=== PATIENT | male | born 1985 | race Hispanic/Latino ===

== ENCOUNTER 2020-02-18 13:26 | Inpatient (IN) | payer SELFPAY, OTHER ==
[~2020-02-18] VITALS: Ht 180.3 cm; Wt 105.4 kg
[2020-02-18] MEDS ORDERED: SODIUM CHLORIDE 0.9% 1000ML 1,000 ML IV STA ×2 (13:32→16:57)
[2020-02-18] MEDS ORDERED: CEFTRIAXONE SOD 1 GM/NS 50 ML 50 ML IV STA (13:37)
--- NOTE | 2020-02-18 13:49 | NUR ---
Pt placed on NRB mask, O2 sat up to 97%.
[2020-02-18] MEDS ORDERED: ACETAMINOPHEN 325 MG TAB PO ONE (14:00)
--- NOTE | 2020-02-18 14:00 | NUR ---
Pt taken to rm 3, 100% NRB applied, sats increased to 100% from 61% RA. 12 lead ekg performed, RT at bedside performed ABG. Temp orally 101.1. CM applied. PIV inserted, blood specimens obtained, blood cultures x 2 and respiratory testing and covid 19. Pt in no acute distress, appears flushed.
[2020-02-18 14:24] LABS: BASOPHILS % 0.3 % (0.0-1.0); HEMATOCRIT 44.6 % (38.2-49.6); LYMPHOCYTES # (AUTO) 0.4 (1.0-3.2); LYMPHOCYTES % 11.1 % (18.0-39.1); MEAN CORPUSCULAR HGB CONC 33.6 g/dL (31-35); MEAN CORPUSCULAR VOLUME 77.3 fL (81-99); MONOCYTES # (AUTO) 0.3 (0.2-0.8); MONOCYTES % 7.5 % (4.4-11.3); NEUTROPHILS # (AUTO) 3.2 (2.1-6.9); NEUTROPHILS % 79.8 % (38.7-80.0); PLATELET COUNT 241 x10e3/uL (140-360); RED BLOOD COUNT 5.77 x10e6/uL (4.3-5.7); RED CELL DISTRIBUTION WIDTH 13.9 % (11.7-14.4)
[2020-02-18 15:30] LABS: ABG HCO3 23 mmol/L (23-28); ABG PCO2 34 mmHg (41-51); ABG PH 7.44 (7.31-7.41)
[2020-02-18 15:34] LABS: CLARITY,URINE CLEAR (CLEAR); COLOR,URINE YELLOW (YELLOW); LEUKOCYTE ESTERASE ,URINE NEGATIVE (NEGATIVE); NITRITE,URINE NEGATIVE (NEGATIVE); PROTEIN,URINE DIPSTICK 1+ (NEGATIVE)
[2020-02-18 15:35] LABS: BILIRUBIN,URINE NEGATIVE (NEGATIVE); KETONES,URINE NEGATIVE (NEGATIVE); URINE UROBILINOGEN 0.2 mg/dL (0.2 - 1)
[2020-02-18 15:48] LABS: INFLUENZAE A&B ANTIGEN (RAPID) NEGATIVE (NEGATIVE)
[2020-02-18 15:49] LABS: STREPTOCOCCUS GRP A ANTIGEN NEGATIVE (NEGATIVE)
[2020-02-18 15:52] LABS: BACTERIA,URINE RARE /HPF; EPITHELIAL CELLS,URINE FEW /LPF
[2020-02-18 16:38] LABS: ALANINE AMINOTRANSFERASE 49 IU/L (0-55); ALBUMIN 3.2 g/dL (3.5-5.0); ALBUMIN/GLOBULIN RATIO 0.7 (0.8-2.0); ALKALINE PHOSPHATASE 68 IU/L (40-150); ANION GAP 18.3 mmol/L (8-16); BLOOD UREA NITROGEN 19 mg/dL (7-26); BUN/CREATININE RATIO 12 (6-25); CALCIUM 8.6 mg/dL (8.4-10.2); CARBON DIOXIDE 24 mmol/L (22-29); CHLORIDE 94 mmol/L (98-107); CREATINE KINASE 162 IU/L (30-200); CREATININE, SERUM 1.55 mg/dL (0.72-1.25); EST GLOMERULAR FILTRATION RATE 51 ML/MIN (60-); GLUCOSE 393 mg/dL (74-118); POTASSIUM 4.3 mmol/L (3.5-5.1); SODIUM 132 mmol/L (136-145)
[2020-02-18] MEDS ORDERED: SODIUM CHLORIDE 0.9% 1000ML 1,000 ML IV SCH (18:36)
--- NOTE | 2020-02-18 18:40 | Diagnostic Imaging Report ---
EXAMINATION: CT scan of the chest with contrast. TECHNIQUE: Helical CT images of the chest were performed from the lung apices to the level of the adrenal glands after the intravenous administration of 100 cc of Isovue 300. Coronal and sagittal reformatted images were obtained. Dose modulation, iterative reconstruction, and/or weight based adjustment of the mA/kV was utilized to reduce the radiation dose to as low as reasonably achievable. COMPARISON: None. CLINICAL HISTORY:Chest pain shortness breath DISCUSSION: LINES/TUBES: None. LUNGS AND AIRWAYS: Multifocal groundglass opacities throughout the lungs extending to the periphery with some areas of central sparing. PLEURA: No pneumothorax or pleural effusions. HEART AND MEDIASTINUM: The thyroid gland is normal. The heart and pericardium are within normal limits. LYMPH NODES: There is no mediastinal, hilar or axillary lymphadenopathy. ABDOMEN: Hepatic steatosis. BONES AND SOFT TISSUES: No acute bony abnormalities. IMPRESSION: Multifocal groundglass opacities throughout the lungs reflective of multifocal pneumonia. Pattern reported in viral pneumonitis. Isolation recommended. No pulmonary embolism. Signed by: Dr. Kingston Sargent M.D. on 02/18/2020 6:37 PM
[2020-02-18] MEDS ORDERED: INSULIN REGULAR, HUMAN 100 UNIT/1 ML 3ML VIAL IV ONE (18:45)
[2020-02-18] MEDS ORDERED: DEXTROSE 50% SYRINGE 50 ML IV PRN ×2 (18:45→19:30)
--- OUTSIDE RECORDS SUMMARY | 2020-02-18 18:52 | XMS REPORT ---
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 Allergies, Adverse Reactions, Alerts This patient has no known allergies or adverse reactions. Medications This patient has no known medications. Results Test Description Test Time Test Comments Text Results Atomic Results Result Comments CT CHEST W 2020-02-18 18:30:00 [place] [address] Patient Name: SUKHDEEP TINOCO MR #: [id number] : 1985 Age/Sex: 35/M Req #: [id number] Adm Physician: Ordered by: ERICH GREGG BRICKLAYER HELPER Report #: [id number] Location: ER Room/Bed: Procedure: [id number] CT/CT CHEST W Exam Date: 02/18/20 Exam Time: 1800 REPORT STATUS: Signed EXAMINATION: CT scan of the chest with contrast. TECHNIQUE: Helical CT images of the chest were performed from the lung apices to the level of the adrenal glands after the intravenous administration of 100 cc of Isovue 300. Coronal and sagittal reformatted images were obtained. Dose modulation, iterative reconstruction, and/or weight based adjustment of the mA/kV was utilized to reduce the radiation dose to as low as reasonably achievable. COMPARISON: None. CLINICAL HISTORY:Chest pain shortness breath DISCUSSION: LINES/TUBES: None. LUNGS AND AIRWAYS: Multifocal groundglass opacities throughout the lungs extending to the periphery with some areas of central sparing. PLEURA: No pneumothorax or pleural effusions. HEART AND MEDIASTINUM: The thyroid gland is normal. The heart and pericardium are within normal limits. LYMPH NODES: There is no mediastinal, hilar or axillary lymphadenopathy. ABDOMEN: Hepatic steatosis. BONES AND SOFT TISSUES: No acute bony abnormalities. IMPRES JAIRO: Multifocal groundglass opacities throughout the lungs reflective of multifocal pneumonia. Pattern reported in viral pneumonitis. Isolation recommended. No pulmonary embolism. Signed by: Dr. Edelmira Orellana M.D. on 02/18/2020 6:37 PM Dictated By: EDELMIRA ORELLANA MD 36 Transcribed By: JOANN on 02/18/201836 COPY TO: ERICH GREGG NP
--- NOTE | 2020-02-18 19:39 | NUR ---
Nursing report given to Mckenzie ROB in ICU.
--- NOTE | 2020-02-18 20:09 | Consultation ---
DATE OF CONSULTATION: Pulmonary Critical Care Consultation HISTORY OF PRESENT ILLNESS: The patient is a 35-year-old man. He has a history of diabetes, but has not been taking his medications recently. Six days ago, he developed headache. He subsequently developed some malaise and fatigue over the past several days. He had mild cough. He denies any fever at home. He went to Dr. Ferguson's office because of dizziness. He was noted to have a low saturation on his pulse oximeter as well as a fever and was sent to the emergency department. After arriving in the emergency department, he received supplemental oxygen along with IV fluids. He also received CT scan, which showed scattered infiltrates, suspicious for COVID-19. PAST SURGICAL HISTORY: History of hand surgery in 2017. PAST MEDICAL HISTORY: 1. Diabetes. 2. No prior history of asthma or other respiratory problems. SOCIAL HISTORY: The patient is not a smoker. He was an occasional drinker, but has not had anything to drink in the last month. 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 He lives with his brother. He has no recent travel. ALLERGIES: THERE ARE NO KNOWN DRUG ALLERGIES. REVIEW OF SYSTEMS: The patient denies fever at home, but he is afebrile here in the emergency department. He did have a headache. He notes dizziness. He does not complain of neck pain or swollen glands. He denies shortness of breath, but did have a mild cough. He has no chest pain. He denies nausea or vomiting. He is not having any abdominal pain. He has no leg edema or swelling. PHYSICAL EXAMINATION: VITAL SIGNS: T-max is 101.1. The pulse is 98 and the blood pressure is 105/65. Respiratory rate is 24 and saturation is 97% on 5 L. HEENT: Shows no facial swelling or erythema. LYMPHATIC: Shows no submandibular, cervical, or supraclavicular adenopathy. CARDIAC: Reveals regular rate and rhythm with normal S1 and S2. LUNGS: Auscultation of lungs reveals clear breath sounds with a few crackles at the bases. ABDOMEN: Soft and nontender. There is no rebound or guarding. EXTREMITIES: Shows no leg edema or calf tenderness. There is no cyanosis or clubbing. SKIN: Shows no rashes. NEUROLOGICAL: Shows no focal abnormalities. LABORATORY DATA: White blood cell count is 3.98 and the hemoglobin is 15. The MCV is 77 and the platelet count is 241. The BUN to creatinine ratio is 19 to 1.55 and the blood sugar is 308. He has a carbon dioxide of 24 and a slightly increased anion gap of 16. Total bilirubin is 1.3 and the AST is 58. PH on the blood gas is 7.44 and the CO2 is 34. The carbon dioxide is 23. Urinalysis shows no ketones, but the urine specific gravity of 1.030 and the white blood cell count is 10 to 20. Flu swab is negative. RADIOGRAPHIC DATA: CT scan shows multifocal ground-glass opacities to the lungs, suggestive of multifocal pneumonia. IMPRESSION: 1. Pneumonia with sepsis, present on admission. 2. Diabetes out of control. 3. Possible viral syndrome 4. Acute kidney injury. PLAN: 1. The patient will receive IV antibiotics for community-acquired pneumonia. 2. The patient will receive viral serology testing including COVID-19. 3. Lactic acid and IV fluids. 4. Monitor and control blood sugars. 5. Give oxygen as needed. Severiano Crow MD [facility] /[id number] MTDD
[2020-02-18] MEDS ORDERED: IOPAMIDOL 370 MG/ML 200 ML INFUS..BTL INJ ONE (20:21)
[2020-02-18] MEDS ORDERED: SODIUM CHLORIDE 0.9% 50ML 50 ML ONE (20:21)
[2020-02-18] MEDS: AZITHROMYCIN 500MG/NS 250 ML 250 ML IV SCH (20:25)
[2020-02-18] MEDS: INSULIN REGULAR, HUMAN 100 UNIT/1 ML 3ML VIAL SQ SCH (20:28)
[2020-02-18 20:30] VITALS: BP 120/85
[2020-02-18 20:43] LABS: LYMPHOCYTES % (MANUAL) 9 % (19-48); MONOCYTES % (MANUAL) 5 % (3.4-9.0); NEUTROPHILS % (MANUAL) 86 % (40-74)
[2020-02-18] MEDS ORDERED: ZOLPIDEM TARTRATE 5 MG TAB PO PRN (21:00)
[2020-02-18] MEDS ORDERED: INSULIN LISPRO 100 UNIT/1 ML 3ML VIAL SQ SCH (21:00)
[2020-02-18 21:30] VITALS: BP 120/85
[2020-02-18 22:00] VITALS: BP 122/82
[2020-02-18 23:00] VITALS: BP 105/76
[2020-02-19] VITALS (20 sets, daily range): BP systolic 71–163; BP diastolic 43–99
[2020-02-19 01:16] LABS: CREATINE KINASE 107 IU/L (30-200)
[2020-02-19 05:30] LABS: BASOPHILS % 0.3 % (0.0-1.0); HEMATOCRIT 37.3 % (38.2-49.6); HEMOGLOBIN 12.5 g/dL (14.0-18.0); LYMPHOCYTES # (AUTO) 0.5 (1.0-3.2); LYMPHOCYTES % 14.6 % (18.0-39.1); MEAN CORPUSCULAR HGB CONC 33.5 g/dL (31-35); MEAN CORPUSCULAR VOLUME 77.5 fL (81-99); MONOCYTES # (AUTO) 0.2 (0.2-0.8); MONOCYTES % 6.1 % (4.4-11.3); NEUTROPHILS # (AUTO) 2.6 (2.1-6.9); NEUTROPHILS % 78.4 % (38.7-80.0); PLATELET COUNT 204 x10e3/uL (140-360); RED BLOOD COUNT 4.81 x10e6/uL (4.3-5.7); RED CELL DISTRIBUTION WIDTH 14.2 % (11.7-14.4)
[2020-02-19 05:58] LABS: ALANINE AMINOTRANSFERASE 36 IU/L (0-55); ALBUMIN 2.4 g/dL (3.5-5.0); ALBUMIN/GLOBULIN RATIO 0.7 (0.8-2.0); ALKALINE PHOSPHATASE 49 IU/L (40-150); ANION GAP 11.4 mmol/L (8-16); BLOOD UREA NITROGEN 15 mg/dL (7-26); BUN/CREATININE RATIO 18 (6-25); CALCIUM 7.7 mg/dL (8.4-10.2); CARBON DIOXIDE 24 mmol/L (22-29); CHLORIDE 107 mmol/L (98-107); CREATININE, SERUM 0.84 mg/dL (0.72-1.25); EST GLOMERULAR FILTRATION RATE > 60 ML/MIN (60-); GLUCOSE 184 mg/dL (74-118); POTASSIUM 4.4 mmol/L (3.5-5.1); SODIUM 138 mmol/L (136-145)
[2020-02-19] MEDS: ACETAMINOPHEN 325 MG TAB PO PRN ×4 (06:14→19:44)
[2020-02-19 06:29] LABS: CREATINE KINASE 100 IU/L (30-200)
[2020-02-19] MEDS: INSULIN REGULAR, HUMAN 100 UNIT/1 ML 3ML VIAL SQ SCH ×4 (08:32→22:13)
--- NOTE | 2020-02-19 08:49 | Diagnostic Imaging Report ---
EXAMINATION: CHEST SINGLE (PORTABLE) INDICATION: ^bilateral multifocal pneumonia ^[id number] ^0815 ^Y COMPARISON: CT chest 02/18/2020 FINDINGS: AP view TUBES and LINES: None. LUNGS: Lungs are well inflated. Persistent bilateral, right greater than left, alveolar opacities. PLEURA: No pleural effusion or pneumothorax. HEART AND MEDIASTINUM: The cardiomediastinal silhouette is unremarkable.. BONES AND SOFT TISSUES: Chronic posttraumatic deformity of the right clavicle. Soft tissues are unremarkable. UPPER ABDOMEN: No free air under the diaphragm. IMPRESSION: Persistent multifocal alveolar opacities with a CT pattern highly suggestive of viral pneumonia. Signed by: Dr. Alexandria Monique M.D. on 02/19/2020 8:46 AM
[2020-02-19] MEDS ORDERED: HYDROXYCHLOROQUINE SULFATE 200 MG TAB PO SCH (09:00)
[2020-02-19] MEDS ORDERED: HYDROXYCHLOROQUINE SULFATE 200 MG TAB PO ONE ×4 (09:30→21:00)
[2020-02-19 09:45] LABS: ABG PCO2 31 mmHg (41-51); ABG PH 7.47 (7.31-7.41)
[2020-02-19 09:46] LABS: ABG HCO3 22 mmol/L (23-28)
--- NOTE | 2020-02-19 10:31 | History and Physical ---
CHIEF COMPLAINT: "I have a headache and I am dizzy." HISTORY OF PRESENT ILLNESS: This is a 35-year-old man, who presents to [facility] with a 6-day history of headaches. The patient states that 2 days prior to admission, he began experiencing dizziness with the headaches. The patient was referred from his primary care physician's office, namely Dr. Chopra to [facility] Emergency Room for further evaluation and treatment. On arrival in the emergency room, the patient was found to be febrile as well as hypoxic. The patient states that shortness of breath, cough, and fever started here when he was in the emergency room at [facility]. On admission, the patient was found to have white blood cell count of 3900 with 79% segmented neutrophils. On admission, the patient's BUN and creatinine were 19 and 1.55 respectively. The patient is a diabetic, but states he has been off his insulin for at least a year and a half. His hemoglobin A1c was 10.7%. The patient's oxygen saturation on admission was 74% on room air. His maximum temperature over the last 24 hours was 101.7. The patient had a chest CT in the emergency room that revealed findings consistent with multifocal ground-glass opacities throughout the lungs, reflective of multifocal pneumonia. The radiologist felt that the this lung pattern could also be seen with viral pneumonitis. The patient is admitted to the intensive care unit under strict isolation protocol. REVIEW OF SYSTEMS: GENERAL: The patient states he has lost 10 to 15 pounds over the last year unintentionally. Fever and chills began yesterday on admission. The patient states that dizziness for at least a week. HEENT: The patient states he had frontal headache since February 12, 2020. Denies any visual changes. CARDIOVASCULAR/RESPIRATORY: The shortness of breath and cough began yesterday on admission on February 18, 2020. GI: No nausea, vomiting, or constipation. : Denies any UTI symptoms, but he states he does urinate frequently. NEUROMUSCULAR: No limb weakness or numbness, but once again he states he has had dizziness for almost a week. PAST MEDICAL HISTORY: Uncontrolled type 2 diabetes mellitus. PAST SURGICAL HISTORY: Left hand surgery. FAMILY HISTORY: Multiple family members with diabetes mellitus. SOCIAL HISTORY: The patient states he works at a local [employer] ref[employer]. Denies any tobacco use, but states he drinks alcohol socially. The patient is single. He lives with his brother. The patient denies any recent travel. ALLERGIES: NO KNOWN DRUG ALLERGIES. HOME MEDICATIONS: None. PHYSICAL EXAMINATION: GENERAL: He is awake and alert. He is fully oriented. Does not appear to be in any obvious respiratory distress. VITAL SIGNS: Height 5 feet 11 inches, weight 210 pounds, BMI 29. Blood pressure at this time is 130/88, pulse is 96, respiratory rate is 24, and oxygen saturation 98% on a non-rebreather mask, FiO2 100%. INTEGUMENT: Skin is warm and dry. No pallor, jaundice, or diaphoresis. HEENT: Anicteric sclerae. Moist mucous membranes. NECK: Supple. No evidence of jugular venous distention. CARDIOVASCULAR: Distant heart sounds. Tachycardic rate. Regular rhythm. LUNGS: The patient has coarse breath sounds bilaterally. ABDOMEN: Benign. EXTREMITIES: No edema or deformity. NEURO: Intact. DIAGNOSES: 1. Sepsis secondary to bilateral pneumonia. 2. Leukopenia secondary to sepsis. 3. Type 2 diabetes mellitus (uncontrolled). 4. Acute renal insufficiency, likely secondary to acute tubular necrosis. 5. Viral syndrome, likely. a. We will order COVID-[address] testing[address] the patient in a negative pressure room with strict isolation protocol. c. Start intravenous fluids to correct the patient's acute renal insufficiency. d. Blood glucose control. e. Start intravenous antibiotics. f. Consult Infectious Disease specialist. g. Consult a loan documentation specialist. h. We will order antipyretics for the patient's fever. Spent 75 minutes in the care of this intensive care unit patient. MD OLVIN Blackburn/FREDY /[id number] MTDJj
[2020-02-19] MEDS ORDERED: BENZOCAINE/TETRACAINE/BUTAMBEN AERO SPRAY 56 GM CAN TOP ONE (10:45)
[2020-02-19] MEDS ORDERED: PROPOFOL IV EMULSION 10MG/ML 100 ML ONE ×2 (10:46→12:50)
--- NOTE | 2020-02-19 11:00 | NUR ---
Spoke with patient regarding the need to intubate per Dr Terra Crow; he states that he is agreeable if it is indicated and that his brother, Thomas, is the next of kin that will be making medical decisions if he is unable.
[2020-02-19] MEDS ORDERED: SODIUM CHLORIDE 0.9% 1000ML 1,000 ML ONE (11:22)
[2020-02-19] MEDS ORDERED: MIDAZOLAM HCL 2 MG/2 ML VIAL ONE ×3 (11:35→14:54)
--- NOTE | 2020-02-19 11:36 | Operative Report ---
DATE OF PROCEDURE: SURGEON: Severiano Crow MD PROCEDURE: Endotracheal intubation. PREOPERATIVE DIAGNOSES: Viral pneumonia and respiratory failure. POSTOPERATIVE DIAGNOSES: Viral pneumonia and respiratory failure. CONSENT: Consent was obtained from the patient and the brother. MEDICATIONS: Versed 3 mg, Cetacaine spray, etomidate 20 mg, and succinylcholine 100 mg. DESCRIPTION OF PROCEDURE: The patient was placed in a supine position. He was preoxygenated with an Ambu bag. His O2 saturation was increased to 98%. He received Versed followed by etomidate and succinylcholine. A GlideScope was used to visualize the glottis. An 8.0 endotracheal tube was passed through the glottis on the first attempt. The stylet was removed. There was good CO2 return. There were equal breath sounds bilaterally. The patient's saturation remained above 90% throughout the procedure and the patient remained hemodynamically stable. COMPLICATIONS: None. ESTIMATED BLOOD LOSS: None. Severiano Crow MD [facility] /[id number]
[2020-02-19] MEDS ORDERED: NOREPINEPHRINE 8 MG/D5W 250 ML 250 ML ONE (11:59)
--- NOTE | 2020-02-19 12:21 | Diagnostic Imaging Report ---
EXAMINATION: CHEST SINGLE (PORTABLE) INDICATION: ^intubation ^[id number] ^1130 COMPARISON: Chest radiograph 02/19/[address] chest 02/18/2020 FINDINGS: AP view TUBES and LINES: Interval intubation with endotracheal tip overlying the mid trachea, 4.5 cm above the latasha. Interval placement of NG/OG tube with tip overlying the distal gastric body. LUNGS: Lungs are well inflated. Persistent severe right greater than left groundglass consolidations. PLEURA: No pleural effusion or pneumothorax. HEART AND MEDIASTINUM: The cardiomediastinal silhouette is unremarkable.. BONES AND SOFT TISSUES: No acute osseous lesion. Soft tissues are unremarkable. UPPER ABDOMEN: No free air under the diaphragm. IMPRESSION: Interval placement of NG/O NG tube and endotracheal tube which appear in adequate position. Persistent bilateral, right greater than left, consolidations highly concerning for viral pneumonia. Correlate with viral panel results. Signed by: Dr. Alexandria Monique M.D. on 02/19/2020 12:17 PM
[2020-02-19] MEDS ORDERED: MIDAZOLAM HCL 2 MG/2 ML VIAL IV STA ×2 (12:22)
--- NOTE | 2020-02-19 12:26 | Diagnostic Imaging Report ---
EXAM: Abdomen 1 Views INDICATION: ^Gastric tube placement ^[id number] ^1130 COMPARISON: Chest radiograph 02/19/2020 FINDINGS: Lines/tubes: Interval placement of NG/OG tube with tip overlying the distal gastric body. Mild amount of stool in the colon. No dilated loops of small bowel. No renal calculi. No abnormal soft tissue masses. Mild degenerative changes in the lumbar spine and pelvis. IMPRESSION: Interval placement of NG/OG tube with tip overlying the distal gastric body. Signed by: Dr. Alexandria Monique M.D. on 02/19/2020 12:23 PM
--- NOTE | 2020-02-19 13:42 | NUR ---
Patient's brother, Thomas, updated on condition. Physician at the bedside attempting Arterial line. Patient is 100% O2 sats on Mechanical ventilator, sedated.
[2020-02-19] MEDS ORDERED: ETOMIDATE 2 MG/ML 10 ML INJ IV ONE (14:54)
[2020-02-19] MEDS ORDERED: VECURONIUM BROMIDE FOR INJ 20 MG VIAL ONE (14:54)
[2020-02-19] MEDS ORDERED: SUCCINYLCHOLINE CHLORIDE 20 MG/ML 10ML VIAL ONE (14:54)
--- NOTE | 2020-02-19 17:43 | Consultation ---
DATE OF CONSULTATION: 02/19/2020 REASON FOR ADMISSION: Sepsis, pneumonia, rule out COVID-19. HISTORY OF PRESENT ILLNESS: This patient is a 35-year-old male with history of diabetes mellitus, on insulin. He has not filled his medication for more than 1 year, comes in with fever, chills, malaise, and not feeling well. He was hypoxemic at his doctor office. He was seen in the emergency room. In the emergency room, he received oxygen, IV fluids, IV antibiotic. A CT of the chest showed scattered infiltrates. There was concern about COVID-19 since we are in the middle of outbreak, so the patient has been admitted. He was admitted to the intensive care unit. Unfortunately within 2 hours, he had to be intubated. He is currently on a vent. PAST SURGICAL HISTORY: He had hand surgery in 2017. PAST MEDICAL HISTORY: Diabetes mellitus. ALLERGIES: NKA. SOCIAL HISTORY: There is no smoking, drug abuse, or alcohol abuse. FAMILY HISTORY: Otherwise noncontributory. REVIEW OF SYSTEMS: Could not be obtained. LABORATORY DATA: All reviewed. Blood cultures and urine cultures are still pending. When he first came, his white count was 3.98, hemoglobin 15, hematocrit 44, his platelet count of 41. His sodium 138, potassium 4.4, creatinine 0.84, AST of 39. His respiratory viral panel is pending. Influenza A is negative. Strep A is negative. COVID-19 is pending. MEDICATION LIST: He is currently on azithromycin and Rocephin. PHYSICAL EXAMINATION: GENERAL: He is intubated currently. VITAL SIGNS: T-max of 101.7. HEENT: Not icteric. NECK: Supple. CHEST: Few crackles. HEART: S1, S2. No murmurs. ABDOMEN: Soft. IMPRESSION: Sepsis on admission, pneumonia present on admission, respiratory failure, diabetes mellitus. Agree with IV fluid. Agree with supportive care. Agree with Rocephin and azithromycin since probably dealing with a community-acquired pneumonia. Agree with supportive care. We will follow up clinically. MD HARVEY Alexis/FREDY /[id number]
[2020-02-19] MEDS: CEFTRIAXONE SOD 1 GM/NS 50 ML 50 ML IV SCH (18:26)
[2020-02-19] MEDS: AZITHROMYCIN 500MG/NS 250 ML 250 ML IV SCH (18:27)
[2020-02-19] MEDS ORDERED: SODIUM CHLORIDE 0.45% 1,000 ML IV SCH (19:15)
[2020-02-19] MEDS ORDERED: SODIUM CHLORIDE 0.9% 500ML 500 ML ONE ×2 (19:40→20:58)
[2020-02-19] MEDS: FENTANYL CITRATE INJ 2,000 MCG in SODIUM CHLORIDE 0.9% 250ML 210 ML IV PRN (21:11)
[2020-02-19] MEDS: MIDAZOLAM HCL 25 MG in SODIUM CHLORIDE 0.9% 50ML 45 ML IV PRN (21:11)
[2020-02-19] MEDS ORDERED: NOREPINEPHRINE 8 MG/D5W 250 ML 250 ML IV PRN (21:30)
--- NOTE | 2020-02-19 21:44 | NUR ---
art line to L arm, spoke with MD Crow regarding placing PICC same side, MD Crow okay with PICC placed on same extremity
[2020-02-19 22:43] LABS: ABG HCO3 23 mmol/L (23-28); ABG PCO2 37 mmHg (41-51)
[2020-02-19 22:44] LABS: ABG BASE EXCESS -1.6 mmol/L (-2 - 3)
[2020-02-20] VITALS (25 sets, daily range): BP systolic 85–130; BP diastolic 55–95
--- NOTE | 2020-02-20 00:07 | Diagnostic Imaging Report ---
EXAMINATION: CHEST SINGLE (PORTABLE) INDICATION: PICC line placement, verify position COMPARISON: Chest CT 02/18/2020 FINDINGS: TUBES and LINES: New left IJ CVC, tip in the right superior cavoatrial junction. ET tube tip terminates 4.8 cm above latasha. Enteric tube courses into abdomen, tip out of field of view. LUNGS: Normal lung volumes. Persistent right lung and left mid/lower lung haziness. PLEURA: No pleural effusion or pneumothorax. HEART AND MEDIASTINUM: The cardiomediastinal silhouette is unremarkable. BONES AND SOFT TISSUES: No acute osseous lesion. Soft tissues are unremarkable. UPPER ABDOMEN: No free air under the diaphragm. IMPRESSION: New left IJ CVC, tip in the right superior cavoatrial junction. Persistent findings of multifocal pneumonia concerning for viral pneumonia. Findings were discussed with ICU nurse at 11:40 PM on 02/20/[address] Romo via telephone. Signed by: Joseph Romo DO on 02/20/2020 12:04 AM
[2020-02-20] MEDS: MIDAZOLAM HCL 25 MG in SODIUM CHLORIDE 0.9% 50ML 45 ML IV PRN ×3 (01:00→23:30)
[2020-02-20] MEDS: ACETAMINOPHEN 325 MG TAB PO PRN ×2 (04:34→20:31)
[2020-02-20 05:07] LABS: HEMATOCRIT 36.2 % (38.2-49.6); HEMOGLOBIN 11.7 g/dL (14.0-18.0); LYMPHOCYTES # (AUTO) 0.6 (1.0-3.2); LYMPHOCYTES % 15.5 % (18.0-39.1); MEAN CORPUSCULAR HEMOGLOBIN 25.8 pg (28-32); MEAN CORPUSCULAR HGB CONC 32.3 g/dL (31-35); MEAN CORPUSCULAR VOLUME 79.9 fL (81-99); MONOCYTES # (AUTO) 0.2 (0.2-0.8); MONOCYTES % 5.1 % (4.4-11.3); NEUTROPHILS # (AUTO) 3.1 (2.1-6.9); NEUTROPHILS % 78.9 % (38.7-80.0); PLATELET COUNT 218 x10e3/uL (140-360); RED BLOOD COUNT 4.53 x10e6/uL (4.3-5.7); RED CELL DISTRIBUTION WIDTH 14.6 % (11.7-14.4)
[2020-02-20 05:36] LABS: ALANINE AMINOTRANSFERASE 30 IU/L (0-55); ALBUMIN 2.1 g/dL (3.5-5.0); ALBUMIN/GLOBULIN RATIO 0.6 (0.8-2.0); ALKALINE PHOSPHATASE 50 IU/L (40-150); ANION GAP 10.4 mmol/L (8-16); BLOOD UREA NITROGEN 17 mg/dL (7-26); BUN/CREATININE RATIO 18 (6-25); CALCIUM 7.8 mg/dL (8.4-10.2); CARBON DIOXIDE 23 mmol/L (22-29); CHLORIDE 112 mmol/L (98-107); CREATININE, SERUM 0.92 mg/dL (0.72-1.25); EST GLOMERULAR FILTRATION RATE > 60 ML/MIN (60-); GLUCOSE 129 mg/dL (74-118); POTASSIUM 4.4 mmol/L (3.5-5.1); SODIUM 141 mmol/L (136-145)
[2020-02-20] MEDS: INSULIN REGULAR, HUMAN 100 UNIT/1 ML 3ML VIAL SQ SCH ×4 (07:30→21:00)
[2020-02-20] MEDS ORDERED: MIDAZOLAM HCL 2 MG/2 ML VIAL ONE (08:22)
[2020-02-20] MEDS ORDERED: VECURONIUM BROMIDE FOR INJ 20 MG VIAL ONE (08:30)
[2020-02-20] MEDS ORDERED: VECURONIUM BROMIDE FOR INJ 20 MG VIAL IV ONE (09:00)
[2020-02-20] MEDS: ENOXAPARIN SOD INJ 40 MG/0.4 ML SYR SC SCH (09:01)
[2020-02-20] MEDS: HYDROXYCHLOROQUINE SULFATE 200 MG TAB PO SCH ×2 (09:01→17:35)
--- NOTE | 2020-02-20 10:14 | Progress Note ---
DATE: 02/20/2020 CHIEF COMPLAINT/HISTORY OF PRESENT ILLNESS: This is a 35-year-old man, whose primary treating diagnosis is acute respiratory failure secondary to bilateral pneumonia. He was intubated yesterday, placed on a ventilator because of acute respiratory failure secondary to profound hypoxia. Chest x-ray performed yesterday on February 19, 2020, revealed persistent findings of multifocal pneumonia concerning for viral pneumonia. Today, the patient was found to have white blood cell count of 3900 with 78% segmented neutrophils and 50% lymphocytes. The patient's COVID-19 test by PCR is still pending. Today's blood chemistries were unremarkable. The patient's BUN and creatinine are 17 and 0.92 respectively. REVIEW OF SYSTEMS: As per HPI. PHYSICAL EXAMINATION: GENERAL: He is sedated on a ventilator. VITAL SIGNS: Blood pressure is 106/66, pulse is 102, and respiratory rate is 26. He is on a ventilator AC mode. Tidal volume is 400 mL. FiO2 is 75%. His oxygen saturation is 100%. Temperature is 101.7. INTEGUMENT: Skin is warm and dry. No pallor, jaundice, or diaphoresis. HEENT: Anicteric sclerae. Moist mucous membranes. He has an endotracheal tube and orogastric tube in place. NECK: Supple. CARDIOVASCULAR: Tachycardic rate. LUNGS: The patient has coarse breath sounds bilaterally. ABDOMEN: Benign. EXTREMITIES: No edema or deformity. NEUROLOGIC: Intact. DIAGNOSES: 1. Sepsis secondary to bilateral pneumonia. 2. Leukopenia secondary to sepsis. 3. Type 2 diabetes mellitus (uncontrolled). 4. Acute renal insufficiency, resolved. 5. Viral syndrome, likely. PLAN: 1. Follow COVID-19 testing. 2. Respiratory care. 3. Continue to oxygenate aggressively with ventilator. 4. Continue intravenous antibiotics. 5. Appreciate Infectious Disease input. 6. Appreciate client services specialist input. 7. Continue antipyretics for the patient's fever. 8. We will continue hydroxychloroquine 200 mg twice a day in conjunction with intravenous azithromycin for the patient's likely COVID-19 infection. I spent 35 minutes in the care of this intensive care unit patient. MD OLVIN Blackburn/FREDY /[id number] SHERIF
[2020-02-20] MEDS ORDERED: ACETAMINOPHEN 1000 MG/100 ML IV ONE (12:00)
[2020-02-20 12:02] LABS: ABG PCO2 37 mmHg (41-51); ABG PH 7.37 (7.31-7.41)
[2020-02-20 12:03] LABS: ABG BASE EXCESS -3.7 mmol/L (-2 - 3); ABG HCO3 114 mmol/L (23-28)
--- NOTE | 2020-02-20 13:20 | Progress Note ---
DATE: SUBJECTIVE: The patient remains on assist-control mode of ventilation. He did require some Levophed last night to maintain an adequate blood pressure. He is urinating. He continues to have some fevers. PHYSICAL EXAMINATION: VITAL SIGNS: The blood pressure is 101.2 and the pulse is 96. The blood pressure is 95/60, and saturation is 93%. He is on PRVC mode of ventilation, rate of 22 with a tidal volume of 400 and 12 of PEEP. His FiO2 is set at 65%. HEENT: He has no facial swelling or erythema. CARDIAC: Reveals a regular rate and rhythm with normal S1, S2. There are crackles at the bases. There is a line in place. There is a PICC line in place. ABDOMEN: Soft, nontender. There is no rebound or guarding. EXTREMITIES: Show no leg edema or calf tenderness. LABORATORY DATA: White blood cell count is 3.9 and hemoglobin is 11.7, and the platelet count is 218. BUN and creatinine ratio is normal. The other electrolytes are within normal limits. IMPRESSION: 1. Acute respiratory failure. 2. Acute respiratory distress syndrome. 3. Bilateral pneumonia. 4. Diabetes, out of control. PLAN: 1. Continue current antimicrobial regimen. 2. Decrease FiO2 as tolerated. 3. Continue Versed and fentanyl for sedation. 4. Enteral feedings. 5. DVT prophylaxis. 6. Continue to monitor and control blood sugars. 7. Case discussed with Dr. Chau, nursing, Respiratory, and Dr. Hillman of Infectious Disease. Greater than 35 minutes in direct critical care time. Severiano Crow MD [facility] /[id number]
[2020-02-20] MEDS: CEFTRIAXONE SOD 1 GM/NS 50 ML 50 ML IV SCH (16:00)
[2020-02-20] MEDS ORDERED: VANCOMYCIN 1GM/NS 250 ML 250 ML IV SCH ×2 (18:00→21:00)
[2020-02-20] MEDS: AZITHROMYCIN 500MG/NS 250 ML 250 ML IV SCH (18:13)
[2020-02-20] MEDS: CEFEPIME 1GM/NS 0.9% 50 ML 50 ML IV SCH (22:41)
[2020-02-20] MEDS: FENTANYL CITRATE INJ 2,000 MCG in SODIUM CHLORIDE 0.9% 250ML 210 ML IV PRN (23:30)
[2020-02-21] VITALS (27 sets, daily range): BP systolic 86–151; BP diastolic 53–78
--- NOTE | 2020-02-21 00:20 | NUR ---
ATTEMPTED TO NOTIFY DR. Terra CABRAL OF COVID TEST RESULTS. NO ANSWER. WILL TRY AGAIN IN AM. PT STABLE AT THIS TIME. ORDER FOR VENT CHANGES WAS PREVIOUSLY PLACED, VENT CHANGES MADE AND PT TOLERATING WELL. WILL CONTINUE TO MONITORY.
[2020-02-21 01:02] LABS: ABG BASE EXCESS -5.8 mmol/L (-2 - 3); ABG HCO3 20 mmol/L (23-28); ABG PCO2 38 mmHg (41-51); ABG PH 7.33 (7.31-7.41)
[2020-02-21] MEDS: MIDAZOLAM HCL 25 MG in SODIUM CHLORIDE 0.9% 50ML 45 ML IV PRN ×4 (04:45→10:00)
[2020-02-21 05:09] LABS: BASOPHILS % 0.2 % (0.0-1.0); EOSINOPHILS % 0.2 % (0.0-6.0); HEMATOCRIT 34.6 % (38.2-49.6); HEMOGLOBIN 10.8 g/dL (14.0-18.0); LYMPHOCYTES # (AUTO) 0.5 (1.0-3.2); LYMPHOCYTES % 11.6 % (18.0-39.1); MEAN CORPUSCULAR HEMOGLOBIN 25.4 pg (28-32); MEAN CORPUSCULAR HGB CONC 31.2 g/dL (31-35); MEAN CORPUSCULAR VOLUME 81.4 fL (81-99); MONOCYTES # (AUTO) 0.3 (0.2-0.8); NEUTROPHILS # (AUTO) 3.6 (2.1-6.9); NEUTROPHILS % 81.3 % (38.7-80.0); PLATELET COUNT 218 x10e3/uL (140-360); RED BLOOD COUNT 4.25 x10e6/uL (4.3-5.7)
[2020-02-21 05:28] LABS: INR 1.12; PROTHROMBIN TIME 15.1 seconds (11.9-14.5)
[2020-02-21 05:29] LABS: PARTIAL THROMBOPLASTIN TIME 39.4 seconds (23.8-35.5)
[2020-02-21 05:58] LABS: ALANINE AMINOTRANSFERASE 23 IU/L (0-55); ALBUMIN 1.9 g/dL (3.5-5.0); ALBUMIN/GLOBULIN RATIO 0.5 (0.8-2.0); ALKALINE PHOSPHATASE 44 IU/L (40-150); ANION GAP 12.6 mmol/L (8-16); BUN/CREATININE RATIO 21 (6-25); CARBON DIOXIDE 21 mmol/L (22-29); CHLORIDE 114 mmol/L (98-107); CREATININE, SERUM 1.34 mg/dL (0.72-1.25); EST GLOMERULAR FILTRATION RATE > 60 ML/MIN (60-); GLUCOSE 138 mg/dL (74-118); POTASSIUM 4.6 mmol/L (3.5-5.1); SODIUM 143 mmol/L (136-145)
[2020-02-21 06:03] LABS: BLOOD UREA NITROGEN 28 mg/dL (7-26)
[2020-02-21] MEDS: CEFEPIME 1GM/NS 0.9% 50 ML 50 ML IV SCH ×3 (06:07→22:50)
--- NOTE | 2020-02-21 06:26 | NUR ---
NOTIFIED DR. Terra CABRAL @0600 OF COVID TEST RESULTS & CHANGE IN RENAL LABS FROM PREVIOUS LAB RESULTS. NEW ORDERS RECEIVED TO DECREASE FI02 TO 50, ADMINISTER 1L SODIUM CHLORIDE 0.45% @ 100 CC/HR. START TUBE FEEDINGS: GLUCERNA @ 20CC/HR WITH FREE WATER FLUSHES 100CC/Q4. ORDERS PLACED AND IMPLEMENTED. NOTIFIED DR. MENDEZ @ 0610 OF COVID TEST RESULTS. NO NEW ORDERS RECEIVED. NOTIFIED DR. KUMAR @ 0615 OF COVID TEST RESULTS. NO NEW ORDERS RECEIVED.
[2020-02-21] MEDS ORDERED: PROPOFOL IV EMULSION 10MG/ML 100 ML IV SCH (07:00)
[2020-02-21] MEDS: INSULIN REGULAR, HUMAN 100 UNIT/1 ML 3ML VIAL SQ SCH ×3 (07:30→18:24)
[2020-02-21] MEDS: SODIUM CHLORIDE 0.45% 1,000 ML IV ONE ×2 (07:42→07:56)
[2020-02-21] MEDS ORDERED: VECURONIUM BROMIDE FOR INJ 20 MG VIAL IV STA (08:00)
[2020-02-21] MEDS ORDERED: PROPOFOL IV EMULSION 10MG/ML 100 ML ONE (08:13)
[2020-02-21] MEDS ORDERED: VECURONIUM BROMIDE FOR INJ 20 MG VIAL ONE (08:14)
--- NOTE | 2020-02-21 08:58 | NUR ---
0745, sedation gtt increased as patient desating. administered once vec for paralytic. pt sats improved after vent changes and vec ivp administered. in room interventions ordered as above.
[2020-02-21] MEDS: HYDROXYCHLOROQUINE SULFATE 200 MG TAB PO SCH ×2 (09:34→21:45)
[2020-02-21] MEDS: ENOXAPARIN SOD INJ 40 MG/0.4 ML SYR SC SCH (09:34)
[2020-02-21] MEDS: FENTANYL CITRATE INJ 2,000 MCG in SODIUM CHLORIDE 0.9% 250ML 210 ML IV PRN ×3 (10:00→22:50)
--- NOTE | 2020-02-21 10:09 | Progress Note ---
DATE: 02/21/2020 CHIEF COMPLAINT/HISTORY OF PRESENT ILLNESS: This is a 35-year-old man, whose primary treating diagnosis is acute COVID-19, viral pneumonia. He is currently on a ventilator because of acute hypoxic respiratory failure. Blood work today reveals a white blood cell count of 4400 with 81% segmenters. Hemoglobin is 10.8 g/dL. The patient's BUN and creatinine today are 28 and 1.34. Albumin is 1.9. This morning, the patient was found to be novel coronavirus positive by PCR.. REVIEW OF SYSTEMS: As per HPI. PHYSICAL EXAMINATION: GENERAL: He is sedated and paralyzed. VITAL SIGNS: He is currently on ventilator AC mode. Oxygen saturation is 97% on FiO2 of 50%, heart rate is 110, respiratory rate 26, blood pressure is 130/78, and temperature is 100.2. INTEGUMENT: Skin is warm and dry. No pallor, jaundice, or diaphoresis. No wound breakdown or ulcerations appreciated. HEENT: Anterior sclerae. The patient has an endotracheal tube and orogastric tube in place. NECK: Supple. CARDIOVASCULAR: Tachycardic rate. LUNGS: Coarse breath sounds and crackles at the bases. ABDOMEN: Benign. EXTREMITIES: No edema or deformity. NEUROLOGIC: He is currently sedated and paralyzed. DIAGNOSES: 1. Sepsis, secondary to acute COVID-19 viral infection. 2. Acute COVID-19 bilateral pneumonia. 3. Leukopenia, secondary to COVID-19 infection. 4. Type 2 diabetes. 5. Acute renal insufficiency, likely secondary to acute tubular necrosis. PLAN: 1. Continue respiratory care as per geothermal powerplant mechanic helper orders. 2. Continued oxygen aggressively with ventilator. 3. Continue intravenous antibiotics. 4. Appreciate Infectious Disease input. 5. Appreciate wound care specialist input. 6. Continue antipyretics for the patient's fever. 7. Agree Glucerna tube feeding to help optimize the patient's nutritional status. 8. Continue hydroxychloroquine 200 mg twice a day in conjunction with intravenous azithromycin to treat the patient's acute COVID-19 infection. I spent 30 minutes in the care of this intensive care unit patient. MD OLVIN Blackburn/MODL /[id number] SHERIF
--- NOTE | 2020-02-21 11:45 | NUR ---
late entery 02/19 [id number]
--- NOTE | 2020-02-21 11:48 | NUR ---
Nutrition Intervention Note RD Recommendation(s) for Physician: -TF recommendation via NGT: Trickle feeds Vital HP at 20 ml/hr advance as tolerated and when medically feasible to goal rate of 70 ml/hr (1680 kcal, 147 gram protein) -Propofol rate is unknown, recommend trickle feeds of 10-20 ml/hr of TF until medically feasible to raise rate. -IVF management and flushes per MD. -ADAT to 1800 calorie carb controlled diet per MD when extubated and medically feasible. Plan of Care: RD following, monitoring for tolerance and adequacy. TF recs. Nutrition reason for involvement: (Diet-TF) RD Assessment 02/20: 35 YOM admitted for hypoxemia, hyperglycemia with PMH listed below. Physical visit was deferred d/t hospitals infection disease policy. Pt is intubated on fentanyl and propofol. Pt is not on pressors as of now. The nurse reported the pt was ordered pressors over the weekend but has not needed it today. Nurse reported possible ARDS, they have not had to place the pt in the prone position yet. Pt was ordered Glucerna 1.2 at 20 ml/hr advance to goal rate of 60 ml/hr with 100 ml of water every 4 hours (1728 kcal, 86gram protein) . RD recommendations provided above and given to nurse. Unaware of propofol rate d/t not being able to enter the room and nurse not knowing at current time. Nurse reported the pt is currently on 20 ml/hr of Glucerna 1.2. Will continue to monitor. Principal Problems/Diagnoses: hypoxemia, hyperglycemia PMH: Uncontrolled type 2 diabetes mellitus. GI: LBM: 02/19 Skin: no wound assessment recorded Labs: 02/20: Cl 114, CO2 21, Creat 1.34, Gluc 138, Ca 8 Meds: fentanyl, abx, propofol, insulin levo pr IVF: NS at 100 ml/hr Ht:71 in Wt:213 lb BMI:29.7kg/m^2 IBW:172 lbs Malnutrition Evaluation (02/20) -unable to perform nutrition assessment Nutrition Prescription (Diet Order):Glucerna 1.2 at 20 ml/hr, goal 60 ml/hr Estimated Nutritional Needs: Calories: 1560-1950kcal/day (20- 25 kcal/kg/day) Weight used : IBW (78 kg) Protein : 117-156protein/day (1.5-2 gram/kg/day ) Weight used: IBW Diet Adequacy: Not meeting calorie needs, Not meeting protein needs Diet Education Needs Assessment: Diet education not indicated, patient on temporary/transition diet. Nutrition Care Level: mod Nutrition Diagnosis: Inadequate energy intake related to medical condition as evidenced by the pt needing mechanical ventilation and need for TF to meet energy and protein needs. Goal: Patient will meet 75-100% of estimated needs by follow up Progress: (N/A) Interventions: -(carb-modified diet, Composition, Rate, Route, IVF, Prescription, Collaboration with other providers Monitoring/Evaluation: -Total energy intake, Total protein intake, Formula/Solution, IVF, Prescription medication, Modified diet Signed: Scarlet Briceno RD, LD
--- NOTE | 2020-02-21 11:53 | Diagnostic Imaging Report ---
EXAMINATION: CHEST SINGLE (PORTABLE) INDICATION: Respiratory failure, pneumonia COMPARISON: Chest radiograph 02/19/2020 FINDINGS: LINES/TUBES:Endotracheal tube terminates 5.9 cm above the latasha. Left PICC line terminates near the superior cavoatrial junction. Enteric tube terminates in the distal stomach. LUNGS:The lungs are moderately inflated. Unchanged bilateral right greater than left airspace opacities. PLEURA:No pleural effusion or pneumothorax. MEDIASTINUM:The cardiomediastinal silhouette appears unchanged in size and shape. BONES/SOFT TISSUES:No acute osseous injury. ABDOMEN:No free air under the diaphragm. IMPRESSION: Lines and tubes as above. Unchanged bilateral right greater than left airspace opacities consistent with pneumonia. Signed by: Humberto Lopez MD on 02/21/2020 11:50 AM
[2020-02-21] MEDS ORDERED: [UNRECOGNIZED DRUG - OTHER] IV SCH (12:15)
--- NOTE | 2020-02-21 12:44 | Progress Note ---
DATE: 02/21/2020 SUBJECTIVE: The patient currently remains on a ventilator. His COVID-19 came back positive. Discussed with the medical team at length. Discussed with other consultants. REVIEW OF SYSTEMS: He is currently intubated. He is on FiO2 of 60%, PEEP of 12. The patient was sedated, paralyzed. OBJECTIVE: HEENT: Normocephalic. NECK: Could not be assessed. CHEST: Few rhonchi bilateral. COR: S1 and S2. ABDOMEN: Soft. LABORATORY DATA: Blood cultures are negative. His white count is 4.48, hemoglobin of 10, and hematocrit 34. Sodium 133, potassium 4.6, and creatinine 1.34. MEDICATION LIST: He is on: 1. Fentanyl. 2. Lovenox. 3. Plaquenil. 4. Cefepime. 5. Azithromycin. IMPRESSION: 1. Acute COVID-19. 2. Acute respiratory distress syndrome. 3. Concerned about superimposed infection bacterial pneumonia. 4. Diabetes mellitus with neuropathy. 5. Acute kidney injury on chronic kidney disease. 6. Respiratory failure to finish 5 days of Plaquenil. We do not have studies, but we feel it is the last hope. Continue IV antibiotic as ordered. Continue supportive care. We will follow with you. MD HARVEY Alexis/MARSHALL /[id number]
--- NOTE | 2020-02-21 12:49 | Progress Note ---
DATE: 02/20/2020 Late entry. SUBJECTIVE: The patient was seen and evaluated. The patient remains in intensive care unit. His test was still pending, but he is highly suspect for COVID-19 since we were in the mid of an outbreak pandemic. The patient remains in intensive care unit, intubated. His vitals stable. Vent setting seems to be stable. OBJECTIVE: VITAL SIGNS: Intubated. Vital stable, afebrile. HEENT: Not icteric. NECK: Supple. CHEST: Few crackles. COR: S1 and S2. ABDOMEN: Soft. Bowel sounds present. EXTREMITIES: No edema. IMPRESSION: 1. Acute respiratory failure. 2. Viral infection versus COVID-19. 3. Acute respiratory distress syndrome. 4. Diabetes mellitus. 5. Acute kidney injury on chronic kidney disease, probably continue with the current choice of antibiotic and continue with supportive care. We will follow. MD HARVEY Alexis/MODTerra /[id number]
[2020-02-21] MEDS ORDERED: ROCURONIUM BROMIDE IV SCH (13:00)
[2020-02-21] MEDS ORDERED: SODIUM CHLORIDE 0.9% IV SCH (13:00)
[2020-02-21] MEDS ORDERED: ROCURONIUM BROMIDE 250 MG in SODIUM CHLORIDE 0.9% 250ML 225 ML IV SCH (13:00)
[2020-02-21 13:37] LABS: ABG OXYGEN SATURATION 97.5 % (95-98); ABG PO2 98 mmHg (80-105)
[2020-02-21 13:39] LABS: ABG OXYGEN SATURATION 98.5 % (95-98); ABG PO2 134 mmHg (80-105)
--- NOTE | 2020-02-21 14:15 | Progress Note ---
DATE: Pulmonary Critical Care Progress Note The patient started having more difficulty with oxygenation this morning. He had to be increased back to 70%. He started bucking the ventilator and required increased sedation. His Versed was increased to 10. He subsequently required paralytics in order to synchronize with the vent. PHYSICAL EXAMINATION: VITAL SIGNS: The blood pressure is 109/56 and saturation is 98%. He is on a PRVC at a rate of 24 with tidal volumes of 400 and a PEEP of 12. His FiO2 is at 70%. HEENT: Shows no facial swelling or erythema. There is a nasogastric tube in place. He has a PICC line in place. He has an A-line in place. CARDIAC: Reveals a regular rate and rhythm with normal S1, S2. LUNGS: Auscultation of lungs reveals rhonchorous breath sounds bilaterally. There is no wheezing. ABDOMEN: Soft, nontender. There is no rebound or guarding. EXTREMITIES: Show no leg edema or calf tenderness. There is no cyanosis or clubbing. SKIN: Shows no rashes. NEUROLOGICAL: Shows no focal abnormalities. The patient is now sedated and paralyzed. LABORATORY DATA: BUN to creatinine ratio is 28 to 1.34 and chloride is 114, carbon dioxide is 21. Sodium is 143. Albumin is 1.9. White blood cell count is 4.4 and hemoglobin is 10.8. The platelet count is 218. Last blood gas is 7.33, 38, 134, and 20. RADIOGRAPHIC DATA: Chest x-ray shows bilateral right greater than left airspace opacities. IMPRESSION: 1. Viral pneumonia secondary to COVID-19. 2. Acute respiratory failure. 3. Acute respiratory distress syndrome. 4. Diabetes, out of control. PLAN: 1. Continue Versed and fentanyl for sedation along with paralytics. 2. Continue lung protective strategy with low tidal volumes and increased PEEP. 3. Enteral feedings. 4. DVT prophylaxis. 5. Begin placing patient in prone position. 6. Case discussed with brother, father, nighttime nursing staff, daytime nursing staff, Respiratory, Dr. Hillman of Infectious Disease, Dr. Chau of Internal Medicine and administration. Greater than 35 minutes in direct critical care time. MD MUNA Ramos/FREDY /[id number]
[2020-02-21] MEDS: MIDAZOLAM HCL 50 MG in SODIUM CHLORIDE 0.9% 90 ML IV PRN ×2 (16:00→22:50)
[2020-02-21] MEDS ORDERED: SODIUM CHLORIDE 0.9% 250ML 250 ML ONE (17:05)
[2020-02-21 18:08] LABS: ALANINE AMINOTRANSFERASE 20 IU/L (0-55); ALBUMIN 1.7 g/dL (3.5-5.0); ALBUMIN/GLOBULIN RATIO 0.4 (0.8-2.0); ALKALINE PHOSPHATASE 42 IU/L (40-150); ANION GAP 9.4 mmol/L (8-16); BLOOD UREA NITROGEN 23 mg/dL (7-26); BUN/CREATININE RATIO 21 (6-25); CALCIUM 7.9 mg/dL (8.4-10.2); CARBON DIOXIDE 22 mmol/L (22-29); CHLORIDE 116 mmol/L (98-107); CREATININE, SERUM 1.08 mg/dL (0.72-1.25); EST GLOMERULAR FILTRATION RATE > 60 ML/MIN (60-); GLUCOSE 166 mg/dL (74-118); POTASSIUM 4.4 mmol/L (3.5-5.1); SODIUM 143 mmol/L (136-145)
[2020-02-21] MEDS: AZITHROMYCIN 500MG/NS 250 ML 250 ML IV SCH (18:21)
--- NOTE | 2020-02-21 18:30 | NUR ---
rocuronium started earlier today at .01mcg/kg/min=57ml/hr tof=2/4 at setting of 6. patient prone at [address] arias.
[2020-02-22] VITALS (26 sets, daily range): BP systolic 96–144; BP diastolic 53–93
[2020-02-22] MEDS ORDERED: ROCURONIUM BROMIDE 250 MG in SODIUM CHLORIDE 0.9% 250ML 225 ML IV PRN ×2
[2020-02-22] MEDS: INSULIN REGULAR, HUMAN 100 UNIT/1 ML 3ML VIAL SQ SCH ×4 (06:00→18:12)
[2020-02-22 06:03] LABS: EOSINOPHILS # (AUTO) 0.1 (0.0-0.4); EOSINOPHILS % 1.6 % (0.0-6.0); HEMATOCRIT 34.4 % (38.2-49.6); HEMOGLOBIN 10.7 g/dL (14.0-18.0); LYMPHOCYTES # (AUTO) 0.4 (1.0-3.2); LYMPHOCYTES % 10.1 % (18.0-39.1); MEAN CORPUSCULAR HEMOGLOBIN 25.3 pg (28-32); MEAN CORPUSCULAR HGB CONC 31.1 g/dL (31-35); MEAN CORPUSCULAR VOLUME 81.3 fL (81-99); MONOCYTES # (AUTO) 0.4 (0.2-0.8); MONOCYTES % 9.4 % (4.4-11.3); NEUTROPHILS # (AUTO) 3.4 (2.1-6.9); NEUTROPHILS % 78.4 % (38.7-80.0); PLATELET COUNT 258 x10e3/uL (140-360); RED BLOOD COUNT 4.23 x10e6/uL (4.3-5.7); RED CELL DISTRIBUTION WIDTH 14.9 % (11.7-14.4)
[2020-02-22 06:20] LABS: ALANINE AMINOTRANSFERASE 21 IU/L (0-55); ALBUMIN 1.5 g/dL (3.5-5.0); ALBUMIN/GLOBULIN RATIO 0.4 (0.8-2.0); ALKALINE PHOSPHATASE 41 IU/L (40-150); ANION GAP 8.3 mmol/L (8-16); BLOOD UREA NITROGEN 19 mg/dL (7-26); BUN/CREATININE RATIO 23 (6-25); CARBON DIOXIDE 23 mmol/L (22-29); CHLORIDE 119 mmol/L (98-107); CREATININE, SERUM 0.83 mg/dL (0.72-1.25); EST GLOMERULAR FILTRATION RATE > 60 ML/MIN (60-); GLUCOSE 119 mg/dL (74-118); POTASSIUM 4.3 mmol/L (3.5-5.1); SODIUM 146 mmol/L (136-145)
[2020-02-22] MEDS: CEFEPIME 1GM/NS 0.9% 50 ML 50 ML IV SCH ×3 (06:35→21:45)
[2020-02-22] MEDS: MIDAZOLAM HCL 50 MG in SODIUM CHLORIDE 0.9% 90 ML IV PRN ×3 (06:37→18:00)
--- NOTE | 2020-02-22 06:46 | NUR ---
PT IN PRONE POSITION. PER DR. CABRAL, AFTER 12 HRS, TURN PT BACK TO SUPINE POSITION. AT 0430, THIS RN, 3 ADDITIONAL RN'S, AND RT AT BEDSIDE TO TURN PATIENT. PT TOLERATED WELL, NO DISTRESS NOTED, VS HR: 83, 02 97%, BP 99/61, RATE 26. ALLEVYN APPLIED TO SUSPECTED DVT ON SACRAL AREA. TUBE FEEDINGS RESTARTED @ 20CC/HR WITH 100CC FLUSHES Q4. CHG BATH DONE. REDNESS NOTED TO PENILE AREA. AREA CLEANSED AND NOTIFIED DAY RN TO COMMUNICATE TO WOUND CARE. DR. CABRAL CALLED AND NOTIFIED OF PATIENT BACK IN SUPINE POSITION. ORDER TO STOP THE ROCURONIUM. NOTIFIED DAY RN. Addendum: 02/22/20 at 0701 by Ann Marie Gabriel RN SUSPECTED DEEP TISSUE INJURY
[2020-02-22] MEDS: HYDROXYCHLOROQUINE SULFATE 200 MG TAB PO SCH ×2 (08:15→21:45)
[2020-02-22] MEDS: ENOXAPARIN SOD INJ 40 MG/0.4 ML SYR SC SCH (08:15)
--- NOTE | 2020-02-22 08:25 | NUR ---
DPA COMPLETED VIA CHART RECORDS DUE TO ISOLATION
--- NOTE | 2020-02-22 08:31 | NUR ---
GAVE PACKET OF INFORMATION WITH COMMUNITY RESOURCES FOR ASSISTANCE WITH LOW TO NO INCOME TO PATIENT. RESOURCES THAT PATIENT MAY BE ABLE TO FOLLOW UP UPON DISCHARGE. PT EDUCATED ON EACH RESOURCE AND UNDERSTANDING HOW TO FOLLOW UP TO SEE IF QUALIFIED FOR EACH RESOURCE.
--- NOTE | 2020-02-22 10:08 | Progress Note ---
DATE: 02/22/2020 CHIEF COMPLAINT/HISTORY OF PRESENT ILLNESS: This is a 35-year-old man, whose primary treating diagnosis is acute COVID-19 viral pneumonia. The patient is currently on a ventilator because of acute hypoxic respiratory failure. Today, the patient was found to have white blood cell count of 4300 with 78% segmented neutrophils. The patient's BUN and creatinine today is 19 and 0.83 respectively. The patient's glucose levels are well controlled with sliding scale insulin. The patient underwent a chest x-ray yesterday on February 21, 2020, which revealed bilateral airspace opacities, right greater than left, consistent with pneumonia. Clinically, the patient seems to be improving. REVIEW OF SYSTEMS: As per HPI. PHYSICAL EXAMINATION: GENERAL: He is sedated and paralyzed. He is a sedated on a ventilator, AC mode. VITAL SIGNS: The patient's oxygen saturation is 99% with a FiO2 of 55% and PEEP of 12. The patient's blood pressure is 118/80, heart rate is 96, respiratory rate is 24, and temperature is 97.1. HEENT: The patient has endotracheal tube and orogastric tube in place. INTEGUMENT: Skin is warm and dry. No pallor, jaundice, or diaphoresis. No skin ulcerations appreciated but the patient has a deep tissue injury in the sacral area. NECK: Supple. CARDIOVASCULAR: Tachycardic rate and rhythm. LUNGS: The patient has diminished breath sounds at the bases with faint rhonchi. ABDOMEN: Benign. EXTREMITIES: No edema or deformity. NEUROLOGIC: Intact except he is sedated and paralyzed as previously stated. DIAGNOSES: 1. Sepsis secondary to acute COVID-19 viral infection. 2. Acute COVID-19 bilateral pneumonia. 3. Leukopenia secondary to COVID-19 infection. 4. Type 2 diabetes. 5. Acute renal insufficiency secondary to acute tubular necrosis, resolving. PLAN: 1. Continue respiratory care as per director medical economics orders. 2. Continue oxygenation via ventilator. 3. Continue intravenous antibiotics. 4. Continue intravenous azithromycin and oral hydroxychloroquine for the patient's acute COVID-19 infection. 5. Continue tube feeds for nutritional optimization. 6. We will follow the patient's sacral deep tendon injury wound. I spent 30 minutes in the care of this intensive care unit patient. MD OLVIN Blackburn/FREDY /[id number]
[2020-02-22] MEDS: FENTANYL CITRATE INJ 2,000 MCG in SODIUM CHLORIDE 0.9% 250ML 210 ML IV PRN ×2 (10:30→18:00)
--- NOTE | 2020-02-22 12:42 | NUR ---
WOUND CARE CONSULT FOR 35 YO MALE HX OF VIRAL PNEU ,SEPSIS,HYPERGLYCEMIA ,HYPOXEMIA CARMEN 11 ON STRICT PUP STATUS AND INTERVENTIONS AND ALTERNATING PRESSURE MATTRESS LABS: WBC-4.35 HGB_4.23 GLUCOSE-119 SKIN ASSESSMENT COMPLETE PATIENT PRESENTS WITH MID SACRAL ULCERATION DARK BLUISH WITH BLISTER MEASURES 7CM X 9CM PATIENT LOW PERFUSION INCREASES SKIN FRAGILE STATE NURSING AWARE STRICT PRECAUTIONS AND FREQUENT ASSESSMENT MAINTAINED RECOMMENDATIONS: NURSING TO CONTINUE TO MAINTAIN STRICT PUP STATUS AND INTERVENTIONS AND ALTERNATING PRESSURE MATTRESS NURSING TO CONTINUE TO TURN PATIENT IN BED AT LEAST EVERY 2HRS AND MUCH TOLERATED NURSING TO CONTINUE TO ASSIST PATIENT NEEDED WITH MEALS AND NUTRITIONAL SUPPLEMENTS AND SUPPORT TO ENSURE PROPER REQUIREMENTS FOR HEALING NURSING TO CONTINUE TO OFFLOAD FEET AND HEELS NEEDED WITH PILLOW SUSPENSION WHEN IN BED NURSING TO CLEAN SACRAL DTI WITH NORMAL SALINE DAILY AND APPLY VENELEX OINTMENT AND ALLEVYN FOAM DRESSING Addendum: 02/22/20 at 1245 by Dedrick Chan RN Amended: Links added.
--- NOTE | 2020-02-22 14:30 | Diagnostic Imaging Report ---
EXAMINATION: CHEST SINGLE (PORTABLE) INDICATION: Pneumonia COMPARISON: Chest are graft 02/21/2020 FINDINGS: LINES/TUBES:Endotracheal tube terminates 8.4 cm above the latasha. Left PICC line unchanged. Enteric tube projects below the diaphragm with side port in the stomach and tip not visualized. LUNGS:Lung volumes are low. Continued worsening of bilateral right greater than left airspace opacities. PLEURA:No pleural effusion or pneumothorax. MEDIASTINUM:The cardiomediastinal silhouette appears unchanged in size and shape. BONES/SOFT TISSUES:No acute osseous injury. ABDOMEN:No free air under the diaphragm. IMPRESSION: Endotracheal tube terminates 8.4 cm above the latasha. Recommend advancement by approximately 4 cm. Continued worsening of bilateral right greater than left airspace opacities. Signed by: Humberto Lopez MD on 02/22/2020 2:27 PM
--- NOTE | 2020-02-22 15:25 | Progress Note ---
DATE: Pulmonary Critical Care Progress Note SUBJECTIVE: The patient is now supine. He is on 50% oxygen with 10 PEEP and is saturating about 95%. His pancuronium has been stopped, but he remains on Versed at 7 mg an hour as well as fentanyl at 250 mg an hour. PHYSICAL EXAMINATION: VITAL SIGNS: The patient is afebrile. The vital signs are stable. HEENT: Shows no facial swelling or erythema. There is an oral endotracheal tube in place. CARDIAC: Reveals a regular rate and rhythm with normal S1, S2. LUNGS: Auscultation of lungs reveals rhonchorous breath sounds bilaterally. There is no wheezing. ABDOMEN: Soft, nontender. There is no rebound or guarding. EXTREMITIES: Show no leg edema or calf tenderness. There is no cyanosis or clubbing. SKIN: Shows no rashes. NEUROLOGICAL: Shows no focal abnormalities. RADIOGRAPHIC DATA: Endotracheal tube is so far cephalad and requires advancement. There are bilateral pulmonary infiltrates. IMPRESSION: 1. Acute respiratory distress syndrome. 2. Viral pneumonia secondary to COVID-19. 3. Diabetes. PLAN: 1. Stop paralytics and continue sedation. 2. Repeat ABG and wean ventilator as tolerated. 3. Continue lung protective strategy with low tidal volumes and increase PE. 4. Enteral feedings. 5. Continue current antimicrobial regimen. Severiano Crow MD [facility]/MODL /[id number]
--- NOTE | 2020-02-22 15:36 | NUR ---
dr. arias at bedside today. plan of care per MD to attempt to wean vent. decrease versed gtt as tolerated. do not need to prone at this time. ett advanced 2-3cm a. f/u with cxr and abg. RT aware of plan of care.
--- NOTE | 2020-02-22 18:48 | Diagnostic Imaging Report ---
EXAMINATION: CHEST SINGLE (PORTABLE) INDICATION: Pneumonia COMPARISON: Chest x-ray performed earlier same day. FINDINGS: LINES/TUBES:Endotracheal tube terminates 8.4 cm above the latasha, unchanged. Left PICC line unchanged. Enteric tube projects below the diaphragm with side port in the stomach and tip not visualized. LUNGS:Lung volumes are low. Unchanged bilateral right greater than left airspace opacities. PLEURA:No pleural effusion or pneumothorax. MEDIASTINUM:The cardiomediastinal silhouette appears unchanged in size and shape. BONES/SOFT TISSUES:No acute osseous injury. ABDOMEN:No free air under the diaphragm. IMPRESSION: Endotracheal tube not significantly changed. Recommend 4 cm advancement.. Signed by: Sotero Limon MD on 02/22/2020 6:45 PM
[2020-02-22] MEDS: AZITHROMYCIN 500MG/NS 250 ML 250 ML IV SCH (18:56)
--- NOTE | 2020-02-22 19:51 | Consultation ---
DATE OF CONSULTATION: HISTORY OF PRESENT ILLNESS: Mr. Love remains in intensive care unit, remains on the ventilator. He is on PEEP of 10, O2 50, saturation about 95%, remains on versed. Discussed with the medical team. PHYSICAL EXAMINATION: GENERAL: Unchanged. HEENT: Normocephalic. CHEST: Few rhonchi at the bases. COR: S1 and S2. ABDOMEN: Soft. No fever today. The last fever was on February 20. LABORATORY DATA: Blood cultures remain negative. QT be monitored daily. The patient seemed to be stable. White count is 4.35 and hemoglobin 10. Sodium 146 and creatinine 0.83. IMPRESSION: Respiratory failure due to COVID-19 acute respiratory distress syndrome. Acute probably on chronic kidney disease, diabetes mellitus. To finish 5 days of hydroxychloroquine and azithromycin. This was discussed almost every day with physicians. Reviewed literature since we do not have your recommendations where the amidst of this epidemic. We will keep following the patient daily, to finish 5 days of antibiotic. MD HARVEY Alexis/MODL /[id number]
--- NOTE | 2020-02-22 22:10 | NUR ---
At shift change, ABG results & chest Xray results called to Dr. Terra Crow with day RN and RT present. Order to change ventilator Tidal Volume to 420. RT made adjustment to ventilator, pt tolerating well. Will continue to monitor.
[2020-02-23] VITALS (17 sets, daily range): BP systolic 96–155; BP diastolic 53–86
[2020-02-23] MEDS: INSULIN REGULAR, HUMAN 100 UNIT/1 ML 3ML VIAL SQ SCH ×4 (00:35→18:45)
[2020-02-23 05:16] LABS: EOSINOPHILS # (AUTO) 0.1 (0.0-0.4); EOSINOPHILS % 1.6 % (0.0-6.0); HEMATOCRIT 32.8 % (38.2-49.6); HEMOGLOBIN 10.3 g/dL (14.0-18.0); LYMPHOCYTES # (AUTO) 0.5 (1.0-3.2); LYMPHOCYTES % 11.6 % (18.0-39.1); MEAN CORPUSCULAR HEMOGLOBIN 25.7 pg (28-32); MEAN CORPUSCULAR HGB CONC 31.4 g/dL (31-35); MEAN CORPUSCULAR VOLUME 81.8 fL (81-99); MONOCYTES # (AUTO) 0.4 (0.2-0.8); MONOCYTES % 10.3 % (4.4-11.3); NEUTROPHILS # (AUTO) 2.9 (2.1-6.9); NEUTROPHILS % 75.7 % (38.7-80.0); PLATELET COUNT 329 x10e3/uL (140-360); RED BLOOD COUNT 4.01 x10e6/uL (4.3-5.7); RED CELL DISTRIBUTION WIDTH 15.2 % (11.7-14.4)
[2020-02-23 05:47] LABS: ALANINE AMINOTRANSFERASE 26 IU/L (0-55); ALBUMIN 1.5 g/dL (3.5-5.0); ALBUMIN/GLOBULIN RATIO 0.4 (0.8-2.0); ALKALINE PHOSPHATASE 47 IU/L (40-150); ANION GAP 9.7 mmol/L (8-16); BLOOD UREA NITROGEN 23 mg/dL (7-26); BUN/CREATININE RATIO 20 (6-25); CALCIUM 8.3 mg/dL (8.4-10.2); CARBON DIOXIDE 23 mmol/L (22-29); CHLORIDE 118 mmol/L (98-107); CREATININE, SERUM 1.14 mg/dL (0.72-1.25); EST GLOMERULAR FILTRATION RATE > 60 ML/MIN (60-); GLUCOSE 169 mg/dL (74-118); POTASSIUM 4.7 mmol/L (3.5-5.1); SODIUM 146 mmol/L (136-145)
[2020-02-23] MEDS: CEFEPIME 1GM/NS 0.9% 50 ML 50 ML IV SCH ×3 (06:10→21:39)
[2020-02-23] MEDS: MIDAZOLAM HCL 50 MG in SODIUM CHLORIDE 0.9% 90 ML IV PRN (06:11)
[2020-02-23] MEDS: FENTANYL CITRATE INJ 2,000 MCG in SODIUM CHLORIDE 0.9% 250ML 210 ML IV PRN (06:11)
--- NOTE | 2020-02-23 07:00 | NUR ---
Notified Dr. Terra Crow of vent changes and AM renal labs. New order for x1L 1/2 NS @ 100 cc/hr. Increase peep to 12 and RT to get plateau pressure & static compliance. Day RN notified. RT notified. ABG to be drawn a few hours after vent change. Addendum: 02/23/20 at 0704 by Ann Marie Gabriel RN Versed max of 5mg. Wean vent as tolerated.
[2020-02-23] MEDS ORDERED: SODIUM CHLORIDE 0.45% 1,000 ML IV ONE (07:15)
[2020-02-23 07:35] LABS: ANISOCYTOSIS SLIGHT; LYMPHOCYTES % (MANUAL) 12 % (19-48); MONOCYTES % (MANUAL) 7 % (3.4-9.0); NEUTROPHILS % (MANUAL) 75 % (40-74); NUCLEATED RED BLOOD CELLS 1; PLATELET ESTIMATE ADEQUATE; PLATELET MORPHOLOGY COMMENT NORMAL; RBC MORPHOLOGY COMMENT NORMAL
[2020-02-23] MEDS: HYDROXYCHLOROQUINE SULFATE 200 MG TAB PO SCH ×2 (08:05→21:38)
[2020-02-23] MEDS: ENOXAPARIN SOD INJ 40 MG/0.4 ML SYR SC SCH (08:05)
[2020-02-23] MEDS: BALSAM PERU/CASTOR OIL 60 GM OINT...G. TP SCH (08:05)
[2020-02-23] MEDS: ACYCLOVIR 200 MG CAP PO SCH ×3 (10:08→21:38)
[2020-02-23] MEDS: FLUCONAZOLE 100 MG TAB PO SCH (10:08)
--- NOTE | 2020-02-23 10:09 | Diagnostic Imaging Report ---
EXAM: CHEST SINGLE (PORTABLE) DATE: 02/23/2020 7:42 AM INDICATION: Endotracheal tube advancement COMPARISON: 02/22/2020 IMPRESSION: Endotracheal tube tip terminates approximately 5.3 cm above the latasha. PICC line identified in stable position. Enteric tube noted coursing below the diaphragm and terminating within the left upper quadrant in the expected region of the stomach. Again identified are bilateral airspace opacities greater on the right. There is no evidence for pneumothorax or significant effusion. The cardiomediastinal silhouette is stable in appearance. No acute osseous abnormality is identified. Signed by: Dr. Colton Sandra MD on 02/23/2020 10:06 AM
--- NOTE | 2020-02-23 11:07 | Progress Note ---
DATE: 02/23/2020 CHIEF COMPLAINT/HISTORY OF PRESENT ILLNESS: This is a 35-year-old man whose primary treating diagnosis is acute hypoxic respiratory failure secondary to bilateral pneumonia secondary to acute COVID-19 infection. The patient is currently on a ventilator. The patient did well overnight. White blood cell count today is 3800 with 75% segmented neutrophils. Hemoglobin is 10.3 g/dL. The patient's BUN and creatinine are 23 and 1.14 respectively. Potassium is 4.7. The patient underwent a chest x-ray yesterday on February 22, 2020, which revealed unchanged bilateral greater than right left airspace opacities. REVIEW OF SYSTEMS: As per HPI. PHYSICAL EXAMINATION: VITAL SIGNS: The patient is currently on a ventilator and is on AC mode. FiO2 is 70% with an oxygen saturation of 92%. Heart rate 100, blood pressure is 124/80, temperature is 98.8. His highest temperature in the last 24 hours was 99.0 at 5 o'clock this morning. He is currently sedated and paralyzed. INTEGUMENT: Skin is warm and dry. He does have a deep tissue injury to the sacral area. HEENT: Anicteric sclerae. The patient has an endotracheal tube and orogastric tube in place. NECK: Supple. CARDIOVASCULAR: Tachycardic rate, regular rhythm. LUNGS: Bibasilar diminished breath sounds and rhonchi. ABDOMEN: Soft, he is receiving tube feeds in the form of Glucerna, which he is tolerating. EXTREMITIES: No edema or deformity. NEUROLOGIC: Once again, he is sedated and paralyzed and currently on a ventilator. DIAGNOSES: 1. Acute hypoxic respiratory failure secondary to COVID-19. 2. Bilateral pneumonia. 3. Type 2 diabetes mellitus. 4. Acute leukopenia secondary to COVID-19 infection. 5. Acute renal insufficiency secondary to acute tubular necrosis, resolving. PLAN: 1. Continue respiratory care as per roundhouse worker's orders. 2. Continue oxygenation via ventilator. 3. Continue intravenous antibiotics. 4. Continue intravenous azithromycin, oral hydroxychloroquine for patient's acute COVID-19 infection. 5. Continue tube feeds for nutritional optimization. 6. We will continue topical ointments/emollients for patient's sacral deep tissue injury wound. I spent 25 minutes in the care of this intensive care unit patient. Gino MD OLVIN Tong/FREDY /[id number]
[2020-02-23] MEDS: ROCURONIUM BROMIDE 250 MG in SODIUM CHLORIDE 0.9% 250ML 225 ML IV SCH ×2 (12:00→22:52)
--- NOTE | 2020-02-23 13:43 | Progress Note ---
DATE: SUBJECTIVE: The patient had some worsening oxygen saturations this morning and had to be re-paralyzed. His FiO2 is now back to 55% with 12 of PEEP. He is receiving enteral feedings and DVT prophylaxis. He is off pressors. PHYSICAL EXAMINATION: VITAL SIGNS: The blood pressure is 131/86, saturation is 93% and the pulse is 102. He is on a respirator at a rate of 22 with tidal volumes of 420 and FiO2 of 55%. His PEEP is set at 12. He has oral endotracheal tube in place. CARDIAC: Reveals a regular rate and rhythm with normal S1 and S2. LUNGS: Auscultation of lungs reveals rhonchorous breath sounds bilaterally. There is no wheezing. ABDOMEN: Soft and nontender. There is no rebound or guarding. EXTREMITIES: Shows no leg edema or calf tenderness. LABORATORY DATA: The white blood cell count is 3.8 and the hemoglobin is 10.3. The platelet count is 329. The sodium is 146 and the BUN to creatinine ratio is 23 to 1.14. The blood sugar is 185. The total bilirubin is 1.5 and albumin is 1.5. Urinalysis shows 10 to 20 white blood cells. RADIOGRAPHIC DATA: Chest x-ray shows bilateral infiltrates, greater on the right. The endotracheal tube is 5 cm above the latasha. The PICC line is in good position. IMPRESSION: 1. Acute respiratory failure. 2. Respiratory distress syndrome. 3. COVID-19 and viral syndrome. 4. Acute kidney injury. PLAN: 1. Continue current antibiotics. 2. Continue low tidal volume and high PEEP ventilation. 3. Continue paralytics for now and wean oxygen as tolerated. 4. Continue enteral feedings. 5. Continue DVT prophylaxis. Severiano Crow MD [facility] /[id number]
[2020-02-23 14:43] LABS: ABG HCO3 22 mmol/L (23-28); ABG PCO2 44 mmHg (41-51); ABG PH 7.32 (7.31-7.41)
[2020-02-23] MEDS: AZITHROMYCIN 500MG/NS 250 ML 250 ML IV SCH (18:46)
[2020-02-24] VITALS (26 sets, daily range): BP systolic 114–157; BP diastolic 60–93
[2020-02-24] MEDS: INSULIN REGULAR, HUMAN 100 UNIT/1 ML 3ML VIAL SQ SCH ×4 (00:40→17:03)
[2020-02-24] MEDS: MIDAZOLAM HCL 50 MG in SODIUM CHLORIDE 0.9% 90 ML IV PRN (04:18)
[2020-02-24 05:03] LABS: BASOPHILS % 0.3 % (0.0-1.0); EOSINOPHILS # (AUTO) 0.1 (0.0-0.4); EOSINOPHILS % 1.7 % (0.0-6.0); HEMATOCRIT 32.2 % (38.2-49.6); LYMPHOCYTES # (AUTO) 0.4 (1.0-3.2); LYMPHOCYTES % 12.1 % (18.0-39.1); MEAN CORPUSCULAR HEMOGLOBIN 25.8 pg (28-32); MEAN CORPUSCULAR HGB CONC 31.1 g/dL (31-35); MONOCYTES # (AUTO) 0.4 (0.2-0.8); MONOCYTES % 11.3 % (4.4-11.3); NEUTROPHILS # (AUTO) 2.6 (2.1-6.9); NEUTROPHILS % 73.5 % (38.7-80.0); PLATELET COUNT 317 x10e3/uL (140-360); RED BLOOD COUNT 3.88 x10e6/uL (4.3-5.7); RED CELL DISTRIBUTION WIDTH 15.1 % (11.7-14.4)
[2020-02-24 05:17] LABS: ALANINE AMINOTRANSFERASE 33 IU/L (0-55); ALBUMIN 1.5 g/dL (3.5-5.0); ALBUMIN/GLOBULIN RATIO 0.4 (0.8-2.0); ALKALINE PHOSPHATASE 85 IU/L (40-150); ANION GAP 9.7 mmol/L (8-16); BLOOD UREA NITROGEN 18 mg/dL (7-26); BUN/CREATININE RATIO 20 (6-25); CALCIUM 8.4 mg/dL (8.4-10.2); CARBON DIOXIDE 24 mmol/L (22-29); CHLORIDE 116 mmol/L (98-107); EST GLOMERULAR FILTRATION RATE > 60 ML/MIN (60-); GLUCOSE 202 mg/dL (74-118); POTASSIUM 4.7 mmol/L (3.5-5.1); SODIUM 145 mmol/L (136-145)
[2020-02-24] MEDS: ACYCLOVIR 200 MG CAP PO SCH ×3 (05:59→22:25)
[2020-02-24] MEDS: CEFEPIME 1GM/NS 0.9% 50 ML 50 ML IV SCH ×3 (05:59→22:25)
[2020-02-24] MEDS: ENOXAPARIN SOD INJ 40 MG/0.4 ML SYR SC SCH (08:00)
[2020-02-24] MEDS: BALSAM PERU/CASTOR OIL 60 GM OINT...G. TP SCH (08:00)
[2020-02-24] MEDS: HYDROXYCHLOROQUINE SULFATE 200 MG TAB PO SCH ×2 (08:00→21:03)
[2020-02-24] MEDS: FLUCONAZOLE 100 MG TAB PO SCH (08:00)
--- NOTE | 2020-02-24 11:27 | Diagnostic Imaging Report ---
EXAM: CHEST SINGLE (PORTABLE) DATE: 02/24/2020 6:30 AM INDICATION: Respiratory failure COMPARISON: 02/23/2020 IMPRESSION: Endotracheal tube identified in stable position. Enteric tube noted coursing below the diaphragm and terminating within the left upper quadrant. Left-sided PICC line identified in stable position. There are increased airspace opacities, more prominent within the right lung. Findings are unchanged from the prior examination. There is no evidence for pneumothorax or significant pleural effusion. The cardiomediastinal silhouette is stable in appearance. There is a chronic deformity of the right clavicle. No acute osseous abnormality identified. Signed by: Dr. Colton Sandra MD on 02/24/2020 11:24 AM
[2020-02-24] MEDS: ROCURONIUM BROMIDE 250 MG in SODIUM CHLORIDE 0.9% 250ML 225 ML IV SCH ×2 (13:11→19:00)
[2020-02-24] MEDS ORDERED: FUROSEMIDE INJ 10 MG/ML 4 ML VIAL IV SCH (13:15)
--- NOTE | 2020-02-24 14:07 | Progress Note ---
DATE: SUBJECTIVE: The patient remains on PEEP of 10 with a FiO2 of 55%. He is saturating 93%. He is receiving enteral feedings. He has low-grade temperatures. PHYSICAL EXAMINATION: VITAL SIGNS: The blood pressure is 144/72, saturation is 94%. The ventilator is set at tidal volume of 420 with a respiratory rate of 22 and 55% FiO2. The PEEP is set at 10. HEENT: Shows no facial swelling or erythema. There is an endotracheal tube in place. LYMPHATIC: Shows no submandibular, cervical, or supraclavicular adenopathy. CARDIAC: Reveals regular rate and rhythm with normal S1 and S2. LUNGS: Auscultation of lungs reveals rhonchorous breath sounds bilaterally. There is no wheezing. ABDOMEN: Soft and nontender. There is no rebound or guarding. EXTREMITIES: Shows 2+ leg edema. Edema is worse on the right leg than the left. LABORATORY DATA: White blood cell count is 3.55 and hemoglobin is 10. The platelet count is 217. The BUN to creatinine ratio is 18 to 0.9 and the blood sugar is 222. Albumin is 1.9. IMPRESSION: 1. Acute respiratory failure. 2. Acute respiratory distress syndrome. 3. Viral syndrome and COVID-19. 4. Leg edema. PLAN: 1. Continue current lung protective ventilation. 2. Continue paralytics and sedation. 3. Venous duplex studies. 4. Enteral feedings. 5. DVT prophylaxis. 6. Case discussed with lieutenant shift supervisor nursing, day shift nursing, Respiratory, and Infectious Disease. Severiano Crow MD [facility]/[place] /[id number]
[2020-02-24] MEDS: ENOXAPARIN INJ 80 MG/0.8 ML SYR SC SCH ×2 (14:46→21:03)
[2020-02-24 15:14] LABS: ABG HCO3 25 mmol/L (23-28); ABG PCO2 48 mmHg (35-45); ABG PH 7.33 (7.31-7.41)
[2020-02-24] MEDS: AZITHROMYCIN 500MG/NS 250 ML 250 ML IV SCH (17:36)
[2020-02-24] MEDS ORDERED: ALBUMIN 25% 25GM 100ML 0.25 GM/ML BTL IV ONE (20:00)
[2020-02-24] MEDS ORDERED: ACETAZOLAMIDE SODIUM 500 MG/VIAL IV ONE (20:00)
[2020-02-24] MEDS ORDERED: ALBUMIN 25% 25GM 100ML 200 ML IV ONE (20:30)
[2020-02-25] VITALS (27 sets, daily range): BP systolic 106–171; BP diastolic 55–80
[2020-02-25] MEDS: INSULIN REGULAR, HUMAN 100 UNIT/1 ML 3ML VIAL SQ SCH ×4 (00:27→18:00)
[2020-02-25] MEDS: FENTANYL CITRATE INJ 2,000 MCG in SODIUM CHLORIDE 0.9% 250ML 210 ML IV PRN (03:20)
[2020-02-25] MEDS: MIDAZOLAM HCL 50 MG in SODIUM CHLORIDE 0.9% 90 ML IV PRN ×2 (03:25→21:16)
[2020-02-25 05:16] LABS: BASOPHILS % 0.2 % (0.0-1.0); HEMATOCRIT 31.9 % (38.2-49.6); HEMOGLOBIN 9.5 g/dL (14.0-18.0); LYMPHOCYTES # (AUTO) 0.5 (1.0-3.2); LYMPHOCYTES % 11.5 % (18.0-39.1); MEAN CORPUSCULAR HEMOGLOBIN 25.3 pg (28-32); MEAN CORPUSCULAR HGB CONC 29.8 g/dL (31-35); MEAN CORPUSCULAR VOLUME 85.1 fL (81-99); MONOCYTES # (AUTO) 0.5 (0.2-0.8); MONOCYTES % 11.9 % (4.4-11.3); NEUTROPHILS # (AUTO) 3.1 (2.1-6.9); NEUTROPHILS % 74.2 % (38.7-80.0); PLATELET COUNT 318 x10e3/uL (140-360); RED BLOOD COUNT 3.75 x10e6/uL (4.3-5.7); RED CELL DISTRIBUTION WIDTH 15.2 % (11.7-14.4)
[2020-02-25 05:40] LABS: ALANINE AMINOTRANSFERASE 36 IU/L (0-55); ALBUMIN 2.3 g/dL (3.5-5.0); ALBUMIN/GLOBULIN RATIO 0.6 (0.8-2.0); ALKALINE PHOSPHATASE 125 IU/L (40-150); ANION GAP 9.1 mmol/L (8-16); BLOOD UREA NITROGEN 21 mg/dL (7-26); BUN/CREATININE RATIO 21 (6-25); CALCIUM 8.7 mg/dL (8.4-10.2); CARBON DIOXIDE 28 mmol/L (22-29); CHLORIDE 113 mmol/L (98-107); CREATININE, SERUM 0.98 mg/dL (0.72-1.25); EST GLOMERULAR FILTRATION RATE > 60 ML/MIN (60-); GLUCOSE 269 mg/dL (74-118); POTASSIUM 5.1 mmol/L (3.5-5.1); SODIUM 145 mmol/L (136-145)
[2020-02-25] MEDS: ACYCLOVIR 200 MG CAP PO SCH ×3 (06:22→21:16)
[2020-02-25] MEDS: CEFEPIME 1GM/NS 0.9% 50 ML 50 ML IV SCH ×3 (06:22→21:16)
--- NOTE | 2020-02-25 08:01 | Progress Note ---
DATE: 02/25/2020 CHIEF COMPLAINT/HISTORY OF PRESENT ILLNESS: This is a 35-year-old man, whose primary treating diagnosis is acute respiratory distress syndrome secondary to bilateral COVID-19 viral pneumonia. He is currently on a ventilator. His oxygen saturation is 96%, and FiO2 of 55%. Yesterday, he underwent a venous Doppler ultrasound and was found to have a deep venous thrombosis in the right lower extremity. The patient was started on enoxaparin 80 mg subcutaneous twice a day, which he tolerated quite well. The patient had a chest x-ray yesterday, February 24, 2020, which revealed bilateral airspace opacities worse in the right. The radiologist felt that these opacities were actually increased compared to previous chest x-rays. Today, the patient's white blood cell count was 4100 with 74% segmented neutrophils. Hemoglobin 9.5 g/dL. Also today, the patient's BUN and creatinine are 21 and 0.98 respectively. Potassium is 5.1. REVIEW OF SYSTEMS: As per HPI. PHYSICAL EXAMINATION: VITAL SIGNS: He is sedated and paralyzed and currently on a ventilator as previously stated. He is on AC mode, FiO2 55%, ox saturation 96%. PEEP is 10, respiratory rate 22, blood pressure 130/70, heart rate 104. Temperature, the patient has not had fever in over 24 hours. At 7:30 yesterday February 24, 2020, temperature was 100.3, but since then he has been afebrile. INTEGUMENT: Skin is warm dry. No pallor, jaundice, or diaphoresis. He does have a deep tissue injury to the sacral area. HEENT: Anicteric sclerae. He has an endotracheal and orogastric tube in place. NECK: Supple. No evidence of jugular venous distention. CARDIOVASCULAR: Tachycardic rate, regular rhythm. LUNGS: The patient has bilateral crackles. Respiratory therapy states that the suction secretions are thick in tanning color. ABDOMEN: Soft, not distended. EXTREMITIES: He has edema in the lower legs, worse in the right. NEUROLOGIC: Once again, he is sedated and paralyzed and on a ventilator. DIAGNOSES: 1. Sepsis secondary to bilateral COVID-19 viral pneumonia. 2. Acute respiratory distress syndrome. 3. Bilateral COVID-19 viral pneumonia. 4. Leukopenia secondary to sepsis. 5. Type 2 diabetes mellitus. 6. Acute right leg deep venous thrombosis. PLAN: 1. We will continue enoxaparin 80 mg subcutaneous twice a day for the patient's acute right lower extremity deep venous thrombosis. 2. Continue hydroxychloroquine via orogastric tube and intravenous azithromycin for the patient's COVID-19 viral pneumonia. 3. Continue aggressive respiratory care. 4. Continue aggressive oxygenation via ventilator. 5. We will optimize the patient's nutritional status with tube feeds. I spent 35 minutes in the care of this intensive care unit patient. MD OLVIN Blackburn/FREDY /[id number]
[2020-02-25] MEDS ORDERED: ALBUMIN 25% 25GM 100ML 0.25 GM/ML BTL IV ONE (08:30)
--- NOTE | 2020-02-25 08:41 | Progress Note ---
DATE: SUBJECTIVE: The patient was started on high-dose Lovenox yesterday for the DVT on the right side. His FiO2 is decreased to 50% and he remains on 10 of PEEP. His plateau pressure is 24 and static compliance is 20. PHYSICAL EXAMINATION: VITAL SIGNS: The patient is afebrile. The blood pressure is 164/78, saturation is 96%. He is breathing at a rate of 22 with a tidal volume of 420 and PEEP of 10. His FiO2 is set at 50%. HEENT: Shows no facial swelling or erythema. CARDIAC: Reveals a regular rate and rhythm with normal S1, S2. LUNGS: Auscultation of lungs reveals crackles at the bases. There is no wheezing. ABDOMEN: Soft, nontender. There is no rebound or guarding. EXTREMITIES: Shows no tenderness. There is marked swelling of the right lower extremity more than left. LABORATORY DATA: BUN to creatinine ratio is 21 to 0.98 and the potassium is 5.1. The other electrolytes are within normal limits. Glucose is 269. Albumin is 2.3. Hemoglobin is 9.5 and the white blood cell count is 4.2. The platelet count is 318. PT is 15.1. IMPRESSION: 1. Acute respiratory failure. 2. Acute respiratory distress syndrome. 3. Viral pneumonia secondary to COVID-19. 4. Deep vein thrombosis in the right femoral vein. PLAN: 1. Stop paralytics and continue Versed and fentanyl. 2. Additional diuretics to make sure the patient is negative. 3. Continue enteral feedings. 4. Continue Lovenox at 1 mg/kg twice daily. 5. Wean ventilator depending on the patient's response. 6. Greater than 35 minutes in direct critical care time. 7. Case discussed with respiratory police shift commander nursing, day shift nursing, father, Internal Medicine, and administration. MD MUNA Ramos/[facility] /[id number]
[2020-02-25] MEDS ORDERED: FUROSEMIDE INJ 10 MG/ML 4 ML VIAL IV ONE (09:00)
[2020-02-25] MEDS ORDERED: ALBUMIN 25% 25GM 100ML 200 ML IV ONE (09:00)
[2020-02-25] MEDS: BALSAM PERU/CASTOR OIL 60 GM OINT...G. TP SCH (09:11)
[2020-02-25] MEDS: FLUCONAZOLE 100 MG TAB PO SCH (09:11)
[2020-02-25] MEDS: ENOXAPARIN INJ 80 MG/0.8 ML SYR SC SCH ×2 (09:11→21:15)
[2020-02-25] MEDS: HYDROXYCHLOROQUINE SULFATE 200 MG TAB PO SCH ×2 (09:11→21:15)
--- NOTE | 2020-02-25 10:07 | Diagnostic Imaging Report ---
EXAMINATION: CHEST SINGLE (PORTABLE) INDICATION: Respiratory failure COMPARISON: Multiple prior chest radiograph, most recently 02/24/2020 FINDINGS: LINES/TUBES:Endotracheal tube terminates 5 cm above the latasha. Enteric tube courses below the diaphragm and is postpyloric in position. Left PICC line terminates in the superior vena cava. EKG leads overlie the chest. LUNGS:Unchanged bilateral right greater than left airspace opacities. PLEURA:No pleural effusion or pneumothorax. MEDIASTINUM:The cardiomediastinal silhouette appears unchanged in size and shape. BONES/SOFT TISSUES:No acute osseous injury. Unchanged old healed right clavicular fracture. ABDOMEN:No free air under the diaphragm. IMPRESSION: Unchanged bilateral right greater than left airspace opacities consistent with known atypical pneumonia. Signed by: Humberto Lopez MD on 02/25/2020 10:04 AM
--- NOTE | 2020-02-25 10:10 | NUR ---
rocuronium off at 0800per dr. arias. tof is 0/4
[2020-02-25] MEDS ORDERED: SODIUM CHLORIDE 0.9% 250ML 250 ML ONE (11:09)
--- NOTE | 2020-02-25 12:31 | NUR ---
abg results given to . order to increase t volume and fio2. respiratory therapist notified and vent changes made.
--- NOTE | 2020-02-25 15:22 | Progress Note ---
DATE: SUBJECTIVE: Mr. Love remains on the ventilator. His PEEP in pressure and his FiO2 seems to be slowly better. There are no new complaints. REVIEW OF SYSTEMS: Could not be obtained. PHYSICAL EXAMINATION: GENERAL: Intubated and sedated. HEENT: Normocephalic. CHEST: Few crackles. HEART: S1 and S2. No S3, S4, or murmur. ABDOMEN: Soft. IMPRESSION: 1. COVID-19 viral pneumonia. 2. Acute respiratory failure. 3. Adult respiratory distress syndrome. 4. Genital herpes. 5. Deep venous thrombosis of the right femoral vein. PLAN: To finish 5 days of chloroquine in addition to Rocephin and azithromycin and continue with ventilator support. He is currently on anticoagulation. He is also on oral acyclovir. Discussed with the medical team at length. MD HARVEY Alexis/[facility] /[id number]
--- NOTE | 2020-02-25 16:21 | NUR ---
Nutrition Intervention Note RD Recommendation(s) for Physician: -Recommend modifying formula to Vital High Protein and when medically feasible to goal rate of 70 ml/hr (1680 kcal, 147 gram protein) - Water flushes per MD. Plan of Care: RD following, monitoring for tolerance and adequacy. TF recs. Nutrition reason for involvement: follow up RD Assessment 02/24: Follow up. Pt remains mechanically ventilated. Per RN, pt is tolerating tube feeding of Glucerna 1.2 @ 40 mL/hr. Recommend modifying formula to Vital High Protein. RD recommendation provided to nurse. Will continue to monitor. 02/20: 35 YOM admitted for hypoxemia, hyperglycemia with PMH listed below. Physical visit was deferred d/t hospitals infection disease policy. Pt is intubated on fentanyl and propofol. Pt is not on pressors as of now. The nurse reported the pt was ordered pressors over the weekend but has not needed it today. Nurse reported possible ARDS, they have not had to place the pt in the prone position yet. Pt was ordered Glucerna 1.2 at 20 ml/hr advance to goal rate of 60 ml/hr with 100 ml of water every 4 hours (1728 kcal, 86gram protein) . RD recommendations provided above and given to nurse. Unaware of propofol rate d/t not being able to enter the room and nurse not knowing at current time. Nurse reported the pt is currently on 20 ml/hr of Glucerna 1.2. Will continue to monitor. Principal Problems/Diagnoses: hypoxemia, hyperglycemia PMH: Uncontrolled type 2 diabetes mellitus. GI: flat, soft, nontender abdomen Skin: mid sacral ulceration with blister per wound care note Labs: 02/24: Cl 113, Glu 269 02/20: Cl 114, CO2 21, Creat 1.34, Gluc 138, Ca 8 Meds: insulin, lasix, lovenox, fentanyl, antibiotic, Ht: 71 in Wt: 215 lbs (02/23) 213 lb (02/20) BMI: 30.0 kg/m^2 IBW: 172 lbs Malnutrition Evaluation (02/20) -unable to perform nutrition assessment Nutrition Prescription (Diet Order):Glucerna 1.2 at 20 ml/hr, goal 60 ml/hr Estimated Nutritional Needs: Calories: 8066-7257 kcal/day (20- 25 kcal/kg/day) Weight used : IBW (78 kg) Protein : 117-156 protein/day (1.5-2 gram/kg/day ) Weight used: IBW Diet Adequacy: Not meeting calorie needs, Not meeting protein needs Diet Education Needs Assessment: Diet education not indicated, patient on temporary/transition diet. Nutrition Care Level: moderate Nutrition Diagnosis: Inadequate energy intake related to medical condition as evidenced by the pt needing mechanical ventilation and need for TF to meet energy and protein needs. Goal: Patient will meet 75-100% of estimated needs by follow up Progress: progressing Interventions: -TF (Composition, Rate, Route),Recommended Modifications, Collaboration with other providers Monitoring/Evaluation: -Total energy intake, Total protein intake, Formula/Solution Signed: Hazel Alonzo RD, LD
[2020-02-25] MEDS: AZITHROMYCIN 500MG/NS 250 ML 250 ML IV SCH (18:23)
--- NOTE | 2020-02-25 18:35 | NUR ---
patient bathed, linens changed. pt starting to respond to stimuli. desating. with current vent setting. using 100%fio2 boost with sats to 92%. rt notified. dr. arias notified. new orders obtained.
[2020-02-25] MEDS: ACETAMINOPHEN 325 MG TAB PO PRN ×2 (21:16→21:56)
[2020-02-26] VITALS (26 sets, daily range): BP systolic 118–176; BP diastolic 60–88
[2020-02-26] MEDS: INSULIN REGULAR, HUMAN 100 UNIT/1 ML 3ML VIAL SQ SCH ×4 (00:35→19:00)
[2020-02-26 05:05] LABS: BASOPHILS % 0.2 % (0.0-1.0); EOSINOPHILS % 0.2 % (0.0-6.0); HEMATOCRIT 29.7 % (38.2-49.6); HEMOGLOBIN 9.1 g/dL (14.0-18.0); LYMPHOCYTES # (AUTO) 0.5 (1.0-3.2); LYMPHOCYTES % 9.1 % (18.0-39.1); MEAN CORPUSCULAR HEMOGLOBIN 25.6 pg (28-32); MEAN CORPUSCULAR HGB CONC 30.6 g/dL (31-35); MEAN CORPUSCULAR VOLUME 83.4 fL (81-99); MONOCYTES # (AUTO) 0.6 (0.2-0.8); MONOCYTES % 10.4 % (4.4-11.3); NEUTROPHILS # (AUTO) 4.2 (2.1-6.9); PLATELET COUNT 373 x10e3/uL (140-360); RED BLOOD COUNT 3.56 x10e6/uL (4.3-5.7); RED CELL DISTRIBUTION WIDTH 15.2 % (11.7-14.4)
[2020-02-26 05:50] LABS: ALANINE AMINOTRANSFERASE 30 IU/L (0-55); ALBUMIN 2.6 g/dL (3.5-5.0); ALBUMIN/GLOBULIN RATIO 0.7 (0.8-2.0); ALKALINE PHOSPHATASE 115 IU/L (40-150); ANION GAP 11.9 mmol/L (8-16); BLOOD UREA NITROGEN 22 mg/dL (7-26); BUN/CREATININE RATIO 19 (6-25); CARBON DIOXIDE 28 mmol/L (22-29); CHLORIDE 113 mmol/L (98-107); CREATININE, SERUM 1.14 mg/dL (0.72-1.25); EST GLOMERULAR FILTRATION RATE > 60 ML/MIN (60-); GLUCOSE 180 mg/dL (74-118); POTASSIUM 4.9 mmol/L (3.5-5.1); SODIUM 148 mmol/L (136-145)
[2020-02-26] MEDS: ACYCLOVIR 200 MG CAP PO SCH ×3 (05:54→22:15)
[2020-02-26] MEDS: CEFEPIME 1GM/NS 0.9% 50 ML 50 ML IV SCH ×2 (05:54→14:45)
[2020-02-26] MEDS: ROCURONIUM BROMIDE 250 MG in SODIUM CHLORIDE 0.9% 250ML 225 ML IV SCH ×2 (06:22→17:00)
[2020-02-26] MEDS ORDERED: ALBUMIN 25% 25GM 100ML 0.25 GM/ML BTL IV ONE ×2 (07:15→07:25)
[2020-02-26] MEDS: FENTANYL CITRATE INJ 2,000 MCG in SODIUM CHLORIDE 0.9% 250ML 210 ML IV PRN ×2 (07:30→17:00)
[2020-02-26] MEDS: BALSAM PERU/CASTOR OIL 60 GM OINT...G. TP SCH (08:24)
[2020-02-26] MEDS: HYDROXYCHLOROQUINE SULFATE 200 MG TAB PO SCH (08:24)
[2020-02-26] MEDS: ENOXAPARIN INJ 80 MG/0.8 ML SYR SC SCH (08:24)
--- NOTE | 2020-02-26 11:07 | Diagnostic Imaging Report ---
EXAMINATION: CHEST SINGLE (PORTABLE) INDICATION: Respiratory failure COMPARISON: Multiple prior chest radiograph, most recently 02/25/2020. CT chest dated 02/18/2020. FINDINGS: LINES/TUBES:Endotracheal tube terminates above the sternum. Enteric tube courses below the diaphragm and is postpyloric in position. Left PICC line terminates in the superior vena cava. EKG leads overlie the chest. LUNGS:Unchanged bilateral right greater than left airspace opacities. PLEURA:No pleural effusion or pneumothorax. MEDIASTINUM:The cardiomediastinal silhouette appears unchanged in size and shape. BONES/SOFT TISSUES:No acute osseous injury. Unchanged old healed right clavicular fracture. ABDOMEN:No free air under the diaphragm. IMPRESSION: Unchanged bilateral right greater than left airspace opacities consistent with known atypical pneumonia. High position of the endotracheal tube and recommend advancement. Signed by: Sotero Limon MD on 02/26/2020 11:04 AM
--- NOTE | 2020-02-26 13:21 | Progress Note ---
DATE: SUBJECTIVE: The patient is now paralysed again. He is on pressure regulated volume control with a PEEP of 14 and FiO2 of 75%. He is receiving full-dose Lovenox for his deep vein thrombosis. PHYSICAL EXAMINATION: VITAL SIGNS: The patient is afebrile, blood pressure is 151/78, saturation is 94%, and pulse is 97. HEENT: Shows no facial swelling or erythema. CARDIAC: Reveals regular rate and rhythm with normal S1 and S2. LUNGS: Auscultation of lungs reveals rhonchorous breath sounds bilaterally. There is no wheezing. ABDOMEN: Soft, nontender. There is no rebound or guarding. EXTREMITIES: Examination of the extremities shows thrombosis and swelling in the right lower extremity. LABORATORY DATA: White blood cell count is 5.3, hemoglobin is 9.1, and platelet count is 373. BUN to creatinine ratio is normal. Blood sugar is 133. RADIOGRAPHIC DATA: The patient has bilateral infiltrates. The ET tube is too high. IMPRESSION: 1. Acute respiratory failure. 2. Acute respiratory distress syndrome. 3. Viral pneumonia secondary to COVID-19. 4. Deep vein thrombosis in the right femoral vein. PLAN: 1. Advance ET tube 3-4 cm. 2. Continue paralytics along with Versed and fentanyl. 3. Continue enteral feedings. 4. Continue mechanical ventilation with FiO2 of 75%, PEEP of 14. 5. The patient will be placed in the prone position later today or early this evening. Case discussed with Respiratory, shift foreman nursing, dayshift nursing, and Infectious Disease. Severiano Crow MD [facility]/[place] /[id number]
--- NOTE | 2020-02-26 14:26 | Progress Note ---
DATE: Internal Medicine Progress Note SUBJECTIVE: The patient is on the ventilator right now. PHYSICAL EXAMINATION: HEART: Show regular rhythm. Normal S1, S2 sounds. LUNGS: Show rhonchorous breath bilaterally. No wheezing. ABDOMEN: Soft, nontender. No rebound, no guarding. EXTREMITIES: Show edema on the right lower extremity. VITAL SIGNS: Temperature 98.7, heart rate 97 per minute, respiratory rate 22 per minute, blood pressure 151/78, and oxygen saturation 94%. LABORATORY STUDIES: CBC, white blood count 5.29, hemoglobin 9.1, hematocrit 29.7, and platelet count 333,000, lymphocytes are low at 9.1, neutrophils 79.0, monocyte 10.4, eosinophils 0.2, basophils 0.2. MICROBIOLOGY: Blood cultures are negative. Urine culture show mixed milli contamination, nothing else. FINAL IMPRESSION: 1. Acute respiratory failure secondary to adult respiratory distress syndrome. 2. Viral pneumonia secondary to COVID-19. 3. DVT of the femoral vein. PLAN OF TREATMENT: We are going to continue with Zithromax 500 g IV daily, cefepime 1 g IV q.8 hours, Versed drip for sedation, Tylenol 650 mg q.6 hours as needed for pain, Zovirax 800 mg q.8 hours, MiraLAX one application daily, Lovenox 80 mg twice a day for DVT, Diflucan 200 mg daily, furosemide 40 mg IV one time, hydroxychloroquine 200 mg twice a day. Continue to monitor blood sugar q.6 hours. Ambien 5 mg as needed for insomnia. Labs have been reviewed. Consult on report have been reviewed. Discussed with the nurse at the bedside. Time spent around 45 minutes. MD PB Julian/FREDY /[id number]
[2020-02-26] MEDS ORDERED: SODIUM CHLORIDE 0.9% 250ML 250 ML ONE (16:59)
[2020-02-26] MEDS: MIDAZOLAM HCL 50 MG in SODIUM CHLORIDE 0.9% 100 ML 90 ML IV PRN ×2 (17:00→23:15)
[2020-02-26] MEDS: AZITHROMYCIN 500MG/NS 250 ML 250 ML IV SCH (17:45)
[2020-02-26] MEDS ORDERED: HEPARIN SOD (PORCINE) 5,000 UNIT/ML VIAL IV NR (18:30)
[2020-02-26] MEDS ORDERED: HEPARIN 25,000 UNIT 1,500 UNIT in DEXTROSE 5% 250ML 250 ML IV SCH (18:30)
[2020-02-27] VITALS (26 sets, daily range): BP systolic 114–162; BP diastolic 62–83
[2020-02-27 00:35] LABS: INR 1.14; PROTHROMBIN TIME 15.3 seconds (11.9-14.5)
[2020-02-27] MEDS: INSULIN REGULAR, HUMAN 100 UNIT/1 ML 3ML VIAL SQ SCH ×4 (00:42→17:41)
[2020-02-27 00:46] LABS: PARTIAL THROMBOPLASTIN TIME 128.4 seconds (23.8-35.5)
[2020-02-27] MEDS: MIDAZOLAM HCL 50 MG in SODIUM CHLORIDE 0.9% 100 ML 90 ML IV PRN ×2 (05:58→21:56)
[2020-02-27] MEDS: ACYCLOVIR 200 MG CAP PO SCH (05:58)
[2020-02-27 06:08] LABS: ANION GAP 9.6 mmol/L (8-16); BLOOD UREA NITROGEN 20 mg/dL (7-26); BUN/CREATININE RATIO 24 (6-25); CALCIUM 9.1 mg/dL (8.4-10.2); CARBON DIOXIDE 30 mmol/L (22-29); CHLORIDE 113 mmol/L (98-107); CREATININE, SERUM 0.83 mg/dL (0.72-1.25); EST GLOMERULAR FILTRATION RATE > 60 ML/MIN (60-); GLUCOSE 140 mg/dL (74-118); POTASSIUM 4.6 mmol/L (3.5-5.1); SODIUM 148 mmol/L (136-145)
[2020-02-27 06:46] LABS: FERRITIN 723.05 ng/mL (21.81-274.66)
[2020-02-27 07:13] LABS: BASOPHILS % 0.2 % (0.0-1.0); EOSINOPHILS % 0.7 % (0.0-6.0); HEMATOCRIT 30.4 % (38.2-49.6); HEMOGLOBIN 9.3 g/dL (14.0-18.0); LYMPHOCYTES # (AUTO) 0.5 (1.0-3.2); LYMPHOCYTES % 8.5 % (18.0-39.1); MEAN CORPUSCULAR HEMOGLOBIN 25.4 pg (28-32); MEAN CORPUSCULAR HGB CONC 30.6 g/dL (31-35); MEAN CORPUSCULAR VOLUME 83.1 fL (81-99); MONOCYTES # (AUTO) 0.6 (0.2-0.8); MONOCYTES % 11.8 % (4.4-11.3); NEUTROPHILS # (AUTO) 4.2 (2.1-6.9); NEUTROPHILS % 78.1 % (38.7-80.0); PLATELET COUNT 405 x10e3/uL (140-360); RED BLOOD COUNT 3.66 x10e6/uL (4.3-5.7); RED CELL DISTRIBUTION WIDTH 14.9 % (11.7-14.4)
[2020-02-27] MEDS ORDERED: IRON SUCROSE 100 MG in SODIUM CHLORIDE 0.9% 100 ML 100 ML IV SCH (07:15)
[2020-02-27 07:33] LABS: ALANINE AMINOTRANSFERASE 25 IU/L (0-55); ALBUMIN 2.5 g/dL (3.5-5.0); ALBUMIN/GLOBULIN RATIO 0.7 (0.8-2.0); ALKALINE PHOSPHATASE 89 IU/L (40-150); ANION GAP 9.7 mmol/L (8-16); BLOOD UREA NITROGEN 20 mg/dL (7-26); BUN/CREATININE RATIO 25 (6-25); CALCIUM 8.4 mg/dL (8.4-10.2); CARBON DIOXIDE 29 mmol/L (22-29); CHLORIDE 113 mmol/L (98-107); EST GLOMERULAR FILTRATION RATE > 60 ML/MIN (60-); GLUCOSE 147 mg/dL (74-118); POTASSIUM 4.7 mmol/L (3.5-5.1); SODIUM 147 mmol/L (136-145)
[2020-02-27] MEDS: BALSAM PERU/CASTOR OIL 60 GM OINT...G. TP SCH (09:26)
[2020-02-27] MEDS ORDERED: MIDAZOLAM HCL 25 MG in SODIUM CHLORIDE 0.9% 50ML 45 ML IV PRN (09:45)
--- NOTE | 2020-02-27 10:42 | Diagnostic Imaging Report ---
EXAMINATION: CHEST SINGLE (PORTABLE) INDICATION: ^ett ^[id number] ^[id number] COMPARISON: 02/26/2020 FINDINGS: AP view TUBES and LINES: Endotracheal tube is stable with tip just above the level of the clavicles, approximately 5.8 cm above latasha. Again seen subdiaphragmatic enteric tube with tip extending outside of the left knee. LUNGS: Lungs are well inflated. Bilateral airspace opacities, right greater than left. PLEURA: No significant pleural effusion or pneumothorax. HEART AND MEDIASTINUM: The cardiomediastinal silhouette is unremarkable. BONES AND SOFT TISSUES: No acute osseous lesion. Soft tissues are unremarkable. UPPER ABDOMEN: No free air under the diaphragm. IMPRESSION: Unchanged high position of endotracheal tube. Redemonstration of bilateral airspace opacities, right greater than left, not significantly changed from prior exam. Signed by: Dr. Chalo Davis MD on 02/27/2020 10:38 AM
[2020-02-27] MEDS ORDERED: METHYLPREDNISOLONE SOD SUCC 40 MG/ML VIAL 1ML IV NR ×2 (11:30→17:45)
--- NOTE | 2020-02-27 12:49 | Progress Note ---
DATE: SUBJECTIVE: The patient was in the prone position last night and is now back in the supine position. He remains on PRVC with a PEEP of 14 and FiO2 of 85%. His tidal volume is set at 410 and his respiratory rate is set at 22. He was seen by hematology yesterday and was started on IV heparin in place of Lovenox. PHYSICAL EXAMINATION: VITAL SIGNS: The patient is afebrile. He is currently on a PRVC mode of ventilation. His PEEP is set at 14, his FiO2 is set at 85%. His blood pressure is 141/68. His saturation is 95%. HEENT: Shows no facial swelling or erythema. There is no oral endotracheal tube in place. CARDIAC: Reveals regular rate and rhythm with normal S1, S2. LUNGS: Auscultation of lungs reveals rhonchorous breath sounds bilaterally. There is no wheezing. ABDOMEN: Soft, nontender. There is no rebound or guarding. EXTREMITIES: Show no leg edema or calf tenderness. There is no cyanosis or clubbing. SKIN: Shows no rashes. NEUROLOGICAL: Shows no focal abnormalities. LABORATORY DATA: The BUN to creatinine ratio is 20 to 0.8. The sodium is 147. White blood cell count is 5.1, hemoglobin is 9.3. The platelet count is 405. RADIOGRAPHIC DATA: Chest x-ray shows high position in the endotracheal tube. There are bilateral airspace opacities. IMPRESSION: 1. Acute respiratory failure. 2. COVID-19 and viral pneumonia. 3. Deep vein thrombosis. 4. Diabetes. PLAN: 1. Advance ET tube 3 to 4 cm. 2. Wean FiO2 as tolerated. 3. Continue to maintain low tidal volumes and high PEEP with a plateau pressure less than 30. Continue to prone the patient as needed. 4. Case discussed with Respiratory, shift engineer nursing, dayshift nursing, administration, and Internal Medicine. Greater than 35 minutes in direct critical care time. MD MUNA Ramos/FREDY /[id number]
--- NOTE | 2020-02-27 13:19 | Progress Note ---
DATE: Internal Medicine Progress Note SUBJECTIVE: The patient is on the ventilator. PHYSICAL EXAMINATION: HEART: Regular rhythm. Normal S1, S2 sound. LUNGS: Clear bilaterally. LABORATORY STUDIES: CBC; white blood count 5.3, hemoglobin 9.1, and platelet count 373,000. Chest x-ray showed bilateral infiltrates. Last CBC white blood count 5.41, hemoglobin 9.3, hematocrit 30.4, platelet count 405,000. BMP; sodium 147, potassium 4.7, chloride 113, carbon dioxide 29, BUN 20, creatinine 0.80, and glucose 147. Iron 15, TIBC 172, iron saturation 9, transferrin 123, and ferritin 723. AST 25, ALT 25, and vitamin B12 of 644. FINAL IMPRESSION: 1. Acute respiratory failure. 2. Adult respiratory distress syndrome. 3. Viral pneumonia secondary to COVID-19. 4. Deep venous thrombosis on the right femoral vein. PLAN OF TREATMENT: Continue ventilator support. Continue with heparin drip because of DVT. Venofer 100 mg IV once a day, Versed to titrate for sedation, to titrate for sedation. We are going to continue the Tylenol 650 mg q.6 hours as needed for mild pain, Zovirax 600 mg q.8 hours, Balsam Dion/castor oil 60 g daily topically, and monitor blood sugar q.6 hours. Bridge Painter's report has been reviewed. Discussed with the nurse at bedside. Labs have been reviewed. X-ray has been reviewed. TIME SPENT: Around 35 minutes. MD PB Julian/FREDY /[id number]
[2020-02-27] MEDS: ROCURONIUM BROMIDE 250 MG in SODIUM CHLORIDE 0.9% 250ML 225 ML IV SCH ×2 (14:23→21:56)
[2020-02-27] MEDS ORDERED: ALTEPLASE RECOMBINANT 2 MG/2 ML VIAL IV NR (15:00)
--- NOTE | 2020-02-27 17:10 | Progress Note ---
DATE: SUBJECTIVE: Mr. Love remains in the intensive care unit. The patient is seen and examined. Chart reviewed. Discussed with Dr. Severiano Crow. The patient overnight was in prone position, back on supine position. His PEEP is 14, FiO2 85%, tidal volume is 410, respiratory rate is about 22. He was started on IV heparin for his DVT yesterday by Hematology/Oncology. REVIEW OF SYSTEMS: Could not be obtained. PHYSICAL EXAMINATION: GENERAL: He is about the same. VITAL SIGNS: He is about the same. Temperature 98.4, heart rate of 93, respirations 24, blood pressure 144/70. HEENT: Normocephalic. CHEST: A few crackles. COR: S1 and S2 with no murmur. ABDOMEN: Soft. IMPRESSION: 1. The patient was seen and examined today. Chest x-ray reviewed. There was concern that he has more infiltrate on his right side, which could reflect aspiration pneumonia. But we just stopped his antibiotic yesterday, so I am going to observe him really closely now and see what happens. Should he spike fever or his ventilator setting deteriorate, may have to restart antibiotic for healthcare-associated pneumonia. 2. COVID-19, due to RDS, the plan is to recheck his COVID-19 on Friday from bronchial aspirate. In case, we have to do a trach or other procedure on him to clear him. 3. Deep venous thrombosis, on heparin. 4. We will follow up. MD HARVEY Alexis/FREDY /[id number]
--- NOTE | 2020-02-27 17:15 | Diagnostic Imaging Report ---
EXAMINATION: CHEST SINGLE (PORTABLE) INDICATION: ^ETT ADVANCED. NEED RECHECK POSITION ETT ^[id number] ^1600 COMPARISON: Same day at 9:54 AM FINDINGS: AP view TUBES and LINES: Again seen endotracheal tube with tip approximately 4.5 cm above latasha. Stable left PICC and nasogastric tube. LUNGS: Lungs are well inflated. Again seen diffuse bilateral airspace opacities, slightly improved on the right side PLEURA: No significant pleural effusion or pneumothorax. HEART AND MEDIASTINUM: The cardiomediastinal silhouette is unremarkable. BONES AND SOFT TISSUES: No acute osseous lesion. Soft tissues are unremarkable. UPPER ABDOMEN: No free air under the diaphragm. IMPRESSION: Endotracheal tube with tip approximately 4.5 cm above latasha. Redemonstration of right greater than left bilateral airspace opacities which is slightly improved on the right side when compared to prior exam. Signed by: Dr. Chalo Davis MD on 02/27/2020 5:12 PM
--- NOTE | 2020-02-27 19:36 | Operative Report ---
DATE OF PROCEDURE: SURGEON: Severiano Crow MD PROCEDURE: Direct laryngoscopy and bronchoscopy. PREOPERATIVE DIAGNOSES: Respiratory failure and COVID-19. POSTOPERATIVE DIAGNOSES: Respiratory failure and COVID-19. ANESTHESIA: The patient was on Versed, fentanyl, and rocuronium at the time of the procedure. CONSENT: Consent was deemed emergent based on the jeopardy to his airway. PROCEDURE IN DETAIL: The patient was sitting upright at 45-degree angle. A laryngoscope was used to visualize the endotracheal tube. There was some mucus in the endotracheal tube. The tube terminated in the proximal trachea. The tracheal mucosa was normal. The latasha appeared normal. The right tracheobronchial tree appeared normal. There was a normal right upper lobe orifice, right middle lobe orifice, and right lower lobe orifice. The laryngoscope was then repositioned into the left tracheobronchial tree. The orifice to the left upper lobe and lingula was normal. The orifice to the left lower lobe was normal. There were no endobronchial lesions. The scope was then placed through the mouth. The base of the tongue appeared normal. The endotracheal tube was in the glottis. There was also an orogastric tube extending into the esophagus. COMPLICATIONS: None. ESTIMATED BLOOD LOSS: None. Severiano Crow MD [facility]/[place] /[id number]
--- NOTE | 2020-02-27 19:39 | Diagnostic Imaging Report ---
EXAMINATION: CHEST SINGLE (PORTABLE) COMPARISON: Chest x-ray 1609 hours INDICATION: Endotracheal tube advancement ^[id number] ^1750 DISCUSSION: Frontal view of the chest obtained at 1804 hours. HEART AND MEDIASTINUM: The cardiomediastinal silhouette is unremarkable. LINES: Endotracheal tube terminates 5 to 6 cm above the latasha. Left PICC line terminates in the SVC without pneumothorax. Enteric tube extends past the diaphragm LUNGS/PLEURA: Multifocal infiltrates are redemonstrated, right lung more severe than the left. Stable small bilateral pleural effusions. No pneumothorax. BONES AND SOFT TISSUES: Stable. IMPRESSION: Support devices as described above. No change in multifocal infiltrates and pleural effusions. Signed by: Dr. Khadar Barrett MD on 02/27/2020 7:34 PM
--- NOTE | 2020-02-27 19:44 | Diagnostic Imaging Report ---
EXAMINATION: CHEST SINGLE (PORTABLE) COMPARISON: Chest x-ray 1804 hours INDICATION: Status post bedside bronchoscopy ^[id number] ^1830 DISCUSSION: Frontal view of the chest obtained at 1842 hours. HEART AND MEDIASTINUM: The cardiomediastinal silhouette is unremarkable. LINES: Endotracheal tube is low-lying but poorly visualized due to underpenetration of the image. Enteric tube extends past the diaphragm. Left PICC line terminates in the SVC. LUNGS/PLEURA: Multifocal infiltrates are redemonstrated, right lung more severe than the left. Stable small bilateral pleural effusions. No pneumothorax. BONES AND SOFT TISSUES: Stable. IMPRESSION: 1. Low lying endotracheal tube. Recommend retraction by approximately 2 cm. 2. Stable pleural effusions. No pneumothorax. 3. No change in multifocal pulmonary infiltrates. Signed by: Dr. Khadar Barrett MD on 02/27/2020 7:41 PM
[2020-02-27] MEDS: ENOXAPARIN INJ 80 MG/0.8 ML SYR SC SCH (21:00)
[2020-02-28] VITALS (28 sets, daily range): BP systolic 99–195; BP diastolic 57–96
[2020-02-28] MEDS: INSULIN REGULAR, HUMAN 100 UNIT/1 ML 3ML VIAL SQ SCH ×4 (00:42→17:54)
[2020-02-28] MEDS: FENTANYL CITRATE INJ 2,000 MCG in SODIUM CHLORIDE 0.9% 250ML 210 ML IV PRN ×3 (02:53→17:55)
[2020-02-28] MEDS: MIDAZOLAM HCL 50 MG in SODIUM CHLORIDE 0.9% 100 ML 90 ML IV PRN ×4 (04:00→21:15)
[2020-02-28] MEDS: ROCURONIUM BROMIDE 250 MG in SODIUM CHLORIDE 0.9% 250ML 225 ML IV SCH ×4 (04:00→21:58)
[2020-02-28 05:15] LABS: BASOPHILS % 0.2 % (0.0-1.0); HEMATOCRIT 30.5 % (38.2-49.6); HEMOGLOBIN 9.2 g/dL (14.0-18.0); LYMPHOCYTES # (AUTO) 0.3 (1.0-3.2); LYMPHOCYTES % 6.1 % (18.0-39.1); MEAN CORPUSCULAR HEMOGLOBIN 25.1 pg (28-32); MEAN CORPUSCULAR HGB CONC 30.2 g/dL (31-35); MEAN CORPUSCULAR VOLUME 83.1 fL (81-99); MONOCYTES # (AUTO) 0.2 (0.2-0.8); MONOCYTES % 3.3 % (4.4-11.3); NEUTROPHILS # (AUTO) 4.9 (2.1-6.9); NEUTROPHILS % 89.7 % (38.7-80.0); PLATELET COUNT 371 x10e3/uL (140-360); RED BLOOD COUNT 3.67 x10e6/uL (4.3-5.7); RED CELL DISTRIBUTION WIDTH 14.6 % (11.7-14.4)
[2020-02-28 05:39] LABS: ALANINE AMINOTRANSFERASE 24 IU/L (0-55); ALBUMIN 2.2 g/dL (3.5-5.0); ALBUMIN/GLOBULIN RATIO 0.5 (0.8-2.0); ALKALINE PHOSPHATASE 81 IU/L (40-150); ANION GAP 13.2 mmol/L (8-16); BLOOD UREA NITROGEN 26 mg/dL (7-26); BUN/CREATININE RATIO 30 (6-25); CALCIUM 8.9 mg/dL (8.4-10.2); CARBON DIOXIDE 29 mmol/L (22-29); CHLORIDE 111 mmol/L (98-107); CREATININE, SERUM 0.87 mg/dL (0.72-1.25); EST GLOMERULAR FILTRATION RATE > 60 ML/MIN (60-); GLUCOSE 233 mg/dL (74-118); POTASSIUM 5.2 mmol/L (3.5-5.1); SODIUM 148 mmol/L (136-145)
[2020-02-28 07:15] LABS: EOSINOPHILS % (MANUAL) 1 % (0-7); LYMPHOCYTES % (MANUAL) 6 % (19-48); MONOCYTES % (MANUAL) 2 % (3.4-9.0); NEUTROPHILS % (MANUAL) 91 % (40-74)
[2020-02-28 07:17] LABS: STOMATOCYTES SLIGHT
[2020-02-28 07:18] LABS: PLATELET ESTIMATE ADEQUATE; PLATELET MORPHOLOGY COMMENT NORMAL; RBC MORPHOLOGY COMMENT NORMAL
[2020-02-28] MEDS: BALSAM PERU/CASTOR OIL 60 GM OINT...G. TP SCH (08:31)
[2020-02-28] MEDS: ENOXAPARIN INJ 80 MG/0.8 ML SYR SC SCH ×2 (08:31→20:54)
--- NOTE | 2020-02-28 08:55 | Progress Note ---
DATE: 02/28/2020 CHIEF COMPLAINT/HISTORY OF PRESENT ILLNESS: This 35-year-old man, whose primary treating diagnosis is acute respiratory failure from acute respiratory distress syndrome secondary to bilateral COVID-19 pneumonia. The patient is currently on a ventilator AC mode with FiO2 of 90%. His oxygen saturation is 96%. Blood work today revealed white blood cell count of 5400 with 91% segmented neutrophils. Hemoglobin 9.2 g/dL. Today's potassium is 5.2. BUN and creatinine are 26 and 0.87 respectively. Chest film performed yesterday, February 27, 2020, revealed stable pleural effusions as well as multifocal infiltrates bilaterally, more pronounced on the right. REVIEW OF SYSTEMS: As per HPI. PHYSICAL EXAMINATION: GENERAL: He is intubated, sedated, and paralyzed. VITAL SIGNS: He is on AC mode, FiO2 of 90%, oxygen saturation 96%. The patient has been afebrile in the last 48 hours. Temperature currently 96.4, blood pressure is 138/90, pulse is 100, respiratory rate 26. INTEGUMENT: Skin is warm and dry. No pallor, jaundice, or diaphoresis. The patient apparently has a deep tissue injury in the sacral area. HEENT: Anicteric sclerae. He has endotracheal and orogastric tube in place. NECK: Supple. CARDIOVASCULAR: Tachycardic rate, regular rhythm. LUNGS: The patient has diminished breath sounds at the bases with bibasilar crackles. ABDOMEN: Soft. Normal bowel sounds. EXTREMITIES: The patient has edema in the bilateral lower extremities, more pronounced on the right. NEUROLOGIC: He is currently sedated and paralyzed and on a ventilator as previous stated. DIAGNOSES: 1. Sepsis secondary to bilateral COVID-19 viral pneumonia. 2. Acute respiratory distress syndrome. 3. Bilateral COVID-19 viral pneumonia. 4. Type 2 diabetes mellitus. 5. Hyperkalemia. 6. Acute right leg deep venous thrombosis. PLAN: 1. We will repeat COVID-19 serology testing. 2. If the repeat COVID-19 test is negative, we will likely proceed with tracheostomy tube placement as recommended by the medicaid billing specialist. 3. Continue enoxaparin 80 mg subcutaneous twice a day for the patient's deep venous thrombosis. 4. Continue aggressive respiratory care. 5. Continue aggressive oxygenation via ventilator. 6. Optimize the patient's nutritional status with tube feeds. 7. Blood glucose control. 8. Insulin therapy should help lower the patient's potassium level. I spent 30 minutes in the care of this intensive care unit patient. MD OLVIN Blackburn/FREDY /[id number] SHERIF
--- NOTE | 2020-02-28 10:47 | NUR ---
dr. nichole consult called this morning. dr. nichole aware
--- NOTE | 2020-02-28 12:06 | Diagnostic Imaging Report ---
EXAMINATION: CHEST SINGLE (PORTABLE) INDICATION: Pneumonia COMPARISON: Multiple prior chest radiograph most recently of 02/27/2020 FINDINGS: LINES/TUBES:Endotracheal tube terminates 4.5 cm above the latasha. Left PICC line terminates in the superior vena cava. Enteric tube projects below the diaphragm with tip not visualized. EKG leads overlie the chest. LUNGS:Unchanged bilateral right greater than left patchy airspace opacities. PLEURA:No pleural effusion or pneumothorax. MEDIASTINUM:The cardiomediastinal silhouette appears unchanged in size and shape. BONES/SOFT TISSUES:No acute osseous injury. Old right clavicular fracture. ABDOMEN:No free air under the diaphragm. IMPRESSION: No significant interval change. Signed by: Humberto Lopez MD on 02/28/2020 12:03 PM
--- NOTE | 2020-02-28 12:31 | Progress Note ---
DATE: SUBJECTIVE: Mr. Love remains in the intensive care unit. He is intubated, still on PEEP and O2 of 75. Fever resolved today has been in the hospital since February 18. His cultures are all negative. REVIEW OF SYSTEMS: Could not be obtained. LABORATORY DATA: Reviewed. White count 5.29, hemoglobin of 9. Sodium 148. PHYSICAL EXAMINATION: GENERAL: The patient is sedated, intubated. CHEST: Few crackles bilateral. COR: S1 and S2. No S3, S4, or murmur. ABDOMEN: Soft. IMPRESSION: COVID-19 pneumonia with acute respiratory distress syndrome with respiratory failure present on admission. Clinically remains very ill. His acute respiratory distress syndrome is the same at present time. At day 14, I am going to check COVID PCR again from pulmonary secretions, anticipating he may need a trach. I am also going to stop his antibiotic at the present time. Herpetic lesion on the penis seems to be getting better. To finish seven days of acyclovir. ARDS, respiratory failure. Continue with the same. We will follow. MD HARVEY Alexis/[facility]L /[id number]
[2020-02-28] MEDS: PROPOFOL IV EMULSION 10MG/ML 100 ML IV SCH ×2 (13:45→19:45)
[2020-02-28] MEDS ORDERED: PROPOFOL IV EMULSION 10MG/ML 100 ML ONE (13:46)
--- NOTE | 2020-02-28 13:52 | Progress Note ---
DATE: SUBJECTIVE: The patient remains on mechanical ventilation with the PRVC set at 24, tidal volume of 350. The PEEP is set at 16 and FiO2 is set at 90%. The patient continues on Lovenox for deep vein thrombosis. PHYSICAL EXAMINATION: VITAL SIGNS: The patient is afebrile, blood pressure is 156/76, respiratory rate is 26, and saturation is 97%. HEENT: Shows no facial swelling or erythema. CARDIAC: Reveals regular rate and rhythm with normal S1, S2. LUNGS: Auscultation of lungs reveals rhonchorous breath sounds bilaterally. There is no wheezing. ABDOMEN: Soft, nontender. There is no rebound or guarding. EXTREMITIES: Show continued edema in the right leg. There is some skin breakdown. LABORATORY DATA: Sodium is 148 and the BUN to creatinine ratio is 26 to 0.87. The glucose is 233. Albumin is 2.2. White blood cell count is 5.4, the hemoglobin is 9.2, and the platelet count is 371. RADIOGRAPHIC DATA: Chest x-ray shows continued bilateral infiltrates. IMPRESSION: 1. Acute respiratory failure. 2. Acute respiratory distress syndrome. 3. Mild pneumonia secondary to COVID-19. 4. Type 2 diabetes. 5. Deep vein thrombosis. PLAN: 1. Continue the lung protective strategy with low tidal volumes and high PEEP. 2. Wean oxygen as tolerated. 3. Continue to place the patient in the prone position at night. 4. Continue Lovenox for deep vein thrombosis. 5. Continue enteral feedings with attention to blood sugars. 6. Complete therapy with hydroxychloroquine. 7. Case discussed with nightshift nursing, dayshift nursing, Respiratory, Internal Medicine, and the administration. Greater than 35 minutes in direct critical care time. Severiano Crow MD [facility] /[id number]
--- NOTE | 2020-02-28 15:41 | Progress Note ---
DATE: SUBJECTIVE: Mr. Love remains on the vent, remains on high setting. The plan for him he may need to be trached. The patient basically unchanged. His PEEP 16, FiO2 90%. The patient with respiratory failure. PHYSICAL EXAMINATION: VITAL SIGNS: Afebrile. Blood pressure is stable. HEENT: He is not icteric. CHEST: Few crackles. IMPRESSION: 1. Acute respiratory failure, acute respiratory distress syndrome, pneumonia secondary to COVID-19. 2. Diabetes mellitus. 3. Neuropathy. 4. Deep venous thrombosis. PLAN: To recheck PCR from the tracheal suction at day #15 to proceed with tracheostomy if that is negative. Continue supportive care. The patient is at risk for aspiration pneumonia, healthcare associated pneumonia, etc. Daily monitoring. Currently, the patient is off antibiotic. MD HARVEY Alexis/MOD[facility] /[id number]
[2020-02-29] VITALS (23 sets, daily range): BP systolic 113–166; BP diastolic 66–89
[2020-02-29] MEDS: INSULIN REGULAR, HUMAN 100 UNIT/1 ML 3ML VIAL SQ SCH ×5 (00:45→23:38)
[2020-02-29] MEDS: FENTANYL CITRATE INJ 2,000 MCG in SODIUM CHLORIDE 0.9% 250ML 210 ML IV PRN ×3 (00:46→23:45)
[2020-02-29] MEDS: ROCURONIUM BROMIDE 250 MG in SODIUM CHLORIDE 0.9% 250ML 225 ML IV SCH ×2 (03:49→22:46)
[2020-02-29 04:59] LABS: BASOPHILS % 0.2 % (0.0-1.0); EOSINOPHILS % 0.2 % (0.0-6.0); HEMATOCRIT 29.2 % (38.2-49.6); HEMOGLOBIN 8.8 g/dL (14.0-18.0); LYMPHOCYTES # (AUTO) 0.6 (1.0-3.2); LYMPHOCYTES % 10.7 % (18.0-39.1); MEAN CORPUSCULAR HEMOGLOBIN 25.1 pg (28-32); MEAN CORPUSCULAR HGB CONC 30.1 g/dL (31-35); MEAN CORPUSCULAR VOLUME 83.4 fL (81-99); MONOCYTES # (AUTO) 0.6 (0.2-0.8); MONOCYTES % 11.2 % (4.4-11.3); NEUTROPHILS % 77.1 % (38.7-80.0); PLATELET COUNT 404 x10e3/uL (140-360); RED CELL DISTRIBUTION WIDTH 14.6 % (11.7-14.4)
[2020-02-29] MEDS: MIDAZOLAM HCL 50 MG in SODIUM CHLORIDE 0.9% 100 ML 90 ML IV PRN (05:07)
[2020-02-29 05:18] LABS: ALANINE AMINOTRANSFERASE 23 IU/L (0-55); ALBUMIN 2.1 g/dL (3.5-5.0); ALBUMIN/GLOBULIN RATIO 0.5 (0.8-2.0); ALKALINE PHOSPHATASE 82 IU/L (40-150); ANION GAP 10.7 mmol/L (8-16); BLOOD UREA NITROGEN 31 mg/dL (7-26); BUN/CREATININE RATIO 36 (6-25); CARBON DIOXIDE 30 mmol/L (22-29); CHLORIDE 115 mmol/L (98-107); CREATININE, SERUM 0.87 mg/dL (0.72-1.25); EST GLOMERULAR FILTRATION RATE > 60 ML/MIN (60-); GLUCOSE 169 mg/dL (74-118); POTASSIUM 4.7 mmol/L (3.5-5.1); SODIUM 151 mmol/L (136-145)
--- NOTE | 2020-02-29 09:05 | Progress Note ---
DATE: 02/29/2020 CHIEF COMPLAINT/HISTORY OF PRESENT ILLNESS: This is a 35-year-old man, whose primary treatment diagnosis is acute respiratory failure secondary to acute respiratory distress syndrome from COVID-19 pneumonia. The patient is currently on a ventilator, AC mode with oxygen saturation 97% on FiO2 of 80%. Today's sodium was elevated with a value of 151. BUN and creatinine are 31 and 0.87 respectively. The patient's white blood cell count is 5100 with 77% segmented neutrophils. Hemoglobin is 8.8 g/dL. The patient is on high-dose enoxaparin twice a day because he has an acute right lower leg deep venous thrombosis. The patient underwent chest x-ray yesterday on 02/28/2020, which revealed unchanged bilateral right greater than left patchy airspace opacities. REVIEW OF SYSTEMS: As per HPI. PHYSICAL EXAMINATION: GENERAL: He is sedated and paralyzed and currently on a ventilator as previous stated. VITAL SIGNS: Blood pressure is 126/72, pulse 90, oxygen saturation 97% on FiO2 of 80%, temperature 98.4, respiratory rate is 24. BMI is 29. INTEGUMENT: Skin is warm and dry. No pallor, jaundice, or diaphoresis. The patient continues to have a deep tissue injury in the sacral area. HEENT: Anicteric sclerae. Moist mucous membranes. The patient has orogastric and endotracheal tube in place. NECK: Supple. CARDIOVASCULAR: Tachycardic rate and regular rhythm. LUNGS: The patient has bibasilar crackles and diminished breath sounds. ABDOMEN: Soft. Normal bowel sounds. EXTREMITIES: Edema in the bilateral lower extremities, more so on the right. NEUROLOGIC: He is sedated and paralyzed as previously stated. DIAGNOSES: 1. Acute respiratory failure secondary to acute respiratory distress syndrome. 2. Acute respiratory distress syndrome secondary to COVID-19 viral pneumonia. 3. Bilateral COVID-19 viral pneumonia. 4. Type 2 diabetes mellitus. 5. Hypernatremia secondary to free water deficit. 6. Acute right leg deep venous thrombosis. PLAN: 1. We will likely repeat COVID-19 serology testing. 2. Once the repeat COVID-19 is negative, will likely proceed with tracheostomy tube placement. 3. Continue high-dose enoxaparin twice a day for the patient's acute right lower leg deep venous thrombosis. 4. We will order free water through the orogastric tube every 6 hours to help correct the patient's free water deficit. 5. Continue aggressive respiratory care. 6. Continue aggressive oxygenation via ventilator. 7. Optimize the patient's nutritional status with tube feeds. 8. Blood glucose control. I spent 25 minutes in the care of this intensive care unit patient. MD OLVIN Blackburn/FREDY /[id number] MTDD
--- NOTE | 2020-02-29 12:12 | NUR ---
Nutrition Intervention Note RD Recommendation(s) for Physician: -Recommend modifying formula to Vital High Protein and when medically feasible to goal rate of 70 ml/hr (1680 kcal, 147 gram protein). - Water flushes per MD. - Consider TPN if unable to advance TF soon. - Consider initiation of bowel regimen, no documented BM x 9 days. Plan of Care: RD following, monitoring for tolerance and adequacy. TF recs. Nutrition reason for involvement: follow up RD Assessment 02/28: Follow up. Pt remains intubated, sedated with Propofol and fentanyl drip. Pt not currently on pressors. TF currently off per am documentation, previously infusing at 20 ml/hr on 02/27 and 02/26- not meeting needs. Pt with increased water flushes per MD 2/ hypernatremia. Chart reviewed. TF rec's relayed to RN. Will continue to monitor. 02/24: Follow up. Pt remains mechanically ventilated. Per RN, pt is tolerating tube feeding of Glucerna 1.2 @ 40 mL/hr. Recommend modifying formula to Vital High Protein. RD recommendation provided to nurse. Will continue to monitor. 02/20: 35 YOM admitted for hypoxemia, hyperglycemia with PMH listed below. Physical visit was deferred d/t hospitals infection disease policy. Pt is intubated on fentanyl and propofol. Pt is not on pressors as of now. The nurse reported the pt was ordered pressors over the weekend but has not needed it today. Nurse reported possible ARDS, they have not had to place the pt in the prone position yet. Pt was ordered Glucerna 1.2 at 20 ml/hr advance to goal rate of 60 ml/hr with 100 ml of water every 4 hours (1728 kcal, 86gram protein) . RD recommendations provided above and given to nurse. Unaware of propofol rate d/t not being able to enter the room and nurse not knowing at current time. Nurse reported the pt is currently on 20 ml/hr of Glucerna 1.2. Will continue to monitor. Principal Problems/Diagnoses: hypoxemia, hyperglycemia PMH: Uncontrolled type 2 diabetes mellitus. GI: No BM recorded since 02/19; flat, soft, nontender abdomen Skin: mid sacral ulceration with blister per wound care note Labs: 02/28: Na 151, K 4.7, BUN 31, Cr 0.87, Gluc 169, POC Gluc 243-267 02/24: Cl 113, Glu 269 02/20: Cl 114, CO2 21, Creat 1.34, Gluc 138, Ca 8 Meds: regular insulin, lantus IV/Drips: Propofol at 5.8 ml/hr (provides 153 lipid kcal/day) Ht: 71 in Wt: 215 lbs (02/23) 213 lb (02/20) BMI: 30.0 kg/m^2 IBW: 172 lbs Malnutrition Evaluation (02/20) -unable to perform nutrition assessment Nutrition Prescription (Diet Order):Glucerna 1.2 at 20 ml/hr with goal rate of 60 ml/hr- off currently Estimated Nutritional Needs: Calories: 5084-9660 kcal/day (20- 25 kcal/kg/day) Weight used : IBW (78 kg) Protein : 117-156 protein/day (1.5-2 gram/kg/day ) Weight used: IBW Diet Adequacy: Not meeting calorie needs, Not meeting protein needs Diet Education Needs Assessment: Diet education not indicated, patient on temporary/transition diet. Nutrition Care Level: moderate Nutrition Diagnosis: Inadequate energy intake related to medical condition as evidenced by the pt needing mechanical ventilation and need for TF to meet energy and protein needs. Goal: Patient will meet 75-100% of estimated needs by follow up Progress: not progressing Interventions: -TF (Composition, Rate, Route),Recommended Modifications, Collaboration with other providers Monitoring/Evaluation: -Total energy intake, Total protein intake, Formula/Solution Signed: Chasidy Bridges RD, LD, CNSC
[2020-02-29] MEDS: ENOXAPARIN INJ 80 MG/0.8 ML SYR SC SCH ×2 (12:33→21:32)
[2020-02-29] MEDS: BALSAM PERU/CASTOR OIL 60 GM OINT...G. TP SCH (12:33)
--- NOTE | 2020-02-29 16:16 | Progress Note ---
DATE: SUBJECTIVE: Mr. Love remains in intensive care unit. Intubated, on Lovenox. He remains on FiO2 of 80%. LABORATORY DATA: Reviewed. His chart reviewed. Could not review any new symptoms. PHYSICAL EXAMINATION: GENERAL: He is intubated, sedated, on vent. HEENT: Normocephalic. CHEST: Few crackles bilateral. COR: S1 and S2. No S3, S4, or murmur. ABDOMEN: Soft. Bowel sounds present. No tenderness. EXTREMITIES: No edema. IMPRESSION: 1. Respiratory failure, COVID-19, pneumonia, now going into acute respiratory distress syndrome, diabetes mellitus. 2. Deep venous thrombosis. 3. Hypernatremia. 4. Right lower extremity deep venous thrombosis. The plan is to continue supportive care. Continue anticoagulation. To recheck PCR on Friday. Anticipate he may end up with a trach. Discussed with the medical team. We will follow. MD HARVEY Alexis/FREDY /[id number]
--- NOTE | 2020-02-29 17:17 | Progress Note ---
DATE: SUBJECTIVE: The patient remains on PRVC. His FiO2 is set at 75% and his PEEP is set at 16. He is not having fevers. He has no new complaints. PHYSICAL EXAMINATION: VITAL SIGNS: The blood pressure is 126/70 and saturation is 100%. HEENT: Shows no facial swelling or erythema. He has an oral endotracheal tube in place. CARDIAC: Reveals regular rate and rhythm with normal S1 and S2. There are no murmurs or rubs. RESPIRATORY: Auscultation of lungs reveal rhonchorous breath sounds bilaterally. There is no wheezing. ABDOMEN: Soft and nontender. There is no rebound or guarding. EXTREMITIES: Show 2+ leg edema. There is decreased leg edema in the right leg with a DVT was. LABORATORY DATA: Hemoglobin is 8.8, the white blood cell count is 5.1, and the platelet count is 404. BUN to creatinine ratio is 31 to 0.87. The sodium is 151 and the chloride is 115. Carbon dioxide is 30. The albumin is 2.1. IMPRESSION: 1. Acute respiratory failure. 2. Acute respiratory distress syndrome. 3. Viral pneumonia secondary to COVID-19. 4. Type 2 diabetes. 5. Hypernatremia. 6. Acute deep vein thrombosis of the right leg. PLAN: 1. Repeat x-ray now. 2. Continue to wean oxygen as tolerated. 3. Continue Lovenox. 4. Increase free water. 5. Continue enteral feedings. 6. Skin care. 7. Monitor blood sugars and give insulin as needed. Case discussed with night shift manager nursing, day shift nursing, Respiratory, Internal Medicine, and administration. Greater than 35 minutes in direct critical care time. Severiano Crow MD [facility] /[id number]
--- NOTE | 2020-02-29 19:38 | Diagnostic Imaging Report ---
EXAMINATION: CHEST SINGLE (PORTABLE) INDICATION: ^Resp Failure ^[id number] ^1805 COMPARISON: Chest radiograph 02/28/2020 FINDINGS: AP view TUBES and LINES: Stable endotracheal tube, NG or ET tube, and left PICC. LUNGS: Lungs are well inflated. Bilateral multifocal consolidation, right greater than left, appear mildly improved. No new consolidations. PLEURA: No pleural effusion or pneumothorax. HEART AND MEDIASTINUM: The cardiomediastinal silhouette is unremarkable.. BONES AND SOFT TISSUES: No acute osseous lesion. Soft tissues are unremarkable. UPPER ABDOMEN: No free air under the diaphragm. IMPRESSION: Improved bilateral consolidations a combination of improved multifocal pneumonia and ARDS. Signed by: Dr. Alexandria Monique M.D. on 02/29/2020 7:34 PM
[2020-02-29] MEDS: INSULIN GLARGINE 100 UNITS/ML VIAL SQ SCH (21:33)
[2020-03-01] VITALS (27 sets, daily range): BP systolic 101–149; BP diastolic 58–88
[2020-03-01] MEDS: MIDAZOLAM HCL 50 MG in SODIUM CHLORIDE 0.9% 100 ML 90 ML IV PRN ×4 (00:30→20:20)
[2020-03-01] MEDS: PROPOFOL IV EMULSION 10MG/ML 100 ML IV SCH ×2 (02:37→14:07)
[2020-03-01] MEDS: ROCURONIUM BROMIDE 250 MG in SODIUM CHLORIDE 0.9% 250ML 225 ML IV SCH ×4 (03:35→20:00)
[2020-03-01 05:37] LABS: BASOPHILS % 0.3 % (0.0-1.0); EOSINOPHILS % 0.5 % (0.0-6.0); HEMATOCRIT 32.5 % (38.2-49.6); HEMOGLOBIN 9.7 g/dL (14.0-18.0); LYMPHOCYTES # (AUTO) 0.5 (1.0-3.2); LYMPHOCYTES % 7.6 % (18.0-39.1); MEAN CORPUSCULAR HEMOGLOBIN 25.1 pg (28-32); MEAN CORPUSCULAR HGB CONC 29.8 g/dL (31-35); MEAN CORPUSCULAR VOLUME 84.2 fL (81-99); MONOCYTES # (AUTO) 0.8 (0.2-0.8); MONOCYTES % 12.9 % (4.4-11.3); NEUTROPHILS # (AUTO) 4.7 (2.1-6.9); PLATELET COUNT 388 x10e3/uL (140-360); RED BLOOD COUNT 3.86 x10e6/uL (4.3-5.7); RED CELL DISTRIBUTION WIDTH 14.8 % (11.7-14.4)
[2020-03-01] MEDS: INSULIN REGULAR, HUMAN 100 UNIT/1 ML 3ML VIAL SQ SCH ×4 (05:37→21:25)
[2020-03-01 05:51] LABS: ALANINE AMINOTRANSFERASE 25 IU/L (0-55); ALBUMIN 2.1 g/dL (3.5-5.0); ALBUMIN/GLOBULIN RATIO 0.5 (0.8-2.0); ALKALINE PHOSPHATASE 84 IU/L (40-150); ANION GAP 10.7 mmol/L (8-16); BLOOD UREA NITROGEN 28 mg/dL (7-26); BUN/CREATININE RATIO 35 (6-25); CARBON DIOXIDE 31 mmol/L (22-29); CHLORIDE 114 mmol/L (98-107); EST GLOMERULAR FILTRATION RATE > 60 ML/MIN (60-); GLUCOSE 178 mg/dL (74-118); POTASSIUM 4.7 mmol/L (3.5-5.1); SODIUM 151 mmol/L (136-145)
[2020-03-01] MEDS: FENTANYL CITRATE INJ 2,000 MCG in SODIUM CHLORIDE 0.9% 250ML 210 ML IV PRN ×3 (06:43→21:32)
[2020-03-01] MEDS: BALSAM PERU/CASTOR OIL 60 GM OINT...G. TP SCH (08:23)
--- NOTE | 2020-03-01 10:24 | Progress Note ---
DATE: 03/01/2020 CHIEF COMPLAINT/HISTORY OF PRESENT ILLNESS: This is a 35-year-old man, whose primary treatment diagnosis is acute respiratory failure secondary to acute respiratory distress syndrome secondary to COVID-19 viral pneumonia. The patient is currently on ventilator. Chest film performed yesterday on February 29, 2020, revealed improved bilateral consolidations, otherwise unchanged. Blood work today revealed white blood cell count of 5900 with 78% segmented neutrophils. Hemoglobin today is 9.7 g/dL. The patient's BUN and creatinine today 28 and 0.8 respectively. Sodium 151. REVIEW OF SYSTEMS: As per HPI. PHYSICAL EXAMINATION: GENERAL: He is sedated and paralyzed on a ventilator, FiO2 75% with ox saturation 98%. VITAL SIGNS: Heart rate is 90, blood pressure is 138/80, respiratory rate is 22, BMI is 29, temperature 96.5. The patient has not had a fever in over 72 hours. INTEGUMENT: Skin is warm and dry. No pallor, jaundice, or diaphoresis. The patient has unchanged deep tissue injury in the sacral area. HEENT: Anicteric sclerae. Moist mucous membranes. The patient has orogastric and endotracheal tube in place. NECK: Supple. CARDIOVASCULAR: Tachycardic rate and rhythm. LUNGS: The patient has diminished breath sounds at bases. ABDOMEN: Soft with normal bowel sounds. EXTREMITIES: Trace edema in lower legs, more pronounced on the right. NEUROLOGIC: He is sedated and paralyzed as previous stated. DIAGNOSES: 1. Acute hypoxic respiratory failure requiring ventilator secondary to acute respiratory distress syndrome. 2. ARDS secondary to COVID-19 viral pneumonia. 3. Acute right lower extremity deep venous thrombosis. 4. Hypernatremia secondary to free water deficit. PLAN: 1. Continue high dose enoxaparin twice a day for patient's deep venous thrombosis. 2. We will repeat COVID-19 test today. 3. If COVID-19 test is negative, may likely proceed with tracheostomy tube placement. Continue free water via orogastric tube because the patient's free water deficit. 4. Follow electrolytes renal function. 5. Continue daily chest x-ray. 6. Continue aggressive respiratory care. 7. I spoke today 03/01 with patient's father, Mr. Donovan Love and he agrees with tracheostomy tube placement in the future if warranted. I spent 35 minutes in the care of this intensive care unit patient. MD OLVIN Blackburn/FREDY /[id number]
[2020-03-01] MEDS: ENOXAPARIN INJ 80 MG/0.8 ML SYR SC SCH ×2 (10:30→21:23)
--- NOTE | 2020-03-01 11:49 | Progress Note ---
DATE: SUBJECTIVE: Mr. Love remains intubated, remains on ventilator. Discussed with medical team. No fever. Remains on FiO2 of 75, PEEP of 15. OBJECTIVE: HEENT: Normocephalic. NECK: Supple. CHEST: Crackles. COR: S1 and S2. No murmur. ABDOMEN: Soft. Bowel sounds present. EXTREMITIES: No edema. IMPRESSION: 1. Adult respiratory distress syndrome due to COVID-19 pneumonia. 2. COVID-19 pneumonia. 3. Right lower extremity deep venous thrombosis. PLAN: We are going to recheck his PCR because I was thinking he may need a tracheostomy. The patient remains critical, but seems to be stable. Continue with supportive care. Discussed with all medical team. MD HARVEY Alexis/MODL /[id number]
--- NOTE | 2020-03-01 13:16 | Diagnostic Imaging Report ---
EXAMINATION: CHEST SINGLE (PORTABLE) INDICATION: Pneumonia COMPARISON: Multiple prior chest regressed most recently 02/29/2020 FINDINGS: LINES/TUBES:Endotracheal tube terminates 3 cm above the latasha. Left PICC line unchanged. EKG leads overlie the chest. Enteric tube unchanged LUNGS:Unchanged bilateral right greater than left airspace opacities. PLEURA:No pleural effusion or pneumothorax. MEDIASTINUM:The cardiomediastinal silhouette appears unchanged in size and shape. BONES/SOFT TISSUES:No acute osseous injury. ABDOMEN:No free air under the diaphragm. IMPRESSION: Unchanged bilateral right greater than left airspace opacities. Signed by: Humberto Lopez MD on 03/01/2020 1:13 PM
--- NOTE | 2020-03-01 16:03 | Progress Note ---
DATE: SUBJECTIVE: The patient is decreased to 60% oxygen with 60 PEEP. Tidal volume is set at 360. Respiratory rate is 22. The patient has been afebrile. He remains on Lovenox. PHYSICAL EXAMINATION: VITAL SIGNS: The patient is afebrile. The blood pressure is 139/80, saturation is 97%. HEENT: Shows no facial swelling or erythema. LYMPHATIC: Shows no submandibular, cervical or supraclavicular adenopathy. CARDIAC: Reveals a regular rate and rhythm with normal S1, S2. LUNGS: Auscultation of lungs reveals decreased breath sounds at the bases. There is no wheezing. ABDOMEN: Soft, nontender. There is no rebound or guarding. EXTREMITIES: Show no leg edema or calf tenderness. There is no cyanosis or clubbing. SKIN: Shows no rashes. NEUROLOGICAL: Shows the patient to be sedated. LABORATORY DATA: BUN to creatinine ratio is 28 to 0.8, sodium is 151 and carbon dioxide is 31. The white blood cell count is 5.9 and hemoglobin is 9.7. The platelet count is 388. IMPRESSION: 1. Acute respiratory failure. 2. Acute respiratory distress syndrome. 3. COVID-19 viral pneumonia. 4. Venous thrombosis of the right leg. 5. Hypernatremia. PLAN: 1. Continue current ventilator settings. 2. Stop paralytics later today. 3. Repeat serology testing for COVID-19. 4. Continue enteral feedings. 5. Continue free water for hypernatremia. 6. Continue to monitor and control blood sugars. 7. Case discussed with real estate professor nursing, dayshift nursing, Respiratory, General Surgery, and Infectious Disease. Severiano Crow MD [facility]/MODL /[id number]
[2020-03-01] MEDS: INSULIN GLARGINE 100 UNITS/ML VIAL SQ SCH (21:25)
[2020-03-02] VITALS (28 sets, daily range): BP systolic 84–128; BP diastolic 49–71
--- NOTE | 2020-03-02 00:30 | NUR ---
Rocuronium off, per orders
[2020-03-02] MEDS: MIDAZOLAM HCL 50 MG in SODIUM CHLORIDE 0.9% 100 ML 90 ML IV PRN ×2 (01:19→23:55)
[2020-03-02] MEDS: PROPOFOL IV EMULSION 10MG/ML 100 ML IV SCH ×2 (01:19→20:48)
[2020-03-02] MEDS: FENTANYL CITRATE INJ 2,000 MCG in SODIUM CHLORIDE 0.9% 250ML 210 ML IV PRN (03:45)
[2020-03-02 05:20] LABS: BASOPHILS % 0.1 % (0.0-1.0); EOSINOPHILS # (AUTO) 0.2 (0.0-0.4); EOSINOPHILS % 3.5 % (0.0-6.0); HEMATOCRIT 32.9 % (38.2-49.6); HEMOGLOBIN 9.8 g/dL (14.0-18.0); LYMPHOCYTES # (AUTO) 0.5 (1.0-3.2); LYMPHOCYTES % 6.5 % (18.0-39.1); MEAN CORPUSCULAR HEMOGLOBIN 25.3 pg (28-32); MEAN CORPUSCULAR HGB CONC 29.8 g/dL (31-35); MONOCYTES # (AUTO) 0.8 (0.2-0.8); MONOCYTES % 11.8 % (4.4-11.3); NEUTROPHILS # (AUTO) 5.4 (2.1-6.9); NEUTROPHILS % 77.4 % (38.7-80.0); PLATELET COUNT 345 x10e3/uL (140-360); RED BLOOD COUNT 3.87 x10e6/uL (4.3-5.7); RED CELL DISTRIBUTION WIDTH 14.8 % (11.7-14.4)
[2020-03-02] MEDS: INSULIN REGULAR, HUMAN 100 UNIT/1 ML 3ML VIAL SQ SCH ×3 (05:23→18:19)
[2020-03-02 05:44] LABS: ALANINE AMINOTRANSFERASE 24 IU/L (0-55); ALBUMIN 1.9 g/dL (3.5-5.0); ALBUMIN/GLOBULIN RATIO 0.4 (0.8-2.0); ALKALINE PHOSPHATASE 74 IU/L (40-150); ANION GAP 10.4 mmol/L (8-16); BLOOD UREA NITROGEN 24 mg/dL (7-26); BUN/CREATININE RATIO 30 (6-25); CALCIUM 8.8 mg/dL (8.4-10.2); CARBON DIOXIDE 28 mmol/L (22-29); CHLORIDE 115 mmol/L (98-107); CREATININE, SERUM 0.81 mg/dL (0.72-1.25); EST GLOMERULAR FILTRATION RATE > 60 ML/MIN (60-); GLUCOSE 147 mg/dL (74-118); POTASSIUM 4.4 mmol/L (3.5-5.1); SODIUM 149 mmol/L (136-145)
[2020-03-02] MEDS: BALSAM PERU/CASTOR OIL 60 GM OINT...G. TP SCH (09:00)
[2020-03-02] MEDS: ENOXAPARIN INJ 80 MG/0.8 ML SYR SC SCH ×2 (09:15→20:48)
--- NOTE | 2020-03-02 10:03 | Diagnostic Imaging Report ---
EXAM: CHEST SINGLE (PORTABLE) DATE: 03/02/2020 5:00 AM INDICATION: Pneumonia COMPARISON: Multiple prior chest radiograph, last FINDINGS: Endotracheal tube terminates 4.5 cm above the latasha. Left-sided PICC line identified in stable position identified in stable position. Enteric tube noted coursing below the diaphragm. Again identified are bilateral right greater than left-sided airspace opacities, unchanged from the prior examination. There is no evidence for pneumothorax or significant pleural effusion. The cardiomediastinal silhouette is stable in appearance. No acute osseous abnormality is identified. IMPRESSION: No significant interval change from 03/01/2020. Grossly stable appearing right greater than left sided airspace opacities. Signed by: Dr. Colton Sandra MD on 03/02/2020 9:59 AM
--- NOTE | 2020-03-02 10:55 | Progress Note ---
DATE: 03/02/2020 CHIEF COMPLAINT/HISTORY OF PRESENT ILLNESS: This is a 35-year-old man, whose main diagnosis is bilateral COVID-19 viral pneumonia. He is in acute hypoxic respiratory failure secondary to acute respiratory distress syndrome and is currently on a ventilator. The patient's white blood cell count today 6900 with 77% segmented neutrophils. The patient's hemoglobin is 9.8 g/dL. The patient's BUN and creatinine are 24 and 0.81 respectively. The patient's potassium is 4.4. Albumin is 1.9 g/dL. The patient had a chest film done yesterday on March 01, 2020, which revealed grossly stable appearing right greater than left-sided airspace opacities. Yesterday, the patient underwent repeat COVID-19 testing via endotracheal tube aspiration. REVIEW OF SYSTEMS: As per HPI. PHYSICAL EXAMINATION: GENERAL: He is sedated on the ventilator. He is currently off paralytics. VITAL SIGNS: According to nursing, staff FiO2 is 50% with oxygen saturation of 94%. He has a PEEP of 16. Tidal volume is 350 mL and he is currently on AC mode. Heart rate 108, respiratory rate is 26, blood pressure is 120/88, and temperature is 99.4. The patient has been afebrile for well over 72 hours. His BMI is 29. INTEGUMENT: Skin is warm and dry. No pallor, jaundice, or diaphoresis. The patient has an unstageable deep tissue injury measuring 6 x 6 cm in the sacral area. It is being addressed by wound care daily with topical Venelex. HEENT: The patient has both orogastric and endotracheal tube in place. The patient does open his eyes spontaneously. NECK: Supple. CARDIOVASCULAR: Tachycardic rate with regular rhythm. LUNGS: Diminished breath sounds with crackles bilaterally. ABDOMEN: Soft. He does have bowel sounds. EXTREMITIES: Trace edema in lower extremities, more pronounced on the right. NEUROLOGIC: He is sedated. No focal deficits are appreciated per nursing staff. DIAGNOSES: 1. Acute hypoxic respiratory failure secondary to acute respiratory distress syndrome. 2. Acute respiratory distress syndrome secondary to bilateral COVID-19 viral pneumonia. 3. Bilateral COVID-19 viral pneumonia. 4. Type 2 diabetes mellitus. 5. Acute right lower extremity deep venous thrombosis. 6. Unstageable sacral deep tissue injury. 7. Hypernatremia secondary to free water deficit, resolving. PLAN: 1. Continue high-dose enoxaparin twice a day for his acute right lower extremity deep venous thrombosis. 2. We will gradually wean the patient's FiO2 via ventilator. 3. Continue respiratory care. 4. Continue supportive care. 5. Continue wound care to the patient's sacral deep tissue injury. 6. Nutritional support. 7. Blood glucose control. 8. Await the repeat COVID-19 test. I spent 35 minutes in the care of this intensive care unit patient. MD OLVIN Blackburn/FREDY /[id number] MTDD
[2020-03-02 11:28] LABS: ABG PCO2 59 mmHg (35-45); ABG PH 7.33 (7.35-7.45)
[2020-03-02 11:30] LABS: ABG BASE EXCESS 2.8 mmol/L (-2 - 3); ABG HCO3 30 mmol/L (21-29); ABG OXYGEN SATURATION 91.7 % (96-97)
--- NOTE | 2020-03-02 12:55 | Progress Note ---
DATE: SUBJECTIVE: Mr. Love remains in intensive care unit. He has some improvement today with his oxygenation. He remains on high PEEP of 16. Otherwise, remains stable. PHYSICAL EXAMINATION: GENERAL: Intubated, sedated, off paralytics. HEENT: Normocephalic. CHEST: Few crackles. HEART: S1, S2. No S3, S4 or murmur. ABDOMEN: Soft. Bowel sounds present. EXTREMITIES: No edema. LABORATORY DATA: Reviewed. Chart reviewed. IMPRESSION: 1. Acute COVD-19 with acute respiratory distress syndrome. We will check PCR, anticipate he may need a trach. 2. Respiratory failure. 3. Deep vein thrombosis. 4. Stable, off antibiotic. 5. Still high demand on the ventilator. 6. We will follow. MD HARVEY Alexis/MODL /[id number]
[2020-03-02] MEDS ORDERED: FUROSEMIDE INJ 10 MG/ML 2 ML VIAL IV SCH (14:15)
[2020-03-02] MEDS ORDERED: ALBUMIN 25% 12.5GM 0.25 GM/ML BTL IV SCH (14:15)
--- NOTE | 2020-03-02 14:51 | Progress Note ---
DATE: SUBJECTIVE: The patient has some decreased urine output today. He also has a low-grade temperature to 100.3. He remains on a pressure regulated volume control at a rate of 22 with a PEEP of 16, FiO2 of 60%. His saturation is 93%. He continues to tolerate enteral feedings. PHYSICAL EXAMINATION: VITAL SIGNS: The patient is afebrile. The blood pressure is 109/60 with a saturation of 92%. The pulse is 112. The PRVC is set at a rate of 22 with a tidal volume of 380, and PEEP of 16. The FiO2 is set at 60%. His plateau pressure is 29, and his peak airway pressure is 31 to 32. Endotracheal tube is taped at 28 at the lip. CARDIAC: Reveals regular rate and rhythm with normal S1 and S2. LUNGS: Auscultation of lungs shows decreased breath sounds. ABDOMEN: Soft, nontender. There is no rebound or guarding. EXTREMITIES: Shows decreasing swelling in the right leg. NEUROLOGIC: Shows the patient to be sedated. LABORATORY DATA: White blood cell count is 6.9 and hemoglobin is 9.8. The platelet count is 345. The BUN to creatinine ratio is 24 to 0.81. The sodium is 149. Albumin is 1.9. RADIOGRAPHIC DATA: Chest x-ray shows endotracheal tube 4 cm above the latasha. There is a left-sided PICC in place. Bilateral infiltrates, right greater than left, that is unchanged. IMPRESSION: 1. Acute respiratory failure. 2. Acute respiratory distress syndrome. 3. Acute kidney injury. 4. Diabetes mellitus. 5. Hyponatremia. PLAN: 1. Albumin and Lasix today to improve urine output. 2. Continue patient off paralytics, on Versed and fentanyl. 3. Decrease FiO2 as tolerated. 4. Continue skin care. 5. Continue enteral feedings. 6. Change PICC line to a new site. 7. Repeat COVID-19 test is pending. 8. Case discussed with nightshift Nursing, dayshift Nursing, Respiratory and Infectious Disease. MD MUNA Ramos/FREDY /[id number]
[2020-03-02] MEDS ORDERED: VANCOMYCIN 1GM/NS 250 ML 250 ML IV ONE (16:00)
[2020-03-02] MEDS ORDERED: SODIUM CHLORIDE 0.9% 250ML 250 ML ONE (16:14)
[2020-03-02] MEDS: MEROPENEM 1GM 100 ML IV SCH (18:18)
--- NOTE | 2020-03-02 20:46 | Diagnostic Imaging Report ---
EXAMINATION: CHEST XRAY LINE PLACEMENT INDICATION: ^picc line placement ^Y COMPARISON: Chest radiograph on 08/13/2020 FINDINGS: AP view TUBES and LINES: Stable endotracheal tube overlying the trachea. Infradiaphragmatic NG/OG tube, unchanged. Interval placement of a right PICC with tip overlying the cavoatrial junction. Left PICC remains unchanged. LUNGS: Lungs are well inflated. Mildly worsening bilateral alveolar and interstitial airspace opacities. PLEURA: No pleural effusion or pneumothorax. HEART AND MEDIASTINUM: The cardiomediastinal silhouette is unremarkable.. BONES AND SOFT TISSUES: No acute osseous lesion. Soft tissues are unremarkable. UPPER ABDOMEN: No free air under the diaphragm. IMPRESSION: Interval placement of a right PICC with tip overlying the cavoatrial junction. No pneumothorax. Mildly worsening bilateral consolidations consistent with multifocal pneumonia. Signed by: Dr. Alexandria Monique M.D. on 03/02/2020 8:42 PM
[2020-03-02] MEDS: INSULIN GLARGINE 100 UNITS/ML VIAL SQ SCH (20:51)
--- NOTE | 2020-03-02 21:44 | NUR ---
PICC TEAM HERE TO REPLACE LUCI PICC PER DR. Terra CABRAL. PT SEDATED BUT AWAKENED TO PAIN DURING PICC INSERTION. ATTEMPTED REORIENTATION & SEDATION INCREASED UNTIL PT TOLERATING PICC AND VENTILATOR. PT TOLERATED PLACEMENT. CXR REVIEWED WITH DARRON BRAVO (PICC TEAM) AND OK TO USE NEW ALEJANDRO PICC. WILL REMOVE LUCI PICC. VERIFICATION CXR ALSO INDICATED MILDLY WORSENING BILATERAL CONSOLIDATIONS CONSISTENT WITH MULTIFOCAL PNEUMONIA. WILL PAGE DR. CABRAL AND NOTIFY HIM OF RECENT CXR.
[2020-03-03] VITALS (26 sets, daily range): BP systolic 91–134; BP diastolic 49–77
[2020-03-03] MEDS: INSULIN REGULAR, HUMAN 100 UNIT/1 ML 3ML VIAL SQ SCH ×4 (00:07→18:05)
[2020-03-03] MEDS: FENTANYL CITRATE INJ 2,000 MCG in SODIUM CHLORIDE 0.9% 250ML 210 ML IV PRN ×2 (01:45→08:09)
[2020-03-03] MEDS: PROPOFOL IV EMULSION 10MG/ML 100 ML IV SCH ×3 (01:45→21:30)
[2020-03-03] MEDS: MEROPENEM 1GM 100 ML IV SCH ×3 (02:35→18:04)
[2020-03-03] MEDS ORDERED: SODIUM CHLORIDE 0.9% 1000ML 1,000 ML ONE (06:01)
[2020-03-03 06:27] LABS: BASOPHILS % 0.1 % (0.0-1.0); EOSINOPHILS % 0.3 % (0.0-6.0); HEMATOCRIT 27.4 % (38.2-49.6); HEMOGLOBIN 8.2 g/dL (14.0-18.0); LYMPHOCYTES # (AUTO) 0.7 (1.0-3.2); MEAN CORPUSCULAR HEMOGLOBIN 25.6 pg (28-32); MEAN CORPUSCULAR HGB CONC 29.9 g/dL (31-35); MEAN CORPUSCULAR VOLUME 85.6 fL (81-99); MONOCYTES # (AUTO) 0.9 (0.2-0.8); MONOCYTES % 12.5 % (4.4-11.3); NEUTROPHILS # (AUTO) 5.5 (2.1-6.9); NEUTROPHILS % 77.1 % (38.7-80.0); PLATELET COUNT 324 x10e3/uL (140-360); RED CELL DISTRIBUTION WIDTH 15.2 % (11.7-14.4)
[2020-03-03 06:42] LABS: ALANINE AMINOTRANSFERASE 20 IU/L (0-55); ALBUMIN 2.4 g/dL (3.5-5.0); ALBUMIN/GLOBULIN RATIO 0.6 (0.8-2.0); ALKALINE PHOSPHATASE 76 IU/L (40-150); ANION GAP 11.5 mmol/L (8-16); BLOOD UREA NITROGEN 31 mg/dL (7-26); BUN/CREATININE RATIO 28 (6-25); CALCIUM 8.8 mg/dL (8.4-10.2); CARBON DIOXIDE 29 mmol/L (22-29); CHLORIDE 113 mmol/L (98-107); CREATININE, SERUM 1.11 mg/dL (0.72-1.25); EST GLOMERULAR FILTRATION RATE > 60 ML/MIN (60-); GLUCOSE 156 mg/dL (74-118); POTASSIUM 4.5 mmol/L (3.5-5.1); SODIUM 149 mmol/L (136-145)
--- NOTE | 2020-03-03 06:55 | NUR ---
LUCI PICC REMOVED, PRESSURE HELD, NO S/S OF COMPLICATION NOTED. SITE CLEANSED AND COVERED WITH GAUZE & TEGADERM.
[2020-03-03] MEDS: ENOXAPARIN INJ 80 MG/0.8 ML SYR SC SCH ×2 (08:09→21:30)
[2020-03-03] MEDS: BALSAM PERU/CASTOR OIL 60 GM OINT...G. TP SCH (08:09)
[2020-03-03] MEDS: MIDAZOLAM HCL 50 MG in SODIUM CHLORIDE 0.9% 100 ML 90 ML IV PRN (08:09)
--- NOTE | 2020-03-03 14:00 | Progress Note ---
DATE: 03/03/2020 CHIEF COMPLAINT/HISTORY OF PRESENT ILLNESS: A 35-year-old man, whose primary treating diagnosis is acute hypoxic respiratory failure secondary to acute respiratory distress syndrome. The patient has acute respiratory distress syndrome secondary to bilateral COVID-19 pneumonia. The patient underwent blood work today and was found to have white blood cell count of 7100 with 77 segmented neutrophils. The patient's hemoglobin today is 8.2 g/dL, yesterday was 9.8 g/dL. He is receiving enoxaparin 80 mg subcutaneous twice a day for his acute right lower extremity deep venous thrombosis. Today's BUN and creatinine are 31 and 1.11 respectively, potassium 4.5, sodium 149. The patient is receiving free water via the orogastric tube because of his hypernatremia. The patient underwent central line placement yesterday with a post procedure chest x-ray. The chest x-ray revealed mild worsening bilateral consolidation consistent with multifocal pneumonia. Yesterday, the patient had low-grade fever all day, but his last elevated temperature was at 1 o'clock this morning was 99.5. The patient, however, is receiving acetaminophen orogastric tube for any temperature 99.5 degrees Fahrenheit or higher. Also he was relatively hypotensive all night with systolic blood pressure around 90 mmHg. REVIEW OF SYSTEMS: As per HPI. PHYSICAL EXAMINATION: GENERAL: The patient is currently sedated, but not paralyzed. VITAL SIGNS: He is currently on the ventilator, oxygen saturation is 93% on FiO2 of 70%, heart rate 100, respiratory rate 26, blood pressure 116/74, temperature is 98.6. His BMI is 29. INTEGUMENT: Skin is warm and dry. No pallor, jaundice, or diaphoresis. The patient has a sacral deep tissue wound. HEENT: Anicteric sclerae. Moist mucous membranes. The patient has orogastric and endotracheal tube in place. NECK: Supple. CARDIOVASCULAR: Tachycardic rate and regular rhythm. LUNGS: The patient has rhonchi and crackles in the bibasilar area. ABDOMEN: Soft. EXTREMITIES: No edema. NEUROLOGIC: He is currently sedated on the ventilator. DIAGNOSES: 1. Acute hypoxic respiratory failure secondary to acute respiratory distress syndrome. 2. Acute respiratory distress syndrome secondary to bilateral COVID-19 viral pneumonia. 3. Bilateral COVID-19 viral pneumonia. 4. Type 2 diabetes mellitus. 5. Acute right lower extremity deep venous thrombosis. 6. Unstageable sacral deep tissue injury. 7. Hypernatremia secondary to free water deficit, resolving. 8. Acute renal insufficiency, likely secondary to acute tubular necrosis. PLAN: 1. We will start intravenous saline for the patient's acute renal insufficiency and relative hypotension earlier. 2. Continue antipyretic in the form acetaminophen for the patient's low-grade fever. 3. Continue high-dose enoxaparin twice a day for the patient's acute right lower extremity deep venous thrombosis. 4. Watch hemoglobin and hematocrit. 5. Hemoccult stool. 6. Blood glucose control. 7. Nutritional support. 8. Continue wound care to the patient's sacral deep tissue injury. 9. Await repeat COVID-19 test. 10. We will gradually wean the patient's FiO2 via ventilator. 11. If the patient's repeat COVID-19 is negative, we may proceed with elective tracheostomy tube placement. I spent 30 minutes in the care of this intensive care unit patient. MD OLVIN Blackburn/RFEDY /[id number] MTDD
[2020-03-03] MEDS: PANTOPRAZOLE 40 MG 10ML VIAL IV SCH (15:43)
[2020-03-03] MEDS: SODIUM CHLORIDE 0.9% 1000ML 1,000 ML IV SCH (15:43)
--- NOTE | 2020-03-03 16:37 | NUR ---
dictated [id number]
--- NOTE | 2020-03-03 17:00 | NUR ---
Nutrition Intervention Note RD Recommendation(s) for Physician: -Recommend modifying formula to Vital High Protein and when medically feasible to goal rate of 50 ml/hr while on propofol (with current rate of propofol, would provide 1905 kcal, 105 gram protein). - Water flushes per MD. - Consider initiation of bowel regimen, no documented BM x 9 days. Plan of Care: RD following, monitoring for tolerance and adequacy. TF recs. Nutrition reason for involvement: follow up RD Assessment 03/03: Follow up. Pt remains mechanically ventilated. Pt is receiving Glucerna 1.2 @ 40 ml/hr per chart. Pt is receiving 26.7 mL/hr of propofol which provides 705 kcal. Recommend modifying formula to Vital High Protein. Will continue to monitor. 02/28: Follow up. Pt remains intubated, sedated with Propofol and fentanyl drip. Pt not currently on pressors. TF currently off per am documentation, previously infusing at 20 ml/hr on 02/27 and 02/26- not meeting needs. Pt with increased water flushes per MD 2/2 hypernatremia. Chart reviewed. TF rec's relayed to RN. Will continue to monitor. 02/24: Follow up. Pt remains mechanically ventilated. Per RN, pt is tolerating tube feeding of Glucerna 1.2 @ 40 mL/hr. Recommend modifying formula to Vital High Protein. RD recommendation provided to nurse. Will continue to monitor. 02/20: 35 YOM admitted for hypoxemia, hyperglycemia with PMH listed below. Physical visit was deferred d/t hospitals infection disease policy. Pt is intubated on fentanyl and propofol. Pt is not on pressors as of now. The nurse reported the pt was ordered pressors over the weekend but has not needed it today. Nurse reported possible ARDS, they have not had to place the pt in the prone position yet. Pt was ordered Glucerna 1.2 at 20 ml/hr advance to goal rate of 60 ml/hr with 100 ml of water every 4 hours (1728 kcal, 86gram protein) . RD recommendations provided above and given to nurse. Unaware of propofol rate d/t not being able to enter the room and nurse not knowing at current time. Nurse reported the pt is currently on 20 ml/hr of Glucerna 1.2. Will continue to monitor. Principal Problems/Diagnoses: hypoxemia, hyperglycemia PMH: Uncontrolled type 2 diabetes mellitus. GI: No BM recorded since 02/19; flat, soft, nontender abdomen Skin: mid sacral ulceration with blister per wound care note Labs: 03/03: Na 149, BUN 31, Glu 156 02/28: Na 151, K 4.7, BUN 31, Cr 0.87, Gluc 169, POC Gluc 243-267 02/24: Cl 113, Glu 269 02/20: Cl 114, CO2 21, Creat 1.34, Gluc 138, Ca 8 Meds: insulin, antibiotic, fentanyl, propofol, protonix Ht: 71 in Wt: 212 lbs (02/27) 215 lbs (02/23) 213 lb (02/20) BMI: 29.6 kg/m^2 IBW: 172 lbs Malnutrition Evaluation (02/20) -unable to perform nutrition assessment Nutrition Prescription (Diet Order):Glucerna 1.2 at 20 ml/hr with goal rate of 60 ml/hr Estimated Nutritional Needs: Calories: 9721-5172 kcal/day (20- 25 kcal/kg/day) Weight used : IBW (78 kg) Protein : 117-156 protein/day (1.5-2 gram/kg/day ) Weight used: IBW Diet Adequacy: Not meeting calorie needs, Not meeting protein needs Diet Education Needs Assessment: Diet education not indicated, patient on temporary/transition diet. Nutrition Care Level: moderate Nutrition Diagnosis: Inadequate energy intake related to medical condition as evidenced by the pt needing mechanical ventilation and need for TF to meet energy and protein needs. Goal: Patient will meet 75-100% of estimated needs by follow up Progress: not progressing Interventions: -TF (Composition, Rate, Route),Recommended Modifications, Collaboration with other providers Monitoring/Evaluation: -Total energy intake, Total protein intake, Formula/Solution Signed: Hazel Alonzo RD, LD
--- NOTE | 2020-03-03 18:45 | Progress Note ---
DATE: SUBJECTIVE: Remains in intensive care unit on a ventilator. The patient has no new problems today. This is a 35-year-old male, who comes here for COVID-19 pneumonia complicated with DVT right lower extremity, on the ventilator with ARDS, remains on the ventilator. OBJECTIVE: VITAL SIGNS: O2 saturation 93 on FiO2 of 70, heart rate of 100, respiration 26. His PEEP is 15. HEENT: Not icteric. NECK: Supple. CHEST: A few crackles. COR: S1, S2. ABDOMEN: Soft. LABORATORY DATA: White count 7.19, hemoglobin of 8.2. MEDICATIONS: The patient is currently on Protonix, insulin. He is on meropenem for aspiration pneumonia. He is also on enoxaparin 80 mg q.12 hours. PLAN: The plan is to finish 7 days of meropenem. Continue supportive care as ordered. MD HARVEY Alexis/MODL /[id number]
[2020-03-03] MEDS: INSULIN GLARGINE 100 UNITS/ML VIAL SQ SCH (21:30)
[2020-03-04] VITALS (26 sets, daily range): BP systolic 89–129; BP diastolic 50–76
[2020-03-04] MEDS: SODIUM CHLORIDE 0.9% 1000ML 1,000 ML IV SCH (00:43)
[2020-03-04] MEDS: PROPOFOL IV EMULSION 10MG/ML 100 ML IV SCH ×5 (00:44→16:37)
[2020-03-04] MEDS: FENTANYL CITRATE INJ 2,000 MCG in SODIUM CHLORIDE 0.9% 250ML 210 ML IV PRN ×4 (00:44→23:35)
[2020-03-04] MEDS: INSULIN REGULAR, HUMAN 100 UNIT/1 ML 3ML VIAL SQ SCH ×5 (00:47→23:40)
[2020-03-04] MEDS: MEROPENEM 1GM 100 ML IV SCH ×3 (02:22→17:57)
[2020-03-04 05:47] LABS: BASOPHILS % 0.1 % (0.0-1.0); EOSINOPHILS # (AUTO) 0.1 (0.0-0.4); EOSINOPHILS % 0.6 % (0.0-6.0); HEMATOCRIT 24.5 % (38.2-49.6); HEMOGLOBIN 7.2 g/dL (14.0-18.0); LYMPHOCYTES # (AUTO) 0.6 (1.0-3.2); LYMPHOCYTES % 8.1 % (18.0-39.1); MEAN CORPUSCULAR HEMOGLOBIN 25.5 pg (28-32); MEAN CORPUSCULAR HGB CONC 29.4 g/dL (31-35); MEAN CORPUSCULAR VOLUME 86.9 fL (81-99); MONOCYTES % 13.3 % (4.4-11.3); PLATELET COUNT 256 x10e3/uL (140-360); RED BLOOD COUNT 2.82 x10e6/uL (4.3-5.7); RED CELL DISTRIBUTION WIDTH 15.1 % (11.7-14.4)
[2020-03-04 06:04] LABS: ANION GAP 6.5 mmol/L (8-16); BLOOD UREA NITROGEN 34 mg/dL (7-26); BUN/CREATININE RATIO 30 (6-25); CALCIUM 7.8 mg/dL (8.4-10.2); CARBON DIOXIDE 27 mmol/L (22-29); CHLORIDE 118 mmol/L (98-107); CREATININE, SERUM 1.14 mg/dL (0.72-1.25); EST GLOMERULAR FILTRATION RATE > 60 ML/MIN (60-); GLUCOSE 199 mg/dL (74-118); POTASSIUM 4.5 mmol/L (3.5-5.1); SODIUM 147 mmol/L (136-145)
[2020-03-04] MEDS: MIDAZOLAM HCL 50 MG in SODIUM CHLORIDE 0.9% 100 ML 90 ML IV PRN ×3 (06:30→19:45)
--- NOTE | 2020-03-04 06:46 | NUR ---
PAGED AND UPDATED DR. Terra CABRAL WITH MORNING LABS, SEDATION AND BLOOD PRESSURE REGULATION, TUBE FEEDINGS AND OCCULT BLOOD STOOL RESULTS. NEW ORDERS RECEIVED. DAY SHIFT RN AWARE. ORDERS PLACED.
[2020-03-04] MEDS ORDERED: FUROSEMIDE INJ 10 MG/ML 4 ML VIAL IV ONE (07:00)
[2020-03-04] MEDS ORDERED: FUROSEMIDE INJ 10 MG/ML 4 ML VIAL ONE (07:23)
[2020-03-04] MEDS ORDERED: ALBUMIN 25% 12.5GM 50ML 50 ML IV ONE (07:24)
[2020-03-04] MEDS ORDERED: ALBUMIN 25% 25GM 100ML 0.25 GM/ML BTL IV ONE (08:00)
[2020-03-04] MEDS: ENOXAPARIN INJ 80 MG/0.8 ML SYR SC SCH ×2 (08:18→20:28)
[2020-03-04] MEDS: BALSAM PERU/CASTOR OIL 60 GM OINT...G. TP SCH (08:18)
[2020-03-04] MEDS: PANTOPRAZOLE 40 MG 10ML VIAL IV SCH ×2 (08:18→17:57)
[2020-03-04] MEDS ORDERED: SODIUM CHLORIDE 0.9% 250ML 250 ML IV ONE (09:00)
--- NOTE | 2020-03-04 10:11 | Diagnostic Imaging Report ---
EXAMINATION: CHEST SINGLE (PORTABLE) INDICATION: ^resp failure ^[id number] ^[id number] COMPARISON: 03/02/2020 and 03/01/2020 FINDINGS: AP view TUBES and LINES: Stable endotracheal and NG/OG tubes and right PICC. LUNGS: Lungs are well inflated. Unchanged diffuse bilateral lung consolidations. PLEURA: No pleural effusion or pneumothorax. HEART AND MEDIASTINUM: The cardiomediastinal silhouette is unremarkable.. BONES AND SOFT TISSUES: No acute osseous lesion. Soft tissues are unremarkable. UPPER ABDOMEN: No free air under the diaphragm. IMPRESSION: Persistent diffuse bilateral alveolar consolidations, a combination of viral pneumonia and ARDS. Signed by: Dr. Alexandria Monique M.D. on 03/04/2020 10:08 AM
--- NOTE | 2020-03-04 14:05 | Progress Note ---
DATE: SUBJECTIVE: The patient remains on mechanical ventilation. He is now on 80% with a PEEP 14. HEENT examination shows no facial swelling or erythema. The oropharynx is normal. There is an oral endotracheal tube in place. PHYSICAL EXAMINATION: VITAL SIGNS: The blood pressure is 109/65 and the pulse is 96. The saturation is 93%. He is on 80% FiO2 with 14 PEEP. HEENT: Shows no facial swelling or erythema. The patient has an oral endotracheal tube in place. CARDIAC: Reveals regular rate and rhythm with normal S1 and S2. LUNGS: Auscultation of lungs reveals decreased breath sounds at the bases. There is no wheezing. ABDOMEN: Soft, nontender. There is no rebound or guarding. EXTREMITIES: Shows no leg edema or calf tenderness. There is no cyanosis or clubbing. SKIN: Shows no rashes. NEUROLOGICAL: Shows no focal abnormalities. LABORATORY DATA: Sodium is 147, BUN to creatinine ratio is 34 to 1.14. The blood sugars 190 to 221. White blood cell count is 7.8 and hemoglobin is 7.2. Platelet count is 256. IMPRESSION: 1. Acute respiratory failure. 2. Acute respiratory distress syndrome. 3. Acute kidney injury. 4. Diabetes. 5. Hypernatremia. 6. Possible aspiration pneumonia. 7. Deep vein thrombosis. 8. Deep tissue injury of the sacrum. PLAN: 1. The patient has received albumin and Lasix today. We will repeat creatinine again tomorrow. 2. The patient will be placed back in the prone position. 3. Complete meropenum. 4. Continue enteral feedings. 5. Continue to monitor blood sugars and give insulin as needed. 6. Continue free water. 7. Case discussed with nightshift nursing, dayshift nursing, Respiratory, and Infectious Disease. MD MUNA Ramos/MODL /[id number]
--- NOTE | 2020-03-04 14:10 | Progress Note ---
DATE: SUBJECTIVE: Mr. Love remains in the intensive care unit, intubated. His cultures, there is no new information. His white count 7.8, hemoglobin 7.2, sodium 147, potassium of 4.5 with a creatinine 1.14. REVIEW OF SYSTEMS: Intubated, sedated. OBJECTIVE: Vital signs: Temperature 98.5, heart rate of 91, respiration 26, blood pressure of 99/61. HEENT: Normocephalic. CHEST: Few crackles, COR: S1-S2. ABDOMEN: Soft. IMPRESSION: 1. COVID-19 present on admission. 2. Respiratory failure with acute respiratory distress syndrome. 3. Deep venous thrombosis, right lower extremity. 4. Acute on chronic kidney disease. Currently on meropenem, but continue to observe his kidney function. He is on also Lovenox anticoagulation. Prognosis remains very guarded. Continue with supportive care. MD HARVEY Alexis/MODTerra /[id number]
[2020-03-04] MEDS: COLLAGENASE 5 GM TUBE TOP SCH (16:35)
[2020-03-04] MEDS: ACETAMINOPHEN 325 MG TAB PO PRN (16:39)
[2020-03-04] MEDS ORDERED: SODIUM CHLORIDE 0.9% 250ML 250 ML ONE (17:23)
[2020-03-04] MEDS ORDERED: SODIUM CHLORIDE 0.45% 1,000 ML IV ONE (19:45)
[2020-03-04] MEDS ORDERED: SODIUM CHLORIDE 0.45% 1,000 ML ONE (19:50)
[2020-03-04] MEDS: INSULIN GLARGINE 100 UNITS/ML VIAL SQ SCH (20:32)
[2020-03-05] VITALS (28 sets, daily range): BP systolic 88–125; BP diastolic 48–77
[2020-03-05] MEDS: PROPOFOL IV EMULSION 10MG/ML 100 ML IV SCH ×4 (01:57→21:00)
[2020-03-05] MEDS: MEROPENEM 1GM 100 ML IV SCH ×2 (01:57→09:47)
[2020-03-05] MEDS: MIDAZOLAM HCL 50 MG in SODIUM CHLORIDE 0.9% 100 ML 90 ML IV PRN ×4 (01:57→20:49)
[2020-03-05 05:56] LABS: BASOPHILS % 0.2 % (0.0-1.0); EOSINOPHILS % 0.4 % (0.0-6.0); HEMATOCRIT 29.7 % (38.2-49.6); HEMOGLOBIN 8.8 g/dL (14.0-18.0); LYMPHOCYTES # (AUTO) 0.6 (1.0-3.2); LYMPHOCYTES % 6.2 % (18.0-39.1); MEAN CORPUSCULAR HEMOGLOBIN 25.4 pg (28-32); MEAN CORPUSCULAR HGB CONC 29.6 g/dL (31-35); MEAN CORPUSCULAR VOLUME 85.6 fL (81-99); MONOCYTES # (AUTO) 1.5 (0.2-0.8); MONOCYTES % 14.9 % (4.4-11.3); NEUTROPHILS # (AUTO) 7.7 (2.1-6.9); PLATELET COUNT 299 x10e3/uL (140-360); RED BLOOD COUNT 3.47 x10e6/uL (4.3-5.7); RED CELL DISTRIBUTION WIDTH 15.2 % (11.7-14.4)
[2020-03-05 06:22] LABS: ALBUMIN 2.2 g/dL (3.5-5.0); ALBUMIN/GLOBULIN RATIO 0.5 (0.8-2.0); ANION GAP 12.7 mmol/L (8-16); CALCIUM 8.6 mg/dL (8.4-10.2); CREATININE, SERUM 1.65 mg/dL (0.72-1.25); POTASSIUM 5.7 mmol/L (3.5-5.1)
[2020-03-05] MEDS: INSULIN REGULAR, HUMAN 100 UNIT/1 ML 3ML VIAL SQ SCH ×3 (06:41→17:33)
[2020-03-05] MEDS: FENTANYL CITRATE INJ 2,000 MCG in SODIUM CHLORIDE 0.9% 250ML 210 ML IV PRN (06:46)
--- NOTE | 2020-03-05 06:57 | NUR ---
NOTIFIED DR. Terra CABRAL OF MORNING LABS, U/O, VENT CHANGES & ABG DRAWN. ORDER TO BOLUS REMAINING FLUID @ 250 CC/HR AND CONSULT NEPHROLOGY. ORDERS PLACED AND DAY SHIFT RN AWARE.
[2020-03-05] MEDS: ENOXAPARIN INJ 80 MG/0.8 ML SYR SC SCH (09:47)
[2020-03-05] MEDS: PANTOPRAZOLE 40 MG 10ML VIAL IV SCH ×2 (09:47→17:33)
[2020-03-05] MEDS: COLLAGENASE 5 GM TUBE TOP SCH (09:47)
[2020-03-05] MEDS: BALSAM PERU/CASTOR OIL 60 GM OINT...G. TP SCH (09:47)
[2020-03-05] MEDS: FUROSEMIDE INJ 10 MG/ML 4 ML VIAL IV SCH (09:47)
[2020-03-05] MEDS ORDERED: SOD POLYSTYRENE SULFONATE SUSP 15 GM/60 ML BTL PO ONE (10:00)
--- NOTE | 2020-03-05 10:26 | Consultation ---
DATE OF CONSULTATION: 03/05/2020 Renal Consultation REASON FOR CONSULTATION: Acute kidney injury, hyperkalemia. HISTORY OF PRESENT ILLNESS: A 35-year-old male with uncontrolled diabetes, who was sent to [facility] from his primary care physician's office for fevers, chills, hypoxia. CT of the chest showed scattered infiltrates. His COVID-19 came back positive. The patient was intubated shortly after arriving in the ICU. The patient has become oliguric, volume overload with hyperkalemia and Nephrology consultation was called. The patient is currently intubated and history is taken from medical record and nurses. REVIEW OF SYSTEMS: As above, otherwise unable to obtain. PAST MEDICAL HISTORY: Diabetes, poorly controlled. PAST SURGICAL HISTORY: Left hand surgery. SOCIAL HISTORY: Drinks alcohol socially. No tobacco. FAMILY HISTORY: Positive for diabetes. ALLERGIES: NO KNOWN DRUG ALLERGIES. CURRENT MEDICATIONS: 1. . 2. Propofol. 3. Fentanyl. 4. Meropenem. 5. Lovenox. PHYSICAL EXAMINATION: VITAL SIGNS: Blood pressure 90/64, pulse 87, temperature 96.4, FiO2 65%. GENERAL: Sedated. HEENT: Intubated. No scleral icterus. No peripheral edema. NECK: Supple. CHEST: Rhonchi anteriorly bilaterally with rales. CARDIOVASCULAR: Regular rhythm. No murmurs or rubs. ABDOMEN: Soft. No tenderness. No rebound. EXTREMITIES: 2+ pitting edema. No clubbing. No cyanosis. : Servin catheter with charla colored urine. LABORATORY DATA: Sodium 149, potassium 5.7, chloride 115, CO2 27, BUN 45, creatinine 1.65 up from 1.14, blood glucose 174, calcium 8.6, albumin 2.2. Urine from 02/18/2020, he has positive protein, positive RBCs, positive WBCs. Coronavirus, PCR positive for 03/03/2020 and 02/18/2020. IMAGING: Chest x-ray 03/04/2020 persistent diffuse bilateral alveolar consolidation, combination of viral pneumonia and ARDS. ASSESSMENT AND PLAN: 1. Acute kidney injury secondary to acute tubular necrosis secondary to sepsis and COVID-19. We will check urine studies. Hold off on any other imaging. CT of the chest 02/18/2020 did not remark on his kidneys, but abdomen was visualized. 2. Volume overload. We will start Lasix. 3. Hypernatremia. We will increase free water. 4. Hyperkalemia. We will change tube feeds to Nepro. Give a dose of Kayexalate and Lasix and repeat potassium. 5. Respiratory failure, ARDS secondary to COVID-19, remains intubated on the ventilator. Discussed with Dr. Crow. 6. Diabetes per primary team. MD NICOLE Bledsoe/MODL /[id number]
[2020-03-05 14:09] LABS: BILIRUBIN,URINE SMALL (NEGATIVE); CLARITY,URINE CLOUDY (CLEAR); COLOR,URINE YELLOW (YELLOW); KETONES,URINE NEGATIVE (NEGATIVE); LEUKOCYTE ESTERASE ,URINE NEGATIVE (NEGATIVE); NITRITE,URINE NEGATIVE (NEGATIVE); PROTEIN,URINE DIPSTICK 1+ (NEGATIVE); URINE UROBILINOGEN 0.2 mg/dL (0.2 - 1)
[2020-03-05 14:17] LABS: AMORPHOUS SEDIMENT,URINE FEW (FEW); BACTERIA,URINE MODERATE /HPF; RBC,URINE >50 /HPF (0-5)
[2020-03-05 14:18] LABS: MUCUS,URINE FEW (RARE)
[2020-03-05 14:33] LABS: CREATININE,URINE RANDOM 69.28 mg/dL (63-166); SODIUM,URINE 53 mmol/L; TOTAL PROTEIN, URINE 28.9 mg/dL (1-14)
--- NOTE | 2020-03-05 15:02 | Progress Note ---
DATE: SUBJECTIVE: The patient was placed in the prone position last night. He is back in a supine position. He had decreased urine output overnight. He was seen by Nephrology this morning and started on Lasix. The patient remains on a PRVC mode of ventilation at a rate of 26 with a tidal volume of 350 and PEEP of 14. His FiO2 is set at 60%. PHYSICAL EXAMINATION: HEENT: No facial swelling or erythema. The oral the patient has an oral endotracheal tube in place. LYMPHATIC: No submandibular, cervical, or supraclavicular adenopathy. CARDIAC: Regular rate and rhythm with a normal S1, S2. LUNGS: Auscultation of the lungs reveals rhonchorous breath sounds bilaterally. There is no wheezing. ABDOMEN: Soft, nontender. There is no rebound or guarding. EXTREMITIES: No leg edema or calf tenderness. There is no cyanosis or clubbing. SKIN: No rashes. NEUROLOGICAL: The patient to be sedated. LABORATORY DATA: Sodium is 149, and potassium is 5.7. The BUN to creatinine ratio is 45 to 1.65. White blood cell count is 9.96, and hemoglobin is 8.8. The platelet count is 299,000. IMPRESSION: 1. Acute respiratory failure. 2. Acute kidney injury. 3. Viral pneumonia secondary to COVID-19. 4. Deep vein thrombosis of the femoral vein. 5. Diabetes. PLAN: 1. Continue current antibiotics. 2. Increase Lasix as recommended by Nephrology. 3. Continue Lovenox. 4. Place the patient in prone position again tonight. 5. Continue to wean FiO2 and PEEP as tolerated. Severiano Crow MD [facility]/MODL /[id number]
[2020-03-05] MEDS ORDERED: FENTANYL CITRATE INJ 2,000 MCG in SODIUM CHLORIDE 0.9% 250ML 210 ML IV PRN (16:15)
--- NOTE | 2020-03-05 17:07 | Progress Note ---
DATE: SUBJECTIVE: Mr. Love remains in the Intensive Care Unit. His vent setting seems to be improved some today. His blood type is A negative. His cultures are negative. His white count 9.8 and hemoglobin 8.8. Sodium 149, potassium 5.7, creatinine 1.65 today, and glucose 175. His chest x-ray reviewed, discussed with Critical Care. PHYSICAL EXAMINATION: GENERAL: He is intubated, sedated. VITAL SIGNS: Stable. Afebrile. HEENT: Not icteric. NECK: Supple. CHEST: Crackles. COR: S1, S2. No S3, S4, or murmur. ABDOMEN: Soft. IMPRESSION: 1. COVID-19. 2. Respiratory failure with ARDS, seems to be clinically slowly better. He is going to be a prolonged wean. His PCR for COVID-19 from the is pending, but from the came back positive, so we have to wait a few more days and recheck. 3. Deep vein thrombosis. Continue with the anticoagulation. PLAN: Continue with supportive care. Discussed with Medical team. Time spent 45 minutes. MD HARVEY Alexis/MODL /[id number]
[2020-03-05] MEDS: INSULIN GLARGINE 100 UNITS/ML VIAL SQ SCH (21:44)
[2020-03-05 21:51] LABS: BASOPHILS % 0.2 % (0.0-1.0); EOSINOPHILS % 0.5 % (0.0-6.0); HEMATOCRIT 28.5 % (38.2-49.6); HEMOGLOBIN 8.5 g/dL (14.0-18.0); LYMPHOCYTES # (AUTO) 0.7 (1.0-3.2); LYMPHOCYTES % 8.1 % (18.0-39.1); MEAN CORPUSCULAR HEMOGLOBIN 25.5 pg (28-32); MEAN CORPUSCULAR HGB CONC 29.8 g/dL (31-35); MEAN CORPUSCULAR VOLUME 85.6 fL (81-99); MONOCYTES # (AUTO) 1.3 (0.2-0.8); MONOCYTES % 16.1 % (4.4-11.3); NEUTROPHILS % 74.1 % (38.7-80.0); PLATELET COUNT 290 x10e3/uL (140-360); RED BLOOD COUNT 3.33 x10e6/uL (4.3-5.7); RED CELL DISTRIBUTION WIDTH 15.5 % (11.7-14.4)
[2020-03-05 22:11] LABS: MAGNESIUM 3.4 MG/DL (1.3-2.1); PHOSPHORUS 5.9 MG/DL (2.3-4.7)
[2020-03-05 22:14] LABS: ALBUMIN/GLOBULIN RATIO 0.5 (0.8-2.0); ANION GAP 9.8 mmol/L (8-16); CALCIUM 8.3 mg/dL (8.4-10.2); CREATININE, SERUM 1.68 mg/dL (0.72-1.25); POTASSIUM 4.8 mmol/L (3.5-5.1)
[2020-03-06] VITALS (26 sets, daily range): BP systolic 94–131; BP diastolic 49–69
[2020-03-06] MEDS: INSULIN REGULAR, HUMAN 100 UNIT/1 ML 3ML VIAL SQ SCH ×4 (00:45→18:20)
[2020-03-06] MEDS: MIDAZOLAM HCL 50 MG in SODIUM CHLORIDE 0.9% 100 ML 90 ML IV PRN ×2 (01:26→06:28)
[2020-03-06 06:11] LABS: BASOPHILS % 0.1 % (0.0-1.0); EOSINOPHILS # (AUTO) 0.1 (0.0-0.4); EOSINOPHILS % 0.8 % (0.0-6.0); HEMATOCRIT 27.8 % (38.2-49.6); HEMOGLOBIN 8.5 g/dL (14.0-18.0); LYMPHOCYTES # (AUTO) 0.5 (1.0-3.2); LYMPHOCYTES % 6.2 % (18.0-39.1); MEAN CORPUSCULAR HGB CONC 30.6 g/dL (31-35); MONOCYTES # (AUTO) 1.2 (0.2-0.8); NEUTROPHILS # (AUTO) 5.7 (2.1-6.9); NEUTROPHILS % 75.7 % (38.7-80.0); PLATELET COUNT 292 x10e3/uL (140-360); RED BLOOD COUNT 3.27 x10e6/uL (4.3-5.7); RED CELL DISTRIBUTION WIDTH 15.8 % (11.7-14.4)
[2020-03-06 06:24] LABS: ALBUMIN 1.9 g/dL (3.5-5.0); ALBUMIN/GLOBULIN RATIO 0.4 (0.8-2.0); ANION GAP 11.8 mmol/L (8-16); CALCIUM 8.7 mg/dL (8.4-10.2); CREATININE, SERUM 1.65 mg/dL (0.72-1.25); POTASSIUM 4.8 mmol/L (3.5-5.1)
[2020-03-06 07:19] LABS: HYPOCHROMASIA SLIG; LYMPHOCYTES % (MANUAL) 9 % (19-48); MONOCYTES % (MANUAL) 13 % (3.4-9.0); NEUTROPHILS % (MANUAL) 78 % (40-74); PLATELET ESTIMATE ADEQUATE; PLATELET MORPHOLOGY COMMENT NORMAL; POLYCHROMASIA FEW; RBC MORPHOLOGY COMMENT NORMAL
[2020-03-06] MEDS ORDERED: SODIUM CHLORIDE 0.9% 250ML 250 ML ONE (08:18)
[2020-03-06] MEDS: PROPOFOL IV EMULSION 10MG/ML 100 ML IV SCH ×3 (08:40→22:00)
[2020-03-06] MEDS: FUROSEMIDE INJ 10 MG/ML 4 ML VIAL IV SCH ×3 (08:57→22:45)
[2020-03-06] MEDS: PANTOPRAZOLE 40 MG 10ML VIAL IV SCH ×2 (08:57→17:04)
[2020-03-06] MEDS ORDERED: MEROPENEM IV SCH (09:00)
[2020-03-06] MEDS: COLLAGENASE 5 GM TUBE TOP SCH ×2 (09:00→09:42)
[2020-03-06] MEDS ORDERED: SODIUM CHLORIDE 0.9% IV SCH (09:00)
[2020-03-06] MEDS: BALSAM PERU/CASTOR OIL 60 GM OINT...G. TP SCH (09:42)
[2020-03-06] MEDS: MEROPENEM 1GM 100 ML IV SCH (09:42)
[2020-03-06] MEDS ORDERED: ALBUMIN 25% 12.5GM 0.25 GM/ML BTL IV SCH (10:15)
--- NOTE | 2020-03-06 10:17 | Diagnostic Imaging Report ---
EXAMINATION: CHEST SINGLE (PORTABLE) INDICATION: Respiratory distress, pneumonia COMPARISON: Multiple prior chest radiographs most recently 03/04/2020 FINDINGS: LINES/TUBES:Endotracheal tube terminates 4 cm above the latasha. Enteric tube is postpyloric. EKG leads overlie the chest. LUNGS:The lung volumes remain low. Unchanged right greater than left airspace opacities. PLEURA:No pleural effusion or pneumothorax. MEDIASTINUM:The cardiomediastinal silhouette appears unchanged in size and shape. BONES/SOFT TISSUES:No acute osseous injury. Old right clavicular fracture. ABDOMEN:No free air under the diaphragm. IMPRESSION: No significant interval change. Signed by: Humberto Lopez MD on 03/06/2020 10:13 AM
[2020-03-06] MEDS: DEXTROSE 5% IV PRN ×3 (11:00→21:30)
[2020-03-06] MEDS: MIDAZOLAM HCL IV PRN ×2 (11:00→21:30)
--- NOTE | 2020-03-06 11:05 | Progress Note ---
DATE: 03/06/2020 CHIEF COMPLAINT/HISTORY OF PRESENT ILLNESS: A 35-year-old man, whose primary treating diagnosis is acute hypoxic respiratory failure, secondary to acute respiratory distress syndrome. The patient has ARDS, secondary to bilateral COVID-19 pneumonia. The patient had blood work done today, was found to have white blood cell count of 7500 with 75% segmented neutrophils. Hemoglobin is 8.5 g/dL. The patient was found to have Hemoccult-positive stools, thus enoxaparin was discontinued. According to nursing staff, the patient is doing better clinically. Unfortunately, he is making less urine and he has developed an unstageable sacral decubitus ulcer. The patient's BUN and creatinine today are 58 and 1.65 respectively. AST and ALT were 56 and 77 respectively. Albumin is 1.9 g/dL. Potassium 4.8. The patient underwent a chest x-ray on March 04, 2020, which revealed a persistent diffuse bilateral alveolar consolidations. REVIEW OF SYSTEMS: As per HPI. PHYSICAL EXAMINATION: VITAL SIGNS: He is sedated on a ventilator AC mode, FiO2 50%, oxygen saturation 98%, temperature 98.9, heart rate 100, respiratory rate 28, and blood pressure 100/60. BMI 30. INTEGUMENT: Skin is warm and dry. No pallor, jaundice, or diaphoresis. The patient has unstageable sacral decubitus ulcer. HEENT: The patient is orogastric and endotracheal tube in place. NECK: Supple. CARDIOVASCULAR: Tachycardic rate and rhythm. LUNGS: The patient has bibasilar crackles and diminished breath sounds. ABDOMEN: Soft. EXTREMITIES: No edema or deformity. NEUROLOGIC: He is on a ventilator and sedated. DIAGNOSES: 1. Acute hypoxic respiratory failure, secondary to acute respiratory distress syndrome. 2. Acute respiratory distress syndrome, secondary to bilateral COVID-19 pneumonia. 3. Unstageable sacral decubitus ulcer. 4. Right lower leg deep venous thrombosis. 5. Hemoccult-positive stools. 6. Qpslu-cf-odxnkap anemia, likely secondary to gastrointestinal losses. 7. Acute renal insufficiency, likely secondary to acute tubular necrosis. 8. Type 2 diabetes mellitus. PLAN: 1. Continue his fluids. 2. Continue intravenous meropenem. 3. Continue respiratory care as well as ventilator support. 4. Follow renal function. 5. Continue daily wound care to the patient's unstageable sacral decubitus ulcer. 6. We will hold enoxaparin since the patient has worsening anemia and Hemoccult- positive stools. 7. I discussed this case with the winder hand this morning, namely Dr. Severiano Crow. I spent 35 minutes in the care of this critical care patient. MD OLVIN Blackburn/FREDY /[id number]
--- NOTE | 2020-03-06 11:55 | Progress Note ---
DATE: Pulmonary Critical Care Progress Note SUBJECTIVE: The patient is still on a mechanical ventilator. They have decreased the FiO2 to 50%. He remains on PEEP of 14. He still has low urine output with some edema and evidence of total body overload. He was started on Lasix yesterday and is being followed by Nephrology. He has some sacral wound breakdown. He is being followed by Wound Care. PHYSICAL EXAMINATION: VITAL SIGNS: The patient is afebrile. The blood pressure is 108/54 and the saturation is 96%. He is on PRVC at a rate of 26 with a tidal volume of 380 and PEEP of 14. His FiO2 is set at 50%. HEENT: Shows no facial swelling or erythema. There is an oral endotracheal tube. CARDIAC: Reveals regular rate and rhythm with normal S1 and S2. There are no murmurs or rubs heard. LUNGS: Auscultation of lungs reveals crackles in the lung bases. There is no wheezing. ABDOMEN: Soft, nontender. There is no rebound or guarding. EXTREMITIES: Show no leg edema and there is some arm edema as well. LABORATORY DATA: BUN to creatinine ratio is 58 and 1.65, and the sodium is 149. AST is 56 and ALT is 77. The albumin is 1.9. The white blood cell count is 7.58 and hemoglobin is 8.5. The platelet count is 292. RADIOGRAPHIC DATA: Chest x-ray shows diffuse bilateral infiltrates. IMPRESSION: 1. Acute respiratory failure. 2. Acute respiratory distress syndrome. 3. Viral pneumonia secondary to COVID-19. 4. Acute kidney injury. 5. Diabetes. 6. Deep vein thrombosis of the femoral vein. 7. Sacral decubitus wound, unstageable. PLAN: 1. Continue to wean PEEP and FiO2 as tolerated. 2. Continue diuretics as recommended by Nephrology. We will also give albumin today. 3. Continue Lovenox. 4. Continue to monitor and control blood sugars. 5. Continue enteral feedings. 6. Case discussed with the Nephrology, Internal Medicine, Respiratory, tourist camp attendant nursing, and day shift nursing. Greater than 35 minutes in direct critical care time. Severiano Crow MD LM/FREDY /[id number]
[2020-03-06] MEDS: FENTANYL CITRATE IV PRN (12:13)
--- NOTE | 2020-03-06 18:42 | Progress Note ---
DATE: SUBJECTIVE: Mr. Love remains in intensive care unit. Remains on a ventilator. His vent settings seem to be better. His PEEP is 14, but I was told it was instructed to 12. FiO2 is 50. Remains low urine output. OBJECTIVE: VITALS: Stable, afebrile. HEENT: Normocephalic. CHEST: Few crackles. COR: S1-S2, no murmurs. ABDOMEN: Soft. Bowel sounds present. EXTREMITIES: No edema. IMPRESSION: 1. Respiratory failure. 2. COVID-19. 3. Acute on chronic kidney disease. 4. Diabetes mellitus. 5. Deep venous thrombosis of right femoral vein. PLAN: 1. The plan is to continue with supportive care. 2. Healthcare-associated pneumonia and meropenem, finished seven days. We will discontinue his antibiotics tomorrow. MD HARVEY Alexis/MODL /[id number]
[2020-03-06] MEDS: ENOXAPARIN INJ 80 MG/0.8 ML SYR SC SCH (22:36)
[2020-03-06] MEDS: INSULIN GLARGINE 100 UNITS/ML VIAL SQ SCH (22:41)
[2020-03-07] VITALS (27 sets, daily range): BP systolic 104–153; BP diastolic 53–94
[2020-03-07] MEDS ORDERED: METOCLOPRAMIDE HCL 10 MG/2ML VIAL IV ONE
[2020-03-07] MEDS: INSULIN REGULAR, HUMAN 100 UNIT/1 ML 3ML VIAL SQ SCH ×4 (01:50→18:39)
[2020-03-07] MEDS: DEXTROSE 5% IV PRN ×9 (02:22→22:30)
[2020-03-07] MEDS: FENTANYL CITRATE IV PRN ×4 (02:22→22:30)
[2020-03-07] MEDS: PROPOFOL IV EMULSION 10MG/ML 100 ML IV SCH ×3 (03:30→13:00)
[2020-03-07] MEDS: MIDAZOLAM HCL IV PRN ×5 (03:50→22:30)
[2020-03-07 06:19] LABS: BASOPHILS % 0.2 % (0.0-1.0); EOSINOPHILS # (AUTO) 0.1 (0.0-0.4); HEMATOCRIT 25.4 % (38.2-49.6); HEMOGLOBIN 7.9 g/dL (14.0-18.0); LYMPHOCYTES # (AUTO) 0.6 (1.0-3.2); LYMPHOCYTES % 9.9 % (18.0-39.1); MEAN CORPUSCULAR HEMOGLOBIN 26.2 pg (28-32); MEAN CORPUSCULAR HGB CONC 31.1 g/dL (31-35); MEAN CORPUSCULAR VOLUME 84.4 fL (81-99); MONOCYTES % 16.6 % (4.4-11.3); NEUTROPHILS # (AUTO) 4.4 (2.1-6.9); PLATELET COUNT 269 x10e3/uL (140-360); RED BLOOD COUNT 3.01 x10e6/uL (4.3-5.7); RED CELL DISTRIBUTION WIDTH 16.1 % (11.7-14.4)
[2020-03-07] MEDS: FUROSEMIDE INJ 10 MG/ML 4 ML VIAL IV SCH ×4 (06:28→22:30)
[2020-03-07 06:47] LABS: ALBUMIN/GLOBULIN RATIO 0.5 (0.8-2.0); ANION GAP 11.4 mmol/L (8-16); CALCIUM 8.8 mg/dL (8.4-10.2); CREATININE, SERUM 1.63 mg/dL (0.72-1.25); POTASSIUM 4.4 mmol/L (3.5-5.1)
[2020-03-07] MEDS: PANTOPRAZOLE 40 MG 10ML VIAL IV SCH ×2 (08:15→16:04)
[2020-03-07] MEDS: ENOXAPARIN INJ 80 MG/0.8 ML SYR SC SCH ×2 (08:15→22:30)
[2020-03-07] MEDS: MEROPENEM 1GM 100 ML IV SCH (08:15)
--- NOTE | 2020-03-07 09:21 | Diagnostic Imaging Report ---
TECHNIQUE: Frontal view of the chest. INDICATION: ARDS COMPARISON: Prior day. IMPRESSION: Lines and hardware: Stable. Heart and mediastinum: Stable. Lungs and pleura: Stable patchy airspace opacities throughout the right lung and at the left lung base. Probable small bilateral pleural effusions/thickening. No pneumothorax. Soft tissues and bones: No acute abnormality. Signed by: Aguilar Mart MD on 03/07/2020 9:17 AM
--- NOTE | 2020-03-07 09:44 | Progress Note ---
DATE: 03/07/2020 CHIEF COMPLAINT/HISTORY OF PRESENT ILLNESS: This is a 35-year-old man, whose primary treating diagnosis is acute respiratory failure secondary to acute respiratory distress syndrome. The patient has ARDS secondary to bilateral COVID viral pneumonia. The patient is currently on a ventilator AC mode. Blood work, the patient has a repeat coronavirus test from March 06, 2020, which is pending. The patient's BUN and creatinine today are 58 and 1.63 respectively. Potassium is 4.4. The patient's white blood cell count today is 6100 with 71% segmenters. Hemoglobin today is 7.9 g/dL. The patient underwent a chest film yesterday on March 06, 2020, which revealed unchanged right greater than left airspace opacities. REVIEW OF SYSTEMS: As per HPI. PHYSICAL EXAMINATION: GENERAL: He currently is sedated on a ventilator. VITAL SIGNS: Blood pressure is 112/56, oxygen saturation 93% on FiO2 of 50%, heart rate 100, temperature 98.6. BMI is 30. INTEGUMENT: Skin is warm and dry. Slight pallor. No jaundice or diaphoresis. The patient has unstageable sacral decubitus wound. HEENT: Anicteric sclerae with moist mucous membranes. The patient has orogastric and endotracheal tube in place. NECK: Supple. CARDIOVASCULAR: Tachycardic rate and regular rhythm. LUNGS: The patient has diminished breath sounds and crackles at the bases. The crackles and rhonchi in the upper lung alvarado have resolved. ABDOMEN: Soft. EXTREMITIES: The patient has trace edema in the lower legs. NEUROLOGIC: Intact. He is sedated with propofol as previously stated. No obvious neurologic deficits appreciated. DIAGNOSES: 1. Acute hypoxic respiratory failure secondary to acute respiratory distress syndrome. 2. Acute respiratory distress syndrome secondary to bilateral COVID pneumonia. 3. Unstageable sacral decubitus ulcer. 4. Right lower leg deep venous thrombosis. 5. Hemoccult-positive stools. 6. Oqkyo-vw-fztvvul anemia, likely secondary to gastrointestinal losses. 7. Acute renal insufficiency, likely secondary to acute tubular necrosis. 8. Type 2 diabetes. PLAN: 1. Continue intravenous meropenem. 2. Continue intravenous pantoprazole since the patient may have a stress-induced gastritis causing anemia. 3. Continue daily wound care to the patient's unstageable sacral decubitus ulcer. 4. Follow hemoglobin and hematocrit. 5. Continue enoxaparin for the patient's deep venous thrombosis. 6. Continue oxygenation via ventilator. 7. Continue to wean FiO2 as per automobile spring repairer orders. I spent 35 minutes in the care of this intensive care unit patient. MD OLVIN Blackburn/FREDY /[id number]
[2020-03-07 10:35] LABS: ABG PCO2 65 mmHg (35-45)
[2020-03-07 10:36] LABS: ABG BASE EXCESS 2.7 mmol/L (-2 - 3); ABG HCO3 31 mmol/L (21-29); ABG OXYGEN SATURATION 93.1 % (96-97)
[2020-03-07] MEDS: COLLAGENASE 5 GM TUBE TOP SCH (11:44)
[2020-03-07] MEDS: BALSAM PERU/CASTOR OIL 60 GM OINT...G. TP SCH (11:44)
--- NOTE | 2020-03-07 12:51 | NUR ---
WOUND CARE CONSULT FOR F/U OFSACRAL CHICHI PARREN 11 ON STRICT PUP STATUS AND INTERVENTIONS AND ALTERNATING PRESSURE MATTRESS SKIN ASSESSMENT COMPLETE PATIENT PRESENTS WITH UNSTAGEABLE ULCERATION 8CM X9CM 100% LIGHT BROWN STABLE ESCHAR RECOMMENDATIONS: NURSING TO CONTINUE TO MAINTAIN STRICT PUP STATUS AND INTERVENTIONS AND ALTERNATING PRESSURE MATTRESS NURSING TO CONTINUE TO MAINTAIN PATIENT NEEDED WITH NUTRITIONAL SUPPLEMENTS AND SUPPORT TO ENSURE PROPER REQUIREMENTS FOR HEALING NURSING TO CONTINUE TO OFFLOAD FEET AND HEELS NEEDED WITH PILLOW SUSPENSION WHEN IN BED NURSING TO CLEAN UNSTAGEABLE SACRAL ULCERATION STABLE ESCHAR WITH NORMAL SALINE DAILY AND APPLY BETADINE MOIST KLAUS AND COVER WITH ALLEVYN FOAM DRESSING ( ATTEMPT TO MAINTAIN STABLE ESCHAR WHILE PATIENT IS IN DEBILITATED STATE) Addendum: 03/07/20 at 1302 by Dedrick Chan RN Amended: Links added.
--- NOTE | 2020-03-07 16:05 | NUR ---
pt vs stable. per dr arias, 40iv lasix given prior to change to 60, ok to start 60 at next dose. also putting propofol on hold temporarily to eval pt response and minimize need.
--- NOTE | 2020-03-07 17:36 | Progress Note ---
DATE: SUBJECTIVE: Mr. Love remains in intensive care unit and intubated. LABORATORY DATA: Reviewed. Vitals reviewed. His white count 6.14, hemoglobin 7.8. Sodium 149, potassium 4.4, creatinine 1.3. OBJECTIVE: VITAL SIGNS: He is afebrile. HEENT: Normocephalic. CHEST: Few crackles in the bases. COR: S1, S2. No S3, S4, or murmur. ABDOMEN: Soft. Repeat PCR is still pending. IMPRESSION: 1. Respiratory failure, acute. 2. COVID-19 pneumonia. 3. Acute respiratory distress syndrome. 4. Right lower extremity deep venous thrombosis. 5. Acute kidney injury, underlying chronic kidney disease. 6. Diabetes mellitus with neuropathy. We will discontinue all his antibiotic today and continue supportive care. We will follow. MD HARVEY Alexis/MODL /[id number]
[2020-03-07] MEDS ORDERED: LORAZEPAM INJ 2 MG/ML VIAL IV STA (18:13)
[2020-03-07] MEDS: ACETAMINOPHEN 325 MG TAB PO PRN (18:36)
--- NOTE | 2020-03-07 18:39 | NUR ---
pt off propofol. hr and bp have increased from 100 to 110 hr and upto 150 sbp. no other signs of pain or agitation. MD notified, 1x order for Ativan recvd. Tylenol also given for increased temp.
[2020-03-07] MEDS ORDERED: INSULIN GLARGINE 100 UNITS/ML VIAL SQ SCH (21:00)
[2020-03-07] MEDS ORDERED: LORAZEPAM INJ 2 MG/ML VIAL IV PRN (21:00)
[2020-03-08] VITALS (27 sets, daily range): BP systolic 109–161; BP diastolic 54–75
[2020-03-08] MEDS: INSULIN REGULAR, HUMAN 100 UNIT/1 ML 3ML VIAL SQ SCH ×4 (01:46→17:34)
[2020-03-08 06:19] LABS: BASOPHILS % 0.1 % (0.0-1.0); EOSINOPHILS # (AUTO) 0.1 (0.0-0.4); HEMATOCRIT 26.6 % (38.2-49.6); LYMPHOCYTES # (AUTO) 0.6 (1.0-3.2); MEAN CORPUSCULAR HEMOGLOBIN 25.2 pg (28-32); MEAN CORPUSCULAR HGB CONC 30.1 g/dL (31-35); MEAN CORPUSCULAR VOLUME 83.6 fL (81-99); MONOCYTES # (AUTO) 1.2 (0.2-0.8); MONOCYTES % 16.7 % (4.4-11.3); NEUTROPHILS # (AUTO) 5.1 (2.1-6.9); NEUTROPHILS % 72.9 % (38.7-80.0); PLATELET COUNT 271 x10e3/uL (140-360); RED BLOOD COUNT 3.18 x10e6/uL (4.3-5.7); RED CELL DISTRIBUTION WIDTH 15.9 % (11.7-14.4)
[2020-03-08 06:41] LABS: ALBUMIN 1.8 g/dL (3.5-5.0); ALBUMIN/GLOBULIN RATIO 0.4 (0.8-2.0); ANION GAP 9.4 mmol/L (8-16); CALCIUM 7.7 mg/dL (8.4-10.2); CREATININE, SERUM 1.42 mg/dL (0.72-1.25); POTASSIUM 4.4 mmol/L (3.5-5.1)
[2020-03-08] MEDS: FENTANYL CITRATE IV PRN ×3 (06:55→20:30)
[2020-03-08] MEDS: MIDAZOLAM HCL IV PRN ×2 (06:55→11:25)
[2020-03-08] MEDS: DEXTROSE 5% IV PRN ×5 (06:55→20:30)
[2020-03-08] MEDS: FUROSEMIDE INJ 10 MG/ML 4 ML VIAL IV SCH ×3 (06:55→21:17)
--- NOTE | 2020-03-08 07:57 | NUR ---
Spoke with Dr. Mckeon and notified him of new consult.
[2020-03-08] MEDS: PANTOPRAZOLE 40 MG 10ML VIAL IV SCH ×2 (08:30→17:29)
[2020-03-08] MEDS: ENOXAPARIN INJ 80 MG/0.8 ML SYR SC SCH ×2 (08:30→17:30)
[2020-03-08] MEDS: SODIUM FERRIC GLUCONATE COMPLX 125 MG in SODIUM CHLORIDE 0.9% 100 ML 100 ML IV SCH (08:30)
[2020-03-08] MEDS: BALSAM PERU/CASTOR OIL 60 GM OINT...G. TP SCH (09:59)
--- NOTE | 2020-03-08 11:21 | NUR ---
Nutrition Intervention Note RD Recommendation(s) for Physician: - If pt started on dialysis, recommend modifying formula to Vital High Protein to goal rate of 50 ml/hr while on propofol (with current rate of propofol, would provide 1580 kcal, 105 gram protein). - Water flushes per MD. - Propofol providing an additional 380 lipid kcal/day. Plan of Care: RD following, monitoring for tolerance and adequacy. TF recs. Nutrition reason for involvement: follow up RD Assessment 03/08: Follow up. Pt remains intubated and sedated on Propofol and Fentanyl drips. No pressor support. Pt on TF of Nepro at 40 ml/hr. Renal trend noted, no dialysis currently. TF meeting estimated kcal and protein needs per current renal trend. TF rec's provided pending dialysis initiation and continued Propofol use. Chart reviewed. Will continue to monitor. 03/03: Follow up. Pt remains mechanically ventilated. Pt is receiving Glucerna 1.2 @ 40 ml/hr per chart. Pt is receiving 26.7 mL/hr of propofol which provides 705 kcal. Recommend modifying formula to Vital High Protein. Will continue to monitor. 02/28: Follow up. Pt remains intubated, sedated with Propofol and fentanyl drip. Pt not currently on pressors. TF currently off per am documentation, previously infusing at 20 ml/hr on 02/27 and 02/26- not meeting needs. Pt with increased water flushes per MD 2/2 hypernatremia. Chart reviewed. TF rec's relayed to RN. Will continue to monitor. 02/24: Follow up. Pt remains mechanically ventilated. Per RN, pt is tolerating tube feeding of Glucerna 1.2 @ 40 mL/hr. Recommend modifying formula to Vital High Protein. RD recommendation provided to nurse. Will continue to monitor. 02/20: 35 YOM admitted for hypoxemia, hyperglycemia with PMH listed below. Physical visit was deferred d/t hospitals infection disease policy. Pt is intubated on fentanyl and propofol. Pt is not on pressors as of now. The nurse reported the pt was ordered pressors over the weekend but has not needed it today. Nurse reported possible ARDS, they have not had to place the pt in the prone position yet. Pt was ordered Glucerna 1.2 at 20 ml/hr advance to goal rate of 60 ml/hr with 100 ml of water every 4 hours (1728 kcal, 86gram protein) . RD recommendations provided above and given to nurse. Unaware of propofol rate d/t not being able to enter the room and nurse not knowing at current time. Nurse reported the pt is currently on 20 ml/hr of Glucerna 1.2. Will continue to monitor. Principal Problems/Diagnoses: hypoxemia, hyperglycemia PMH: Uncontrolled type 2 diabetes mellitus. GI: LBM 03/06 x 3 Skin: unstagable sacral PU Labs: 03/08: Na 142, K 4.4, BUN 54, Cr 1.42, Gluc 323, POC Gluc 316-336 Meds: lasix, lantus, IV Fe, protonix, reglan IV/Drips: Propofol at 14.4 ml/hr (380 lipid kcal/day), Fentanyl drip Ht: 71 in Wt: 212 lbs (02/27) 215 lbs (02/23) 213 lb (02/20) BMI: 29.6 kg/m^2 IBW: 172 lbs Malnutrition Evaluation (03/08) -unable to perform nutrition assessment, isolation precautions for COVID-19 Nutrition Prescription (Diet Order): TF of Nepro at 40 ml/hr (1728 kcal and 78 gm protein) Estimated Nutritional Needs: Calories: 7588-7068 kcal/day (20- 25 kcal/kg/day) Weight used : IBW (78 kg) Protein : 78-156 protein/day (1-2 gram/kg/day ) Weight used: IBW- adjusted per renal function, no dialysis currently Diet Adequacy: meeting calorie needs, meeting protein needs Diet Education Needs Assessment: Diet education not indicated, patient on temporary/transition diet. Nutrition Care Level: moderate Nutrition Diagnosis: Inadequate energy intake related to medical condition as evidenced by the pt needing mechanical ventilation and need for TF to meet energy and protein needs. Goal: Patient will meet 75-100% of estimated needs by follow up Progress: progressing Interventions: -TF (Composition, Rate, Route),Recommended Modifications, Collaboration with other providers Monitoring/Evaluation: -Total energy intake, Total protein intake, Formula/Solution Signed: Chasidy Bridges RD, LD, [facility]
[2020-03-08 11:50] LABS: ABG BASE EXCESS 2.6 mmol/L (-2 - 3); ABG HCO3 30 mmol/L (21-29); ABG PCO2 60 mmHg (35-45); ABG PH 7.32 (7.35-7.45)
[2020-03-08] MEDS: ACETAMINOPHEN 325 MG TAB PO PRN (12:00)
--- NOTE | 2020-03-08 12:55 | Progress Note ---
DATE: SUBJECTIVE: Mr. Love remains in intensive care unit. His PEEP is at 12, FiO2 of 50%. LABORATORY DATA: Reviewed. White count 6.99, hemoglobin 8. Sodium 142. OBJECTIVE: VITAL SIGNS: Stable. No fever. Intubated still. HEENT: Normocephalic. CHEST: Few crackles. COR: S1 and S2. ABDOMEN: Soft. Bowel sounds present. No tenderness. LABORATORY DATA: His COVID-19 from the is still pending, from the and was positive. IMPRESSION: 1. Coronavirus disease 2019 pneumonia, present on admission. 2. Respiratory failure. 3. Acute respiratory distress syndrome. 4. Kgjny-vo-zsddfgx kidney disease. 5. Diabetic mellitus with ketoacidosis. Clinically stable. Slow weaning as tolerated. Await coronavirus disease 2019 test. If negative, then we will repeat another one. MD HARVEY Alexis/MODL /[id number]
--- NOTE | 2020-03-08 13:45 | NUR ---
Propofol gtt started at 50 mcg/kg/min. Titrated Versed gtt to 5 mg/hr and Fentanyl to 200 mcg/hr. Addendum: 03/08/20 at 1404 by Zenia Beltre RN Propofol gtt started at 5 mcg/kg/min, will titrate as needed
[2020-03-08] MEDS: PROPOFOL IV EMULSION 10 MG/ML 50 ML VIAL IV SCH ×2 (13:50→18:08)
--- NOTE | 2020-03-08 14:53 | NUR ---
Titrated Propofol gtt to 10 mcg/kg/min, Versed gtt to 7 mg/hr, and Fentanyl gtt to 275 mcg/hr. Patient appeared restless and agitated, HR elevated to 110's and SBP up to high 140's. Will continue to monitor and titrate drips accordingly.
--- NOTE | 2020-03-08 16:35 | Progress Note ---
DATE: SUBJECTIVE: The patient is decreased to 10 of PEEP and 50% FiO2. He continues to have some low-grade temperature of 99.4. He is tolerating enteral feedings. He is receiving Lasix and urinating with Lasix. PHYSICAL EXAMINATION: VITAL SIGNS: The blood pressure is 123/58 and saturation is 91%. Settings are PRVC at a rate of 24 with a tidal volume of 380 and FiO2 of 50%. PEEP is set at 10. HEENT: No facial swelling or erythema. CARDIAC: Regular rate and rhythm with normal S1, S2. LUNGS: Auscultation of the lungs reveals rhonchorous breath sounds bilaterally. There is no wheezing. ABDOMEN: Soft, nontender. There is no rebound or guarding. EXTREMITIES: Some leg edema more on the right. There is an unstageable decubitus ulcer on the sacrum. IMPRESSION: 1. Acute respiratory distress syndrome secondary to COVID. 2. Decubitus ulcer of the sacrum. 3. Acute kidney injury. 4. Diabetes. 5. Deep vein thrombosis. PLAN: 1. Continue to wean ventilator as tolerated. 2. Wound care consultation with possible debridement. 3. Continue diuretics. 4. Monitor renal function. 5. Increase Lantus and continue as needed subcu insulin. Severiano Crow MD [facility]/MODL /[id number]
--- NOTE | 2020-03-08 20:56 | Consultation ---
DATE OF CONSULTATION: Wound Consultation Thank you, Dr. العلي, for asking me to see this patient for sacral pressure ulcer. HISTORY OF PRESENT ILLNESS: A 35-year-old male patient, COVID-19 pneumonia, admitted to intensive care unit, respiratory failure, aoptl-de-ruzpbrv kidney disease, has developed unstageable pressure ulcer to both sacrum. Wound consult was called. Currently, the patient's wound is not infected. No drainage noted. Black eschar noted. Getting wet-to-dry dressing, advised to continue and consider Dakin's or saline wet-to-dry and the patient is critically ill on mechanical ventilation. MEDICATIONS: Lantus insulin 28 units at night, Lasix 80 mg IV q.8, Lovenox 80 mg subcutaneous q.12, fentanyl, and Protonix. ALLERGIES: NONE PHYSICAL EXAMINATION: VITAL SIGNS: Height 71 inches, weight 214 pounds. The patient is on mechanical ventilation, exam limited. EXTREMITIES: Sacral area, the patient has bilateral pressure ulcer. Necrotic, no drainage. Wound margin attached to base. Periwound is normal. No maceration. ASSESSMENT: Unstageable pressure ulcer. PLAN: Continue saline/Dakin's wet-to-dry. Thank you for consultation. MD ELIO Fallon/FREDY /[id number]
[2020-03-08] MEDS ORDERED: INSULIN GLARGINE 100 UNITS/ML VIAL SQ SCH (21:00)
[2020-03-09] VITALS (24 sets, daily range): BP systolic 116–155; BP diastolic 52–82
[2020-03-09] MEDS: INSULIN REGULAR, HUMAN 100 UNIT/1 ML 3ML VIAL SQ SCH ×4 (00:18→17:20)
[2020-03-09] MEDS: DEXTROSE 5% IV PRN ×7 (01:03→19:31)
[2020-03-09] MEDS: MIDAZOLAM HCL IV PRN ×4 (01:03→18:14)
[2020-03-09] MEDS: PROPOFOL IV EMULSION 10 MG/ML 50 ML VIAL IV SCH ×4 (02:59→22:54)
[2020-03-09 05:31] LABS: BASOPHILS % 0.1 % (0.0-1.0); EOSINOPHILS # (AUTO) 0.1 (0.0-0.4); EOSINOPHILS % 1.2 % (0.0-6.0); HEMATOCRIT 26.2 % (38.2-49.6); LYMPHOCYTES # (AUTO) 0.7 (1.0-3.2); LYMPHOCYTES % 9.2 % (18.0-39.1); MEAN CORPUSCULAR HEMOGLOBIN 25.5 pg (28-32); MEAN CORPUSCULAR HGB CONC 30.5 g/dL (31-35); MEAN CORPUSCULAR VOLUME 83.4 fL (81-99); MONOCYTES # (AUTO) 1.2 (0.2-0.8); MONOCYTES % 16.3 % (4.4-11.3); NEUTROPHILS # (AUTO) 5.4 (2.1-6.9); NEUTROPHILS % 71.6 % (38.7-80.0); PLATELET COUNT 301 x10e3/uL (140-360); RED BLOOD COUNT 3.14 x10e6/uL (4.3-5.7); RED CELL DISTRIBUTION WIDTH 15.9 % (11.7-14.4)
[2020-03-09 05:51] LABS: ALANINE AMINOTRANSFERASE 39 IU/L (0-55); ALBUMIN 1.7 g/dL (3.5-5.0); ALBUMIN/GLOBULIN RATIO 0.4 (0.8-2.0); ALKALINE PHOSPHATASE 192 IU/L (40-150); ANION GAP 9.1 mmol/L (8-16); BLOOD UREA NITROGEN 51 mg/dL (7-26); BUN/CREATININE RATIO 40 (6-25); CARBON DIOXIDE 33 mmol/L (22-29); CHLORIDE 103 mmol/L (98-107); CREATININE, SERUM 1.26 mg/dL (0.72-1.25); EST GLOMERULAR FILTRATION RATE > 60 ML/MIN (60-); GLUCOSE 295 mg/dL (74-118); POTASSIUM 4.1 mmol/L (3.5-5.1); SODIUM 141 mmol/L (136-145)
[2020-03-09] MEDS: FUROSEMIDE INJ 10 MG/ML 4 ML VIAL IV SCH ×3 (06:19→22:54)
[2020-03-09] MEDS: FENTANYL CITRATE IV PRN ×3 (06:22→19:31)
[2020-03-09] MEDS: SODIUM FERRIC GLUCONATE COMPLX 125 MG in SODIUM CHLORIDE 0.9% 100 ML 100 ML IV SCH (09:20)
[2020-03-09] MEDS: PANTOPRAZOLE 40 MG 10ML VIAL IV SCH ×2 (09:20→17:20)
[2020-03-09] MEDS: ENOXAPARIN INJ 80 MG/0.8 ML SYR SC SCH ×2 (09:20→22:54)
[2020-03-09] MEDS: SODIUM HYPOCHLORITE 0.25% 480 ML SOLN IR SCH (09:20)
--- NOTE | 2020-03-09 09:20 | NUR ---
Wilverin's wet to dry dressing applied to patients sacrum after area was cleaned. Covered with Allevyn dressing for added padding. Patient tolerated procedure well.
[2020-03-09 10:56] LABS: ABG BASE EXCESS 4.3 mmol/L (-2 - 3); ABG HCO3 32 mmol/L (21-29); ABG PCO2 58 mmHg (35-45); ABG PH 7.35 (7.35-7.45)
[2020-03-09 10:57] LABS: ABG OXYGEN SATURATION 94.3 % (96-97)
--- NOTE | 2020-03-09 12:23 | Progress Note ---
DATE: SUBJECTIVE: Mr. Love remains in intensive care unit. He has been here since 02/17. The patient remains on the ventilator, PEEP of 10, FiO2 50. OBJECTIVE: VITAL SIGNS: Stable, afebrile. HEENT: Normocephalic. NECK: No JVD. CHEST: Crackles bilateral. COR: S1 and S2. His COVID-19 from March 06 still pending. Continue droplet isolation. Continue with supportive care, very slow progress. Discussed with the medical team. No new recommendation. MD HARVEY Alexis/MODL /[id number]
--- NOTE | 2020-03-09 13:33 | Progress Note ---
DATE: SUBJECTIVE: The patient has remained on FiO2 of 50% and PEEP of 10. The patient was seen by Wound Care yesterday. The patient remains on fentanyl at 300 and Versed at 8. The patient continues to receive antral feedings as well as insulin. PHYSICAL EXAMINATION: VITAL SIGNS: The patient's vital signs are stable. Blood pressure is 125/66 and saturation is 91%. The patient is on a PRVC mode of ventilation. Tidal volume of 400 with a tidal volume of 360, rate of 24, and FiO2 of 50%. PEEP is set at 10. HEENT: Shows no facial swelling or erythema. There is no oral endotracheal tube. CARDIAC: Reveals regular rate and rhythm with normal S1, S2. LUNGS: Auscultation of lungs reveals decreased breath sounds at the bases. There is no wheezing. ABDOMEN: Soft, nontender. There is no rebound or guarding. There is a decubitus ulcer on the sacrum. LABORATORY DATA: Blood gas is 7.35, 58, 76, and 32. The BUN to creatinine ratio is 51 to 1.26 and the other electrolytes are within normal limits. Blood sugars 300 to 320. IMPRESSION: 1. Acute respiratory failure. 2. Viral pneumonia, secondary to COVID-19. 3. Sacral decubitus ulcer. 4. Acute kidney injury. 5. Diabetes. 6. Deep vein thrombosis. PLAN: 1. Continue current wound care. Discussed need for debridement with wound care. 2. Await repeat coronavirus test. Once the patient has 2 negative tests, he will need a tracheostomy. 3. Continue to wean the patient as tolerated. 4. Continue diuretics for fluid removal. 5. Continue to monitor renal function. Severiano Crow MD [facility]/MODL /[id number]
[2020-03-09] MEDS ORDERED: INSULIN GLARGINE 100 UNITS/ML VIAL SQ SCH (21:00)
[2020-03-10] VITALS (26 sets, daily range): BP systolic 98–149; BP diastolic 52–71
[2020-03-10] MEDS: INSULIN REGULAR, HUMAN 100 UNIT/1 ML 3ML VIAL SQ SCH ×3 (00:27→12:03)
[2020-03-10] MEDS: DEXTROSE 5% IV PRN ×8 (00:28→23:46)
[2020-03-10] MEDS: MIDAZOLAM HCL IV PRN ×4 (00:28→21:00)
[2020-03-10] MEDS: FENTANYL CITRATE IV PRN ×4 (02:41→23:46)
[2020-03-10 04:54] LABS: BASOPHILS % 0.3 % (0.0-1.0); EOSINOPHILS # (AUTO) 0.1 (0.0-0.4); EOSINOPHILS % 1.4 % (0.0-6.0); HEMATOCRIT 26.9 % (38.2-49.6); HEMOGLOBIN 8.2 g/dL (14.0-18.0); LYMPHOCYTES # (AUTO) 0.6 (1.0-3.2); LYMPHOCYTES % 8.7 % (18.0-39.1); MEAN CORPUSCULAR HEMOGLOBIN 25.2 pg (28-32); MEAN CORPUSCULAR HGB CONC 30.5 g/dL (31-35); MEAN CORPUSCULAR VOLUME 82.5 fL (81-99); MONOCYTES % 14.4 % (4.4-11.3); NEUTROPHILS # (AUTO) 4.9 (2.1-6.9); NEUTROPHILS % 72.8 % (38.7-80.0); PLATELET COUNT 343 x10e3/uL (140-360); RED BLOOD COUNT 3.26 x10e6/uL (4.3-5.7); RED CELL DISTRIBUTION WIDTH 15.5 % (11.7-14.4)
[2020-03-10 05:11] LABS: ALANINE AMINOTRANSFERASE 30 IU/L (0-55); ALBUMIN 1.7 g/dL (3.5-5.0); ALBUMIN/GLOBULIN RATIO 0.4 (0.8-2.0); ALKALINE PHOSPHATASE 175 IU/L (40-150); ANION GAP 10.9 mmol/L (8-16); BLOOD UREA NITROGEN 48 mg/dL (7-26); BUN/CREATININE RATIO 43 (6-25); CALCIUM 8.6 mg/dL (8.4-10.2); CARBON DIOXIDE 33 mmol/L (22-29); CHLORIDE 101 mmol/L (98-107); CREATININE, SERUM 1.12 mg/dL (0.72-1.25); EST GLOMERULAR FILTRATION RATE > 60 ML/MIN (60-); GLUCOSE 327 mg/dL (74-118); POTASSIUM 3.9 mmol/L (3.5-5.1); SODIUM 141 mmol/L (136-145)
[2020-03-10] MEDS: FUROSEMIDE INJ 10 MG/ML 4 ML VIAL IV SCH ×3 (06:23→21:32)
[2020-03-10] MEDS: PROPOFOL IV EMULSION 10 MG/ML 50 ML VIAL IV SCH ×4 (07:00→22:59)
[2020-03-10 07:10] LABS: ANISOCYTOSIS SLIGHT; LYMPHOCYTES % (MANUAL) 6 % (19-48); METAMYELOCYTES % (MANUAL) 1 % (0-0); MONOCYTES % (MANUAL) 11 % (3.4-9.0); MYELOCYTES % (MANUAL) 1 % (0-0); NEUTROPHILS % (MANUAL) 81 % (40-74); PLATELET ESTIMATE ADEQUATE; PLATELET MORPHOLOGY COMMENT FEW GIANT; RBC MORPHOLOGY COMMENT NORMAL
[2020-03-10] MEDS: ENOXAPARIN INJ 80 MG/0.8 ML SYR SC SCH ×2 (08:47→21:32)
[2020-03-10] MEDS: PANTOPRAZOLE 40 MG 10ML VIAL IV SCH ×2 (08:47→16:33)
--- NOTE | 2020-03-10 09:01 | Progress Note ---
DATE: 03/10/2020 CHIEF COMPLAINT/HISTORY OF PRESENT ILLNESS: This is a 35-year-old man, whose primary treating diagnosis is acute hypoxic respiratory failure secondary to ARDS. The patient has ARDS secondary to bilateral COVID pneumonia. The patient had a repeat COVID test performed on March 06, 2020 and the coronavirus by PCR still detected. Blood work today revealed hemoglobin 8.2 g/dL. White blood cell count 6600 with 81% segmented neutrophils. REVIEW OF SYSTEMS: As per HPI. PHYSICAL EXAMINATION: GENERAL: He is intubated and sedated. He is on AC mode, PEEP is 10, FiO2 60%, oxygen saturation is 93%, blood pressure is 120/60, respiratory rate 26, heart rate 110 and temperature currently is 98.6, his highest temperature in the last 24 hours was 99.1 at 1 o'clock this morning. INTEGUMENT: Skin is warm and dry. Slight pallor. He has an unstageable decubitus deep tissue injury. HEENT: Anicteric sclerae. He has orogastric and endotracheal tube in place. NECK: Supple. CARDIOVASCULAR: Tachycardic rate. LUNGS: He has crackles in the bibasilar area. ABDOMEN: Soft. EXTREMITIES: No edema. NEUROLOGIC: No gross deficits. He is sedated on a ventilator and is sedated. DIAGNOSIS: 1. Acute hypoxic respiratory failure secondary to acute respiratory distress syndrome. 2. Acute respiratory distress syndrome secondary to bilateral COVID pneumonia. 3. Unstageable sacral decubitus ulcer. 4. Right lower leg deep venous thrombosis. 5. Hemoccult-positive stools. 6. Acute on chronic anemia likely secondary to gastrointestinal losses. 7. Acute renal insufficiency likely secondary to acute tubular necrosis, resolving. 8. Type 2 diabetes mellitus. PLAN: 1. Continue intravenous pantoprazole since the patient may have stress induced gastritis or ulcer causing anemia. 2. Continue daily wound care to the patient's unstageable sacral decubitus ulcer. 3. Follow hemoglobin, hematocrit. 4. Continue enoxaparin for patient's deep venous thrombosis. 5. Continue oxygenation via ventilator. 6. Blood glucose control. I spent 25 minutes in the care of this intensive care unit. MD OLVIN Blackburn/FREDY /[id number]
--- NOTE | 2020-03-10 09:10 | NUR ---
PROGRESS [id number]
--- NOTE | 2020-03-10 09:15 | NUR ---
ASSESSMENT: Spiritual distress Telephonic visit w/ pt's father, Donovan ([phone]). Pt's father states, "many people are praying" and asks for continued prayer support. Pt's father "thankful" for work of nurses and is concerned about nurses and their families during pandemic. Intervention: Provided hospitality and emotional support. Provided information about availability of vender services and how to reach medicare coordinator, if needed. Provided prayer. Outcome: Pt's father expressed appreciation for call and support. Will follow as able. BINDU VACA Motion Graphics Designer Spiritual Care Department O: [phone]
--- NOTE | 2020-03-10 10:28 | Diagnostic Imaging Report ---
EXAMINATION: CHEST SINGLE (PORTABLE) INDICATION: Respiratory failure COMPARISON: Multiple prior chest radiograph most recently 03/07/2020 FINDINGS: LINES/TUBES:Endotracheal tube terminates 4 cm above the latasha. Enteric tube projects below the diaphragm into the stomach with tip not visualized. Right PICC line terminates at the superior cavoatrial junction. EKG leads overlie the chest. LUNGS:The lungs are moderately inflated. Unchanged bilateral right greater than left airspace opacities. PLEURA:No pleural effusion or pneumothorax. MEDIASTINUM:The cardiomediastinal silhouette appears unchanged in size and shape. BONES/SOFT TISSUES:No acute osseous injury. ABDOMEN:No free air under the diaphragm. IMPRESSION: No significant interval change. Signed by: Humberto Lopez MD on 03/10/2020 10:25 AM
[2020-03-10] MEDS: SODIUM HYPOCHLORITE 0.25% 480 ML SOLN IR SCH (11:00)
[2020-03-10] MEDS: BALSAM PERU/CASTOR OIL 60 GM OINT...G. TP SCH (11:00)
[2020-03-10 12:35] LABS: ABG PCO2 69 mmHg (35-45); ABG PH 7.32 (7.35-7.45)
[2020-03-10 12:36] LABS: ABG HCO3 36 mmol/L (22-26)
--- NOTE | 2020-03-10 14:33 | Progress Note ---
DATE: SUBJECTIVE: Mr. Love is a 35-year-old male who was diagnosed with COVID-19 and ARDS. This is day #17. The patient developed acute on chronic kidney disease. He is on a ventilator, remains intubated, sedated. His repeat COVID-19 is positive still. PHYSICAL EXAMINATION: GENERAL: He is sedated, intubated. VITAL SIGNS: Stable, afebrile. He is on PEEP 10, FiO2 of 50%. HEENT: Normocephalic. CHEST: Few rhonchi. COR: S1-S2. No S3, S4, or murmur. ABDOMEN: Soft. Bowel sounds present. No tenderness. EXTREMITIES: No edema. IMPRESSION: Respiratory failure, acute respiratory distress syndrome due to COVID-19. We have to repeat the test again, the last time was positive on 13. We will repeat it again today, today is 17. Continue with supportive care. Prognosis is very guarded, but hopeful he is slowly improving. Panfilo Hillman MD [facility]/MODL /[id number]
[2020-03-10] MEDS ORDERED: DEXTROSE 50% SYRINGE 50 ML IV PRN (16:45)
[2020-03-10] MEDS ORDERED: ALBUMIN 25% 25GM 100ML 0.25 GM/ML BTL IV ONE (17:30)
[2020-03-10] MEDS: INSULIN REGULAR, HUMAN 3ML VL 100 UNIT in SODIUM CHLORIDE 0.9% 100 ML IV SCH ×4 (17:32→19:15)
[2020-03-10] MEDS ORDERED: ALBUMIN 25% 25GM 100ML 200 ML IV ONE (18:00)
[2020-03-11] VITALS (23 sets, daily range): BP systolic 96–167; BP diastolic 50–73
[2020-03-11] MEDS: MIDAZOLAM HCL IV PRN ×4 (03:40→19:15)
[2020-03-11] MEDS: DEXTROSE 5% IV PRN ×6 (03:40→22:57)
[2020-03-11] MEDS: PROPOFOL IV EMULSION 10 MG/ML 50 ML VIAL IV SCH ×5 (04:27→22:05)
[2020-03-11 05:21] LABS: BASOPHILS % 0.3 % (0.0-1.0); EOSINOPHILS # (AUTO) 0.1 (0.0-0.4); EOSINOPHILS % 1.4 % (0.0-6.0); HEMATOCRIT 26.5 % (38.2-49.6); LYMPHOCYTES # (AUTO) 0.6 (1.0-3.2); LYMPHOCYTES % 8.5 % (18.0-39.1); MEAN CORPUSCULAR HEMOGLOBIN 24.8 pg (28-32); MEAN CORPUSCULAR HGB CONC 30.2 g/dL (31-35); MEAN CORPUSCULAR VOLUME 82.3 fL (81-99); MONOCYTES # (AUTO) 0.9 (0.2-0.8); MONOCYTES % 11.9 % (4.4-11.3); NEUTROPHILS # (AUTO) 5.6 (2.1-6.9); NEUTROPHILS % 76.4 % (38.7-80.0); PLATELET COUNT 356 x10e3/uL (140-360); RED BLOOD COUNT 3.22 x10e6/uL (4.3-5.7); RED CELL DISTRIBUTION WIDTH 15.4 % (11.7-14.4)
[2020-03-11] MEDS: FUROSEMIDE INJ 10 MG/ML 4 ML VIAL IV SCH ×3 (05:39→21:18)
[2020-03-11 05:49] LABS: ALANINE AMINOTRANSFERASE 27 IU/L (0-55); ALBUMIN 2.4 g/dL (3.5-5.0); ALBUMIN/GLOBULIN RATIO 0.5 (0.8-2.0); ALKALINE PHOSPHATASE 150 IU/L (40-150); ANION GAP 8.6 mmol/L (8-16); BLOOD UREA NITROGEN 43 mg/dL (7-26); BUN/CREATININE RATIO 38 (6-25); CALCIUM 9.5 mg/dL (8.4-10.2); CARBON DIOXIDE 38 mmol/L (22-29); CHLORIDE 98 mmol/L (98-107); CREATININE, SERUM 1.14 mg/dL (0.72-1.25); EST GLOMERULAR FILTRATION RATE > 60 ML/MIN (60-); GLUCOSE 263 mg/dL (74-118); POTASSIUM 3.6 mmol/L (3.5-5.1); SODIUM 141 mmol/L (136-145)
[2020-03-11] MEDS: PANTOPRAZOLE 40 MG 10ML VIAL IV SCH ×2 (09:00→16:38)
[2020-03-11] MEDS: ENOXAPARIN INJ 80 MG/0.8 ML SYR SC SCH ×2 (09:00→21:18)
--- NOTE | 2020-03-11 10:36 | Progress Note ---
DATE: 03/11/2020 CHIEF COMPLAINT/HISTORY OF PRESENT ILLNESS: This is a 35-year-old man, whose primary treating diagnosis is acute respiratory failure secondary to ARDS. The patient has ARDS secondary to bilateral COVID-19 pneumonia. The patient is currently on a ventilator. Blood work today revealed white blood cell count of 7300 with 76% segmenters. Hemoglobin is 8 g/dL. The patient's BUN and creatinine today is 43 and 1.14, respectively. Potassium 3.6. The patient's glucose levels have been elevated. According to nursing staff, insulin drip started. The patient underwent a chest x-ray yesterday on March 10, 2020, which revealed persistent bilateral infiltrates, slightly worse on the right than the left, this was unchanged from previous chest x-rays. REVIEW OF SYSTEMS: As per HPI. PHYSICAL EXAMINATION: GENERAL: The gentleman is more awake, he opens his eyes. He is only sedated, not paralyzed. He is on ventilator, AC setting, FiO2 is 50%. Oxygen saturation is 96%. PEEP is 10. VITAL SIGNS: Heart rate is 100, respiratory rate is 26, blood pressure 130/70. His BMI is 29. INTEGUMENT: Skin is warm and dry. Slight pallor. No jaundice or diaphoresis. The patient has unstageable 4 x 4 cm sacral ulcer that has a significant amount of loss. HEENT: Anicteric sclerae. He has orogastric and endotracheal tube in place. NECK: Supple. CARDIOVASCULAR: Tachycardic rate and rhythm. LUNGS: The patient has clear lung sounds in upper lung alvarado. Diminished breath sounds in the bases. ABDOMEN: Soft. EXTREMITIES: No edema or deformity. NEUROLOGIC: No gross deficits. He is sedated and on a ventilator as previously stated. DIAGNOSES: 1. Acute hypoxic respiratory failure secondary to ARDS. 2. ARDS secondary to bilateral COVID pneumonia. 3. Bilateral COVID pneumonia. 4. Type 2 diabetes mellitus, uncontrolled. 5. Acute renal insufficiency, resolved. 6. Acute right lower extremity deep venous thrombosis. 7. Anemia secondary to chronic disease. 8. Unstageable sacral decubitus ulcer (4 x 4 cm). PLAN: 1. Continue enoxaparin for the patient's deep venous thrombosis. 2. Continue supportive care for the patient's bilateral COVID pneumonia. 3. Continue oxygenation via ventilator. 4. Nutritional support. 5. Glucose control. 6. Continue weaning FiO2 as much as possible. 7. Continue wound care to the patient's unstageable sacral decubitus ulcer. I spent 25 minutes in the care of this intensive care unit patient. MD OLVIN Blackburn/FREDY /[id number] MTDD
[2020-03-11] MEDS: BALSAM PERU/CASTOR OIL 60 GM OINT...G. TP SCH (10:54)
[2020-03-11] MEDS: SODIUM HYPOCHLORITE 0.25% 480 ML SOLN IR SCH (10:54)
[2020-03-11] MEDS ORDERED: PROPOFOL IV EMULSION 10MG/ML 100 ML ONE (13:52)
[2020-03-11] MEDS: ACETAMINOPHEN 325 MG TAB PO PRN (14:45)
[2020-03-11] MEDS: FENTANYL CITRATE IV PRN ×2 (15:05→22:57)
--- NOTE | 2020-03-11 16:37 | Progress Note ---
DATE: SUBJECTIVE: The patient remains on Versed and fentanyl. His FiO2 is decreased to 50%. He is on 8 of PEEP. His respiratory rate was decreased to 22 and his tidal volume was increased to 400. He is afebrile. The patient is urinating. PHYSICAL EXAMINATION: VITAL SIGNS: Blood pressure is 104/51, saturation is 93%. T-max is 100.2. The pulse is 102. He is on a pressure regulated volume control at a rate of 22 with a tidal volume of 400 and PEEP of 8. His FiO2 is set at 50%. HEENT: Shows no facial swelling or erythema. He has an oral endotracheal tube in place. LYMPHATIC: No submandibular, cervical, or supraclavicular adenopathy. CARDIAC: Reveals regular rate and rhythm with normal S1 and S2. LUNGS: Auscultation of lungs reveals rhonchorous breath sounds bilaterally. There is no wheezing. ABDOMEN: Soft and nontender. There is no rebound or guarding. EXTREMITIES: No leg edema or calf tenderness. There is no cyanosis or clubbing. SKIN: Shows no rashes. He has an unstageable decubitus ulcer on his sacrum. LABORATORY DATA: White blood cell count is 7.3, hemoglobin is 8, and the platelet count is 356. The BUN to creatinine ratio is 43 to 1.14. Other electrolytes are within normal limits. Blood sugar is now 200 to 240. RADIOGRAPHIC DATA: Chest x-ray shows continued infiltrates, more on the right than the left. IMPRESSION: 1. Acute respiratory failure. 2. Viral pneumonia and COVID-19. 3. Sacral decubitus ulcer. 4. Moderate protein-calorie malnutrition. 5. Type 2 diabetes. 6. Deep vein thrombosis. PLAN: 1. Continue to wean respiratory rate and oxygen as tolerated. 2. Decrease sedation as tolerated. 3. Possible spontaneous breathing trial within the next several days. 4. Evaluation for tracheostomy is underway. 5. Continue enteral feedings. 6. Continue insulin drip. 7. Continue anticoagulation. Plan discussed with the slot shift supervisor, nursing, dayshift nursing, Respiratory, Infectious Disease, and Internal Medicine. Greater than 35 minutes in direct critical care time. Severiano Crow MD [facility]/MODL /[id number]
[2020-03-12] VITALS (25 sets, daily range): BP systolic 98–179; BP diastolic 49–78
[2020-03-12] MEDS: MIDAZOLAM HCL IV PRN ×2 (00:51→05:58)
[2020-03-12] MEDS: DEXTROSE 5% IV PRN ×4 (00:51→17:02)
[2020-03-12] MEDS: PROPOFOL IV EMULSION 10 MG/ML 50 ML VIAL IV SCH ×6 (02:08→22:00)
[2020-03-12 05:01] LABS: BASOPHILS % 0.1 % (0.0-1.0); EOSINOPHILS # (AUTO) 0.2 (0.0-0.4); HEMATOCRIT 25.1 % (38.2-49.6); LYMPHOCYTES # (AUTO) 0.7 (1.0-3.2); LYMPHOCYTES % 9.7 % (18.0-39.1); MEAN CORPUSCULAR HEMOGLOBIN 25.7 pg (28-32); MEAN CORPUSCULAR HGB CONC 31.9 g/dL (31-35); MEAN CORPUSCULAR VOLUME 80.7 fL (81-99); MONOCYTES # (AUTO) 0.9 (0.2-0.8); MONOCYTES % 11.8 % (4.4-11.3); NEUTROPHILS # (AUTO) 5.5 (2.1-6.9); NEUTROPHILS % 74.8 % (38.7-80.0); PLATELET COUNT 382 x10e3/uL (140-360); RED BLOOD COUNT 3.11 x10e6/uL (4.3-5.7); RED CELL DISTRIBUTION WIDTH 15.5 % (11.7-14.4)
[2020-03-12 05:15] LABS: ANION GAP 12.3 mmol/L (8-16); BLOOD UREA NITROGEN 43 mg/dL (7-26); BUN/CREATININE RATIO 42 (6-25); CALCIUM 8.6 mg/dL (8.4-10.2); CARBON DIOXIDE 36 mmol/L (22-29); CHLORIDE 95 mmol/L (98-107); CREATININE, SERUM 1.02 mg/dL (0.72-1.25); EST GLOMERULAR FILTRATION RATE > 60 ML/MIN (60-); GLUCOSE 256 mg/dL (74-118); POTASSIUM 3.3 mmol/L (3.5-5.1); SODIUM 140 mmol/L (136-145)
[2020-03-12] MEDS: FUROSEMIDE INJ 10 MG/ML 4 ML VIAL IV SCH ×3 (06:07→21:57)
[2020-03-12 06:23] LABS: ABG PCO2 58 mmHg (35-45); ABG PH 7.44 (7.35-7.45)
[2020-03-12 06:24] LABS: ABG HCO3 39 mmol/L (22-26)
[2020-03-12] MEDS: FENTANYL CITRATE IV PRN ×2 (08:16→17:02)
[2020-03-12] MEDS ORDERED: POTASSIUM CHLORIDE 10MEQ EA PO NR (08:45)
--- NOTE | 2020-03-12 09:13 | Progress Note ---
DATE: 03/12/2020 CHIEF COMPLAINT/HISTORY OF PRESENT ILLNESS: This is a 35-year-old man, whose primary treating diagnosis is acute hypoxic respiratory failure secondary to ARDS. The patient's ARDS secondary to bilateral COVID pneumonia. The patient was started on intravenous furosemide every 8 hours two nights ago because of volume overload. The patient's BUN and creatinine today is 43 and 1.02, respectively and potassium is 3.3. The patient's white blood cell count 7300 with 74% segmented neutrophils. The patient's hemoglobin is 8 g/dL. REVIEW OF SYSTEMS: As per HPI. PHYSICAL EXAMINATION: GENERAL: He is sedated on a ventilator. He is on AC mode. VITAL SIGNS: FiO2 is 60%, ox saturation is 96%. Respiratory rate is 24, pulse 108, blood pressure is 136/82, and temperature is 98.4. BMI is 30. INTEGUMENT: Skin is warm and dry. Slight pallor. No jaundice or diaphoresis. The patient has a 4 x 4 cm unstageable deep tissue injury in the sacral area. HEENT: Anicteric sclerae. The patient has an orogastric and an endotracheal tube in place. NECK: Supple. CARDIOVASCULAR: Tachycardic rate, irregular rhythm. LUNGS: The patient has rhonchi and crackles in the bilateral lung alvarado, worse in the left. ABDOMEN: Soft. Normal bowel sounds. EXTREMITIES: No edema or deformity. NEUROLOGIC: He is sedated, on a ventilator as previously stated. DIAGNOSES: 1. Acute hypoxic respiratory failure secondary to ARDS. 2. ARDS secondary to bilateral COVID pneumonia. 3. Bilateral COVID pneumonia. 4. Type 2 diabetes mellitus, uncontrolled. 5. Acute renal insufficiency, resolved. 6. Acute right lower extremity deep venous thrombosis. 7. Anemia secondary to chronic disease. 8. Unstageable sacral decubitus ulcer (4 x 4 cm). PLAN: 1. Continue intravenous furosemide for the patient's volume overload. 2. Replete potassium. 3. Continue high dose enoxaparin twice a day for his acute deep venous thrombosis. 4. Continue intravenous insulin for the patient's diabetes mellitus. 5. Continue oxygenation via ventilator. I spent 30 minutes in the care of this intensive care unit patient. MD OLVIN Blackburn/FREDY /[id number] MTDD
[2020-03-12] MEDS: ENOXAPARIN INJ 80 MG/0.8 ML SYR SC SCH ×2 (09:29→21:56)
[2020-03-12] MEDS: SODIUM HYPOCHLORITE 0.25% 480 ML SOLN IR SCH (09:29)
[2020-03-12] MEDS: PANTOPRAZOLE 40 MG 10ML VIAL IV SCH ×2 (09:29→17:01)
[2020-03-12] MEDS: BALSAM PERU/CASTOR OIL 60 GM OINT...G. TP SCH (09:29)
[2020-03-12] MEDS ORDERED: POTASSIUM CHLORIDE 20MEQ/15ML UDC NG NR (09:30)
[2020-03-12] MEDS ORDERED: PROPOFOL IV EMULSION 10MG/ML 100 ML ONE ×2 (09:32→16:04)
--- NOTE | 2020-03-12 10:19 | Progress Note ---
DATE: SUBJECTIVE: The patient was switched to a spontaneous breathing trial with a pressure support of 10 and a CPAP of 8. His breathing 16 to 20 times a minute with tidal volumes of 500 mL to 600 mL. His O2 saturation is 91% on 50%. His Diprivan is held, but he remains on Versed at 10 mg an hour as well as on a fentanyl drip. He is still receiving enteral feedings as well as Lovenox. PHYSICAL EXAMINATION: VITAL SIGNS: The patient is afebrile. The blood pressure is 135/57, heart rate is 102. Respiratory rate is 20. He is on CPAP of 8 with pressure support of 10. HEENT: Shows no facial swelling or erythema. LUNGS: Auscultation of lungs reveals rhonchorous breath sounds at the bases. There is no wheezing. CARDIAC: Reveals regular rate and rhythm with normal S1, S2. ABDOMEN: Soft, nontender. There is no rebound or guarding. EXTREMITIES: Show no leg edema or calf tenderness. There is a sacral wound that is unstageable. LABORATORY DATA: White blood cell count is 7.3 and hemoglobin is 8. The platelet count is 542. The [facility]-ah-svsscxbnqm ratio is 43 to 1.02. Potassium is 3.3. Other electrolytes are within normal limits. IMPRESSION: 1. Acute respiratory failure. 2. COVID-19 infection. 3. Sacral decubitus ulcer. 4. Moderate protein-calorie malnutrition. 5. Diabetes. 6. Deep vein thrombosis. PLAN: 1. Continue spontaneous breathing trial. Repeat ABG in 1 hour. 2. Stop Diprivan and wean Versed as tolerated. 3. Continue enteral feedings. 4. Continue insulin drip. 5. Continue anticoagulation. 6. Continue Lasix for now. 7. Case discussed with nursing staff, Respiratory, Internal Medicine, Infectious Disease, and administration. Greater than 35 minutes in direct critical care time. Severiano Crow MD [facility]/MODL /[id number]
--- NOTE | 2020-03-12 10:28 | Diagnostic Imaging Report ---
EXAMINATION: CHEST SINGLE (PORTABLE) INDICATION: Hypoxemia. Bilateral pneumonia. COMPARISON: . FINDINGS: LINES/TUBES:Endotracheal tube terminates 3 cm above the latasha. Enteric tube with the distal tip projected on the second portion of the duodenum. Right PICC line terminates at the superior cavoatrial junction. EKG leads overlie the chest. LUNGS:Extensive patchy airspace disease in the right lung with volume loss in the lower lobe again observed. Slight decrease in left perihilar patchy airspace disease. PLEURA: Bilateral small pleural effusions. No pneumothorax. MEDIASTINUM:The cardiomediastinal silhouette appears unchanged in size and shape. BONES/SOFT TISSUES:No acute osseous injury. ABDOMEN:No free air under the diaphragm. IMPRESSION: Slight interval decrease in left perihilar patchy density, otherwise is unchanged. Signed by: Dr. Emili Kurtz M.D. on 03/12/2020 10:25 AM
[2020-03-12] MEDS: MIDAZOLAM HCL 50 MG in SODIUM CHLORIDE 0.9% 100 ML 90 ML IV PRN ×3 (12:00→21:59)
--- NOTE | 2020-03-12 12:39 | NUR ---
Dr. Crow at bedside this morning. attempted sbt at 0955 Psupport 10, peep 8 pt increased labored breathing, increased rr, desating 80's. sbt for 15-20minutes. Addendum: 03/12/20 at 1249 by Brooklyn Ren RN pt on prvc with sedation to calm patient.
[2020-03-12] MEDS ORDERED: VECURONIUM BROMIDE FOR INJ 20 MG VIAL IV NR (15:12)
--- NOTE | 2020-03-12 15:14 | NUR ---
notified dr.l arias of increased work of breathing , temp 100.6 bladder, hr 115, rr 24, sat 90-93%. new orders obtained. will continue to assess patient. CLIMATE CHANGE ANALYST at bedside
[2020-03-12] MEDS ORDERED: SODIUM CHLORIDE 0.9% 250ML 250 ML ONE (16:05)
[2020-03-12] MEDS: VANCOMYCIN 1GM/NS 250 ML 250 ML IV SCH (17:01)
[2020-03-12] MEDS: CEFEPIME 1GM/NS 0.9% 50 ML 50 ML IV SCH (17:02)
[2020-03-12] MEDS ORDERED: ALBUMIN 25% 25GM 100ML 0.25 GM/ML BTL IV ONE (17:15)
[2020-03-12] MEDS: INSULIN REGULAR, HUMAN 3ML VL 100 UNIT in SODIUM CHLORIDE 0.9% 100 ML IV SCH ×2 (22:01)
[2020-03-13] VITALS (24 sets, daily range): BP systolic 91–172; BP diastolic 51–76
[2020-03-13] MEDS: PROPOFOL IV EMULSION 10 MG/ML 50 ML VIAL IV SCH ×3 (00:52→19:42)
[2020-03-13] MEDS: DEXTROSE 5% IV PRN (00:53)
[2020-03-13] MEDS: FENTANYL CITRATE IV PRN (00:53)
[2020-03-13] MEDS: MIDAZOLAM HCL 50 MG in SODIUM CHLORIDE 0.9% 100 ML 90 ML IV PRN ×2 (02:18→16:54)
[2020-03-13] MEDS: CEFEPIME 1GM/NS 0.9% 50 ML 50 ML IV SCH ×2 (03:45→16:16)
[2020-03-13] MEDS: FUROSEMIDE INJ 10 MG/ML 4 ML VIAL IV SCH (05:17)
[2020-03-13 05:28] LABS: BASOPHILS % 0.1 % (0.0-1.0); EOSINOPHILS # (AUTO) 0.1 (0.0-0.4); EOSINOPHILS % 0.9 % (0.0-6.0); HEMATOCRIT 23.1 % (38.2-49.6); HEMOGLOBIN 7.2 g/dL (14.0-18.0); LYMPHOCYTES # (AUTO) 0.7 (1.0-3.2); LYMPHOCYTES % 6.5 % (18.0-39.1); MEAN CORPUSCULAR HEMOGLOBIN 25.3 pg (28-32); MEAN CORPUSCULAR HGB CONC 31.2 g/dL (31-35); MEAN CORPUSCULAR VOLUME 81.1 fL (81-99); MONOCYTES # (AUTO) 0.9 (0.2-0.8); MONOCYTES % 8.8 % (4.4-11.3); NEUTROPHILS # (AUTO) 8.5 (2.1-6.9); NEUTROPHILS % 82.9 % (38.7-80.0); PLATELET COUNT 353 x10e3/uL (140-360); RED BLOOD COUNT 2.85 x10e6/uL (4.3-5.7); RED CELL DISTRIBUTION WIDTH 15.5 % (11.7-14.4)
[2020-03-13 05:51] LABS: ALANINE AMINOTRANSFERASE 26 IU/L (0-55); ALBUMIN 2.5 g/dL (3.5-5.0); ALBUMIN/GLOBULIN RATIO 0.6 (0.8-2.0); ALKALINE PHOSPHATASE 172 IU/L (40-150); ANION GAP 11.6 mmol/L (8-16); BLOOD UREA NITROGEN 39 mg/dL (7-26); BUN/CREATININE RATIO 35 (6-25); CALCIUM 8.9 mg/dL (8.4-10.2); CARBON DIOXIDE 38 mmol/L (22-29); CHLORIDE 95 mmol/L (98-107); CREATININE, SERUM 1.13 mg/dL (0.72-1.25); EST GLOMERULAR FILTRATION RATE > 60 ML/MIN (60-); GLUCOSE 245 mg/dL (74-118); POTASSIUM 3.6 mmol/L (3.5-5.1); SODIUM 141 mmol/L (136-145)
[2020-03-13] MEDS ORDERED: FUROSEMIDE INJ 100 MG in SODIUM CHLORIDE 0.9% 100 ML 90 ML IV SCH ×5 (07:30→09:00)
[2020-03-13 08:02] LABS: ABG PCO2 55 mmHg (35-45); ABG PH 7.44 (7.35-7.45)
[2020-03-13 08:03] LABS: ABG HCO3 38 mmol/L (22-26)
[2020-03-13 08:19] LABS: ABG HCO3 31 mmol/L (22-26); ABG PCO2 44 mmHg (35-45); ABG PH 7.46 (7.35-7.45)
--- NOTE | 2020-03-13 08:57 | Progress Note ---
DATE: 03/13/2020 CHIEF COMPLAINT/HISTORY OF PRESENT ILLNESS: This is a 35-year-old man, whose primary treating diagnosis is acute respiratory failure secondary to bilateral COVID-19, cristhian pneumonia. The patient is currently on intravenous vancomycin and cefepime to treat presumed bacterial pneumonia. The patient had a chest film yesterday on March 12, 2020, which revealed slight decrease in left perihilar patchy density, but he still has extensive patchy airways disease in the right lung. Blood work today revealed a white blood cell count 10,200, with 82% segmenters. Hemoglobin 7.2 g/dL. The patient's BUN and creatinine today is 39 and 1.13 respectively. Potassium 3.6. REVIEW OF SYSTEMS: As per HPI. PHYSICAL EXAMINATION: GENERAL: He is sedated on a ventilator. He is on AC mode. VITAL SIGNS: FiO2 is 70%, oxygen saturation is 92%, heart rate is 100, respiratory rate 26, blood pressure 136/62, temperature is 99.3. The temperature did get as high as 100.7 yesterday at 4:00 p.m. INTEGUMENT: Skin is warm and dry. Slight pallor. The patient has a 4 x 4 cm unstageable sacral decubitus deep tissue injury. HEENT: Anicteric sclerae. The patient has orogastric and endotracheal tube in place. NECK: Supple. CARDIOVASCULAR: Tachycardic rate and rhythm. LUNGS: The patient has crackles in bilateral lung alvarado more pronounced today than previously. ABDOMEN: Soft. EXTREMITIES: No edema or deformity. NEUROLOGIC: He is sedated on a ventilator. DIAGNOSES: 1. Acute hypoxic respiratory failure secondary to bilateral COVID-19 pneumonia. 2. Bilateral pneumonia, likely Gram-negative cristhian. 3. Ventilator dependent. 4. Type 2 diabetes mellitus, uncontrolled. 5. Acute right lower leg deep venous thrombosis. 6. Anemia secondary to chronic disease and gastrointestinal losses. PLAN: 1. Follow hemoglobin and hematocrit. 2. Continue intravenous antibiotics. 3. Continue enoxaparin twice a day for the patient's acute right lower leg deep venous thrombosis. 4. Continue supportive care. I spent 25 minutes in care of this intensive care unit patient. MD OLVIN Blackburn/FREDY /[id number] SHERIF
[2020-03-13] MEDS: BALSAM PERU/CASTOR OIL 60 GM OINT...G. TP SCH (09:00)
[2020-03-13] MEDS ORDERED: EPOETIN ALFA-EPBX 10,000 UNIT/ML VIAL SC SCH (09:00)
[2020-03-13] MEDS: SODIUM HYPOCHLORITE 0.25% 480 ML SOLN IR SCH (09:00)
[2020-03-13] MEDS: PANTOPRAZOLE 40 MG 10ML VIAL IV SCH ×2 (09:00→16:54)
--- NOTE | 2020-03-13 09:59 | NUR ---
Follow up call to Pt's father - Reminded pt's father of carving machine operator's availability and how to reach carving machine operator, if needed. Pt's father expressed appreciation for support. Will continue to follow as able. BINDU VACA Mail Processing Associate Spiritual Care Department O: [phone]
[2020-03-13 10:32] LABS: ABG HCO3 41 mmol/L (22-26); ABG PCO2 59 mmHg (35-45); ABG PH 7.44 (7.35-7.45)
[2020-03-13] MEDS ORDERED: ACETAZOLAMIDE SODIUM 500 MG/VIAL IV ONE (11:00)
[2020-03-13] MEDS ORDERED: SODIUM FERRIC GLUCONATE COMPLX 125 MG in SODIUM CHLORIDE 0.9% 100 ML 100 ML IV ONE (11:30)
--- NOTE | 2020-03-13 13:43 | NUR ---
Nutrition Intervention Note RD Recommendation(s) for Physician: - Continue TF of Nepro at 40 ml/hr for now (providing 1728 kcal and 78 gm protein). - If pt started on dialysis, recommend modifying formula to Vital High Protein to goal rate of 65 ml/hr while on propofol (to provide 1560 kcal, 137 gram protein). - Water flushes per MD. Plan of Care: RD following, monitoring for tolerance and adequacy. TF recs. Nutrition reason for involvement: follow up RD Assessment 03/13: Follow up. Pt remains intubated and sedated, off Propofol and continues on Fentanyl drip. Pt continues on TF of Nepro at 40 ml/hr, no dialysis initiated and renal trend improving. TF meeting current estimated needs. Current rec's remain appropriate. Chart reviewed. Will continue to monitor. 03/08: Follow up. Pt remains intubated and sedated on Propofol and Fentanyl drips. No pressor support. Pt on TF of Nepro at 40 ml/hr. Renal trend noted, no dialysis currently. TF meeting estimated kcal and protein needs per current renal trend. TF rec's provided pending dialysis initiation and continued Propofol use. Chart reviewed. Will continue to monitor. 03/03: Follow up. Pt remains mechanically ventilated. Pt is receiving Glucerna 1.2 @ 40 ml/hr per chart. Pt is receiving 26.7 mL/hr of propofol which provides 705 kcal. Recommend modifying formula to Vital High Protein. Will continue to monitor. 02/28: Follow up. Pt remains intubated, sedated with Propofol and fentanyl drip. Pt not currently on pressors. TF currently off per am documentation, previously infusing at 20 ml/hr on 02/27 and 02/26- not meeting needs. Pt with increased water flushes per MD 2/2 hypernatremia. Chart reviewed. TF rec's relayed to RN. Will continue to monitor. 02/24: Follow up. Pt remains mechanically ventilated. Per RN, pt is tolerating tube feeding of Glucerna 1.2 @ 40 mL/hr. Recommend modifying formula to Vital High Protein. RD recommendation provided to nurse. Will continue to monitor. 02/20: 35 YOM admitted for hypoxemia, hyperglycemia with PMH listed below. Physical visit was deferred d/t hospitals infection disease policy. Pt is intubated on fentanyl and propofol. Pt is not on pressors as of now. The nurse reported the pt was ordered pressors over the weekend but has not needed it today. Nurse reported possible ARDS, they have not had to place the pt in the prone position yet. Pt was ordered Glucerna 1.2 at 20 ml/hr advance to goal rate of 60 ml/hr with 100 ml of water every 4 hours (1728 kcal, 86gram protein) . RD recommendations provided above and given to nurse. Unaware of propofol rate d/t not being able to enter the room and nurse not knowing at current time. Nurse reported the pt is currently on 20 ml/hr of Glucerna 1.2. Will continue to monitor. Principal Problems/Diagnoses: hypoxemia, hyperglycemia PMH: Uncontrolled type 2 diabetes mellitus. GI: LBM 03/07- last BM documented Skin: unstagable sacral PU Labs: 03/13: Na 141, K 3.6, BUN 39, Cr 1.13, Gluc 245, POC Gluc 261-286 03/08: Na 142, K 4.4, BUN 54, Cr 1.42, Gluc 323, POC Gluc 316-336 Meds: abx, ativan, protonix IV/Drips: Fentanyl drip, furosemide drip Ht: 71 in Wt: 212 lbs (02/27) 215 lbs (02/23) 213 lb (02/20) BMI: 29.6 kg/m^2 IBW: 172 lbs Malnutrition Evaluation (03/08) -unable to perform nutrition assessment, isolation precautions for COVID-19 Nutrition Prescription (Diet Order): TF of Nepro at 40 ml/hr (1728 kcal and 78 gm protein) Estimated Nutritional Needs: Calories: 2260-2261 kcal/day (20- 25 kcal/kg/day) Weight used : IBW (78 kg) Protein : 78-156 protein/day (1-2 gram/kg/day ) Weight used: IBW- adjusted per renal function, no dialysis currently Diet Adequacy: meeting calorie needs, meeting protein needs Diet Education Needs Assessment: Diet education not indicated, patient on temporary/transition diet. Nutrition Care Level: moderate Nutrition Diagnosis: Inadequate energy intake related to medical condition as evidenced by the pt needing mechanical ventilation and need for TF to meet energy and protein needs. Goal: Patient will meet 75-100% of estimated needs by follow up Progress: progressing Interventions: -TF (Composition, Rate, Route),Recommended Modifications, Collaboration with other providers Monitoring/Evaluation: -Total energy intake, Total protein intake, Formula/Solution Signed: Chasidy Brdiges RD, MEET, CNSC
--- NOTE | 2020-03-13 14:26 | Diagnostic Imaging Report ---
Bilateral chest ultrasound History: Pleural effusion Technique/findings: Limited bilateral chest ultrasound was performed to evaluate for pleural effusion. This demonstrated a tiny trace effusions on the right and left. IMPRESSION: Tiny trace effusion on the right and left, insufficient in volume for safe performance of thoracentesis. Signed by: Humberto Lopez MD on 03/13/2020 2:22 PM
[2020-03-13] MEDS: ENOXAPARIN INJ 80 MG/0.8 ML SYR SC SCH (16:16)
[2020-03-13] MEDS: VANCOMYCIN 1GM/NS 250 ML 250 ML IV SCH (16:30)
[2020-03-13] MEDS: FENTANYL CITRATE INJ 2,000 MCG in SODIUM CHLORIDE 0.9% 250ML 210 ML IV PRN (16:54)
--- NOTE | 2020-03-13 17:49 | Progress Note ---
DATE: SUBJECTIVE: The patient is still on a mechanical ventilator. His FiO2 is at 65% and his PEEP is at 10. He remains on fentanyl and Versed. His Lasix was stopped today and he was started on Diamox because of an elevated bicarbonate. PHYSICAL EXAMINATION: VITAL SIGNS: The patient is afebrile. The blood pressure is 135/63 and the saturation is 96%. He is on a PRVC at a rate of 22 with a tidal volume of 400 and a PEEP of 10. His FiO2 is set at 65%. HEENT: Shows no facial swelling or erythema. LYMPHATIC: Shows no submandibular, cervical, or supraclavicular adenopathy. CARDIAC: Reveals regular rate and rhythm with normal S1 and S2. LUNGS: Auscultation of lungs shows decreased breath sounds on the right side. ABDOMEN: Soft, nontender. There is no rebound or guarding. EXTREMITIES: Show no leg edema or calf tenderness. There is no cyanosis or clubbing. SKIN: Shows no rashes. NEUROLOGICAL: Shows the patient to be sedated. LABORATORY DATA: White blood cell count is 10.3 and hemoglobin is 7.2. The platelet count is 353. The BUN to creatinine ratio is 39 to 1.13. The glucose is 250 to 300. Blood gas is 7.44, 59, 54 and 41. IMPRESSION: 1. Acute respiratory failure. 2. COVID-19 infection. 3. Sacral decubitus ulcer. 4. Moderate protein-calorie malnutrition. 5. Diabetes. 6. Deep vein thrombosis. 7. Possible pleural effusion. PLAN: 1. Ultrasound to assess for fluid in the right pleural space. Depending on the quantity of fluid, we will consider a thoracentesis. 2. Continue to wean FiO2 as tolerated. 3. Continue enteral feedings. 4. Continue insulin drip. 5. Continue anticoagulation. 6. The patient has been switched from Lasix to Diamox. 7. Case discussed with Nephrology, Internal Medicine, Infectious Disease, administration, respiratory and nursing. Greater than 35 minutes in direct critical care time. Severiano Crow MD [facility]/MODL /[id number]
--- NOTE | 2020-03-13 18:43 | Progress Note ---
DATE: SUBJECTIVE: Mr. Love remains in intensive care unit on a ventilator. LABORATORY DATA: White count is 10.28 and hemoglobin 7.2. His PCR is still positive for COVID-19 . PHYSICAL EXAMINATION: GENERAL: Intubated and sedated. VITAL SIGNS: Stable. Currently afebrile. HEENT: Not icteric. NECK: Supple. CHEST: Clear. IMPRESSION: 1. COVID-19 present on admission. 2. Acute respiratory distress syndrome. 3. Respiratory failure. 4. Acute on chronic kidney disease. PLAN: Slowly getting better. Continue with the same. Await few days and then check another PCR. MD HARVEY Alexis/MODL /[id number]
[2020-03-14] VITALS (25 sets, daily range): BP systolic 112–147; BP diastolic 58–69
[2020-03-14] MEDS: MIDAZOLAM HCL 50 MG in SODIUM CHLORIDE 0.9% 100 ML 90 ML IV PRN ×4 (00:13→21:22)
[2020-03-14] MEDS: FENTANYL CITRATE INJ 2,000 MCG in SODIUM CHLORIDE 0.9% 250ML 210 ML IV PRN ×3 (00:55→18:05)
[2020-03-14] MEDS: ACETAMINOPHEN 325 MG TAB PO PRN (00:55)
[2020-03-14] MEDS: PROPOFOL IV EMULSION 10 MG/ML 50 ML VIAL IV SCH ×3 (01:15→15:50)
[2020-03-14] MEDS: CEFEPIME 1GM/NS 0.9% 50 ML 50 ML IV SCH ×2 (03:30→16:00)
[2020-03-14 05:26] LABS: BASOPHILS % 0.1 % (0.0-1.0); EOSINOPHILS # (AUTO) 0.1 (0.0-0.4); HEMATOCRIT 24.1 % (38.2-49.6); HEMOGLOBIN 7.4 g/dL (14.0-18.0); LYMPHOCYTES # (AUTO) 0.9 (1.0-3.2); LYMPHOCYTES % 6.3 % (18.0-39.1); MEAN CORPUSCULAR HEMOGLOBIN 25.2 pg (28-32); MEAN CORPUSCULAR HGB CONC 30.7 g/dL (31-35); MONOCYTES # (AUTO) 1.1 (0.2-0.8); MONOCYTES % 8.3 % (4.4-11.3); NEUTROPHILS # (AUTO) 11.2 (2.1-6.9); NEUTROPHILS % 83.5 % (38.7-80.0); PLATELET COUNT 387 x10e3/uL (140-360); RED BLOOD COUNT 2.94 x10e6/uL (4.3-5.7); RED CELL DISTRIBUTION WIDTH 15.6 % (11.7-14.4)
[2020-03-14 05:55] LABS: ALANINE AMINOTRANSFERASE 28 IU/L (0-55); ALBUMIN 2.2 g/dL (3.5-5.0); ALBUMIN/GLOBULIN RATIO 0.5 (0.8-2.0); ALKALINE PHOSPHATASE 191 IU/L (40-150); ANION GAP 8.6 mmol/L (8-16); BLOOD UREA NITROGEN 35 mg/dL (7-26); BUN/CREATININE RATIO 34 (6-25); CALCIUM 8.8 mg/dL (8.4-10.2); CARBON DIOXIDE 38 mmol/L (22-29); CHLORIDE 96 mmol/L (98-107); CREATININE, SERUM 1.04 mg/dL (0.72-1.25); EST GLOMERULAR FILTRATION RATE > 60 ML/MIN (60-); GLUCOSE 226 mg/dL (74-118); POTASSIUM 3.6 mmol/L (3.5-5.1); SODIUM 139 mmol/L (136-145)
--- NOTE | 2020-03-14 06:10 | Diagnostic Imaging Report ---
EXAMINATION: CHEST SINGLE (PORTABLE) INDICATION: Respiratory failure COMPARISON: Chest radiograph 03/12/2020. FINDINGS: LINES/TUBES:Endotracheal tube terminates 5.1 cm above the latasha. Enteric tube projects below the diaphragm into the stomach with tip not visualized. Right PICC line terminates at the superior cavoatrial junction. EKG leads overlie the chest. LUNGS:Low lung volumes on the right. Bilateral airspace opacities, increased on the right. PLEURA:Increased small right pleural effusion. No pneumothorax. MEDIASTINUM:The cardiomediastinal silhouette appears unchanged in size and shape. BONES/SOFT TISSUES:No acute osseous injury. Remote right clavicular fracture deformity. ABDOMEN:No free air under the diaphragm. IMPRESSION: Bilateral airspace opacities, increased on the right, compatible with a combination of pneumonia and ARDS. Increased small right pleural effusion. Signed by: Dr. Yariel Almeida MD on 03/14/2020 6:06 AM
[2020-03-14 07:34] LABS: ABG PCO2 51 mmHg (35-45)
[2020-03-14 07:35] LABS: ABG HCO3 25 mmol/L (21-29)
[2020-03-14 07:42] LABS: ABG PCO2 58 mmHg (35-45); ABG PH 7.34 (7.35-7.45)
[2020-03-14 07:43] LABS: ABG BASE EXCESS 2.9 mmol/L (-2 - 3); ABG HCO3 30 mmol/L (21-29); ABG OXYGEN SATURATION 96.2 % (96-97)
[2020-03-14] MEDS: SODIUM HYPOCHLORITE 0.25% 480 ML SOLN IR SCH (09:00)
[2020-03-14] MEDS: BALSAM PERU/CASTOR OIL 60 GM OINT...G. TP SCH (09:00)
--- NOTE | 2020-03-14 09:00 | Progress Note ---
DATE: 03/14/2020 CHIEF COMPLAINT/HISTORY OF PRESENT ILLNESS: This is a 35-year-old man, whose primary treating diagnosis is acute respiratory failure secondary to bilateral COVID-19 pneumonia. The patient is currently on intravenous vancomycin and cefepime to treat presumed bacterial pneumonia. The patient's chest film today March 14, 2020, revealed bilateral airspace opacities, increased in the right. Blood work today revealed a BUN and creatinine of 35 and 1.04 respectively. Potassium 3.63. Serum bicarbonate is 38. The patient's hemoglobin is 7.4 g/dL. White blood cell count 13,400 with 83% segmented neutrophils. REVIEW OF SYSTEMS: As per HPI. PHYSICAL EXAMINATION: GENERAL: He is sedated on a ventilator. He is on AC mode. VITAL SIGNS: FiO2 is 70%, ox saturation is 94%. Temperature 99.3, pulse 96, respiratory rate 24, blood pressure 120/60. INTEGUMENT: Skin is warm and dry. Slight pallor. The patient has unstageable 4 x 4 cm sacral decubitus ulcer. HEENT: Anicteric sclerae. The patient has orogastric and endotracheal tube in place. NECK: Supple. CARDIOVASCULAR: The patient has crackles and rhonchi in the right lung field, diminished on the left. ABDOMEN: Soft. EXTREMITIES: No edema or deformity. NEUROLOGIC: Intact. He is sedated on ventilator. DIAGNOSES: 1. Acute hypoxic respiratory failure secondary to bilateral COVID-19 pneumonia. 2. Bilateral pneumonia likely gram-negative cristhian. 3. Ventilator dependent. 4. Type 2 diabetes mellitus, uncontrolled. 5. Acute right lower extremity deep venous thrombosis. 6. Anemia secondary to chronic disease and gastrointestinal losses. 7. Unstageable sacral decubitus ulcer. PLAN: 1. Wound care to the patient's sacral decubitus ulcer. 2. Follow hemoglobin and hematocrit. 3. Intravenous antibiotics. 4. Continue enoxaparin twice a day for the patient's acute right lower leg deep venous thrombosis. 5. Supportive care. I spent 20 minutes in care of this intensive care unit patient. MD OLVIN Blackburn/FREDY /[id number]
[2020-03-14] MEDS: PANTOPRAZOLE 40 MG 10ML VIAL IV SCH ×2 (09:13→17:00)
--- NOTE | 2020-03-14 09:16 | Progress Note ---
DATE: SUBJECTIVE: The patient is on 65% oxygen with PEEP at 8. This patient continues on Versed and fentanyl. The patient's Lasix drip was stopped yesterday and he was started on Diamox. PHYSICAL EXAMINATION: VITAL SIGNS: The patient is afebrile. The blood pressure is 121/58 and saturation is 94%. HEENT: Shows no facial swelling or erythema. There is an oral endotracheal tube in place. There is a PICC line in place. There is a radial line in place. CARDIAC: Reveals regular rate and rhythm. Normal S1, S2. There are no murmurs or rubs heard. LUNGS: Auscultation of lungs shows decreased breath sounds at the bases. There is no wheezing. ABDOMEN: Soft, nontender. There is no rebound or guarding. EXTREMITIES: Show no leg edema or calf tenderness. There is no cyanosis or clubbing. SKIN: Shows no rashes. NEUROLOGICAL: Shows the patient to be sedated. LABORATORY DATA: White blood cell count is 13.45 and hemoglobin is 7.4. The platelet count is 387. BUN to creatinine ratio is 35 to 1.04. The blood sugars are 225 to 375. Albumin is 2.2. RADIOGRAPHIC DATA: Persistent bilateral infiltrates. IMPRESSION: 1. Acute respiratory failure. 2. COVID-19 infection. 3. Sacral decubitus ulcer. 4. Moderate protein-calorie malnutrition. 5. Diabetes. 6. Deep vein thrombosis. PLAN: 1. Continue Diamox. 2. Repeat ABG. 3. Continue enteral feedings. 4. Continue Lovenox. 5. Continue sedation. 6. Case discussed with nursing staff, Respiratory, Internal Medicine, and administration. Greater than 35 minutes in direct critical care time. Severiano Crow MD [facility]/MODL /[id number]
[2020-03-14] MEDS ORDERED: ACETAZOLAMIDE SODIUM 500 MG/VIAL IV ONE (09:30)
[2020-03-14 09:52] LABS: ABG PCO2 66 mmHg (35-45); ABG PH 7.34 (7.35-7.45)
[2020-03-14 09:53] LABS: ABG HCO3 36 mmol/L (22-26)
--- NOTE | 2020-03-14 14:43 | NUR ---
PROGRESS [id number]
[2020-03-14 16:50] LABS: ABG PCO2 66 mmHg (35-45); ABG PH 7.34 (7.35-7.45)
[2020-03-14 16:51] LABS: ABG HCO3 38 mmol/L (22-26)
[2020-03-14] MEDS: VANCOMYCIN 1GM/NS 250 ML 250 ML IV SCH (18:04)
--- NOTE | 2020-03-14 18:37 | Progress Note ---
DATE: SUBJECTIVE: Mr. Love remains in Intensive Care Unit and intubated. I reviewed with the nursing team and medical team his plan of care. The patient remains on the ventilator. OBJECTIVE: VITAL SIGNS: Afebrile. HEENT: Normocephalic. NECK: Supple. CHEST: Few rhonchi. COR: S1, S2. ABDOMEN: Soft. Bowel sounds present. EXTREMITIES: No edema. LABORATORY DATA: Reviewed. IMPRESSION: 1. Acute respiratory failure. 2. Acute COVID-infection. 3. Moderate protein-calorie malnutrition. 4. Diabetes mellitus with diabetic ketoacidosis. 5. Deep vein thrombosis of right femoral vein. PLAN: 1. We will recheck the COVID-19, the patient has been positive. I am trying to see if I can get him on study for plasma treatment. [facility]. 2. He would need a trach, however, Anesthesia recommended if we can get negative PCR. 3. We will follow. MD HARVEY Alexis/MODL /[id number]
[2020-03-14] MEDS: SODIUM FERRIC GLUCONATE COMPLX 125 MG in SODIUM CHLORIDE 0.9% 100 ML 100 ML IV SCH (21:32)
[2020-03-14] MEDS: ENOXAPARIN INJ 80 MG/0.8 ML SYR SC SCH (21:32)
[2020-03-15] VITALS (25 sets, daily range): BP systolic 104–162; BP diastolic 46–83
[2020-03-15] MEDS: PROPOFOL IV EMULSION 10 MG/ML 50 ML VIAL IV SCH ×3 (00:44→19:06)
[2020-03-15] MEDS: MIDAZOLAM HCL 50 MG in SODIUM CHLORIDE 0.9% 100 ML 90 ML IV PRN ×3 (02:21→23:39)
[2020-03-15] MEDS: CEFEPIME 1GM/NS 0.9% 50 ML 50 ML IV SCH ×2 (03:23→14:59)
[2020-03-15 05:41] LABS: BASOPHILS % 0.2 % (0.0-1.0); EOSINOPHILS # (AUTO) 0.2 (0.0-0.4); EOSINOPHILS % 1.7 % (0.0-6.0); HEMATOCRIT 23.5 % (38.2-49.6); HEMOGLOBIN 7.1 g/dL (14.0-18.0); LYMPHOCYTES # (AUTO) 0.7 (1.0-3.2); LYMPHOCYTES % 7.3 % (18.0-39.1); MEAN CORPUSCULAR HEMOGLOBIN 25.2 pg (28-32); MEAN CORPUSCULAR HGB CONC 30.2 g/dL (31-35); MEAN CORPUSCULAR VOLUME 83.3 fL (81-99); MONOCYTES # (AUTO) 0.8 (0.2-0.8); MONOCYTES % 9.4 % (4.4-11.3); NEUTROPHILS # (AUTO) 7.1 (2.1-6.9); NEUTROPHILS % 80.3 % (38.7-80.0); PLATELET COUNT 424 x10e3/uL (140-360); RED BLOOD COUNT 2.82 x10e6/uL (4.3-5.7); RED CELL DISTRIBUTION WIDTH 15.4 % (11.7-14.4)
[2020-03-15 06:09] LABS: ALANINE AMINOTRANSFERASE 28 IU/L (0-55); ALBUMIN/GLOBULIN RATIO 0.4 (0.8-2.0); ALKALINE PHOSPHATASE 188 IU/L (40-150); ANION GAP 10.6 mmol/L (8-16); BLOOD UREA NITROGEN 33 mg/dL (7-26); BUN/CREATININE RATIO 34 (6-25); CALCIUM 8.7 mg/dL (8.4-10.2); CARBON DIOXIDE 36 mmol/L (22-29); CHLORIDE 99 mmol/L (98-107); CREATININE, SERUM 0.96 mg/dL (0.72-1.25); EST GLOMERULAR FILTRATION RATE > 60 ML/MIN (60-); GLUCOSE 220 mg/dL (74-118); POTASSIUM 3.6 mmol/L (3.5-5.1); SODIUM 142 mmol/L (136-145)
--- NOTE | 2020-03-15 06:15 | Diagnostic Imaging Report ---
EXAMINATION: CHEST SINGLE (PORTABLE) INDICATION: Respiratory failure COMPARISON: Chest radiograph 03/14/2020. FINDINGS: LINES/TUBES: Endotracheal tube terminates 5.2 cm above the latasha. Enteric tube projects below the diaphragm into the stomach with tip not visualized. Right PICC line terminates at the superior cavoatrial junction. EKG leads overlie the chest. LUNGS: Low lung volumes on the right. Persistent bilateral airspace opacities, right greater than left with minimal residual aeration in the right lung. PLEURA:Persistent right-sided pleural effusion. No pneumothorax. MEDIASTINUM:The cardiomediastinal silhouette appears unchanged in size and shape. BONES/SOFT TISSUES:No acute osseous injury. Remote right clavicular fracture deformity. ABDOMEN:No free air under the diaphragm. IMPRESSION: Bilateral airspace opacities, right greater than left, compatible with a combination of pneumonia and ARDS. Persistent right-sided pleural effusion. Signed by: Dr. Yariel Almeida MD on 03/15/2020 6:12 AM
[2020-03-15] MEDS: SODIUM HYPOCHLORITE 0.25% 480 ML SOLN IR SCH (08:09)
[2020-03-15] MEDS: PANTOPRAZOLE 40 MG 10ML VIAL IV SCH ×2 (08:09→16:14)
[2020-03-15] MEDS: ENOXAPARIN INJ 80 MG/0.8 ML SYR SC SCH ×2 (08:10→21:00)
[2020-03-15] MEDS: BALSAM PERU/CASTOR OIL 60 GM OINT...G. TP SCH (08:10)
[2020-03-15 10:10] LABS: ABG PCO2 63 mmHg (35-45); ABG PH 7.34 (7.35-7.45)
[2020-03-15 10:11] LABS: ABG HCO3 34 mmol/L (22-26)
[2020-03-15] MEDS: FENTANYL CITRATE INJ 2,000 MCG in SODIUM CHLORIDE 0.9% 250ML 210 ML IV PRN ×2 (11:11→19:25)
[2020-03-15] MEDS ORDERED: SODIUM CHLORIDE 0.9% 250ML 250 ML IV NR (12:30)
[2020-03-15] MEDS ORDERED: ACETAZOLAMIDE SODIUM 500 MG/VIAL IV NR (13:15)
[2020-03-15] MEDS: VANCOMYCIN 1GM/NS 250 ML 250 ML IV SCH (14:59)
[2020-03-15] MEDS: ACETAMINOPHEN 325 MG TAB PO PRN (14:59)
--- NOTE | 2020-03-15 16:06 | Progress Note ---
DATE: SUBJECTIVE: The patient is now on 75% oxygen. He is scheduled to receive packed red blood cells today. PHYSICAL EXAMINATION: VITAL SIGNS: The patient is afebrile. The blood pressure is 145/82. Saturation is 97%. He is on 75% FiO2 with 10 of PEEP. HEENT: Shows no facial swelling or erythema. CARDIAC: Reveals regular rate and rhythm with normal S1 and S2. LUNGS: Auscultation of lungs shows rhonchorous breath sounds bilaterally. There is no wheezing. ABDOMEN: Soft, nontender. There is no rebound or guarding. EXTREMITIES: Show no leg edema or calf tenderness. There is no cyanosis or clubbing. LABORATORY DATA: BUN to creatinine ratio is 33 to 0.96 and the other electrolytes are within normal limits. The glucose is 220. The white blood cell count is 8.85 and hemoglobin is 7.1. The platelet count is 424. IMPRESSION: 1. Acute respiratory failure. 2. COVID-19 infection. 3. Diabetes. 4. Sacral decubitus ulcer. 5. Deep vein thrombosis. PLAN: 1. Packed red blood cells today. 2. Diuresis. 3. Continue enteral feedings. 4. Wean FiO2 and PEEP as tolerated. Severiano Crow MD [facility]/MODL /[id number]
[2020-03-15] MEDS ORDERED: SODIUM CHLORIDE 0.9% 250ML 250 ML ONE (16:41)
--- NOTE | 2020-03-15 17:11 | Progress Note ---
DATE: 03/16/2020 CHIEF COMPLAINT/HISTORY OF PRESENT ILLNESS: This is a 35-year-old man, whose primary treating diagnosis is acute hypoxic respiratory failure secondary to ARDS/pneumonia. The patient has ARDS secondary to bilateral COVID-19 pneumonia. The patient underwent a chest x-ray today, that revealed persistent bilateral airspace opacities, right greater than left, unchanged from previous chest films. The radiologist felt that this chest x-ray findings was consistent with a combination of pneumonia and ARDS. The patient had blood work today and was found to have white blood cell count 8800 with 80% segmenters. Hemoglobin 7.1 g/dL. Platelet count is 424,000. The patient's BUN and creatinine today are 33 and 0.96 respectively. Potassium is 3.6. AST and ALT are 20 and 20 respectively. The patient had a repeat COVID-19 test done yesterday and it was negative. REVIEW OF SYSTEMS: As per HPI. PHYSICAL EXAMINATION: VITAL SIGNS: He is sedated on ventilator AC mode, FiO2 of 80%, oxygen saturation is 94%. Heart rate is 102, respiratory rate is 24, blood pressure 154/72, temperature 98.1. The patient's highest temperature in the last 24 hours was 99.0 yesterday morning. INTEGUMENT: Skin is warm and dry. He has unstageable sacral decubitus ulcer. Slight pallor. No jaundice or diaphoresis. HEENT: Anterior sclerae. He has an orogastric and endotracheal tube in place. NECK: Supple. CARDIOVASCULAR: Tachycardic rate and regular rhythm. LUNGS: The patient continues to have crackles and rhonchi in the right lung field with diminished breath sounds on the left. ABDOMEN: Soft. EXTREMITIES: No edema or deformity. NEUROLOGIC: Intact. He is sedated on a ventilator. DIAGNOSES: 1. Acute hypoxic respiratory failure secondary to acute respiratory distress syndrome. 2. Acute respiratory distress syndrome secondary to bilateral coronavirus disease 2019 pneumonia. 3. Bilateral bacterial pneumonia, likely gram-negative cristhian. 4. Ventilator dependence. 5. Type 2 diabetes mellitus, uncontrolled. 6. Acute right lower extremity deep venous thrombosis. 7. Anemia secondary to chronic disease and gastrointestinal losses. 8. Unstageable sacral decubitus ulcer. PLAN: 1. Continue wound care to the patient's sacral ulcer. 2. Continue attempts in weaning the patient's FiO2. 3. Continue intravenous antibiotics for the patient's presumed gram-negative cristhian pneumonia. 4. Nutritional support. 5. Continue enoxaparin twice a day for the patient's right lower extremity deep venous thrombosis. I spent 25 minutes in the care of this intensive care unit patient. MD OLVIN Blackburn/FREDY /[id number] MTDD
--- NOTE | 2020-03-15 18:27 | Progress Note ---
DATE: SUBJECTIVE: Mr. Love remains in Intensive Care Unit and intubated. OBJECTIVE: VITAL SIGNS: His vitals are stable, no fever. HEENT: Normocephalic. CHEST: Few crackles bilateral. HEART: S1, S2. ABDOMEN: Soft. Bowel sounds present. EXTREMITIES: No edema. IMPRESSION: 1. Respiratory failure. 2. Acute respiratory distress syndrome. 3. COVID-19 still positive. We will proceed with tracheostomy. We will discuss with the medical team. 4. Anemia. 5. Deep venous thrombosis of the femoral vein on anticoagulation. 6. Acute on chronic kidney disease from diabetes mellitus. PLAN: Continue with the same. We will follow. MD HARVEY Alexis/FREDY /[id number]
[2020-03-15] MEDS: SODIUM FERRIC GLUCONATE COMPLX 125 MG in SODIUM CHLORIDE 0.9% 100 ML 100 ML IV SCH (21:00)
[2020-03-16] VITALS (26 sets, daily range): BP systolic 101–170; BP diastolic 50–82
[2020-03-16] MEDS: ACETAMINOPHEN 325 MG TAB PO PRN (01:31)
[2020-03-16] MEDS: MIDAZOLAM HCL 50 MG in SODIUM CHLORIDE 0.9% 100 ML 90 ML IV PRN ×4 (04:11→20:00)
[2020-03-16] MEDS: CEFEPIME 1GM/NS 0.9% 50 ML 50 ML IV SCH ×2 (04:11→14:26)
[2020-03-16] MEDS: FENTANYL CITRATE INJ 2,000 MCG in SODIUM CHLORIDE 0.9% 250ML 210 ML IV PRN ×2 (04:11→17:56)
[2020-03-16 04:45] LABS: BASOPHILS % 0.1 % (0.0-1.0); EOSINOPHILS # (AUTO) 0.1 (0.0-0.4); HEMATOCRIT 26.2 % (38.2-49.6); HEMOGLOBIN 8.1 g/dL (14.0-18.0); LYMPHOCYTES # (AUTO) 0.6 (1.0-3.2); MEAN CORPUSCULAR HEMOGLOBIN 25.6 pg (28-32); MEAN CORPUSCULAR HGB CONC 30.9 g/dL (31-35); MEAN CORPUSCULAR VOLUME 82.6 fL (81-99); MONOCYTES % 9.6 % (4.4-11.3); NEUTROPHILS # (AUTO) 8.7 (2.1-6.9); NEUTROPHILS % 82.2 % (38.7-80.0); PLATELET COUNT 495 x10e3/uL (140-360); RED BLOOD COUNT 3.17 x10e6/uL (4.3-5.7); RED CELL DISTRIBUTION WIDTH 15.5 % (11.7-14.4)
[2020-03-16] MEDS: PROPOFOL IV EMULSION 10 MG/ML 50 ML VIAL IV SCH ×3 (05:00→19:45)
[2020-03-16 05:04] LABS: ALANINE AMINOTRANSFERASE 27 IU/L (0-55); ALBUMIN 2.1 g/dL (3.5-5.0); ALBUMIN/GLOBULIN RATIO 0.4 (0.8-2.0); ALKALINE PHOSPHATASE 210 IU/L (40-150); ANION GAP 9.8 mmol/L (8-16); CALCIUM 8.8 mg/dL (8.4-10.2); CARBON DIOXIDE 34 mmol/L (22-29); CHLORIDE 102 mmol/L (98-107); CREATININE, SERUM 0.91 mg/dL (0.72-1.25); EST GLOMERULAR FILTRATION RATE > 60 ML/MIN (60-); GLUCOSE 204 mg/dL (74-118); POTASSIUM 3.8 mmol/L (3.5-5.1); SODIUM 142 mmol/L (136-145)
[2020-03-16 05:17] LABS: BLOOD UREA NITROGEN 29 mg/dL (7-26); BUN/CREATININE RATIO 32 (6-25)
[2020-03-16] MEDS ORDERED: SODIUM CHLORIDE 0.9% 1000ML 1,000 ML ONE (06:39)
--- NOTE | 2020-03-16 07:05 | Diagnostic Imaging Report ---
EXAMINATION: CHEST SINGLE (PORTABLE) INDICATION: Respiratory failure COMPARISON: Chest radiograph 03/15/2020. FINDINGS: LINES/TUBES: Endotracheal tube terminates in the midtrachea. Enteric tube courses into the stomach, the tip is not seen. The right PICC appears to have been partially retracted, likely terminating in the right brachiocephalic vein, although the tip is obscured. LUNGS: Low lung volumes on the right. Persistent bilateral airspace opacities, right greater than left. Slightly increased aeration in the right lung. PLEURA:Persistent right-sided pleural effusion. No pneumothorax. MEDIASTINUM:The cardiomediastinal silhouette appears unchanged in size and shape. BONES/SOFT TISSUES:No acute osseous injury. Remote right clavicular fracture deformity. ABDOMEN:No free air under the diaphragm. IMPRESSION: Right PICC appears to have been partially retracted, likely terminating in the right brachiocephalic vein, although the tip is obscured. Bilateral airspace opacities, right greater than left, compatible with a combination of pneumonia and ARDS. Slightly increased aeration in the right lung. Persistent right-sided pleural effusion. Signed by: Dr. Yariel Almeida MD on 03/16/2020 7:02 AM
[2020-03-16] MEDS: SODIUM HYPOCHLORITE 0.25% 480 ML SOLN IR SCH (08:11)
[2020-03-16] MEDS: ENOXAPARIN INJ 80 MG/0.8 ML SYR SC SCH ×2 (08:11→21:45)
[2020-03-16] MEDS: PANTOPRAZOLE 40 MG 10ML VIAL IV SCH ×2 (08:11→16:34)
[2020-03-16] MEDS: BALSAM PERU/CASTOR OIL 60 GM OINT...G. TP SCH (08:11)
--- NOTE | 2020-03-16 09:48 | Progress Note ---
DATE: 03/16/2020 CHIEF COMPLAINT/HISTORY OF PRESENT ILLNESS: This is a 35-year-old man whose primary treating diagnosis is acute hypoxic respiratory failure secondary to ARDS from bilateral COVID-19 pneumonia. The patient's clinical condition is stable. He is on ventilator, AC mode with FiO2 of 60%. The patient has been afebrile for over 48 hours. Highest temperature is 99.4 and now it is at 2 o'clock this morning. Blood work today revealed white blood cell count 10,500 with 82% segmented neutrophils, hemoglobin of 8.1 g/dL. The patient's BUN and creatinine 29 and 0.91 respectively. Potassium is 3.8. Sodium 142. The patient underwent a chest film today that revealed bilateral airspace opacities, right greater than left, unchanged from previous chest film. However, the radiologist noted increased aeration in the right lung. The radiologist feels that these findings were consistent with a combination of pneumonia and ARDS. He still has persistent right-sided perfusion that is too small to drain according to the radiologist. REVIEW OF SYSTEMS: As per HPI. PHYSICAL EXAMINATION: GENERAL: He is sedated on ventilator, AC mode, FiO2 of 60%, oxygen saturation 95%, heart rate is 100, respiratory rate 22, blood pressure 140/74, BMI 30. INTEGUMENT: Skin is warm and dry. Slight pallor. The patient has 4 x 4 unstageable sacral decubitus wound that has granulation tissue in the periphery, seems to be improving somewhat, and is not enlarging. No jaundice or diaphoresis appreciated. HEENT: Anicteric flare. The patient has orogastric and endotracheal tube in place. NECK: Supple. CARDIOVASCULAR: Tachycardic rate, regular rhythm. LUNGS: The patient continues to have rhonchi in the right lung. Diminished breath sounds in the left lung. ABDOMEN: Soft. He has bowel sounds. EXTREMITIES: No edema or deformity. NEUROLOGIC: No gross deficits. He is sedated on a ventilator as previously stated. DIAGNOSES: 1. Acute hypoxic respiratory failure secondary to acute respiratory distress syndrome from bilateral COVID-19 pneumonia. 2. Bilateral bacterial pneumonia, likely gram-negative cristhian. 3. Ventilator dependent. 4. Type 2 diabetes mellitus. 5. Acute right lower extremity deep venous thrombosis. 6. Anemia secondary to chronic disease and likely gastrointestinal losses. 7. Unstageable sacral decubitus ulcer. PLAN: 1. Continue wound care to the patient's sacral ulcer. 2. Monitor the patient's oxygen level. 3. Continue aggressive oxygenation via ventilator. 4. Nutritional support. 5. Blood glucose control. 6. Supportive care. 7. Continue intravenous antibiotics for presumed gram-negative cristhian pneumonia. 8. Infectious Disease specialist is contemplating the idea of convalescent plasma therapy for this patient. I spent 30 minutes in care of this intensive care unit patient. MD OLVIN Blackburn/FREDY /[id number]
[2020-03-16 10:57] LABS: ABG PCO2 65 mmHg (35-45); ABG PH 7.34 (7.35-7.45)
[2020-03-16 10:58] LABS: ABG HCO3 35 mmol/L (22-26)
--- NOTE | 2020-03-16 11:31 | Diagnostic Imaging Report ---
EXAMINATION: CHEST XRAY LINE PLACEMENT INDICATION: Line placement COMPARISON: Multiple prior chest radiographs most recently of 03/16/2020 FINDINGS: LINES/TUBES:Interval placement of left PICC line which terminates in the superior vena cava. Right PICC line terminates in the right innominate vein. Endotracheal tube terminates 4 cm above the latasha. Enteric tube projects below the diaphragm with tip not visualized. EKG leads overlie the chest. LUNGS:Unchanged bilateral right greater than left interstitial and airspace opacities. PLEURA:Unchanged right pleural effusion. MEDIASTINUM:The cardiomediastinal silhouette appears unchanged in size and shape. BONES/SOFT TISSUES:No acute osseous injury. ABDOMEN:No free air under the diaphragm. IMPRESSION: New left PICC line terminates in the superior vena cava. Other lines and tubes unchanged. Unchanged bilateral pulmonary opacities consistent with known atypical pneumonia. Signed by: Humberto Lopez MD on 03/16/2020 11:28 AM
[2020-03-16] MEDS ORDERED: FUROSEMIDE INJ 10 MG/ML 4 ML VIAL IV ONE (12:55)
[2020-03-16] MEDS ORDERED: LACTULOSE SYRUP 20 GM/30 ML UDC PO ONE (13:20)
--- NOTE | 2020-03-16 13:20 | Progress Note ---
DATE: SUBJECTIVE: The patient is now on 50% oxygen with 10 of PEEP. He is saturating 92%. His PICC line was changed this morning. He received 1 unit of packed red blood cells yesterday. PHYSICAL EXAMINATION: VITAL SIGNS: The patient is afebrile. The blood pressure is 133/62 and saturation is 92%. He is on a PRVC at a rate of 24 with a tidal volume of 390 and a PEEP of 10. HEENT: Shows no facial swelling or erythema. The oropharynx is normal. LYMPHATIC: Shows no submandibular, cervical, or supraclavicular adenopathy. CARDIAC: Reveals regular rate and rhythm with normal S1 and S2. LUNGS: Auscultation of lungs reveals decreased breath sounds at the bases. There is no wheezing. ABDOMEN: Soft and nontender. There is no rebound or guarding. EXTREMITIES: Shows no leg edema or calf tenderness. There is no cyanosis or clubbing. SKIN: Shows no rashes. LABORATORY DATA: BUN to creatinine ratio is 29 to 0.9. Other electrolytes are within normal limits. The glucose is 200. Albumin is 2.1. RADIOGRAPHIC DATA: Chest x-ray shows new left PICC line. There are persistent bilateral infiltrates. IMPRESSION: 1. Acute respiratory failure. 2. COVID-19 infection. 3. Sacral decubitus ulcer. 4. Deep vein thrombosis. 5. Diabetes. 6. Anemia secondary to chronic blood loss. PLAN: 1. Continue to wean PEEP and FiO2 as tolerated. The patient continues to improve, we will repeat the spontaneous breathing trial. 2. The patient is being evaluated for tracheostomy. 3. Continue enteral feedings. 4. Additional diuretics today. 5. Complete current antibiotics. 6. Continue to monitor blood counts. 7. Wound care. Severiano Crow MD [facility]/MODL /[id number]
[2020-03-16] MEDS: VANCOMYCIN 1GM/NS 250 ML 250 ML IV SCH (15:02)
--- NOTE | 2020-03-16 16:05 | Progress Note ---
DATE: SUBJECTIVE: Mr. Love remains in intensive care unit, intubated, slowly getting better. Discussed with the medical team. The patient can proceed with trach. He remains positive for COVID-19 unfortunately. REVIEW OF SYSTEMS: Could not be obtained. PHYSICAL EXAMINATION: VITAL SIGNS: Stable, afebrile. HEENT: He is not icteric. NECK: Supple. CHEST: Few crackles. COR: S1 and S2. No S3, S4, or murmurs. ABDOMEN: Soft. LABORATORY DATA: His albumin is 2.1 and glucose 200. IMPRESSION: 1. Acute respiratory failure, acute respiratory distress syndrome. 2. COVID-19 infection. 3. Decubitus ulcer. 4. Deep venous thrombosis. 5. Diabetes mellitus. 6. The patient remains positive, but can proceed with tracheostomy. We are going to wait few more days and retest him again. Discussed with the medical team. MD HARVEY Alexis/[facility] /[id number]
[2020-03-17] VITALS (25 sets, daily range): BP systolic 101–153; BP diastolic 54–86
[2020-03-17] MEDS: PROPOFOL IV EMULSION 10 MG/ML 50 ML VIAL IV SCH ×7 (00:19→20:00)
[2020-03-17] MEDS: FENTANYL CITRATE INJ 2,000 MCG in SODIUM CHLORIDE 0.9% 250ML 210 ML IV PRN ×2 (01:20→08:30)
[2020-03-17] MEDS: CEFEPIME 1GM/NS 0.9% 50 ML 50 ML IV SCH ×2 (03:33→15:00)
[2020-03-17] MEDS: MIDAZOLAM HCL 50 MG in SODIUM CHLORIDE 0.9% 100 ML 90 ML IV PRN ×3 (04:36→15:30)
[2020-03-17 05:41] LABS: BASOPHILS % 0.1 % (0.0-1.0); EOSINOPHILS # (AUTO) 0.1 (0.0-0.4); EOSINOPHILS % 1.4 % (0.0-6.0); HEMATOCRIT 25.9 % (38.2-49.6); LYMPHOCYTES # (AUTO) 0.6 (1.0-3.2); LYMPHOCYTES % 6.3 % (18.0-39.1); MEAN CORPUSCULAR HEMOGLOBIN 25.6 pg (28-32); MEAN CORPUSCULAR HGB CONC 30.9 g/dL (31-35); MONOCYTES # (AUTO) 0.9 (0.2-0.8); MONOCYTES % 8.6 % (4.4-11.3); NEUTROPHILS # (AUTO) 8.1 (2.1-6.9); NEUTROPHILS % 82.7 % (38.7-80.0); PLATELET COUNT 528 x10e3/uL (140-360); RED BLOOD COUNT 3.12 x10e6/uL (4.3-5.7); RED CELL DISTRIBUTION WIDTH 15.9 % (11.7-14.4)
[2020-03-17 06:03] LABS: ALANINE AMINOTRANSFERASE 23 IU/L (0-55); ALBUMIN/GLOBULIN RATIO 0.4 (0.8-2.0); ALKALINE PHOSPHATASE 178 IU/L (40-150); ANION GAP 10.8 mmol/L (8-16); BLOOD UREA NITROGEN 26 mg/dL (7-26); BUN/CREATININE RATIO 30 (6-25); CALCIUM 8.9 mg/dL (8.4-10.2); CARBON DIOXIDE 32 mmol/L (22-29); CHLORIDE 105 mmol/L (98-107); CREATININE, SERUM 0.86 mg/dL (0.72-1.25); EST GLOMERULAR FILTRATION RATE > 60 ML/MIN (60-); GLUCOSE 200 mg/dL (74-118); POTASSIUM 3.8 mmol/L (3.5-5.1); SODIUM 144 mmol/L (136-145)
--- NOTE | 2020-03-17 06:52 | Diagnostic Imaging Report ---
EXAMINATION: CHEST SINGLE (PORTABLE) INDICATION: Respiratory failure. COMPARISON: Chest radiograph 03/16/2020. FINDINGS: LINES/TUBES: A left PICC line terminates in the superior vena cava. Interval removal of right PICC. Endotracheal tube terminates 4.3 cm above the latasha. Enteric tube projects below the diaphragm with tip not visualized. EKG leads overlie the chest. LUNGS: Unchanged bilateral right greater than left interstitial and airspace opacities. PLEURA:Unchanged right pleural effusion. No pneumothorax. MEDIASTINUM:The cardiomediastinal silhouette appears unchanged. BONES/SOFT TISSUES:No acute osseous injury. ABDOMEN:No free air under the diaphragm. IMPRESSION: Lines and tubes as above. Interval removal of right PICC. Unchanged bilateral pulmonary opacities consistent with known atypical pneumonia. Signed by: Dr. Yariel Almeida MD on 03/17/2020 6:48 AM
--- NOTE | 2020-03-17 07:00 | NUR ---
Report received from DARRON Jesus.
[2020-03-17] MEDS: BALSAM PERU/CASTOR OIL 60 GM OINT...G. TP SCH (08:30)
[2020-03-17] MEDS: PANTOPRAZOLE 40 MG 10ML VIAL IV SCH ×2 (08:30→16:41)
[2020-03-17] MEDS ORDERED: FUROSEMIDE INJ 10 MG/ML 4 ML VIAL IV ONE (09:10)
[2020-03-17 09:16] LABS: ABG PO2 65 mmHg (80-90)
[2020-03-17 09:25] LABS: ABG PO2 74 mmHg (80-90)
--- NOTE | 2020-03-17 09:27 | Progress Note ---
DATE: 03/17/2020 CHIEF COMPLAINT/HISTORY OF PRESENT ILLNESS: This is a 35-year-old man. His primary treating diagnosis is acute hypoxic respiratory failure secondary to ARDS from bilateral COVID-19 pneumonia. The patient is improving clinically. Today, his FiO2 is 45%. He has oxygen saturation of 96% on this setting. He has a PEEP of 8. He is still on AC mode though. White blood cell count today is 9800 with 82% segmenters. Hemoglobin is 8 g/dL and platelet count is 528,000. Today's BUN and creatinine are 26 and 0.86 respectively. Potassium is 3.8, sodium is 144. Chest film performed today reveals persistent bilateral pulmonary opacities. REVIEW OF SYSTEMS: As per HPI. PHYSICAL EXAMINATION: GENERAL: He is sedated on a ventilator AC mode, PEEP of 8, FiO2 is 45%, oxygen saturation 96%. His temperature is 98.9, highest temperature in the last 24 hours with 99.2 and it was at 3 o'clock this morning. Blood pressure is 152/86, pulse is 98, respiratory rate is 26. INTEGUMENT: Skin is warm and dry. Slight pallor. No jaundice, or diaphoresis. The patient has a 4 x 4 cm sacral decubitus ulcer, that has a granulation tissue in the periphery, seems to be improving. HEENT: Anicteric sclera. He has orogastric and endotracheal tube in place. NECK: Supple. CARDIOVASCULAR: Tachycardic rate and regular rhythm. LUNGS: The patient has rhonchi and crackles in the bilateral lungs, worse in the bases. ABDOMEN: Soft. He has bowel sounds. EXTREMITIES: No edema or deformity. NEUROLOGIC: He is sedated on the ventilator. DIAGNOSES: 1. Acute hypoxic respiratory failure secondary to acute respiratory distress syndrome from bilateral coronavirus disease 2019 pneumonia. 2. Bilateral bacterial pneumonia, likely gram-negative cristhian. 3. Ventilator dependent. 4. Type 2 diabetes mellitus. 5. Acute right lower extremity deep venous thrombosis. 6. Anemia secondary to chronic disease and likely gastrointestinal losses. 7. Unstageable sacral decubitus ulcer. PLAN: 1. Continue intravenous pantoprazole for the patient's likely mild gastrointestinal bleeding. 2. Continue enoxaparin 80 mg subcutaneous twice a day for his acute right lower leg deep venous thrombosis. 3. Continue intravenous cefepime and vancomycin for his presumed gram-negative cristhian pneumonia. 4. Continue ventilator support for his ARDS. 5. Continue to wean FiO2. 6. Continue his glucose control with intravenous insulin. 7. Continue wound care to the patient's sacral decubitus ulcer. I spent 25 minutes in the care of this intensive care unit patient. MD OLVIN Blackburn/FREDY /[id number] SHERIF
[2020-03-17] MEDS: ENOXAPARIN INJ 80 MG/0.8 ML SYR SC SCH ×2 (09:28→21:29)
[2020-03-17 09:29] LABS: ABG PO2 90 mmHg (80-90)
[2020-03-17] MEDS: SODIUM HYPOCHLORITE 0.25% 480 ML SOLN IR SCH (09:32)
[2020-03-17 09:34] LABS: ABG PO2 68 mmHg (80-90)
[2020-03-17 10:13] LABS: ABG PCO2 55 mmHg (35-45)
[2020-03-17 10:14] LABS: ABG HCO3 32 mmol/L (22-26)
[2020-03-17 10:42] LABS: ABG PO2 56 mmHg (80-90)
[2020-03-17 10:46] LABS: ABG PO2 76 mmHg (80-90)
[2020-03-17 10:51] LABS: ABG PO2 70 mmHg (80-105)
[2020-03-17] MEDS ORDERED: FENTANYL 2,000 MCG/250 ML BAG IV SCH (11:00)
[2020-03-17 11:01] LABS: ABG PO2 78 mmHg (80-105)
[2020-03-17 11:03] LABS: ABG PO2 104 mmHg (80-105)
[2020-03-17 11:05] LABS: ABG PO2 81 mmHg (80-105)
[2020-03-17 11:07] LABS: ABG PO2 54 mmHg (80-105)
[2020-03-17 11:09] LABS: ABG PO2 91 mmHg (80-105)
[2020-03-17 11:15] LABS: ABG PO2 91 mmHg (80-105)
[2020-03-17] MEDS: FENTANYL 2,000 MCG/250 ML BAG IV SCH ×2 (11:15→15:30)
[2020-03-17 11:17] LABS: ABG PO2 83 mmHg (80-105)
[2020-03-17 11:18] LABS: ABG PO2 84 mmHg (80-105)
[2020-03-17 11:44] LABS: ABG PO2 80 mmHg (80-105)
[2020-03-17] MEDS ORDERED: MIDAZOLAM HCL 5MG/ML 10ML VIAL 100 ML IV PRN (12:00)
--- NOTE | 2020-03-17 12:12 | NUR ---
Sedation vacation for 15 min completed. Patient wakes up easily when off sedation, opens his eyes, and follows simple commands. He does appear anxious and agitated when awake. He was reoriented and the sedation was restarted.
--- NOTE | 2020-03-17 15:14 | Diagnostic Imaging Report ---
EXAMINATION: CHEST SINGLE (PORTABLE) INDICATION: Hypoxia COMPARISON: Multiple prior chest radiographs most recently of 03/17/2020 FINDINGS: LINES/TUBES:Endotracheal tube terminates 4 cm above the latasha. Left PICC line unchanged. Enteric tube unchanged. EKG leads overlie the chest. LUNGS:The lung volumes are low. Slight interval worsening in bilateral right greater than left airspace opacities. PLEURA:Unchanged right pleural effusion. No pneumothorax. MEDIASTINUM:The cardiomediastinal silhouette appears unchanged in size and shape. BONES/SOFT TISSUES:No acute osseous injury. ABDOMEN:No free air under the diaphragm. IMPRESSION: Slight interval worsening in bilateral right greater than left airspace opacities. Signed by: Humberto Lopez MD on 03/17/2020 3:11 PM
[2020-03-17] MEDS: VANCOMYCIN 1GM/NS 250 ML 250 ML IV SCH (15:30)
--- NOTE | 2020-03-17 16:06 | NUR ---
Patient had an episode at about 1415 where he started to desaturate after being repositioned. He was unable to keep O2 saturations over 85%. Respiratory therapist called to bedside. Patient was suctioned per RT and repositioned again. Placed on 100 % FiO2, Peep of 8. Patient was bagged to increase o2 saturation and then placed back on ventilator. On 100 % he was saturating 99%. Slowly weaned back to old settings. CXR performed. Dr. Crow informed of incident. He ordered Diamox 205 mg i.v. to be given and to increase FiO2 to 50%.
[2020-03-17] MEDS ORDERED: MIDAZOLAM HCL 5MG/ML 10ML VIAL 100 ML BAG IV SCH ×2 (16:15→16:30)
[2020-03-17] MEDS ORDERED: ACETAZOLAMIDE SODIUM 500 MG/VIAL IV SCH (16:15)
--- NOTE | 2020-03-17 16:19 | Progress Note ---
DATE: SUBJECTIVE: The patient was switched to 45% and 8 of PEEP. His respiratory rate is still set at 22, but he is breathing 26 times a minute. He remains on fentanyl . PHYSICAL EXAMINATION: VITAL SIGNS: O2 saturation is 92% on 45%. The pulse is 104 and blood pressure is 147/72. HEENT: Shows no facial swelling or erythema. CARDIAC: Reveals regular rate and rhythm. Normal S1, S2. LUNGS: Auscultation of lungs reveals rhonchorous breath sounds bilaterally. There is no wheezing. ABDOMEN: Soft, nontender. There is no rebound or guarding. EXTREMITIES: Show no leg edema or calf tenderness. There is no cyanosis or clubbing. SKIN: Shows no rashes. NEUROLOGICAL: Shows no focal abnormalities. LABORATORY DATA: BUN to creatinine ratio is 26 to 0.86. Other electrolytes are within normal limits. The blood sugar is 215. Albumin is 2.5. White blood cell count is 9.8, hemoglobin is 8. The platelet count is . IMPRESSION: 1. Acute respiratory failure. 2. COVID-19 infection. 3. Sacral decubitus wound. 4. Acute kidney injury. 5. Anemia, unspecified. 6. Diabetes. 7. Deep vein thrombosis. PLAN: 1. Wean sedatives as tolerated. 2. Additional diuretics today. 3. Consider spontaneous breathing trial tomorrow. 4. Continue enteral feedings. 5. Continue insulin. 6. Complete current antibiotics. 7. Case discussed with nursing staff, Internal Medicine, General surgery, and Infectious Disease. Severiano Crow MD [facility]/MODL /[id number]
[2020-03-17] MEDS ORDERED: MIDAZOLAM HCL 50 MG in SODIUM CHLORIDE 0.9% 100 ML 90 ML IV PRN (16:30)
--- NOTE | 2020-03-17 17:16 | NUR ---
Nutrition Intervention Note RD Recommendation(s) for Physician: -Recommend modifying tube feed formula to Vital High Protein @ goal rate of 60 ml/hr while on propofol (1440 kcal, 126 g protein, and 1204 mL water/fluid. Propofol provides an additional 575 kcal. - Water flushes per MD. Plan of Care: RD following, monitoring for tolerance and adequacy. TF recs. Nutrition reason for involvement: follow up RD Assessment 03/17: Follow up. Pt remains intubated and is sedated on propofol @ 21.8 mL/hr which provides 575 kcal. Pt is tolerating tube feeding and is receiving Nepro @ 40 mL/hr. Recommend modifying formula to Vital High Protein. Informed RN of recommendation. Will continue to monitor. 03/13: Follow up. Pt remains intubated and sedated, off Propofol and continues on Fentanyl drip. Pt continues on TF of Nepro at 40 ml/hr, no dialysis initiated and renal trend improving. TF meeting current estimated needs. Current rec's remain appropriate. Chart reviewed. Will continue to monitor. 03/08: Follow up. Pt remains intubated and sedated on Propofol and Fentanyl drips. No pressor support. Pt on TF of Nepro at 40 ml/hr. Renal trend noted, no dialysis currently. TF meeting estimated kcal and protein needs per current renal trend. TF rec's provided pending dialysis initiation and continued Propofol use. Chart reviewed. Will continue to monitor. 03/03: Follow up. Pt remains mechanically ventilated. Pt is receiving Glucerna 1.2 @ 40 ml/hr per chart. Pt is receiving 26.7 mL/hr of propofol which provides 705 kcal. Recommend modifying formula to Vital High Protein. Will continue to monitor. 02/28: Follow up. Pt remains intubated, sedated with Propofol and fentanyl drip. Pt not currently on pressors. TF currently off per am documentation, previously infusing at 20 ml/hr on 02/27 and 02/26- not meeting needs. Pt with increased water flushes per MD 2/2 hypernatremia. Chart reviewed. TF rec's relayed to RN. Will continue to monitor. 02/24: Follow up. Pt remains mechanically ventilated. Per RN, pt is tolerating tube feeding of Glucerna 1.2 @ 40 mL/hr. Recommend modifying formula to Vital High Protein. RD recommendation provided to nurse. Will continue to monitor. 02/20: 35 YOM admitted for hypoxemia, hyperglycemia with PMH listed below. Physical visit was deferred d/t hospitals infection disease policy. Pt is intubated on fentanyl and propofol. Pt is not on pressors as of now. The nurse reported the pt was ordered pressors over the weekend but has not needed it today. Nurse reported possible ARDS, they have not had to place the pt in the prone position yet. Pt was ordered Glucerna 1.2 at 20 ml/hr advance to goal rate of 60 ml/hr with 100 ml of water every 4 hours (1728 kcal, 86gram protein) . RD recommendations provided above and given to nurse. Unaware of propofol rate d/t not being able to enter the room and nurse not knowing at current time. Nurse reported the pt is currently on 20 ml/hr of Glucerna 1.2. Will continue to monitor. Principal Problems/Diagnoses: hypoxemia, hyperglycemia PMH: Uncontrolled type 2 diabetes mellitus. GI: last recorded BM 03/17 Skin: unstagable sacral PU Labs: 03/17: Na 144, K 3.8, BUN 26, Cr 0.86. Glu 200 03/13: Na 141, K 3.6, BUN 39, Cr 1.13, Gluc 245, POC Gluc 261-286 03/08: Na 142, K 4.4, BUN 54, Cr 1.42, Gluc 323, POC Gluc 316-336 Meds: propofol, lovenox, protonix, vanocmycin, insulin, fentanyl Ht: 71 in Wt: 220 lbs (03/17) 212 lbs (02/27) 215 lbs (02/23) 213 lb (02/20) BMI: 30.7 kg/m^2 IBW: 172 lbs Malnutrition Evaluation (03/08) -unable to perform nutrition assessment, isolation precautions for COVID-19 Nutrition Prescription (Diet Order): TF of Nepro at 40 ml/hr (1728 kcal and 78 gm protein) Estimated Nutritional Needs: Calories: 2475-0763 kcal/day (20- 25 kcal/kg/day) Weight used : IBW (78 kg) Protein : 94 156 g protein/day (1.2-2 gram/kg/day ) Weight used: IBW (78 kg) Diet Adequacy: meeting calorie needs, meeting >75% protein needs Diet Education Needs Assessment: Diet education not indicated, patient on temporary/transition diet. Nutrition Care Level: moderate Nutrition Diagnosis: Inadequate energy intake related to medical condition as evidenced by the pt needing mechanical ventilation and need for TF to meet energy and protein needs. Goal: Patient will meet 75-100% of estimated needs by follow up Progress: progressing Interventions: -TF (Composition, Rate, Route),Recommended Modifications, Collaboration with other providers Monitoring/Evaluation: -Total energy intake, Total protein intake, Formula/Solution Signed: Hazel Alonzo RD, MEET
--- NOTE | 2020-03-17 17:38 | Progress Note ---
DATE: SUBJECTIVE: Mr. Love remains in intensive care unit. He is clearly and slowly getting better. Discussed with surgery, tracheostomy could be done under protective and a gram negative pressure. His FiO2 is 45. His oxygenation is 96. His PEEP of 8. REVIEW OF SYSTEMS: Could not be obtained. PHYSICAL EXAMINATION: GENERAL: He is intubated, sedated. VITAL SIGNS: Stable. HEENT: Not icteric. NECK: Supple. CHEST: Crackles. COR: S1, S2. No murmur. ABDOMEN: Soft. IMPRESSION: 1. COVID-19 infection. 2. Acute respiratory failure. 3. Acute respiratory distress syndrome. 4. Deep venous thrombosis. 5. Aspiration pneumonia, resolved. From Infectious Disease point of view, patient is stable. Continue with droplet isolation. Last time I checked him at , we will order another COVID-19. We will get tracheal suction and send it for COVID-19. MD HARVEY Alexis/FREDY /[id number]
[2020-03-17] MEDS: MIDAZOLAM HCL 5MG/ML 10ML VIAL 100 ML BAG IV PRN (23:30)
[2020-03-18] VITALS (24 sets, daily range): BP systolic 83–172; BP diastolic 47–99
[2020-03-18] MEDS: FENTANYL 2,000 MCG/250 ML BAG IV SCH ×3 (01:11→22:42)
--- NOTE | 2020-03-18 02:12 | NUR ---
SEDATION DECREASED-PT TOLERATING WELL. VERSED @ 6 MCG & FENTANYL @ [address] CABRAL @ BEDSIDE, STATES TO CONTINUE WILL SPONTANEOUS BREATHING TRIAL IN AM. WILL CONTINUE TO TITRATE SEDATION TOLERATED.
[2020-03-18] MEDS: PROPOFOL IV EMULSION 10 MG/ML 50 ML VIAL IV SCH ×2 (02:39→20:15)
[2020-03-18] MEDS: CEFEPIME 1GM/NS 0.9% 50 ML 50 ML IV SCH ×2 (03:31→16:18)
[2020-03-18 06:13] LABS: BASOPHILS % 0.3 % (0.0-1.0); EOSINOPHILS # (AUTO) 0.2 (0.0-0.4); HEMATOCRIT 25.5 % (38.2-49.6); HEMOGLOBIN 7.8 g/dL (14.0-18.0); LYMPHOCYTES # (AUTO) 0.6 (1.0-3.2); LYMPHOCYTES % 7.9 % (18.0-39.1); MEAN CORPUSCULAR HEMOGLOBIN 25.2 pg (28-32); MEAN CORPUSCULAR HGB CONC 30.6 g/dL (31-35); MEAN CORPUSCULAR VOLUME 82.5 fL (81-99); MONOCYTES # (AUTO) 0.9 (0.2-0.8); MONOCYTES % 11.3 % (4.4-11.3); NEUTROPHILS # (AUTO) 6.1 (2.1-6.9); NEUTROPHILS % 77.6 % (38.7-80.0); PLATELET COUNT 509 x10e3/uL (140-360); RED BLOOD COUNT 3.09 x10e6/uL (4.3-5.7); RED CELL DISTRIBUTION WIDTH 15.9 % (11.7-14.4)
[2020-03-18 06:34] LABS: ALANINE AMINOTRANSFERASE 23 IU/L (0-55); ALBUMIN 1.9 g/dL (3.5-5.0); ALBUMIN/GLOBULIN RATIO 0.4 (0.8-2.0); ALKALINE PHOSPHATASE 155 IU/L (40-150); ANION GAP 9.6 mmol/L (8-16); BLOOD UREA NITROGEN 25 mg/dL (7-26); BUN/CREATININE RATIO 29 (6-25); CALCIUM 8.7 mg/dL (8.4-10.2); CARBON DIOXIDE 32 mmol/L (22-29); CHLORIDE 105 mmol/L (98-107); CREATININE, SERUM 0.85 mg/dL (0.72-1.25); EST GLOMERULAR FILTRATION RATE > 60 ML/MIN (60-); GLUCOSE 184 mg/dL (74-118); POTASSIUM 3.6 mmol/L (3.5-5.1); SODIUM 143 mmol/L (136-145)
[2020-03-18] MEDS: MIDAZOLAM HCL 5MG/ML 10ML VIAL 100 ML BAG IV PRN ×2 (06:58→16:00)
[2020-03-18] MEDS: LABETALOL HCL 5 MG/ML 20ML VIAL IV PRN (08:14)
[2020-03-18] MEDS: SODIUM HYPOCHLORITE 0.25% 480 ML SOLN IR SCH (08:39)
[2020-03-18] MEDS: PANTOPRAZOLE 40 MG 10ML VIAL IV SCH ×2 (08:39→16:18)
[2020-03-18] MEDS: ENOXAPARIN INJ 80 MG/0.8 ML SYR SC SCH ×2 (08:39→21:23)
[2020-03-18] MEDS: BALSAM PERU/CASTOR OIL 60 GM OINT...G. TP SCH (08:39)
[2020-03-18] MEDS ORDERED: FUROSEMIDE INJ 10 MG/ML 4 ML VIAL IV ONE (09:00)
[2020-03-18] MEDS ORDERED: POTASSIUM CHLORIDE 10MEQ EA NG ONE (09:00)
[2020-03-18] MEDS ORDERED: DEXMEDETOMIDINE 200MCG/NS 50ML 50 ML IV PRN (09:45)
--- NOTE | 2020-03-18 11:21 | Progress Note ---
DATE: SUBJECTIVE: The patient was placed on a spontaneous breathing trial this morning with a pressure support of 10 and a CPAP of 5. He was able to maintain a good minute ventilation. He was breathing 20 times a minute with tidal volumes of 450 to 500 mL. After 20 minutes, he had increased work of breathing. He had some desaturations. He was switched back to PRVC. The patient's sedation is decreased to 4 of Versed and 200 of fentanyl. He remains on Diprivan at 25 mcg. PHYSICAL EXAMINATION: VITAL SIGNS: The blood pressure is 172/99 and pulse is 99. Saturation is 98%. He is on a PRVC mode of ventilation at a rate of 22 with a tidal volume of 390 and FiO2 of 50%. His PEEP is set at 5. HEENT: Shows no facial swelling or erythema. There is an oral endotracheal tube. CARDIAC: Reveals regular rate and rhythm with normal S1 and S2. LUNGS: Auscultation of lungs reveals rhonchorous breath sounds bilaterally. There is no wheezing. ABDOMEN: Soft and nontender. There is no rebound or guarding. EXTREMITIES: Shows no leg edema or calf tenderness. There is no cyanosis or clubbing. SKIN: Shows no rashes. LABORATORY DATA: White blood cell count is 7.8 and the hemoglobin is 7.8. The platelet count is 509. The BUN to creatinine ratio is normal. Other electrolytes are within normal limits. The albumin is 1.9. IMPRESSION: 1. Acute respiratory failure. 2. COVID-19 infection. 3. Sacral decubitus wound. 4. Acute kidney injury. 5. Anemia. 6. Deep vein thrombosis. 7. Diabetes. PLAN: 1. Continue PRBC and repeat spontaneous breathing trial tomorrow. 2. Continue to wean sedatives. 3. Evaluation for tracheostomy. 4. Continue enteral feedings. 5. Continue insulin. Severiano Crow MD [facility]/MODL /[id number]
[2020-03-18] MEDS ORDERED: CLONIDINE HCL 0.3MG/24 HR PATCH TOP SCH (12:15)
--- NOTE | 2020-03-18 12:57 | Progress Note ---
DATE: SUBJECTIVE: Mr. Love continued to be in intensive care unit. His kidney function is normalizing. He is also on pressure support of 10, CPAP of 5, seems clinically to be improving. He is breathing about 20-minute, but had a volume between 400-500. But he is still very weak. REVIEW OF SYSTEMS: He follows commands now. PHYSICAL EXAMINATION: GENERAL: Alert. VITAL SIGNS: Stable. Currently, afebrile. HEENT: Not icteric. NECK: Supple. CHEST: Few crackles. HEART: S1, S2. No murmurs. ABDOMEN: Soft. IMPRESSION: 1. Respiratory failure, seems to be improving. 2. He is debility and weak. If I would need long, I will probably prolong with long weaning and therapy, so the trach is to be done. 3. We will recheck COVID-19. 4. Acute kidney failure, this seems to be better. 5. DVT also seems to be stable. 6. Debility is an issue now, we will discuss with the medical team. MD HARVEY Alexis/MODL /[id number]
--- NOTE | 2020-03-18 13:06 | Progress Note ---
DATE: Internal Medicine Progress Note SUBJECTIVE: The patient is still intubated, not able to be weaned yet. PHYSICAL EXAMINATION: VITAL SIGNS: Temperature 99.2, heart rate 99 per minute, respiratory rate 26 per minute, blood pressure is 172/99, pulse oximeter is 94%. He is on mechanical ventilator of course. HEART: Regular rhythm. Normal S1, S2 sound. LUNGS: Rhonchorous breath sounds bilaterally. No wheezing. ABDOMEN: Soft and nontender. No rebound or guarding. EXTREMITIES: Show no leg edema. No calf tenderness. No cyanosis or clubbing. SKIN: Showed no rashes on the neck. LABORATORY DATA: We have CBC; white blood count 7.81, hemoglobin 7.8, hematocrit 25.5, 182.5, Platelet count 509,000. He has 77.6 neutrophils and 7.9 lymphocyte which is low, monocytes 11.3, eosinophil 2.0, basophil 0.3. On the BMP; sodium 143, potassium 3.6, chloride 105, CO2 32, BUN 25, creatinine 0.85, GFR 60, glucose 184, the last one is 198 and 202, calcium 8.7, total bilirubin 0.2, AST 22, ALT 23, total protein 6.8, albumin 1.9, globulin 4.9, procalcitonin 0.12. MICROBIOLOGY: Blood cultures essentially negative. Urine culture negative also for 36-48 hours. Chest x-ray showed bilateral infiltrates. FINAL IMPRESSION: 1. Acute respiratory failure secondary to adult respiratory distress syndrome secondary to COVID-19 infection. 2. Obesity. 3. Acute anemia. 4. Uncontrolled diabetes mellitus type 2. 5. Deep vein thrombosis. PLAN OF TREATMENT: Continue ventilator support, wean as tolerated, so far he is not weanable. Tracheostomy . Continue cefepime 1 g IV twice a day. Continue sedation with dexmedetomidine. Continue with vancomycin 1 g IV once a day, Tylenol 650 mg q.6 hours as needed, Balsam Dion/castor oil one application daily for sacral decubital, D50 IV push as needed for hypoglycemia, Lovenox 80 mg with only twice a day. Continue Epogen 10,000 units daily. Continue fentanyl drip to titrate for sedation. Continue furosemide 80 mg IV one time, labetalol 5 mg IV q.6 hours as needed for hypertension, midazolam as needed for sedation, Protonix 40 mg IV twice a day, propofol for sedation, labetalol 5 mg IV q.6 hours as needed for hypertension. I am going to start the patient on Catapres patch 0.3 mg once a week for hypertension control. The case has been discussed with the nurse at the bedside. Prognosis remain guarded. MD PB Julian/FREDY /[id number]
[2020-03-18] MEDS: VANCOMYCIN 1GM/NS 250 ML 250 ML IV SCH (17:34)
[2020-03-19] VITALS (26 sets, daily range): BP systolic 101–168; BP diastolic 54–94
[2020-03-19] MEDS: PROPOFOL IV EMULSION 10 MG/ML 50 ML VIAL IV SCH ×6 (00:25→23:14)
[2020-03-19] MEDS: MIDAZOLAM HCL 5MG/ML 10ML VIAL 100 ML BAG IV PRN ×2 (01:30→23:14)
--- NOTE | 2020-03-19 02:44 | NUR ---
Sedation @ shift change (03/18 @ 1900): versed @ 4mg fentanyl @ 200 mcg propofol @ 29 mcg *pt noted to be in distress, RR 26-30 and labored-rate is set at 16, pt is awake, decreased O2 saturation 86-88%, high blood pressure. RT at bedside, FIO2 increased to 100%. pt sedated and no longer in distress. FIO2 decreased to 55% from previous 40%. pt tolerating well. sedation: versed @ 8mg fentanyl @ 275 mcg propofol @ 40 mcg @ 2300: pt had sudden desaturation to 78-82% and hypotension. No distress noted. No secretions noted when suctioning. RT at bedside, peep increased to 8 from previous 5 and FIO2 increased to 100%. BP stable and FIO2 decreased back to 50%. O2 saturation 88-90%. no distress noted. sedation: versed @ 6mg fentanyl @ 275 mcg propofol @ 40 mcg @0100: pt had sudden desaturation to 78-82% and hypotension. No distress noted. No secretions noted when suctioning. RT at bedside, FIO2 increased to 100%. BP stable and FIO2 decreased back to 65%. O2 saturation 97%. No distress noted. sedation: versed @ 6mg fentanyl @ 275 mcg propofol @ 40 mcg
[2020-03-19] MEDS: CEFEPIME 1GM/NS 0.9% 50 ML 50 ML IV SCH ×2 (03:41→15:18)
[2020-03-19 06:00] LABS: BASOPHILS % 0.1 % (0.0-1.0); EOSINOPHILS # (AUTO) 0.2 (0.0-0.4); EOSINOPHILS % 2.3 % (0.0-6.0); HEMATOCRIT 24.8 % (38.2-49.6); HEMOGLOBIN 7.3 g/dL (14.0-18.0); LYMPHOCYTES # (AUTO) 0.7 (1.0-3.2); LYMPHOCYTES % 10.2 % (18.0-39.1); MEAN CORPUSCULAR HGB CONC 29.4 g/dL (31-35); MEAN CORPUSCULAR VOLUME 84.9 fL (81-99); MONOCYTES # (AUTO) 0.9 (0.2-0.8); NEUTROPHILS % 73.5 % (38.7-80.0); PLATELET COUNT 448 x10e3/uL (140-360); RED BLOOD COUNT 2.92 x10e6/uL (4.3-5.7); RED CELL DISTRIBUTION WIDTH 15.4 % (11.7-14.4)
[2020-03-19 06:24] LABS: ANION GAP 8.9 mmol/L (8-16); BLOOD UREA NITROGEN 26 mg/dL (7-26); BUN/CREATININE RATIO 27 (6-25); CALCIUM 9.2 mg/dL (8.4-10.2); CARBON DIOXIDE 33 mmol/L (22-29); CHLORIDE 105 mmol/L (98-107); CREATININE, SERUM 0.96 mg/dL (0.72-1.25); EST GLOMERULAR FILTRATION RATE > 60 ML/MIN (60-); GLUCOSE 167 mg/dL (74-118); POTASSIUM 3.9 mmol/L (3.5-5.1); SODIUM 143 mmol/L (136-145)
--- NOTE | 2020-03-19 06:29 | Diagnostic Imaging Report ---
EXAMINATION: CHEST SINGLE (PORTABLE) INDICATION: Respiratory failure. COMPARISON: Multiple prior chest radiographs most recently of 03/17/2020 FINDINGS: LINES/TUBES:Endotracheal tube terminates 4.2 cm above the latasha. Left PICC line unchanged. Enteric tube unchanged. EKG leads overlie the chest. LUNGS:The lung volumes are low. Persistent bilateral right greater than left airspace opacities. PLEURA:Unchanged right pleural effusion. No pneumothorax. MEDIASTINUM:The cardiomediastinal silhouette appears unchanged in size and shape. BONES/SOFT TISSUES:No acute osseous abnormality. ABDOMEN:No free air under the diaphragm. IMPRESSION: Unchanged bilateral pulmonary opacities consistent with known atypical pneumonia. Persistent right-sided pleural effusion. Lines and tubes as above. No evidence of pneumothorax. Signed by: Dr. Yariel Almeida MD on 03/19/2020 6:26 AM
[2020-03-19 06:40] LABS: INR 1.04; PROTHROMBIN TIME 14.2 seconds (11.9-14.5)
[2020-03-19 06:41] LABS: PARTIAL THROMBOPLASTIN TIME 46.3 seconds (23.8-35.5)
[2020-03-19] MEDS: FENTANYL 2,000 MCG/250 ML BAG IV SCH (06:50)
[2020-03-19] MEDS: BALSAM PERU/CASTOR OIL 60 GM OINT...G. TP SCH (08:03)
[2020-03-19] MEDS: ENOXAPARIN INJ 80 MG/0.8 ML SYR SC SCH ×2 (08:03→21:03)
[2020-03-19] MEDS: PANTOPRAZOLE 40 MG 10ML VIAL IV SCH ×2 (08:03→16:44)
[2020-03-19] MEDS: SODIUM HYPOCHLORITE 0.25% 480 ML SOLN IR SCH (08:03)
--- NOTE | 2020-03-19 09:47 | NUR ---
INFECTIOUS DISEASE PROGRESS NOTE 03/19/20 SUBJECTIVE: Mr. Love remains in intensive care unit. Previously discussed with surgery, tracheostomy could be done under protective gear and a gram negative pressure. REVIEW OF SYSTEMS: Could not be obtained. PHYSICAL EXAMINATION: GENERAL: He is intubated, sedated. VITAL SIGNS: 99.1, 101/54, 92, 20 HEENT: Not icteric. NECK: Supple, no JVD CHEST: Crackles, diminished, vent support COR: S1, S2. No murmur. ABDOMEN: Soft, non distended, obese IMPRESSION: 1. COVID-19 infection. 2. Acute respiratory failure. 3. Acute respiratory distress syndrome. 4. Deep venous thrombosis. 5. Aspiration pneumonia PLAN: 03/19/20 Pending culture results on COVID19. No plans for trach as of today per RN, continues on vent support. Continues on Cefepime and Vancomycin. Stop date entered in orders. Discussed with Dr. Hillman
--- NOTE | 2020-03-19 11:19 | Progress Note ---
DATE: SUBJECTIVE: The patient is on 45% oxygen and 5 of PEEP. He was placed on a spontaneous breathing trial this morning with PEEP of 5 and a pressure support of 10. He had good tidal volumes in the 500 to 600 range with a respiratory rate between 10 and 15, but he was using his extra respiratory muscles. After 15 minutes, he had to be switched back to PRVC. The patient remains afebrile. PHYSICAL EXAMINATION: VITAL SIGNS: Stable. The blood pressure is 102/60, saturation is 96%. HEENT: Shows no facial swelling or erythema. There is an oral endotracheal tube in place. He has an A-line and a PICC line. CARDIAC: Reveals regular rate and rhythm with normal S1 and S2. LUNGS: Auscultation of lungs reveals decreased breath sounds at the bases. There is no wheezing. ABDOMEN: Soft and nontender. There is no rebound or guarding. EXTREMITIES: Shows no leg edema or calf tenderness. There is no cyanosis or clubbing. SKIN: Shows no rashes. NEUROLOGICAL: Shows no focal abnormalities. LABORATORY DATA: BUN to creatinine ratio is 26 to 0.96. The other electrolytes within normal limits. White blood cell count is 6.8 and hemoglobin is 7.3. The platelet count is 448. IMPRESSION: 1. Acute respiratory failure. 2. COVID-19 infection. 3. Sacral decubitus wound. 4. Acute kidney injury. 5. Anemia. 6. Deep vein thrombosis. 7. Diabetes. PLAN: 1. Plan for tracheostomy. 2. Continue spontaneous breathing trials as tolerated. 3. Continue to wean sedative. 4. Continue enteral feedings. 5. Continue insulin. 6. Wound care. Severiano Crow MD [facility]/MODL /[id number]
--- NOTE | 2020-03-19 14:50 | Progress Note ---
DATE: Internal Medicine Progress Note SUBJECTIVE: The patient is still on the ventilator. PHYSICAL EXAMINATION: HEART: Showed regular rhythm. Normal S1 and S2 sound. LUNGS: Clear bilaterally. ABDOMEN: Soft. VITAL SIGNS: Temperature 98.7, heart rate 91 per minute, respiratory rate 16 per minute, blood pressure 102/59, and pulse oximeter is 89%. The patient is still on the ventilator machine. LABORATORY DATA: On the CBC; white blood count 6.83, hemoglobin 7.3, hematocrit 24.8, and platelet count 448,000. On the BMP; sodium 143, potassium 3.9, chloride 105, CO2 33, BUN 26, creatinine 0.96, GFR is 60, and blood sugar is 178. Vancomycin trough is 6.3. Coagulation showed PT 14.2, INR 1.04, and PTT 46.3. Urinalysis shows negative leukocytes and red blood cells. Serologies show pending test for coronavirus, all the other tests were positive. Stool for occult blood is positive. Chest x-ray done today showed unchanged bilateral pulmonary opacities consistent with known atypical pneumonia, persistent right-sided pleural effusion. Lines and tubes as above. No pneumothorax. Endotracheal tube is 4.2 cm above the latasha. Left PICC line is unchanged. Enteric tube is unchanged. EKG leads overlie the chest. FINAL IMPRESSION: 1. Acute respiratory failure secondary to adult distress respiratory syndrome secondary to COVID-19. 2. Obesity. 3. Uncontrolled diabetes mellitus type 2. 4. Adult respiratory distress syndrome. 5. COVID-19 infection. 6. Acute anemia. 7. Deep vein thrombosis. PLAN OF TREATMENT: Continue ventilator support. The patient is not weanable yet despite all the attempts. Continue cefepime 1 g IV twice a day. Continue with vancomycin 1 g IV once a day, Tylenol 650 mg q.6 hours as needed for pain or fever, Balsam Seaview/castor oil one application daily, D50 push as needed for hypoglycemia, Lovenox 80 mg subcutaneous twice a day for DVT prophylaxis, Epogen 10,000 units subcutaneous daily, fentanyl drip for sedation, labetalol 5 mg IV q.6 hours as needed for hypertension, Versed drip as needed for sedation, Protonix 40 mg IV twice a day for gastritis prophylaxis, propofol as per protocol for sedation. Discussed with the nurse. Consultants report has been reviewed. Time spent around 35 minutes. MD PB Julian/FREDY /[id number]
[2020-03-19] MEDS: VANCOMYCIN 1GM/NS 250 ML 250 ML IV SCH (15:18)
[2020-03-20] VITALS (27 sets, daily range): BP systolic 105–165; BP diastolic 55–77
[2020-03-20] MEDS: FENTANYL 2,000 MCG/250 ML BAG IV SCH ×2 (01:23→15:25)
[2020-03-20] MEDS: CEFEPIME 1GM/NS 0.9% 50 ML 50 ML IV SCH ×2 (03:30→14:38)
[2020-03-20 05:32] LABS: BASOPHILS % 0.2 % (0.0-1.0); EOSINOPHILS # (AUTO) 0.2 (0.0-0.4); EOSINOPHILS % 3.5 % (0.0-6.0); HEMATOCRIT 25.6 % (38.2-49.6); HEMOGLOBIN 7.7 g/dL (14.0-18.0); LYMPHOCYTES # (AUTO) 0.7 (1.0-3.2); LYMPHOCYTES % 10.4 % (18.0-39.1); MEAN CORPUSCULAR HEMOGLOBIN 25.6 pg (28-32); MEAN CORPUSCULAR HGB CONC 30.1 g/dL (31-35); MONOCYTES # (AUTO) 0.7 (0.2-0.8); MONOCYTES % 10.4 % (4.4-11.3); NEUTROPHILS # (AUTO) 4.9 (2.1-6.9); NEUTROPHILS % 74.4 % (38.7-80.0); PLATELET COUNT 447 x10e3/uL (140-360); RED BLOOD COUNT 3.01 x10e6/uL (4.3-5.7); RED CELL DISTRIBUTION WIDTH 15.5 % (11.7-14.4)
[2020-03-20 05:58] LABS: ALANINE AMINOTRANSFERASE 21 IU/L (0-55); ALBUMIN 1.9 g/dL (3.5-5.0); ALBUMIN/GLOBULIN RATIO 0.4 (0.8-2.0); ALKALINE PHOSPHATASE 144 IU/L (40-150); ANION GAP 7.9 mmol/L (8-16); BLOOD UREA NITROGEN 24 mg/dL (7-26); BUN/CREATININE RATIO 30 (6-25); CALCIUM 8.8 mg/dL (8.4-10.2); CARBON DIOXIDE 32 mmol/L (22-29); CHLORIDE 107 mmol/L (98-107); EST GLOMERULAR FILTRATION RATE > 60 ML/MIN (60-); GLUCOSE 151 mg/dL (74-118); POTASSIUM 3.9 mmol/L (3.5-5.1); SODIUM 143 mmol/L (136-145)
[2020-03-20] MEDS: PROPOFOL IV EMULSION 10 MG/ML 50 ML VIAL IV SCH ×12 (06:29→22:14)
--- NOTE | 2020-03-20 06:33 | NUR ---
SEDATION DECREASED, PT TOLERATING WELL. VS WNL, PT TOLERATING VENTILATOR. VERSED @ 2 MG (PREVIOUSLY 5 MG) FENTANYL @ 125 MCG (PREVIOUSLY 225 MCG) PROPOFOL @ 52 MCG (PREVIOUSLY 46 MCG) WILL CONTINUE TO WEAN TOLERATED.
[2020-03-20] MEDS: BALSAM PERU/CASTOR OIL 60 GM OINT...G. TP SCH (09:26)
[2020-03-20] MEDS: ENOXAPARIN INJ 80 MG/0.8 ML SYR SC SCH ×2 (09:26→21:44)
[2020-03-20] MEDS: SODIUM HYPOCHLORITE 0.25% 480 ML SOLN IR SCH (09:26)
[2020-03-20] MEDS: PANTOPRAZOLE 40 MG 10ML VIAL IV SCH ×2 (09:26→16:41)
[2020-03-20] MEDS: INSULIN REGULAR, HUMAN 3ML VL 100 UNIT in SODIUM CHLORIDE 0.9% 100 ML IV SCH ×2 (09:27)
--- NOTE | 2020-03-20 09:27 | Progress Note ---
DATE: 03/20/2020 CHIEF COMPLAINT/HISTORY OF PRESENT ILLNESS: This is a 35-year-old man, whose primary treating diagnosis is acute hypoxic respiratory failure secondary to ARDS from bilateral COVID-19 broad pneumonia. The patient had COVID-19 test performed on March 17, 2020, which was negative. However, repeat test last night from 03/19/2020 was positive. Clinically, the patient is improving. His oxygen saturation is 94% on FiO2 of 45%. He is still on ventilator AC mode. Blood work today revealed white blood cell count of 6600 with 74% segmented neutrophils, and hemoglobin 7.7 g/dL. The patient's BUN and creatinine 24 and 0.8 respectively, potassium is 3.9. Chest x-ray performed yesterday March 19, 2020, revealed unchanged bilateral pulmonary opacities. REVIEW OF SYSTEMS: As per HPI. PHYSICAL EXAMINATION: GENERAL: He is sedated on the ventilator as previously stated. VITAL SIGNS: Blood pressure is 130/70, pulse 100, respiratory rate 18, oxygen saturation is 93% on FiO2 of 45%, temperature is 98.3. He has been afebrile for over 72 hours, BMI is 30. INTEGUMENT: Skin is warm and dry. SKIN: Slight pallor. No jaundice or diaphoresis. The patient has an unchanged 4 x 4 cm sacral decubitus ulcer that is covered 90% with slough, but the periphery does show erythematous granulation tissue. Once again, it is not worsening. HEENT: Anicteric sclerae. His orogastric and endotracheal tube in place. NECK: Supple. CARDIOVASCULAR: Tachycardic, regular rate and rhythm. LUNGS: The patient has crackles and rhonchi throughout the right lung field. Left lung field is diminished. ABDOMEN: Soft. He has bowel sounds. EXTREMITIES: No edema or deformity. NEUROLOGIC: He is sedated on the ventilator. DIAGNOSES: 1. Acute hypoxic respiratory failure secondary to acute respiratory distress syndrome from bilateral COVID-19 pneumonia. 2. Bilateral COVID-19 pneumonia. 3. Bilateral bacterial pneumonia, likely gram-negative cristhian. 4. Ventilator dependent. 5. Type 2 diabetes mellitus. 6. Stage IV sacral decubitus ulcer. 7. Acute right lower extremity deep venous thrombosis. 8. Anemia secondary to chronic disease. PLAN: 1. Continue wound care to the sacral decubitus ulcer. 2. We will repeat COVID-19 test tonight at 2300 hours. 3. Continue respiratory support and oxygenation via ventilator. 4. Continue intravenous antibiotics for patient's presumed bilateral gram- negative pneumonia. 5. We will administer one dose of intravenous furosemide since he may be volume overloaded. 6. Continue glucose control with intravenous insulin. 7. Continue high dose enoxaparin 80 mg subcutaneous twice a day for his acute right lower extremity deep venous thrombosis. 8. Once we obtain 2 consecutive negative COVID-19 tests, we will likely proceed with elective tracheostomy tube placement. I spent 35 minutes in care of this intensive care unit patient. MD OLVIN Blackburn/FREDY /[id number] MTDD
--- NOTE | 2020-03-20 09:45 | NUR ---
INFECTIOUS DISEASE PROGRESS NOTE SUBJECTIVE: Mr. Love remains in intensive care unit. REVIEW OF SYSTEMS: Could not be obtained. PHYSICAL EXAMINATION: GENERAL: He is intubated, sedated. VITAL SIGNS: 98.3, 119/62, 95, 20 HEENT: Not icteric. NECK: Supple, no JVD CHEST: Crackles, diminished, vent support COR: S1, S2. No murmur. ABDOMEN: Soft, non distended, obese LABS: Repeat COVID positive RADIOLOGY: IMPRESSION: 03/19 Unchanged bilateral pulmonary opacities consistent with known atypical pneumonia. Persistent right-sided pleural effusion. Lines and tubes as above. No evidence of pneumothorax. IMPRESSION: 1. COVID-19 infection. 2. Acute respiratory failure. 3. Acute respiratory distress syndrome. 4. Deep venous thrombosis. 5. Aspiration pneumonia vs COVID pneumonitis 6. Obesity 7. Stage 4 sacral wound PLAN: 03/20/20: Repeat COVID PCR positive. Continue supportive care. Continue IV ABT as ordered. No Leukocytosis, remains afebrile. No plans for trach as of right now. Vent support per critical care medicine. Local care to sacral wound. Primary medicine ordered another PCR for tonight at 11pm. 03/19/20 Pending culture results on COVID19. No plans for trach as of today per RN, continues on vent support. Continues on Cefepime and Vancomycin. Stop date enter ed in orders. Discussed with Dr. Hillman
[2020-03-20] MEDS ORDERED: ACETAZOLAMIDE SODIUM 500 MG/VIAL IV ONE (14:00)
[2020-03-20] MEDS ORDERED: SODIUM CHLORIDE 0.9% 250ML 0 ML ONE (14:38)
--- NOTE | 2020-03-20 14:43 | Progress Note ---
DATE: SUBJECTIVE: The patient is having some low-grade temperature to 100.2. He was tried on a spontaneous breathing trial this morning with pressure support of 10 and CPAP of 5, it lasted for about 40 minutes before having to be switched back to PRVC due to tachypnea. The patient's Versed is down to 1 mg and his fentanyl is 115 mcg. He is on Diprivan as well. PHYSICAL EXAMINATION: VITAL SIGNS: The patient is afebrile. The blood pressure is 139/70, saturation is 96%, and pulse is 110. HEENT: Shows no facial swelling or erythema. CARDIAC: Reveals a regular rate and rhythm with normal S1, S2. There are no murmurs or rubs heard. LUNGS: Auscultation of lungs reveals decreased breath sounds at the bases. There is no wheezing. ABDOMEN: Soft, nontender. There is no rebound or guarding. EXTREMITIES: Show no leg edema or calf tenderness. There is no cyanosis or clubbing. SKIN: Shows no rashes. NEUROLOGICAL: Shows the patient to be awake when sedation is stopped. IMPRESSION: 1. Acute respiratory failure. 2. COVID-19 infection. 3. Sacral decubitus wound. 4. Acute kidney injury. 5. Anemia. 6. Deep vein thrombosis. 7. Diabetes. PLAN: 1. Continue spontaneous breathing trials and weaning as tolerated. 2. The patient needs tracheostomy. 3. Continue to wean sedatives. 4. Enteral feedings. 5. Insulin as needed. 6. Wound care. Severiano Crow MD [facility]/MODL /[id number]
--- NOTE | 2020-03-20 14:47 | NUR ---
spoke with . reported vanc trough results. md order to discontinue vancomycin and cefepim .
[2020-03-20] MEDS: MIDAZOLAM HCL 5MG/ML 10ML VIAL 100 ML BAG IV PRN (15:26)
--- NOTE | 2020-03-20 18:07 | Diagnostic Imaging Report ---
EXAMINATION: CHEST XRAY LINE PLACEMENT INDICATION: Check placement of PICC COMPARISON: Multiple prior chest radiographs most recently of 03/19/2020 FINDINGS: LINES/TUBES:Endotracheal tube terminates 4.2 cm above the latasha. Left PICC line unchanged. Enteric tube unchanged. EKG leads overlie the chest. LUNGS:The lung volumes are low. Persistent bilateral right greater than left airspace opacities. PLEURA:Unchanged right pleural effusion. No pneumothorax. MEDIASTINUM:The cardiomediastinal silhouette appears unchanged in size and shape. BONES/SOFT TISSUES:No acute osseous abnormality. ABDOMEN:No free air under the diaphragm. IMPRESSION: No significant interval change. Signed by: Sotero Limon MD on 03/20/2020 6:04 PM
[2020-03-20] MEDS ORDERED: FUROSEMIDE INJ 10 MG/ML 4 ML VIAL IV ONE (22:45)
[2020-03-21] VITALS (26 sets, daily range): BP systolic 95–167; BP diastolic 48–79
[2020-03-21] MEDS: PROPOFOL IV EMULSION 10 MG/ML 50 ML VIAL IV SCH ×18 (00:30→23:45)
[2020-03-21 05:33] LABS: BASOPHILS % 0.2 % (0.0-1.0); EOSINOPHILS # (AUTO) 0.2 (0.0-0.4); EOSINOPHILS % 1.8 % (0.0-6.0); HEMATOCRIT 26.4 % (38.2-49.6); LYMPHOCYTES # (AUTO) 0.7 (1.0-3.2); LYMPHOCYTES % 8.6 % (18.0-39.1); MEAN CORPUSCULAR HEMOGLOBIN 25.7 pg (28-32); MEAN CORPUSCULAR HGB CONC 30.3 g/dL (31-35); MEAN CORPUSCULAR VOLUME 84.9 fL (81-99); MONOCYTES # (AUTO) 0.8 (0.2-0.8); MONOCYTES % 9.4 % (4.4-11.3); NEUTROPHILS # (AUTO) 6.6 (2.1-6.9); NEUTROPHILS % 79.3 % (38.7-80.0); PLATELET COUNT 491 x10e3/uL (140-360); RED BLOOD COUNT 3.11 x10e6/uL (4.3-5.7); RED CELL DISTRIBUTION WIDTH 15.7 % (11.7-14.4)
[2020-03-21 05:49] LABS: ALANINE AMINOTRANSFERASE 21 IU/L (0-55); ALBUMIN/GLOBULIN RATIO 0.4 (0.8-2.0); ALKALINE PHOSPHATASE 186 IU/L (40-150); ANION GAP 10.9 mmol/L (8-16); BLOOD UREA NITROGEN 22 mg/dL (7-26); BUN/CREATININE RATIO 25 (6-25); CALCIUM 8.9 mg/dL (8.4-10.2); CARBON DIOXIDE 32 mmol/L (22-29); CHLORIDE 106 mmol/L (98-107); CREATININE, SERUM 0.88 mg/dL (0.72-1.25); EST GLOMERULAR FILTRATION RATE > 60 ML/MIN (60-); GLUCOSE 186 mg/dL (74-118); POTASSIUM 3.9 mmol/L (3.5-5.1); SODIUM 145 mmol/L (136-145)
[2020-03-21] MEDS: FENTANYL 2,000 MCG/250 ML BAG IV SCH ×2 (06:09→18:21)
--- NOTE | 2020-03-21 06:35 | Diagnostic Imaging Report ---
EXAMINATION: CHEST SINGLE (PORTABLE) INDICATION: ^resp failure ^[id number] ^[id number] COMPARISON: None IMPRESSION: Unchanged advanced diffuse right lung airspace disease which may reflect severe pulmonary edema and/or pneumonia. Left lung airspace disease suggestive of edema is also unchanged. The visualized cardiac silhouette is stable. Probable small effusions are unchanged. Unchanged endotracheal tube. Unchanged left upper extremity PICC. Unchanged partially visualized nasogastric tube. Signed by: Tone Mcmanus MD on 03/21/2020 6:32 AM
[2020-03-21] MEDS: ENOXAPARIN INJ 80 MG/0.8 ML SYR SC SCH (08:37)
[2020-03-21] MEDS: PANTOPRAZOLE 40 MG 10ML VIAL IV SCH ×3 (08:37→17:01)
[2020-03-21] MEDS ORDERED: FUROSEMIDE INJ 10 MG/ML 4 ML VIAL IV ONE (09:00)
[2020-03-21] MEDS: BALSAM PERU/CASTOR OIL 60 GM OINT...G. TP SCH (09:04)
[2020-03-21] MEDS: SODIUM HYPOCHLORITE 0.25% 480 ML SOLN IR SCH (09:04)
--- NOTE | 2020-03-21 09:11 | Progress Note ---
DATE: 03/21/2020 CHIEF COMPLAINT/HISTORY OF PRESENT ILLNESS: This is a 35-year-old man, whose primary treating diagnosis is acute hypoxic respiratory failure secondary to ARDS from bilateral COVID-19 pneumonia. The patient had a repeat COVID-19 test performed last night, but the result is still pending. Today's potassium is 3.9. The patient's BUN and creatinine are 22 and 0.88 respectively. The patient's white blood cell count today is 8300 with 79% segmenters. Hemoglobin is 8 g/dL. Chest film today reveals bilateral airspace opacities, much more pronounced on the right. REVIEW OF SYSTEMS: As per HPI. PHYSICAL EXAMINATION: VITAL SIGNS: He is sedated on the ventilator, but he does arouse enough to focus. He is on AC mode, FiO2 is 45%, oxygen saturation 97%. Heart rate is 100, respiratory rate is 18, blood pressure 130/80, temperature 98.7. BMI 30. INTEGUMENT: Skin is warm and dry. Slight pallor. No jaundice or diaphoresis. The patient has a 5 x 5 cm sacral decubitus ulcer, that has an eschar center. The periphery has granulation tissue. The wound is not worsening. HEENT: Anterior sclerae. He has orogastric and endotracheal tube in place. NECK: Supple. CARDIOVASCULAR: Tachycardic rate and regular rhythm. LUNGS: The patient has crackles and rhonchi in the bilateral lung alvarado. ABDOMEN: Soft with bowel sounds. EXTREMITIES: No edema or deformity. NEURO: Intact. DIAGNOSES: 1. Acute hypoxic respiratory failure secondary to acute respiratory distress syndrome from bilateral coronavirus disease 2019 pneumonia. 2. Bilateral coronavirus disease 2019 pneumonia. 3. Bilateral gram-negative cristhian pneumonia, resolving. 4. Ventilator dependent. 5. Acute right lower extremity deep venous thrombosis. PLAN: 1. Attempt to wean FiO2. 2. Attempt to wean the patient off ventilator. 3. We will attempt another pressure support and attempt another CPAP trial today. 4. We will administer another dose of intravenous furosemide. 5. Continue high dose enoxaparin twice a day for the patient's acute right lower extremity deep venous thrombosis. I spent 30 minutes in the care of this intensive care unit patient. MD OLVIN Blackburn/FREDY /[id number] MTDJj
--- NOTE | 2020-03-21 10:19 | NUR ---
INFECTIOUS DISEASE PROGRESS NOTE SUBJECTIVE: Mr. Love remains in intensive care unit. REVIEW OF SYSTEMS: Could not be obtained. PHYSICAL EXAMINATION: GENERAL: He is intubated, sedated. VITAL SIGNS: 99.2, 159/74, 93, 20 HEENT: Not icteric. NECK: Supple, no JVD CHEST: Crackles, diminished, vent support CV: S1, S2. No murmur. ABDOMEN: Soft, non distended, obese LABS: Repeat COVID positive, another repeat is pending. RADIOLOGY: IMPRESSION: Unchanged advanced diffuse right lung airspace disease which may reflect severe pulmonary edema and/or pneumonia. Left lung airspace disease suggestive of edema is also unchanged. The visualized cardiac silhouette is stable. Probable small effusions are unchanged. Unchanged endotracheal tube. Unchanged left upper extremity PICC. Unchanged partially visualized nasogastric tube. IMPRESSION: The patient is a 35-year-old man. PMH T2DM, sacral wound. Presented to ED with headache, dizziness, fatigue and cough He had mild cough. Treating in the ICU for COVID19 pneumonia and complications associated. 1. COVID-19 infection. 2. Acute respiratory failure. 3. Acute respiratory distress syndrome. 4. Deep venous thrombosis. 5. Aspiration pneumonia vs COVID pneumonitis 6. Obesity 7. Stage 4 sacral wound PLAN: 03/21/20: Continuing to wean vent, CPAP trials. PCR pending this AM. Gram-neg cristhian PNA slowly resolving. Afebrile. Continue IV ABT as ordered. Continue supportive care per ICU team. 03/20/20: Repeat COVID PCR positive. Continue supportive care. Continue IV ABT as ordered. No Leukocytosis, remains afebrile. No plans for trach as of right now. Vent support per critical care medicine. Local care to sacral wound. Primary medicine ordered another PCR for tonight at 11pm. 03/19/20 Pending culture results on COVID19. No plans for trach as of today per RN, continues on vent support. Continues on Cefepime and Vancomycin. Stop date enter ed in orders. Discussed with Dr. Hillman
--- NOTE | 2020-03-21 10:42 | NUR ---
spoke with dr. nichole, plan for trach tomorrow thursday 03/22 towards end of day. notified dr.l. arias of plan of care. restarted tube feeds per md order.
--- NOTE | 2020-03-21 12:13 | NUR ---
PT PLAN OF CARE DISCUSSED WITH DR KUMAR AND [facility]AD[facility] TEAM PER LUCILA NORMAN LUGGER AGREEABLE TO LETTER OF AGREEMENT WITH [facility] CLINICAL INFORMATION FAXED TO JOSE RODRIGUEZ WITH [facility]OR CLINICAL INFORMATION FAXED TO TAJ AT [facility]
--- NOTE | 2020-03-21 14:40 | NUR ---
Nutrition Intervention Note RD Recommendation(s) for Physician: - Recommend modifying tube feed formula to Vital High Protein @ goal rate of 55 ml/hr while on propofol (1320 kcal, 116 g protein per day). - Propofol provides an additional 634 kcal. - Water flushes per MD. Plan of Care: RD following, monitoring for tolerance and adequacy. TF recs. Nutrition reason for involvement: follow up RD Assessment 03/21: Follow up. Pt remains intubated and sedated, currently on Propofol and Versed. Pt off, CPAP trials, plan to resume TF per RN. Plan for trach placement tomorrow. Chart reviewed. Discussed TF rec's with RN on unit as pt not meeting protein needs and Propofol providing additional kcal. Will continue to monitor. 03/17: Follow up. Pt remains intubated and is sedated on propofol @ 21.8 mL/hr which provides 575 kcal. Pt is tolerating tube feeding and is receiving Nepro @ 40 mL/hr. Recommend modifying formula to Vital High Protein. Informed RN of recommendation. Will continue to monitor. 03/13: Follow up. Pt remains intubated and sedated, off Propofol and continues on Fentanyl drip. Pt continues on TF of Nepro at 40 ml/hr, no dialysis initiated and renal trend improving. TF meeting current estimated needs. Current rec's remain appropriate. Chart reviewed. Will continue to monitor. 03/08: Follow up. Pt remains intubated and sedated on Propofol and Fentanyl drips. No pressor support. Pt on TF of Nepro at 40 ml/hr. Renal trend noted, no dialysis currently. TF meeting estimated kcal and protein needs per current renal trend. TF rec's provided pending dialysis initiation and continued Propofol use. Chart reviewed. Will continue to monitor. 03/03: Follow up. Pt remains mechanically ventilated. Pt is receiving Glucerna 1.2 @ 40 ml/hr per chart. Pt is receiving 26.7 mL/hr of propofol which provides 705 kcal. Recommend modifying formula to Vital High Protein. Will continue to monitor. 02/28: Follow up. Pt remains intubated, sedated with Propofol and fentanyl drip. Pt not currently on pressors. TF currently off per am documentation, previously infusing at 20 ml/hr on 02/27 and 02/26- not meeting needs. Pt with increased water flushes per MD 2/2 hypernatremia. Chart reviewed. TF rec's relayed to RN. Will continue to monitor. 02/24: Follow up. Pt remains mechanically ventilated. Per RN, pt is tolerating tube feeding of Glucerna 1.2 @ 40 mL/hr. Recommend modifying formula to Vital High Protein. RD recommendation provided to nurse. Will continue to monitor. 02/20: 35 YOM admitted for hypoxemia, hyperglycemia with PMH listed below. Physical visit was deferred d/t hospitals infection disease policy. Pt is intubated on fentanyl and propofol. Pt is not on pressors as of now. The nurse reported the pt was ordered pressors over the weekend but has not needed it today. Nurse reported possible ARDS, they have not had to place the pt in the prone position yet. Pt was ordered Glucerna 1.2 at 20 ml/hr advance to goal rate of 60 ml/hr with 100 ml of water every 4 hours (1728 kcal, 86gram protein) . RD recommendations provided above and given to nurse. Unaware of propofol rate d/t not being able to enter the room and nurse not knowing at current time. Nurse reported the pt is currently on 20 ml/hr of Glucerna 1.2. Will continue to monitor. Principal Problems/Diagnoses: hypoxemia, hyperglycemia PMH: Uncontrolled type 2 diabetes mellitus. GI: last recorded BM 03/20 Skin: unstagable sacral PU Labs: 03/21: Na 145, K 3.9, BUN 22, Cr 0.88, Gluc 186, POC Gluc 98- 200 03/17: Na 144, K 3.8, BUN 26, Cr 0.86. Glu 200 03/13: Na 141, K 3.6, BUN 39, Cr 1.13, Gluc 245, POC Gluc 261-286 03/08: Na 142, K 4.4, BUN 54, Cr 1.42, Gluc 323, POC Gluc 316-336 Meds: protonix IVF/Drips: Propofol at 24 ml/hr (providing 634 lipid kcal/day), Fentanyl drip, Versed drip Ht: 71 in Wt: 220 lbs (03/17) 212 lbs (02/27) 215 lbs (02/23) 213 lb (02/20) BMI: 30.7 kg/m^2 IBW: 172 lbs Malnutrition Evaluation (03/21) -unable to perform nutrition assessment, isolation precautions for COVID-19 Nutrition Prescription (Diet Order): TF of Nepro at 40 ml/hr (1728 kcal and 78 gm protein) Estimated Nutritional Needs: Calories: 0936-5373 kcal/day (20- 25 kcal/kg/day) Weight used : IBW (78 kg) Protein : 94 156 g protein/day (1.2-2 gram/kg/day ) Weight used: IBW (78 kg) Diet Adequacy: meeting calorie needs, meeting >75% protein needs Diet Education Needs Assessment: Diet education not indicated, patient on temporary/transition diet. Nutrition Care Level: moderate Nutrition Diagnosis: Inadequate energy intake related to medical condition as evidenced by the pt needing mechanical ventilation and need for TF to meet energy and protein needs. Goal: Patient will meet 75-100% of estimated needs by follow up Progress: progressing Interventions: -TF (Composition, Rate, Route),Recommended Modifications, Collaboration with other providers Monitoring/Evaluation: -Total energy intake, Total protein intake, Formula/Solution Signed: Chasidy Bridges RD, LD, CNSC
[2020-03-21] MEDS ORDERED: ACETAZOLAMIDE SODIUM 500 MG/VIAL IV SCH (15:30)
--- NOTE | 2020-03-21 15:47 | Progress Note ---
DATE: SUBJECTIVE: Lovenox has been held and the patient has been started on intravenous heparin in anticipation of tracheostomy tomorrow. Hold enteral feedings after midnight and stop heparin drip several hours before surgery. The patient was on a CPAP trial for 35 minutes today before becoming tachypneic and being switched back to pressure regulated volume control. PHYSICAL EXAMINATION: VITAL SIGNS: The patient is now on 45% FiO2 with a PEEP of 5. HEENT: Shows no facial swelling or erythema. CARDIAC: Reveals regular rate and rhythm with a normal S1 and S2. LUNGS: Auscultation of lungs reveals clear breath sounds bilaterally. There is no wheezing. ABDOMEN: Soft and nontender. There is no rebound or guarding. EXTREMITIES: Shows no leg edema or calf tenderness. There is no cyanosis or clubbing. LABORATORY DATA: White blood cell count is 8.3 and the hemoglobin is 8. The platelet count is 491. BUN to creatinine ratio is 22 to 0.88, and the other electrolytes are within normal limits. IMPRESSION: 1. Acute respiratory failure. 2. COVID-19 infection. 3. Deep vein thrombosis. 4. Decubitus ulcer. 5. Myopathy of critical illness. PLAN: 1. Tracheostomy tomorrow. 2. Continue weaning trials as tolerated. 3. Continue enteral feedings. 4. Wound care. 5. Additional diuretics today. Severiano Crow MD [facility]/MODL /[id number]
--- NOTE | 2020-03-21 16:06 | NUR ---
spoke with dr. nichole and dr. arias. both MD's spoke with patient's brother, Thomas, and father, Donovan with plan of care for trach placement tomorrow (03/22/20) at 1pm. consent obtained via telephone by myself and a RN witness. new orders received to hold lovenox starting now and start heparin gtt without bolus. plan to hold heparin gtt tomorrow am prior to surgery. also NPO at midnight. tube feed to restart 03/23 if okay with physician with vital HP at 55ml/hr.
--- NOTE | 2020-03-21 16:12 | Consultation ---
DATE OF CONSULTATION: 03/21/2020 CHIEF COMPLAINT: Pneumonia. HISTORY OF PRESENT ILLNESS: The patient is a 35-year-old male, admitted a month ago with fever and hypoxia, was found to be COVID-19 positive. The patient had bilateral pulmonary infiltrate consistent with pneumonia. The patient has been intubated for 3 plus weeks. A consultation requested for tracheostomy for respiratory management. PAST MEDICAL HISTORY: Significant for poorly controlled diabetes. PAST SURGICAL HISTORY: Positive for left hand surgery. ALLERGIES: NO DRUG ALLERGIES. SOCIAL HABITS: The patient has a history of drinking, but no smoking. REVIEW OF SYSTEMS: Unobtainable. PHYSICAL EXAMINATION: VITAL SIGNS: The patient's vital sign is stable. Afebrile. He is sedated and intubated. EYES: Sclerae are nonicteric. LUNGS: Bilateral rhonchi. HEART: Regular rate and rhythm. ABDOMEN: Soft. EXTREMITIES: Some ankle edema. LABORATORY DATA: Current white cell count is 8, hemoglobin of 8, and platelet count of 491. INR of 1.0 and PT of 14. Creatinine is 0.8. Chest x-ray revealed right lungs infiltrate consistent with pneumonia. There is also evidence of pulmonary edema. ASSESSMENT: 1. COVID-19 associated pneumonia. 2. Ventilator-dependent respiratory status. PLAN: Placement of tracheostomy. The indication includes prolonged endotracheal intubation with risk for subglottic stenosis. Osmin Jackson MD DNL/MODL /[id number]
[2020-03-21] MEDS: INSULIN REGULAR, HUMAN 3ML VL 100 UNIT in SODIUM CHLORIDE 0.9% 100 ML IV SCH ×2 (17:02)
[2020-03-21] MEDS: MIDAZOLAM HCL 5MG/ML 10ML VIAL 100 ML BAG IV PRN (17:04)
[2020-03-21] MEDS: HEPARIN 25,000 UNIT 1,500 UNIT in DEXTROSE 5% 250ML 250 ML IV SCH (17:50)
--- NOTE | 2020-03-21 19:33 | Progress Note ---
DATE: SUBJECTIVE: Mr. Love remains in the intensive care unit, intubated. The patient seems to be getting better in terms of the vent setting. OBJECTIVE: VITAL SIGNS: Stable, afebrile. HEENT: Not icteric. NECK: Supple. CHEST: Few crackles bilateral. HEART: S1 and S2. No S3, S4, or murmurs. ABDOMEN: Soft. IMPRESSION: 1. COVID-19, pneumonia. Acute respiratory distress syndrome seems to be getting better. Going for trach. 2. History of deep venous thrombosis. 3. History of aspiration pneumonia, resolved. 4. Obesity. 5. Sacral decubitus ulcer. His COVID-19 test remains positive. The last one was 03/19. On 03/17, it was nondetectable between so we will check it again to proceed with the tracheostomy. I am not so sure what does not mean if he still positive clinically, the patient has been here since February 18 and we are at March 21, a total of 4 weeks. We will keep him on droplet isolation. MD HARVEY Alexis/FREDY /[id number]
[2020-03-22] VITALS (25 sets, daily range): BP systolic 102–161; BP diastolic 51–81
[2020-03-22 00:26] LABS: INR 1.05; PROTHROMBIN TIME 14.3 seconds (11.9-14.5)
[2020-03-22 00:27] LABS: PARTIAL THROMBOPLASTIN TIME 48.3 seconds (23.8-35.5)
[2020-03-22] MEDS: HEPARIN 25,000 UNIT 1,500 UNIT in DEXTROSE 5% 250ML 250 ML IV SCH ×2 (00:55→14:32)
[2020-03-22] MEDS: PROPOFOL IV EMULSION 10 MG/ML 50 ML VIAL IV SCH ×12 (01:55→22:30)
[2020-03-22 05:05] LABS: BASOPHILS % 0.4 % (0.0-1.0); EOSINOPHILS # (AUTO) 0.2 (0.0-0.4); EOSINOPHILS % 2.2 % (0.0-6.0); HEMATOCRIT 24.3 % (38.2-49.6); HEMOGLOBIN 7.1 g/dL (14.0-18.0); LYMPHOCYTES # (AUTO) 0.9 (1.0-3.2); LYMPHOCYTES % 10.4 % (18.0-39.1); MEAN CORPUSCULAR HEMOGLOBIN 24.5 pg (28-32); MEAN CORPUSCULAR HGB CONC 29.2 g/dL (31-35); MEAN CORPUSCULAR VOLUME 83.8 fL (81-99); MONOCYTES # (AUTO) 0.9 (0.2-0.8); MONOCYTES % 10.7 % (4.4-11.3); NEUTROPHILS # (AUTO) 6.2 (2.1-6.9); NEUTROPHILS % 75.6 % (38.7-80.0); PLATELET COUNT 443 x10e3/uL (140-360); RED CELL DISTRIBUTION WIDTH 15.9 % (11.7-14.4)
[2020-03-22 05:31] LABS: ANION GAP 7.8 mmol/L (8-16); BLOOD UREA NITROGEN 24 mg/dL (7-26); BUN/CREATININE RATIO 29 (6-25); CALCIUM 8.8 mg/dL (8.4-10.2); CARBON DIOXIDE 34 mmol/L (22-29); CHLORIDE 105 mmol/L (98-107); CREATININE, SERUM 0.83 mg/dL (0.72-1.25); EST GLOMERULAR FILTRATION RATE > 60 ML/MIN (60-); GLUCOSE 147 mg/dL (74-118); POTASSIUM 3.8 mmol/L (3.5-5.1); SODIUM 143 mmol/L (136-145)
[2020-03-22] MEDS: FENTANYL 2,000 MCG/250 ML BAG IV SCH (06:00)
[2020-03-22] MEDS: MIDAZOLAM HCL 5MG/ML 10ML VIAL 100 ML BAG IV PRN (07:36)
[2020-03-22] MEDS: PANTOPRAZOLE 40 MG 10ML VIAL IV SCH ×2 (08:24→16:24)
[2020-03-22] MEDS: SODIUM HYPOCHLORITE 0.25% 480 ML SOLN IR SCH (08:27)
[2020-03-22] MEDS: BALSAM PERU/CASTOR OIL 60 GM OINT...G. TP SCH (08:27)
--- NOTE | 2020-03-22 09:06 | Progress Note ---
DATE: 03/22/2020 CHIEF COMPLAINT/HISTORY OF PRESENT ILLNESS: A 35-year-old man, whose primary treating diagnosis is acute hypoxic respiratory failure secondary to ARDS from bilateral COVID-19 pneumonia. The patient has 2 COVID-19 tests that were drawn 2 days ago and today. Both tests are pending. Today's white blood cell count is 8100 with 75% segmented neutrophils. The patient's hemoglobin is 7.1 g/dL. The patient's potassium is 3.8. The patient's BUN and creatinine 24 and 0.83 respectively. Chest film performed yesterday on March 21, 2020, revealed unchanged advanced diffuse right lung airspace disease with slight improvement in the left lung airspace disease. REVIEW OF SYSTEMS: As per HPI. PHYSICAL EXAMINATION: VITAL SIGNS: He is sedated on ventilator AC mode, FiO2 of 60%, oxygen saturation 96%, temperature is 99.1, pulse 94, respiratory rate is 18, blood pressure 120/72, BMI 32. INTEGUMENT: Skin is warm and dry. Slight pallor. No jaundice or diaphoresis. The patient has 5 x 5 sacral decubitus ulcer with central eschar. The periphery of the wound has pink granulation tissue. HEENT: Anterior sclerae with moist mucous membranes. NECK: Supple. CARDIOVASCULAR: Tachycardic rate and rhythm. LUNGS: The patient has crackles in bilateral lung alvarado. ABDOMEN: Soft. EXTREMITIES: No edema. NEUROLOGIC: He is sedated on the ventilator. DIAGNOSES: 1. Acute hypoxic respiratory failure secondary to bilateral acute respiratory distress syndrome. 2. Acute respiratory distress syndrome secondary to bilateral coronavirus disease 2019 pneumonia. 3. Coronavirus disease 2019 pneumonia. 4. Bilateral gram-negative cristhian pneumonia, resolved. 5. Ventilator dependence. 6. Acute right lower extremity deep venous thrombosis. 7. Anemia secondary to chronic disease. 8. Unstageable sacral decubitus ulcer. PLAN: 1. We will follow the results of the COVID-19 testing. 2. We will proceed with tentative tracheostomy tube placement today. 3. We will ask Gastroenterology to place a G-tube. 4. The patient has been referred to a local long-term acute care facility. 5. Continue wound care to the patient's sacral decubitus ulcer. 6. Continue nutritional support via tube feeds. 7. Continue high-dose enoxaparin twice a day for the patient's acute right lower extremity deep venous thrombosis. 8. Continue supportive care. 9. Continue oxygenation via ventilator. 10. Continue weaning the patient off ventilator. I spent 30 minutes in the care of this intensive care unit patient. MD OLVIN Blackburn/MARSHALL /[id number]
--- NOTE | 2020-03-22 13:40 | NUR ---
BREATHING TRIAL DONE AT THIS TIME, PT ABLE TO FOLLOW SIMPLE COMMANDS AND ABLE TO TRACK. PT WAS ON CPAP FOR ABOUT 20 MIN HR WENT UP, AND BP INTO 180 RR30'S. ABG COLLECTED PT PLACED BACK ON [facility], WILL CONTINUE TO MONITOR CLOSELY.
[2020-03-22] MEDS ORDERED: HEPARIN 25,000 UNIT DRIP IV ONE (14:11)
[2020-03-22 14:23] LABS: ABG HCO3 33 mmol/L (22-26); ABG PCO2 68 mmHg (35-45)
[2020-03-22 14:24] LABS: ABG PO2 75 mmHg (80-105)
--- NOTE | 2020-03-22 16:32 | Progress Note ---
DATE: SUBJECTIVE: Mr. Love remains in intensive care unit on the ventilator today. I had a very long discussion with all parties including the hospital and the administration regarding the trach. I discussed with medical team at length. The patient is a 35-year-old male, who comes in with acute respiratory failure from ARDS from COVID pneumonia. He had DVT. He had aspiration. He is currently stable, in the weaning mode slowly, but he has been 4 weeks in the hospital. Sedated. The patient's day #33. PHYSICAL EXAMINATION: GENERAL: Intubated and sedated, on ventilator. HEENT: Not icteric. NECK: Supple. CHEST: Few crackles. COR: S1 and S2. No S3, S4, or murmurs. ABDOMEN: Soft. Bowel sounds present. No tenderness. EXTREMITIES: No edema. IMPRESSION: Repeatedly his COVID-19 has been positive. It is okay to proceed with the tracheostomy. Discussed with the old team, hopefully tomorrow, it was canceled today. From Infectious Disease point of view, proceed with tracheostomy and it is going to be long delay. I discussed at length the hospital stay and weaning, but I am hopeful. Time spent one hour. MD HARVEY Alexis/MARSHALL /[id number]
--- NOTE | 2020-03-22 23:00 | NUR ---
Spoke to patient's father. Updated him on current status, plan of care and pending surgery. Patient's father acknowledged, no questions at this time.
[2020-03-23] VITALS (25 sets, daily range): BP systolic 106–169; BP diastolic 54–89
[2020-03-23] MEDS: FENTANYL 2,000 MCG/250 ML BAG IV SCH ×2 (00:15→16:58)
--- NOTE | 2020-03-23 00:15 | NUR ---
Per Dr. Jackson order patient's tube feeding stopped at this time for pending surgery.
[2020-03-23] MEDS: PROPOFOL IV EMULSION 10 MG/ML 50 ML VIAL IV SCH ×12 (00:52→23:03)
--- NOTE | 2020-03-23 05:00 | NUR ---
Per Dr. Jackson's orders Heparin gtt stopped for pending surgery today.
[2020-03-23] MEDS: INSULIN REGULAR, HUMAN 3ML VL 100 UNIT in SODIUM CHLORIDE 0.9% 100 ML IV SCH ×2 (06:15)
[2020-03-23 06:45] LABS: BASOPHILS % 0.2 % (0.0-1.0); EOSINOPHILS # (AUTO) 0.2 (0.0-0.4); HEMATOCRIT 25.7 % (38.2-49.6); HEMOGLOBIN 7.7 g/dL (14.0-18.0); LYMPHOCYTES # (AUTO) 0.8 (1.0-3.2); MEAN CORPUSCULAR HEMOGLOBIN 24.8 pg (28-32); MEAN CORPUSCULAR VOLUME 82.6 fL (81-99); MONOCYTES # (AUTO) 0.8 (0.2-0.8); MONOCYTES % 9.3 % (4.4-11.3); NEUTROPHILS % 78.7 % (38.7-80.0); PLATELET COUNT 463 x10e3/uL (140-360); RED BLOOD COUNT 3.11 x10e6/uL (4.3-5.7); RED CELL DISTRIBUTION WIDTH 15.9 % (11.7-14.4)
[2020-03-23 07:07] LABS: ANION GAP 9.1 mmol/L (8-16); BLOOD UREA NITROGEN 22 mg/dL (7-26); BUN/CREATININE RATIO 29 (6-25); CALCIUM 8.9 mg/dL (8.4-10.2); CARBON DIOXIDE 33 mmol/L (22-29); CHLORIDE 105 mmol/L (98-107); CREATININE, SERUM 0.76 mg/dL (0.72-1.25); EST GLOMERULAR FILTRATION RATE > 60 ML/MIN (60-); GLUCOSE 151 mg/dL (74-118); POTASSIUM 4.1 mmol/L (3.5-5.1); SODIUM 143 mmol/L (136-145)
[2020-03-23] MEDS: PANTOPRAZOLE 40 MG 10ML VIAL IV SCH ×2 (08:42→16:58)
[2020-03-23] MEDS: SODIUM HYPOCHLORITE 0.25% 480 ML SOLN IR SCH (08:42)
[2020-03-23] MEDS: BALSAM PERU/CASTOR OIL 60 GM OINT...G. TP SCH (08:42)
[2020-03-23] MEDS: FUROSEMIDE INJ 10 MG/ML 4 ML VIAL IV SCH ×2 (09:51→21:42)
--- NOTE | 2020-03-23 10:14 | Diagnostic Imaging Report ---
X-ray chest AP portable Comparison: 03/20/2020 History: Intubated. ARDS. Findings: The endotracheal tube tip is seen above the thoracic inlet. It should be advanced approximately 4 cm. A nasogastric tube is seen coursing over the expected past. A left arm PICC line is unchanged. There is worsening of right pleural effusion. There is no significant change in the left pleural effusion. There is no pneumothorax. There is a marked in the opacity of the right upper lobe and right lower lobe. This is most suggestive of volume loss/atelectasis. There is improved aeration of the right mid and lower lung zones, probably the right middle lobe. There is slightly improved aeration of the left lower lung zone. The left upper and midlung zones remain unchanged. Other chronic findings include right clavicular healed fracture, degenerative changes. Impression: The endotracheal tube needs to be advanced as described above. There is redistribution of lung disease with possible increasing right pleural effusion. Signed by: Dionisio Palmer MD on 03/23/2020 10:11 AM
--- NOTE | 2020-03-23 10:25 | NUR ---
INFECTIOUS DISEASE PROGRESS NOTE SUBJECTIVE: Mr. Love remains in intensive care unit. REVIEW OF SYSTEMS: Could not be obtained. PHYSICAL EXAMINATION: GENERAL: He is intubated, sedated. VITAL SIGNS: 98.3, 139/75, 95, 20 HEENT: Not icteric, normo-cephalic NECK: Supple, no JVD CHEST: Crackles, diminished, vent support CV: S1, S2. No murmur. ABDOMEN: Soft, non distended, obese LABS: Repeat COVID positive, another repeat is pending. RADIOLOGY: Findings: The endotracheal tube tip is seen above the thoracic inlet. It should be advanced approximately 4 cm. A nasogastric tube is seen coursing over the expected past. A left arm PICC line is unchanged. There is worsening of right pleural effusion. There is no significant change in the left pleural effusion. There is no pneumothorax. There is a marked in the opacity of the right upper lobe and right lower lobe. This is most suggestive of volume loss/atelectasis. There is improved aeration of the right mid and lower lung zones, probably the right middle lobe. There is slightly improved aeration of the left lower lung zone. The left upper and midlung zones remain unchanged. Other chronic findings include right clavicular healed fracture, degenerative changes. Impression: The endotracheal tube needs to be advanced as described above. There is redistribution of lung disease with possible increasing right pleural effusion. IMPRESSION: The patient is a 35-year-old man. PMH T2DM, sacral wound. Presented to ED with headache, dizziness, fatigue and cough He had mild cough. Treating in the ICU for COVID19 pneumonia and complications associated. 1. COVID-19 infection. 2. Acute respiratory failure. 3. Acute respiratory distress syndrome. 4. Deep venous thrombosis. 5. Aspiration pneumonia vs COVID pneumonitis 6. Obesity 7. Stage 4 sacral wound PLAN: 03/23/20 Trach planned for today, was previously cancelled. Dr. Hillman has spoken to surgical team at length regarding. Afebrile, supportive care. Monitor off antibiotics. 03/21/20: Continuing to wean vent, CPAP trials. PCR pending this AM. Gram-neg cristhian PNA slowly resolving. Afebrile. Continue IV ABT as ordered. Continue supportive care per ICU team. 03/20/20: Repeat COVID PCR positive. Continue supportive care. Continue IV ABT as ordered. No Leukocytosis, remains afebrile. No plans for trach as of right now. Vent support per critical care medicine. Local care to sacral wound. Primary medicine ordered another PCR for tonight at 11pm. 03/19/20 Pending culture results on COVID19. No plans for trach as of today per RN, continues on vent support. Continues on Cefepime and Vancomycin. Stop date enter ed in orders. Discussed with Dr. Hillman
--- NOTE | 2020-03-23 10:35 | Progress Note ---
DATE: 03/23/2020 CHIEF COMPLAINT/HISTORY OF PRESENT ILLNESS: A 35-year-old man, whose primary treating diagnosis is acute hypoxic respiratory failure secondary to bilateral COVID pneumonia. The patient appears to have ARDS on chest film. Today's chest film performed on March 23, 2020, reveals persistent diffuse right lung airspace disease, which the radiologist felt reflected severe pulmonary edema and/or pneumonia. The left lung field also appears to have some edema. The patient's white blood cell count 8800 with 78% segmenters. Hemoglobin 7.7 g/dL. The patient's potassium is 4.1. The patient's BUN and creatinine are 22 and 0.76 respectively. The patient had a repeat COVID-19 test drawn on 03/20/2020, and it is still positive. PHYSICAL EXAMINATION: GENERAL: He is sedated and on a ventilator. He does follow simple commands. He does track with his eyes. VITAL SIGNS: Oxygen saturation is 96% on FiO2 of 45%, PEEP of 4, heart rate 92, blood pressure 160/78. BMI is 29.5. INTEGUMENT: Skin is warm and dry. Slight pallor. No jaundice or diaphoresis. The patient has a 5 x 5 cm unstageable sacral decubitus ulcer that has an eschar covering in the central area. The periphery is pink with evidence of granulation tissue. It is not worsening. HEENT: Anterior sclerae. He has orogastric and nasogastric tube in place. NECK: Supple. CARDIOVASCULAR: Tachycardic rate. Regular rhythm. LUNGS: The patient has crackles in bilateral lung alvarado. ABDOMEN: Soft. EXTREMITIES: No edema or deformity. NEUROLOGIC: He is paralyzed and on the ventilator. DIAGNOSES: 1. Acute hypoxic respiratory failure secondary to bilateral COVID pneumonia. 2. Acute pulmonary edema, likely. 3. Bilateral gram-negative cristhian pneumonia, resolved. 4. Bilateral COVID pneumonia. 5. Right lower extremity deep venous thrombosis. 6. Anemia secondary to chronic disease. 7. Unstageable sacral decubitus ulcer. PLAN: 1. Proceed with tracheostomy tube placement today. 2. We will resume tube feeds after the surgical procedure. 3. We will restart enoxaparin after surgical procedure for his right lower leg venous thrombosis. 4. Continue wound care to the sacral decubitus ulcer. 5. Follow hemoglobin and hematocrit. 6. We will initiate intravenous furosemide 80 mg twice every 12 hours for the patient's acute pulmonary edema. 7. Order 2D echocardiogram. 8. We will start nurse driven physical therapy later today. 9. We will proceed with post acute care namely long-term acute care facility transfer in the near future. 10. We will order G-tube to be placed in the near future. I spent 35 minutes in the care of this intensive care unit patient. MD OLVIN Blackburn/FREDY /[id number] SHERIF
--- NOTE | 2020-03-23 10:52 | Diagnostic Imaging Report ---
EXAMINATION: CHEST SINGLE (PORTABLE) INDICATION: Endotracheal tube placement. COMPARISON: Chest radiograph 03/23/2020. FINDINGS: LINES/TUBES:Interval advancement of endotracheal tube, which terminates 4.3 cm above the latasha. Left PICC terminates in the SVC. Enteric tube courses into the stomach, the tip is not seen. Overlying EKG leads. LUNGS:The lung volumes are low. Unchanged upper lung consolidation. Persistent patchy opacities in the bilateral lower lungs, likely with some component of atelectasis. PLEURA:Unchanged moderate right and small left pleural effusions. MEDIASTINUM:The cardiomediastinal silhouette appears unchanged in size and shape. BONES/SOFT TISSUES:No acute osseous abnormality. Remote healed right clavicular fracture. ABDOMEN:No free air under the diaphragm. IMPRESSION: Interval advancement of endotracheal tube. No evidence of pneumothorax. Low lung volumes with bilateral pulmonary opacities consistent with known atypical pneumonia, possibly with superimposed pulmonary edema. Unchanged moderate right and small left pleural effusions. Signed by: Dr. Yariel Almeida MD on 03/23/2020 10:48 AM
--- NOTE | 2020-03-23 12:22 | NUR ---
Updated clinical faxed to [facility] [phone]. Spoke with Anju at [facility]. States they are unable to accept COVID positive pts at this time.
--- NOTE | 2020-03-23 15:05 | Diagnostic Imaging Report ---
Ultrasound chest History: Effusion Technique: Multiple views of the right and left chest with a curvilinear low frequency transducer using grayscale technique. Findings: A [id number] right pleural effusion with an dense. Pleural thickening on the left with no effusion. Impression: Septated right pleural effusion, moderate in size. Signed by: Dionisio Palmer MD on 03/23/2020 3:02 PM
[2020-03-23] MEDS ORDERED: HEPARIN 25,000 UNIT DRIP IV ONE (15:46)
[2020-03-23] MEDS ORDERED: VANCOMYCIN 1GM/NS 250 ML 250 ML ONE (15:54)
[2020-03-23] MEDS: MIDAZOLAM HCL 5MG/ML 10ML VIAL 100 ML BAG IV PRN (15:59)
[2020-03-23] MEDS: VANCOMYCIN 1GM/NS 250 ML 250 ML IV SCH (16:00)
--- NOTE | 2020-03-23 16:04 | NUR ---
NEW CONSULT FOR CALLED SPOKE TO BRANDON Addendum: 03/23/20 at 1616 by Phyllis Allen RN 1615: SPOKE TO AWARE OF CONSULT
[2020-03-23] MEDS: MEROPENEM 500MG/ NS 50ML 50 ML IV SCH (17:28)
[2020-03-23] MEDS ORDERED: MEROPENEM 500MG 500 MG in SODIUM CHLORIDE 0.9% 50ML 50 ML IV SCH (18:00)
[2020-03-23] MEDS: HEPARIN 25,000 UNIT 1,500 UNIT in DEXTROSE 5% 250ML 250 ML IV SCH (18:21)
[2020-03-24] VITALS (25 sets, daily range): BP systolic 93–184; BP diastolic 51–92
[2020-03-24] MEDS: MEROPENEM 500MG/ NS 50ML 50 ML IV SCH ×4 (00:46→18:00)
[2020-03-24] MEDS: PROPOFOL IV EMULSION 10 MG/ML 50 ML VIAL IV SCH ×10 (00:47→21:41)
[2020-03-24] MEDS ORDERED: SODIUM CHLORIDE 0.9% 1000ML 1,000 ML ONE (00:54)
[2020-03-24] MEDS: VANCOMYCIN 1GM/NS 250 ML 250 ML IV SCH ×2 (04:41→16:21)
[2020-03-24] MEDS: FENTANYL 2,000 MCG/250 ML BAG IV SCH ×2 (04:42→07:20)
[2020-03-24 06:03] LABS: BASOPHILS % 0.1 % (0.0-1.0); EOSINOPHILS # (AUTO) 0.2 (0.0-0.4); EOSINOPHILS % 2.1 % (0.0-6.0); HEMATOCRIT 26.3 % (38.2-49.6); HEMOGLOBIN 7.8 g/dL (14.0-18.0); LYMPHOCYTES # (AUTO) 0.7 (1.0-3.2); MEAN CORPUSCULAR HEMOGLOBIN 24.6 pg (28-32); MEAN CORPUSCULAR HGB CONC 29.7 g/dL (31-35); MONOCYTES # (AUTO) 0.9 (0.2-0.8); MONOCYTES % 9.7 % (4.4-11.3); NEUTROPHILS # (AUTO) 7.7 (2.1-6.9); NEUTROPHILS % 80.6 % (38.7-80.0); PLATELET COUNT 420 x10e3/uL (140-360); RED BLOOD COUNT 3.17 x10e6/uL (4.3-5.7); RED CELL DISTRIBUTION WIDTH 15.9 % (11.7-14.4)
[2020-03-24 06:36] LABS: ALANINE AMINOTRANSFERASE 18 IU/L (0-55); ALBUMIN 1.9 g/dL (3.5-5.0); ALBUMIN/GLOBULIN RATIO 0.3 (0.8-2.0); ALKALINE PHOSPHATASE 135 IU/L (40-150); ANION GAP 10.9 mmol/L (8-16); BLOOD UREA NITROGEN 22 mg/dL (7-26); BUN/CREATININE RATIO 29 (6-25); CALCIUM 8.8 mg/dL (8.4-10.2); CARBON DIOXIDE 32 mmol/L (22-29); CHLORIDE 103 mmol/L (98-107); CREATININE, SERUM 0.76 mg/dL (0.72-1.25); EST GLOMERULAR FILTRATION RATE > 60 ML/MIN (60-); GLUCOSE 127 mg/dL (74-118); POTASSIUM 3.9 mmol/L (3.5-5.1); SODIUM 142 mmol/L (136-145)
[2020-03-24] MEDS: SODIUM HYPOCHLORITE 0.25% 480 ML SOLN IR SCH (07:53)
[2020-03-24] MEDS ORDERED: FENTANYL 2000MCG/NS 250 250 ML IV ONE (08:08)
[2020-03-24] MEDS: PANTOPRAZOLE 40 MG 10ML VIAL IV SCH ×2 (08:20→16:49)
[2020-03-24] MEDS: FUROSEMIDE INJ 10 MG/ML 4 ML VIAL IV SCH ×2 (08:20→20:51)
[2020-03-24] MEDS: HEPARIN 25,000 UNIT 1,500 UNIT in DEXTROSE 5% 250ML 250 ML IV SCH (08:41)
--- NOTE | 2020-03-24 08:52 | NUR ---
paged Dr Manan Rodriguez regarding scheduled procedures today
[2020-03-24 11:02] LABS: ABG HCO3 33 mmol/L (22-26); ABG PCO2 56 mmHg (35-45); ABG PH 7.37 (7.35-7.45); ABG PO2 95 mmHg (80-105)
--- NOTE | 2020-03-24 11:09 | Progress Note ---
DATE: 03/24/2020 CHIEF COMPLAINT/HISTORY OF PRESENT ILLNESS: This is a 35-year-old man, whose primary treating diagnosis is acute hypoxic respiratory failure secondary to bilateral COVID pneumonia. The patient is actually scheduled for tentative tracheostomy tube and G-tube placement later today. The patient did well overnight. However, they had increased sedation because he was wide awake and tachypneic. White blood cell count today is 9500 with 80% segmented neutrophils. Hemoglobin is 7.8 g/dL. The patient's BUN and creatinine are 22 and 0.76 and potassium 3.9. The patient has been afebrile for over 72 hours. The patient did undergo a chest x-ray on March 23, 2020, which revealed unchanged moderate right and small left pleural effusions. It also revealed bilateral pulmonary opacities, worse on the right. The patient underwent chest ultrasound yesterday to further elucidate the right-sided pleural effusion and it revealed a septated right pleural effusion, moderate in size with perfectly on the left no effusion. The patient had a B-type natriuretic peptide level drawn this morning and it was slightly elevated, at 118. REVIEW OF SYSTEMS: As per HPI. PHYSICAL EXAMINATION: GENERAL: He is sedated on the ventilator. VITAL SIGNS: Blood pressure 148/92, pulse 102, oxygen saturation of 92% on FiO2 of 50, respiratory rate is 14, and temperature 98.6. BMI 31. INTEGUMENT: Skin is warm and dry. Slight pallor. No jaundice or diaphoresis. He has 5 x 5 cm unstageable sacral decubitus ulcer with an eschar covering center. The periphery does have granulation tissue. It does not appear to be worsening. HEENT: Anicteric sclerae. Moist mucous membranes. He has orogastric and endotracheal tube in place. NECK: Supple. CARDIOVASCULAR: Tachycardic rate and rhythm. LUNGS: Crackles in the bilateral lung alvarado. ABDOMEN: Soft. Has bowel sounds. EXTREMITIES: No edema. NEUROLOGIC: He is sedated, on ventilator. DIAGNOSES: 1. Acute hypoxic respiratory failure secondary to bilateral COVID-19 pneumonia. 2. Bilateral COVID pneumonia. 3. Bilateral gram-negative cristhian pneumonia, resolved. 4. Right lower extremity deep venous thrombosis. 5. Anemia secondary to chronic disease. 6. Unstageable sacral decubitus ulcer. PLAN: 1. We will continue meropenem and vancomycin for the patient's pneumonia. 2. May consider right-sided thoracentesis. 3. Proceed with tentative tracheostomy tube placement today. 4. Proceed with tentative G-tube placement today. 5. LTAC referral has been made. 6. Once the patient undergoes these procedures in the next few days, the patient will start nurse-driven physical therapy. 7. Continue sedation. 8. We will continue intravenous heparin at this time for his right lower extremity deep venous thrombosis since he will be undergoing procedure later today, but afterwards he will be restarted on enoxaparin. 9. We will continue intravenous furosemide since the patient likely has acute pulmonary edema. I spent 35 minutes in the care of this intensive care unit patient. MD OLVIN Blackburn/FREDY /[id number] SHERIF
--- NOTE | 2020-03-24 11:31 | NUR ---
DISCUSSED PLAN OF CARE IN MDR'S; TRACH AND G TUBE PLANNED TODAY ADMINISTRATION, [employer]PER[employer] AND LTAC'S WORKING ON PT'S NEXT LEVEL OF CARE
--- NOTE | 2020-03-24 13:15 | NUR ---
heparin gtt stopped for surgery today
--- NOTE | 2020-03-24 13:24 | NUR ---
[facility] COMPLAINT/HISTORY OF PRESENT ILLNESS: This is a 35-year-old man, whose primary treating diagnosis is acute hypoxic respiratory failure secondary to bilateral COVID pneumonia. The patient is actually scheduled for tentative tracheostomy tube and G-tube placement later today. The patient did well overnight. However, they had increased sedation because he was wide awake and tachypneic. White blood cell count today is 9500 with 80% segmented neutrophils. Hemoglobin is 7.8 g/dL. The patient's BUN and creatinine are 22 and 0.76 and potassium 3.9. The patient has been afebrile for over 72 hours. The patient did undergo a chest x-ray on March 23, 2020, which revealed unchanged moderate right and small left pleural effusions. It also revealed bilateral pulmonary opacities, worse on the right. The patient underwent chest ultrasound yesterday to further elucidate the right-sided pleural effusion and it revealed a septated right pleural effusion, moderate in size with perfectly on the left no effusion. The patient had a B-type natriuretic peptide level drawn this morning and it was slightly elevated, at 118.
--- NOTE | 2020-03-24 13:25 | NUR ---
REVIEW OF SYSTEMS: Could not be obtained. PHYSICAL EXAMINATION: GENERAL: He is intubated, sedated. VITAL SIGNS: 98.3, 139/75, 95, 20 HEENT: Not icteric, normo-cephalic NECK: Supple, no JVD CHEST: Crackles, diminished, vent support CV: S1, S2. No murmur. ABDOMEN: Soft, non distended, obese LABS: Repeat COVID positive, another repeat is pending. RADIOLOGY: Findings: The endotracheal tube tip is seen above the thoracic inlet. It should be advanced approximately 4 cm. A nasogastric tube is seen coursing over the expected past. A left arm PICC line is unchanged. There is worsening of right pleural effusion. There is no significant change in the left pleural effusion. There is no pneumothorax. There is a marked in the opacity of the right upper lobe and right lower lobe. This is most suggestive of volume loss/atelectasis. There is improved aeration of the right mid and lower lung zones, probably the right middle lobe. There is slightly improved aeration of the left lower lung zone. The left upper and midlung zones remain unchanged. Other chronic findings include right clavicular healed fracture, degenerative changes. Impression: The endotracheal tube needs to be advanced as described above. There is redistribution of lung disease with possible increasing right pleural effusion. IMPRESSION: The patient is a 35-year-old man. PMH T2DM, sacral wound. Presented to ED with headache, dizziness, fatigue and cough He had mild cough. Treating in the ICU for COVID19 pneumonia and complications associated. 1. COVID-19 infection. 2. Acute respiratory failure. 3. Acute respiratory distress syndrome. 4. Deep venous thrombosis. 5. Aspiration pneumonia vs COVID pneumonitis 6. Obesity 7. Stage 4 sacral wound [id number]
--- NOTE | 2020-03-24 14:27 | NUR ---
Nutrition Intervention Note RD Recommendation(s) for Physician: - Recommend continuing Vital High Protein. Recommend a goal rate of 45 mL/hr at this time due to current propofol rate (provides 1080 kcal, 95 g protein, and 903 mL water per day). - current propofol rate provides an additional 987 kcal - Water flushes per MD. Plan of Care: RD following, monitoring for tolerance and adequacy. TF recs. Nutrition reason for involvement: follow up RD Assessment 03/24: Follow up. Pt remains intubated and sedated. Pt is currently receiving propofol @ 37.4 ml/hr per RN which provides 987 kcal. Per MD note, pt is planned to receive a trach and PEG today; therefore, tube feeding is on hold at this time. Will continue to monitor. 03/21: Follow up. Pt remains intubated and sedated, currently on Propofol and Versed. Pt off, CPAP trials, plan to resume TF per RN. Plan for trach placement tomorrow. Chart reviewed. Discussed TF rec's with RN on unit as pt not meeting protein needs and Propofol providing additional kcal. Will continue to monitor. 03/17: Follow up. Pt remains intubated and is sedated on propofol @ 21.8 mL/hr which provides 575 kcal. Pt is tolerating tube feeding and is receiving Nepro @ 40 mL/hr. Recommend modifying formula to Vital High Protein. Informed RN of recommendation. Will continue to monitor. 03/13: Follow up. Pt remains intubated and sedated, off Propofol and continues on Fentanyl drip. Pt continues on TF of Nepro at 40 ml/hr, no dialysis initiated and renal trend improving. TF meeting current estimated needs. Current rec's remain appropriate. Chart reviewed. Will continue to monitor. 03/08: Follow up. Pt remains intubated and sedated on Propofol and Fentanyl drips. No pressor support. Pt on TF of Nepro at 40 ml/hr. Renal trend noted, no dialysis currently. TF meeting estimated kcal and protein needs per current renal trend. TF rec's provided pending dialysis initiation and continued Propofol use. Chart reviewed. Will continue to monitor. 03/03: Follow up. Pt remains mechanically ventilated. Pt is receiving Glucerna 1.2 @ 40 ml/hr per chart. Pt is receiving 26.7 mL/hr of propofol which provides 705 kcal. Recommend modifying formula to Vital High Protein. Will continue to monitor. 02/28: Follow up. Pt remains intubated, sedated with Propofol and fentanyl drip. Pt not currently on pressors. TF currently off per am documentation, previously infusing at 20 ml/hr on 02/27 and 02/26- not meeting needs. Pt with increased water flushes per MD /2 hypernatremia. Chart reviewed. TF rec's relayed to RN. Will continue to monitor. 02/24: Follow up. Pt remains mechanically ventilated. Per RN, pt is tolerating tube feeding of Glucerna 1.2 @ 40 mL/hr. Recommend modifying formula to Vital High Protein. RD recommendation provided to nurse. Will continue to monitor. 02/20: 35 YOM admitted for hypoxemia, hyperglycemia with PMH listed below. Physical visit was deferred d/t hospitals infection disease policy. Pt is intubated on fentanyl and propofol. Pt is not on pressors as of now. The nurse reported the pt was ordered pressors over the weekend but has not needed it today. Nurse reported possible ARDS, they have not had to place the pt in the prone position yet. Pt was ordered Glucerna 1.2 at 20 ml/hr advance to goal rate of 60 ml/hr with 100 ml of water every 4 hours (1728 kcal, 86gram protein) . RD recommendations provided above and given to nurse. Unaware of propofol rate d/t not being able to enter the room and nurse not knowing at current time. Nurse reported the pt is currently on 20 ml/hr of Glucerna 1.2. Will continue to monitor. Principal Problems/Diagnoses: hypoxemia, hyperglycemia PMH: Uncontrolled type 2 diabetes mellitus. GI: last recorded BM 03/20 Skin: unstagable sacral PU Labs: 03/24: Na 142, K 3.9, BUN 22, Cr 0.76, Glu 127 03/21: Na 145, K 3.9, BUN 22, Cr 0.88, Gluc 186, POC Gluc 98- 200 03/17: Na 144, K 3.8, BUN 26, Cr 0.86. Glu 200 03/13: Na 141, K 3.6, BUN 39, Cr 1.13, Gluc 245, POC Gluc 261-286 03/08: Na 142, K 4.4, BUN 54, Cr 1.42, Gluc 323, POC Gluc 316-336 Meds: Propofol at 37.4 ml/hr (providing 987 lipid kcal/day), meropenem, heparin, lasix, protonix,, vancomycin, insulin Ht: 71 in Wt: 225 lbs (03/24) 220 lbs (03/17) 212 lbs (02/27) 215 lbs (02/23) 213 lb (02/20) BMI: 31.4 kg/m^2 IBW: 172 lbs Malnutrition Evaluation (03/21) -unable to perform nutrition assessment, isolation precautions for COVID-19 Nutrition Prescription (Diet Order): Vital High Protein @ 55 mL/hr Estimated Nutritional Needs: Calories: 1178-3131 kcal/day (20- 25 kcal/kg/day) Weight used : IBW (78 kg) Protein : 94 156 g protein/day (1.2-2 gram/kg/day ) Weight used: IBW (78 kg) Diet Adequacy: tube feeding is on hold at this time Diet Education Needs Assessment: Diet education not indicated, patient on temporary/transition diet. Nutrition Care Level: moderate Nutrition Diagnosis: Inadequate energy intake related to medical condition as evidenced by the pt needing mechanical ventilation and need for TF to meet energy and protein needs. Goal: Patient will meet 75-100% of estimated needs by follow up Progress: progressing Interventions: -TF (Composition, Rate, Route),Recommended Modifications, Collaboration with other providers Monitoring/Evaluation: -Total energy intake, Total protein intake, Formula/Solution Signed: Hazel Alonzo RD, LD
[2020-03-24] MEDS: MIDAZOLAM HCL 5MG/ML 10ML VIAL 100 ML BAG IV PRN (15:00)
[2020-03-24] MEDS ORDERED: ROCURONIUM BROMIDE 10 MG/ML 5ML VIAL IV ONE (15:02)
[2020-03-24] MEDS ORDERED: SEVOFLURANE INHAL SOLN 250 ML PEN BTL ONE (15:02)
--- NOTE | 2020-03-24 16:40 | Progress Note ---
DATE: SUBJECTIVE: Mr. Love remains in intensive care unit. The plan for him to go for tracheostomy today as well as PEG tube placement today. Also, the issue with this patient is there is concern he may have pleural effusion and discussed with Dr. Chau. Discussed with Critical Care. The patient who is a 35-year-old, who has been here for the last 30 days. He came with in COVID-19. The patient is currently on a ventilator. His cultures have been negative. LABORATORY DATA: His white count is 9.5 with hemoglobin of 7.8. His sodium is 142, potassium 3.9, creatinine 0.76. PHYSICAL EXAMINATION: GENERAL: He is currently alert. He is sedated, intubated. HEENT: Not icteric. NECK: Supple. CHEST: A few crackles. COR: S1, S2. ABDOMEN: Soft. IMPRESSION: 1. COVID-19, present on admission. 2. Acute respiratory distress syndrome. 3. Acute kidney injury, resolved. 4. Going for tracheostomy and PEG tube placement today. 5. Continuously to have positive PCR. I do not know what does that mean. At the present time, we do not know if that means he is infectious or not. We will continue with the droplet isolation. 6. Concern about possibility of empyema. We will get CT of the chest. 7. Cardiovascular surgery was consulted. Continue with antibiotic for the time being. We will get CT of the chest and possible ultrasound-guided aspiration. MD HARVEY Alexis/MODL /[id number]
[2020-03-24] MEDS ORDERED: FENTANYL CITRATE INJ 2,000 MCG in SODIUM CHLORIDE 0.9% 250ML 210 ML IV PRN (17:00)
[2020-03-24] MEDS ORDERED: BUPIVACAINE 0.5%/EPI 30 ML SDV INJ ONE (17:14)
[2020-03-24] MEDS ORDERED: FENTANYL CITRATE/PF 100MCG/2 ML INJ ONE (18:34)
[2020-03-24] MEDS ORDERED: MIDAZOLAM HCL 5 MG/ML VIAL ONE (18:34)
--- NOTE | 2020-03-24 19:09 | NUR ---
pt is in or at this time.
[2020-03-25] VITALS (26 sets, daily range): BP systolic 93–154; BP diastolic 51–91
[2020-03-25] MEDS: PROPOFOL IV EMULSION 10 MG/ML 50 ML VIAL IV SCH ×5 (00:34→22:40)
[2020-03-25] MEDS: MEROPENEM 500MG/ NS 50ML 50 ML IV SCH ×4 (00:34→17:30)
--- NOTE | 2020-03-25 01:56 | Operative Report ---
DATE OF PROCEDURE: 03/24/2020 SURGEON: Osmin Jackson MD PREOPERATIVE DIAGNOSIS: Coronavirus disease 2019 pneumonia. POSTOPERATIVE DIAGNOSIS: Coronavirus disease 2019 pneumonia. OPERATIVE PROCEDURE: Tracheostomy. TEST CENTER MANAGER: Khurram. ANESTHESIA: General, Dr. Jacobo. INDICATIONS: A 35-year-old male with history of COVID-19 pneumonia, on ventilator for 3+ weeks. Family has consented for placement of tracheostomy for ventilatory management. Attendant risks discussed with the family. DESCRIPTION OF PROCEDURE: The patient was brought to the operating room on a stretcher, according to COVID-19 protocol. The team has been gowned up in a protective fashion according to protocol. The neck is extended with a shoulder lift and prepped with alcohol. It was then draped in a sterile fashion. We made a collar incision approximately 2 cm above the suprasternal notch, 4 cm in length, extended through skin and subcutaneous tissue and platysma. The strap muscle was identified and split in the middle with dissection carried straight down to the trachea. Piece of thyroid tissue was controlled with Harmonic Scalpel to expose the anterior surface of the trachea. We then selected the space between the 3rd and 4th tracheal ring and a transverse incision was made with the 11 blade scalpel, the length of the anterior surface of the trachea. The 4th ring was cut with scissors bilaterally to create a generous tracheotomy. An 8-Arabic tracheostomy tube was inserted without any problems and balloon inflated. The tracheostomy tube was connected to the ventilator registering good gas exchange. The tracheostomy tube was then anchored to the skin with 2-0 Prolene stitches. The tracheal tie was used to wrap the tube around the neck snuggly without undue tension. The patient then tolerated the procedure well, was transported to ICU. Blood loss was 3 mL. Osmin Jackson MD DNL/MODL /[id number]
--- NOTE | 2020-03-25 02:12 | Operative Report ---
DATE OF PROCEDURE: 03/24/2020 SURGEON: Pablo Rodriguez MD PROCEDURE: EGD with PEG tube insertion. The patient with COVID-19, respiratory failure, for EGD and PEG to be followed by tracheostomy. MEDICATIONS: The patient was done under general endotracheal anesthesia, please see anesthesiologist's note. PROCEDURE IN DETAIL: With the patient in the supine position, a flexible fiberoptic Olympus gastroscope was introduced into the esophagus under direct visualization without any difficulty. There were some patchy erythema noted in distal esophagus. Mucosa overlying the antrum and the body revealed some diffuse erythema. Pylorus was of normal contour and shape, it was intubated with ease and the scope was advanced all the way to the second portion of the duodenum. The scope was then withdrawn slowly. Mucosa overlying the proximal second portion and the duodenal bulb appeared to be within normal limits. The scope was then withdrawn back into the stomach and retroflexed, and mucosa overlying the fundus and the cardia appeared to be within normal limits. The scope was then straightened out and after localization of a safe entry points per external digital palpation and transabdominal illumination, PEG tube insertion was carried out in the usual fashion. The scope was subsequently withdrawn after documenting a good positioning of the intragastric bumper. The patient tolerated the procedure well. IMPRESSION: 1. Distal esophagitis. 2. Gastritis. 3. PEG tube insertion carried out in the usual fashion. The patient tolerated the procedure well. PLAN: G-tube to drain to gravity and a Servin bag x24 hours then can use. Abdominal binder. Pablo Rodriguez MD [facility]/[place]EDY /[id number] cc: MD Gino Chatman MD
[2020-03-25] MEDS: FENTANYL 2,000 MCG/250 ML BAG IV PRN ×2 (04:23→17:47)
[2020-03-25] MEDS: VANCOMYCIN 1GM/NS 250 ML 250 ML IV SCH ×3 (04:42→16:22)
[2020-03-25 05:16] LABS: BASOPHILS % 0.2 % (0.0-1.0); EOSINOPHILS # (AUTO) 0.2 (0.0-0.4); EOSINOPHILS % 1.6 % (0.0-6.0); HEMOGLOBIN 7.9 g/dL (14.0-18.0); LYMPHOCYTES # (AUTO) 0.7 (1.0-3.2); LYMPHOCYTES % 6.5 % (18.0-39.1); MEAN CORPUSCULAR HEMOGLOBIN 24.8 pg (28-32); MEAN CORPUSCULAR HGB CONC 29.3 g/dL (31-35); MEAN CORPUSCULAR VOLUME 84.9 fL (81-99); MONOCYTES # (AUTO) 1.1 (0.2-0.8); MONOCYTES % 10.5 % (4.4-11.3); NEUTROPHILS # (AUTO) 8.6 (2.1-6.9); NEUTROPHILS % 80.7 % (38.7-80.0); PLATELET COUNT 415 x10e3/uL (140-360); RED BLOOD COUNT 3.18 x10e6/uL (4.3-5.7); RED CELL DISTRIBUTION WIDTH 15.9 % (11.7-14.4)
[2020-03-25 05:37] LABS: ANION GAP 12.8 mmol/L (8-16); BLOOD UREA NITROGEN 23 mg/dL (7-26); BUN/CREATININE RATIO 28 (6-25); CALCIUM 8.9 mg/dL (8.4-10.2); CARBON DIOXIDE 34 mmol/L (22-29); CHLORIDE 103 mmol/L (98-107); CREATININE, SERUM 0.81 mg/dL (0.72-1.25); EST GLOMERULAR FILTRATION RATE > 60 ML/MIN (60-); GLUCOSE 84 mg/dL (74-118); POTASSIUM 3.8 mmol/L (3.5-5.1); SODIUM 146 mmol/L (136-145)
[2020-03-25] MEDS: PANTOPRAZOLE 40 MG 10ML VIAL IV SCH ×2 (07:54→17:30)
[2020-03-25] MEDS: SODIUM HYPOCHLORITE 0.25% 480 ML SOLN IR SCH (07:54)
[2020-03-25] MEDS: FUROSEMIDE INJ 10 MG/ML 4 ML VIAL IV SCH ×2 (07:54→21:50)
--- NOTE | 2020-03-25 09:49 | Diagnostic Imaging Report ---
Examination: Single AP view of the chest. COMPARISON: AP chest 03/23/2020 INDICATION: Follow-up respiratory failure IMPRESSION: 1. Lines and Tubes: Interval removal of previously visualized endotracheal and enteric tubes. Tracheostomy tube in place. Unchanged left-sided PICC line. 2. Lungs are hypoinflated. Interval improvement in right upper and lateral lower lobe airspace opacities. No interval change in left lower lobe patchy airspace and dense retrocardiac opacities, which may reflect multifocal pneumonia and/or edema. Unchanged bilateral pleural effusions. 3. Cardiomediastinal silhouette is normal. Central pulmonary venous congestion and perihilar interstitial edema, which is slightly improved.. 4. No acute bony abnormalities. Signed by: Dr. Guy Ramirez M.D. on 03/25/2020 9:46 AM
--- NOTE | 2020-03-25 09:58 | Progress Note ---
DATE: SUBJECTIVE: The patient for the tracheostomy yesterday. He is currently on . His Diprivan was held temporarily for a spontaneous breathing trial. He is now on CPAP of 5 and pressure support of 10. He is breathing 14 to 16 times a minute with tidal volumes of 400 to 500 mL. PHYSICAL EXAMINATION: VITAL SIGNS: The patient is afebrile. The vital signs are stable. The blood pressure is 122/71 and saturation is 97%. He is on 50%. He is on pressure support and CPAP. HEENT: Shows no facial swelling or erythema. Tracheostomy is in good position. CARDIAC: Reveals regular rate and rhythm with normal S1, S2. LUNGS: Auscultation of lungs reveals rhonchorous breath sounds bilaterally. There is no wheezing. ABDOMEN: Soft, nontender. There is no rebound or guarding. EXTREMITIES: Show no leg edema or calf tenderness. There is no cyanosis or clubbing. SKIN: Shows no rashes. NEUROLOGICAL: Shows the patient to be sedated, but is arousable and we stopped the sedation. LABORATORY DATA: White blood cell count is 10.6 and hemoglobin is 7.9. The platelet count is 415. The BUN to creatinine ratio is normal. The sodium is 146. IMPRESSION: 1. Acute respiratory failure. 2. COVID-19 infection. 3. Sacral decubitus ulcer. 4. Deep vein thrombosis. 5. Myopathy of critical illness. 6. Right pleural effusion. PLAN: 1. Continue spontaneous breathing trial as tolerated. 2. Repeat chest x-ray and ABG. 3. Depending on progress, the patient may require a thoracentesis on the right side. 4. Continue current antibiotics and await culture results. 5. Wound care. 6. Physical therapy. 7. Resume Lovenox. Case discussed with nursing, Respiratory, Infectious Disease, and Internal Medicine. Severiano Crow MD [facility]/[place] /[id number]
[2020-03-25] MEDS: ENOXAPARIN SODIUM INJ 100 MG/ML SYR SC SCH ×2 (11:03→22:00)
--- NOTE | 2020-03-25 16:00 | NUR ---
VANC TROUGH TODAY 19.5, AL,PA NOTIFIED. NEW ORDERS TO CHANGE DOSE
--- NOTE | 2020-03-25 18:29 | NUR ---
PATIENT TOLERATED CPAP SBT [id number] X1 HR. MINIMAL CHANGES IN VITAL SIGNS. ABG DRAWN AND DR CABRAL NOTIFIED. PATIENT AWAKE ALERT AND NODDING TO QUESTIONS
[2020-03-26] VITALS (26 sets, daily range): BP systolic 97–173; BP diastolic 50–91
[2020-03-26] MEDS: PROPOFOL IV EMULSION 10 MG/ML 50 ML VIAL IV SCH ×2 (00:30→06:25)
[2020-03-26] MEDS: MEROPENEM 500MG/ NS 50ML 50 ML IV SCH ×3 (00:50→11:20)
[2020-03-26] MEDS ORDERED: VANCOMYCIN 300 ML IV SCH (04:00)
[2020-03-26] MEDS: FENTANYL 2,000 MCG/250 ML BAG IV PRN (04:10)
--- NOTE | 2020-03-26 04:15 | NUR ---
Dr. Manan Rodriguez rounded on patient and ordered for Tube Feed, Vital HP to be restarted at 25 ml/hr with 110 mL H2O flushes q4H. Increase feed rate as tolerated to goal rate of 55 ml/hr. Tube feeds restarted at 0415.
[2020-03-26 05:24] LABS: BASOPHILS % 0.1 % (0.0-1.0); EOSINOPHILS # (AUTO) 0.1 (0.0-0.4); EOSINOPHILS % 0.7 % (0.0-6.0); HEMATOCRIT 25.2 % (38.2-49.6); HEMOGLOBIN 7.2 g/dL (14.0-18.0); LYMPHOCYTES # (AUTO) 0.7 (1.0-3.2); LYMPHOCYTES % 9.1 % (18.0-39.1); MEAN CORPUSCULAR HEMOGLOBIN 24.7 pg (28-32); MEAN CORPUSCULAR HGB CONC 28.6 g/dL (31-35); MEAN CORPUSCULAR VOLUME 86.3 fL (81-99); MONOCYTES # (AUTO) 0.9 (0.2-0.8); MONOCYTES % 10.9 % (4.4-11.3); NEUTROPHILS # (AUTO) 6.4 (2.1-6.9); PLATELET COUNT 347 x10e3/uL (140-360); RED BLOOD COUNT 2.92 x10e6/uL (4.3-5.7); RED CELL DISTRIBUTION WIDTH 15.8 % (11.7-14.4)
[2020-03-26 05:55] LABS: ANION GAP 17.9 mmol/L (8-16); BLOOD UREA NITROGEN 28 mg/dL (7-26); BUN/CREATININE RATIO 30 (6-25); CALCIUM 8.4 mg/dL (8.4-10.2); CARBON DIOXIDE 29 mmol/L (22-29); CHLORIDE 105 mmol/L (98-107); CREATININE, SERUM 0.93 mg/dL (0.72-1.25); EST GLOMERULAR FILTRATION RATE > 60 ML/MIN (60-); GLUCOSE 112 mg/dL (74-118); POTASSIUM 3.9 mmol/L (3.5-5.1); SODIUM 148 mmol/L (136-145)
--- NOTE | 2020-03-26 06:12 | Diagnostic Imaging Report ---
EXAMINATION: CHEST SINGLE (PORTABLE) INDICATION: ^Mechanical Vent ^[id number] ^0500 ^Y COMPARISON: 03/25/2020 FINDINGS: AP view TUBES and LINES: Unchanged tracheostomy tube. Unchanged left upper extremity PICC. LUNGS: Low lung volumes. Mild interval increase in bilateral pulmonary airspace disease. PLEURA: Unchanged small pleural effusions, right greater than left. HEART AND MEDIASTINUM: Stable cardiac silhouette. Unchanged pulmonary vascular fullness. BONES AND SOFT TISSUES: No acute osseous lesion. Soft tissues are unremarkable. UPPER ABDOMEN: No free air under the diaphragm. IMPRESSION: Mild increase in diffuse pulmonary airspace disease most suggestive of edema. Multifocal pneumonia may appear similar. Signed by: Tone Mcmanus MD on 03/26/2020 6:08 AM
[2020-03-26] MEDS: INSULIN REGULAR, HUMAN 3ML VL 100 UNIT in SODIUM CHLORIDE 0.9% 100 ML IV SCH ×2 (06:25)
--- NOTE | 2020-03-26 08:12 | NUR ---
CPAP TRIAL STARTED 739. SEDATION ON HOLD SINCE 729
[2020-03-26] MEDS: FUROSEMIDE INJ 10 MG/ML 4 ML VIAL IV SCH (08:25)
[2020-03-26] MEDS: SODIUM HYPOCHLORITE 0.25% 480 ML SOLN IR SCH (08:25)
[2020-03-26] MEDS: PANTOPRAZOLE 40 MG 10ML VIAL IV SCH ×2 (08:25→17:09)
[2020-03-26] MEDS: ENOXAPARIN SODIUM INJ 100 MG/ML SYR SC SCH ×2 (08:43→22:45)
--- NOTE | 2020-03-26 08:44 | NUR ---
PATIENT TOLERATING CPAP WEANING TRIAL. TUBE FEED ON HOLD Addendum: 03/26/20 at 1043 by Janelle Elias RN patient tolerated cpap 1 hr and 50 minutes total. rr 16 and all other vital signs stable.
--- NOTE | 2020-03-26 10:57 | Progress Note ---
DATE: Pulmonary Critical Care Progress Note SUBJECTIVE: The patient was placed on spontaneous breathing trial today. He lasted for 90 minutes with the respiratory rate of 15 and tidal volumes in the 400 to 500 range. When his sedation is stopped, he wakes up. He does follow commands. He is not having any fevers. He did start enteral feedings through the new PEG. PHYSICAL EXAMINATION: VITAL SIGNS: The blood pressure is 143/79 and saturation is 95%. The patient is afebrile. He is currently on a PRVC mode of ventilation with 5 of PEEP and 45% FiO2. HEENT: Shows no facial swelling or erythema. LYMPHATIC: Shows no submandibular, cervical, or supraclavicular adenopathy. There is a tracheostomy in good position. The site looks clean. There is no drainage. CARDIAC: Reveals a regular rate and rhythm with normal S1 and S2. LUNGS: Auscultation of lungs reveals clear breath sounds bilaterally. There is no wheezing. ABDOMEN: Soft and nontender. There is a feeding tube in place. There is a PICC line in place. EXTREMITIES: There is 1 to 2+ leg edema. LABORATORY DATA: The BUN to creatinine ratio is 28 to 0.93. The sodium is 148 and the glucose is 139. The white blood cell count is 8.06 and the hemoglobin is 7.2. The platelet count is 347. RADIOGRAPHIC DATA: Show some mild improvement in bilateral infiltrates. IMPRESSION: 1. Acute respiratory failure. 2. COVID-19 infection. 3. Sacral decubitus ulcer. 4. Deep vein thrombosis. 5. Myopathy of critical illness. 6. Diabetes. PLAN: 1. Continue spontaneous breathing trials every day as tolerated. 2. Continue Lovenox. 3. Restart feedings. 4. Increase free water through feeding tube. 5. Decrease Lasix to once a day. 6. Discussed wound care with Dr. Pritchard and wound care nurse. 7. Physical therapy. 8. Complete antibiotics for possible superimposed bacterial infection. 9. Case discussed with father, Respiratory, nursing, and Infectious Disease. Greater than 35 minutes in direct critical care time. MD MUNA Ramos/[facility] /[id number]
[2020-03-26 11:56] LABS: ABG HCO3 32 mmol/L (22-26); ABG PCO2 66 mmHg (35-45)
[2020-03-26] MEDS: LABETALOL HCL 5 MG/ML 20ML VIAL IV PRN (13:10)
[2020-03-26 16:38] LABS: HEMATOCRIT 25.2 % (38.2-49.6); HEMOGLOBIN 7.4 g/dL (14.0-18.0)
[2020-03-26] MEDS: ACETAMINOPHEN 325 MG TAB PO PRN (17:31)
[2020-03-26] MEDS: PROPOFOL IV EMULSION 10 MG/ML 50 ML VIAL IV PRN (23:15)
[2020-03-27] VITALS (23 sets, daily range): BP systolic 79–188; BP diastolic 43–93
[2020-03-27] MEDS: FENTANYL 2,000 MCG/250 ML BAG IV PRN (01:42)
[2020-03-27] MEDS: PROPOFOL IV EMULSION 10 MG/ML 50 ML VIAL IV PRN ×4 (04:30→21:10)
[2020-03-27 05:43] LABS: BASOPHILS % 0.2 % (0.0-1.0); EOSINOPHILS # (AUTO) 0.1 (0.0-0.4); EOSINOPHILS % 1.5 % (0.0-6.0); HEMATOCRIT 25.2 % (38.2-49.6); HEMOGLOBIN 7.4 g/dL (14.0-18.0); LYMPHOCYTES # (AUTO) 0.7 (1.0-3.2); MEAN CORPUSCULAR HEMOGLOBIN 24.5 pg (28-32); MEAN CORPUSCULAR HGB CONC 29.4 g/dL (31-35); MEAN CORPUSCULAR VOLUME 83.4 fL (81-99); MONOCYTES # (AUTO) 0.7 (0.2-0.8); MONOCYTES % 12.1 % (4.4-11.3); NEUTROPHILS # (AUTO) 4.5 (2.1-6.9); NEUTROPHILS % 73.7 % (38.7-80.0); PLATELET COUNT 394 x10e3/uL (140-360); RED BLOOD COUNT 3.02 x10e6/uL (4.3-5.7); RED CELL DISTRIBUTION WIDTH 16.1 % (11.7-14.4)
[2020-03-27] MEDS: LABETALOL HCL 5 MG/ML 20ML VIAL IV PRN (05:44)
[2020-03-27 05:45] LABS: INR 1.11
[2020-03-27 05:56] LABS: ALANINE AMINOTRANSFERASE 12 IU/L (0-55); ALBUMIN 1.9 g/dL (3.5-5.0); ALBUMIN/GLOBULIN RATIO 0.4 (0.8-2.0); ALKALINE PHOSPHATASE 110 IU/L (40-150); ANION GAP 12.4 mmol/L (8-16); BLOOD UREA NITROGEN 25 mg/dL (7-26); BUN/CREATININE RATIO 28 (6-25); CALCIUM 8.7 mg/dL (8.4-10.2); CARBON DIOXIDE 35 mmol/L (22-29); CHLORIDE 105 mmol/L (98-107); CREATININE, SERUM 0.89 mg/dL (0.72-1.25); EST GLOMERULAR FILTRATION RATE > 60 ML/MIN (60-); GLUCOSE 137 mg/dL (74-118); POTASSIUM 3.4 mmol/L (3.5-5.1); SODIUM 149 mmol/L (136-145)
--- NOTE | 2020-03-27 06:26 | Diagnostic Imaging Report ---
EXAMINATION: CHEST SINGLE (PORTABLE) INDICATION: ^resp failure ^[id number] ^0510 COMPARISON: 03/26/2020 FINDINGS: AP view TUBES and LINES: Unchanged tracheostomy tube. LUNGS: No significant interval change in bilateral patchy airspace disease, notably in the right upper lobe. PLEURA: Probable small pleural effusions are unchanged. HEART AND MEDIASTINUM: The cardiomediastinal silhouette is unremarkable. BONES AND SOFT TISSUES: No acute osseous lesion. Soft tissues are unremarkable. UPPER ABDOMEN: No free air under the diaphragm. IMPRESSION: Unchanged diffuse bilateral pulmonary airspace disease suggestive of multifocal pneumonia and/or pulmonary edema. Signed by: Tone Mcmanus MD on 03/27/2020 6:22 AM
--- NOTE | 2020-03-27 07:30 | NUR ---
PT NOTED TO HAVE SOME OOZING FROM AROUND TRACH, DRIED BLOOD NOTED ALL AROUND COLLAR AND FRESH BLOOD COMING FROM UNDER FLANGE. AREA CLEANED TRACH TIES CHANGED WILL MONITOR CLOSELY
--- NOTE | 2020-03-27 08:00 | NUR ---
CPAP TRIAL STARTED THIS RN AND RT IN ROOM SEDATION ON HOLD Addendum: 03/27/20 at 1615 by Phyllis Allen RN CPAP TRAIL LASTED 2 HRS INCREASE IN BP NOTED BUT STABLE MD AWARE.
[2020-03-27] MEDS ORDERED: POTASSIUM CHLORIDE 10MEQ EA PO ONE (08:30)
[2020-03-27] MEDS: SODIUM HYPOCHLORITE 0.25% 480 ML SOLN IR SCH (08:44)
[2020-03-27] MEDS: PANTOPRAZOLE 40 MG 10ML VIAL IV SCH ×2 (08:45→16:06)
[2020-03-27] MEDS: FUROSEMIDE INJ 10 MG/ML 4 ML VIAL IV SCH (08:45)
[2020-03-27] MEDS ORDERED: MAGNESIUM HYDROXIDE 30 ML UDC PEG ONE (09:00)
--- NOTE | 2020-03-27 09:15 | Progress Note ---
DATE: 03/27/2020 CHIEF COMPLAINT/HISTORY OF PRESENT ILLNESS: This is a 35-year-old man, whose primary treating diagnosis is acute hypoxic respiratory failure secondary to bilateral COVID pneumonia. The patient developed ARDS, secondary to pneumonia that seems to have resolved. The patient underwent a chest film today on March 27, 2020, which revealed persistent diffuse bilateral pulmonary airspace disease. The patient had blood work today and was found to have white blood cell count of 6100 with 73% segmented neutrophils. Hemoglobin 7.4 g/dL. The patient's BUN and creatinine today are 25 and 0.89 respectively. Potassium 3.4. On Tuesday March 24, 2020, the patient underwent successful G-tube and tracheostomy tube placement. REVIEW OF SYSTEMS: As per HPI. PHYSICAL EXAMINATION: GENERAL: He is more interactive. He does follow simple commands. He attempts to mouth words and does not appear to be in any obvious distress. He is on a ventilator via tracheostomy tube. He is on a CPAP setting at this time, which he is tolerating quite well. VITAL SIGNS: Respiratory rate is 18, oxygen saturation 96%, temperature is 98.6, pulse 108, blood pressure is 156/90, BMI is 32. INTEGUMENT: Skin is warm and dry. Slight pallor, jaundice, and diaphoresis. The patient does have a 5 x 5 cm sacral decubitus ulcer that has eschar-covered central area. HEENT: Moist mucous membranes. NECK: Supple. He has a tracheostomy tube in place connected to a ventilator. CARDIOVASCULAR: Tachycardic. Rate and rhythm. LUNGS: The patient has crackles in bilateral lung alvarado. ABDOMEN: Soft. He does have a G-tube in place that is functional. EXTREMITIES: No edema in legs. NEUROLOGIC: Intact. DIAGNOSES: 1. Acute hypoxic respiratory failure, secondary to bilateral COVID-19 pneumonia. 2. Status post G-tube placement. 3. Status post tracheostomy tube placement. 4. Right lower leg deep venous thrombosis. 5. Type 2 diabetes mellitus. 6. Anemia, secondary to chronic disease. 7. Unstageable sacral decubitus ulcer. PLAN: 1. Continue wound care to the patient's unstageable sacral decubitus ulcer. 2. Nutrition support. 3. Attempt to wean the patient off ventilator. 4. We will commence nurse-driven physical therapy. 5. Continue enoxaparin twice a day for his deep venous thrombosis. 6. We will consider transfer to long-term acute care facility. I spent 30 minutes in the care of this intensive care unit patient. MD OLVIN Blackburn/[facility]EDY /[id number] SHERIF
[2020-03-27] MEDS ORDERED: POTASSIUM CHLORIDE 20MEQ/15ML UDC ONE (09:47)
--- NOTE | 2020-03-27 09:59 | Progress Note ---
DATE: SUBJECTIVE: The patient is placed back on CPAP and pressure support. He tolerates the trials for 90 to 120 minutes. When the sedation is stopped, he wakes up. He is receiving enteral feedings as well as Lovenox. PHYSICAL EXAMINATION: VITAL SIGNS: The patient is afebrile, blood pressure is 155/90, and saturation is 96%. HEENT: Shows no facial swelling or erythema. CARDIAC: Reveals regular rate and rhythm with normal S1 and S2. LUNGS: Auscultation of lungs shows decreased breath sounds at the bases. There is no wheezing. ABDOMEN: Soft, nontender. There is no rebound or guarding. EXTREMITIES: Show no leg edema or calf tenderness. He has weakness in all 4 extremities. LABORATORY DATA: White blood cell count is 6.1, hemoglobin is 7.4, and platelet count is 394. BUN to creatinine ratio is 25 and 0.89 and the potassium is 3.4. Albumin is 1.9. RADIOGRAPHIC DATA: Bilateral infiltrates. IMPRESSION: 1. Acute respiratory failure. 2. Coronavirus disease 2019 infection. 3. Sacral decubitus ulcer. 4. Deep vein thrombosis. 5. Myopathy of critical illness. 6. Diabetes. PLAN: 1. Continue spontaneous breathing trials. 2. Continue Lovenox. 3. Continue enteral feedings. 4. Continue wound care. Wound Care does not believe debridement of the sacral decubitus ulcer is required at this time. 5. Physical therapy. 6. Case discussed with nursing, Respiratory, Internal Medicine, and Administration. Severiano Crow MD [facility]/[place] /[id number]
[2020-03-27] MEDS: ENOXAPARIN SODIUM INJ 100 MG/ML SYR SC SCH (10:22)
[2020-03-27] MEDS ORDERED: POTASSIUM CHLORIDE 20MEQ/15ML UDC NG ONE (11:00)
[2020-03-27 11:14] LABS: ABG PH 7.39 (7.35-7.45)
[2020-03-27 11:15] LABS: ABG HCO3 39 mmol/L (22-26); ABG PCO2 65 mmHg (35-45); ABG PO2 94 mmHg (80-105)
--- NOTE | 2020-03-27 11:51 | NUR ---
Updated clinical faxed to [facility] at [phone].
--- NOTE | 2020-03-27 14:15 | NUR ---
PT NOTED WITH INCREASED BLEEDING FROM TRACH SITE. AREA CLEANED AND PRESSURE APPLIED DR.HAMER ULLOA PLACED SURGISEAL AROUND AREA SOME OOZING STILL NOTED. NOTIFIED WILL COME AND ASSESS.
--- NOTE | 2020-03-27 14:46 | NUR ---
SUBJECTIVE: Mr. Love remains in intensive care unit. The plan for him to go for tracheostomy today as well as PEG tube placement today. Also, the issue with this patient is there is concern he may have pleural effusion and discussed with Dr. Chau. Discussed with Critical Care. The patient who is a 35-year-old, who has been here for the last 30 days. He came with in COVID-19. The patient is currently on a ventilator. His cultures have been negative. LABORATORY DATA: His white count is 9.5 with hemoglobin of 7.8. His sodium is 142, potassium 3.9, creatinine 0.76. PHYSICAL EXAMINATION: GENERAL: He is currently alert. He is sedated, intubated. HEENT: Not icteric. NECK: Supple. CHEST: A few crackles. COR: S1, S2. ABDOMEN: Soft. IMPRESSION: 1. COVID-19, present on admission. 2. Acute respiratory distress syndrome. 3. Acute kidney injury, resolved. 4. Going for tracheostomy and PEG tube placement today. 5. Continuously to have positive PCR. I do not know what does that mean. At the present time, we do not know if that means he is infectious or not. We will continue with the droplet isolation. [id number]
[2020-03-27 15:21] LABS: HEMATOCRIT 24.7 % (38.2-49.6); HEMOGLOBIN 7.5 g/dL (14.0-18.0)
--- NOTE | 2020-03-27 15:40 | NUR ---
HERE SURGISEAL REAPPLIED WILL CONTINUE TO MONITOR CLOSELY
--- NOTE | 2020-03-27 16:06 | Progress Note ---
DATE: SUBJECTIVE: Mr. Love had a PEG and trach. He is having some bleeding around the trach site. Otherwise, he is comfortable. OBJECTIVE: VITAL SIGNS: Stable, otherwise afebrile. HEENT: Normocephalic, not icteric. NECK: Supple. CHEST: Clear. HEART: S1 and S2. No S3, S4, or murmur. ABDOMEN: Soft. Bowel sounds present. No tenderness. EXTREMITIES: No edema. SKIN: No rash. ASSESSMENT: 1. Respiratory failure. 2. COVID-19 infection present on admission. 3. Decubitus ulcer, sacral. 4. History of deep venous thrombosis. 5. 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 6. Diabetes mellitus with neuropathy. From Infectious Disease point of view, clinically seems to be stable, off antibiotic. The issue is now with bleeding around the PEG site, which Surgery is aware. Discussed with Pulmonary, there is a pleural effusion but stable from Infectious Disease point of view. MD HARVEY Alexis/MODL /[id number]
--- NOTE | 2020-03-27 16:16 | NUR ---
CALLED OR TO SPEAK TO , IN SURGERY AT THIS TIME SPOKE TO FLOORWORKER DISTRIBUTOR TO NOTIFY PT TRACH STILL BLEEDING. PRESSURE APPLIED AREA CLEANED WILL CONTINUE TO MONITOR
--- NOTE | 2020-03-27 16:22 | NUR ---
Received call from Anju with [facility]. States they are now able to admit COVID+ pts and they are ready to accept pt once he's ready for discharge.
[2020-03-27] MEDS ORDERED: SODIUM CHLORIDE 0.9% 250ML 250 ML IV SCH (16:45)
--- NOTE | 2020-03-27 17:16 | NUR ---
HERE AREA AROUND TRACH STILL BLEEDING SATURATED GAUZE ALL THE WAY AROUND, SURGISEAL CHANGED ADDED SUTURES. WILL MONITOR CLOSELY MD STATES IF BEGINS TO BLEED AGAIN TO CALL HIM
--- NOTE | 2020-03-27 18:12 | NUR ---
PT BEGAN TO DESAT THIS RN AND RT IN ROOM PT TURNING BLUE, UNABLE TO OXYGENATE CALLED CODE BLUE. LEAD MEDICAL TECHNOLOGIST IN ROOM STARTED COMPRESSIONS.
[2020-03-27 18:38] LABS: BASOPHILS % 0.2 % (0.0-1.0); EOSINOPHILS # (AUTO) 0.1 (0.0-0.4); EOSINOPHILS % 0.9 % (0.0-6.0); HEMATOCRIT 28.9 % (38.2-49.6); HEMOGLOBIN 8.2 g/dL (14.0-18.0); LYMPHOCYTES # (AUTO) 3.9 (1.0-3.2); LYMPHOCYTES % 37.4 % (18.0-39.1); MEAN CORPUSCULAR HEMOGLOBIN 24.4 pg (28-32); MEAN CORPUSCULAR HGB CONC 28.4 g/dL (31-35); MONOCYTES % 9.2 % (4.4-11.3); NEUTROPHILS % 48.1 % (38.7-80.0); PLATELET COUNT 508 x10e3/uL (140-360); RED BLOOD COUNT 3.36 x10e6/uL (4.3-5.7)
[2020-03-27 18:44] LABS: INR 1.06; PROTHROMBIN TIME 14.5 seconds (11.9-14.5)
[2020-03-27 18:54] LABS: ALANINE AMINOTRANSFERASE 20 IU/L (0-55); ALBUMIN 1.9 g/dL (3.5-5.0); ALBUMIN/GLOBULIN RATIO 0.3 (0.8-2.0); ALKALINE PHOSPHATASE 109 IU/L (40-150); ANION GAP 13.2 mmol/L (8-16); BLOOD UREA NITROGEN 22 mg/dL (7-26); BUN/CREATININE RATIO 24 (6-25); CALCIUM 9.1 mg/dL (8.4-10.2); CARBON DIOXIDE 33 mmol/L (22-29); CHLORIDE 105 mmol/L (98-107); CREATINE KINASE 29 IU/L (30-200); CREATININE, SERUM 0.92 mg/dL (0.72-1.25); EST GLOMERULAR FILTRATION RATE > 60 ML/MIN (60-); GLUCOSE 228 mg/dL (74-118); POTASSIUM 3.2 mmol/L (3.5-5.1); SODIUM 148 mmol/L (136-145)
--- NOTE | 2020-03-27 19:05 | NUR ---
SPOKE TO NOTIFIED OF PT CODE.
--- NOTE | 2020-03-27 19:10 | NUR ---
SPOKE TO PATIENT FAMILY MEMBER NIKKO (MPOA) NOTIFIED OF PATIENT EVENTS MADE AWARE OF CODE AND PT BEING REINTUBATED NO QUESTIONS AT THIS TIME STATES HE WILL CALL BACK IN 1 HOUR FOR UPDATE,
--- NOTE | 2020-03-27 19:32 | Diagnostic Imaging Report ---
EXAMINATION: CHEST SINGLE (PORTABLE) COMPARISON: Chest x-ray 0536 hours INDICATION: ^code blue ^[id number] ^190 DISCUSSION: Frontal view of the chest obtained at 1854 hours. The inferior chest was not imaged. HEART AND MEDIASTINUM: Visualized portion of the mediastinum is grossly normal. LINES: Endotracheal tube terminates at the clavicular heads approximately 5 cm above the latasha. Left PICC line terminates in the SVC and is stable. LUNGS/PLEURA: Right lateral pneumothorax measures 3.4 cm in transverse dimension. There are airspace opacities in the mid left chest extending to the base some of which appear linear. Atelectasis cannot be excluded. BONES AND SOFT TISSUES: Diffuse subcutaneous emphysema throughout the chest and extending into the lower neck and face. No focal osseous lesions. IMPRESSION: 1. Endotracheal tube terminates at the clavicular heads approximately 5 cm above the latasha. 2. New right lateral pneumothorax. 3. Diffuse subcutaneous emphysema. 4. Airspace opacities in the left lung similar which are linear, that may represent a combination of atelectasis and pneumonia. Findings of right pneumothorax given to DARRON Melo at the time of dictation. Confirmed. Signed by: Dr. Khadar Barrett MD on 03/27/2020 7:28 PM
[2020-03-27] MEDS ORDERED: EPINEPHRINE HCL SYRINGE ONE (19:56)
--- NOTE | 2020-03-27 22:04 | Diagnostic Imaging Report ---
EXAMINATION: CHEST SINGLE (PORTABLE) INDICATION: Right chest tube placement, verify position. COMPARISON: Chest x-ray 03/27/2020 6:54 PM FINDINGS: TUBES and LINES: New right chest tube, tip in the central aspect of the right lung. ET tube tip 3.5 cm above latasha. Left upper extremity PICC tip terminates in the superior cavoatrial junction. LUNGS: Normal lung volumes. Persistent diffuse airspace disease, right worse than left. PLEURA: Resolution of right pneumothorax. Limited evaluation of the left pleura due to overlying left chest pacing pad. HEART AND MEDIASTINUM: The cardiomediastinal silhouette is within normal size limits.. BONES AND SOFT TISSUES: Bones unchanged. Extensive subcutaneous emphysema in the chest and neck base. UPPER ABDOMEN: No free air under the diaphragm. IMPRESSION: New right chest tube, tip in the central aspect of the right lung. Resolution of right pneumothorax. Limited evaluation of the left chest due to overlying cardiac device pacing patent. Recommend repeat chest radiograph after removal of pad. Extensive airspace disease. Extensive subcutaneous emphysema in the included soft tissues. Lines and tubes as above. Signed by: Joseph Romo DO on 03/27/2020 10:00 PM
--- NOTE | 2020-03-27 22:17 | Operative Report ---
DATE OF PROCEDURE: SURGEON: Severiano Crow MD PROCEDURE: Right-sided chest tube placement. PREOPERATIVE DIAGNOSIS: Tension pneumothorax. POSTOPERATIVE DIAGNOSIS: Tension pneumothorax. CONSENT: Consent was obtained emergently because of tension pneumothorax with hypotension. CO-SURGEON: Dr. Osmin Jackson. ANESTHESIA: 1% lidocaine for local anesthesia. DESCRIPTION OF PROCEDURE: The patient was placed in a sterile supine position. Chlorhexidine was used to clean the area in the mid axillary line in the 5th, 6th, and 7th intercostal space. 1% lidocaine was used to anesthetize the area over the skin. A needle was then used to locate the pleural space. A wire was placed through the needle and attempt was made to place the chest tube by Seldinger technique. This became difficult because of the amount of subcutaneous emphysema. A 3 cm incision was then made in the midaxillary line. Blunt dissection with a finger was used to locate the area above the 6th rib. A 24-Azeri chest tube was placed with a trocar. There was immediate improvement in his blood pressure with significant air returned through the chest tube. A horizontal mattress suture was placed along with an anchoring suture. Vaseline gauze was placed around the tube. A sterile dressing was then placed over the site. COMPLICATIONS: None. ESTIMATED BLOOD LOSS: None. Severiano Crow MD H/MODL /[id number]
--- NOTE | 2020-03-27 22:33 | NUR ---
RECEIVED CALL FROM RADIOLOGIST REGARDING POST CHEST TUBE INSERTION X RAY. DR. GALLEGOS STATED PATIENT HAS A PNEUMOTHORAX ON LEFT SIDE WELL. SPOKE TO DR. CABRAL IMMEDIATELY AND NOTIFIED HIM OF RESULTS. NO NEW ORDERS AT THIS TIME.
--- NOTE | 2020-03-27 22:38 | Diagnostic Imaging Report ---
EXAMINATION: CHEST SINGLE (PORTABLE) INDICATION: Respiratory distress COMPARISON: Chest x-ray 03/27/2020 9:22 PM FINDINGS: TUBES and LINES: New right chest tube, tip in the central aspect of the right lung. ET tube tip 3.5 cm above latasha. Left upper extremity PICC tip terminates in the superior cavoatrial junction. LUNGS: Persistent diffuse airspace disease, right worse than left. No consolidations. PLEURA: Resolution of right pneumothorax. Small left pneumothorax. HEART AND MEDIASTINUM: The cardiomediastinal silhouette is within normal size limits. BONES AND SOFT TISSUES: Bones unchanged. Extensive subcutaneous emphysema in the chest and neck base. UPPER ABDOMEN: No free air under the diaphragm. IMPRESSION: Small left pneumothorax. Persistent diffuse airspace disease. Stable lines and tubes as above. Findings discussed with ICU nurse Ben at 10:33 PM on 03/27/[address] Romo via telephone. Signed by: Joseph Romo DO on 03/27/2020 10:35 PM
[2020-03-27] MEDS: MEROPENEM 500MG/ NS 50ML 50 ML IV SCH (22:45)
[2020-03-27 22:47] LABS: BASOPHILS % 0.2 % (0.0-1.0); EOSINOPHILS % 0.3 % (0.0-6.0); HEMATOCRIT 25.4 % (38.2-49.6); HEMOGLOBIN 7.6 g/dL (14.0-18.0); LYMPHOCYTES # (AUTO) 0.6 (1.0-3.2); LYMPHOCYTES % 4.9 % (18.0-39.1); MEAN CORPUSCULAR HEMOGLOBIN 24.5 pg (28-32); MEAN CORPUSCULAR HGB CONC 29.9 g/dL (31-35); MONOCYTES # (AUTO) 1.2 (0.2-0.8); MONOCYTES % 10.5 % (4.4-11.3); NEUTROPHILS # (AUTO) 9.4 (2.1-6.9); NEUTROPHILS % 83.3 % (38.7-80.0); RED CELL DISTRIBUTION WIDTH 16.1 % (11.7-14.4)
[2020-03-27 22:48] LABS: MEAN CORPUSCULAR VOLUME 81.9 fL (81-99); PLATELET COUNT 403 x10e3/uL (140-360)
--- NOTE | 2020-03-27 22:52 | NUR ---
SPOKE TO DR. Emili CABRAL REGARDING CONTINUED CONCERNS OVER LEFT PNEUMOTHORAX AND DECREASED LUNG SOUNDS THROUGHOUT LEFT LUNG. SPOKE ABOUT POSSIBILITY FOR LEFT SIDE CHEST TUBE. AT THIS TIME DR. Emili CABRAL WANTS TO CONTINUE MONITORING AND REPEAT CHEST X-RAY IN THE MORNING.
[2020-03-27 22:57] LABS: INR 1.05; PROTHROMBIN TIME 14.4 seconds (11.9-14.5)
[2020-03-27 22:58] LABS: PARTIAL THROMBOPLASTIN TIME 37.1 seconds (23.8-35.5)
[2020-03-27 23:04] LABS: ALANINE AMINOTRANSFERASE 27 IU/L (0-55); ALBUMIN 1.9 g/dL (3.5-5.0); ALBUMIN/GLOBULIN RATIO 0.4 (0.8-2.0); ALKALINE PHOSPHATASE 110 IU/L (40-150); ANION GAP 14.7 mmol/L (8-16); BILIRUBIN,DIRECT 0.2 mg/dL (0.0-0.5); BLOOD UREA NITROGEN 27 mg/dL (7-26); BUN/CREATININE RATIO 29 (6-25); CALCIUM 8.9 mg/dL (8.4-10.2); CARBON DIOXIDE 34 mmol/L (22-29); CHLORIDE 104 mmol/L (98-107); CREATINE KINASE 45 IU/L (30-200); CREATININE, SERUM 0.92 mg/dL (0.72-1.25); EST GLOMERULAR FILTRATION RATE > 60 ML/MIN (60-); GLUCOSE 140 mg/dL (74-118); POTASSIUM 3.7 mmol/L (3.5-5.1); SODIUM 149 mmol/L (136-145)
[2020-03-27] MEDS: LINEZOLID 600 MG/D5W 300ML 300 ML IV SCH (23:10)
--- NOTE | 2020-03-27 23:40 | NUR ---
AT 2245 PATIENT'S BP BEGAN DECREASING, AT THIS TIME PROPOFOL AND FENTANYL WERE DECREASED. AT 2310 PATIENT'S BP WAS 87/48 AT THIS TIME ALL SEDATION WAS HELD. AT 2325 SUDDENLY PATIENT'S BP WENT TO 185/94 AND PATIENT BEGAN MOVING BOTH ARMS AND HEAD. UPON ENTERING THE ROOM AND ASSESSING PATIENT HE WAS OBSERVED TO BE POSTURING. PATIENT MOVING LEFT ARM IN OUTWARD DECEREBRATE FASHION AND RIGHT ARM TOWARDS HIM IN A DECORTICATE FASHION. WHEN PATIENT MAKES THESE MOVEMENTS HE WAS TURNING HIS HEAD TO LEFT SIDE APPROXIMATELY 45 DEGREES. ALL MOVEMENTS WERE TOWARDS LEFT SIDE. PATIENT APPEARS TO BE AGONAL BREATHING AT THIS TIME. DR. Emili CABRAL WAS CALLED AT 233 AND UPDATED ON PATIENT'S NEW STATUS. NO NEW ORDERS AT THIS TIME.
[2020-03-28] VITALS (24 sets, daily range): BP systolic 129–191; BP diastolic 66–93
[2020-03-28 00:04] LABS: FIBRINOGEN MAIN LAB 442 mg/dL (204-462)
--- NOTE | 2020-03-28 01:19 | Diagnostic Imaging Report ---
History: AMS Comparison studies: None Technique: Axial images were obtained from the skull base to the vertex. Coronal and sagittal reconstructions obtained from the axial data. Dose modulation, iterative reconstruction, and/or weight based adjustment of the mA/kV was utilized to reduce the radiation dose to as low as reasonably achievable. Intravenous contrast: None Findings: Scalp/skull: No abnormalities. No fractures, blastic or lytic lesions. Extra-axial spaces: No masses. No fluid collections. Brain sulci: Appropriate for age. Ventricles: Normal in size and configuration. No hydrocephalus. Parenchyma: No abnormal densities. No masses, hemorrhage, acute or chronic cortical vascular insults. Sellar/suprasellar region: No abnormalities Craniocervical junction: Patent foramen magnum. No Chiari one malformation. Incidental findings: Subcutaneous emphysema in the partially visualized right periorbital, temporal and upper cervical soft tissues. IMPRESSION: 1. No intracranial abnormalities in spite of motion artifacts. 2. Incidental partially visualized venous emphysema Signed by: Dr. Nickolas Topete M.D. on 03/28/2020 1:16 AM
--- NOTE | 2020-03-28 02:27 | Diagnostic Imaging Report ---
EXAM: CT Chest WITHOUT contrast INDICATION: POSSIBLE LEFT PNEUMOTHORAX COMPARISON: Chest x-ray 03/27/2020 TECHNIQUE: Chest was scanned utilizing a multidetector helical scanner from the lung apex through the level of the adrenal glands without administration of IV contrast. Absence of intravenous contrast decreases sensitivity for detection of lymphadenopathy and vascular pathology. Coronal and sagittal reformations were obtained. Routine protocol was performed. IV CONTRAST: None COMPLICATIONS: None RADIATION DOSE: Total DLP: 1747 mGy*cm Estimated effective dose: (DLP x 0.014 x size factor) mSv CTDIvol has been reviewed. It is below the limits set by the Radiation Protocol Committee (RPC). Dose modulation, iterative reconstruction, and/or weight based adjustment of the mA/kV was utilized to reduce the radiation dose to as low as reasonably achievable. FINDINGS: LINES/ TUBES: ET tube tip 4 cm above latasha. Left upper extremity central venous catheter, tip in the superior cavoatrial junction. A percutaneous right chest tube with tip and sidehole port the right pleural space .. LUNGS AND AIRWAYS: A 2 cm subpleural cavitation in the lateral aspect of the right upper lobe with surrounding consolidation. Coarse reticular opacities, scattered consolidations and diffuse groundglass opacification of the right lung. Trace debris in the trachea and mainstem bronchi is likely secretions. Linear branching hyperdensities in the basilar left lower lobe into a lesser extent in the basilar right lower lobe. Bilateral lower lobe consolidations. Low left lower lobe volume. Scattered ground glass opacities in the left lung. PLEURA: Moderate left hydropneumothorax. Small residual right hydropneumothorax. HEART AND MEDIASTINUM: The thyroid gland is normal. No mediastinal, hilar or axillary lymphadenopathy. The heart is normal in size. There is no pericardial effusion. Small amount of pneumomediastinum. UPPER ABDOMEN: Small volume pneumoperitoneum within the upper abdomen. BONES: Motion artifact limits evaluation for rib fracture. No obvious displaced rib fractures. Healed right midclavicular fracture. SOFT TISSUES: Extensive subcutaneous emphysema in the bilateral chest and neck. IMPRESSION: Moderate left hydropneumothorax. Findings of left pneumothorax was communicated with ICU nurse Ben at 10:33 PM on 03/27/[address] Romo via telephone. Small residual right pneumothorax. Small right pleural effusion. Small volume pneumoperitoneum in the upper abdomen. A 2 cm subpleural cavitating consolidation in the lateral aspect of the right upper lobe. Given extensive subcutaneous emphysema which tracks down to the upper thighs, a bronchopleural fistula is possible. Extensive airspace disease in the right lung and to a lesser extent in the left lung. Bilateral lower lobe consolidations concerning for aspiration pneumonia. Branching hyperdensities in the lower lobes can be due to aspiration of hyperdense material or blood products. Pneumomediastinum. Findings of pneumothorax and pneumoperitoneum discussed with ICU nurse Ben at 2:15 AM on 03/28/[address] Romo via telephone. Signed by: Joseph Romo DO on 03/28/2020 2:24 AM
--- NOTE | 2020-03-28 04:59 | Operative Report ---
DATE OF PROCEDURE: 03/28/2020 SURGEON: Osmin Jackson MD PREOPERATIVE DIAGNOSIS: Left hydropneumothorax. POSTOPERATIVE DIAGNOSIS: Left hydropneumothorax. PROCEDURE: Thoracostomy tube insertion. ANESTHESIA: Local. INDICATION: A 35-year-old male with history of bilateral pneumonia, status post resuscitation after respiratory arrest. The patient was found on CT to have a left hydropneumothorax. Consent obtained from family for insertion of left thoracostomy tube insertion. DESCRIPTION OF PROCEDURE: The patient was placed in supine position. The chosen side in the left mid axillary line approximately intercostal 6th, which was prepped with alcohol and draped in sterile fashion. Local anesthesia with 1% lidocaine was injected into the skin, subcutaneous tissue, and intercostal space. We then made 2 cm incisions over the area of the indicated. The intercostal space was penetrated with a hemostat and pleural cavity entered and straw-colored pleural fluid was found. A 24-Greek chest tube with trocar inserted into the pleural space and directed posteriorly and the tube advanced as the trocar was removed. The tube was connected to the Pleur-Evac and immediately 200 mL to 300 mL of straw-colored fluid was evacuated. The tube was anchored to the skin with 2-0 Prolene stitch. Dressing applied. The patient tolerated the procedure well. BLOOD LOSS: 2 mL. Osmin Jackson MD DNL/MODL /[id number]
[2020-03-28] MEDS: FENTANYL 2,000 MCG/250 ML BAG IV PRN ×2 (05:25→17:40)
[2020-03-28 05:40] LABS: BASOPHILS % 0.1 % (0.0-1.0); EOSINOPHILS # (AUTO) 0.1 (0.0-0.4); EOSINOPHILS % 0.7 % (0.0-6.0); HEMATOCRIT 22.8 % (38.2-49.6); LYMPHOCYTES # (AUTO) 0.6 (1.0-3.2); LYMPHOCYTES % 8.4 % (18.0-39.1); MEAN CORPUSCULAR HEMOGLOBIN 24.3 pg (28-32); MEAN CORPUSCULAR HGB CONC 29.4 g/dL (31-35); MEAN CORPUSCULAR VOLUME 82.6 fL (81-99); MONOCYTES # (AUTO) 0.7 (0.2-0.8); MONOCYTES % 10.4 % (4.4-11.3); NEUTROPHILS # (AUTO) 5.6 (2.1-6.9); NEUTROPHILS % 79.7 % (38.7-80.0); RED BLOOD COUNT 2.76 x10e6/uL (4.3-5.7)
[2020-03-28 05:57] LABS: INR 1.13; PROTHROMBIN TIME 15.2 seconds (11.9-14.5)
[2020-03-28 05:58] LABS: PARTIAL THROMBOPLASTIN TIME 38.5 seconds (23.8-35.5)
[2020-03-28 06:02] LABS: CREATINE KINASE MB 3.3 ng/mL (0-5.0)
[2020-03-28 06:05] LABS: ALANINE AMINOTRANSFERASE 22 IU/L (0-55); ALBUMIN 1.8 g/dL (3.5-5.0); ALBUMIN/GLOBULIN RATIO 0.4 (0.8-2.0); ALKALINE PHOSPHATASE 95 IU/L (40-150); BLOOD UREA NITROGEN 27 mg/dL (7-26); BUN/CREATININE RATIO 31 (6-25); CALCIUM 8.5 mg/dL (8.4-10.2); CARBON DIOXIDE 37 mmol/L (22-29); CHLORIDE 104 mmol/L (98-107); CREATININE, SERUM 0.88 mg/dL (0.72-1.25); EST GLOMERULAR FILTRATION RATE > 60 ML/MIN (60-); GLUCOSE 119 mg/dL (74-118); SODIUM 148 mmol/L (136-145)
[2020-03-28 06:08] LABS: PLATELET COUNT 354 x10e3/uL (140-360)
[2020-03-28 06:09] LABS: HEMOGLOBIN 6.7 g/dL (14.0-18.0)
[2020-03-28] MEDS ORDERED: SODIUM CHLORIDE 0.9% 250ML 250 ML IV ONE ×2 (07:30→19:00)
--- NOTE | 2020-03-28 07:38 | Diagnostic Imaging Report ---
EXAM: CT Pelvis without contrast INDICATION: Sacral decubitus wound, rule out OSTEOMYELITIS COMPARISON: None. TECHNIQUE: Pelvis were scanned utilizing a multidetector helical scanner from the iliac crest to the pubic symphysis without administration of IV contrast. Coronal and sagittal reformations were obtained. Routine protocol was performed. IV CONTRAST: None ORAL CONTRAST: None COMPLICATIONS: None FINDINGS: LINES and TUBES: Urinary bladder Servin catheter tip within the bladder lumen. GI TRACT: No abnormal distention, wall thickening, or evidence of bowel obstruction. Appendix is normal. PELVIC ORGANS/BLADDER: Urinary bladder under distended with Servin catheter in place. Trace air in the bladder lumen. LYMPH NODES: No lymphadenopathy. VESSELS: Vascular calcifications. PERITONEUM / RETROPERITONEUM: Mild volume pneumoperitoneum. No free fluid.. BONES/SOFT TISSUES: Superficial ulceration and inflammation in the dermis and subcutaneous tissues dorsal superficial to the lower sacrum without underlying osseous abnormality. Extensive subcutaneous emphysema in the lower anterior abdomen and pelvis, with marked scrotal subcutaneous emphysema. Bilateral L5 inferior pars defects. IMPRESSION: 1. Superficial ulceration and inflammation in the dermis and subcutaneous tissues dorsal superficial to the lower sacrum without underlying osseous abnormality. 2. Extensive subcutaneous emphysema in the lower anterior abdomen and pelvis, with marked scrotal subcutaneous emphysema. Mild anasarca. The penis is buried within the lower anterior pelvic subcutaneous tissues. 3. Mild volume pneumoperitoneum. Signed by: Joseph Romo DO on 03/28/2020 7:34 AM
[2020-03-28] MEDS: PANTOPRAZOLE 40 MG 10ML VIAL IV SCH ×2 (08:41→17:27)
[2020-03-28] MEDS: SODIUM HYPOCHLORITE 0.25% 480 ML SOLN IR SCH (09:00)
[2020-03-28] MEDS: PROPOFOL IV EMULSION 10 MG/ML 50 ML VIAL IV PRN ×3 (09:00→18:51)
[2020-03-28] MEDS ORDERED: FUROSEMIDE INJ 10 MG/ML 4 ML VIAL IV ONE ×2 (09:05→11:15)
--- NOTE | 2020-03-28 09:26 | Diagnostic Imaging Report ---
EXAM: CHEST SINGLE (PORTABLE) DATE: 03/28/2020 5:00 AM INDICATION: Mechanical ventilation COMPARISON: 03/27/2020 FINDINGS/IMPRESSION: Endotracheal tube tip terminates approximately 5.5 cm above the latasha. Left IJ PICC line identified in stable position. Left-sided chest tube noted in place. There is no significant residual pneumothorax present. There are unchanged right greater than left-sided airspace opacities. There is no evidence for new large focal consolidation or significant pleural effusion. The cardiomediastinal silhouette is stable in appearance. No acute osseous abnormality is identified. Signed by: Dr. Colton Sandra MD on 03/28/2020 9:22 AM
--- NOTE | 2020-03-28 09:44 | Progress Note ---
DATE: 03/28/2020 CHIEF COMPLAINT/HISTORY OF PRESENT ILLNESS: This is a 35-year-old man, whose primary treating diagnosis is acute hypoxic respiratory failure secondary to ARDS from bilateral COVID-19 pneumonia. On Tuesday March 24, 2020, the patient underwent successful tracheostomy and G-tube placement. Unfortunately, yesterday on March 27, 2020, the patient began experiencing significant amount of blood oozing around the tracheostomy tube area. The patient was receiving enoxaparin 100 mg subcutaneous twice a day for his acute right lower extremity deep venous thrombosis. The patient's hemoglobin yesterday morning was 7.4 g/dL. Yesterday evening around 6:00 p.m., the patient became extremely hypoxic and blue in the face. Since the patient was not oxygenating a code blue was called and chest compressions were commenced. The emergency room physician attended the code blue and decannulated the tracheostomy tube. According to nursing staff, there was a blood clot in the tracheostomy tube. The patient was intubated endotracheally by the emergency room physician. The patient no longer was hypoxic and his vitals stabilized at this point. However, a chest film revealed left-sided tension pneumothorax. Thus, Dr. Jackson, a surgeon, placed a left-sided tube thoracostomy. Today's hemoglobin this morning 6.7 g/dL. Enoxaparin was discontinued. The patient's potassium is 4.0. The patient's BUN and creatinine are 27 and 0.88 respectively. The patient underwent a CT of the head last night, which is unremarkable. The patient underwent a CT of the chest early this morning that revealed bilateral lobe consolidations as well as bilateral extensive airspace disease, worse in the right. It also revealed a moderate left hydropneumothorax and a small residual right pneumothorax. The patient had undergone a sacral and coccyx x-ray yesterday to assess it as unstageable sacral ulcer and it did not reveal any obvious underlying osseous abnormality, but it did reveal superficial ulceration, inflammation of the dermis and subcutaneous tissues in the lower sacrum area. REVIEW OF SYSTEMS: As per HPI. PHYSICAL EXAMINATION: GENERAL: He is sedated on a ventilator. He is on AC mode. VITAL SIGNS: Blood pressure is 160/70, pulse 104, oxygen saturation 100%. His FiO2 is 65%. Temperature 98.7, respiratory rate 18. INTEGUMENT: Pale. No jaundice, diaphoresis. He does have an unstageable sacral decubitus ulcer. HEENT: Anicteric sclerae. Moist mucous membranes. He has an endotracheal and orogastric tube in place. NECK: Supple. His tracheostomy stoma is dressed. CARDIOVASCULAR: Tachycardic rate and rhythm. LUNGS: He has rhonchi and crackles bilaterally. ABDOMEN: Soft. He has G-tube in place, which is functional. EXTREMITIES: No edema or deformity. NEUROLOGICAL: He is sedated according nursing staff. He is less responsive and interactive than yesterday. DIAGNOSES: 1. Acute hypoxic cardiac arrest. 2. Acute respiratory failure secondary to bilateral COVID-19 pneumonia. 3. Ventilator dependent. 4. Acute on chronic anemia likely secondary to hemorrhaging. 5. Acute right lower extremity deep venous thrombosis. 6. Unstageable sacral decubitus ulcer. 7. Type 2 diabetes mellitus. PLAN: 1. Hold enoxaparin. 2. Transfuse 2 units packed red blood cells. 3. We will administer intravenous furosemide now and between the 2 units packed red blood cells. 4. Continue respiratory support via ventilator. 5. Continue supportive care. 6. Continue wound care to the patient's unstageable sacral decubitus ulcer. 7. Continue watchful waiting. MD OLVIN Blackburn/FREDY /[id number] MTDD
[2020-03-28] MEDS: LINEZOLID 600 MG/D5W 300ML 300 ML IV SCH ×2 (11:32→21:17)
[2020-03-28] MEDS: MEROPENEM 500MG/ NS 50ML 50 ML IV SCH ×2 (11:32→21:47)
[2020-03-28] MEDS ORDERED: SODIUM CHLORIDE 0.9% 250ML 250 ML ONE (13:10)
--- NOTE | 2020-03-28 16:01 | Progress Note ---
DATE: SUBJECTIVE: The patient had a cardiopulmonary arrest yesterday in late afternoon or early evening. He required CPR. He had to be orally intubated and his tracheostomy tube was removed. The patient had a subsequent tension pneumothorax on the right side and required an emergent chest tube. A CT scan showed possible pneumothorax on the left side. He had another chest tube. It is on the left side early this morning. PHYSICAL EXAMINATION: VITAL SIGNS: The patient is afebrile. The vital signs are stable. He is on assist-control mode of ventilation. He is now on fentanyl as well as propofol. HEENT: Shows some subcutaneous emphysema. CARDIAC: Reveals regular rate and rhythm with normal S1 and S2. LUNGS: Auscultation of lungs reveals decreased breath sounds at the bases. There is a right chest tube with some air leak. There is good respiratory variation. The left chest tube also shows good respiratory variation. ABDOMEN: Soft. There is some subcutaneous air. EXTREMITIES: There is some leg edema in the right leg. LABORATORY STUDIES: The hemoglobin is 6.7 and the white blood cell count is 7. The platelet count is 354. BUN to creatinine ratio is normal. The other electrolytes are within normal limits. Albumin is 1.8. IMPRESSION: 1. Anoxic brain injury following cardiopulmonary arrest. 2. Pneumothoraces and subcutaneous emphysema, requiring bilateral chest tubes. 3. Resolving bilateral pneumonia. 4. COVID-19 infection. 5. Deep vein thrombosis. 6. Sacral decubitus ulcer. 7. Diabetes. PLAN: 1. Continue thoracostomies tube drainage bilaterally. 2. Continue mechanical ventilation and repeat ABG. 3. Monitor mental status. 4. Transfuse packed red blood cells. 5. Case discussed with General Surgery, Infectious Disease, Internal Medicine, administration, cnc machinist 2nd shift nursing, and day shift nursing. Greater than 35 minutes in direct critical care time. Severiano Crow MD [facility]/FREDY /[id number]
--- NOTE | 2020-03-28 16:39 | NUR ---
Nutrition Intervention Note RD Recommendation(s) for Physician: - Recommend continuing Vital High Protein. Recommend a goal rate of 60 mL/hr at this time due to current propofol rate (provides 1440 kcal, 126 g protein, and 1198 mL water per day). - current propofol rate provides 132 kcal. - Water flushes per MD. Plan of Care: RD following, monitoring for tolerance and adequacy. TF recs. Nutrition reason for involvement: follow up RD Assessment 03/28: Follow up. Pt remains intubated and sedated, currently on Fentanyl drip and Propofol drop. Pt s/p cardiopulmonary arrest yesterday requiring CPR and subsequent bilateral chest tube placement. Pt now intubated and trach removed. TF remains off currently, noted last documented TF of 520 ml total received on 03/27. TF rec's provided when feasible to resume. Will continue to monitor. 03/24: Follow up. Pt remains intubated and sedated. Pt is currently receiving propofol @ 37.4 ml/hr per RN which provides 987 kcal. Per MD note, pt is planned to receive a trach and PEG today; therefore, tube feeding is on hold at this time. Will continue to monitor. 03/21: Follow up. Pt remains intubated and sedated, currently on Propofol and Versed. Pt off, CPAP trials, plan to resume TF per RN. Plan for trach placement tomorrow. Chart reviewed. Discussed TF rec's with RN on unit as pt not meeting protein needs and Propofol providing additional kcal. Will continue to monitor. 03/17: Follow up. Pt remains intubated and is sedated on propofol @ 21.8 mL/hr which provides 575 kcal. Pt is tolerating tube feeding and is receiving Nepro @ 40 mL/hr. Recommend modifying formula to Vital High Protein. Informed RN of recommendation. Will continue to monitor. 03/13: Follow up. Pt remains intubated and sedated, off Propofol and continues on Fentanyl drip. Pt continues on TF of Nepro at 40 ml/hr, no dialysis initiated and renal trend improving. TF meeting current estimated needs. Current rec's remain appropriate. Chart reviewed. Will continue to monitor. 03/08: Follow up. Pt remains intubated and sedated on Propofol and Fentanyl drips. No pressor support. Pt on TF of Nepro at 40 ml/hr. Renal trend noted, no dialysis currently. TF meeting estimated kcal and protein needs per current renal trend. TF rec's provided pending dialysis initiation and continued Propofol use. Chart reviewed. Will continue to monitor. 03/03: Follow up. Pt remains mechanically ventilated. Pt is receiving Glucerna 1.2 @ 40 ml/hr per chart. Pt is receiving 26.7 mL/hr of propofol which provides 705 kcal. Recommend modifying formula to Vital High Protein. Will continue to monitor. 02/28: Follow up. Pt remains intubated, sedated with Propofol and fentanyl drip. Pt not currently on pressors. TF currently off per am documentation, previously infusing at 20 ml/hr on 02/27 and 02/26- not meeting needs. Pt with increased water flushes per MD / hypernatremia. Chart reviewed. TF rec's relayed to RN. Will continue to monitor. 02/24: Follow up. Pt remains mechanically ventilated. Per RN, pt is tolerating tube feeding of Glucerna 1.2 @ 40 mL/hr. Recommend modifying formula to Vital High Protein. RD recommendation provided to nurse. Will continue to monitor. 02/20: 35 YOM admitted for hypoxemia, hyperglycemia with PMH listed below. Physical visit was deferred d/t hospitals infection disease policy. Pt is intubated on fentanyl and propofol. Pt is not on pressors as of now. The nurse reported the pt was ordered pressors over the weekend but has not needed it today. Nurse reported possible ARDS, they have not had to place the pt in the prone position yet. Pt was ordered Glucerna 1.2 at 20 ml/hr advance to goal rate of 60 ml/hr with 100 ml of water every 4 hours (1728 kcal, 86gram protein) . RD recommendations provided above and given to nurse. Unaware of propofol rate d/t not being able to enter the room and nurse not knowing at current time. Nurse reported the pt is currently on 20 ml/hr of Glucerna 1.2. Will continue to monitor. Principal Problems/Diagnoses: hypoxemia, hyperglycemia PMH: Uncontrolled type 2 diabetes mellitus. GI: last recorded BM 03/20 Skin: unstagable sacral PU Labs: 03/28: Na 148, K 4, BUN 27, Cr 0.88, Gluc 119, POC Gluc 131-152 03/24: Na 142, K 3.9, BUN 22, Cr 0.76, Glu 127 03/21: Na 145, K 3.9, BUN 22, Cr 0.88, Gluc 186, POC Gluc 98- 200 03/17: Na 144, K 3.8, BUN 26, Cr 0.86. Glu 200 03/13: Na 141, K 3.6, BUN 39, Cr 1.13, Gluc 245, POC Gluc 261-286 03/08: Na 142, K 4.4, BUN 54, Cr 1.42, Gluc 323, POC Gluc 316-336 Meds: linezolid IV, protonix, abx, IV/Drips: Propofol at 5 ml/hr, Insulin drip at 0.6 units/hr, Fentanyl drip Ht: 71 in Wt: 225 lbs (03/24) 220 lbs (03/17) 212 lbs (02/27) 215 lbs (02/23) 213 lb (02/20) BMI: 31.4 kg/m^2 IBW: 172 lbs Malnutrition Evaluation (03/21) -unable to perform nutrition assessment, isolation precautions for COVID-19 Nutrition Prescription (Diet Order): Vital High Protein @ 55 mL/hr- held Estimated Nutritional Needs: Calories: 9250-8077 kcal/day (20- 25 kcal/kg/day) Weight used : IBW (78 kg) Protein : 94 156 g protein/day (1.2-2 gram/kg/day ) Weight used: IBW (78 kg) Diet Adequacy: not meeting kcal needs, not meeting protein needs Diet Education Needs Assessment: Diet education not indicated, patient on temporary/transition diet. Nutrition Care Level: moderate Nutrition Diagnosis: Inadequate energy intake related to medical condition as evidenced by the pt needing mechanical ventilation and need for TF to meet energy and protein needs. Goal: Patient will meet 75-100% of estimated needs by follow up Progress: progressing Interventions: -TF (Composition, Rate, Route),Recommended Modifications, Collaboration with other providers Monitoring/Evaluation: -Total energy intake, Total protein intake, Formula/Solution Signed: hCasidy Bridges RD, LD, [facility]
[2020-03-28 18:28] LABS: HEMOGLOBIN 8.8 g/dL (14.0-18.0)
--- NOTE | 2020-03-28 21:27 | Progress Note ---
DATE: SUBJECTIVE: Mr. Love yesterday was bleeding from his trach and he started to have to apparently short of breath. He was seen by the surgeon, Dr. Jackson. He had a cardiac arrest. Dr. Crow came to see the patient. In the afternoon, I called the nursing station. The patient had cardiac arrest and had to have 2 chest tubes placed, one on the right and one on the left. The patient is currently intubated. There was concern if he has anoxic brain injury. Discussed at length with the physicians involved in the medical team. PHYSICAL EXAMINATION: GENERAL: The patient is currently intubated, sedated. HEENT: Normocephalic. NECK: Supple. CHEST: Few rhonchi bilateral, crackles bilateral. HEART: S1 and S2. No S3, S4, or murmur. ABDOMEN: Soft. Bowel sounds present. EXTREMITIES: No edema. SKIN: No rash. LABORATORY DATA: Reviewed today. There is nothing new on the cultures. His white count is 7, hemoglobin 6.7. His sodium 140, potassium 4.0, creatinine 0.88. IMPRESSION: 1. Respiratory failure. 2. Status post cardiac arrest. 3. Status post bleed from the trach site. 4. Status post bilateral pneumothorax, tension pneumothorax. 5. Anemia, acute on chronic. 6. Acute kidney injury, resolved. 7. Deep venous thrombosis, on anticoagulation. 8. Diabetes mellitus. When I got the call yesterday, I put him on Zyvox and meropenem. Today, chest x-ray is clear. I am going to discontinue antibiotic tomorrow morning. He may have aspiration, but clinically he seems to be better now with the concern if he has brain injury. We have to reassess soon. MD HARVEY Alexis/FREDY /[id number]
[2020-03-29] VITALS (32 sets, daily range): BP systolic 99–171; BP diastolic 51–95
[2020-03-29] MEDS: FENTANYL 2,000 MCG/250 ML BAG IV PRN ×2 (03:58→11:41)
[2020-03-29] MEDS: PROPOFOL IV EMULSION 10 MG/ML 50 ML VIAL IV PRN ×2 (04:34→11:40)
[2020-03-29 04:45] LABS: BASOPHILS % 0.4 % (0.0-1.0); EOSINOPHILS # (AUTO) 0.1 (0.0-0.4); EOSINOPHILS % 2.1 % (0.0-6.0); HEMATOCRIT 28.4 % (38.2-49.6); HEMOGLOBIN 8.8 g/dL (14.0-18.0); LYMPHOCYTES # (AUTO) 0.6 (1.0-3.2); MEAN CORPUSCULAR HEMOGLOBIN 25.4 pg (28-32); MEAN CORPUSCULAR VOLUME 82.1 fL (81-99); MONOCYTES # (AUTO) 0.8 (0.2-0.8); MONOCYTES % 13.4 % (4.4-11.3); NEUTROPHILS # (AUTO) 4.2 (2.1-6.9); NEUTROPHILS % 73.7 % (38.7-80.0); PLATELET COUNT 324 x10e3/uL (140-360); RED BLOOD COUNT 3.46 x10e6/uL (4.3-5.7); RED CELL DISTRIBUTION WIDTH 15.8 % (11.7-14.4)
[2020-03-29 05:06] LABS: ALANINE AMINOTRANSFERASE 22 IU/L (0-55); ALBUMIN 1.8 g/dL (3.5-5.0); ALBUMIN/GLOBULIN RATIO 0.4 (0.8-2.0); ALKALINE PHOSPHATASE 84 IU/L (40-150); ANION GAP 11.5 mmol/L (8-16); BLOOD UREA NITROGEN 24 mg/dL (7-26); BUN/CREATININE RATIO 27 (6-25); CALCIUM 8.3 mg/dL (8.4-10.2); CARBON DIOXIDE 37 mmol/L (22-29); CHLORIDE 103 mmol/L (98-107); EST GLOMERULAR FILTRATION RATE > 60 ML/MIN (60-); GLUCOSE 112 mg/dL (74-118); POTASSIUM 3.5 mmol/L (3.5-5.1); SODIUM 148 mmol/L (136-145)
[2020-03-29 05:49] LABS: INR 1.04; PROTHROMBIN TIME 14.2 seconds (11.9-14.5)
[2020-03-29] MEDS ORDERED: POTASSIUM CHLORIDE 20MEQ/15ML UDC GT ONE (07:30)
[2020-03-29] MEDS ORDERED: FUROSEMIDE INJ 10 MG/ML 4 ML VIAL IV ONE (07:30)
[2020-03-29] MEDS: LINEZOLID 600 MG/D5W 300ML 300 ML IV SCH ×2 (08:36→20:08)
--- NOTE | 2020-03-29 09:00 | NUR ---
TUBE FEEDS RE-STARTED AT 20 ML/HR WITH 250 ML WATER FLUSHES Q4H
--- NOTE | 2020-03-29 09:07 | Diagnostic Imaging Report ---
Examination: Single AP view of the chest. COMPARISON: 03/28/2020 INDICATION: Intubation DISCUSSION: See impression IMPRESSION: 1. Endotracheal tube, left upper extremity PICC, and bilateral chest tubes are unchanged in position. No pneumothorax 2. Unchanged patchy consolidations, right worse than left. 3. Stable cardiomediastinal contour. No acute osseous abnormality. Healed fracture deformity right clavicular mid shaft. 4. Resolving subcutaneous emphysema. Signed by: Dr. Osmin Parker M.D. on 03/29/2020 9:04 AM
[2020-03-29] MEDS: MEROPENEM 500MG/ NS 50ML 50 ML IV SCH ×2 (09:08→21:09)
[2020-03-29] MEDS: SODIUM HYPOCHLORITE 0.25% 480 ML SOLN IR SCH (09:08)
[2020-03-29] MEDS: PANTOPRAZOLE 40 MG 10ML VIAL IV SCH ×2 (09:08→17:13)
--- NOTE | 2020-03-29 10:03 | Progress Note ---
DATE: 03/29/2020 CHIEF COMPLAINT/HISTORY OF PRESENT ILLNESS: This is a 35-year-old man, whose primary treating diagnosis is acute hypoxic respiratory failure secondary to bilateral COVID pneumonia. The patient is currently intubated and on a ventilator. The patient's hemoglobin today is 8.8 g/dL, white cell count 5600 with 73% segmented neutrophils. The patient's BUN and creatinine today is 24 and 0.9 respectively. Potassium 3.5. The patient's B-type natriuretic peptide level is 106. The patient's magnesium was 1.6. X-ray performed yesterday March 28, 2020, revealed bilateral airspace opacities right greater than left, essentially unchanged from previous chest x-rays. REVIEW OF SYSTEMS: As per HPI. PHYSICAL EXAMINATION: GENERAL: He is sedated and on a ventilator. He is no longer responding to staff as he was doing previously. VITAL SIGNS: The patient's oxygen saturation is 100% on FiO2 of 40%. Blood pressure 150/94, pulse is 100, respiratory rate 22, temperature 98.8, and BMI 33. INTEGUMENT: Skin is warm and dry. Slight pallor. No jaundice or diaphoresis. The patient has a 5 x 5 cm unstageable sacral decubitus ulcer. HEENT: Anicteric sclerae. The patient has orogastric and endotracheal tube in place. NECK: Supple. CARDIOVASCULAR: Tachycardic rate. Regular rhythm. LUNGS: The patient has chronic crackles and rhonchi bilaterally. ABDOMEN: Soft with normal bowel sounds. G-tube placed. EXTREMITIES: No edema. NEUROLOGIC: He is a less responsive and no longer interactive according to nursing staff. DIAGNOSES: 1. Cardiopulmonary arrest secondary to acute hypoxic event (March 27, 2020). 2. Acute respiratory failure secondary to bilateral COVID-19 pneumonia. 3. Ventilator dependent. 4. Acute on chronic anemia likely secondary to hemorrhage, resolved. 5. Acute right lower extremity deep venous thrombosis. 6. Unstageable sacral decubitus ulcer. 7. Type 2 diabetes mellitus. PLAN: 1. Follow hemoglobin and hematocrit. 2. We will not restart enoxaparin at this time. 3. Attempt to wean the patient off ventilator. 4. We will follow the patient's cognitive status since he may have anoxic brain injury secondary to recent cardiopulmonary arrest. 5. Continue supportive care. 6. Continue nutritional support. 7. Continue wound care to the patient's unstageable sacral decubitus ulcer. 8. Continue watchful waiting. I spent 30 minutes in the care of this intensive care unit patient. MD OLVIN Blackburn/FREDY /[id number]
--- NOTE | 2020-03-29 12:19 | Progress Note ---
DATE: SUBJECTIVE: Mr. Love remains in intensive care unit. Two chest tube in. He was able to cough today which was noted. The patient remains on antibiotic. There is no new event. The patient, who is a 35-year-old comes in with COVID-19 pneumonia, developed DVT, had to be on anticoagulation, developed pneumonia probably aspiration, healthcare-associated. He got better, but than we had to do a trach. He had a trach and PEG. He has been here for 4 weeks. His COVID-19 remains positive. The patient had bleed around the trach, which led to pulmonary cardiac arrest to pneumothorax bilateral, status post two chest tube, remains on the ventilator, sedated. OBJECTIVE: VITAL SIGNS: His vitals otherwise stable. GENERAL: Sedated. HEENT: Normocephalic. NECK: Trach. CHEST: Few crackles. HEART: S1 and S2. No S3, S4, or murmurs. ABDOMEN: Soft. Bowel sounds present. EXTREMITIES: No edema. IMPRESSION: Status post cardiopulmonary arrest event on March 27, acute respiratory failure, COVID-19 pneumonia, vent-dependent, [id number] anemia, acute right lower extremity deep venous thrombosis, unstageable decubitus ulcer, type 2 diabetes mellitus, neuropathy, and anemia. The plan is to continue supportive care. We will stop his antibiotic soon, this is day #2. He is currently on Zyvox and meropenem. Reviewed his cultures. Reviewed his x-ray. Discussed with the medical team. MD HARVEY Alexis/FREDY /[id number]
--- NOTE | 2020-03-29 18:00 | Progress Note ---
DATE: SUBJECTIVE: The patient remains on PRVC mode of ventilation. When his sedation is stopped, he does respond to his name. His responses are slower than before. He has less subcutaneous emphysema. Both chest tubes have no air leak. PHYSICAL EXAMINATION: VITAL SIGNS: The patient is afebrile. The blood pressure is 117/80 and the saturation is 95%. The pulse is 103. HEENT: Shows no facial swelling or erythema. CARDIAC: Reveals a regular rate and rhythm with normal S1 and S2. LUNGS: Auscultation of lungs reveals decreased breath sounds at the bases. There is no wheezing. ABDOMEN: Soft and nontender. There is no rebound or guarding. EXTREMITIES: Shows no leg edema or calf tenderness. There is no cyanosis or clubbing. SKIN: Shows no rashes. LABORATORY DATA: White blood cell count is 5.6 and the hemoglobin is 8.8. The platelet count is 324. The BUN to creatinine ratio is 24 to 0.9. The sodium is 148. IMPRESSION: 1. Acute respiratory failure. 2. Bilateral pneumothoraces. 3. Anoxic brain injury. 4. COVID-19 infection. 5. Deep vein thrombosis. 6. Sacral decubitus ulcer. 7. Diabetes. PLAN: 1. Continue PRVC mode of ventilation for now. 2. Monitor mental status and response. 3. Discuss replacing tracheostomy with General Surgery. 4. Continue insulin drip. Severiano Crow MD [facility]/MARSAHLL /[id number]
[2020-03-29] MEDS ORDERED: HEPARIN 25,000 UNIT 1,500 UNIT in DEXTROSE 5% 250ML 250 ML IV SCH ×5 (18:15→18:45)
[2020-03-30] VITALS (29 sets, daily range): BP systolic 100–165; BP diastolic 47–94
[2020-03-30] MEDS: FENTANYL 2,000 MCG/250 ML BAG IV PRN ×2 (01:27→12:53)
[2020-03-30] MEDS: PROPOFOL IV EMULSION 10 MG/ML 50 ML VIAL IV PRN ×3 (05:10→14:24)
[2020-03-30 05:51] LABS: BASOPHILS % 0.2 % (0.0-1.0); EOSINOPHILS # (AUTO) 0.2 (0.0-0.4); EOSINOPHILS % 1.9 % (0.0-6.0); HEMATOCRIT 29.2 % (38.2-49.6); LYMPHOCYTES # (AUTO) 0.8 (1.0-3.2); LYMPHOCYTES % 9.6 % (18.0-39.1); MEAN CORPUSCULAR HEMOGLOBIN 25.1 pg (28-32); MEAN CORPUSCULAR HGB CONC 30.8 g/dL (31-35); MEAN CORPUSCULAR VOLUME 81.6 fL (81-99); MONOCYTES % 11.8 % (4.4-11.3); NEUTROPHILS # (AUTO) 6.3 (2.1-6.9); NEUTROPHILS % 75.9 % (38.7-80.0); PLATELET COUNT 337 x10e3/uL (140-360); RED BLOOD COUNT 3.58 x10e6/uL (4.3-5.7)
[2020-03-30 06:24] LABS: ALANINE AMINOTRANSFERASE 20 IU/L (0-55); ALBUMIN 1.8 g/dL (3.5-5.0); ALBUMIN/GLOBULIN RATIO 0.4 (0.8-2.0); ALKALINE PHOSPHATASE 89 IU/L (40-150); ANION GAP 10.7 mmol/L (8-16); BLOOD UREA NITROGEN 22 mg/dL (7-26); BUN/CREATININE RATIO 25 (6-25); CALCIUM 8.3 mg/dL (8.4-10.2); CARBON DIOXIDE 37 mmol/L (22-29); CHLORIDE 102 mmol/L (98-107); CREATININE, SERUM 0.87 mg/dL (0.72-1.25); EST GLOMERULAR FILTRATION RATE > 60 ML/MIN (60-); GLUCOSE 95 mg/dL (74-118); POTASSIUM 3.7 mmol/L (3.5-5.1); SODIUM 146 mmol/L (136-145)
[2020-03-30] MEDS: LINEZOLID 600 MG/D5W 300ML 300 ML IV SCH ×2 (07:41→20:22)
[2020-03-30] MEDS: SODIUM HYPOCHLORITE 0.25% 480 ML SOLN IR SCH (07:46)
[2020-03-30] MEDS: PANTOPRAZOLE 40 MG 10ML VIAL IV SCH ×2 (08:00→16:33)
[2020-03-30] MEDS: LABETALOL HCL 5 MG/ML 20ML VIAL IV PRN (08:23)
[2020-03-30] MEDS: MEROPENEM 500MG/ NS 50ML 50 ML IV SCH ×2 (08:23→21:47)
--- NOTE | 2020-03-30 08:53 | NUR ---
Referral by RN. Pt's father requested prayer. [employer] called pt's father and provided empathic listening and emotional support. Will continue to follow as able. [facility] O: [phone]
[2020-03-30] MEDS ORDERED: FUROSEMIDE INJ 10 MG/ML 4 ML VIAL IV ONE (09:20)
--- NOTE | 2020-03-30 10:08 | Progress Note ---
DATE: 03/30/2020 CHIEF COMPLAINT/HISTORY OF PRESENT ILLNESS: This is a 35-year-old man, whose primary treating diagnosis is acute on chronic hypoxic respiratory failure secondary to ARDS from bilateral COVID-19 pneumonia. The patient unfortunately suffered a cardiopulmonary arrest secondary to profound hypoxia on Friday, March 27, 2020. The patient's tracheostomy tube was decannulated and he was intubated endotracheally by the emergency room physician. Today, the patient is scheduled for tentative tracheostomy tube replacement. The patient's blood work today revealed a white blood cell count 8200 with 75% segmented neutrophils. Hemoglobin is 9 g/dL. The patient's BUN and creatinine today is 22 and 0.87 respectively. The patient's albumin is 1.8. Potassium 3.7. The patient's last COVID-19 test was on March 22, 2020, and it was positive. The patient underwent x-ray yesterday on March 29, 2020, which revealed unchanged bilateral patchy consolidations, right worse than left. The patient still has bilateral chest tubes. No obvious pneumothorax appreciated. The subcutaneous emphysema seems to be resolving. On March 23, 2020, the patient underwent 2D echocardiogram which revealed preserved left ventricular ejection fraction 62%, but it also revealed impaired relaxation consistent with diastolic heart failure. REVIEW OF SYSTEMS: As per HPI. PHYSICAL EXAMINATION: GENERAL: He is sedated on the ventilator. He is on AC mode, his oxygen saturation 96% on FiO2 of 40%. VITAL SIGNS: Heart rate 104, blood pressure 144/62, heart rate 18, temperature 97.3. INTEGUMENT: Skin is warm and dry. Slight pallor, jaundice, or diaphoresis. The patient has unchanged 5 x 5 cm unstageable sacral decubitus ulcer with eschar covered at center. There is granulation tissue on the periphery. Does not seem to be worsening. HEENT: Anicteric sclerae with moist mucous membranes. The patient only has an endotracheal tube in place. No orogastric tube. NECK: Supple. CARDIOVASCULAR: Tachycardic rate and regular rhythm. LUNGS: Crackles and rhonchi bilaterally. ABDOMEN: Soft. He has G-tube in place, which is functional. EXTREMITIES: No edema or deformity. NEUROLOGIC: He is sedated on the ventilator and neurologic nursing staff states that he does acknowledge his name and will squeeze the nurse's hand purposely. In fact, he will look towards the nurse if the ipsilateral shoulder is touched. DIAGNOSES: 1. Recent cardiopulmonary arrest secondary to profound hypoxia, resolved. 2. Acute hypoxic respiratory failure secondary to acute respiratory distress syndrome from bilateral COVID-19 pneumonia. 3. Bilateral pneumonia, likely gram-negative cristhian. 4. Acute pulmonary edema secondary to acute diastolic heart failure. 5. Acute right lower extremity deep venous thrombosis. 6. Anemia secondary to chronic disease. 7. Type 2 diabetes mellitus. 8. Unstageable sacral decubitus ulcer. PLAN: 1. We will proceed with tentative tracheostomy tube placement today. 2. We will resume tube feeds via the G-tube after tracheostomy tube is replaced. 3. We will proceed with long-term acute care facility transfer in the near future. 4. Continue wound care to the patient's sacral decubitus ulcer. 5. We will follow hemoglobin and hematocrit. 6. We will anticoagulate judiciously, but will not start anticoagulation for at least 24 hours postoperatively. 7. We will administer intravenous furosemide for the patient's acute pulmonary edema. 8. We will continue weaning the patient's FiO2. I spent 35 minutes in the care of this intensive care unit patient. MD OLVIN Blackburn/FREDY /[id number] MTDD
--- NOTE | 2020-03-30 11:08 | NUR ---
The patient unfortunately suffered a cardiopulmonary arrest secondary to profound hypoxia on Friday, March 27, 2020. The patient's tracheostomy tube was decannulated and he was intubated endotracheally by the emergency room physician. Today, the patient is scheduled for tentative tracheostomy tube replacement. The patient's blood work today revealed a white blood cell count 8200 with 75% segmented neutrophils. Hemoglobin is 9 g/dL. The patient's BUN and creatinine today is 22 and 0.87 respectively. The patient's albumin is 1.8. Potassium 3.7. The patient's last COVID-19 test was on March 22, 2020, and it was positive. The patient underwent x-ray yesterday on March 29, 2020, which revealed unchanged bilateral patchy consolidations, right worse than left. The patient still has bilateral chest tubes. No obvious pneumothorax appreciated. The subcutaneous emphysema seems to be resolving. On March 23, 2020, the patient underwent 2D echocardiogram which revealed preserved left ventricular ejection fraction 62%, but it also revealed impaired relaxation consistent with diastolic heart failure. REVIEW OF SYSTEMS:[id number]
--- NOTE | 2020-03-30 13:19 | Progress Note ---
DATE: SUBJECTIVE: Mr. Love was a little bit agitated today, remains on the ventilator, remains with two chest tube in, going to replacement of the trach. This is a 35-year-old gentleman, who comes in with COVID-19 pneumonia bilateral ARDS, has been on ventilator day #41 in the hospital. The patient has a trach. Unfortunately, he had an episode of hypoxemia. The patient had to have a CPR. He is currently agitated. We are concerned about the possibility of anoxic brain injury. He also has subcutaneous emphysema, which also has been helping. The patient had an echocardiogram, which revealed preserved left ventricle ejection fraction, but had diastolic congestive heart failure. REVIEW OF SYSTEMS: He is just agitated. PHYSICAL EXAMINATION: GENERAL: He is on a ventilator. HEENT: Not icteric. NECK: Oral intubated and trach. CHEST: Few crackles bilateral. HEART: S1 and S2. No S3, S4, or murmur. ABDOMEN: Soft. Bowel sounds present. No tenderness. EXTREMITIES: No edema. IMPRESSION: 1. COVID-19 pneumonia with acute respiratory distress syndrome. 2. He is currently on antibiotics. Concern about aspiration, but so far he is doing good, can discontinue. 3. Bilateral chest tube. 4. Bilateral pneumothorax pressure. 5. Respiratory failure. 6. Concern about anoxic brain injury. 7. History of deep venous thrombosis. 8. We will follow. MD HARVEY Alexis/FREDY /[id number]
[2020-03-30] MEDS ORDERED: BUPIVACAINE HCL 0.5% INJ 30 ML VIAL INJ ONE (14:22)
[2020-03-30] MEDS ORDERED: FENTANYL CITRATE/PF 100MCG/2 ML INJ ONE (14:34)
[2020-03-30] MEDS ORDERED: MIDAZOLAM HCL 2 MG/2 ML VIAL ONE (14:34)
[2020-03-30 18:14] LABS: ABG HCO3 40 mmol/L (22-26); ABG PCO2 53 mmHg (35-45); ABG PH 7.48 (7.35-7.45)
[2020-03-30] MEDS ORDERED: LIDOCAINE HCL 2% LOCAL INJ 5 ML SDV VIAL INJ ONE (18:15)
[2020-03-30] MEDS ORDERED: PROPOFOL IV EMULSION 10 MG/ML 20 ML VIAL ONE (18:15)
[2020-03-30] MEDS ORDERED: ROCURONIUM BROMIDE 10 MG/ML 5ML VIAL IV ONE (18:15)
--- NOTE | 2020-03-30 18:15 | Progress Note ---
DATE: SUBJECTIVE: The patient does respond to his name and follows simple commands when sedation is held. He remains on a PRVC mode of ventilation. He has no fevers. Cardiac exam reveals regular rate and rhythm. He does not have a fever. He is not having any pain in his chest. PHYSICAL EXAMINATION: VITAL SIGNS: The patient is afebrile. The vital signs are stable. HEENT: Shows no facial swelling or erythema. LYMPHATIC: Shows no submandibular, cervical, or supraclavicular adenopathy. Tracheostomy site is bandaged. There is a 7.0 endotracheal tube. CARDIAC: Reveals a regular rate and rhythm with normal S1 and S2. ABDOMEN: Soft, nontender. There is no rebound or guarding. EXTREMITIES: There is left leg edema. As well as some right leg edema. LABORATORY DATA: White blood cell count is 8.2 and hemoglobin is 9. The platelet count of 337. The BUN to creatinine ratio is normal. The other electrolytes are within normal limits. Albumin is 1.8. IMPRESSION: 1. Acute respiratory failure. 2. Bilateral pneumothoraces and subcutaneous emphysema. 3. Possible anoxic brain injury. 4. DVT of the lower extremity. 5. Diabetes. 6. Decubitus ulcer. 7. Anemia. PLAN: 1. The patient is scheduled to have a replacement of his tracheostomy today. 2. We will continue enteral feedings. 3. Repeat ABG. 4. Continue to monitor chest tube for any air leak. 5. Daily chest x-ray. 6. Case discussed with nursing, Respiratory, Internal Medicine and General Surgery. Severiano Crow MD [facility]/FREDY /[id number]
--- NOTE | 2020-03-30 18:18 | NUR ---
TRACH REVISION DONE AT BEDSIDE WITH O.R. TEAM COMPLETED. PATIENT TOLERATED WELL
--- NOTE | 2020-03-30 19:17 | Diagnostic Imaging Report ---
EXAMINATION: CHEST SINGLE (PORTABLE) COMPARISON: Chest x-ray 03/29/2020 INDICATION: ^TRACH REVISION/ RESP FAILURE ^[id number] ^[id number] DISCUSSION: Frontal view of the chest obtained at 1859 hours. HEART AND MEDIASTINUM: The cardiomediastinal silhouette is unremarkable. LINES: Tracheostomy is midline in position. Left chest tube terminates over the left hilum and is stable in position. Right chest tube is horizontal in orientation and terminates at the right hilum and is stable in position. Left PICC line terminates in the SVC. LUNGS/PLEURA: Multifocal infiltrates are redemonstrated, right lung more severe than the left, without significant change. No large effusions. There is a skinfold or pneumothorax in the inferolateral aspect of the left chest. No evidence of right pneumothorax. BONES AND SOFT TISSUES: No focal osseous lesion. The soft tissues are normal. IMPRESSION: 1. No change in multifocal infiltrates. 2. Stable medical devices. 3. Skinfold versus pneumothorax in the inferior left chest. Attention should be paid on subsequent studies. No evidence of right pneumothorax. Signed by: Dr. Khadar Barrett MD on 03/30/2020 7:13 PM
[2020-03-31] VITALS (24 sets, daily range): BP systolic 102–183; BP diastolic 68–88
[2020-03-31] MEDS: INSULIN REGULAR, HUMAN 3ML VL 100 UNIT in SODIUM CHLORIDE 0.9% 100 ML IV SCH ×2
[2020-03-31] MEDS: PROPOFOL IV EMULSION 10 MG/ML 50 ML VIAL IV PRN ×5 (01:55→19:00)
[2020-03-31] MEDS: FENTANYL 2,000 MCG/250 ML BAG IV PRN ×2 (01:58→18:11)
--- NOTE | 2020-03-31 02:01 | Operative Report ---
DATE OF PROCEDURE: 03/30/2020 SURGEON: Osmin Jackson MD PREOPERATIVE DIAGNOSIS: Atypical pneumonia secondary to coronavirus disease infection. POSTOPERATIVE DIAGNOSIS: Atypical pneumonia secondary to coronavirus disease infection. PROCEDURE PERFORMED: Replacement of tracheostomy tube. ANESTHESIA: General; Dr. Casarez. INDICATIONS: A 35-year-old male with history of COVID-19 pneumonia, required ventilator management. The patient had endotracheal tube replaced after a code blue incidence of respiratory arrest a few days back. The patient's condition has improved along with his mental status. The patient's family has consented for replacement of tracheostomy tube. Attendant risks discussed. DESCRIPTION OF PROCEDURE: The patient was in the ICU and in the supine position. The neck was prepped in a sterile fashion with Betadine and draped. A self-retaining retractor was then placed into the neck wound and the depth of the wound was examined revealing the tracheotomy with the balloon of the ET tube visible. At this point, the anesthesiologist proceeded to deflate the balloon of the ET tube and slowly pulled out towards the mouth. The lip of the tracheotomy opening was grasped with Allis clamp and retracted anteriorly, and then extended tracheostomy tube, 8-Azerbaijani was used to insert into the trachea with the balloon inflated to proper tension. The tracheostomy tube was then connected to the ventilator registering good gas exchange and tidal volume. Surgicel was placed in the wound next to the tracheostomy tube, which was then secured with 2-0 Prolene stitches as well as tracheal tie. Dressing applied. The patient tolerated the procedure well. Estimated blood loss was 3 mL. Osmin Jackson MD D[facility]/MODL /[id number]
[2020-03-31] MEDS: LABETALOL HCL 5 MG/ML 20ML VIAL IV PRN ×2 (03:39→22:00)
[2020-03-31 05:17] LABS: BASOPHILS % 0.2 % (0.0-1.0); EOSINOPHILS # (AUTO) 0.1 (0.0-0.4); EOSINOPHILS % 1.3 % (0.0-6.0); HEMATOCRIT 27.9 % (38.2-49.6); HEMOGLOBIN 8.5 g/dL (14.0-18.0); LYMPHOCYTES # (AUTO) 0.9 (1.0-3.2); LYMPHOCYTES % 9.9 % (18.0-39.1); MEAN CORPUSCULAR HEMOGLOBIN 24.9 pg (28-32); MEAN CORPUSCULAR HGB CONC 30.5 g/dL (31-35); MEAN CORPUSCULAR VOLUME 81.6 fL (81-99); MONOCYTES % 11.5 % (4.4-11.3); NEUTROPHILS # (AUTO) 6.6 (2.1-6.9); NEUTROPHILS % 76.5 % (38.7-80.0); PLATELET COUNT 288 x10e3/uL (140-360); RED BLOOD COUNT 3.42 x10e6/uL (4.3-5.7); RED CELL DISTRIBUTION WIDTH 16.2 % (11.7-14.4)
[2020-03-31 05:30] LABS: ALANINE AMINOTRANSFERASE 16 IU/L (0-55); ALBUMIN 1.8 g/dL (3.5-5.0); ALBUMIN/GLOBULIN RATIO 0.4 (0.8-2.0); ALKALINE PHOSPHATASE 74 IU/L (40-150); ANION GAP 10.4 mmol/L (8-16); BLOOD UREA NITROGEN 21 mg/dL (7-26); BUN/CREATININE RATIO 25 (6-25); CALCIUM 8.1 mg/dL (8.4-10.2); CARBON DIOXIDE 37 mmol/L (22-29); CHLORIDE 100 mmol/L (98-107); CREATININE, SERUM 0.84 mg/dL (0.72-1.25); EST GLOMERULAR FILTRATION RATE > 60 ML/MIN (60-); GLUCOSE 119 mg/dL (74-118); POTASSIUM 3.4 mmol/L (3.5-5.1); SODIUM 144 mmol/L (136-145)
[2020-03-31 05:43] LABS: INR 1.12; PROTHROMBIN TIME 15.1 seconds (11.9-14.5)
[2020-03-31] MEDS ORDERED: POTASSIUM CHLORIDE 20MEQ/15ML UDC PEG ONE (07:40)
[2020-03-31] MEDS: LINEZOLID 600 MG/D5W 300ML 300 ML IV SCH ×2 (08:37→21:28)
[2020-03-31] MEDS: MEROPENEM 500MG/ NS 50ML 50 ML IV SCH ×2 (08:38→21:28)
[2020-03-31] MEDS: SODIUM HYPOCHLORITE 0.25% 480 ML SOLN IR SCH (08:38)
[2020-03-31] MEDS: PANTOPRAZOLE 40 MG 10ML VIAL IV SCH ×2 (08:38→16:45)
[2020-03-31] MEDS: FUROSEMIDE INJ 10 MG/ML 4 ML VIAL IV SCH (08:38)
[2020-03-31] MEDS ORDERED: POTASSIUM CHLORIDE 20MEQ/15ML UDC GT ONE (08:55)
--- NOTE | 2020-03-31 08:56 | Progress Note ---
DATE: 03/31/2020 CHIEF COMPLAINT/HISTORY OF PRESENT ILLNESS: This is a 35-year-old man, whose primary treating diagnosis is acute hypoxic respiratory failure secondary to bilateral COVID-19 pneumonia. Yesterday, the patient underwent tracheostomy tube replacement, which he tolerated quite well. Today, the patient was found to have a white blood cell count of 8600 with 76% segmented neutrophils. The patient's hemoglobin is 8.5 g/dL. The patient's BUN and creatinine are 21 and 0.84 respectively. The patient's potassium is 3.4. The patient's albumin is 1.8 g/dL. The patient underwent a chest x-ray yesterday on March 30, 2020, which revealed persistent bilateral multifocal infiltrates as well as bilateral chest tubes in place. No obvious pneumothoraces were appreciated by the radiologist on this chest film. The nursing staff states the patient is much more interactive today. In fact, he follows simple directions. REVIEW OF SYSTEMS: As per HPI. PHYSICAL EXAMINATION: GENERAL: He is sedated with propofol, but he does follow simple commands. Much more alert. He is on AC mode. VITAL SIGNS: Oxygen saturation is 93% on an FiO2 of 40%, heart rate is 110, respiratory rate is 18, blood pressure 154/82, pulse 98.7, BMI 32. INTEGUMENT: Skin is warm and dry. Slight pallor. No jaundice or diaphoresis. The patient has a stable 5/5 unstageable sacral decubitus ulcer, which is not worsening. He does have an eschar covered at center. HEENT: Anicteric sclerae. NECK: Supple. He has tracheostomy tube in place, connected to ventilator as previous stated. CARDIOVASCULAR: Distant heart sounds. Tachycardic rate and regular rhythm. LUNGS: The patient has crackles and rhonchi in the bilateral lung alvarado. He has bilateral chest tubes in place. ABDOMEN: Soft. He has G-tube in place, which is functional. EXTREMITIES: No edema or deformity. NEUROLOGIC: He is sedated. He is globally weak from ICU myopathy. No gross focal deficits appreciated. Once again, he does follow simple commands. He seems to interact appropriately with staff. DIAGNOSES: 1. Acute hypoxic respiratory failure, secondary to bilateral COVID-19 pneumonia. 2. Bilateral pneumonia, likely gram-negative cristhian, resolving. 3. Recent cardiopulmonary arrest, secondary to hypoxia, resolved. 4. Ventilator dependent. 5. Right lower extremity deep venous thrombosis. 6. Anemia, secondary to chronic disease. 7. Unstageable sacral decubitus ulcer. PLAN: 1. Follow hemoglobin and hematocrit. 2. Continue intravenous antibiotics. 3. Continue supportive care. 4. Continue ventilator weaning. 5. Continue to wean the patient's FiO2. 6. Continue wound care to the patient's sacral decubitus ulcer. 7. Continue nutritional support with tube feeds. 8. Replete potassium level. 9. Continue intravenous furosemide. 10. LTAC transfer tentatively FridayApril 03. I spent 35 minutes in the care of this intensive care unit patient. MD OLVIN Blackburn/FREDY /[id number] MTDD
--- NOTE | 2020-03-31 10:16 | Diagnostic Imaging Report ---
X-ray chest AP portable Comparison: 03/30/2020 History: Acute respiratory failure Findings: The tracheostomy tube is seen with the tip at thoracic inlet. No change in bilateral chest tubes. No change in the left arm PICC line with the tip overlying SVC. Heart size normal. Possible layering pleural effusion. Large right pneumothorax. Smaller left pneumothorax. No significant change in the overall appearance of the pulmonary findings which consisted of heterogeneous interstitial and airspace type opacities in the bilateral multisegmental fashion. Presence of air along the course of the left chest tube in the lateral chest wall. Impression: The pleural effusion on the right side has decreased. Worsening right pneumothorax. I called the report to the ICU nurse. Signed by: Dionisio Palmer MD on 03/31/2020 10:12 AM
--- NOTE | 2020-03-31 13:33 | NUR ---
Updated clinical faxed to [facility] at [phone]. Anju with [facility] was informed of tentative dc for Friday.
--- NOTE | 2020-03-31 14:00 | NUR ---
AT BEDSIDE, SEDATION INCREASED CHEST TUBE PLACED TO UPPER R CHEST AREA FOR REPORTED PNEUMO. TO WALL SUCTION AT THIS TIME WILL MONITOR CLOSELY. VITALS STABLE AT THIS TIME
--- NOTE | 2020-03-31 14:29 | Diagnostic Imaging Report ---
AP portable chest x-ray Comparison: 03/31/2020 at 9:23 AM History: Status post right apical chest tube placement Findings: There is a right small bore chest tube placement in addition to the existing right and left large bore chest tubes. The tube has been inserted via second intercostal space anteriorly and travels up to the apical pleura. The previously seen pneumothorax on the right side has resolved. There is persistent small pneumothorax on the left side. The right lung has reexpanded but overall shows no change in the diffuse interstitial and airspace disease pattern. Impression: New right anterior apical chest tube with resolution of right pneumothorax. The findings were discussed with Dr. Stewart. Signed by: Dionisio Palmer MD on 03/31/2020 2:25 PM
--- NOTE | 2020-03-31 14:53 | Progress Note ---
DATE: SUBJECTIVE: The patient had his tracheostomy replaced yesterday. He is awake and does follow commands, but he has a partial hemiparesis on the left, but he is weak on the left side. Chest x-ray this morning showed an increase pneumothorax on the right side. He has no visible air leak. The chest tube appears to be in good position. PHYSICAL EXAMINATION: VITAL SIGNS: The blood pressure is 129/79. Saturation is 97%. Pulse is 114. HEENT: Shows no facial swelling or erythema. CARDIAC: Reveals regular rate and rhythm with normal S1, S2. Chest tubes are in place. There is no air leak on either side. Both chest tubes are to suction. There is less subcutaneous emphysema. ABDOMEN: Soft, nontender. There is no rebound or guarding. EXTREMITIES: Show no leg edema or calf tenderness. LABORATORY DATA: White blood cell count is 8.7 and hemoglobin is 8.5. The platelet count is 288. BUN to creatinine ratio is normal. The potassium is 3.8. IMPRESSION: 1. Acute respiratory failure. 2. Bilateral pneumothoraces and subcutaneous emphysema. 3. Possible anoxic brain injury. 4. Deep venous thrombosis lower extremity. 5. Diabetes. 6. Decubitus ulcer. 7. Anemia. PLAN: 1. Continue PRVC mode of ventilation for now. 2. Consult Interventional Radiology for a possible 2nd chest tube anterior on the right side. 3. Continue enteral feedings. 4. Restart heparin tomorrow morning, which will be 6 hours after the surgical procedure. 5. Continue wound care. 6. Continue to monitor and control diabetes. Severiano Crow MD [facility]/MODL /[id number]
--- NOTE | 2020-03-31 14:57 | Diagnostic Imaging Report ---
Request for anterior right chest tube placement by the ICU Dr. Palmer discussed with Dr. Stewart regarding the difficulty in moving this Covid positive ICU patient on multiple life support tubes and lines 2 radiology and also the technique of doing a bedside chest tube for pneumothorax using landmarks. Dr. Stewart was able to perform a chest tube placement successfully. This request was then canceled. Signed by: Dionisio Palmer MD on 03/31/2020 2:53 PM
--- NOTE | 2020-03-31 14:59 | NUR ---
Nutrition Intervention Note RD Recommendation(s) for Physician: - Recommend continuing Vital High Protein. Recommend a goal rate of 60 mL/hr at this time due to current propofol rate (provides 1440 kcal, 126 g protein, and 1204 mL water per day). - current propofol rate provides 317 kcal. - Water flushes per MD. Plan of Care: RD following, monitoring for tolerance and adequacy. TF recs. Nutrition reason for involvement: follow up RD Assessment 03/31: Follow up. Per chart, pts trach was replaced yesterday. Pt is receiving propofol @ 12 mL/hr per RN which provides 317 kcal. Pt is tolerating Vital High Protein @ 45 mL/hr at this time. Recommend increasing rate towards goal rate as medically appropriate. Will continue to monitor 03/28: Follow up. Pt remains intubated and sedated, currently on Fentanyl drip and Propofol drop. Pt s/p cardiopulmonary arrest yesterday requiring CPR and subsequent bilateral chest tube placement. Pt now intubated and trach removed. TF remains off currently, noted last documented TF of 520 ml total received on 03/27. TF rec's provided when feasible to resume. Will continue to monitor. 03/24: Follow up. Pt remains intubated and sedated. Pt is currently receiving propofol @ 37.4 ml/hr per RN which provides 987 kcal. Per MD note, pt is planned to receive a trach and PEG today; therefore, tube feeding is on hold at this time. Will continue to monitor. 03/21: Follow up. Pt remains intubated and sedated, currently on Propofol and Versed. Pt off, CPAP trials, plan to resume TF per RN. Plan for trach placement tomorrow. Chart reviewed. Discussed TF rec's with RN on unit as pt not meeting protein needs and Propofol providing additional kcal. Will continue to monitor. 03/17: Follow up. Pt remains intubated and is sedated on propofol @ 21.8 mL/hr which provides 575 kcal. Pt is tolerating tube feeding and is receiving Nepro @ 40 mL/hr. Recommend modifying formula to Vital High Protein. Informed RN of recommendation. Will continue to monitor. 03/13: Follow up. Pt remains intubated and sedated, off Propofol and continues on Fentanyl drip. Pt continues on TF of Nepro at 40 ml/hr, no dialysis initiated and renal trend improving. TF meeting current estimated needs. Current rec's remain appropriate. Chart reviewed. Will continue to monitor. 03/08: Follow up. Pt remains intubated and sedated on Propofol and Fentanyl drips. No pressor support. Pt on TF of Nepro at 40 ml/hr. Renal trend noted, no dialysis currently. TF meeting estimated kcal and protein needs per current renal trend. TF rec's provided pending dialysis initiation and continued Propofol use. Chart reviewed. Will continue to monitor. 03/03: Follow up. Pt remains mechanically ventilated. Pt is receiving Glucerna 1.2 @ 40 ml/hr per chart. Pt is receiving 26.7 mL/hr of propofol which provides 705 kcal. Recommend modifying formula to Vital High Protein. Will continue to monitor. 02/28: Follow up. Pt remains intubated, sedated with Propofol and fentanyl drip. Pt not currently on pressors. TF currently off per am documentation, previously infusing at 20 ml/hr on 02/27 and 02/26- not meeting needs. Pt with increased water flushes per MD 2/2 hypernatremia. Chart reviewed. TF rec's relayed to RN. Will continue to monitor. 02/24: Follow up. Pt remains mechanically ventilated. Per RN, pt is tolerating tube feeding of Glucerna 1.2 @ 40 mL/hr. Recommend modifying formula to Vital High Protein. RD recommendation provided to nurse. Will continue to monitor. 02/20: 35 YOM admitted for hypoxemia, hyperglycemia with PMH listed below. Physical visit was deferred d/t hospitals infection disease policy. Pt is intubated on fentanyl and propofol. Pt is not on pressors as of now. The nurse reported the pt was ordered pressors over the weekend but has not needed it today. Nurse reported possible ARDS, they have not had to place the pt in the prone position yet. Pt was ordered Glucerna 1.2 at 20 ml/hr advance to goal rate of 60 ml/hr with 100 ml of water every 4 hours (1728 kcal, 86gram protein) . RD recommendations provided above and given to nurse. Unaware of propofol rate d/t not being able to enter the room and nurse not knowing at current time. Nurse reported the pt is currently on 20 ml/hr of Glucerna 1.2. Will continue to monitor. Principal Problems/Diagnoses: hypoxemia, hyperglycemia PMH: Uncontrolled type 2 diabetes mellitus. GI: last recorded BM 03/20 Skin: unstagable sacral PU Labs: 03/31: Na 144, K 3.4, BUN 21, Cr 0.84, Glu 119 03/28: Na 148, K 4, BUN 27, Cr 0.88, Gluc 119, POC Gluc 131-152 03/24: Na 142, K 3.9, BUN 22, Cr 0.76, Glu 127 03/21: Na 145, K 3.9, BUN 22, Cr 0.88, Gluc 186, POC Gluc 98- 200 03/17: Na 144, K 3.8, BUN 26, Cr 0.86. Glu 200 03/13: Na 141, K 3.6, BUN 39, Cr 1.13, Gluc 245, POC Gluc 261-286 03/08: Na 142, K 4.4, BUN 54, Cr 1.42, Gluc 323, POC Gluc 316-336 Meds: propofol, meropenem, lasix, protonix, fentanyl, insulin Ht:71 in Wt:231 lbs (03/31) 225 lbs (03/24) 220 lbs (03/17) 212 lbs (02/27) 215 lbs (02/23) 213 lb (02/20) BMI:32.2 kg/m^2 IBW:172 lbs Malnutrition Evaluation (03/21) -unable to perform nutrition assessment, isolation precautions for COVID-19 Nutrition Prescription (Diet Order): NPO/no tube feed order, but pt is currently receiving Vital High Protein @ 45 mL/hr Estimated Nutritional Needs: Calories: 2877-0836 kcal/day (20- 25 kcal/kg/day) Weight used : IBW (78 kg) Protein : 94 156 g protein/day (1.2-2 gram/kg/day ) Weight used: IBW (78 kg) Diet Adequacy: not meeting kcal needs, meeting protein needs at current tube feed rate Diet Education Needs Assessment: Diet education not indicated, patient on temporary/transition diet. Nutrition Care Level: moderate Nutrition Diagnosis: Inadequate energy intake related to medical condition as evidenced by the pt needing mechanical ventilation and need for TF to meet energy and protein needs. Goal: Patient will meet 75-100% of estimated needs by follow up Progress: progressing Interventions: -TF (Composition, Rate, Route),Recommended Modifications, Collaboration with other providers Monitoring/Evaluation: -Total energy intake, Total protein intake, Formula/Solution Signed: Hazel Alonzo RD, LD
--- NOTE | 2020-03-31 17:43 | Progress Note ---
DATE: SUBJECTIVE: Mr. Love has undergone pneumothorax. The patient had another chest tube placed today by Dr. Crow. The patient seemed to be little bit more alert. He is currently on the vent. This patient, who comes with COVID-19 and got complicated with DVT, prolonged ventilation, trach, status post bleeding around the trach, status post cardiac arrest, status post 2 pneumothorax bilateral. Currently doing better. His most COVID-19 remains positive as of 03/22 and we will repeat it again today. PHYSICAL EXAMINATION: GENERAL: Currently intubated, sedated. VITAL SIGNS: Stable, afebrile. HEENT: He is not icteric. NECK: Supple. CHEST: Few crackles. COR: S1 and S2. No S3, S4, or murmurs. ABDOMEN: Soft. Bowel sounds positive. No tenderness. EXTREMITIES: No edema. SKIN: No rash. IMPRESSION: 1. Bilateral pneumothorax, COVID-19. 2. Respiratory failure. 3. Status post cardiac arrest, concerned about anoxic brain injury, so far is stable. Continue with supportive care. Await recheck COVID-19. MD HARVEY Alexis/MODL /[id number]
--- NOTE | 2020-03-31 20:04 | Operative Report ---
DATE OF PROCEDURE: SURGEON: Severiano Crow MD PROCEDURE: Percutaneous chest tube placement. preoperative diagnosis recurrent right-sided pneumothorax and a ventilated patient. POSTOPERATIVE DIAGNOSIS: Recurrent right-sided pneumothorax and a ventilated patient. CONSENT: Consent was obtained from the father and brother. ANESTHESIA: The patient was on a Diprivan drip at the time. 1% lidocaine was used for local anesthesia. DESCRIPTION OF PROCEDURE: The patient was placed in a supine position. He was prepped sterilely with chlorhexidine. The area between the 2nd intercostal space in the midclavicular line was anesthetized with 1% lidocaine. An 18-gauge needle was used to enter the pleural space. The pressure was relieved. A wire was then placed through the needle. Dilators were used to open the skin and a 12-English catheter was placed over the wire by the Seldinger technique. The chest tube was suctioned in place and placed in a Pleur-evac with negative suction. COMPLICATIONS: None. Postoperative chest x-ray confirms resolution of the pneumothorax and good position of the tube. ESTIMATED BLOOD LOSS: None. Severiano Crow MD [facility]/MODL /[id number]
--- NOTE | 2020-03-31 23:42 | NUR ---
NOTIFIED DR. Terra CABRAL OF PERSISTENT HTN ([id number]) ALTHOUGH LABETALOL WAS ADMINISTERED. PT AWAKE, NOT RESTING BUT COMFORTABLE AND TOLERATING VENT. NEW ORDER RECEIVED TO INCREASE PROPOFOL. CURRENT DOSE IS 20 MCG AND FENTANYL IS AT 150 MCG. WILL INCREASE SEDATION APPROPRIATE AND CONTINUE TO MONITOR. Addendum: 04/01/20 at 0320 by Ann Marie Gabriel RN PROPOFOL INCREASED TO 32 MCG & FENTANYL @ 150 MCG. BP 116/50 & HR 102. PT RESTING COMFORTABLY.
[2020-04-01] VITALS (25 sets, daily range): BP systolic 109–194; BP diastolic 54–97
[2020-04-01] MEDS: PROPOFOL IV EMULSION 10 MG/ML 50 ML VIAL IV PRN ×5 (02:17→21:00)
[2020-04-01 06:04] LABS: BASOPHILS % 0.1 % (0.0-1.0); EOSINOPHILS # (AUTO) 0.2 (0.0-0.4); EOSINOPHILS % 2.8 % (0.0-6.0); HEMATOCRIT 26.9 % (38.2-49.6); HEMOGLOBIN 8.4 g/dL (14.0-18.0); LYMPHOCYTES # (AUTO) 0.8 (1.0-3.2); LYMPHOCYTES % 10.5 % (18.0-39.1); MEAN CORPUSCULAR HEMOGLOBIN 25.1 pg (28-32); MEAN CORPUSCULAR HGB CONC 31.2 g/dL (31-35); MEAN CORPUSCULAR VOLUME 80.5 fL (81-99); MONOCYTES # (AUTO) 0.9 (0.2-0.8); MONOCYTES % 11.8 % (4.4-11.3); NEUTROPHILS # (AUTO) 5.5 (2.1-6.9); NEUTROPHILS % 74.1 % (38.7-80.0); PLATELET COUNT 285 x10e3/uL (140-360); RED BLOOD COUNT 3.34 x10e6/uL (4.3-5.7); RED CELL DISTRIBUTION WIDTH 16.3 % (11.7-14.4)
[2020-04-01 06:23] LABS: ALANINE AMINOTRANSFERASE 14 IU/L (0-55); ALBUMIN 1.7 g/dL (3.5-5.0); ALBUMIN/GLOBULIN RATIO 0.3 (0.8-2.0); ALKALINE PHOSPHATASE 78 IU/L (40-150); ANION GAP 10.7 mmol/L (8-16); BLOOD UREA NITROGEN 21 mg/dL (7-26); BUN/CREATININE RATIO 24 (6-25); CALCIUM 8.3 mg/dL (8.4-10.2); CARBON DIOXIDE 36 mmol/L (22-29); CHLORIDE 99 mmol/L (98-107); CREATININE, SERUM 0.88 mg/dL (0.72-1.25); EST GLOMERULAR FILTRATION RATE > 60 ML/MIN (60-); GLUCOSE 134 mg/dL (74-118); POTASSIUM 3.7 mmol/L (3.5-5.1); SODIUM 142 mmol/L (136-145)
--- NOTE | 2020-04-01 07:24 | Diagnostic Imaging Report ---
EXAMINATION: CHEST SINGLE (PORTABLE) INDICATION: ^resp failure ^[id number] ^[id number] COMPARISON: 03/31/2020 FINDINGS: AP view TUBES and LINES: Stable tracheostomy tube, bilateral chest tubes, and right pleural pigtail catheter LUNGS: Lungs are well inflated. Bilateral airspace opacities, right greater than left. PLEURA: No visible pneumothorax. HEART AND MEDIASTINUM: The cardiomediastinal silhouette is unremarkable. BONES AND SOFT TISSUES: No acute osseous lesion. Soft tissues are unremarkable. UPPER ABDOMEN: No free air under the diaphragm. IMPRESSION: No visible pneumothorax. Redemonstration of bilateral airspace opacities, right greater than left, representing asymmetric edema and/or pneumonia. Suspected small bilateral pleural effusions. Signed by: Dr. Chalo Davis MD on 04/01/2020 7:21 AM
[2020-04-01] MEDS: SODIUM HYPOCHLORITE 0.25% 480 ML SOLN IR SCH (08:23)
[2020-04-01] MEDS: PANTOPRAZOLE 40 MG 10ML VIAL IV SCH ×2 (08:23→16:48)
[2020-04-01] MEDS: MEROPENEM 500MG/ NS 50ML 50 ML IV SCH ×2 (08:23→21:38)
[2020-04-01] MEDS: FUROSEMIDE INJ 10 MG/ML 4 ML VIAL IV SCH (08:23)
[2020-04-01] MEDS: LINEZOLID 600 MG/D5W 300ML 300 ML IV SCH ×2 (08:23→19:59)
[2020-04-01] MEDS: FENTANYL 2,000 MCG/250 ML BAG IV PRN ×2 (08:24→23:41)
--- NOTE | 2020-04-01 13:21 | Progress Note ---
DATE: 04/01/2020 CHIEF COMPLAINT/HISTORY OF PRESENT ILLNESS: This is a 35-year-old man, whose primary treating diagnosis is acute on chronic hypoxic respiratory failure secondary to bilateral COVID-19 pneumonia. Yesterday, the patient had another right-sided chest tube placed because of worsening pneumothorax in the right side seen on chest film. The patient now has two chest tubes on the right and one on the left. Blood work done today revealed a BUN and creatinine of 21 and 0.88 respectively. Potassium is 3.7. The patient's hemoglobin is 8.4 g/dL. White blood cell count is 7400 with 74% segmented neutrophils. The patient underwent coronavirus test by PCR yesterday March 2020, which resulted as negative. REVIEW OF SYSTEMS: As per HPI. PHYSICAL EXAMINATION: GENERAL: He is sedated on a ventilator, but he is arousable. He follows simple commands. He attempts to raise his right upper extremity, much more lucid than previously. VITAL SIGNS: Height is 5 feet 11 inches, weight is 235 pounds, BMI 32. Blood pressure is 138/78, pulse 110, respiratory rate 16, oxygen saturation 98% on ventilator, FiO2 is 40%, temperature 97.8. INTEGUMENT: Skin is warm and dry. Slight pallor. No jaundice or diaphoresis. The patient has a 5 x 5 cm unstageable sacral decubitus ulcer. HEENT: Anicteric sclerae. Moist mucous membranes. NECK: Supple. He has a tracheostomy tube in place connecting the ventilator. CARDIOVASCULAR: Tachycardic rate and regular rhythm. LUNGS: Crackles bilaterally. The patient has one left-sided chest tube and two chest tubes on the right. ABDOMEN: Soft. EXTREMITIES: No edema or deformity. NEUROLOGIC: Intact. DIAGNOSES: 1. Acute hypoxic respiratory failure secondary to bilateral COVID-19 pneumonia. 2. Ventilator dependent. 3. Acute right lower extremity deep venous thrombosis. 4. Type 2 diabetes mellitus. 5. Unstageable sacral decubitus ulcer. 6. Cardiopulmonary arrest from severe hypoxia (March 27, 2020), resolved. PLAN: 1. We will check another coronavirus by PCR tomorrow on April 02, 2020. 2. Continue ventilator support. 3. Continue weaning patient off ventilator. 4. Continue nutritional support. 5. We will consider starting enoxaparin tomorrow 70 mg subcutaneous twice a day for his right lower extremity deep venous thrombosis. 6. We will not restart anticoagulation today since he did have significant bleeding in his tracheostomy tube on Friday, March 27, 2020 that may have precipitated his cardiopulmonary arrest. I spent 35 minutes in the care of this intensive care unit patient. MD OLVIN Blackburn/FREDY /[id number] SHERIF
[2020-04-01] MEDS: HEPARIN 25,000 UNIT 1,500 UNIT in DEXTROSE 5% 250ML 250 ML IV SCH ×2 (15:22→21:30)
[2020-04-01] MEDS ORDERED: BISACODYL 10 MG SUPP PR ONE ×2 (16:04→16:30)
--- NOTE | 2020-04-01 16:28 | Progress Note ---
DATE: SUBJECTIVE: The patient does wake up and follow commands. He has decreased movement on his left side. He remains on fentanyl and propofol. He is on a PRVC mode of ventilation. PHYSICAL EXAMINATION: VITAL SIGNS: The patient is afebrile. The blood pressure is 133/68 and the saturation is 99%. He is on assist-control mode of ventilation. He is on 40% FiO2. HEENT: Shows no facial swelling or erythema. He has a tracheostomy tube that is in good position. He has a right anterior pigtail chest tube. He also has a left intercostal surgical chest tube and a right intercostal surgical chest tube. He has decreased subcutaneous emphysema. CARDIAC: Reveals regular rate and rhythm with normal S1, S2. LUNGS: Auscultation of lungs shows decreased breath sounds at the bases. There is no wheezing. ABDOMEN: Soft, nontender. There is a feeding tube in place. EXTREMITIES: Shows some leg edema, more on the right than the left. LABORATORY DATA: White blood cell count is 7.4 and hemoglobin is 8.4. The platelet count is 285. BUN to creatinine ratio is 21 to 0.88 and the other electrolytes are within normal limits. RADIOGRAPHIC DATA: Chest x-ray shows resolution of the pneumothoraces and subcutaneous emphysema. There are bilateral infiltrates. IMPRESSION: 1. Acute respiratory failure. 2. COVID-19 infection. 3. Deep vein thrombosis. 4. Sacral decubitus wound. 5. Moderate protein-calorie malnutrition. 6. Anoxic brain injury with left hemiparesis. 7. Diabetes. PLAN: 1. The patient will restart on heparin drip today because of his deep vein thrombosis. 2. CPAP trials as tolerated. 3. Physical therapy. 4. Continue enteral feedings. 5. Continue wound care. 6. Complete antibiotics. 7. Case discussed with nursing staff, Respiratory, General Surgery, Radiology, and Internal Medicine. Greater than 35 minutes in direct critical care time. Severiano Crow MD [facility]/MODL /[id number]
[2020-04-01 18:02] LABS: ABG PCO2 54 mmHg (35-45); ABG PH 7.47 (7.35-7.45); ABG PO2 80 mmHg (80-105)
[2020-04-01 18:03] LABS: ABG HCO3 39 mmol/L (22-26)
--- NOTE | 2020-04-01 18:23 | Progress Note ---
DATE: SUBJECTIVE: Mr. Love remains in intensive care unit. He has two chest tube on the right, one on the left, clinically seems to be more alert. His COVID-19 came back negative. PHYSICAL EXAMINATION: GENERAL: He is intubated, sedated. VITAL SIGNS: Stable, currently afebrile. HEENT: He is not icteric. NECK: Supple. CHEST: Few crackles. COR: S1, S2. No S3, S4, or murmur. ABDOMEN: Soft. IMPRESSION: COVID-19 present on admission, acute respiratory distress syndrome, improving; renal failure, acute, improving; acute kidney injury, anemia of chronic disease. Heparin-induced platelet antibody came back negative. He is currently on propofol, fentanyl, linezolid and meropenem. From Infectious Disease point of view , the patient is stable. We will discontinue his antibiotic on Friday. Recheck COVID-19, possible discharge to skilled care facility on Friday. MD HARVEY Alexis/FREDY /[id number]
[2020-04-02] VITALS (25 sets, daily range): BP systolic 117–184; BP diastolic 59–98
[2020-04-02] MEDS: INSULIN REGULAR, HUMAN 3ML VL 100 UNIT in SODIUM CHLORIDE 0.9% 100 ML IV SCH ×2
[2020-04-02] MEDS: PROPOFOL IV EMULSION 10 MG/ML 50 ML VIAL IV PRN ×4 (01:00→18:26)
[2020-04-02 03:29] LABS: BASOPHILS % 0.2 % (0.0-1.0); EOSINOPHILS # (AUTO) 0.3 (0.0-0.4); EOSINOPHILS % 2.9 % (0.0-6.0); HEMATOCRIT 26.4 % (38.2-49.6); HEMOGLOBIN 8.2 g/dL (14.0-18.0); LYMPHOCYTES % 11.5 % (18.0-39.1); MEAN CORPUSCULAR HEMOGLOBIN 24.6 pg (28-32); MEAN CORPUSCULAR HGB CONC 31.1 g/dL (31-35); MEAN CORPUSCULAR VOLUME 79.3 fL (81-99); MONOCYTES % 11.6 % (4.4-11.3); NEUTROPHILS # (AUTO) 6.5 (2.1-6.9); NEUTROPHILS % 73.3 % (38.7-80.0); PLATELET COUNT 294 x10e3/uL (140-360); RED BLOOD COUNT 3.33 x10e6/uL (4.3-5.7)
[2020-04-02 03:43] LABS: ALANINE AMINOTRANSFERASE 13 IU/L (0-55); ALBUMIN 1.7 g/dL (3.5-5.0); ALBUMIN/GLOBULIN RATIO 0.3 (0.8-2.0); ALKALINE PHOSPHATASE 74 IU/L (40-150); ANION GAP 12.7 mmol/L (8-16); BLOOD UREA NITROGEN 21 mg/dL (7-26); BUN/CREATININE RATIO 25 (6-25); CALCIUM 7.8 mg/dL (8.4-10.2); CARBON DIOXIDE 35 mmol/L (22-29); CHLORIDE 94 mmol/L (98-107); CREATININE, SERUM 0.85 mg/dL (0.72-1.25); EST GLOMERULAR FILTRATION RATE > 60 ML/MIN (60-); GLUCOSE 146 mg/dL (74-118); POTASSIUM 3.7 mmol/L (3.5-5.1); SODIUM 138 mmol/L (136-145)
[2020-04-02] MEDS: SODIUM HYPOCHLORITE 0.25% 480 ML SOLN IR SCH (08:29)
[2020-04-02] MEDS: LINEZOLID 600 MG/D5W 300ML 300 ML IV SCH ×2 (08:29→21:00)
[2020-04-02] MEDS: FUROSEMIDE INJ 10 MG/ML 4 ML VIAL IV SCH (08:29)
[2020-04-02] MEDS: MEROPENEM 500MG/ NS 50ML 50 ML IV SCH ×2 (08:29→21:20)
[2020-04-02] MEDS: PANTOPRAZOLE 40 MG 10ML VIAL IV SCH (08:29)
--- NOTE | 2020-04-02 08:39 | Diagnostic Imaging Report ---
Examination: Single AP view of the chest. COMPARISON: April 01, 2020 INDICATION: Hypoxia DISCUSSION: Lines/tubes: Tracheostomy tube. Bilateral chest tubes and right pigtail catheter. Lungs: Stable multifocal airspace opacities. Pleura: There is no pleural effusion or pneumothorax. Heart and mediastinum: The heart and the mediastinum are unremarkable. Bones and soft tissues: No acute bony abnormalities. IMPRESSION: Stable bilateral airspace opacities. No pneumothorax. Signed by: Dr. Kingston Sargent M.D. on 04/02/2020 8:35 AM
--- NOTE | 2020-04-02 09:10 | NUR ---
SBT DONE AT THIS TIME PT TOLERATED WELL THIS AM PT ON CPAP FOR 1 HOUR. PT BECAME TACHYCARDIC AND TACHYPNIC. BACK ON PRVC AT THIS TIME WILL MONITOR CLOSELY
--- NOTE | 2020-04-02 11:40 | Progress Note ---
DATE: 04/02/2020 CHIEF COMPLAINT/HISTORY OF PRESENT ILLNESS: This is a 35-year-old man, whose primary treating diagnosis is acute hypoxic respiratory failure, secondary to bilateral COVID-19 pneumonia. The patient is much more alert today according to nursing staff. The patient had a chest x-ray today, which revealed stable bilateral airspace opacities. He still has bilateral chest tubes with a right pigtail catheter. The patient had blood work today and his white blood cell count is 8800 with 73% segmented neutrophils. Hemoglobin is 8.2 g/dL. The patient was found to be COVID-19 negative on March 31, 2020. Repeat COVID test was sent today. REVIEW OF SYSTEMS: As per HPI. PHYSICAL EXAMINATION: GENERAL: He is awake, alert, follows directions. He is on a ventilator and somewhat sedated with propofol. VITAL SIGNS: He tolerated CPAP per whole hour later today, currently is on AC mode, FiO2 is 40%. His oxygen saturation is 95%, pulse 108, respiratory rate 16, blood pressure 134, temperature 98.0, BMI 32. INTEGUMENT: Skin is warm and dry. Slight pallor. No jaundice or diaphoresis. He does have a 5 x 5 stable unstageable sacral decubitus ulcer. HEENT: Anicteric sclerae. Moist mucous membranes. NECK: Supple. He has a tracheostomy tube in place, connected to the ventilator. CARDIOVASCULAR: Tachycardic rate, regular rhythm. LUNGS: Faint crackles bilaterally. He has 2 chest tubes in the right, 1 chest in the left. ABDOMEN: Soft. G-tube in place, which is functional. EXTREMITIES: No edema or deformity. NEUROLOGIC: Intact. No gross focal deficits appreciated. He moves all 4 extremities. He is globally weak, though. DIAGNOSES: 1. Acute hypoxic respiratory failure, secondary to bilateral COVID-19 pneumonia. 2. Ventilator dependent. 3. Acute right lower extremity deep venous thrombosis. 4. Type 2 diabetes mellitus. 5. Unstageable sacral decubitus ulcer. 6. Cardiopulmonary arrest from severe hypoxia (March 27, 2020), resolved. PLAN: 1. Coronavirus by PCR, was performed today and we will follow the results of this test. 2. Continue renal support. 3. Continue weaning the patient off ventilator. 4. Continue nutritional support. 5. Intravenous heparin for the patient's acute right lower extremity deep venous thrombosis. 6. Tentative transfer to long-term [facility] tomorrow Friday, April 03, 2020. I spent 30 minutes in the care of this intensive care unit patient. MD OLVIN Blackburn/FREDY /[id number]
--- NOTE | 2020-04-02 12:50 | Progress Note ---
DATE: SUBJECTIVE: The patient tolerated CPAP trial for an hour today. The patient is afebrile. He still has two chest tubes on the right and one on the left. He has less subcutaneous emphysema. OBJECTIVE: VITAL SIGNS: The blood pressure is 135/67, saturation is 95% on PRVC with a FiO2 of 40. The tidal volume is 420. HEENT: Shows no facial swelling or erythema. CARDIAC: Reveals regular rate and rhythm with normal S1 and S2. LUNGS: Auscultation of lungs shows clear breath sounds bilaterally. There is no wheezing. ABDOMEN: Soft, nontender. There is no rebound or guarding. EXTREMITIES: Show no leg edema or calf tenderness. There is no cyanosis or clubbing. SKIN: Shows no rashes. NEUROLOGIC: Shows some left-sided weakness. There is a sacral decubitus ulcer. LABORATORY DATA: White blood cell count is 8.8 and hemoglobin is 8.2. The platelet count is 294. The BUN to creatinine ratio is 21 to 0.85 and the albumin is 1.7. RADIOGRAPHIC DATA: Chest x-ray shows no pneumothorax. There are stable bilateral airspace opacities. ASSESSMENT: 1. Acute respiratory failure. 2. Bilateral pneumothoraces. 3. COVID-19 infection. 4. Deep vein thrombosis. 5. Sacral decubitus wound. 6. Moderate protein-calorie malnutrition. 7. Anoxic brain injury with left hemiparesis. 8. Diabetes. PLAN: 1. The patient is restarted on heparin drip. 2. Continue CPAP trials as tolerated. 3. Continue enteral feedings. 4. Continue to monitor chest tubes. 5. Case discussed with nursing staff and Internal Medicine. Severiano Crow MD Dave/MODL /[id number]
--- NOTE | 2020-04-02 14:06 | Progress Note ---
DATE: ADDENDUM: The patient tolerated the CPAP. MD MUNA Ramos/FREDY /[id number]
[2020-04-02] MEDS: FENTANYL 2,000 MCG/250 ML BAG IV PRN (17:11)
--- NOTE | 2020-04-02 19:00 | NUR ---
SEDATION @ SHIFT CHANGE: FENT GTT@ 125 MCG/HR PROP GTT@ 30 MCG/HR HEPARIN GTT @ 1700 (17 MLS/HR). PTT DAILY. INSULIN GTT @ 2 UNITS. Q4 BG CHECKS. Addendum: 04/03/20 at 0144 by Ann Marie Gabriel RN PT RESTLESS. ORAL CARES COMPLETE, PT HAD BM AND WAS CLEANED AND REPOSITIONED. DENIES PAIN. FLACC PAIN SCORE=0. FENTANYL GTT INCREASED TO 150 MCG. PT NOW RESTING COMFORTABLE & SLEEPING.
[2020-04-03] VITALS (28 sets, daily range): BP systolic 105–174; BP diastolic 61–91
[2020-04-03] MEDS: PROPOFOL IV EMULSION 10 MG/ML 50 ML VIAL IV PRN ×3 (00:23→11:35)
--- NOTE | 2020-04-03 00:57 | NUR ---
NOTIFIED DR. RAYMOND REGARDING GAUZE OR OTHER MATERIAL POSSIBLY MIGRATING FROM STOMA. MATERIAL IS VERY SATURATED. DR. RAYMOND REQUESTS IT TO BE LEFT ALONE UNTIL HE CAN ASSESS IN MORNING. TRACHEOSTOMY SITE HAS MINIMAL SEROSANGUINEOUS DRAINAGE. NO NEW ORDERS. PT RESTING COMFORTABLY. DENIES PAIN. Addendum: 04/03/20 at 0354 by Ann Marie Gabriel RN NOTIFIED RT OF CONVERSATION WITH DR. RAYMOND. HOWEVER, RT REMOVED MATERIAL FROM STOMA. NO COMPLICATIONS NOTED AT THIS TIME. WILL CONTINUE TO MONITOR AND PASS ON TO DAY SHIFT RN/RT.
[2020-04-03] MEDS ORDERED: HEPARIN 25,000 UNIT DRIP IV ONE (02:08)
[2020-04-03] MEDS: HEPARIN 25,000 UNIT 1,500 UNIT in DEXTROSE 5% 250ML 250 ML IV SCH (03:28)
--- NOTE | 2020-04-03 03:54 | NUR ---
URINE OUTPUT DECREASED-MANUAL FLUSH DID NOT REVEAL ANY URINE. BLADDER SCAN REVEALED 689 CC URINE. WITH ASSIST OF REGIONAL VICE PRESIDENT [employer], HANNA CLEANSED WITH CHG, BALLOON DEFLATED (2CC IN BALLOON), MANUAL FLUSH ADMINISTERED, AND BALLOON REINFLATED (10CC). IMMEDIATE RETURN OF 600 CC EMPTIED TO HANNA. PT TOLERATED WELL AND RESTING COMFORTABLE.
[2020-04-03 06:31] LABS: BASOPHILS % 0.1 % (0.0-1.0); EOSINOPHILS # (AUTO) 0.3 (0.0-0.4); EOSINOPHILS % 3.5 % (0.0-6.0); HEMATOCRIT 25.6 % (38.2-49.6); HEMOGLOBIN 7.9 g/dL (14.0-18.0); LYMPHOCYTES % 12.3 % (18.0-39.1); MEAN CORPUSCULAR HEMOGLOBIN 24.3 pg (28-32); MEAN CORPUSCULAR HGB CONC 30.9 g/dL (31-35); MEAN CORPUSCULAR VOLUME 78.8 fL (81-99); MONOCYTES % 12.3 % (4.4-11.3); NEUTROPHILS # (AUTO) 5.8 (2.1-6.9); NEUTROPHILS % 71.4 % (38.7-80.0); PLATELET COUNT 314 x10e3/uL (140-360); RED BLOOD COUNT 3.25 x10e6/uL (4.3-5.7); RED CELL DISTRIBUTION WIDTH 16.1 % (11.7-14.4)
[2020-04-03 06:48] LABS: ANION GAP 11.2 mmol/L (8-16); BLOOD UREA NITROGEN 21 mg/dL (7-26); BUN/CREATININE RATIO 26 (6-25); CARBON DIOXIDE 37 mmol/L (22-29); CHLORIDE 92 mmol/L (98-107); CREATININE, SERUM 0.82 mg/dL (0.72-1.25); EST GLOMERULAR FILTRATION RATE > 60 ML/MIN (60-); GLUCOSE 145 mg/dL (74-118); POTASSIUM 3.2 mmol/L (3.5-5.1); SODIUM 137 mmol/L (136-145)
[2020-04-03] MEDS: FENTANYL 2,000 MCG/250 ML BAG IV PRN (07:25)
[2020-04-03] MEDS ORDERED: POTASSIUM CHLORIDE 20MEQ/15ML UDC GT ONE ×2 (07:30→09:00)
[2020-04-03] MEDS ORDERED: SODIUM CHLORIDE 0.9% 1000ML 1,000 ML ONE (07:37)
[2020-04-03] MEDS: FUROSEMIDE INJ 10 MG/ML 4 ML VIAL IV SCH (08:00)
[2020-04-03] MEDS: LINEZOLID 600 MG/D5W 300ML 300 ML IV SCH ×2 (08:00→20:50)
[2020-04-03] MEDS: SODIUM HYPOCHLORITE 0.25% 480 ML SOLN IR SCH (08:00)
--- NOTE | 2020-04-03 08:00 | NUR ---
tube feed increased to goal of 60 ml/hr from 50ml/hr. decreased propofol from 20 to 10 mcg/kg/min for ventilator weaning. fentanyl currently at 100 mcg/hr. young to gravity. chest tubes to suction
[2020-04-03] MEDS: LABETALOL HCL 5 MG/ML 20ML VIAL IV PRN (08:12)
--- NOTE | 2020-04-03 09:19 | Diagnostic Imaging Report ---
EXAM: CHEST SINGLE (PORTABLE) DATE: 04/03/2020 6:20 AM INDICATION: Pneumonia hypoxemia COMPARISON: 04/02/2020 FINDINGS: Tracheostomy cannula and bilateral chest tubes identified in stable position. There are grossly stable appearing multifocal airspace opacities present bilaterally. There is no evidence for new large focal consolidation, pneumothorax, or significant pleural effusion. The cardiomediastinal silhouette is stable in appearance. No acute osseous abnormality is identified. IMPRESSION: No significant interval change from 04/02/2020. Stable appearing multifocal airspace opacities again noted bilaterally. Signed by: Dr. Colton Sandra MD on 04/03/2020 9:15 AM
[2020-04-03] MEDS: MEROPENEM 500MG/ NS 50ML 50 ML IV SCH ×2 (09:25→21:57)
--- NOTE | 2020-04-03 09:26 | NUR ---
physical therapy assisted patient to edge of bed. tolerated well. right lower chest tube put to water seal per Dr Crow. medium bowel movement
--- NOTE | 2020-04-03 09:37 | Progress Note ---
DATE: 04/03/2020 CHIEF COMPLAINT/HISTORY OF PRESENT ILLNESS: This is a 35-year-old man, whose primary treating diagnosis is acute hypoxic respiratory failure secondary to bilateral COVID-19 pneumonia. The patient is improving clinically. Today's white blood cell count is 8100 with 71% segmented neutrophils. Hemoglobin is 7.9 g/dL. The patient's BUN and creatinine today are 21 and 0.82 respectively. The patient's potassium is 3.2. The patient had a repeat COVID-19 test performed yesterday by PCR and it was negative. Thus, the patient now has 2 negative coronavirus by PCR first on March 31, 2020 and 2nd on April 02, 2020. Chest x-ray performed on April 02, 2020 revealed resolved pneumothoraces in the bilateral lung alvarado. REVIEW OF SYSTEMS: Systems as per HPI. PHYSICAL EXAMINATION: GENERAL: He is actually awake, minimally sedated on a ventilator via trach tube. Follows simple commands. According to nursing staff, he moves the left side only minimally. VITAL SIGNS: Blood pressure 130/64, pulse 102, respiratory rate is 14, temperature 98.5. BMI is 32. Oxygen saturation 95% on FiO2 40%. INTEGUMENT: Skin is warm and dry. Slight pallor. No jaundice or diaphoresis. The patient has a stable 5 x 5 cm unstageable sacral decubitus ulcer. HEENT: Anicteric sclerae with moist mucous membranes. NECK: Supple. He has a tracheostomy tube in place, connected to a ventilator. CARDIOVASCULAR: Tachycardic rate with regular rhythm. LUNGS: Crackles bilaterally. He has a chest tube on the left, 2 chest tubes on the right. ABDOMEN: Soft. He has G-tube in place that is functional. EXTREMITIES: No edema or deformity. NEUROLOGIC: He does follow simple commands, however, he appears to move the left side only minimally. DIAGNOSES: 1. Acute hypoxic respiratory failure, secondary to bilateral COVID-19 pneumonia. 2. Anoxic brain injury with left hemiparesis, likely. 3. Ventilator dependent. 4. Acute right lower extremity deep venous thrombosis. 5. Type 2 diabetes mellitus. 6. Unstageable sacral decubitus ulcer. 7. Cardiopulmonary arrest from severe hypoxia (March 27, 2020, resolved). PLAN: 1. Consider removing tube thoracostomies bilaterally. 2. Continue respiratory support. 3. Continue weaning the patient off ventilator. 4. Continue nutritional support. 5. Continue wound care to the patient's unstageable sacral decubitus ulcer. 6. Tentative transfer to long-term acute care facility today Friday, April 03, 2020. I spent 35 minutes in the care of this patient. MD OLVIN Blackburn/FREDY /[id number]
--- NOTE | 2020-04-03 12:00 | NUR ---
CPAP WEANING TRIAL STARTED Addendum: 04/03/20 at 1834 by Janelle Elias RN patient tolerated 40 minutes
--- NOTE | 2020-04-03 12:50 | NUR ---
right lower chest tube clamped per Dr Crow. Follow up chest xray ordered to re-eval need Addendum: 04/03/20 at 1716 by Janelle Elias RN right lower chest tube unclamped and to remain to water seal
--- NOTE | 2020-04-03 13:19 | Progress Note ---
DATE: SUBJECTIVE: The patient was placed on a CPAP and pressure support for 40 minutes a day. He is awake, but has difficulty moving his left side. He remains on a heparin drip. PHYSICAL EXAMINATION: VITAL SIGNS: The patient is afebrile. The blood pressure is 131/87 and saturation is 95%. HEENT: Shows no facial swelling or erythema. CARDIAC: Reveals regular rate and rhythm with a normal S1 and S2. There are no murmurs or rubs. LUNGS: Auscultation of lungs reveals decreased breath sounds at the bases. There is no wheezing. ABDOMEN: Soft and nontender. There is no rebound or guarding. EXTREMITIES: Shows no leg edema or calf tenderness. There is no cyanosis or clubbing. SKIN: Shows no rashes. NEUROLOGICAL: Shows some weakness on the left side. LABORATORY DATA: Hemoglobin is 7.9 and white blood cell count is 8.2. The platelet count is 318. BUN to creatinine ratio is normal. The other electrolytes are within normal limits. RADIOGRAPHIC DATA: Shows no pneumothorax or subcutaneous emphysema. IMPRESSION: 1. Acute respiratory failure. 2. Bilateral pneumothoraces with subcutaneous emphysema. 3. Left-sided hemiparesis probably from a cerebrovascular accident. 4. Anemia, unspecified. PLAN: 1. Continue CPAP trials daily. 2. Clamp the surgical chest tube on the right side today and repeat the x-ray. Hopefully, we can remove this chest tube first. 3. Repeat CT scan of the head. 4. Physical therapy. 5. Continue enteral feedings. 6. Continue heparin drip. 7. Case discussed with nursing staff, Respiratory, and Internal Medicine. Severiano Crow MD [facility]/MODL /[id number]
--- NOTE | 2020-04-03 15:00 | NUR ---
patient to remain on isolation pre Dr Hillman
--- NOTE | 2020-04-03 15:15 | NUR ---
patient vomited from mouth small amount. tube feed stopped. Addendum: 04/03/20 at 1834 by Janelle Elias RN 1800 restarted tube feeds
--- NOTE | 2020-04-03 17:24 | Diagnostic Imaging Report ---
EXAMINATION: CHEST SINGLE (PORTABLE) INDICATION: ^clamped right chest tube ^[id number] ^[id number] COMPARISON: Same day at 6:15 AM FINDINGS: AP view TUBES and LINES: Stable tracheostomy tube. Stable bilateral chest tubes and right pleural pigtail catheter. LUNGS: Limited by low lung volumes and slight rotation. Diffuse right lung airspace opacities, slightly increased from prior exam, especially upper lobe. Not significantly changed left lower lung field opacities. PLEURA: No pneumothorax. Suspected small bilateral pleural effusions. HEART AND MEDIASTINUM: The cardiomediastinal silhouette is unremarkable. BONES AND SOFT TISSUES: No acute osseous lesion. Soft tissues are unremarkable. UPPER ABDOMEN: No free air under the diaphragm. IMPRESSION: Right lung airspace opacities, slightly increased from prior exam. Not significantly changed left lower lung field airspace opacities. Suspected small bilateral pleural effusions. No visible pneumothorax. Signed by: Dr. Chalo Davis MD on 04/03/2020 5:20 PM
[2020-04-03] MEDS: INSULIN REGULAR, HUMAN 3ML VL 100 UNIT in SODIUM CHLORIDE 0.9% 100 ML IV SCH ×2 (17:54)
--- NOTE | 2020-04-03 20:34 | NUR ---
PT NOTED TO BE TACHYCARDIC (125), TACHYPNEIC (24-28, RATE IS SET @ 18), AND BREATHING IS LABORED. PT CLEANED AND SUCTIONED, ORAL CARES COMPLETE. PT STILL IN MILD DISTRESS, DEMONSTRATING WITH HIS HAND HE IS HAVING PAIN ON HIS RIGHT SIDE NEAR CHEST TUBE. PT SHAKES HEAD "NO" WHEN ASKED IF IT IS HIS ABDOMEN PAIN OR CRAMPING/GAS. PT SHAKES HEAD "YES" WHEN ASKED IF PAIN IS SHARP. PT SHAKES HEAD "YES" WHEN ASKED IF HIS R LUNG IS WHERE THE PAIN IS OCCURRING. ALL CHEST TUBES CHECKED AND OK. R CHEST TUBE RECONNECTED TO SUCTION, NO OUTPUT NOTED. SEDATION WAS INCREASED TO MAKE PATIENT MORE COMFORTABLE: FENTANYL @ 125 MCG (PREVIOUS 100 MCG) & PROP @ 14 MCG (10). RESPIRATORY AT BEDSIDE TO EVALUATE PT. RN AND RT BOTH CONCERNED ABOUT STATUS OF TRACHEOSTOMY SITE. REDNESS NOTED AND PAINFUL TO TOUCH FOR PT. SECRETIONS ARE SEROSANGUINEOUS MUCOUS. TRACH CARE COMPLETE. NOTIFIED DR. Terra CABRAL @ 2012 WITH CHANGE IN PATIENTS RESPIRATORY STATUS. NEW ORDERS FOR STAT CXR, ABG, AND TO GIVE 1MG ATIVAN. RT SPOKE WITH DR. CABRAL ON PHONE. ORDERS COMMUNICATED AND IMPLEMENTED. WILL CONTINUE TO MONITOR AND UPDATE DR. Terra CABRAL WITH RESULTS OF ABG & CXR. PT'S BREATHING IS STILL LABORED BUT APPEARS TO BE SLEEPING AT THIS TIME. HR 118, RATE 19, 95%, 125/66. Addendum: 04/03/20 at 2152 by Ann Marie Gabriel RN @ [address] CABRAL OF CXR AND ABG RESULTS. NEW ORDER TO INCREASE FIO2 TO 45% (PREVIOUS 40%). COMMUNICATED TO RT AND ORDER PLACED.
[2020-04-03] MEDS ORDERED: LORAZEPAM INJ 2 MG/ML VIAL IV SCH (20:40)
[2020-04-03 21:09] LABS: ABG PCO2 65 mmHg (35-45); ABG PH 7.38 (7.35-7.45)
[2020-04-03 21:10] LABS: ABG HCO3 39 mmol/L (22-26)
--- NOTE | 2020-04-03 21:26 | Diagnostic Imaging Report ---
EXAMINATION: CHEST SINGLE (PORTABLE) INDICATION: ^TACHYPNEA ^[id number] ^[id number] ^Y COMPARISON: 04/03/2020 FINDINGS: AP view TUBES and LINES: Unchanged bilateral chest tubes. Unchanged tracheostomy tube. Unchanged right apical pigtail catheter. LUNGS: No significant change in right lung airspace opacities. Unchanged mild left basilar airspace disease. PLEURA: Probable small bilateral pleural effusions are unchanged. No distinct pneumothorax. HEART AND MEDIASTINUM: The cardiomediastinal silhouette is unremarkable. BONES AND SOFT TISSUES: No acute osseous lesion. Soft tissues are unremarkable. UPPER ABDOMEN: No free air under the diaphragm. IMPRESSION: Stable exam. Unchanged pulmonary airspace disease, right lung greater than left. Unchanged bilateral chest tubes. No visible pneumothorax. Signed by: Tone Mcmanus MD on 04/03/2020 9:22 PM
--- NOTE | 2020-04-03 23:45 | NUR ---
PAGE DR. MENDEZ REGARDING PT STATUS. PT IS FEBRILE AND TACHYCARDIC. COMMUNICATED CONCERN REGARDING TRACHEOSTOMY A POSSIBLE NEW SOURCE OF INFECTION. SITE IS ERYTHEMATOUS, TENDER TO TOUCH, AND SEROSANGUINEOUS MUCOUS NOTED. NOTIFIED DR. MENDEZ. NEW ORDER FOR TYLENOL 650 MG Q6 PRN, BLOOD CULTURES, AND DIFLUCAN 400MG IV Q24 HRS. ORDERS PLACED, WILL CONTINUE TO MONITOR.
[2020-04-04] VITALS (25 sets, daily range): BP systolic 103–158; BP diastolic 54–98
[2020-04-04] MEDS: FENTANYL 2,000 MCG/250 ML BAG IV PRN ×2 (00:29→15:36)
[2020-04-04] MEDS ORDERED: FLUCONAZOLE 400MG/200ML BAG 200 ML IV SCH (01:15)
[2020-04-04] MEDS: PROPOFOL IV EMULSION 10 MG/ML 50 ML VIAL IV PRN ×3 (04:18→16:19)
[2020-04-04] MEDS: ACETAMINOPHEN 325 MG TAB PO PRN (06:00)
[2020-04-04 06:15] LABS: BASOPHILS % 0.2 % (0.0-1.0); EOSINOPHILS # (AUTO) 0.2 (0.0-0.4); EOSINOPHILS % 2.2 % (0.0-6.0); HEMATOCRIT 23.4 % (38.2-49.6); HEMOGLOBIN 7.2 g/dL (14.0-18.0); LYMPHOCYTES % 9.4 % (18.0-39.1); MEAN CORPUSCULAR HEMOGLOBIN 24.2 pg (28-32); MEAN CORPUSCULAR HGB CONC 30.8 g/dL (31-35); MEAN CORPUSCULAR VOLUME 78.8 fL (81-99); MONOCYTES # (AUTO) 1.3 (0.2-0.8); MONOCYTES % 12.6 % (4.4-11.3); NEUTROPHILS # (AUTO) 7.7 (2.1-6.9); NEUTROPHILS % 75.1 % (38.7-80.0); PLATELET COUNT 301 x10e3/uL (140-360); RED BLOOD COUNT 2.97 x10e6/uL (4.3-5.7); RED CELL DISTRIBUTION WIDTH 16.3 % (11.7-14.4)
[2020-04-04 06:39] LABS: ALANINE AMINOTRANSFERASE 13 IU/L (0-55); ALBUMIN 1.6 g/dL (3.5-5.0); ALBUMIN/GLOBULIN RATIO 0.3 (0.8-2.0); ALKALINE PHOSPHATASE 74 IU/L (40-150); ANION GAP 12.7 mmol/L (8-16); BLOOD UREA NITROGEN 25 mg/dL (7-26); BUN/CREATININE RATIO 24 (6-25); CALCIUM 8.1 mg/dL (8.4-10.2); CARBON DIOXIDE 34 mmol/L (22-29); CHLORIDE 92 mmol/L (98-107); CREATININE, SERUM 1.04 mg/dL (0.72-1.25); EST GLOMERULAR FILTRATION RATE > 60 ML/MIN (60-); GLUCOSE 163 mg/dL (74-118); POTASSIUM 3.7 mmol/L (3.5-5.1); SODIUM 135 mmol/L (136-145)
--- NOTE | 2020-04-04 08:30 | NUR ---
CPAP WEANING TRIAL STARTED Addendum: 04/04/20 at 0934 [place] [id number] PATIENT TOLERATED 40 MIN
[2020-04-04] MEDS: LINEZOLID 600 MG/D5W 300ML 300 ML IV SCH (08:38)
[2020-04-04] MEDS: SODIUM HYPOCHLORITE 0.25% 480 ML SOLN IR SCH (08:52)
[2020-04-04] MEDS: MEROPENEM 500MG/ NS 50ML 50 ML IV SCH (09:09)
--- NOTE | 2020-04-04 09:33 | NUR ---
DR RAYMOND AT BEDSIDE ASSESSED TRACH STOMA. REMOVED SUTURES AND TRACH WOUND CARE
--- NOTE | 2020-04-04 10:13 | Progress Note ---
DATE: SUBJECTIVE: The patient is minimal sedation at this time. During the night apparently he had some desaturations and became more anxious. He required additional Ativan as well as having his chest tube reconnected to suction. He is beginning a spontaneous breathing trial today. PHYSICAL EXAMINATION: VITAL SIGNS: Blood pressure is 117/76. Saturation is 99% on 45%. He is now on a pressure support of 10 and a CPAP of 5. There is a tracheostomy in good position. The small anterior chest tube on the right side drained about 20 mL overnight. The large right-sided surgical chest tube has had no drainage. The left chest tube drained 70 mL overnight. There is no subcutaneous emphysema. CARDIAC: Reveals regular rate and rhythm with normal S1, S2. LUNGS: Auscultation of the lungs shows decreased breath sounds at the bases. There is no wheezing. ABDOMEN: Soft, nontender. There is no rebound or guarding. EXTREMITIES: No leg edema or calf tenderness. There is no cyanosis or clubbing. SKIN: No rashes. NEUROLOGICAL: The patient to be awake and alert, but has a left hemiparesis. LABORATORY DATA: White blood cell count is 10.2 and hemoglobin is 7.2. The platelet count is 301,000. The BUN to creatinine ratio is 25 to 1.04. Other electrolytes are within normal limits. X-ray is still pending. IMPRESSION: 1. Respiratory failure. 2. Bilateral pneumothoraces with subcutaneous emphysema that is improving. 3. Left-sided hemiparesis probably related to cerebrovascular accident. 4. Anemia, unspecified. 5. COVID-19 has resolved. PLAN: 1. CPAP trial again today. 2. Repeat chest x-ray with a larger chest tube on the right side off suction. Hopefully, we can remove this chest tube. 3. The patient will need repeat CT of the head. 4. Continue heparin. 5. Continue enteral feedings. 6. Continue wound care. 7. Case discussed with nightshift nursing, dayshift nursing, Respiratory, Internal Medicine, and father. Severiano Crow MD LM/FREDY /[id number]
[2020-04-04] MEDS ORDERED: SODIUM CHLORIDE 0.9% 250ML 250 ML IV ONE (12:15)
--- NOTE | 2020-04-04 12:43 | Progress Note ---
DATE: SUBJECTIVE: Mr. Love, who is alert, but not fully following commands. The patient remains with 2 chest tubes, who looks better. He is on pressure support of 10, CPAP of 5. Tracheostomy fresh, still some oozing around the site. OBJECTIVE: HEENT: Not icteric. NECK: Supple. CHEST: Few crackles. COR: S1 and S2. No S3, S4, or murmurs. ABDOMEN: Soft and obese. IMPRESSION: COVID-19, acute respiratory distress syndrome, debility, status post cardiac arrest, status post pneumothorax. Going for an LTAC once he is stable. We will discontinue linezolid and meropenem and fluconazole for now. Continue with local care. He needs PT/OT, would need an MRI once off the vent of the chest tube. Further recommendations to follow. MD HARVEY Alexis/FREDY /[id number]
--- NOTE | 2020-04-04 15:10 | NUR ---
Nutrition Intervention Note RD Recommendation(s) for Physician: - Recommend continuing Vital High Protein. Recommend a goal rate of 60 mL/hr at this time due to current propofol rate (provides 1440 kcal, 126 g protein, and 1204 mL water per day). - Current propofol rate provides 317 kcal. - Water flushes per MD. Plan of Care: RD following, monitoring for tolerance and adequacy. TF recs. Nutrition reason for involvement: follow up RD Assessment 04/04: Follow up. Pt discussed during am MDR. Pt remains on vent via trach, tolerating TF at goal rate of 60 ml/hr per RN. Pt continues on Propofol at 12 ml/hr. Recommend continue current TF goal rate, additional kcal provided from Propofol. Chart reviewed. Will continue to monitor. 03/31: Follow up. Per chart, pts trach was replaced yesterday. Pt is receiving propofol @ 12 mL/hr per RN which provides 317 kcal. Pt is tolerating Vital High Protein @ 45 mL/hr at this time. Recommend increasing rate towards goal rate as medically appropriate. Will continue to monitor 03/28: Follow up. Pt remains intubated and sedated, currently on Fentanyl drip and Propofol drop. Pt s/p cardiopulmonary arrest yesterday requiring CPR and subsequent bilateral chest tube placement. Pt now intubated and trach removed. TF remains off currently, noted last documented TF of 520 ml total received on 03/27. TF rec's provided when feasible to resume. Will continue to monitor. 03/24: Follow up. Pt remains intubated and sedated. Pt is currently receiving propofol @ 37.4 ml/hr per RN which provides 987 kcal. Per MD note, pt is planned to receive a trach and PEG today; therefore, tube feeding is on hold at this time. Will continue to monitor. 03/21: Follow up. Pt remains intubated and sedated, currently on Propofol and Versed. Pt off, CPAP trials, plan to resume TF per RN. Plan for trach placement tomorrow. Chart reviewed. Discussed TF rec's with RN on unit as pt not meeting protein needs and Propofol providing additional kcal. Will continue to monitor. 03/17: Follow up. Pt remains intubated and is sedated on propofol @ 21.8 mL/hr which provides 575 kcal. Pt is tolerating tube feeding and is receiving Nepro @ 40 mL/hr. Recommend modifying formula to Vital High Protein. Informed RN of recommendation. Will continue to monitor. 03/13: Follow up. Pt remains intubated and sedated, off Propofol and continues on Fentanyl drip. Pt continues on TF of Nepro at 40 ml/hr, no dialysis initiated and renal trend improving. TF meeting current estimated needs. Current rec's remain appropriate. Chart reviewed. Will continue to monitor. 03/08: Follow up. Pt remains intubated and sedated on Propofol and Fentanyl drips. No pressor support. Pt on TF of Nepro at 40 ml/hr. Renal trend noted, no dialysis currently. TF meeting estimated kcal and protein needs per current renal trend. TF rec's provided pending dialysis initiation and continued Propofol use. Chart reviewed. Will continue to monitor. 03/03: Follow up. Pt remains mechanically ventilated. Pt is receiving Glucerna 1.2 @ 40 ml/hr per chart. Pt is receiving 26.7 mL/hr of propofol which provides 705 kcal. Recommend modifying formula to Vital High Protein. Will continue to monitor. 02/28: Follow up. Pt remains intubated, sedated with Propofol and fentanyl drip. Pt not currently on pressors. TF currently off per am documentation, previously infusing at 20 ml/hr on 02/27 and 02/26- not meeting needs. Pt with increased water flushes per MD 2/2 hypernatremia. Chart reviewed. TF rec's relayed to RN. Will continue to monitor. 02/24: Follow up. Pt remains mechanically ventilated. Per RN, pt is tolerating tube feeding of Glucerna 1.2 @ 40 mL/hr. Recommend modifying formula to Vital High Protein. RD recommendation provided to nurse. Will continue to monitor. 02/20: 35 YOM admitted for hypoxemia, hyperglycemia with PMH listed below. Physical visit was deferred d/t hospitals infection disease policy. Pt is intubated on fentanyl and propofol. Pt is not on pressors as of now. The nurse reported the pt was ordered pressors over the weekend but has not needed it today. Nurse reported possible ARDS, they have not had to place the pt in the prone position yet. Pt was ordered Glucerna 1.2 at 20 ml/hr advance to goal rate of 60 ml/hr with 100 ml of water every 4 hours (1728 kcal, 86gram protein) . RD recommendations provided above and given to nurse. Unaware of propofol rate d/t not being able to enter the room and nurse not knowing at current time. Nurse reported the pt is currently on 20 ml/hr of Glucerna 1.2. Will continue to monitor. Principal Problems/Diagnoses: hypoxemia, hyperglycemia PMH: Uncontrolled type 2 diabetes mellitus. GI: last recorded BM 04/04 x 3 Skin: unstagable sacral PU Labs: 04/04: Na 135, K 3.7, BUN 25, Cr 1.04, Gluc 163, Ca 8.1 03/31: Na 144, K 3.4, BUN 21, Cr 0.84, Glu 119 03/28: Na 148, K 4, BUN 27, Cr 0.88, Gluc 119, POC Gluc 131-152 03/24: Na 142, K 3.9, BUN 22, Cr 0.76, Glu 127 03/21: Na 145, K 3.9, BUN 22, Cr 0.88, Gluc 186, POC Gluc 98- 200 03/17: Na 144, K 3.8, BUN 26, Cr 0.86. Glu 200 03/13: Na 141, K 3.6, BUN 39, Cr 1.13, Gluc 245, POC Gluc 261-286 03/08: Na 142, K 4.4, BUN 54, Cr 1.42, Gluc 323, POC Gluc 316-336 Meds: Propofol at 12 ml/hr, insulin drip at 2 units/hr, fentanyl drip Ht:71 in Wt:233.5 lbs (04/04) 231 lbs (03/31) 225 lbs (03/24) 220 lbs (03/17) 212 lbs (02/27) 215 lbs (02/23) 213 lb (02/20) BMI:32.2 kg/m^2 IBW:172 lbs Malnutrition Evaluation (03/21) -unable to perform nutrition assessment, isolation precautions for COVID-19 Nutrition Prescription (Diet Order): TF: Vital HP at 60 ml/hr Estimated Nutritional Needs: Calories: 9985-1514 kcal/day (20- 25 kcal/kg/day) Weight used : IBW (78 kg) Protein : 94 156 g protein/day (1.2-2 gram/kg/day ) Weight used: IBW (78 kg) Diet Adequacy: meeting kcal needs, meeting protein needs at current tube feed rate Diet Education Needs Assessment: Diet education not indicated, patient on temporary/transition diet. Nutrition Care Level: moderate Nutrition Diagnosis: Inadequate energy intake related to medical condition as evidenced by the pt needing mechanical ventilation and need for TF to meet energy and protein needs. Goal: Patient will meet 75-100% of estimated needs by follow up Progress: progressing Interventions: -TF (Composition, Rate, Route),Recommended Modifications, Collaboration with other providers Monitoring/Evaluation: -Total energy intake, Total protein intake, Formula/Solution Signed: Chasidy Bridges RD, LD, CNSC
[2020-04-04] MEDS: HEPARIN 25,000 UNIT 1,500 UNIT in DEXTROSE 5% 250ML 250 ML IV SCH (15:19)
--- NOTE | 2020-04-04 17:12 | NUR ---
new young bag/urometer replaced
--- NOTE | 2020-04-04 17:45 | Progress Note ---
DATE: SUBJECTIVE: Mr. Love continue to improve. He is starting to move around. He still have chest tube. He is on CPAP support for 40 minutes. PHYSICAL EXAMINATION: GENERAL: He is currently alert and oriented. Does not seem to be in acute distress. VITAL SIGNS: Stable, currently afebrile. HEENT: He is not icteric. NECK: Supple. CHEST: Few crackles at the bases. COR: S1 and S2. No S3, S4, or murmurs. ABDOMEN: Soft. Bowel sounds present. No tenderness. EXTREMITIES: No edema. SKIN: No rash. IMPRESSION: Respiratory failure, acute respiratory distress syndrome, COVID-19, present on admission. The last 2 was negative. We will recheck again. If we can take the chest tubes out, continue weaning. Consider transfer to LTAC after that. Discussed with medical team. He would need an MRI of the brain once he is improving just to assess for stroke, history of deep venous thrombosis , history of CPR. MD HARVEY Alexis/MODL /[id number]
[2020-04-05] VITALS (26 sets, daily range): BP systolic 122–192; BP diastolic 66–106
[2020-04-05] MEDS: PROPOFOL IV EMULSION 10 MG/ML 50 ML VIAL IV PRN ×4 (00:38→23:15)
[2020-04-05] MEDS: HEPARIN 25,000 UNIT 1,500 UNIT in DEXTROSE 5% 250ML 250 ML IV SCH (00:40)
[2020-04-05] MEDS ORDERED: FLUCONAZOLE 400MG/200ML BAG 200 ML IV SCH (06:00)
[2020-04-05 06:24] LABS: BASOPHILS % 0.1 % (0.0-1.0); EOSINOPHILS # (AUTO) 0.3 (0.0-0.4); EOSINOPHILS % 3.6 % (0.0-6.0); HEMATOCRIT 25.6 % (38.2-49.6); LYMPHOCYTES # (AUTO) 0.9 (1.0-3.2); LYMPHOCYTES % 12.2 % (18.0-39.1); MEAN CORPUSCULAR HEMOGLOBIN 24.9 pg (28-32); MEAN CORPUSCULAR HGB CONC 31.3 g/dL (31-35); MEAN CORPUSCULAR VOLUME 79.8 fL (81-99); NEUTROPHILS # (AUTO) 5.3 (2.1-6.9); NEUTROPHILS % 70.6 % (38.7-80.0); PLATELET COUNT 290 x10e3/uL (140-360); RED BLOOD COUNT 3.21 x10e6/uL (4.3-5.7); RED CELL DISTRIBUTION WIDTH 15.9 % (11.7-14.4)
[2020-04-05 06:44] LABS: BLOOD UREA NITROGEN 26 mg/dL (7-26); BUN/CREATININE RATIO 30 (6-25); CARBON DIOXIDE 35 mmol/L (22-29); CHLORIDE 92 mmol/L (98-107); CREATININE, SERUM 0.86 mg/dL (0.72-1.25); EST GLOMERULAR FILTRATION RATE > 60 ML/MIN (60-); GLUCOSE 176 mg/dL (74-118); SODIUM 134 mmol/L (136-145)
[2020-04-05] MEDS: SODIUM HYPOCHLORITE 0.25% 480 ML SOLN IR SCH (08:03)
[2020-04-05] MEDS: FENTANYL 2,000 MCG/250 ML BAG IV PRN ×3 (08:04→23:15)
[2020-04-05] MEDS: MUPIROCIN 2% OINT 22 GM TUBE TOP SCH ×2 (08:04→16:05)
--- NOTE | 2020-04-05 09:22 | Diagnostic Imaging Report ---
EXAMINATION: CHEST SINGLE (PORTABLE) INDICATION: Respiratory failure COMPARISON: Numerous prior chest radiographs, most recently of 04/03/2020 FINDINGS: LINES/TUBES:Bilateral chest tubes unchanged. Endotracheal tube terminates approximately 1.5 cm above the latasha. Left PICC line unchanged. EKG leads overlie the chest. LUNGS:The lungs are moderately inflated. No significant interval change in bilateral airspace opacities. PLEURA:Small right lateral pneumothorax. No pleural effusion. MEDIASTINUM:The cardiomediastinal silhouette appears unchanged in size and shape. BONES/SOFT TISSUES:No acute osseous injury. ABDOMEN:No free air under the diaphragm. IMPRESSION: Unchanged bilateral lung opacities. Small right lateral pneumothorax. Right and left chest tubes in unchanged position. Signed by: Humberto Lpoez MD on 04/05/2020 9:06 AM
--- NOTE | 2020-04-05 10:38 | Diagnostic Imaging Report ---
EXAMINATION: CHEST SINGLE (PORTABLE) INDICATION: Pneumonia COMPARISON: Multiple prior chest radiograph, most recently 04/04/2020 FINDINGS: LINES/TUBES:Tracheostomy tube terminates 3 cm above the latasha. Left chest tube unchanged. Right chest tube has been removed. Left PICC line unchanged. EKG leads overlie the chest. LUNGS:The lungs are moderately inflated. Unchanged bilateral airspace opacities. PLEURA:No pleural effusion or pneumothorax. MEDIASTINUM:The cardiomediastinal silhouette appears normal in size and shape. BONES/SOFT TISSUES:No acute osseous injury. ABDOMEN:No free air under the diaphragm. IMPRESSION: Unchanged bilateral airspace opacities. Interval removal of right chest tube. No pneumothorax. Signed by: Humberto Lopez MD on 04/05/2020 10:33 AM
--- NOTE | 2020-04-05 11:10 | NUR ---
PT WAS ON CPAP FOR 35 MIN BECAME ANXIOUS AND C/O SOB TOWARDS THE END OF SBT HR INTO 130'S AND BP IN 190'S. PT PLACED BACK ON PRVC MD NOTIFIED OF TRIAL AND CXR RESULTS MD TO COME SEE PATIENT.
--- NOTE | 2020-04-05 11:55 | NUR ---
SUSANNAH NAGY in ICU [id number]
--- NOTE | 2020-04-05 12:30 | NUR ---
LOWER RIGHT CHEST TUBE REMOVED BY PETROLEUM GAUZE DRESSING APPLIED PT TOLERATED WELL. WILL CONTINUE TO MONITOR
--- NOTE | 2020-04-05 14:08 | Progress Note ---
DATE: SUBJECTIVE: The patient has spontaneous breathing trial for 35 minutes this morning. He remains awake, but still has difficulty moving his left side. The large bore right chest tube was removed today. The small bore anterior chest tube on the right is still present. The left-sided chest tube is still there. PHYSICAL EXAMINATION: VITAL SIGNS: The blood pressure is 141/74 and saturation is 97%. The patient is on a PRVC mode of ventilation. HEENT: Shows no facial swelling or erythema. CARDIAC: Reveals regular rate and rhythm with a normal S1 and S2. LUNGS: Auscultation of lungs reveals decreased breath sounds at the bases. There is no wheezing. ABDOMEN: Soft and nontender. There is no rebound or guarding. EXTREMITIES: Shows no leg edema or calf tenderness. NEUROLOGICAL: Shows some left hemiparesis. LABORATORY DATA: BUN to creatinine ratio is normal. Sodium is 134. Blood sugar is 178. White blood cell count is 7.4 and hemoglobin is 8. The platelet count is 290. RADIOGRAPHIC DATA: Chest x-ray shows unchanged bilateral airspace opacities. IMPRESSION: 1. Acute respiratory failure. 2. Bilateral pneumothoraces with subcutaneous emphysema. 3. Left-sided marycarmen paresis. 4. Anemia. 5. COVID-19 has resolved. 6. Anemia, unspecified. 7. Deep vein thrombosis. 8. Sacral decubitus wound. PLAN: 1. Repeat chest x-ray after chest tube removal. 2. Repeat ABG. 3. CT scan of head today. 4. Continue enteral feedings. 5. Continue wound care. 6. Continue heparin. 7. Case discussed with nursing, Respiratory, Internal Medicine, and administration. Greater than 35 minutes in direct critical care time. Severiano Crow MD LM/[facility]SHALL /[id number]
--- NOTE | 2020-04-05 15:11 | Diagnostic Imaging Report ---
EXAMINATION: CHEST SINGLE (PORTABLE) INDICATION: Respiratory failure COMPARISON: Multiple prior chest radiographs, most recently 04/05/2020 FINDINGS: LINES/TUBES:Support lines and tubes unchanged. LUNGS:Bilateral airspace opacities. Consolidation in the right upper lobe has worsened compared to the prior radiograph of earlier the same day. PLEURA:Trace right pleural effusion. No pneumothorax. MEDIASTINUM:The cardiomediastinal silhouette appears unchanged in size and shape. BONES/SOFT TISSUES:No acute osseous injury. ABDOMEN:No free air under the diaphragm. IMPRESSION: Interval worsening of right upper lobe consolidation. Unchanged opacities in the remainder of the lungs. Support lines and tubes unchanged. Signed by: Humberto Lopez MD on 04/05/2020 3:07 PM
--- NOTE | 2020-04-05 17:04 | Consultation ---
DATE OF CONSULTATION: 02/18/2020 Pulmonary Critical Care consultation CHIEF COMPLAINT: Dyspnea and abnormal saturations. HISTORY OF PRESENT ILLNESS: The patient is a 35-year-old man. He has a history of diabetes. Apparently, he has been off his insulin for over a year. For the past 4 to 5 days, he has noted shortness of breath and cough. He also had some fever. He came to the emergency department and was noted to have low oxygen saturations and an abnormal chest x-ray. A CT scan showed scattered ground-glass opacities. PAST MEDICAL HISTORY: Diabetes. PAST SURGICAL HISTORY: Hand surgery. SOCIAL HISTORY: The patient works at a local [employer]. He does not smoke or drink. He lives with his brother. FAMILY HISTORY: There is a history of diabetes in the family. ALLERGIES: THERE ARE NO KNOWN DRUG ALLERGIES. REVIEW OF SYSTEMS: He did have some fevers. He denies headache. He notes some cough and some dyspnea. He denies chest pain. There is no nausea or vomiting. He has no leg edema. PHYSICAL EXAMINATION: VITAL SIGNS: The patient's vital signs are stable, but he is on 100% non-rebreather. His saturations are in the mid 90s. HEENT: Shows no facial swelling or erythema. CARDIAC: Reveals regular rate and rhythm with normal S1, S2. LUNGS: Auscultation of lungs reveals crackles in both lung alvarado. ABDOMEN: Soft, nontender. There is no rebound or guarding. EXTREMITIES: Show no leg edema or calf tenderness. There is no cyanosis or clubbing. SKIN: Shows no rashes. IMPRESSION: 1. Acute respiratory failure. 2. Bilateral infiltrates, suggestive of bilateral pneumonia. 3. Diabetes mellitus. 4. Acute kidney injury. PLAN: 1. Judicious use of IV fluids. 2. Continue oxygen at 100%. 3. Monitor and control blood sugars. 4. Await results of COVID-19. 5. ICU care. Severiano Crow MD [facility]/MODL /[id number]
--- NOTE | 2020-04-05 17:54 | Diagnostic Imaging Report ---
History:Hypoxemia. Comparison studies: None Technique: Axial images were obtained from the skull base to the vertex. Coronal and sagittal images reconstructed from the axial data. Dose modulation, iterative reconstruction, and/or weight based adjustment of the mA/kV was utilized to reduce the radiation dose to as low as reasonably achievable. Intravenous contrast: None Findings: The study is limited by motion artifact. Scalp/skull: No abnormalities. Extra-axial spaces: No masses. No fluid collections. Brain sulci: Normal. Ventricles: Normal in caliber.. No hydrocephalus. Parenchyma: No masses, hemorrhage, acute or chronic cortical vascular insults. Sellar/suprasellar region: No abnormalities. Craniocervical junction: Patent foramen magnum. No Chiari one malformation. Incidental findings: There is scattered fluid within bilateral mastoid air cells, a nonspecific finding. The visible paranasal sinuses are clear. Impression: Motion degraded examination. Within these constraints, no gross acute intracranial abnormality. Preliminary report was given by Neuroradiology fellow Dr. Hilario at 5:53 PM on 04/05/2020. I have reviewed the images and agree with findings in the preliminary report. Signed by: Dr. Angela Gan M.D. on 04/05/2020 7:56 PM
--- NOTE | 2020-04-05 18:00 | Progress Note ---
DATE: SUBJECTIVE: Mr. Love continues to improve slowly. I am concerned about the trach site, had some drainage and dehiscence of the wound around the trach, but the patient clinically improved slowly. Spontaneously breathing 35 minutes this morning. Awake, but really not fully cooperative yet. PHYSICAL EXAMINATION: VITAL SIGNS: Afebrile. Stable. HEENT: Not icteric. NECK: Supple. CHEST: Few crackles. COR: S1 and S2. No S3, S4, or murmurs. ABDOMEN: Soft. IMPRESSION: Acute respiratory failure, status post pneumothorax, status post subcutaneous emphysema, status post left-sided hemiparesis, status post COVID-19 on admission. PCR is negative x2, anemia, history of DVT with thrombosis, history of decubitus ulcer. Off antibiotic. Continue supportive care. Continue with local care. Discussed with the medical team, transferring him to LTAC. We will get one more PCR if that is negative we will discontinue isolation. MD HARVEY Alexis/FREDY /[id number]
[2020-04-05 18:05] LABS: ABG PH 7.38 (7.35-7.45)
[2020-04-05 18:06] LABS: ABG HCO3 39 mmol/L (22-26); ABG PCO2 66 mmHg (35-45); ABG PO2 124 mmHg (80-105)
--- NOTE | 2020-04-05 18:12 | Diagnostic Imaging Report ---
EXAM: CT Chest WITHOUT contrast INDICATION: ^f/u PNEUMO ^[id number] ^[id number] COMPARISON: Chest CT dated 03/28/2020. Same day chest x-ray TECHNIQUE: Chest was scanned utilizing a multidetector helical scanner from the lung apex through the level of the adrenal glands without administration of IV contrast. Absence of intravenous contrast decreases sensitivity for detection of lymphadenopathy and vascular pathology. Coronal and sagittal reformations were obtained. Routine protocol was performed. IV CONTRAST: None COMPLICATIONS: None RADIATION DOSE: Total DLP: 1442.24 mGy*cm Estimated effective dose: (DLP x 0.014 x size factor) mSv CTDIvol has been reviewed. It is below the limits set by the Radiation Protocol Committee (RPC). FINDINGS: Streak artifacts limit evaluation. LINES/ TUBES: Right upper lobe pleural pigtail catheter. Endotracheal tube with tip above latasha. Left PICC with tip at right atrium. Left chest tube with tip in left upper lobe and mediastinal area. Percutaneous gastrostomy tube in place. LUNGS AND AIRWAYS: Again seen bilateral airspace opacities, right greater than left. Left lower lobe consolidation is not significantly changed. Airways are normal. PLEURA: Small bilateral pleural effusions. Bilateral multiloculated pneumothorax, increased from prior CT dated 03/28/2020. Maximal air gap on the right now measures 8 cm and on the left 2.8 cm. HEART AND MEDIASTINUM: The thyroid gland is normal. Mediastinal lymphadenopathy such as 2.2 cm right paratracheal lymph node. No axillary lymphadenopathy. The heart is normal in size.. There is no pericardial effusion. There are mild atherosclerotic calcifications in the aorta and coronary arteries. Resolved previously seen pneumomediastinum. Markedly decreased chest wall emphysema. UPPER ABDOMEN: Partially visualized right renal midpole partially exophytic and calcified lesion. BONES: The visualized bony thorax is within normal limits. SOFT TISSUES: Unremarkable. IMPRESSION: Again seen bilateral airspace opacities, right greater than left, representing multifocal pneumonia. Left lower lobe consolidation is not significantly changed, representing combination of atelectasis, aspiration, and/or pneumonia. Small bilateral pleural effusions. Bilateral multiloculated pneumothoraces, markedly increased from prior CT dated 03/28/2020. Resolved previously seen pneumomediastinum. Markedly decreased chest wall emphysema. Findings discussed with ICU Nurse cecelia at 6:10pm, on 04/05/2020. Signed by: Dr. Chalo Davis MD on 04/05/2020 6:07 PM
[2020-04-05] MEDS ORDERED: LIDOCAINE HCL 1% LOCAL INJ 20 ML VIAL ONE (19:44)
--- NOTE | 2020-04-05 20:15 | NUR ---
TO RADIOLOGU FOR CHEST TUBE INSERTION, ACCOMPANIED BY RN AND RT
--- NOTE | 2020-04-05 21:40 | NUR ---
RETURNED TO ICU. 10 FR CHEST X 2 PLACED - 1 EACH BILATERALLY. PATIENT TOLERATED PROCEDURE WELL. NOW HAS 2 CHEST TUBES ON EACH SIDE - ALL CONNECTED TO WALL SUCTION AND FUNCTIONING PROPERLY WITH NO LEAKS NOTED.
[2020-04-06] VITALS (25 sets, daily range): BP systolic 110–176; BP diastolic 62–98
[2020-04-06 05:10] LABS: BASOPHILS % 0.1 % (0.0-1.0); EOSINOPHILS # (AUTO) 0.3 (0.0-0.4); EOSINOPHILS % 3.4 % (0.0-6.0); HEMATOCRIT 24.7 % (38.2-49.6); HEMOGLOBIN 7.7 g/dL (14.0-18.0); LYMPHOCYTES # (AUTO) 1.1 (1.0-3.2); LYMPHOCYTES % 15.1 % (18.0-39.1); MEAN CORPUSCULAR HEMOGLOBIN 24.8 pg (28-32); MEAN CORPUSCULAR HGB CONC 31.2 g/dL (31-35); MEAN CORPUSCULAR VOLUME 79.4 fL (81-99); MONOCYTES # (AUTO) 1.1 (0.2-0.8); MONOCYTES % 14.9 % (4.4-11.3); NEUTROPHILS # (AUTO) 4.9 (2.1-6.9); PLATELET COUNT 368 x10e3/uL (140-360); RED BLOOD COUNT 3.11 x10e6/uL (4.3-5.7); RED CELL DISTRIBUTION WIDTH 16.1 % (11.7-14.4)
[2020-04-06 05:28] LABS: ALANINE AMINOTRANSFERASE 12 IU/L (0-55); ALBUMIN 1.5 g/dL (3.5-5.0); ALBUMIN/GLOBULIN RATIO 0.3 (0.8-2.0); ALKALINE PHOSPHATASE 75 IU/L (40-150); ANION GAP 12.2 mmol/L (8-16); BLOOD UREA NITROGEN 25 mg/dL (7-26); BUN/CREATININE RATIO 32 (6-25); CALCIUM 8.7 mg/dL (8.4-10.2); CARBON DIOXIDE 35 mmol/L (22-29); CHLORIDE 93 mmol/L (98-107); CREATININE, SERUM 0.78 mg/dL (0.72-1.25); EST GLOMERULAR FILTRATION RATE > 60 ML/MIN (60-); GLUCOSE 111 mg/dL (74-118); POTASSIUM 4.2 mmol/L (3.5-5.1); SODIUM 136 mmol/L (136-145)
--- NOTE | 2020-04-06 06:52 | Diagnostic Imaging Report ---
EXAMINATION: CHEST SINGLE (PORTABLE) INDICATION: Respiratory failure COMPARISON: 04/05/2020 FINDINGS: AP view TUBES and LINES: Interval placement of bilateral pigtail chest tubes, two on the right and one on the left. Unchanged large bore left chest tube. Unchanged tracheostomy tube. LUNGS: Interval increase in right lung pulmonary airspace disease. Unchanged appearance of the left lung. PLEURA: Tiny right pneumothorax at the right lung base. Tiny left apical pneumothorax. No discrete pleural effusion. HEART AND MEDIASTINUM: The cardiomediastinal silhouette is unchanged. BONES AND SOFT TISSUES: No acute osseous lesion. Soft tissues are unremarkable. UPPER ABDOMEN: No free air under the diaphragm. IMPRESSION: 1. Interval placement of bilateral pigtail chest tubes with near complete resolution of the previously seen bilateral pneumothoraces. 2. Interval increase in right lung airspace disease, possibly a combination of pneumonia or reexpansion pulmonary edema. Signed by: Tone Mcmanus MD on 04/06/2020 6:48 AM
[2020-04-06] MEDS: PROPOFOL IV EMULSION 10 MG/ML 50 ML VIAL IV PRN ×5 (08:26→21:52)
[2020-04-06] MEDS: MUPIROCIN 2% OINT 22 GM TUBE TOP SCH ×2 (08:26→16:30)
[2020-04-06] MEDS: SODIUM HYPOCHLORITE 0.25% 480 ML SOLN IR SCH (08:26)
[2020-04-06] MEDS ORDERED: ALBUMIN 25% 25GM 100ML 0.25 GM/ML BTL IV ONE (08:30)
--- NOTE | 2020-04-06 08:44 | NUR ---
PAGED AT THIS TIME LEFT FOR NEW CONSULT
[2020-04-06] MEDS ORDERED: ALBUMIN 25% 25GM 100ML 200 ML IV ONE (08:45)
--- NOTE | 2020-04-06 08:58 | Progress Note ---
DATE: SUBJECTIVE: The patient had a CT scan of the head and chest last night. CT scan of the head did not show any definite stroke. CT of the chest showed loculated pneumothoraces bilaterally. The patient went to Interventional Radiology. A new pigtail catheter was placed on the left as well as the right. The patient has four chest tubes in place. Two new ones and two old ones. There was a minimal drainage from any of the tubes. The two new tubes have some respiratory variation, but no air leak. The old tubes did not have respiratory variation or air leak. PHYSICAL EXAMINATION: VITAL SIGNS: The blood pressure is 110/76. Heart rate is 106. The temperature is 99. The patient is afebrile. HEENT: Shows no facial swelling or erythema. CARDIAC: Reveals regular rate and rhythm with normal S1, S2. LUNGS: Auscultation of lungs shows decreased breath sounds at the bases. There are two function chest tubes placed by Interventional Radiology last night, one on each side. The two old tubes did not appear to be functioning. ABDOMEN: Soft, nontender. There is no rebound or guarding. There is a feeding tube in place. EXTREMITIES: There is no leg edema. NEUROLOGICAL: Still shows some left hemiparesis. LABORATORY DATA: White blood cell count is 7.3 and hemoglobin is 7.7. The platelet count is 368. The BUN to creatinine ratio is normal. The sodium is 136. Albumin is 1.5. IMPRESSION: 1. Acute respiratory failure. 2. Bilateral loculated pneumothoraces. 3. Left-sided hemiparesis, probably representing a stroke. 4. Anemia secondary to chronic blood loss. 5. COVID-19 infection that has resolved. 6. Deep vein thrombosis. 7. Sacral decubitus ulcer. 8. Moderate protein-calorie malnutrition. PLAN: 1. Remove two nonfunctioning chest tubes. 2. Thoracic Surgery consultation. 3. Continue spontaneous breathing trials. 4. Continue enteral feedings. 5. Restart heparin. 6. Physical therapy. 7. Wound care. Case discussed with Nursing, Radiology, Internal Medicine, administration, and Thoracic Surgery. Greater than 35 minutes in direct critical care time. Severiano Crow MD [facility]/MODL /[id number]
[2020-04-06] MEDS ORDERED: FUROSEMIDE INJ 10 MG/ML 4 ML VIAL IV ONE (09:15)
--- NOTE | 2020-04-06 09:50 | NUR ---
SBT DONE PT ON CPAP FOR 50 MIN BECAME ANXIOUS AND TACHYCARDIC 130'S BP INTO 190'S PT ASKED IF HE WAS SOB SHOOK HEAD NO WHEN ASKED IF IN PAIN SHOOK HEAD YES SEDATION AND PAIN MEDICATION BACK ON PT REPOSITIONED WILL CONTINUE TO MONITOR CLOSELY
[2020-04-06] MEDS: FENTANYL 2,000 MCG/250 ML BAG IV PRN (14:10)
[2020-04-06] MEDS: HEPARIN 25,000 UNIT 1,500 UNIT in DEXTROSE 5% 250ML 250 ML IV SCH ×2 (15:03→23:46)
--- NOTE | 2020-04-06 16:55 | Progress Note ---
DATE: SUBJECTIVE: Mr. Love remains in intensive care unit, tired, fatigued, not fully alert, but comfortable. His 3rd PCR came back negative. PHYSICAL EXAMINATION: GENERAL: Remains weak on the left side. HEENT: He is not icteric. NECK: Supple. CHEST: Few crackles. COR: S1 and S2. No S3, S4, or murmurs. ABDOMEN: Soft. Bowel sounds present. No tenderness. EXTREMITIES: No edema. SKIN: No rash. IMPRESSION: COVID-19, on admission respiratory failure, seems to be slowly getting better. ARDS improving, left-sided hemiparesis, concerned about stroke. We will obtain an MRI. Three PCRs are negative 48 hours apart, all negative. Can discharge, droplet isolation, history of DVT on blood thinner, status post tracheostomy, protein malnutrition, debility, status post pneumothorax. The patient could be discharged to long-term facility. MD HARVEY Alexsi/MODL /[id number]
--- NOTE | 2020-04-06 20:15 | Consultation ---
DATE OF CONSULTATION: 04/06/2020 REASON FOR CONSULT: Loculated pneumothorax, COVID-19; requested by Dr. Emili Crow. HISTORY OF PRESENT ILLNESS: I saw and evaluated this patient on April 06, 2020. This is a 35-year-old man with a history of diabetes. He had been poorly compliant with his insulin over the last year. He was admitted to the hospital with 4-5 days of distinct shortness of breath. He had very low oxygen saturations on admission and an abnormal chest x-ray with ground-glass opacities. He was intubated and has been critically ill, although he is now recovering. COVID-19 testing was positive initially, but now has been negative on two samples. He has been on high FiO2, but now is on FiO2 40%, and is responsive. He had a question of a stroke, which has been ruled out by CT scan. He has had bilateral pneumothoraces. He has two chest tubes on the right and had two chest tubes inserted this morning on the left. On the right, the CT scan shows a loculated pneumothorax of approximately 15%. Upper and lower lobes are inflated around this area of pneumothorax. There is no large pleural collection in either lung. FiO2 is 40% with PEEP of 5. Chest x-rays show ground-glass appearance, but the pneumothorax cannot be visualized easily. Currently on antibiotics and not febrile. PAST MEDICAL HISTORY: Positive for non-insulin diabetes. PAST SURGICAL HISTORY: Positive for hand surgery. SOCIAL HISTORY: The patient works at a local [employer]. Does not smoke or drink. He lives with his brother. FAMILY HISTORY: History of diabetes, but negative for pulmonary disease. ALLERGIES: NONE KNOWN. MEDICATIONS: At home, noncompliant with insulin therapy. REVIEW OF SYSTEMS: Intubated and not obtainable. PHYSICAL EXAMINATION: GENERAL: On isolation in the ICU. VITAL SIGNS: Blood pressure 120/70. Pulse 90 and regular. O2 saturation 90%. FiO2 is 40%. PEEP is 5. LUNGS: Bilateral crackles. NECK: Supple and nontender. CARDIAC: Shows a regular rate and rhythm. Normal S1, S2. ABDOMEN: Globoid benign. No palpable masses. BACK: No CVA tenderness. No muscular spasm. EXTREMITIES: No cyanosis, clubbing, or edema. VASCULAR: Carotids and femorals 2+/2+ bilaterally. SKIN: No rashes or nonhealing ulcers. MUSCULOSKELETAL: Full range of motion at all joints. No joint swelling. NEUROLOGIC: Sedated, but moving all four appropriately. LYMPHATIC: Negative for cervical, clavicular, femoral adenopathy. IMAGING: Chest x-ray and CT scan are reviewed and as are above. LABORATORIES: White count 7.43, hemoglobin 7.7, hematocrit 24.7, platelet count 368,000. PTT is 67. Sodium 136, potassium 4.2, BUN 25, creatinine 0.78. IMPRESSION: Loculated pneumothorax on the right. Lung function is good and recovering. There is no air leak in any of the Pleur-evac. On chest x-ray this morning, the loculated right-sided pneumothorax is not visible. The CT scan was obtained yesterday. I discussed and reviewed the case with Dr. Severiano Crow. At this point, lung function is good. The patient is recovering well. There is no large air leak or bronchopleural fistula. There is no collection that appears infected in the pulmonary cavities. I would recommend nonoperative care at this point with a repeat CT scan in 3-4 days to assess the loculated pneumothorax. Operative interventions at this point would require an open thoracotomy since thoracoscopic procedure will be challenging in this patient with very compromised pulmonary function. The risks of the procedure at this point likely outweigh the benefits. We will continue to follow. Thank you very much for asking me to see this unlucky man. MD JESSIE Williamson/MODL /[id number]
[2020-04-06] MEDS ORDERED: HEPARIN 25,000 UNIT DRIP IV ONE (23:09)
[2020-04-07] VITALS (24 sets, daily range): BP systolic 104–173; BP diastolic 61–97
[2020-04-07] MEDS: PROPOFOL IV EMULSION 10 MG/ML 50 ML VIAL IV PRN ×4 (00:03→09:14)
[2020-04-07] MEDS: FENTANYL 2,000 MCG/250 ML BAG IV PRN ×2 (00:03→09:44)
[2020-04-07 04:38] LABS: BASOPHILS % 0.2 % (0.0-1.0); EOSINOPHILS # (AUTO) 0.2 (0.0-0.4); EOSINOPHILS % 3.3 % (0.0-6.0); HEMATOCRIT 21.8 % (38.2-49.6); LYMPHOCYTES % 16.1 % (18.0-39.1); MEAN CORPUSCULAR HGB CONC 31.7 g/dL (31-35); MONOCYTES % 15.6 % (4.4-11.3); NEUTROPHILS % 64.5 % (38.7-80.0); PLATELET COUNT 287 x10e3/uL (140-360); RED BLOOD COUNT 2.76 x10e6/uL (4.3-5.7)
[2020-04-07 04:52] LABS: HEMOGLOBIN 6.9 g/dL (14.0-18.0)
[2020-04-07 04:58] LABS: ALANINE AMINOTRANSFERASE 16 IU/L (0-55); ALBUMIN 1.9 g/dL (3.5-5.0); ALBUMIN/GLOBULIN RATIO 0.4 (0.8-2.0); ALKALINE PHOSPHATASE 72 IU/L (40-150); ANION GAP 11.8 mmol/L (8-16); BLOOD UREA NITROGEN 25 mg/dL (7-26); BUN/CREATININE RATIO 32 (6-25); CALCIUM 8.7 mg/dL (8.4-10.2); CARBON DIOXIDE 36 mmol/L (22-29); CHLORIDE 92 mmol/L (98-107); CREATININE, SERUM 0.77 mg/dL (0.72-1.25); EST GLOMERULAR FILTRATION RATE > 60 ML/MIN (60-); GLUCOSE 163 mg/dL (74-118); POTASSIUM 3.8 mmol/L (3.5-5.1); SODIUM 136 mmol/L (136-145)
--- NOTE | 2020-04-07 06:05 | Diagnostic Imaging Report ---
EXAMINATION: CHEST SINGLE (PORTABLE) INDICATION: ^resp failure COMPARISON: FINDINGS: AP view TUBES and LINES: Unchanged tracheostomy tube, bilateral pigtail chest tubes, and right large bore chest tube. LUNGS: Unchanged pulmonary airspace disease, right greater than left. PLEURA: Unchanged tiny right basilar pneumothorax. The previously seen left apical pneumothorax is not discretely identified. HEART AND MEDIASTINUM: The cardiomediastinal silhouette is unchanged. BONES AND SOFT TISSUES: No acute osseous lesion. Soft tissues are unremarkable. UPPER ABDOMEN: No free air under the diaphragm. IMPRESSION: Unchanged pulmonary airspace disease, right lung greater than left. Unchanged tiny right basilar pneumothorax. The previously seen left apical pneumothorax is not discretely identified. Signed by: Tone Mcmanus MD on 04/07/2020 6:02 AM
[2020-04-07 07:01] LABS: ANISOCYTOSIS SLIGHT
[2020-04-07 07:02] LABS: MICROCYTOSIS MODERATE; PLATELET ESTIMATE ADEQUATE; PLATELET MORPHOLOGY COMMENT NORMAL
[2020-04-07 07:03] LABS: POIKILOCYTOSIS SLIGHT; RBC MORPHOLOGY COMMENT ABNORMAL
--- NOTE | 2020-04-07 07:32 | NUR ---
propofol on standby for sedation vacation and sbt
[2020-04-07] MEDS: SODIUM HYPOCHLORITE 0.25% 480 ML SOLN IR SCH (08:26)
--- NOTE | 2020-04-07 08:28 | NUR ---
heparin gtt discontinued per Dr Chau
[2020-04-07] MEDS: MUPIROCIN 2% OINT 22 GM TUBE TOP SCH ×2 (08:39→17:09)
[2020-04-07] MEDS: FAMOTIDINE 20 MG/2 ML VIAL IV SCH ×2 (09:14→17:09)
--- NOTE | 2020-04-07 09:46 | NUR ---
fentanyl weaned from 200 mcg/hr to 150 mcg/hr
[2020-04-07] MEDS ORDERED: SODIUM CHLORIDE 0.9% 250ML 250 ML IV PRN (10:15)
--- NOTE | 2020-04-07 10:30 | NUR ---
weaned fentanyl down to 125 mcg/hr Addendum: 04/07/20 at 1031 by Janelle Elias RN propofol continues on hold
--- NOTE | 2020-04-07 11:30 | NUR ---
CPAP WEANING TRIAL STARTED
--- NOTE | 2020-04-07 13:09 | NUR ---
PROPOFOL RESTARTED AND INCREASED FENTANYL TO 150 MCG/HR.
[2020-04-07] MEDS: INSULIN REGULAR, HUMAN 3ML VL 100 UNIT in SODIUM CHLORIDE 0.9% 100 ML IV SCH ×2 (15:41)
--- NOTE | 2020-04-07 15:54 | Diagnostic Imaging Report ---
History: Hypoxemia, possible stroke Comparison studies: None Technique: Axial images were obtained from the skull base to the vertex. Coronal and sagittal reconstructions obtained from the axial data. Dose modulation, iterative reconstruction, and/or weight based adjustment of the mA/kV was utilized to reduce the radiation dose to as low as reasonably achievable. Findings: The motion artifact with the majority limits the evaluation. Scalp/skull: No abnormalities. No fractures, blastic or lytic lesions. Extra-axial spaces: No masses. No fluid collections. Brain sulci: Appropriate for age. Ventricles: Normal in size and configuration. No hydrocephalus. Parenchyma: No abnormal densities. No masses, hemorrhage, acute or chronic cortical vascular insults. Sellar/suprasellar region: No abnormalities Craniocervical junction: Patent foramen magnum. No Chiari one malformation. Partial opacification of the bilateral posterior mastoid air cells, related to nonspecific inflammation IMPRESSION: Limited study by motion artifact. No significant intracranial abnormalities . Nonspecific inflammatory changes of the bilateral mastoid air cells. Signed by: DR Balbir Barrientos M.D. on 04/07/2020 3:50 PM
--- NOTE | 2020-04-07 15:54 | NUR ---
Nutrition Intervention Note RD Recommendation(s) for Physician: - Recommend continuing Vital High Protein and increasing goal rate to 70 mL/hr when pt is no longer on propofol (provides 1680 kcal, 147 g protein, and 1404 mL water per day). - Water flushes per MD. Plan of Care: RD following, monitoring for tolerance and adequacy. TF recs. Nutrition reason for involvement: follow up RD Assessment 04/07: Follow up. Pt is tolerating tube feeding at 60 mL/hr. Pt is no longer going to be receiving propofol per RN; therefore, recommend increasing tube feeding to 70 mL/hr. Informed RN of recommendation. Will continue to monitor. 04/04: Follow up. Pt discussed during am MDR. Pt remains on vent via trach, tolerating TF at goal rate of 60 ml/hr per RN. Pt continues on Propofol at 12 ml/hr. Recommend continue current TF goal rate, additional kcal provided from Propofol. Chart reviewed. Will continue to monitor. 03/31: Follow up. Per chart, pts trach was replaced yesterday. Pt is receiving propofol @ 12 mL/hr per RN which provides 317 kcal. Pt is tolerating Vital High Protein @ 45 mL/hr at this time. Recommend increasing rate towards goal rate as medically appropriate. Will continue to monitor 03/28: Follow up. Pt remains intubated and sedated, currently on Fentanyl drip and Propofol drop. Pt s/p cardiopulmonary arrest yesterday requiring CPR and subsequent bilateral chest tube placement. Pt now intubated and trach removed. TF remains off currently, noted last documented TF of 520 ml total received on 03/27. TF rec's provided when feasible to resume. Will continue to monitor. 03/24: Follow up. Pt remains intubated and sedated. Pt is currently receiving propofol @ 37.4 ml/hr per RN which provides 987 kcal. Per MD note, pt is planned to receive a trach and PEG today; therefore, tube feeding is on hold at this time. Will continue to monitor. 03/21: Follow up. Pt remains intubated and sedated, currently on Propofol and Versed. Pt off, CPAP trials, plan to resume TF per RN. Plan for trach placement tomorrow. Chart reviewed. Discussed TF rec's with RN on unit as pt not meeting protein needs and Propofol providing additional kcal. Will continue to monitor. 03/17: Follow up. Pt remains intubated and is sedated on propofol @ 21.8 mL/hr which provides 575 kcal. Pt is tolerating tube feeding and is receiving Nepro @ 40 mL/hr. Recommend modifying formula to Vital High Protein. Informed RN of recommendation. Will continue to monitor. 03/13: Follow up. Pt remains intubated and sedated, off Propofol and continues on Fentanyl drip. Pt continues on TF of Nepro at 40 ml/hr, no dialysis initiated and renal trend improving. TF meeting current estimated needs. Current rec's remain appropriate. Chart reviewed. Will continue to monitor. 03/08: Follow up. Pt remains intubated and sedated on Propofol and Fentanyl drips. No pressor support. Pt on TF of Nepro at 40 ml/hr. Renal trend noted, no dialysis currently. TF meeting estimated kcal and protein needs per current renal trend. TF rec's provided pending dialysis initiation and continued Propofol use. Chart reviewed. Will continue to monitor. 03/03: Follow up. Pt remains mechanically ventilated. Pt is receiving Glucerna 1.2 @ 40 ml/hr per chart. Pt is receiving 26.7 mL/hr of propofol which provides 705 kcal. Recommend modifying formula to Vital High Protein. Will continue to monitor. 02/28: Follow up. Pt remains intubated, sedated with Propofol and fentanyl drip. Pt not currently on pressors. TF currently off per am documentation, previously infusing at 20 ml/hr on 02/27 and 02/26- not meeting needs. Pt with increased water flushes per MD 2/2 hypernatremia. Chart reviewed. TF rec's relayed to RN. Will continue to monitor. 02/24: Follow up. Pt remains mechanically ventilated. Per RN, pt is tolerating tube feeding of Glucerna 1.2 @ 40 mL/hr. Recommend modifying formula to Vital High Protein. RD recommendation provided to nurse. Will continue to monitor. 02/20: 35 YOM admitted for hypoxemia, hyperglycemia with PMH listed below. Physical visit was deferred d/t hospitals infection disease policy. Pt is intubated on fentanyl and propofol. Pt is not on pressors as of now. The nurse reported the pt was ordered pressors over the weekend but has not needed it today. Nurse reported possible ARDS, they have not had to place the pt in the prone position yet. Pt was ordered Glucerna 1.2 at 20 ml/hr advance to goal rate of 60 ml/hr with 100 ml of water every 4 hours (1728 kcal, 86gram protein) . RD recommendations provided above and given to nurse. Unaware of propofol rate d/t not being able to enter the room and nurse not knowing at current time. Nurse reported the pt is currently on 20 ml/hr of Glucerna 1.2. Will continue to monitor. Principal Problems/Diagnoses: hypoxemia, hyperglycemia PMH: Uncontrolled type 2 diabetes mellitus. GI: last recorded BM 04/06 Skin: unstagable sacral PU Labs: 04/07: Na 136, K 3.8, BUN 25, Cr 0.77, Glu 163 04/04: Na 135, K 3.7, BUN 25, Cr 1.04, Gluc 163, Ca 8.1 03/31: Na 144, K 3.4, BUN 21, Cr 0.84, Glu 119 03/28: Na 148, K 4, BUN 27, Cr 0.88, Gluc 119, POC Gluc 131-152 03/24: Na 142, K 3.9, BUN 22, Cr 0.76, Glu 127 03/21: Na 145, K 3.9, BUN 22, Cr 0.88, Gluc 186, POC Gluc 98- 200 03/17: Na 144, K 3.8, BUN 26, Cr 0.86. Glu 200 03/13: Na 141, K 3.6, BUN 39, Cr 1.13, Gluc 245, POC Gluc 261-286 03/08: Na 142, K 4.4, BUN 54, Cr 1.42, Gluc 323, POC Gluc 316-336 Meds: fentanyl, pepcid, insulin, lipitor Ht:71 in Wt: 238 lbs (04/07) 233.5 lbs (04/04) 231 lbs (03/31) 225 lbs (03/24) 220 lbs (03/17) 212 lbs (02/27) 215 lbs (02/23) 213 lb (02/20) BMI:32.2 kg/m^2 IBW:172 lbs Malnutrition Evaluation (03/21) -unable to perform nutrition assessment Nutrition Prescription (Diet Order): TF: Vital HP at 60 ml/hr Estimated Nutritional Needs: Calories: 8239-7620 kcal/day (20- 25 kcal/kg/day) Weight used : IBW (78 kg) Protein : 94 156 g protein/day (1.2-2 gram/kg/day ) Weight used: IBW (78 kg) Diet Adequacy: meeting calorie needs, meeting protein needs Diet Education Needs Assessment: Diet education not indicated, patient on temporary/transition diet. Nutrition Care Level: moderate Nutrition Diagnosis: Inadequate energy intake related to medical condition as evidenced by the pt needing mechanical ventilation and need for TF to meet energy and protein needs. Goal: Patient will meet 75-100% of estimated needs by follow up Progress: progressing Interventions: -TF (Composition, Rate, Route),Recommended Modifications, Collaboration with other providers Monitoring/Evaluation: -Total energy intake, Total protein intake, Formula/Solution Signed: Hazel Alonzo RD, LD
--- NOTE | 2020-04-07 16:03 | Progress Note ---
DATE: SUBJECTIVE: The patient was evaluated by CT Surgery yesterday. He was also evaluated by Neurology this morning. The neurologist believes the patient did suffer a stroke. PHYSICAL EXAMINATION: VITAL SIGNS: The blood pressure is 146/98. Saturation is 94%. HEENT: Shows no facial swelling or erythema. CARDIAC: Reveals regular rate and rhythm with normal S1 and S2. LUNGS: Auscultation of lungs reveals clear breath sounds bilaterally. There is no wheezing. ABDOMEN: Soft and nontender. There is no rebound or guarding. EXTREMITIES: Shows no leg edema or calf tenderness. There is a feeding tube in place. The patient does not move his left side well. LABORATORY DATA: Hemoglobin is 6.9 and the white blood cell count is 6.1. The platelet count is 287. BUN to creatinine ratio is 25 to 0.77. The other electrolytes are within normal limits. The blood sugar is 199. RADIOGRAPHIC DATA: Chest x-ray shows unchanged bilateral airspace disease. IMPRESSION: 1. Anemia secondary to chronic blood loss. 2. Acute respiratory failure. 3. COVID-19 infection. 4. Stroke with left hemiparesis. 5. Deep vein thrombosis. 6. Sacral decubitus ulcer. 7. Moderate protein-calorie malnutrition. PLAN: 1. One unit of packed red blood cells. 2. Leave chest tubes in place for now and repeat CT scan in 3 days. 3. Continue spontaneous breathing trials. 4. Continue enteral feedings. 5. Restart heparin. 6. Physical therapy. 7. Wound care. 8. Case discussed with Neurology, Thoracic Surgery, Internal Medicine, administration, nursing and Respiratory. Severiano Crow MD [facility]/MODL /[id number]
--- NOTE | 2020-04-07 16:41 | Diagnostic Imaging Report ---
EXAM: CT Chest WITHOUT intravenous contrast 04/07/2020 2:56 PM INDICATION: Loculated pneumothorax. COMPARISON: Chest CT 04/05/2020 TECHNIQUE: Chest was scanned utilizing a multidetector helical scanner from the lung apex through the level of the adrenal glands without administration of IV contrast. Coronal and sagittal reformations were obtained. Routine protocol was performed. IV CONTRAST: None RADIATION DOSE: Total DLP: 672 mGy*cm. Dose modulation, iterative reconstruction, and/or weight based adjustment of the mA/kV was utilized to reduce the radiation dose to as low as reasonably achievable. COMPLICATIONS: None FINDINGS: LINES/ TUBES: Tracheostomy tube terminates in the midthoracic trachea. Left PICC line terminates at the superior cavoatrial junction. 2 pigtail pleural drainage catheters on the right. Single anterior pigtail pleural drainage catheter on the left and lateral larger surgical chest tube. LUNGS AND AIRWAYS: Unchanged appearance of extensive bilateral multifocal airspace consolidations and groundglass opacities. PLEURA: Small right hydropneumothorax. Tiny posterior left hydropneumothorax. Both are decreased compared to the chest CT of 04/05/2020. HEART AND MEDIASTINUM: Partially visualized thyroid gland appears unremarkable. Scattered prominent cervical and supraclavicular lymph nodes. No axillary lymphadenopathy. Extensive mediastinal lymphadenopathy, for example a right pretracheal lymph node which measures 3.4 x 1.8 cm. Assessment for hilar lymphadenopathy is suboptimal in the absence of intravenous contrast. The heart is not enlarged. No pericardial effusion. UPPER ABDOMEN: No acute findings. BONES: No acute osseous injury. SOFT TISSUES: Small amount of right pectoral subcutaneous emphysema. IMPRESSION: Interval decrease in size of right and left hydropneumothoraces. 2 right and 2 left chest tubes in place as above. Unchanged extensive bilateral multifocal consolidative and groundglass airspace opacities. Signed by: Humberto Lopez MD on 04/07/2020 4:38 PM
--- NOTE | 2020-04-07 17:04 | Consultation ---
DATE OF CONSULTATION: Neurology Consultation REASON FOR CONSULTATION: Left hemiparesis, encephalopathy. HISTORY OF PRESENT ILLNESS: The patient is a young man, who is 35 years old with a past medical history of poorly-controlled diabetes with poor compliance, who was admitted initially for shortness of breath, very low oxygen saturations, and abnormal chest x-ray with ground glass appearance. Test initially positive for COVID-19, and chest x-ray showed significant abnormalities. He has been intubated and persistently encephalopathic at this time, and I was asked to evaluate the patient for perceived left hemiparesis. He is not able to give much information, so his past, social history, and review of systems cannot be obtained. Although, the review of systems as mentioned, history of dyspnea, cough, and fevers. PHYSICAL EXAMINATION: VITAL SIGNS: Showed temperature currently of 98.5, heart rate of 117, and blood pressure 153/90. GENERAL: The patient has mechanical ventilation with a tracheostomy. He is arousable. He does follow commands. HEENT: Extraocular muscles intact. Pupils are reactive. Corneals are intact. There is no nuchal rigidity on exam. NECK: Trachea is midline, there is no pain. PULMONARY: Mechanical ventilation, with rhonchi. CARDIOVASCULAR: Tachycardic. ABDOMEN: Soft, nontender. EXTREMITIES: He moves his right side 4+/5 and left side 4-/5. He is not able to get the left leg off the bed. Right leg, he is able to lift off the bed and not able to maintain it up. Reflexes are symmetric. Right leg has a foot drop, and then his toes are mute to exam. We cannot evaluate for ataxia. He has not been verbalizing at this time. ASSESSMENT AND PLAN: This pleasant gentleman come in with respiratory dysfunction requiring intubation, has loculated pneumonia, COVID infection as well left side encephalopathy. The CT scan was negative, but it was poor quality. I do think it is warranted to get patient is on anti-platelet agents and statin and get an EEG if possible to look for focal unilateral dysfunction, and then we will progress from there. Overall, this patient is critically ill for pneumonia, mechanical ventilator status, hypoxemia and hypoxemic encephalopathy as well as possible hemiparetic and neurophysiological dysfunction. I will continue to monitor the patient on antiepileptics at this time. MD JOHNNY ARNOLD/FREDY /[id number]
[2020-04-07] MEDS: LORAZEPAM INJ 2 MG/ML VIAL IV PRN ×2 (18:40→20:26)
--- NOTE | 2020-04-07 20:34 | Progress Note ---
DATE: SUBJECTIVE: Mr. Love remains in intensive care unit. His father is here at the bedside. I had a long discussion and updated him on his condition. The patient continued to have 4 chest tubes in. PHYSICAL EXAMINATION: GENERAL: Seems a bit more alert. VITAL SIGNS: Stable and afebrile. HEENT: Not icteric. NECK: Supple. CHEST: Few crackles. COR: S1 and S2. ABDOMEN: Soft. IMPRESSION: Acute respiratory distress syndrome is slowly better, COVID-19. On admission, repeat PCR negative. Currently off isolation. He had 3 negative PCR. Chest tubes bilateral for pneumothorax. Chronic kidney disease, diabetes mellitus with neuropathy. Continue supportive care. MD HARVEY Alexis/FREDY /[id number]
[2020-04-07] MEDS: ATORVASTATIN 20 MG TAB PO SCH (21:26)
[2020-04-08] VITALS (25 sets, daily range): BP systolic 141–178; BP diastolic 69–106
[2020-04-08] MEDS: LORAZEPAM INJ 2 MG/ML VIAL IV PRN ×3 (01:55→21:15)
[2020-04-08] MEDS: LABETALOL HCL 5 MG/ML 20ML VIAL IV PRN ×2 (02:54→12:53)
[2020-04-08 07:47] LABS: BASOPHILS % 0.3 % (0.0-1.0); EOSINOPHILS # (AUTO) 0.2 (0.0-0.4); EOSINOPHILS % 2.9 % (0.0-6.0); HEMATOCRIT 29.2 % (38.2-49.6); HEMOGLOBIN 9.1 g/dL (14.0-18.0); LYMPHOCYTES % 13.6 % (18.0-39.1); MEAN CORPUSCULAR HEMOGLOBIN 25.3 pg (28-32); MEAN CORPUSCULAR HGB CONC 31.2 g/dL (31-35); MEAN CORPUSCULAR VOLUME 81.3 fL (81-99); MONOCYTES % 14.6 % (4.4-11.3); NEUTROPHILS # (AUTO) 4.9 (2.1-6.9); PLATELET COUNT 302 x10e3/uL (140-360); RED BLOOD COUNT 3.59 x10e6/uL (4.3-5.7)
[2020-04-08] MEDS: MUPIROCIN 2% OINT 22 GM TUBE TOP SCH ×2 (07:51→16:54)
[2020-04-08] MEDS: FAMOTIDINE 20 MG/2 ML VIAL IV SCH ×2 (07:51→16:20)
[2020-04-08] MEDS: FENTANYL 2,000 MCG/250 ML BAG IV PRN ×2 (07:52→19:13)
[2020-04-08 08:06] LABS: ANION GAP 12.2 mmol/L (8-16); BLOOD UREA NITROGEN 26 mg/dL (7-26); BUN/CREATININE RATIO 32 (6-25); CALCIUM 8.9 mg/dL (8.4-10.2); CARBON DIOXIDE 35 mmol/L (22-29); CHLORIDE 93 mmol/L (98-107); CREATININE, SERUM 0.82 mg/dL (0.72-1.25); EST GLOMERULAR FILTRATION RATE > 60 ML/MIN (60-); GLUCOSE 168 mg/dL (74-118); POTASSIUM 4.2 mmol/L (3.5-5.1); SODIUM 136 mmol/L (136-145)
[2020-04-08 08:13] LABS: INR 0.99; PROTHROMBIN TIME 13.7 seconds (11.9-14.5)
[2020-04-08 08:14] LABS: PARTIAL THROMBOPLASTIN TIME 39.4 seconds (23.8-35.5)
[2020-04-08] MEDS ORDERED: ALBUMIN 25% 25GM 100ML 0.25 GM/ML BTL IV ONE (08:45)
[2020-04-08] MEDS ORDERED: FUROSEMIDE INJ 10 MG/ML 4 ML VIAL IV ONE (08:45)
[2020-04-08] MEDS: METOPROLOL TARTRATE 25 MG TAB PO SCH ×2 (09:00→16:21)
--- NOTE | 2020-04-08 10:17 | NUR ---
S : awake, follows commands 98.7 110 168/80 awake, follows commands, lethargic pupils reactive, mild ptosis left eye no nuchal rigidity eomi, no dysconjugacy rrr - tachy vent dependant abd soft moves rue 4/5 lue 2/5 at elbow able to cock-up wrist lle 2+/5 rle 3/5 reflexes diminished throughout no ataxia sensory grossly intact but exam is limited a/p left hemiparesis - repeat CT, patient is calm and able to tolerate CT brain EEG is pending no aed possible CVA associated w/ covid hypercoagulability vs critical care myopathy myogolin pending carotidu duplex pending
--- NOTE | 2020-04-08 10:37 | Progress Note ---
DATE: Pulmonary Critical Care Progress Note SUBJECTIVE: The patient received packed red blood cells yesterday. He tolerated spontaneous breathing trial for an hour and half yesterday and is scheduled to have spontaneous breathing trial again today. The patient had a CT scan of the head and chest yesterday. There was no obvious cerebrovascular infarct. The patient had decreased pneumothoraces. He still has some loculated pneumothorax on the right and a small hydropneumothorax on the left. He has no fever. OBJECTIVE: VITAL SIGNS: Blood pressure is 152/75, saturation is 97%. HEENT: Shows no facial swelling or erythema. CARDIAC: Reveals regular rate and rhythm with normal S1 and S2. LUNGS: Auscultation of lungs shows decreased breath sounds at the bases. There are two pigtail catheters on the right as well as a pigtail catheter on the left and a surgical chest tube on the left. ABDOMEN: Soft. There is a feeding tube in place. EXTREMITIES: Shows 1+ edema. There is some left hemiparesis. LABORATORY DATA: Hemoglobin is 9.1 and white blood cell count of 7.1. The platelet count is 302. The BUN to creatinine ratio is normal. The glucose is 198. Three separate coronavirus PCRs are negative. RADIOGRAPHIC DATA: Chest CT shows decrease in the size of the left and right hydropneumothoraces. There are two right and two left chest tubes in place. There are still extensive bilateral multifocal consolidations and ground-glass airspace opacities. CT scan of the brain shows no acute changes. ASSESSMENT: 1. Resolving bilateral hydropneumothoraces. 2. Acute respiratory failure. 3. Coronavirus disease - 19 infection. 4. Cerebrovascular accident with left hemiparesis. 5. Deep vein thrombosis. 6. Sacral decubitus ulcer. 7. Moderate protein-calorie malnutrition. 8. Anemia secondary to chronic blood loss. PLAN: 1. Repeat spontaneous breathing trial today. 2. Continue heparin. 3. Continue enteral feedings. 4. Wound care. 5. Physical therapy. 6. We will remove the left surgical chest tube within the next couple of days as well as the old right anterior pigtail catheter. The patient may need to return to Radiology for final drainage of his residual right hydropneumothorax. 7. Case discussed with father, nursing staff, Respiratory, and Internal Medicine. Greater than 35 minutes in direct critical care time. MD MUNA Ramos/FREDY /[id number]
[2020-04-08] MEDS: INSULIN REGULAR, HUMAN 3ML VL 100 UNIT in SODIUM CHLORIDE 0.9% 100 ML IV SCH ×2 (16:06)
--- NOTE | 2020-04-08 16:59 | Diagnostic Imaging Report ---
Date and Time: 04/05/2020 Procedure: Bilateral pleural drainage catheter placement boring and filling machine operator: Dr. Parker Pre-operative diagnosis: Bilateral pneumothoraces Post-operative diagnosis: Bilateral pneumothoraces Conscious Sedation: Propofol and fentanyl infusions per ICU team. The patient's heart rate and pulse oximetry were continuously monitored by the accompanying ICU nurse. Blood pressure was monitored at 5 minute intervals. Additional Medications: Lidocaine 1% for local anesthesia Contrast used: None Estimated blood loss: Minimal Specimens: None Implants: 10 Palauan locking loop drainage catheters x2 Condition at completion: Critical Disposition: Returned to ICU Complications: No immediate DISCUSSION: Informed consent was obtained and documented in the medical record after discussion of risks and benefits. The patient was placed in the supine position on the CT couch and marker grids were placed on the right and left anterior chest wall. Limited CT was performed, confirming moderate bilateral pneumothoraces. Suitable percutaneous approaches to the left and right pneumothoraces were identified and the overlying skin marked. The right and left anterior chest wall was then prepped and draped in the standard sterile fashion. Attention was first turned to the left pneumothorax. 1% lidocaine was infiltrated into the skin and subcutaneous tissues of the left anterior chest wall for local anesthesia. Then under intermittent CT guidance, an 18-gauge singlewall needle was advanced into the anterior left pneumothorax, with free aspiration of air confirming appropriate positioning. A 0.0 3 5-in. wire was then advanced through the needle and coiled within the pleural space. The needle was removed over the wire and the tract was dilated. Then, a 10 Palauan locking loop drainage catheter was advanced over the wire, which was then removed. The catheter was secured to the skin with monofilament nylon suture and a sterile dressing was applied. The catheter was connected to pleural evacuation device and placed on on waterseal. Attention was then turned to the right pneumothorax. 1% lidocaine was infiltrated into the skin and subcutaneous tissues for local anesthesia. Then, again under intermittent CT guidance, an 18-gauge singlewall needle was advanced into the pneumothorax with free aspiration of air confirming appropriate positioning. A 0.0 3 5-in. wire was then advanced through the needle and coiled within the pleural space. The needle was removed over the wire, the tract was dilated, and a 10 Palauan locking loop drainage catheter was advanced over the wire, which was then removed. The catheter was secured to the skin with monofilament nylon suture and a sterile dressing was applied. The catheter was connected to a pleural evacuation device and placed on waterseal. Final CT image shows marked improvement in the right and left pneumothoraces, with appropriately positioned pleural drainage catheters. FINDINGS: Moderate bilateral pneumothoraces. IMPRESSION: Successful placement of bilateral anterior approach pleural drainage catheters under CT guidance. The catheters should remain to -20 cm water wall suction overnight. Further management at the discretion of the referring physician Dr. Crow. Signed by: Dr. Osmin Parker M.D. on 04/08/2020 4:56 PM
--- NOTE | 2020-04-08 18:13 | Progress Note ---
DATE: Internal Medicine Progress Note SUBJECTIVE: The patient is on the ventilator. PHYSICAL EXAMINATION: HEART: Showed regular rhythm. Normal S1, S2 sound. LUNGS: Show decreased breath sounds at the bases, two pigtail catheters on the right as well as the pigtail catheter on the left and surgical chest tube on the left. ABDOMEN: Soft. There is a feeding tube in place. EXTREMITIES: Show 1+ edema. Left hemiparesis. LABORATORY DATA: Hemoglobin 9.1, white blood count 7.1, and platelet count 302,000. BUN and creatinine normal. Glucose 198. Two separate hernandez virus PCR are negative. Chest CT showed decrease in size of the left and right hydropneumothorax. There are two right and two left chest tubes in place, still extensive bilateral multifocal consolidation ground-glass airspace opacity. IMPRESSION: 1. Resolving bilateral hydropneumothorax. 2. Acute respiratory failure. 3. COVID-19 infection. 4. 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 5. DVT. 6. Sacral decubitus ulcer. 7. Moderate protein calorie malnutrition. 8. Anemia secondary to chronic blood loss. PLAN OF TREATMENT: Continue ventilator support. Continue with Tylenol 650 mg q.6 hours as needed for pain or fever, Lipitor 20 mg daily, D50 IV push as needed for hypoglycemia, Pepcid 20 mg twice a day, fentanyl drip p.r.n. for sedation, Lasix at beginning 40 mg IV one time, labetalol 5 mg IV q.6 hours as needed hypertension, diazepam 1 mg IV q.2 hours as needed for agitation, metoprolol 25 mg twice a day, mupirocin to the tracheostoma site twice a day. The patient is going to be transferred to [facility]. The chest tube was removed. MD PB Julian/FREDY /[id number]
[2020-04-08] MEDS: ATORVASTATIN 20 MG TAB PO SCH (20:16)
[2020-04-09] VITALS (25 sets, daily range): BP systolic 136–171; BP diastolic 67–107
[2020-04-09] MEDS: LORAZEPAM INJ 2 MG/ML VIAL IV PRN (02:47)
[2020-04-09 04:20] LABS: BASOPHILS % 0.1 % (0.0-1.0); EOSINOPHILS # (AUTO) 0.2 (0.0-0.4); EOSINOPHILS % 2.7 % (0.0-6.0); HEMATOCRIT 27.5 % (38.2-49.6); HEMOGLOBIN 8.5 g/dL (14.0-18.0); LYMPHOCYTES # (AUTO) 1.1 (1.0-3.2); LYMPHOCYTES % 15.3 % (18.0-39.1); MEAN CORPUSCULAR HEMOGLOBIN 25.3 pg (28-32); MEAN CORPUSCULAR HGB CONC 30.9 g/dL (31-35); MEAN CORPUSCULAR VOLUME 81.8 fL (81-99); MONOCYTES % 13.5 % (4.4-11.3); NEUTROPHILS % 67.9 % (38.7-80.0); PLATELET COUNT 267 x10e3/uL (140-360); RED BLOOD COUNT 3.36 x10e6/uL (4.3-5.7); RED CELL DISTRIBUTION WIDTH 16.5 % (11.7-14.4)
[2020-04-09 04:39] LABS: ALANINE AMINOTRANSFERASE 20 IU/L (0-55); ALBUMIN 2.3 g/dL (3.5-5.0); ALBUMIN/GLOBULIN RATIO 0.5 (0.8-2.0); ALKALINE PHOSPHATASE 186 IU/L (40-150); ANION GAP 12.3 mmol/L (8-16); BLOOD UREA NITROGEN 31 mg/dL (7-26); BUN/CREATININE RATIO 33 (6-25); CALCIUM 8.7 mg/dL (8.4-10.2); CARBON DIOXIDE 34 mmol/L (22-29); CHLORIDE 94 mmol/L (98-107); CREATININE, SERUM 0.93 mg/dL (0.72-1.25); EST GLOMERULAR FILTRATION RATE > 60 ML/MIN (60-); GLUCOSE 173 mg/dL (74-118); POTASSIUM 4.3 mmol/L (3.5-5.1); SODIUM 136 mmol/L (136-145)
[2020-04-09] MEDS: FENTANYL 2,000 MCG/250 ML BAG IV PRN ×2 (06:38→16:32)
[2020-04-09] MEDS: LABETALOL HCL 5 MG/ML 20ML VIAL IV PRN (07:39)
[2020-04-09] MEDS: MUPIROCIN 2% OINT 22 GM TUBE TOP SCH ×2 (07:39→16:32)
[2020-04-09] MEDS: FAMOTIDINE 20 MG/2 ML VIAL IV SCH ×2 (07:39→16:32)
--- NOTE | 2020-04-09 07:43 | NUR ---
0730 CPAP WEANING TRIAL STARTED Addendum: 04/09/20 at 1333 by Janelle Elias RN patient tolerated CPAP x 6 hrs
[2020-04-09] MEDS: METOPROLOL TARTRATE 25 MG TAB PO SCH ×2 (09:36→16:32)
--- NOTE | 2020-04-09 11:11 | Progress Note ---
DATE: SUBJECTIVE: The patient has been on a spontaneous breathing trial now for an hour and he is tolerating it well. He still has four chest tubes in place. There is a small air leak from the most recent chest tube on the right side. There was a small amount of fluid drainage from the most recent chest tube on the right. PHYSICAL EXAMINATION: VITAL SIGNS: Blood pressure is 165/98, saturation is 94%. He is on a spontaneous breathing trial. Tracheostomy site is healing. CARDIAC: Reveals regular rate and rhythm with normal S1 and S2. LUNGS: Auscultation of lungs reveals decreased breath sounds at bases. There is no wheezing. ABDOMEN: Soft, nontender. There is no rebound or guarding. EXTREMITIES: Show no leg edema or calf tenderness. LABORATORY DATA: White blood cell count is 7.4 and hemoglobin is 8.5. The platelet count is 267. BUN to creatinine ratio is 31 to 0.93. IMPRESSION: 1. Acute respiratory failure. 2. Bilateral hydropneumothoraces. 3. Cerebrovascular accident with left hemiparesis. 4. Deep vein thrombosis. 5. Sacral decubitus ulcer. 6. Moderate protein-calorie malnutrition. 7. Anemia. PLAN: 1. Continue spontaneous breathing trial as tolerated. 2. Continue enteral feedings. 3. Continue heparin. 4. Wound care. 5. Physical therapy. Severiano Crow MD [facility]/MODL /[id number]
--- NOTE | 2020-04-09 11:30 | NUR ---
s: no acute neurological changes increasingly more responsive 111 98.8 140/94 awake, follows commands, lethargic pupils reactive, mild ptosis left eye no nuchal rigidity eomi, no dysconjugacy rrr - tachy vent dependant abd soft moves rue 4/5 lue 2/5 at elbow able to cock-up wrist lle 2+/5 rle 3/5 reflexes diminished throughout no ataxia sensory grossly intact but exam is limited a/p left hemiparesis - repeat CT, patient is calm and able to tolerate CT brain EEG is pending no aed possible CVA associated w/ covid hypercoagulability vs critical care myopathy myogolin pending carotid duplex pending pt ot rehab for left hemiparesis. likely small ischemic vs hypoxemic injury not notable on CT
--- NOTE | 2020-04-09 11:38 | NUR ---
0800 PLACED PATIENT IN CHAIR POSITION SETTING ON BED. TOLERATING WELL. PATIENT CONTINUING ON CPAP TRIAL SINCE 07
--- NOTE | 2020-04-09 13:42 | Progress Note ---
DATE: Internal Medicine Progress Note SUBJECTIVE: The patient is still on the ventilator, tolerating CPAP for 3 hours so far. PHYSICAL EXAMINATION: VITAL SIGNS: The blood pressure is 158/79, temperature 98.6, heart rate 109 per minute, respiratory rate 22 per minute, and pulse oximeter 95%. EXTREMITIES: Show edema in both lower extremities. LABORATORY DATA: On the BMP; sodium 136, potassium 4.3, chloride 94, CO2 34, BUN 31, creatinine 0.93, and glucose 173. On the CBC; white blood count 7.39, hemoglobin 8.5, hematocrit 27.5, and platelet count 267,000. COVID-19 not detected 3 times already since March 31, April 01, and April 05. Blood culture, no growth for 5 days. Urine culture, no growth for 36 to [address] show interval decrease in size in the right and left hydropneumothorax, 2 right and 2 left chest tubes in place as above. Unchanged extensive bilateral multifocal consolidative and ground-glass airspace opacities. FINAL IMPRESSION: 1. Acute respiratory failure secondary to bilateral pneumonia secondary to COVID-19. 2. Bilateral hydropneumothorax. 3. COVID-19 infection. 4. Cerebrovascular accident with left hemiparesis. 5. Deep venous thrombosis. 6. Acute renal failure. PLAN OF TREATMENT: Continue with ventilator support and wean as tolerated. He is tolerating CPAP so far. The patient is also on Tylenol 650 mg q.6 hours as needed for pain or fever, Lipitor 20 mg daily, Pepcid 20 mg IV twice a day, fentanyl for sedation, labetalol 5 mg IV as needed for hypertension, lorazepam 1 mg IV q.2 hours as needed for agitation, and metoprolol 25 mg twice a day. Discussed with the nurse at bedside. MD PB Julian/FREDY /[id number]
--- NOTE | 2020-04-09 16:27 | Progress Note ---
DATE: SUBJECTIVE: Mr. Love currently remains in intensive care unit. Sedated. PHYSICAL EXAMINATION: VITAL SIGNS: Stable. Blood pressure 160/80, heart rate 98, respiration of 22. HEENT: Normocephalic. NECK: Supple. CHEST: Crackles bilateral. HEART: S1 and S2. No S3, S4, or murmurs. ABDOMEN: Soft. IMPRESSION: 1. Acute respiratory failure. 2. COVID-19 of admission. 3. Bilateral pneumothorax. 4. Cerebrovascular accident with left hemiparesis. 5. Deep vein thrombosis from acute renal failure. Overall, clinically better. Continue with anticoagulation. Continue with supportive care. He is currently off antibiotic. We will follow. MD HARVEY Alexis/MODL /[id number]
--- NOTE | 2020-04-09 17:00 | NUR ---
OKAY TO INCREASE FENTANYL DRIP FOR PAIN PER DR CABRAL
[2020-04-09] MEDS ORDERED: INSULIN REGULAR, HUMAN 3ML VL 300 UNIT in SODIUM CHLORIDE 0.45% 100 ML 300 ML IV SCH ×2 (17:30)
--- NOTE | 2020-04-09 17:35 | NUR ---
BRAIN CT #3 TO BE DONE WHEN CHEST CT REPEATED. HOLD OFF ON REPEATING BRAIN CT FOR NOW PER DR CABRAL.
[2020-04-09] MEDS: ATORVASTATIN 20 MG TAB PO SCH (21:00)
[2020-04-10] VITALS (15 sets, daily range): BP systolic 139–181; BP diastolic 69–105
[2020-04-10] MEDS: FENTANYL 2,000 MCG/250 ML BAG IV PRN ×3 (02:16→22:26)
[2020-04-10] MEDS: LORAZEPAM INJ 2 MG/ML VIAL IV PRN ×4 (02:30→23:26)
[2020-04-10 05:39] LABS: BASOPHILS % 0.2 % (0.0-1.0); EOSINOPHILS # (AUTO) 0.2 (0.0-0.4); EOSINOPHILS % 3.5 % (0.0-6.0); HEMATOCRIT 25.2 % (38.2-49.6); HEMOGLOBIN 7.7 g/dL (14.0-18.0); LYMPHOCYTES # (AUTO) 1.1 (1.0-3.2); MEAN CORPUSCULAR HEMOGLOBIN 24.8 pg (28-32); MEAN CORPUSCULAR HGB CONC 30.6 g/dL (31-35); MEAN CORPUSCULAR VOLUME 81.3 fL (81-99); MONOCYTES # (AUTO) 0.8 (0.2-0.8); MONOCYTES % 13.2 % (4.4-11.3); NEUTROPHILS # (AUTO) 3.6 (2.1-6.9); NEUTROPHILS % 63.6 % (38.7-80.0); PLATELET COUNT 305 x10e3/uL (140-360); RED CELL DISTRIBUTION WIDTH 16.7 % (11.7-14.4)
[2020-04-10 05:58] LABS: ALANINE AMINOTRANSFERASE 20 IU/L (0-55); ALBUMIN/GLOBULIN RATIO 0.4 (0.8-2.0); ALKALINE PHOSPHATASE 194 IU/L (40-150); ANION GAP 13.2 mmol/L (8-16); BLOOD UREA NITROGEN 40 mg/dL (7-26); BUN/CREATININE RATIO 43 (6-25); CALCIUM 8.5 mg/dL (8.4-10.2); CARBON DIOXIDE 33 mmol/L (22-29); CHLORIDE 94 mmol/L (98-107); CREATININE, SERUM 0.92 mg/dL (0.72-1.25); EST GLOMERULAR FILTRATION RATE > 60 ML/MIN (60-); GLUCOSE 136 mg/dL (74-118); POTASSIUM 4.2 mmol/L (3.5-5.1); SODIUM 136 mmol/L (136-145)
[2020-04-10] MEDS ORDERED: BISACODYL 10 MG SUPP PR ONE (08:55)
[2020-04-10] MEDS ORDERED: DEXTROSE 50% SYRINGE 50 ML IV PRN (09:15)
[2020-04-10] MEDS: METOPROLOL TARTRATE 25 MG TAB PO SCH ×2 (09:19→17:03)
[2020-04-10] MEDS: MUPIROCIN 2% OINT 22 GM TUBE TOP SCH ×2 (09:24→17:03)
[2020-04-10 09:29] LABS: CHOL/HDL RATIO 9.3 (3.9-4.7)
--- NOTE | 2020-04-10 09:54 | Discharge Summary ---
ADMITTING DIAGNOSES: 1. Sepsis secondary to bilateral pneumonia. 2. Leukopenia, likely secondary to sepsis. 3. Uncontrolled type 2 diabetes mellitus. 4. Acute renal insufficiency, likely secondary to acute tubular necrosis. 5. Viral syndrome. DISCHARGE DIAGNOSES: 1. Acute hypoxic respiratory failure secondary to bilateral COVID-19 pneumonia, resolving. 2. Bilateral COVID-19 viral pneumonia, resolved. 3. Chronic respiratory failure (ventilator-dependent). 4. Type 2 diabetes mellitus. 5. Right lower extremity deep venous thrombosis. 6. Anemia secondary to chronic disease and gastrointestinal bleeding. 7. Hypertensive heart disease. 8. Mild obesity, BMI 32. 9. Acute renal insufficiency secondary to acute tubular necrosis, resolved. 10. Left hemiparesis, likely secondary to anoxic brain injury. 11. Status post cardiopulmonary arrest secondary to profound hypoxia, resolved. 12. Sepsis secondary to bilateral pneumonia, resolved. 13. Leukopenia secondary to sepsis, resolved. 14. Bilateral loculated pneumothoraces requiring bilateral tube thoracostomies. 15. Unstageable sacral decubitus ulcer.. 16. Status post tracheostomy tube placement twice. 17. Status post G-tube placement. HOSPITAL COURSE: This is a 35-year-old man, who had underlying known medical history of uncontrolled type 2 diabetes mellitus. Initially presented to [facility] with viral syndrome type symptoms. He was initially admitted with a diagnosis of sepsis secondary to bilateral pneumonia as well as leukopenia secondary to sepsis. On admission, he was diagnosed with acute renal insufficiency, likely secondary to acute tubular necrosis. It was thought that on admission he had viral syndrome. During his hospitalization, he was found to be COVID-19 positive. He developed acute hypoxic respiratory failure secondary to bilateral COVID-19 pneumonia, necessitating endotracheal intubation. The patient was intubated for at least 4 weeks when the decision was made to proceed with elective tracheostomy tube placement. Also, during hospitalization, the patient had a G- tube placed. The patient was checked numerous times for his COVID-19 status and he continued to be positive, however, he finally had 2 consecutive negative tests on April 02 and April 05, 2020, respectively. During hospitalization, the patient unfortunately developed bilateral pneumothoraces that were found to be loculated on the CT of the chest. The patient had tube thoracostomies placed bilaterally because of these likely pneumothoraces. During this hospitalization, namely March 27, 2020, the patient had an episode of cardiopulmonary arrest secondary to severe hypoxia. Chest compressions were initiated and he was actually intubated endotracheally during this full ACLS code. Later, the patient had his tracheostomy tube replaced by the same surgeon, who placed initially, namely Dr. Osmin Jackson. Also, Dr. Pablo Rodriguez, the wide load escort placed the G-tube. During this hospital stay, the patient was seen by Infectious Disease specialist, Dr. Hillman. Moreover, the patient was managed daily by the metal washing machine operator, namely Dr. Severiano Crow, who placed the bilateral tube thoracostomies because of the patient's bilateral loculated pneumothoraces. The patient recovered after his cardiopulmonary arrest. Unfortunately, he was found to have left hemiparesis. It was felt that his left hemiparesis could be secondary to anoxic brain injury. The patient, however, was following simple commands before being discharged from this hospital. The patient also developed an unstageable sacral decubitus ulcer during this hospitalization. He did receive wound care to the sacral wound by nursing staff. The patient received intravenous heparin during this hospitalization because of his right lower extremity deep venous thrombosis. Unfortunately, it had to be stopped on April 08, 2020, because he had acute anemia necessitating transfusion of 2 units packed red blood cells. On day of transfer, the patient's hemoglobin was 7.7 g/dL. Hemoccult stool was ordered. The patient was also started on famotidine 40 mg intravenous twice a day. The patient was on a regular insulin intravenous drip for glucose control but will be transitioned to Lantus 20 units q 12 hours. He continued to be sedated with intravenous lorazepam as needed as well as fentanyl. The decision was made to transfer the patient to a long-term acute care facility namely [facility] in [place], [place]. CONDITION ON DISCHARGE: Stable with an overall fair prognosis. DISCHARGE MEDICATIONS: 1. Lorazepam 1 mg every 2 hours as needed for agitation. 2. Fentanyl citrate intravenous as needed for sedation. 3. Metoprolol tartrate 25 mg b.i.d. 4. Famotidine 40 mg intravenous twice a day. 5. Mupirocin 2% ointment apply to tracheostomy stoma site twice a day. 6. Lantus insulin 20 units subcutaneous every 12 hours. 7. Acetaminophen 650 mg every 6 hours as needed for fever greater than 99.5. FOLLOWUP INSTRUCTIONS: As previous stated, the patient will transfer to a local long-term acute care facility [facility] in [place], [place]. The patient will be under the care of Dr. Mukund Rodriguez at this hospital. The bilateral tube thoracostomies will be managed at the long-term acute care facility by a hog worker. MD OLVIN Blackburn/FREDY /[id number] cc: MD Osmin Ramos MD Zaher Shebib, MD Maurice S Haddad, MD MTDD
[2020-04-10] MEDS ORDERED: INSULIN GLARGINE 100 UNITS/ML VIAL SQ ONE (10:55)
[2020-04-10] MEDS: INSULIN LISPRO 100 UNIT/1 ML 3ML VIAL SQ SCH ×3 (11:19→21:00)
--- NOTE | 2020-04-10 11:19 | NUR ---
Dictated Discharge summary: [id number]
--- NOTE | 2020-04-10 11:27 | NUR ---
Sepsis secondary to bilateral pneumonia. 2. Leukopenia, likely secondary to sepsis. 3. Uncontrolled type 2 diabetes mellitus. 4. Acute renal insufficiency, likely secondary to acute tubular necrosis. 5. Viral syndrome. DISCHARGE DIAGNOSES: 1. Acute hypoxic respiratory failure secondary to bilateral COVID-19 pneumonia, resolving. 2. Bilateral COVID-19 viral pneumonia, resolved. 3. Chronic respiratory failure (ventilator-dependent). 4. Type 2 diabetes mellitus. 5. Right lower extremity deep venous thrombosis. 6. Anemia secondary to chronic disease and gastrointestinal bleeding. 7. Hypertensive heart disease. 8. Mild obesity, BMI 32. 9. Acute renal insufficiency secondary to acute tubular necrosis, resolved. 10. Left hemiparesis, likely secondary to anoxic brain injury. 11. Status post cardiopulmonary arrest secondary to profound hypoxia, resolved. 12. Sepsis secondary to bilateral pneumonia, resolved. 13. Leukopenia secondary to sepsis, resolved. 14. Bilateral loculated pneumothoraces requiring bilateral tube thoracostomies. 15. Unstageable sacral decubitus ulcer.. 16. Status post tracheostomy tube placement twice. 17. Status post G-tube placement. HOSPITAL COURSE: This is a 35-year-old man, who had underlying known medical history of uncontrolled type 2 diabetes mellitus. Initially presented to [facility] with viral syndrome type symptoms. He was initially admitted with a diagnosis of sepsis secondary to bilateral pneumonia as well as leukopenia secondary to sepsis. On admission, he was diagnosed with acute renal insufficiency, likely secondary to acute tubular necrosis. It was thought that on admission he had viral syndrome. During his hospitalization, he was found to be COVID-19 positive. He developed acute hypoxic respiratory failure secondary to bilateral COVID-19 pneumonia, necessitating endotracheal intubation. The patient was intubated for at least 4 weeks when the decision was made to proceed with elective tracheostomy tube placement. Also, during hospitalization, the patient had a G-tube placed. The patient was checked numerous times for his COVID-19 status and he continued to be positive, however, he finally had 2 consecutive negative tests on April 02 and April 05, 2020, respectively. During hospitalization, the patient unfortunately developed bilateral pneumothoraces that were found to be loculated on the CT of the chest. The patient had tube thoracostomies placed bilaterally because of these likely pneumothoraces. During this hospitalization, namely March 27, 2020, the patient had an episode of cardiopulmonary arrest secondary to severe hypoxia. Chest compressions were initiated and he was actually intubated endotracheally during this full ACLS code. Later, the patient had his tracheostomy tube replaced by the same surgeon, who placed initially, namely Dr. Osmin Jackson. Also, Dr. Pablo Rodriguez, the editor in chief newspaper placed the G-tube. During this hospital stay, the patient was seen by Infectious Disease specialist, Dr. Hillman. Moreover, the patient was managed daily by the director music, namely Dr. Severiano Crow, who placed the bilateral tube thoracostomies because of the patient's bilateral loculated pneumothoraces. The patient recovered after his cardiopulmonary arrest. Unfortunately, he was found to have left hemiparesis. It was felt that his left hemiparesis could be secondary to anoxic brain injury. The patient, however, was following simple commands before being discharged from this hospital. The patient also developed an unstageable sacral decubitus ulcer during this hospitalization. He did receive wound care to the sacral wound by nursing staff. The patient received intravenous heparin during this hospitalization because of his right lower extremity deep venous thrombosis. Unfortunately, it had to be stopped on April 08, 2020, because he had acute anemia necessitating transfusion of 2 units packed red blood cells. On day of transfer, the patient's hemoglobin was 7.7 g/dL. Hemoccult stool was ordered. The patient was also started on famotidine 40 mg intravenous twice a day. The patient was on a regular insulin intravenous drip for glucose control but will be transitioned to Lantus 20 units q 12 hours. He continued to be sedated with intravenous lorazepam as needed as well as fentanyl. The decision was made to transfer the patient to a long-term acute care facility namely [facility] in [place], [place]. CONDITION ON DISCHARGE: Stable with an overall fair prognosis. DISCHARGE MEDICATIONS: 1. Lorazepam 1 mg every 2 hours as needed for agitation. 2. Fentanyl citrate intravenous as needed for sedation. 3. Metoprolol tartrate 25 mg b.i.d. 4. Famotidine 40 mg intravenous twice a day. 5. Mupirocin 2% ointment apply to tracheostomy stoma site twice a day. 6. Lantus insulin 20 units subcutaneous every 12 hours. 7. Acetaminophen 650 mg every 6 hours as needed for fever greater than 99.5. [id number]
--- NOTE | 2020-04-10 11:54 | Progress Note ---
DATE: 04/10/2020 CHIEF COMPLAINT/HISTORY OF PRESENT ILLNESS: A 35-year-old man, whose primary treating diagnosis is acute hypoxic respiratory failure secondary to bilateral COVID-19 pneumonia. The patient is no longer testing positive for COVID-19 infection. The patient has a tracheostomy tube in place and is still ventilator-dependent. The patient still has bilateral chest tubes in place. Blood work today revealed hemoglobin 7.7 g/dL. On April 07, 2020, the patient was found to have a hemoglobin of 6.9 g/dL. Thus, he was transfused 2 units packed red blood cells. Intravenous heparin was also stopped because of his acute anemia. Today's blood work revealed potassium 4.2. The patient's BUN and creatinine are 40 and 0.92 respectively. The patient's glucose seems to be controlled with intravenous regular insulin. The patient has bilateral chest tube thoracostomies in place because of persistent bilateral loculated pneumothoraces. According to staff, the patient still cannot move the left side of his body. REVIEW OF SYSTEMS: As per HPI. PHYSICAL EXAMINATION: GENERAL: He is awake and alert. He follows simple commands. VITAL SIGNS: Blood pressure is 154/80, pulse 104, respiratory rate is 22, and oxygen saturation 99% on FiO2 of 30%. He is on ventilator AC mode. Temperature 99.3. BMI 32, height 5 feet 11 inches, weight is 235 pounds. INTEGUMENT: Skin is warm and dry. Slight pallor. No jaundice or diaphoresis. The patient has a 6 x 6 cm unstageable sacral decubitus ulcer, which has eschar covered center area. The periphery does have some granulation tissue. HEENT: Anterior sclerae with moist mucous membranes. NECK: Supple. He has a tracheostomy tube in place, connected to ventilator. CARDIOVASCULAR: Tachycardic rate and rhythm. LUNGS: Crackles bilaterally. The patient has bilateral tube thoracostomies. ABDOMEN: Soft. Normal bowel sounds. He has G-tube in place, which is functional. EXTREMITIES: No edema or deformity. NEUROLOGIC: He does not move the left side as freely as the right. He does follow simple commands. DIAGNOSES: 1. Respiratory failure secondary to previous bilateral COVID-19 pneumonia. 2. COVID-19 and viral infection, resolved. 3. Ventilator-dependent. 4. Chronic respiratory failure (ventilator dependent). 5. Type 2 diabetes mellitus. 6. Right lower extremity deep venous thrombosis. 7. Xmcbq-[id number] anemia likely secondary to gastrointestinal bleeding. 8. Hypertensive heart disease. 9. Mild obesity, BMI 32. 10. Left hemiparesis, likely secondary to anoxic brain injury. 11. Status post cardiopulmonary arrest (March 27, 2020) secondary to profound hypoxia, resolved. 12. Bilateral loculated pneumothoraces required tube thoracostomy. 13. Unstageable sacral decubitus ulcer. 14. Status post tracheostomy tube placement twice. 15. Status post G-tube placement. PLAN: 1. Repeat CT of the chest today to assess the loculated pneumothoraces bilaterally. 2. Order CT of the head since the patient still has persistent left-sided hemiparesis. 3. We will transfer to long-term acute care facility [facility] in [place], [place] today. 4. We will not restart intravenous heparin since the patient has [id number]-[id number] anemia, likely secondary to gastrointestinal bleeding. 5. We will order hemoccult stool. 6. We will increase famotidine from 20 mg intravenous twice a day to 40 mg intravenous twice a day. 7. Follow hemoglobin and hematocrit. 8. Stop atorvastatin. 9. Stop intravenous regular insulin infusion. 10. Start Lantus insulin 20 units subcutaneous twice a day for glucose control. 11. Continue tube feeds for nutritional optimization. 12. Continue wound care to the patient's sacral decubitus ulcer. 13. We will proceed with occupational and physical therapy at the long-term acute care facility. I spent 40 minutes in the care of this intensive care unit patient. MD OLVIN Blackburn/FREDY /[id number]
--- NOTE | 2020-04-10 12:15 | Progress Note ---
DATE: SUBJECTIVE: Mr. Love remains on the ventilator with chest tubes in and the plan for [facility]. PHYSICAL EXAMINATION: GENERAL: He is alert, slow to react. VITAL SIGNS: Stable, afebrile. HEENT: He is not icteric. NECK: Supple. CHEST: Few crackles. HEART: S1 and S2. ABDOMEN: Soft. IMPRESSION: Acute respiratory failure, acute coronavirus 19 with deep venous thrombosis, status post trach, status post anoxic brain injury, status post bilateral pneumothorax, diabetes mellitus, morbidly obese patient, and hypertension. Please refer to discharge summary from Dr. Chau, very good note. We will follow. MD HARVEY Alexis/MODL /[id number]
[2020-04-10] MEDS ORDERED: HEPARIN 25,000 UNIT 1,500 UNIT in DEXTROSE 5% 250ML 250 ML IV SCH (13:45)
--- NOTE | 2020-04-10 13:58 | Diagnostic Imaging Report ---
CT BRAIN WO HISTORY: Hypoxemia, hyperglycemia COMPARISON: Head CT 04/07/2020 TECHNIQUE: Noncontrast axial scans were obtained from skull base to the vertex. Coronal and sagittal reconstructions obtained from the axial data. One or more of the following dose reduction techniques were used: Automated exposure control, adjustment of the mA and/or kV according to patient size, and/or utilization of iterative reconstruction technique. Beam hardening artifacts obscure some details. DISCUSSION: Scalp/Skull: Unremarkable. Brain sulci: Appropriate for patient's age. Ventricles: Normal in size and configuration. No hydrocephalus. Extra-axial spaces: No masses or fluid collections. Parenchyma: No abnormal densities. No mass, hemorrhage, or large vascular territory acute infarct. Dural sinuses: No abnormal densities. Sellar/Suprasellar region: Intact. Skull base: Intact. Incidental findings: Small bilateral mastoid effusions are present. IMPRESSION: No acute intracranial abnormalities. Signed by: Dr. Mendez Ashley M.D. on 04/10/2020 1:54 PM
[2020-04-10] MEDS ORDERED: HEPARIN 25,000 UNIT DRIP IV ONE (14:25)
--- NOTE | 2020-04-10 14:35 | Diagnostic Imaging Report ---
CT of the chest, without contrast, 04/10/2020. History: Bilateral loculated pneumothoraces. Comparison: 04/07/2020. Technique: Multidetector CT scanning of the chest was performed from the level of the apices to the upper abdomen without contrast. Coronal and sagittal multiplanar reformations were obtained. RADIATION DOSE: Total DLP: 501 mGy*cm Dose modulation, iterative reconstruction, and/or weight based adjustment of the mA/kV was utilized to reduce the radiation dose to as low as reasonably achievable. Discussion: Evaluation is limited without IV contrast. Chest: The heart, aorta, and pulmonary vessels are stable. Mediastinal adenopathy is unchanged. Left medial surgical chest tube, left anterior pigtail catheter, right anterior pigtail catheter, and right lateral pigtail catheter are unchanged in position. Small medial left pneumothorax is unchanged. Multiple right-sided loculated pneumothoraces are present, all slightly increased in size, especially at the right lung base anteriorly with a pocket measuring up to 5.6 cm in depth. Diffuse bilateral patchy consolidation and ground glass opacities are without significant change. Small bilateral pleural effusions are again noted. Limited evaluation of the upper abdomen shows normal adrenal glands. Bones and soft tissues: No acute abnormality. IMPRESSION: Slight increase in size of multiple loculated right sided pneumothoraces. Bilateral chest tubes are unchanged in position. Bilateral pulmonary opacities are unchanged. Signed by: Augustine Don on 04/10/2020 2:32 PM
--- NOTE | 2020-04-10 14:46 | Progress Note ---
DATE: 04/10/2020 REASON FOR PROGRESS NOTE: Dyspnea and respiratory insufficiency, history COVID-19. SUBJECTIVE: Lying flat in bed. Alert and responsive. No real events over the weekend. PHYSICAL EXAMINATION: CARDIAC: Shows a regular rate and rhythm. Normal S1, S2. LUNGS: Bilateral crackles. NECK: Supple, nontender. HEENT: Normocephalic, atraumatic. EOMI. ABDOMEN: Soft, benign. Good bowel sounds. EXTREMITIES: No cyanosis, clubbing, or edema. CHEST: Chest tubes are in place. No air leaks present in any of the chest tubes. IMAGING: No chest x-ray over the weekend. CT scan of the chest is pending for today. LABORATORY DATA: White count 5.69. Hemoglobin 7.7, hematocrit 25.2, platelet count 305,000. INR 0.99. Sodium 136, potassium 4.2, BUN 40 with creatinine 0.92. IMPRESSION AND PLAN: 1. Respiratory failure. Chest CT scan planned for today to follow up on loculated pneumothorax. Chest tubes are in place and draining appropriately. 2. Recovering from renal failure and stroke. MD JESSIE Williamson/MODL /[id number]
[2020-04-10 14:51] LABS: INR 0.97; PROTHROMBIN TIME 13.5 seconds (11.9-14.5)
--- NOTE | 2020-04-10 15:53 | NUR ---
CALL RECEIVED FROM KAYDEN IN ICU STATING PT TO DC TODAY TO [facility]. CALL TO DENILSON ARANGO. STATES OUR FABRICATION SUPERVISOR WILL NEED TO EMAIL [facility] FOR BAN. EMAIL SENT REGARDING BAN. RECEIVED CALL FROM CFO SARAH. STATES HE WILL REACH OUT TO [facility]. UPDATED CLINICALS FAXED TO [facility] @ [phone].
--- NOTE | 2020-04-10 16:27 | Progress Note ---
DATE: SUBJECTIVE: The patient went for CT scan of the chest and head today. CT scan shows a slight increase in the size of the loculated pneumothoraces on the right. CT of the head shows no acute cranial abnormalities. The patient remains on fentanyl. PHYSICAL EXAMINATION: VITAL SIGNS: The patient is afebrile. The blood pressure is 138/87 and saturation is 99%. HEENT: Shows no facial swelling or erythema. CARDIAC: Reveals regular rate and rhythm with normal S1 and S2. LUNGS: Auscultation of lungs reveals decreased breath sounds at the bases. There is no wheezing. ABDOMEN: Soft and nontender. There is a feeding tube in place. EXTREMITIES: Shows no leg edema or calf tenderness. There is some left hemiparesis. LABORATORY DATA: Hemoglobin is 7.7 and other electrolytes are within normal limits. The BUN to creatinine ratio is 40 to 0.92. IMPRESSION: 1. Loculated pneumothoraces, mostly on the right side. 2. Acute respiratory failure. 3. COVID-19 infection. 4. Acute stroke with left hemiparesis. 5. Anemia secondary to chronic blood loss. 6. Decubitus ulcer. 7. Deep vein thrombosis. PLAN: 1. Discussed case with CT Surgery. Appears the lung is trapped and may require surgical treatment. 2. Continue spontaneous breathing trials as tolerated. 3. Restart heparin. 4. Continue enteral feedings. Severiano Crow MD [facility]/MODL /[id number]
[2020-04-10] MEDS: FAMOTIDINE 20 MG/2 ML VIAL IV SCH (17:02)
--- NOTE | 2020-04-10 17:18 | NUR ---
CALL RECEIVED CFO KVNG. STATES HE WILL F/U [facility] IN THE AM ON TRANSFER TO [facility]. WILL F/U IN AM. NOTIFIED DARRON MONIQUE IN ICU.
[2020-04-10] MEDS: INSULIN GLARGINE 100 UNITS/ML VIAL SQ SCH (21:00)
[2020-04-10] MEDS: ENOXAPARIN INJ 80 MG/0.8 ML SYR SC SCH (21:00)
[2020-04-11] VITALS (26 sets, daily range): BP systolic 118–191; BP diastolic 64–101
[2020-04-11] MEDS: LORAZEPAM INJ 2 MG/ML VIAL IV PRN ×2 (02:30→14:36)
[2020-04-11 05:27] LABS: BASOPHILS % 0.1 % (0.0-1.0); EOSINOPHILS # (AUTO) 0.1 (0.0-0.4); EOSINOPHILS % 1.8 % (0.0-6.0); HEMATOCRIT 24.6 % (38.2-49.6); HEMOGLOBIN 7.5 g/dL (14.0-18.0); LYMPHOCYTES # (AUTO) 1.2 (1.0-3.2); LYMPHOCYTES % 16.3 % (18.0-39.1); MEAN CORPUSCULAR HEMOGLOBIN 24.8 pg (28-32); MEAN CORPUSCULAR HGB CONC 30.5 g/dL (31-35); MEAN CORPUSCULAR VOLUME 81.5 fL (81-99); MONOCYTES # (AUTO) 0.9 (0.2-0.8); MONOCYTES % 13.2 % (4.4-11.3); NEUTROPHILS # (AUTO) 4.8 (2.1-6.9); NEUTROPHILS % 68.2 % (38.7-80.0); PLATELET COUNT 298 x10e3/uL (140-360); RED BLOOD COUNT 3.02 x10e6/uL (4.3-5.7); RED CELL DISTRIBUTION WIDTH 16.9 % (11.7-14.4)
[2020-04-11 05:53] LABS: ALANINE AMINOTRANSFERASE 19 IU/L (0-55); ALBUMIN 1.9 g/dL (3.5-5.0); ALBUMIN/GLOBULIN RATIO 0.4 (0.8-2.0); ALKALINE PHOSPHATASE 159 IU/L (40-150); ANION GAP 11.3 mmol/L (8-16); BLOOD UREA NITROGEN 45 mg/dL (7-26); BUN/CREATININE RATIO 49 (6-25); CALCIUM 8.3 mg/dL (8.4-10.2); CARBON DIOXIDE 33 mmol/L (22-29); CHLORIDE 96 mmol/L (98-107); CREATININE, SERUM 0.91 mg/dL (0.72-1.25); EST GLOMERULAR FILTRATION RATE > 60 ML/MIN (60-); GLUCOSE 179 mg/dL (74-118); POTASSIUM 4.3 mmol/L (3.5-5.1); SODIUM 136 mmol/L (136-145)
[2020-04-11] MEDS: FENTANYL 2,000 MCG/250 ML BAG IV PRN ×2 (07:21→17:14)
[2020-04-11] MEDS: LABETALOL HCL 5 MG/ML 20ML VIAL IV PRN (07:29)
[2020-04-11] MEDS: INSULIN LISPRO 100 UNIT/1 ML 3ML VIAL SQ SCH ×4 (08:18→21:00)
[2020-04-11] MEDS: INSULIN GLARGINE 100 UNITS/ML VIAL SQ SCH ×2 (08:20→21:00)
[2020-04-11] MEDS: FAMOTIDINE 20 MG/2 ML VIAL IV SCH ×2 (08:22→17:09)
[2020-04-11] MEDS: ENOXAPARIN INJ 80 MG/0.8 ML SYR SC SCH ×2 (08:23→21:03)
[2020-04-11] MEDS: MUPIROCIN 2% OINT 22 GM TUBE TOP SCH ×2 (08:25→17:09)
[2020-04-11] MEDS: METOPROLOL TARTRATE 25 MG TAB PO SCH ×3 (08:25→17:10)
[2020-04-11] MEDS ORDERED: SODIUM CHLORIDE 0.9% 1000ML 1,000 ML IV ONE (09:00)
[2020-04-11] MEDS ORDERED: LABETALOL HCL 5 MG/ML 20ML VIAL IV ONE (09:15)
--- NOTE | 2020-04-11 10:15 | Diagnostic Imaging Report ---
TECHNIQUE: Frontal view of the chest. INDICATION: ^resp failure ^[id number] ^[id number] COMPARISON: Chest CT prior day. IMPRESSION: Extremely poor technique. Lines and hardware: Stable. Heart and mediastinum: Stable. Lungs and pleura: Multifocal loculated pleural effusions with multifocal patchy airspace opacities. Small left pleural effusion. Left apical and known right loculated pneumothoraces. Soft tissues and bones: No acute abnormality. Signed by: Aguilar Mart MD on 04/11/2020 10:12 AM
--- NOTE | 2020-04-11 10:34 | NUR ---
CALL RECEIVED FROM DENILSON ARANGO. STATES HER PONY TRIMMER AND RAILWAY TRACK WORKER WILL CONFERENCE CALL W [facility] RAILWAY TRACK WORKER TODAY TO DISCUSS BAN. STATES PT HAS BEEN ACCEPTED. CM WILL CONT TO FOLLOW.
--- NOTE | 2020-04-11 11:03 | Progress Note ---
DATE: 04/11/2020 CHIEF COMPLAINT/HISTORY OF PRESENT ILLNESS: This is a 35-year-old man, whose primary treating diagnosis is chronic respiratory failure secondary to previous bilateral COVID-19 pneumonia. The patient's pneumonia seems to have resolved, but he continues to have bilateral pulmonary opacities. He continues to have diffuse bilateral patchy consolidations and ground-glass opacities that had not changed throughout his hospital stay. These findings were identified on a CT of the chest without contrast performed yesterday on April 10, 2020. This imaging study also revealed bilateral chest tubes, unchanged in position with multiple loculated right-sided pneumothoraces. The patient, however, is improving clinically. White blood cell count today is 7000 with 68% segmented neutrophils. Hemoglobin 7.5 g/dL. Hemoccult stool performed yesterday was negative. The patient's BUN and creatinine today is 45 and 0.91 respectively. According to the nursing staff, the patient's left upper extremity is significantly swollen today. The patient did undergo CT of the brain yesterday without contrast that did not reveal any acute intracranial abnormalities. The plan was to transfer the patient yesterday to a long-term acute care facility namely [facility] in [place], [place], but due to financial reasons related to his COVID negative status, this transfer was held. REVIEW OF SYSTEMS: As per HPI. PHYSICAL EXAMINATION: GENERAL: He is awake and alert. He follows commands. He shook my hand today. The patient unfortunately only move his left side, particularly his left upper extremity minimally. Does not appear to be in any distress. He is on a ventilator via tracheostomy tube. VITAL SIGNS: His oxygen saturation is 96% on FiO2 25%, heart rate is 100, blood pressure 166/92, respiratory rate 16, and temperature is 98.2 and also, on ventilator, he is on AC mode. INTEGUMENT: Skin is warm and dry. Slight pallor. No jaundice or diaphoresis. The patient has a 6 x 6 cm unstageable sacral decubitus ulcer that has central eschar covered area with surrounding granulation tissue. HEENT: Anicteric sclerae with moist mucous membranes. NECK: Supple. He has tracheostomy tube, which is connected to ventilator. CARDIOVASCULAR: Tachycardic rate with regular rhythm. He has S4 gallop. LUNGS: Crackles in the bilateral lung alvarado. He has bilateral tube thoracostomies in place. ABDOMEN: Soft. He has normal bowel sounds. He has G-tube in place, which is functional. EXTREMITIES: He has trace edema in bilateral lower legs. The patient has significant amount of edema in the left upper extremity. NEUROLOGIC: He shook my hand freely as I previously stated. Unfortunately, he can only minimally move his left hand. He also cannot move his left lower extremity. DIAGNOSES: 1. Chronic respiratory failure secondary to previous bilateral COVID-19 pneumonia. 2. Acute respiratory distress syndrome, resolving. 3. Ventilator-dependence. 4. Right lower extremity deep venous thrombosis. 5. Left upper extremity swelling, likely deep venous thrombosis. 6. Unstageable sacral decubitus ulcer. 7. Anemia secondary to chronic disease. 8. Type 2 diabetes mellitus. 9. Cardiopulmonary arrest secondary to profound hypoxia on March 27, 2020, resolved. 10. Left hemiparesis, likely secondary to anoxic brain injury. 11. Left-sided loculated pneumothoraces. PLAN: 1. Continue enoxaparin twice a day for the patient's right lower extremity deep venous thrombosis. Ordered venous Doppler ultrasound of left upper extremity to assess for deep venous thrombosis. 2. We will administer intravenous furosemide 80 mg to take this morning since the patient may be volume overloaded. 3. Discontinue intravenous fluids. 4. Increase Lantus insulin from 20 units twice a day to 30 units twice a day for better glucose control. 5. We will increase metoprolol tartrate from 25 mg twice a day to every 6 hours schedule for better blood pressure and heart rate control. 6. Nutritional support. 7. We will intensify the patient's physical therapy. 8. We will discuss with section chief and case management the plan in regard patient transferring to a long-term acute care facility. 9. Continue wound care to the patient's sacral decubitus ulcer. I spent 30 minutes in the care of this intensive care unit patient. MD OLVIN Blackburn/FREDY /[id number]
[2020-04-11] MEDS: FUROSEMIDE INJ 10 MG/ML 4 ML VIAL IV ONE ×2 (11:13→12:03)
--- NOTE | 2020-04-11 11:25 | NUR ---
progress note [id number]
[2020-04-11 12:01] LABS: ABG HCO3 39 mmol/L (22-26); ABG PCO2 72 mmHg (35-45); ABG PH 7.32 (7.35-7.45); ABG PO2 75 mmHg (80-105)
--- NOTE | 2020-04-11 14:47 | NUR ---
Nutrition Intervention Note RD Recommendation(s) for Physician: - Recommend continuing Vital High Protein and increasing goal rate to 70 mL/hr when pt is no longer on propofol (provides 1680 kcal, 147 g protein, and 1404 mL water per day). - Water flushes per MD. Plan of Care: RD following, monitoring for tolerance and adequacy. TF recs. Nutrition reason for involvement: follow up RD Assessment 04/11: Follow up. Pt continues to tolerate TF at goal rate of 70 ml/hr. Pt discussed with RN, pt had BMs this am. Chart reviewed, possible CT surgery and pending SNF. Continues to meet kcal and protein needs. Will continue to monitor. 04/07: Follow up. Pt is tolerating tube feeding at 60 mL/hr. Pt is no longer going to be receiving propofol per RN; therefore, recommend increasing tube feeding to 70 mL/hr. Informed RN of recommendation. Will continue to monitor. 04/04: Follow up. Pt discussed during am MDR. Pt remains on vent via trach, tolerating TF at goal rate of 60 ml/hr per RN. Pt continues on Propofol at 12 ml/hr. Recommend continue current TF goal rate, additional kcal provided from Propofol. Chart reviewed. Will continue to monitor. 03/31: Follow up. Per chart, pts trach was replaced yesterday. Pt is receiving propofol @ 12 mL/hr per RN which provides 317 kcal. Pt is tolerating Vital High Protein @ 45 mL/hr at this time. Recommend increasing rate towards goal rate as medically appropriate. Will continue to monitor 03/28: Follow up. Pt remains intubated and sedated, currently on Fentanyl drip and Propofol drop. Pt s/p cardiopulmonary arrest yesterday requiring CPR and subsequent bilateral chest tube placement. Pt now intubated and trach removed. TF remains off currently, noted last documented TF of 520 ml total received on 03/27. TF rec's provided when feasible to resume. Will continue to monitor. 03/24: Follow up. Pt remains intubated and sedated. Pt is currently receiving propofol @ 37.4 ml/hr per RN which provides 987 kcal. Per MD note, pt is planned to receive a trach and PEG today; therefore, tube feeding is on hold at this time. Will continue to monitor. 03/21: Follow up. Pt remains intubated and sedated, currently on Propofol and Versed. Pt off, CPAP trials, plan to resume TF per RN. Plan for trach placement tomorrow. Chart reviewed. Discussed TF rec's with RN on unit as pt not meeting protein needs and Propofol providing additional kcal. Will continue to monitor. 03/17: Follow up. Pt remains intubated and is sedated on propofol @ 21.8 mL/hr which provides 575 kcal. Pt is tolerating tube feeding and is receiving Nepro @ 40 mL/hr. Recommend modifying formula to Vital High Protein. Informed RN of recommendation. Will continue to monitor. 03/13: Follow up. Pt remains intubated and sedated, off Propofol and continues on Fentanyl drip. Pt continues on TF of Nepro at 40 ml/hr, no dialysis initiated and renal trend improving. TF meeting current estimated needs. Current rec's remain appropriate. Chart reviewed. Will continue to monitor. 03/08: Follow up. Pt remains intubated and sedated on Propofol and Fentanyl drips. No pressor support. Pt on TF of Nepro at 40 ml/hr. Renal trend noted, no dialysis currently. TF meeting estimated kcal and protein needs per current renal trend. TF rec's provided pending dialysis initiation and continued Propofol use. Chart reviewed. Will continue to monitor. 03/03: Follow up. Pt remains mechanically ventilated. Pt is receiving Glucerna 1.2 @ 40 ml/hr per chart. Pt is receiving 26.7 mL/hr of propofol which provides 705 kcal. Recommend modifying formula to Vital High Protein. Will continue to monitor. 02/28: Follow up. Pt remains intubated, sedated with Propofol and fentanyl drip. Pt not currently on pressors. TF currently off per am documentation, previously infusing at 20 ml/hr on 02/27 and 02/26- not meeting needs. Pt with increased water flushes per MD 2/2 hypernatremia. Chart reviewed. TF rec's relayed to RN. Will continue to monitor. 02/24: Follow up. Pt remains mechanically ventilated. Per RN, pt is tolerating tube feeding of Glucerna 1.2 @ 40 mL/hr. Recommend modifying formula to Vital High Protein. RD recommendation provided to nurse. Will continue to monitor. 02/20: 35 YOM admitted for hypoxemia, hyperglycemia with PMH listed below. Physical visit was deferred d/t hospitals infection disease policy. Pt is intubated on fentanyl and propofol. Pt is not on pressors as of now. The nurse reported the pt was ordered pressors over the weekend but has not needed it today. Nurse reported possible ARDS, they have not had to place the pt in the prone position yet. Pt was ordered Glucerna 1.2 at 20 ml/hr advance to goal rate of 60 ml/hr with 100 ml of water every 4 hours (1728 kcal, 86gram protein) . RD recommendations provided above and given to nurse. Unaware of propofol rate d/t not being able to enter the room and nurse not knowing at current time. Nurse reported the pt is currently on 20 ml/hr of Glucerna 1.2. Will continue to monitor. Principal Problems/Diagnoses: hypoxemia, hyperglycemia PMH: Uncontrolled type 2 diabetes mellitus. GI: last BM 04/11 per RN Skin: unstagable sacral PU Labs: 04/11: Na 136, K 4.3, BUN 45, Cr 0.91, Gluc 179, POC Gluc 182-206 04/07: Na 136, K 3.8, BUN 25, Cr 0.77, Glu 163 04/04: Na 135, K 3.7, BUN 25, Cr 1.04, Gluc 163, Ca 8.1 03/31: Na 144, K 3.4, BUN 21, Cr 0.84, Glu 119 03/28: Na 148, K 4, BUN 27, Cr 0.88, Gluc 119, POC Gluc 131-152 03/24: Na 142, K 3.9, BUN 22, Cr 0.76, Glu 127 03/21: Na 145, K 3.9, BUN 22, Cr 0.88, Gluc 186, POC Gluc 98- 200 03/17: Na 144, K 3.8, BUN 26, Cr 0.86. Glu 200 03/13: Na 141, K 3.6, BUN 39, Cr 1.13, Gluc 245, POC Gluc 261-286 03/08: Na 142, K 4.4, BUN 54, Cr 1.42, Gluc 323, POC Gluc 316-336 Meds: lantus, fentanyl, humalog, lasix, ativan Ht:71 in Wt: 238 lbs (04/07) 233.5 lbs (04/04) 231 lbs (03/31) 225 lbs (03/24) 220 lbs (03/17) 212 lbs (02/27) 215 lbs (02/23) 213 lb (02/20) BMI:32.2 kg/m^2 IBW:172 lbs Malnutrition Evaluation (04/11) -unable to perform nutrition assessment Nutrition Prescription (Diet Order): TF: Vital HP at 70 ml/hr (1680 kcal, 147 g protein) Estimated Nutritional Needs: Calories: 9417-9966 kcal/day (20- 25 kcal/kg/day) Weight used : IBW (78 kg) Protein : 94 156 g protein/day (1.2-2 gram/kg/day ) Weight used: IBW (78 kg) Diet Adequacy: meeting calorie needs, meeting protein needs Diet Education Needs Assessment: Diet education not indicated, patient on temporary/transition diet. Nutrition Care Level: moderate Nutrition Diagnosis: Inadequate energy intake related to medical condition as evidenced by the pt needing mechanical ventilation and need for TF to meet energy and protein needs. Goal: Patient will meet 75-100% of estimated needs by follow up Progress: progressing Interventions: -TF (Composition, Rate, Route), Recommended Modifications, Collaboration with other providers Monitoring/Evaluation: -Total energy intake, Total protein intake, Formula/Solution Signed: Chasidy Bridges RD, LD, CNSC
--- NOTE | 2020-04-11 15:00 | Progress Note ---
DATE: SUBJECTIVE: The patient is still on a pressure regulated volume control. He is more awake. He is still having trouble moving his left side. PHYSICAL EXAMINATION: VITAL SIGNS: The blood pressure is 188/90. He required additional labetalol this morning. He is on a PRVC at a rate of 18 with a tidal volume of 420. Tracheostomy is bandaged. There are 2 chest tubes on the right as well as 2 chest tubes on the left. There are no visible air leaks in any of the chest tubes. There is no subcutaneous emphysema. CARDIAC: Reveals regular rate and rhythm with normal S1 and S2. LUNGS: Auscultation of lungs shows decreased breath sounds at the bases. There is no wheezing. ABDOMEN: Soft. There is a feeding tube in place. The patient is receiving enteral feedings. EXTREMITIES: He has no leg edema. He is not moving his left side well. LABORATORY DATA: White blood cell count is 7 and hemoglobin is 7.5. The platelet count is 298. The BUN to creatinine ratio is 45 to 0.91. Other electrolytes are within normal limits. The blood sugar is 206. IMPRESSION: 1. Loculated pneumothoraces, mostly on the right side, possibly related to prior empyema. 2. Acute respiratory failure. 3. Coronavirus disease 2019 infection. 4. Acute stroke with left hemiparesis. 5. Anemia, secondary to chronic blood loss. 6. Decubitus ulcer. 7. Deep vein thrombosis. PLAN: I discussed the case with Interventional Radiology. They did not believe any pigtail catheters will help to re-expand the lung. I have also discussed the case with Thoracic Surgery. Thoracic Surgery feels that the risk will be high because of his poor functional status. 1. Continue Lovenox. 2. Continue enteral feedings. 3. Judicious use of IV fluids. 4. Wound care. Case discussed with Radiology, CT Surgery, Nursing, Internal Medicine, Infectious Disease, and administration. Severiano Crow MD [facility]/FREDY /[id number]
--- NOTE | 2020-04-11 15:50 | Progress Note ---
DATE: SUBJECTIVE: Mr. Love is in critical care unit. He is intubated and sedated. Still have chest tubes in. PHYSICAL EXAMINATION: GENERAL: Intubated. VITAL SIGNS: Stable, currently afebrile. CHEST: Few crackles. COR: S1 and S2. No murmur. ABDOMEN: Soft. IMPRESSION: Respiratory failure, Coronavirus disease 19 pneumonia, vent dependent, bilateral pneumothorax, left upper extremity swelling, decubitus ulcer in sacral area, history of deep venous thrombosis, and diabetes with neuropathy. Doppler was ordered to rule out DVT. The patient is currently on lorazepam, Lasix, and Lovenox 80 mg q.12 hours. Continue supportive care. MD HARVEY Alexis/[facility] /[id number]
[2020-04-11] MEDS ORDERED: SODIUM HYPOCHLORITE 0.25% 480 ML SOLN IR ONE (20:30)
[2020-04-12] VITALS (26 sets, daily range): BP systolic 124–177; BP diastolic 77–111
[2020-04-12 05:04] LABS: BASOPHILS % 0.2 % (0.0-1.0); EOSINOPHILS # (AUTO) 0.2 (0.0-0.4); HEMATOCRIT 25.7 % (38.2-49.6); HEMOGLOBIN 7.6 g/dL (14.0-18.0); LYMPHOCYTES # (AUTO) 1.4 (1.0-3.2); LYMPHOCYTES % 21.9 % (18.0-39.1); MEAN CORPUSCULAR HEMOGLOBIN 24.8 pg (28-32); MEAN CORPUSCULAR HGB CONC 29.6 g/dL (31-35); MEAN CORPUSCULAR VOLUME 83.7 fL (81-99); MONOCYTES # (AUTO) 0.9 (0.2-0.8); MONOCYTES % 14.1 % (4.4-11.3); NEUTROPHILS # (AUTO) 3.9 (2.1-6.9); NEUTROPHILS % 60.3 % (38.7-80.0); PLATELET COUNT 300 x10e3/uL (140-360); RED BLOOD COUNT 3.07 x10e6/uL (4.3-5.7)
[2020-04-12 05:23] LABS: ANION GAP 12.8 mmol/L (8-16); BLOOD UREA NITROGEN 58 mg/dL (7-26); BUN/CREATININE RATIO 55 (6-25); CALCIUM 8.3 mg/dL (8.4-10.2); CARBON DIOXIDE 33 mmol/L (22-29); CHLORIDE 96 mmol/L (98-107); CREATININE, SERUM 1.06 mg/dL (0.72-1.25); EST GLOMERULAR FILTRATION RATE > 60 ML/MIN (60-); GLUCOSE 119 mg/dL (74-118); POTASSIUM 4.8 mmol/L (3.5-5.1); SODIUM 137 mmol/L (136-145)
[2020-04-12] MEDS: METOPROLOL TARTRATE 25 MG TAB PO SCH ×4 (06:25→18:32)
[2020-04-12] MEDS: INSULIN LISPRO 100 UNIT/1 ML 3ML VIAL SQ SCH ×4 (07:30→21:00)
[2020-04-12 07:51] LABS: HYPOCHROMASIA SLIGHT; POLYCHROMASIA FEW
[2020-04-12 07:52] LABS: ANISOCYTOSIS MODERATE; PLATELET ESTIMATE ADEQUATE; PLATELET MORPHOLOGY COMMENT NORMAL; RBC MORPHOLOGY COMMENT ABNORMAL
[2020-04-12] MEDS: SODIUM HYPOCHLORITE 0.25% 480 ML SOLN IR SCH (08:19)
[2020-04-12] MEDS: INSULIN GLARGINE 100 UNITS/ML VIAL SQ SCH ×2 (08:27→21:01)
[2020-04-12] MEDS: FAMOTIDINE 20 MG/2 ML VIAL IV SCH ×2 (08:27→17:15)
[2020-04-12] MEDS: ENOXAPARIN INJ 80 MG/0.8 ML SYR SC SCH ×2 (08:27→21:00)
[2020-04-12] MEDS ORDERED: INSULIN GLARGINE 100 UNITS/ML VIAL SQ SCH (09:00)
[2020-04-12] MEDS: FENTANYL 2,000 MCG/250 ML BAG IV PRN (09:00)
[2020-04-12] MEDS ORDERED: BISACODYL 10 MG SUPP PR PRN (09:15)
[2020-04-12] MEDS: FUROSEMIDE INJ 10 MG/ML 4 ML VIAL IV SCH ×2 (09:41→21:00)
--- NOTE | 2020-04-12 10:03 | Progress Note ---
DATE: 04/12/2020 CHIEF COMPLAINT/HISTORY OF PRESENT ILLNESS: This is a 35-year-old man, whose primary treating diagnosis is chronic respiratory failure secondary to previous bilateral pneumonia. The patient's pneumonia resolved, but he continues to have bilateral patchy consolidations, which unfortunately have kept on ventilator dependent. He also has right-sided loculated pneumothoraces. He has bilateral chest tubes in place. The patient had blood work today and was found to have a white blood cell count of 6300 with 60% segmented neutrophils. Hemoglobin 7.6 g/dL. The patient's BUN and creatinine are 58 and 1.06 respectively. Potassium is 4.8. The patient underwent a venous Doppler ultrasound of the left upper extremity yesterday, but the results are still pending. REVIEW OF SYSTEMS: As per HPI. PHYSICAL EXAMINATION: GENERAL: He is sedated, but arousable and follows simple commands. VITAL SIGNS: Blood pressure is 140/90, pulse is 94, respiratory rate 18, oxygen saturation 97% on FiO2 45%. The patient is currently on a ventilator AC mode, temperature 97.8, BMI is 32. INTEGUMENT: Skin is warm and dry. Slight pallor. No jaundice or diaphoresis. The patient has a 6 x 6 cm unstageable sacral decubitus ulcers, which has a central eschar covered area. HEENT: Anicteric sclerae. Moist mucous membranes. NECK: Supple. He has a tracheostomy tube in place, connected to ventilator. CARDIOVASCULAR: Tachycardic rate. Regular rhythm. LUNGS: The patient has crackles and rhonchi in the bilateral lung alvarado. He also has bilateral tube thoracostomies in place. ABDOMEN: Soft, has a G-tube placed, which is functional. EXTREMITIES: He has edema in all four extremities, more pronounced in the left upper extremity. NEUROLOGIC: The patient moves the right upper and lower extremity somewhat freely. He has movement in the left lower extremity, but very minimal movement in the left upper extremity. DIAGNOSES: 1. Chronic respiratory failure secondary to previous bilateral COVID-19 pneumonia. 2. Acute respiratory distress syndrome, resolved. 3. Ventilator dependence. 4. Right lower extremity deep venous thrombosis. 5. Left upper extremity swelling. 6. Unstageable sacral decubitus ulcer. 7. Anemia secondary to chronic disease. 8. Type 2 diabetes mellitus. 9. Cardiopulmonary arrest secondary to profound hypoxia, March 27, 2020, resolved. 10. Left hemiparesis, likely secondary to anoxic brain injury. 11. Right-sided loculated pneumothoraces. PLAN: 1. I discussed the case with the coin wrapping machine operator and we may remove the left-sided chest tubes today. 2. Start intravenous furosemide since the patient appears to be volume overloaded. 3. Follow hemoglobin and hematocrit. 4. Order repeat hemoccult stool, since his BUN is increasing. 5. We increased Lantus insulin from 30 to 40 units subcutaneous twice a day for better glucose control. 6. Continue metoprolol tartrate 25 mg every 6 hours for blood pressure control. 7. Nutritional support. 8. Continue physical therapy. 9. Continue wound care to the patient's sacral decubitus ulcer. I spent 35 minutes in the care of this intensive care unit patient. MD OLVIN Blackburn/FREDY /[id number] MTDJj
[2020-04-12] MEDS: LORAZEPAM INJ 2 MG/ML VIAL IV PRN ×2 (13:30→23:02)
[2020-04-12] MEDS ORDERED: LIDOCAINE HCL 2% LOCAL 20 ML VIAL ONE (13:35)
[2020-04-12] MEDS ORDERED: ALBUMIN 25% 25GM 100ML 0.25 GM/ML BTL IV SCH (13:45)
--- NOTE | 2020-04-12 14:09 | Progress Note ---
DATE: SUBJECTIVE: The patient had the left chest tube removed today. He tolerated spontaneous breathing trial with a pressure support of 12 and CPAP of five for 4 hours today. He remains on fentanyl at 150 mcg. PHYSICAL EXAMINATION: VITAL SIGNS: The patient is afebrile. The blood pressure is 141/89. The pulse is 103. Saturation is 96%. HEENT: No facial swelling or erythema. CARDIAC: Regular rate and rhythm with normal S1, S2. LUNGS: Auscultation of lungs reveals decreased breath sounds at the bases. There is no wheezing. ABDOMEN: Soft, nontender. There is no subcutaneous emphysema. There is a feeding tube in good position. EXTREMITIES: There is some leg edema. There is some diffuse weakness with some left hemiparesis. LABORATORY DATA: White blood cell count is 6.4 and hemoglobin 7.6. The platelet count is 300. The BUN to creatinine ratio is 58 to 1.06. The other electrolytes are within normal limits. IMPRESSION: 1. Loculated pneumothoraces, mostly on the right side. 2. Acute respiratory failure. 3. Acute kidney injury. 4. Acute stroke with left hemiparesis. 5. Anemia secondary to chronic blood loss. 6. Decubitus ulcer. 7. Deep vein thrombosis. PLAN: 1. Left chest tube was removed. We will obtain a chest x-ray. 2. We are still awaiting an opinion from Thoracic Surgery regarding possible VATS or thoracotomy to re-expand the right lung. 3. Continue Lovenox. 4. Continue enteral feedings. 5. Decrease Lasix. 6. Wound care. 7. Case discussed with father, Internal Medicine, and administration. Greater than 35 minutes in direct critical care time. Severiano Crow MD [facility]/FREDY /[id number]
--- NOTE | 2020-04-12 14:42 | NUR ---
patient awake. calm still mechanical ventilator dependant 104 130/80 98.0 awake, follows commands, lethargic pupils reactive, mild ptosis left eye no nuchal rigidity eomi, no dysconjugacy rrr - tachy vent dependant abd soft moves rue 4/5 lue 2/5 at elbow able to cock-up wrist lle 2+/5 rle 3/5 reflexes diminished throughout no ataxia sensory grossly intact but exam is limited a/p left hemiparesis - repeat CT, patient is calm and able to tolerate CT brain EEG is pending no aed possible CVA associated w/ covid hypercoagulability vs critical care myopathy myogolin reasurring carotid duplex clear pt ot rehab for left hemiparesis. likely small ischemic vs hypoxemic injury not notable on CT will monitor
--- NOTE | 2020-04-12 15:58 | Diagnostic Imaging Report ---
TECHNIQUE: Frontal view of the chest. INDICATION: 35-year-old man after left chest tube removal. COMPARISON: Chest radiograph 04/11/2020. FINDINGS: LINES/TUBES: Interval removal of the large bore left chest tube. Other lines/tubes are unchanged. LUNGS: Persistent bilateral airspace opacities, increased on the right. PLEURA: No significant change in bilateral loculated hydropneumothoraces. HEART AND MEDIASTINUM: The cardiomediastinal silhouette is unchanged. SOFT TISSUES AND BONES: Unremarkable. IMPRESSION: Lines/tubes as above. Bilateral airspace opacities, increased on the right. Otherwise, no significant change since 04/11/2020. Signed by: Justina Kirby MD on 04/12/2020 3:55 PM
--- NOTE | 2020-04-12 16:04 | Progress Note ---
DATE: SUBJECTIVE: Mr. Love remains in intensive care unit. He has four chest tubes still in. The patient otherwise on fentanyl. He is on pressure support of 12, CPAP of 5. PHYSICAL EXAMINATION: GENERAL: He is intubated, sedated. VITAL SIGNS: Stable, afebrile. HEENT: Not icteric. NECK: Supple. CHEST: Few crackles. IMPRESSION: Coronavirus disease-19 on admission, complicated with deep venous thrombosis, complicated with pneumonia, and complicated with trach, had fairly progressed now with pneumothorax. He also had acute kidney injury, which seems to be better, so far the patient is stable. His cultures remain negative. His white count 6.39, hemoglobin 7.6. He is currently on furosemide, Lovenox, metoprolol, and Tylenol. From Infectious Disease point of view, continue with supportive care. Discussed with Critical Care. Discussed with medical team. MD HARVEY Alexis/FREDY /[id number]
--- NOTE | 2020-04-12 20:40 | Progress Note ---
DATE: 04/12/2020 REASON FOR PROGRESS NOTE: Dyspnea, respiratory insufficiency, loculated pneumothorax, history of COVID-19; requested by Dr. Emili Crow. SUBJECTIVE: Sitting up in bed in the ICU. Alert and responsive. O2 saturation 99% to 100% on FiO2 45% and ventilator support. Had a weaning trial today. PHYSICAL EXAMINATION: CARDIAC: Regular rate and rhythm. Normal S1 and S2. Bilateral crackles and chest tube sounds. Two chest tubes in place on the right. Does not have any air leak. NECK: Supple. Nontender. HEENT: Normocephalic and atraumatic. ABDOMEN: Benign. Good bowel sounds. EXTREMITIES: No cyanosis, clubbing, or edema. IMAGING: Chest x-ray and CT are reviewed. There are several loculated pneumothoraces on the right. There is a small effusion. LABORATORY DATA: White count 6.3, hemoglobin 7.6, hematocrit 25.7, and platelet count 170,000. Sodium 130, potassium 4.6, BUN is 58 with creatinine 1.06. INR 0.97 on 04/10. IMPRESSION: The patient is to make progress with current pulmonary status. The chest tubes do not have air leak. One was discontinued and I would favor slowly discontinuing the chest tubes. At this point, he seems to be making progress. Surgical intervention likely warranted at some point, but as long as the patient improve, intervention is not mandatory. We will discuss timing of surgery with his other physicians. MD JESSIE Williamson/FREDY /[id number] MTDJj
[2020-04-13] VITALS (24 sets, daily range): BP systolic 128–177; BP diastolic 77–108
[2020-04-13] MEDS: METOPROLOL TARTRATE 25 MG TAB PO SCH ×4 (00:01→17:08)
[2020-04-13] MEDS: FENTANYL 2,000 MCG/250 ML BAG IV PRN ×3 (01:30→22:45)
[2020-04-13] MEDS: LORAZEPAM INJ 2 MG/ML VIAL IV PRN ×3 (02:45→20:23)
[2020-04-13 06:39] LABS: BASOPHILS % 0.2 % (0.0-1.0); EOSINOPHILS # (AUTO) 0.2 (0.0-0.4); EOSINOPHILS % 1.8 % (0.0-6.0); HEMATOCRIT 24.5 % (38.2-49.6); HEMOGLOBIN 7.5 g/dL (14.0-18.0); LYMPHOCYTES # (AUTO) 1.2 (1.0-3.2); LYMPHOCYTES % 14.4 % (18.0-39.1); MEAN CORPUSCULAR HEMOGLOBIN 24.9 pg (28-32); MEAN CORPUSCULAR HGB CONC 30.6 g/dL (31-35); MEAN CORPUSCULAR VOLUME 81.4 fL (81-99); MONOCYTES # (AUTO) 0.8 (0.2-0.8); MONOCYTES % 9.4 % (4.4-11.3); NEUTROPHILS # (AUTO) 6.2 (2.1-6.9); NEUTROPHILS % 73.5 % (38.7-80.0); PLATELET COUNT 339 x10e3/uL (140-360); RED BLOOD COUNT 3.01 x10e6/uL (4.3-5.7); RED CELL DISTRIBUTION WIDTH 17.1 % (11.7-14.4)
[2020-04-13 07:13] LABS: ALANINE AMINOTRANSFERASE 24 IU/L (0-55); ALBUMIN 2.5 g/dL (3.5-5.0); ALBUMIN/GLOBULIN RATIO 0.5 (0.8-2.0); ALKALINE PHOSPHATASE 181 IU/L (40-150); ANION GAP 13.9 mmol/L (8-16); BLOOD UREA NITROGEN 57 mg/dL (7-26); BUN/CREATININE RATIO 50 (6-25); CALCIUM 9.3 mg/dL (8.4-10.2); CARBON DIOXIDE 35 mmol/L (22-29); CHLORIDE 95 mmol/L (98-107); CREATININE, SERUM 1.14 mg/dL (0.72-1.25); EST GLOMERULAR FILTRATION RATE > 60 ML/MIN (60-); GLUCOSE 164 mg/dL (74-118); POTASSIUM 4.9 mmol/L (3.5-5.1); SODIUM 139 mmol/L (136-145)
[2020-04-13] MEDS: INSULIN LISPRO 100 UNIT/1 ML 3ML VIAL SQ SCH ×4 (07:30→22:43)
--- NOTE | 2020-04-13 08:00 | NUR ---
patient awake. 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 likely small ischemic vs hypoxemic injury not notable on CT will monitor
--- NOTE | 2020-04-13 09:00 | NUR ---
Pt unavailable at this time. Staff performing procedure bedside. Will follow up as able. BINDU VACA [facility] O: [phone]
--- NOTE | 2020-04-13 11:33 | Progress Note ---
DATE: 04/13/2020 CHIEF COMPLAINT/HISTORY OF PRESENT ILLNESS: This is a 35-year-old man whose primary treating diagnosis is acute hypoxic respiratory failure secondary to previous bilateral COVID-19 pneumonia. The patient is still ventilator dependent from the lung injury secondary to his prolonged bilateral COVID-19 pneumonia infection. However, currently he is COVID negative. The patient's left-sided tube thoracostomy was removed yesterday. The patient underwent a chest x-ray yesterday that revealed bilateral airspace opacities increased on the right. The patient still has a right-sided tube thoracostomy. Blood work today reveals BUN and creatinine of 57 and 1.14 respectively. The patient's hemoglobin 7.5 g/dL. White blood cell count 8400 with 73% segmented neutrophils. REVIEW OF SYSTEMS: As per HPI. PHYSICAL EXAMINATION: GENERAL: He is sedated at this time with intravenous lorazepam as well as fentanyl. He is on a ventilator via tracheostomy tube. He is on AC mode, FiO2 is 45% with oxygen saturation 96%. Heart rate 102, blood pressure is 126/72, respiratory rate 18, temperature 99.4, BMI is 32. INTEGUMENT: Skin is warm and dry. Slight pallor. No jaundice or diaphoresis. The patient has a 10 x 12 cm unstageable sacral decubitus ulcer with a central area with eschar covered central area. There is granulation tissue in the periphery of this wound. HEENT: Anterior sclerae moist mucous membranes. NECK: Supple. He has a tracheostomy tube in place, connected to ventilator. CARDIOVASCULAR: Tachycardic rate with regular rhythm. LUNGS: The patient has crackles in bilateral lung alvarado. The patient has a right-sided tube thoracostomy in place. ABDOMEN: Soft. The G-tube in place, which is functional. EXTREMITIES: Trace edema in the bilateral legs. The patient has edema in the left upper extremity. The patient has 2+ edema in the left upper extremity. NEUROLOGIC: The patient continues to have left hemiparesis, currently sedated. DIAGNOSES: 1. Chronic respiratory failure secondary to previous bilateral COVID-19 viral pneumonia. 2. Ventilator dependent. 3. Acute right lower extremity deep venous thrombosis. 4. Anemia secondary to chronic disease. 5. Type 2 diabetes mellitus. 6. Unstageable sacral decubitus ulcer. PLAN: 1. Followup hemoglobin and hematocrit. 2. Continue intravenous furosemide. 3. We will likely remove right-sided tube thoracostomy today. 4. Nutritional support. 5. The patient will undergo electroencephalogram today. 6. We will continue physical therapy. 7. Continue wound care to the patient's unstageable sacral decubitus ulcer. I spent 30 minutes in the care of this intensive care unit patient. MD OLVIN Blackburn/FREDY /[id number] MTDD
--- NOTE | 2020-04-13 11:39 | NUR ---
PATIENT SEEN AT BED SIDE WITH PRIMARY NURSE CONCERNED ABOUT ESCHAR BECOMING UNSTABLE TO SACRUM MY RECOMMENDATIONS ARE FOLLOWS USE BETADINE TO PAINT ESCHAR COVER WITH 4X4 MAT USE FOAM TO SECURE Addendum: 04/13/20 at 1146 by Dedrick Chan RN Amended: Links added.
[2020-04-13] MEDS: FUROSEMIDE INJ 10 MG/ML 4 ML VIAL IV SCH ×2 (11:54→22:33)
[2020-04-13] MEDS: ENOXAPARIN INJ 80 MG/0.8 ML SYR SC SCH ×2 (11:54→22:33)
[2020-04-13] MEDS: SODIUM HYPOCHLORITE 0.25% 480 ML SOLN IR SCH (11:54)
[2020-04-13] MEDS: FAMOTIDINE 20 MG/2 ML VIAL IV SCH (11:54)
[2020-04-13] MEDS: INSULIN GLARGINE 100 UNITS/ML VIAL SQ SCH ×2 (11:56→22:43)
--- NOTE | 2020-04-13 11:58 | Progress Note ---
DATE: SUBJECTIVE: Mr. Love remains in intensive care unit. More alert. Seems to be getting better slowly. He was seen by Thoracic Surgery yesterday. PHYSICAL EXAMINATION: GENERAL: Alert. Follows simple commands. VITAL SIGNS: Stable. Remains weak. HEENT: Not icteric. NECK: Supple. CHEST: Clear, COR: S1 and S2. No S3, S4, or murmurs. ABDOMEN: Soft. MEDICATIONS: He is currently on lorazepam, Ativan as needed, Lopressor, and Lovenox. LABORATORY DATA: Reviewed. His white count is 8.4 and hemoglobin 7.5. Sodium 139, potassium 4.9 with a creatinine 1.14. IMPRESSION: Respiratory failure, bilateral pneumothorax, status post scope COVID-19, history of deep venous thrombosis, status post trach. Continue anticoagulation. Continue supportive care. Discussed with Internal Medicine. Clinically showing signs of improvement. Discussed with the medical team. We will follow. MD HARVEY Alexis/FREDY /[id number]
[2020-04-13] MEDS: ACETAMINOPHEN 325 MG TAB PO PRN (12:05)
[2020-04-13] MEDS ORDERED: FENTANYL 50 MCG/HR PATCH TOP SCH (13:15)
--- NOTE | 2020-04-13 13:21 | NUR ---
ASSESSMENT: Spiritual concern Pt's father hopeful for son's recovery. Pt's father at bedside, holding son's hand. Pt's father states importance of community support and prayer in son's recovery. Intervention: Provided pastoral presence and empathic listening. Facilitated illness review. Provided encouragement. Outcome: Will continue to follow as able. BINDU [facility] O: [phone]
--- NOTE | 2020-04-13 15:11 | Diagnostic Imaging Report ---
X-ray chest portable frontal Comparison: 04/12/2020 at 1531 History: ETT Findings: There is a tracheostomy and a left arm PICC line with the tip overlying SVC, a left pleural drain and a right pleural drain with a poorly formed pigtail which are unchanged. In the interim the second upper right pleural drain has been removed. There is persistent lucency along the right atrial border in the lower right hemithorax. Possibility of a small right pneumothorax is not ruled out. Crosstable lateral decubitus view would be ideal to rule it out. The findings of right and left lung opacities and infiltrates remain largely unchanged. Right pleural-based opacities also remain unchanged. Impression: Interval removal of the right upper pleural drain. A right pneumothorax cannot be entirely ruled out. Crosstable lateral decubitus view should be considered. No major change in the pulmonary findings. Signed by: Dionisio Palmer MD on 04/13/2020 3:08 PM
--- NOTE | 2020-04-13 15:23 | Progress Note ---
DATE: SUBJECTIVE: The patient remains on fentanyl. He is receiving Ativan p.r.n. The anterior chest tube on the right was removed today. He still has a chest tube lower down on the right and one on the left. PHYSICAL EXAMINATION: VITAL SIGNS: Blood pressure is 160/92. Pulse is 106. Respiratory rate is 22. HEENT: Shows no facial swelling or erythema. CARDIAC: Reveals regular rate and rhythm with normal S1 and S2. LUNGS: Auscultation of lungs shows decreased breath sounds at the bases. There is no wheezing. ABDOMEN: Soft, nontender. There is no rebound or guarding. EXTREMITIES: Show no leg edema or calf tenderness. There is no cyanosis or clubbing. SKIN: Shows no rashes. NEUROLOGIC: Shows the patient to be awake. He still has some left hemiparesis. LABORATORY DATA: Hemoglobin is 7.5 and platelet count is 339. White blood cell count is 8.4. BUN to creatinine ratio is 57 to 1.14 and the other electrolytes within normal limits. IMPRESSION: 1. Acute respiratory failure. 2. Bilateral pneumothoraces, more on the right with some loculation. 3. Deep vein thrombosis. 4. Anemia, unspecified. 5. Type 2 diabetes. 6. Decubitus ulcer. PLAN: 1. Repeat chest x-ray. 2. Continue spontaneous breathing trials as tolerated. 3. Continue Lovenox. 4. Continue enteral feedings. 5. Wound care. Severiano Crow MD [facility] /[id number]
--- NOTE | 2020-04-13 19:19 | NUR ---
eeg completed this morning. ativan ivp prn given prior to eeg (before on unit). pt extremely agitated throughout day. started fentanyl patch to help reduce gtt rate. sat on side of bed with physical therapy today. bath (soap and water given) dsgs changed. linens changed. right chest tube removed. left chest tube removed yesterday. patient currently has two chesttubes.
[2020-04-13] MEDS: QUETIAPINE FUMARATE 25 MG TAB PEG SCH (21:00)
[2020-04-14] VITALS (27 sets, daily range): BP systolic 107–187; BP diastolic 69–101
[2020-04-14] MEDS: METOPROLOL TARTRATE 25 MG TAB PO SCH ×4 (00:30→17:53)
[2020-04-14 05:45] LABS: BASOPHILS % 0.2 % (0.0-1.0); EOSINOPHILS # (AUTO) 0.2 (0.0-0.4); EOSINOPHILS % 3.4 % (0.0-6.0); HEMATOCRIT 24.1 % (38.2-49.6); HEMOGLOBIN 7.2 g/dL (14.0-18.0); LYMPHOCYTES # (AUTO) 1.2 (1.0-3.2); LYMPHOCYTES % 19.2 % (18.0-39.1); MEAN CORPUSCULAR HEMOGLOBIN 24.6 pg (28-32); MEAN CORPUSCULAR HGB CONC 29.9 g/dL (31-35); MEAN CORPUSCULAR VOLUME 82.3 fL (81-99); MONOCYTES # (AUTO) 0.8 (0.2-0.8); MONOCYTES % 12.9 % (4.4-11.3); PLATELET COUNT 309 x10e3/uL (140-360); RED BLOOD COUNT 2.93 x10e6/uL (4.3-5.7); RED CELL DISTRIBUTION WIDTH 17.1 % (11.7-14.4)
[2020-04-14 06:21] LABS: ALANINE AMINOTRANSFERASE 24 IU/L (0-55); ALBUMIN 2.2 g/dL (3.5-5.0); ALBUMIN/GLOBULIN RATIO 0.4 (0.8-2.0); ALKALINE PHOSPHATASE 155 IU/L (40-150); ANION GAP 11.3 mmol/L (8-16); BLOOD UREA NITROGEN 54 mg/dL (7-26); BUN/CREATININE RATIO 55 (6-25); CALCIUM 8.4 mg/dL (8.4-10.2); CARBON DIOXIDE 38 mmol/L (22-29); CHLORIDE 96 mmol/L (98-107); CREATININE, SERUM 0.99 mg/dL (0.72-1.25); EST GLOMERULAR FILTRATION RATE > 60 ML/MIN (60-); GLUCOSE 140 mg/dL (74-118); POTASSIUM 4.3 mmol/L (3.5-5.1); SODIUM 141 mmol/L (136-145)
[2020-04-14] MEDS: INSULIN LISPRO 100 UNIT/1 ML 3ML VIAL SQ SCH ×4 (07:30→21:00)
[2020-04-14] MEDS: ENOXAPARIN INJ 80 MG/0.8 ML SYR SC SCH ×2 (08:20→21:30)
[2020-04-14] MEDS: SODIUM HYPOCHLORITE 0.25% 480 ML SOLN IR SCH (08:20)
[2020-04-14] MEDS: FUROSEMIDE INJ 10 MG/ML 4 ML VIAL IV SCH ×3 (08:20→22:13)
[2020-04-14] MEDS: INSULIN GLARGINE 100 UNITS/ML VIAL SQ SCH ×2 (09:31→21:30)
--- NOTE | 2020-04-14 09:57 | Progress Note ---
DATE: 04/14/2020 CHIEF COMPLAINT/HISTORY OF PRESENT ILLNESS: This is a 35-year-old man whose primary treating diagnosis is chronic respiratory failure secondary to lung injury from previous COVID-19 viral pneumonia. The patient is no longer COVID-19 positive though. Today's blood work revealed white blood cell count of 6200 with 64% segmenters, hemoglobin 7.2 g/dL. The patient's BUN and creatinine is 54 and 0.99 respectively. Potassium is 4.3. The patient has had two hemoccult stools, one on April 10 and second on April 12 and both were negative. Chest film performed yesterday, April 13, 2020, revealed unchanged bilateral lung opacities and infiltrates. REVIEW OF SYSTEMS: As per HPI. PHYSICAL EXAMINATION: GENERAL: He is awake, somewhat alert. He still sedated with fentanyl. He is on a ventilator via tracheostomy tube. VITAL SIGNS: His oxygen saturation 94% on FiO2 of 45%. He is on AC mode. Heart rate is 98, blood pressure is 144/96, temperature 97.5, height 5 feet 11 inches, weight is 239 pounds, BMI is 33. INTEGUMENT: Skin is warm and dry. Slight pallor. No jaundice or diaphoresis. The patient has a 10 x 15 cm unstageable sacral decubitus ulcer that has a central eschar covered area. HEENT: Anterior sclerae moist mucous membranes. NECK: Supple. He has a tracheostomy tube in place, connected to ventilator. CARDIOVASCULAR: Tachycardic rate with regular rhythm. LUNGS: Crackles and rhonchi in the bilateral lung alvarado. The patient has a right-sided tube thoracostomy in place. ABDOMEN: Soft. He has a G-tube in place that is functional. EXTREMITIES: He has edema in all four extremities. NEUROLOGIC: The patient still has left-sided hemiparesis. He can only minimally move his left hand and left foot with command. He does shake my hand with his right hand. The patient does follow simple commands easily. DIAGNOSES: 1. Chronic respiratory failure secondary to previous bilateral COVID-19 viral pneumonia. 2. Ventilator dependent. 3. Acute right lower extremity deep venous thrombosis. 4. Anemia secondary to chronic disease. 5. Type 2 diabetes mellitus. 6. Unstageable sacral decubitus ulcer. PLAN: 1. Continue ventilator weaning protocol. 2. Continue weaning of the patient's FiO2 requirements. 3. Follow hemoglobin and hematocrit. 4. Respiratory care. 5. We will increase intravenous furosemide from 80 mg every 12 hours to every 8 hours. 6. We will likely remove right-sided chest tube thoracostomy today. 7. Continue nutritional support. 8. Blood glucose control. 9. We will continue physical therapy. 10. Continue wound care to the patient's unstageable sacral decubitus ulcer. I spent 40 minutes in care of this intensive care unit patient. MD OLVIN Blackburn/FREDY /[id number] MTDD
[2020-04-14] MEDS ORDERED: SODIUM CHLORIDE 0.9% 250ML 250 ML IV ONE (11:15)
--- NOTE | 2020-04-14 13:06 | NUR ---
patient awake. 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 likely small ischemic vs hypoxemic injury not notable on CT will monitor
--- NOTE | 2020-04-14 13:33 | Progress Note ---
DATE: SUBJECTIVE: The patient is more awake today. He is on a fentanyl patch and his fentanyl drip has been decreased. He remains weak on the left side, but is moving it a little more. He tolerated the CPAP trial for 3 hours today. PHYSICAL EXAMINATION: VITAL SIGNS: Stable. Blood pressure is 150/93 and heart rate is 111. HEENT: Shows no facial swelling or erythema. He has a tracheostomy in place. There is a right pigtail chest tube and left pigtail chest tube. There is no air leak visible. The patient has no subcutaneous emphysema. CARDIAC: Reveals regular rate and rhythm with normal S1 and S2. LUNGS: Auscultation of lungs reveals decreased breath sounds at the bases. There is no wheezing. ABDOMEN: Soft and nontender. There is no rebound or guarding. EXTREMITIES: Shows no leg edema or calf tenderness. There is no cyanosis or clubbing. SKIN: Shows no rashes. LABORATORY DATA: BUN to creatinine ratio is 59 to 0.99. Other electrolytes are within normal limits. The glucose is 151. Albumin is 2.2. Hemoglobin is 7.2 and the white blood cell count is 6.2. Platelet count is 309. IMPRESSION: 1. Respiratory failure. 2. Right-sided loculated pneumothoraces. 3. Cerebrovascular accident. 4. Decubitus ulcer. 5. Anemia secondary to chronic blood loss. 6. Deep vein thrombosis. PLAN: 1. The patient will have a repeat CT scan of the chest today. 2. Continue chest tubes for now. 3. Physical therapy. 4. Continue enteral feedings. 5. Attempt to wean off fentanyl. 6. Wound care. Severiano Crow MD [facility]/MODL /[id number]
--- NOTE | 2020-04-14 16:44 | Progress Note ---
DATE: SUBJECTIVE: Mr. Love remains in intensive care unit intubated with chest tubes and father at bedside. REVIEW OF SYSTEMS: He is just extremely weak. Weakness on left side. PHYSICAL EXAMINATION: GENERAL: Alert. VITAL SIGNS: Stable, currently afebrile. HEENT: He is not icteric. NECK: Supple. CHEST: Crackles bilateral. IMPRESSION: 1. COVID-19 on admission, respiratory failure on admission, right side loculated pneumothorax. 2. Cerebrovascular accident. 3. Decubitus ulcer. 4. Deep vein thrombosis. 5. Status post CPR. 6. Continue supportive care. Continue with physical therapy as ordered. His COVID-19 has been negative. We need to stop isolation. He has been negative since March 31. We will follow. MD HARVEY Alexis/FREDY /[id number]
[2020-04-14] MEDS: LORAZEPAM INJ 2 MG/ML VIAL IV PRN ×2 (20:20→22:21)
[2020-04-14] MEDS: QUETIAPINE FUMARATE 25 MG TAB PEG SCH (21:30)
--- NOTE | 2020-04-14 22:27 | Diagnostic Imaging Report ---
EXAM: CT Chest without contrast INDICATION: Follow-up right-sided loculated pneumothoraces. COMPARISON: Chest radiograph 04-13-[address] chest 04-10-2020. TECHNIQUE: Chest was scanned utilizing a multidetector helical scanner from the lung apex through the level of the adrenal glands without administration of IV contrast. Coronal and sagittal reformations were obtained. Routine protocol was performed. IV CONTRAST: None. RADIATION DOSE: Total DLP: 553.9 mGy*cm Estimated effective dose: (DLP x 0.014 x size factor) mSv COMPLICATIONS: None FINDINGS: LINES/ TUBES: Tracheostomy tube terminates in the midtrachea. Left arm PICC terminates in the SVC. Right and left basilar pleural pigtail drainage catheter. LUNGS AND AIRWAYS/PLEURA: There is increased size of large loculated right-sided pneumothoraces, most pronounced in the apex, measuring up to 5.3 cm and in the base, measuring up to 11.3 cm, previously 5.6 cm. Component at the right base previously was mixed with fluid and air, and now has less fluid and more air. There is a small to moderate right-sided posterior predominantly layering hydropneumothorax (predominately fluid) with some fluid loculation along the right upper lung. Small to moderate left partially loculated posterior basilar predominate hydropneumothorax, predominately fluid-filled with a small amount of air. Again noted are bilateral diffuse multifocal groundglass and patchy consolidative opacities, most confluent in the bilateral lower lobes and right upper lobe. Scattered smooth intralobular septal thickening. HEART AND MEDIASTINUM: The thyroid gland is normal. Again noted is mediastinal lymphadenopathy, for example a right paratracheal lymph node, measuring up to 2.0 cm on series 2, image 43, previously 2.[address] from 04/10/2020, likely reactive. Limited evaluation in the absence of intravenous contrast. There is mucous and debris within the upper trachea. No cardiomegaly or pericardial effusion. Coronary atherosclerosis. UPPER ABDOMEN: Limited non-contrast views of the upper abdomen secondary to lack of contrast and streak artifact from arms. Splenomegaly, measuring up to 16.9 cm. BONES: The visualized bony thorax is within normal limits. SOFT TISSUES: Diffuse mild anasarca. IMPRESSION: Increased large loculated right-sided pneumothoraces, most pronounced in the right apex and right lung base. No mediastinal shift. Additional small to moderate bilateral predominately layering but partially loculated pleural effusions with small amount of pleural air. Persistent multifocal groundglass and patchy consolidative opacities, which may represent a combination of pneumonia (including atypical pneumonia) or aspiration with superimposed pulmonary edema. Lines and tubes as above. Debris within the trachea, increasing risk for aspiration. The above findings were discussed with DARRON Gabriel on 04/14/2020 at 1017 PM. Signed by: Dr. Yariel Almeida MD on 04/14/2020 10:23 PM
--- NOTE | 2020-04-14 23:00 | NUR ---
NOTIFIED DR. Terra CABRAL OF CT RESULTS. NO NEW ORDERS AT THIS TIME. PT STABLE.
[2020-04-15] VITALS (23 sets, daily range): BP systolic 136–184; BP diastolic 72–105
[2020-04-15] MEDS: METOPROLOL TARTRATE 25 MG TAB PO SCH ×5 (00:18→22:10)
--- NOTE | 2020-04-15 00:41 | Progress Note ---
DATE: 04/14/2020 REASON FOR PROGRESS NOTE: Dyspnea, respiratory insufficiency, loculated pneumothorax, history of COVID-19. REQUESTING PHYSICIAN: Severiano Crow MD. SUBJECTIVE: Sitting up in bed in the ICU. More neurologically intact. O2 saturation 99% to 100% on FiO2 45%. Currently, he is off the ventilator and doing well with a weaning trial. PHYSICAL EXAMINATION: CARDIAC: Regular rate and rhythm. Normal S1, S2. Bilateral crackles and chest tube sounds. There is one chest tube in place on the right and one on the left at present. Neither of them have any air leak. NECK: Supple. Nontender. HEENT: Normocephalic and atraumatic. ABDOMEN: Benign, good. Good bowel sounds. EXTREMITIES: No cyanosis, clubbing, or edema. IMAGING: Chest x-ray is reviewed and shows lung fully expanded on the AP view. CT scan performed several days ago shows multiple loculated pneumothoraces. He is going to get another CT scan this evening or tomorrow. IMPRESSION: The patient continued to make progress and his pulmonary status is recovering. The chest tubes do not have any air leak. I agree with progressively discontinuing them. Surgical intervention will be warranted at some point, but as long as he is continuing to improve, I would favor nonsurgical management. At some point, he will need a thoracotomy to free up the likely trapped lung on the right. MD PRASANNA WilliamsonL/MODL /[id number]
[2020-04-15] MEDS: LORAZEPAM INJ 2 MG/ML VIAL IV PRN ×4 (01:00→20:00)
[2020-04-15 06:07] LABS: BASOPHILS % 0.1 % (0.0-1.0); EOSINOPHILS # (AUTO) 0.2 (0.0-0.4); EOSINOPHILS % 2.2 % (0.0-6.0); HEMATOCRIT 25.7 % (38.2-49.6); HEMOGLOBIN 7.8 g/dL (14.0-18.0); LYMPHOCYTES # (AUTO) 1.5 (1.0-3.2); LYMPHOCYTES % 21.8 % (18.0-39.1); MEAN CORPUSCULAR HEMOGLOBIN 25.2 pg (28-32); MEAN CORPUSCULAR HGB CONC 30.4 g/dL (31-35); MEAN CORPUSCULAR VOLUME 82.9 fL (81-99); MONOCYTES # (AUTO) 0.8 (0.2-0.8); MONOCYTES % 11.9 % (4.4-11.3); NEUTROPHILS # (AUTO) 4.3 (2.1-6.9); NEUTROPHILS % 63.6 % (38.7-80.0); PLATELET COUNT 309 x10e3/uL (140-360)
[2020-04-15] MEDS: FUROSEMIDE INJ 10 MG/ML 4 ML VIAL IV SCH ×3 (06:37→20:12)
[2020-04-15 06:56] LABS: ALANINE AMINOTRANSFERASE 22 IU/L (0-55); ALBUMIN 2.1 g/dL (3.5-5.0); BLOOD UREA NITROGEN 52 mg/dL (7-26); BUN/CREATININE RATIO 50 (6-25); CALCIUM 8.6 mg/dL (8.4-10.2); CARBON DIOXIDE 40 mmol/L (22-29); CHLORIDE 92 mmol/L (98-107); CREATININE, SERUM 1.03 mg/dL (0.72-1.25); EST GLOMERULAR FILTRATION RATE > 60 ML/MIN (60-); GLUCOSE 117 mg/dL (74-118); SODIUM 139 mmol/L (136-145)
[2020-04-15 06:57] LABS: ALBUMIN/GLOBULIN RATIO 0.4 (0.8-2.0); ALKALINE PHOSPHATASE 153 IU/L (40-150)
[2020-04-15] MEDS: FENTANYL 2,000 MCG/250 ML BAG IV PRN (07:30)
[2020-04-15] MEDS: INSULIN LISPRO 100 UNIT/1 ML 3ML VIAL SQ SCH ×4 (07:30→21:00)
[2020-04-15] MEDS: ENOXAPARIN INJ 80 MG/0.8 ML SYR SC SCH ×2 (09:34→20:12)
[2020-04-15] MEDS: SODIUM HYPOCHLORITE 0.25% 480 ML SOLN IR SCH (09:34)
[2020-04-15] MEDS: INSULIN GLARGINE 100 UNITS/ML VIAL SQ SCH ×2 (09:39→21:00)
--- NOTE | 2020-04-15 14:29 | NUR ---
WITH ANESTHESIA HERE FOR CONSULT FOR DR.LETSOU UREÑA IN UNIT SPOKE AT LENGTH WITH REGARDING POC
--- NOTE | 2020-04-15 15:18 | Progress Note ---
DATE: SUBJECTIVE: The patient is still on a mechanical ventilator. He requires spontaneous breathing trials for 1-2 hours a day. Repeat CT scan yesterday showed worsening loculated pneumothoraces. PHYSICAL EXAMINATION: VITAL SIGNS: The patient is afebrile. The blood pressure is 167/105, saturation is 97%, pulse is 105. HEENT: Shows no facial swelling or erythema. CARDIAC: Reveals regular rate and rhythm with normal S1, S2. There are no murmurs or rubs heard. LUNGS: Revealed decreased breath sounds at the bases. There is no wheezing. ABDOMEN: Soft, nontender. There is no rebound or guarding. EXTREMITIES: Show no leg edema or calf tenderness. There is no cyanosis or clubbing. SKIN: Shows no rashes. NEUROLOGIC: Shows some left hemiparesis. LABORATORY DATA: White blood cell count is 6.7, hemoglobin is 7.8, and the platelet count is 309. The BUN:creatinine ratio is 52:1.03. The other electrolytes are within normal limits. Albumin is 2.1. IMPRESSION: 1. Loculated right pneumothoraces. 2. Acute respiratory failure. 3. Cerebrovascular accident. 4. Anemia secondary to chronic blood loss. 5. Deep vein thrombosis. 6. Decubitus ulcer. PLAN: 1. Case discussed with Dr. Mclaughlin and Anesthesia. 2. The patient will need either a video-assisted thoracoscopy or a thoracotomy in order to remove the adhesions and re-expand the lung. Because of the limitations of our hospital, it is advisable to transfer the patient to [facility]. 3. Continue spontaneous breathing trial. 4. Continue wound care. 5. Continue enteral feedings. 6. Continue Lovenox. Severiano Crow MD [facility]/MODL /[id number]
--- NOTE | 2020-04-15 16:33 | Progress Note ---
DATE: SUBJECTIVE: Mr. Love remains in intensive care unit. His pneumothorax apparently is getting worse. I reviewed the CAT scan and x-ray with the radiologist. PHYSICAL EXAMINATION: GENERAL: The patient remains not fully alert. VITAL SIGNS: Stable. HEENT: He is not icteric. NECK: Supple. CHEST: Few crackles. COR: S1 and S2. No S3, S4, or murmurs. ABDOMEN: Soft. IMPRESSION: Pneumothorax, trapped. The patient was seen by Dr. Mclaughlin. Please refer to his note in the chart. Discussed with Critical Care. Status post COVID-19 with multiple complications including deep venous thrombosis, pulmonary embolism, possibly cerebrovascular accident. We will follow. MD HARVEY Alexis/MODL /[id number]
--- NOTE | 2020-04-15 16:35 | NUR ---
Nutrition Intervention Note RD Recommendation(s) for Physician: - Recommend continuing Vital High Protein at goal rate of 70 mL/hr (provides 1680 kcal, 147 g protein, and 1404 mL water per day). - Water flushes per MD. Plan of Care: RD following, monitoring for tolerance and adequacy. TF recs. Nutrition reason for involvement: follow up RD Assessment 04/15: Follow up. Pt is tolerating TF @ goal rate of 70 mL/hr per RN. Recommend to continue current tube feed regimen. Will continue to monitor. 04/11: Follow up. Pt continues to tolerate TF at goal rate of 70 ml/hr. Pt discussed with RN, pt had BMs this am. Chart reviewed, possible CT surgery and pending SNF. Continues to meet kcal and protein needs. Will continue to monitor. 04/07: Follow up. Pt is tolerating tube feeding at 60 mL/hr. Pt is no longer going to be receiving propofol per RN; therefore, recommend increasing tube feeding to 70 mL/hr. Informed RN of recommendation. Will continue to monitor. 04/04: Follow up. Pt discussed during am MDR. Pt remains on vent via trach, tolerating TF at goal rate of 60 ml/hr per RN. Pt continues on Propofol at 12 ml/hr. Recommend continue current TF goal rate, additional kcal provided from Propofol. Chart reviewed. Will continue to monitor. 03/31: Follow up. Per chart, pts trach was replaced yesterday. Pt is receiving propofol @ 12 mL/hr per RN which provides 317 kcal. Pt is tolerating Vital High Protein @ 45 mL/hr at this time. Recommend increasing rate towards goal rate as medically appropriate. Will continue to monitor 03/28: Follow up. Pt remains intubated and sedated, currently on Fentanyl drip and Propofol drop. Pt s/p cardiopulmonary arrest yesterday requiring CPR and subsequent bilateral chest tube placement. Pt now intubated and trach removed. TF remains off currently, noted last documented TF of 520 ml total received on 03/27. TF rec's provided when feasible to resume. Will continue to monitor. 03/24: Follow up. Pt remains intubated and sedated. Pt is currently receiving propofol @ 37.4 ml/hr per RN which provides 987 kcal. Per MD note, pt is planned to receive a trach and PEG today; therefore, tube feeding is on hold at this time. Will continue to monitor. 03/21: Follow up. Pt remains intubated and sedated, currently on Propofol and Versed. Pt off, CPAP trials, plan to resume TF per RN. Plan for trach placement tomorrow. Chart reviewed. Discussed TF rec's with RN on unit as pt not meeting protein needs and Propofol providing additional kcal. Will continue to monitor. 03/17: Follow up. Pt remains intubated and is sedated on propofol @ 21.8 mL/hr which provides 575 kcal. Pt is tolerating tube feeding and is receiving Nepro @ 40 mL/hr. Recommend modifying formula to Vital High Protein. Informed RN of recommendation. Will continue to monitor. 03/13: Follow up. Pt remains intubated and sedated, off Propofol and continues on Fentanyl drip. Pt continues on TF of Nepro at 40 ml/hr, no dialysis initiated and renal trend improving. TF meeting current estimated needs. Current rec's remain appropriate. Chart reviewed. Will continue to monitor. 03/08: Follow up. Pt remains intubated and sedated on Propofol and Fentanyl drips. No pressor support. Pt on TF of Nepro at 40 ml/hr. Renal trend noted, no dialysis currently. TF meeting estimated kcal and protein needs per current renal trend. TF rec's provided pending dialysis initiation and continued Propofol use. Chart reviewed. Will continue to monitor. 03/03: Follow up. Pt remains mechanically ventilated. Pt is receiving Glucerna 1.2 @ 40 ml/hr per chart. Pt is receiving 26.7 mL/hr of propofol which provides 705 kcal. Recommend modifying formula to Vital High Protein. Will continue to monitor. 02/28: Follow up. Pt remains intubated, sedated with Propofol and fentanyl drip. Pt not currently on pressors. TF currently off per am documentation, previously infusing at 20 ml/hr on 02/27 and 02/26- not meeting needs. Pt with increased water flushes per MD 2/2 hypernatremia. Chart reviewed. TF rec's relayed to RN. Will continue to monitor. 02/24: Follow up. Pt remains mechanically ventilated. Per RN, pt is tolerating tube feeding of Glucerna 1.2 @ 40 mL/hr. Recommend modifying formula to Vital High Protein. RD recommendation provided to nurse. Will continue to monitor. 02/20: 35 YOM admitted for hypoxemia, hyperglycemia with PMH listed below. Physical visit was deferred d/t hospitals infection disease policy. Pt is intubated on fentanyl and propofol. Pt is not on pressors as of now. The nurse reported the pt was ordered pressors over the weekend but has not needed it today. Nurse reported possible ARDS, they have not had to place the pt in the prone position yet. Pt was ordered Glucerna 1.2 at 20 ml/hr advance to goal rate of 60 ml/hr with 100 ml of water every 4 hours (1728 kcal, 86gram protein) . RD recommendations provided above and given to nurse. Unaware of propofol rate d/t not being able to enter the room and nurse not knowing at current time. Nurse reported the pt is currently on 20 ml/hr of Glucerna 1.2. Will continue to monitor. Principal Problems/Diagnoses: hypoxemia, hyperglycemia PMH: Uncontrolled type 2 diabetes mellitus. GI: last BM 04/15 Skin: unstagable sacral PU Labs: 04/15: Na 139, K 4.0, BUN 52, Cr 1.03m Glu 117 04/11: Na 136, K 4.3, BUN 45, Cr 0.91, Gluc 179, POC Gluc 182-206 04/07: Na 136, K 3.8, BUN 25, Cr 0.77, Glu 163 04/04: Na 135, K 3.7, BUN 25, Cr 1.04, Gluc 163, Ca 8.1 03/31: Na 144, K 3.4, BUN 21, Cr 0.84, Glu 119 03/28: Na 148, K 4, BUN 27, Cr 0.88, Gluc 119, POC Gluc 131-152 03/24: Na 142, K 3.9, BUN 22, Cr 0.76, Glu 127 03/21: Na 145, K 3.9, BUN 22, Cr 0.88, Gluc 186, POC Gluc 98- 200 03/17: Na 144, K 3.8, BUN 26, Cr 0.86. Glu 200 03/13: Na 141, K 3.6, BUN 39, Cr 1.13, Gluc 245, POC Gluc 261-286 03/08: Na 142, K 4.4, BUN 54, Cr 1.42, Gluc 323, POC Gluc 316-336 Meds: metoprolol, insulin, lovenox, fentanyl, lasix Ht:71 in Wt: 232 lbs (04/15) 238 lbs (04/07) 233.5 lbs (04/04) 231 lbs (03/31) 225 lbs (03/24) 220 lbs (03/17) 212 lbs (02/27) 215 lbs (02/23) 213 lb (02/20) BMI:32.4 kg/m^2 IBW:172 lbs Malnutrition Evaluation (04/11) -unable to perform nutrition assessment Nutrition Prescription (Diet Order): TF: Vital HP at 70 ml/hr (1680 kcal, 147 g protein) Estimated Nutritional Needs: Calories: 2200-5138 kcal/day (20- 25 kcal/kg/day) Weight used : IBW (78 kg) Protein : 94 156 g protein/day (1.2-2 gram/kg/day ) Weight used: IBW (78 kg) Diet Adequacy: meeting calorie needs, meeting protein needs Diet Education Needs Assessment: Diet education not indicated, patient on temporary/transition diet. Nutrition Care Level: moderate Nutrition Diagnosis: Inadequate energy intake related to medical condition as evidenced by the pt needing mechanical ventilation and need for TF to meet energy and protein needs. Goal: Patient will meet 75-100% of estimated needs by follow up Progress: goal met Interventions: -TF (Composition, Rate, Route), Recommended Modifications, Collaboration with other providers Monitoring/Evaluation: -Total energy intake, Total protein intake, Formula/Solution Signed: Hazel Alonzo, RD, LD
[2020-04-15] MEDS: QUETIAPINE FUMARATE 25 MG TAB PEG SCH (20:12)
--- NOTE | 2020-04-15 20:42 | NUR ---
TRANSFER TO [facility] HAS BEEN INITIATED. ROOM HAS BEEN OPENED UP FOR PT (7CA 7A03). PT TO TRANSFER VIA EMS. DR. Terra CABRAL, DR. KUMAR, DR. MENDEZ, AND DR. YUNG NOTIFIED. REPORT GIVEN TO RN JOSHUA @ [facility] @ [phone]. WILL CALL RN BACK WHEN PT IS EN ROUTE. CURRENT VITALS TEMP 98.9 CORE, HR 99, O2 98%, BP 168/97, RR 20. TRACH TO VENT SETTINGS: 45%, 5, 18, 420. BS 113-TF'S ON HOLD SO NO ADDITIONAL TREATMENT (INSULIN HELD), LASIX 80 MG,80 MG LOVENOX, AND ATIVAN 1MG ADMINISTERED. PTS FAMILY (SUJATA AND NIKKO) UPDATED AND AGREE WITH TRANSFER. PT DISPLAYS UNDERSTANDING OF TRANSFER. PT IS CALM, NO DISTRESS NOTED. Addendum: 04/16/20 at 0024 by An nMarie Gabriel RN EMS ARRIVED, PT STABLE TO TRANSFER, PT IS CALM AND NO DISTRESS NOTED. RT AT BEDSIDE WITH PRIMARY RN. NOTIFIED FAMILY AND [facility] PT IS EN ROUTE.
--- NOTE | 2020-04-17 11:27 | NUR ---
Dictated DC summary: [id number]
--- NOTE | 2020-04-17 12:52 | Discharge Summary ---
ADMIT DIAGNOSES: 1. Sepsis secondary to bilateral pneumonia. 2. Leukopenia, likely secondary to sepsis. 3. Uncontrolled type 2 diabetes mellitus. 4. Acute renal insufficiency, likely secondary to acute tubular necrosis. 5. Viral syndrome. DISCHARGE DIAGNOSES: 1. Acute hypoxic respiratory failure secondary to bilateral COVID-19 pneumonia, resolving. 2. Bilateral COVID-19 viral pneumonia, resolved. 3. Chronic respiratory failure (ventilator dependent). 4. Type 2 diabetes mellitus. 5. Right lower extremity deep venous thrombosis. 6. Anemia secondary to chronic disease. 7. Hypertensive heart disease. 8. Mild obesity, BMI 32. 9. Acute renal insufficiency secondary to acute tubular necrosis, resolved. 10. Left hemiparesis, likely secondary to cerebrovascular accident. 11. Status post cardiopulmonary arrest (March 27, 2020) secondary to profound hypoxia, resolved. 12. Sepsis secondary to bilateral pneumonia, resolved. 13. Leukopenia secondary to sepsis, resolved. 14. Persistent right-sided loculated pneumothoraces requiring tube thoracostomy. 15. Unstageable sacral decubitus ulcer (10 x 15 cm). 16. Status post tracheostomy tube placement twice. 17. Status post G-tube placement. HOSPITAL COURSE: This is a 35-year-old man, who had underlying known medical history of type 2 diabetes mellitus. He initially presented to [facility] Emergency Room with viral syndrome type symptoms. He was initially admitted with a diagnosis of sepsis secondary to bilateral pneumonia as well as leukopenia from sepsis. On admission, he was diagnosed with acute renal insufficiency, likely secondary to acute tubular necrosis. It was initially thought on admission that he had viral syndrome. During his hospitalization, he was found to be COVID-19 positive. The patient subsequently developed acute hypoxic respiratory failure secondary to bilateral COVID-19 pneumonia necessitating endotracheal intubation. The patient was intubated and on a ventilator for at least three weeks when the decision was made to proceed with elective tracheostomy tube placement. Also during this hospitalization, the patient underwent G-tube placement. The patient was checked numerous times for his COVID-19 status and he continued to be positive. However, he finally had two consecutive negative tests on April 02, 2020 and April 05, 2020, respectively. During this hospitalization, the patient unfortunately developed bilateral pneumothoraces that were found to be loculated on a CT of the chest. The patient had bilateral tube thoracostomies placed because of these pneumothoraces. During this hospitalization, namely March 27, 2020, the patient had an episode of cardiopulmonary arrest secondary to severe hypoxia. It was unclear whether this cardiopulmonary arrest was precipitated by his bilateral pneumothoraces or from bleeding in the tracheostomy tube. However, the patient was successfully resuscitated via full ACLS protocol. After this cardiopulmonary arrest, the patient was found to have left-sided hemiparesis. Repeat CT of the brain did not reveal any acute intracranial abnormalities. The patient had his tracheostomy tube replaced by the same surgeon who placed it initially, namely Dr. Osmin Jackson. Also, Dr. Pablo Rodriguez was the dependency case manager who placed the G-tube. During this hospitalization, the patient was seen by Infectious Disease specialist, namely Dr. Hillman. Moreover, the patient was managed daily by the painter set, namely Dr. Severiano Crow. Dr. Severiano Crow placed bilateral tube thoracostomies because the patient has bilateral loculated pneumothoraces. The patient was following simple commands on day of his discharge, but still could only minimally move his left hand and left foot on command. The patient also developed unstageable sacral decubitus ulcer during this hospitalization. The patient did receive daily wound care to the sacral wound by the nursing staff or the wound care team. The patient was found to have acute right lower extremity deep venous thrombosis during the hospitalization, thus he initially received intravenous heparin and later it was transitioned to subcutaneous enoxaparin. The patient did develop acute on chronic anemia and was transfused 2 units of packed red blood cells on April 08, 2020. The patient was started on famotidine 40 mg intravenous twice a day. Hemoccult stool was performed twice and it was negative. Initially, the patient was going to be transferred to a long-term acute care facility namely [facility] in [place], [place], but due to financial reasons, this transfer never occurred. The patient's left- sided pneumothoraces resolved, thus the tube thoracostomies were removed. Unfortunately, he continued to have persistent right-sided loculated pneumothoraces, thus a cardiothoracic surgeon was consulted, namely Dhiraj Mclaughlin to address this problem. Dr. Mclaughlin decided to have the patient transfer to [facility] in [facility] so that video-assisted thoracoscopy surgery could be performed safely. Thus, the patient was transferred to [facility] in [facility] so that VATS could be performed safely. CONDITION ON DISCHARGE: The patient's condition on discharge was stable with overall fair prognosis. DISCHARGE MEDICATIONS: 1. Lorazepam 1 mg every 2 hours as needed for agitation. 2. Fentanyl citrate intravenous as needed for sedation. 3. Metoprolol tartrate 25 mg every 6 hours. 4. Famotidine 40 mg intravenous twice a day. 5. Lantus insulin 20 units subcutaneous every 2 hours. 6. Acetaminophen 650 mg every 6 hours as needed for fever greater than 99.5 degrees Fahrenheit. 7. Enoxaparin 80 mg subcutaneous twice a day. 8. Furosemide 80 mg intravenous twice a day. 9. Mupirocin applied to the tracheostomy stoma site twice a day. FOLLOWUP INSTRUCTIONS: As previously stated, the patient was transferred to [facility] in [facility] where he would be under the care of Dr. Dhiraj Mclaughlin. At this hospital, the patient would be able to undergo VATS. When the patient was discharged, he did have right-sided tube thoracostomies in place. MD OLVIN Blackburn/FREDY /[id number] cc: MD Severiano Chatman MD Zaher Shebib, MD [id number]
== END 2020-04-15 22:00 | disposition short-term general hospital (02) | DRG 4 ==
LOC: ER 13:26 → ERHOLD 18:36 → ICU 21:38
PROVIDERS: ADMIT Internal Medicine; ATTEND Internal Medicine
PROC: 5A1955Z Respiratory Ventilation, Greater than 96 Consecutive Hours (ICD-10-PCS; principal; 2020-02-19)
PROC: 0BH17EZ Insertion of Endotracheal Airway into Trachea, Via Natural or Artificial Opening (ICD-10-PCS; 2020-02-19)
PROC: 02HV33Z Insertion of Infusion Device into Superior Vena Cava, Percutaneous Approach (ICD-10-PCS; 2020-02-19)
PROC: B548ZZA Ultrasonography of Superior Vena Cava, Guidance (ICD-10-PCS; 2020-02-19)
PROC: 3E043XZ Introduction of Vasopressor into Central Vein, Percutaneous Approach (ICD-10-PCS; 2020-02-19)
PROC: 8E0ZXY6 Isolation (ICD-10-PCS; 2020-02-19)
PROC: 0BJ08ZZ Inspection of Tracheobronchial Tree, Via Natural or Artificial Opening Endoscopic (ICD-10-PCS; 2020-02-27)
PROC: 0CJS8ZZ Inspection of Larynx, Via Natural or Artificial Opening Endoscopic (ICD-10-PCS; 2020-02-27)
PROC: 02HV33Z Insertion of Infusion Device into Superior Vena Cava, Percutaneous Approach (ICD-10-PCS; 2020-03-02)
PROC: B548ZZA Ultrasonography of Superior Vena Cava, Guidance (ICD-10-PCS; 2020-03-02)
PROC: 30233N1 Transfusion of Nonautologous Red Blood Cells into Peripheral Vein, Percutaneous Approach (ICD-10-PCS; 2020-03-04)
PROC: 30233N1 Transfusion of Nonautologous Red Blood Cells into Peripheral Vein, Percutaneous Approach (ICD-10-PCS; 2020-03-15)
PROC: 02HV33Z Insertion of Infusion Device into Superior Vena Cava, Percutaneous Approach (ICD-10-PCS; 2020-03-16)
PROC: B548ZZA Ultrasonography of Superior Vena Cava, Guidance (ICD-10-PCS; 2020-03-16)
PROC: 0B110F4 Bypass Trachea to Cutaneous with Tracheostomy Device, Open Approach (ICD-10-PCS; 2020-03-24)
PROC: 0DH63UZ Insertion of Feeding Device into Stomach, Percutaneous Approach (ICD-10-PCS; 2020-03-24)
PROC: 0W9930Z Drainage of Right Pleural Cavity with Drainage Device, Percutaneous Approach (ICD-10-PCS; 2020-03-27)
PROC: 5A12012 Performance of Cardiac Output, Single, Manual (ICD-10-PCS; 2020-03-27)
PROC: 5A1955Z Respiratory Ventilation, Greater than 96 Consecutive Hours (ICD-10-PCS; 2020-03-27)
PROC: 0BP1XFZ Removal of Tracheostomy Device from Trachea, External Approach (ICD-10-PCS; 2020-03-27)
PROC: 0W9B00Z Drainage of Left Pleural Cavity with Drainage Device, Open Approach (ICD-10-PCS; 2020-03-28)
PROC: 30233N1 Transfusion of Nonautologous Red Blood Cells into Peripheral Vein, Percutaneous Approach (ICD-10-PCS; 2020-03-28)
PROC: 30233N1 Transfusion of Nonautologous Red Blood Cells into Peripheral Vein, Percutaneous Approach (ICD-10-PCS; 2020-03-28)
PROC: 0B21XFZ Change Tracheostomy Device in Trachea, External Approach (ICD-10-PCS; 2020-03-30)
PROC: 0W9930Z Drainage of Right Pleural Cavity with Drainage Device, Percutaneous Approach (ICD-10-PCS; 2020-03-31)
PROC: 30233N1 Transfusion of Nonautologous Red Blood Cells into Peripheral Vein, Percutaneous Approach (ICD-10-PCS; 2020-04-04)
PROC: 0B9P30Z Drainage of Left Pleura with Drainage Device, Percutaneous Approach (ICD-10-PCS; 2020-04-05)
PROC: 0B9N30Z Drainage of Right Pleura with Drainage Device, Percutaneous Approach (ICD-10-PCS; 2020-04-05)
PROC: 0WP9X0Z Removal of Drainage Device from Right Pleural Cavity, External Approach (ICD-10-PCS; 2020-04-05)
PROC: 30233N1 Transfusion of Nonautologous Red Blood Cells into Peripheral Vein, Percutaneous Approach (ICD-10-PCS; 2020-04-07)
PROC: 30233N1 Transfusion of Nonautologous Red Blood Cells into Peripheral Vein, Percutaneous Approach (ICD-10-PCS; 2020-04-07)
PROC: 30233N1 Transfusion of Nonautologous Red Blood Cells into Peripheral Vein, Percutaneous Approach (ICD-10-PCS; 2020-04-14)
DX: U07.1 COVID-19 (principal); A41.89 Other specified sepsis; J12.89 Other viral pneumonia; R65.20 Severe sepsis without septic shock; N17.0 Acute kidney failure with tubular necrosis; J93.0 Spontaneous tension pneumothorax; J80 Acute respiratory distress syndrome; K29.71 Gastritis, unspecified, with bleeding; E11.10 Type 2 diabetes mellitus with ketoacidosis without coma; J15.6 Pneumonia due to other Gram-negative bacteria; J69.0 Pneumonitis due to inhalation of food and vomit; J86.9 Pyothorax without fistula; I46.9 Cardiac arrest, cause unspecified; I50.31 Acute diastolic (congestive) heart failure; I63.9 Cerebral infarction, unspecified; J96.21 Acute and chronic respiratory failure with hypoxia; I82.411 Acute embolism and thrombosis of right femoral vein; I82.431 Acute embolism and thrombosis of right popliteal vein; I82.441 Acute embolism and thrombosis of right tibial vein; E87.0 Hyperosmolality and hypernatremia; D62 Acute posthemorrhagic anemia; E44.0 Moderate protein-calorie malnutrition; J90 Pleural effusion, not elsewhere classified; Z99.11 Dependence on respirator [ventilator] status; G72.81 Critical illness myopathy; J95.01 Hemorrhage from tracheostomy stoma; J94.2 Hemothorax; G93.1 Anoxic brain damage, not elsewhere classified; G81.94 Hemiplegia, unspecified affecting left nondominant side; J93.82 Other air leak; I13.0 Hypertensive heart and chronic kidney disease with heart failure and stage 1 through stage 4 chronic kidney disease, or unspecified chronic kidney disease; L89.150 Pressure ulcer of sacral region, unstageable; E11.65 Type 2 diabetes mellitus with hyperglycemia; K20.9 Esophagitis, unspecified; Z83.3 Family history of diabetes mellitus; E11.42 Type 2 diabetes mellitus with diabetic polyneuropathy; N18.9 Chronic kidney disease, unspecified; E11.22 Type 2 diabetes mellitus with diabetic chronic kidney disease; A60.01 Herpesviral infection of penis; E87.5 Hyperkalemia; R53.81 Other malaise; E66.9 Obesity, unspecified; D63.8 Anemia in other chronic diseases classified elsewhere; Z91.14 Patient's other noncompliance with medication regimen; Z68.32 Body mass index [BMI] 32.0-32.9, adult
CPT/HCPCS: 31500; 32557; 36415; 36569; 36584; 36600; 43246; 70450; 71045; 71250; 71260; 74018; 74470; 76604; 77012; 80048; 80053; 80061; 80076; 80202; 81001; 81015; 82270; 82550; 82553; 82570; 82607; 82728; 82746; 82805; 82948; 83036; 83518; 83540; 83605; 83690; 83735; 83874; 83880; 84100; 84145; 84146; 84156; 84300; 84466; 84484; 85014; 85018; 85025; 85045; 85379; 85384; 85610; 85730; 86022; 86140; 86850; 86900; 86920; 87040; 87070; 87086; 87252; 87400; 87529; 87633; 87635; 92523; 92950; 93005; 93306; 93880; 93970; 93971; 94002; 94003; 95812; 96372; 97139; 99251; 99284; C1769; J0171; J0330; J0456; J0692; J0696; J1450; J1644; J1650; J1756; J1815; J1817; J1940; J2001; J2020; J2060; J2250; J2765; J2916; J2920; J2997; J3010; J3370; J7030; J7040; J7050; P9016; P9047; Q9967

== ENCOUNTER 2020-06-12 16:32 | Inpatient (IN) | payer SELFPAY ==
[~2020-06-12] VITALS: Ht 180.3 cm; Wt 58.5 kg
[2020-06-12 15:30] VITALS: BP 141/94
--- NOTE | 2020-06-12 16:40 | NUR ---
ASSUMED CARE AT 1515. PATIENT ARRIVED TO UNIT. AAOX3. AYCANOTIC. RESTING IN BED WITH HOB SLIGHTLY ELEVATED. O2 AT 6L VIA TRACH COLLAR. NO DISTRESS NOTED. CALL LIGHT IN REACH. SIDE RAILS UP X2. BED LOW AND LOCKED.
[2020-06-12 17:11] VITALS: BP 141/94
[2020-06-12] MEDS ORDERED: DEXTROSE 50% SYRINGE 50 ML IV PRN (17:15)
--- NOTE | 2020-06-12 17:26 | Diagnostic Imaging Report ---
EXAMINATION: CHEST SINGLE (PORTABLE) INDICATION: ^chronic respiratory failure ^[id number] ^1641 ^Y COMPARISON: 04/13/2020 FINDINGS: TUBES and LINES: Tracheostomy tube. LUNGS: Chronic appearing changes in the right chest with small right pleural effusion. Linear radiopaque metallic density over the right mid chest could be postsurgical. PLEURA: No pneumothorax is seen. HEART AND MEDIASTINUM: The cardiomediastinal silhouette is unremarkable. BONES AND SOFT TISSUES: No acute osseous lesion. Soft tissues are unremarkable. UPPER ABDOMEN: No free air under the diaphragm. IMPRESSION: Chronic appearing changes in the right chest with small right pleural effusion. Linear radiopaque metallic density over the right mid chest could be postsurgical. Signed by: Dr. Silver Lacy M.D. on 06/12/2020 5:23 PM
[2020-06-12] MEDS ORDERED: ACETAMINOPHEN 325 MG/10 ML UDC GT PRN (18:00)
--- NOTE | 2020-06-12 18:05 | History and Physical ---
CHIEF COMPLAINT: "I have been in the hospital long time." HISTORY OF PRESENT ILLNESS: This is a 35-year-old man, who initially was diagnosed with bilateral COVID-19 viral pneumonia on February 18, 2020. The patient subsequently went to respiratory failure and was placed on a ventilator. The patient had a long complicated hospital course after that event. The patient unfortunately experienced a cardiac arrest on March 27, 2020, but was successfully resuscitated using ACLS protocol. The patient also suffered a cerebrovascular accident during that hospitalization that left him with residual left hemiparesis. The patient also developed an unstageable sacral decubitus ulcer during the hospital stay. The patient was transferred to [facility] because he required thoracotomy due to persistent right-sided loculated pneumothoraces. Also during [facility] hospitalization, he had a tracheostomy tube placed (actually twice) and a G-tube placed. The patient has been hospitalized at [facility] since April 15, 2020. The patient returns today for aggressive physical therapy in regard to his significant physical deconditioning. The patient also is n.p.o. because he is experiencing dysphagia. The patient has made significant improvement in the last month. At [facility], the patient did undergo right thoracotomy for decortication on April 24, 2020. He had a chest wall hematoma evacuated on May 11, 2020. Also during that hospitalization at [facility], he was diagnosed with aspergillosis and was started on voriconazole on May 05, 2020. The Infectious Disease specialist recommended 12 weeks therapy. Thus, he has completed 6 weeks of that 12-week therapy regimen. He also had a retrievable IVC filter placed because of his persistent right lower extremity deep venous thrombosis. He is also on oral apixaban in the form of Eliquis for his deep venous thrombosis. He has now developed a stage IV sacral ulcer. REVIEW OF SYSTEMS: GENERAL: The patient has lost 50 pounds since February 18, 2020. He still has low-grade fevers. Denies any chills. HEENT: No headaches. No visual changes. CARDIOVASCULAR/RESPIRATORY: Denies any shortness of breath or cough. At times, he states it is nonproductive. He is on a trach collar. He has been off a ventilator for a week. GI: He has a G-tube in place. The patient states he would like to swallow. Denies any nausea or vomiting. He denies any diarrhea, but at times he does have constipation. : Servin catheter is removed. The patient states he voids with no problem. NEUROMUSCULAR: The patient states he does ambulate slowly with physical therapy using a rolling walker. PAST MEDICAL HISTORY: 1. Type 2 diabetes mellitus. 2. COVID-19 viral infection, resolved. 3. Chronic respiratory failure with tracheostomy tube in place. 4. Physical deconditioning. 5. Pulmonary aspergillosis. 6. Right lower extremity deep venous thrombosis. 7. Stage IV sacral decubitus ulcer. 8. COVID-19 pneumonia with adult respiratory distress syndrome, resolved. 9. Right lower extremity venous thrombosis. PAST SURGICAL HISTORY: 1. Left hand surgery that was performed before his hospitalization in January 2020. 2. G-tube placement. 3. Tracheostomy tube placement (twice). 4. Right thoracotomy for decortication on April 24, 2020. 5. Chest wall hematoma evacuation on May 11, 2020. 6. Bilateral likely pneumothoraces requiring chest tube placements. 7. Retrievable IVC filter placed because of right lower extremity deep venous thrombosis. FAMILY HISTORY: Multiple family members with diabetes mellitus. SOCIAL HISTORY: He is single. He lives with his father and brother. He works at a local [employer]. He denies any tobacco use. He states drinks alcohol socially. ALLERGIES: NO KNOWN DRUG ALLERGIES. CURRENT MEDICATIONS: Medications that will be continued during this hospitalization: 1. Acetaminophen 650 mg Elixir via G-tube every 6 hours p.r.n. temperature greater than 99.4. 2. Apixaban (Eliquis) 5 mg per PEG b.i.d. 3. Cefepime 1 g intravenous every 8 hours for 7 more days. 4. Ipratropium nebulized treatments every 6 hours. 5. Levalbuterol nebulized treatments every 6 hours. 6. Pantoprazole 40 mg per PEG daily. 7. Tramadol 50 mg every 6 hours p.r.n. pain. 8. Voriconazole 200 mg per PEG twice a day for 6 more weeks. 9. Ferrous sulfate 300 mg per PEG daily. PHYSICAL EXAMINATION: GENERAL: He is awake. He is alert. He is oriented. He is very pleasant and cooperative on exam. His cognitive status seems to be at baseline. The patient does not appear to be in any obvious distress. VITAL SIGNS: Blood pressure is 140/94, pulse 104, respiratory rate 16, oxygen saturation 100% on 6 L oxygen via trach collar, and temperature 99.4. Height 5 feet 11 inches, weight 170 pounds, BMI is 24. INTEGUMENT: Skin is warm and dry. Slight pallor. No jaundice or diaphoresis. The patient has a stage IV sacral decubitus ulcer, measuring 12 x 12 cm. HEENT: Anterior sclerae. Moist mucous membranes. NECK: Supple. He has a tracheostomy tube in place connected to trach collar. CARDIOVASCULAR: Sounds tachycardic rate and rhythm. LUNGS: The patient has diminished breath sounds at bases, particularly on the left. He has large well healed longitudinal thoracotomy surgical scar on right flank. ABDOMEN: Soft. He has a G-tube in place, which is functional. He has normal bowel sounds. EXTREMITIES: No edema or deformity. He has muscle wasting. NEUROLOGIC: He has slight left-sided weakness, but he can ambulate with therapy using a rolling walker. DIAGNOSES: 1. Chronic respiratory failure with tracheostomy tube in place. 2. COVID-19 pneumonia with acute respiratory distress syndrome, resolved. 3. Physical deconditioning. 4. Cerebrovascular accident with residual left hemiparesis. 5. Enterobacter cloacae urinary tract infection. 6. Pulmonary aspergillosis. 7. Anemia secondary to chronic disease. 8. Type 2 diabetes mellitus. 9. Stage IV sacral decubitus ulcer. 10. Right lower extremity deep venous thrombosis. PLAN: 1. We will proceed with wound care to the patient's sacral decubitus ulcer. 2. We will continue oral voriconazole 200 mg twice a day for 6 more weeks to complete 12 weeks therapy for his pulmonary aspergillosis. 3. We will administer intravenous cefepime for 7 more days to treat the Enterobacter cloacae urine tract infection. 4. Consult Pulmonary, namely Dr. Severiano Crow to address his chronic respiratory failure and likely decannulate his tracheostomy tube in the near future. 5. We will use G-tube. We will continue tube feeds at this time. 6. We will have speech therapy to do a bedside swallow evaluation with modified barium swallow if necessary, so we can start feeding this gentleman orally. 7. We will continue Eliquis 5 mg per G-tube twice a day for a total of 6 months in regard to his right lower extremity deep venous thrombosis. 8. We will proceed with aggressive physical therapy. 9. Blood glucose monitoring control. 10. We will optimize the patient's nutritional status. 11. Continue nebulized treatments. I spent an hour and 10 minutes in the care of this patient. MD OLVIN Blackburn/FREDY /[id number] MTDD
--- NOTE | 2020-06-12 19:35 | NUR ---
BEDSIDE SHIFT REPORT RECEIVED FROM DAY RN. PT HAS SHILEY TRACH CUFFED. RESPIRATIONS ARE EVEN AND UNLABORED. GT INTACT. NEPRO 55 ML/HR TO BE STARTED VIA GTUBE. PT INCONTINENT OF BOWEL. PT VOIDING PER URINAL. URINE CLEAR YELLOW. 20 G SL LEFT ARM.PT DENIES PAIN. CALL LIGHT WITHIN REACH. BED IN LOW POSITION.
[2020-06-12 20:00] VITALS: BP 164/97
[2020-06-12 21:00] VITALS: BP 164/97
[2020-06-12] MEDS ORDERED: INSULIN LISPRO 100 UNIT/1 ML 3ML VIAL SQ SCH (21:00)
[2020-06-12] MEDS: CEFEPIME 1GM/NS 0.9% 50 ML 50 ML IV SCH (21:11)
[2020-06-12] MEDS ORDERED: SODIUM CHLORIDE 0.9% 250ML 250 ML ONE (21:23)
[2020-06-13] VITALS (7 sets, daily range): BP systolic 130–155; BP diastolic 88–94
[2020-06-13] MEDS: INSULIN LISPRO 100 UNIT/1 ML 3ML VIAL SQ SCH ×4 (00:26→18:36)
[2020-06-13] MEDS: CEFEPIME 1GM/NS 0.9% 50 ML 50 ML IV SCH ×3 (04:27→20:22)
[2020-06-13 06:31] LABS: BASOPHILS % 0.5 % (0.0-1.0); EOSINOPHILS # (AUTO) 0.1 (0.0-0.4); EOSINOPHILS % 2.7 % (0.0-6.0); HEMATOCRIT 33.2 % (38.2-49.6); HEMOGLOBIN 10.4 g/dL (14.0-18.0); LYMPHOCYTES # (AUTO) 1.2 (1.0-3.2); MEAN CORPUSCULAR HEMOGLOBIN 26.1 pg (28-32); MEAN CORPUSCULAR HGB CONC 31.3 g/dL (31-35); MEAN CORPUSCULAR VOLUME 83.2 fL (81-99); MONOCYTES # (AUTO) 0.5 (0.2-0.8); MONOCYTES % 13.4 % (4.4-11.3); NEUTROPHILS # (AUTO) 2.2 (2.1-6.9); NEUTROPHILS % 54.2 % (38.7-80.0); PLATELET COUNT 188 x10e3/uL (140-360); RED BLOOD COUNT 3.99 x10e6/uL (4.3-5.7); RED CELL DISTRIBUTION WIDTH 14.7 % (11.7-14.4)
[2020-06-13 06:54] LABS: INR 1.05; PROTHROMBIN TIME 14.3 seconds (11.9-14.5)
[2020-06-13 07:05] LABS: ALANINE AMINOTRANSFERASE 255 IU/L (0-55); ALBUMIN 2.5 g/dL (3.5-5.0); ALBUMIN/GLOBULIN RATIO 0.4 (0.8-2.0); ALKALINE PHOSPHATASE 269 IU/L (40-150); ANION GAP 14.1 mmol/L (8-16); BLOOD UREA NITROGEN 56 mg/dL (7-26); BUN/CREATININE RATIO 53 (6-25); CALCIUM 9.5 mg/dL (8.4-10.2); CARBON DIOXIDE 32 mmol/L (22-29); CHLORIDE 104 mmol/L (98-107); CREATININE, SERUM 1.05 mg/dL (0.72-1.25); EST GLOMERULAR FILTRATION RATE > 60 ML/MIN (60-); GLUCOSE 175 mg/dL (74-118); POTASSIUM 4.1 mmol/L (3.5-5.1); SODIUM 146 mmol/L (136-145)
--- NOTE | 2020-06-13 07:21 | NUR ---
ASSUMED CARE. ACYANOTIC. RESTING IN BED WITH EYES CLOSED. EQUAL RISE AND FALL OF CHEST NOTED WITH EACH RESPIRATION. NO DISTRESS NOTED. CALL LIGHT IN REACH. SIDE RAILS UP X2. BED LOW AND LOCKED.
[2020-06-13] MEDS ORDERED: VORICONAZOLE 200 MG TABLET PO SCH (10:00)
[2020-06-13] MEDS: FERROUS SULFATE 300 MG/5 ML LIQD GT SCH (10:02)
[2020-06-13] MEDS: PANTOPRAZOLE SODIUM 40 MG SUSPDR.PKT GT SCH (10:02)
[2020-06-13] MEDS: APIXABAN 5 MG TABLET GT SCH ×2 (10:02→18:36)
--- NOTE | 2020-06-13 10:08 | Progress Note ---
DATE: 06/13/2020 CHIEF COMPLAINT/HISTORY OF PRESENT ILLNESS: This is a 35-year-old man, whose primary treating diagnosis is pulmonary aspergillosis and chronic respiratory failure with tracheostomy tube in place. The patient previously was diagnosed with COVID-19 pneumonia with acute respiratory distress syndrome, but this is completely resolved. His main issue is physically deconditioned and has a stage IV sacral decubitus ulcer. The patient voiced no complaints. Today's blood work revealed a BUN and creatinine 56 and 1.05 respectively. Today's potassium 4.1, sodium is 146. The patient's AST and ALT 175 and 255 respectively. Alkaline phosphatase is 269. The patient's total bilirubin is 0.3. The patient's white blood cell count today is 4000 with 54% segmented neutrophils. Hemoglobin 10.4 g/dL. Chest film performed yesterday June 12, 2020, revealed chronic changes in the right chest with small right pleural effusion. REVIEW OF SYSTEMS: As per HPI. PHYSICAL EXAMINATION: GENERAL: He is awake. He is alert. He is oriented. He does not appear to be any distress. VITAL SIGNS: Height 5 feet 11 inches, weight 171 pounds, BMI 23. Blood pressure is 155/84, pulse 102, respiratory rate 22, ox saturation 100% on trach collar (9 L a minute), temperature 98.7, and highest temperature yesterday was 99.4. INTEGUMENT: Skin is warm and dry. Slight pallor. No jaundice or diaphoresis. The patient has a 12 x 12 cm stage IV sacral decubitus ulcer that has pink granulation tissue. HEENT: Anicteric sclerae. Moist mucous membranes. NECK: Supple. He has a tracheostomy tube connected to a tracheostomy collar. CARDIOVASCULAR: Distant tachycardic rate with regular rhythm. The patient has an S4 gallop. LUNGS: The patient has diminished breath sounds in the right base. He has adequate air entry bilaterally. ABDOMEN: Soft. His G-tube in place, which is functional. EXTREMITIES: No edema or deformity, but he has muscle wasting. NEUROLOGIC: The patient has residual left arm, left leg weakness from stroke that he suffered in March of 2020. DIAGNOSES: 1. Chronic respiratory failure with tracheostomy tube in place. 2. Coronavirus disease-19 pneumonia with acute respiratory distress syndrome, resolved. 3. Pulmonary aspergillosis. 4. Enterobacter cloacae urinary tract infection. 5. Cerebrovascular accident with residual left hemiparesis. 6. Physical deconditioning. 7. Stage IV sacral decubitus ulcer. 8. Type 2 diabetes mellitus. 9. Anemia secondary to chronic disease. 10. Right lower extremity deep venous thrombosis. 11. Elevated liver enzymes, likely possible hepatic toxicity from the voriconazole. PLAN: 1. Continue intravenous cefepime for the patient's Enterobacter urinary tract infection. 2. Continue oral voriconazole for the patient's pulmonary aspergillosis. 3. Consult Infectious Disease specialist to help with antibiotic guidance/stewardship. 4. Proceed with aggressive physical therapy. 5. Speech therapy will perform a bedside swallow evaluation and modified barium swallow if necessary today. 6. Proceed with wound care to the patient's stage IV sacral decubitus ulcer. 7. We will follow hepatic transaminases since he could be experiencing hepatic toxicity from the voriconazole. 8. Respiratory care. 9. We will attempt to wean patient's oxygen requirements. 10. Continue Eliquis 5 mg twice a day since he has history of right lower extremity deep venous thrombosis. I spent 40 minutes in care of the patient. MD OLVIN Blackburn/FREDY /[id number] MTDD
[2020-06-13] MEDS ORDERED: SODIUM CHLORIDE 0.9% 250ML 250 ML ONE (12:51)
--- NOTE | 2020-06-13 13:08 | NUR ---
MODIFIED BARIUM SWALLOW EXAM IN PROGRESS AT BEDSIDE CURRENTLY
--- NOTE | 2020-06-13 13:20 | NUR ---
WOUND CARE CONSULT FOR 35 YO MALE HX OF chronic pneumothorax CARMEN 13 ON MODERATE PUP STATUS AND INTERVENTIONS AND ALTERNATING PRESSURE MATTRESS LABS: WBC-4.03 HGB_10.4 GLUCOSE-175 SKIN ASSESSMENT COMPLETE PATIENT PRESENTS WITH SACRAL STAGE 3 ULCERATION MEASURES 9CM X8CM X3CM WITH 3CM UNDERMINEING FROM 10 O'CLOCK TO 1 O'CLOCK RECOMMENDATIONS: NURSING TO CONTINUE TO MAINTAIN MODERATE PUP STATUS AND INTERVENTIONS AND ALTERNATING PRESSURE MATTRESS NURSING TO CONTINUE TO ASSIST PATIENT OUT OF BED FOR MEALS AND MUCH TOLERATED NURSING TO CONTINUE TO ASSIST PATIENT NEEDED WITH MEALS AND NUTRITIONAL SUPPLEMENTS TO ENSURE PROPER REQUIREMENTS FOR HEALING NURSING TO CONTINUE TO OFFLOAD FEET AND HEELS NEEDED WITH PILLOW SUSPENSION WHEN IN BED CURRENTLY NURSING CLEANING SACRAL STAGE 3 ULCERATION WITH NORMAL SALINE DAILY AND APPLY WET TO DRY DRESSING RECOMMENDATION FOR NEGATIVE PRESSURE THERAPY TO SACRAL STAGE 3 ULCERATION IF DEEMED SAFE BY Addendum: 06/13/20 at 1337 by Dedrick Chan RN Amended: Links added.
[2020-06-13] MEDS: TRAMADOL HCL 50 MG TAB GT PRN (14:12)
--- NOTE | 2020-06-13 14:39 | Diagnostic Imaging Report ---
Modified Barium Swallow: Clinical History: Aspiration Comparison: None Fluoro time in minutes: 1 minute, 48 seconds Radiation dose: 4.81 mGy air Kerma. Number of images: Multiple Report: The patient ingested various consistencies of barium with a speech pathologist in attendance. A full report from speech pathology will follow. Impression: Fluoroscopy service provided for modified barium swallow. Signed by: Dionisio Palmer MD on 06/13/2020 2:36 PM
--- NOTE | 2020-06-13 16:33 | NUR ---
REVIEW OF SYSTEMS: GENERAL: The patient has lost 50 pounds since February 18, 2020. He still has low-grade fevers. Denies any chills. HEENT: No headaches. No visual changes. CARDIOVASCULAR/RESPIRATORY: Denies any shortness of breath or cough. At times, he states it is nonproductive. He is on a trach collar. He has been off a ventilator for a week. GI: He has a G-tube in place. The patient states he would like to swallow. Denies any nausea or vomiting. He denies any diarrhea, but at times he does have constipation. : Servin catheter is removed. The patient states he voids with no problem. NEUROMUSCULAR: The patient states he does ambulate slowly with physical therapy using a rolling walker. PAST MEDICAL HISTORY: 1. Type 2 diabetes mellitus. 2. COVID-19 viral infection, resolved. 3. Chronic respiratory failure with tracheostomy tube in place. 4. Physical deconditioning. 5. Pulmonary aspergillosis. 6. Right lower extremity deep venous thrombosis. 7. Stage IV sacral decubitus ulcer. 8. COVID-19 pneumonia with adult respiratory distress syndrome, resolved. 9. Right lower extremity venous thrombosis. PAST SURGICAL HISTORY: 1. Left hand surgery that was performed before his hospitalization in January 2020. 2. G-tube placement. 3. Tracheostomy tube placement (twice). 4. Right thoracotomy for decortication on April 24, 2020. 5. Chest wall hematoma evacuation on May 11, 2020. 6. Bilateral likely pneumothoraces requiring chest tube placements. 7. Retrievable IVC filter placed because of right lower extremity deep venous thrombosis. FAMILY HISTORY: Multiple family members with diabetes mellitus. SOCIAL HISTORY: He is single. He lives with his father and brother. He works at a local [employer]. He denies any tobacco use. He states drinks alcohol socially. ALLERGIES: NO KNOWN DRUG ALLERGIES. CURRENT MEDICATIONS: Medications that will be continued during this hospitalization: 1. Acetaminophen 650 mg Elixir via G-tube every 6 hours p.r.n. temperature greater than 99.4. 2. Apixaban (Eliquis) 5 mg per PEG b.i.d. 3. Cefepime 1 g intravenous every 8 hours for 7 more days. 4. Ipratropium nebulized treatments every 6 hours. 5. Levalbuterol nebulized treatments every 6 hours. 6. Pantoprazole 40 mg per PEG daily. 7. Tramadol 50 mg every 6 hours p.r.n. pain. 8. Voriconazole 200 mg per PEG twice a day for 6 more weeks. 9. Ferrous sulfate 300 mg per PEG daily. PHYSICAL EXAMINATION: GENERAL: He is awake. He is alert. He is oriented. He is very pleasant and cooperative on exam. His cognitive status seems to be at baseline. The patient does not appear to be in any obvious distress. VITAL SIGNS: Blood pressure is 140/94, pulse 104, respiratory rate 16, oxygen saturation 100% on 6 L oxygen via trach collar, and temperature 99.4. Height 5 feet 11 inches, weight 170 pounds, BMI is 24. INTEGUMENT: Skin is warm and dry. Slight pallor. No jaundice or diaphoresis. The patient has a stage IV sacral decubitus ulcer, measuring 12 x 12 cm. HEENT: Anterior sclerae. Moist mucous membranes. NECK: Supple. He has a tracheostomy tube in place connected to trach collar. CARDIOVASCULAR: Sounds tachycardic rate and rhythm. LUNGS: The patient has diminished breath sounds at bases, particularly on the left. He has large well healed longitudinal thoracotomy surgical scar on right flank. ABDOMEN: Soft. He has a G-tube in place, which is functional. He has normal bowel sounds. EXTREMITIES: No edema or deformity. He has muscle wasting. NEUROLOGIC: He has slight left-sided weakness, but he can ambulate with therapy using a rolling walker. [id number]
--- NOTE | 2020-06-13 17:43 | Diagnostic Imaging Report ---
EXAM: CT Chest WITH contrast 06/13/2020 5:17 PM INDICATION: Shortness of breath. Chronic pneumothorax. Pneumonia ^r/o pneumonia ^[id number] ^1717 COMPARISON: 06/12/2020. April 14, 2020 TECHNIQUE: Chest was scanned utilizing a multidetector helical scanner from the lung apex through the level of the adrenal glands with administration of IV contrast. Coronal and sagittal reformations were obtained. Routine protocol was performed. IV CONTRAST: 100 mL of Isovue-370 COMPLICATIONS: None RADIATION DOSE: Total DLP: 522 mGy*cm Estimated effective dose: (DLP x 0.014 x size factor) mSv CTDIvol has been reviewed. It is below the limits set by the Radiation Protocol Committee (RPC). Dose modulation, iterative reconstruction, and/or weight based adjustment of the mA/kV was utilized to reduce the radiation dose to as low as reasonably achievable. LINES/ TUBES: Tracheostomy tube terminates in the midtrachea. Previously seen left arm PICC no longer seen. Previously seen right and left basilar pleural pigtail drainage catheter is no longer seen. LUNGS AND AIRWAYS/PLEURA: Resolution of previously seen loculated right-sided pneumothoraces. New postsurgical change along the posterior right chest wall with linear metallic foreign body. Again noted are bilateral diffuse multifocal groundglass and patchy consolidative opacities, most confluent in the bilateral lower lobes and right upper lobe. This has improved when compared with prior exam. Scattered smooth intralobular septal thickening. HEART AND MEDIASTINUM: The thyroid gland is normal. Again noted is mediastinal lymphadenopathy, likely reactive. Previously seen mucous and debris within the upper trachea no longer seen. No cardiomegaly or pericardial effusion. Coronary atherosclerosis. UPPER ABDOMEN: Limited views of the upper abdomen is grossly unremarkable. Splenomegaly, measuring up to 16.9 cm. BONES: The visualized bony thorax is within normal limits. SOFT TISSUES: Diffuse mild anasarca. IMPRESSION: Resolution of previously seen loculated right-sided pneumothoraces. New postsurgical change along the posterior right chest wall with linear metallic foreign body. Improved multifocal groundglass and patchy consolidative opacities, which may represent a combination of resolving pneumonia (including atypical pneumonia) or aspiration with superimposed pulmonary edema. Lines and tubes as above. Signed by: Dr. Silver Lacy M.D. on 06/13/2020 5:39 PM
--- NOTE | 2020-06-13 18:55 | NUR ---
Nutrition Intervention Note RD Recommendation(s) for Physician: - Recommend continue Nepro at 55 ml/hr (to provide 2376 kcal and 107 gm protein). - Water flushes per MD. - Recommend Azar 1 packet BID to promote wound healing. - Recommend vitamin C and zinc sulfate to promote wound healing. Plan of Care: RD following, monitoring for tolerance and adequacy. TF recs. Nutrition reason for involvement: EN on admit RD Assessment 06/13: 35 YOM admitted for chronic pneumothorax, assessed today per EN on admit. Pt know from prior admission, previously intubated in ICU with COVID-19 and requiring transfer to [facility] on 04/15 for thoracotomy and trach placement. Pt with prior cardiac arrest and CVA with residual L hemiparesis. Pt now with trach and PEG in place, TF ordered today- tolerance pending. Pt with significant 20% wt loss since admit on 02/20, 42# in 3.5 months. Chart reviewed. In light of renal indices and lytes current TF remains appropriate. Rec's provided to promote wound healing for stage III PU. Will continue to monitor. Principal Problems/Diagnoses: chronic pneumothorax, +trach, + PEG PMH: Uncontrolled type 2 diabetes mellitus, COVID-19, CVA with L hemiparesis, thoracotomy GI: last BM 06/13, +PEG Skin: sacral stage III per wound care Labs: 06/13: Na 146, K 4.1, BUN 56, Cr 1.05, Gluc 175, Ca 9.5 Meds: lispro, abx, feosol, protonix Ht: 71 in Wt: 171 lb (06/12); noted prior admit wt of 213 lb (02/20) BMI: 23.4 kg/m2 IBW:172 lb Malnutrition Evaluation (06/13/20) -unable to perform nutrition assessment, will evaluate at follow up Nutrition Prescription (Diet Order): TF: Nepro at 55 ml/hr to provide 2376 kcal and 107 gm protein Estimated Nutritional Needs: Calories: 2814-4352 kcal/day (25-30 kcal/kg/day) Weight used : CBW 77.7 kg Protein : 78-140 g protein/day (1-1.8 gram/kg/day ) Weight used: CBW 77.7 kg, additional protein for wound healing Diet Adequacy: meeting calorie needs, meeting protein needs Diet Education Needs Assessment: Diet education not indicated, patient on TF via PEG. Nutrition Care Level: moderate Nutrition Diagnosis: Inadequate energy intake related to medical conditions as evidenced by the pt requiring EN via PEG on admit Goal: Patient will meet 75-100% of estimated needs by follow up Progress: N/A Interventions: -TF (Composition, Rate, Route), Recommended Modifications, Collaboration with other providers, Liquid supplement, MVI/minerals Monitoring/Evaluation: -Total energy intake, Total protein intake, Formula/Solution, Vitamin/minerals, liquid supplement Signed: Chasidy Bridges RD, LD, CNSC
--- NOTE | 2020-06-13 19:35 | NUR ---
BEDSIDE SHIFT REPORT RECEIVED FROM DAY RN. PT TRACHED WITH SHILEY CUFFED TUBE. TRACH COLLAR ON 35%. PT HAS PASSEMEUR VALVE ON. TOLERATING WELL. DIET CHANGED TO MECHNICAL SOFT AND NECTAR THICK LIQUIDS. GTUBE INTACT- NEPRO FEEDING S TO START AT 8PM UNTIL 7AM. SL 20 G IN RT AC. PT IS ALERT AND ORIENTED. PT VOIDS PER URINAL. CALL LIGHT WITHIN REACH. BED LOCKED AND IN LOW POSITION.
[2020-06-13] MEDS ORDERED: SODIUM CHLORIDE 0.9% 50ML 50 ML ONE (19:54)
[2020-06-13] MEDS ORDERED: IOPAMIDOL 370 MG/ML 200 ML INFUS..BTL INJ ONE (19:54)
--- NOTE | 2020-06-13 22:17 | Consultation ---
DATE OF CONSULTATION: HISTORY OF PRESENT ILLNESS: Mr. Love is known to me from before, 35-year-old male. He was diagnosed COVID-19 on February 18, 2020. He had a very lengthy hospitalization. He was on a ventilator, had very long complication. He had cardiac arrest on March 27, 2020, resuscitated. He had pneumothorax, CVA, left him with residual left hemiparesis and decubitus ulcer. The patient was transferred to [facility]. He had a tracheostomy. He had a loculated pneumothorax. The patient's tracheostomy tube was placed twice. G-tube was placed. He was in [facility] since April 15. He is here in today for physical therapy. The patient had dysphagia. The patient had thoracotomy, decortication, chest wall hematoma evacuated. The patient also has aspergillosis. He was on voriconazole. On May 05, 2020, the patient was started on voriconazole. He completed 6 weeks. He had IVC filter placed because of right lower extremity deep venous thrombosis while he is also on apixaban. The patient now has stage IV decubitus ulcer. He was brought here. He is very weak, shaky, has no specific complaints, was known to have elevated liver enzymes. I am asked to see him. He lost 50 pounds since I have see him last time. PHYSICAL EXAMINATION: GENERAL: He is currently alert, oriented, does not seem to be in acute distress. Very weak. HEENT: He is not icteric. NECK: Supple. CHEST: Clear. HEART: S1, S2. ABDOMEN: Soft. EXTREMITIES: No edema. LABORATORY DATA: His white count is 4.0, hemoglobin of 10. His sodium 146, potassium 4.1. His AST 175, his ALT 255. His glucose was 175. His liver enzyme back in March were within normal limit. He is currently on voriconazole, cefepime. IMPRESSION AND PLAN: 1. Coronavirus disease-2019, resolved. 2. Diabetes mellitus. 3. Neuropathy. 4. Debility. 5. Pulmonary aspergillosis. 6. History of deep vein thrombosis. 7. Elevated liver enzyme, concern as to voriconazole, status post 6 weeks of treatment, however, concern with elevated liver enzyme. It could be from the medication. I would recommend to obtain CT of the lungs. Hold treatment at the present time. 8. Decubitus ulcer. Continue PT, OT. Induce sputum for culture, sensitivity, and AFB. Thank you for asking me to see this patient. MD HARVEY Alexis/FREDY /[id number]
[2020-06-14] VITALS (7 sets, daily range): BP systolic 128–153; BP diastolic 86–97
[2020-06-14] MEDS ORDERED: SODIUM CHLORIDE 0.9% 250ML 250 ML ONE (04:25)
[2020-06-14] MEDS: CEFEPIME 1GM/NS 0.9% 50 ML 50 ML IV SCH (04:26)
[2020-06-14 05:26] LABS: EOSINOPHILS # (AUTO) 0.2 (0.0-0.4); EOSINOPHILS % 4.4 % (0.0-6.0); HEMATOCRIT 33.1 % (38.2-49.6); HEMOGLOBIN 10.3 g/dL (14.0-18.0); LYMPHOCYTES # (AUTO) 1.1 (1.0-3.2); LYMPHOCYTES % 29.7 % (18.0-39.1); MEAN CORPUSCULAR HEMOGLOBIN 25.8 pg (28-32); MEAN CORPUSCULAR HGB CONC 31.1 g/dL (31-35); MONOCYTES # (AUTO) 0.5 (0.2-0.8); MONOCYTES % 12.2 % (4.4-11.3); NEUTROPHILS # (AUTO) 2.1 (2.1-6.9); NEUTROPHILS % 53.4 % (38.7-80.0); PLATELET COUNT 196 x10e3/uL (140-360); RED BLOOD COUNT 3.99 x10e6/uL (4.3-5.7); RED CELL DISTRIBUTION WIDTH 14.7 % (11.7-14.4)
[2020-06-14 05:53] LABS: ALANINE AMINOTRANSFERASE 301 IU/L (0-55); ALBUMIN 2.5 g/dL (3.5-5.0); ALBUMIN/GLOBULIN RATIO 0.4 (0.8-2.0); ALKALINE PHOSPHATASE 263 IU/L (40-150); ANION GAP 14.1 mmol/L (8-16); BLOOD UREA NITROGEN 50 mg/dL (7-26); BUN/CREATININE RATIO 49 (6-25); CALCIUM 9.4 mg/dL (8.4-10.2); CARBON DIOXIDE 32 mmol/L (22-29); CHLORIDE 106 mmol/L (98-107); CREATININE, SERUM 1.02 mg/dL (0.72-1.25); EST GLOMERULAR FILTRATION RATE > 60 ML/MIN (60-); GLUCOSE 185 mg/dL (74-118); POTASSIUM 4.1 mmol/L (3.5-5.1); SODIUM 148 mmol/L (136-145)
[2020-06-14 06:08] LABS: ALBUMIN 2.6 g/dL (3.5-5.0); BILIRUBIN,DIRECT 0.2 mg/dL (0.0-0.5)
--- NOTE | 2020-06-14 07:00 | NUR ---
PT TOLERATE NEPRO TUBE FEEDING WELL - NO RESIDUAL. SMALL BM THIS AM. SACRAL DRESSING CHANGED- WET TO DRY ORDERED BY DR GARCIA. eNCOURAGING PT TO TURN Q 2HRS- PT TURNS HIMSELF AT TIMES BUT LIKES TO LAY ON HIS BACK.
[2020-06-14] MEDS: INSULIN LISPRO 100 UNIT/1 ML 3ML VIAL SQ SCH ×4 (07:24→18:53)
--- NOTE | 2020-06-14 08:24 | Progress Note ---
DATE: 06/14/2020 CHIEF COMPLAINT/HISTORY OF PRESENT ILLNESS: This is a 35-year-old man, whose primary treating diagnosis is chronic respiratory failure with tracheostomy tube in place. The patient previously had COVID-19 pneumonia with acute respiratory distress syndrome, but this has since resolved. The patient unfortunately suffered a cerebrovascular event a few months ago, which has left him with residual left- sided hemiparesis. The patient, however, is ambulating with physical therapy. The patient yesterday was evaluated by Speech Therapy and modified barium swallow did reveal aspiration of thin liquids. The patient is improving. The patient did ambulate yesterday with physical therapy using a rolling walker. Also patient's hepatic transaminases are elevated and is felt to be secondary to voriconazole, which is treating his pulmonary aspergillosis. The patient is being seen by Infectious Disease specialist namely Dr. Hillman, who states that we may need to hold a voriconazole therapy. His liver enzymes continued to increase. Today's white blood cell count is 2800 with 53% segmented neutrophils. Hemoglobin is 10.3 g/dL. The patient's BUN and creatinine today is 50 and 1.02 respectively. The patient's AST and ALT today is 175 and 301 respectively. The patient's potassium is 4.1. The patient's alkaline phosphatase is 263. The patient's total bilirubin is 0.3. The patient's albumin level was low at 2.5 g/dL. The patient underwent a CT of the chest with intravenous contrast history on June 13, 2020, which revealed resolution of previously seen loculated right-sided pneumothoraces as well as improved multifocal ground-glass and patchy consolidative opacities. REVIEW OF SYSTEMS: As per HPI. PHYSICAL EXAMINATION: GENERAL: He is awake. He is alert. He is fully oriented. He is in no distress, very pleasant and cooperative on exam. VITAL SIGNS: Blood pressure is 150/90, pulse is 96, respiratory rate 18, oxygen is 100% on trach collar at 7 L a minute, temperature 97.5, height 5 feet 11 inches, weight 170 pounds, BMI 23. INTEGUMENT: Skin is warm and dry. Slight pallor. No jaundice or diaphoresis. The patient has a 9 x 8 cm stage IV sacral decubitus ulcer which has adequate granulation tissue. No purulent or fibrous tissues appreciated. HEENT: Anicteric sclerae. Moist mucous membranes. NECK: Supple. There is a tracheostomy tube in place connected to trach collar. CARDIOVASCULAR: Distant heart sounds. Tachycardic rate, regular rhythm. The patient has an S4 gallop. LUNGS: No rales. No rhonchi. No wheezes. He has diminished breath sounds at bases, particularly on the right. ABDOMEN: Soft. He has G-tube in place, which is functional. EXTREMITIES: No edema or deformity, but does have muscle wasting. NEUROLOGIC: He has slight weakness on the left arm and left leg, but he did ambulate yesterday with physical therapy using a rolling walker (up to 20 feet). DIAGNOSES: 1. Chronic respiratory failure with tracheostomy tube in place. 2. COVID-19 pneumonia with ARDS, resolved. 3. Pulmonary aspergillosis. 4. Enterobacter cloacae urinary tract infection. 5. Cerebrovascular accident with residual left hemiparesis. 6. Elevated hepatic transaminases, likely secondary to voriconazole. 7. physical deconditioning. 8. Stage IV sacral decubitus ulcer. 9. Type 2 diabetes mellitus. 10. Anemia secondary to chronic disease. 11. Right lower extremity deep venous thrombosis. 12. Yxboizbc-[id number] protein-calorie malnutrition. PLAN: 1. Nutritional support. 2. We will wean, the patient off tube feeds. 3. Advance diet using thickened liquids. 4. Speech Therapy, we will work with the patient in regard to his aspiration issues. 5. Follow hepatic transaminases. 6. Hold voriconazole as recommended by Infectious Disease specialist because of elevated hepatic transaminases. 7. We will commence metformin for glucose control. 8. Continue intravenous cefepime for the patient's Enterobacter urinary tract infection. 9. Continue daily physical therapy. 10. We will wean the patient off oxygen in attempt to decannulate tracheostomy tube during this hospitalization. 11. We will continue oral apixaban in the form of Eliquis for patient's right lower extremity deep venous thrombosis. I spent 40 minutes in the care of this patient. MD OLVIN Blackburn/FREDY /[id number] SHERIF
[2020-06-14] MEDS: IRBESARTAN 150 MG TAB PO SCH (09:39)
[2020-06-14] MEDS: HYDROCHLOROTHIAZIDE 25 MG TAB PO SCH (09:39)
[2020-06-14] MEDS: PANTOPRAZOLE SODIUM 40 MG SUSPDR.PKT GT SCH (09:40)
[2020-06-14] MEDS: APIXABAN 5 MG TABLET GT SCH ×2 (09:40→18:53)
[2020-06-14] MEDS: FERROUS SULFATE 300 MG/5 ML LIQD GT SCH (09:40)
--- NOTE | 2020-06-14 11:43 | NUR ---
this is infectious disease progress note. Patient seen and examined. Patient seems to be little better today there is no new complaints he remains weak. His physical examination is currently alert oriented vitals stable afebrile HEENT normal cephalic neck supple chest few rhonchi bilateral heart S1-S2 with n o stressful murmur abdomen soft but of present test extremity edema skin no rash. Resolution of previously seen loculated right-sided pneumothoraces. New postsurgical change along the posterior right chest wall with linear metallic foreign body. Improved multifocal groundglass and patchy consolidative opacities, which may represent a combination of resolving pneumonia (including atypical pneumonia) or aspiration with superimposed pulmonary edema. Lines and tubes as above. impression elevated liver enzymes due to medication continue to observe recheck liver enzymes daily Status post pneumonia status post aspirin failure improving Debility and weakness continue with PT OT Status post aspergillosis clinically seems to be stable No antibiotic Continue supportive care Discharge planning with internal medicine If liver enzymes improving
--- NOTE | 2020-06-14 13:34 | NUR ---
REPORTED BY NURSING NEGATIVE PRESSURE ORDER PUT ON HOLD AT THIS TIME PREFERENCE IS WET TO DRY DRESSINGS TO SACRAL WOUND Addendum: 06/14/20 at 1336 by Dedrick Chan RN Amended: Links added.
--- NOTE | 2020-06-14 19:45 | NUR ---
RECEIVED REPORT FROM PREVIOUS NURSE. CALL LIGHT WITHIN REACH. PATIENT IN BED. ROUNDING PERFORMED
[2020-06-15] VITALS (8 sets, daily range): BP systolic 120–160; BP diastolic 85–100
[2020-06-15] MEDS: INSULIN LISPRO 100 UNIT/1 ML 3ML VIAL SQ SCH ×4 (00:55→17:52)
[2020-06-15 05:58] LABS: BASOPHILS % 0.2 % (0.0-1.0); EOSINOPHILS # (AUTO) 0.2 (0.0-0.4); EOSINOPHILS % 4.2 % (0.0-6.0); HEMATOCRIT 31.9 % (38.2-49.6); HEMOGLOBIN 10.2 g/dL (14.0-18.0); LYMPHOCYTES # (AUTO) 1.6 (1.0-3.2); LYMPHOCYTES % 32.7 % (18.0-39.1); MEAN CORPUSCULAR HEMOGLOBIN 25.8 pg (28-32); MEAN CORPUSCULAR VOLUME 80.8 fL (81-99); MONOCYTES # (AUTO) 0.5 (0.2-0.8); MONOCYTES % 10.4 % (4.4-11.3); NEUTROPHILS # (AUTO) 2.6 (2.1-6.9); NEUTROPHILS % 52.3 % (38.7-80.0); PLATELET COUNT 214 x10e3/uL (140-360); RED BLOOD COUNT 3.95 x10e6/uL (4.3-5.7); RED CELL DISTRIBUTION WIDTH 14.7 % (11.7-14.4)
[2020-06-15 06:23] LABS: ALANINE AMINOTRANSFERASE 316 IU/L (0-55); ALBUMIN 2.5 g/dL (3.5-5.0); ALBUMIN/GLOBULIN RATIO 0.4 (0.8-2.0); ALKALINE PHOSPHATASE 247 IU/L (40-150); ANION GAP 13.8 mmol/L (8-16); BILIRUBIN,DIRECT 0.2 mg/dL (0.0-0.5); BLOOD UREA NITROGEN 37 mg/dL (7-26); BUN/CREATININE RATIO 39 (6-25); CALCIUM 9.2 mg/dL (8.4-10.2); CARBON DIOXIDE 30 mmol/L (22-29); CHLORIDE 97 mmol/L (98-107); CREATININE, SERUM 0.94 mg/dL (0.72-1.25); EST GLOMERULAR FILTRATION RATE > 60 ML/MIN (60-); GLUCOSE 162 mg/dL (74-118); POTASSIUM 3.8 mmol/L (3.5-5.1); SODIUM 137 mmol/L (136-145)
--- NOTE | 2020-06-15 07:00 | NUR ---
BEDSIDE SHIFT REPORT RECEIVED FROM THE BOX TOE MAKER RN. BED IS LOW AND LOCKED. SIDE RAILS X2. CALL LIGHT WITH IN EASY REACH. BED ALARM IS ON. PT DENIES NEEDS AT THIS TIME.
--- NOTE | 2020-06-15 07:18 | NUR ---
GAVE BEDSIDE SHIFT REPORT TO ONCOMING NURSE. CALL LIGHT WITHIN REACH. PATIENT IN BED. HOURLY ROUNDING PERFORMED
[2020-06-15] MEDS: IPRATROPIUM BROMIDE 0.02% 2.5 ML NEB NEB SCH ×3 (08:03→21:20)
[2020-06-15] MEDS: LEVALBUTEROL HCL SOLN NEBU 0.63 MG/3 ML NEB INH SCH ×3 (08:03→21:20)
[2020-06-15] MEDS: HYDROCHLOROTHIAZIDE 25 MG TAB PO SCH (08:13)
[2020-06-15] MEDS: FERROUS SULFATE 300 MG/5 ML LIQD GT SCH (08:14)
[2020-06-15] MEDS: IRBESARTAN 150 MG TAB PO SCH (08:14)
[2020-06-15] MEDS: APIXABAN 5 MG TABLET GT SCH ×2 (08:16→17:16)
[2020-06-15] MEDS: PANTOPRAZOLE SODIUM 40 MG SUSPDR.PKT GT SCH (08:22)
--- NOTE | 2020-06-15 09:20 | Progress Note ---
DATE: 06/15/2020 CHIEF COMPLAINT/HISTORY OF PRESENT ILLNESS: This is a 35-year-old man whose primary treating diagnosis is chronic respiratory failure with tracheostomy tube in place. He is also being treated for pulmonary aspergillosis as well as Enterobacter urinary tract infection. The patient is participating with physical therapy adequately. The patient's AST and ALT are 168 and 316 respectively today. The patient voiced no complaints. The patient states he does not have right upper quadrant pain. Blood work today revealed BUN and creatinine of 37 and 0.94 respectively. The patient's alkaline phosphatase is 247. The patient's total bilirubin is 0.4. The patient's white blood cell count is 4900 with 52% segmenters. Hemoglobin is 10.2 g/dL. REVIEW OF SYSTEMS: As per HPI. PHYSICAL EXAMINATION: GENERAL: He is awake, alert, and fluent, very pleasant and cooperative on exam. He is even more interactive today. VITAL SIGNS: Blood pressure is 144/94, pulse 104, respiratory rate 16, temperature 98.6, oxygen saturation 100% on 5 L of oxygen via trach collar. INTEGUMENT: Skin is warm and dry. No pallor, jaundice, or diaphoresis. The patient has a left 9 x 8 cm stage IV sacral decubitus ulcer, which has adequate granulation tissue. No purulent or fibrous tissues were appreciated. HEENT: Anicteric sclerae. Moist mucous membranes. NECK: Supple. The patient has a tracheostomy tube in place, connected to trach collar. CARDIOVASCULAR: Distant heart sounds. Tachycardic rate with regular rhythm. The patient has S4 gallop. LUNGS: The patient has diminished breath sounds at the bases particularly on the right. ABDOMEN: Soft. He has a G-tube in place, which is functional. No tenderness in the right upper quadrant area. Negative Morel sign. EXTREMITIES: No edema or deformity, but he does have muscle wasting. NEUROLOGIC: Has slight weakness on the left arm and left leg, but he does ambulate with therapy using a rolling walker. DIAGNOSES: 1. Chronic respiratory failure with tracheostomy tube in place. 2. Coronavirus disease-19 pneumonia with acute respiratory distress syndrome, resolved. 3. Pulmonary aspergillosis. 4. Enterobacter cloacae urinary tract infection. 5. Cerebrovascular accident with residual left hemiparesis. 6. Elevated hepatic transaminases, likely secondary to voriconazole. 7. Physical deconditioning. 8. Stage IV sacral decubitus ulcer. 9. Type 2 diabetes mellitus. 10. Anemia secondary to chronic disease. 11. Right lower extremity deep venous thrombosis. 12. Moderate to severe protein-calorie malnutrition. PLAN: 1. Nutritional support. 2. We will follow hepatic transaminases. 3. Order a right upper quadrant ultrasound since he has elevated hepatic transaminases. 4. Wean off tube feeds. 5. Continue metformin for glucose control. 6. Continue intravenous cefepime for patient's Enterobacter urinary tract infection. 7. Continue daily physical therapy. 8. Wean patient off oxygen in an attempt to eventually decannulate tracheostomy tube during this hospitalization. 9. Continue apixaban in the form of Eliquis for patient's right lower extremity deep venous thrombosis. I spent 30 minutes in the care of this patient. MD OLVIN Blackburn/FREDY /[id number]
--- NOTE | 2020-06-15 09:22 | Diagnostic Imaging Report ---
EXAM: Right upper quadrant abdominal ultrasound INDICATION: Elevated liver enzymes COMPARISON: None. TECHNIQUE: Transverse and longitudinal images of the right upper quadrant abdomen were obtained FINDINGS: Liver: Size: 14.1 cm in the right midclavicular line, normal Appearance: Normal echogenicity, smooth contour Mass: No focal masses Gallbladder: Small amount of sludge in the gallbladder. No gallbladder distension, pericholecystic fluid, wall thickening, stone, or reported sonographic Morel's sign. Gallbladder wall measures 2 mm. Bile Ducts: Intrahepatic Ducts: No dilatation Extrahepatic Ducts: Common bile duct measures 3 mm Pancreas: Visualized portions of the pancreatic head, neck and proximal body are normal. Kidney: The right kidney measures 9.8 cm without evidence of hydronephrosis or stone. Vessels: Aorta: Visualized portions are normal Inferior Vena Cava: Visualized portions are normal Main Portal Vein: 1.3 cm, normal size with hepatopetal flow. Free Fluid: No ascites or pleural effusion IMPRESSION: Small amount of sludge in the gallbladder. No cholelithiasis or sonographic evidence of cholecystitis. Signed by: Humberto Lopez MD on 06/15/2020 9:19 AM
--- NOTE | 2020-06-15 10:20 | NUR ---
PAGED DR. KUMAR REGARDING PT IV ABX.
--- NOTE | 2020-06-15 11:00 | NUR ---
PAGED WOUND CARE REGARDING PT SACRAL WOUND.
[2020-06-15] MEDS: CEFEPIME 1GM/NS 0.9% 50 ML 50 ML IV SCH ×2 (12:00→22:54)
[2020-06-15] MEDS: METFORMIN HCL 500 MG TAB PO SCH (17:16)
--- NOTE | 2020-06-15 19:00 | NUR ---
BEDSIDE SHIFT REPORT GIVEN TO THE HEALTH ASSISTANT RN. PT DENIED FURTHER NEEDS.
--- NOTE | 2020-06-15 19:10 | NUR ---
RECEIVED BEDSIDE SHIFT REPORT FROM PREVIOUS NURSE. CALL LIGHT WITHIN REACH. PATIENT IN BED.
--- NOTE | 2020-06-15 20:05 | Progress Note ---
DATE: SUBJECTIVE: Mr. Love is doing better. He feels stronger. REVIEW OF SYSTEMS: Otherwise, unremarkable. PHYSICAL EXAMINATION: GENERAL: He is currently alert and oriented. VITAL SIGNS: Stable, afebrile. HEENT: He is not icteric. NECK: Supple. CHEST: Clear. ABDOMEN: Soft. IMPRESSION: 1. Hepatitis and elevated liver enzymes due to medication, it seems to be better. 2. Chronic respiratory failure. 3. History of aspergillosis. 4. History of colonization with Enterobacter. 5. History of urinary tract infection, off antibiotic. 6. Debility. Continue with PT/OT as ordered. 7. COVID-19, seemed to be resolved. From Infectious Disease point of view, continue PT/OT, recheck liver enzyme. Oxygenation as needed. We will follow. MD HARVEY Alexis/MODL /[id number]
[2020-06-16] VITALS (8 sets, daily range): BP systolic 93–132; BP diastolic 64–95
[2020-06-16] MEDS: IPRATROPIUM BROMIDE 0.02% 2.5 ML NEB NEB SCH ×4 (01:00→22:20)
[2020-06-16] MEDS: LEVALBUTEROL HCL SOLN NEBU 0.63 MG/3 ML NEB INH SCH ×4 (01:00→22:20)
[2020-06-16 05:22] LABS: BASOPHILS % 0.4 % (0.0-1.0); EOSINOPHILS # (AUTO) 0.2 (0.0-0.4); EOSINOPHILS % 4.6 % (0.0-6.0); HEMATOCRIT 33.2 % (38.2-49.6); HEMOGLOBIN 10.8 g/dL (14.0-18.0); LYMPHOCYTES % 38.4 % (18.0-39.1); MEAN CORPUSCULAR HEMOGLOBIN 25.7 pg (28-32); MEAN CORPUSCULAR HGB CONC 32.5 g/dL (31-35); MONOCYTES # (AUTO) 0.4 (0.2-0.8); MONOCYTES % 8.5 % (4.4-11.3); NEUTROPHILS # (AUTO) 2.5 (2.1-6.9); NEUTROPHILS % 47.5 % (38.7-80.0); PLATELET COUNT 240 x10e3/uL (140-360); RED CELL DISTRIBUTION WIDTH 14.6 % (11.7-14.4)
[2020-06-16 05:47] LABS: ALANINE AMINOTRANSFERASE 239 IU/L (0-55); ALBUMIN 2.7 g/dL (3.5-5.0); ALBUMIN/GLOBULIN RATIO 0.5 (0.8-2.0); ALKALINE PHOSPHATASE 222 IU/L (40-150); BILIRUBIN,DIRECT 0.3 mg/dL (0.0-0.5); BLOOD UREA NITROGEN 32 mg/dL (7-26); BUN/CREATININE RATIO 33 (6-25); CALCIUM 9.2 mg/dL (8.4-10.2); CARBON DIOXIDE 29 mmol/L (22-29); CHLORIDE 97 mmol/L (98-107); CREATININE, SERUM 0.96 mg/dL (0.72-1.25); EST GLOMERULAR FILTRATION RATE > 60 ML/MIN (60-); GLUCOSE 122 mg/dL (74-118); SODIUM 136 mmol/L (136-145)
[2020-06-16] MEDS: INSULIN LISPRO 100 UNIT/1 ML 3ML VIAL SQ SCH ×4 (06:00→17:45)
--- NOTE | 2020-06-16 07:00 | NUR ---
BEDSIDE SHIFT REPORT RECEIVED FROM THE JOURNEYMAN WIREMAN RN. EDUCATED PT ABOUT FALL PRECAUTIONS. PT VERBALIZED UNDERSTANDING. BED IS LOW AND LOCKED. SIDE RAILS X2. CALL LIGHT WITH IN EASY REACH. PT DENIES NEEDS AT THIS TIME.
[2020-06-16] MEDS: METFORMIN HCL 500 MG TAB PO SCH ×2 (09:00→17:46)
[2020-06-16] MEDS: IRBESARTAN 150 MG TAB PO SCH (09:20)
[2020-06-16] MEDS: HYDROCHLOROTHIAZIDE 25 MG TAB PO SCH (09:20)
[2020-06-16] MEDS: PANTOPRAZOLE SODIUM 40 MG SUSPDR.PKT GT SCH (09:20)
[2020-06-16] MEDS: FERROUS SULFATE 300 MG/5 ML LIQD GT SCH (09:20)
[2020-06-16] MEDS: APIXABAN 5 MG TABLET GT SCH ×2 (09:20→17:46)
--- NOTE | 2020-06-16 09:28 | Progress Note ---
DATE: 06/16/2020 CHIEF COMPLAINT/HISTORY OF PRESENT ILLNESS: This is a 35-year-old white man, whose primary treating diagnosis is chronic respiratory failure with tracheostomy tube in place. The patient is requiring less oxygen. Currently, he has 100% ox saturation on 5 L oxygen via tracheostomy tube. The patient ambulated yesterday 70 feet with physical therapy. His heart rate did get as high as 120 beats per minute. The patient voices no complaints. Today's white blood cell count is 5100 with 47% segmented neutrophils. Hemoglobin is 10.8 g/dL. The patient's BUN and creatinine 32 and 0.96 respectively. The patient's AST and ALT are 83 and 239 respectively, which is improving. The patient's alkaline phosphatase is 222. The patient's albumin is 2.7 g/dL. The patient underwent a gallbladder ultrasound yesterday, which revealed sludge, otherwise unremarkable. There was no cholelithiasis or any sonographic evidence of cholecystitis. The patient is eating 100% of his meals without any difficulty. REVIEW OF SYSTEMS: As per HPI. PHYSICAL EXAMINATION: GENERAL: He is awake. He is alert. He is fully oriented. VITAL SIGNS: Height 5 feet 11 inches, weight 170 pounds, and BMI 23. Blood pressure is 132/96, pulse is 100, respiratory rate 18, oxygen saturation is 100% on 5 L via tracheostomy tube, temperature 97.9. INTEGUMENT: Skin is warm and dry. He does have slight pallor. No jaundice or diaphoresis. The patient has a 9 x 9 cm stage IV sacral decubitus ulcer that has pain granulation tissue in the base. No obvious purulent fibrinous tissues appreciated. HEENT: Anicteric sclerae. Moist mucous membranes. The patient is able to phonate without any difficulty when his tracheostomy tube is capped. NECK: Supple. His tracheostomy tube in place with a trach collar. CARDIOVASCULAR: Distant heart sounds. Tachycardic rate with regular rhythm. Has an S4 gallop. LUNGS: Diminished breath sounds at bases, more pronounced on the right. ABDOMEN: Soft. He has normal bowel sounds. He has a G-tube in place, which is not being used. EXTREMITIES: No edema or deformity. He does have muscle wasting. NEUROLOGIC: He has slight weakness in the left arm, left leg, but he does ambulate with therapy using a rolling walker. Yesterday, on May, he ambulated 70 feet. DIAGNOSES: 1. Chronic respiratory failure with tracheostomy tube in place. 2. Coronavirus disease 19 pneumonia with respiratory distress syndrome, resolved. 3. Pulmonary aspergillosis, resolving. 4. Enterobacter cloacae urinary tract infection, resolving. 5. Cerebrovascular accident with residual left hemiparesis. 6. Elevated hepatic transaminases, likely secondary to voriconazole, normalizing. 7. Physical deconditioning. 8. Stage IV sacral decubitus ulcer. 9. Type 2 diabetes mellitus. 10. Anemia secondary to chronic disease. 11. Right lower extremity deep venous thrombosis. 12. Moderate to severe protein-calorie malnutrition. PLAN: 1. Wean the patient off oxygen. 2. We will decannulate tracheostomy tube within the next week. 3. We will likely decannulate G-tube within next week. 4. Nutritional support. 5. We will continue aggressive physical therapy. 6. Continue wound care to the patient's stage IV sacral decubitus ulcer. 7. Continue Eliquis for the patient's right lower extremity deep venous thrombosis. 8. Follow hepatic transaminases. I spent 35 minutes in the care of this patient. MD OLVIN Blackburn/FREDY /[id number] MTDD
[2020-06-16] MEDS: CEFEPIME 1GM/NS 0.9% 50 ML 50 ML IV SCH ×2 (10:00→22:30)
--- NOTE | 2020-06-16 16:10 | NUR ---
Nutrition Intervention Note RD Recommendation(s) for Physician: - Recommend 2000 ADA diet and texture modification per speech therapy - Recommend Glucerna nutrition supplement BID for added nutrition - Recommend Azar 1 packet BID to promote wound healing. - Recommend vitamin C and zinc sulfate to promote wound healing Plan of Care: RD following, monitoring for tolerance and adequacy Nutrition reason for involvement: follow up RD Assessment 06/06: Follow up. Chart reviewed. Speech therapy evaluated pt and recommended a mechanical soft diet when nectar thick liquids. MD note indicates pt is eating 100% of his meals without difficulty. PEG tube is not being used. Recommendations provided. Will continue to monitor. 06/13: 35 YOM admitted for chronic pneumothorax, assessed today per EN on admit. Pt know from prior admission, previously intubated in ICU with COVID-19 and requiring transfer to [facility] on 04/15 for thoracotomy and trach placement. Pt with prior cardiac arrest and CVA with residual L hemiparesis. Pt now with trach and PEG in place, TF ordered today- tolerance pending. Pt with significant 20% wt loss since admit on 02/20, 42# in 3.5 months. Chart reviewed. In light of renal indices and lytes current TF remains appropriate. Rec's provided to promote wound healing for stage III PU. Will continue to monitor. Principal Problems/Diagnoses: chronic pneumothorax PMH: Uncontrolled type 2 diabetes mellitus, COVID-19, CVA with L hemiparesis, thoracotomy GI: last BM 06/16 Skin: sacral stage III per wound care Labs: 06/16: Na 136, K 4.0, BUN 32, Cr 0.96, Glu 122, AST 83, ALT 239 06/13: Na 146, K 4.1, BUN 56, Cr 1.05, Gluc 175, Ca 9.5 Meds: insulin, antibiotic, ferrous sulfate, protonix, metformin Ht: 71 in Wt: 171 lb (06/12); noted prior admit wt of 213 lb (02/20) BMI: 23.4 kg/m2 IBW:172 lb Malnutrition Evaluation (06/16/20) -unable to fully assess at this time, will evaluate at follow up Energy intake: Adequate PO intake reported at this time Weight loss: >7.5% in ~ 3 months Fat loss: unable to perform NFPE at this time Muscle loss: unable to perform NFPE at this time Supporting Evidence: Fluid accumulation: no edema per MD note Functional Status: unable to assess Nutrition Prescription (Diet Order): regular diet, mechanical soft/nectar thick liquids Estimated Nutritional Needs: Calories: 4912-8272 kcal/day (25-30 kcal/kg/day) Weight used : CBW 77.7 kg Protein : 78-140 g protein/day (1-1.8 gram/kg/day ) Weight used: CBW 77.7 kg, additional protein for wound healing Diet Adequacy: meeting calorie needs, meeting protein needs Diet Education Needs Assessment: RD is available for diet education as needed Nutrition Care Level: moderate Nutrition Diagnosis: Increased nutrient needs related to increased demand for protein and kcal as evidenced by sacral stage III pressure ulcer. Goal: Patient will meet 75-100% of estimated needs by follow up Progress: progressing Interventions: -carbohydrate and texture modified diet, Recommended Modifications, Liquid supplement, MVI/minerals Monitoring/Evaluation: -Total energy intake, Total protein intake, Vitamin/minerals, liquid supplement Signed: Hazel Alonzo RD, LD
--- NOTE | 2020-06-16 17:00 | NUR ---
PAGED DR. KUMAR OFFICE REGARDING DIETARY RECOMMENDATION KAYLAN AND KENDALL . WAITING FOR THE RESPONSE FROM THE
--- NOTE | 2020-06-16 17:14 | NUR ---
Mr. Love is doing better. He feels stronger. REVIEW OF SYSTEMS: Otherwise, unremarkable. PHYSICAL EXAMINATION: GENERAL: He is currently alert and oriented. VITAL SIGNS: Stable, afebrile. HEENT: He is not icteric. NECK: Supple. CHEST: Clear. ABDOMEN: Soft. IMPRESSION: 1. Hepatitis and elevated liver enzymes due to medication, it seems to be better. 2. Chronic respiratory failure. 3. History of aspergillosis. 4. History of colonization with Enterobacter. 5. History of urinary tract infection, off antibiotic. 6. Debility. Continue with PT/OT as ordered. 7. COVID-19, seemed to be resolved. [id number]
--- NOTE | 2020-06-16 19:15 | NUR ---
BEDSIDE SHIFT REPORT GIVEN TO THE LINING BASTER RN. PT DENIED FURTHER NEEDS.
--- NOTE | 2020-06-16 19:56 | Progress Note ---
DATE: SUBJECTIVE: Mr. Love continued to improve. There are no new complaints. He is feeling better. REVIEW OF SYSTEMS: Otherwise is unremarkable. PHYSICAL EXAMINATION: GENERAL: He is currently alert, oriented. VITAL SIGNS: Stable, afebrile. HEENT: Not icteric. NECK: Supple. CHEST: Clear. HEART: S1, S2. No murmurs. ABDOMEN: Soft. IMPRESSION: From Infectious Disease point of view the patient is doing well, to be discharged home on oxygen and local care, PT/OT. Follow up with liver enzyme. His liver enzyme is slowly getting better. But otherwise patient is stable from Infectious Disease. MD HARVEY Alexis/MODL /[id number]
[2020-06-17] VITALS (7 sets, daily range): BP systolic 87–106; BP diastolic 65–78
[2020-06-17] MEDS: IPRATROPIUM BROMIDE 0.02% 2.5 ML NEB NEB SCH ×4 (01:00→21:40)
[2020-06-17] MEDS: LEVALBUTEROL HCL SOLN NEBU 0.63 MG/3 ML NEB INH SCH ×4 (01:00→21:40)
[2020-06-17 05:06] LABS: BASOPHILS % 0.5 % (0.0-1.0); EOSINOPHILS # (AUTO) 0.2 (0.0-0.4); EOSINOPHILS % 3.4 % (0.0-6.0); HEMATOCRIT 31.6 % (38.2-49.6); HEMOGLOBIN 10.4 g/dL (14.0-18.0); LYMPHOCYTES # (AUTO) 1.9 (1.0-3.2); LYMPHOCYTES % 30.9 % (18.0-39.1); MEAN CORPUSCULAR HEMOGLOBIN 26.6 pg (28-32); MEAN CORPUSCULAR HGB CONC 32.9 g/dL (31-35); MEAN CORPUSCULAR VOLUME 80.8 fL (81-99); MONOCYTES # (AUTO) 0.5 (0.2-0.8); MONOCYTES % 8.5 % (4.4-11.3); NEUTROPHILS # (AUTO) 3.5 (2.1-6.9); NEUTROPHILS % 56.1 % (38.7-80.0); PLATELET COUNT 244 x10e3/uL (140-360); RED BLOOD COUNT 3.91 x10e6/uL (4.3-5.7); RED CELL DISTRIBUTION WIDTH 14.7 % (11.7-14.4)
[2020-06-17 05:35] LABS: ALANINE AMINOTRANSFERASE 165 IU/L (0-55); ALBUMIN 2.7 g/dL (3.5-5.0); ALBUMIN/GLOBULIN RATIO 0.5 (0.8-2.0); ALKALINE PHOSPHATASE 195 IU/L (40-150); ANION GAP 13.2 mmol/L (8-16); BILIRUBIN,DIRECT 0.3 mg/dL (0.0-0.5); BLOOD UREA NITROGEN 35 mg/dL (7-26); BUN/CREATININE RATIO 35 (6-25); CALCIUM 9.1 mg/dL (8.4-10.2); CARBON DIOXIDE 27 mmol/L (22-29); CHLORIDE 97 mmol/L (98-107); CREATININE, SERUM 1.01 mg/dL (0.72-1.25); EST GLOMERULAR FILTRATION RATE > 60 ML/MIN (60-); GLUCOSE 129 mg/dL (74-118); POTASSIUM 4.2 mmol/L (3.5-5.1); SODIUM 133 mmol/L (136-145)
[2020-06-17] MEDS: INSULIN LISPRO 100 UNIT/1 ML 3ML VIAL SQ SCH ×4 (06:00→18:01)
[2020-06-17] MEDS: IRBESARTAN 150 MG TAB PO SCH (09:00)
[2020-06-17] MEDS: METFORMIN HCL 500 MG TAB PO SCH ×2 (09:47→17:40)
[2020-06-17] MEDS: FERROUS SULFATE 300 MG/5 ML LIQD GT SCH (09:47)
[2020-06-17] MEDS: APIXABAN 5 MG TABLET GT SCH ×2 (09:47→17:40)
[2020-06-17] MEDS: HYDROCHLOROTHIAZIDE 25 MG TAB PO SCH (09:48)
[2020-06-17] MEDS: PANTOPRAZOLE SODIUM 40 MG SUSPDR.PKT GT SCH (09:51)
[2020-06-17] MEDS: CEFEPIME 1GM/NS 0.9% 50 ML 50 ML IV SCH ×3 (09:51→23:07)
[2020-06-17] MEDS: TRAMADOL HCL 50 MG TAB GT PRN (09:57)
--- NOTE | 2020-06-17 17:55 | Progress Note ---
DATE: SUBJECTIVE: Mr. Love remains in the hospital. He is doing better. He is still weak. No new complaint. REVIEW OF SYSTEMS: Otherwise HEENT, negative. Pulmonary, negative. PHYSICAL EXAMINATION: GENERAL: Currently alert and oriented. VITAL SIGNS: Stable, afebrile. HEENT: He is not icteric. NECK: Supple. CHEST: Clear. HEART: S1, S2. ABDOMEN: Soft. IMPRESSION: Stable from Infectious Disease point of view, elevated liver enzyme. To continue to monitor. Recheck in a couple of days. Status post sepsis, status post COVID-19, status post aspergillosis, all stable. Panfilo Hillman MD ZS/MODL /[id number]
[2020-06-18] VITALS (8 sets, daily range): BP systolic 99–108; BP diastolic 70–78
[2020-06-18] MEDS: LEVALBUTEROL HCL SOLN NEBU 0.63 MG/3 ML NEB INH SCH ×4 (01:00→21:15)
[2020-06-18] MEDS: IPRATROPIUM BROMIDE 0.02% 2.5 ML NEB NEB SCH ×4 (01:42→21:15)
[2020-06-18] MEDS: INSULIN LISPRO 100 UNIT/1 ML 3ML VIAL SQ SCH ×4 (05:49→17:48)
[2020-06-18] MEDS: PANTOPRAZOLE SODIUM 40 MG SUSPDR.PKT GT SCH (09:05)
[2020-06-18] MEDS: METFORMIN HCL 500 MG TAB PO SCH ×2 (09:05→17:48)
[2020-06-18] MEDS: FERROUS SULFATE 300 MG/5 ML LIQD GT SCH (09:05)
[2020-06-18] MEDS: APIXABAN 5 MG TABLET GT SCH ×2 (09:05→17:48)
[2020-06-18] MEDS: HYDROCHLOROTHIAZIDE 25 MG TAB PO SCH (09:06)
[2020-06-18] MEDS: IRBESARTAN 150 MG TAB PO SCH (09:06)
[2020-06-18] MEDS: CEFEPIME 1GM/NS 0.9% 50 ML 50 ML IV SCH (09:06)
[2020-06-18] MEDS: TRAMADOL HCL 50 MG TAB GT PRN (10:34)
--- NOTE | 2020-06-18 13:39 | NUR ---
Otherwise HEENT, negative. Pulmonary, negative. PHYSICAL EXAMINATION: GENERAL: Currently alert and oriented. VITAL SIGNS: Stable, afebrile. HEENT: He is not icteric. NECK: Supple. CHEST: Clear. HEART: S1, S2. ABDOMEN: Soft. IMPRESSION: Stable from Infectious Disease point of view, elevated liver enzyme. To continue to monitor. Recheck in a couple of days. Status post sepsis, status post COVID-19, status post aspergillosis, all stable. [id number]
--- NOTE | 2020-06-18 15:12 | Progress Note ---
DATE: SUBJECTIVE: Mr. Love remains in the hospital, but he is doing good, remains weak. There is no new complaint. PHYSICAL EXAMINATION: GENERAL: He is currently alert, oriented. VITAL SIGNS: Stable, afebrile. HEENT: Not icteric. NECK: Supple. CHEST: Clear. HEART: S1, S2. No murmur. ABDOMEN: Soft. IMPRESSION: Stable from Infectious Disease point of view. No new recommendation. Discharge planning per other. Continue with local care. MD HARVEY Alexis/MODL /[id number]
--- NOTE | 2020-06-18 19:44 | Consultation ---
DATE OF CONSULTATION: Pulmonary Critical Care Consultation CHIEF COMPLAINT: Recovering respiratory failure and prior CVA. HISTORY OF PRESENT ILLNESS: The patient is a 35-year-old man. He was hospitalized for six weeks after COVID and respiratory failure. He required prolonged mechanical ventilation and a tracheostomy. His course was complicated by development of pneumothoraces bilaterally. He also had a cardiopulmonary arrest with some CPR and showed some left-sided weakness. He was subsequently went to the [facility] because of the loculated pneumothoraces. He had a VATS procedure performed and his lung re-expanded. He was subsequently weaned from the ventilator to a trach collar and was transferred back to the [facility]. PAST SURGICAL HISTORY: 1. Status post tracheostomy. 2. Status post video-assisted thoracoscopy with decortication for pneumothoraces. 3. Status post multiple chest tubes. PAST MEDICAL HISTORY: 1. Coronavirus disease-19 and respiratory failure. 2. Residual left hemiparesis. SOCIAL HISTORY: The patient is not a smoker. He is not a drinker. PHYSICAL EXAMINATION: VITAL SIGNS: The patient is afebrile. The blood pressure is 108/73. Saturation is 100% on a 28% trach collar. His site looks clean. CARDIAC: Regular rate and rhythm with normal S1, S2. LUNGS: Auscultation of lungs shows crackles at the bases. There is no wheezing. ABDOMEN: Soft, nontender. There is no rebound or guarding. EXTREMITIES: No leg edema. There is some atrophy in the extremities. NEUROLOGIC: Minimal left-sided weakness. He has some diffuse weakness and some ataxia. RADIOGRAPHIC DATA: CT scan of the chest shows resolution of previously seen loculated pneumothoraces. He also has improved ground-glass opacities. IMPRESSION: 1. Prior respiratory failure. 2. Myopathy, deconditioning. 3. Prior left-sided cerebrovascular accident. 4. Prior pulmonary aspergillosis. 5. Sacral decubitus ulcer. 6. History of a deep vein thrombosis. 7. Anemia secondary to chronic disease. PLAN: 1. Continue physical therapy. 2. Downsize tracheostomy. 3. Shiley and work towards removal of tracheostomy. 4. Continue Eliquis. 5. Continue antibiotics. 6. Continue to monitor blood sugars. MD MUNA Ramos/MARSHALL /[id number]
[2020-06-19] VITALS (8 sets, daily range): BP systolic 92–109; BP diastolic 63–85
[2020-06-19] MEDS: LEVALBUTEROL HCL SOLN NEBU 0.63 MG/3 ML NEB INH SCH ×4 (03:00→18:45)
[2020-06-19] MEDS: IPRATROPIUM BROMIDE 0.02% 2.5 ML NEB NEB SCH ×4 (03:00→18:45)
[2020-06-19 05:09] LABS: BASOPHILS % 0.4 % (0.0-1.0); EOSINOPHILS # (AUTO) 0.2 (0.0-0.4); EOSINOPHILS % 2.8 % (0.0-6.0); HEMATOCRIT 31.9 % (38.2-49.6); HEMOGLOBIN 10.6 g/dL (14.0-18.0); LYMPHOCYTES # (AUTO) 1.8 (1.0-3.2); LYMPHOCYTES % 25.3 % (18.0-39.1); MEAN CORPUSCULAR HEMOGLOBIN 27.1 pg (28-32); MEAN CORPUSCULAR HGB CONC 33.2 g/dL (31-35); MEAN CORPUSCULAR VOLUME 81.6 fL (81-99); MONOCYTES # (AUTO) 0.6 (0.2-0.8); MONOCYTES % 7.8 % (4.4-11.3); NEUTROPHILS # (AUTO) 4.5 (2.1-6.9); PLATELET COUNT 273 x10e3/uL (140-360); RED BLOOD COUNT 3.91 x10e6/uL (4.3-5.7); RED CELL DISTRIBUTION WIDTH 14.9 % (11.7-14.4)
[2020-06-19 05:36] LABS: ALANINE AMINOTRANSFERASE 89 IU/L (0-55); ALBUMIN 2.7 g/dL (3.5-5.0); ALBUMIN/GLOBULIN RATIO 0.5 (0.8-2.0); ALKALINE PHOSPHATASE 180 IU/L (40-150); ANION GAP 13.6 mmol/L (8-16); BLOOD UREA NITROGEN 35 mg/dL (7-26); BUN/CREATININE RATIO 30 (6-25); CALCIUM 9.3 mg/dL (8.4-10.2); CARBON DIOXIDE 25 mmol/L (22-29); CHLORIDE 97 mmol/L (98-107); CREATININE, SERUM 1.17 mg/dL (0.72-1.25); EST GLOMERULAR FILTRATION RATE > 60 ML/MIN (60-); GLUCOSE 112 mg/dL (74-118); POTASSIUM 4.6 mmol/L (3.5-5.1); SODIUM 131 mmol/L (136-145)
[2020-06-19] MEDS: INSULIN LISPRO 100 UNIT/1 ML 3ML VIAL SQ SCH ×4 (05:43→18:00)
--- NOTE | 2020-06-19 08:51 | Progress Note ---
DATE: 06/19/2020 CHIEF COMPLAINT/HISTORY OF PRESENT ILLNESS: This is a 35-year-old man whose primary treating diagnosis is chronic respiratory failure secondary to previous COVID-19 pneumonia. The patient's pneumonia is completely resolved. The patient's tracheostomy tube is actually capped and his oxygen saturation is 100% on 6 L oxygen. The patient voices no complaints other than the fact he wants to be discharged home. He also would like to have his tracheostomy tube decannulated and G-tube removed. The patient had blood work today and was found to have a white blood cell count of 7100 with 63% segmented neutrophils. Hemoglobin is 10.6 g/dL. The patient's BUN and creatinine are 35 and 1.17 respectively. The patient's AST and ALT were 89 and 180 respectively. Albumin is 2.7 g/dL. The patient ate all his food today. REVIEW OF SYSTEMS: As per HPI. PHYSICAL EXAMINATION: GENERAL: He is awake and alert. He is fully oriented. Blood pressure is 109/79, pulse 108, respiratory rate 18, oxygen saturation 100% on 6 L oxygen, and temperature 97.8. Height 5 feet 11 inches, weight 170 pounds, BMI 23. INTEGUMENT: Skin is warm and dry. Slight pallor, jaundice, or diaphoresis. The patient has a 9 x 9 cm stage IV sacral decubitus ulcer, but has adequate healthy granulation tissue at its base. HEENT: Anicteric sclerae. Moist mucous membranes. NECK: Supple. He has tracheostomy tube in placement that is currently capped. He is on nasal cannula at 6 L a minute. CARDIOVASCULAR: Tachycardic rate and regular rhythm. LUNGS: Diminished breath sounds at the bases, but it is improving. ABDOMEN: Soft. Normal bowel sounds. He has G-tube in place, which is not being used at this time. EXTREMITIES: No edema, but he has some muscle wasting in his extremities. NEUROLOGIC: He does have slight left upper extremity and lower extremity weakness. He is completely oriented. No dysarthria is appreciated. DIAGNOSES: 1. Chronic respiratory failure with tracheostomy tube in place, resolving. 2. Valladares virus disease 19 pneumonia with respiratory distress syndrome, resolved. 3. Pulmonary aspergillosis, resolved. 4. Enterobacter cloacae urinary tract infection, resolving. 5. Cerebrovascular accident with residual left hemiparesis. 6. Elevated hepatic transaminases likely secondary to voriconazole, normalizing. 7. Physical deconditioning number. 8. Stage IV sacral decubitus ulcer. 9. Type 2 diabetes mellitus. 10. Anemia secondary to chronic disease. 11. Right lower extremity deep venous thrombosis. 12. Moderate to severe protein-calorie malnutrition. PLAN: 1. We will decrease oxygen to 2 L a minute. 2. Keep tracheostomy tube capped. 3. We will likely decannulate tracheostomy tube today or tomorrow. 4. Appreciate Pulmonary's input. 5. We will likely remove G-tube this week. 6. Continue wound care to the patient's stage IV sacral decubitus ulcer. 7. We will check urine today to see of Enterobacter cloacae urinary infection has resolved. 8. We will not restart voriconazole at this time since he did experience elevated hepatic transaminases secondary to this antifungal agent. 9. Continue daily physical therapy. 10. Continue oral Eliquis for the patient's right lower extremity deep venous thrombosis, which he will continue for a total of six months of therapy. 11. Discharge planning for this week. I spent 35 minutes in the care of this patient. MD OLVIN Blackburn/FREDY /[id number] MTDD
[2020-06-19] MEDS: IRBESARTAN 150 MG TAB PO SCH (09:00)
--- NOTE | 2020-06-19 09:10 | Diagnostic Imaging Report ---
EXAMINATION: CHEST SINGLE (PORTABLE) INDICATION: Respiratory failure COMPARISON: Chest CT 06/13/2020, chest radiograph 06/12/2020 FINDINGS: LINES/TUBES:Tracheostomy tube in place. Intercostal arterial embolization coils overlie the peripheral right lung. LUNGS:The lungs are moderately inflated. Unchanged right greater than left interstitial opacities. PLEURA:Trace right pleural effusion. No pneumothorax. MEDIASTINUM:The cardiomediastinal silhouette appears unchanged in size and shape. BONES/SOFT TISSUES:No acute osseous injury. ABDOMEN:No free air under the diaphragm. IMPRESSION: No significant change in right greater than left interstitial opacities. Signed by: Humberto Lopez MD on 06/19/2020 9:07 AM
[2020-06-19] MEDS: APIXABAN 5 MG TABLET GT SCH ×2 (09:18→18:25)
[2020-06-19] MEDS: METFORMIN HCL 500 MG TAB PO SCH ×2 (09:18→18:25)
[2020-06-19] MEDS: FERROUS SULFATE 300 MG/5 ML LIQD GT SCH (09:18)
[2020-06-19] MEDS: PANTOPRAZOLE SODIUM 40 MG SUSPDR.PKT GT SCH (09:18)
[2020-06-19] MEDS: CEFEPIME 1GM/NS 0.9% 50 ML 50 ML IV SCH (11:00)
--- NOTE | 2020-06-19 11:05 | NUR ---
Pt excited about upcoming discharge. Critical Systems Technician obtained permission for prayer during pt's d/c observance. Reminded pt of availability of cutter operator asbestos shingle and how to reach cutter operator asbestos shingle, if needed. [facility] O: [phone]
[2020-06-19] MEDS ORDERED: ONDANSETRON HCL INJ 2MG/ML 2ML 2 MG/ML VIAL IV PRN (14:00)
--- NOTE | 2020-06-19 14:21 | NUR ---
lorena Love remains in the hospital, but he is doing good, remains weak. There is no new complaint. PHYSICAL EXAMINATION: GENERAL: He is currently alert, oriented. VITAL SIGNS: Stable, afebrile. HEENT: Not icteric. NECK: Supple. CHEST: Clear. HEART: S1, S2. No murmur. ABDOMEN: Soft. IMPRESSION: Stable from Infectious Disease point of view. No new recommendation. Discharge planning per other. Continue with local care. [id number]
--- NOTE | 2020-06-19 17:59 | Progress Note ---
DATE: SUBJECTIVE: The patient's trach was changed to a #4. His trach has been capped and he has been on a nasal cannula all day. PHYSICAL EXAMINATION: VITAL SIGNS: The patient is afebrile. Saturation is 100% on 2 L. HEENT: Shows no facial swelling or erythema. There is a tracheostomy site. It looks clean. There is no drainage. CARDIAC: Reveals regular rate and rhythm with normal S1 and S2. LUNGS: Auscultation of lungs reveals clear breath sounds bilaterally. There is no wheezing. ABDOMEN: Soft and nontender. There is no rebound or guarding. EXTREMITIES: Shows no leg edema or calf tenderness. There is no cyanosis or clubbing. SKIN: Shows no rashes. LABORATORY DATA: White blood cell count is 7.2 and hemoglobin is 10.6. Platelet count is 273. BUN to creatinine ratio is 35 to 1.17 and the sodium is 131. Albumin is 2.7. RADIOGRAPHIC DATA: Chest x-ray shows bilateral interstitial opacities. IMPRESSION: 1. Prior respiratory failure secondary to COVID-19. 2. Myopathy and deconditioning. 3. Prior left-sided cerebrovascular accident. 4. Pulmonary aspergillosis. 5. Sacral decubitus ulcer. 6. History of deep vein thrombosis. PLAN: 1. We will decannulate tracheostomy today. 2. Continue physical therapy. 3. Continue current treatment for aspergillosis. Severiano Crow MD [facility]/MODL /[id number]
--- NOTE | 2020-06-19 17:59 | Progress Note ---
DATE: SUBJECTIVE: Mr. Love is doing well. There are no new complaints. He is still weak, but overall he is feeling better. PHYSICAL EXAMINATION: HEENT: Normocephalic. NECK: Supple. CHEST: Few crackles, bilateral. HEART: S1-S2. No murmurs. ABDOMEN: Soft. Bowel sounds present. EXTREMITIES: No edema. IMPRESSION AND PLAN: 1. Pneumonia, resolved. 2. Coronavirus disease 19. The patient is not infectious anymore, status post trach. Continue to wean as tolerated. 3. Debility. Continue as tolerated. 4. Elevated liver enzyme due to voriconazole. 5. Aspergillosis, resolved. Stable from Infectious Disease point of view. 6. Decubitus ulcer. Continue with local care. 7. Bacteriuria. I would suggest to go home with no need for further treatment. Clinically, seems to be better. We will discuss with Dr. Chau. MD HARVEY Alexis/FREDY /[id number]
--- NOTE | 2020-06-19 18:45 | NUR ---
Trach was removed by respiratory. Dressing was placed over stoma. breaths are even and unlabored on 2L/NC.
[2020-06-19 19:22] LABS: CLARITY,URINE SL CLOUDY (CLEAR); COLOR,URINE STRAW (YELLOW); LEUKOCYTE ESTERASE ,URINE NEGATIVE (NEGATIVE); NITRITE,URINE NEGATIVE (NEGATIVE)
[2020-06-19 19:23] LABS: BILIRUBIN,URINE NEGATIVE (NEGATIVE); KETONES,URINE NEGATIVE (NEGATIVE); PROTEIN,URINE DIPSTICK 1+ (NEGATIVE); URINE UROBILINOGEN 0.2 mg/dL (0.2 - 1)
--- NOTE | 2020-06-19 19:26 | NUR ---
WALKING ROUNDS PERFORMED, RECEIVED PT LAYING SEMI FOWLERS IN BED, AAOX3, RR EVEN AND NON-LABORED, O2 BY NC AT 2L. NO S/SX OF DISTRESS NOTED. DRESSING TO ANTERIOR NECK NOTED TO BE CDI. LEFT PT LAYING SEMI FOWLERS IN BED, BED IN LOW LOCKED POSITION, SIDE RAILS UPX2, CALL LIGHT AND PHONE WITHIN REACH.
[2020-06-19 19:37] LABS: AMORPHOUS SEDIMENT,URINE FEW (FEW); BACTERIA,URINE RARE /HPF; RBC,URINE 0-5 /HPF (0-5)
[2020-06-20] VITALS: BP 111/83
[2020-06-20] MEDS: TRAMADOL HCL 50 MG TAB PO PRN (00:10)
[2020-06-20] MEDS: IPRATROPIUM BROMIDE 0.02% 2.5 ML NEB NEB SCH ×4 (00:45→18:45)
[2020-06-20] MEDS: LEVALBUTEROL HCL SOLN NEBU 0.63 MG/3 ML NEB INH SCH ×4 (00:45→18:45)
[2020-06-20 04:00] VITALS: BP 111/76
[2020-06-20 05:17] LABS: BASOPHILS % 0.3 % (0.0-1.0); EOSINOPHILS # (AUTO) 0.2 (0.0-0.4); EOSINOPHILS % 2.5 % (0.0-6.0); HEMATOCRIT 31.8 % (38.2-49.6); HEMOGLOBIN 10.7 g/dL (14.0-18.0); LYMPHOCYTES # (AUTO) 1.7 (1.0-3.2); LYMPHOCYTES % 23.8 % (18.0-39.1); MEAN CORPUSCULAR HEMOGLOBIN 26.8 pg (28-32); MEAN CORPUSCULAR HGB CONC 33.6 g/dL (31-35); MEAN CORPUSCULAR VOLUME 79.5 fL (81-99); MONOCYTES # (AUTO) 0.7 (0.2-0.8); MONOCYTES % 9.6 % (4.4-11.3); NEUTROPHILS # (AUTO) 4.5 (2.1-6.9); NEUTROPHILS % 63.4 % (38.7-80.0); PLATELET COUNT 293 x10e3/uL (140-360); RED CELL DISTRIBUTION WIDTH 14.6 % (11.7-14.4)
[2020-06-20 05:27] LABS: INR 1.08; PROTHROMBIN TIME 14.6 seconds (11.9-14.5)
[2020-06-20 05:34] LABS: ALANINE AMINOTRANSFERASE 70 IU/L (0-55); ALBUMIN 2.7 g/dL (3.5-5.0); ALBUMIN/GLOBULIN RATIO 0.5 (0.8-2.0); ALKALINE PHOSPHATASE 166 IU/L (40-150); ANION GAP 14.7 mmol/L (8-16); BLOOD UREA NITROGEN 30 mg/dL (7-26); BUN/CREATININE RATIO 25 (6-25); CALCIUM 9.4 mg/dL (8.4-10.2); CARBON DIOXIDE 23 mmol/L (22-29); CHLORIDE 99 mmol/L (98-107); CREATININE, SERUM 1.22 mg/dL (0.72-1.25); EST GLOMERULAR FILTRATION RATE > 60 ML/MIN (60-); GLUCOSE 101 mg/dL (74-118); POTASSIUM 4.7 mmol/L (3.5-5.1); SODIUM 132 mmol/L (136-145)
[2020-06-20] MEDS: INSULIN LISPRO 100 UNIT/1 ML 3ML VIAL SQ SCH ×4 (06:00→18:20)
--- NOTE | 2020-06-20 07:00 | NUR ---
bedside shift report given voiced understanding, denies pain at this time, updatd on poc vocied understanding, stage 3 wound to saccrum. no othe co voiced call light in reach will continue to montior
[2020-06-20] MEDS: METFORMIN HCL 500 MG TAB PO SCH ×2 (08:00→17:58)
[2020-06-20 08:30] VITALS: BP 112/86
[2020-06-20] MEDS: PANTOPRAZOLE SODIUM 40 MG SUSPDR.PKT GT SCH (09:00)
[2020-06-20] MEDS: APIXABAN 5 MG TABLET GT SCH ×2 (09:00→17:56)
[2020-06-20] MEDS: FERROUS SULFATE 300 MG/5 ML LIQD GT SCH (09:00)
[2020-06-20 09:21] VITALS: BP 112/86
--- NOTE | 2020-06-20 10:17 | Progress Note ---
DATE: 06/20/2020 CHIEF COMPLAINT/HISTORY OF PRESENT ILLNESS: This is a 35-year-old white man, whose primary treating diagnosis was chronic respiratory failure a sequelae from result of COVID-19 infection with concomitant bilateral bacterial pneumonia. The patient is completely convalesced in regard to his COVID-19 viral infection as well as bilateral pneumonia. The patient was also diagnosed with pulmonary aspergillosis when he was at better [facility] in [facility], but this also has resolved. Moreover, he was diagnosed with Enterobacter cloacae urinary tract infection, which is also improving significantly with intravenous cefepime. The patient voices no complaints today. The patient's tracheostomy tube was decannulated yesterday. He is scheduled for G-tube decannulation tentatively today. Blood work today revealed AST and ALT of 70 and 166 respectively, which is improving. The patient's BUN and creatinine today is 30 and 1.22 respectively. The patient's PSA is 4.7. The patient's white blood cell count today is 7100 with 63% segmented neutrophils. Hemoglobin is 10.7 g/dL. The patient's prothrombin time and INR today is 14.6 and 1.08 respectively. The patient is on apixaban in the form of Eliquis 5 mg twice a day because he has a right lower extremity deep venous thrombosis. REVIEW OF SYSTEMS: As per HPI. PHYSICAL EXAMINATION: GENERAL: He is awake and alert. He is fully oriented. He is in no distress. Height 5 feet 11 inches, weight 170 pounds, BMI 23. VITAL SIGNS: Blood pressure is 110/86, pulse is 110, respiratory rate is 16, temperature 98.3, oxygen saturation is 100% on 2 L oxygen. INTEGUMENT: Skin is warm and dry. Slight pallor. No jaundice or diaphoresis. The patient has a 9 x 9 cm stage IV sacral decubitus ulcer is noted. NECK: Supple. Tracheostomy tube has been decannulated as previously stated. CARDIOVASCULAR: Distant heart sounds. Tachycardic rate with regular rhythm. The patient has an S4 gallop. LUNGS: No rales, no rhonchi or wheezes. Diminished breath sounds at the bases. ABDOMEN: Soft. He has a G-tube in place, which is not being utilized. No edema in the legs. He does have muscle wasting. NEUROLOGIC: No new deficits, but he does have residual left upper and left lower weakness from a stroke that he experienced in March 2020. DIAGNOSES: 1. Chronic respiratory failure (sequelae from COVID-19 infection), resolved. 2. Status post tracheostomy tube decannulation. 3. Physical debility. 4. Pulmonary aspergillosis, resolved. 5. Enterobacter cloacae urinary tract infection, resolving. 6. Cerebrovascular accident with residual left hemiparesis. 7. Elevated hepatic transaminases secondary to voriconazole, normalizing. 8. Stage IV sacral decubitus ulcer. 9. Type 2 diabetes mellitus. 10. Anemia secondary to chronic disease. 11. Right lower extremity deep venous thrombosis. 12. [id number] protein-calorie malnutrition. PLAN: 1. Nutritional optimization. 2. Tentative G-tube decannulation today. 3. Mobilize Physical Therapy. 4. Continue wound care to the patient's stage IV sacral decubitus ulcer. 5. We will discontinue irbesartan since the patient's BUN and creatinine is increasing and his blood pressure tends to be low. 6. Continue Eliquis 5 mg twice a day for a total 6 months in regard to his right lower extremity deep venous thrombosis. 7. Continue glucose control with metformin 500 mg twice a day. 8. Discharge planning for May. I spent 30 minutes in the care of this patient. MD OLVIN Blackburn/FREDY /[id number]
[2020-06-20] MEDS ORDERED: SODIUM CHLORIDE 0.9% 250ML 250 ML IV ONE (10:30)
--- NOTE | 2020-06-20 11:00 | NUR ---
DOWN TO OR LEFT IN STABLE CONDITION
--- NOTE | 2020-06-20 12:00 | NUR ---
SPOKE WITH DONNA IN WOUND CARE TO NOTIFY THAT PT WILL PROBABLY BE DISCHARGING ON SATURDAY 06/23 AND WILL NEED AN APPT IN THE OP WOUND CARE CENTER AT [facility] ON TUESDAY 06/26 CM FAXED OP WOUND CARE ORDER ALONG WITH CORRECTED FACE SHEET TO THE WOUND CARE CENTER AT [id number] CONFIRMATION REC'D CM HAS COPY OF FINANCIAL HARDSHIP APPLICATION FOR WOUND VAC AND WILL GIVE TO PT TO FILL OUT CM WILL FOLLOW UP WITH PT AND WOUND CARE NURSE TOMORROW
--- NOTE | 2020-06-20 13:08 | NUR ---
WOUND CARE CONSULT FOR NEGATIVE PRESSURE APPLICATION PATIENT DISCHARGE BEING PLANNED FOR INDIGENT CARE VISITS TO OUT PATIENT ALSO APPLICATION FOR [facility]CI PROGRAM IN PROCESS TO SEE IF PATIENT QUALIFIES FOR HOME UNIT PATIENT CURRENT MEASUREMENTS OF STAGE 4 SACRAL WOUND IS 8.5CM X 8CM X3CM UNDERMINING FROM 10 O'CLOCK TO 1 O'CLOCK WITH 3CM DEPTH NEGATIVE PRESSURE TREATMENT STARTED THIS AM WITH BLACK FOAM AND HUFFMAN AND NEPHEW UNIT CONTINUOUS SETTING AT 120 [facility] CHANGE SCHEDULE IS Friday AND FRIDAY DRESSING CHANGE FOR PLANNED DISCHARGE WILL BE DETERMINED UPON PENDING APPROVAL FOR NEGATIVE PRESSURE UNIT Addendum: 06/20/20 at 1318 by Dedrick Chan RN Amended: Links added.
[2020-06-20] MEDS ORDERED: METOCLOPRAMIDE HCL 10 MG/2ML VIAL ONE (14:10)
[2020-06-20] MEDS ORDERED: ETOMIDATE 2 MG/ML 10 ML INJ IV ONE (14:10)
[2020-06-20] MEDS ORDERED: LIDOCAINE HCL 2% LOCAL INJ 5 ML SDV VIAL INJ ONE (14:10)
[2020-06-20] MEDS ORDERED: PROPOFOL IV EMULSION 10 MG/ML 20 ML VIAL ONE (14:10)
--- NOTE | 2020-06-20 14:27 | NUR ---
BACK TO RM AAOX3, NO DISTRESS NOTED, O2 AT 3L NC, TOLERATING WELL, VS STABLE 114/88,104,16,100%, 97.5, BLOOD SUGAR 108, IVF INFUSING TO R AC 20G NO SS OF INFILTRATION NOTED, DSG TO ABDOMEN MINIMAL DRAINAGE NOTE, DRAINAGE CIRCLED, NO OTHER CO VOICED, CALL LIGHT IN REACH WILL CONTINUE TO MONITOR.
--- NOTE | 2020-06-20 15:16 | NUR ---
CM AND PT COMPLETED APPLICATIOIN FOR [facility] PROGRAM WITH I DR KUMAR SIGNED FORM FAXED FORM TO [phone] ANETA IN WOUND CARE NOTIFIED THAT FORM COMPLETED AND FAXED
[2020-06-20 16:40] VITALS: BP 114/88
[2020-06-20] MEDS: SODIUM CHLORIDE 0.9% 1000ML 1,000 ML IV SCH (17:00)
[2020-06-20 20:00] VITALS: BP 113/84
--- NOTE | 2020-06-20 20:00 | NUR ---
INITIAL ASSESSMENT COMPLETE, CALL LIGHT IN REACH, ALERT AND ORIENTED, IV INFUSING, PT INCONTINENT AT TIMES, STAGE 3 TO SACRAL AREA WITH WOUND VAC INTACT, NO DISTRESS NOTED, NECTAR THICK LIQUIDS, TRAC REVERSED TODAY, DRESSING INTACT, NO O2 NEEDED, PEG REVERSED TODAY, DRESSING INTACT, SLIGHT DRAINAGE NOTED, VS WNL
[2020-06-21] VITALS (8 sets, daily range): BP systolic 112–118; BP diastolic 77–83
[2020-06-21] MEDS: LEVALBUTEROL HCL SOLN NEBU 0.63 MG/3 ML NEB INH SCH ×4 (01:00→20:45)
[2020-06-21] MEDS: IPRATROPIUM BROMIDE 0.02% 2.5 ML NEB NEB SCH ×4 (01:00→20:45)
[2020-06-21] MEDS: SODIUM CHLORIDE 0.9% 1000ML 1,000 ML IV SCH ×5 (01:00→20:39)
[2020-06-21 05:35] LABS: BASOPHILS % 0.4 % (0.0-1.0); EOSINOPHILS # (AUTO) 0.2 (0.0-0.4); EOSINOPHILS % 3.2 % (0.0-6.0); HEMATOCRIT 33.4 % (38.2-49.6); HEMOGLOBIN 10.7 g/dL (14.0-18.0); LYMPHOCYTES # (AUTO) 1.5 (1.0-3.2); LYMPHOCYTES % 28.7 % (18.0-39.1); MEAN CORPUSCULAR HEMOGLOBIN 25.7 pg (28-32); MEAN CORPUSCULAR VOLUME 80.3 fL (81-99); MONOCYTES # (AUTO) 0.5 (0.2-0.8); MONOCYTES % 8.8 % (4.4-11.3); NEUTROPHILS # (AUTO) 3.1 (2.1-6.9); NEUTROPHILS % 58.5 % (38.7-80.0); PLATELET COUNT 312 x10e3/uL (140-360); RED BLOOD COUNT 4.16 x10e6/uL (4.3-5.7); RED CELL DISTRIBUTION WIDTH 14.7 % (11.7-14.4)
[2020-06-21 05:57] LABS: ALANINE AMINOTRANSFERASE 58 IU/L (0-55); ALBUMIN 2.7 g/dL (3.5-5.0); ALBUMIN/GLOBULIN RATIO 0.5 (0.8-2.0); ALKALINE PHOSPHATASE 156 IU/L (40-150); ANION GAP 11.7 mmol/L (8-16); BLOOD UREA NITROGEN 28 mg/dL (7-26); BUN/CREATININE RATIO 24 (6-25); CALCIUM 9.2 mg/dL (8.4-10.2); CARBON DIOXIDE 25 mmol/L (22-29); CHLORIDE 100 mmol/L (98-107); CREATININE, SERUM 1.15 mg/dL (0.72-1.25); EST GLOMERULAR FILTRATION RATE > 60 ML/MIN (60-); GLUCOSE 108 mg/dL (74-118); POTASSIUM 4.7 mmol/L (3.5-5.1); SODIUM 132 mmol/L (136-145)
--- NOTE | 2020-06-21 07:46 | NUR ---
ASSUMED CARE. AAOX3. ACYANOTIC. RESTING IN BED. NO DISTRESS NOTED. CALL LIGHT IN REACH. SIDE RAILS UP X2. BED LOW AND LOCKED.
--- NOTE | 2020-06-21 08:28 | Progress Note ---
DATE: 06/21/2020 CHIEF COMPLAINT/HISTORY OF PRESENT ILLNESS: This is a 35-year-old man, whose primary treating diagnosis is resolved respiratory failure as a sequelae of his previous COVID-19 infection with concomitant bilateral bacterial pneumonia. The patient's respiratory status is improved dramatically. Couple of days ago, his tracheostomy tube was decannulated. Also yesterday's G-tube was removed. The patient could not participate with physical therapy yesterday because he was experiencing symptomatic orthostatic hypotension. The patient states he does feel better today. Urine culture was performed on June 19, 2020, and no gross has been detected. Today's blood work revealed a BUN and creatinine of 28 and 1.15 respectively. The patient's sodium is 132, the patient's potassium 4.7, the patient's AST and ALT are 58 and 156 respectively. The patient's white blood cell count 5,300 with 58% segmented neutrophils. The patient's hemoglobin is 10.7 g/dL. PHYSICAL EXAMINATION: VITAL SIGNS: The patient's height is 5 feet 11 inches. The patient was weighed yesterday and weight is 129 pounds, his calculated body mass index 18. Of note, on February 18, 2020, the patient's weight was 228 pounds. Blood pressure 112/78, pulse 110, respiratory rate 18, temperature 98.3, oxygen 96% on room air. INTEGUMENT: Skin is warm and dry. Slight pallor. No jaundice or diaphoresis. The patient has a 9 x 9 cm stage IV sacral decubitus ulcer, that currently has wound VAC in place. HEENT: Anicteric sclerae. Moist mucous membranes. NECK: Supple. Tracheostomy tube has been decannulated and the stoma is currently dressed. CARDIOVASCULAR: Tachycardic rate with regular rhythm. The patient has an S4 gallop. LUNGS: Slightly diminished breath sounds at the bases, otherwise unremarkable. ABDOMEN: Soft. G-tube has been decannulated. Normal bowel sounds. Nontender. EXTREMITIES: No edema. He does have muscle wasting in the legs. NEUROLOGIC: He does have residual left upper and left lower extremity weakness. It is improving, though. DIAGNOSES: 1. Chronic respiratory failure (sequelae from COVID-19 infection), resolved. 2. Status post tracheostomy tube decannulation. 3. Status post G-tube decannulation. 4. Physical debility/ICU myopathy. 5. Cerebrovascular accident in March 2020, with residual left hemiparesis. 6. Enterobacter cloacae urinary tract infection, resolved.. 7. Pulmonary aspergillosis, resolved. 8. Elevated hepatic transaminases secondary to voriconazole, normalizing. 9. Stage IV sacral decubitus ulcer. 10. Type 2 diabetes mellitus. 11. Underweight BMI 18. 12. Anemia secondary to chronic disease. 13. Right lower extremity deep venous thrombosis. 14. Xasinswg-ij-iafomf protein-calorie malnutrition. 15. Autonomic dysfunction, likely. PLAN: 1. Continue daily physical therapy. 2. Continue wound care, specifically wound VAC. The patient has stage IV sacral decubitus ulcer. 3. Continue nebulized bronchodilators. 4. Hold blood pressure medications namely irbesartan, since the patient is experiencing symptomatic orthostatic hypotension. 5. Continue intravenous fluids. 6. Follow electrolytes and renal function. 7. Continue Eliquis 5 mg twice a day for his right lower extremity deep venous thrombosis. 8. Optimize the patient's nutritional status. 9. Discharge planning for Tuesday June 23, 2020. I spent 25 minutes in the care of this patient. MD OLVIN Blackburn/FREDY /[id number] MTDD
--- NOTE | 2020-06-21 08:32 | Operative Report ---
DATE OF PROCEDURE: 06/20/2020 SURGEON: Pablo Rodriguez MD PROCEDURE: EGD with removal of G-tube. INDICATIONS FOR EGD: The patient is status post G-tube insertion, now able to swallow. The patient is in for an EGD, NG tube removal. MEDICATIONS: The patient was done under MAC, please see anesthesiologist's note. PROCEDURE IN DETAIL: With the patient in the supine position, a flexible fiberoptic Olympus gastroscope was introduced into the esophagus under direct visualization without any difficulty. The esophagus appeared to be within normal limits. The scope was then advanced with ease into the stomach, traversing a small sliding hiatal hernia. Mucosa overlying the antrum and the body revealed some patchy areas of erythema. The pylorus was of normal contour and shape, it was intubated with ease and the scope was advanced all the way to the second portion of the duodenum. The scope was then withdrawn slowly, mucosa overlying the proximal second portion and the duodenal bulb appeared to be within normal limits. The scope was then withdrawn back into the stomach and retroflexed, and a moderate amount of retained undigested food was noted in the fundus of the stomach precluding visualization of the fundus. The scope was then straightened out. A tube was noted to be in good position and it was removed after deflating the balloon. There was an approximately 1.5 cm submucosal lesion versus extrinsic compression noted in the midbody of the stomach along the anterior wall with normal overlying mucosa. The scope was subsequently withdrawn. The patient tolerated the procedure well. IMPRESSION: 1. Normal esophagus. 2. Small sliding hiatal hernia. 3. Gastritis, mild. 4. G-tube removed in the usual fashion. 5. Approximately, 1.5 cm submucosal lesion versus an extrinsic compression noted in the midbody of the stomach along the anterior wall. The patient overall tolerated the procedure well. Pablo Rodriguez MD [facility]/MODL /[id number] cc: Gino Chau MD
--- NOTE | 2020-06-21 08:48 | Progress Note ---
DATE: SUBJECTIVE: Mr. Love is doing well. There are no new complaints. PHYSICAL EXAMINATION: GENERAL: She is currently alert and oriented. VITAL SIGNS: Stable. Afebrile. HEENT: Not icteric. NECK: Supple. CHEST: Clear. HEART: S1 and S2 normal. ABDOMEN: Soft. LABORATORY DATA: Reviewed, chart reviewed. IMPRESSION: Pneumonia resolved, COVID-19 improved. Discharge planning discussed with the medical team. MD HARVEY Alexis/MODL /[id number]
[2020-06-21] MEDS: FERROUS SULFATE 325 MG TAB PO SCH (09:44)
[2020-06-21] MEDS: APIXABAN 5 MG TABLET PO SCH ×2 (09:44→16:31)
[2020-06-21] MEDS: METFORMIN HCL 500 MG TAB PO SCH ×2 (09:44→16:31)
[2020-06-21] MEDS: PANTOPRAZOLE SOD 40 MG TABEC PO SCH (09:44)
[2020-06-21] MEDS ORDERED: SODIUM CHLORIDE 0.9% 250ML 250 ML IV ONE ×2 (11:15→12:00)
--- NOTE | 2020-06-21 11:51 | NUR ---
WOUND CARE CONSULT FOR F/U ASSESSMENT OF VAC FUNCTION AND WOUND CONDITION NO NEGATIVE CHANGES NOTED TO WOUND VAC APPLIED AND FUNCTIONING NOTED NON PURULENT LIGHT PINK TINGED DRAINAGE TO CANISTER Addendum: 06/21/20 at 1154 by Dedrick Chan RN Amended: Links added.
[2020-06-21] MEDS: INSULIN LISPRO 100 UNIT/1 ML 3ML VIAL SQ SCH ×4 (12:30→20:51)
--- NOTE | 2020-06-21 15:49 | NUR ---
Nutrition Intervention Note RD Recommendation(s) for Physician: - Recommend 2000 ADA diet and texture modification per speech therapy - Recommend Glucerna nutrition supplement BID for added nutrition - Recommend Azar 1 packet BID to promote wound healing. - Recommend vitamin C and zinc sulfate to promote wound healing Plan of Care: RD following, monitoring for tolerance and adequacy, oral supplement recommendation Nutrition reason for involvement: follow up RD Assessment 06/21: Follow up. Chart reviewed. It is recorded that pt is consuming 75-100% of meals and is ordered Glucerna and Azar BID. Pt also is now ordered double portions. MD note indicates pts PEG tube was removed and tracheostomy tube was decannulated. Pt has weights ranging from 129-171 lbs during this admission. Suspect weight error. Will continue to monitor. 06/16: Follow up. Chart reviewed. Speech therapy evaluated pt and recommended a mechanical soft diet when nectar thick liquids. MD note indicates pt is eating 100% of his meals without difficulty. PEG tube is not being used. Recommendations provided. Will continue to monitor. 06/13: 35 YOM admitted for chronic pneumothorax, assessed today per EN on admit. Pt know from prior admission, previously intubated in ICU with COVID-19 and requiring transfer to [facility] on 04/15 for thoracotomy and trach placement. Pt with prior cardiac arrest and CVA with residual L hemiparesis. Pt now with trach and PEG in place, TF ordered today- tolerance pending. Pt with significant 20% wt loss since admit on 02/20, 42# in 3.5 months. Chart reviewed. In light of renal indices and lytes current TF remains appropriate. Rec's provided to promote wound healing for stage III PU. Will continue to monitor. Principal Problems/Diagnoses: chronic pneumothorax PMH: Uncontrolled type 2 diabetes mellitus, COVID-19, CVA with L hemiparesis, thoracotomy GI: last BM 06/21 x 2 Skin: sacral stage 4 per wound care Labs: 06/21: Na 132, K 4.7, BUN 28, Cr 1.15, Glu 108, ALT 58 06/16: Na 136, K 4.0, BUN 32, Cr 0.96, Glu 122, AST 83, ALT 239 06/13: Na 146, K 4.1, BUN 56, Cr 1.05, Gluc 175, Ca 9.5 Meds: insulin, ferrous sulfate, protonix, metformin, zofran Ht: 71 in Wt: 129 lbs (06/20) 171 lb (06/12); Suspect weight error. noted prior admit wt of 213 lb (02/20) BMI: 23.4 kg/m2 - using wt of 171 lbs IBW:172 lb Malnutrition Evaluation (06/16/20) -unable to fully assess at this time, will evaluate at follow up Energy intake: Adequate PO intake reported at this time Weight loss: >7.5% in ~ 3 months Fat loss: unable to perform NFPE at this time Muscle loss: unable to perform NFPE at this time Supporting Evidence: Fluid accumulation: no edema per MD note Functional Status: unable to assess Nutrition Prescription (Diet Order): regular diet, mechanical soft/nectar thick liquids Estimated Nutritional Needs: Calories: 4977-2935 kcal/day (25-30 kcal/kg/day) Weight used : CBW 77.7 kg Protein : 78-140 g protein/day (1-1.8 gram/kg/day ) Weight used: CBW 77.7 kg, additional protein for wound healing Diet Adequacy: meeting calorie needs, meeting protein needs Diet Education Needs Assessment: RD is available for diet education as needed Nutrition Care Level: moderate Nutrition Diagnosis: Increased nutrient needs related to increased demand for protein and kcal as evidenced by sacral pressure ulcer. Goal: Patient will meet 75-100% of estimated needs by follow up Progress: progressing Interventions: -carbohydrate and texture modified diet, Recommended Modifications, Liquid supplement, MVI/minerals Monitoring/Evaluation: -Total energy intake, Total protein intake, Vitamin/minerals, liquid supplement Signed: Hazel Alonzo RD, LD
--- NOTE | 2020-06-21 18:24 | NUR ---
Mr. Love is doing well. There are no new complaints. PHYSICAL EXAMINATION: GENERAL: She is currently alert and oriented. VITAL SIGNS: Stable. Afebrile. HEENT: Not icteric. NECK: Supple. CHEST: Clear. HEART: S1 and S2 normal. ABDOMEN: Soft. LABORATORY DATA: Reviewed, chart reviewed. IMPRESSION: Pneumonia resolved, COVID-19 improved. Discharge planning discussed with the medical team.cont as ordered
--- NOTE | 2020-06-21 20:35 | NUR ---
PATIENT IS RESTING IN BED IN STABLE CONDITION, NO SIGNS OF RESPIRATORY DISTRESS NOTED. IV FLUIDS ARE RUNNING AT ORDERED RATE AND PATIENT VOICES NO PAIN AT THIS TIME. WOUND TO SACRUM NOTED AND WOUND VAC IS IN PLACE. BED IS IN LOWEST POSITION, BOTH SIDE RAILS ARE UP, CALL LIGHT IS WITHIN EASY REACH, WILL CONTINUE TO MONITOR.
[2020-06-21] MEDS: TRAMADOL HCL 50 MG TAB PO PRN (23:10)
[2020-06-22] VITALS (8 sets, daily range): BP systolic 101–145; BP diastolic 70–95
[2020-06-22] MEDS: IPRATROPIUM BROMIDE 0.02% 2.5 ML NEB NEB SCH ×4 (01:00→20:05)
[2020-06-22] MEDS: LEVALBUTEROL HCL SOLN NEBU 0.63 MG/3 ML NEB INH SCH ×4 (01:00→20:05)
[2020-06-22] MEDS: SODIUM CHLORIDE 0.9% 1000ML 1,000 ML IV SCH ×4 (04:31→23:25)
[2020-06-22 05:11] LABS: BASOPHILS % 0.3 % (0.0-1.0); EOSINOPHILS # (AUTO) 0.1 (0.0-0.4); EOSINOPHILS % 1.8 % (0.0-6.0); HEMOGLOBIN 9.9 g/dL (14.0-18.0); LYMPHOCYTES # (AUTO) 1.5 (1.0-3.2); LYMPHOCYTES % 22.6 % (18.0-39.1); MEAN CORPUSCULAR HEMOGLOBIN 26.1 pg (28-32); MEAN CORPUSCULAR VOLUME 79.2 fL (81-99); MONOCYTES # (AUTO) 0.7 (0.2-0.8); MONOCYTES % 9.9 % (4.4-11.3); NEUTROPHILS # (AUTO) 4.4 (2.1-6.9); NEUTROPHILS % 65.1 % (38.7-80.0); PLATELET COUNT 292 x10e3/uL (140-360); RED BLOOD COUNT 3.79 x10e6/uL (4.3-5.7); RED CELL DISTRIBUTION WIDTH 14.5 % (11.7-14.4)
[2020-06-22 05:36] LABS: ALANINE AMINOTRANSFERASE 42 IU/L (0-55); ALBUMIN 2.5 g/dL (3.5-5.0); ALBUMIN/GLOBULIN RATIO 0.5 (0.8-2.0); ALKALINE PHOSPHATASE 140 IU/L (40-150); ANION GAP 11.5 mmol/L (8-16); BLOOD UREA NITROGEN 23 mg/dL (7-26); BUN/CREATININE RATIO 24 (6-25); CALCIUM 9.1 mg/dL (8.4-10.2); CARBON DIOXIDE 23 mmol/L (22-29); CHLORIDE 105 mmol/L (98-107); CREATININE, SERUM 0.97 mg/dL (0.72-1.25); EST GLOMERULAR FILTRATION RATE > 60 ML/MIN (60-); GLUCOSE 110 mg/dL (74-118); POTASSIUM 4.5 mmol/L (3.5-5.1); SODIUM 135 mmol/L (136-145)
--- NOTE | 2020-06-22 07:26 | NUR ---
ASSUMED CARE. AAOX3. RESTING IN BED. ACYANOTIC. NO DISTRESS NOTED. CALL LIGHT IN REACH. SIDE RAILS UP X2. BED LOW AND LOCKED.
[2020-06-22] MEDS: INSULIN LISPRO 100 UNIT/1 ML 3ML VIAL SQ SCH ×4 (07:30→21:00)
[2020-06-22] MEDS: APIXABAN 5 MG TABLET PO SCH ×2 (08:11→16:44)
[2020-06-22] MEDS: PANTOPRAZOLE SOD 40 MG TABEC PO SCH (08:11)
[2020-06-22] MEDS: FERROUS SULFATE 325 MG TAB PO SCH (08:11)
[2020-06-22] MEDS: METFORMIN HCL 500 MG TAB PO SCH ×2 (08:11→16:44)
[2020-06-22] MEDS ORDERED: ONDANSETRON HCL 4 MG ORAL DISINTEGRATING TAB PO PRN (08:15)
--- NOTE | 2020-06-22 09:47 | NUR ---
AAOX3. ACYANOTIC. CURRENTLY SITTING IN CHAIR AT BEDSIDE. NO DISTRESS NOTED. CALL LIGHT IN REACH,.
--- NOTE | 2020-06-22 11:55 | Diagnostic Imaging Report ---
Modified Barium Swallow: Clinical History: Aspiration Comparison: None Fluoro time in minutes: 1.7 Radiation dose: 9.8 mGy air Kerma. Number of images: Multiple Report: The patient ingested various consistencies of barium with a speech pathologist in attendance. A full report from speech pathology will follow. Impression: Fluoroscopy service provided to speech pathology as above. Signed by: Dionisio Palmer MD on 06/22/2020 11:52 AM
--- NOTE | 2020-06-22 17:59 | NUR ---
WOUND VAC DELIVERED TO PT'S ROOM TODAY TO BE APPLIED BY WOUND CARE TOMORROW PRIOR TO DC HOME OP WOUND CARE APPT AT [facility] ON FRIDAY; PT'S FATHER WILL BRING HIM ORDERS FOR HOME HEALTH SKILLED NURSE, PT/OT EVAL SENT TO [facility] PER DR KUMAR'S RECOMENDATION SPOKE WITH RISHI CHERY AT [facility] WHO STATES THEY WILL REVIEW AND CONSIDER TAKING MILLY CASE PH: [phone] FAX: [phone] CLINICALS ALONG WITH ORDERS FAXED; CONFIRMATION REC'D
[2020-06-22] MEDS ORDERED: ALENDRONATE SOD70 MG PO (18:31)
--- NOTE | 2020-06-22 20:15 | NUR ---
PATIENT IS RESTING IN RECLINER IN STABLE CONDITION, NO SIGNS OF RESPIRATORY DISTRESS NOTED. IV FLUIDS ARE RUNNING AT ORDERED RATE AND PATIENT VOICES NO PAIN AT THIS TIME. WOUND TO SACRUM NOTED AND WOUND VAC IS IN PLACE. PATIENT VOICED UNDERSTANDING TO USE CALL LIGHT FOR ASSISTANCE AND IS WITHIN EASY REACH, WILL CONTINUE TO MONITOR.
--- NOTE | 2020-06-22 22:30 | NUR ---
PATIENT SUCCESSFULLY TRANSFERRED FROM RECLINER TO BED SAFELY. PATIENT VOICED WANTING A BATH AND WILL BE ADDRESSED PROMPTLY.
--- NOTE | 2020-06-22 23:32 | Progress Note ---
DATE: SUBJECTIVE: Mr. Love is doing well, remains weak, but overall better. REVIEW OF SYSTEMS: Otherwise unremarkable. PHYSICAL EXAMINATION: GENERAL: Currently, alert and oriented. VITAL SIGNS: Stable, afebrile. HEENT: He is not icteric. NECK: Supple. CHEST: Clear. HEART: S1 and S2. No murmurs. ABDOMEN: Soft. IMPRESSION: Stable from Infectious Disease point of view. Discharge plan noted. No new recommendations. MD HARVEY Alexis/MODL /[id number]
[2020-06-23] VITALS: BP 137/88
[2020-06-23 04:00] VITALS: BP 124/82
[2020-06-23 05:00] LABS: BASOPHILS % 0.5 % (0.0-1.0); EOSINOPHILS # (AUTO) 0.1 (0.0-0.4); EOSINOPHILS % 1.4 % (0.0-6.0); HEMATOCRIT 27.8 % (38.2-49.6); HEMOGLOBIN 9.2 g/dL (14.0-18.0); LYMPHOCYTES # (AUTO) 1.3 (1.0-3.2); MEAN CORPUSCULAR HEMOGLOBIN 26.4 pg (28-32); MEAN CORPUSCULAR HGB CONC 33.1 g/dL (31-35); MEAN CORPUSCULAR VOLUME 79.7 fL (81-99); MONOCYTES # (AUTO) 0.6 (0.2-0.8); MONOCYTES % 9.8 % (4.4-11.3); NEUTROPHILS # (AUTO) 3.6 (2.1-6.9); NEUTROPHILS % 64.8 % (38.7-80.0); PLATELET COUNT 257 x10e3/uL (140-360); RED BLOOD COUNT 3.49 x10e6/uL (4.3-5.7); RED CELL DISTRIBUTION WIDTH 14.4 % (11.7-14.4)
[2020-06-23 05:25] LABS: ALANINE AMINOTRANSFERASE 34 IU/L (0-55); ALBUMIN 2.4 g/dL (3.5-5.0); ALBUMIN/GLOBULIN RATIO 0.5 (0.8-2.0); ALKALINE PHOSPHATASE 128 IU/L (40-150); ANION GAP 11.5 mmol/L (8-16); BLOOD UREA NITROGEN 18 mg/dL (7-26); BUN/CREATININE RATIO 19 (6-25); CALCIUM 8.6 mg/dL (8.4-10.2); CARBON DIOXIDE 21 mmol/L (22-29); CHLORIDE 107 mmol/L (98-107); CREATININE, SERUM 0.97 mg/dL (0.72-1.25); EST GLOMERULAR FILTRATION RATE > 60 ML/MIN (60-); GLUCOSE 111 mg/dL (74-118); POTASSIUM 4.5 mmol/L (3.5-5.1); SODIUM 135 mmol/L (136-145)
[2020-06-23] MEDS: INSULIN LISPRO 100 UNIT/1 ML 3ML VIAL SQ SCH (07:30)
[2020-06-23] MEDS: LEVALBUTEROL HCL SOLN NEBU 0.63 MG/3 ML NEB INH SCH (07:45)
[2020-06-23] MEDS: IPRATROPIUM BROMIDE 0.02% 2.5 ML NEB NEB SCH (08:00)
[2020-06-23 09:07] VITALS: BP 137/90
[2020-06-23] MEDS: METFORMIN HCL 500 MG TAB PO SCH (09:45)
[2020-06-23] MEDS: APIXABAN 5 MG TABLET PO SCH (09:46)
[2020-06-23] MEDS: FERROUS SULFATE 325 MG TAB PO SCH (09:46)
[2020-06-23] MEDS: PANTOPRAZOLE SOD 40 MG TABEC PO SCH (09:46)
[2020-06-23] MEDS ORDERED: FERROUS SULFAT325 M1 PO (09:51)
[2020-06-23] MEDS ORDERED: METFORMIN HCL500 MG PO (09:51)
[2020-06-23 10:25] VITALS: BP 137/90
--- NOTE | 2020-06-23 10:28 | Discharge Summary ---
ADMIT DIAGNOSES: 1. Chronic respiratory failure with tracheostomy tube in place. 2. Chronic respiratory failure as sequela from COVID-19 viral pneumonia with acute respiratory distress syndrome, resolved. 3. COVID-19 viral infection, resolved. 4. Physical deconditioning. 5. Severe protein-calorie malnutrition. 6. Stage IV sacral decubitus ulcer. 7. Enterobacter cloacae urinary tract infection. 8. Pulmonary aspergillosis. 9. Cerebrovascular disease (cerebrovascular accident in March of 2020 with residual left hemiparesis). 10. Anemia secondary to chronic disease. 11. Type 2 diabetes mellitus. 12. Right lower extremity deep venous thrombosis (diagnosed in February of 2020).. DISCHARGE DIAGNOSES: 1. Chronic respiratory failure as sequela of COVID-19 infection with concomitant bilateral bacterial pneumonia, resolved. 2. COVID-19 infection, resolved. 3. Status post tracheostomy tube decannulation. 4. Status post G-tube decannulation. 5. Physical deconditioning. 6. Orthostasis secondary to autonomic dysfunction, resolving. 7. Severe protein calorie malnutrition, improving. 8. Cerebrovascular disease (history of cerebrovascular accident in March of 2020 with residual left hemiparesis). 9. Enterobacter cloacae urinary tract infection, resolved. 10. Pulmonary aspergillosis, resolved. 11. Anemia secondary to chronic disease. 12. Type 2 diabetes mellitus. 13. Stage IV sacral decubitus ulcer. 14. Right lower extremity deep venous thrombosis. HOSPITAL COURSE: This is a 35-year-old man, who initially was admitted to [facility] on February 18, 2020 with diagnosis of acute respiratory failure and bilateral pneumonia as well as acute renal insufficiency. During that hospitalization, he was found to be COVID-19 positive and was subsequently intubated and placed on a ventilator because of acute respiratory failure. The patient unfortunately developed adult respiratory distress syndrome as well as a right lower extremity deep venous thrombosis. The patient had a long complicated hospital course. The patient was transferred to [facility] on April 15, 2020 for higher level of care since he had complex loculated right-sided pneumothorax that required VATS. At [facility], the patient actually underwent open thoracoscopy, which he tolerated well. The patient spent approximately 8 weeks at [facility]. During that hospitalization, he was diagnosed with Enterobacter cloacae urinary tract infection as well as pulmonary aspergillosis. The patient completed 6 weeks of oral voriconazole in regard for the pulmonary aspergillosis. The patient completed 3 weeks of intravenous cefepime for the Enterobacter cloacae urinary tract infection. The patient was transferred from [facility] to [facility] on June 12, 2020, During this hospitalization, the patient received a few days of oral voriconazole, but it had to be discontinued because of elevated hepatic transaminases. Once the voriconazole was discontinued, his hepatic transaminases normalized completely. The patient also received daily wound care to his stage IV sacral decubitus ulcer. The wound during this hospitalization, had adequate granulation tissue and did not show any signs of infection, specifically no fibrinous or purulent slough was appreciated. During the hospitalization, the patient did receive oral apixaban in the form of Eliquis because of his right lower extremity deep venous thrombosis. However, the patient had been on anticoagulation for this deep venous thrombosis since February 24, 2020. Thus he had been on oral anticoagulation for 4 months. The patient never suffered any pulmonary embolism during his prolonged hospital course. The patient did receive daily physical therapy during this hospital stay. The patient was walking up to 70 feet with a rolling walker during this hospitalization. The patient's tracheostomy tube as well as the G-tube were both decannulated during this hospitalization. Dr. Severiano Crow, the investor relations director, saw the patient during this hospitalization and he removed the tracheostomy tube. The patient was seen by bookkeeping clerks supervisor during this hospitalization namely, Dr. Pablo Rodriguez, who removed the G-tube. The patient was also seen by Infectious Disease specialist during this hospitalization namely, Dr. Hillman. The patient underwent modified barium swallow prior to discharge during the stay and it did not reveal any obvious aspiration of liquids. The patient was advanced to a regular diet, which he tolerated quite well. The patient did have episodes of symptomatic orthostatic hypotension during this hospitalization, but it was felt to be secondary to his prolonged bed immobilization as well as likely autonomic dysfunction. On the day the patient was discharged, his white blood cell count was 5600 with normal differential. Hemoglobin was 9.2 g/dL. Also, on the day of discharge, the patient's BUN and creatinine was 18 and 0.97 respectively. The patient's potassium at discharge was 4.5. The patient's AST and ALT were 14 and 34 on discharge. However, on discharge, his albumin was low at 2.4 g/dL. Of note, when the patient was admitted, his height was 5 feet 11 inches and 232 pounds. On the day the patient was discharged, June 23, 2020, the patient's height was 5 feet 11 with 129 pounds with a calculated body mass index of 18. The patient's condition on discharge was stable. DISCHARGE MEDICATIONS: 1. Ferrous sulfate 325 mg daily. 2. Metformin 500 mg b.i.d. 3. Ensure Max Protein one can twice a day. FOLLOWUP INSTRUCTIONS: The patient will follow up with Dr. Gino Chau, his new primary care physician within 1 week. Outpatient Wound Care was arranged at [facility]. Moreover, home health nursing with home physical therapy was arranged prior to discharge. MD OLVIN Blackburn/FREDY /[id number] cc: MD Severiano Alexis MD MTDD
--- OUTSIDE RECORDS SUMMARY | 2020-06-23 14:03 | XMS REPORT | Clinical Summary ---
Author Author [facility] Address Unknown Phone Unavailable Care Team Providers Care Student Liaison Officer Name Role Phone PCP Unavailable Allergies No Known Allergies Medications End Date Status Medication Sig Dispensed Refills Start Date Active acetaminophen 650 mg/20.3 Take 20.3 mLs 500 mL 0 mL Soln (650 mg 0 total) by mouth every 6 (six) hours as needed. Active apixaban (ELIQUIS) 5 mg Take 1 tablet 60 tablet 0 Tab tablet (5 mg total) 0 by mouth 2 (two) times daily. Active sterile water for Inject 1 g 8 vial 0 06/12/20 2 injection Soln 10 mL with intravenously 0 cefePIME 1 gram SolR 1 g every 12 (twelve) hours. 06/26/2020 Active chlorhexidine (PERIDEX) Use as 120 mL 0 0.12 % solution directed 15 0 mLs in the mouth or throat 2 (two) times daily for 14 days. Active famotidine (PEPCID) 20 MG Take 1 tablet 60 tablet 0 tablet (20 mg total) 0 by mouth every 12 (twelve) hours. 06/13/2021 Active ferrous sulfate 300 mg Take 5 mLs 150 mL 0 (60 mg iron)/5 mL syrup (300 mg 0 total) by mouth daily. 06/13/2021 Active fludrocortisone 1 tablet (0.1 30 tablet 0 06/13/20 2 (FLORINEF) 0.1 mg tablet mg total) by 0 G-tube route daily. 07/12/2020 Active ipratropium (ATROVENT) Take 2.5 mLs 75 mL 0 0.02 % nebulizer solution (0.5 mg 0 total) by nebulization every 6 (six) hours for 30 days. 06/12/2021 Active levalbuterol (XOPENEX) Take 3 mLs 3 mL 0 0.63 mg/3 mL nebulizer (0.63 mg 0 solution total) by nebulization every 6 (six) hours. 07/12/2020 Active lidocaine (LIDODERM) 5 % Place 1 patch 30 patch 0 patch onto the skin 0 daily for 30 days Remove & Discard patch within 12 hours or as directed by MD. Active melatonin 10 mg Tab 10 mg by Feed 30 tablet 0 05/25 Tube route 0 every night as needed. Active ondansetron (ZOFRAN) 4 Inject 2 mLs 20 mL 0 mg/2 mL injection (4 mg total) 0 intravenously every 12 (twelve) hours as needed. 07/12/[address] 1 drop 15 mL 0 02 (LIQUIFILM TEARS) 1.4 % into both 0 ophthalmic solution eyes 4 (four) times daily as needed for up to 30 days. 06/16/2020 polyethylene glycol Take 17 g by 14 each 0 06/13 (GLYCOLAX) 17 gram packet mouth daily 0 for 3 days. 06/22/2020 voriconazole (VFEND) 200 Take 5 mLs 75 mL 0 0 mg/5 mL (40 mg/mL) (200 mg 0 suspension total) by mouth every 12 (twelve) hours for 10 days. Active Problems Problem Noted Date Pulmonary hypertension 05/19/2020 Sinus tachycardia 05/19/2020 Respiratory alkalosis 05/17/2020 Metabolic alkalosis 05/17/2020 Acute hypoxemic respiratory failure 05/17/2020 Orthostatic hypotension 05/15/2020 Chronic pneumothorax 04/15/2020 Type 2 diabetes mellitus, with long-term current use of insulin 04/15/2020 History of 2019 novel coronavirus disease (COVID-19) 04/15/2020 DVT (deep venous thrombosis) 04/15/2020 Essential hypertension 04/15/2020 Renal insufficiency 04/15/2020 Cardiopulmonary arrest 04/15/2020 Obesity 04/15/2020 Decubitus ulcer 04/15/2020 Tracheostomy tube present 04/15/2020 Sepsis 04/15/2020 Gastrointestinal tube in situ 04/15/2020 Encounters Care Team Description Date Type Specialty Justen Mendes RN 06/02/2020 Abstract Transplant 05/24/2020 Travel Jeramie Sin Jr., MD EVACUATION,HEMATOMA 05/11/2020 Surgery Corona Barrett MD 05/11/2020 Anesthesia Event Carlton Mclaughlin MD Chronic pneumothorax (Primary Dx) 05/11/2020 Orders Only Intensive Care Carlton Mclaughlin MD Chronic pneumothorax (Primary Dx) 05/11/2020 Outside Orders Cardiology Carlton Mclaughlin MD THORACOSCOPY (VATS),DECORTICATION 04/24/2020 Surgery [place] 04/24/2020 Anesthesia Event Carlton Mclaughlin MD Cardiopulmonary arrest (HCC); Chronic pneumothorax; Pressure injury of contiguous region involving buttock and hip, stage 2, unspecified laterality (HCC); Deep vein thrombosis (DVT) of lower extremity, unspecified chronicity, unspecified laterality, unspecified vein (HCC); History of 2019 novel coronavirus disease (COVID-19); Tracheostomy tube present (HCC); Type 2 diabetes mellitus without complication, with long-term current use of insulin (HCC); Bilateral pneumothorax; Respiratory insufficiency; Pneumonia of both lungs due to infectious organism, unspecified part of lung; Acute respiratory failure with hypoxia and hypercapnia (HCC); 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 2-4 time s a month 05/24/2020 How many drinks containing alcohol do you have on 1 or 2 05/24/2020 a typical day when you are drinking? How often do you have six or more drinks on one Less than monthly 05/24/2020 occasion? Sex Assigned at Date Recorded Not on file Industry Job Start Date Occupation Not on file Not on file Not on file Travel End Travel History Travel Start No recent travel history available. Last Filed Vital Signs Time Taken Vital Sign Reading 06/12/2020 7:46 AM CDT Blood Pressure 137/92 06/12/2020 7:50 AM CDT Pulse 101 06/12/2020 7:46 AM CDT Temperature 36.8 C (98.2 F) 06/12/2020 7:50 AM CDT Respiratory Rate 10 06/12/2020 7:50 AM CDT Oxygen Saturation 99% 06/12/2020 7:50 AM CDT Inhaled Oxygen 28% Concentration 06/12/2020 6:12 AM CDT Weight 78.2 kg (172 lb 6.4 oz) 04/15/2020 11:00 PM CDT Height 180.3 cm (5' 11") 06/12/2020 6:12 AM CDT Body Mass Index 24.04 Plan of Treatment Health Maintenance Due Date Last Done Comments PNEUMOCOCCAL VACCINE 2-64 1991 YEARS AT RISK (1 of 1 - PPSV23) DIABETIC EYE EXAM 1995 DIABETIC FOOT EXAM 1995 URINE MICROALBUMIN 1995 LIPID PANEL 02/04/2020 INFLUENZA VACCINE (#1) 2020 HEMOGLOBIN A1C 10/16/2020 04/15/2020 Procedures Comments Procedure Name Priority Date/Time Associated Diag nosis RHYTHM STRIP - SCAN 06/16/2020 4:10 PM CDT RHYTHM STRIP - SCAN 06/14/2020 9:00 AM CDT RHYTHM STRIP - SCAN 06/14/2020 9:00 AM CDT POCT-GLUCOSE METER Routine 06/12/2020 11:43 AM CDT POCT-GLUCOSE METER Routine 06/12/2020 5:58 AM CDT BASIC METABOLIC PANEL (7) Routine 06/12/2020 5:17 AM CDT CBC W/PLT COUNT & AUTO Routine 06/12/2020 DIFFERENTIAL 3:54 AM CDT CBC W/PLT COUNT & AUTO Routine 06/12/2020 DIFFERENTIAL 3:54 AM CDT POCT-GLUCOSE METER Routine 06/12/2020 12:19 AM CDT TRANSFUSION SERVICE 06/11/2020 REPORT - SCAN 6:01 PM CDT POCT-GLUCOSE METER Routine 06/11/2020 5:31 PM CDT POCT-GLUCOSE METER Routine 06/11/2020 11:14 AM CDT LACTATE DEHYDROGENASE Routine 06/11/2020 (LDH) 5:31 AM CDT C-REACTIVE PROTEIN Routine 06/11/2020 5:31 AM CDT COMPREHENSIVE METABOLIC Routine 06/11/2020 PANEL 5:31 AM CDT POCT-GLUCOSE METER Routine 06/11/2020 5:30 AM CDT CBC W/PLT COUNT & AUTO Routine 06/11/2020 DIFFERENTIAL 3:51 AM CDT PROCALCITONIN Routine 06/11/2020 3:51 AM CDT CBC W/PLT COUNT & AUTO Routine 06/11/2020 DIFFERENTIAL 3:51 AM CDT D-DIMER Routine 06/11/2020 3:50 AM CDT FERRITIN Routine 06/11/2020 3:50 AM CDT OCCULT BLOOD, STOOL Routine 06/11/2020 12:15 AM CDT POCT-GLUCOSE METER Routine 06/11/2020 12:05 AM CDT PREPARE LEUKO-REDUCED RBC Routine 06/10/2020 11:54 PM CDT TRANSFUSION SERVICE 06/10/2020 REPORT - SCAN 6:02 PM CDT POCT-GLUCOSE METER Routine 06/10/2020 5:48 PM CDT SARS-COV2/RT-PCR ([facility] & Routine 06/10/2020 REF LABS) 1:58 PM CDT URINALYSIS W/ REFLEX Routine 06/10/2020 URINE CULTURE 1:31 PM CDT URINE CULTURE Routine 06/10/2020 1:31 PM CDT POCT-GLUCOSE METER Routine 06/10/2020 12:01 PM CDT XR CHEST 1 VIEW Routine 06/10/2020 PORTABLE/BEDSIDE 11:47 AM CDT POCT-GLUCOSE METER Routine 06/10/2020 5:49 AM CDT CBC W/PLT COUNT & AUTO Routine 06/10/2020 DIFFERENTIAL 4:54 AM CDT MAGNESIUM Routine 06/10/2020 4:54 AM CDT PHOSPHORUS Routine 06/10/2020 4:54 AM CDT CBC W/PLT COUNT & AUTO Routine 06/10/2020 DIFFERENTIAL 4:54 AM CDT BASIC METABOLIC PANEL (7) Routine 06/10/2020 4:54 AM CDT POCT-GLUCOSE METER Routine 06/09/2020 11:52 PM CDT TRANSFUSE LEUKO-REDUCED Routine 06/09/2020 RED BLOOD CELLS 6:35 PM CDT POCT-GLUCOSE METER Routine 06/09/2020 6:13 PM CDT POCT-GLUCOSE METER Routine 06/09/2020 11:53 AM CDT TYPE AND SCREEN, Routine 06/09/2020 AUTOMATED 11:47 AM CDT BASIC METABOLIC PANEL (7) Routine 06/09/2020 6:13 AM CDT POCT-GLUCOSE METER Routine 06/09/2020 5:45 AM CDT CBC W/PLT COUNT & AUTO Routine 06/09/2020 DIFFERENTIAL 4:55 AM CDT CBC W/PLT COUNT & AUTO Routine 06/09/2020 DIFFERENTIAL 4:55 AM CDT POCT-GLUCOSE METER Routine 06/09/2020 12:03 AM CDT POCT-GLUCOSE METER Routine 06/08/2020 5:33 PM CDT POCT-GLUCOSE METER Routine 06/08/2020 11:43 AM CDT POCT-GLUCOSE METER Routine 06/08/2020 5:39 AM CDT CBC W/PLT COUNT & AUTO Routine 06/08/2020 DIFFERENTIAL 4:07 AM CDT CBC W/PLT COUNT & AUTO Routine 06/08/2020 DIFFERENTIAL 4:07 AM CDT BASIC METABOLIC PANEL (7) Routine 06/08/2020 4:07 AM CDT POCT-GLUCOSE METER Routine 06/07/2020 11:29 PM CDT POCT-GLUCOSE METER Routine 06/07/2020 6:03 PM CDT XR ESOPH SWALLOW FUNCTION Routine 06/07/2020 W/CINE VIDEO 12:30 PM CDT POCT-GLUCOSE METER Routine 06/07/2020 11:42 AM CDT POCT-GLUCOSE METER Routine 06/07/2020 5:47 AM CDT CBC W/PLT COUNT & AUTO Routine 06/07/2020 DIFFERENTIAL 4:44 AM CDT MAGNESIUM Routine 06/07/2020 4:44 AM CDT PHOSPHORUS Routine 06/07/2020 4:44 AM CDT CBC W/PLT COUNT & AUTO Routine 06/07/2020 DIFFERENTIAL 4:44 AM CDT BASIC METABOLIC PANEL (7) Routine 06/07/2020 4:44 AM CDT POCT-GLUCOSE METER Routine 06/07/2020 12:01 AM CDT POCT-GLUCOSE METER Routine 06/06/2020 5:41 PM CDT POCT-GLUCOSE METER Routine 06/06/2020 12:55 PM CDT POCT-GLUCOSE METER Routine 06/06/2020 5:57 AM CDT CBC W/PLT COUNT & AUTO Routine 06/06/2020 DIFFERENTIAL 4:15 AM CDT CBC W/PLT COUNT & AUTO Routine 06/06/2020 DIFFERENTIAL 4:15 AM CDT BASIC METABOLIC PANEL (7) Routine 06/06/2020 4:15 AM CDT POCT-GLUCOSE METER Routine 06/05/2020 11:30 PM CDT POCT-GLUCOSE METER Routine 06/05/2020 6:24 PM CDT POCT-GLUCOSE METER Routine 06/05/2020 11:42 AM CDT POCT-GLUCOSE METER Routine 06/05/2020 5:29 AM CDT CBC W/PLT COUNT & AUTO Routine 06/05/2020 DIFFERENTIAL 4:34 AM CDT CBC W/PLT COUNT & AUTO Routine 06/05/2020 DIFFERENTIAL 4:34 AM CDT BASIC METABOLIC PANEL (7) Routine 06/05/2020 4:33 AM CDT POCT-GLUCOSE METER Routine 06/04/2020 11:34 PM CDT POCT-GLUCOSE METER Routine 06/04/2020 6:14 PM CDT POCT-GLUCOSE METER Routine 06/04/2020 11:32 AM CDT CBC W/PLT COUNT & AUTO Routine 06/04/2020 DIFFERENTIAL 7:37 AM CDT MAGNESIUM Routine 06/04/2020 7:37 AM CDT PHOSPHORUS Routine 06/04/2020 7:37 AM CDT CBC W/PLT COUNT & AUTO Routine 06/04/2020 DIFFERENTIAL 7:37 AM CDT BASIC METABOLIC PANEL (7) Routine 06/04/2020 7:37 AM CDT POCT-GLUCOSE METER Routine 06/03/2020 11:36 PM CDT POCT-GLUCOSE METER Routine 06/03/2020 6:04 PM CDT SARS-COV2/RT-PCR ([facility] & Routine 06/03/2020 REF LABS) 1:51 PM CDT POCT-GLUCOSE METER Routine 06/03/2020 11:56 AM CDT CBC W/PLT COUNT & AUTO Routine 06/03/2020 DIFFERENTIAL 5:51 AM CDT CBC W/PLT COUNT & AUTO Routine 06/03/2020 DIFFERENTIAL 5:51 AM CDT BASIC METABOLIC PANEL (7) Routine 06/03/2020 5:51 AM CDT POCT-GLUCOSE METER Routine 06/02/2020 11:55 PM CDT POCT-GLUCOSE METER Routine 06/02/2020 6:28 PM CDT POCT-GLUCOSE METER Routine 06/02/2020 11:26 AM CDT POCT-GLUCOSE METER Routine 06/02/2020 5:23 AM CDT CBC W/PLT COUNT & AUTO Routine 06/02/2020 DIFFERENTIAL 4:26 AM CDT CBC W/PLT COUNT & AUTO Routine 06/02/2020 DIFFERENTIAL 4:26 AM CDT BASIC METABOLIC PANEL (7) Routine 06/02/2020 4:26 AM CDT POCT-GLUCOSE METER Routine 06/01/2020 11:29 PM CDT TRANSFUSION SERVICE 06/01/2020 REPORT - SCAN 6:03 PM CDT POCT-GLUCOSE METER Routine 06/01/2020 11:58 AM CDT POCT-GLUCOSE METER Routine 06/01/2020 6:08 AM CDT CBC W/PLT COUNT & AUTO Routine 06/01/2020 DIFFERENTIAL 4:31 AM CDT MAGNESIUM Routine 06/01/2020 4:31 AM CDT PHOSPHORUS Routine 06/01/2020 4:31 AM CDT FIBRINOGEN Routine 06/01/2020 4:31 AM CDT D-DIMER Routine 06/01/2020 4:31 AM CDT FERRITIN Routine 06/01/2020 4:31 AM CDT C-REACTIVE PROTEIN Routine 06/01/2020 4:31 AM CDT PROCALCITONIN Routine 06/01/2020 4:31 AM CDT CBC W/PLT COUNT & AUTO Routine 06/01/2020 DIFFERENTIAL 4:31 AM CDT COMPREHENSIVE METABOLIC Routine 06/01/2020 PANEL 4:31 AM CDT POCT-GLUCOSE METER Routine 05/31/2020 11:31 PM CDT POCT-GLUCOSE METER Routine 05/31/2020 6:29 PM CDT POCT-GLUCOSE METER Routine 05/31/2020 12:31 PM CDT POCT-GLUCOSE METER Routine 05/31/2020 6:42 AM CDT CBC W/PLT COUNT & AUTO Routine 05/31/2020 DIFFERENTIAL 4:23 AM CDT TYPE AND SCREEN, Routine 05/31/2020 AUTOMATED 4:23 AM CDT CBC W/PLT COUNT & AUTO Routine 05/31/2020 DIFFERENTIAL 4:23 AM CDT PT/APTT Routine 05/31/2020 4:23 AM CDT BASIC METABOLIC PANEL (7) Routine 05/31/2020 4:23 AM CDT XR CHEST 1 VIEW Routine 05/31/2020 PORTABLE/BEDSIDE 1:30 AM CDT POCT-GLUCOSE METER Routine 05/30/2020 11:40 PM CDT POCT-GLUCOSE METER Routine 05/30/2020 5:14 PM CDT BLOOD GAS, ARTERIAL Routine 05/30/2020 1:21 PM CDT POCT-GLUCOSE METER Routine 05/30/2020 11:48 AM CDT POCT-GLUCOSE METER Routine 05/30/2020 5:41 AM CDT CBC W/PLT COUNT & AUTO Routine 05/30/2020 DIFFERENTIAL 3:35 AM CDT PHOSPHORUS Routine 05/30/2020 3:35 AM CDT MAGNESIUM Routine 05/30/2020 3:35 AM CDT CBC W/PLT COUNT & AUTO Routine 05/30/2020 DIFFERENTIAL 3:35 AM CDT BASIC METABOLIC PANEL (7) Routine 05/30/2020 3:35 AM CDT XR CHEST 1 VIEW Routine 05/30/2020 PORTABLE/BEDSIDE 1:24 AM CDT POCT-GLUCOSE METER Routine 05/30/2020 1:14 AM CDT POCT-GLUCOSE METER Routine 05/29/2020 5:08 PM CDT POCT-GLUCOSE METER Routine 05/29/2020 12:15 PM CDT 2D ECHO W/ DOPPLER STAT 05/29/2020 (CW/PW/COLOR) 11:28 AM CDT POCT-GLUCOSE METER Routine 05/29/2020 6:43 AM CDT CBC W/PLT COUNT & AUTO Routine 05/29/2020 DIFFERENTIAL 3:23 AM CDT CBC W/PLT COUNT & AUTO Routine 05/29/2020 DIFFERENTIAL 3:23 AM CDT MAGNESIUM Routine 05/29/2020 3:23 AM CDT PHOSPHORUS Routine 05/29/2020 3:23 AM CDT BASIC METABOLIC PANEL (7) Routine 05/29/2020 3:23 AM CDT XR CHEST 1 VIEW Routine 05/29/2020 PORTABLE/BEDSIDE 12:10 AM CDT POCT-GLUCOSE METER Routine 05/28/2020 11:51 PM CDT POCT-GLUCOSE METER Routine 05/28/2020 5:18 PM CDT CBC W/PLT COUNT & AUTO Routine 05/28/2020 DIFFERENTIAL 3:01 AM CDT CBC W/PLT COUNT & AUTO Routine 05/28/2020 DIFFERENTIAL 3:01 AM CDT BASIC METABOLIC PANEL (7) Routine 05/28/2020 2:57 AM CDT XR CHEST 1 VIEW Routine 05/28/2020 PORTABLE/BEDSIDE 1:10 AM CDT POCT-GLUCOSE METER Routine 05/28/2020 12:02 AM CDT POCT-GLUCOSE METER Routine 05/27/2020 5:23 PM CDT POCT-GLUCOSE METER Routine 05/27/2020 6:43 AM CDT CBC W/PLT COUNT & AUTO Routine 05/27/2020 DIFFERENTIAL 5:07 AM CDT CBC W/PLT COUNT & AUTO Routine 05/27/2020 DIFFERENTIAL 5:07 AM CDT BASIC METABOLIC PANEL (7) Routine 05/27/2020 5:07 AM CDT XR CHEST 1 VIEW Routine 05/27/2020 PORTABLE/BEDSIDE 1:30 AM CDT POCT-GLUCOSE METER Routine 05/27/2020 12:11 AM CDT POCT-GLUCOSE METER Routine 05/26/2020 5:46 PM CDT POCT-GLUCOSE METER Routine 05/26/2020 11:58 AM CDT POCT-GLUCOSE METER Routine 05/26/2020 5:22 AM CDT PHOSPHORUS Routine 05/26/2020 5:22 AM CDT MAGNESIUM Routine 05/26/2020 5:22 AM CDT BASIC METABOLIC PANEL (7) Routine 05/26/2020 5:22 AM CDT CBC W/PLT COUNT & AUTO Routine 05/26/2020 DIFFERENTIAL 3:36 AM CDT CBC W/PLT COUNT & AUTO Routine 05/26/2020 DIFFERENTIAL 3:36 AM CDT XR CHEST 1 VIEW Routine 05/26/2020 PORTABLE/BEDSIDE 2:37 AM CDT POCT-GLUCOSE METER Routine 05/26/2020 12:13 AM CDT POCT-GLUCOSE METER Routine 05/25/2020 5:54 PM CDT PHOSPHORUS Routine 05/25/2020 3:50 PM CDT MAGNESIUM Routine 05/25/2020 3:50 PM CDT BASIC METABOLIC PANEL (7) Routine 05/25/2020 3:50 PM CDT POCT-GLUCOSE METER Routine 05/25/2020 11:58 AM CDT POCT-GLUCOSE METER Routine 05/25/2020 6:01 AM CDT CBC W/PLT COUNT & AUTO Routine 05/25/2020 DIFFERENTIAL 4:09 AM CDT MAGNESIUM Add-On 05/25/2020 4:09 AM CDT PHOSPHORUS Add-On 05/25/2020 4:09 AM CDT CBC W/PLT COUNT & AUTO Routine 05/25/2020 DIFFERENTIAL 4:09 AM CDT BASIC METABOLIC PANEL (7) Routine 05/25/2020 4:09 AM CDT XR CHEST 1 VIEW Routine 05/25/2020 PORTABLE/BEDSIDE 1:38 AM CDT POCT-GLUCOSE METER Routine 05/24/2020 11:35 PM CDT POCT-GLUCOSE METER Routine 05/24/2020 6:39 PM CDT POCT-GLUCOSE METER Routine 05/24/2020 12:44 PM CDT POCT-GLUCOSE METER Routine 05/24/2020 6:05 AM CDT CBC W/PLT COUNT & AUTO Routine 05/24/2020 DIFFERENTIAL 4:01 AM CDT CBC W/PLT COUNT & AUTO Routine 05/24/2020 DIFFERENTIAL 4:01 AM CDT PHOSPHORUS Routine 05/24/2020 4:01 AM CDT BASIC METABOLIC PANEL (7) Routine 05/24/2020 4:01 AM CDT MAGNESIUM Routine 05/24/2020 4:01 AM CDT XR CHEST 1 VIEW Routine 05/24/2020 PORTABLE/BEDSIDE 12:28 AM CDT POCT-GLUCOSE METER Routine 05/23/2020 11:45 PM CDT POCT-GLUCOSE METER Routine 05/23/2020 5:05 PM CDT CBC W/PLT COUNT & AUTO Routine 05/23/2020 DIFFERENTIAL 2:56 AM CDT PHOSPHORUS Routine 05/23/2020 2:56 AM CDT BASIC METABOLIC PANEL (7) Routine 05/23/2020 2:56 AM CDT MAGNESIUM Routine 05/23/2020 2:56 AM CDT CBC W/PLT COUNT & AUTO Routine 05/23/2020 DIFFERENTIAL 2:56 AM CDT XR CHEST 1 VIEW Routine 05/23/2020 PORTABLE/BEDSIDE 2:45 AM CDT POCT-GLUCOSE METER Routine 05/22/2020 5:18 PM CDT POCT-GLUCOSE METER Routine 05/22/2020 12:27 PM CDT CBC (HEMOGRAM ONLY) Routine 05/22/2020 10:34 AM CDT APTT Routine 05/22/2020 6:18 AM CDT POCT-GLUCOSE METER Routine 05/22/2020 6:17 AM CDT CBC W/PLT COUNT & AUTO Routine 05/22/2020 DIFFERENTIAL 3:49 AM CDT CBC W/PLT COUNT & AUTO Routine 05/22/2020 DIFFERENTIAL 3:49 AM CDT BASIC METABOLIC PANEL (7) Routine 05/22/2020 3:49 AM CDT XR CHEST 1 VIEW Routine 05/22/2020 PORTABLE/BEDSIDE 3:00 AM CDT APTT Routine 05/21/2020 11:58 PM CDT POCT-GLUCOSE METER Routine 05/21/2020 11:56 PM CDT APTT Routine 05/21/2020 6:22 PM CDT POCT-GLUCOSE METER Routine 05/21/2020 5:46 PM CDT POCT-GLUCOSE METER Routine 05/21/2020 12:05 PM CDT APTT Routine 05/21/2020 10:12 AM CDT BLOOD GAS, ARTERIAL TETO 05/21/2020 10:11 AM CDT POCT-GLUCOSE METER Routine 05/21/2020 6:00 AM CDT CBC W/PLT COUNT & AUTO Routine 05/21/2020 DIFFERENTIAL 3:39 AM CDT APTT Routine 05/21/2020 3:39 AM CDT CBC W/PLT COUNT & AUTO Routine 05/21/2020 DIFFERENTIAL 3:39 AM CDT PHOSPHORUS Routine 05/21/2020 3:39 AM CDT MAGNESIUM Routine 05/21/2020 3:39 AM CDT BASIC METABOLIC PANEL (7) Routine 05/21/2020 3:39 AM CDT XR CHEST 1 VIEW Routine 05/21/2020 PORTABLE/BEDSIDE 12:51 AM CDT POCT-GLUCOSE METER Routine 05/20/2020 11:41 PM CDT APTT Routine 05/20/2020 8:49 PM CDT POCT-GLUCOSE METER Routine 05/20/2020 6:34 PM CDT POCT-GLUCOSE METER Routine 05/20/2020 12:00 PM CDT APTT Routine 05/20/2020 11:42 AM CDT CBC W/PLT COUNT & AUTO Routine 05/20/2020 DIFFERENTIAL 3:30 AM CDT APTT Routine 05/20/2020 3:30 AM CDT CBC W/PLT COUNT & AUTO Routine 05/20/2020 DIFFERENTIAL 3:30 AM CDT BASIC METABOLIC PANEL (7) Routine 05/20/2020 3:30 AM CDT BLOOD GAS, ARTERIAL STAT 05/20/2020 3:29 AM CDT XR CHEST 1 VIEW Routine 05/20/2020 PORTABLE/BEDSIDE 12:26 AM CDT POCT-GLUCOSE METER Routine 05/20/2020 12:21 AM CDT APTT Routine 05/19/2020 8:01 PM CDT MAGNESIUM Routine 05/19/2020 8:01 PM CDT POTASSIUM Routine 05/19/2020 8:01 PM CDT BLOOD GAS, ARTERIAL STAT 05/19/2020 6:56 PM CDT SPUTUM CULTURE + GRAM Routine 05/19/2020 STAIN 5:51 PM CDT URINALYSIS W/ REFLEX STAT 05/19/2020 URINE CULTURE 5:47 PM CDT URINE CULTURE STAT 05/19/2020 5:47 PM CDT ECG 12-LEAD Routine 05/19/2020 4:32 PM CDT ECG 12-LEAD Routine 05/19/2020 4:29 PM CDT POCT-GLUCOSE METER Routine 05/19/2020 3:09 PM CDT TROPONIN I Routine 05/19/2020 2:39 PM CDT 2D ECHO W/ DOPPLER STAT 05/19/2020 (CW/PW/COLOR) 10:48 AM CDT APTT Routine 05/19/2020 10:02 AM CDT CBC (HEMOGRAM ONLY) Routine 05/19/2020 10:02 AM CDT XR CHEST 1 VIEW STAT 05/19/2020 PORTABLE/BEDSIDE 9:53 AM CDT XR ABDOMEN / KUB 1 VIEW STAT 05/19/2020 9:53 AM CDT POCT-GLUCOSE METER Routine 05/19/2020 6:35 AM CDT CBC W/PLT COUNT & AUTO Routine 05/19/2020 DIFFERENTIAL 3:40 AM CDT CBC W/PLT COUNT & AUTO Routine 05/19/2020 DIFFERENTIAL 3:40 AM CDT TROPONIN I Add-On 05/19/2020 3:39 AM CDT BLOOD GAS, ARTERIAL STAT 05/19/2020 3:39 AM CDT MAGNESIUM Routine 05/19/2020 3:39 AM CDT BASIC METABOLIC PANEL (7) Routine 05/19/2020 3:39 AM CDT PHOSPHORUS Routine 05/19/2020 3:39 AM CDT XR CHEST 1 VIEW Routine 05/19/2020 PORTABLE/BEDSIDE 2:30 AM CDT POCT-GLUCOSE METER Routine 05/18/2020 11:14 PM CDT POCT-GLUCOSE METER Routine 05/18/2020 5:50 PM CDT BASIC METABOLIC PANEL (7) STAT 05/18/2020 5:41 PM CDT BLOOD GAS, ARTERIAL STAT 05/18/2020 12:42 PM CDT BASIC METABOLIC PANEL (7) STAT 05/18/2020 12:14 PM CDT POCT-GLUCOSE METER Routine 05/18/2020 12:07 PM CDT POCT-GLUCOSE METER Routine 05/18/2020 5:58 AM CDT BLOOD GAS, ARTERIAL STAT 05/18/2020 4:25 AM CDT CBC W/PLT COUNT & AUTO Routine 05/18/2020 DIFFERENTIAL 4:24 AM CDT MAGNESIUM Routine 05/18/2020 4:24 AM CDT BASIC METABOLIC PANEL (7) STAT 05/18/2020 4:24 AM CDT CBC W/PLT COUNT & AUTO Routine 05/18/2020 DIFFERENTIAL 4:24 AM CDT XR CHEST 1 VIEW Routine 05/18/2020 PORTABLE/BEDSIDE 12:49 AM CDT PHOSPHORUS Add-On 05/18/2020 12:03 AM CDT BLOOD GAS, ARTERIAL Routine 05/18/2020 12:03 AM CDT BASIC METABOLIC PANEL (7) STAT 05/18/2020 12:03 AM CDT POCT-GLUCOSE METER Routine 05/18/2020 12:01 AM CDT BLOOD GAS, ARTERIAL STAT 05/17/2020 6:16 PM CDT XR CHEST 1 VIEW STAT 05/17/2020 PORTABLE/BEDSIDE 5:37 PM CDT BLOOD GAS, ARTERIAL STAT 05/17/2020 5:12 PM CDT BASIC METABOLIC PANEL (7) STAT 05/17/2020 5:12 PM CDT BLOOD GAS, ARTERIAL STAT 05/17/2020 4:28 PM CDT EEG AWAKE/ASLEEP AND STAT 05/17/2020 SLEEP 1:[address] BRAIN WITHOUT IV STAT 05/17/2020 CONTRAST 12:08 PM CDT CBC W/PLT COUNT & AUTO STAT 05/17/2020 DIFFERENTIAL 11:10 AM CDT BLOOD GAS, ARTERIAL STAT 05/17/2020 11:10 AM CDT CBC W/PLT COUNT & AUTO STAT 05/17/2020 DIFFERENTIAL 11:10 AM CDT ECG 12-LEAD Routine 05/17/2020 10:17 AM CDT ECG 12-LEAD STAT 05/17/2020 10:16 AM CDT TROPONIN I Add-On 05/17/2020 9:30 AM CDT HGB/HCT (H&H) - STAT LAB STAT 05/17/2020 9:30 AM CDT GLUCOSE-STAT LAB STAT 05/17/2020 9:30 AM CDT POTASSIUM-STAT LAB STAT 05/17/2020 9:30 AM CDT SODIUM NA-STAT LAB STAT 05/17/2020 9:30 AM CDT PHOSPHORUS STAT 05/17/2020 9:30 AM CDT MAGNESIUM Routine 05/17/2020 9:30 AM CDT CALCIUM, IONIZED STAT 05/17/2020 9:30 AM CDT RRL CRITICAL LABS STAT 05/17/2020 (ABG,NA,K,H&H,GLUCOSE) 9:30 AM CDT BASIC METABOLIC PANEL (7) STAT 05/17/2020 9:30 AM CDT PT/APTT Routine 05/17/2020 9:30 AM CDT XR CHEST 1 VIEW STAT 05/17/2020 PORTABLE/BEDSIDE 9:19 AM CDT POCT-GLUCOSE METER Routine 05/17/2020 8:49 AM CDT POCT-GLUCOSE METER Routine 05/17/2020 5:46 AM CDT CBC W/PLT COUNT & AUTO Routine 05/17/2020 DIFFERENTIAL 3:13 AM CDT CBC W/PLT COUNT & AUTO Routine 05/17/2020 DIFFERENTIAL 3:13 AM CDT APTT Routine 05/17/2020 3:11 AM CDT PHOSPHORUS Routine 05/17/2020 3:11 AM CDT MAGNESIUM Routine 05/17/2020 3:11 AM CDT BASIC METABOLIC PANEL (7) Routine 05/17/2020 3:11 AM CDT XR CHEST 1 VIEW Routine 05/17/2020 PORTABLE/BEDSIDE 2:33 AM CDT POCT-GLUCOSE METER Routine 05/17/2020 12:14 AM CDT PT/APTT Routine 05/16/2020 8:00 PM CDT POCT-GLUCOSE METER Routine 05/16/2020 6:02 PM CDT CBC (HEMOGRAM ONLY) Routine 05/16/2020 1:56 PM CDT APTT Routine 05/16/2020 1:55 PM CDT POCT-GLUCOSE METER Routine 05/16/2020 12:29 PM CDT CBC W/PLT COUNT & AUTO Routine 05/16/2020 DIFFERENTIAL 5:08 AM CDT CBC W/PLT COUNT & AUTO Routine 05/16/2020 DIFFERENTIAL 5:08 AM CDT BASIC METABOLIC PANEL (7) Routine 05/16/2020 5:08 AM CDT XR CHEST 1 VIEW Routine 05/16/2020 PORTABLE/BEDSIDE 3:00 AM CDT POCT-GLUCOSE METER Routine 05/15/2020 9:53 PM CDT POCT-GLUCOSE METER Routine 05/15/2020 6:22 PM CDT TRANSFUSION SERVICE 05/15/2020 REPORT - SCAN 6:01 PM CDT XR CHEST 1 VIEW STAT 05/15/2020 PORTABLE/BEDSIDE 5:13 PM CDT CBC W/PLT COUNT & AUTO STAT 05/15/2020 DIFFERENTIAL 3:59 PM CDT CBC W/PLT COUNT & AUTO STAT 05/15/2020 DIFFERENTIAL 3:59 PM CDT POCT-GLUCOSE METER Routine 05/15/2020 12:17 PM CDT CBC W/PLT COUNT & AUTO Routine 05/15/2020 DIFFERENTIAL 4:28 AM CDT CBC W/PLT COUNT & AUTO Routine 05/15/2020 DIFFERENTIAL 4:28 AM CDT PHOSPHORUS Routine 05/15/2020 4:28 AM CDT MAGNESIUM Routine 05/15/2020 4:28 AM CDT BASIC METABOLIC PANEL (7) Routine 05/15/2020 4:28 AM CDT XR CHEST 1 VIEW Routine 05/15/2020 PORTABLE/BEDSIDE 1:59 AM CDT POCT-GLUCOSE METER Routine 05/15/2020 12:15 AM CDT PREPARE LEUKO-REDUCED RBC STAT 05/14/2020 11:54 PM CDT POCT-GLUCOSE METER Routine 05/14/2020 9:47 PM CDT POCT-GLUCOSE METER Routine 05/14/2020 6:12 PM CDT TRANSFUSION SERVICE 05/14/2020 REPORT - SCAN 6:01 PM CDT POCT-GLUCOSE METER Routine 05/14/2020 12:35 PM CDT CBC W/PLT COUNT & AUTO Routine 05/14/2020 DIFFERENTIAL 7:53 AM CDT CBC W/PLT COUNT & AUTO Routine 05/14/2020 DIFFERENTIAL 7:53 AM CDT BASIC METABOLIC PANEL (7) Routine 05/14/2020 3:58 AM CDT XR CHEST 1 VIEW Routine 05/14/2020 PORTABLE/BEDSIDE 3:15 AM CDT POCT-GLUCOSE METER Routine 05/14/2020 12:18 AM CDT TRANSFUSION SERVICE 05/13/2020 REPORT - SCAN 6:01 PM CDT POCT-GLUCOSE METER Routine 05/13/2020 5:18 PM CDT POCT-GLUCOSE METER Routine 05/13/2020 11:09 AM CDT TRANSFUSE LEUKO-REDUCED STAT 05/13/2020 RED BLOOD CELLS 11:03 AM CDT HEMOGLOBIN AND HEMATOCRIT Routine 05/13/2020 11:03 AM CDT XR CHEST 1 VIEW Routine 05/13/2020 PORTABLE/BEDSIDE 8:25 AM CDT TYPE AND SCREEN, Routine 05/13/2020 AUTOMATED 6:12 AM CDT PREPARE LEUKO-REDUCED RBC STAT 05/13/2020 5:54 AM CDT CBC W/PLT COUNT & AUTO Routine 05/13/2020 DIFFERENTIAL 3:43 AM CDT PHOSPHORUS Routine 05/13/2020 3:43 AM CDT MAGNESIUM Routine 05/13/2020 3:43 AM CDT CBC W/PLT COUNT & AUTO Routine 05/13/2020 DIFFERENTIAL 3:43 AM CDT BASIC METABOLIC PANEL (7) Routine 05/13/2020 3:43 AM CDT POCT-GLUCOSE METER Routine 05/13/2020 3:42 AM CDT POCT-GLUCOSE METER Routine 05/13/2020 12:32 AM CDT PREPARE LEUKO-REDUCED RBC Routine 05/12/2020 11:54 PM CDT POCT-GLUCOSE METER Routine 05/12/2020 8:14 PM CDT TRANSFUSION SERVICE 05/12/2020 REPORT - SCAN 6:02 PM CDT POCT-GLUCOSE METER Routine 05/12/2020 9:45 AM CDT POCT-GLUCOSE METER Routine 05/12/2020 6:50 AM CDT CBC (HEMOGRAM ONLY) Routine 05/12/2020 6:46 AM CDT XR CHEST 1 VIEW Routine 05/12/2020 PORTABLE/BEDSIDE 4:10 AM CDT BLOOD GAS, ARTERIAL Routine 05/12/2020 3:30 AM CDT BASIC METABOLIC PANEL (7) Routine 05/12/2020 3:27 AM CDT POCT-GLUCOSE METER Routine 05/12/2020 12:50 AM CDT PREPARE LEUKO-REDUCED RBC TETO 05/11/2020 11:54 PM CDT BLOOD GAS, ARTERIAL STAT 05/11/2020 9:51 PM CDT EVACUATION,HEMATOMA 05/11/2020 Hematoma of chest wall, 9:10 PM CDT unspecified laterality, sequela XR CHEST 1 VIEW STAT 05/11/2020 PORTABLE/BEDSIDE 7:55 PM CDT PHOSPHORUS STAT 05/11/2020 6:15 PM CDT APTT STAT 05/11/2020 6:15 PM CDT PROTHROMBIN TIME/INR STAT 05/11/2020 6:15 PM CDT MAGNESIUM STAT 05/11/2020 6:15 PM CDT BASIC METABOLIC PANEL (7) STAT 05/11/2020 6:15 PM CDT CBC (HEMOGRAM ONLY) STAT 05/11/2020 6:15 PM CDT TRANSFUSION SERVICE 05/11/2020 REPORT - SCAN 6:02 PM CDT CBC (HEMOGRAM ONLY) STAT 05/11/2020 3:07 PM CDT APTT Routine 05/11/2020 3:07 PM CDT PROTHROMBIN TIME/INR Routine 05/11/2020 3:07 PM CDT IR IVC FILTER PLACEMENT STAT 05/11/2020 2:29 PM CDT IR EMBOLIZATION BLEED STAT 05/11/2020 2:29 PM CDT CTA CHEST Routine 05/11/2020 11:24 AM CDT TRANSFUSE LEUKO-REDUCED Routine 05/11/2020 RED BLOOD CELLS 10:04 AM CDT SARS-COV2/RT-PCR ([facility] & STAT 05/11/2020 REF LABS) 9:23 AM CDT HEMOGLOBIN AND HEMATOCRIT Routine 05/11/2020 8:26 AM CDT TRANSFUSE LEUKO-REDUCED Routine 05/11/2020 RED BLOOD CELLS 6:[address] CHEST WITH IV CONTRAST STAT 05/11/2020 6:21 AM CDT FIBRINOGEN STAT 05/11/2020 4:53 AM CDT PT/APTT STAT 05/11/2020 4:53 AM CDT THROMBOELASTOGRAPH (TEG) STAT 05/11/2020 4:50 AM CDT CBC W/PLT COUNT & AUTO Routine 05/11/2020 DIFFERENTIAL 3:49 AM CDT PHOSPHORUS Routine 05/11/2020 3:49 AM CDT MAGNESIUM Routine 05/11/2020 3:49 AM CDT CBC W/PLT COUNT & AUTO Routine 05/11/2020 DIFFERENTIAL 3:49 AM CDT BASIC METABOLIC PANEL (7) Routine 05/11/2020 3:49 AM CDT VORICONAZOLE LEVEL Routine 05/11/2020 3:49 AM CDT XR CHEST 1 VIEW Routine 05/11/2020 PORTABLE/BEDSIDE 1:33 AM CDT POCT-GLUCOSE METER Routine 05/11/2020 12:31 AM CDT PREPARE LEUKO-REDUCED RBC Routine 05/10/2020 11:54 PM CDT POCT-GLUCOSE METER Routine 05/10/2020 6:16 PM CDT TRANSFUSION SERVICE 05/10/2020 REPORT - SCAN 6:02 PM CDT (MANUAL DIFFERENTIAL) Routine 05/10/2020 4:33 AM CDT CBC WITH PLATELET COUNT + Routine 05/10/2020 MANUAL DIFF 4:33 AM CDT CBC W/PLT+MANUAL DIFF Routine 05/10/2020 4:33 AM CDT PERIPHERAL BLOOD SMEAR - Routine 05/10/2020 PATHOLOGIST REVIEW 4:33 AM CDT RETICULOCYTE COUNT Routine 05/10/2020 4:33 AM CDT VITAMIN B12 AND FOLATE Routine 05/10/2020 4:33 AM CDT FERRITIN Routine 05/10/2020 4:33 AM CDT IRON, SERUM Routine 05/10/2020 4:33 AM CDT BASIC METABOLIC PANEL (7) Routine 05/10/2020 4:33 AM CDT TRANSFUSE LEUKO-REDUCED Routine 05/10/2020 RED BLOOD CELLS 3:44 AM CDT XR CHEST 1 VIEW Routine 05/10/2020 PORTABLE/BEDSIDE 2:18 AM CDT CBC W/PLT COUNT & AUTO STAT 05/09/2020 DIFFERENTIAL 8:15 PM CDT CBC W/PLT COUNT & AUTO STAT 05/09/2020 DIFFERENTIAL 8:15 PM CDT POCT-GLUCOSE METER Routine 05/09/2020 6:29 PM CDT TRANSFUSE LEUKO-REDUCED STAT 05/09/2020 RED BLOOD CELLS 11:17 AM CDT IRON, TIBC, % SAT. Routine 05/09/2020 (WITHOUT FERRITIN) 10:15 AM CDT IRON, SERUM Routine 05/09/2020 10:15 AM CDT TRANSFUSE LEUKO-REDUCED STAT 05/09/2020 RED BLOOD CELLS 9:59 AM CDT CBC W/PLT COUNT & AUTO STAT 05/09/2020 DIFFERENTIAL 4:58 AM CDT TYPE AND SCREEN, STAT 05/09/2020 AUTOMATED 4:58 AM CDT CBC W/PLT COUNT & AUTO STAT 05/09/2020 DIFFERENTIAL 4:58 AM CDT CBC W/PLT COUNT & AUTO Routine 05/09/2020 DIFFERENTIAL 4:20 AM CDT PHOSPHORUS Routine 05/09/2020 4:20 AM CDT MAGNESIUM STAT 05/09/2020 4:20 AM CDT BASIC METABOLIC PANEL (7) Routine 05/09/2020 4:20 AM CDT CBC W/PLT COUNT & AUTO Routine 05/09/2020 DIFFERENTIAL 4:20 AM CDT XR CHEST 1 VIEW Routine 05/09/2020 PORTABLE/BEDSIDE 1:21 AM CDT POCT-GLUCOSE METER Routine 05/08/2020 9:47 PM CDT POCT-GLUCOSE METER Routine 05/08/2020 5:53 PM CDT POCT-GLUCOSE METER Routine 05/08/2020 12:13 PM CDT CBC W/PLT COUNT & AUTO Routine 05/08/2020 DIFFERENTIAL 3:18 AM CDT PHOSPHORUS Routine 05/08/2020 3:18 AM CDT MAGNESIUM STAT 05/08/2020 3:18 AM CDT BASIC METABOLIC PANEL (7) Routine 05/08/2020 3:18 AM CDT CBC W/PLT COUNT & AUTO Routine 05/08/2020 DIFFERENTIAL 3:18 AM CDT XR CHEST 1 VIEW Routine 05/08/2020 PORTABLE/BEDSIDE 12:44 AM CDT POCT-GLUCOSE METER Routine 05/07/2020 6:34 PM CDT POCT-GLUCOSE METER Routine 05/07/2020 1:30 PM CDT XR CHEST 1 VIEW STAT 05/07/2020 PORTABLE/BEDSIDE 11:12 AM CDT CBC W/PLT COUNT & AUTO Routine 05/07/2020 DIFFERENTIAL 3:50 AM CDT PHOSPHORUS Routine 05/07/2020 3:50 AM CDT MAGNESIUM STAT 05/07/2020 3:50 AM CDT BASIC METABOLIC PANEL (7) Routine 05/07/2020 3:50 AM CDT CBC W/PLT COUNT & AUTO Routine 05/07/2020 DIFFERENTIAL 3:50 AM CDT XR CHEST 1 VIEW Routine 05/07/2020 PORTABLE/BEDSIDE 1:38 AM CDT ASPERGILLUS GALACTOMANNAN Routine 05/07/2020 ANTIGEN 12:15 AM CDT POCT-GLUCOSE METER Routine 05/07/2020 12:01 AM CDT POCT-GLUCOSE METER Routine 05/06/2020 8:08 PM CDT POCT-GLUCOSE METER Routine 05/06/2020 6:45 PM CDT POCT-GLUCOSE METER Routine 05/06/2020 2:16 PM CDT CBC W/PLT COUNT & AUTO Routine 05/06/2020 DIFFERENTIAL 3:06 AM CDT PHOSPHORUS Routine 05/06/2020 3:06 AM CDT MAGNESIUM STAT 05/06/2020 3:06 AM CDT BASIC METABOLIC PANEL (7) Routine 05/06/2020 3:06 AM CDT CBC W/PLT COUNT & AUTO Routine 05/06/2020 DIFFERENTIAL 3:06 AM CDT XR CHEST 1 VIEW Routine 05/06/2020 PORTABLE/BEDSIDE 1:[address] CHEST WITHOUT IV STAT 05/06/2020 CONTRAST 12:45 AM CDT POCT-GLUCOSE METER Routine 05/05/2020 11:06 PM CDT POCT-GLUCOSE METER Routine 05/05/2020 6:22 PM CDT POCT-GLUCOSE METER Routine 05/05/2020 2:34 PM CDT POCT-GLUCOSE METER Routine 05/05/2020 5:30 AM CDT CBC W/PLT COUNT & AUTO Routine 05/05/2020 DIFFERENTIAL 3:11 AM CDT HEPATIC FUNCTION PANEL Routine 05/05/2020 3:11 AM CDT PHOSPHORUS Routine 05/05/2020 3:11 AM CDT MAGNESIUM STAT 05/05/2020 3:11 AM CDT BASIC METABOLIC PANEL (7) Routine 05/05/2020 3:11 AM CDT CBC W/PLT COUNT & AUTO Routine 05/05/2020 DIFFERENTIAL 3:11 AM CDT POCT-GLUCOSE METER Routine 05/05/2020 12:57 AM CDT XR CHEST 1 VIEW Routine 05/05/2020 PORTABLE/BEDSIDE 12:53 AM CDT POCT-GLUCOSE METER Routine 05/04/2020 9:17 PM CDT POCT-GLUCOSE METER Routine 05/04/2020 6:37 PM CDT TRANSFUSION SERVICE 05/04/2020 REPORT - SCAN 5:51 PM CDT POCT-GLUCOSE METER Routine 05/04/2020 12:27 PM CDT VANCOMYCIN LEVEL, TROUGH Timed 05/04/2020 12:21 PM CDT POCT-GLUCOSE METER Routine 05/04/2020 6:17 AM CDT CBC W/PLT COUNT & AUTO Routine 05/04/2020 DIFFERENTIAL 3:51 AM CDT PHOSPHORUS Routine 05/04/2020 3:51 AM CDT MAGNESIUM STAT 05/04/2020 3:51 AM CDT BASIC METABOLIC PANEL (7) Routine 05/04/2020 3:51 AM CDT CBC W/PLT COUNT & AUTO Routine 05/04/2020 DIFFERENTIAL 3:51 AM CDT XR CHEST 1 VIEW Routine 05/04/2020 PORTABLE/BEDSIDE 1:24 AM CDT POCT-GLUCOSE METER Routine 05/04/2020 12:12 AM CDT PREPARE LEUKO-REDUCED RBC TETO 05/03/2020 11:54 PM CDT ASPERGILLUS GALACTOMANNAN Routine 05/03/2020 ANTIGEN 8:43 PM CDT MISCELLANEOUS LAB ORDER Routine 05/03/2020 8:43 PM CDT BLOOD CULTURE, ROUTINE Routine 05/03/2020 ISOLATOR 8:43 PM CDT FUNGUS CULTURE, BLOOD Routine 05/03/2020 (ISOLATOR) 8:43 PM CDT BLOOD CULTURE, ROUTINE Routine 05/03/2020 ISOLATOR 8:43 PM CDT POCT-GLUCOSE METER Routine 05/03/2020 6:25 PM CDT TRANSFUSION SERVICE 05/03/2020 REPORT - SCAN 6:11 PM CDT POCT-GLUCOSE METER Routine 05/03/2020 12:53 PM CDT CBC W/PLT COUNT & AUTO Routine 05/03/2020 DIFFERENTIAL 3:40 AM CDT PHOSPHORUS Routine 05/03/2020 3:40 AM CDT MAGNESIUM STAT 05/03/2020 3:40 AM CDT BASIC METABOLIC PANEL (7) Routine 05/03/2020 3:40 AM CDT CBC W/PLT COUNT & AUTO Routine 05/03/2020 DIFFERENTIAL 3:40 AM CDT XR CHEST 1 VIEW Routine 05/03/2020 PORTABLE/BEDSIDE 2:08 AM CDT POCT-GLUCOSE METER Routine 05/02/2020 10:43 PM CDT VANCOMYCIN LEVEL, TROUGH Timed 05/02/2020 8:31 PM CDT POCT-GLUCOSE METER Routine 05/02/2020 6:02 PM CDT POCT-GLUCOSE METER Routine 05/02/2020 1:39 PM CDT TRANSFUSE LEUKO-REDUCED Routine 05/02/2020 RED BLOOD CELLS 11:33 AM CDT APTT Routine 05/02/2020 8:08 AM CDT BLOOD GAS, ARTERIAL STAT 05/02/2020 7:57 AM CDT ABORH, MANUAL TETO 05/02/2020 6:02 AM CDT TYPE AND SCREEN, TETO 05/02/2020 AUTOMATED 6:02 AM CDT CBC W/PLT COUNT & AUTO Routine 05/02/2020 DIFFERENTIAL 4:49 AM CDT BLOOD GAS, ARTERIAL STAT 05/02/2020 4:49 AM CDT PHOSPHORUS Routine 05/02/2020 4:49 AM CDT MAGNESIUM STAT 05/02/2020 4:49 AM CDT BASIC METABOLIC PANEL (7) Routine 05/02/2020 4:49 AM CDT CBC W/PLT COUNT & AUTO Routine 05/02/2020 DIFFERENTIAL 4:49 AM CDT XR CHEST 1 VIEW Routine 05/02/2020 PORTABLE/BEDSIDE 1:07 AM CDT POCT-GLUCOSE METER Routine 05/02/2020 12:24 AM CDT APTT Routine 05/02/2020 12:19 AM CDT APTT Routine 05/01/2020 5:57 PM CDT TRANSFUSION SERVICE 05/01/2020 REPORT - SCAN 5:51 PM CDT POCT-GLUCOSE METER Routine 05/01/2020 5:22 PM CDT POCT-GLUCOSE METER Routine 05/01/2020 3:20 PM CDT APTT Routine 05/01/2020 12:18 PM CDT POCT-GLUCOSE METER Routine 05/01/2020 6:10 AM CDT APTT Routine 05/01/2020 5:50 AM CDT CBC W/PLT COUNT & AUTO Routine 05/01/2020 DIFFERENTIAL 3:09 AM CDT BLOOD GAS, ARTERIAL STAT 05/01/2020 3:09 AM CDT PHOSPHORUS Routine 05/01/2020 3:09 AM CDT MAGNESIUM STAT 05/01/2020 3:09 AM CDT BASIC METABOLIC PANEL (7) Routine 05/01/2020 3:09 AM CDT CBC W/PLT COUNT & AUTO Routine 05/01/2020 DIFFERENTIAL 3:09 AM CDT XR CHEST 1 VIEW Routine 05/01/2020 PORTABLE/BEDSIDE 3:06 AM CDT POCT-GLUCOSE METER Routine 05/01/2020 12:01 AM CDT APTT Routine 04/30/2020 10:43 PM CDT TRANSFUSION SERVICE 04/30/2020 REPORT - SCAN 5:50 PM CDT POCT-GLUCOSE METER Routine 04/30/2020 5:40 PM CDT APTT Routine 04/30/2020 4:55 PM CDT POTASSIUM Routine 04/30/2020 4:55 PM CDT SPUTUM CULTURE + GRAM Routine 04/30/2020 STAIN 3:47 PM CDT POCT-GLUCOSE METER Routine 04/30/2020 11:52 AM CDT APTT Routine 04/30/2020 10:24 AM CDT URINALYSIS W/ REFLEX STAT 04/30/2020 URINE CULTURE 8:00 AM CDT BLOOD CULTURE Routine 04/30/2020 8:00 AM CDT BLOOD CULTURE Routine 04/30/2020 8:00 AM CDT POCT-GLUCOSE METER Routine 04/30/2020 6:00 AM CDT BLOOD GAS, ARTERIAL STAT 04/30/2020 3:12 AM CDT APTT Routine 04/30/2020 3:10 AM CDT CBC W/PLT COUNT & AUTO Routine 04/30/2020 DIFFERENTIAL 3:05 AM CDT PHOSPHORUS Routine 04/30/2020 3:05 AM CDT MAGNESIUM STAT 04/30/2020 3:05 AM CDT BASIC METABOLIC PANEL (7) Routine 04/30/2020 3:05 AM CDT CBC W/PLT COUNT & AUTO Routine 04/30/2020 DIFFERENTIAL 3:05 AM CDT XR CHEST 1 VIEW Routine 04/30/2020 PORTABLE/BEDSIDE 2:59 AM CDT PREPARE LEUKO-REDUCED RBC Routine 04/30/2020 1:03 AM CDT POCT-GLUCOSE METER Routine 04/30/2020 12:14 AM CDT PREPARE LEUKO-REDUCED RBC Routine 04/29/2020 11:54 PM CDT APTT Routine 04/29/2020 7:23 PM CDT POTASSIUM Routine 04/29/2020 7:19 PM CDT XR CHEST 1 VIEW STAT 04/29/2020 PORTABLE/BEDSIDE 6:10 PM CDT TRANSFUSION SERVICE 04/29/2020 REPORT - SCAN 5:51 PM CDT POCT-GLUCOSE METER Routine 04/29/2020 5:28 PM CDT POTASSIUM Routine 04/29/2020 3:13 PM CDT POCT-GLUCOSE METER Routine 04/29/2020 3:12 PM CDT POTASSIUM TETO 04/29/2020 1:01 PM CDT POCT-GLUCOSE METER Routine 04/29/2020 12:23 PM CDT XR CHEST 1 VIEW STAT 04/29/2020 PORTABLE/BEDSIDE 11:15 AM CDT APTT Routine 04/29/2020 9:29 AM CDT GLUCOSE Routine 04/29/2020 8:06 AM CDT POTASSIUM Routine 04/29/2020 8:06 AM CDT POCT-GLUCOSE METER Routine 04/29/2020 6:46 AM CDT APTT Routine 04/29/2020 5:25 AM CDT XR CHEST 1 VIEW Routine 04/29/2020 PORTABLE/BEDSIDE 4:10 AM CDT BLOOD GAS, ARTERIAL STAT 04/29/2020 3:23 AM CDT CBC W/PLT COUNT & AUTO Routine 04/29/2020 DIFFERENTIAL 3:22 AM CDT PHOSPHORUS Routine 04/29/2020 3:22 AM CDT MAGNESIUM STAT 04/29/2020 3:22 AM CDT BASIC METABOLIC PANEL (7) Routine 04/29/2020 3:22 AM CDT CBC W/PLT COUNT & AUTO Routine 04/29/2020 DIFFERENTIAL 3:22 AM CDT POCT-GLUCOSE METER Routine 04/29/2020 1:31 AM CDT APTT Routine 04/28/2020 10:01 PM CDT POCT-GLUCOSE METER Routine 04/28/2020 8:28 PM CDT POCT-GLUCOSE METER Routine 04/28/2020 6:54 PM CDT TRANSFUSE LEUKO-REDUCED Routine 04/28/2020 RED BLOOD CELLS 6:37 PM CDT TRANSFUSION SERVICE 04/28/2020 REPORT - SCAN 5:52 PM CDT HEMOGLOBIN AND HEMATOCRIT Routine 04/28/2020 12:53 PM CDT APTT Routine 04/28/2020 12:53 PM CDT XR CHEST 1 VIEW TETO 04/28/2020 PORTABLE/BEDSIDE 9:17 AM CDT POCT-GLUCOSE METER Routine 04/28/2020 9:00 AM CDT BLOOD GAS, ARTERIAL STAT 04/28/2020 8:48 AM CDT POCT-GLUCOSE METER Routine 04/28/2020 6:12 AM CDT HEMOGLOBIN AND HEMATOCRIT STAT 04/28/2020 6:07 AM CDT POTASSIUM STAT 04/28/2020 6:07 AM CDT XR CHEST 1 VIEW Routine 04/28/2020 PORTABLE/BEDSIDE 4:06 AM CDT CBC W/PLT COUNT & AUTO Routine 04/28/2020 DIFFERENTIAL 3:16 AM CDT BLOOD GAS, ARTERIAL STAT 04/28/2020 3:16 AM CDT CBC W/PLT COUNT & AUTO Routine 04/28/2020 DIFFERENTIAL 3:16 AM CDT APTT Routine 04/28/2020 3:15 AM CDT PHOSPHORUS Routine 04/28/2020 3:15 AM CDT MAGNESIUM STAT 04/28/2020 3:15 AM CDT BASIC METABOLIC PANEL (7) Routine 04/28/2020 3:15 AM CDT POCT-GLUCOSE METER Routine 04/28/2020 12:12 AM CDT PREPARE LEUKO-REDUCED RBC STAT 04/27/2020 11:54 PM CDT PREPARE LEUKO-REDUCED RBC STAT 04/27/2020 11:54 PM CDT APTT Routine 04/27/2020 9:12 PM CDT TRANSFUSION SERVICE 04/27/2020 REPORT - SCAN 5:52 PM CDT POCT-GLUCOSE METER Routine 04/27/2020 5:19 PM CDT CBC W/PLT COUNT & AUTO STAT 04/27/2020 DIFFERENTIAL 4:40 PM CDT CBC W/PLT COUNT & AUTO STAT 04/27/2020 DIFFERENTIAL 4:40 PM CDT APTT Routine 04/27/2020 2:11 PM CDT POCT-GLUCOSE METER Routine 04/27/2020 11:33 AM CDT BLOOD GAS, ARTERIAL STAT 04/27/2020 8:28 AM CDT POCT-GLUCOSE METER Routine 04/27/2020 8:22 AM CDT APTT Routine 04/27/2020 8:15 AM CDT CBC W/PLT COUNT & AUTO Routine 04/27/2020 DIFFERENTIAL 4:21 AM CDT PHOSPHORUS Routine 04/27/2020 4:21 AM CDT MAGNESIUM STAT 04/27/2020 4:21 AM CDT BASIC METABOLIC PANEL (7) Routine 04/27/2020 4:21 AM CDT CBC W/PLT COUNT & AUTO Routine 04/27/2020 DIFFERENTIAL 4:21 AM CDT BLOOD GAS, ARTERIAL STAT 04/27/2020 4:20 AM CDT APTT Routine 04/27/2020 1:54 AM CDT XR CHEST 1 VIEW Routine 04/27/2020 PORTABLE/BEDSIDE 1:37 AM CDT POCT-GLUCOSE METER Routine 04/27/2020 12:33 AM CDT POCT-GLUCOSE METER Routine 04/26/2020 9:14 PM CDT APTT Routine 04/26/2020 6:36 PM CDT CBC (HEMOGRAM ONLY) Add-On 04/26/2020 5:33 PM CDT HEMOGLOBIN AND HEMATOCRIT STAT 04/26/2020 5:33 PM CDT POCT-GLUCOSE METER Routine 04/26/2020 5:25 PM CDT TRANSFUSE LEUKO-REDUCED Routine 04/26/2020 RED BLOOD CELLS 3:05 PM CDT CBC (HEMOGRAM ONLY) Routine 04/26/2020 2:43 PM CDT BLOOD GAS, ARTERIAL STAT 04/26/2020 12:58 PM CDT POCT-GLUCOSE METER Routine 04/26/2020 12:54 PM CDT TRANSFUSE LEUKO-REDUCED STAT 04/26/2020 RED BLOOD CELLS 11:05 AM CDT BLOOD GAS, ARTERIAL STAT 04/26/2020 9:08 AM CDT POCT-GLUCOSE METER Routine 04/26/2020 5:04 AM CDT TYPE AND SCREEN, STAT 04/26/2020 AUTOMATED 4:53 AM CDT BLOOD GAS, ARTERIAL STAT 04/26/2020 4:53 AM CDT CBC W/PLT COUNT & AUTO STAT 04/26/2020 DIFFERENTIAL 4:52 AM CDT BASIC METABOLIC PANEL (7) STAT 04/26/2020 4:52 AM CDT CBC W/PLT COUNT & AUTO STAT 04/26/2020 DIFFERENTIAL 4:52 AM CDT CBC W/PLT COUNT & AUTO Routine 04/26/2020 DIFFERENTIAL 3:50 AM CDT PHOSPHORUS Routine 04/26/2020 3:50 AM CDT MAGNESIUM STAT 04/26/2020 3:50 AM CDT BASIC METABOLIC PANEL (7) Routine 04/26/2020 3:50 AM CDT CBC W/PLT COUNT & AUTO Routine 04/26/2020 DIFFERENTIAL 3:50 AM CDT XR CHEST 1 VIEW Routine 04/26/2020 PORTABLE/BEDSIDE 2:40 AM CDT POCT-GLUCOSE METER Routine 04/26/2020 12:13 AM CDT POCT-GLUCOSE METER Routine 04/25/2020 9:30 PM CDT POCT-GLUCOSE METER Routine 04/25/2020 6:38 PM CDT IR G-TUBE TO G-J TUBE Routine 04/25/2020 CONVERSION 1:49 PM CDT POCT-GLUCOSE METER Routine 04/25/2020 11:38 AM CDT SARS-COV2/RT-PCR ([facility] & Routine 04/25/2020 REF LABS) 8:11 AM CDT BLOOD GAS, ARTERIAL STAT 04/25/2020 8:10 AM CDT BLOOD GAS, ARTERIAL STAT 04/25/2020 4:23 AM CDT CBC W/PLT COUNT & AUTO Routine 04/25/2020 DIFFERENTIAL 4:22 AM CDT PHOSPHORUS Routine 04/25/2020 4:22 AM CDT MAGNESIUM STAT 04/25/2020 4:22 AM CDT BASIC METABOLIC PANEL (7) Routine 04/25/2020 4:22 AM CDT CBC W/PLT COUNT & AUTO Routine 04/25/2020 DIFFERENTIAL 4:22 AM CDT XR CHEST 1 VIEW Routine 04/25/2020 PORTABLE/BEDSIDE 1:25 AM CDT BLOOD GAS, ARTERIAL STAT 04/24/2020 9:41 PM CDT CALCIUM, IONIZED STAT 04/24/2020 9:40 PM CDT PT/APTT STAT 04/24/2020 9:40 PM CDT MAGNESIUM STAT 04/24/2020 9:40 PM CDT PHOSPHORUS STAT 04/24/2020 9:40 PM CDT BASIC METABOLIC PANEL (7) STAT 04/24/2020 9:40 PM CDT CBC (HEMOGRAM ONLY) STAT 04/24/2020 9:40 PM CDT XR CHEST 1 VIEW STAT 04/24/2020 PORTABLE/BEDSIDE 8:28 PM CDT VIRUS CULTURE STAT 04/24/2020 8:09 PM CDT SURGICALLY OBTAINED STAT 04/24/2020 CULTURE + GRAM STAIN 5:57 PM CDT FUNGUS CULTURE + SMEAR STAT 04/24/2020 5:57 PM CDT ANAEROBIC CULTURE STAT 04/24/2020 5:57 PM CDT AFB CULTURE + SMEAR STAT 04/24/2020 (NON-SPUTUM) 5:57 PM CDT TRANSFUSION SERVICE 04/24/2020 REPORT - SCAN 5:51 PM CDT TISSUE EXAM AP Routine 04/24/2020 5:44 PM CDT HGB/HCT (H&H) - STAT LAB STAT 04/24/2020 5:26 PM CDT GLUCOSE-STAT LAB STAT 04/24/2020 5:26 PM CDT POTASSIUM-STAT LAB STAT 04/24/2020 5:26 PM CDT SODIUM NA-STAT LAB STAT 04/24/2020 5:26 PM CDT BLOOD GAS, ARTERIAL STAT 04/24/2020 5:26 PM CDT CALCIUM, IONIZED STAT 04/24/2020 5:26 PM CDT RRL CRITICAL LABS STAT 04/24/2020 (ABG,NA,K,H&H,GLUCOSE) 5:26 PM CDT HGB/HCT (H&H) - STAT LAB STAT 04/24/2020 4:50 PM CDT GLUCOSE-STAT LAB STAT 04/24/2020 4:50 PM CDT POTASSIUM-STAT LAB STAT 04/24/2020 4:50 PM CDT SODIUM NA-STAT LAB STAT 04/24/2020 4:50 PM CDT BLOOD GAS, ARTERIAL STAT 04/24/2020 4:50 PM CDT CALCIUM, IONIZED STAT 04/24/2020 4:50 PM CDT RRL CRITICAL LABS STAT 04/24/2020 (ABG,NA,K,H&H,GLUCOSE) 4:50 PM CDT THORACOTOMY 04/24/2020 Loculated right lat eral 3:30 PM CDT pneumothorax Special Needs REQ: 1420, COVID POSITIVECA LL BACK [id number] THORACOSCOPY 04/24/2020 Loculated right lat eral (VATS),DECORTICATION 3:30 PM CDT pneumothorax Special Needs REQ: 1420, COVID POSITIVECA LL BACK [id number] POCT-GLUCOSE METER Routine 04/24/2020 6:15 AM CDT CBC W/PLT COUNT & AUTO Routine 04/24/2020 DIFFERENTIAL 4:05 AM CDT TRIGLYCERIDES Routine 04/24/2020 4:05 AM CDT PHOSPHORUS Routine 04/24/2020 4:05 AM CDT MAGNESIUM STAT 04/24/2020 4:05 AM CDT BASIC METABOLIC PANEL (7) Routine 04/24/2020 4:05 AM CDT CBC W/PLT COUNT & AUTO Routine 04/24/2020 DIFFERENTIAL 4:05 AM CDT XR CHEST 1 VIEW Routine 04/24/2020 PORTABLE/BEDSIDE 2:53 AM CDT POCT-GLUCOSE METER Routine 04/24/2020 12:02 AM CDT POCT-GLUCOSE METER Routine 04/23/2020 6:40 PM CDT POCT-GLUCOSE METER Routine 04/23/2020 12:12 PM CDT ABORH, MANUAL STAT 04/23/2020 11:45 AM CDT TYPE AND SCREEN, TETO 04/23/2020 AUTOMATED 10:59 AM CDT POCT-GLUCOSE METER Routine 04/23/2020 6:50 AM CDT BLOOD GAS, ARTERIAL STAT 04/23/2020 3:55 AM CDT CBC W/PLT COUNT & AUTO Routine 04/23/2020 DIFFERENTIAL 3:54 AM CDT CBC W/PLT COUNT & AUTO Routine 04/23/2020 DIFFERENTIAL 3:54 AM CDT PHOSPHORUS Routine 04/23/2020 3:53 AM CDT MAGNESIUM STAT 04/23/2020 3:53 AM CDT BASIC METABOLIC PANEL (7) Routine 04/23/2020 3:53 AM CDT XR ABDOMEN / KUB 1 VIEW Routine 04/23/2020 1:42 AM CDT XR CHEST 1 VIEW Routine 04/23/2020 PORTABLE/BEDSIDE 1:34 AM CDT POCT-GLUCOSE METER Routine 04/23/2020 12:59 AM CDT XR ABDOMEN / KUB 1 VIEW Routine 04/22/2020 1:26 PM CDT XR ABDOMEN / KUB 1 VIEW Routine 04/22/2020 1:26 PM CDT POCT-GLUCOSE METER Routine 04/22/2020 1:03 PM CDT XR ABDOMEN / KUB 1 VIEW STAT 04/22/2020 12:32 PM CDT XR ABDOMEN / KUB 1 VIEW STAT 04/22/2020 5:01 AM CDT CBC W/PLT COUNT & AUTO Routine 04/22/2020 DIFFERENTIAL 4:31 AM CDT BLOOD GAS, ARTERIAL STAT 04/22/2020 4:31 AM CDT PHOSPHORUS Routine 04/22/2020 4:31 AM CDT MAGNESIUM STAT 04/22/2020 4:31 AM CDT BASIC METABOLIC PANEL (7) Routine 04/22/2020 4:31 AM CDT CBC W/PLT COUNT & AUTO Routine 04/22/2020 DIFFERENTIAL 4:31 AM CDT XR CHEST 1 VIEW Routine 04/22/2020 PORTABLE/BEDSIDE 1:53 AM CDT POCT-GLUCOSE METER Routine 04/21/2020 11:58 PM CDT BLOOD GAS, ARTERIAL STAT 04/21/2020 1:13 PM CDT POCT-GLUCOSE METER Routine 04/21/2020 1:10 PM CDT BLOOD GAS, ARTERIAL STAT 04/21/2020 12:02 PM CDT LACTIC ACID, ARTERIAL STAT 04/21/2020 12:00 PM CDT PT/APTT STAT 04/21/2020 12:00 PM CDT PHOSPHORUS STAT 04/21/2020 12:00 PM CDT MAGNESIUM STAT 04/21/2020 12:00 PM CDT BASIC METABOLIC PANEL (7) STAT 04/21/2020 12:00 PM CDT CBC W/PLT COUNT & AUTO STAT 04/21/2020 DIFFERENTIAL 11:59 AM CDT TROPONIN I STAT 04/21/2020 11:59 AM CDT CBC W/PLT COUNT & AUTO STAT 04/21/2020 DIFFERENTIAL 11:59 AM CDT XR CHEST 1 VIEW STAT 04/21/2020 PORTABLE/BEDSIDE 11:53 AM CDT POCT-GLUCOSE Routine 04/21/2020 11:34 AM CDT POCT-CALCIUM IONIZED Routine 04/21/2020 11:34 AM CDT POCT-HEMATOCRIT Routine 04/21/2020 11:34 AM CDT POCT-HEMOGLOBIN Routine 04/21/2020 11:34 AM CDT POCT-POTASSIUM Routine 04/21/2020 11:34 AM CDT POCT-SODIUM Routine 04/21/2020 11:34 AM CDT POCT-BLOOD GASES, Routine 04/21/2020 ARTERIAL 11:34 AM CDT POCT-GLUCOSE METER Routine 04/21/2020 6:14 AM CDT SARS-COV2/RT-PCR ([facility] & [facility] 04/21/2020 REF LABS) 5:08 AM CDT CBC W/PLT COUNT & AUTO Routine 04/21/2020 DIFFERENTIAL 4:25 AM CDT PHOSPHORUS Routine 04/21/2020 4:25 AM CDT MAGNESIUM STAT 04/21/2020 4:25 AM CDT BASIC METABOLIC PANEL (7) Routine 04/21/2020 4:25 AM CDT CBC W/PLT COUNT & AUTO Routine 04/21/2020 DIFFERENTIAL 4:25 AM CDT BLOOD GAS, ARTERIAL STAT 04/21/2020 4:24 AM CDT POCT-GLUCOSE METER Routine 04/21/2020 12:30 AM CDT XR CHEST 1 VIEW Routine 04/21/2020 PORTABLE/BEDSIDE 12:26 AM CDT POCT-GLUCOSE METER Routine 04/20/2020 5:54 PM CDT POCT-GLUCOSE METER Routine 04/20/2020 12:[address] CHEST WITHOUT IV Routine 04/20/2020 CONTRAST 11:43 AM CDT BLOOD GAS, ARTERIAL STAT 04/20/2020 7:51 AM CDT POCT-GLUCOSE METER Routine 04/20/2020 6:27 AM CDT POCT-GLUCOSE METER Routine 04/20/2020 5:43 AM CDT BLOOD GAS, ARTERIAL STAT 04/20/2020 3:11 AM CDT CBC W/PLT COUNT & AUTO Routine 04/20/2020 DIFFERENTIAL 3:07 AM CDT PHOSPHORUS Routine 04/20/2020 3:07 AM CDT MAGNESIUM STAT 04/20/2020 3:07 AM CDT BASIC METABOLIC PANEL (7) Routine 04/20/2020 3:07 AM CDT CBC W/PLT COUNT & AUTO Routine 04/20/2020 DIFFERENTIAL 3:07 AM CDT XR CHEST 1 VIEW Routine 04/20/2020 PORTABLE/BEDSIDE 1:51 AM CDT POCT-GLUCOSE METER Routine 04/19/2020 11:46 PM CDT POCT-GLUCOSE METER Routine 04/19/2020 5:43 PM CDT POCT-GLUCOSE METER Routine 04/19/2020 12:52 PM CDT XR ABDOMEN / KUB 1 VIEW STAT 04/19/2020 12:48 PM CDT CBC W/PLT COUNT & AUTO Routine 04/19/2020 DIFFERENTIAL 10:42 AM CDT BLOOD GAS, ARTERIAL STAT 04/19/2020 10:42 AM CDT PHOSPHORUS Routine 04/19/2020 10:42 AM CDT MAGNESIUM STAT 04/19/2020 10:42 AM CDT BASIC METABOLIC PANEL (7) Routine 04/19/2020 10:42 AM CDT CBC W/PLT COUNT & AUTO Routine 04/19/2020 DIFFERENTIAL 10:42 AM CDT XR CHEST 1 VIEW STAT 04/19/2020 PORTABLE/BEDSIDE 10:22 AM CDT POCT-GLUCOSE METER Routine 04/19/2020 5:03 AM CDT PREALBUMIN STAT 04/19/2020 3:21 AM CDT POCT-GLUCOSE METER Routine 04/18/2020 11:28 PM CDT POCT-GLUCOSE METER Routine 04/18/2020 5:53 PM CDT POCT-GLUCOSE METER Routine 04/18/2020 12:10 PM CDT POCT-GLUCOSE METER Routine 04/18/2020 5:52 AM CDT CBC W/PLT COUNT & AUTO Routine 04/18/2020 DIFFERENTIAL 4:32 AM CDT BLOOD GAS, ARTERIAL STAT 04/18/2020 4:32 AM CDT BASIC METABOLIC PANEL (7) Routine 04/18/2020 4:32 AM CDT PHOSPHORUS Routine 04/18/2020 4:32 AM CDT MAGNESIUM Routine 04/18/2020 4:32 AM CDT CBC W/PLT COUNT & AUTO Routine 04/18/2020 DIFFERENTIAL 4:32 AM CDT XR CHEST 1 VIEW Routine 04/18/2020 PORTABLE/BEDSIDE 4:24 AM CDT POCT-GLUCOSE METER Routine 04/17/2020 11:33 PM CDT POCT-GLUCOSE METER Routine 04/17/2020 6:44 PM CDT XR ABDOMEN / KUB 1 VIEW Routine 04/17/2020 1:02 PM CDT POCT-GLUCOSE METER Routine 04/17/2020 11:50 AM CDT 2D ECHO W/ DOPPLER STAT 04/17/2020 (CW/PW/COLOR) 10:35 AM CDT VANCOMYCIN LEVEL, TROUGH Timed 04/17/2020 8:33 AM CDT CBC W/PLT COUNT & AUTO Routine 04/17/2020 DIFFERENTIAL 3:26 AM CDT BASIC METABOLIC PANEL (7) Routine 04/17/2020 3:26 AM CDT PHOSPHORUS Routine 04/17/2020 3:26 AM CDT MAGNESIUM Routine 04/17/2020 3:26 AM CDT CBC W/PLT COUNT & AUTO Routine 04/17/2020 DIFFERENTIAL 3:26 AM CDT VANCOMYCIN LEVEL, TROUGH Timed 04/16/2020 11:55 PM CDT POCT-GLUCOSE METER Routine 04/16/2020 11:46 PM CDT POCT-GLUCOSE METER Routine 04/16/2020 5:46 PM CDT BLOOD GAS, ARTERIAL STAT 04/16/2020 2:39 PM CDT POCT-GLUCOSE METER Routine 04/16/2020 1:36 PM CDT VENOUS DOPPLER LEGS STAT 04/16/2020 BILATERAL 11:52 AM CDT BLOOD GAS, ARTERIAL STAT 04/16/2020 8:06 AM CDT BLOOD CULTURE Routine 04/16/2020 6:45 AM CDT BLOOD CULTURE Routine 04/16/2020 6:39 AM CDT SPUTUM CULTURE + GRAM STAT 04/16/2020 STAIN 6:27 AM CDT CBC W/PLT COUNT & AUTO Routine 04/16/2020 DIFFERENTIAL 4:28 AM CDT BASIC METABOLIC PANEL (7) Routine 04/16/2020 4:28 AM CDT PHOSPHORUS Routine 04/16/2020 4:28 AM CDT MAGNESIUM Routine 04/16/2020 4:28 AM CDT CBC W/PLT COUNT & AUTO Routine 04/16/2020 DIFFERENTIAL 4:28 AM CDT CBC W/PLT COUNT & AUTO STAT 04/16/2020 DIFFERENTIAL 2:08 AM CDT CBC W/PLT COUNT & AUTO STAT 04/16/2020 DIFFERENTIAL 2:08 AM CDT POCT-GLUCOSE METER Routine 04/16/2020 12:42 AM CDT URINALYSIS W/ REFLEX Routine 04/15/2020 URINE CULTURE 11:46 PM CDT BLOOD GAS, ARTERIAL STAT 04/15/2020 11:39 PM CDT CREATINE KINASE (CK) Routine 04/15/2020 11:30 PM CDT HEMOGLOBIN A1C Routine 04/15/2020 11:30 PM CDT COMPREHENSIVE METABOLIC Routine 04/15/2020 PANEL 11:30 PM CDT PROTHROMBIN TIME/INR Routine 04/15/2020 11:30 PM CDT XR CHEST 1 VIEW STAT 04/15/2020 PORTABLE/BEDSIDE 11:12 PM CDT after 06/12/2019 Results * RHYTHM STRIP - SCAN (06/16/2020 4:10 PM CDT) Only the most recent of 3 results within the time period is included. Narrative Performed At This result has an attachment that is n ot available. * POC-Glucose meter (06/12/2020 11:43 AM CDT) Only the most recent of 201 results within the time period is included. POC-Glucose Meter 153 (H)Comment: : TESTED AT 70 - 110 mg/dL [address] [address]: Aquatics Manager/Tray Drier ID = [id number] for Kajal Corado Specimen Blood Performing Organization Address City/State/[facility] Ph one Number [address] [facility] [facility] * Basic Metabolic Panel (06/12/2020 5:17 AM CDT) Only the most recent of 66 results within the time period is included. Sodium 140 136 - 145 meq/L [facility] Potassium 3.9 3.5 - 5.1 meq/L [facility] Chloride 100 98 - 107 meq/L [facility] CO2 33 (H) 22 - 29 meq/L [facility] BUN 56 (H) 7 - 21 mg/dL [facility] Creatinine 1.06 0.57 - 1.25 mg/dL [facility] Glucose 176 (H) 70 - 105 mg/dL [facility] Calcium 9.0 8.4 - 10.2 mg/dL [facility] EGFR 80Comment: ESTIMATED GFR IS mL/min/1.73 sq m [facility] NOT ACCURATE CREATININE [facility] CLEARANCE IN PREDICTING GLOMERULAR FILTRATION RATE. ESTIMATED GFR IS NOT APPLICABLE FOR DIALYSIS PATIENTS. Specimen Blood Narrative Performed At Aquatics Manager ID - PIAYA L [facility] Performing Organization Address City/State/Zipcode Ph one Number [facility] [address] [place], [place] [facility] [facility] * CBC with platelet count + automated diff (06/12/2020 3:54 AM CDT) Only the most recent of 64 results within the time period is included. WBC 3.6 3.5 - 10.5 K/L [facility] RBC 3.48 (L) 4.63 - 6.08 M/L [facility] Hemoglobin 9.4 (L) 13.7 - 17.5 GM/DL [facility] Hematocrit 29.2 (L) 40.1 - 51.0 % [facility] MCV 83.9 79.0 - 92.2 fL [facility] MCH 27.0 25.7 - 32.2 pg [facility] MCHC 32.2 (L) 32.3 - 36.5 GM/DL [facility] RDW 15.0 (H) 11.6 - 14.4 % [facility] Platelets 188 150 - 450 K/CU MM [facility] MPV 10.4 9.4 - 12.4 fL [facility] nRBC 0 0 - 0 /100 WBC [facility] % Neutros 54 % [facility] % Lymphs 28 % [facility] % Monos 17 % [facility] % Eos 1 % [facility] % Baso 0 % [facility] # Neutros 1.91 1.78 - 5.38 K/L [facility] # Lymphs 1.00 (L) 1.32 - 3.57 K/L [facility] # Monos 0.59 0.30 - 0.82 K/L [facility] # Eos 0.04 0.04 - 0.54 K/L [facility] # Baso 0.01 0.01 - 0.08 K/L [facility] Immature 1 0 - 1 % [facility] Granulocytes-Relative [facility] Specimen Blood Performing Organization Address [facility] one [place] [address] [phone] [place] [address] * TRANSFUSION SERVICE REPORT - SCAN (06/11/2020 6:01 PM CDT) Only the most recent of 17 results within the time period is included. Narrative Performed At This result has an attachment that is n ot available. * C-Reactive Protein (06/11/2020 5:31 AM CDT) Only the most recent of 2 results within the time period is included. CRP 10.32 (H) 0.00 - 0.50 mg/dL [facility] Specimen Blood Narrative Performed At Aquatics Manager ID - PIAYA L [facility] Performing Organization Address [facility] one [place] [address] [facility] * Lactate dehydrogenase (LDH) (06/11/2020 5:31 AM CDT) LDH 237 (H) 125 - 220 U/L [facility] Specimen Blood Narrative Performed At Aquatics Manager ID - PIFOX L [facility] Performing Organization Address City/[facility] Ph one [place] [address] 0 [phone] [place] [address] * Comprehensive metabolic panel (06/11/2020 5:31 AM CDT) Only the most recent of 3 results within the time period is included. Protein, Total 8.2 6.0 - 8.3 gm/dL [facility] Albumin 3.1 (L) 3.5 - 5.0 g/dL [facility] Alkaline Phosphatase 241 (H) 40 - 150 U/L [facility] Total Bilirubin 0.4 0.2 - 1.2 mg/dL [facility] Sodium 139 136 - 145 meq/L [facility] Potassium 4.0 3.5 - 5.1 meq/L [facility] Chloride 99 98 - 107 meq/L [facility] CO2 32 (H) 22 - 29 meq/L [facility] BUN 47 (H) 7 - 21 mg/dL [facility] Creatinine 1.04 0.57 - 1.25 mg/dL [facility] Glucose 198 (H) 70 - 105 mg/dL [facility] Calcium 9.2 8.4 - 10.2 mg/dL [facility] AST 62 (H) 5 - 34 U/L [facility] ALT 95 (H) 6 - 55 U/L [facility] EGFR 81Comment: ESTIMATED GFR IS mL/min/1.73 sq m [facility] NOT ACCURATE CREATININE [facility] CLEARANCE IN PREDICTING GLOMERULAR FILTRATION RATE. ESTIMATED GFR IS NOT APPLICABLE FOR DIALYSIS PATIENTS. Specimen Blood Narrative Performed At Aquatics Manager ID - PIAYA L [facility] Performing Organization Address City/State/Zipcode Ph one Number [address] [facility] [facility] * Procalcitonin (06/11/2020 3:51 AM CDT) Only the most recent of 2 results within the time period is included. Procalcitonin 1.67 (H) <0.05 ng/mL [facility] Specimen Blood Narrative Performed At SEPSIS RISK (ng/mL) [facility] Low:0.05-0.50 [facility] Intermediate: 0.51-2.00 High: >=2.01 Performing Organization Address [facility] one Number [address] [facility] * D-dimer (06/11/2020 3:50 AM CDT) Only the most recent of 2 results within the time period is included. D-Dimer, Quant 0.98 (H) <0.50 MG/L FEU [facility] Specimen Blood Narrative Performed At Intended Use: The D-Dimer Assay can be used to aid in the diagnosis of Deep Vein [facility] Thrombosis (DVT) and Pulmonary Embolism Disease (PED) . [facility] In patients with low pre-test probabili ty, various studies concerning STA Liatest D-dimer test have reported that with a cutoff value of 0.50 MG/L FEU, the Negative Predictive Value (NPV) reg arding the exclusion of thrombosis is within 95-100% range. Performing Organization Address [facility] one [address] [facility] * Ferritin (06/11/2020 3:50 AM CDT) Only the most recent of 3 results within the time period is included. Ferritin 2,739.75 (H) 5.00 - 275.00 ng/mL [facility] Specimen Blood Narrative Performed At Aquatics Manager ID - [facility] C [facility] Performing Organization Address [facility] one [address] [facility] * Occult blood, stool (06/11/2020 12:15 AM CDT) Occult blood Negative Negative [facility] Specimen Stool Performing Organization Address City/[facility] Ph one Number [facility] [address] [place], [place] [address] [facility] * Prepare Leuko-Red RBC (06/10/2020 11:54 PM CDT) Only the most recent of 11 results within the time period is included. CROSSMATCH COMPATIBLE [facility] [place] Unit ABO A Neg [facility] [place] UNIT NUMBER [id number] [facility] [place] Status TX_TIMEINCHART [facility] [place] Blood Bank Product RED BLOOD CELLS [facility] [place] PRODUCT CODE [id number] [facility] [place] Specimen Other Performing Organization Address [facility] one Number [place] * SARS-CoV2/RT-PCR (Asymptomatic ONLY) (06/10/2020 1:58 PM CDT) Only the most recent of 5 results within the time period is included. SARS-COV2/RT-PCR Negative Not Detected, Negative [facility] SARS-COV-2 PERFORMING LAB BSC [facility] Specimen Other Narrative Performed At Negative result for this test determine s that SARS-CoV-2 RNA was not present in [facility] the specimen above the Limit of Detecti on (LOD).However, Negative results do [facility] not preclude SARS-CoV-2 infection and s hould not be used as the sole basis for treatment or patient management decisio ns. Negative results must be combined with clinical observations, patient his tory, and epidemiological information. A false negative result may occur if a sp ecimen is improperly collected, transported or handled.A false nega tive result should be considered if patient's recent exposures or clinical presentation indicate that COVID-19 (SARS-CoV-2) is likely and diagnostic t ests for other causes of illness are negative.Re-testing should be consi dered in cases of suspected false negatives. The limit of detection for this assay i s 800 copies/mL. This SARS CoV-2 test is a real-time RT- PCR test intended for the qualitative detection of nucleic acid from SARS-CoV -2 in a nasopharyngeal swab specimen collected from individuals suspected of COVID-19 by their healthcare provider. This test has not been Food and Drug Ad ministration (FDA) cleared or approved.This is a modified version of an approved Emergency Use Authorization (EUA) and is in the proce ss of review by the FDA. Once authorized by the FDA, the issued EUA w ill be effective until the declaration that circumstances exist justifying the authorization of the emergency use of in vitro diagnostic tests for detection an d/or diagnosis of COVID-19 is terminated under Section 564(b)(2) of the Act or t he EUA is revoked under Section 564(g) of the Act. Fact Sheet for Healthcare Providers: https://www.[employer]/sites/default/files/product/documents/Fact_Sheet_HC_Provi utyu_Jlym_YTAF-GwE-7.pdf Fact Sheet for Healthcare Patients: https://www.[employer]/sites/default/files/product/documents/Fact_Sheet_Patients _Hpgl_MWTE-EsH-6.pdf Performing Laboratory: [place] [address] Performing Organization Address City/State/[facility] Ph one Number [place] [address] [facility] * Urinalysis w/Microscopic + Reflex to Culture (06/10/2020 1:31 PM CDT) Only the most recent of 4 results within the time period is included. Color, UA Yellow [facility] Clarity, UA Hazy [facility] Specific Holden, UA 1.017 1.001 - 1.035 [facility] pH, UA 6.0 5.0 - 8.0 [facility] Protein, UA 70 mg/dL (A) Negative [facility] Glucose, UA Negative Negative [facility] Ketones, UA Negative Negative [facility] Bilirubin, UA Negative Negative [facility] Blood, UA Moderate (A) Negative [facility] Nitrite, UA Negative Negative [facility] Leukocytes, UA Large (A) Negative [facility] Urobilinogen, UA 0.2 0.2 - 1.0 mg/dL [facility] RBC, UA 13 /HPF [facility] WBC, UA 40 /HPF [facility] Bacteria, UA Many [facility] Mucus Rare [facility] Yeast Occasional [facility] Specimen Source [facility] Specimen Urine Narrative Performed At Aquatics Manager ID - [auto] [facility] Aquatics Manager ID - tech [facility] Performing Organization Address City/State/Zipcode Ph one Number [place] [address] [facility] * Urine culture (06/10/2020 1:31 PM CDT) Only the most recent of 2 results within the time period is included. Result >100,000 col/mL Enterobacter [facility] aerogenes (A)Comment: [facility] Positive Specimen Urine Antibiotic Method Susceptibility Organism Amikacin <=2: Susceptible Enterobacter aerogenes Aztreonam 16: Resistant Enterobacter aerogenes Cefepime <=1: Susceptible Enterobacter aerogenes Cefoxitin >=64: Resistant Enterobacter aerogenes Ceftazidime >=64: Resistant Enterobacter aerogenes Ceftriaxone 32: Resistant Enterobacter aerogenes Ertapenem <=0.5: Susceptible Enterobacter aerogenes Gentamicin <=1: Susceptible Enterobacter aerogenes Levofloxacin <=0.12: Susceptible Enterobacter aerogenes Meropenem <=0.25: Susceptible Enterobacter aerogenes Nitrofurantoin 64: Intermediate Enterobacter aerogenes Tetracycline <=1: Susceptible Enterobacter aerogenes Tobramycin <=1: Susceptible Enterobacter aerogenes Trimethoprim + Sulfamethoxazole <=20: Susceptible Enterobacter aerogenes Performing Organization Address City/[facility] Ph one Number [address] [facility]ENTER * XR chest 1 view portable / bedside (06/10/2020 11:47 AM CDT) Only the most recent of 57 results within the time period is included. Specimen Narrative Performed At FINAL REPORT GE RIS RAD, CHEST, 1 VIEW, NON DEPT INDICATION: f/u Pneumonia COMPARISON: Prior day's exam FINDINGS: Portable frontal view of the chest. IMPRESSION: Support Lines: Tracheostomy tip is 2 cm superior to the latasha. Lungs and pleura: Decreased bilateral i nterstitial thickening. No pneumothorax. Heart and mediastinum: Stable contours. Stable surgical changes. Additional findings: None. Signed: Aileen Deng MD Report Verified Date/Time: 0 13:58:05 Reading Location: [facility] C013 Neuro Re ading Room Procedure Note Interface, External Ris In - 06/10/2020 2:00 PM CDT FINAL REPORT RAD, CHEST, 1 VIEW, NON DEPT INDICATION: f/u Pneumonia COMPARISON: Prior day's exam FINDINGS: Portable frontal view of the chest. IMPRESSION: Support Lines: Tracheostomy tip is 2 cm superior to the latasha. Lungs and pleura: Decreased bilateral interstitial thickening. No pneumothorax. Heart and mediastinum: Stable contours. Stable surgical changes. Additional findings: None. Signed: Aileen Deng MD Report Verified Date/Time: 06/10/2020 13:58:05 Reading Location: [facility] B1 C013V Neuro Reading Room Performing Organization Address City/[facility] one Number GE RIS * Phosphorus (06/10/2020 4:54 AM CDT) Only the most recent of 46 results within the time period is included. Phosphorus 4.3 2.3 - 4.7 mg/dL [facility] Specimen Blood Narrative Performed At Aquatics Manager ID - PIAYA L [facility] Performing Organization Address [facility] one [address] 0 [phone] [place] [address] * Magnesium (06/10/2020 4:54 AM CDT) Only the most recent of 47 results within the time period is included. Magnesium 2.2 1.6 - 2.6 mg/dL [facility] Specimen Blood Narrative Performed At Aquatics Manager ID - PIAYA L [facility] Performing Organization Address [facility] Ph one [place] [address] 0 [phone] [place] [address] * Transfuse Leuko-Red RBC (06/09/2020 6:35 PM CDT) Only the most recent of 20 results within the time period is included. * Type and screen, automated (06/09/2020 11:47 AM CDT) Only the most recent of 7 results within the time period is included. Ab Scrn NEGATIVEComment: done on echo [facility] Specimen Blood Performing Organization Address [facility] one [address] [place] [address] * [place] esoph swallow funct with cine video (06/07/2020 12:30 PM CDT) Specimen Narrative Performed At FINAL REPORT RIS EXAMINATION: Modified barium swallow [facility] INDICATION: Tracheostomy. COMPARISON: None. TECHNIQUE: The examination was performe d in conjunction with speech pathology. Varying consistencies of bar ium was administered under lateral fluoroscopic observation. Fluoroscopy time: Two minutes Number of images: One IMPRESSION: Please refer to speech pathologist's no te from same date for further description. Penetration with thin liquids. No aspir ation. Delayed clearing of the pharynx with si gnificant residual following swallow.. Signed: Paco Joseph MD Report Verified Date/Time: 0 15:48:37 Reading Location: [place] [id number] Ortho Co nsult Reading Room Procedure Note Interface, External Ris In - 06/07/2020 3:50 PM CDT FINAL REPORT EXAMINATION: Modified barium swallow study INDICATION: Tracheostomy. COMPARISON: None. TECHNIQUE: The examination was performed in conjunction with speech pathology. Varying consistencies of barium was administered under lateral fluoroscopic observation. Fluoroscopy time: Two minutes Number of images: One IMPRESSION: Please refer to speech pathologist's note from same date for further description. Penetration with thin liquids. No aspiration. Delayed clearing of the pharynx with significant residual following swallow.. Signed: Paco Joseph MD Report Verified Date/Time: 06/07/2020 15:48:37 Reading Location: [facility] B1 C013X Ortho Consult Reading Room Performing Organization Address City/[facility] Ph one Number GE RIS * Fibrinogen (06/01/2020 4:31 AM CDT) Only the most recent of 2 results within the time period is included. Fibrinogen 457 (H) 225 - 434 mg/dl [facility] Specimen Blood Performing Organization Address [facility] one Number [place] [address] MED[facility]ENTER * PT/aPTT (05/31/2020 4:23 AM CDT) Only the most recent of 6 results within the time period is included. Protime 15.5 (H) 11.9 - 14.2 seconds [facility] INR 1.3 <=5.9 [facility] PTT 34.4 22.5 - 36.0 seconds [facility] Specimen Blood Narrative Performed At Effective 04/21/2019: PT Reference Range Change [facility] New: 11.9-14.2Previous: 11.7-14.7 [facility] MEDICAL CE NTER RECOMMENDED COUMADIN/WARFARIN INR THERA PY RANGES STANDARD DOSE: 2.0-3.0Includes: PRO PHYLAXIS for venous thrombosis, systemic embolization; TREATMENT for venous thro mbosis and/or pulmonary embolus. HIGH RISK: Target INR is 2.5-3.5 for pa tients wiht mechanical heart valves. Performing Organization Address [facility] one Number [place] [address] [facility] * Blood gas, arterial (05/30/2020 1:21 PM CDT) Only the most recent of 43 results within the time period is included. pH, Arterial 7.39 7.35 - 7.45 [facility] pCO2, Arterial 47 (H) 35 - 45 mmHg [facility] pO2, Arterial 130 (H) 80 - 90 mmHg [facility] O2 Sat, Arterial 98.6 (H) 96.0 - 97.0 % [facility] HCO3, Arterial 28 21 - 29 mmol/L [facility] Base Excess, Arterial 2.6 -2.0 - 3.0 mmol/L [facility] Patient Temperature 37.0 C [facility] FIO2 40.0 % [facility] Specimen Blood, Arterial Performing Organization Address [facility] one Number [place] [address] [facility] * 2D Echo W/Doppler(CW/PW/Color) (05/29/2020 11:28 AM CDT) Ejection Fraction [facility] Specimen Narrative Performed At Transthoracic Echocardiography Report (TTE) [facility] ECH O HEARTLAB Demographics 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 Clinical History HGB 7.8 HCT 25.3 % COVID 19 HTN DM DVT STROKE Height: 71 inches Weight: 73.94 kg (163 lbs) BSA: 1.93 m^2 BMI: 22.73 kg/m^2 HR: 102 bpm BP: 92/60 mmHg Summary Normal left ventricular chamber size. N ormal overall left ventricular systolic function. No apparent segmenta l wall motion abnormalities. Estimated LVEF by qualitative assessmen t is normal (>60%) . Normal diastolic function. Estimated peak systolic PA pressure is 40-45 mmHg (mild pulmonary hypertension) . Previous Study In comparison with the prior exam 2019 the following changes are noted: PAP lower . Signature Findings Left Ventricle Normal l eft ventricular chamber size. Normal wall thickness. Normal overall left ventricular systolic function. No apparent segmental wall motion abnormalities. Estimated LVEF by qualitative assessment is normal (>60%) . Normal diastolic function. Left AtriumLA s ize is normal . Right VentricleNormal r ight ventricle structure and function. Right Atrium Normal right atrium. Aortic Valve Normal AoV structure and function. Mitral Valve Normal MV structure and function. Tricuspid ValveA trace of tricuspid regurgitation. Estimated peak systolic PA pressure is 40-45 mmHg (mild pulmonary hypertension) . Pulmonic Valve Normal P V structure and function by limited views and Doppler. Aorta Aortic root size (SInus of Valsalva diameter) is normal . PericardiumNo e vidence of pericardial effusion. IVC/SVC/PA/PV/PleuralThe estimated RA pressure by IVC dynamics 5-10mmHg . Chambers/Structures Left Atrium LA Dimension: 3.7 cm LA Area: 20.23 cm^2 LA Volume: 66.36 ml LA Vol. Index: 34 ml/m^2 Left Ventricle LVIDd: 4.51 cm LVEDV:110.65 ml LV Septum Diastolic: 0.99 cm LV PW Diastolic: 0.99 cm LVEDV Draper's:98.77 ml LVESV Draper's:39.36 ml LVEF Draper's: 60.2 % LVEDVI: 51 ml/m^2 LVESVI: 20 ml/m^2 LVOT Diameter: 2 cm Right Ventricle RVOT VTI: 19 cm Aorta Ao Root S of Carley.: 3.21 cm Doppler/Quantitative Measurements Mitral Valve MV Peak E-Wave: 0.94 m/s MV Peak A-Wave: 0.87 m/s E/A Ratio: 1.09 Peak Gradient: 3.56 mmHg Deceleration Time: 181.9 msec MV Neha. Peak: Tissue Doppler E' Lateral Velocity: 0.12 m/s A' Lateral Velocity: 0.1 m/s E/E': 7.6 Aortic Valve Peak Velocity: 1.27 m/s Mean Velocity: 0.9 m/s Peak Gradient: 6.47 mmHg Mean Gradient: 3.54 mmHg AV Area (continuity): 2.47 cm^2 AV VTI: 21.72 cm AV DVI: 0.79 LVOT Peak Velocity: 0.97 m/s Peak Gradient: 3.8 mmHg Mean Velocity: 0.71 m/s Mean Gradient: 2.15 mmHg LVOT Diameter: 2 cm LVOT VTI: 17.12 cm LVOT Area: 3.14 cm^2 LVOT SV:53.76 ml LVOT CO: 5.48 l/min LVOT CI: 2.84 l/min/m^2 Tricuspid Valve TR Velocity: 2.77 m/s TR Gradient: 30.73 mmHg Procedure Note Interface, External Ris In - 05/29/2020 1:49 PM CDT Transthoracic Echocardiography Report (TTE) Demographics Patient Name KATE, Date of Study 05/29/2020 SUKHDEEP Gender Male Visit Number [id number] Race Unknown Room Number C826 Number Date of 1985 Referring Physician 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 Clinical History HGB 7.8 HCT 25.3 % COVID 19 HTN DM DVT STROKE Height: 71 inches Weight: 73.94 kg (163 lbs) BSA: 1.93 m^2 BMI: 22.73 kg/m^2 HR: 102 bpm BP: 92/60 mmHg Summary Normal left ventricular chamber size. Normal overall left ventricular systolic function. No apparent segmental wall motion abnormalities. Estimated LVEF by qualitative assessment is normal (>60%) . Normal diastolic function. Estimated peak systolic PA pressure is 40-45 mmHg (mild pulmonary hypertension) . Previous Study In comparison with the prior exam 05/19/2020 the following changes are noted: PAP lower . Signature Findings Left Ventricle Normal left ventricular chamber size. Normal wall thickness. Normal overall left ventricular systolic function. No apparent segmental wall motion abnormalities. Estimated LVEF by qualitative assessment is normal (>60%) . Normal diastolic function. Left Atrium LA size is normal . Right Ventricle Normal right ventricle structure and function. Right Atrium Normal right atrium. Aortic Valve Normal AoV structure and function. Mitral Valve Normal MV structure and function. Tricuspid Valve A trace of tricuspid regurgitation. Estimated peak systolic PA pressure is 40-45 mmHg (mild pulmonary hypertension) . Pulmonic Valve Normal PV structure and function by limited views and Doppler. Aorta Aortic root size (SInus of Valsalva diameter) is normal . Pericardium No evidence of pericardial effusion. IVC/SVC/PA/PV/Pleural The estimated RA pressure by IVC dynamics 5-10mmHg . Chambers/Structures Left Atrium LA Dimension: 3.7 cm LA Area: 20.23 cm^2 LA Volume: 66.36 ml LA Vol. Index: 34 ml/m^2 Left Ventricle LVIDd: 4.51 cm LVEDV:110.65 ml LV Septum Diastolic: 0.99 cm LV PW Diastolic: 0.99 cm LVEDV Draper's:98.77 ml LVESV Draper's:39.36 ml LVEF Draper's: 60.2 % LVEDVI: 51 ml/m^2 LVESVI: 20 ml/m^2 LVOT Diameter: 2 cm Right Ventricle RVOT VTI: 19 cm Aorta Ao Root S of Carley.: 3.21 cm Doppler/Quantitative Measurements Mitral Valve MV Peak E-Wave: 0.94 m/s MV Peak A-Wave: 0.87 m/s E/A Ratio: 1.09 Peak Gradient: 3.56 mmHg Deceleration Time: 181.9 msec MV Neha. Peak: Tissue Doppler E' Lateral Velocity: 0.12 m/s A' Lateral Velocity: 0.1 m/s E/E': 7.6 Aortic Valve Peak Velocity: 1.27 m/s Mean Velocity: 0.9 m/s Peak Gradient: 6.47 mmHg Mean Gradient: 3.54 mmHg AV Area (continuity): 2.47 cm^2 AV VTI: 21.72 cm AV DVI: 0.79 LVOT Peak Velocity: 0.97 m/s Peak Gradient: 3.8 mmHg Mean Velocity: 0.71 m/s Mean Gradient: 2.15 mmHg LVOT Diameter: 2 cm LVOT VTI: 17.12 cm LVOT Area: 3.14 cm^2 LVOT SV:53.76 ml LVOT CO: 5.48 l/min LVOT CI: 2.84 l/min/m^2 Tricuspid Valve TR Velocity: 2.77 m/s TR Gradient: 30.73 mmHg Performing Organization Address City/State/Zipcode Ph one Number [facility] * CBC (Hemogram only) (05/22/2020 10:34 AM CDT) Only the most recent of 9 results within the time period is included. WBC 6.1 3.5 - 10.5 K/L [facility] RBC 2.88 (L) 4.63 - 6.08 M/L [facility] Hemoglobin 8.0 (L) 13.7 - 17.5 GM/DL [facility] Hematocrit 25.2 (L) 40.1 - 51.0 % [facility] MCV 87.5 79.0 - 92.2 fL [facility] MCH 27.8 25.7 - 32.2 pg [facility] MCHC 31.7 (L) 32.3 - 36.5 GM/DL [facility] RDW 14.6 (H) 11.6 - 14.4 % [facility] Platelets 301 150 - 450 K/CU MM [facility] MPV 9.2 (L) 9.4 - 12.4 fL [facility] nRBC 0 0 - 0 /100 WBC [facility] Specimen Blood Performing Organization Address City/[facility] Ph one Number [address] [address] [facility] * aPTT (05/22/2020 6:18 AM CDT) Only the most recent of 34 results within the time period is included. PTT 88.1 (H) 22.5 - 36.0 seconds [facility] Specimen Blood Performing Organization Address City/[facility] Ph one Number [address] [facility] * Potassium (05/19/2020 8:01 PM CDT) Only the most recent of 7 results within the time period is included. Potassium 4.3Comment: Specimen slightly 3.5 - 5.1 meq/L [facility] hemolyzed [facility] Specimen Blood Narrative Performed At Aquatics Manager ID - BS [facility] Performing Organization Address City/State/Zipcode Ph one Number [facility] [address] [place] [address] MEDICAL CENTER * Sputum Culture + Gram Stain (05/19/2020 5:51 PM CDT) Only the most recent of 3 results within the time period is included. Result 3+ Enterobacter aerogenes (A) [facility] Result 1+ Staphylococcus aureus (A) [facility] Result 1 out of 4 media Aspergillus [facility] fumigatus () [facility] Gram Stain Result 2+ White blood cells seen [facility] Gram Stain Result 15-20 epithelial cells [facility] Gram Stain Result 3+ gram negative rods [facility] Specimen Sputum Narrative Performed At No Normal respiratory milli present [facility] Antibiotic Method Susceptibility Organism Amikacin <=2: Susceptible Enterobacter aerogenes Aztreonam <=1: Susceptible Enterobacter aerogenes Cefepime <=1: Susceptible Enterobacter aerogenes Cefoxitin >=64: Resistant Enterobacter aerogenes Ceftazidime 8: Susceptible Enterobacter aerogenes Ceftriaxone <=1: Susceptible Enterobacter aerogenes Ertapenem <=0.5: Susceptible Enterobacter aerogenes Gentamicin <=1: Susceptible Enterobacter aerogenes Levofloxacin <=0.12: Susceptible Enterobacter aerogenes Meropenem <=0.25: Susceptible Enterobacter aerogenes Tetracycline <=1: Susceptible Enterobacter aerogenes Tobramycin <=1: Susceptible Enterobacter aerogenes Trimethoprim + Sulfamethoxazole <=20: Susceptible Enterobacter aerogenes Clindamycin Resistant Staphylococcus aureus Erythromycin >=8: Resistant Staphylococcus aureus Linezolid 2: Susceptible Staphylococcus aureus Oxacillin 0.5: Susceptible Staphylococcus aureus Rifampin <=0.5: Susceptible Staphylococcus aureus Tetracycline <=1: Susceptible Staphylococcus aureus Trimethoprim + Sulfamethoxazole <=10: Susceptible Staphylococcus aureus Vancomycin <=0.5: Susceptible Staphylococcus aureus Performing Organization Address City/[facility] Ph one Number [facility] [address] [place], [place] [address] MEDICAL CENTER * ECG 12 lead (05/19/2020 4:32 PM CDT) Only the most recent of 4 results within the time period is included. Specimen Narrative Performed At Ventricular Rate 108 BPM GE MUSE Atrial Rate 108 BPM P-R Interval 136 ms QRS Duration 76 ms Q-T Interval 328 ms QTC Calculation(Bazett) 439 ms P [place] 72 degrees R [place] 78 degrees T [place] 77 degrees Sinus tachycardia Otherwise normal ECG When compared with ECG of 19-MAY-2020 1 6:31, Fusion complexes are no longer Present Confirmed by MD GOOD JOSEPH P ([id number]) on 05/27/2020 12:59:46 PM Procedure Note Interface, External Ris In - 05/27/2020 12:59 PM CDT Ventricular Rate 108 BPM Atrial Rate 108 BPM P-R Interval 136 ms QRS Duration 76 ms Q-T Interval 328 ms QTC Calculation(Bazett) 439 ms P [place] 72 degrees R [place] 78 degrees T [place] 77 degrees Sinus tachycardia Otherwise normal ECG When compared with ECG of 19-MAY-2020 16:31, Fusion complexes are no longer Present Confirmed by MD GOOD JOSEPH P ([id number]) on 05/27/2020 12:59:46 PM Performing Organization Address [facility] one Number GE MUSE * Troponin I (05/19/2020 2:39 PM CDT) Only the most recent of 4 results within the time period is included. Troponin I 0.03 0.00 - 0.03 ng/mL [facility] Specimen Blood Narrative Performed At Troponin I (TnI) levels must be interpreted in the co ntext of the presenting [facility] symptoms and the clinical findings. Elevated TnI leve ls indicate myocardial [facility] damage, but are not specific for ischem ic heart disease. Elevated TnI levels are seen in patients with other cardiac con ditions (including myocarditis and congestive heart failure), and slight T nI elevations occur in patients with other conditions, including sepsis, nathan al failure, acidosis, acute neurological disease, and persistent tachyarrhythmia . Aquatics Manager ID - BS Performing Organization Address City/State/Zipcode Ph one Number [facility] [address] [address] [facility] * 2D Echo W/Doppler(CW/PW/Color) (05/19/2020 10:48 AM CDT) Ejection Fraction [facility] ECHO [facility]ART[facility] Specimen Narrative Performed At Transthoracic Echocardiography Report (TTE) [facility] ECH [facility]ARTLAB Demographics 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 Clinical History DMII, DVT, cardiopulmonary arrest, HTN, Obesity, COVID 19 HGB 7.3 HCT 23.5 % Indication: PEA Contrast Medium: Definity. Height: 71 inches Weight: 73.94 kg (163 lbs) BSA: 1.93 m^2 BMI: 22.73 kg/m^2 HR: 115 bpm BP: 105/52 mmHg Summary 1. Normal LV size and function. LVEF is > 60% 2. Diastology: Normal 3. RV is mildly enlarged. RV function i s normal 4. No significant valvular heart diseas e 5. Mild TR. Estimated PASP is 50-54 mm Hg 6. No pericardial effusion 7. The area posterior to the LV appears echodense. Can't rule out lung consolidation. Previous Study In comparison with the prior exam 2019 the following changes are noted: the RV is mildly enlarged, estim ated PA systolic pressures is 50-54 mm Hg Signature Findings Technical Quality: Technically adequate exam. Left Ventricle LV endoc ardium is well visualized with IV ultrasound enhancing agent. The left ventricle is chamber size (by vol index) is normal (male - LVED vol - 34-74ml/m2). No evidence of LV hypertrophy. All of the LV segments contract normally . Global LV systolic function normal . LVEF by Draper's method of disk assessment is normal (>60%) . LV diastolic function is normal Left AtriumLA s ize is normal (16-34 ml/m2) . Right VentricleRV chamb er size is mildly enlarged . Global RV systolic function is normal Right Atrium RA siz e is normal. Aortic Valve Mild A oV cusp thickening. No evidence of aortic regurgitation. Mitral Valve Normal MV structure and function. Trace mitral regurgitation. Tricuspid ValveTV struc ture is normal. Mild tricuspid regurgitation. Estimated peak systolic PA pressure is 50-54 mmHg (moderate pulmonary hypertension) . Pulmonic Valve Normal P V structure and function by limited views and Doppler. Aorta Aortic root size (SInus of Valsalva diameter) is normal . PericardiumNo p ericardial effusion is visualized. IVC/SVC/PA/PV/PleuralThe estimated RA pressure by IVC dynamics 11-15mmHg . Chambers/Structures Left Atrium LA Volume: 56.68 ml LA Area: 20.81 cm^2 LA Vol. Index: 29 ml/m^2 Left Ventricle LVIDd: 5.17 cm LV Septum Diastolic: 0.82 cm LV PW Diastolic: 0.82 cm LVEDV Draper's:139.92 ml LVESV Draper's:50.63 ml LVEF Draper's: 63.8 % LVEDVI: 72 ml/m^2 LVESVI: 26 ml/m^2 LVOT Diameter: 2.07 cm Right Ventricle RVOT VTI: 18.11 cm Aorta Ao Root S of Carley.: 3.18 cm Doppler/Quantitative Measurements Mitral Valve MV Peak E-Wave: 0.93 m/s MV Peak A-Wave: 0.53 m/s E/A Ratio: 1.74 Peak Gradient: 3.43 mmHg Deceleration Time: 154.9 msec MV Neha. Peak: Tissue Doppler E' Lateral Velocity: 0.14 m/s E/E': 6.52 Aortic Valve Peak Velocity: 1.16 m/s Mean Velocity: 0.81 m/s Peak Gradient: 5.36 mmHg Mean Gradient: 2.95 mmHg AV Area (continuity): 3.45 cm^2 AV VTI: 18.85 cm AV DVI: 1.03 LVOT Peak Velocity: 1.11 m/s Peak Gradient: 4.89 mmHg Mean Velocity: 0.67 m/s Mean Gradient: 2.23 mmHg LVOT Diameter: 2.07 cm LVOT VTI: 19.36 cm LVOT Area: 3.37 cm^2 LVOT SV:65.12 ml LVOT CO: 7.49 l/min LVOT CI: 3.88 l/min/m^2 RVOT RVOT VTI (PW): 18.39 cm Tricuspid Valve TR Velocity: 3.05 m/s TR Gradient: 37.12 mmHg Procedure Note Interface, External Ris In - 05/19/2020 12:39 PM CDT Transthoracic Echocardiography Report (TTE) Demographics Patient Name SUKHDEEP LOVE Date of Study 05/19/2020 Gender Male Visit Number [id number] Race Unknown Room Number [id number] Number Date of 1985 Referring Physician carlton mclaughlin Age 35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 Clinical History DMII, DVT, cardiopulmonary arrest, HTN, Obesity, COVID 19 HGB 7.3 HCT 23.5 % Indication: PEA Contrast Medium: Definity. Height: 71 inches Weight: 73.94 kg (163 lbs) BSA: 1.93 m^2 BMI: 22.73 kg/m^2 HR: 115 bpm BP: 105/52 mmHg Summary 1. Normal LV size and function. LVEF is > 60% 2. Diastology: Normal 3. RV is mildly enlarged. RV function is normal 4. No significant valvular heart disease 5. Mild TR. Estimated PASP is 50-54 mm Hg 6. No pericardial effusion 7. The area posterior to the LV appears echodense. Can't rule out lung consolidation. Previous Study In comparison with the prior exam 04/17/2020 the following changes are noted: the RV is mildly enlarged, estimated PA systolic pressures is 50-54 mm Hg Signature Findings Technical Quality: Technically adequate exam. Left Ventricle LV endocardium is well visualized with IV ultrasound enhancing agent. The left ventricle is chamber size (by vol index) is normal (male - LVED vol - 34-74ml/m2). No evidence of LV hypertrophy. All of the LV segments contract normally . Global LV systolic function normal . LVEF by Draper's method of disk assessment is normal (>60%) . LV diastolic function is normal Left Atrium LA size is normal (16-34 ml/m2) . Right Ventricle RV chamber size is mildly enlarged . Global RV systolic function is normal Right Atrium RA size is normal. Aortic Valve Mild AoV cusp thickening. No evidence of aortic regurgitation. Mitral Valve Normal MV structure and function. Trace mitral regurgitation. Tricuspid Valve TV structure is normal. Mild tricuspid regurgitation. Estimated peak systolic PA pressure is 50-54 mmHg (moderate pulmonary hypertension) . Pulmonic Valve Normal PV structure and function by limited views and Doppler. Aorta Aortic root size (SInus of Valsalva diameter) is normal . Pericardium No pericardial effusion is visualized. IVC/SVC/PA/PV/Pleural The estimated RA pressure by IVC dynamics 11-15mmHg . Chambers/Structures Left Atrium LA Volume: 56.68 ml LA Area: 20.81 cm^2 LA Vol. Index: 29 ml/m^2 Left Ventricle LVIDd: 5.17 cm LV Septum Diastolic: 0.82 cm LV PW Diastolic: 0.82 cm LVEDV Draper's:139.92 ml LVESV Draper's:50.63 ml LVEF Draper's: 63.8 % LVEDVI: 72 ml/m^2 LVESVI: 26 ml/m^2 LVOT Diameter: 2.07 cm Right Ventricle RVOT VTI: 18.11 cm Aorta Ao Root S of Carley.: 3.18 cm Doppler/Quantitative Measurements Mitral Valve MV Peak E-Wave: 0.93 m/s MV Peak A-Wave: 0.53 m/s E/A Ratio: 1.74 Peak Gradient: 3.43 mmHg Deceleration Time: 154.9 msec MV Neha. Peak: Tissue Doppler E' Lateral Velocity: 0.14 m/s E/E': 6.52 Aortic Valve Peak Velocity: 1.16 m/s Mean Velocity: 0.81 m/s Peak Gradient: 5.36 mmHg Mean Gradient: 2.95 mmHg AV Area (continuity): 3.45 cm^2 AV VTI: 18.85 cm AV DVI: 1.03 LVOT Peak Velocity: 1.11 m/s Peak Gradient: 4.89 mmHg Mean Velocity: 0.67 m/s Mean Gradient: 2.23 mmHg LVOT Diameter: 2.07 cm LVOT VTI: 19.36 cm LVOT Area: 3.37 cm^2 LVOT SV:65.12 ml LVOT CO: 7.49 l/min LVOT CI: 3.88 l/min/m^2 RVOT RVOT VTI (PW): 18.39 cm Tricuspid Valve TR Velocity: 3.05 m/s TR Gradient: 37.12 mmHg Performing Organization Address City/State/Zipcode Ph one Number [facility] * XR abdomen / KUB 1 view (05/19/2020 9:53 AM CDT) Only the most recent of 8 results within the time period is included. Specimen Narrative Performed At FINAL REPORT [employer] RAD, ABDOMEN/KUB, 1 VIEW AP CLINICAL INDICATION:Abdominal fulln ess COMPARISON: None TECHNIQUE: Single, frontal radiograph o f the abdomen. FINDINGS: The bowel gas pattern is nonspecific, b ut nonobstructive. The regional skeleton is intact. IMPRESSION: Nonspecific, nonobstructive bowel gas p attern. Signed: Aileen Deng MD Report Verified Date/Time: 0 10:07:26 Reading Location: [facility] Radiolo gy Reading Room Procedure Note Interface, External Ris In - 05/19/2020 10:13 AM CDT FINAL REPORT RAD, ABDOMEN/KUB, 1 VIEW AP CLINICAL INDICATION: Abdominal fullness COMPARISON: None TECHNIQUE: Single, frontal radiograph of the abdomen. FINDINGS: The bowel gas pattern is nonspecific, but nonobstructive. The regional skeleton is intact. IMPRESSION: Nonspecific, nonobstructive bowel gas pattern. Signed: Aileen Deng MD Report Verified Date/Time: 05/19/2020 10:07:26 Reading Location: [facility] Radiology Reading Room Performing Organization Address City/State/Zipcode Ph one Number GE RIS * EEG AWAKE/ASLEEP (05/17/2020 1:32 PM CDT) Specimen Narrative Performed At Date(s) of EE05/17/2020 GE RIS DATE OF REPORT:05/17/2020 ACC: [id number] EEG Number: [id number] Test Location: Inpatient ICU Start time: 05/17/2020 13:11 Stop time: 05/17/2020 13:32 ICD-10: R41.82 CPT Code: 50179 HISTORY: 35 y.o. male with uncontro lled diabetes mellitus, and recent COVID pneumonia who is status po st tracheostomy placement, acute renal insufficiency, DVT, and car ravinder pulmonary arrest in March 2020 with severe hypoxemia and left hem iparesis. MEDICATIONS THAT COULD AFFECT EEG:T erazosin, Propofol, Voriconazole TECHNICAL SUMMARY: This is a digital video-EEG recorded wi 32 input channels reviewed with bipolar and referential montages u sing the modified combinatorial system nomenclature. DESCRIPTION OF RECORD: Continuous myogenic artifact obscures l arge portions or the record. During the maximally alert state the ba ckground is populated with polymorphic 1-3 Hz activity with admixe d 4-6 Hz frequencies. There is no posterior dominant rhythm nor an amp litude-frequency gradient seen. The EEG background is reactive to external stimulation and there is some spontaneous variability o f the background rhythms. No state changes were seen. SIGNIFICANT VIDEO EVENTS: None SIGNIFICANT ELECTROCARDIOGRAM EVENTS: N one HV: Hyperventilation was not performed. PHOTIC STIMULATION: Photic stimulation was done from 1-33 Hz; no photic driving was seen; photoparoxysma l responses were absent. IMPRESSION: Abnormal EEG in Coma 1) Generalized slowing of the background rhythms, moderate. CLINICAL CORRELATION: Generalized slowi ng as seen in this record is consistent with an etiologically nonspe cific moderate encephalopathy. An EEG without epileptiform discharges does not exclude the possibility of epilepsy.If the clin ical suspicion of epilepsy remains, consider additional EEG record ings. Consider serial EEG's to further aid in prognosis. Deven Mayers MD Neurophysiology Fellow I certify that I have reviewed the enti re EEG, read and edited the report and agree with the fellow's find ings. Didier Lopez M.D., FACNS, FAAN, FA ES Professor of Neurology, [facility] [employer] Director, [facility] Ep[facility]psy [facility] Head, [facility] Procedure Note Interface, External Ris In - 05/17/2020 6:40 PM CDT Date(s) of EE05/17/2020 DATE OF REPORT: 05/17/2020 ACC: [id number] EEG Number: [id number] Test Location: Inpatient ICU Start time: 05/17/2020 13:11 Stop time: 05/17/2020 13:32 ICD-10: R41.82 CPT Code: 52518 HISTORY: 35 y.o. male with uncontrolled diabetes mellitus, and recent COVID pneumonia who is status post tracheostomy placement, acute renal insufficiency, DVT, and cardio pulmonary arrest in March 2020 with severe hypoxemia and left marycarmen paresis. MEDICATIONS THAT COULD AFFECT EEG: Terazosin, Propofol, Voriconazole TECHNICAL SUMMARY: This is a digital video-EEG recorded with 32 input channels reviewed with bipolar and referential montages using the modified combinatorial system nomenclature. DESCRIPTION OF RECORD: Continuous myogenic artifact obscures large portions or the record. During the maximally alert state the background is populated with polymorphic 1-3 Hz activity with admixed 4-6 Hz frequencies. There is no posterior dominant rhythm nor an amplitude-frequency gradient seen. The EEG background is reactive to external stimulation and there is some spontaneous variability of the background rhythms. No state changes were seen. SIGNIFICANT VIDEO EVENTS: None SIGNIFICANT ELECTROCARDIOGRAM EVENTS: None HV: Hyperventilation was not performed. PHOTIC STIMULATION: Photic stimulation was done from 1-33 Hz; no photic driving was seen; photoparoxysmal responses were absent. IMPRESSION: Abnormal EEG in Coma 1) Generalized slowing of the background rhythms, moderate. CLINICAL CORRELATION: Generalized slowing as seen in this record is consistent with an etiologically nonspecific moderate encephalopathy. An EEG without epileptiform discharges does not exclude the possibility of epilepsy. If the clinical suspicion of epilepsy remains, consider additional EEG recordings. Consider serial EEG's to further aid in prognosis. Deven Mayers MD Neurophysiology Fellow I certify that I have reviewed the entire EEG, read and edited the report and agree with the fellow's findings. Didier Lopez M.D., RAY, MARY, FIDENCIO Professor of Neurology, [facility] [employer] Director, [facility] Epilepsy [facility] Head, [facility] Performing Organization Address City/State/Zipcode Ph one Number [facility] * CT brain without IV contrast (05/17/2020 12:08 PM CDT) Specimen Narrative Performed At FINAL REPORT [facility] CT Head without contrast CLINICAL HISTORY: Altered mental status TECHNIQUE: Contiguous axial CT images t hrough the head without contrast. This exam was performed accor ding to the departmental dose optimization program which includes aut omated exposure control, adjustment of the mA and/or kV accordin g to the patient size, and/or use of an iterative reconstruction tech nique. COMPARISON: None FINDINGS: There is no CT evidence of acute infarc t or intracranial hemorrhage. There is mild periventricular and subco rtical white matter hypodensity which is nonspecific but co mpatible with chronic microvascular ischemic disease. There i s mild atherosclerotic calcification of the intracranial circu lation. There is mild generalized parenchymal volume without hydrocephalus, midline shift, or apparent mass effect. There are no e xtra-axial fluid collections. The skull is intact. The visualized par anasal sinuses are well-aerated. IMPRESSION: No CT evidence of acute infarct, hemorr sindy, or hydrocephalus. Signed: Edelmira Butt MD Report Verified Date/Time: 0 12:14:30 Reading Location: [address] Neuro Re ading Room Procedure Note Interface, External Ris In - 05/17/2020 12:16 PM CDT FINAL REPORT CT Head without contrast CLINICAL HISTORY: Altered mental status TECHNIQUE: Contiguous axial CT images through the head without contrast. This exam was performed according to the departmental dose optimization program which includes automated exposure control, adjustment of the mA and/or kV according to the patient size, and/or use of an iterative reconstruction technique. COMPARISON: None FINDINGS: There is no CT evidence of acute infarct or intracranial hemorrhage. There is mild periventricular and subcortical white matter hypodensity which is nonspecific but compatible with chronic microvascular ischemic disease. There is mild atherosclerotic calcification of the intracranial circulation. There is mild generalized parenchymal volume without hydrocephalus, midline shift, or apparent mass effect. There are no extra-axial fluid collections. The skull is intact. The visualized paranasal sinuses are well-aerated. IMPRESSION: No CT evidence of acute infarct, hemorrhage, or hydrocephalus. Signed: Edelmira Butt MD Report Verified Date/Time: 05/17/2020 12:14:30 Reading Location: [address] Neuro Reading Room Performing Organization Address City/[facility] Ph one Number [facility] * Potassium-Stat Lab (05/17/2020 9:30 AM CDT) Only the most recent of 3 results within the time period is included. Potassium 4.1 3.6 - 5.5 meq/L [facility] Specimen Blood, Arterial Performing Organization Address [facility] Ph one Number [address] [facility] * Sodium Na-Stat Lab (05/17/2020 9:30 AM CDT) Only the most recent of 3 results within the time period is included. Sodium 133 (L) 136 - 145 meq/L [facility] Specimen Blood, Arterial Performing Organization Address [facility] one Number [place] [id number] * Glucose-Stat Lab (05/17/2020 9:30 AM CDT) Only the most recent of 3 results within the time period is included. Glucose 223 (H) 70 - 110 mg/dL [facility] Specimen Blood, Arterial Performing Organization Address [facility] one Number [place] [address] [place] [address] * HGB/HCT (H&H)-Stat Lab (05/17/2020 9:30 AM CDT) Only the most recent of 3 results within the time period is included. Hemoglobin 8.0 (L) 13.0 - 16.8 g/dL [facility] Hematocrit 24.0 (L) 40.0 - 50.0 % [facility] Specimen Blood, Arterial Performing Organization Address [facility] one Number [place] [address] [place] [address] * Calcium, Ionized (05/17/2020 9:30 AM CDT) Only the most recent of 4 results within the time period is included. Calcium, Ion 1.06 (L) 1.12 - 1.27 mmol/L [facility] pH, Blood 7.52 [facility] Specimen Blood Performing Organization Address [facility] one Number [place] [phone] [place] [address] * Hemoglobin and hematocrit (05/13/2020 11:03 AM CDT) Only the most recent of 5 results within the time period is included. Hemoglobin 7.5 (L) 13.7 - 17.5 GM/DL [facility] Hematocrit 24.3 (L) 40.1 - 51.0 % [facility] Specimen Blood Narrative Performed At Aquatics Manager ID - [id number] [facility] Performing Organization Address City/[facility] Ph one Number [facility] [address] [place], [place] [address] [facility] * Prothrombin time/INR (05/11/2020 6:15 PM CDT) Only the most recent of 3 results within the time period is included. Protime 15.7 (H) 11.9 - 14.2 seconds [facility] INR 1.3 <=5.9 [facility] Specimen Blood Narrative Performed At Effective 04/21/2019: PT Reference Range Change [facility] New: 11.9-14.2Previous: 11.7-14.7 [facility] MEDICAL CE NTER RECOMMENDED COUMADIN/WARFARIN INR THERA PY RANGES STANDARD DOSE: 2.0-3.0Includes: PRO PHYLAXIS for venous thrombosis, systemic embolization; TREATMENT for venous thro mbosis and/or pulmonary embolus. HIGH RISK: Target INR is 2.5-3.5 for pa tients wiht mechanical heart valves. Performing Organization Address City/[facility] Ph one Number [facility] [address] [place], [place] [address] [facility] * IR Embolization Bleed (05/11/2020 2:29 PM CDT) Specimen Narrative Performed At FINAL REPORT [facility] History: Right chest wall hemorrhage. PROCEDURE: Following informed written consent, the patient's right femoral area was prepped and draped in the usual amy rile manner. 2% lidocaine was given locally for anesthesia. Additiona lly, the patient received 0.5 mg IV Versed and 25 mcg IV fentanyl for conscious sedation and pain control. Vital signs were monitored and remained stable. Conscious sedation and continuous patient monitor ing were performed by the attending radiologist aixa raza for approximately 60 minutes during the procedure. Access was gained to the right common f emoral artery and a 5 Wallisian sheath was placed. A 5 Wallisian Omni Flus h catheter was placed over a wire into the abdominal aorta and used to cross ureteropelvic bifurcation. The catheter was removed o layo a S4 World[employer] wire and a 5 Wallisian Sauer 2.5 reverse curve catheter was placed over the wire and formed over the aortic bifurcation with in the abdominal aorta. This catheter was then used to carefully jared ect and perform multiple selective right intercostal artery jeff riograms. With the catheter parked in the origin of what appears to be the intercostal artery lying between the right sixth and seven th rib, coaxial technique was utilized to advance an STC catheter ove r a microwire into this intercostal artery. Subselective interc ostal arteriography was performed to confirm the position of th e catheter. Transcatheter coil embolization of the intercostal artery was then achieved using two 3 mm x 8 cm Concerto detachable microcoil s. At the conclusion of the embolization, repeat subselective inter costals arteriogram was performed. The catheters and sheath wer e then removed and hemostasis achieved using a 5 Wallisian minx closure device. Overall, the patient tolerated the procedure well without im mediate complications and was discharged from the department in criti christopher but stable condition. FINDINGS: Right intercostal arteriography demonst rates a small pseudoaneurysm and acute contrast extravasation from t he distal intercostal artery lying between the six and seventh ribs posterolaterally. Subselective more distal right intercostal arteriogr am demonstrates a microcatheter expected position within this vessel. Small pseudoaneurysms and acute contrast extr avasation is again identified. Following coil embolization, the pseudo aneurysm is no longer seen and there is no longer active contrast extr avasation from the vessel. IMPRESSION: 1. Small pseudoaneurysm and active cont rast extravasation from a distal right intercostal artery lying b etween the six and seventh ribs posterior laterally as described a duke. This vessel was successfully coil embolized with succes sful treatment of the pseudoaneurysm and cessation of the ble eding. Total fluoroscopy time: 20.1 minutes. Estimated total patient dose reported a s (Ka,r): 921 mGy Signed: Alhaji Eddy MD Report Verified Date/Time: 0 17:14:34 Reading Location: [facility] Reading Room - [facility] 1.310.12 Procedure Note Interface, External Ris In - 05/12/2020 5:16 PM CDT FINAL REPORT History: Right chest wall hemorrhage. PROCEDURE: Following informed written consent, the patient's right femoral area was prepped and draped in the usual sterile manner. 2% lidocaine was given locally for anesthesia. Additionally, the patient received 0.5 mg IV Versed and 25 mcg IV fentanyl for conscious sedation and pain control. Vital signs were monitored and remained stable. Conscious sedation and continuous patient monitoring were performed by the attending radiologist a registered nurse for approximately 60 minutes during the procedure. Access was gained to the right common femoral artery and a 5 Wallisian sheath was placed. A 5 Wallisian Omni Flush catheter was placed over a wire into the abdominal aorta and used to cross ureteropelvic bifurcation. The catheter was removed over a S4 Worldwide wire and a 5 Wallisian Sauer 2.5 reverse curve catheter was placed over the wire and formed over the aortic bifurcation within the abdominal aorta. This catheter was then used to carefully select and perform multiple selective right intercostal artery arteriograms. With the catheter parked in the origin of what appears to be the intercostal artery lying between the right sixth and seventh rib, coaxial technique was utilized to advance an STC catheter over a microwire into this intercostal artery. Subselective intercostal arteriography was performed to confirm the position of the catheter. Transcatheter coil embolization of the intercostal artery was then achieved using two 3 mm x 8 cm Concerto detachable microcoils. At the conclusion of the embolization, repeat subselective intercostals arteriogram was performed. The catheters and sheath were then removed and hemostasis achieved using a 5 Wallisian minx closure device. Overall, the patient tolerated the procedure well without immediate complications and was discharged from the department in critical but stable condition. FINDINGS: Right intercostal arteriography demonstrates a small pseudoaneurysm and acute contrast extravasation from the distal intercostal artery lying between the six and seventh ribs posterolaterally. Subselective more distal right intercostal arteriogram demonstrates a microcatheter expected position within this vessel. Small pseudoaneurysms and acute contrast extravasation is again identified. Following coil embolization, the pseudoaneurysm is no longer seen and there is no longer active contrast extravasation from the vessel. IMPRESSION: 1. Small pseudoaneurysm and active contr ast extravasation from a distal right intercostal artery lying between the six and seventh ribs posterior laterally as described above. This vessel was successfully coil embolized with successful treatment of the pseudoaneurysm and cessation of the bleeding. Total fluoroscopy time: 20.1 minutes. Estimated total patient dose reported as (Ka,r): 921 mGy Signed: Alhaji Eddy MD Report Verified Date/Time: 05/12/2020 17:14:34 Reading Location: [facility] Diagnostic Imaging Reading Room - [facility] 1.310.12 Performing Organization Address City/State/Zipcode Ph one Number [facility] * IR IVC Filter Placement (05/11/2020 2:29 PM CDT) Specimen Narrative Performed At FINAL REPORT [facility] PROCEDURE: Inferior vena cava (IVC) cindy ter insertion Procedural Personnel Attending physician(s): Alhaji Eddy Fellow physician(s): Dr Mercedes Resident physician(s): None Advanced practice provider(s): None Pre-procedure diagnosis: Same Post-procedure diagnosis: Same Indication: Chest wall hemorrhage, DVT, contraindication to anti-coagulation Additional clinical history: None Complications: No immediate complicatio ns. IMPRESSION: Technically successful insertion of inf erior vena cava filter in the infrarenal IVC. Plan: Retrieval intent (MIPS): The filter is retrievable and patient will be followed up for potential removal. PROCEDURE SUMMARY: - IVC filter insertion under fluoroscop ic guidance PROCEDURE DETAILS: Pre-procedure Informed consent for the procedure incl uding risks, benefits and alternatives was obtained and time-out was performed prior to the procedure. Preparation (MIPS): The site was prepar ed and draped using all elements of maximal sterile barrier eda hnique including sterile gloves, sterile gown, cap, mask, large sterile sheet, sterile ultrasound probe cover, hand hygiene, a nd cutaneous antisepsis with 2% chlorhexidine Medical reason for site preparation exc eption (MIPS): Not applicable Anesthesia/sedation Level of anesthesia/sedation: Moderate sedation (conscious sedation) Anesthesia/sedation administered by: In dependent trained observer under attending supervision with contin uous monitoring of the patient\\X2019\\s level of consciousness and physiologic status Duration of anesthesia/sedation:15 anabelle myesha. Access Local anesthesia was administered. The vessel was sonographically evaluated and judged appropriate for ac cess. Real time ultrasound was used to visualize needle entry into the vessel and a permanent image . Acces vein side: Right Vein accessed: Femoral vein Access vein ultrasound findings: Patent Access technique: Seldinger Venography Venography of the inferior vena cava (I VC) was performed to evaluate IVC size. IVC patency: Patent IVC size: Normal (up to 30 mm) IVC anatomy: Conventional Catheter tip position for venography: I nferior vena cava Additional findings: Patent IVC with no rmal diameter. Filter placement The filter delivery sheath was advanced and the filter was deployed under fluoroscopic guidance. Filter placed: Option Elite Unique Device Identifier (ROXANA): Not albert ilable Post-placement imaging Post-placement imaging technique: Contr ast venography Location of top of filter: Below the le neha of the lowest renal vein Filter Tilt: 15 degrees or less from th e IVC axis Additional findings: None Closure The sheath was removed and hemostasis w as achieved with manual compression. A sterile dressing was samra lied. Radiation Dose Fluoroscopy time 1.9mins Reference air kerma 64 mGy Additional Details Additional description of procedure: No ne Additional findings: None Equipment details: None Specimens removed: None Estimated blood loss: Less than 10 mL Standardized report: SIR_IVCFilterInser tion2.0 [id number] Attestation I, Alhaji Eddy attest that I was prese nt for the entire procedure. I reviewed the stored images and agree wi th the report as written. Signed: Alhaji Eddy MD Report Verified Date/Time: 0 17:30:31 Reading Location: [facility] Reading Room - [facility] 1.310.12 Procedure Note Interface, External Ris In - 05/12/2020 5:32 PM CDT FINAL REPORT PROCEDURE: Inferior vena cava (IVC) filter insertion Procedural Personnel Attending physician(s): Alhaji Eddy Fellow physician(s): Dr Mercedes Resident physician(s): None Advanced practice provider(s): None Pre-procedure diagnosis: Same Post-procedure diagnosis: Same Indication: Chest wall hemorrhage, DVT, contraindication to anti-coagulation Additional clinical history: None Complications: No immediate complications. IMPRESSION: Technically successful insertion of inferior vena cava filter in the infrarenal IVC. Plan: Retrieval intent (MIPS): The filter is retrievable and patient will be followed up for potential removal. PROCEDURE SUMMARY: - IVC filter insertion under fluoroscopi c guidance PROCEDURE DETAILS: Pre-procedure Informed consent for the procedure including risks, benefits and alternatives was obtained and time-out was performed prior to the procedure. Preparation (MIPS): The site was prepared and draped using all elements of maximal sterile barrier technique including sterile gloves, sterile gown, cap, mask, large sterile sheet, sterile ultrasound probe cover, hand hygiene, and cutaneous antisepsis with 2% chlorhexidine Medical reason for site preparation exception (MIPS): Not applicable Anesthesia/sedation Level of anesthesia/sedation: Moderate sedation (conscious sedation) Anesthesia/sedation administered by: Independent trained observer under attending supervision with continuous monitoring of the patient\\X2019\\s level of consciousness and physiologic status Duration of anesthesia/sedation:15 minutes. Access Local anesthesia was administered. The vessel was sonographically evaluated and judged appropriate for access. Real time ultrasound was used to visualize needle entry into the vessel and a permanent image . Acces vein side: Right Vein accessed: Femoral vein Access vein ultrasound findings: Patent Access technique: Seldinger Venography Venography of the inferior vena cava (IVC) was performed to evaluate IVC size. IVC patency: Patent IVC size: Normal (up to 30 mm) IVC anatomy: Conventional Catheter tip position for venography: Inferior vena cava Additional findings: Patent IVC with normal diameter. Filter placement The filter delivery sheath was advanced and the filter was deployed under fluoroscopic guidance. Filter placed: Option Elite Unique Device Identifier (ROXANA): Not available Post-placement imaging Post-placement imaging technique: Contrast venography Location of top of filter: Below the level of the lowest renal vein Filter Tilt: 15 degrees or less from the IVC axis Additional findings: None Closure The sheath was removed and hemostasis was achieved with manual compression. A sterile dressing was applied. Radiation Dose Fluoroscopy time 1.9mins Reference air kerma 64 mGy Additional Details Additional description of procedure: None Additional findings: None Equipment details: None Specimens removed: None Estimated blood loss: Less than 10 mL Standardized report: SIR_IVCFilterInsertion2.0 [id number] Attestation I, Alhaji Eddy attest that I was present for the entire procedure. I reviewed the stored images and agree with the report as written. Signed: Alhaji Eddy MD Report Verified Date/Time: 05/12/2020 17:30:31 Reading Location: [facility] Diagnostic Imaging Reading Room - [facility] 1.310.12 Performing Organization Address City/State/Zipcode Ph one Number GE [facility] * CTA chest (05/11/2020 11:24 AM CDT) Specimen Narrative Performed At Addendum Begins [facility] REPORT STATUS:A Addendum: May 16, 2020 at 1825 hours I have reviewed the CT images for this study and I concur with the nonvascular imaging findings as dictate d. There is a large hematoma in the right posterior lateral chest wa ll and a focus of contrast extravasation which appears to lie betw een the sixth and seventh ribs, consistent with an acute hemorrha ge, likely from an intercostal artery. Focal consolidative changes in both lower lobes likely represents atelectasis. Signed: Alhaji Eddy MD Report Verified Date/Time: 0 18:27:10 Reading Location: [facility] Radiology Readi ng Room Addendum Ends FINAL REPORT CT angiography of the thoracic aorta, 1 01-May-20 INDICATION: This is a 35 years old male , with haematoma presents for assessment. TECHNIQUE: Spiral acquisition before an d during intravenous contrast administration using a Siemens CT scann er. Images were obtained before and during the dynamic passage o f intravenous contrast material.Multi-planar 3-D volume-re ndering reconstruction was performed using an independent workstat ion interactively by the interpreting physician as well as the 3 -D specialist for optimal visualisation of the thoracic aorta and its proximal branches. Please refer to the contrast sheet scan ami in the [employer] system for the amount and route of contrast given. This exam was performed according to [facility] departmental dose-optimisation programme, which incl udes automated exposure control, adjustment of the mA and/or kV according to patient size and/or use of iterative reconstruction technique. Dose modulation, iterative reconstruction, and/or weight based adjustment of the mA/kV was utilized to reduce the radiation do se to as low as reasonably achievable. FINDINGS: VASCULAR: No significant pericardial effusion is seen. The central pulmonary artery is normal in calibre. The cardiac chambers demonstrate normal atrioventricular and ventriculoarterial concordance, and sys temic and pulmonary venous return. The left ventricle is normal in size. T here also appears to be mild left atrial prominence present. No mitr al annular calcification is seen. No aortic valvular calcification is identified. In the available images, coronal artery origin s are normal. However, there is scattered calcification identified i n the LAD and RCA territories, with motion artefact present. A central venous catheter is identified , with tip identified in the distal SVC. The thoracic aorta is normal in course, contour, and calibre. No ectasia or aneurysmal dilation is ident ified.There is no evidence of acute aortic pathology, specifically , there is no dissection, intramural hematoma, or contained ruptu re. The arch vessel branching pattern is normal and the visualised po rtion of the arch vessels are widely patent. NON-VASCULAR: THYROID: Unchanged Multiple lymph nodes are seen, unchange d. TRACHEOSTOMY TUBE: Unchanged LUNGS: See prior report by Thermograph Operator R adiologist for details. Bibasal pleural effusions identified. A ssociated atelectatic changes/consolidation seen in the lung bases. Tiny pneumothorax is identified in the right lung, for examp le at image 148. Airspace opacity is identified especially in the right apex in the right middle lobe. Nonspecific groundglass op acity are also seen for example in the left lung, and may repre sent cardiac congestion. UPPER ABDOMEN: Unchanged BONY STRUCTURES: Unchanged Large haematoma is identified in the ri ght lateral chest wall, external to the rib cage, for example, from image 38 extending down to image 152. No acute enhancement is n oted by Hounsfield unit measurement. However, small patchy enha ncement is identified in the right, image 110, also seen in the seco nd dynamic at image 110 as well. This could potentially represent the location of bleeding. The exact vessel is uncertain, and could be , and one of the intercostal. By visual estimation, no gross increase in size of the haematoma is noted when compared to prior examinatio n a few hours ago. CONCLUSIONS: 1.A large haematoma is identified i n the right lateral chest wall, external to the rib cage. No dramatic interval change is seen whe n compared to recent examination a few hours ago, and no inc reased in Hounsfield unit is appreciated after contrast administrati on. At image 110, tiny blush of contrast is identified, in both arterial and delay images, in the right, and may represent a focus of bleeding. 2.Unremarkable thoracic aorta. 3.Please refer to the above regardi ng pulmonary findings, with the description by the Thermograph Operator Radiologi st a few hours ago. 4.Other findings as described above . 5.An addendum will be dictated rega rding the non-vascular findings by the Thermograph Operator Radiologist. Signed: Nelson Rodriguez MD Report Verified Date/Time: 0 11:56:23 Reading Location: [place] [address] CT Readin g Room Procedure Note Interface, External Ris In - 05/16/2020 6:29 PM CDT Addendum Begins REPORT STATUS:A Addendum: May 16, 2020 at 1825 hours I have reviewed the CT images for this study and I concur with the nonvascular imaging findings as dictated. There is a large hematoma in the right posterior lateral chest wall and a focus of contrast extravasation which appears to lie between the sixth and seventh ribs, consistent with an acute hemorrhage, likely from an intercostal artery. Focal consolidative changes in both lower lobes likely represents atelectasis. Signed: Alhaji Eddy MD Report Verified Date/Time: 05/16/2020 18:27:10 Reading Location: [facility] Radiology Reading Room Addendum Ends FINAL REPORT CT angiography of the thoracic aorta, 11-May-20 INDICATION: This is a 35 years old male, with haematoma presents for assessment. TECHNIQUE: Spiral acquisition before and during intravenous contrast administration using a Siemens CT scanner. Images were obtained before and during the dynamic passage of intravenous contrast material. Multi-planar 3-D volume-rendering reconstruction was performed using an independent workstation interactively by the interpreting physician as well as the 3-D specialist for optimal visualisation of the thoracic aorta and its proximal branches. Please refer to the contrast sheet scanned in the [employer] system for the amount and route of contrast given. This exam was performed according to our departmental dose-optimisation programme, which includes automated exposure control, adjustment of the mA and/or kV according to patient size and/or use of iterative reconstruction technique. Dose modulation, iterative reconstruction, and/or weight based adjustment of the mA/kV was utilized to reduce the radiation dose to as low as reasonably achievable. FINDINGS: VASCULAR: No significant pericardial effusion is seen. The central pulmonary artery is normal in calibre. The cardiac chambers demonstrate normal atrioventricular and ventriculoarterial concordance, and systemic and pulmonary venous return. The left ventricle is normal in size. There also appears to be mild left atrial prominence present. No mitral annular calcification is seen. No aortic valvular calcification is identified. In the available images, coronal artery origins are normal. However, there is scattered calcification identified in the LAD and RCA territories, with motion artefact present. A central venous catheter is identified, with tip identified in the distal SVC. The thoracic aorta is normal in course, contour, and calibre. No ectasia or aneurysmal dilation is identified. There is no evidence of acute aortic pathology, specifically, there is no dissection, intramural hematoma, or contained rupture. The arch vessel branching pattern is normal and the visualised portion of the arch vessels are widely patent. NON-VASCULAR: THYROID: Unchanged Multiple lymph nodes are seen, unchanged. TRACHEOSTOMY TUBE: Unchanged LUNGS: See prior report by Thermograph Operator Radiologist for details. Bibasal pleural effusions identified. Associated atelectatic changes/consolidation seen in the lung bases. Tiny pneumothorax is identified in the right lung, for example at image 148. Airspace opacity is identified especially in the right apex in the right middle lobe. Nonspecific groundglass opacity are also seen for example in the left lung, and may represent cardiac congestion. UPPER ABDOMEN: Unchanged BONY STRUCTURES: Unchanged Large haematoma is identified in the right lateral chest wall, external to the rib cage, for example, from image 38 extending down to image 152. No acute enhancement is noted by Hounsfield unit measurement. However, small patchy enhancement is identified in the right, image 110, also seen in the second dynamic at image 110 as well. This could potentially represent the location of bleeding. The exact vessel is uncertain, and could be, and one of the intercostal. By visual estimation, no gross increase in size of the haematoma is noted when compared to prior examination a few hours ago. CONCLUSIONS: 1. A large haematoma is identified in t he right lateral chest wall, external to the rib cage. No dramatic interval change is seen when compared to recent examination a few hours ago, and no increased in Hounsfield unit is appreciated after contrast administration. At image 110, tiny blush of contrast is identified, in both arterial and delay images, in the right, and may represent a focus of bleeding. 2. Unremarkable thoracic aorta. 3. Please refer to the above regarding pulmonary findings, with the description by the Thermograph Operator Radiologist a few hours ago. 4. Other findings as described above. 5. An addendum will be dictated regardi ng the non-vascular findings by the Thermograph Operator Radiologist. Signed: Nelson Rodriguez MD Report Verified Date/Time: 05/11/2020 11:56:23 Reading Location: [place] [address] CT Reading Room Performing Organization Address City/State/Zipcode Ph one Number [facility] * CT chest with IV contrast (05/11/2020 6:21 AM CDT) Specimen Narrative Performed At FINAL REPORT [facility] EXAM: CT of the chest, with contrast. CLINICAL HISTORY:Dyspnea, chronic. Lump on the right scapula area, possible hemorrage, patient is s/p vats TECHNIQUE: Chest CT was performed with intravenous contrast. This exam was performed according to our dep artmental dose optimization program which includes automated exposu re control, adjustment of the mA and/or kV according to patient's siz e and/or use of iterative reconstructive technique. COMPARISON:Chest CT 05/06/2020. FINDINGS: LOWER NECK: Tracheostomy tube in place. AIRWAYS, PLEURA AND LUNGS: Small secret ions in the trachea and right mainstem bronchus. Small bilateral pleu ral effusions. Airspace consolidation in the bilateral lower lo bes with air bronchograms which may represent atelectasis and/or pneumonia. Small patchy airspace opacities in the bilateral upp er lobes and right middle lobe which may represent pneumonia and/or pu lmonary edema. Small peripheral thick-walled right upper lob e cavity abutting the minor fissure, grossly unchanged. Tiny locula yeyo right basilar pneumothorax. VESSELS: Within normal limits. HEART: Normal heart size. No pericardia l effusion. ARIS AND MEDIASTINUM: Again noted are s ubcentimeter and enlarged mediastinal lymph nodes which may be in fectious, inflammatory or neoplastic. VISUALIZED UPPER ABDOMEN: Small linear wedge-shaped hypodensity spleen which may represent an infarct. Splenomegaly. SOFT TISSUES: Diffuse soft tissue edema in the right chest wall. Hyperdense fluid collections in the rig ht lateral and posterior chest abdalla compatible with hematomas. Incomp letely imaged right chest wall however the largest hematoma pocket kingsley sures 18.6 x 16.4 x 5.2 cm in greatest dimensions. Mild bilateral distribution analyst ecomastia. Left PICC line with tip in the right atrium. BONES: Within normal limits. IMPRESSION: Large right chest wall hematoma. Small bilateral pleural effusions. Bilateral lower lobe consolidation whic h may represent atelectasis and/or pneumonia.Small patchy airsp bonifacio opacities in the bilateral upper and right middle lobes, which may represent pneumonia and/or pulmonary edema. Tracheobronchial secretions; consider a spiration. Stable small right upper lobe cavity. Tiny loculated right basilar pneumothor ax. Left PICC line with tip in the right at rium. Signed: Guadalupe Izaguirre MD Report Verified Date/Time: 0 06:56:07 Procedure Note Interface, External Ris In - 05/11/2020 6:59 AM CDT FINAL REPORT EXAM: CT of the chest, with contrast. CLINICAL HISTORY: Dyspnea, chronic. Lump on the right scapula area, possible hemorrage, patient is s/p vats TECHNIQUE: Chest CT was performed with intravenous contrast. This exam was performed according to our departmental dose optimization program which includes automated exposure control, adjustment of the mA and/or kV according to patient's size and/or use of iterative reconstructive technique. COMPARISON: Chest CT 05/06/2020. FINDINGS: LOWER NECK: Tracheostomy tube in place. AIRWAYS, PLEURA AND LUNGS: Small secretions in the trachea and right mainstem bronchus. Small bilateral pleural effusions. Airspace consolidation in the bilateral lower lobes with air bronchograms which may represent atelectasis and/or pneumonia. Small patchy airspace opacities in the bilateral upper lobes and right middle lobe which may represent pneumonia and/or pulmonary edema. Small peripheral thick-walled right upper lobe cavity abutting the minor fissure, grossly unchanged. Tiny loculated right basilar pneumothorax. VESSELS: Within normal limits. HEART: Normal heart size. No pericardial effusion. ARIS AND MEDIASTINUM: Again noted are subcentimeter and enlarged mediastinal lymph nodes which may be infectious, inflammatory or neoplastic. VISUALIZED UPPER ABDOMEN: Small linear wedge-shaped hypodensity spleen which may represent an infarct. Splenomegaly. SOFT TISSUES: Diffuse soft tissue edema in the right chest wall. Hyperdense fluid collections in the right lateral and posterior chest abdalla compatible with hematomas. Incompletely imaged right chest wall however the largest hematoma pocket measures 18.6 x 16.4 x 5.2 cm in greatest dimensions. Mild bilateral gynecomastia. Left PICC line with tip in the right atrium. BONES: Within normal limits. IMPRESSION: Large right chest wall hematoma. Small bilateral pleural effusions. Bilateral lower lobe consolidation which may represent atelectasis and/or pneumonia. Small patchy airspace opacities in the bilateral upper and right middle lobes, which may represent pneumonia and/or pulmonary edema. Tracheobronchial secretions; consider aspiration. Stable small right upper lobe cavity. Tiny loculated right basilar pneumothorax. Left PICC line with tip in the right atrium. Signed: Guadalupe Izaguirre MD Report Verified Date/Time: 05/11/2020 06:56:07 Performing Organization Address City/State/Zipcode Ph one Number [facility] RIS * Thromboelastograph (TEG) (05/11/2020 4:50 AM CDT) TEG Activated Clotting 7.9 (H) 4.0 - 7.0 minutes [facility] TEG Fibrinogen Activity 70.7 61.0 - 73.0 degrees C [facility] TEG Platelet Aggregation 80.8 (H) 55.0 - 65.0 MM [facility] TEG Fibrinolysis 0.1 0.0 - 5.0 % [facility] TEG-H Activated Clotting 7.6 (H) 4.0 - 7.0 minutes [facility] TEG-H Fibrinogen Activity 72.4 61.0 - 73.0 degrees [facility] TEG-H Platelet 77.7 (H) 55.0 - 65.[address] [facility] Aggregation [facility] TEG-H Fibrinolysis 0.9 0.0 - 5.0 % [facility] Specimen Blood Performing Organization Address [facility] one Number [place] [id number] [place], [place] [address] [facility] * Voriconazole Level (05/11/2020 3:49 AM CDT) Voriconazole, 1.2 1 - 6 g/mL [facility] Quantitation by LC-MS/MS Comment: REFERENCE INTERVAL - Therapeutic Range (trough):1.0-6.0g/mL Toxic Level:Greater than 6.0g/mL INTERPRETIVE DATA - Toxic concentrations may cause nausea, vomiting, peripheral edema and elevated serum liver enzymes. [email or web address] Compliance Statement B: This test was developed and its performance characteristics determined by [employer]. The U.S. Food and Drug Administration has not approved or cleared this test; however, FDA clearance or approval is not currently required for clinical use. The results are not intended to be used as the sole means for clinical diagnosis or patient management decisions. Specimen Blood Narrative Performed At This result has an attachment that is n ot available. Performing Organization Address [facility] one Number [facility] [address] [place] [address] * Manual Differential (05/10/2020 4:33 AM CDT) % Neutros (manual) 80 % [facility] % Lymphs (manual) 11 % [facility] % Monos (manual) 8 % [facility] % Eos (manual) 1 % [facility] # Neutros (manual) 5.44 1.80 - 8.00 K/L [facility] # Lymphs (manual) 0.75 (L) 1.48 - 4.50 K/L [facility] # Monos (manual) 0.54 0.00 - 1.30 K/L [facility] # Eos (manual) 0.07 0.00 - 0.50 K/L [facility] Total Counted 100 [facility] Platelet Morphology Normal [facility] Toxic Granulation Present [facility] Vacuolated Neutrophils Present [facility] Tear Drop Cells 1+ few [facility] Specimen Blood Narrative Performed At Platelets: normal [facility] Performing Organization Address [facility] Ph one Number [place] [phone] [place] [address] * Peripheral Blood Smear - Path Review (05/10/2020 4:33 AM CDT) WBC Morphology Toxic Granulation [facility] Reactive Lymphocytes [facility] Pathologist Review Cell counts confirmed. [facility] Pathologist: Stefanie Horton M.D. [facility] (electronic signature) [facility] Specimen Blood Performing Organization Address [facility] Ph one Number [place] [phone] [place] [address] * CBC with platelet count + manual diff (05/10/2020 4:33 AM CDT) WBC 6.8 3.5 - 10.5 K/L [facility] RBC 2.65 (L) 4.63 - 6.08 M/L [facility] Hemoglobin 7.2 (L) 13.7 - 17.5 GM/DL [facility] Hematocrit 23.2 (L) 40.1 - 51.0 % [facility] MCV 87.5 79.0 - 92.2 fL [facility] MCH 27.2 25.7 - 32.2 pg [facility] MCHC 31.0 (L) 32.3 - 36.5 GM/DL [facility] RDW 16.2 (H) 11.6 - 14.4 % [facility] Platelets 263 150 - 450 K/CU MM [facility] MPV 11.2 9.4 - 12.4 fL [facility] nRBC 0 0 - 0 /100 WBC [facility] Specimen Blood Performing Organization Address [facility] Ph one Number [place] [phone] [place] [address] * Vitamin B12 and Folate (05/10/2020 4:33 AM CDT) Vitamin B12 638 213 - 816 pg/mL [facility] Folate 9.20 >=7.00 ng/mL [facility] Specimen Blood Narrative Performed At Aquatics Manager ID - PIAYA L [facility] Performing Organization Address City/[facility] Ph one [place] [address] [address] [phone] [place] [address] * Reticulocyte count (05/10/2020 4:33 AM CDT) % Retic 1.8 0.5 - 1.8 % [facility] Specimen Blood Narrative Performed At Aquatics Manager ID - [id number] [facility] Performing Organization Address City/[facility] Ph one [place] [address] [address] [phone] [place] [address] * Iron, serum (05/10/2020 4:33 AM CDT) Only the most recent of 2 results within the time period is included. Iron 25.0 (L) 40.0 - 160.0 ug/dL [facility] Specimen Blood Narrative Performed At Aquatics Manager ID - ELAINE Ellison [facility] Performing Organization Address City/State/[facility] Ph one Number [place] [phone] * Iron, TIBC, % sat. (without ferritin) (05/09/2020 10:15 AM CDT) Iron 23.0 (L) 40.0 - 160.0 ug/dL [facility] TIBC 138 (L) 250 - 450 ug/dL [facility] Iron % Saturation 17 (L) 20 - 55 % [facility] Specimen Blood Narrative Performed At Aquatics Manager ID - ADRIA Hall [facility] Performing Organization Address [facility] one [place] [address] [phone] [place] [address] * Aspergillus galactomannan antigen (05/07/2020 12:15 AM CDT) Only the most recent of 2 results within the time period is included. Aspergillus Index Value <0.50 [facility] Aspergillus Antigen NOT DETECTED [facility] Comment: [facility] REFERENCE RANGE: <0.50, NOT DETECTED A negative result does not exclude invasive aspergillosis. Follow-up testing may be indicated for high-risk patients. Specimen Blood Narrative Performed At Performing Lab [facility] *[facility] Infect[facility] is[place] [address] [place] [address] Dave Hsu MD Performing Organization Address City/[facility] Cent[facility] Ph one Number [facility], [address] [place], [place] [facility] [address] * CT chest without IV contrast (05/06/2020 12:45 AM CDT) Only the most recent of 2 results within the time period is included. Specimen Narrative Performed At FINAL REPORT [facility] TECHNIQUE: CT scan of the chest WITHOUT intravenous contrast. Dose modulation, iterative reconstruction, a nd/or weight-based adjustment of the mA/kV was utilized to reduce the radiation dose to as low as reasonably achievable. INDICATION: Mold in sputum. COMPARISON: 04/20/2020. FINDINGS: ABSENCE OF INTRAVENOUS CONTRAST DECREAS ES SENSITIVITY FOR DETECTION OF FOCAL LESIONS AND VASCULAR PATHOLOGY . LINES/TUBES: Tracheostomy cannula in pl bonifacio within the thoracic trachea. Left PICC terminates at the ca voatrial junction. The pigtail catheter has been removed from the righ t chest base and there is small amount of air along the previous tract LUNGS AND AIRWAYS: There is patchy cons olidative opacities with interspersed ground glass parenchymal a ttenuation throughout the central peripheral right lung. Consolid ation with bronchograms in the right lower lobe. There are similar les s severe consolidative and groundglass opacities centrally distrib uted throughout the left lung with left basilar consolidation with ai r bronchograms. There is cavitary formation in the right upper l obe adjacent to the minor fissure similar appearance compared to prior with axial measurements of 1.4 x 1.9 cm. Small amount of secret ions present within the trachea. Central airways otherwise degroot nt. PLEURA: Significant decreased size of t he loculated right pneumothorax. There are small bilateral pleural effusions containing a few foci of air. HEART AND MEDIASTINUM: The visualized t hyroid gland is unremarkable. There are several prominent mediastinal lymph nodes including a paratracheal node that is 1.8 cm diamet er similar to previous and which is likely reactive. Heart is with in the upper limits of normal in size and there is a trace pericardia l effusion. SOFT TISSUES AND BONES: Diffuse subcuta neous stranding. No acute osseous abnormality. UPPER ABDOMEN: Splenomegaly with length of 16.2 cm. IMPRESSION: 1. Bilateral right greater than left ex tensive lung disease with bibasilar consolidations with air bronc hograms and small cavitary formation in the right upper lobe. Imag ing findings are nonspecific but suggestive of combination of multif ocal pneumonitis and atelectasis. 2. Small bilateral pleural effusions co ntaining a few foci of air. 3. Significant decreased size of the pr evious right loculated pneumothorax. 4. Splenomegaly. Signed: Yue Parker MD Report Verified Date/Time: 0 01:09:14 Procedure Note Interface, External Ris In - 05/06/2020 1:11 AM CDT FINAL REPORT TECHNIQUE: CT scan of the chest WITHOUT intravenous contrast. Dose modulation, iterative reconstruction, and/or weight-based adjustment of the mA/kV was utilized to reduce the radiation dose to as low as reasonably achievable. INDICATION: Mold in sputum. COMPARISON: 04/20/2020. FINDINGS: ABSENCE OF INTRAVENOUS CONTRAST DECREASES SENSITIVITY FOR DETECTION OF FOCAL LESIONS AND VASCULAR PATHOLOGY. LINES/TUBES: Tracheostomy cannula in place within the thoracic trachea. Left PICC terminates at the cavoatrial junction. The pigtail catheter has been removed from the right chest base and there is small amount of air along the previous tract LUNGS AND AIRWAYS: There is patchy consolidative opacities with interspersed ground glass parenchymal attenuation throughout the central peripheral right lung. Consolidation with bronchograms in the right lower lobe. There are similar less severe consolidative and groundglass opacities centrally distributed throughout the left lung with left basilar consolidation with air bronchograms. There is cavitary formation in the right upper lobe adjacent to the minor fissure similar appearance compared to prior with axial measurements of 1.4 x 1.9 cm. Small amount of secretions present within the trachea. Central airways otherwise patent. PLEURA: Significant decreased size of the loculated right pneumothorax. There are small bilateral pleural effusions containing a few foci of air. HEART AND MEDIASTINUM: The visualized thyroid gland is unremarkable. There are several prominent mediastinal lymph nodes including a paratracheal node that is 1.8 cm diameter similar to previous and which is likely reactive. Heart is within the upper limits of normal in size and there is a trace pericardial effusion. SOFT TISSUES AND BONES: Diffuse subcutaneous stranding. No acute osseous abnormality. UPPER ABDOMEN: Splenomegaly with length of 16.2 cm. IMPRESSION: 1. Bilateral right greater than left ext ensive lung disease with bibasilar consolidations with air bronchograms and small cavitary formation in the right upper lobe. Imaging findings are nonspecific but suggestive of combination of multifocal pneumonitis and atelectasis. 2. Small bilateral pleural effusions con taining a few foci of air. 3. Significant decreased size of the pre vious right loculated pneumothorax. 4. Splenomegaly. Signed: Yue Parker MD Report Verified Date/Time: 05/06/2020 01:09:14 Performing Organization Address City/State/[facility] Ph one Number GE RIS * Hepatic function panel (05/05/2020 3:11 AM CDT) Protein, Total 7.5Comment: Specimen slightly 6.0 - 8.3 gm/dL [facility] Albumin 2.2 (L)Comment: Specimen 3.5 - 5.0 g/dL [facility] Total Bilirubin 0.4Comment: Specimen slightly 0.2 - 1.2 mg/dL [facility] Bilirubin, Direct 0.2Comment: Specimen slightly 0.1 - 0.5 mg/ dL [facility] Alkaline Phosphatase 271 (H) 40 - 150 U/L [facility] AST 20Comment: Specimen slightly 5 - 34 U/L [facility] ALT 24Comment: Specimen slightly 6 - 55 U/L C [facility] Specimen Blood Narrative Performed At Aquatics Manager ID - LYNN Chapman [facility] Performing Organization Address [facility] one [address] * Vancomycin level, trough (05/04/2020 12:21 PM CDT) Only the most recent of 4 results within the time period is included. Vancomycin Tr 13.7 10.0 - 20.0 ug/mL [facility] Specimen Blood Narrative Performed At Aquatics Manager ID - ASHLEY Larsen [facility] Performing Organization Address [facility] one [place] [address] [place] [address] * Blood culture, routine Isolator (05/03/2020 8:43 PM CDT) Only the most recent of 2 results within the time period is included. Result No growth [facility] Specimen Blood Performing Organization Address City/State/Zipcode Ph one Number [address] [facility] * fungitell (05/03/2020 8:43 PM CDT) Scan Result [facility] Specimen Blood Narrative Performed At This result has an attachment that is n ot available. Performing Organization Address City/State/Zipcode Ph one Number [facility] [address] [place], [place] * Fungus culture, blood (Isolator) (05/03/2020 8:43 PM CDT) Result No fungus isolated [facility] Specimen Blood Performing Organization Address City/State/Zipcode Ph one Number [address] [facility] * ABORH, manual (05/02/2020 6:02 AM CDT) Only the most recent of 2 results within the time period is included. ABO Grouping A [facility] Rh Factor NEG [facility] Specimen Blood Performing Organization Address City/[facility] Ph one Number [address] [address] [facility] * Blood culture (04/30/2020 8:00 AM CDT) Only the most recent of 4 results within the time period is included. Result No growth in 5 days [facility] Specimen Blood Performing Organization Address City/State/Zipcode Ph one Number [address] [facility] * Glucose (04/29/2020 8:06 AM CDT) Glucose 216 (H) 70 - 105 mg/dL [facility] Specimen Blood Narrative Performed At Aquatics Manager ID - AAHAMID [facility] Performing Organization Address City/State/Zipcode Ph one Number [facility] [address] [place], [place] [address] [facility] * IR G-Tube to G-J Tube Conversion (04/25/2020 1:49 PM CDT) Specimen Narrative Performed At FINAL REPORT [facility] Procedure: Gastrostomy to gastrojejunos sridhar conversion. History: Gastroparesis. Difficulty alimentation. Automation Engineering Technician: Dionisio Godfrey M.D. Test Engine Mechanic:[place] Rob Modality: Sonography and fluoroscopy. DOSE REDUCTION: The examination was per formed according to departmental dose-optimization program. Fluoro time: 8.3 minutes. Radiation dose: 339 mGy air Kerma. Number of images: 6 Sedation: No sedation. Vital signs were monitored throughout the procedure by a dedicated RN under dire t supervision of Dr. Godfrey, and remained stable. Anesthesia: None Medicines: None Contrast medium: Isovue 300, 20 cc. Estimated blood loss:< 5 cc. Technique: A discussion of the risks, benefits, an d alternatives was carried out with the patient. A written informed co nsent was obtained. The patient expressed understanding and agr eed to proceed. A universal timeout was performed prior to starting the procedure. The procedure room personnel used perso nal protective equipment. The operators used sterile gowns and gloves . The patient was laid supine on the proc edure table. The surgical site was prepped with chlorhexidine gluconat e and draped in the standard sterile fashion. Photoresist Contact Printer radiograph was obtained. It showe d the gastrostomy tube in the expected location. There is Dobbhoff tu be looped up in the gastric lumen. There is a left upper quadrant/l eft pleural drain in place. Contrast injection was carried out thro ugh the G-tube. sales operations lead to opacification of the gastric fundus. Through the existing gastrostomy cathet er, combination of a Kumpe catheter and Glidewire was used to nego tiate the gastric antrum and pylorus and advanced catheter and wire down the duodenum into jejunum. This was assisted by intermitt ent injection of contrast medium and air. Over the catheter and w silke, the existing surgical gastrostomy mushroom type catheter was removed by applying constant traction. The Kumpe catheter was remove d. Over the guidewire, a 22 Wallisian 45 cm long transgastric gastroje junostomy catheter was deployed. The balloon was inflated with 8 cc of water mixed with 1 cc of saline. Contrast injection confirmed satisfactory intraluminal position of the gastric and jejunal par ts. The retention disc was secured in position with Prolene suture . The patient was transferred from the ra diology department in stable condition back to the ICU. Complications: None immediate. Findings: As above. Impression: Successful replacement of an existing s urgical gastrostomy with a 22 Wallisian transgastric gastrojejunostomy c atheter as described above. The jejunal port can be used immediatel y. The gastric port may be used after 24 hours. The Dobbhoff tube should be removed. Thank you for the opportunity to assist in the care of your patient. Signed: Dionisio Godfrey MD Report Verified Date/Time: 0 15:12:36 Reading Location: [place] [id number] Angio Bod y Reading Room Procedure Note Interface, External Ris In - 04/25/2020 3:14 PM CDT FINAL REPORT Procedure: Gastrostomy to gastrojejunostomy conversion. History: Gastroparesis. Difficulty alimentation. Automation Engineering Technician: Dionisio Godfrey M.D. Test Engine Mechanic: [place] Rob Modality: Sonography and fluoroscopy. DOSE REDUCTION: The examination was performed according to departmental dose-optimization program. Fluoro time: 8.3 minutes. Radiation dose: 339 mGy air Kerma. Number of images: 6 Sedation: No sedation. Vital signs were monitored throughout the procedure by a dedicated RN under direct supervision of Dr. Godfrey, and remained stable. Anesthesia: None Medicines: None Contrast medium: Isovue 300, 20 cc. Estimated blood loss: < 5 cc. Technique: A discussion of the risks, benefits, and alternatives was carried out with the patient. A written informed consent was obtained. The patient expressed understanding and agreed to proceed. A universal timeout was performed prior to starting the procedure. The procedure room personnel used personal protective equipment. The operators used sterile gowns and gloves. The patient was laid supine on the procedure table. The surgical site was prepped with chlorhexidine gluconate and draped in the standard sterile fashion. Photoresist Contact Printer radiograph was obtained. It showed the gastrostomy tube in the expected location. There is Dobbhoff tube looped up in the gastric lumen. There is a left upper quadrant/left pleural drain in place. Contrast injection was carried out through the G-tube. sales operations lead to opacification of the gastric fundus. Through the existing gastrostomy catheter, combination of a Kumpe catheter and Glidewire was used to negotiate the gastric antrum and pylorus and advanced catheter and wire down the duodenum into jejunum. This was assisted by intermittent injection of contrast medium and air. Over the catheter and wire, the existing surgical gastrostomy mushroom type catheter was removed by applying constant traction. The Kumpe catheter was removed. Over the guidewire, a 22 Wallisian 45 cm long transgastric gastrojejunostomy catheter was deployed. The balloon was inflated with 8 cc of water mixed with 1 cc of saline. Contrast injection confirmed satisfactory intraluminal position of the gastric and jejunal parts. The retention disc was secured in position with Prolene suture. The patient was transferred from the radiology department in stable condition back to the ICU. Complications: None immediate. Findings: As above. Impression: Successful replacement of an existing surgical gastrostomy with a 22 Wallisian transgastric gastrojejunostomy catheter as described above. The jejunal port can be used immediately. The gastric port may be used after 24 hours. The Dobbhoff tube should be removed. Thank you for the opportunity to assist in the care of your patient. Signed: Dionisio Godfrey MD Report Verified Date/Time: 04/25/2020 15:12:36 Reading Location: [address] Body Reading Room Performing Organization Address City/[facility] Ph one Number GE [facility] * Virus culture Expected virus: COVID (04/24/2020 8:09 PM CDT) Result No virus isolated [facility] Specimen BAL Narrative Performed At This result has an attachment that is n ot available. Performing Organization Address City/[facility] Ph one Number [facility] [address] [facility], [place] * AFB culture + smear (non-sputum) (04/24/2020 5:57 PM CDT) Result No acid-fast bacilli isolated [facility] in 42 days [facility] AFB Smear No acid fast bacilli seen [facility] Specimen Tissue Performing Organization Address [facility] one Number [address] 0 [phone] [place] [address] * Anaerobic culture (04/24/2020 5:57 PM CDT) Result No anaerobes isolated [facility] Specimen Tissue Performing Organization Address [facility] one Number [address] 0 [phone] [place] [address] * Surgically obtained culture + gram stain (04/24/2020 5:57 PM CDT) Result No growth [facility] Gram Stain Result 1+ WBCs [facility] Gram Stain Result No organisms seen [facility] Specimen Tissue Performing Organization Address [facility] one Number [address] 0 [phone] [place] [address] * Fungus culture + smear (04/24/2020 5:57 PM CDT) Result No fungus isolated in 28 days [facility] Fungus Smear No fungi seen [facility] Specimen Tissue Performing Organization Address [facility] one Number [address] 0 [phone] [place] [address] * Tissue Exam (04/24/2020 5:44 PM CDT) Case Report Surgical Pathology [facility] Case: [id number] Authorizing Provider:Carlton Mclaughlin, Collected: 04/24/2020 05:44 PM Ordering Location: [address] Received: 04/25/2020 09:30 AM Pathologist: Radha Lepe MD Specimen:Pleural, Right, Visceral Right Pleura DIAGNOSIS A. PLEURA, RIGHT VISCERAL, [facility] DECORTICATION: [facility] - FIBRINOPURULENT EXUDATE AND GRANULATION TISSUE, CONSISTENT WITH FIBRINOUS PLEURITIS. - NEGATIVE FOR MALIGNANCY/GRANULOMA. Signing Pathologist Direct Phone Line: [phone] CPT Code(s) 10128 [facility] CLINICAL HISTORY Loculated pneumothorax, [facility] pneumonia. [facility] SPECIMEN SOURCE Pleural, right [facility] GROSS DESCRIPTION Received in formalin labeled [facility] with the patient's name, [facility] accession number and "visceral right pleura" is a 8.4 x 8.0 x 0.7 cm aggregate of mcnamara-pink fibromembranous tissue and pickens-white fibrinous tissue. Sectioning reveals a mcnamara-pink fibrous cut surface. Perianesthesia Nurse sections are submitted in A1-A3. CAROLE Gamble ([facility])cm MICROSCOPIC DESCRIPTION Performed. [facility] Gross assessment was [facility] performed at [place], Department of [facility] TER Pathology, [address] [place] [id number], Technical component was [facility] performed at [place], Department of [facility] TER Pathology, [address] [place] [address], Professional component [facility] was performed at [place], Department of [facility] TER Pathology, [address] [place] [address], Specimen Tissue Performing Organization Address City/State/Zipcode Ph one Number [address] [address] [facility] * Triglycerides (04/24/2020 4:05 AM CDT) Triglycerides 144 mg/dL [facility] Specimen Blood Narrative Performed At TRIGLYCERIDE REFERENCE RANGE [facility] Low Risk<150 [facility] Borderline Risk 150-199 High [id number] Very High Risk >=500 Aquatics Manager ID - PIAYA L Performing Organization Address [facility] one [address] 0 [phone] [place] [address] * Lactic Acid, Arterial (04/21/2020 12:00 PM CDT) Lactate, Art 0.8 0.5 - 2.2 mmol/L [facility] Specimen Blood, Arterial Narrative Performed At Aquatics Manager ID - NTP [facility] Performing Organization Address [facility] one [address] 7[address] 0 [phone] [address] * POCT-HEMATOCRIT (04/21/2020 11:34 AM CDT) POC-Hematocrit 26 (L)Comment: : 40 - 50 % [facility] Aquatics Manager/Tray Drier ID = [facility] [id number] for MARMORENO Specimen Blood Performing Organization Address [facility] one [address] 0 [phone] [place] [address] * POCT-HEMOGLOBIN (04/21/2020 11:34 AM CDT) POC-Hemoglobin 8.8 (L)Comment: : TESTED AT 13.0 - 16.8 g/dL [address] [address]: Aquatics Manager/Tray Drier ID = [id number] for MAR MORENO Specimen Blood Performing Organization Address [facility] one [address] 770 0 [phone] [place] [address] * POCT-GLUCOSE (04/21/2020 11:34 AM CDT) POC-Glucose 230 (H)Comment: : TESTED AT 70 - 110 mg/dL [facility] [address] [address]: Aquatics Manager/Tray Drier ID = [id number] for MARMORENO Specimen Blood Performing Organization Address [facility] one [address] 7703 [facility] * POC-Sodium (04/21/2020 11:34 AM CDT) POC-Sodium 141Comment: : TESTED AT [facility] 135 - 148 meq/L [address] [address]: Aquatics Manager/Tray Drier ID = [id number] for MORENO MANUEL Specimen Blood Performing Organization Address [facility] one Number [address] 7703 [facility] * POC-Potassium (04/21/2020 11:34 AM CDT) POC-Potassium 4.8Comment: : TESTED AT [facility] 3.6 - 5.5 meq/L [address] [address]: Aquatics Manager/Tray Drier ID = [id number] for MORENO MANUEL Specimen Blood Performing Organization Address [facility] one Number [address] 7703 [facility] * POC-Calcium ionized (04/21/2020 11:34 AM CDT) POC-Calcium Ionized 2.08 (HH)Comment: : TESTED AT 1.12 - 1.27 mmol/L [address] [address]: Aquatics Manager/Tray Drier ID = [id number] for MORENO MANUEL Specimen Blood Performing Organization Address [facility] one Number [address] 7703 [facility] * POC-Blood gases, arterial (04/21/2020 11:34 AM CDT) Temp. Celsius-POC [facility] FIO2-POC [facility] pH, Arterial-POC 7.240 (L) 7.350 - 7.450 [facility] PCO2, Arterial-POC 76.1 (HH) 35.0 - 45.0 mm Hg [facility] PO2, Arterial-POC 191.0 (H) 80.0 - 90.0 mm Hg [facility] SO2, Arterial-POC 99.0 (H) 96.0 - 97.0 % [facility] HCO3, Arterilal-POC 32.6 (H) 21.0 - 29.0 meq/L [facility] BE, Arterial-POC 5.0 (H)Comment: : TESTED AT -2.0 - 3.0 meq/L [address] [address]: Aquatics Manager/Tray Drier ID = [id number] for MORENO MANUEL Specimen Blood Performing Organization Address [facility] one [place] [address] [phone] [place] [address] * Prealbumin (04/19/2020 3:21 AM CDT) Prealbumin 9 (L) 14 - 45 mg/dL [facility] Specimen Blood Narrative Performed At Aquatics Manager ID - PIAYA L [facility] Performing Organization Address [facility] Ph one [place] [address] [phone] [place] [address] * 2D Echo W/Doppler(CW/PW/Color) (04/17/2020 10:35 AM CDT) Ejection Fraction [facility]CHO 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 Clinical History DM II, DVT, Cardiopulmonary arrest, Sep sis, h/o COVID19, HTN, Renal insufficiency, Obesity Contrast Medium: Definity. Amount - 2 m l Height: 71 inches Weight: 86.18 kg (190 lbs) BSA: 2.06 m^2 BMI: 26.5 kg/m^2 HR: 100 bpm BP: 159/90 mmHg Summary LV endocardium is adequately visualized with IV ultrasound enhancing agent. The left ventricle is chamber si ze (by vol index) is normal (male - LVED vol - 34-74ml/m2). No evidence of LV hypertrophy. All of the LV segments contract normally . Global LV systolic function normal . LVEF by Draper's method of disk assessment is normal (>60%) . Degree of diastolic dysfunction (LAP assessment) is inconcl usive due to tachycardia . No pericardial effusion is visualized. The estimated RA pressure by IVC dynami cs 5-10mmHg . TV structure is normal. Unable to estimate peak systolic PA pre ssure; inadequate TR velocity signal. Previous Study No prior studies available for comparis on. Signature Findings Technical Quality: Technically difficul t exam. Rhythm/BPSi nus tachycardia during the exam. Left Ventricle LV endoc ardium is adequately visualized with IV ultrasound enhancing agent. The left ventricle is chamber size (by vol index) is normal (male - LVED vol - 34-74ml/m2). No evidence of LV hypertrophy. All of the LV segments contract normally . Global LV systolic function normal . LVEF by Draper's method of disk assessment is normal (>60%) . Degree of diastolic dysfunction (LAP assessment) is inconclusive due to tachycardia . Left AtriumLA s ize is mildly enlarged (35-41 ml/m2) . Right VentricleThe righ t ventricular chamber size and systolic function are within normal limits. Right Atrium RA siz e is normal. Aortic Valve Normal AoV structure and function. Mitral Valve Normal MV structure and function. Tricuspid ValveTV struc ture is normal. Unable to estimate peak systolic PA pressure; inadequate TR velocity signal. Pulmonic Valve Normal P V structure and function by limited views and Doppler. Aorta Aortic root size (SInus of Valsalva diameter) is normal . PericardiumNo p ericardial effusion is visualized. IVC/SVC/PA/PV/PleuralThe estimated RA pressure by IVC dynamics 5-10mmHg . Chambers/Structures Left Atrium LA Volume: 79.04 ml LA Area: 23.75 cm^2 LA Vol. Index: 38 ml/m^2 Left Ventricle LVIDd: 4.52 cm LV Septum Diastolic: 1.1 cm LV PW Diastolic: 1.1 cm LVEDV Draper's:135.32 ml LVESV Draper's:52.31 ml LVEF Draper's: 61.3 % LVEDVI: 66 ml/m^2 LVESVI: 25 ml/m^2 LVOT Diameter: 2.1 cm Right Ventricle RVOT VTI: 13.05 cm Aorta Ao Root S of Carley.: 3.24 cm Doppler/Quantitative Measurements Aortic Valve Peak Velocity: 1.24 m/s Mean Velocity: 0.91 m/s Peak Gradient: 6.2 mmHg Mean Gradient: 3.72 mmHg AV Area (continuity): 3.19 cm^2 AV VTI: 22.48 cm AV DVI: 0.92 LVOT Peak Velocity: 1.1 m/s Peak Gradient: 4.84 mmHg Mean Velocity: 0.75 m/s Mean Gradient: 2.59 mmHg LVOT Diameter: 2.1 cm LVOT VTI: 20.73 cm LVOT Area: 3.46 cm^2 LVOT SV:71.76 ml LVOT CO: 7.18 l/min LVOT CI: 3.49 l/min/m^2 Procedure Note Interface, External Ris In - 04/17/2020 6:20 PM CDT Transthoracic Echocardiography Report (TTE) Demographics Patient Name SUKHDEEP LOVE Date of Study 04/17/2020 Gender Male Visit Number [id number] Race Unknown Room Number 7A08 Number Date of 1985 Referring Physician Carlton Mclaughlin MD Age 35 year(s) 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 Clinical History DM II, DVT, Cardiopulmonary arrest, Sepsis, h/o COVID19, HTN, Renal insufficiency, Obesity Contrast Medium: Definity. Amount - 2 ml Height: 71 inches Weight: 86.18 kg (190 lbs) BSA: 2.06 m^2 BMI: 26.5 kg/m^2 HR: 100 bpm BP: 159/90 mmHg Summary LV endocardium is adequately visualized with IV ultrasound enhancing agent. The left ventricle is chamber size (by vol index) is normal (male - LVED vol - 34-74ml/m2). No evidence of LV hypertrophy. All of the LV segments contract normally . Global LV systolic function normal . LVEF by Draper's method of disk assessment is normal (>60%) . Degree of diastolic dysfunction (LAP assessment) is inconclusive due to tachycardia . No pericardial effusion is visualized. The estimated RA pressure by IVC dynamics 5-10mmHg . TV structure is normal. Unable to estimate peak systolic PA pressure; inadequate TR velocity signal. Previous Study No prior studies available for comparison. Signature Findings Technical Quality: Technically difficult exam. Rhythm/BP Sinus tachycardia during the exam. Left Ventricle LV endocardium is adequately visualized with IV ultrasound enhancing agent. The left ventricle is chamber size (by vol index) is normal (male - LVED vol - 34-74ml/m2). No evidence of LV hypertrophy. All of the LV segments contract normally . Global LV systolic function normal . LVEF by Draper's method of disk assessment is normal (>60%) . Degree of diastolic dysfunction (LAP assessment) is inconclusive due to tachycardia . Left Atrium LA size is mildly enlarged (35-41 ml/m2) . Right Ventricle The right ventricular chamber size and systolic function are within normal limits. Right Atrium RA size is normal. Aortic Valve Normal AoV structure and function. Mitral Valve Normal MV structure and function. Tricuspid Valve TV structure is normal. Unable to estimate peak systolic PA pressure; inadequate TR velocity signal. Pulmonic Valve Normal PV structure and function by limited views and Doppler. Aorta Aortic root size (SInus of Valsalva diameter) is normal . Pericardium No pericardial effusion is visualized. IVC/SVC/PA/PV/Pleural The estimated RA pressure by IVC dynamics 5-10mmHg . Chambers/Structures Left Atrium LA Volume: 79.04 ml LA Area: 23.75 cm^2 LA Vol. Index: 38 ml/m^2 Left Ventricle LVIDd: 4.52 cm LV Septum Diastolic: 1.1 cm LV PW Diastolic: 1.1 cm LVEDV Draper's:135.32 ml LVESV Draper's:52.31 ml LVEF Draper's: 61.3 % LVEDVI: 66 ml/m^2 LVESVI: 25 ml/m^2 LVOT Diameter: 2.1 cm Right Ventricle RVOT VTI: 13.05 cm Aorta Ao Root S of Carley.: 3.24 cm Doppler/Quantitative Measurements Aortic Valve Peak Velocity: 1.24 m/s Mean Velocity: 0.91 m/s Peak Gradient: 6.2 mmHg Mean Gradient: 3.72 mmHg AV Area (continuity): 3.19 cm^2 AV VTI: 22.48 cm AV DVI: 0.92 LVOT Peak Velocity: 1.1 m/s Peak Gradient: 4.84 mmHg Mean Velocity: 0.75 m/s Mean Gradient: 2.59 mmHg LVOT Diameter: 2.1 cm LVOT VTI: 20.73 cm LVOT Area: 3.46 cm^2 LVOT SV:71.76 ml LVOT CO: 7.18 l/min LVOT CI: 3.49 l/min/m^2 Performing Organization Address City/State/Zipcode Ph one Number [facility] * Venous doppler legs bilateral (04/16/2020 11:52 AM CDT) Ejection Fraction [facility] Specimen Impressions Performed At Right Impression [facility] 1. There is no deep venous obstruction in the common femoral, profunda [facility] femora or popliteal veins. 2. There is partial echolucent deep shirley ous obstruction in the mid-distal femoral and posterior tibial veins. 3. The peroneal veins were not visualiz ed. 4. There is no superficial venous obstr uction in the great saphenous vein. Left Impression 1. There is no deep venous obstruction in the common femoral, profunda femoral, femoral, popliteal and posteri or tibial veins 2. The peroneal veins were not visualiz ed. 3. There is no superficial venous obstr uction in the great saphenous vein. Conclusions Summary Venous duplex imaging and compression o f the bilateral lower extremities were performed. The veins were adequate ly visualized except as stated above. The right deep venous system was positive with acute thrombus. The left deep venous system was patent and compressible with no evidence of thrombus where visualized. Signature Velocities are measured in cm/s ; Diame ters are measured in cm Narrative Performed At [facility] - Lower Extremities DVT Study [facility] Demographics [facility] Patient NameSTERESA FLYNN LDate of Study 04/16/2020 35 Visit [id number] Date of 1985 Referring Carlton ang, Room Number 7A08 Physician Line Clearance Foreman Tone Gomez [facility] [place], T Physician Procedure Type of Study: Veins: Lower Extremities DVT Study, SHIRLEY OUS DOPPLER LEG, BILATERAL. Indications for Study:R/O DVT. Patient Status:STAT. Study Location:Portable. Technical Quality:Adequate visualizatio n. - Results were reported to:Samreen ROB@ 12:02. Risk Factors History of Disease +---------+----+ + !Diagnosis!Date!Comments ! +---------+----+ + !Other!!DVT, HTN, Strok e, Anemia, Blood Transfusion, Previous! ! !!COVID-19, DM ! +---------+----+ + Procedure Note Interface, External Ris In - 04/16/2020 3:06 PM CDT [facility] - Lower Extremities DVT Study Demographics Patient Name SUKHDEEP LOVE Date of Study 04/16/2020 Age 35 Visit Number [id number] Gender Male Accession Number [id number] Date of 1985 Referring Carlton Mclaughlin, Room Number 7A08 Physician Line Clearance Foreman Tone Gomez Interpreting Ann Marie Allen T Physician Procedure Type of Study: Veins: Lower Extremities DVT Study, VENOUS DOPPLER LEG, BILATERAL. Indications for Study:R/O DVT. Patient Status:STAT. Study Location:Portable. Technical Quality:Adequate visualization. - Results were reported to:Samreen ROB@12:02. Risk Factors History of Disease +---------+----+ + !Diagnosis!Date!Comments ! +---------+----+ + !Other ! !DVT, HTN, Stroke, Anemia, Blood Transfusion, Previous ! ! ! !COVID-19, DM ! +---------+----+ + Impressions Right Impression 1. There is no deep venous obstruction i n the common femoral, profunda femora or popliteal veins. 2. There is partial echolucent deep veno us obstruction in the mid-distal femoral and posterior tibial veins. 3. The peroneal veins were not visualize d. 4. There is no superficial venous obstru ction in the great saphenous vein. Left Impression 1. There is no deep venous obstruction i n the common femoral, profunda femoral, femoral, popliteal and posterior tibial veins 2. The peroneal veins were not visualize d. 3. There is no superficial venous obstru ction in the great saphenous vein. Conclusions Summary Venous duplex imaging and compression of the bilateral lower extremities were performed. The veins were adequately visualized except as stated above. The right deep venous system was positive with acute thrombus. The left deep venous system was patent and compressible with no evidence of thrombus where visualized. Signature Velocities are measured in cm/s ; Diameters are measured in cm Performing Organization Address [facility] one [facility] * Hemoglobin A1c (04/15/2020 11:30 PM CDT) Hemoglobin A1C 6.7 (H) 4.3 - 6.1 % [facility] Specimen Blood Performing Organization Address [facility] one Number [address] [facility] * Creatine Kinase (CK) (04/15/2020 11:30 PM CDT) Total CK 12 (L) 29 - 200 U/L [facility] Specimen Blood Narrative Performed At Aquatics Manager ANDREZ - LYNN Chapman [facility] Performing Organization Address [facility] Ph one Number [address] [facility] after 06/12/2019 Insurance Payer Benefit Subscriber ID Type Phone Address Plan / Group PENDING MEDICAID-OTHER EES xxx PENDING SSI CDC REVIEW CDC REVIEW xxxxx[place] [address] [place] [place] [phone] Advance Directives For more information, please contact: [facility] [address] [place] [address] Date Inactivated Comments Code Status Date Activated 06/12/2020 5:30 PM Full Code 04/15/2020 10:55 PM This code status was determined by: Patient
--- OUTSIDE RECORDS SUMMARY | 2020-06-23 14:07 | XMS REPORT | Continuity of Care Document ---
Author Author [facility] t Organization [facility] t Address [address] [place] [address] Phone Unavailable Care Team Providers Care Peanut Shaker Name Role Phone NO, PCP PCP Unavailable Devang KUMAR Attphys Unavailable Lissette TOVAR, Darren Hearn Attphys [phone] Vaughn ROB, Justen Attphys Unavailable Merrick TOVAR, Fartun Bobo Attphys [phone] Corona Munoz MD Attphys Ridge Palacio Attphys Unavailable DARREN MCLAUGHLIN Attphys Unavailable Devang KUMAR Admphys Unavailable DARREN MCLAUGHLIN Admphys Unavailable Payers Payer Name Policy Type Policy Number Effective Date Expiration Date S ource PENDING MEDICAID-OTHEREES PENDING SSIxxx xxx [facility] CDC REVIEWCDC REVIEWxxxxxxxx[place] [address] x xxxxxxx [facility] Problems Condition Name Condition Details Condition Category Status Onset Date Resolution Date Last Treatment Date Treating Clinician Comments Source Pulmonary hypertension Pulmonary hypertension Disease Active 2020-05-19 00:00:00 [facility] Sinus tachycardia Sinus tachycardia Disease Active 2020-05-19 00:00:00 [facility] Respiratory alkalosis Respiratory alkalosis Disease Active 202 00:00:00 [facility] Metabolic alkalosis Metabolic alkalosis Disease Active 2020-05-17 00:00 :00 [facility] Acute hypoxemic respiratory failure Acute hypoxemic respiratory failure Disease Active 2020-05-17 00:00:00 [facility] Orthostatic hypotension Orthostatic hypotension Disease Active 2020-05-15 00:00:00 [facility] Chronic pneumothorax Chronic pneumothorax Disease Active 00:00:00 [facility] Type 2 diabetes mellitus, with long-term current use o f insulin Type 2 diabetes mellitus, with long-term current use of insulin Disease Active 2020-04-15 00:00:00 [facility] History of 2019 novel coronavirus disease (COVID-19) H istory of 2018 novel coronavirus disease (COVID-19) Disease Active 2020-04-15 00:00:00 [facility] DVT (deep venous thrombosis) DVT (deep venous thrombosis) Disease Active 2020-04-15 00:00:00 [facility] Essential hypertension Essential hypertension Disease Active 2020-04-15 00:00:00 [facility] Renal insufficiency Renal insufficiency Disease Active 2020-04-15 00:00 :00 [facility] Cardiopulmonary arrest Cardiopulmonary arrest Disease Active 2020-04-15 00:00:00 [facility] Obesity Obesity Disease Active 2020-04-15 00:00:00 [facility] Decubitus ulcer Decubitus ulcer Disease Active 2020-04-15 00:00:00 [facility] Tracheostomy tube present Tracheostomy tube present Disease Ac tive 2020-04-15 00:00:00 [facility] Sepsis Sepsis Disease Active 2020-04-15 00:00:00 [facility] Gastrointestinal tube in situ Gastrointestinal tube in situ Disease Active 2020-04-15 00:00:00 [facility] Allergies, Adverse Reactions, Alerts This patient has no known allergies or adverse reactions. Social History Social Habit Start Date Stop Date Quantity Comments Source Sex Assigned At [facility] History SDOH Alcohol Frequency 2020-05-24 00:00:00 2020-05-24 00:00:0 0 3 [facility] History SDOH Alcohol Std Drinks 2020-05-24 00:00:00 2020-05-24 00:00: 00 1 [facility] History SDOH Alcohol Binge 2020-05-24 00:00:00 2020-05-24 00:00:00 2 [facility] Smoking Status Start Date Stop Date Source Former smoker 2020-05-24 00:00:00 2020-05-24 00:00:00 [facility] Medications Ordered Medication Name Filled Medication Name Start Date Stop Da te Current Medication? Ordering Clinician Indication Dosage Frequency Signature (SIG) Comments Components Source ferrous sulfate 300 mg (60 mg iron)/5 mL syrup 2 00:00:00 2021-06-13 23:59:00 Yes 300mg QD Take 5 mLs (300 mg total) by mo [facility] daily. [facility] fludrocortisone (FLORINEF) 0.1 mg tablet 2020-05 00:00:00 2021-06-13 23:59:00 Yes .1mg QD 1 tablet (0.1 mg total) by G-tu be route daily. [facility] polyethylene glycol (GLYCOLAX) 17 gram packet 20 12-06-21 00:00:00 2020-06-16 23:59:00 No 17g QD Take 17 g by mouth daily for 3 days. [facility] acetaminophen 650 mg/20.3 mL Soln 2020-06-12 00:00:00 Yes 650mg Take 20.3 mLs (650 mg total) by mouth every 6 (six) hours as needed. [facility] apixaban (ELIQUIS) 5 mg Tab tablet 2020-06-12 00:00:00 Yes 5mg Q.5D Take 1 tablet (5 mg total) by mouth 2 (two) times daily. [facility] sterile water for injection Soln 10 mL with cefePIME 1 gram SolR 1 g 2020-06-12 00:00:00 Yes 1g Inject 1 g intravenously every 12 (twelve) hours. [facility] famotidine (PEPCID) 20 MG tablet 2020-06-12 00:00:00 Yes 20mg Take 1 tablet (20 mg total) by mouth every 12 (twelve) hours. [facility] melatonin 10 mg Tab 2020-06-12 00:00:00 Yes 10mg 10 mg by Feed Tube route every night as needed. [facility] ondansetron (ZOFRAN) 4 mg/2 mL injection 2020-06-12 00:00:00 Yes 4mg Inject 2 mLs (4 mg total) intravenously every 12 (twelve) hours as needed. [facility] levalbuterol (XOPENEX) 0.63 mg/3 mL nebulizer solution 2020-06-12 00:00:00 2021-06-12 23:59:00 Yes .63mg Take 3 mLs (0.63 mg total) by nebulization every 6 (six) hours. [facility] ipratropium (ATROVENT) 0.02 % nebulizer solution 2020-06-12 00:00:00 2020-07-12 23:59:00 Yes .5mg Take 2.5 mLs (0.5 mg total) by nebulization every 6 (six) hours for 30 days. [facility] lidocaine (LIDODERM) 5 % patch 2020-06-12 00:00:00 2020-06-24 9 23:59:00 Yes 1{patch} Q24H Place 1 patch onto t he skin daily for 30 days Remove & Discard patch within 12 hours or as directed by MD. [facility] polyvinyl alcohol (LIQUIFILM TEARS) 1.4 % ophthalmic solutio n 2020-06-12 00:00:00 2020-07-12 23:59:00 Yes 1[drp] Place 1 drop into both eyes 4 (four) times daily as needed for up to 30 days. [facility] chlorhexidine (PERIDEX) 0.12 % solution 00:00:00 2020-06-26 23:59:00 Yes 15mL Q.5D Use as directe d 15 mLs in the mouth or throat 2 (two) times daily for 14 days. [facility] voriconazole (VFEND) 200 mg/5 mL (40 mg/mL) suspension 2020-06-12 00:00:00 2020-06-22 23:59:00 No 200mg Take 5 mLs (200 mg total) by mouth every 12 (twelve) hours for 10 days. [facility] Vital Signs Vital Name Observation Time Observation Value Comments Source Heart rate 2020-06-12 07:50:00 101 /min [facility] Respiratory rate 2020-06-12 07:50:00 10 /min [facility] Oxygen saturation in Arterial blood by Pulse oximetry 06-12 07:50:00 99 /min [facility] Systolic blood pressure 2020-06-12 07:46:00 137 mm[Hg] [facility] Diastolic blood pressure 2020-06-12 07:46:00 92 mm[Hg] [facility] Body temperature 2020-06-12 07:46:00 36.78 Mira [facility] Body weight Measured 2020-06-12 06:12:00 78.2 kg [facility] BMI 2020-06-12 06:12:00 24.04 kg/m2 [facility] Body height 2020-04-15 23:00:00 180.3 cm [facility] Body Temperature 2020-04-15 21:37:00 98.7 [degF] [facility] Weight 2020-04-15 07:05:00 232.31 [lb_av] [facility] BMI (Body Mass Index) 2020-04-15 07:05:00 32.4 kg/m2 [facility] Procedures Procedure Date / Time Performed Performing Clinician Dane leon RHYTHM STRIP - SCAN 2020-06-16 16:10:27 Provider, Default Scanni ng [facility] RHYTHM STRIP - SCAN 2020-06-14 09:00:19 Provider, Default Scanni ng [facility] RHYTHM STRIP - SCAN 2020-06-14 09:00:17 Provider, Default Titini ng [facility] POCT-GLUCOSE METER 2020-06-12 11:43:00 Dhiraj Mclaughlin [facility] POCT-GLUCOSE METER 2020-06-12 05:58:00 Dhiraj Mclaughlin [facility] BASIC METABOLIC PANEL (7) 2020-06-12 05:17:00 Cande Munoz [facility] CBC W/PLT COUNT & AUTO DIFFERENTIAL 2020-06-12 03:54:00 Cande Munoz [facility] POCT-GLUCOSE METER 2020-06-12 00:19:00 Dhiraj Mclaughlin [facility] TRANSFUSION SERVICE REPORT - SCAN 2020-06-11 18:01:33 Provid er, Default Scanning [facility] POCT-GLUCOSE METER 2020-06-11 17:31:00 Dhiraj Mclaughlin [facility] POCT-GLUCOSE METER 2020-06-11 11:14:00 Dhiraj Mclaughlin [facility] COMPREHENSIVE METABOLIC PANEL 2020-06-11 05:31:00 Edmond Allen [facility] C-REACTIVE PROTEIN 2020-06-11 05:31:00 Luis Allen [facility] LACTATE DEHYDROGENASE (LDH) 2020-06-11 05:31:00 Luis Allen [facility] POCT-GLUCOSE METER 2020-06-11 05:30:00 Dhiraj Mclaughlin [facility] PROCALCITONIN 2020-06-11 03:51:00 Luis Allen [facility] CBC W/PLT COUNT & AUTO DIFFERENTIAL 2020-06-11 03:51:00 Jh marquez [facility] FERRITIN 2020-06-11 03:50:00 Alejandro [facility] D-DIMER 2020-06-11 03:50:00 Luis Allen [facility] OCCULT BLOOD, STOOL 2020-06-11 00:15:00 Luis Allen [facility] POCT-GLUCOSE METER 2020-06-11 00:05:00 Dhiraj Mclaughlin [facility] PREPARE LEUKO-REDUCED RBC 2020-06-10 23:54:00 Luis Allen [facility] TRANSFUSION SERVICE REPORT - SCAN 2020-06-10 18:02:14 Provid er, Default Scanning [facility] POCT-GLUCOSE METER 2020-06-10 17:48:00 Dhiraj Mclaughlin [facility] SARS-COV2/RT-PCR ([facility]) 2020-06-10 13:58:00 Whit Patel [facility] URINE CULTURE 2020-06-10 13:31:00 Alejandro [facility] URINALYSIS W/ REFLEX URINE CULTURE 2020-06-10 13:31:00 Luis Allen [facility] POCT-GLUCOSE METER 2020-06-10 12:01:00 Dhiraj Mclaughlin [facility] XR CHEST 1 VIEW PORTABLE/BEDSIDE 2020-06-10 11:47:00 Alejandro [facility] POCT-GLUCOSE METER 2020-06-10 05:49:00 Dhiraj Mclaughlin [facility] BASIC METABOLIC PANEL (7) 2020-06-10 04:54:00 Cande Munoz [facility] PHOSPHORUS 2020-06-10 04:54:00 Shelley Glasgow [facility] MAGNESIUM 2020-06-10 04:54:00 Shelley Glasgow [facility] CBC W/PLT COUNT & AUTO DIFFERENTIAL 2020-06-10 04:54:00 Jh marquez [facility] POCT-GLUCOSE METER 2020-06-09 23:52:00 Dhiraj Mclaughlin [facility] TRANSFUSE LEUKO-REDUCED RED BLOOD CELLS 2020-06-09 18:35:17 Lius Allen [facility] POCT-GLUCOSE METER 2020-06-09 18:13:00 Dhiraj Mclaughlin [facility] POCT-GLUCOSE METER 2020-06-09 11:53:00 Dhiraj Mclaughlin [facility] TYPE AND SCREEN, AUTOMATED 2020-06-09 11:47:00 Alejandro [facility] BASIC METABOLIC PANEL (7) 2020-06-09 06:13:00 Cande Munoz [facility] POCT-GLUCOSE METER 2020-06-09 05:45:00 Dhiraj Mclaughlinilios C [facility] CBC W/PLT COUNT & AUTO DIFFERENTIAL 2020-06-09 04:55:00 Luis Kim [facility] POCT-GLUCOSE METER 2020-06-09 00:03:00 Dhiraj Mclaughlinilios C [facility] POCT-GLUCOSE METER 2020-06-08 17:33:00 Dhiraj Mclaughlinilios C [facility] POCT-GLUCOSE METER 2020-06-08 11:43:00 Dhiraj Mclaughlin Darren C [facility] POCT-GLUCOSE METER 2020-06-08 05:39:00 Dhiraj Mclaughlinilios C [facility] BASIC METABOLIC PANEL (7) 2020-06-08 04:07:00 Cande Munoz [facility] CBC W/PLT COUNT & AUTO DIFFERENTIAL 2020-06-08 04:07:00 Luis Kim [facility] POCT-GLUCOSE METER 2020-06-07 23:29:00 Dhiraj Mclaughlinilios C [facility] POCT-GLUCOSE METER 2020-06-07 18:03:00 Dhiraj Mclaughlinilios C [facility] XR ESOPH SWALLOW FUNCTION W/CINE VIDEO 2020-06-07 12:30:00 Dom Mane [facility] POCT-GLUCOSE METER 2020-06-07 11:42:00 Dhiraj Mclaughlinilios C [facility] POCT-GLUCOSE METER 2020-06-07 05:47:00 Dhiraj Mclaughlinilios C [facility] BASIC METABOLIC PANEL (7) 2020-06-07 04:44:00 Cande Munoz [facility] PHOSPHORUS 2020-06-07 04:44:00 Shelley Glasgow [facility] MAGNESIUM 2020-06-07 04:44:00 Shelley Glasgow [facility] CBC W/PLT COUNT & AUTO DIFFERENTIAL 2020-06-07 04:44:00 Luis Kimuro [facility] POCT-GLUCOSE METER 2020-06-07 00:01:00 Dhiraj Mclaughlin C [facility] POCT-GLUCOSE METER 2020-06-06 17:41:00 LetsoDhiraj bloomilios C [facility] POCT-GLUCOSE METER 2020-06-06 12:55:00 LetDhiraj angos C [facility] POCT-GLUCOSE METER 2020-06-06 05:57:00 LetsoDhiraj bloomilios C [facility] BASIC METABOLIC PANEL (7) 2020-06-06 04:15:00 Cande Munoz [facility] CBC W/PLT COUNT & AUTO DIFFERENTIAL 2020-06-06 04:15:00 Cande Munoz [facility] POCT-GLUCOSE METER 2020-06-05 23:30:00 Dhiraj Mclaughlinos C [facility] POCT-GLUCOSE METER 2020-06-05 18:24:00 Dhiraj Mclaughlinilios C [facility] POCT-GLUCOSE METER 2020-06-05 11:42:00 Dhiraj Mclaughlinilios C [facility] POCT-GLUCOSE METER 2020-06-05 05:29:00 Dhiraj Mclaughlinilios C [facility] CBC W/PLT COUNT & AUTO DIFFERENTIAL 2020-06-05 04:34:00 Cande Munoz [facility] BASIC METABOLIC PANEL (7) 2020-06-05 04:33:00 Cande Munoz [facility] POCT-GLUCOSE METER 2020-06-04 23:34:00 Dhiraj Mclaughlinos C [facility] POCT-GLUCOSE METER 2020-06-04 18:14:00 Dhiraj Mclaughlinilios C [facility] POCT-GLUCOSE METER 2020-06-04 11:32:00 Dhiraj Mclaughlinilios C [facility] BASIC METABOLIC PANEL (7) 2020-06-04 07:37:00 Cande Munoz [facility] PHOSPHORUS 2020-06-04 07:37:00 Shelley Glasgow [facility] MAGNESIUM 2020-06-04 07:37:00 Shelley Glasgow [facility] CBC W/PLT COUNT & AUTO DIFFERENTIAL 2020-06-04 07:37[facility] 2020-06-03 23:36:00 Dhiraj Mclaughlinos C [facility] POCT-GLUCOSE METER 2020-06-03 18:04:00 GabisoDhiraj bloomilios C [facility] SARS-COV2/RT-PCR ([facility]) 2020-06-03 13:51:00 Whit Patel [facility] POCT-GLUCOSE METER 2020-06-03 11:56:00 Dhiraj Mclaughlinos C [facility] BASIC METABOLIC PANEL (7) 2020-06-03 05:51:00 Cande Munoz [facility] CBC W/PLT COUNT & AUTO DIFFERENTIAL 2020-06-03 05:51:00 [facility] 2020-06-02 23:55:00 Dhiraj Mclaughlinilios C [facility] POCT-GLUCOSE METER 2020-06-02 18:28:00 Dhiraj Mclaughlinilios C [facility] POCT-GLUCOSE METER 2020-06-02 11:26:00 Dhiraj Mclaughlinilios C [facility] POCT-GLUCOSE METER 2020-06-02 05:23:00 GabisoDhiraj bloomilios C [facility] BASIC METABOLIC PANEL (7) 2020-06-02 04:26:00 Cande Munoz [facility] CBC W/PLT COUNT & AUTO DIFFERENTIAL 2020-06-02 04:26:00 Luis Kim [facility] POCT-GLUCOSE METER 2020-06-01 23:29:00 Dhiraj Mclaughlinos C [facility] TRANSFUSION SERVICE REPORT - SCAN 2020-06-01 18:03:23 Provid er, Default Scanning [facility] POCT-GLUCOSE METER 2020-06-01 11:58:00 Dhiraj Mclaughlin [facility] POCT-GLUCOSE METER 2020-06-01 06:08:00 Dhiraj Mclaughlin [facility] COMPREHENSIVE METABOLIC PANEL 2020-06-01 04:31:00 [facility] 2020-06-01 04:31:00 Alejandro [facility] C-REACTIVE PROTEIN 2020-06-01 04:31:00 Luis Allen [facility] FERRITIN 2020-06-01 04:31:00 Alejandro [facility] D-DIMER 2020-06-01 04:31:00 Alejandro [facility] FIBRINOGEN 2020-06-01 04:31:00 Alejandro [facility] PHOSPHORUS 2020-06-01 04:31:00 Shelley Glasgow [facility] MAGNESIUM 2020-06-01 04:31:00 Shelley Glasgow [facility] CBC W/PLT COUNT & AUTO DIFFERENTIAL 2020-06-01 04:31:00 Jh marquez [facility] POCT-GLUCOSE METER 2020-05-31 23:31:00 Dhiraj Mclaughlin [facility] POCT-GLUCOSE METER 2020-05-31 18:29:00 Dhiraj Mclaughlin [facility] POCT-GLUCOSE METER 2020-05-31 12:31:00 Dhiraj Mclaughlin [facility] POCT-GLUCOSE METER 2020-05-31 06:42:00 Dhiraj Mclaughlin [facility] BASIC METABOLIC PANEL (7) 2020-05-31 04:23:00 Cande Munoz [facility] PT/APTT 2020-05-31 04:23:00 Shelley Glasgow [facility] TYPE AND SCREEN, AUTOMATED 2020-05-31 04:23:00 Myah Shelley Ara [facility] CBC W/PLT COUNT & AUTO DIFFERENTIAL 2020-05-31 04:23[facility]/BEDSIDE 2020-05-31 01:30:00 CindydavidCaitlin ty Ara [facility] POCT-GLUCOSE METER 2020-05-30 23:40:00 LetsoDhiraj bloom Darren C [facility] POCT-GLUCOSE METER 2020-05-30 17:14:00 LetsouDhiraj Darren C [facility] BLOOD GAS, ARTERIAL 2020-05-30 13:21:00 Vamshi Magallon [facility] POCT-GLUCOSE METER 2020-05-30 11:48:00 LetsoDhiraj bloom Darren C [facility] POCT-GLUCOSE METER 2020-05-30 05:41:00 LetsoDhiraj bloom Darren C [facility] BASIC METABOLIC PANEL (7) 2020-05-30 03:35:00 Cande Munoz [facility] MAGNESIUM 2020-05-30 03:35:00 Myah Shelleymariae lena Bullock [facility] PHOSPHORUS 2020-05-30 03:35:00 Shelley Glasgow [facility] CBC W/PLT COUNT & AUTO DIFFERENTIAL 2020-05-30 03:35:00 Cande Munoz [facility] XR CHEST 1 VIEW PORTABLE/BEDSIDE 2020-05-30 01:24:00 Feliciano Zavala [facility] POCT-GLUCOSE METER 2020-05-30 01:14:00 LetsouDhiraj Darren C [facility] POCT-GLUCOSE METER 2020-05-29 17:08:00 Letsou Dhiraj Darren C [facility] POCT-GLUCOSE METER 2020-05-29 12:15:00 LetsouDhiraj Darren C [facility] 2D ECHO W/ DOPPLER (CW/PW/COLOR) 2020-05-29 11:28:37 Marissa Thompson [facility] POCT-GLUCOSE METER 2020-05-29 06:43:00 Dhiraj Mclaughlin [facility] BASIC METABOLIC PANEL (7) 2020-05-29 03:23:00 Cande Munoz [facility] PHOSPHORUS 2020-05-29 03:23:00 Shelley Glasgow [facility] MAGNESIUM 2020-05-29 03:23:00 Shelley Glasgow [facility] CBC W/PLT COUNT & AUTO DIFFERENTIAL 2020-05-29 03:23:00 Cande Munoz [facility] XR CHEST 1 VIEW PORTABLE/BEDSIDE 2020-05-29 00:10:00 Feliciano Zavala [facility] POCT-GLUCOSE METER 2020-05-28 23:51:00 Dhiraj Mclaughlin [facility] POCT-GLUCOSE METER 2020-05-28 17:18:00 Dhiraj Mclaughlin C [facility] CBC W/PLT COUNT & AUTO DIFFERENTIAL 2020-05-28 03:01:00 Cande Munoz [facility] BASIC METABOLIC PANEL (7) 2020-05-28 02:57:00 Cande Munoz [facility] XR CHEST 1 VIEW PORTABLE/BEDSIDE 2020-05-28 01:10:00 Feliciano Zavala [facility] POCT-GLUCOSE METER 2020-05-28 00:02:00 Dhiraj Mclaughlinilios C [facility] POCT-GLUCOSE METER 2020-05-27 17:23:00 Dhiraj Mclaughlinilios C [facility] POCT-GLUCOSE METER 2020-05-27 06:43:00 Dhiraj Mclaughlinilios C [facility] BASIC METABOLIC PANEL (7) 2020-05-27 05:07:00 Cande Munoz [facility] CBC W/PLT COUNT & AUTO DIFFERENTIAL 2020-05-27 05:07:00 Cande Munoz [facility] XR CHEST 1 VIEW PORTABLE/BEDSIDE 2020-05-27 01:30:00 Feliciano Zavala [facility] POCT-GLUCOSE METER 2020-05-27 00:11:00 Dhiraj Mclaughlin [facility] POCT-GLUCOSE METER 2020-05-26 17:46:00 Dhiraj Mclaughlin [facility] POCT-GLUCOSE METER 2020-05-26 11:58:00 Dhiraj Mclaughlin [facility] BASIC METABOLIC PANEL (7) 2020-05-26 05:22:00 Arnold Cande [facility] MAGNESIUM 2020-05-26 05:22:00 Hazel Whitten [facility] PHOSPHORUS 2020-05-26 05:22:00 Hazel Whitten [facility] POCT-GLUCOSE METER 2020-05-26 05:22:00 Dhiraj Mclaughlin [facility] CBC W/PLT COUNT & AUTO DIFFERENTIAL 2020-05-26 03:36:00 [facility] PORT[facility]/BEDSIDE 2020-05-26 02:37:00 Feliciano Zavala [facility] POCT-GLUCOSE METER 2020-05-26 00:13:00 Dhiraj Mclaughlin [facility] POCT-GLUCOSE METER 2020-05-25 17:54:00 Dhiraj Mclaughlin [facility] BASIC METABOLIC PANEL (7) 2020-05-25 15:50:00 Hazel Whitten [facility] MAGNESIUM 2020-05-25 15:50:00 Hazel Whitten [facility] PHOSPHORUS 2020-05-25 15:50:00 Hazel Whitten [facility] POCT-GLUCOSE METER 2020-05-25 11:58:00 Dhiraj Mclaughlin [facility] POCT-GLUCOSE METER 2020-05-25 06:01:00 Dhiraj Mclaughlin [facility] BASIC METABOLIC PANEL (7) 2020-05-25 04:09:00 Cande Munoz [facility] PHOSPHORUS 2020-05-25 04:09:00 Debbie Robison [facility] MAGNESIUM 2020-05-25 04:09:00 Ricki, Eleanor [facility] CBC W/PLT COUNT & AUTO DIFFERENTIAL 2020-05-25 04:09:[address] [facility] XR CHEST 1 VIEW PORTABLE/BEDSIDE 2020-05-25 01:38:00 Feliciano Zavala [facility] POCT-GLUCOSE METER 2020-05-24 23:35:00 Dhiraj Mclaughlin [facility] POCT-GLUCOSE METER 2020-05-24 18:39:00 Dhiraj Mclaughlin [facility] POCT-GLUCOSE METER 2020-05-24 12:44:00 Dhiraj Mclaughlin [facility] POCT-GLUCOSE METER 2020-05-24 06:05:00 Dhiraj Mclaughlin [facility] MAGNESIUM 2020-05-24 04:01:[address] [facility] BASIC METABOLIC PANEL (7) 2020-05-24 04:01:00 Aronld Cande [facility] PHOSPHORUS 2020-05-24 04:01:[address] [facility] CBC W/PLT COUNT & AUTO DIFFERENTIAL 2020-05-24 04:01:[address] [facility] XR CHEST 1 VIEW PORTABLE/BEDSIDE 2020-05-24 00:28:00 Feliciano Zavala [facility] POCT-GLUCOSE METER 2020-05-23 23:45:00 Dhiraj Mclaughlin C [facility] POCT-GLUCOSE METER 2020-05-23 17:05:00 Dhiraj Mclaughlin [facility] MAGNESIUM 2020-05-23 02:56:[address] [facility] BASIC METABOLIC PANEL (7) 2020-05-23 02:56:00 Arnold Cande [facility] PHOSPHORUS 2020-05-23 02:56:00 [facility] CBC W/PLT COUNT & AUTO DIFFERENTIAL 2020-05-23 02:56:00 [facility] XR CHEST 1 VIEW PORTABLE/BEDSIDE 2020-05-23 02:45:00 Feliciano Zavala [facility] POCT-GLUCOSE METER 2020-05-22 17:18:00 Dhiraj Mclaughlin [facility] POCT-GLUCOSE METER 2020-05-22 12:27:00 Dhiraj Mclaughlin [facility] CBC (HEMOGRAM ONLY) 2020-05-22 10:34:00 Fe Du [facility] APTT 2020-05-22 06:18:00 Pepito Thompson [facility] POCT-GLUCOSE METER 2020-05-22 06:17:00 Dhiraj Mclaughlin [facility] BASIC METABOLIC PANEL (7) 2020-05-22 03:49:00 Ankit Cortez [facility] CBC W/PLT COUNT & AUTO DIFFERENTIAL 2020-05-22 03:49:00 Keon Robison ame [facility] XR CHEST 1 VIEW PORTABLE/BEDSIDE 2020-05-22 03:00:00 Feliciano Zavala [facility] APTT 2020-05-21 23:58:00 Mofor, bettee [facility] POCT-GLUCOSE METER 2020-05-21 23:56:00 Dhiraj Mclaughlin [facility] APTT 2020-05-21 18:22:00 Lisbet Thompsonbettee [facility] POCT-GLUCOSE METER 2020-05-21 17:46:00 Dhiraj Mclaughlin [facility] POCT-GLUCOSE METER 2020-05-21 12:05:00 Dhiraj Mclaughlin [facility] APTT 2020-05-21 10:12:00 Donna Pepito Waters [facility] BLOOD GAS, ARTERIAL 2020-05-21 10:11:00 Murray Spicer [facility] POCT-GLUCOSE METER 2020-05-21 06:00:00 Dhiraj Mclaughlin [facility] BASIC METABOLIC PANEL (7) 2020-05-21 03:39:00 Ankit Cortez [facility] MAGNESIUM 2020-05-21 03:39:00 Murray Spicer [facility] PHOSPHORUS 2020-05-21 03:39:00 Murray Spicer [facility] APTT 2020-05-21 03:39:00 [facility] W/[facility]T [facility] & AUTO DIFFERENTIAL 2020-05-21 03:39:00 Keon Robison ame [facility] XR CHEST 1 VIEW PORTABLE/BEDSIDE 2020-05-21 00:51:00 Feliciano Zavala [facility] POCT-GLUCOSE METER 2020-05-20 23:41:00 Dhiraj Mclaughlin [facility] APTT 2020-05-20 20:49:00 [facility]ER 2020-05-20 18:34:00 Dhiraj Mclaughlin [facility] POCT-GLUCOSE METER 2020-05-20 12:00:00 Dhiraj Mclaughlin [facility] APTT 2020-05-20 11:42:00 Donna [facility] BASIC METABOLIC PANEL (7) 2020-05-20 03:30:00 Ankit Cortez [facility] APTT 2020-05-20 03:30:00 Fe Du CH I [facility] CBC W/PLT COUNT & AUTO DIFFERENTIAL 2020-05-20 03:30:00 Keon Robison ame Meet [facility] BLOOD GAS, ARTERIAL 2020-05-20 03:29:00 [facility]IEW PORTABLE/BEDSIDE 2020-05-20 00:26:00 Feliciano Zavala [facility] POCT-GLUCOSE METER 2020-05-20 00:21:00 Dhiraj Mclaughlin [facility] POTASSIUM 2020-05-19 20:01:[address] [facility] MAGNESIUM 2020-05-19 [facility] 20:01:00 Donna [facility] BLOOD GAS, ARTERIAL 2020-05-19 18:56:00 Arnold [facility] SPUTUM CULTURE + GRAM STAIN 2020-05-19 17:51:00 [facility] URINE CULTURE 2020-05-19 17:47:00 Donna [facility] URINALYSIS W/ REFLEX URINE CULTURE 2020-05-19 17:47:00 Lisbet Thompson [facility] ECG 12-LEAD 2020-05-19 16:32:16 Unknown, Hl7 Doctor [facility] ECG 12-LEAD 2020-05-19 16:29:28 Unknown, Hl7 Doctor [facility] POCT-GLUCOSE METER 2020-05-19 15:09:00 Dhiraj Mclaughlin [facility] TROPONIN I 2020-05-19 14:39:00 Donna [facility] 2D ECHO W/ DOPPLER (CW/PW/COLOR) 2020-05-19 10:48:19 Eduardo Du [facility] CBC (HEMOGRAM ONLY) 2020-05-19 10:02:00 Fe Du i [facility] APTT 2020-05-19 10:02:00 Fe Du [facility] XR ABDOMEN / KUB 1 VIEW 2020-05-19 09:53:00 Fe Du [facility] XR CHEST 1 VIEW PORTABLE/BEDSIDE 2020-05-19 09:53:00 Eduardo Du [facility] POCT-GLUCOSE METER 2020-05-19 06:35:00 Dhiraj Mclaughlin [facility] CBC W/PLT COUNT & AUTO DIFFERENTIAL 2020-05-19 03:40:00 Keon Robison ame [facility] PHOSPHORUS 2020-05-19 03:39:00 Debbie Robison [facility] BASIC METABOLIC PANEL (7) 2020-05-19 03:39:00 Ankit Cortez [facility] MAGNESIUM 2020-05-19 03:39:00 Murray Spicer [facility] BLOOD GAS, ARTERIAL 2020-05-19 03:39:00 Mofor[facility]ce [facility] TROPONIN I 2020-05-19 03:39:00 Fe Du [facility] XR CHEST 1 VIEW PORTABLE/BEDSIDE 2020-05-19 02:30:00 Feliciano Zavala [facility] POCT-GLUCOSE METER 2020-05-18 23:14:00 Dhiraj Mclaughlin [facility] POCT-GLUCOSE METER 2020-05-18 17:50:00 Dhiraj Mclaughlin [facility] BASIC METABOLIC PANEL (7) 2020-05-18 17:41:00 Mofor, Loyce Tiome la [facility] BLOOD GAS, ARTERIAL 2020-05-18 12:42:00 Mofor, Loyce Tiomela [facility] BASIC METABOLIC PANEL (7) 2020-05-18 12:14:00 Pepito Thompson [facility] POCT-GLUCOSE METER 2020-05-18 12:07:00 Dhiraj Mclauhglin [facility] POCT-GLUCOSE METER 2020-05-18 05:58:00 Dhiraj Mclaughlin [facility] BLOOD GAS, ARTERIAL 2020-05-18 04:25:00 Pepito Thompson [facility] BASIC METABOLIC PANEL (7) 2020-05-18 04:24:00 Pepito Thompson [facility] MAGNESIUM 2020-05-18 04:24:00 Debbie Robison [facility] CBC W/PLT COUNT & AUTO DIFFERENTIAL 2020-05-18 04:24:00 Keon Robison ame [facility] XR CHEST 1 VIEW PORTABLE/BEDSIDE 2020-05-18 00:49:00 Feliciano Zavala [facility] BASIC METABOLIC PANEL (7) 2020-05-18 00:03:00 Pepito Thompson [facility] BLOOD GAS, ARTERIAL 2020-05-18 00:03:00 [facility] 2020-05-18 00:03:00 Debbie Robison [facility] POCT-GLUCOSE METER 2020-05-18 00:01:00 Dhiraj Mclaughlin [facility] BLOOD GAS, ARTERIAL 2020-05-17 18:16:00 Pepito Thompson [facility] XR CHEST 1 VIEW PORTABLE/BEDSIDE 2020-05-17 17:37:00 Marissa Thompson [facility] BASIC METABOLIC PANEL (7) 2020-05-17 17:12:00 Pepito Thompson [facility] BLOOD GAS, ARTERIAL 2020-05-17 17:12:00 Mofor, [facility] BLOOD GAS, ARTERIAL 2020-05-17 16:28:00 Donna [facility] EEG AWAKE/ASLEEP AND SLEEP 2020-05-17 13:32:00 Pepito Thompson [facility] CT BRAIN WITHOUT IV CONTRAST 2020-05-17 12:08:00 TonevaLucina Dimitrova [facility] BLOOD GAS, ARTERIAL 2020-05-17 11:10:00 [facility] CBC W/PLT COUNT & AUTO DIFFERENTIAL 2020-05-17 11:10:00 [facility] 12-LEAD 2020-05-17 10:17:35 Unknown, Hl7 Doctor [facility] ECG 12-LEAD 2020-05-17 10:16:52 [facility] PT/APTT 2020-05-17 09:30:00 [facility] BASIC METABOLIC PANEL (7) 2020-05-17 09:30:00 [facility] RRL CRITICAL LABS (ABG,NA,K,H&H,GLUCOSE) 2020-05-17 09:30:00 [facility] CALCIUM, IONIZED 2020-05-17 09:30:00 [facility] MAGNESIUM 2020-05-17 09:30:00 [facility] PHOSPHORUS 2020-05-17 09:30:00 [facility] SODIUM NA-STAT LAB 2020-05-17 09:30:00 [facility] POTASSIUM-STAT LAB 2020-05-17 09:30:00 [facility] GLUCOSE-STAT LAB 2020-05-17 09:30:00 [facility] HGB/HCT (H&H) - STAT LAB 2020-05-17 09:30:00 Pepito Thompson [facility] TROPONIN I 2020-05-17 09:30:00 Fe Du [facility] XR CHEST 1 VIEW PORTABLE/BEDSIDE 2020-05-17 09:19:00 Marissa Thompson [facility] POCT-GLUCOSE METER 2020-05-17 08:49:00 Dhiraj Mclaughlin [facility] POCT-GLUCOSE METER 2020-05-17 05:46:00 Dhiraj Mclaughlin [facility] CBC W/PLT COUNT & AUTO DIFFERENTIAL 2020-05-17 03:13:00 Keon Robison ame [facility] BASIC METABOLIC PANEL (7) 2020-05-17 03:11:00 Ankit Cortez [facility] MAGNESIUM 2020-05-17 03:11:00 Murray Spicer [facility] PHOSPHORUS 2020-05-17 03:11:00 Murray Spicer [facility] APTT 2020-05-17 03:11:00 Fe Du [facility] XR CHEST 1 VIEW PORTABLE/BEDSIDE 2020-05-17 02:33:00 Feliciano Zavala [facility] POCT-GLUCOSE METER 2020-05-17 00:14:00 Dhiraj Mclaughlin [facility] PT/APTT 2020-05-16 20:00:00 Dhiraj Mclaughlin [facility] POCT-GLUCOSE METER 2020-05-16 18:02:00 Dhiraj Mclaughlin [facility] CBC (HEMOGRAM ONLY) 2020-05-16 13:56:00 Pepito Thompson [facility] APTT 2020-05-16 13:55:00 Pepito Thompsonomela [facility] POCT-GLUCOSE METER 2020-05-16 12:29:00 Dhiraj Mclaughlin [facility] BASIC METABOLIC PANEL (7) 2020-05-16 05:08:[address] [facility] CBC W/PLT COUNT & AUTO DIFFERENTIAL 2020-05-16 05:08:00 Keon Robison ame [facility] XR CHEST 1 VIEW PORTABLE/BEDSIDE 2020-05-16 03:00:00 Feliciano Zavala [facility] POCT-GLUCOSE METER 2020-05-15 21:53:00 Dhiraj Mclaughlin [facility] POCT-GLUCOSE METER 2020-05-15 18:22:00 Dhiraj Mclaughlin [facility] TRANSFUSION SERVICE REPORT - SCAN 2020-05-15 18:01:27 Provid er, Default Scanning [facility] XR CHEST 1 VIEW PORTABLE/BEDSIDE 2020-05-15 17:13:00 Eduardo Du [facility] CBC W/PLT COUNT & AUTO DIFFERENTIAL 2020-05-15 15:59:00 Fe Espino [facility] POCT-GLUCOSE METER 2020-05-15 12:17:00 Dhiraj Mclaughlin [facility] BASIC METABOLIC PANEL (7) 2020-05-15 04:28:00 Ankit Cortez [facility] MAGNESIUM 2020-05-15 04:28:00 Murray Spicer [facility] PHOSPHORUS 2020-05-15 04:28:00 Murray Spicer r [facility] CBC W/PLT COUNT & AUTO DIFFERENTIAL 2020-05-15 04:28:00 Keon Robison ame [facility] XR CHEST 1 VIEW PORTABLE/BEDSIDE 2020-05-15 01:59:00 Feliciano Zavala [facility] POCT-GLUCOSE METER 2020-05-15 00:15:00 Dhiraj Mclaughlin [facility] PREPARE LEUKO-REDUCED RBC 2020-05-14 23:54:00 Loyda Marie [facility] POCT-GLUCOSE METER 2020-05-14 21:47:00 Dhiraj Mclaughlin [facility] POCT-GLUCOSE METER 2020-05-14 18:12:00 Dhiraj Mclaughlin [facility] TRANSFUSION SERVICE REPORT - SCAN 2020-05-14 18:01:26 Provid er, Default Scanning [facility] POCT-GLUCOSE METER 2020-05-14 12:35:00 Dhiraj Mclaughlin [facility] CBC W/PLT COUNT & AUTO DIFFERENTIAL 2020-05-14 07:53:00 Keon Robison ame [facility] BASIC METABOLIC PANEL (7) 2020-05-14 03:58:00 Ankit Cortez [facility] XR CHEST 1 VIEW PORTABLE/BEDSIDE 2020-05-14 03:15:00 Aixa Cortez [facility] POCT-GLUCOSE METER 2020-05-14 00:18:00 Dhiraj Mclaughlin [facility] TRANSFUSION SERVICE REPORT - SCAN 2020-05-13 18:01:50 Provid er, Default Scanning [facility] POCT-GLUCOSE METER 2020-05-13 17:18:00 Dhiraj Mclaughlin [facility] POCT-GLUCOSE METER 2020-05-13 11:09:00 Dhiraj Mclaughlin [facility] TRANSFUSE LEUKO-REDUCED RED BLOOD CELLS 2020-05-13 11:03:02 Loyda Marie [facility] HEMOGLOBIN AND HEMATOCRIT 2020-05-13 11:03:00 Melvin Spicer [facility] XR CHEST 1 VIEW PORTABLE/BEDSIDE 2020-05-13 08:25:00 Murray Spicer [facility] TYPE AND SCREEN, AUTOMATED 2020-05-13 06:12:00 Loyda Marie [facility] PREPARE LEUKO-REDUCED RBC 2020-05-13 05:54:00 Tia Keith [facility] BASIC METABOLIC PANEL (7) 2020-05-13 03:43:00 Ankit Cortez [facility] MAGNESIUM 2020-05-13 03:43:00 Murray Spicer [facility] PHOSPHORUS 2020-05-13 03:43:00 Murray Spicer [facility] CBC W/PLT COUNT & AUTO DIFFERENTIAL 2020-05-13 03:43:00 Murray Leong [facility] POCT-GLUCOSE METER 2020-05-13 03:42:00 Dhiraj Mclaughlin [facility] POCT-GLUCOSE METER 2020-05-13 00:32:00 Dhiraj Mclaughlin [facility] PREPARE LEUKO-REDUCED RBC 2020-05-12 23:54:00 Cande Muonz I [facility] POCT-GLUCOSE METER 2020-05-12 20:14:00 Dhiraj Mclaughlin [facility] TRANSFUSION SERVICE REPORT - SCAN 2020-05-12 18:02:14 Provid er, Default Scanning [facility] POCT-GLUCOSE METER 2020-05-12 09:45:00 Dhiraj Mclaughlin [facility] POCT-GLUCOSE METER 2020-05-12 06:50:00 Dhiraj Mclaughlin [facility] CBC (HEMOGRAM ONLY) 2020-05-12 06:46:00 Darrian Zavala [facility] XR CHEST 1 VIEW PORTABLE/BEDSIDE 2020-05-12 04:10:00 Feliciano Zavala [facility] BLOOD GAS, ARTERIAL 2020-05-12 03:30:00 Tia Keith [facility] BASIC METABOLIC PANEL (7) 2020-05-12 03:27:00 Ankit Cortez [facility] POCT-GLUCOSE METER 2020-05-12 00:50:00 Dhiraj Mclaughlin [facility] PREPARE LEUKO-REDUCED RBC 2020-05-11 23:54:00 Cande Munoz CH I [facility] BLOOD GAS, ARTERIAL 2020-05-11 21:51:00 Tia Keith [facility] EVACUATION,HEMATOMA 2020-05-11 21:10:00 Jeramie Sin [facility] XR CHEST 1 VIEW PORTABLE/BEDSIDE 2020-05-11 19:55:00 [facility] (HEMO[facility] ONLY) 2020-05-11 18:15:00 Tia Keith [facility] BASIC METABOLIC PANEL (7) 2020-05-11 18:15:00 Tia Keith [facility] MAGNESIUM 2020-05-11 18:15:00 Sagar [facility] PROTHROMBIN TIME/INR 2020-05-11 18:15:00 Rufina Keithirasema [facility] APTT 2020-05-11 18:15:00 Tia Keith [facility] PHOSPHORUS 2020-05-11 18:15:00 Sagar [facility] ED TRANSFUSION SERVICE REPORT - SCAN 2020-05-11 18:02:19 Provid er, Default Scanning [facility] PROTHROMBIN TIME/INR 2020-05-11 15:07:00 Sagar [facility] APTT 2020-05-11 15:07:00 Sagar [facility] CBC (HEMOGRAM ONLY) 2020-05-11 15:07:00 Tia Keith [facility] IR EMBOLIZATION BLEED 2020-05-11 14:29:00 Dhiraj Mclaughlin [facility] IR IVC FILTER PLACEMENT 2020-05-11 14:29:00 Dhiraj Mclaughlin ios [facility] CTA CHEST 2020-05-11 11:24:00 Murray Spicer [facility] TRANSFUSE LEUKO-REDUCED RED BLOOD CELLS 2020-05-11 10:04:45 [place] ho [facility] SARS-COV2/RT-PCR ([facility] RE[facility]) 2020-05-11 09:23:00 Jj Zavala [facility] HEMOGLOBIN AND HEMATOCRIT 2020-05-11 08:26:00 Melvin Spicer [facility] TRANSFUSE LEUKO-REDUCED RED BLOOD CELLS 2020-05-11 06:42:24 [place] ho [facility] CT CHEST WITH IV CONTRAST 2020-05-11 06:21:00 Arnold [facility] PT/APTT 2020-05-11 04:53:[address] [facility] FIBRINOGEN 2020-05-11 04:53:[address] [facility] THROMBOELASTOGRAPH (TEG) 2020-05-11 04:50:[address] [facility] VORICONAZOLE LEVEL 2020-05-11 03:49:00 Stefanie Avalos [facility] BASIC METABOLIC PANEL (7) 2020-05-11 03:49:00 Ankit Cortez [facility] MAGNESIUM 2020-05-11 03:49:00 Murray Spicer [facility] PHOSPHORUS 2020-05-11 03:49:00 Murray Spicer [facility] CBC W/PLT COUNT & AUTO DIFFERENTIAL 2020-05-11 03:49:00 Murray Leong [facility] XR CHEST 1 VIEW PORTABLE/BEDSIDE 2020-05-11 01:33:00 Aixa Cortez [facility] POCT-GLUCOSE METER 2020-05-11 00:31:00 Dhiraj Mclaughlin [facility] PREPARE LEUKO-REDUCED RBC 2020-05-10 23:54:00 Arnold Cande [facility] POCT-GLUCOSE METER 2020-05-10 18:16:00 Dhiraj Mclaughlin [facility] TRANSFUSION SERVICE REPORT - SCAN 2020-05-10 18:02:02 Provid er, Default Scanning [facility] BASIC METABOLIC PANEL (7) 2020-05-10 04:33:00 Ankit Cortez [facility] IRON, SERUM 2020-05-10 04:33:[address] [facility] FERRITIN 2020-05-10 04:33:[address] [facility] VITAMIN B12 AND FOLATE 2020-05-10 04:33:00 Arnold [facility] RETICULOCYTE COUNT 2020-05-10 04:33:00 Arnold [facility] PERIPHERAL BLOOD SMEAR - PATHOLOGIST REVIEW 2020-05-10 04:33:[address] [facility] CBC W/PLT+MANUAL DIFF 2020-05-10 04:33:00 Kori Bhatia enfrancoise [facility] CBC WITH PLATELET COUNT + MANUAL DIFF 2020-05-10 04:33:00 Kori Hayes [facility] (MANUAL DIFFERENTIAL) 2020-05-10 04:33:00 Kori Bhatia enfrancoise [facility] TRANSFUSE LEUKO-REDUCED RED BLOOD CELLS 2020-05-10 03:44:02 [place] ho [facility] XR CHEST 1 VIEW PORTABLE/BEDSIDE 2020-05-10 02:18:00 Aixa Cortez [facility] CBC W/PLT COUNT & AUTO DIFFERENTIAL 2020-05-09 20:15:[address] [facility] POCT-GLUCOSE METER 2020-05-09 18:29:00 Dhiraj Mclaughlin [facility] TRANSFUSE LEUKO-REDUCED RED BLOOD CELLS 2020-05-09 11:17:57 [place] ho, [facility] IRON, TIBC, % SAT. (WITHOUT FERRITIN) 2020-05-09 10:15:00 Murray Arzola [facility] TRANSFUSE LEUKO-REDUCED RED BLOOD CELLS 2020-05-09 09:59:20 [place] ho, [facility] TYPE AND SCREEN, AUTOMATED 2020-05-09 04:58:00 Cande Munoz [facility] CBC W/PLT COUNT & AUTO DIFFERENTIAL 2020-05-09 04:58:[address] [facility] BASIC METABOLIC PANEL (7) 2020-05-09 04:20:00 Ankit Cortez [facility] MAGNESIUM 2020-05-09 04:20:00 Ankit Cortez [facility] PHOSPHORUS 2020-05-09 04:20:00 Ankit Cortez [facility] CBC W/PLT COUNT & AUTO DIFFERENTIAL 2020-05-09 04:20:00 Ankit Cortez [facility] XR CHEST 1 VIEW PORTABLE/BEDSIDE 2020-05-09 01:21[facility] 2020-05-08 21:47:00 Dhiraj Mclaughlinos C [facility] POCT-GLUCOSE METER 2020-05-08 17:53:00 Dhiraj Mclaughlinilios C [facility] POCT-GLUCOSE METER 2020-05-08 12:13:00 LetsouDhirajilios C [facility] BASIC METABOLIC PANEL (7) 2020-05-08 03:18:00 Ankit Cortez [facility] MAGNESIUM 2020-05-08 03:18:00 Ankit Cortez [facility] PHOSPHORUS 2020-05-08 03:18:00 Ankit Cortez [facility] CBC W/PLT COUNT & AUTO DIFFERENTIAL 2020-05-08 03:18:00 Ankit Cortez [facility] XR CHEST 1 VIEW PORTABLE/BEDSIDE 2020-05-08 00:44:00 Feliciano Zavala [facility] POCT-GLUCOSE METER 2020-05-07 18:34:00 Dhiraj Mclaughlin C [facility] POCT-GLUCOSE METER 2020-05-07 13:30:00 Dhiraj Mclaughlin C [facility] XR CHEST 1 VIEW PORTABLE/BEDSIDE 2020-05-07 11:12:00 OlutEduardo fox Olutbrittni [facility] BASIC METABOLIC PANEL (7) 2020-05-07 03:50:00 Ankit Cortez [facility] MAGNESIUM 2020-05-07 03:50:00 Ankit Cortez [facility] PHOSPHORUS 2020-05-07 03:50:00 Ankit Cortez [facility] CBC W/PLT COUNT & AUTO DIFFERENTIAL 2020-05-07 03:50:00 Ankit Cortez [facility] XR CHEST 1 VIEW PORTABLE/BEDSIDE 2020-05-07 01:38:00 Feliciano Zavala [facility] ASPERGILLUS GALACTOMANNAN ANTIGEN 2020-05-07 00:15:00 Suzie Avalos [facility] POCT-GLUCOSE METER 2020-05-07 00:01:00 Dhiraj Mclaughlin C [facility] POCT-GLUCOSE METER 2020-05-06 20:08:00 Dhiraj Mclaughlinilios C [facility] POCT-GLUCOSE METER 2020-05-06 18:45:00 LetsouDhirajilios C [facility] POCT-GLUCOSE METER 2020-05-06 14:16:00 Dhiraj Mclaughlinilios C [facility] BASIC METABOLIC PANEL (7) 2020-05-06 03:06:00 Ankit Cortez [facility] MAGNESIUM 2020-05-06 03:06:00 Ankit Cortez [facility] PHOSPHORUS 2020-05-06 03:06:00 Ankit Cortez [facility] CBC W/PLT COUNT & AUTO DIFFERENTIAL 2020-05-06 03:06:00 Ankit Cortez [facility] XR CHEST 1 VIEW PORTABLE/BEDSIDE 2020-05-06 01:03:00 Feliciano Zavala [facility] CT CHEST WITHOUT IV CONTRAST 2020-05-06 00:45:00 Arnold Cande [facility] POCT-GLUCOSE METER 2020-05-05 23:06:00 Dhiraj Mclaughlinilios C [facility] POCT-GLUCOSE METER 2020-05-05 18:22:00 Dhiraj Mclaughlinilios C [facility] POCT-GLUCOSE METER 2020-05-05 14:34:00 Dhiraj Mclaughlinilios C [facility] POCT-GLUCOSE METER 2020-05-05 05:30:00 Dhiraj Mclaughlinos C [facility] BASIC METABOLIC PANEL (7) 2020-05-05 03:11:00 Ankit Cortez [facility] MAGNESIUM 2020-05-05 03:11:00 Ankit Cortez [facility] PHOSPHORUS 2020-05-05 03:11:00 Ankit Cortez Homar [facility] HEPATIC FUNCTION PANEL 2020-05-05 03:11:00 Cande Munoz [facility] CBC W/PLT COUNT & AUTO DIFFERENTIAL 2020-05-05 03:11:00 Ankit Cortez [facility] POCT-GLUCOSE METER 2020-05-05 00:57:00 LetDhiraj angilios C [facility] XR CHEST 1 VIEW PORTABLE/BEDSIDE 2020-05-05 00:53:00 Aixa Cortez [facility] POCT-GLUCOSE METER 2020-05-04 21:17:00 Dhiraj Mclaughlinilios C [facility] POCT-GLUCOSE METER 2020-05-04 18:37:00 LetsoDhiraj bloom [facility] TRANSFUSION SERVICE REPORT - SCAN 2020-05-04 17:51:42 Provid er, Default Scanning [facility] POCT-GLUCOSE METER 2020-05-04 12:27:00 Dhiraj Mclaughlin [facility] VANCOMYCIN LEVEL, TROUGH 2020-05-04 12:21:00 Galina Lugo [facility] POCT-GLUCOSE METER 2020-05-04 06:17:00 Dhiraj Mclaughlin [facility] BASIC METABOLIC PANEL (7) 2020-05-04 03:51:00 Ankit Cortez [facility] MAGNESIUM 2020-05-04 03:51:00 Ankit Cortez [facility] PHOSPHORUS 2020-05-04 03:51:00 Ankit Cortez [facility] CBC W/PLT COUNT & AUTO DIFFERENTIAL 2020-05-04 03:51:00 Ankit Cortez [facility] XR CHEST 1 VIEW PORTABLE/BEDSIDE 2020-05-04 01:24:00 Aixa Cortez [facility] POCT-GLUCOSE METER 2020-05-04 00:12:00 Dhiraj Mclaughlin [facility] PREPARE LEUKO-REDUCED RBC 2020-05-03 23:54:00 Cande Munoz CH I [facility] BLOOD CULTURE, ROUTINE ISOLATOR 2020-05-03 20:43:00 Deidra Avalos [facility] MISCELLANEOUS LAB ORDER 2020-05-03 20:43:00 Stefanie Avalos [facility] ASPERGILLUS GALACTOMANNAN ANTIGEN 2020-05-03 20:43:00 Suzie Avalos [facility] POCT-GLUCOSE METER 2020-05-03 18:25:00 Dhiraj Mclaughlin [facility] TRANSFUSION SERVICE REPORT - SCAN 2020-05-03 18:11:45 Provid er, Default Scanning [facility] POCT-GLUCOSE METER 2020-05-03 12:53:00 Dhiraj Mclaughlin [facility] BASIC METABOLIC PANEL (7) 2020-05-03 03:40:00 Ankit Cortez [facility] MAGNESIUM 2020-05-03 03:40:00 Ankit Cortez [facility] PHOSPHORUS 2020-05-03 03:40:00 Ankit Cortez [facility] CBC W/PLT COUNT & AUTO DIFFERENTIAL 2020-05-03 03:40:00 Ankit Cortez Homar [facility] XR CHEST 1 VIEW PORTABLE/BEDSIDE 2020-05-03 02:08:00 Aixa Cortez [facility] POCT-GLUCOSE METER 2020-05-02 22:43:00 Dhiraj Mclaughlin [facility] VANCOMYCIN LEVEL, TROUGH 2020-05-02 20:31:00 Galina Lugo [facility] POCT-GLUCOSE METER 2020-05-02 18:02:00 Dhiraj Mclaughlin [facility] POCT-GLUCOSE METER 2020-05-02 13:39:00 Dhiraj Mclaughlin [facility] TRANSFUSE LEUKO-REDUCED RED BLOOD CELLS 2020-05-02 11:33:20 [place] ho [facility] APTT 2020-05-02 08:08:00 Fe Du CH I [facility] BLOOD GAS, ARTERIAL 2020-05-02 07:57:00 Dhiraj Mclaughlin [facility] ABORH, MANUAL 2020-05-02 06:02:00 Cande Munoz [facility] BASIC METABOLIC PANEL (7) 2020-05-02 04:49:00 Ankit Cortez [facility] MAGNESIUM 2020-05-02 04:49:00 Ankit Cortez [facility] PHOSPHORUS 2020-05-02 04:49:00 Ankit Cortez Homar [facility] BLOOD GAS, ARTERIAL 2020-05-02 04:49:00 Ankit Cortez [facility] CBC W/PLT COUNT & AUTO DIFFERENTIAL 2020-05-02 04:49:00 Ankit Cortez [facility] XR CHEST 1 VIEW PORTABLE/BEDSIDE 2020-05-02 01:07:00 Aixa Cortez [facility] POCT-GLUCOSE METER 2020-05-02 00:24:00 Dhiraj Mclaughlin [facility] APTT 2020-05-02 00:19:00 Fe Du Olutoni [facility] APTT 2020-05-01 17:57:00 Robin Duinkaixa Olutoni [facility] TRANSFUSION SERVICE REPORT - SCAN 2020-05-01 17:51:14 Provid er, Default Scanning [facility] POCT-GLUCOSE METER 2020-05-01 17:22:00 Dhiraj Mclaughlin [facility] POCT-GLUCOSE METER 2020-05-01 15:20:00 Dhiraj Mclaughlin [facility] APTT 2020-05-01 12:18:00 Robin Duinka Olutoni [facility] POCT-GLUCOSE METER 2020-05-01 06:10:00 Dhiraj Mclaughlin [facility] APTT 2020-05-01 05:50:00 Fe Duutoni [facility] [facility] BASIC METABOLIC PANEL (7) 2020-05-01 03:09:00 Ankit Cortez [facility] MAGNESIUM 2020-05-01 03:09:00 Ankit Cortez [facility] PHOSPHORUS 2020-05-01 03:09:00 Ankit Cortez [facility] BLOOD GAS, ARTERIAL 2020-05-01 03:09:00 Ankit Cortez [facility] CBC W/PLT COUNT & AUTO DIFFERENTIAL 2020-05-01 03:09:00 Ankit Cortez [facility] XR CHEST 1 VIEW PORTABLE/BEDSIDE 2020-05-01 03:06:00 Do Lucasu john Crow [facility] POCT-GLUCOSE METER 2020-05-01 00:01:00 Dhiraj Mclaughlin [facility] APTT 2020-04-30 22:43:00 OlutRobin foxinka Olutoni [facility] TRANSFUSION SERVICE REPORT - SCAN 2020-04-30 17:50:51 Provid er, Default Scanning [facility] POCT-GLUCOSE METER 2020-04-30 17:40:00 Dhiraj Mclaughlin [facility] POTASSIUM 2020-04-30 16:55:00 Murray Spicer [facility] APTT 2020-04-30 16:55:00 EduardoutEduardo fxouyinka Olutoni [facility] SPUTUM CULTURE + GRAM STAIN 2020-04-30 15:47:00 Loyda Marie [facility] POCT-GLUCOSE METER 2020-04-30 11:52:00 Dhiraj Mclaughlin [facility] APTT 2020-04-30 10:24:00 Olutoydevang Oluyinka Olutoni [facility] BLOOD CULTURE 2020-04-30 08:00:00 Loyda Marie [facility] URINALYSIS W/ REFLEX URINE CULTURE 2020-04-30 08:00:00 Alex Marie [facility] POCT-GLUCOSE METER 2020-04-30 06:00:00 Dhiraj Mclaughlin [facility] BLOOD GAS, ARTERIAL 2020-04-30 03:12:00 Ankit Cortez [facility] APTT 2020-04-30 03:10:00 EduardoutoyEduardo leonuyinka Olutoni [facility] I [facility] BASIC METABOLIC PANEL (7) 2020-04-30 03:05:00 Ankit Cortez [facility] MAGNESIUM 2020-04-30 03:05:00 Ankit Cortez Homar [facility] PHOSPHORUS 2020-04-30 03:05:00 Ankit Cortez [facility] CBC W/PLT COUNT & AUTO DIFFERENTIAL 2020-04-30 03:05:00 Ankit Cortez [facility] XR CHEST 1 VIEW PORTABLE/BEDSIDE 2020-04-30 02:59:00 [facility]KO-REDUCED RBC 2020-04-30 01:03:00 Fe Du [facility] POCT-GLUCOSE METER 2020-04-30 00:14:00 Dhiraj Mclaughlin [facility] PREPARE LEUKO-REDUCED RBC 2020-04-29 23:54:00 Cande Munoz [facility] APTT 2020-04-29 19:23:00 Fe Du [facility] POTASSIUM 2020-04-29 19:19:00 Loyda Marie [facility] XR CHEST 1 VIEW PORTABLE/BEDSIDE 2020-04-29 18:10:00 Murray Spicer [facility] TRANSFUSION SERVICE REPORT - SCAN 2020-04-29 17:51:57 Provid er, Default Scanning [facility] POCT-GLUCOSE METER 2020-04-29 17:28:00 Dhiraj Mclaughlin [facility] POTASSIUM 2020-04-29 15:13:00 Murray Spicer [facility] POCT-GLUCOSE METER 2020-04-29 15:12:00 Dhiraj Mclaughlin [facility] POTASSIUM 2020-04-29 13:01:00 Murray Spicer [facility] POCT-GLUCOSE METER 2020-04-29 12:23:00 Dhiraj Mclaughlin [facility] XR CHEST 1 VIEW PORTABLE/BEDSIDE 2020-04-29 11:15:00 Feliciano Zavala [facility] APTT 2020-04-29 09:29:00 Fe Du Olutoni [facility] I [facility] POTASSIUM 2020-04-29 08:06:00 [facility] 2020-04-29 08:06:00 Loyda Marie [facility] POCT-GLUCOSE METER 2020-04-29 06:46:00 Dhiraj Mclaughlin [facility] APTT 2020-04-29 05:25:00 Fe Duutoni [facility] XR CHEST 1 VIEW PORTABLE/BEDSIDE 2020-04-29 04:10:00 Feliciano Zavala [facility] BLOOD GAS, ARTERIAL 2020-04-29 03:23:00 Ankit Cortez [facility] BASIC METABOLIC PANEL (7) 2020-04-29 03:22:00 Ankit Cortez [facility] MAGNESIUM 2020-04-29 03:22:00 Ankit Cortez [facility] PHOSPHORUS 2020-04-29 03:22:00 Ankit Cortez [facility] CBC W/PLT COUNT & AUTO DIFFERENTIAL 2020-04-29 03:22:00 Ankit Cortez [facility] POCT-GLUCOSE METER 2020-04-29 01:31:00 Dhiraj Mclaughlin [facility] APTT 2020-04-28 22:01:00 Fe Duutoni CH I [facility] POCT-GLUCOSE METER 2020-04-28 20:28:00 Dhiraj Mclaughlin [facility] POCT-GLUCOSE METER 2020-04-28 18:54:00 Dhiraj Mclaughlin [facility] TRANSFUSE LEUKO-REDUCED RED BLOOD CELLS 2020-04-28 18:37:27 Cande Keenan [facility] TRANSFUSION SERVICE REPORT - SCAN 2020-04-28 17:52:28 Provid er, Default Scanning [facility] APTT 2020-04-28 12:53:00 Fe Du [facility] HEMOGLOBIN AND HEMATOCRIT 2020-04-28 12:53:00 Dhiraj Mclaughlin [facility] XR CHEST 1 VIEW PORTABLE/BEDSIDE 2020-04-28 09:17:00 Feliciano Zavala [facility] POCT-GLUCOSE METER 2020-04-28 09:00:00 Dhiraj Mclaughlin [facility] BLOOD GAS, ARTERIAL 2020-04-28 08:48:00 Fe Du [facility] POCT-GLUCOSE METER 2020-04-28 06:12:00 Dhiraj Mclaughlin [facility] POTASSIUM 2020-04-28 06:07:00 Cande Munoz [facility] HEMOGLOBIN AND HEMATOCRIT 2020-04-28 06:07:00 Cande Munoz [facility] XR CHEST 1 VIEW PORTABLE/BEDSIDE 2020-04-28 04:06:00 Aixa Cortez [facility] BLOOD GAS, ARTERIAL 2020-04-28 03:16:00 Ankit Cortez [facility] CBC W/PLT COUNT & AUTO DIFFERENTIAL 2020-04-28 03:16:00 Ankit Cortez [facility] BASIC METABOLIC PANEL (7) 2020-04-28 03:15:00 Ankit Cortez [facility] MAGNESIUM 2020-04-28 03:15:00 Ankit Cortez [facility] PHOSPHORUS 2020-04-28 03:15:00 Ankit Cortez [facility] APTT 2020-04-28 03:15:00 Fe Du [facility] POCT-GLUCOSE METER 2020-04-28 00:12:00 Dhiraj Mclaughlin [facility] PREPARE LEUKO-REDUCED RBC 2020-04-27 23:54:00 Cande Munoz [facility] I [facility] APTT 2020-04-27 21:12:00 Fe Duutoni [facility] TRANSFUSION SERVICE REPORT - SCAN 2020-04-27 17:52:07 Provid er, Default Scanning [facility] POCT-GLUCOSE METER 2020-04-27 17:19:00 Dhiraj Mclaughlin [facility] CBC W/PLT COUNT & AUTO DIFFERENTIAL 2020-04-27 16:40:00 Kelechi Espinoa Eduardoutoni [facility] APTT 2020-04-27 14:11:00 Fe Duutoni [facility] POCT-GLUCOSE METER 2020-04-27 11:33:00 Dhiraj Mclaughlin [facility] BLOOD GAS, ARTERIAL 2020-04-27 08:28:00 EduardoutEduardo foxuyinka Oluton i [facility] POCT-GLUCOSE METER 2020-04-27 08:22:00 Dhiraj Mclaughlin [facility] APTT 2020-04-27 08:15:00 EduardoutKelechi foxa Eduardoutoni [facility] BASIC METABOLIC PANEL (7) 2020-04-27 04:21:00 Ankit Cortez [facility] MAGNESIUM 2020-04-27 04:21:00 Ankit Cortez [facility] PHOSPHORUS 2020-04-27 04:21:00 Ankit Cortez [facility] CBC W/PLT COUNT & AUTO DIFFERENTIAL 2020-04-27 04:21:00 Ankit Cortez [facility] BLOOD GAS, ARTERIAL 2020-04-27 04:20:00 Ankit Cortez [facility] APTT 2020-04-27 01:54:00 Fe Duutoni [facility] XR CHEST 1 VIEW PORTABLE/BEDSIDE 2020-04-27 01:37:00 Aixa Cortez [facility] POCT-GLUCOSE METER 2020-04-27 00:33:00 Dhiraj Mclaughlin [facility] POCT-GLUCOSE METER 2020-04-26 21:14:00 Dhiraj Mclaughlin [facility] APTT 2020-04-26 18:36:00 Olutdominique, [facility]inkaixa [facility] HEMO[facility] HEMATOCRIT 2020-04-26 17:33:00 Olutoye, [facility]gabeinka [facility] ([facility] 2020-04-26 17:33:00 Olutmargote, Kelechia [facility] POCT-GLUCOSE METER 2020-04-26 17:25:00 Dhiraj Mclaughlin [facility] TRANSFUSE LEUKO-REDUCED RED BLOOD CELLS 2020-04-26 15:05:56 Med Keenannya [facility] CBC (HEMOGRAM ONLY) 2020-04-26 14:43:00 Murray Spicer [facility] BLOOD GAS, ARTERIAL 2020-04-26 12:58:00 [facility] POCT-GLUCOSE METER 2020-04-26 12:54:00 Dhiraj Mclaughlin [facility] TRANSFUSE LEUKO-REDUCED RED BLOOD CELLS 2020-04-26 11:05:53 Chad[place] [address] [facility] BLOOD GAS, ARTERIAL 2020-04-26 09:08:00 Olutmargote, [facility] POCT-GLUCOSE METER 2020-04-26 05:04:00 Dhiraj Mclaughlin [facility] BLOOD GAS, ARTERIAL 2020-04-26 04:53:00 Ankit Cortez [facility] TYPE AND SCREEN, AUTOMATED 2020-04-26 04:53:00 Cande Munoz [facility] BASIC METABOLIC PANEL (7) 2020-04-26 04:52:00 Cande Munoz [facility] CBC W/PLT COUNT & AUTO DIFFERENTIAL 2020-04-26 04:52:00 Cande Munoz [facility] BASIC METABOLIC PANEL (7) 2020-04-26 03:50:00 Ankit Cortez [facility] MAGNESIUM 2020-04-26 03:50:00 Ankit Cortez [facility] PHOSPHORUS 2020-04-26 03:50:00 Ankit Cortez [facility] CBC W/PLT COUNT & AUTO DIFFERENTIAL 2020-04-26 03:50:00 [facility] PORTABLE/BEDSIDE 2020-04-26 02:40:00 Feliciano Zavala [facility] POCT-GLUCOSE METER 2020-04-26 00:13:00 Dhiraj Mclaughlin [facility] POCT-GLUCOSE METER 2020-04-25 21:30:00 Dhiraj Mclaughlin [facility] POCT-GLUCOSE METER 2020-04-25 18:38:00 Dhiraj Mclaughlin [facility] IR G-TUBE TO G-J TUBE CONVERSION 2020-04-25 13:49:00 Matt Mclaughlin [facility] POCT-GLUCOSE METER 2020-04-25 11:38:00 Dhiraj Mclaughlin [facility] SARS-COV2/RT-PCR ([facility]) 2020-04-25 08:11:00 Jj Zavala [facility] BLOOD GAS, ARTERIAL 2020-04-25 08:10:00 Fe Du [facility] BLOOD GAS, ARTERIAL 2020-04-25 04:23:00 Ankit Cortez [facility] BASIC METABOLIC PANEL (7) 2020-04-25 04:22:00 Ankit Cortez [facility] MAGNESIUM 2020-04-25 04:22:00 Ankit Cortez [facility] PHOSPHORUS 2020-04-25 04:22:00 Ankti Cortez [facility] CBC W/PLT COUNT & AUTO DIFFERENTIAL 2020-04-25 04:22:00 Ankit Cortez [facility] XR CHEST 1 VIEW PORTABLE/BEDSIDE 2020-04-25 01:25:00 [facility] BLOOD [facility], ARTERIAL 2020-04-24 21:41:00 Lucas [facility] CBC (HEMOGRAM ONLY) 2020-04-24 21:40:00 Lucas [facility] BASIC METABOLIC PANEL (7) 2020-04-24 21:40:00 Darrian Zavala [facility] PHOSPHORUS 2020-04-24 21:40:00 Lucas [facility] MAGNESIUM 2020-04-24 21:40:00 Lucas [facility] PT/APTT 2020-04-24 21:40:00 [facility] CALCIUM, IONIZED 2020-04-24 21:40:00 [facility] PORTABLE/BEDSIDE 2020-04-24 20:28:00 Feliciano Zavala [facility] VIRUS CULTURE 2020-04-24 20:09:15 Lalit Zavala [facility] AFB CULTURE + SMEAR (NON-SPUTUM) 2020-04-24 17:57:29 Matt Mclaughlin [facility] ANAEROBIC CULTURE 2020-04-24 17:57:29 Dhiraj Mclaughlin [facility] FUNGUS CULTURE + SMEAR 2020-04-24 17:57:29 Dhiraj Mclaughlin ios [facility] SURGICALLY OBTAINED CULTURE + GRAM STAIN 2020-04-24 17:57:29 Dhiraj Mclaughlin [facility] TRANSFUSION SERVICE REPORT - SCAN 2020-04-24 17:51:27 Provid er, Default Scanning [facility] TISSUE EXAM 2020-04-24 17:44:00 Dhiraj Mclaughlin [facility] CALCIUM, IONIZED 2020-04-24 17:26:04 [facility] BLO[facility], ARTERIAL 2020-04-24 17:26:04 Crechristian Hakeem Spears [facility] SODIUM NA-STAT LAB 2020-04-24 17:26:04 Creo Hakeem Spears [facility] POTASSIUM-STAT LAB 2020-04-24 17:26:04 Creo Hakeem pSears [facility] GLUCOSE-STAT LAB 2020-04-24 17:26:04 Creo Hakeem [facility] HGB/HCT (H&H) - STAT LAB 2020-04-24 17:26:04 Hakeem Hood Perfec to [facility] CALCIUM, IONIZED 2020-04-24 16:50:55 Creo Hakeem Spears [facility] BLOOD GAS, ARTERIAL 2020-04-24 16:50:55 Crechristian Hakeem Spears [facility] SODIUM NA-STAT LAB 2020-04-24 16:50:55 Creo Hakeem Spears [facility] POTASSIUM-STAT LAB 2020-04-24 16:50:55 Creo Hakeem Spears [facility] GLUCOSE-STAT LAB 2020-04-24 16:50:55 Creo Hakeem Spears [facility] HGB/HCT (H&H) - STAT LAB 2020-04-24 16:50:55 CreHakeem gonzales Perfec to [facility] THORACOSCOPY (VATS),DECORTICATION 2020-04-24 15:30:00 Jayant Mclaughlin [facility] THORACOTOMY 2020-04-24 15:30:00 Dhiraj Mclaughlin [facility] POCT-GLUCOSE METER 2020-04-24 06:15:00 Dhiraj Mclaughlin [facility] BASIC METABOLIC PANEL (7) 2020-04-24 04:05:00 Ankit Cortez [facility] MAGNESIUM 2020-04-24 04:05:00 Ankit Cortez [facility] PHOSPHORUS 2020-04-24 04:05:00 Ankit Cortez [facility] TRIGLYCERIDES 2020-04-24 04:05:00 ToneLucina goldsmithva [facility] CBC W/PLT COUNT & AUTO DIFFERENTIAL 2020-04-24 04:05:00 Ankit Cortez [facility] XR CHEST 1 VIEW PORTABLE/BEDSIDE 2020-04-24 02:53:00 [facility] PO[facility]SE METER 2020-04-24 00:02:00 Dhiraj Mclaughlin [facility] POCT-GLUCOSE METER 2020-04-23 18:40:00 Dhiraj Mclaughlin C [facility] POCT-GLUCOSE METER 2020-04-23 12:12:00 GabisouDhiraj [facility] ABORH, MANUAL 2020-04-23 11:45:00 Herminia Evans [facility] TYPE AND SCREEN, AUTOMATED 2020-04-23 10:59:00 Ankit Cortez [facility] POCT-GLUCOSE METER 2020-04-23 06:50:00 Dhiraj Mclaughlin [facility] BLOOD GAS, ARTERIAL 2020-04-23 03:55:00 Ankit Cortez [facility] CBC W/PLT COUNT & AUTO DIFFERENTIAL 2020-04-23 03:54:00 Ankit Cortez [facility] BASIC METABOLIC PANEL (7) 2020-04-23 03:53:00 Ankit Cortez [facility] MAGNESIUM 2020-04-23 03:53:00 Ankit Cortez [facility] PHOSPHORUS 2020-04-23 03:53:00 Ankit Cortez [facility] XR ABDOMEN / KUB 1 VIEW 2020-04-23 01:42:00 Barry Interiano [facility] XR CHEST 1 VIEW PORTABLE/BEDSIDE 2020-04-23 01:34:00 Aixa Cortez [facility] POCT-GLUCOSE METER 2020-04-23 00:59:00 Dhiraj Mclaughlin [facility] XR ABDOMEN / KUB 1 VIEW 2020-04-22 13:26:00 Yosef Guy [facility] POCT-GLUCOSE METER 2020-04-22 13:03:00 Dhiraj Mclaughlin [facility] XR ABDOMEN / KUB 1 VIEW 2020-04-22 12:32:00 Yosef Guy [facility] XR ABDOMEN / KUB 1 VIEW 2020-04-22 05:01:00 Cande Munoz [facility] BASIC METABOLIC PANEL (7) 2020-04-22 04:31:00 Ankit Cortez [facility] MAGNESIUM 2020-04-22 04:31:00 Ankit Cortez [facility] PHOSPHORUS 2020-04-22 04:31:00 Ankit Cortez [facility] BLOOD GAS, ARTERIAL 2020-04-22 04:31:00 Ankit Cortez [facility] CBC W/PLT COUNT & AUTO DIFFERENTIAL 2020-04-22 04:31:00 Ankit Cortez [facility] XR CHEST 1 VIEW PORTABLE/BEDSIDE 2020-04-22 01:53:00 Aixa Cortze [facility] POCT-GLUCOSE METER 2020-04-21 23:58:00 Dhiraj Mclaughlin [facility] BLOOD GAS, ARTERIAL 2020-04-21 13:13:00 Ankit Cortez [facility] POCT-GLUCOSE METER 2020-04-21 13:10:00 Dhiraj Mclaughlin [facility] BLOOD GAS, ARTERIAL 2020-04-21 12:02:00 Ankit Cortez [facility] BASIC METABOLIC PANEL (7) 2020-04-21 12:00:00 Ankit Cortez [facility] MAGNESIUM 2020-04-21 12:00:00 Ankit Cortez [facility] PHOSPHORUS 2020-04-21 12:00:00 Ankit Cortez [facility] PT/APTT 2020-04-21 12:00:00 Ankit Cortez [facility] LACTIC ACID, ARTERIAL 2020-04-21 12:00:00 Ankit Cortez [facility] TROPONIN I 2020-04-21 11:59:00 Ankit Cortez [facility] CBC W/PLT COUNT & AUTO DIFFERENTIAL 2020-04-21 11:59:00 Ankit Cortez [facility] XR CHEST 1 VIEW PORTABLE/BEDSIDE 2020-04-21 11:53:00 [facility] PO[facility]-BLOOD GASES, ARTERIAL 2020-04-21 11:34:00 Dhiraj Mclaughlin [facility] POCT-SODIUM 2020-04-21 11:34:00 Dhiraj Mclaughlin [facility] POCT-POTASSIUM 2020-04-21 11:34:00 Dhiraj Mclaughlin [facility] POCT-HEMOGLOBIN 2020-04-21 11:34:00 Dhiraj Mclaughlin [facility] POCT-HEMATOCRIT 2020-04-21 11:34:00 Dhiraj Mclaughlin [facility] POCT-CALCIUM IONIZED 2020-04-21 11:34:00 Dhiraj Mclaughlin [facility] POCT-GLUCOSE 2020-04-21 11:34:00 Dhiraj Mclaughlin [facility] POCT-GLUCOSE METER 2020-04-21 06:14:00 Dhiraj Mclaughlin [facility] SARS-COV2/RT-PCR ([facility]) 2020-04-21 05:08:00 Ankit Cortez [facility] BASIC METABOLIC PANEL (7) 2020-04-21 04:25:00 Ankit Cortez [facility] MAGNESIUM 2020-04-21 04:25:00 Ankit Cortez [facility] PHOSPHORUS 2020-04-21 04:25:00 Ankit Cortez [facility] CBC W/PLT COUNT & AUTO DIFFERENTIAL 2020-04-21 04:25:00 Ankit Cortez [facility] BLOOD GAS, ARTERIAL 2020-04-21 04:24:00 [facility]SE [facility]ER 2020-04-21 00:30:00 Dhiraj Mclaughlin [facility] XR CHEST 1 VIEW PORTABLE/BEDSIDE 2020-04-21 00:26:00 [facility] PO[facility]SE METER 2020-04-20 17:54:00 Dhiraj Mclaughlin [facility] POCT-GLUCOSE METER 2020-04-20 12:55:00 Dhiraj Mclaughlin [facility] CT CHEST WITHOUT IV CONTRAST 2020-04-20 11:43:00 Juanito Cortez [facility] BLOOD GAS, ARTERIAL 2020-04-20 07:51:00 Ankit Cortez [facility] POCT-GLUCOSE METER 2020-04-20 06:27:00 Dhiraj Mclaughlin [facility] POCT-GLUCOSE METER 2020-04-20 05:43:00 Dhiraj Mclaughlin [facility] BLOOD GAS, ARTERIAL 2020-04-20 03:11:00 Ankit Cortez [facility] BASIC METABOLIC PANEL (7) 2020-04-20 03:07:00 Ankit Cortez [facility] MAGNESIUM 2020-04-20 03:07:00 Ankit Cortez [facility] PHOSPHORUS 2020-04-20 03:07:00 Ankit Cortez [facility] CBC W/PLT COUNT & AUTO DIFFERENTIAL 2020-04-20 03:07:00 Ankit Cortez [facility] XR CHEST 1 VIEW PORTABLE/BEDSIDE 2020-04-20 01:51:00 Aixa Cortez [facility] POCT-GLUCOSE METER 2020-04-19 23:46:00 Dhiraj Mclaughlin [facility] POCT-GLUCOSE METER 2020-04-19 17:43:00 Dhiraj Mclaughlin [facility] POCT-GLUCOSE METER 2020-04-19 12:52:00 Dhiraj Mclaughlin [facility] XR ABDOMEN / KUB 1 VIEW 2020-04-19 12:48:00 Barry Interiano [facility] BASIC METABOLIC PANEL (7) 2020-04-19 10:42:00 Ankit Cortez [facility] MAGNESIUM 2020-04-19 10:42:00 Ankit Cortez [facility] PHOSPHORUS 2020-04-19 10:42:00 Ankit Cortez [facility] BLOOD GAS, ARTERIAL 2020-04-19 10:42:00 Ankit Cortez [facility] CBC W/PLT COUNT & AUTO DIFFERENTIAL 2020-04-19 10:42:00 Ankit Cortez [facility] XR CHEST 1 VIEW PORTABLE/BEDSIDE 2020-04-19 10:22:00 Aixa Cortez [facility] POCT-GLUCOSE METER 2020-04-19 05:03:00 Dhiraj Mclaughlin [facility] PREALBUMIN 2020-04-19 03:21:00 Ankit Cortez [facility] POCT-GLUCOSE METER 2020-04-18 23:28:00 Dhiraj Mclaughlin [facility] POCT-GLUCOSE METER 2020-04-18 17:53:00 Dhiraj Mclaughlin [facility] POCT-GLUCOSE METER 2020-04-18 12:10:00 Dhiraj Mclaughlin [facility] POCT-GLUCOSE METER 2020-04-18 05:52:00 Dhiraj Mclaughlin [facility] MAGNESIUM 2020-04-18 04:32:00 [facility] 2020-04-18 04:32:[address] [facility] BASIC METABOLIC PANEL (7) 2020-04-18 04:32:00 Cande Munoz I [facility] BLOOD GAS, ARTERIAL 2020-04-18 04:32:00 Loyda Marie [facility] CBC W/PLT COUNT & AUTO DIFFERENTIAL 2020-04-18 04:32:[address] [facility] XR CHEST 1 VIEW PORTABLE/BEDSIDE 2020-04-18 04:24:00 Noel Marie [facility] POCT-GLUCOSE METER 2020-04-17 23:33:00 Dhiraj Mclaughlin [facility] POCT-GLUCOSE METER 2020-04-17 18:44:00 Dhiraj Mclaughlin [facility] XR ABDOMEN / KUB 1 VIEW 2020-04-17 13:02:00 Wilfrid Fabian [facility] POCT-GLUCOSE METER 2020-04-17 11:50:00 Dhiraj Mclaughlin [facility] 2D ECHO W/ DOPPLER (CW/PW/COLOR) 2020-04-17 10:35:00 Wilfrid Flores [facility] VANCOMYCIN LEVEL, TROUGH 2020-04-17 08:33:00 Barbara Fabian [facility] MAGNESIUM 2020-04-17 03:26:00 [facility] 2020-04-17 03:26:[address] [facility] BASIC METABOLIC PANEL (7) 2020-04-17 03:26:00 Arnold [facility] CBC W/PLT COUNT & AUTO DIFFERENTIAL 2020-04-17 03:26:[address] [facility] VANCOMYCIN LEVEL, TROUGH 2020-04-16 23:55:00 Galina Lugo [facility] POCT-GLUCOSE METER 2020-04-16 23:46:00 Dhiraj Mclaughlin [facility] POCT-GLUCOSE METER 2020-04-16 17:46:00 Dhiraj Mclaughlin [facility] BLOOD GAS, ARTERIAL 2020-04-16 14:39:00 Ankit Cortez [facility] POCT-GLUCOSE METER 2020-04-16 13:36:00 Dhiraj Mclaughlin [facility] VENOUS DOPPLER LEGS BILATERAL 2020-04-16 11:52:00 Santi Cortez [facility] BLOOD GAS, ARTERIAL 2020-04-16 08:06:00 [facility] 2020-04-16 06:45:[address] [facility] BLOOD CULTURE 2020-04-16 06:39:[address] [facility] SPUTUM CULTURE + GRAM STAIN 2020-04-16 06:27:[address] [facility] MAGNESIUM 2020-04-16 04:28:[address] [facility] PHOSPHORUS 2020-04-16 04:28:[address] [facility] BASIC METABOLIC PANEL (7) 2020-04-16 04:28:00 Arnold [facility] CBC W/PLT COUNT & AUTO DIFFERENTIAL 2020-04-16 04:28:[address] [facility] CBC W/PLT COUNT & AUTO DIFFERENTIAL 2020-04-16 02:08:[address] [facility] POCT-GLUCOSE METER 2020-04-16 00:42:00 Dhiraj Mclaughlin [facility] URINALYSIS W/ REFLEX URINE CULTURE 2020-04-15 23:46:00 Jj Munoz [facility] BLOOD GAS, ARTERIAL 2020-04-15 23:39:00 Arnold [facility] PROTHROMBIN TIME/INR 2020-04-15 23:30:[address] [facility] COMPREHENSIVE METABOLIC PANEL 2020-04-15 23:30:[address] [facility] HEMOGLOBIN A1C 2020-04-15 23:30:[address] [facility] CREATINE KINASE (CK) 2020-04-15 23:30:[address] [facility] XR CHEST 1 VIEW PORTABLE/BEDSIDE 2020-04-15 23:12:00 Arnold [facility] Computed tomography of chest without contrast 2020-04-14 00:00:0 0 [facility] Computed tomography of chest without contrast 2020-04-10 00:00:0 0 [facility] Computed tomography of brain without radiopaque contrast 2020-03 00:00:00 [facility] Computed tomography of brain without radiopaque contrast 2020-03 00:00:00 [facility] Computed tomography of chest without contrast 2020-04-07 00:00:0 0 [facility] Computed tomography of brain without radiopaque contrast 2020-03 00:00:00 [facility] Computed tomography of chest without contrast 2020-04-05 00:00:0 0 [facility] Computed tomography of brain without radiopaque contrast 2020-03 00:00:00 [facility] Computed tomography of chest without contrast 2020-03-28 00:00:0 0 [facility] Computed tomography of sacrum and coccyx without contrast 05 00:00:00 [facility] [facility] Ultrasound of chest including mediastinum 2020-03-23 00:00:00 [facility] Ultrasound of chest including mediastinum 2020-03-13 00:00:00 [facility] Computed tomography of chest with contrast 2020-02-18 00:00:00 [facility] Plan of Care Planned Activity Planned Date Details Comments Source Future Scheduled Test 2020-10-16 00:00:00 Hemoglobin A1c [place] surement (procedure) [code = 10312833] [facility] Future Scheduled Test 2020-07-25 00:00:00 INFLUENZA VACCINE (#1) [code = INFLUENZA VACCINE (#1)] [facility] Future Scheduled Test 2020-02-04 00:00:00 Lipid panel (proce dure) [code = 76440864] [facility] Future Scheduled Test 1995 00:00:00 DIABETIC EYE EXAM [code = DIABETIC EYE EXAM] [facility] Future Scheduled Test 1995 00:00:00 Diabetic foot exam ination (regime/therapy) [code = 822703047] [facility] Future Scheduled Test 1995 00:00:00 Urine screening fo r protein (procedure) [code = 262704481] [facility] Future Scheduled Test 1991 00:00:00 PNEUMOCOCCAL VACCI NE 2-64 YEARS AT RISK (1 of 1 - PPSV23) [code = PNEUMOCOCCAL VACCINE 2-64 YEARS AT RISK (1 of 1 - PPSV23)] [facility] Encounters Start Date/Time End Date/Time Encounter Type Admission Type Att[facility] Care Department Encounter ID Source 2020-02-18 18:36:00 2020-04-15 22:00:00 Discharged Inpatient 1 ANANYA KUMAR [facility] [id number] [facility] Results Test Description Test Time Test Comments Results Result Comments Source REJI GODOY 2020-06-22 11:51:00 [facility] [address] [address] Patient Name: SUKHDEEP TINOCO MR #: [id number] : 1985 Age/Sex: 35/M Req #: [id number] Adm Physician: ANANYA KUMAR MD Ordered by: ANANYA KUMAR MD Report #: [id number] Location: MED/SURG Room/Bed: [facility] Procedure: DX/MODIFIED BA. SWALLOW Exam Date: Exam Time: REPORT STATUS: Signed Modified Barium Swallow: Clinical History: Aspiration Comparison: None Fluoro time in minutes: 1.7 Radiation dose: 9.8 mGy air Kerma. Number of images: Multiple Report: The patient ingested various consistencies of barium with a speech pathologist in attendance. A full report from speech pathology will follow. Impression: Fluoroscopy service provided to speech pathology as above. Signed by: Shweta Godfrey MD on 06/22/2020 11:52 AM Dictated By: SHWETA GODFREY MD 115 Transcribed By: JOANN on 06/22/20 115 COPY TO: ANANYA KUMAR MD CHEST SINGLE (PORTABLE) 2020-06-19 09:03:[address] [address] Patient Name: SUKHDEEP TINOCO MR #: [id number] : 1985 Age/Sex: 35/M Req #: [id number] Adm Physician: ANANYA KUMAR MD Ordered by: ANANYA KUMAR MD Report #: [id number] Location: MED/SURG Room/Bed: [facility] Procedure: [id number] DX/CHEST SINGLE (PORTABLE) Exam Date: 06/19/20 Exam Time: 0840 REPORT STATUS: Signed EXAMINATION: CHEST SINGLE (PORTABLE) INDICATION: Respiratory failure COMPARISON: Chest CT 06/13/2020, chest radiograph 06/12/2020 FINDINGS: LINES/TUBES:Tracheostomy tube in place. Intercostal arterial embolization coils overlie the peripheral right lung. LUNGS:The lungs are moderately inflated. Unchanged right greater than left interstitial opacities. PLEURA:Trace right pleural effusion. No pneumothorax. MEDIASTINUM:The cardiomediastinal silhouette appears unchanged in size and shape. BONES/SOFT TISSUES:No acute osseous injury. ABDOMEN:No free air under the diaphragm. IMPRESSION: No significant change in right greater than left interstitial opacities. Signed by: Humberto Cisse MD on 06/19/2020 9:07 AM Dictated By: HUMBERTO CISSE MD 6 COPY TO: ANANYA KUMAR MD [facility] 2020-06-15 09:09:00 [address] [address] Patient Name: SUKHDEEP TINOCO MR #: [id number] : 1985 Age/Sex: 35/M Req #: [id number] Adm Physician: ANANYA KUMAR MD Ordered by: ANANYA KUMAR MD Report #: [id number] Location: MED/SURG Room/Bed: [facility] Procedure: [id number] US/US GALLBLADDER Exam Date: Exam Time: REPORT STATUS: Signed EXAM: Right upper quadrant abdominal ultrasound INDICATION: Elevated liver enzymes COMPARISON: None. TECHNIQUE: Transverse and longitudinal images of the right upper quadrant abdomen were obtained FINDINGS: Liver: Size: 14.1 cm in the right midclavicular line, normal Appearance: Normal echogenicity, smooth contour Mass: No focal masses Gallbladder: Small amount of sludge in the gallbladder. No gallbladder distension, pericholecystic fluid, wall thickening, stone, or reported sonographic Morel's sign. Gallbladder wall measures 2 mm. Bile Ducts: Intrahepatic Ducts: No dilatation Extrahepatic Ducts: Common bile duct measures 3 mm Pancreas: Visualized portions of the pancreatic head, neck and proximal body are normal. Kidney: The right kidney measures 9.8 cm without evidence of hydronephrosis or stone. Vessels: Aorta: Visualized portions are normal Inferior Vena Cava: Visualized portions are normal Main Portal Vein: 1.3 cm, normal size with hepatopetal flow. Free Fluid: No ascites or pleural effusion IMPRESSION: Small amount of sludge in the gallbladder. No cholelithiasis or sonographic evidence of cholecystitis. Signed by: Humberto Cisse MD on 06/15/2020 9:19 AM Dictated By: HUMBERTO CISSE MD 8 Transcribed By: JOANN on 06/15/20918 COPY TO: ANANYA KUMAR MD CT CHEST W 2020-06-13 17:26:00 [address] [place] [address] Patient Name: SUKHDEEP TINOCO MR #: [id number] : 1985 Age/Sex: 35/M Req #: [id number] Adm Physician: ANANYA KUMAR MD Ordered by: OTIS MENDEZ MD Report #: [id number] Location: MED/SURG Room/Bed: [facility] Procedure: [id number] CT/CT CHEST W Exam Date: 06/13/20 Exam Time: 1716 REPORT STATUS: Signed EXAM: CT Chest WITH contrast 06/13/2020 5:17 PM INDICATION: Shortness of breath. Chronic pneumothorax. Pneumonia r/o pneumonia 20200613 COMPARISON: 06/12/2020. April 14, 2020 TECHNIQUE: Chest was scanned utilizing a multidetector helical scanner from the lung apex through the level of the adrenal glands with administration of IV contrast. Coronal and sagittal reformations were obtained. Routine protocol was performed. IV CONTRAST: 100 mL of Isovue-370 COMPLICATIONS: None RADIATION DOSE: Total DLP: 522 mGy*cm Estimated effective dose: (DLP x 0.014 x size factor) mSv CTDIvol has been reviewed. It is below the limits set by the Radiation Protocol Committee (RPC). Dose modulation, iterative reconstruction, and/or weight based adjustment of the mA/kV was utilized to reduce the radiation dose to as low as reasonably achievable. LINES/ TUBES: Tracheostomy tube terminates in the midtrachea. Previously seen left arm PICC no longer seen. Previously seen right and left basilar pleural pigtail drainage catheter is no longer seen. LUNGS AND AIRWAYS/PLEURA: Resolution of previously seen loculated right-sided pneumothoraces. New postsurgical change along the posterior right chest wall with linear metallic foreign body. Again noted are bilateral diffuse multifocal groundglass and patchy consolidative opacities, most confluent in the bilateral lower lobes and right upper lobe. This has improved when compared with prior exam. Scattered smooth intralobular septal thickening. HEART AND MEDIASTINUM: The thyroid gland is normal. Again noted is mediastinal lymphadenopathy, likely reactive. Previously seen mucous and debris within the upper trachea no longer seen. No cardiomegaly or pericardial effusion. Coronary atherosclerosis. UPPER ABDOMEN: Limited views of the upper abdomen is grossly unremarkable. Splenomegaly, measuring up to 16.9 cm. BONES: The visualized bony thorax is within normal limits. SOFT TISSUES: Diffuse mild anasarca. IMPRESSION: Resolution of previously seen loculated right- sided pneumothoraces. New postsurgical change along the posterior right chest wall with linear metallic foreign body. Improved multifocal groundglass and patchy consolidative opacities, which may represent a combination of resolving pneumonia (including atypical pneumonia) or aspiration with superimposed pulmonary edema. Lines and tubes as above. Signed by: Dr. Silver Lacy M.D. on 06/13/2020 5:39 PM Dictated By: SILVER LACY MD, MD 38 Transcribed By: JOANN on 06/13/201738 COPY TO: OTIS MENDEZ MD MODIFIED BA. SWALLOW 2020-06-13 14:32:00 [address] [address] Patient Name: SUKHDEEP TINOCO MR #: [id number] : 1985 Age/Sex: 35/M Req #: [id number] Adm Physician: ANANYA KUMAR MD Ordered by: ANANYA KUMAR MD Report #: [id number] Location: MED/SURG Room/Bed: [facility] Procedure: [id number] DX/MODIFIED BA. SWALLOW Exam Date: 06/13/20 Exam Time: 1303 REPORT STATUS: Signed Modified Barium Swallow: Clinical History: Aspiration Comparison: None Fluoro time in minutes: 1 minute, 48 seconds Radiation dose: 4.81 mGy air Kerma. Number of images: Multiple Report: The patient ingested various consistencies of barium with a speech pathologist in attendance. A full report from speech pathology will follow. Impression: Fluoroscopy service provided for modified barium swallow. Signed by: Shweta Godfrey MD on 06/13/2020 2:36 PM Dictated By: SHWETA GODFREY MD 1436 Transcribed By: JOANN on 06/13/20 1436 COPY TO: ANANYA KUMAR MD CHEST SINGLE (PORTABLE) 2020-06-12 17:20:00 [address] [place] [address] Patient Name: SUKHDEEP TINOCO MR #: [id number] : 1985 Age/Sex: 35/M Req #: [id number] Adm Physician: ANANYA KUMAR MD Ordered by: ANANYA KUMAR MD Report #: [id number] Location: MED/SURG Room/Bed: [facility] Procedure: [id number] DX/CHEST SINGLE (PORTABLE) Exam Date: 06/12/20 Exam Time: 164 REPORT STATUS: Signed EXAMINATION: CHEST SINGLE (PORTABLE) INDICATION: chronic respiratory failure 20200612 1641 Y COMPARISON: 04/13/2020 FINDINGS: TUBES and LINES: Tracheostomy tube. LUNGS: Chronic appearing changes in the right chest with small right pleural effusion. Linear radiopaque metallic density over the right mid chest could be postsurgical. PLEURA: No pneumothorax is seen. HEART AND MEDIASTINUM: The cardiomediastinal silhouette is unremarkable. BONES AND SOFT TISSUES: No acute osseous lesion. Soft tissues are unremarkable. UPPER ABDOMEN: No free air under the diaphragm. IMPRESSION: Chronic appearing changes in the right chest with small right pleural effusion. Linear radiopaque metallic density over the right mid chest could be postsurgical. Signed by: Dr. Silver Lacy M.D. on 06/12/2020 5:23 PM Dictated By: SILVER LACY MD, MD 22 Transcribed By: JOANN on 06/12/201722 COPY TO: ANANYA KUMAR MD POC-Glucose meter 2020-06-12 11:54:00 Test Item POC-Glucose Meter (test code = 1538) 153 mg/dL 70-110 H : TESTED AT [id number] [facility], [address]: Pneumatic Tube Operator/Movie Actor ID = [id number] for Kajal Corado Lab Interpretation (test code = 20805-3) [facility] [id number] 11:54:00* Test Item Value Reference Range Interpretation Comments POC-GLUCOSE METER (BEAKER) (test code = 1538) 153 mg/dL 70-110 H : TESTED AT [facility] [address] [facility], [address]: Pneumatic Tube Operator/Movie Actor ID = [id number] for Kajal Corado Basic Metabolic [id number] 06:30:00* Test Item Value Reference Range Interpretation Comments Sodium (test code = 2951-2) 140 meq/L 136-145 Potassium (test code = 2823-3) 3.9 meq/L 3.5-5.1 Chloride (test code = 2075-0) 100 meq/L 98-107 CO2 (test code = 8-9) 33 meq/L 22-29 H BUN (test code = 3094-0) 56 mg/dL 7-21 H Creatinine (test code = 2160-0) 1.06 mg/dL 0.57-1.25 Glucose (test code = 2345-7) 176 mg/dL 70-105 H Calcium (test code = 39821-2) 9.0 mg/dL 8.4-10.2 EGFR (test code = 35320-3) 80 mL/min/1.73 sq m ESTIMATED GFR IS NOT ACCURATE CREATININE CLEARANCE IN PREDICTING GLOMERULAR FILTRATION RATE. ESTIMATED GFR IS NOT APPLICABLE FOR DIALYSIS PATIENTS. ROSALIO (test code = ROSALIO) Pneumatic Tube Operator ID - PIAYA L Lab Interpretation (test code = 49558-4) [facility]normal [facility] [id number] 06:30:00* Test Item Value Reference Range Interpretation Comments SODIUM (BEAKER) (test code = 381) 140 meq/L 136-145 POTASSIUM (BEAKER) (test code = 379) 3.9 meq/L 3.5-5.1 CHLORIDE (BEAKER) (test code = 382) 100 meq/L 98-107 CO2 (BEAKER) (test code = 355) 33 meq/L 22-29 H BLOOD UREA NITROGEN (BEAKER) (test code = 354) 56 mg/dL 7-21 H CREATININE (BEAKER) (test code = 358) 1.06 mg/dL 0.57-1.25 GLUCOSE RANDOM (BEAKER) (test code = 652) 176 mg/dL 70-105 H CALCIUM (BEAKER) (test code = 697) 9.0 mg/dL 8.4-10.2 EGFR (BEAKER) (test code = 1092) 80 mL/min/1.73 sq m ESTIMATED GFR IS NOT ACCURATE CREATININE CLEARANCE IN PREDICTING GLOMERULAR FILTRATION RATE. ESTIMATED GFR IS NOT APPLICABLE FOR DIALYSIS PATIENTS. Pneumatic Tube Operator ID - PIAYA LPOCT-GLUCOSE [id number] 06:11:00* Test Item Value Reference Range Interpretation Comments POC-GLUCOSE METER (BEAKER) (test code = 1538) 175 mg/dL 70-110 H : TESTED AT [facility] [address] [place] [address], [address]: Pneumatic Tube Operator/Movie Actor ID = [id number] for MSIBI, MNCEDISI CBC with platelet count + automated [id number] 04:22:00* Test Item Value Reference Range Interpretation Comments WBC (test code = 6690-2) 3.6 3.5- 10.5 K/L RBC (test code = 789-8) 3.48 4.63- 6.08 M/L L MCHC (test code = 786-4) 32.2 32.3- 36.5 GM/DL L Hematocrit (test code = 4544-3) 29.2 % 40.1-51 L MCV (test code = 787-2) 83.9 fL 79-92.2 MCH (test code = 785-6) 27.0 pg 25.7-32.2 RDW (test code = 788-0) 15.0 % 11.6-14.4 H Platelets (test code = 777-3) 188 150- 450 K/CU MM MPV (test code = 26846-4) 10.4 fL 9.4-12.4 nRBC (test code = 413) 0 0- 0 /100 WBC % Neutros (test code = 429) 54 % % Lymphs (test code = 430) 28 % % Monos (test code = 431) 17 % % Eos (test code = 432) 1 % % Baso (test code = 437) 0 % # Neutros (test code = 670) 1.91 1.78- 5.38 K/L # Lymphs (test code = 414) 1.00 1.32- 3.57 K/L L # Monos (test code = 415) 0.59 0.30- 0.82 K/L # Eos (test code = 416) 0.04 0.04- 0.54 K/L # Baso (test code = 417) 0.01 0.01- 0.08 K/L Immature Granulocytes-Relative (test code = 2801) 1 % 0-1 Lab Interpretation (test code = 69433-6) Abnormal [facility] W/PLT COUNT & AUTO [id number] 04:22:00* Test Item Value Reference Range Interpretation Comments WHITE BLOOD CELL COUNT (BEAKER) (test code = 775) 3.6 K/ L 3.5- 10.5 RED BLOOD CELL COUNT (BEAKER) (test code = 761) 3.48 M/ L 4.63-6 .08 L HEMOGLOBIN (BEAKER) (test code = 410) 9.4 GM/DL 13.7-17.5 L HEMATOCRIT (BEAKER) (test code = 411) 29.2 % 40.1-51.0 L MEAN CORPUSCULAR VOLUME (BEAKER) (test code = 753) 83.9 fL 79. 0-92.2 MEAN CORPUSCULAR HEMOGLOBIN (BEAKER) (test code = 751) 27.0 pg 25.7-32.2 MEAN CORPUSCULAR HEMOGLOBIN CONC (BEAKER) (test code = 752) 32.2 GM/DL 32.3-36.5 L RED CELL DISTRIBUTION WIDTH (BEAKER) (test code = 412) 15.0 % 11.6-14.4 H PLATELET COUNT (BEAKER) (test code = 756) 188 K/CU MM 150-450 MEAN PLATELET VOLUME (BEAKER) (test code = 754) 10.4 fL 9.4-12 .4 NUCLEATED RED BLOOD CELLS (BEAKER) (test code = 413) 0 /100 WBC 0 -0 NEUTROPHILS RELATIVE PERCENT (BEAKER) (test code = 429) 54 % LYMPHOCYTES RELATIVE PERCENT (BEAKER) (test code = 430) 28 % MONOCYTES RELATIVE PERCENT (BEAKER) (test code = 431) 17 % EOSINOPHILS RELATIVE PERCENT (BEAKER) (test code = 432) 1 % BASOPHILS RELATIVE PERCENT (BEAKER) (test code = 437) 0 % NEUTROPHILS ABSOLUTE COUNT (BEAKER) (test code = 670) 1.91 K/ L 1.78-5.38 LYMPHOCYTES ABSOLUTE COUNT (BEAKER) (test code = 414) 1.00 K/ L 1.32-3.57 L MONOCYTES ABSOLUTE COUNT (BEAKER) (test code = 415) 0.59 K/ L 0. 30-0.82 EOSINOPHILS ABSOLUTE COUNT (BEAKER) (test code = 416) 0.04 K/ L 0.04-0.54 BASOPHILS ABSOLUTE COUNT (BEAKER) (test code = 417) 0.01 K/ L 0. 01-0.08 IMMATURE GRANULOCYTES-RELATIVE PERCENT (BEAKER) (test code = 2801) 1 % 0-1 POCT-GLUCOSE [id number] 00:30:00* Test Item Value Reference Range Interpretation Comments POC-GLUCOSE METER (BEAKER) (test code = 1538) 176 mg/dL 70-110 H : TESTED AT [address] [id number] [facility], [address]: Pneumatic Tube Operator/Movie Actor ID = [id number] for [place]IA COFFEY POCT-GLUCOSE [id number] 17:42:00* Test Item Value Reference Range Interpretation Comments POC-GLUCOSE METER (BEAKER) (test code = 1538) 180 mg/dL 70-110 H : TESTED AT [facility] [address] [facility], [address]: Pneumatic Tube Operator/Movie Actor ID = [id number] for LORENZA GARCIA SARS-CoV2/RT-PCR (Asymptomatic ONLY)2020-06-11 16:10:00* Test Item Value Reference Range Interpretation Comments SARS-COV2/RT-PCR (test code = 77186-3) Negative Not Detected, N egative SARS-COV-2 PERFORMING LAB (test code = 67684-7) [facility] ROSALIO (test code = ROSALIO) Negative result for this myesha t determines that SARS-CoV-2 RNA was not present in the specimen above the Limit of Detection (LOD). However, Negative results do not preclude SARS-CoV-2 infection and should not be used as the sole basis for treatment or patient management decisions. Negative results must be combined with clinical observations, patient history, and epidemiological information. A false negative result may occur if a specimen is improperly collected, transported or handled. A false negative result should be considered if patient's recent exposures or clinical presentation indicate that COVID-19 (SARS-CoV-2) is likely and diagnostic tests for other causes of illness are negative. Re-testing should be considered in cases of suspected false negatives. The limit of detection for this assay is 800 copies/mL. This SARS CoV-2 test is a real-time RT-PCR test intended for the qualitative detection of nucleic acid from SARS-CoV-2 in a nasopharyngeal swab specimen collected from individuals suspected of COVID-19 by their healthcare provider. This test has not been Food and Drug Administration (FDA) cleared or approved. This is a modified version of an approved Emergency Use Authorization (EUA) and is in the process of review by the FDA. Once authorized by the FDA, the issued EUA will be effective until the declaration that circumstances exist justifying the authorization of the emergency use of in vitro diagnostic tests for detection and/or diagnosis of COVID-19 is terminated under Section 564(b)(2) of the Act or the EUA is revoked under Section 564(g) of the Act. Fact Sheet for Healthcare Providers:https://www.[employer]/sites/default/files/product/documents/Fact_Shee a_PF_Krewtmrtp_Askc_ALFD-QlW-0.pdf Fact Sheet for Healthcare Patients:https://www.[employer]/sites/default/files/pro duct/documents/Kpay_Atghp_Eauwavwa_Comk_AJQE-GxL-2.pdf Performing Laboratory:[facility] [place] [address] [facility])2020-06-11 16:10:00* Test Item Value Reference Range Interpretation Comments SARS-COV2/RT-PCR (test code = 1698668) Negative Not Detected, N egative SARS-COV-2 PERFORMING LAB (test code = 4653544) [facility] Negative result for this test determines that SARS-CoV-2 RNA was not present in the specimen above the Limit of Detection (LOD). However, Negative results do n ot preclude SARS-CoV-2 infection and should not be used as the sole basis for tr eatment or patient management decisions. Negative results must be combined with clinical observations, patient history, and epidemiological information. A false negative result may occur if a specimen is improperly collected, transported or handled. A false negative result should be considered if patient's recent expo sures or clinical presentation indicate that COVID-19 (SARS-CoV-2) is likely and diagnostic tests for other causes of illness are negative. Re-testing should be considered in cases of suspected false negatives.The limit of detection for this assay is 800 copies/mL.This SARS CoV-2 test is a real-time RT-PCR test intended for the qualitative detection of nucleic acid from SARS-CoV-2 in a nasopharyn geal swab specimen collected from individuals suspected of COVID-19 by their [facility] provider.This test has not been Food and Drug Administration (FDA) clear ed or approved. This is a modified version of an approved Emergency Use Authori zation (EUA) and is in the process of review by the FDA. Once authorized by [facility] FDA, the issued EUA will be effective until the declaration that circumstances exist justifying the authorization of the emergency use of in vitro diagnostic tests for detection and/or diagnosis of COVID-19 is terminated under Section 564 (b)(2) of the Act or the EUA is revoked under Section 564(g) of the Act.Fact She et for Healthcare Providers:https://www.[employer].com/sites/default/files/product/d ocuments/Wifz_Gosey_ZI_Sefllbmiu_Whwa_RVPL-TqM-2.pdfFact Sheet for Healthcare Pa rj:https://www.[employer].com/sites/default/files/product/documents/Fact_Sheet_P azvdwoz_Heyy_WBVO-IbT-0.pdfPerforming Laboratory:[facility] [address] [facility], [place] [address]QHXW-XARLVKB [id number] 11:24:00* Test Item Value Reference Range Interpretation Comments POC-GLUCOSE METER (TITA) (test code = 1538) 150 mg/dL 70-110 H : TESTED AT [facility] [address] [place] [address], [address]: Pneumatic Tube Operator/Movie Actor ID = [id number] for LORENZA GARCIA [id number] 10:03:00* Test Item Value Reference Range Interpretation Comments Ferritin (test code = 2276-4) 2739.75 ng/mL 5-275 H ROSALIO (test code = ROSALIO) Pneumatic Tube Operator ID - ASHLEY C Lab Interpretation (test code = 31211-5) [facility] 10:03:00* Test Item Value Reference Range Interpretation Comments FERRITIN (BEAKER) (test code = 361) 2739.75 ng/mL 5.00-275.00 H Pneumatic Tube Operator ID - ASHLEY CComprehensive metabolic [id number] 06:28:00* Test Item Value Reference Range Interpretation Comments Protein, Total (test code = 2885-2) 8.2 6.0- 8.3 gm/dL Albumin (test code = 99065-9) 3.1 g/dL 3.5-5 L Alkaline Phosphatase (test code = 6768-6) 241 U/L 40-150 H Total Bilirubin (test code = 1975-2) 0.4 mg/dL 0.2-1.2 Sodium (test code = 2951-2) 139 meq/L 136-145 Potassium (test code = 2823-3) 4.0 meq/L 3.5-5.1 Chloride (test code = 2075-0) 99 meq/L 98-107 CO2 (test code = 8-9) 32 meq/L 22-29 H BUN (test code = 3094-0) 47 mg/dL 7-21 H Creatinine (test code = 2160-0) 1.04 mg/dL 0.57-1.25 Glucose (test code = 2345-7) 198 mg/dL 70-105 H Calcium (test code = 24282-5) 9.2 mg/dL 8.4-10.2 AST (test code = 1920-8) 62 U/L 5-34 H ALT (test code = 1742-6) 95 U/L 6-55 H EGFR (test code = 11328-9) 81 mL/min/1.73 sq m ESTIMATED GFR IS NOT ACCURATE CREATININE CLEARANCE IN PREDICTING GLOMERULAR FILTRATION RATE. ESTIMATED GFR IS NOT APPLICABLE FOR DIALYSIS PATIENTS. ROSALIO (test code = ROSALIO) Pneumatic Tube Operator ID - PIAYA L Lab Interpretation (test code = 00695-9) [facility]normal [facility] ([facility]2020-06-11 06:28:00* Test Item Value Reference Range Interpretation Comments LDH (test code = 2532-0) 237 U/L 125-220 H ROSALIO (test code = ROSALIO) Pneumatic Tube Operator ID - PIAYA L Lab Interpretation (test code = 93543-3) Abnormal [facility]-Reactive [id number] 06:28:00* Test Item Value Reference Range Interpretation Comments CRP (test code = 676) 10.32 mg/dL 0-0.5 H ROSALIO (test code = ROSALIO) Pneumatic Tube Operator ID - PIAYA L Lab Interpretation (test code = 85981-6) [facility]normal [facility]GE[facility]SE (LDH)2020-06-11 06:28:00* Test Item Value Reference Range Interpretation Comments LACTATE DEHYDROGENASE (BEAKER) (test code = 635) 237 U/L 125-2 20 H Pneumatic Tube Operator ID - PIAYA LCOMPREHENSIVE METABOLIC [id number] 06:28:00* Test Item Value Reference Range Interpretation Comments TOTAL PROTEIN (BEAKER) (test code = 770) 8.2 gm/dL 6.0-8.3 ALBUMIN (BEAKER) (test code = 1145) 3.1 g/dL 3.5-5.0 L ALKALINE PHOSPHATASE (BEAKER) (test code = 346) 241 U/L 40-150 H BILIRUBIN TOTAL (BEAKER) (test code = 377) 0.4 mg/dL 0.2-1.2 SODIUM (BEAKER) (test code = 381) 139 meq/L 136-145 POTASSIUM (BEAKER) (test code = 379) 4.0 meq/L 3.5-5.1 CHLORIDE (BEAKER) (test code = 382) 99 meq/L 98-107 CO2 (BEAKER) (test code = 355) 32 meq/L 22-29 H BLOOD UREA NITROGEN (BEAKER) (test code = 354) 47 mg/dL 7-21 H CREATININE (BEAKER) (test code = 358) 1.04 mg/dL 0.57-1.25 GLUCOSE RANDOM (BEAKER) (test code = 652) 198 mg/dL 70-105 H CALCIUM (BEAKER) (test code = 697) 9.2 mg/dL 8.4-10.2 AST (SGOT) (BEAKER) (test code = 353) 62 U/L 5-34 H ALT (SGPT) (BEAKER) (test code = 347) 95 U/L 6-55 H EGFR (BEAKER) (test code = 1092) 81 mL/min/1.73 sq m ESTIMATED GFR IS NOT ACCURATE CREATININE CLEARANCE IN PREDICTING GLOMERULAR FILTRATION RATE. ESTIMATED GFR IS NOT APPLICABLE FOR DIALYSIS PATIENTS. Pneumatic Tube Operator ID - ELAINE LC-REACTIVE [id number] 06:28:00* Test Item Value Reference Range Interpretation Comments C-REACTIVE PROTEIN (TITA) (test code = 676) 10.32 mg/dL 0.00-0.5 0 H Pneumatic Tube Operator ANDREZ - ELAINE LPOCT-GLUCOSE [id number] 05:41:00* Test Item Value Reference Range Interpretation Comments POC-GLUCOSE METER (TITA) (test code = 1538) 174 mg/dL 70-110 H : TESTED AT [address], [address]: Pneumatic Tube Operator/Movie Actor ID = [id number] for RUBEN REIS Jdienozhenfxa8069-88-69 04:42:00* Test Item Value Reference Range Interpretation Comments Procalcitonin (test code = 05203-4) 1.67 ng/mL <0.05 H ROSALIO (test code = ROSALIO) SEPSIS RISK (ng/mL)Low: 0.05-0.50Intermediate: 0.51-2.00High: >=2.01 Lab Interpretation (test code = 80788-1) [facility]normal [facility]CT5137-95-12 04:42:00* Test Item Value Reference Range Interpretation Comments PROCALCITONIN (TITA) (test code = 3036) 1.67 ng/mL <0.05 H SEPSIS RISK (ng/mL)Low: 0.05-0.50Intermediate: 0.51-2.00High: > =2.24F-[id number] 04:28:00* Test Item Value Reference Range Interpretation Comments D-Dimer, Quant (test code = 52932-7) 0.98 <0.50 MG/L FEU H ROSALIO (test code = ROSALIO) Intended Use: The D-Dimer As say can be used to aid in the diagnosis of Deep Vein Thrombosis (DVT) and Pulmonary Embolism Disease (PED).In patients with low pre-test probability, various studies concerning STA Liatest D-dimer test have reported that with a cutoff value of 0.50 MG/L FEU, the Negative Predictive Value (NPV) regarding the exclusion of thrombosis is within 95-100% range. Lab Interpretation (test code = 92121-0) Abnormal [id number] 04:28:00* Test Item Value Reference Range Interpretation Comments D-DIMER QUANTITATIVE (BEAKER) (test code = 671) 0.98 MG/L FEU <0.50 H Intended Use: The D-Dimer Assay can be used to aid in the diagnosis of Deep Vein Thrombosis (DVT) and Pulmonary Embolism Disease (PED).In patients with low pre- test probability, various studies concerning STA Liatest D-dimer test have repor yeyo that with a cutoff value of 0.50 MG/L FEU, the Negative Predictive Value (CLERK [employer] WORKS V) regarding the exclusion of thrombosis is within 95-100% range.CBC W/PLT COUNT & AUTO [id number] 04:03:00* Test Item Value Reference Range Interpretation Comments WHITE BLOOD CELL COUNT (BEAKER) (test code = 775) 3.7 K/ L 3.5- 10.5 RED BLOOD CELL COUNT (BEAKER) (test code = 761) 3.43 M/ L 4.63-6 .08 L HEMOGLOBIN (BEAKER) (test code = 410) 9.1 GM/DL 13.7-17.5 L HEMATOCRIT (BEAKER) (test code = 411) 28.9 % 40.1-51.0 L MEAN CORPUSCULAR VOLUME (BEAKER) (test code = 753) 84.3 fL 79. 0-92.2 MEAN CORPUSCULAR HEMOGLOBIN (BEAKER) (test code = 751) 26.5 pg 25.7-32.2 MEAN CORPUSCULAR HEMOGLOBIN CONC (BEAKER) (test code = 752) 31.5 GM/DL 32.3-36.5 L RED CELL DISTRIBUTION WIDTH (BEAKER) (test code = 412) 15.3 % 11.6-14.4 H PLATELET COUNT (BEAKER) (test code = 756) 153 K/CU MM 150-450 MEAN PLATELET VOLUME (BEAKER) (test code = 754) 10.2 fL 9.4-12 .4 NUCLEATED RED BLOOD CELLS (BEAKER) (test code = 413) 0 /100 WBC 0 -0 NEUTROPHILS RELATIVE PERCENT (BEAKER) (test code = 429) 74 % LYMPHOCYTES RELATIVE PERCENT (BEAKER) (test code = 430) 15 % MONOCYTES RELATIVE PERCENT (BEAKER) (test code = 431) 9 % EOSINOPHILS RELATIVE PERCENT (BEAKER) (test code = 432) 1 % BASOPHILS RELATIVE PERCENT (BEAKER) (test code = 437) 0 % NEUTROPHILS ABSOLUTE COUNT (BEAKER) (test code = 670) 2.74 K/ L 1.78-5.38 LYMPHOCYTES ABSOLUTE COUNT (BEAKER) (test code = 414) 0.57 K/ L 1.32-3.57 L MONOCYTES ABSOLUTE COUNT (BEAKER) (test code = 415) 0.34 K/ L 0. 30-0.82 EOSINOPHILS ABSOLUTE COUNT (BEAKER) (test code = 416) 0.04 K/ L 0.04-0.54 BASOPHILS ABSOLUTE COUNT (BEAKER) (test code = 417) 0.01 K/ L 0. 01-0.08 IMMATURE GRANULOCYTES-RELATIVE PERCENT (BEAKER) (test code = 2801) 0 % 0-1 Occult blood, [id number] 02:03:00* Test Item Value Reference Range Interpretation Comments Occult blood (test code = 2335-8) Negative Negative Lab Interpretation (test code = 89433-0) Normal [facility], [id number] 02:03:00* Test Item Value Reference Range Interpretation Comments FECAL OCCULT BLOOD (BEAKER) (test code = 618) Negative Negative POCT-GLUCOSE [id number] 00:34:00* Test Item Value Reference Range Interpretation Comments POC-GLUCOSE METER (BEAKER) (test code = 1538) 168 mg/dL 70-110 H : TESTED AT [address], [address]: Pneumatic Tube Operator/Movie Actor ID = [id number] for RUBEN REIS Prepare Leuko-Red [id number] 23:54:00* Test Item Value Reference Range Interpretation Comments CROSSMATCH (test code = 2264) COMPATIBLE Unit ABO (test code = 3662022) A Neg UNIT NUMBER (test code = 934-0) [id number] Status (test code = 6392786) [facility] Blood [facility] Product (test code = 2263) RED BLOOD CELLS PRODUCT CODE (test code = 933-2) [id number] [facility] [id number] 17:59:00* Test Item Value Reference Range Interpretation Comments POC-GLUCOSE METER (BEAKER) (test code = 1538) 151 mg/dL 70-110 H : TESTED AT [facility] [address], [address]: Pneumatic Tube Operator/Movie Actor ID = [id number] for LORENZA GARCIA Urinalysis w/Microscopic + Reflex to [id number] 15:30:00* Test Item Value Reference Range Interpretation Comments Color, UA (test code = 5778-6) Yellow Clarity, UA (test code = 5767-9) Hazy Specific Rozet, UA (test code = 5811-5) 1.017 1.001-1.035 pH, UA (test code = 5803-2) 6.0 5.0-8.0 Protein, UA (test code = 17257-1) 70 mg/dL Negative A Glucose, UA (test code = 365) Negative Negative Ketones, UA (test code = 2514-8) Negative Negative Bilirubin, UA (test code = 13177-8) Negative Negative Blood, UA (test code = 63869-7) Moderate Negative A Nitrite, UA (test code = 5802-4) Negative Negative Leukocytes, UA (test code = 5799-2) Large Negative A Urobilinogen, UA (test code = 58387-4) 0.2 mg/dL 0.2-1 RBC, UA (test code = 52850-8) 13 /HPF WBC, UA (test code = 5821-4) 40 /HPF Bacteria, UA (test code = 07825-8) Many Mucus (test code = 8247-9) Rare Yeast (test code = 32515-8) Occasional Specimen Source (test code = 2795) ROSALIO (test code = ROSALIO) Pneumatic Tube Operator ID - [auto]Pneumatic Tube Operator ID - tech Lab Interpretation (test code = 04914-0) [facility]normal [facility] UR[facility] [id number] 15:30:00* Test Item Value Reference Range Interpretation Comments COLOR (BEAKER) (test code = 470) Yellow CLARITY (BEAKER) (test code = 469) Hazy SPECIFIC GRAVITY UA (BEAKER) (test code = 468) 1.017 1.001-1 .035 PH UA (BEAKER) (test code = 467) 6.0 5.0-8.0 PROTEIN UA (BEAKER) (test code = 464) 70 mg/dL Negative A GLUCOSE UA (BEAKER) (test code = 365) Negative Negative KETONES UA (BEAKER) (test code = 371) Negative Negative BILIRUBIN UA (BEAKER) (test code = 462) Negative Negative BLOOD UA (BEAKER) (test code = 461) Moderate Negative A NITRITE UA (BEAKER) (test code = 465) Negative Negative LEUKOCYTE ESTERASE UA (BEAKER) (test code = 466) Large Negat chris A UROBILINOGEN UA (BEAKER) (test code = 463) 0.2 mg/dL 0.2-1.0 RBC UA (BEAKER) (test code = 519) 13 /HPF WBC UA (BEAKER) (test code = 520) 40 /HPF BACTERIA (BEAKER) (test code = 517) Many MUCUS (BEAKER) (test code = 1574) Rare YEAST (BEAKER) (test code = 1585) Occasional SOURCE(BEAKER) (test code = 2795) Pneumatic Tube Operator ID - [auto]Pneumatic Tube Operator ID - techRAD, CHEST, 1 VIEW, NON [id number] 13:58:00Reason for exam:->f/u PneumoniaShould this be performed at the bedside?- >YesFINAL REPORT RAD, CHEST, 1 VIEW, NON DEPT INDICATION: f/u Pneumonia COMPARISON: Prior day's exam FINDINGS: Portable frontal view of the chest. IMPRESSION: Support Lines: Tracheostomy tip is 2 cm superior to the latasha. Lungs and pleura: Decreased bilateral interstitial thickening. No pneumothorax.Heart and mediastinum: Stable contours. Stable surgical changes.Additional findings: None. Signed: Stanford Miller MDReport Verified Date/Time: 06/10/2020 13:58:05 Reading Location: [address] Neuro Reading Room chest 1 view portable / [id number] 13:58:00Interface, External Ris In - 06/10/2020 2:00 PM CDTFINAL REPORT RAD, CHEST, 1 VIEW, NON DEPT INDICATION: f/u Pneumonia COMPARISON: Prior day's exam FINDINGS: Portable frontal view of the chest. IMPRESSION: Support Lines: Tracheostomy tip is 2 cm superior to the latasha. Lungs and pleura: Decreased bilateral interstitial thickening. No pneumothorax.Heart and mediastinum: Stable contours. Stable surgical changes.Additional findings: None. Signed: Stanford Miller MDReport Verified Date/Time: 06/10/2020 13:58:05 Reading Location: [address] Neuro Reading Room [facility] [id number] 12:12:00* Test Item Value Reference Range Interpretation Comments POC-GLUCOSE METER (BEAKER) (test code = 1538) 212 mg/dL 70-110 H : TESTED AT [facility] [address], [address]: Pneumatic Tube Operator/Movie Actor ID = [id number] for LORENZA GARCIA POCT-GLUCOSE [id number] 06:00:00* Test Item Value Reference Range Interpretation Comments POC-GLUCOSE METER (BEAKER) (test code = 1538) 160 mg/dL 70-110 H : TESTED AT [facility] [address], [address]: Pneumatic Tube Operator/Movie Actor ID = [id number] for RUBEN REIS BASIC METABOLIC [id number] 05:45:00* Test Item Value Reference Range Interpretation Comments SODIUM (BEAKER) (test code = 381) 141 meq/L 136-145 POTASSIUM (BEAKER) (test code = 379) 4.1 meq/L 3.5-5.1 CHLORIDE (BEAKER) (test code = 382) 101 meq/L 98-107 CO2 (BEAKER) (test code = 355) 33 meq/L 22-29 H BLOOD UREA NITROGEN (BEAKER) (test code = 354) 47 mg/dL 7-21 H CREATININE (BEAKER) (test code = 358) 0.96 mg/dL 0.57-1.25 GLUCOSE RANDOM (BEAKER) (test code = 652) 166 mg/dL 70-105 H CALCIUM (BEAKER) (test code = 697) 9.5 mg/dL 8.4-10.2 EGFR (BEAKER) (test code = 1092) 89 mL/min/1.73 sq m ESTIMATED GFR IS NOT ACCURATE CREATININE CLEARANCE IN PREDICTING GLOMERULAR FILTRATION RATE. ESTIMATED GFR IS NOT APPLICABLE FOR DIALYSIS PATIENTS. Pneumatic Tube Operator ID Dong HENRY IHtccrmufu4697-36-41 05:42:00* Test Item Value Reference Range Interpretation Comments Magnesium (test code = 02922-7) 2.2 mg/dL 1.6-2.6 ROSALIO (test code = ROSALIO) Pneumatic Tube Operator ID - CANDIEFOX L Lab Interpretation (test code = 07449-3) Normal [facility] 05:42:00* Test Item Value Reference Range Interpretation Comments Phosphorus (test code = 2777-1) 4.3 mg/dL 2.3-4.7 ROSALIO (test code = ROSALIO) Pneumatic Tube Operator ID - CANDIEFOX L Lab Interpretation (test code = 71381-8) Normal [facility]OS[facility]US2020-07-18 05:42:00* Test Item Value Reference Range Interpretation Comments PHOSPHORUS (BEAKER) (test code = 604) 4.3 mg/dL 2.3-4.7 Pneumatic Tube Operator ID - CANDIEFOX [id number] 05:42:00* Test Item Value Reference Range Interpretation Comments MAGNESIUM (BEAKER) (test code = 627) 2.2 mg/dL 1.6-2.6 Pneumatic Tube Operator ANDREZ HENRY LCBC W/PLT COUNT & AUTO [id number] 05:24:00* Test Item Value Reference Range Interpretation Comments WHITE BLOOD CELL COUNT (BEAKER) (test code = 775) 5.3 K/ L 3.5- 10.5 RED BLOOD CELL COUNT (BEAKER) (test code = 761) 3.56 M/ L 4.63-6 .08 L HEMOGLOBIN (BEAKER) (test code = 410) 9.4 GM/DL 13.7-17.5 L HEMATOCRIT (BEAKER) (test code = 411) 30.1 % 40.1-51.0 L MEAN CORPUSCULAR VOLUME (BEAKER) (test code = 753) 84.6 fL 79. 0-92.2 MEAN CORPUSCULAR HEMOGLOBIN (BEAKER) (test code = 751) 26.4 pg 25.7-32.2 MEAN CORPUSCULAR HEMOGLOBIN CONC (BEAKER) (test code = 752) 31.2 GM/DL 32.3-36.5 L RED CELL DISTRIBUTION WIDTH (BEAKER) (test code = 412) 15.4 % 11.6-14.4 H PLATELET COUNT (BEAKER) (test code = 756) 179 K/CU MM 150-450 MEAN PLATELET VOLUME (BEAKER) (test code = 754) 10.2 fL 9.4-12 .4 NUCLEATED RED BLOOD CELLS (BEAKER) (test code = 413) 0 /100 WBC 0 -0 NEUTROPHILS RELATIVE PERCENT (BEAKER) (test code = 429) 73 % LYMPHOCYTES RELATIVE PERCENT (BEAKER) (test code = 430) 18 % MONOCYTES RELATIVE PERCENT (BEAKER) (test code = 431) 6 % EOSINOPHILS RELATIVE PERCENT (BEAKER) (test code = 432) 3 % BASOPHILS RELATIVE PERCENT (BEAKER) (test code = 437) 0 % NEUTROPHILS ABSOLUTE COUNT (BEAKER) (test code = 670) 3.82 K/ L 1.78-5.38 LYMPHOCYTES ABSOLUTE COUNT (BEAKER) (test code = 414) 0.94 K/ L 1.32-3.57 L MONOCYTES ABSOLUTE COUNT (BEAKER) (test code = 415) 0.32 K/ L 0. 30-0.82 EOSINOPHILS ABSOLUTE COUNT (BEAKER) (test code = 416) 0.14 K/ L 0.04-0.54 BASOPHILS ABSOLUTE COUNT (BEAKER) (test code = 417) 0.02 K/ L 0. 01-0.08 IMMATURE GRANULOCYTES-RELATIVE PERCENT (BEAKER) (test code = 2801) 0 % 0-1 POCT-GLUCOSE [id number] 00:02:00* Test Item Value Reference Range Interpretation Comments POC-GLUCOSE METER (BEAKER) (test code = 1538) 155 mg/dL 70-110 H : TESTED AT [facility] [address], [address]: Pneumatic Tube Operator/Movie Actor ID = [id number] for RUBEN REIS POCT-GLUCOSE [id number] 18:24:00* Test Item Value Reference Range Interpretation Comments POC-GLUCOSE METER (BEAKER) (test code = 1538) 162 mg/dL 70-110 H : TESTED AT [facility] [address], [address]: Pneumatic Tube Operator/Movie Actor ID = [id number] for LORENZA GARCIA Type and screen, [id number] 12:56:00* Test Item Value Reference Range Interpretation Comments Ab Scrn (test code = 890-4) NEGATIVE done on echo [facility] [id number] 12:04:00* Test Item Value Reference Range Interpretation Comments POC-GLUCOSE METER (BEAKER) (test code = 1538) 175 mg/dL 70-110 H : TESTED AT [place] [id number], [address]: Pneumatic Tube Operator/Movie Actor ID = [id number] for LORENZA GARCIA BASIC METABOLIC [id number] 07:31:00* Test Item Value Reference Range Interpretation Comments SODIUM (BEAKER) (test code = 381) 141 meq/L 136-145 POTASSIUM (BEAKER) (test code = 379) 3.5 meq/L 3.5-5.1 CHLORIDE (BEAKER) (test code = 382) 107 meq/L 98-107 CO2 (BEAKER) (test code = 355) 27 meq/L 22-29 BLOOD UREA NITROGEN (BEAKER) (test code = 354) 38 mg/dL 7-21 H CREATININE (BEAKER) (test code = 358) 0.81 mg/dL 0.57-1.25 GLUCOSE RANDOM (BEAKER) (test code = 652) 156 mg/dL 70-105 H CALCIUM (BEAKER) (test code = 697) 7.6 mg/dL 8.4-10.2 L EGFR (BEAKER) (test code = 1092) 108 mL/min/1.73 sq m ESTIMATED GFR IS NOT ACCURATE CREATININE CLEARANCE IN PREDICTING GLOMERULAR FILTRATION RATE. ESTIMATED GFR IS NOT APPLICABLE FOR DIALYSIS PATIENTS. Pneumatic Tube Operator ID - ADRIA OCONNELLOCT-GLUCOSE [id number] 05:57:00* Test Item Value Reference Range Interpretation Comments POC-GLUCOSE METER (BEAKER) (test code = 1538) 184 mg/dL 70-110 H : TESTED AT [place] [id number], [address]: Pneumatic Tube Operator/Movie Actor ID = [id number] for JUAN CARLOS ARAGON CBC W/PLT COUNT & AUTO [id number] 05:15:00* Test Item Value Reference Range Interpretation Comments WHITE BLOOD CELL COUNT (BEAKER) (test code = 775) 5.4 K/ L 3.5- 10.5 RED BLOOD CELL COUNT (BEAKER) (test code = 761) 2.54 M/ L 4.63-6 .08 L HEMOGLOBIN (BEAKER) (test code = 410) 6.9 GM/DL 13.7-17.5 L HEMATOCRIT (BEAKER) (test code = 411) 22.1 % 40.1-51.0 L MEAN CORPUSCULAR VOLUME (BEAKER) (test code = 753) 87.0 fL 79. 0-92.2 MEAN CORPUSCULAR HEMOGLOBIN (BEAKER) (test code = 751) 27.2 pg 25.7-32.2 MEAN CORPUSCULAR HEMOGLOBIN CONC (BEAKER) (test code = 752) 31.2 GM/DL 32.3-36.5 L RED CELL DISTRIBUTION WIDTH (BEAKER) (test code = 412) 14.4 % 11.6-14.4 PLATELET COUNT (BEAKER) (test code = 756) 155 K/CU MM 150-450 MEAN PLATELET VOLUME (BEAKER) (test code = 754) 11.0 fL 9.4-12 .4 NUCLEATED RED BLOOD CELLS (BEAKER) (test code = 413) 0 /100 WBC 0 -0 NEUTROPHILS RELATIVE PERCENT (BEAKER) (test code = 429) 69 % LYMPHOCYTES RELATIVE PERCENT (BEAKER) (test code = 430) 19 % MONOCYTES RELATIVE PERCENT (BEAKER) (test code = 431) 9 % EOSINOPHILS RELATIVE PERCENT (BEAKER) (test code = 432) 2 % BASOPHILS RELATIVE PERCENT (BEAKER) (test code = 437) 0 % NEUTROPHILS ABSOLUTE COUNT (BEAKER) (test code = 670) 3.73 K/ L 1.78-5.38 LYMPHOCYTES ABSOLUTE COUNT (BEAKER) (test code = 414) 1.02 K/ L 1.32-3.57 L MONOCYTES ABSOLUTE COUNT (BEAKER) (test code = 415) 0.50 K/ L 0. 30-0.82 EOSINOPHILS ABSOLUTE COUNT (BEAKER) (test code = 416) 0.10 K/ L 0.04-0.54 BASOPHILS ABSOLUTE COUNT (BEAKER) (test code = 417) 0.01 K/ L 0. 01-0.08 IMMATURE GRANULOCYTES-RELATIVE PERCENT (BEAKER) (test code = 2801) 0 % 0-1 POCT-GLUCOSE [id number] 00:15:00* Test Item Value Reference Range Interpretation Comments POC-GLUCOSE METER (BEAKER) (test code = 1538) 168 mg/dL 70-110 H : TESTED AT [address], [address]: Pneumatic Tube Operator/Movie Actor ID = [id number] for JUAN CARLOS ARAGON POCT-GLUCOSE [id number] 17:45:00* Test Item Value Reference Range Interpretation Comments POC-GLUCOSE METER (BEAKER) (test code = 1538) 177 mg/dL 70-110 H : TESTED AT [address], [address]: Pneumatic Tube Operator/Movie Actor ID = [id number] for REGINALD QUIJANO POCT-GLUCOSE [id number] 11:55:00* Test Item Value Reference Range Interpretation Comments POC-GLUCOSE METER (BEAKER) (test code = 1538) 169 mg/dL 70-110 H : TESTED AT [address], [address]: Pneumatic Tube Operator/Movie Actor ID = [id number] for PETRONA LANG POCT-GLUCOSE [id number] 05:50:00* Test Item Value Reference Range Interpretation Comments POC-GLUCOSE METER (BEAKER) (test code = 1538) 145 mg/dL 70-110 H : TESTED AT [address], [address]: Pneumatic Tube Operator/Movie Actor ID = [id number] for JUAN CARLOS ARAGON BASIC METABOLIC [id number] 05:15:00* Test Item Value Reference Range Interpretation Comments SODIUM (BEAKER) (test code = 381) 145 meq/L 136-145 POTASSIUM (BEAKER) (test code = 379) 3.8 meq/L 3.5-5.1 CHLORIDE (BEAKER) (test code = 382) 109 meq/L 98-107 H CO2 (BEAKER) (test code = 355) 32 meq/L 22-29 H BLOOD UREA NITROGEN (BEAKER) (test code = 354) 48 mg/dL 7-21 H CREATININE (BEAKER) (test code = 358) 0.81 mg/dL 0.57-1.25 GLUCOSE RANDOM (BEAKER) (test code = 652) 115 mg/dL 70-105 H CALCIUM (BEAKER) (test code = 697) 8.5 mg/dL 8.4-10.2 EGFR (BEAKER) (test code = 1092) 108 mL/min/1.73 sq m ESTIMATED GFR IS NOT ACCURATE CREATININE CLEARANCE IN PREDICTING GLOMERULAR FILTRATION RATE. ESTIMATED GFR IS NOT APPLICABLE FOR DIALYSIS PATIENTS. Pneumatic Tube Operator ID - PIAYA LCBC W/PLT COUNT & AUTO [id number] 04:23:00* Test Item Value Reference Range Interpretation Comments WHITE BLOOD CELL COUNT (BEAKER) (test code = 775) 4.5 K/ L 3.5- 10.5 RED BLOOD CELL COUNT (BEAKER) (test code = 761) 2.89 M/ L 4.63-6 .08 L HEMOGLOBIN (BEAKER) (test code = 410) 7.7 GM/DL 13.7-17.5 L HEMATOCRIT (BEAKER) (test code = 411) 24.9 % 40.1-51.0 L MEAN CORPUSCULAR VOLUME (BEAKER) (test code = 753) 86.2 fL 79. 0-92.2 MEAN CORPUSCULAR HEMOGLOBIN (BEAKER) (test code = 751) 26.6 pg 25.7-32.2 MEAN CORPUSCULAR HEMOGLOBIN CONC (BEAKER) (test code = 752) 30.9 GM/DL 32.3-36.5 L RED CELL DISTRIBUTION WIDTH (BEAKER) (test code = 412) 14.4 % 11.6-14.4 PLATELET COUNT (BEAKER) (test code = 756) 172 K/CU MM 150-450 MEAN PLATELET VOLUME (BEAKER) (test code = 754) 10.8 fL 9.4-12 .4 NUCLEATED RED BLOOD CELLS (BEAKER) (test code = 413) 0 /100 WBC 0 -0 NEUTROPHILS RELATIVE PERCENT (BEAKER) (test code = 429) 64 % LYMPHOCYTES RELATIVE PERCENT (BEAKER) (test code = 430) 24 % MONOCYTES RELATIVE PERCENT (BEAKER) (test code = 431) 8 % EOSINOPHILS RELATIVE PERCENT (BEAKER) (test code = 432) 3 % BASOPHILS RELATIVE PERCENT (BEAKER) (test code = 437) 0 % NEUTROPHILS ABSOLUTE COUNT (BEAKER) (test code = 670) 2.88 K/ L 1.78-5.38 LYMPHOCYTES ABSOLUTE COUNT (BEAKER) (test code = 414) 1.09 K/ L 1.32-3.57 L MONOCYTES ABSOLUTE COUNT (BEAKER) (test code = 415) 0.36 K/ L 0. 30-0.82 EOSINOPHILS ABSOLUTE COUNT (BEAKER) (test code = 416) 0.11 K/ L 0.04-0.54 BASOPHILS ABSOLUTE COUNT (BEAKER) (test code = 417) 0.02 K/ L 0. 01-0.08 IMMATURE GRANULOCYTES-RELATIVE PERCENT (BEAKER) (test code = 2801) 0 % 0-1 POCT-GLUCOSE [id number] 23:47:00* Test Item Value Reference Range Interpretation Comments POC-GLUCOSE METER (BEAKER) (test code = 1538) 145 mg/dL 70-110 H : TESTED AT [facility] [address], [address]: Pneumatic Tube Operator/Movie Actor ID = [id number] for JUAN CARLOS ARAGON POCT-GLUCOSE [id number] 18:15:00* Test Item Value Reference Range Interpretation Comments POC-GLUCOSE METER (BEAKER) (test code = 1538) 167 mg/dL 70-110 H : TESTED AT [place] [id number] [facility], [address]: Pneumatic Tube Operator/Movie Actor ID = [id number] for SCARLETT SAWYER, BIRD, SWALLOW FUNCTION, WITH CINE OR [id number] 15:48:00Reason for exam:->tracheostomyFINAL REPORT EXAMINATION: Modified barium swallow study INDICATION: Tracheostomy. COMPARISON: None. TECHNIQUE: The examination was performed in conjunction with speech pathology. Varying consistencies of barium was administered under lateral fluoroscopic observation. Fluoroscopy time: Two minutesNumber of images: One IMPRESSION:Please refer to speech pathologist's note from same date for further description. Penetration with thin liquids. No aspiration. Delayed clearing of the pharynx with significant residual following swallow.. Signed: Paco Joseph Verified Date/Time: 06/07/2020 15:48:37 Reading Location: [address] Consult Reading Room esoph swallow funct with cine [id number] 15:48:00 Interface, External Ris In - 06/07/2020 3:50 PM CDTFINAL REPORT PATIENT ID: [id number] EXAMINATION: Modified barium swallow study INDICATION: Tracheostomy. COM PARISON: None. TECHNIQUE: The examination was performed in conjunction with [facility] pathology. Varying consistencies of barium was administered under lateral flu oroscopic observation. Fluoroscopy time: Two minutesNumber of images: One IMPRES JAIRO:Please refer to speech pathologist's note from same date for further descri ption. Penetration with thin liquids. No aspiration. Delayed clearing of the pha rynx with significant residual following swallow.. Signed: Shayy Josepheport Verified Date/Time: 06/07/2020 15:48:37 Reading Location: [address] Ortho [facility] 2020-06-[facility] 11:53:00* Test Item Value Reference Range Interpretation Comments POC-GLUCOSE METER (BEAKER) (test code = 1538) 164 mg/dL 70-110 H : TESTED AT [place] [id number] [facility], [address]: Pneumatic Tube Operator/Movie Actor ID = [id number] for SCARLETT SAWYER POCT-GLUCOSE [id number] 05:58:00* Test Item Value Reference Range Interpretation Comments POC-GLUCOSE METER (BEAKER) (test code = 1538) 167 mg/dL 70-110 H : TESTED AT [place] [id number] [facility], [address]: Pneumatic Tube Operator/Movie Actor ID = [id number] for JUAN CARLOS ARAGON [id number] 05:49:00* Test Item Value Reference Range Interpretation Comments PHOSPHORUS (BEAKER) (test code = 604) 4.8 mg/dL 2.3-4.7 H Pneumatic Tube Operator ID - ELAINE [id number] 05:49:00* Test Item Value Reference Range Interpretation Comments MAGNESIUM (BEAKER) (test code = 627) 2.1 mg/dL 1.6-2.6 Pneumatic Tube Operator ID - ELAINE LBASIC METABOLIC [id number] 05:49:00* Test Item Value Reference Range Interpretation Comments SODIUM (BEAKER) (test code = 381) 139 meq/L 136-145 POTASSIUM (BEAKER) (test code = 379) 4.1 meq/L 3.5-5.1 CHLORIDE (BEAKER) (test code = 382) 100 meq/L 98-107 CO2 (BEAKER) (test code = 355) 32 meq/L 22-29 H BLOOD UREA NITROGEN (BEAKER) (test code = 354) 49 mg/dL 7-21 H CREATININE (BEAKER) (test code = 358) 0.95 mg/dL 0.57-1.25 GLUCOSE RANDOM (BEAKER) (test code = 652) 165 mg/dL 70-105 H CALCIUM (BEAKER) (test code = 697) 9.0 mg/dL 8.4-10.2 EGFR (BEAKER) (test code = 1092) 90 mL/min/1.73 sq m ESTIMATED GFR IS NOT ACCURATE CREATININE CLEARANCE IN PREDICTING GLOMERULAR FILTRATION RATE. ESTIMATED GFR IS NOT APPLICABLE FOR DIALYSIS PATIENTS. Pneumatic Tube Operator ID - PIAYA LCBC W/PLT COUNT & AUTO [id number] 05:29:00* Test Item Value Reference Range Interpretation Comments WHITE BLOOD CELL COUNT (BEAKER) (test code = 775) 5.2 K/ L 3.5- 10.5 RED BLOOD CELL COUNT (BEAKER) (test code = 761) 3.02 M/ L 4.63-6 .08 L HEMOGLOBIN (BEAKER) (test code = 410) 8.2 GM/DL 13.7-17.5 L HEMATOCRIT (BEAKER) (test code = 411) 26.0 % 40.1-51.0 L MEAN CORPUSCULAR VOLUME (BEAKER) (test code = 753) 86.1 fL 79. 0-92.2 MEAN CORPUSCULAR HEMOGLOBIN (BEAKER) (test code = 751) 27.2 pg 25.7-32.2 MEAN CORPUSCULAR HEMOGLOBIN CONC (BEAKER) (test code = 752) 31.5 GM/DL 32.3-36.5 L RED CELL DISTRIBUTION WIDTH (BEAKER) (test code = 412) 14.6 % 11.6-14.4 H PLATELET COUNT (BEAKER) (test code = 756) 172 K/CU MM 150-450 MEAN PLATELET VOLUME (BEAKER) (test code = 754) 10.6 fL 9.4-12 .4 NUCLEATED RED BLOOD CELLS (BEAKER) (test code = 413) 0 /100 WBC 0 -0 NEUTROPHILS RELATIVE PERCENT (BEAKER) (test code = 429) 70 % LYMPHOCYTES RELATIVE PERCENT (BEAKER) (test code = 430) 19 % MONOCYTES RELATIVE PERCENT (BEAKER) (test code = 431) 7 % EOSINOPHILS RELATIVE PERCENT (BEAKER) (test code = 432) 3 % BASOPHILS RELATIVE PERCENT (BEAKER) (test code = 437) 0 % NEUTROPHILS ABSOLUTE COUNT (BEAKER) (test code = 670) 3.66 K/ L 1.78-5.38 LYMPHOCYTES ABSOLUTE COUNT (BEAKER) (test code = 414) 0.99 K/ L 1.32-3.57 L MONOCYTES ABSOLUTE COUNT (BEAKER) (test code = 415) 0.36 K/ L 0. 30-0.82 EOSINOPHILS ABSOLUTE COUNT (BEAKER) (test code = 416) 0.18 K/ L 0.04-0.54 BASOPHILS ABSOLUTE COUNT (BEAKER) (test code = 417) 0.01 K/ L 0. 01-0.08 IMMATURE GRANULOCYTES-RELATIVE PERCENT (BEAKER) (test code = 2801) 0 % 0-1 POCT-GLUCOSE [id number] 00:12:00* Test Item Value Reference Range Interpretation Comments POC-GLUCOSE METER (BEAKER) (test code = 1538) 163 mg/dL 70-110 H : Notified RN/MD: TESTED AT [address], [address]: Pneumatic Tube Operator/Movie Actor ID = [id number] for WARRENJUAN CARLOS CHRISTOPHER POCT-GLUCOSE [id number] 17:54:00* Test Item Value Reference Range Interpretation Comments POC-GLUCOSE METER (BEAKER) (test code = 1538) 139 mg/dL 70-110 H : TESTED AT [address], [address]: Pneumatic Tube Operator/Movie Actor ID = [id number] for REGINALD QUIJANO POCT-GLUCOSE [id number] 13:07:00* Test Item Value Reference Range Interpretation Comments POC-GLUCOSE METER (BEAKER) (test code = 1538) 163 mg/dL 70-110 H : TESTED AT [address], [address]: Pneumatic Tube Operator/Movie Actor ID = [id number] for REGINALD QUIJANO POCT-GLUCOSE [id number] 06:08:00* Test Item Value Reference Range Interpretation Comments POC-GLUCOSE METER (BEAKER) (test code = 1538) 130 mg/dL 70-110 H : TESTED AT [facility] [address], [address]: Pneumatic Tube Operator/Movie Actor ID = [id number] for SHAYE PINEDA BASIC METABOLIC [id number] 04:50:00* Test Item Value Reference Range Interpretation Comments SODIUM (BEAKER) (test code = 381) 140 meq/L 136-145 POTASSIUM (BEAKER) (test code = 379) 4.4 meq/L 3.5-5.1 CHLORIDE (BEAKER) (test code = 382) 101 meq/L 98-107 CO2 (BEAKER) (test code = 355) 34 meq/L 22-29 H BLOOD UREA NITROGEN (BEAKER) (test code = 354) 47 mg/dL 7-21 H CREATININE (BEAKER) (test code = 358) 0.93 mg/dL 0.57-1.25 GLUCOSE RANDOM (BEAKER) (test code = 652) 128 mg/dL 70-105 H CALCIUM (BEAKER) (test code = 697) 9.5 mg/dL 8.4-10.2 EGFR (BEAKER) (test code = 1092) 92 mL/min/1.73 sq m ESTIMATED GFR IS NOT ACCURATE CREATININE CLEARANCE IN PREDICTING GLOMERULAR FILTRATION RATE. ESTIMATED GFR IS NOT APPLICABLE FOR DIALYSIS PATIENTS. Pneumatic Tube Operator ID - RUEL WCBC W/PLT COUNT & AUTO [id number] 04:35:00* Test Item Value Reference Range Interpretation Comments WHITE BLOOD CELL COUNT (BEAKER) (test code = 775) 4.9 K/ L 3.5- 10.5 RED BLOOD CELL COUNT (BEAKER) (test code = 761) 2.99 M/ L 4.63-6 .08 L HEMOGLOBIN (BEAKER) (test code = 410) 8.1 GM/DL 13.7-17.5 L HEMATOCRIT (BEAKER) (test code = 411) 25.7 % 40.1-51.0 L MEAN CORPUSCULAR VOLUME (BEAKER) (test code = 753) 86.0 fL 79. 0-92.2 MEAN CORPUSCULAR HEMOGLOBIN (BEAKER) (test code = 751) 27.1 pg 25.7-32.2 MEAN CORPUSCULAR HEMOGLOBIN CONC (BEAKER) (test code = 752) 31.5 GM/DL 32.3-36.5 L RED CELL DISTRIBUTION WIDTH (BEAKER) (test code = 412) 14.6 % 11.6-14.4 H PLATELET COUNT (BEAKER) (test code = 756) 204 K/CU MM 150-450 MEAN PLATELET VOLUME (BEAKER) (test code = 754) 10.4 fL 9.4-12 .4 NUCLEATED RED BLOOD CELLS (BEAKER) (test code = 413) 0 /100 WBC 0 -0 NEUTROPHILS RELATIVE PERCENT (BEAKER) (test code = 429) 63 % LYMPHOCYTES RELATIVE PERCENT (BEAKER) (test code = 430) 23 % MONOCYTES RELATIVE PERCENT (BEAKER) (test code = 431) 8 % EOSINOPHILS RELATIVE PERCENT (BEAKER) (test code = 432) 5 % BASOPHILS RELATIVE PERCENT (BEAKER) (test code = 437) 0 % NEUTROPHILS ABSOLUTE COUNT (BEAKER) (test code = 670) 3.12 K/ L 1.78-5.38 LYMPHOCYTES ABSOLUTE COUNT (BEAKER) (test code = 414) 1.15 K/ L 1.32-3.57 L MONOCYTES ABSOLUTE COUNT (BEAKER) (test code = 415) 0.40 K/ L 0. 30-0.82 EOSINOPHILS ABSOLUTE COUNT (BEAKER) (test code = 416) 0.22 K/ L 0.04-0.54 BASOPHILS ABSOLUTE COUNT (BEAKER) (test code = 417) 0.02 K/ L 0. 01-0.08 IMMATURE GRANULOCYTES-RELATIVE PERCENT (BEAKER) (test code = 2801) 0 % 0-1 POCT-GLUCOSE [id number] 23:41:00* Test Item Value Reference Range Interpretation Comments POC-GLUCOSE METER (BEAKER) (test code = 1538) 130 mg/dL 70-110 H : TESTED AT [address], [address]: Pneumatic Tube Operator/Movie Actor ID = [id number] for SHAYE PINEDA POCT-GLUCOSE [id number] 18:35:00* Test Item Value Reference Range Interpretation Comments POC-GLUCOSE METER (BEAKER) (test code = 1538) 191 mg/dL 70-110 H : TESTED AT [address], [address]: Pneumatic Tube Operator/Movie Actor ID = [id number] for LORENZA GARCIA [employer] culture + smear (non-sputum)2020-06-05 12:22:00* Test Item Value Reference Range Interpretation Comments Result (test code = 6463-4) No acid-fast bacilli isolated in 42 day s AFB Smear (test code = 50302-1) [facility]2020-06-05 12:22:00 * Test Item Value Reference Range Interpretation Comments CULTURE (BEAKER) (test code = 1095) No acid-fast bacilli isolate d in 42 days AFB SMEAR (BEAKER) (test code = 994) No acid fast bacilli seen POCT-GLUCOSE [id number] 11:53:00* Test Item Value Reference Range Interpretation Comments POC-GLUCOSE METER (BEAKER) (test code = 1538) 172 mg/dL 70-110 H : TESTED AT [address], [address]: Pneumatic Tube Operator/Movie Actor ID = [id number] for LORENZA GARCIA CBC W/PLT COUNT & AUTO [id number] 06:19:00* Test Item Value Reference Range Interpretation Comments WHITE BLOOD CELL COUNT (BEAKER) (test code = 775) 6.3 K/ L 3.5- 10.5 RED BLOOD CELL COUNT (BEAKER) (test code = 761) 3.04 M/ L 4.63-6 .08 L HEMOGLOBIN (BEAKER) (test code = 410) 8.4 GM/DL 13.7-17.5 L HEMATOCRIT (BEAKER) (test code = 411) 26.5 % 40.1-51.0 L MEAN CORPUSCULAR VOLUME (BEAKER) (test code = 753) 87.2 fL 79. 0-92.2 MEAN CORPUSCULAR HEMOGLOBIN (BEAKER) (test code = 751) 27.6 pg 25.7-32.2 MEAN CORPUSCULAR HEMOGLOBIN CONC (BEAKER) (test code = 752) 31.7 GM/DL 32.3-36.5 L RED CELL DISTRIBUTION WIDTH (BEAKER) (test code = 412) 14.8 % 11.6-14.4 H PLATELET COUNT (BEAKER) (test code = 756) 190 K/CU MM 150-450 MEAN PLATELET VOLUME (BEAKER) (test code = 754) 10.5 fL 9.4-12 .4 NUCLEATED RED BLOOD CELLS (BEAKER) (test code = 413) 0 /100 WBC 0 -0 NEUTROPHILS RELATIVE PERCENT (BEAKER) (test code = 429) 68 % LYMPHOCYTES RELATIVE PERCENT (BEAKER) (test code = 430) 22 % MONOCYTES RELATIVE PERCENT (BEAKER) (test code = 431) 6 % EOSINOPHILS RELATIVE PERCENT (BEAKER) (test code = 432) 3 % BASOPHILS RELATIVE PERCENT (BEAKER) (test code = 437) 1 % NEUTROPHILS ABSOLUTE COUNT (BEAKER) (test code = 670) 4.29 K/ L 1.78-5.38 LYMPHOCYTES ABSOLUTE COUNT (BEAKER) (test code = 414) 1.36 K/ L 1.32-3.57 MONOCYTES ABSOLUTE COUNT (BEAKER) (test code = 415) 0.36 K/ L 0. 30-0.82 EOSINOPHILS ABSOLUTE COUNT (BEAKER) (test code = 416) 0.21 K/ L 0.04-0.54 BASOPHILS ABSOLUTE COUNT (BEAKER) (test code = 417) 0.03 K/ L 0. 01-0.08 IMMATURE GRANULOCYTES-RELATIVE PERCENT (BEAKER) (test code = 2801) 1 % 0-1 POCT-GLUCOSE [id number] 05:40:00* Test Item Value Reference Range Interpretation Comments POC-GLUCOSE METER (BEAKER) (test code = 1538) 147 mg/dL 70-110 H : TESTED AT [place] [id number] [facility], [address]: Pneumatic Tube Operator/Movie Actor ID = [id number] for [facility] BASIC METABOLIC [id number] 05:05:00* Test Item Value Reference Range Interpretation Comments SODIUM (BEAKER) (test code = 381) 138 meq/L 136-145 POTASSIUM (BEAKER) (test code = 379) 4.1 meq/L 3.5-5.1 CHLORIDE (BEAKER) (test code = 382) 102 meq/L 98-107 CO2 (BEAKER) (test code = 355) 30 meq/L 22-29 H BLOOD UREA NITROGEN (BEAKER) (test code = 354) 43 mg/dL 7-21 H CREATININE (BEAKER) (test code = 358) 0.94 mg/dL 0.57-1.25 GLUCOSE RANDOM (BEAKER) (test code = 652) 171 mg/dL 70-105 H CALCIUM (BEAKER) (test code = 697) 9.5 mg/dL 8.4-10.2 EGFR (BEAKER) (test code = 1092) 91 mL/min/1.73 sq m ESTIMATED GFR IS NOT ACCURATE CREATININE CLEARANCE IN PREDICTING GLOMERULAR FILTRATION RATE. ESTIMATED GFR IS NOT APPLICABLE FOR DIALYSIS PATIENTS. Pneumatic Tube Operator ANDREZ HENRY LPOCT-GLUCOSE [id number] 23:46:00* Test Item Value Reference Range Interpretation Comments POC-GLUCOSE METER (BEAKER) (test code = 1538) 139 mg/dL 70-110 H : TESTED AT [address], [address]: Pneumatic Tube Operator/Movie Actor ID = [id number] for JUAN CARLOS ARAGON POCT-GLUCOSE [id number] 18:25:00* Test Item Value Reference Range Interpretation Comments POC-GLUCOSE METER (BEAKER) (test code = 1538) 170 mg/dL 70-110 H : TESTED AT [address], [address]: Pneumatic Tube Operator/Movie Actor ID = [id number] for SCARLETT SAWYER POCT-GLUCOSE [id number] 11:44:00* Test Item Value Reference Range Interpretation Comments POC-GLUCOSE METER (BEAKER) (test code = 1538) 174 mg/dL 70-110 H : TESTED AT [place] [id number] [facility], [address]: Pneumatic Tube Operator/Movie Actor ID = [id number] for VIOLETTE SAWYERLA [id number] 08:24:00* Test Item Value Reference Range Interpretation Comments PHOSPHORUS (BEAKER) (test code = 604) 4.3 mg/dL 2.3-4.7 Pneumatic Tube Operator ANDREZ HENRY [id number] 08:24:00* Test Item Value Reference Range Interpretation Comments MAGNESIUM (BEAKER) (test code = 627) 2.1 mg/dL 1.6-2.6 Pneumatic Tube Operator ANDREZ HENRY LBASIC METABOLIC [id number] 08:24:00* Test Item Value Reference Range Interpretation Comments SODIUM (BEAKER) (test code = 381) 137 meq/L 136-145 POTASSIUM (BEAKER) (test code = 379) 4.0 meq/L 3.5-5.1 CHLORIDE (BEAKER) (test code = 382) 101 meq/L 98-107 CO2 (BEAKER) (test code = 355) 31 meq/L 22-29 H BLOOD UREA NITROGEN (BEAKER) (test code = 354) 39 mg/dL 7-21 H CREATININE (BEAKER) (test code = 358) 1.01 mg/dL 0.57-1.25 GLUCOSE RANDOM (BEAKER) (test code = 652) 155 mg/dL 70-105 H CALCIUM (BEAKER) (test code = 697) 9.5 mg/dL 8.4-10.2 EGFR (BEAKER) (test code = 1092) 84 mL/min/1.73 sq m ESTIMATED GFR IS NOT ACCURATE CREATININE CLEARANCE IN PREDICTING GLOMERULAR FILTRATION RATE. ESTIMATED GFR IS NOT APPLICABLE FOR DIALYSIS PATIENTS. Pneumatic Tube Operator ID - PIAYA LCBC W/PLT COUNT & AUTO [id number] 07:48:00* Test Item Value Reference Range Interpretation Comments WHITE BLOOD CELL COUNT (BEAKER) (test code = 775) 6.2 K/ L 3.5- 10.5 RED BLOOD CELL COUNT (BEAKER) (test code = 761) 3.16 M/ L 4.63-6 .08 L HEMOGLOBIN (BEAKER) (test code = 410) 8.7 GM/DL 13.7-17.5 L HEMATOCRIT (BEAKER) (test code = 411) 27.7 % 40.1-51.0 L MEAN CORPUSCULAR VOLUME (BEAKER) (test code = 753) 87.7 fL 79. 0-92.2 MEAN CORPUSCULAR HEMOGLOBIN (BEAKER) (test code = 751) 27.5 pg 25.7-32.2 MEAN CORPUSCULAR HEMOGLOBIN CONC (BEAKER) (test code = 752) 31.4 GM/DL 32.3-36.5 L RED CELL DISTRIBUTION WIDTH (BEAKER) (test code = 412) 14.7 % 11.6-14.4 H PLATELET COUNT (BEAKER) (test code = 756) 216 K/CU MM 150-450 MEAN PLATELET VOLUME (BEAKER) (test code = 754) 10.6 fL 9.4-12 .4 NUCLEATED RED BLOOD CELLS (BEAKER) (test code = 413) 0 /100 WBC 0 -0 NEUTROPHILS RELATIVE PERCENT (BEAKER) (test code = 429) 70 % LYMPHOCYTES RELATIVE PERCENT (BEAKER) (test code = 430) 18 % MONOCYTES RELATIVE PERCENT (BEAKER) (test code = 431) 8 % EOSINOPHILS RELATIVE PERCENT (BEAKER) (test code = 432) 3 % BASOPHILS RELATIVE PERCENT (BEAKER) (test code = 437) 1 % NEUTROPHILS ABSOLUTE COUNT (BEAKER) (test code = 670) 4.32 K/ L 1.78-5.38 LYMPHOCYTES ABSOLUTE COUNT (BEAKER) (test code = 414) 1.11 K/ L 1.32-3.57 L MONOCYTES ABSOLUTE COUNT (BEAKER) (test code = 415) 0.49 K/ L 0. 30-0.82 EOSINOPHILS ABSOLUTE COUNT (BEAKER) (test code = 416) 0.18 K/ L 0.04-0.54 BASOPHILS ABSOLUTE COUNT (BEAKER) (test code = 417) 0.04 K/ L 0. 01-0.08 IMMATURE GRANULOCYTES-RELATIVE PERCENT (BEAKER) (test code = 2801) 1 % 0-1 POCT-GLUCOSE [id number] 23:48:00* Test Item Value Reference Range Interpretation Comments POC-GLUCOSE METER (BEAKER) (test code = 1538) 175 mg/dL 70-110 H : TESTED AT 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 Negative result for this test determines that SARS-CoV-2 RNA was not present in the specimen above the Limit of Detection (LOD). However, Negative results do n ot preclude SARS-CoV-2 infection and should not be used as the sole basis for tr eatment or patient management decisions. Negative results must be combined with clinical observations, patient history, and epidemiological information. A false negative result may occur if a specimen is improperly collected, transported or handled. A false negative result should be considered if patient's recent expo sures or clinical presentation indicate that COVID-19 (SARS-CoV-2) is likely and diagnostic tests for other causes of illness are negative. Re-testing should b e considered in cases of suspected false negatives.The limit of detection for is assay is 800 copies/mL.This SARS CoV-2 test is a real-time RT-PCR test intend ed for the qualitative detection of nucleic acid from SARS-CoV-2 in a nasopharyn geal swab specimen collected from individuals suspected of COVID-19 by their [facility] provider.This test has not been Food and Drug Administration (FDA) clear ed or approved. This is a modified version of an approved Emergency Use Authori zation (EUA) and is in the process of review by the FDA. Once authorized by [facility], the issued EUA will be effective until the declaration that circumstances exist justifying the authorization of the emergency use of in vitro diagnostic tests for detection and/or diagnosis of COVID-19 is terminated under Section 564 (b)(2) of the Act or the EUA is revoked under Section 564(g) of the Act.Fact She et for Healthcare Providers:https://www.[employer]/sites/default/files/product/d ocuments/Taeg_Krpyx_JA_Vowbhnwfk_Zkzy_UNVY-HtW-0.pdfFact Sheet for Healthcare Pa rj:https://www.[employer]/sites/default/files/product/documents/Fact_Sheet_P ptlmkab_Lbfv_UJXO-TcW-6.pdfPerforming Laboratory:[address], [place] [address]JCXE-LXOYJFP [id number] 18:15:00* Test Item Value Reference Range Interpretation Comments POC-GLUCOSE METER (BEAKER) (test code = 1538) 167 mg/dL 70-110 H : TESTED AT [address], [address]: Pneumatic Tube Operator/Movie Actor ID = [id number] for SCARLETT SAWYER POCT-GLUCOSE [id number] 12:07:00* Test Item Value Reference Range Interpretation Comments POC-GLUCOSE METER (BEAKER) (test code = 1538) 159 mg/dL 70-110 H : TESTED AT [address], [address]: Pneumatic Tube Operator/Movie Actor ID = [id number] for SCARLETT SAWYER BASIC METABOLIC [id number] 07:31:00* Test Item Value Reference Range Interpretation Comments SODIUM (BEAKER) (test code = 381) 136 meq/L 136-145 POTASSIUM (BEAKER) (test code = 379) 4.2 meq/L 3.5-5.1 CHLORIDE (BEAKER) (test code = 382) 102 meq/L 98-107 CO2 (BEAKER) (test code = 355) 28 meq/L 22-29 BLOOD UREA NITROGEN (BEAKER) (test code = 354) 36 mg/dL 7-21 H CREATININE (BEAKER) (test code = 358) 0.92 mg/dL 0.57-1.25 GLUCOSE RANDOM (BEAKER) (test code = 652) 184 mg/dL 70-105 H CALCIUM (BEAKER) (test code = 697) 9.4 mg/dL 8.4-10.2 EGFR (BEAKER) (test code = 1092) 94 mL/min/1.73 sq m ESTIMATED GFR IS NOT ACCURATE CREATININE CLEARANCE IN PREDICTING GLOMERULAR FILTRATION RATE. ESTIMATED GFR IS NOT APPLICABLE FOR DIALYSIS PATIENTS. Pneumatic Tube Operator ID - PIAYA LCBC W/PLT COUNT & AUTO [id number] 06:17:00* Test Item Value Reference Range Interpretation Comments WHITE BLOOD CELL COUNT (BEAKER) (test code = 775) 5.3 K/ L 3.5- 10.5 RED BLOOD CELL COUNT (BEAKER) (test code = 761) 3.20 M/ L 4.63-6 .08 L HEMOGLOBIN (BEAKER) (test code = 410) 8.8 GM/DL 13.7-17.5 L HEMATOCRIT (BEAKER) (test code = 411) 27.7 % 40.1-51.0 L MEAN CORPUSCULAR VOLUME (BEAKER) (test code = 753) 86.6 fL 79. 0-92.2 MEAN CORPUSCULAR HEMOGLOBIN (BEAKER) (test code = 751) 27.5 pg 25.7-32.2 MEAN CORPUSCULAR HEMOGLOBIN CONC (BEAKER) (test code = 752) 31.8 GM/DL 32.3-36.5 L RED CELL DISTRIBUTION WIDTH (BEAKER) (test code = 412) 14.6 % 11.6-14.4 H PLATELET COUNT (BEAKER) (test code = 756) 238 K/CU MM 150-450 MEAN PLATELET VOLUME (BEAKER) (test code = 754) 10.1 fL 9.4-12 .4 NUCLEATED RED BLOOD CELLS (BEAKER) (test code = 413) 0 /100 WBC 0 -0 NEUTROPHILS RELATIVE PERCENT (BEAKER) (test code = 429) 66 % LYMPHOCYTES RELATIVE PERCENT (BEAKER) (test code = 430) 23 % MONOCYTES RELATIVE PERCENT (BEAKER) (test code = 431) 8 % EOSINOPHILS RELATIVE PERCENT (BEAKER) (test code = 432) 3 % BASOPHILS RELATIVE PERCENT (BEAKER) (test code = 437) 1 % NEUTROPHILS ABSOLUTE COUNT (BEAKER) (test code = 670) 3.50 K/ L 1.78-5.38 LYMPHOCYTES ABSOLUTE COUNT (BEAKER) (test code = 414) 1.20 K/ L 1.32-3.57 L MONOCYTES ABSOLUTE COUNT (BEAKER) (test code = 415) 0.42 K/ L 0. 30-0.82 EOSINOPHILS ABSOLUTE COUNT (BEAKER) (test code = 416) 0.14 K/ L 0.04-0.54 BASOPHILS ABSOLUTE COUNT (BEAKER) (test code = 417) 0.04 K/ L 0. 01-0.08 IMMATURE GRANULOCYTES-RELATIVE PERCENT (BEAKER) (test code = 2801) 0 % 0-1 POCT-GLUCOSE [id number] 00:06:00* Test Item Value Reference Range Interpretation Comments POC-GLUCOSE METER (BEAKER) (test code = 1538) 142 mg/dL 70-110 H : TESTED AT [address], [address]: Pneumatic Tube Operator/Movie Actor ID = [id number] for SHAYE PINEDA POCT-GLUCOSE [id number] 18:40:00* Test Item Value Reference Range Interpretation Comments POC-GLUCOSE METER (BEAKER) (test code = 1538) 192 mg/dL 70-110 H : TESTED AT [address], [address]: Pneumatic Tube Operator/Movie Actor ID = [id number] for LORENZA GARCIA POCT-GLUCOSE [id number] 11:36:00* Test Item Value Reference Range Interpretation Comments POC-GLUCOSE METER (BEAKER) (test code = 1538) 173 mg/dL 70-110 H : TESTED AT [facility] [address] [facility], [address]: Pneumatic Tube Operator/Movie Actor ID = [id number] for LORENZA GARCIA POCT-GLUCOSE [id number] 05:34:00* Test Item Value Reference Range Interpretation Comments POC-GLUCOSE METER (BEAKER) (test code = 1538) 163 mg/dL 70-110 H : TESTED AT [facility] [address] [facility], [address]: Pneumatic Tube Operator/Movie Actor ID = [id number] for RUBEN REIS BASIC METABOLIC [id number] 04:57:00* Test Item Value Reference Range Interpretation Comments SODIUM (BEAKER) (test code = 381) 136 meq/L 136-145 POTASSIUM (BEAKER) (test code = 379) 4.2 meq/L 3.5-5.1 CHLORIDE (BEAKER) (test code = 382) 103 meq/L 98-107 CO2 (BEAKER) (test code = 355) 27 meq/L 22-29 BLOOD UREA NITROGEN (BEAKER) (test code = 354) 38 mg/dL 7-21 H CREATININE (BEAKER) (test code = 358) 0.97 mg/dL 0.57-1.25 GLUCOSE RANDOM (BEAKER) (test code = 652) 159 mg/dL 70-105 H CALCIUM (BEAKER) (test code = 697) 9.7 mg/dL 8.4-10.2 EGFR (BEAKER) (test code = 1092) 88 mL/min/1.73 sq m ESTIMATED GFR IS NOT ACCURATE CREATININE CLEARANCE IN PREDICTING GLOMERULAR FILTRATION RATE. ESTIMATED GFR IS NOT APPLICABLE FOR DIALYSIS PATIENTS. Pneumatic Tube Operator ID - LACBC W/PLT COUNT & AUTO [id number] 04:41:00* Test Item Value Reference Range Interpretation Comments WHITE BLOOD CELL COUNT (BEAKER) (test code = 775) 5.5 K/ L 3.5- 10.5 RED BLOOD CELL COUNT (BEAKER) (test code = 761) 3.15 M/ L 4.63-6 .08 L HEMOGLOBIN (BEAKER) (test code = 410) 8.6 GM/DL 13.7-17.5 L HEMATOCRIT (BEAKER) (test code = 411) 27.1 % 40.1-51.0 L MEAN CORPUSCULAR VOLUME (BEAKER) (test code = 753) 86.0 fL 79. 0-92.2 MEAN CORPUSCULAR HEMOGLOBIN (BEAKER) (test code = 751) 27.3 pg 25.7-32.2 MEAN CORPUSCULAR HEMOGLOBIN CONC (BEAKER) (test code = 752) 31.7 GM/DL 32.3-36.5 L RED CELL DISTRIBUTION WIDTH (BEAKER) (test code = 412) 14.6 % 11.6-14.4 H PLATELET COUNT (BEAKER) (test code = 756) 257 K/CU MM 150-450 MEAN PLATELET VOLUME (BEAKER) (test code = 754) 10.3 fL 9.4-12 .4 NUCLEATED RED BLOOD CELLS (BEAKER) (test code = 413) 0 /100 WBC 0 -0 NEUTROPHILS RELATIVE PERCENT (BEAKER) (test code = 429) 67 % LYMPHOCYTES RELATIVE PERCENT (BEAKER) (test code = 430) 21 % MONOCYTES RELATIVE PERCENT (BEAKER) (test code = 431) 9 % EOSINOPHILS RELATIVE PERCENT (BEAKER) (test code = 432) 2 % BASOPHILS RELATIVE PERCENT (BEAKER) (test code = 437) 0 % NEUTROPHILS ABSOLUTE COUNT (BEAKER) (test code = 670) 3.70 K/ L 1.78-5.38 LYMPHOCYTES ABSOLUTE COUNT (BEAKER) (test code = 414) 1.16 K/ L 1.32-3.57 L MONOCYTES ABSOLUTE COUNT (BEAKER) (test code = 415) 0.49 K/ L 0. 30-0.82 EOSINOPHILS ABSOLUTE COUNT (BEAKER) (test code = 416) 0.12 K/ L 0.04-0.54 BASOPHILS ABSOLUTE COUNT (BEAKER) (test code = 417) 0.02 K/ L 0. 01-0.08 IMMATURE GRANULOCYTES-RELATIVE PERCENT (BEAKER) (test code = 2801) 0 % 0-1 POCT-GLUCOSE [id number] 23:40:00* Test Item Value Reference Range Interpretation Comments POC-GLUCOSE METER (BEAKER) (test code = 1538) 169 mg/dL 70-110 H : TESTED AT [address], [address]: Pneumatic Tube Operator/Movie Actor ID = [id number] for RUBEN REIS POCT-GLUCOSE [id number] 12:09:00* Test Item Value Reference Range Interpretation Comments POC-GLUCOSE METER (BEAKER) (test code = 1538) 181 mg/dL 70-110 H : TESTED AT [facility] [address] [place], [address]: Pneumatic Tube Operator/Movie Actor ID = [id number] for ISA ABRAMS [id number] 10:50:00* Test Item Value Reference Range Interpretation Comments PROCALCITONIN (BEAKER) (test code = 3036) 0.06 ng/mL <0.05 H SEPSIS RISK (ng/mL)Low: 0.05-0.50Intermediate: 0.51-2.00High: > =[id number] 10:40:00* Test Item Value Reference Range Interpretation Comments FERRITIN (BEAKER) (test code = 361) 1503.99 ng/mL 5.00-275.00 H Pneumatic Tube Operator ID - [id number] 08:11:00* Test Item Value Reference Range Interpretation Comments PHOSPHORUS (BEAKER) (test code = 604) 3.2 mg/dL 2.3-4.7 Pneumatic Tube Operator ID - [id number] 08:11:00* Test Item Value Reference Range Interpretation Comments MAGNESIUM (BEAKER) (test code = 627) 2.1 mg/dL 1.6-2.6 Pneumatic Tube Operator ID - BSCOMPREHENSIVE METABOLIC [id number] 08:11:00* Test Item Value Reference Range Interpretation Comments TOTAL PROTEIN (BEAKER) (test code = 770) 8.7 gm/dL 6.0-8.3 H ALBUMIN (BEAKER) (test code = 1145) 2.9 g/dL 3.5-5.0 L ALKALINE PHOSPHATASE (BEAKER) (test code = 346) 463 U/L 40-150 H BILIRUBIN TOTAL (BEAKER) (test code = 377) 0.3 mg/dL 0.2-1.2 SODIUM (BEAKER) (test code = 381) 134 meq/L 136-145 L POTASSIUM (BEAKER) (test code = 379) 4.3 meq/L 3.5-5.1 CHLORIDE (BEAKER) (test code = 382) 103 meq/L 98-107 CO2 (BEAKER) (test code = 355) 25 meq/L 22-29 BLOOD UREA NITROGEN (BEAKER) (test code = 354) 35 mg/dL 7-21 H CREATININE (BEAKER) (test code = 358) 1.03 mg/dL 0.57-1.25 GLUCOSE RANDOM (BEAKER) (test code = 652) 138 mg/dL 70-105 H CALCIUM (BEAKER) (test code = 697) 9.4 mg/dL 8.4-10.2 AST (SGOT) (BEAKER) (test code = 353) 42 U/L 5-34 H ALT (SGPT) (BEAKER) (test code = 347) 69 U/L 6-55 H EGFR (BEAKER) (test code = 1092) 82 mL/min/1.73 sq m ESTIMATED GFR IS NOT ACCURATE CREATININE CLEARANCE IN PREDICTING GLOMERULAR FILTRATION RATE. ESTIMATED GFR IS NOT APPLICABLE FOR DIALYSIS PATIENTS. Pneumatic Tube Operator ID - BSC-REACTIVE [id number] 08:11:00* Test Item Value Reference Range Interpretation Comments C-REACTIVE PROTEIN (BEAKER) (test code = 676) 1.79 mg/dL 0.00-0.5 0 H Pneumatic Tube Operator ID - [id number] 06:41:00* Test Item Value Reference Range Interpretation Comments D-DIMER QUANTITATIVE (BEAKER) (test code = 671) 1.89 MG/L FEU <0.50 H Intended Use: The D-Dimer Assay can be used to aid in the diagnosis of Deep Vein Thrombosis (DVT) and Pulmonary Embolism Disease (PED).In patients with low pre- test probability, various studies concerning STA Liatest D-dimer test have repor yeyo that with a cutoff value of 0.50 MG/L FEU, the Negative Predictive Value (CLERK OF WORKS V) regarding the exclusion of thrombosis is within 95-100% range.Fibrinogen 2020-06-01 06:38:00* Test Item Value Reference Range Interpretation Comments Fibrinogen (test code = 3255-7) 457 mg/dl 225-434 H Lab Interpretation (test code = 72131-6) [facility]normal [id number] 06:38:00* Test Item Value Reference Range Interpretation Comments FIBRINOGEN LEVEL (BEAKER) (test code = 658) 457 mg/dl 225-434 H CBC W/PLT COUNT & AUTO [id number] 06:36:00* Test Item Value Reference Range Interpretation Comments WHITE BLOOD CELL COUNT (BEAKER) (test code = 775) 5.1 K/ L 3.5- 10.5 RED BLOOD CELL COUNT (BEAKER) (test code = 761) 3.05 M/ L 4.63-6 .08 L HEMOGLOBIN (BEAKER) (test code = 410) 8.3 GM/DL 13.7-17.5 L HEMATOCRIT (BEAKER) (test code = 411) 26.2 % 40.1-51.0 L MEAN CORPUSCULAR VOLUME (BEAKER) (test code = 753) 85.9 fL 79. 0-92.2 MEAN CORPUSCULAR HEMOGLOBIN (BEAKER) (test code = 751) 27.2 pg 25.7-32.2 MEAN CORPUSCULAR HEMOGLOBIN CONC (BEAKER) (test code = 752) 31.7 GM/DL 32.3-36.5 L RED CELL DISTRIBUTION WIDTH (BEAKER) (test code = 412) 14.6 % 11.6-14.4 H PLATELET COUNT (BEAKER) (test code = 756) 308 K/CU MM 150-450 MEAN PLATELET VOLUME (BEAKER) (test code = 754) 10.2 fL 9.4-12 .4 NUCLEATED RED BLOOD CELLS (BEAKER) (test code = 413) 0 /100 WBC 0 -0 NEUTROPHILS RELATIVE PERCENT (BEAKER) (test code = 429) 67 % LYMPHOCYTES RELATIVE PERCENT (BEAKER) (test code = 430) 21 % MONOCYTES RELATIVE PERCENT (BEAKER) (test code = 431) 9 % EOSINOPHILS RELATIVE PERCENT (BEAKER) (test code = 432) 3 % BASOPHILS RELATIVE PERCENT (BEAKER) (test code = 437) 0 % NEUTROPHILS ABSOLUTE COUNT (BEAKER) (test code = 670) 3.37 K/ L 1.78-5.38 LYMPHOCYTES ABSOLUTE COUNT (BEAKER) (test code = 414) 1.08 K/ L 1.32-3.57 L MONOCYTES ABSOLUTE COUNT (BEAKER) (test code = 415) 0.43 K/ L 0. 30-0.82 EOSINOPHILS ABSOLUTE COUNT (BEAKER) (test code = 416) 0.13 K/ L 0.04-0.54 BASOPHILS ABSOLUTE COUNT (BEAKER) (test code = 417) 0.02 K/ L 0. 01-0.08 IMMATURE GRANULOCYTES-RELATIVE PERCENT (BEAKER) (test code = 2801) 0 % 0-1 POCT-GLUCOSE [id number] 06:19:00* Test Item Value Reference Range Interpretation Comments POC-GLUCOSE METER (BEAKER) (test code = 1538) 137 mg/dL 70-110 H : TESTED AT [address], [address]: Pneumatic Tube Operator/Movie Actor ID = [id number] for ROBE KEVIN POCT-GLUCOSE [id number] 23:42:00* Test Item Value Reference Range Interpretation Comments POC-GLUCOSE METER (BEAKER) (test code = 1538) 194 mg/dL 70-110 H : TESTED AT [address], [address]: Pneumatic Tube Operator/Movie Actor ID = [id number] for ROBE FEBRUARY POCT-GLUCOSE [id number] 18:41:00* Test Item Value Reference Range Interpretation Comments POC-GLUCOSE METER (BEAKER) (test code = 1538) 138 mg/dL 70-110 H : TESTED AT [address], [address]: Pneumatic Tube Operator/Movie Actor ID = [id number] for VALDIVIEZ, ISA POCT-GLUCOSE [id number] 12:59:00* Test Item Value Reference Range Interpretation Comments POC-GLUCOSE METER (BEAKER) (test code = 1538) 198 mg/dL 70-110 H : TESTED AT [address], [address]: Pneumatic Tube Operator/Movie Actor ID = [id number] for VALDIVIEZ, ISA POCT-GLUCOSE [id number] 07:20:00* Test Item Value Reference Range Interpretation Comments POC-GLUCOSE METER (BEAKER) (test code = 1538) 154 mg/dL 70-110 H : TESTED AT [address], [address]: Pneumatic Tube Operator/Movie Actor ID = [id number] for ROBE KEVIN BASIC METABOLIC [id number] 05:05:00* Test Item Value Reference Range Interpretation Comments SODIUM (BEAKER) (test code = 381) 136 meq/L 136-145 POTASSIUM (BEAKER) (test code = 379) 4.2 meq/L 3.5-5.1 CHLORIDE (BEAKER) (test code = 382) 106 meq/L 98-107 CO2 (BEAKER) (test code = 355) 24 meq/L 22-29 BLOOD UREA NITROGEN (BEAKER) (test code = 354) 37 mg/dL 7-21 H CREATININE (BEAKER) (test code = 358) 0.93 mg/dL 0.57-1.25 GLUCOSE RANDOM (BEAKER) (test code = 652) 124 mg/dL 70-105 H CALCIUM (BEAKER) (test code = 697) 9.2 mg/dL 8.4-10.2 EGFR (BEAKER) (test code = 1092) 92 mL/min/1.73 sq m ESTIMATED GFR IS NOT ACCURATE CREATININE CLEARANCE IN PREDICTING GLOMERULAR FILTRATION RATE. ESTIMATED GFR IS NOT APPLICABLE FOR DIALYSIS PATIENTS. Pneumatic Tube Operator ID - PIAYA [id number]/[id number] 04:48:00* Test Item Value Reference Range Interpretation Comments Protime (test code = 5902-2) 15.5 11.9- 14.2 seconds H INR (test code = 6301-6) 1.3 <=5.9 PTT (test code = 91825-9) 34.4 22.5- 36.0 seconds ROSALIO (test code = ROSALIO) Effective 04/21/2019: PT Refe rence Range ChangeNew: 11.9- 14.2 Previous: 11.7-14.7 RECOMMENDED COUMADIN/WARFARIN INR THERAPY RANGESSTANDARD DOSE: 2.0-3.0 Includes: PROPHYLAXIS for venous thrombosis, sys temic embolization; TREATMENT for venous thrombosis and/or pulmonary embolus.HIGH RISK: Target INR is 2.5-3.5 for patients wiht mechanical heart valves. Lab Interpretation (test code = 28831-2) Abnormal [facility]/[id number] 04:48:00* Test Item Value Reference Range Interpretation Comments PROTIME (BEAKER) (test code = 759) 15.5 seconds 11.9-14.2 H INR (BEAKER) (test code = 370) 1.3 <=5.9 PARTIAL THROMBOPLASTIN TIME (BEAKER) (test code = 760) 34.4 seconds 22.5-36.0 Effective 04/21/2019: PT Reference Range ChangeNew: 11.9-14.2 Previous: 11.7-14. 7RECOMMENDED COUMADIN/WARFARIN INR THERAPY RANGESSTANDARD DOSE: 2.0-3.0 Include s: PROPHYLAXIS for venous thrombosis, systemic embolization; TREATMENT for venou s thrombosis and/or pulmonary embolus.HIGH RISK: Target INR is 2.5-3.5 for patie nts wiht mechanical heart valves.CBC W/PLT COUNT & AUTO [id number] 04:41:00* Test Item Value Reference Range Interpretation Comments WHITE BLOOD CELL COUNT (BEAKER) (test code = 775) 6.2 K/ L 3.5- 10.5 RED BLOOD CELL COUNT (BEAKER) (test code = 761) 2.97 M/ L 4.63-6 .08 L HEMOGLOBIN (BEAKER) (test code = 410) 8.2 GM/DL 13.7-17.5 L HEMATOCRIT (BEAKER) (test code = 411) 25.7 % 40.1-51.0 L MEAN CORPUSCULAR VOLUME (BEAKER) (test code = 753) 86.5 fL 79. 0-92.2 MEAN CORPUSCULAR HEMOGLOBIN (BEAKER) (test code = 751) 27.6 pg 25.7-32.2 MEAN CORPUSCULAR HEMOGLOBIN CONC (BEAKER) (test code = 752) 31.9 GM/DL 32.3-36.5 L RED CELL DISTRIBUTION WIDTH (BEAKER) (test code = 412) 14.8 % 11.6-14.4 H PLATELET COUNT (BEAKER) (test code = 756) 308 K/CU MM 150-450 MEAN PLATELET VOLUME (BEAKER) (test code = 754) 10.1 fL 9.4-12 .4 NUCLEATED RED BLOOD CELLS (BEAKER) (test code = 413) 0 /100 WBC 0 -0 NEUTROPHILS RELATIVE PERCENT (BEAKER) (test code = 429) 67 % LYMPHOCYTES RELATIVE PERCENT (BEAKER) (test code = 430) 23 % MONOCYTES RELATIVE PERCENT (BEAKER) (test code = 431) 8 % EOSINOPHILS RELATIVE PERCENT (BEAKER) (test code = 432) 2 % BASOPHILS RELATIVE PERCENT (BEAKER) (test code = 437) 0 % NEUTROPHILS ABSOLUTE COUNT (BEAKER) (test code = 670) 4.13 K/ L 1.78-5.38 LYMPHOCYTES ABSOLUTE COUNT (BEAKER) (test code = 414) 1.40 K/ L 1.32-3.57 MONOCYTES ABSOLUTE COUNT (BEAKER) (test code = 415) 0.46 K/ L 0. 30-0.82 EOSINOPHILS ABSOLUTE COUNT (BEAKER) (test code = 416) 0.13 K/ L 0.04-0.54 BASOPHILS ABSOLUTE COUNT (BEAKER) (test code = 417) 0.02 K/ L 0. 01-0.08 IMMATURE GRANULOCYTES-RELATIVE PERCENT (BEAKER) (test code = 2801) 1 % 0-1 RAD, CHEST, 1 VIEW, NON [id number] 01:55:00Reason for exam:->pre-procedure: lung fieldsShould this be performed at the bedside?->YesFINAL REPORT RAD, CHEST, 1 VIEW, NON DEPT INDICATION: pre-procedure: lung alvarado COMPARISON: Prior day's exam FINDINGS: Portable frontal view of the chest. IMPRESSION: Support Lines: Stable. Lungs and pleura: Unchanged airspace and pleural opacities. No pneumothorax.Heart and mediastinum: Stable contours. Additional findings: None. Signed: Chad Garcia Verified Date/Time: 05/31/2020 01:55:50 -GLUCOSE [id number] 00:17:00* Test Item Value Reference Range Interpretation Comments POC-GLUCOSE METER (BEAKER) (test code = 1538) 166 mg/dL 70-110 H : TESTED AT [facility] [address], [address]: Pneumatic Tube Operator/Movie Actor ID = [id number] for ROBEFebruary POCT-GLUCOSE [id number] 17:26:00* Test Item Value Reference Range Interpretation Comments POC-GLUCOSE METER (BEAKER) (test code = 1538) 166 mg/dL 70-110 H : TESTED AT [facility] [address], [address]: Pneumatic Tube Operator/Movie Actor ID = [id number] for YEISON RODRIGUEZ Blood gas, [id number] 13:45:00* Test Item Value Reference Range Interpretation Comments pH, Arterial (test code = 2744-1) 7.39 7.35-7.45 pCO2, Arterial (test code = 2019-8) 47 35- 45 mmHg H pO2, Arterial (test code = 2703-7) 130 80- 90 mmHg H O2 Sat, Arterial (test code = 2708-6) 98.6 % 96-97 H HCO3, Arterial (test code = 1960-4) 28 mmol/L 21-29 Base Excess, Arterial (test code = 1925-7) 2.6 mmol/L -2-3 Patient Temperature (test code = 8310-5) 37.0 C FIO2 (test code = 1819) 40 % Lab Interpretation (test code = 80989-5) Abnormal [facility], [id number] 13:45:00* Test Item Value Reference Range Interpretation Comments PH ARTERIAL (BEAKER) (test code = 383) 7.39 7.35-7.45 PCO2 ARTERIAL (BEAKER) (test code = 384) 47 mmHg 35-45 H PO2 ARTERIAL (BEAKER) (test code = 385) 130 mmHg 80-90 H O2 SATURATION ARTERIAL (BEAKER) (test code = 386) 98.6 % 96.0 -97.0 H HCO3 ARTERIAL (BEAKER) (test code = 388) 28 mmol/L 21-29 BASE EXCESS ARTERIAL (BEAKER) (test code = 387) 2.6 mmol/L -2.0-3 .0 PATIENT TEMPERATURE (BEAKER) (test code = 1818) 37.0 C FIO2 (BEAKER) (test code = 1819) 40.0 % POCT-GLUCOSE [id number] 12:16:00* Test Item Value Reference Range Interpretation Comments POC-GLUCOSE METER (BEAKER) (test code = 1538) 202 mg/dL 70-110 H : TESTED AT [address], [address]: Pneumatic Tube Operator/Movie Actor ID = [id number] for RODRIGUEZYEISON POCT-GLUCOSE [id number] 05:53:00* Test Item Value Reference Range Interpretation Comments POC-GLUCOSE METER (BEAKER) (test code = 1538) 162 mg/dL 70-110 H : TESTED AT [address], [address]: Pneumatic Tube Operator/Movie Actor ID = [id number] for LARRY MORRISSEY [id number] 04:39:00* Test Item Value Reference Range Interpretation Comments PHOSPHORUS (BEAKER) (test code = 604) 3.3 mg/dL 2.3-4.7 Pneumatic Tube Operator ID - ELAINE [id number] 04:39:00* Test Item Value Reference Range Interpretation Comments MAGNESIUM (BEAKER) (test code = 627) 2.0 mg/dL 1.6-2.6 Pneumatic Tube Operator ANDREZ HENRY LBASIC METABOLIC [id number] 04:39:00* Test Item Value Reference Range Interpretation Comments SODIUM (BEAKER) (test code = 381) 136 meq/L 136-145 POTASSIUM (BEAKER) (test code = 379) 4.7 meq/L 3.5-5.1 CHLORIDE (BEAKER) (test code = 382) 105 meq/L 98-107 CO2 (BEAKER) (test code = 355) 28 meq/L 22-29 BLOOD UREA NITROGEN (BEAKER) (test code = 354) 43 mg/dL 7-21 H CREATININE (BEAKER) (test code = 358) 0.97 mg/dL 0.57-1.25 GLUCOSE RANDOM (BEAKER) (test code = 652) 183 mg/dL 70-105 H CALCIUM (BEAKER) (test code = 697) 9.6 mg/dL 8.4-10.2 EGFR (BEAKER) (test code = 1092) 88 mL/min/1.73 sq m ESTIMATED GFR IS NOT ACCURATE CREATININE CLEARANCE IN PREDICTING GLOMERULAR FILTRATION RATE. ESTIMATED GFR IS NOT APPLICABLE FOR DIALYSIS PATIENTS. Pneumatic Tube Operator ANDREZ HENRY LCBC W/PLT COUNT & AUTO [id number] 04:16:00* Test Item Value Reference Range Interpretation Comments WHITE BLOOD CELL COUNT (BEAKER) (test code = 775) 5.5 K/ L 3.5- 10.5 RED BLOOD CELL COUNT (BEAKER) (test code = 761) 3.12 M/ L 4.63-6 .08 L HEMOGLOBIN (BEAKER) (test code = 410) 8.5 GM/DL 13.7-17.5 L HEMATOCRIT (BEAKER) (test code = 411) 27.0 % 40.1-51.0 L MEAN CORPUSCULAR VOLUME (BEAKER) (test code = 753) 86.5 fL 79. 0-92.2 MEAN CORPUSCULAR HEMOGLOBIN (BEAKER) (test code = 751) 27.2 pg 25.7-32.2 MEAN CORPUSCULAR HEMOGLOBIN CONC (BEAKER) (test code = 752) 31.5 GM/DL 32.3-36.5 L RED CELL DISTRIBUTION WIDTH (BEAKER) (test code = 412) 14.8 % 11.6-14.4 H PLATELET COUNT (BEAKER) (test code = 756) 306 K/CU MM 150-450 MEAN PLATELET VOLUME (BEAKER) (test code = 754) 10.1 fL 9.4-12 .4 NUCLEATED RED BLOOD CELLS (BEAKER) (test code = 413) 0 /100 WBC 0 -0 NEUTROPHILS RELATIVE PERCENT (BEAKER) (test code = 429) 70 % LYMPHOCYTES RELATIVE PERCENT (BEAKER) (test code = 430) 20 % MONOCYTES RELATIVE PERCENT (BEAKER) (test code = 431) 7 % EOSINOPHILS RELATIVE PERCENT (BEAKER) (test code = 432) 2 % BASOPHILS RELATIVE PERCENT (BEAKER) (test code = 437) 0 % NEUTROPHILS ABSOLUTE COUNT (BEAKER) (test code = 670) 3.87 K/ L 1.78-5.38 LYMPHOCYTES ABSOLUTE COUNT (BEAKER) (test code = 414) 1.11 K/ L 1.32-3.57 L MONOCYTES ABSOLUTE COUNT (BEAKER) (test code = 415) 0.36 K/ L 0. 30-0.82 EOSINOPHILS ABSOLUTE COUNT (BEAKER) (test code = 416) 0.12 K/ L 0.04-0.54 BASOPHILS ABSOLUTE COUNT (BEAKER) (test code = 417) 0.02 K/ L 0. 01-0.08 IMMATURE GRANULOCYTES-RELATIVE PERCENT (BEAKER) (test code = 2801) 1 % 0-1 RAD, CHEST, 1 VIEW, NON [id number] 01:52:00Reason for exam:->s/p RIGHT decorticationShould this be performed at the bedside?->YesFINAL REPORT RAD, CHEST, 1 VIEW, NON DEPT INDICATION: s/p RIGHT decortication COMPARISON: Prior day's exam FINDINGS: Portable frontal view of the chest. IMPRESSION: Support Lines: Stable. Lungs and pleura: Worsening reticular airspace opacities in the left lung with persistent patchy heterogeneous airspace opacities in the right lung. No pleural effusion. No pneumothorax.Heart and mediastinum: Stable contours. Additional findings: None. Signed: Chad Garciaeport Verified Date/Time: 05/30/2020 01:52:26 -GLUCOSE METER 2020-05-30 01:25:00* Test Item Value Reference Range Interpretation Comments POC-GLUCOSE METER (BEAKER) (test code = 1538) 188 mg/dL 70-110 H : TESTED AT [facility] [address], [address]: Pneumatic Tube Operator/Movie Actor ID = [id number] for LARRY MORRISSEY POCT-GLUCOSE [id number] 18:52:00* Test Item Value Reference Range Interpretation Comments POC-GLUCOSE METER (BEAKER) (test code = 1538) 182 mg/dL 70-110 H : TESTED AT 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 Signature ------- ------- Findings Left Ventri joanthan Normal left ventricular chamber size. Normal wall thickness. Normal overall left ventricular systolic function. No apparent segmental wall motion abnormalities . Estimated LVEF by qualitative assessment is normal (> 60%) . Normal diastolic function. Left Atrium LA size is normal . Right Ventricle Normal right ventricle structure an d function. Right Atrium Normal right atrium. Aortic Valve Normal AoV structure and function. Mitral Valve Normal MV structure and function. Tricuspid Valve A trace of tricuspid regurgitation. Estimated peak systolic PA pressure is 40-45 mmHg (mild pulmonary hypertension) . Pulmonic Valve Normal PV stru cture and function by limited views and Doppler. Aorta Aortic root size (SInus of Valsalva diameter) is normal . Pericardium No evidence of pericardial effusion. I VC/SVC/PA/PV/Pleural The estimated RA pressure by IVC dynamics 5-10mmHg . Chambers/Structures Left Atrium LA Dimension: 3.7 cm LA Area: 20.23 cm^2 LA Volume: 66.36 ml LA Vol. Index: 34 ml/m^2 Left Ventricle LVIDd: 4.51 cm LVEDV:110.65 ml LV Septum Diastolic: 0.99 cm LV PW Diastolic: 0.99 cm LVEDV Draper's:98.77 ml LVES V Draper's:39.36 ml LVEF Draper's: 60.2 % LVEDVI: 51 ml/m^2 LVESVI: 20 ml/m^2 LVOT Diameter: 2 cm Right Ventricle RVOT VTI: 19 cm Aorta Ao Root S of Sariah.: 3.21 cm Doppler/Quantitative Measurements Mitral Valve MV Peak E-Wave: 0.94 m/s MV Peak A-Wave: 0.87 m/s E/A Rati o: 1.09 Peak Gradient: 3.56 mmHg Deceleration Time: 181.9 msec MV Koffi. Peak: Tissu e Doppler E' Lateral Velocity: 0.12 m/s A' Lateral Velocity: 0.1 m/s E/E': 7.6 Aortic Valve Peak Velocity: 1.27 m/s Mean Velocity: 0.9 m/s Peak Gradient: 6.47 mmHg Mean Gradient: 3.54 mmHg AV Area (continuity): 2.47 cm^2 AV VTI: 21.72 cm AV DVI: 0.79 LVOT Peak Velocity: 0.97 m/s Peak Gradient: 3.8 mmHg Mean Velocity: 0.71 m/s Mean Gradient: 2.15 mmHg LVOT Diameter: 2 c m LVOT VTI: 17.12 cm LVOT Area: 3.14 cm^2 LVOT SV :53.76 ml LVOT CO: 5.48 l/min LVOT CI: 2.84 l/min/m^2 Tricuspid Valve TR Velocity: 2.77 m/s TR Gradient: 30.73 [facility] [id number] 12:26:00* Test Item Value Reference Range Interpretation Comments POC-GLUCOSE METER (BEAKER) (test code = 1538) 183 mg/dL 70-110 H : TESTED AT [place] [id number], [address]: Pneumatic Tube Operator/Movie Actor ID = [id number] for YEISON RODRIGUEZ POCT-GLUCOSE [id number] 06:58:00* Test Item Value Reference Range Interpretation Comments POC-GLUCOSE METER (BEAKER) (test code = 1538) 153 mg/dL 70-110 H : TESTED AT [place] [id number], [address]: Pneumatic Tube Operator/Movie Actor ID = [id number] for REBECCA REIS [id number] 04:59:00* Test Item Value Reference Range Interpretation Comments PHOSPHORUS (BEAKER) (test code = 604) 3.1 mg/dL 2.3-4.7 Pneumatic Tube Operator ID - ELAINE [id number] 04:59:00* Test Item Value Reference Range Interpretation Comments MAGNESIUM (BEAKER) (test code = 627) 2.1 mg/dL 1.6-2.6 Pneumatic Tube Operator ID - PIAYA LBASIC METABOLIC [id number] 04:59:00* Test Item Value Reference Range Interpretation Comments SODIUM (BEAKER) (test code = 381) 136 meq/L 136-145 POTASSIUM (BEAKER) (test code = 379) 4.3 meq/L 3.5-5.1 CHLORIDE (BEAKER) (test code = 382) 107 meq/L 98-107 CO2 (BEAKER) (test code = 355) 25 meq/L 22-29 BLOOD UREA NITROGEN (BEAKER) (test code = 354) 33 mg/dL 7-21 H CREATININE (BEAKER) (test code = 358) 0.97 mg/dL 0.57-1.25 GLUCOSE RANDOM (BEAKER) (test code = 652) 181 mg/dL 70-105 H CALCIUM (BEAKER) (test code = 697) 9.0 mg/dL 8.4-10.2 EGFR (BEAKER) (test code = 1092) 88 mL/min/1.73 sq m ESTIMATED GFR IS NOT ACCURATE CREATININE CLEARANCE IN PREDICTING GLOMERULAR FILTRATION RATE. ESTIMATED GFR IS NOT APPLICABLE FOR DIALYSIS PATIENTS. Pneumatic Tube Operator ID - PIAYA LCBC W/PLT COUNT & AUTO [id number] 04:17:00* Test Item Value Reference Range Interpretation Comments WHITE BLOOD CELL COUNT (BEAKER) (test code = 775) 6.5 K/ L 3.5- 10.5 RED BLOOD CELL COUNT (BEAKER) (test code = 761) 2.92 M/ L 4.63-6 .08 L HEMOGLOBIN (BEAKER) (test code = 410) 7.8 GM/DL 13.7-17.5 L HEMATOCRIT (BEAKER) (test code = 411) 25.3 % 40.1-51.0 L MEAN CORPUSCULAR VOLUME (BEAKER) (test code = 753) 86.6 fL 79. 0-92.2 MEAN CORPUSCULAR HEMOGLOBIN (BEAKER) (test code = 751) 26.7 pg 25.7-32.2 MEAN CORPUSCULAR HEMOGLOBIN CONC (BEAKER) (test code = 752) 30.8 GM/DL 32.3-36.5 L RED CELL DISTRIBUTION WIDTH (BEAKER) (test code = 412) 14.8 % 11.6-14.4 H PLATELET COUNT (BEAKER) (test code = 756) 317 K/CU MM 150-450 MEAN PLATELET VOLUME (BEAKER) (test code = 754) 9.6 fL 9.4-12 .4 NUCLEATED RED BLOOD CELLS (BEAKER) (test code = 413) 0 /100 WBC 0 -0 NEUTROPHILS RELATIVE PERCENT (BEAKER) (test code = 429) 70 % LYMPHOCYTES RELATIVE PERCENT (BEAKER) (test code = 430) 20 % MONOCYTES RELATIVE PERCENT (BEAKER) (test code = 431) 7 % EOSINOPHILS RELATIVE PERCENT (BEAKER) (test code = 432) 3 % BASOPHILS RELATIVE PERCENT (BEAKER) (test code = 437) 0 % NEUTROPHILS ABSOLUTE COUNT (BEAKER) (test code = 670) 4.54 K/ L 1.78-5.38 LYMPHOCYTES ABSOLUTE COUNT (BEAKER) (test code = 414) 1.28 K/ L 1.32-3.57 L MONOCYTES ABSOLUTE COUNT (BEAKER) (test code = 415) 0.43 K/ L 0. 30-0.82 EOSINOPHILS ABSOLUTE COUNT (BEAKER) (test code = 416) 0.18 K/ L 0.04-0.54 BASOPHILS ABSOLUTE COUNT (BEAKER) (test code = 417) 0.01 K/ L 0. 01-0.08 IMMATURE GRANULOCYTES-RELATIVE PERCENT (BEAKER) (test code = 2801) 1 % 0-1 RAD, CHEST, 1 VIEW, NON [id number] 00:29:00Reason for exam:->s/p RIGHT decorticationShould this be performed at the bedside?->YesFINAL REPORT RAD, CHEST, 1 VIEW, NON DEPT INDICATION: s/p RIGHT decortication COMPARISON: Prior day's exam FINDINGS: Portable frontal view of the chest. IMPRESSION: Support Lines: Stable. Lungs and pleura: Mildly improved aeration of the left lung with persistent reticular patchy airspace opacities in the right lung. Unchanged left retrocardiac airspace opacity. Small right pleural effusion. No pneumothorax.Heart and mediastinum: Stable contours. Additional findings: None. Signed: Chad aGrcia [facility] Verified Date/Time: 05/29/2020 00:29:44 -GLUCOSE [id number] 00:25:00* Test Item Value Reference Range Interpretation Comments POC-GLUCOSE METER (BEAKER) (test code = 1538) 170 mg/dL 70-110 H : TESTED AT [facility] [address], [id number]: Pneumatic Tube Operator/Movie Actor ID = [id number] for REBECCA REIS POCT-GLUCOSE [id number] 17:29:00* Test Item Value Reference Range Interpretation Comments POC-GLUCOSE METER (BEAKER) (test code = 1538) 178 mg/dL 70-110 H : TESTED AT [place] [id number], [address]: Pneumatic Tube Operator/Movie Actor ID = [id number] for CHAVO RICHMOND POCT-GLUCOSE [id number] 07:10:00* Test Item Value Reference Range Interpretation Comments POC-GLUCOSE METER (BEAKER) (test code = 1538) 174 mg/dL 70-110 H : TESTED AT [address], [address]: Pneumatic Tube Operator/Movie Actor ID = [id number] for KEVIN NAGEL BASIC METABOLIC [id number] 03:52:00* Test Item Value Reference Range Interpretation Comments SODIUM (BEAKER) (test code = 381) 136 meq/L 136-145 POTASSIUM (BEAKER) (test code = 379) 4.3 meq/L 3.5-5.1 Specimen slightly hemolyzed CHLORIDE (BEAKER) (test code = 382) 107 meq/L 98-107 CO2 (BEAKER) (test code = 355) 24 meq/L 22-29 BLOOD UREA NITROGEN (BEAKER) (test code = 354) 30 mg/dL 7-21 H CREATININE (BEAKER) (test code = 358) 0.91 mg/dL 0.57-1.25 Specimen slightly hemolyzed GLUCOSE RANDOM (BEAKER) (test code = 652) 167 mg/dL 70-105 H CALCIUM (BEAKER) (test code = 697) 8.7 mg/dL 8.4-10.2 EGFR (BEAKER) (test code = 1092) 95 mL/min/1.73 sq m ESTIMATED GFR IS NOT ACCURATE CREATININE CLEARANCE IN PREDICTING GLOMERULAR FILTRATION RATE. ESTIMATED GFR IS NOT APPLICABLE FOR DIALYSIS PATIENTS. Pneumatic Tube Operator ID - ELAINE LCBC W/PLT COUNT & AUTO [id number] 03:12:00* Test Item Value Reference Range Interpretation Comments WHITE BLOOD CELL COUNT (BEAKER) (test code = 775) 5.0 K/ L 3.5- 10.5 RED BLOOD CELL COUNT (BEAKER) (test code = 761) 2.93 M/ L 4.63-6 .08 L HEMOGLOBIN (BEAKER) (test code = 410) 8.1 GM/DL 13.7-17.5 L HEMATOCRIT (BEAKER) (test code = 411) 25.5 % 40.1-51.0 L MEAN CORPUSCULAR VOLUME (BEAKER) (test code = 753) 87.0 fL 79. 0-92.2 MEAN CORPUSCULAR HEMOGLOBIN (BEAKER) (test code = 751) 27.6 pg 25.7-32.2 MEAN CORPUSCULAR HEMOGLOBIN CONC (BEAKER) (test code = 752) 31.8 GM/DL 32.3-36.5 L RED CELL DISTRIBUTION WIDTH (BEAKER) (test code = 412) 15.0 % 11.6-14.4 H PLATELET COUNT (BEAKER) (test code = 756) 348 K/CU MM 150-450 MEAN PLATELET VOLUME (BEAKER) (test code = 754) 9.7 fL 9.4-12 .4 NUCLEATED RED BLOOD CELLS (BEAKER) (test code = 413) 0 /100 WBC 0 -0 NEUTROPHILS RELATIVE PERCENT (BEAKER) (test code = 429) 66 % LYMPHOCYTES RELATIVE PERCENT (BEAKER) (test code = 430) 21 % MONOCYTES RELATIVE PERCENT (BEAKER) (test code = 431) 9 % EOSINOPHILS RELATIVE PERCENT (BEAKER) (test code = 432) 4 % BASOPHILS RELATIVE PERCENT (BEAKER) (test code = 437) 0 % NEUTROPHILS ABSOLUTE COUNT (BEAKER) (test code = 670) 3.26 K/ L 1.78-5.38 LYMPHOCYTES ABSOLUTE COUNT (BEAKER) (test code = 414) 1.03 K/ L 1.32-3.57 L MONOCYTES ABSOLUTE COUNT (BEAKER) (test code = 415) 0.43 K/ L 0. 30-0.82 EOSINOPHILS ABSOLUTE COUNT (BEAKER) (test code = 416) 0.18 K/ L 0.04-0.54 BASOPHILS ABSOLUTE COUNT (BEAKER) (test code = 417) 0.02 K/ L 0. 01-0.08 IMMATURE GRANULOCYTES-RELATIVE PERCENT (BEAKER) (test code = 2801) 1 % 0-1 RAD, CHEST, 1 VIEW, NON [id number] 02:02:00Reason for exam:->s/p RIGHT decorticationShould this be performed at the bedside?->YesFINAL REPORT RAD, CHEST, 1 VIEW, NON DEPT INDICATION: s/p RIGHT decortication COMPARISON: Prior day's exam FINDINGS: Portable frontal view of the chest. IMPRESSION: Support Lines: Stable. Lungs and pleura: Unchanged airspace and pleural opacities. No pneumothorax.Heart and mediastinum: Stable contours. Additional findings: None. Signed: Chad Garcia Verified Date/Time: 05/28/2020 02:02:09 -GLUCOSE [id number] 18:31:00* Test Item Value Reference Range Interpretation Comments POC-GLUCOSE METER (BEAKER) (test code = 1538) 158 mg/dL 70-110 H : TESTED AT [facility] [address], [address]: Pneumatic Tube Operator/Movie Actor ID = [id number] for CHAVO RICHMOND ECG 12 [id number] 12:59:49Interface, External Ris In - 05/27/2020 12:59 PM CDTVentricular Rate 108 BPMAtrial Rate 108 BPMP-R Interval 136 msQRS Duration 76 msQ-T Interval 328 msQTC Calculation(Bazett) 439 msP Badger 72 degreesR Badger 78 degreesT Badger 77 degreesSinus tachycardiaOtherwise normal ECGWhen compared with ECG of 19-MAY-2020 16:31,Fusion complexes are no longer PresentConfirmed by MD LATISHA, HAKEEM Mccallum ([id number]) on 05/27/2020 12:59:46 [facility] [id number] 07:18:00* Test Item Value Reference Range Interpretation Comments SODIUM (BEAKER) (test code = 381) 136 meq/L 136-145 POTASSIUM (BEAKER) (test code = 379) 4.7 meq/L 3.5-5.1 Specimen moderately hemolyzed CHLORIDE (BEAKER) (test code = 382) 109 meq/L 98-107 H CO2 (BEAKER) (test code = 355) 22 meq/L 22-29 BLOOD UREA NITROGEN (BEAKER) (test code = 354) 29 mg/dL 7-21 H CREATININE (BEAKER) (test code = 358) 0.90 mg/dL 0.57-1.25 Specimen moderately hemolyzed GLUCOSE RANDOM (BEAKER) (test code = 652) 153 mg/dL 70-105 H CALCIUM (BEAKER) (test code = 697) 8.7 mg/dL 8.4-10.2 EGFR (BEAKER) (test code = 1092) 96 mL/min/1.73 sq m ESTIMATED GFR IS NOT ACCURATE CREATININE CLEARANCE IN PREDICTING GLOMERULAR FILTRATION RATE. ESTIMATED GFR IS NOT APPLICABLE FOR DIALYSIS PATIENTS. Pneumatic Tube Operator ID - PIAYA LPOCT-GLUCOSE [id number] 06:54:00* Test Item Value Reference Range Interpretation Comments POC-GLUCOSE METER (BEAKER) (test code = 1538) 156 mg/dL 70-110 H : TESTED AT [address], [address]: Pneumatic Tube Operator/Movie Actor ID = [id number] for REIS REBECCA CBC W/PLT COUNT & AUTO [id number] 05:32:00* Test Item Value Reference Range Interpretation Comments WHITE BLOOD CELL COUNT (BEAKER) (test code = 775) 5.3 K/ L 3.5- 10.5 RED BLOOD CELL COUNT (BEAKER) (test code = 761) 3.01 M/ L 4.63-6 .08 L HEMOGLOBIN (BEAKER) (test code = 410) 8.3 GM/DL 13.7-17.5 L HEMATOCRIT (BEAKER) (test code = 411) 26.4 % 40.1-51.0 L MEAN CORPUSCULAR VOLUME (BEAKER) (test code = 753) 87.7 fL 79. 0-92.2 MEAN CORPUSCULAR HEMOGLOBIN (BEAKER) (test code = 751) 27.6 pg 25.7-32.2 MEAN CORPUSCULAR HEMOGLOBIN CONC (BEAKER) (test code = 752) 31.4 GM/DL 32.3-36.5 L RED CELL DISTRIBUTION WIDTH (BEAKER) (test code = 412) 15.0 % 11.6-14.4 H PLATELET COUNT (BEAKER) (test code = 756) 353 K/CU MM 150-450 MEAN PLATELET VOLUME (BEAKER) (test code = 754) 9.7 fL 9.4-12 .4 NUCLEATED RED BLOOD CELLS (BEAKER) (test code = 413) 0 /100 WBC 0 -0 NEUTROPHILS RELATIVE PERCENT (BEAKER) (test code = 429) 67 % LYMPHOCYTES RELATIVE PERCENT (BEAKER) (test code = 430) 21 % MONOCYTES RELATIVE PERCENT (BEAKER) (test code = 431) 8 % EOSINOPHILS RELATIVE PERCENT (BEAKER) (test code = 432) 4 % BASOPHILS RELATIVE PERCENT (BEAKER) (test code = 437) 0 % NEUTROPHILS ABSOLUTE COUNT (BEAKER) (test code = 670) 3.54 K/ L 1.78-5.38 LYMPHOCYTES ABSOLUTE COUNT (BEAKER) (test code = 414) 1.09 K/ L 1.32-3.57 L MONOCYTES ABSOLUTE COUNT (BEAKER) (test code = 415) 0.43 K/ L 0. 30-0.82 EOSINOPHILS ABSOLUTE COUNT (BEAKER) (test code = 416) 0.21 K/ L 0.04-0.54 BASOPHILS ABSOLUTE COUNT (BEAKER) (test code = 417) 0.01 K/ L 0. 01-0.08 IMMATURE GRANULOCYTES-RELATIVE PERCENT (BEAKER) (test code = 2801) 1 % 0-1 RAD, CHEST, 1 VIEW, NON [id number] 02:47:00Reason for exam:->s/p RIGHT decorticationShould this be performed at the bedside?->YesFINAL REPORT RAD, CHEST, 1 VIEW, NON DEPT INDICATION: s/p RIGHT decortication COMPARISON: Prior day's exam FINDINGS: Portable frontal view of the chest. IMPRESSION: Support Lines: Interval removal of the previously seen left upper extremity PICC. Otherwise unchanged support apparatus. Lungs and pleura: Unchanged airspace and pleural opacities. No pneumothorax.Heart and mediastinum: Stable contours. Additional findings: Stable surgical changes. Signed: Chad Garcia [facility] Verified Date/Time: 05/27/2020 02:47:54 Electr onically signed by: CHAD GARCIA MD on 05/27/2020 02:47 AM POCT- GLUCOSE [id number] 00:21:00* Test Item Value Reference Range Interpretation Comments POC-GLUCOSE METER (BEAKER) (test code = 1538) 167 mg/dL 70-110 H : TESTED AT [facility] [address], [address]: Pneumatic Tube Operator/Movie Actor ID = [id number] for REBECCA REIS POCT-GLUCOSE [id number] 17:59:00* Test Item Value Reference Range Interpretation Comments POC-GLUCOSE METER (BEAKER) (test code = 1538) 168 mg/dL 70-110 H : TESTED AT [address], [address]: Pneumatic Tube Operator/Movie Actor ID = [id number] for DENYS DUENAS POCT-GLUCOSE [id number] 12:09:00* Test Item Value Reference Range Interpretation Comments POC-GLUCOSE METER (BEAKER) (test code = 1538) 185 mg/dL 70-110 H : TESTED AT [place] [id number], [address]: Pneumatic Tube Operator/Movie Actor ID = [id number] for DENYS DUENAS [id number] 07:32:00* Test Item Value Reference Range Interpretation Comments PHOSPHORUS (BEAKER) (test code = 604) 2.6 mg/dL 2.3-4.7 Pneumatic Tube Operator ID - ELAINE [id number] 07:32:00* Test Item Value Reference Range Interpretation Comments MAGNESIUM (BEAKER) (test code = 627) 2.1 mg/dL 1.6-2.6 Pneumatic Tube Operator ID - ELAINE LBASIC METABOLIC [id number] 07:32:00* Test Item Value Reference Range Interpretation Comments SODIUM (BEAKER) (test code = 381) 136 meq/L 136-145 POTASSIUM (BEAKER) (test code = 379) 3.9 meq/L 3.5-5.1 CHLORIDE (BEAKER) (test code = 382) 110 meq/L 98-107 H CO2 (BEAKER) (test code = 355) 21 meq/L 22-29 L BLOOD UREA NITROGEN (BEAKER) (test code = 354) 30 mg/dL 7-21 H CREATININE (BEAKER) (test code = 358) 0.96 mg/dL 0.57-1.25 GLUCOSE RANDOM (BEAKER) (test code = 652) 184 mg/dL 70-105 H CALCIUM (BEAKER) (test code = 697) 8.5 mg/dL 8.4-10.2 EGFR (BEAKER) (test code = 1092) 89 mL/min/1.73 sq m ESTIMATED GFR IS NOT ACCURATE CREATININE CLEARANCE IN PREDICTING GLOMERULAR FILTRATION RATE. ESTIMATED GFR IS NOT APPLICABLE FOR DIALYSIS PATIENTS. Pneumatic Tube Operator ID - PIAYA LPOCT-GLUCOSE [id number] 05:38:00* Test Item Value Reference Range Interpretation Comments POC-GLUCOSE METER (BEAKER) (test code = 1538) 159 mg/dL 70-110 H : TESTED AT [facility] [address], [address]: Pneumatic Tube Operator/Movie Actor ID = [id number] for Anna Bridges CBC W/PLT COUNT & AUTO [id number] 03:58:00* Test Item Value Reference Range Interpretation Comments WHITE BLOOD CELL COUNT (BEAKER) (test code = 775) 6.0 K/ L 3.5- 10.5 RED BLOOD CELL COUNT (BEAKER) (test code = 761) 2.94 M/ L 4.63-6 .08 L HEMOGLOBIN (BEAKER) (test code = 410) 8.0 GM/DL 13.7-17.5 L HEMATOCRIT (BEAKER) (test code = 411) 25.2 % 40.1-51.0 L MEAN CORPUSCULAR VOLUME (BEAKER) (test code = 753) 85.7 fL 79. 0-92.2 MEAN CORPUSCULAR HEMOGLOBIN (BEAKER) (test code = 751) 27.2 pg 25.7-32.2 MEAN CORPUSCULAR HEMOGLOBIN CONC (BEAKER) (test code = 752) 31.7 GM/DL 32.3-36.5 L RED CELL DISTRIBUTION WIDTH (BEAKER) (test code = 412) 15.1 % 11.6-14.4 H PLATELET COUNT (BEAKER) (test code = 756) 389 K/CU MM 150-450 MEAN PLATELET VOLUME (BEAKER) (test code = 754) 9.6 fL 9.4-12 .4 NUCLEATED RED BLOOD CELLS (BEAKER) (test code = 413) 0 /100 WBC 0 -0 NEUTROPHILS RELATIVE PERCENT (BEAKER) (test code = 429) 69 % LYMPHOCYTES RELATIVE PERCENT (BEAKER) (test code = 430) 17 % MONOCYTES RELATIVE PERCENT (BEAKER) (test code = 431) 9 % EOSINOPHILS RELATIVE PERCENT (BEAKER) (test code = 432) 4 % BASOPHILS RELATIVE PERCENT (BEAKER) (test code = 437) 0 % NEUTROPHILS ABSOLUTE COUNT (BEAKER) (test code = 670) 4.19 K/ L 1.78-5.38 LYMPHOCYTES ABSOLUTE COUNT (BEAKER) (test code = 414) 1.02 K/ L 1.32-3.57 L MONOCYTES ABSOLUTE COUNT (BEAKER) (test code = 415) 0.51 K/ L 0. 30-0.82 EOSINOPHILS ABSOLUTE COUNT (BEAKER) (test code = 416) 0.24 K/ L 0.04-0.54 BASOPHILS ABSOLUTE COUNT (BEAKER) (test code = 417) 0.01 K/ L 0. 01-0.08 IMMATURE GRANULOCYTES-RELATIVE PERCENT (BEAKER) (test code = 2801) 1 % 0-1 RAD, CHEST, 1 VIEW, NON [id number] 03:03:00Reason for exam:->s/p RIGHT decorticationShould this be performed at the bedside?->YesFINAL REPORT CLINICAL INDICATION: Postop Comparison: 05/25/2020 The cardiomediastinal contours are stable. The lung volumes remain low. Right greater than left parenchymal and right pleural opacities are similar to pre vious. There is no pneumothorax. Support lines are stable. Signed: Sayda Fan MDReport Verified Date/Time: 05/26/2020 03:03:24 -GLUCOSE [id number] 00:24:00* Test Item Value Reference Range Interpretation Comments POC-GLUCOSE METER (BEAKER) (test code = 1538) 132 mg/dL 70-110 H : TESTED AT [address], [address]: Pneumatic Tube Operator/Movie Actor ID = [id number] for Anna Bridges POCT-GLUCOSE [id number] 19:37:00* Test Item Value Reference Range Interpretation Comments POC-GLUCOSE METER (BEAKER) (test code = 1538) 134 mg/dL 70-110 H : TESTED AT [facility] [address], [address]: Pneumatic Tube Operator/Movie Actor ID = [id number] for DENYS DUENAS [id number] 17:03:00* Test Item Value Reference Range Interpretation Comments MAGNESIUM (BEAKER) (test code = 627) 2.2 mg/dL 1.6-2.6 Specimen slightly hemolyzed Pneumatic Tube Operator ID - [id number] 17:03:00* Test Item Value Reference Range Interpretation Comments PHOSPHORUS (BEAKER) (test code = 604) 3.0 mg/dL 2.3-4.7 Specimen slightly hemolyzed Pneumatic Tube Operator ID - BSBASIC METABOLIC [id number] 17:03:00* Test Item Value Reference Range Interpretation Comments SODIUM (BEAKER) (test code = 381) 134 meq/L 136-145 L POTASSIUM (BEAKER) (test code = 379) 4.7 meq/L 3.5-5.1 Specimen slightly hemolyzed CHLORIDE (BEAKER) (test code = 382) 110 meq/L 98-107 H CO2 (BEAKER) (test code = 355) 20 meq/L 22-29 L BLOOD UREA NITROGEN (BEAKER) (test code = 354) 30 mg/dL 7-21 H CREATININE (BEAKER) (test code = 358) 1.01 mg/dL 0.57-1.25 Specimen slightly hemolyzed GLUCOSE RANDOM (BEAKER) (test code = 652) 173 mg/dL 70-105 H CALCIUM (BEAKER) (test code = 697) 8.5 mg/dL 8.4-10.2 EGFR (BEAKER) (test code = 1092) 84 mL/min/1.73 sq m ESTIMATED GFR IS NOT ACCURATE CREATININE CLEARANCE IN PREDICTING GLOMERULAR FILTRATION RATE. ESTIMATED GFR IS NOT APPLICABLE FOR DIALYSIS PATIENTS. Pneumatic Tube Operator ID - BSPOCT-GLUCOSE [id number] 12:09:00* Test Item Value Reference Range Interpretation Comments POC-GLUCOSE METER (BEAKER) (test code = 1538) 159 mg/dL 70-110 H : TESTED AT [facility] [address], [address]: Pneumatic Tube Operator/Movie Actor ID = [id number] for DENYS DUENAS SPUTUM CULTURE + GRAM [id number] 09:56:00* Test Item Value Reference Range Interpretation Comments CULTURE (BEAKER) (test code = 1095) ENTEROBACTER AEROGENES A 3+ Enterobacter aerogenes Amikacin (test code = 1) S Aztreonam (test code = 32) S Cefepime (test code = 51) S Cefoxitin (test code = 68) R Ceftazidime (test code = 27) S Ceftriaxone (test code = 52) S Ertapenem (test code = 38) S Gentamicin (test code = 18) S Levofloxacin (test code = 22) S Meropenem (test code = 34) S Nitrofurantoin (test code = 23) R Tetracycline (test code = 2) S Tobramycin (test code = 25) S Trimethoprim + Sulfamethoxazole (test code = 47) S CULTURE (BEAKER) (test code = 1095) STAPHYLOCOCCUS AUREUS A 1+ Staphylococcus aureus Clindamycin (test code = 10) R Erythromycin (test code = 4) R Linezolid (test code = 40) S Nitrofurantoin (test code = 23) S Oxacillin (test code = 14) S Rifampin (test code = 43) S Tetracycline (test code = 2) S Trimethoprim + Sulfamethoxazole (test code = 47) S Vancomycin (test code = 13) S CULTURE (BEAKER) (test code = 1095) A 1 out of 4 media Aspergillus fumigatus GRAM STAIN RESULT (BEAKER) (test code = 1123) 2+ White blood cells seen GRAM STAIN RESULT (BEAKER) (test code = 543876) 15-20 epithelial ce lls GRAM STAIN RESULT (BEAKER) (test code = 049422) 3+ gram negative ro ds No Normal respiratory milli [id number] 08:15:00* Test Item Value Reference Range Interpretation Comments PHOSPHORUS (BEAKER) (test code = 604) 2.8 mg/dL 2.3-4.7 Pneumatic Tube Operator ID - [id number] 08:15:00* Test Item Value Reference Range Interpretation Comments MAGNESIUM (BEAKER) (test code = 627) 2.3 mg/dL 1.6-2.6 Pneumatic Tube Operator ID - EMERSONPOCT-GLUCOSE [id number] 06:12:00* Test Item Value Reference Range Interpretation Comments POC-GLUCOSE METER (BEAKER) (test code = 1538) 166 mg/dL 70-110 H : TESTED AT [place] [address], [address]: Pneumatic Tube Operator/Movie Actor ID = [id number] for Anna Bridges [place] CBC W/PLT COUNT & AUTO [id number] 05:28:00* Test Item Value Reference Range Interpretation Comments WHITE BLOOD CELL COUNT (BEAKER) (test code = 775) 5.6 K/ L 3.5- 10.5 RED BLOOD CELL COUNT (BEAKER) (test code = 761) 2.94 M/ L 4.63-6 .08 L HEMOGLOBIN (BEAKER) (test code = 410) 7.9 GM/DL 13.7-17.5 L HEMATOCRIT (BEAKER) (test code = 411) 25.4 % 40.1-51.0 L MEAN CORPUSCULAR VOLUME (BEAKER) (test code = 753) 86.4 fL 79. 0-92.2 MEAN CORPUSCULAR HEMOGLOBIN (BEAKER) (test code = 751) 26.9 pg 25.7-32.2 MEAN CORPUSCULAR HEMOGLOBIN CONC (BEAKER) (test code = 752) 31.1 GM/DL 32.3-36.5 L RED CELL DISTRIBUTION WIDTH (BEAKER) (test code = 412) 15.2 % 11.6-14.4 H PLATELET COUNT (BEAKER) (test code = 756) 360 K/CU MM 150-450 MEAN PLATELET VOLUME (BEAKER) (test code = 754) 9.7 fL 9.4-12 .4 NUCLEATED RED BLOOD CELLS (BEAKER) (test code = 413) 0 /100 WBC 0 -0 NEUTROPHILS RELATIVE PERCENT (BEAKER) (test code = 429) 64 % LYMPHOCYTES RELATIVE PERCENT (BEAKER) (test code = 430) 20 % MONOCYTES RELATIVE PERCENT (BEAKER) (test code = 431) 10 % EOSINOPHILS RELATIVE PERCENT (BEAKER) (test code = 432) 4 % BASOPHILS RELATIVE PERCENT (BEAKER) (test code = 437) 0 % NEUTROPHILS ABSOLUTE COUNT (BEAKER) (test code = 670) 3.62 K/ L 1.78-5.38 LYMPHOCYTES ABSOLUTE COUNT (BEAKER) (test code = 414) 1.13 K/ L 1.32-3.57 L MONOCYTES ABSOLUTE COUNT (BEAKER) (test code = 415) 0.56 K/ L 0. 30-0.82 EOSINOPHILS ABSOLUTE COUNT (BEAKER) (test code = 416) 0.24 K/ L 0.04-0.54 BASOPHILS ABSOLUTE COUNT (BEAKER) (test code = 417) 0.02 K/ L 0. 01-0.08 IMMATURE GRANULOCYTES-RELATIVE PERCENT (BEAKER) (test code = 2801) 1 % 0-1 BASIC METABOLIC [id number] 05:13:00* Test Item Value Reference Range Interpretation Comments SODIUM (BEAKER) (test code = 381) 135 meq/L 136-145 L POTASSIUM (BEAKER) (test code = 379) 3.6 meq/L 3.5-5.1 CHLORIDE (BEAKER) (test code = 382) 109 meq/L 98-107 H CO2 (BEAKER) (test code = 355) 21 meq/L 22-29 L BLOOD UREA NITROGEN (BEAKER) (test code = 354) 30 mg/dL 7-21 H CREATININE (BEAKER) (test code = 358) 1.04 mg/dL 0.57-1.25 GLUCOSE RANDOM (BEAKER) (test code = 652) 156 mg/dL 70-105 H CALCIUM (BEAKER) (test code = 697) 8.6 mg/dL 8.4-10.2 EGFR (BEAKER) (test code = 1092) 81 mL/min/1.73 sq m ESTIMATED GFR IS NOT ACCURATE CREATININE CLEARANCE IN PREDICTING GLOMERULAR FILTRATION RATE. ESTIMATED GFR IS NOT APPLICABLE FOR DIALYSIS PATIENTS. Pneumatic Tube Operator ID - BSRAD, CHEST, 1 VIEW, NON [id number] 02:54:00Reason for exam:- >s/p RIGHT decorticationShould this be performed at the bedside?->YesFINAL REPORT CLINICAL INDICATION: Postop Comparison: 05/24/2020 The cardiomediastinal contours are stable. The lung volumes remain low. Central pulmonary vascular prominence and right greater than left parenchymal and right pleural opacities are unchanged. There is no pneumothorax. Support lines are stable. Signed: Sayda Fan MDReport Verified Date/Time: 05/25/2020 02:54:15 -GLUCOSE [id number] 23:46:00* Test Item Value Reference Range Interpretation Comments POC-GLUCOSE METER (BEAKER) (test code = 1538) 117 mg/dL 70-110 H : TESTED AT [facility] [address], [address]: Pneumatic Tube Operator/Movie Actor ID = [id number] for Anna Bridges POCT-GLUCOSE [id number] 19:02:00* Test Item Value Reference Range Interpretation Comments POC-GLUCOSE METER (BEAKER) (test code = 1538) 132 mg/dL 70-110 H : TESTED AT [address], [address]: Pneumatic Tube Operator/Movie Actor ID = [id number] for DENYS DUENAS POCT-GLUCOSE [id number] 12:55:00* Test Item Value Reference Range Interpretation Comments POC-GLUCOSE METER (BEAKER) (test code = 1538) 161 mg/dL 70-110 H : TESTED AT [place] [address], [address]: Pneumatic Tube Operator/Movie Actor ID = [id number] for DENYS DUENAS POCT-GLUCOSE [id number] 06:16:00* Test Item Value Reference Range Interpretation Comments POC-GLUCOSE METER (BEAKER) (test code = 1538) 169 mg/dL 70-110 H : TESTED AT [address], [address]: Pneumatic Tube Operator/Movie Actor ID = [id number] for Anna Bridges [id number] 04:53:00* Test Item Value Reference Range Interpretation Comments PHOSPHORUS (BEAKER) (test code = 604) 3.2 mg/dL 2.3-4.7 Pneumatic Tube Operator ID - RUEL [id number] 04:53:00* Test Item Value Reference Range Interpretation Comments MAGNESIUM (BEAKER) (test code = 627) 2.2 mg/dL 1.6-2.6 Pneumatic Tube Operator ID - RUEL WBASIC METABOLIC [id number] 04:53:00* Test Item Value Reference Range Interpretation Comments SODIUM (BEAKER) (test code = 381) 137 meq/L 136-145 POTASSIUM (BEAKER) (test code = 379) 3.6 meq/L 3.5-5.1 CHLORIDE (BEAKER) (test code = 382) 110 meq/L 98-107 H CO2 (BEAKER) (test code = 355) 23 meq/L 22-29 BLOOD UREA NITROGEN (BEAKER) (test code = 354) 29 mg/dL 7-21 H CREATININE (BEAKER) (test code = 358) 1.10 mg/dL 0.57-1.25 GLUCOSE RANDOM (BEAKER) (test code = 652) 143 mg/dL 70-105 H CALCIUM (BEAKER) (test code = 697) 8.5 mg/dL 8.4-10.2 EGFR (BEAKER) (test code = 1092) 76 mL/min/1.73 sq m ESTIMATED GFR IS NOT ACCURATE CREATININE CLEARANCE IN PREDICTING GLOMERULAR FILTRATION RATE. ESTIMATED GFR IS NOT APPLICABLE FOR DIALYSIS PATIENTS. Pneumatic Tube Operator ID - RUEL WCBC W/PLT COUNT & AUTO [id number] 04:24:00* Test Item Value Reference Range Interpretation Comments WHITE BLOOD CELL COUNT (BEAKER) (test code = 775) 6.8 K/ L 3.5- 10.5 RED BLOOD CELL COUNT (BEAKER) (test code = 761) 2.89 M/ L 4.63-6 .08 L HEMOGLOBIN (BEAKER) (test code = 410) 7.8 GM/DL 13.7-17.5 L HEMATOCRIT (BEAKER) (test code = 411) 25.0 % 40.1-51.0 L MEAN CORPUSCULAR VOLUME (BEAKER) (test code = 753) 86.5 fL 79. 0-92.2 MEAN CORPUSCULAR HEMOGLOBIN (BEAKER) (test code = 751) 27.0 pg 25.7-32.2 MEAN CORPUSCULAR HEMOGLOBIN CONC (BEAKER) (test code = 752) 31.2 GM/DL 32.3-36.5 L RED CELL DISTRIBUTION WIDTH (BEAKER) (test code = 412) 15.1 % 11.6-14.4 H PLATELET COUNT (BEAKER) (test code = 756) 360 K/CU MM 150-450 MEAN PLATELET VOLUME (BEAKER) (test code = 754) 9.3 fL 9.4-12 .4 L NUCLEATED RED BLOOD CELLS (BEAKER) (test code = 413) 0 /100 WBC 0 -0 NEUTROPHILS RELATIVE PERCENT (BEAKER) (test code = 429) 72 % LYMPHOCYTES RELATIVE PERCENT (BEAKER) (test code = 430) 17 % MONOCYTES RELATIVE PERCENT (BEAKER) (test code = 431) 9 % EOSINOPHILS RELATIVE PERCENT (BEAKER) (test code = 432) 2 % BASOPHILS RELATIVE PERCENT (BEAKER) (test code = 437) 0 % NEUTROPHILS ABSOLUTE COUNT (BEAKER) (test code = 670) 4.87 K/ L 1.78-5.38 LYMPHOCYTES ABSOLUTE COUNT (BEAKER) (test code = 414) 1.16 K/ L 1.32-3.57 L MONOCYTES ABSOLUTE COUNT (BEAKER) (test code = 415) 0.58 K/ L 0. 30-0.82 EOSINOPHILS ABSOLUTE COUNT (BEAKER) (test code = 416) 0.16 K/ L 0.04-0.54 BASOPHILS ABSOLUTE COUNT (BEAKER) (test code = 417) 0.01 K/ L 0. 01-0.08 IMMATURE GRANULOCYTES-RELATIVE PERCENT (BEAKER) (test code = 2801) 1 % 0-1 RAD, CHEST, 1 VIEW, NON [id number] 02:46:00Reason for exam:->s/p RIGHT decorticationShould this be performed at the bedside?->YesFINAL REPORT CLINICAL INDICATION: Postop Comparison: 05/23/2020 The cardiomediastinal contours are stable. Central pulmonary vascular congestion and right greater than left parenchymal and pleural opacities are unchanged. There is no pneumothorax. Support lines are stable. Signed: Sayda Fanresearch [facility] Verified Date/Time: 05/24/2020 02:46:00 -GLUCOSE [id number] 23:56:00* Test Item Value Reference Range Interpretation Comments POC-GLUCOSE METER (BEAKER) (test code = 1538) 129 mg/dL 70-110 H : TESTED AT [facility] [address], [address]: Pneumatic Tube Operator/Movie Actor ID = [id number] for Anna Bridges Fungus culture + [id number] 17:20:00* Test Item Value Reference Range Interpretation Comments Result (test code = 6463-4) No fungus isolated in 28 days Fungus Smear (test code = 1406) No [facility] [id number] 17:20:00* Test Item Value Reference Range Interpretation Comments CULTURE (BEAKER) (test code = 1095) No fungus isolated in 28 days FUNGUS SMEAR (BEAKER) (test code = 1406) No fungi seen POCT-GLUCOSE [id number] 17:17:00* Test Item Value Reference Range Interpretation Comments POC-GLUCOSE METER (BEAKER) (test code = 1538) 148 mg/dL 70-110 H : TESTED AT [facility] [address], [address]: Pneumatic Tube Operator/Movie Actor ID = [id number] for SVETLANA FRANCE RAD, CHEST, 1 VIEW, NON [id number] 04:14:00Reason for exam:->s/p RIGHT decorticationShould this be performed at the bedside?->YesFINAL REPORT RAD, CHEST, 1 VIEW, NON DEPT INDICATION: s/p RIGHT decortication COMPARISON: Prior day's exam FINDINGS: Portable frontal view of the chest. IMPRESSION: Support Lines: No significant change. Lungs and pleura: Right hemithorax opacities are stable. Mild vascular congestion. Left lung base minimal atelectasis or scarring. No pneumothorax.Heart and mediastinum: Stable contours. Additional findings: None. Signed: Samir Rivera MDReport Verified Date/Time: 05/23/2020 04:14:54 [id number] 04:07:00* Test Item Value Reference Range Interpretation Comments PHOSPHORUS (BEAKER) (test code = 604) 3.7 mg/dL 2.3-4.7 Pneumatic Tube Operator ID - ELAINE [id number] 04:07:00* Test Item Value Reference Range Interpretation Comments MAGNESIUM (BEAKER) (test code = 627) 2.2 mg/dL 1.6-2.6 Pneumatic Tube Operator ID - PIAYA LBASIC METABOLIC [id number] 04:07:00* Test Item Value Reference Range Interpretation Comments SODIUM (BEAKER) (test code = 381) 136 meq/L 136-145 POTASSIUM (BEAKER) (test code = 379) 3.9 meq/L 3.5-5.1 CHLORIDE (BEAKER) (test code = 382) 108 meq/L 98-107 H CO2 (BEAKER) (test code = 355) 22 meq/L 22-29 BLOOD UREA NITROGEN (BEAKER) (test code = 354) 23 mg/dL 7-21 H CREATININE (BEAKER) (test code = 358) 1.05 mg/dL 0.57-1.25 GLUCOSE RANDOM (BEAKER) (test code = 652) 136 mg/dL 70-105 H CALCIUM (BEAKER) (test code = 697) 8.6 mg/dL 8.4-10.2 EGFR (BEAKER) (test code = 1092) 80 mL/min/1.73 sq m ESTIMATED GFR IS NOT ACCURATE CREATININE CLEARANCE IN PREDICTING GLOMERULAR FILTRATION RATE. ESTIMATED GFR IS NOT APPLICABLE FOR DIALYSIS PATIENTS. Pneumatic Tube Operator ID - PIAYA LCBC W/PLT COUNT & AUTO [id number] 03:28:00* Test Item Value Reference Range Interpretation Comments WHITE BLOOD CELL COUNT (BEAKER) (test code = 775) 5.7 K/ L 3.5- 10.5 RED BLOOD CELL COUNT (BEAKER) (test code = 761) 3.05 M/ L 4.63-6 .08 L HEMOGLOBIN (BEAKER) (test code = 410) 8.2 GM/DL 13.7-17.5 L HEMATOCRIT (BEAKER) (test code = 411) 26.5 % 40.1-51.0 L MEAN CORPUSCULAR VOLUME (BEAKER) (test code = 753) 86.9 fL 79. 0-92.2 MEAN CORPUSCULAR HEMOGLOBIN (BEAKER) (test code = 751) 26.9 pg 25.7-32.2 MEAN CORPUSCULAR HEMOGLOBIN CONC (BEAKER) (test code = 752) 30.9 GM/DL 32.3-36.5 L RED CELL DISTRIBUTION WIDTH (BEAKER) (test code = 412) 14.6 % 11.6-14.4 H PLATELET COUNT (BEAKER) (test code = 756) 358 K/CU MM 150-450 MEAN PLATELET VOLUME (BEAKER) (test code = 754) 9.2 fL 9.4-12 .4 L NUCLEATED RED BLOOD CELLS (BEAKER) (test code = 413) 0 /100 WBC 0 -0 NEUTROPHILS RELATIVE PERCENT (BEAKER) (test code = 429) 70 % LYMPHOCYTES RELATIVE PERCENT (BEAKER) (test code = 430) 15 % MONOCYTES RELATIVE PERCENT (BEAKER) (test code = 431) 11 % EOSINOPHILS RELATIVE PERCENT (BEAKER) (test code = 432) 3 % BASOPHILS RELATIVE PERCENT (BEAKER) (test code = 437) 0 % NEUTROPHILS ABSOLUTE COUNT (BEAKER) (test code = 670) 4.02 K/ L 1.78-5.38 LYMPHOCYTES ABSOLUTE COUNT (BEAKER) (test code = 414) 0.85 K/ L 1.32-3.57 L MONOCYTES ABSOLUTE COUNT (BEAKER) (test code = 415) 0.61 K/ L 0. 30-0.82 EOSINOPHILS ABSOLUTE COUNT (BEAKER) (test code = 416) 0.19 K/ L 0.04-0.54 BASOPHILS ABSOLUTE COUNT (BEAKER) (test code = 417) 0.01 K/ L 0. 01-0.08 IMMATURE GRANULOCYTES-RELATIVE PERCENT (BEAKER) (test code = 2801) 1 % 0-1 POCT-GLUCOSE [id number] 17:29:00* Test Item Value Reference Range Interpretation Comments POC-GLUCOSE METER (BEAKER) (test code = 1538) 139 mg/dL 70-110 H : TESTED AT [place] [id number] [facility], [address]: Pneumatic Tube Operator/Movie Actor ID = [id number] for BENITA GALEAS POCT-GLUCOSE [id number] 12:40:00* Test Item Value Reference Range Interpretation Comments POC-GLUCOSE METER (BEAKER) (test code = 1538) 138 mg/dL 70-110 H : TESTED AT [facility] [address] [facility], [address]: Pneumatic Tube Operator/Movie Actor ID = [id number] for WILBERTO CHONG CBC (Hemogram only)2020-05-22 10:49:00* Test Item Value Reference Range Interpretation Comments WBC (test code = 6690-2) 6.1 3.5- 10.5 K/L RBC (test code = 789-8) 2.88 4.63- 6.08 M/L L MCHC (test code = 786-4) 31.7 32.3- 36.5 GM/DL L Hematocrit (test code = 4544-3) 25.2 % 40.1-51 L MCV (test code = 787-2) 87.5 fL 79-92.2 MCH (test code = 785-6) 27.8 pg 25.7-32.2 RDW (test code = 788-0) 14.6 % 11.6-14.4 H Platelets (test code = 777-3) 301 150- 450 K/CU MM MPV (test code = 97885-5) 9.2 fL 9.4-12.4 L nRBC (test code = 413) 0 0- 0 /100 WBC Lab Interpretation (test code = 76865-5) [facility] 10:49:[facility]* Test Item Value Reference Range Interpretation Comments WHITE BLOOD CELL COUNT (BEAKER) (test code = 775) 6.1 K/ L 3.5- 10.5 RED BLOOD CELL COUNT (BEAKER) (test code = 761) 2.88 M/ L 4.63-6 .08 L HEMOGLOBIN (BEAKER) (test code = 410) 8.0 GM/DL 13.7-17.5 L HEMATOCRIT (BEAKER) (test code = 411) 25.2 % 40.1-51.0 L MEAN CORPUSCULAR VOLUME (BEAKER) (test code = 753) 87.5 fL 79. 0-92.2 MEAN CORPUSCULAR HEMOGLOBIN (BEAKER) (test code = 751) 27.8 pg 25.7-32.2 MEAN CORPUSCULAR HEMOGLOBIN CONC (BEAKER) (test code = 752) 31.7 GM/DL 32.3-36.5 L RED CELL DISTRIBUTION WIDTH (BEAKER) (test code = 412) 14.6 % 11.6-14.4 H PLATELET COUNT (BEAKER) (test code = 756) 301 K/CU MM 150-450 MEAN PLATELET VOLUME (BEAKER) (test code = 754) 9.2 fL 9.4-12 .4 L NUCLEATED RED BLOOD CELLS (BEAKER) (test code = 413) 0 /100 WBC 0 -0 [id number] 06:46:00* Test Item Value Reference Range Interpretation Comments PTT (test code = 04808-0) 88.1 22.5- 36.0 seconds H Lab Interpretation (test code = 02636-7) [facility] 06:46:[facility]* Test Item Value Reference Range Interpretation Comments PARTIAL THROMBOPLASTIN TIME (BEAKER) (test code = 760) 88.1 seconds 22.5-36.0 H POCT-GLUCOSE [id number] 06:29:00* Test Item Value Reference Range Interpretation Comments POC-GLUCOSE METER (BEAKER) (test code = 1538) 157 mg/dL 70-110 H : TESTED AT [facility] [address] [facility], [address]: Pneumatic Tube Operator/Movie Actor ID = [id number] for MUMTAZ STOCK BASIC METABOLIC [id number] 04:41:00* Test Item Value Reference Range Interpretation Comments SODIUM (BEAKER) (test code = 381) 133 meq/L 136-145 L POTASSIUM (BEAKER) (test code = 379) 3.6 meq/L 3.5-5.1 CHLORIDE (BEAKER) (test code = 382) 106 meq/L 98-107 CO2 (BEAKER) (test code = 355) 22 meq/L 22-29 BLOOD UREA NITROGEN (BEAKER) (test code = 354) 20 mg/dL 7-21 CREATININE (BEAKER) (test code = 358) 1.03 mg/dL 0.57-1.25 GLUCOSE RANDOM (BEAKER) (test code = 652) 171 mg/dL 70-105 H CALCIUM (BEAKER) (test code = 697) 8.1 mg/dL 8.4-10.2 L EGFR (BEAKER) (test code = 1092) 82 mL/min/1.73 sq m ESTIMATED GFR IS NOT ACCURATE CREATININE CLEARANCE IN PREDICTING GLOMERULAR FILTRATION RATE. ESTIMATED GFR IS NOT APPLICABLE FOR DIALYSIS PATIENTS. Pneumatic Tube Operator ID - PIAYA LRAD, CHEST, 1 VIEW, NON [id number] 04:09:00Reason for exam:->s/p RIGHT decorticationShould this be performed at the bedside?->YesFINAL REPORT CLINICAL INDICATION: Postop Comparison: 04/25 The cardiomediastinal contours are stable. The lung volumes remain low. C entral pulmonary vascular congestion and right greater than left parenchymal and right pleural opacities are unchanged. There is no pneumothorax. Support lines are stable. Signed: Sayda Faneport Verified Date/Time: 05/22/2020 04:09 :17 W/PLT COUNT & AUTO [id number] 04:06:00* Test Item Value Reference Range Interpretation Comments WHITE BLOOD CELL COUNT (BEAKER) (test code = 775) 5.1 K/ L 3.5- 10.5 RED BLOOD CELL COUNT (BEAKER) (test code = 761) 2.77 M/ L 4.63-6 .08 L HEMOGLOBIN (BEAKER) (test code = 410) 7.7 GM/DL 13.7-17.5 L HEMATOCRIT (BEAKER) (test code = 411) 24.3 % 40.1-51.0 L MEAN CORPUSCULAR VOLUME (BEAKER) (test code = 753) 87.7 fL 79. 0-92.2 MEAN CORPUSCULAR HEMOGLOBIN (BEAKER) (test code = 751) 27.8 pg 25.7-32.2 MEAN CORPUSCULAR HEMOGLOBIN CONC (BEAKER) (test code = 752) 31.7 GM/DL 32.3-36.5 L RED CELL DISTRIBUTION WIDTH (BEAKER) (test code = 412) 14.5 % 11.6-14.4 H PLATELET COUNT (BEAKER) (test code = 756) 286 K/CU MM 150-450 MEAN PLATELET VOLUME (BEAKER) (test code = 754) 9.6 fL 9.4-12 .4 NUCLEATED RED BLOOD CELLS (BEAKER) (test code = 413) 0 /100 WBC 0 -0 NEUTROPHILS RELATIVE PERCENT (BEAKER) (test code = 429) 61 % LYMPHOCYTES RELATIVE PERCENT (BEAKER) (test code = 430) 27 % MONOCYTES RELATIVE PERCENT (BEAKER) (test code = 431) 9 % EOSINOPHILS RELATIVE PERCENT (BEAKER) (test code = 432) 3 % BASOPHILS RELATIVE PERCENT (BEAKER) (test code = 437) 0 % NEUTROPHILS ABSOLUTE COUNT (BEAKER) (test code = 670) 3.11 K/ L 1.78-5.38 LYMPHOCYTES ABSOLUTE COUNT (BEAKER) (test code = 414) 1.37 K/ L 1.32-3.57 MONOCYTES ABSOLUTE COUNT (BEAKER) (test code = 415) 0.47 K/ L 0. 30-0.82 EOSINOPHILS ABSOLUTE COUNT (BEAKER) (test code = 416) 0.13 K/ L 0.04-0.54 BASOPHILS ABSOLUTE COUNT (BEAKER) (test code = 417) 0.01 K/ L 0. 01-0.08 IMMATURE GRANULOCYTES-RELATIVE PERCENT (BEAKER) (test code = 2801) 0 % 0-1 [id number] 00:29:00* Test Item Value Reference Range Interpretation Comments PARTIAL THROMBOPLASTIN TIME (BEAKER) (test code = 760) 90.8 seconds 22.5-36.0 H POCT-GLUCOSE [id number] 00:07:00* Test Item Value Reference Range Interpretation Comments POC-GLUCOSE METER (BEAKER) (test code = 1538) 123 mg/dL 70-110 H : TESTED AT [address], [address]: Pneumatic Tube Operator/Movie Actor ID = [id number] for MUMTAZ STOCK [id number] 18:51:00* Test Item Value Reference Range Interpretation Comments PARTIAL THROMBOPLASTIN TIME (BEAKER) (test code = 760) 81.9 seconds 22.5-36.0 H POCT-GLUCOSE [id number] 17:58:00* Test Item Value Reference Range Interpretation Comments POC-GLUCOSE METER (BEAKER) (test code = 1538) 116 mg/dL 70-110 H : TESTED AT [place] [id number] [facility], [address]: Pneumatic Tube Operator/Movie Actor ID = [id number] for SUE DRIVER POCT-GLUCOSE [id number] 12:16:00* Test Item Value Reference Range Interpretation Comments POC-GLUCOSE METER (BEAKER) (test code = 1538) 113 mg/dL 70-110 H : TESTED AT [address], [address]: Pneumatic Tube Operator/Movie Actor ID = [id number] for DAYANARA HARSHAD [id number] 10:55:00* Test Item Value Reference Range Interpretation Comments PARTIAL THROMBOPLASTIN TIME (BEAKER) (test code = 760) 61.3 seconds 22.5-36.0 H BLOOD GAS, [id number] 10:30:00* Test Item Value Reference Range Interpretation Comments PH ARTERIAL (BEAKER) (test code = 383) 7.48 7.35-7.45 H PCO2 ARTERIAL (BEAKER) (test code = 384) 35 mmHg 35-45 PO2 ARTERIAL (BEAKER) (test code = 385) 192 mmHg 80-90 H O2 SATURATION ARTERIAL (BEAKER) (test code = 386) 99.4 % 96.0 -97.0 H HCO3 ARTERIAL (BEAKER) (test code = 388) 26 mmol/L 21-29 BASE EXCESS ARTERIAL (BEAKER) (test code = 387) 2.2 mmol/L -2.0-3 .0 PATIENT TEMPERATURE (BEAKER) (test code = 1818) 37.1 C FIO2 (BEAKER) (test code = 1819) 40.0 % BASIC METABOLIC [id number] 06:28:00* Test Item Value Reference Range Interpretation Comments SODIUM (BEAKER) (test code = 381) 133 meq/L 136-145 L POTASSIUM (BEAKER) (test code = 379) 4.0 meq/L 3.5-5.1 CHLORIDE (BEAKER) (test code = 382) 103 meq/L 98-107 CO2 (BEAKER) (test code = 355) 25 meq/L 22-29 BLOOD UREA NITROGEN (BEAKER) (test code = 354) 15 mg/dL 7-21 CREATININE (BEAKER) (test code = 358) 1.04 mg/dL 0.57-1.25 GLUCOSE RANDOM (BEAKER) (test code = 652) 108 mg/dL 70-105 H CALCIUM (BEAKER) (test code = 697) 7.9 mg/dL 8.4-10.2 L EGFR (BEAKER) (test code = 1092) 81 mL/min/1.73 sq m ESTIMATED GFR IS NOT ACCURATE CREATININE CLEARANCE IN PREDICTING GLOMERULAR FILTRATION RATE. ESTIMATED GFR IS NOT APPLICABLE FOR DIALYSIS PATIENTS. Pneumatic Tube Operator ID - ELAINE LPOCT-GLUCOSE [id number] 06:13:00* Test Item Value Reference Range Interpretation Comments POC-GLUCOSE METER (BEAKER) (test code = 1538) 102 mg/dL 70-110 : TESTED AT [facility] [address] [facility], [address]: Pneumatic Tube Operator/Movie Actor ID = [id number] for MUMTAZ STOCK [id number] 04:24:00* Test Item Value Reference Range Interpretation Comments PHOSPHORUS (BEAKER) (test code = 604) 3.6 mg/dL 2.3-4.7 Pneumatic Tube Operator ID - ELAINE [id number] 04:24:00* Test Item Value Reference Range Interpretation Comments MAGNESIUM (BEAKER) (test code = 627) 1.9 mg/dL 1.6-2.6 Pneumatic Tube Operator ID - ELAINE [id number] 04:03:00* Test Item Value Reference Range Interpretation Comments PARTIAL THROMBOPLASTIN TIME (BEAKER) (test code = 760) 68.8 seconds 22.5-36.0 H CBC W/PLT COUNT & AUTO [id number] 03:55:00* Test Item Value Reference Range Interpretation Comments WHITE BLOOD CELL COUNT (BEAKER) (test code = 775) 7.2 K/ L 3.5- 10.5 RED BLOOD CELL COUNT (BEAKER) (test code = 761) 2.68 M/ L 4.63-6 .08 L HEMOGLOBIN (BEAKER) (test code = 410) 7.3 GM/DL 13.7-17.5 L HEMATOCRIT (BEAKER) (test code = 411) 23.6 % 40.1-51.0 L MEAN CORPUSCULAR VOLUME (BEAKER) (test code = 753) 88.1 fL 79. 0-92.2 MEAN CORPUSCULAR HEMOGLOBIN (BEAKER) (test code = 751) 27.2 pg 25.7-32.2 MEAN CORPUSCULAR HEMOGLOBIN CONC (BEAKER) (test code = 752) 30.9 GM/DL 32.3-36.5 L RED CELL DISTRIBUTION WIDTH (BEAKER) (test code = 412) 14.9 % 11.6-14.4 H PLATELET COUNT (BEAKER) (test code = 756) 276 K/CU MM 150-450 MEAN PLATELET VOLUME (BEAKER) (test code = 754) 9.7 fL 9.4-12 .4 NUCLEATED RED BLOOD CELLS (BEAKER) (test code = 413) 0 /100 WBC 0 -0 NEUTROPHILS RELATIVE PERCENT (BEAKER) (test code = 429) 76 % LYMPHOCYTES RELATIVE PERCENT (BEAKER) (test code = 430) 13 % MONOCYTES RELATIVE PERCENT (BEAKER) (test code = 431) 9 % EOSINOPHILS RELATIVE PERCENT (BEAKER) (test code = 432) 1 % BASOPHILS RELATIVE PERCENT (BEAKER) (test code = 437) 0 % NEUTROPHILS ABSOLUTE COUNT (BEAKER) (test code = 670) 5.49 K/ L 1.78-5.38 H LYMPHOCYTES ABSOLUTE COUNT (BEAKER) (test code = 414) 0.92 K/ L 1.32-3.57 L MONOCYTES ABSOLUTE COUNT (BEAKER) (test code = 415) 0.67 K/ L 0. 30-0.82 EOSINOPHILS ABSOLUTE COUNT (BEAKER) (test code = 416) 0.10 K/ L 0.04-0.54 BASOPHILS ABSOLUTE COUNT (BEAKER) (test code = 417) 0.01 K/ L 0. 01-0.08 IMMATURE GRANULOCYTES-RELATIVE PERCENT (BEAKER) (test code = 2801) 0 % 0-1 RAD, CHEST, 1 VIEW, NON [id number] 01:55:00Reason for exam:->s/p RIGHT decorticationShould this be performed at the bedside?->YesFINAL REPORT RAD, CHEST, 1 VIEW, NON DEPT INDICATION: s/p RIGHT decortication COMPARISON: Prior day's exam FINDINGS: Portable frontal view of the chest. IMPRESSION: Support Lines: No significant change. Lungs and pleura: Right greater than left interstitial and parenchymal opacities are similar in appearance. No pneumothorax.Heart and mediastinum: Stable contours. Additional findings: None. Signed: Samir Rivera MDReport Verified Date/Time: 05/21/2020 01:55:53 -GLUCOSE [id number] 23:51:00* Test Item Value Reference Range Interpretation Comments POC-GLUCOSE METER (BEAKER) (test code = 1538) 100 mg/dL 70-110 : TESTED AT [address], [address]: Pneumatic Tube Operator/Movie Actor ID = [id number] for MUMTAZ STOCK [id number] 21:18:00* Test Item Value Reference Range Interpretation Comments PARTIAL THROMBOPLASTIN TIME (BEAKER) (test code = 760) 55.3 seconds 22.5-36.0 H POCT-GLUCOSE [id number] 18:45:00* Test Item Value Reference Range Interpretation Comments POC-GLUCOSE METER (BEAKER) (test code = 1538) 130 mg/dL 70-110 H : TESTED AT [address], [address]: Pneumatic Tube Operator/Movie Actor ID = [id number] for SEU DRIVER [id number] 12:25:00* Test Item Value Reference Range Interpretation Comments PARTIAL THROMBOPLASTIN TIME (BEAKER) (test code = 760) 52.3 seconds 22.5-36.0 H POCT-GLUCOSE [id number] 12:10:00* Test Item Value Reference Range Interpretation Comments POC-GLUCOSE METER (BEAKER) (test code = 1538) 130 mg/dL 70-110 H : TESTED AT [address], [address]: Pneumatic Tube Operator/Movie Actor ID = [id number] for SUE DRIVER BLOOD GAS, [id number] 05:17:00* Test Item Value Reference Range Interpretation Comments PH ARTERIAL (BEAKER) (test code = 383) 7.38 7.35-7.45 PCO2 ARTERIAL (BEAKER) (test code = 384) 58 mmHg 35-45 H PO2 ARTERIAL (BEAKER) (test code = 385) 160 mmHg 80-90 H O2 SATURATION ARTERIAL (BEAKER) (test code = 386) 98.9 % 96.0 -97.0 H HCO3 ARTERIAL (BEAKER) (test code = 388) 34 mmol/L 21-29 H BASE EXCESS ARTERIAL (BEAKER) (test code = 387) 7.7 mmol/L -2.0-3 .0 H PATIENT TEMPERATURE (BEAKER) (test code = 1818) 38.0 C FIO2 (BEAKER) (test code = 1819) 40.0 % BASIC METABOLIC [id number] 04:35:00* Test Item Value Reference Range Interpretation Comments SODIUM (BEAKER) (test code = 381) 138 meq/L 136-145 POTASSIUM (BEAKER) (test code = 379) 4.0 meq/L 3.5-5.1 CHLORIDE (BEAKER) (test code = 382) 103 meq/L 98-107 CO2 (BEAKER) (test code = 355) 31 meq/L 22-29 H BLOOD UREA NITROGEN (BEAKER) (test code = 354) 18 mg/dL 7-21 CREATININE (BEAKER) (test code = 358) 1.05 mg/dL 0.57-1.25 GLUCOSE RANDOM (BEAKER) (test code = 652) 131 mg/dL 70-105 H CALCIUM (BEAKER) (test code = 697) 8.2 mg/dL 8.4-10.2 L EGFR (BEAKER) (test code = 1092) 80 mL/min/1.73 sq m ESTIMATED GFR IS NOT ACCURATE CREATININE CLEARANCE IN PREDICTING GLOMERULAR FILTRATION RATE. ESTIMATED GFR IS NOT APPLICABLE FOR DIALYSIS PATIENTS. Pneumatic Tube Operator ID - RUEL [id number] 04:16:00* Test Item Value Reference Range Interpretation Comments PARTIAL THROMBOPLASTIN TIME (BEAKER) (test code = 760) 47.8 seconds 22.5-36.0 H CBC W/PLT COUNT & AUTO [id number] 04:08:00* Test Item Value Reference Range Interpretation Comments WHITE BLOOD CELL COUNT (BEAKER) (test code = 775) 5.8 K/ L 3.5- 10.5 RED BLOOD CELL COUNT (BEAKER) (test code = 761) 2.63 M/ L 4.63-6 .08 L HEMOGLOBIN (BEAKER) (test code = 410) 7.3 GM/DL 13.7-17.5 L HEMATOCRIT (BEAKER) (test code = 411) 23.3 % 40.1-51.0 L MEAN CORPUSCULAR VOLUME (BEAKER) (test code = 753) 88.6 fL 79. 0-92.2 MEAN CORPUSCULAR HEMOGLOBIN (BEAKER) (test code = 751) 27.8 pg 25.7-32.2 MEAN CORPUSCULAR HEMOGLOBIN CONC (BEAKER) (test code = 752) 31.3 GM/DL 32.3-36.5 L RED CELL DISTRIBUTION WIDTH (BEAKER) (test code = 412) 15.0 % 11.6-14.4 H PLATELET COUNT (BEAKER) (test code = 756) 244 K/CU MM 150-450 MEAN PLATELET VOLUME (BEAKER) (test code = 754) 9.8 fL 9.4-12 .4 NUCLEATED RED BLOOD CELLS (BEAKER) (test code = 413) 0 /100 WBC 0 -0 NEUTROPHILS RELATIVE PERCENT (BEAKER) (test code = 429) 71 % LYMPHOCYTES RELATIVE PERCENT (BEAKER) (test code = 430) 19 % MONOCYTES RELATIVE PERCENT (BEAKER) (test code = 431) 8 % EOSINOPHILS RELATIVE PERCENT (BEAKER) (test code = 432) 1 % BASOPHILS RELATIVE PERCENT (BEAKER) (test code = 437) 0 % NEUTROPHILS ABSOLUTE COUNT (BEAKER) (test code = 670) 4.06 K/ L 1.78-5.38 LYMPHOCYTES ABSOLUTE COUNT (BEAKER) (test code = 414) 1.11 K/ L 1.32-3.57 L MONOCYTES ABSOLUTE COUNT (BEAKER) (test code = 415) 0.47 K/ L 0. 30-0.82 EOSINOPHILS ABSOLUTE COUNT (BEAKER) (test code = 416) 0.07 K/ L 0.04-0.54 BASOPHILS ABSOLUTE COUNT (BEAKER) (test code = 417) 0.01 K/ L 0. 01-0.08 IMMATURE GRANULOCYTES-RELATIVE PERCENT (BEAKER) (test code = 2801) 1 % 0-1 RAD, CHEST, 1 VIEW, NON [id number] 01:42:00Reason for exam:->s/p RIGHT decorticationShould this be performed at the bedside?->YesFINAL REPORT RAD, CHEST, 1 VIEW, NON DEPT INDICATION: s/p RIGHT decortication COMPARISON: Prior day's exam FINDINGS: Portable frontal view of the chest. IMPRESSION: Support Lines: No significant change. Lungs and pleura: Unchanged right greater than left airspace disease. No pneumothorax.Heart and mediastinum: Stable contours. Additional findings: None. Signed: Samir Rivera Verified Date/Time: 05/20/2020 01:42:48 -GLUCOSE [id number] 00:32:00* Test Item Value Reference Range Interpretation Comments POC-GLUCOSE METER (BEAKER) (test code = 1538) 144 mg/dL 70-110 H : TESTED AT [address], [address]: Pneumatic Tube Operator/Movie Actor ID = [id number] for TITO ACUNA [id number] 20:27:00* Test Item Value Reference Range Interpretation Comments PARTIAL THROMBOPLASTIN TIME (BEAKER) (test code = 760) 45.0 seconds 22.5-36.0 H [id number] 20:26:00* Test Item Value Reference Range Interpretation Comments Potassium (test code = 2823-3) 4.3 meq/L 3.5-5.1 Specimen slightly hemolyzed ROSALIO (test code = ROSALIO) Pneumatic Tube Operator ID - BS Lab Interpretation (test code = 41458-5) [id number]:26[facility]* Test Item Value Reference Range Interpretation Comments MAGNESIUM (BEAKER) (test code = 627) 2.0 mg/dL 1.6-2.6 Specimen slightly hemolyzed Pneumatic Tube Operator ID - [id number] 20:26:00* Test Item Value Reference Range Interpretation Comments POTASSIUM (BEAKER) (test code = 379) 4.3 meq/L 3.5-5.1 Specimen slightly hemolyzed Pneumatic Tube Operator ID - BSBLOOD GAS, [id number] 19:05:00* Test Item Value Reference Range Interpretation Comments PH ARTERIAL (BEAKER) (test code = 383) 7.46 7.35-7.45 H PCO2 ARTERIAL (BEAKER) (test code = 384) 47 mmHg 35-45 H PO2 ARTERIAL (BEAKER) (test code = 385) 123 mmHg 80-90 H O2 SATURATION ARTERIAL (BEAKER) (test code = 386) 98.5 % 96.0 -97.0 H HCO3 ARTERIAL (BEAKER) (test code = 388) 33 mmol/L 21-29 H BASE EXCESS ARTERIAL (BEAKER) (test code = 387) 8.3 mmol/L -2.0-3 .0 H PATIENT TEMPERATURE (BEAKER) (test code = 1818) 37.4 C FIO2 (BEAKER) (test code = 1819) 40.0 % URINALYSIS W/ REFLEX URINE [id number] 18:50:00* Test Item Value Reference Range Interpretation Comments COLOR (BEAKER) (test code = 470) Yellow CLARITY (BEAKER) (test code = 469) Hazy SPECIFIC GRAVITY UA (BEAKER) (test code = 468) 1.018 1.001-1 .035 PH UA (BEAKER) (test code = 467) 7.0 5.0-8.0 PROTEIN UA (BEAKER) (test code = 464) 200 mg/dL Negative A GLUCOSE UA (BEAKER) (test code = 365) Negative Negative KETONES UA (BEAKER) (test code = 371) Trace Negative A BILIRUBIN UA (BEAKER) (test code = 462) Negative Negative BLOOD UA (BEAKER) (test code = 461) Small Negative A NITRITE UA (BEAKER) (test code = 465) Negative Negative LEUKOCYTE ESTERASE UA (BEAKER) (test code = 466) Large Negat chris A UROBILINOGEN UA (BEAKER) (test code = 463) 4.0 mg/dL 0.2-1.0 H RBC UA (BEAKER) (test code = 519) 14 /HPF WBC UA (BEAKER) (test code = 520) 63 /HPF SOURCE(BEAKER) (test code = 2795) Pneumatic Tube Operator ID - [auto]Pneumatic Tube Operator ID - techTroponin [id number] 16:01:00* Test Item Value Reference Range Interpretation Comments Troponin I (test code = 96599-8) 0.03 ng/mL 0-0.03 ROSALIO (test code = ROSALIO) Troponin I (TnI) levels must be interpreted in the context of the presenting symptoms and the clinical findings. Elevated TnI levels indicate myocardial damage, but are not specific for ischemic heart disease. Elevated TnI levels are seen in patients with other cardiac conditions (including myocarditis and congestive heart failure), and slight TnI elevations occur in patients with other conditions, including sepsis, renal failure, acidosis, acute neurological disease, and persistent tachyarrhythmia.Pneumatic Tube Operator ID - BS Lab Interpretation (test code = 81008-2) [facility] [id number] 16:01:00* Test Item Value Reference Range Interpretation Comments TROPONIN I (BEAKER) (test code = 397) 0.03 ng/mL 0.00-0.03 Troponin I (TnI) levels must be interpreted in the context of the presenting sym ptoms and the clinical findings. Elevated TnI levels indicate myocardial damage, but are not specific for ischemic heart disease. Elevated TnI levels are seen i n patients with other cardiac conditions (including myocarditis and congestive h eart failure), and slight TnI elevations occur in patients with other conditions , including sepsis, renal failure, acidosis, acute neurological disease, and per sistent tachyarrhythmia.Pneumatic Tube Operator ID - BSPOCT-GLUCOSE [id number] 15:23:00* Test Item Value Reference Range Interpretation Comments POC-GLUCOSE METER (BEAKER) (test code = 1538) 124 mg/dL 70-110 H : TESTED AT 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 Normal LV size and fu nction. LVEF is > 60% 2. Diastology: Normal [...] mm Hg Signature Findings Technical Quality: Technically adequa te exam. Left Ventricle LV endocardium is well visualized with IV ultrasound enhancing agent. The left ventricle is chamber size (by vol index) is normal (male - LVED vol - 34-74ml/m2). No evidence of LV hypertrophy. All of the LV segments contract normally . Global LV systoli c function normal . LVEF by Draper's method of disk asse ssment is normal (>60%) . LV diastolic function [...] 18.11 cm Aorta Ao Root S of Sariah.: 3.18 cm Doppler/Quantitative Measurements Mitral Valve MV Peak E-Wave: 0.93 m/s MV Peak A-Wave: 0.53 m/s E/A Ratio: 1.74 Peak Gradient: 3.43 mmHg Deceleration Time: 154.9 msec MV Koffi. Peak: Tissue Doppler E' Lateral Velocity: 0.14 [...] Velocity: 3.05 m/s TR Gradient: 37.12 [facility] Test Item Value Reference Range Interpretation Comments PARTIAL THROMBOPLASTIN TIME (BEAKER) (test code = 760) 32.2 seconds 22.5-36.0 6 hours after starting heparin infusion and as [facility]2020-05-19 10:32:00* Test Item Value Reference Range Interpretation Comments WHITE BLOOD CELL COUNT (BEAKER) (test code = 775) 9.0 K/ L 3.5- 10.5 RED BLOOD CELL COUNT (BEAKER) (test code = 761) 2.61 M/ L 4.63-6 .08 L HEMOGLOBIN (BEAKER) (test code = 410) 7.2 GM/DL 13.7-17.5 L HEMATOCRIT (BEAKER) (test code = 411) 23.4 % 40.1-51.0 L MEAN CORPUSCULAR VOLUME (BEAKER) (test code = 753) 89.7 fL 79. 0-92.2 MEAN CORPUSCULAR HEMOGLOBIN (BEAKER) (test code = 751) 27.6 pg 25.7-32.2 MEAN CORPUSCULAR HEMOGLOBIN CONC (BEAKER) (test code = 752) 30.8 GM/DL 32.3-36.5 L RED CELL DISTRIBUTION WIDTH (BEAKER) (test code = 412) 15.1 % 11.6-14.4 H PLATELET COUNT (BEAKER) (test code = 756) 253 K/CU MM 150-450 MEAN PLATELET VOLUME (BEAKER) (test code = 754) 10.6 fL 9.4-12 .4 NUCLEATED RED BLOOD CELLS (BEAKER) (test code = 413) 0 /100 WBC 0 -0 TROPONIN [id number] 10:10:00* Test Item Value Reference Range Interpretation Comments TROPONIN I (BEAKER) (test code = 397) 0.03 ng/mL 0.00-0.03 Troponin I (TnI) levels must be interpreted in the context of the presenting sym ptoms and the clinical findings. Elevated TnI levels indicate myocardial damage, but are not specific for ischemic heart disease. Elevated TnI levels are seen i n patients with other cardiac conditions (including myocarditis and congestive h eart failure), and slight TnI elevations occur in patients with other conditions , including sepsis, renal failure, acidosis, acute neurological disease, and per sistent tachyarrhythmia.Pneumatic Tube Operator ID - ASHLEY LICO, ABDOMEN/KUB, 1 VIEW [id number] 10:07:00Reason for exam:->Abdominal fullnessFINAL REPORT RAD, ABDOMEN/KUB, 1 VIEW AP CLINICAL INDICATION: Abdominal fullness COMPARISON: None TECHNIQUE: Single, frontal radiograph of the abdomen. FINDINGS: The bowel gas pattern is nonspecific, but nonobstructive. The regional skeleton is intact. IMPRESSION: Nonspecific, nonobstructive bowel gas pattern. Signed: Stanford Miller MDReport Verified Date/Time: 05/19/2020 10:07:26 Reading Location: [facility] Radiology Reading Room abdomen / KUB 1 [id number] 10:07:00Interface, External Ris In - 05/19/2020 10:13 AM CDTFINAL REPORT RAD, ABDOMEN/KUB, 1 VIEW AP CLINICAL INDICATION: Abdominal fullness COMPARISON: None TECHNIQUE: Single, frontal radiograph of the abdomen. FINDINGS: The bowel gas pattern is nonspecific, but nonobstructive. The regional skeleton is intact. IMPRESSION: Nonspecific, nonobstructive bowel gas pattern. Signed: Stanford Miller Verified Date/Time: 05/19/2020 10:07:26 Reading Location: [facility] Radiology [facility] NON [facility]PT 2020-05-19 10:06:00Reason for exam:->SOBShould this be performed at the bedside?->YesFINAL REPORT RAD, CHEST, 1 VIEW, NON DEPT INDICATION: SOB COMPARISON: Earlier same day FINDINGS: Portable frontal view of the chest. IMPRESSION: Support Lines: Tracheostomy tip is 2 cm superior to the latasha. PICC tip overlies the SVC. Lungs and pleura: Diffuse bilateral airspace opacities, right greater than left are unchanged No pneumothorax.Heart and mediastinum: Stable contours. Stable surgical changes.Additional findings: None. Signed: Stanford Miller Verified Date/Time: 05/19/2020 10:06:11 Reading Location: [facility] Radiology Reading Room -GLUCOSE METER 2020-05-19 06:46:00* Test Item Value Reference Range Interpretation Comments POC-GLUCOSE METER (BEAKER) (test code = 1538) 86 mg/dL 70-110 : TESTED AT [facility] [address], [address]: Pneumatic Tube Operator/Movie Actor ID = [id number] for ELIU DO [id number] 04:39:00* Test Item Value Reference Range Interpretation Comments PHOSPHORUS (BEAKER) (test code = 604) 3.8 mg/dL 2.3-4.7 Pneumatic Tube Operator ID - [id number] 04:39:00* Test Item Value Reference Range Interpretation Comments MAGNESIUM (BEAKER) (test code = 627) 1.9 mg/dL 1.6-2.6 Pneumatic Tube Operator ID - LABASIC METABOLIC [id number] 04:39:00* Test Item Value Reference Range Interpretation Comments SODIUM (BEAKER) (test code = 381) 139 meq/L 136-145 POTASSIUM (BEAKER) (test code = 379) 4.4 meq/L 3.5-5.1 CHLORIDE (BEAKER) (test code = 382) 103 meq/L 98-107 CO2 (BEAKER) (test code = 355) 33 meq/L 22-29 H BLOOD UREA NITROGEN (BEAKER) (test code = 354) 23 mg/dL 7-21 H CREATININE (BEAKER) (test code = 358) 1.12 mg/dL 0.57-1.25 GLUCOSE RANDOM (BEAKER) (test code = 652) 121 mg/dL 70-105 H CALCIUM (BEAKER) (test code = 697) 8.3 mg/dL 8.4-10.2 L EGFR (BEAKER) (test code = 1092) 75 mL/min/1.73 sq m ESTIMATED GFR IS NOT ACCURATE CREATININE CLEARANCE IN PREDICTING GLOMERULAR FILTRATION RATE. ESTIMATED GFR IS NOT APPLICABLE FOR DIALYSIS PATIENTS. Pneumatic Tube Operator ID - LACBC W/PLT COUNT & AUTO [id number] 04:17:00* Test Item Value Reference Range Interpretation Comments WHITE BLOOD CELL COUNT (BEAKER) (test code = 775) 9.5 K/ L 3.5- 10.5 RED BLOOD CELL COUNT (BEAKER) (test code = 761) 2.63 M/ L 4.63-6 .08 L HEMOGLOBIN (BEAKER) (test code = 410) 7.3 GM/DL 13.7-17.5 L HEMATOCRIT (BEAKER) (test code = 411) 23.5 % 40.1-51.0 L MEAN CORPUSCULAR VOLUME (BEAKER) (test code = 753) 89.4 fL 79. 0-92.2 MEAN CORPUSCULAR HEMOGLOBIN (BEAKER) (test code = 751) 27.8 pg 25.7-32.2 MEAN CORPUSCULAR HEMOGLOBIN CONC (BEAKER) (test code = 752) 31.1 GM/DL 32.3-36.5 L RED CELL DISTRIBUTION WIDTH (BEAKER) (test code = 412) 14.9 % 11.6-14.4 H PLATELET COUNT (BEAKER) (test code = 756) 241 K/CU MM 150-450 MEAN PLATELET VOLUME (BEAKER) (test code = 754) 10.5 fL 9.4-12 .4 NUCLEATED RED BLOOD CELLS (BEAKER) (test code = 413) 0 /100 WBC 0 -0 NEUTROPHILS RELATIVE PERCENT (BEAKER) (test code = 429) 83 % LYMPHOCYTES RELATIVE PERCENT (BEAKER) (test code = 430) 10 % MONOCYTES RELATIVE PERCENT (BEAKER) (test code = 431) 6 % EOSINOPHILS RELATIVE PERCENT (BEAKER) (test code = 432) 0 % BASOPHILS RELATIVE PERCENT (BEAKER) (test code = 437) 0 % NEUTROPHILS ABSOLUTE COUNT (BEAKER) (test code = 670) 7.95 K/ L 1.78-5.38 H LYMPHOCYTES ABSOLUTE COUNT (BEAKER) (test code = 414) 0.91 K/ L 1.32-3.57 L MONOCYTES ABSOLUTE COUNT (BEAKER) (test code = 415) 0.61 K/ L 0. 30-0.82 EOSINOPHILS ABSOLUTE COUNT (BEAKER) (test code = 416) 0.02 K/ L 0.04-0.54 L BASOPHILS ABSOLUTE COUNT (BEAKER) (test code = 417) 0.01 K/ L 0. 01-0.08 IMMATURE GRANULOCYTES-RELATIVE PERCENT (BEAKER) (test code = 2801) 0 % 0-1 RAD, CHEST, 1 VIEW, NON [id number] 04:03:00Reason for exam:->s/p RIGHT decorticationShould this be performed at the bedside?->YesFINAL REPORT RAD, CHEST, 1 VIEW, NON DEPT INDICATION: s/p RIGHT decortication COMPARISON: Prior day's exam FINDINGS: Portable frontal view of the chest. IMPRESSION: Support Lines: No significant change. Lungs and pleura: Unchanged airspace and pleural opacities. No pneumothorax.Heart and mediastinum: Stable contours. Additional findings: None. Signed: Samir Rivera MDReport Verified Date/Time: 05/19/2020 04:03:40 D GAS, [id number] 03:57:00* Test Item Value Reference Range Interpretation Comments PH ARTERIAL (BEAKER) (test code = 383) 7.49 7.35-7.45 H PCO2 ARTERIAL (BEAKER) (test code = 384) 46 mmHg 35-45 H PO2 ARTERIAL (BEAKER) (test code = 385) 110 mmHg 80-90 H O2 SATURATION ARTERIAL (BEAKER) (test code = 386) 98.4 % 96.0 -97.0 H HCO3 ARTERIAL (BEAKER) (test code = 388) 35 mmol/L 21-29 H BASE EXCESS ARTERIAL (BEAKER) (test code = 387) 10.1 mmol/L -2.0-3 .0 H PATIENT TEMPERATURE (BEAKER) (test code = 1818) 36.5 C FIO2 (BEAKER) (test code = 1819) 40.0 % POCT-GLUCOSE [id number] 23:25:00* Test Item Value Reference Range Interpretation Comments POC-GLUCOSE METER (BEAKER) (test code = 1538) 166 mg/dL 70-110 H : TESTED AT [address], [address]: Pneumatic Tube Operator/Movie Actor ID = [id number] for ELIU DO BASIC METABOLIC [id number] 19:02:00* Test Item Value Reference Range Interpretation Comments SODIUM (BEAKER) (test code = 381) 137 meq/L 136-145 POTASSIUM (BEAKER) (test code = 379) 4.7 meq/L 3.5-5.1 CHLORIDE (BEAKER) (test code = 382) 102 meq/L 98-107 CO2 (BEAKER) (test code = 355) 28 meq/L 22-29 BLOOD UREA NITROGEN (BEAKER) (test code = 354) 23 mg/dL 7-21 H CREATININE (BEAKER) (test code = 358) 1.10 mg/dL 0.57-1.25 GLUCOSE RANDOM (BEAKER) (test code = 652) 139 mg/dL 70-105 H CALCIUM (BEAKER) (test code = 697) 8.3 mg/dL 8.4-10.2 L EGFR (BEAKER) (test code = 1092) 76 mL/min/1.73 sq m ESTIMATED GFR IS NOT ACCURATE CREATININE CLEARANCE IN PREDICTING GLOMERULAR FILTRATION RATE. ESTIMATED GFR IS NOT APPLICABLE FOR DIALYSIS PATIENTS. Pneumatic Tube Operator ID - DBPOCT-GLUCOSE [id number] 18:02:00* Test Item Value Reference Range Interpretation Comments POC-GLUCOSE METER (BEAKER) (test code = 1538) 130 mg/dL 70-110 H : TESTED AT [facility] [address], [address]: Pneumatic Tube Operator/Movie Actor ID = [id number] for PETER BALDERRAMA BASIC METABOLIC [id number] 13:09:00* Test Item Value Reference Range Interpretation Comments SODIUM (BEAKER) (test code = 381) 140 meq/L 136-145 POTASSIUM (BEAKER) (test code = 379) 4.4 meq/L 3.5-5.1 CHLORIDE (BEAKER) (test code = 382) 103 meq/L 98-107 CO2 (BEAKER) (test code = 355) 34 meq/L 22-29 H BLOOD UREA NITROGEN (BEAKER) (test code = 354) 24 mg/dL 7-21 H CREATININE (BEAKER) (test code = 358) 1.05 mg/dL 0.57-1.25 GLUCOSE RANDOM (BEAKER) (test code = 652) 113 mg/dL 70-105 H CALCIUM (BEAKER) (test code = 697) 8.1 mg/dL 8.4-10.2 L EGFR (BEAKER) (test code = 1092) 80 mL/min/1.73 sq m ESTIMATED GFR IS NOT ACCURATE CREATININE CLEARANCE IN PREDICTING GLOMERULAR FILTRATION RATE. ESTIMATED GFR IS NOT APPLICABLE FOR DIALYSIS PATIENTS. Pneumatic Tube Operator ID - ASHLEY ALMAZ GAS, [id number] 12:58:00* Test Item Value Reference Range Interpretation Comments PH ARTERIAL (BEAKER) (test code = 383) 7.41 7.35-7.45 PCO2 ARTERIAL (BEAKER) (test code = 384) 57 mmHg 35-45 H PO2 ARTERIAL (BEAKER) (test code = 385) 94 mmHg 80-90 H O2 SATURATION ARTERIAL (BEAKER) (test code = 386) 97.1 % 96.0 -97.0 H HCO3 ARTERIAL (BEAKER) (test code = 388) 35 mmol/L 21-29 H BASE EXCESS ARTERIAL (BEAKER) (test code = 387) 9.0 mmol/L -2.0-3 .0 H PATIENT TEMPERATURE (BEAKER) (test code = 1818) 37.0 C POCT-GLUCOSE [id number] 12:18:00* Test Item Value Reference Range Interpretation Comments POC-GLUCOSE METER (BEAKER) (test code = 1538) 104 mg/dL 70-110 : TESTED AT [facility] [address], [address]: Pneumatic Tube Operator/Movie Actor ID = [id number] for MICHELLE EVANS [id number] 08:37:00* Test Item Value Reference Range Interpretation Comments PHOSPHORUS (BEAKER) (test code = 604) 4.2 mg/dL 2.3-4.7 Specimen slightly hemolyzed Pneumatic Tube Operator ID - ASHLEY ROCAELOCT-GLUCOSE [id number] 06:13:00* Test Item Value Reference Range Interpretation Comments POC-GLUCOSE METER (BEAKER) (test code = 1538) 87 mg/dL 70-110 : TESTED AT [place] [id number], [address]: Pneumatic Tube Operator/Movie Actor ID = [id number] for JUAN CARLOS ARAGON [id number] 05:24:00* Test Item Value Reference Range Interpretation Comments MAGNESIUM (BEAKER) (test code = 627) 2.0 mg/dL 1.6-2.6 Pneumatic Tube Operator ID - ELAINE LBASIC METABOLIC [id number] 05:24:00* Test Item Value Reference Range Interpretation Comments SODIUM (BEAKER) (test code = 381) 138 meq/L 136-145 POTASSIUM (BEAKER) (test code = 379) 4.4 meq/L 3.5-5.1 CHLORIDE (BEAKER) (test code = 382) 101 meq/L 98-107 CO2 (BEAKER) (test code = 355) 33 meq/L 22-29 H BLOOD UREA NITROGEN (BEAKER) (test code = 354) 25 mg/dL 7-21 H CREATININE (BEAKER) (test code = 358) 1.05 mg/dL 0.57-1.25 GLUCOSE RANDOM (BEAKER) (test code = 652) 87 mg/dL 70-105 CALCIUM (BEAKER) (test code = 697) 8.1 mg/dL 8.4-10.2 L EGFR (BEAKER) (test code = 1092) 80 mL/min/1.73 sq m ESTIMATED GFR IS NOT ACCURATE CREATININE CLEARANCE IN PREDICTING GLOMERULAR FILTRATION RATE. ESTIMATED GFR IS NOT APPLICABLE FOR DIALYSIS PATIENTS. Pneumatic Tube Operator ID - ELAINE HOLLYLOOD GAS, [id number] 04:55:00* Test Item Value Reference Range Interpretation Comments PH ARTERIAL (BEAKER) (test code = 383) 7.44 7.35-7.45 PCO2 ARTERIAL (BEAKER) (test code = 384) 53 mmHg 35-45 H PO2 ARTERIAL (BEAKER) (test code = 385) 155 mmHg 80-90 H O2 SATURATION ARTERIAL (BEAKER) (test code = 386) 99.1 % 96.0 -97.0 H HCO3 ARTERIAL (BEAKER) (test code = 388) 35 mmol/L 21-29 H BASE EXCESS ARTERIAL (BEAKER) (test code = 387) 9.6 mmol/L -2.0-3 .0 H PATIENT TEMPERATURE (BEAKER) (test code = 1818) 35.9 C FIO2 (BEAKER) (test code = 1819) 40.0 % CBC W/PLT COUNT & AUTO [id number] 04:53:00* Test Item Value Reference Range Interpretation Comments WHITE BLOOD CELL COUNT (BEAKER) (test code = 775) 6.4 K/ L 3.5- 10.5 RED BLOOD CELL COUNT (BEAKER) (test code = 761) 2.66 M/ L 4.63-6 .08 L HEMOGLOBIN (BEAKER) (test code = 410) 7.3 GM/DL 13.7-17.5 L HEMATOCRIT (BEAKER) (test code = 411) 23.7 % 40.1-51.0 L MEAN CORPUSCULAR VOLUME (BEAKER) (test code = 753) 89.1 fL 79. 0-92.2 MEAN CORPUSCULAR HEMOGLOBIN (BEAKER) (test code = 751) 27.4 pg 25.7-32.2 MEAN CORPUSCULAR HEMOGLOBIN CONC (BEAKER) (test code = 752) 30.8 GM/DL 32.3-36.5 L RED CELL DISTRIBUTION WIDTH (BEAKER) (test code = 412) 15.0 % 11.6-14.4 H PLATELET COUNT (BEAKER) (test code = 756) 201 K/CU MM 150-450 MEAN PLATELET VOLUME (BEAKER) (test code = 754) 10.3 fL 9.4-12 .4 NUCLEATED RED BLOOD CELLS (BEAKER) (test code = 413) 0 /100 WBC 0 -0 NEUTROPHILS RELATIVE PERCENT (BEAKER) (test code = 429) 76 % LYMPHOCYTES RELATIVE PERCENT (BEAKER) (test code = 430) 14 % MONOCYTES RELATIVE PERCENT (BEAKER) (test code = 431) 9 % EOSINOPHILS RELATIVE PERCENT (BEAKER) (test code = 432) 1 % BASOPHILS RELATIVE PERCENT (BEAKER) (test code = 437) 0 % NEUTROPHILS ABSOLUTE COUNT (BEAKER) (test code = 670) 4.81 K/ L 1.78-5.38 LYMPHOCYTES ABSOLUTE COUNT (BEAKER) (test code = 414) 0.88 K/ L 1.32-3.57 L MONOCYTES ABSOLUTE COUNT (BEAKER) (test code = 415) 0.54 K/ L 0. 30-0.82 EOSINOPHILS ABSOLUTE COUNT (BEAKER) (test code = 416) 0.09 K/ L 0.04-0.54 BASOPHILS ABSOLUTE COUNT (BEAKER) (test code = 417) 0.01 K/ L 0. 01-0.08 IMMATURE GRANULOCYTES-RELATIVE PERCENT (BEAKER) (test code = 2801) 1 % 0-1 RAD, CHEST, 1 VIEW, NON [id number] 02:23:00Reason for exam:->s/p RIGHT decorticationShould this be performed at the bedside?->YesFINAL REPORT RAD, CHEST, 1 VIEW, NON DEPT INDICATION: s/p RIGHT decortication COMPARISON: Prior day's exam FINDINGS: Portable frontal view of the chest. IMPRESSION: Support Lines: No significant change. Lungs and pleura: Unchanged airspace and pleural opacities. No pneumothorax.Heart and mediastinum: Stable contours. Additional findings: None. Signed: Samir Rivera MDReport Verified Date/Time: 05/18/2020 02:23:42 C METABOLIC [id number] 01:10:00* Test Item Value Reference Range Interpretation Comments SODIUM (BEAKER) (test code = 381) 137 meq/L 136-145 POTASSIUM (BEAKER) (test code = 379) 4.7 meq/L 3.5-5.1 Specimen slightly hemolyzed CHLORIDE (BEAKER) (test code = 382) 102 meq/L 98-107 CO2 (BEAKER) (test code = 355) 30 meq/L 22-29 H BLOOD UREA NITROGEN (BEAKER) (test code = 354) 25 mg/dL 7-21 H CREATININE (BEAKER) (test code = 358) 1.06 mg/dL 0.57-1.25 Specimen slightly hemolyzed GLUCOSE RANDOM (BEAKER) (test code = 652) 82 mg/dL 70-105 CALCIUM (BEAKER) (test code = 697) 7.8 mg/dL 8.4-10.2 L EGFR (BEAKER) (test code = 1092) 80 mL/min/1.73 sq m ESTIMATED GFR IS NOT ACCURATE CREATININE CLEARANCE IN PREDICTING GLOMERULAR FILTRATION RATE. ESTIMATED GFR IS NOT APPLICABLE FOR DIALYSIS PATIENTS. Pneumatic Tube Operator ID - PIAYA LBLOOD GAS, [id number] 00:26:00* Test Item Value Reference Range Interpretation Comments PH ARTERIAL (BEAKER) (test code = 383) 7.44 7.35-7.45 PCO2 ARTERIAL (BEAKER) (test code = 384) 53 mmHg 35-45 H PO2 ARTERIAL (BEAKER) (test code = 385) 153 mmHg 80-90 H O2 SATURATION ARTERIAL (BEAKER) (test code = 386) 99.0 % 96.0 -97.0 H HCO3 ARTERIAL (BEAKER) (test code = 388) 36 mmol/L 21-29 H BASE EXCESS ARTERIAL (BEAKER) (test code = 387) 10.2 mmol/L -2.0-3 .0 H PATIENT TEMPERATURE (BEAKER) (test code = 1818) 36.5 C FIO2 (BEAKER) (test code = 1819) 40.0 % POCT-GLUCOSE [id number] 00:11:00* Test Item Value Reference Range Interpretation Comments POC-GLUCOSE METER (BEAKER) (test code = 1538) 80 mg/dL 70-110 : TESTED AT [facility] [address], [address]: Pneumatic Tube Operator/Movie Actor ID = [id number] for UJUAN CARLOS GLEZ EEG AWAKE/ASLEEP AND [id number] 18:40:00Reason for exam:->seizures?Date(s) of EE05/17/2020 DATE OF REPORT: 05/17/2020ACC: [id number] Number: [id number] Location: Inpatient ICUStart time: 05/17/2020 13:11Stop time: 05/17/2020 13:32ICD-10: R41.82 CPT Code: 83275 HISTORY: 35 y.o. male with uncon trolled diabetes mellitus, and recent COVID pneumonia who is status post tracheo stomy placement, acute renal insufficiency, DVT, and cardio pulmonary arrest in March 2020 with severe hypoxemia and left hemiparesis. MEDICATIONS THAT COULD AF FECT EEG: Terazosin, Propofol, Voriconazole TECHNICAL SUMMARY: This is a digita l video-EEG recorded with 32 input channels reviewed with bipolar and referentia l montages using the modified combinatorial system nomenclature. DESCRIPTION OF RECORD: Continuous myogenic artifact obscures large portions or the record. Dur ing the maximally alert state the background is populated with polymorphic 1-3 H z activity with admixed 4-6 Hz frequencies. There is no posterior dominant rhyth m nor an amplitude-frequency gradient seen. The EEG background is reactive to ex ternal stimulation and there is some spontaneous variability of the background r hythms. No state changes were seen. SIGNIFICANT VIDEO EVENTS: None SIGNIFICAN T ELECTROCARDIOGRAM EVENTS: None HV: Hyperventilation was not performed. PHOTI C STIMULATION: Photic stimulation was done from 1-33 Hz; no photic driving was s een; photoparoxysmal responses were absent. IMPRESSION: Abnormal EEG in Coma 1) Generalized slowing of the background rhythms, moderate. CLINICAL C ORRELATION: Generalized slowing as seen in this record is consistent with an erika ologically nonspecific moderate encephalopathy. An EEG without epileptiform disc harges does not exclude the possibility of epilepsy. If the clinical suspicion of epilepsy remains, consider additional EEG recordings. Consider serial EEG's t o further aid in prognosis. Deven Mayers MDNeurophysiology Fellow I certify that I have reviewed the entire EEG, read and edited the report and agree with the fellow's findings. Francisco Lopez M.D., FACPOLA, FAAN, FAESProfessor of Uri rology, [facility] College of MedicineDirector, [facility] Head, [facility] AWAKE/[id number] 18:40:00Interface, External Ris In - 05/17/2020 6:40 PM CDTDate(s) of EE05/17/2020 DATE OF REPORT: 05/17/2020ACC: [id number] Number: [id number] Location: Inpatient ICUStart time: 05/17/2020 13:11Stop time: 05/17/2020 13:32ICD-10: R41.82 CPT Code: 33131 HISTORY: 35 y.o. male with uncontrolled diabetes mellitus, and recent COVID pneumonia who is status post tracheostomy placement, acute renal insufficiency, DVT, and cardio pulmonary arrest in March 2020 with severe hypoxem ia and left hemiparesis. MEDICATIONS THAT COULD AFFECT EEG: Terazosin, Propof ol, Voriconazole TECHNICAL SUMMARY: This is a digital video-EEG recorded with 32 input channels reviewed with bipolar and referential montages using the modifie d combinatorial system nomenclature. DESCRIPTION OF RECORD: Continuous myogenic artifact obscures large portions or the record. During the maximally alert stat e the background is populated with polymorphic 1-3 Hz activity with admixed 4-6 Hz frequencies. There is no posterior dominant rhythm nor an amplitude-frequency gradient seen. The EEG background is reactive to external stimulation and there is some spontaneous variability of the background rhythms. No state changes wer e seen. SIGNIFICANT VIDEO EVENTS: None SIGNIFICANT ELECTROCARDIOGRAM EVENTS: None HV: Hyperventilation was not performed. PHOTIC STIMULATION: Photic stimul ation was done from 1-33 Hz; no photic driving was seen; photoparoxysmal respons es were absent. IMPRESSION: Abnormal EEG in Coma 1) Generalized slo wing of the background rhythms, moderate. CLINICAL CORRELATION: Generalized slow ing as seen in this record is consistent with an etiologically nonspecific moder ate encephalopathy. An EEG without epileptiform discharges does not exclude the possibility of epilepsy. If the clinical suspicion of epilepsy remains, conside r additional EEG recordings. Consider serial EEG's to further aid in prognosis. Deven Mayers MDNeurophysiology Fellow I certify that I have reviewed the en tire EEG, read and edited the report and agree with the fellow's findings. Francisco Lopez M.D., FACNS, FAAN, FAESProfessor of Neurology, [facility] dicineDirector, [facility] CenterH[facility] Neuroph ysiology Lab 06 :40 PM [facility], NON [id number] 18:24:00Reason for exam:->SOBShould this be performed at the bedside?->YesFINAL REPORT RAD, CHEST, 1 VIEW, NON DEPT INDICATION: SOB COMPARISON: 8 hours prior FINDINGS: Portable frontal view of the chest. IMPRE SSION: Support Lines: Stable. Lungs and pleura: Unchanged interstitial and pleu ral opacities. No pneumothorax.Heart and mediastinum: Stable contours. Additiona l findings: None. Signed: JR Escamilla Robert MDReport Verified Date/Time: 05/17/2020 18:24:59 Reading Location: [address] Neuro Reading Room Electr onically signed by: SHELLIE ESCAMILLA on 05/17/2020 06:24 PM BLOOD GAS, [id number] 18:23:00* Test Item Value Reference Range Interpretation Comments PH ARTERIAL (BEAKER) (test code = 383) 7.51 7.35-7.45 H PCO2 ARTERIAL (BEAKER) (test code = 384) 47 mmHg 35-45 H PO2 ARTERIAL (BEAKER) (test code = 385) 107 mmHg 80-90 H O2 SATURATION ARTERIAL (BEAKER) (test code = 386) 98.4 % 96.0 -97.0 H HCO3 ARTERIAL (BEAKER) (test code = 388) 38 mmol/L 21-29 H BASE EXCESS ARTERIAL (BEAKER) (test code = 387) 13.0 mmol/L -2.0-3 .0 H PATIENT TEMPERATURE (BEAKER) (test code = 1818) 35.7 C FIO2 (BEAKER) (test code = 1819) 40.0 % BASIC METABOLIC [id number] 17:56:00* Test Item Value Reference Range Interpretation Comments SODIUM (BEAKER) (test code = 381) 138 meq/L 136-145 POTASSIUM (BEAKER) (test code = 379) 3.6 meq/L 3.5-5.1 CHLORIDE (BEAKER) (test code = 382) 99 meq/L 98-107 CO2 (BEAKER) (test code = 355) 36 meq/L 22-29 H BLOOD UREA NITROGEN (BEAKER) (test code = 354) 25 mg/dL 7-21 H CREATININE (BEAKER) (test code = 358) 1.06 mg/dL 0.57-1.25 GLUCOSE RANDOM (BEAKER) (test code = 652) 107 mg/dL 70-105 H CALCIUM (BEAKER) (test code = 697) 8.1 mg/dL 8.4-10.2 L EGFR (BEAKER) (test code = 1092) 80 mL/min/1.73 sq m ESTIMATED GFR IS NOT ACCURATE CREATININE CLEARANCE IN PREDICTING GLOMERULAR FILTRATION RATE. ESTIMATED GFR IS NOT APPLICABLE FOR DIALYSIS PATIENTS. Pneumatic Tube Operator ID - [id number] GAS, [id number] 17:32:00* Test Item Value Reference Range Interpretation Comments PH ARTERIAL (BEAKER) (test code = 383) 7.61 7.35-7.45 HH PCO2 ARTERIAL (BEAKER) (test code = 384) 37 mmHg 35-45 PO2 ARTERIAL (BEAKER) (test code = 385) 136 mmHg 80-90 H O2 SATURATION ARTERIAL (BEAKER) (test code = 386) 99.2 % 96.0 -97.0 H HCO3 ARTERIAL (BEAKER) (test code = 388) 37 mmol/L 21-29 H BASE EXCESS ARTERIAL (BEAKER) (test code = 387) 13.5 mmol/L -2.0-3 .0 H PATIENT TEMPERATURE (BEAKER) (test code = 1818) 35.5 C FIO2 (BEAKER) (test code = 1819) 40.0 % Voriconazole [id number] 17:12:00* Test Item Value Reference Range Interpretation Comments Voriconazole, Quantitation by LC-MS/MS (test code = 76003-5) 1.2 1- 6 g/mL REFERENCE INTERVAL -Therapeutic Range (trough):1.0-6.0 g/mL Toxic Level:Greater than 6.0 g/mL INTERPRETIVE DATA -Toxic concentrations may cause nausea, vomiting, peripheral edema and elevated serum liver enzymes. [email or web address] Compliance Statement B:This test was developed and its performance characteristics determined by [employer]. The U.S. Food and Drug Administration has not approved or cleared this test; however, FDA clearance or approval is not currently required for clinical use. The results are not intended to be used as the sole means for clinical diagnosis or patient management decisions. Lab Interpretation (test code = 57750-3) Normal [facility], [id number] 16:41:00* Test Item Value Reference Range Interpretation Comments PH ARTERIAL (BEAKER) (test code = 383) 7.65 7.35-7.45 HH PCO2 ARTERIAL (BEAKER) (test code = 384) 31 mmHg 35-45 L PO2 ARTERIAL (BEAKER) (test code = 385) 57 mmHg 80-90 L O2 SATURATION ARTERIAL (BEAKER) (test code = 386) 95.8 % 96.0 -97.0 L HCO3 ARTERIAL (BEAKER) (test code = 388) 34 mmol/L 21-29 H BASE EXCESS ARTERIAL (BEAKER) (test code = 387) 11.5 mmol/L -2.0-3 .0 H PATIENT TEMPERATURE (BEAKER) (test code = 1818) 35.0 C FIO2 (BEAKER) (test code = 1819) 40.0 % TROPONIN [id number] 14:05:00* Test Item Value Reference Range Interpretation Comments TROPONIN I (BEAKER) (test code = 397) < ng/mL 0.00-0.03 Troponin I (TnI) levels must be interpreted in the context of the presenting sym ptoms and the clinical findings. Elevated TnI levels indicate myocardial damage, but are not specific for ischemic heart disease. Elevated TnI levels are seen i n patients with other cardiac conditions (including myocarditis and congestive h eart failure), and slight TnI elevations occur in patients with other conditions , including sepsis, renal failure, acidosis, acute neurological disease, and per sistent tachyarrhythmia.Pneumatic Tube Operator ID - AAHAMIDCT, BRAIN, WITHOUT CONTRAST 2020-05-17 12:14:00FINAL REPORT CT Head without contrast CLINICAL HISTORY: [...] acute infarct, hemorrhage, or hydrocephalus. Signed: Edelmira Mendieta MDReport Verified Date/Time: 05/17/2020 12:14:30 Reading Location: [facility] C013V Neuro Reading Room brain without IV [id number] 12:14:00Interface, External Ris In - 05/17/2020 12:[address] Head without contrast CLINICAL HISTORY: [...] acute infarct, hemorrhage, or hydrocephalus. Signed: Edelmira Mendieta MDReport Verified Date/Time: 05/17/2020 12:14:30 Reading Location: [facility] C013 Neuro Re ading Room 12: 14 PM [facility] & [facility]O [id number] 11:42:00* Test Item Value Reference Range Interpretation Comments WHITE BLOOD CELL COUNT (BEAKER) (test code = 775) 9.9 K/ L 3.5- 10.5 RED BLOOD CELL COUNT (BEAKER) (test code = 761) 2.93 M/ L 4.63-6 .08 L HEMOGLOBIN (BEAKER) (test code = 410) 8.2 GM/DL 13.7-17.5 L HEMATOCRIT (BEAKER) (test code = 411) 25.9 % 40.1-51.0 L MEAN CORPUSCULAR VOLUME (BEAKER) (test code = 753) 88.4 fL 79. 0-92.2 MEAN CORPUSCULAR HEMOGLOBIN (BEAKER) (test code = 751) 28.0 pg 25.7-32.2 MEAN CORPUSCULAR HEMOGLOBIN CONC (BEAKER) (test code = 752) 31.7 GM/DL 32.3-36.5 L RED CELL DISTRIBUTION WIDTH (BEAKER) (test code = 412) 14.5 % 11.6-14.4 H PLATELET COUNT (BEAKER) (test code = 756) 223 K/CU MM 150-450 MEAN PLATELET VOLUME (BEAKER) (test code = 754) 10.3 fL 9.4-12 .4 NUCLEATED RED BLOOD CELLS (BEAKER) (test code = 413) 0 /100 WBC 0 -0 NEUTROPHILS RELATIVE PERCENT (BEAKER) (test code = 429) 86 % LYMPHOCYTES RELATIVE PERCENT (BEAKER) (test code = 430) 8 % MONOCYTES RELATIVE PERCENT (BEAKER) (test code = 431) 6 % EOSINOPHILS RELATIVE PERCENT (BEAKER) (test code = 432) 0 % BASOPHILS RELATIVE PERCENT (BEAKER) (test code = 437) 0 % NEUTROPHILS ABSOLUTE COUNT (BEAKER) (test code = 670) 8.45 K/ L 1.78-5.38 H LYMPHOCYTES ABSOLUTE COUNT (BEAKER) (test code = 414) 0.76 K/ L 1.32-3.57 L MONOCYTES ABSOLUTE COUNT (BEAKER) (test code = 415) 0.60 K/ L 0. 30-0.82 EOSINOPHILS ABSOLUTE COUNT (BEAKER) (test code = 416) 0.01 K/ L 0.04-0.54 L BASOPHILS ABSOLUTE COUNT (BEAKER) (test code = 417) 0.01 K/ L 0. 01-0.08 IMMATURE GRANULOCYTES-RELATIVE PERCENT (BEAKER) (test code = 2801) 0 % 0-1 BLOOD GAS, [id number] 11:17:00* Test Item Value Reference Range Interpretation Comments PH ARTERIAL (BEAKER) (test code = 383) 7.49 7.35-7.45 H PCO2 ARTERIAL (BEAKER) (test code = 384) 45 mmHg 35-45 PO2 ARTERIAL (BEAKER) (test code = 385) 130 mmHg 80-90 H O2 SATURATION ARTERIAL (BEAKER) (test code = 386) 98.8 % 96.0 -97.0 H HCO3 ARTERIAL (BEAKER) (test code = 388) 34 mmol/L 21-29 H BASE EXCESS ARTERIAL (BEAKER) (test code = 387) 9.3 mmol/L -2.0-3 .0 H PATIENT TEMPERATURE (BEAKER) (test code = 1818) 37.0 C FIO2 (BEAKER) (test code = 1819) 40.0 % Calcium, [id number] 10:29:00* Test Item Value Reference Range Interpretation Comments Calcium, Ion (test code = 1994-3) 1.06 mmol/L 1.12-1.27 L pH, Blood (test code = 67622-8) 7.52 Lab Interpretation (test code = 73108-2) Abnormal [facility] HospitalCALCI[facility], [id number] 10:29:00* Test Item Value Reference Range Interpretation Comments CALCIUM IONIZED (BEAKER) (test code = 698) 1.06 mmol/L 1.12-1.27 L PH, BLOOD (BEAKER) (test code = 1810) 7.52 [id number] 10:20:00* Test Item Value Reference Range Interpretation Comments PHOSPHORUS (BEAKER) (test code = 604) 5.0 mg/dL 2.3-4.7 H Pneumatic Tube Operator ID - [id number] 10:20:00* Test Item Value Reference Range Interpretation Comments MAGNESIUM (BEAKER) (test code = 627) 2.0 mg/dL 1.6-2.6 Pneumatic Tube Operator ID - LABASIC METABOLIC [id number] 10:20:00* Test Item Value Reference Range Interpretation Comments SODIUM (BEAKER) (test code = 381) 135 meq/L 136-145 L POTASSIUM (BEAKER) (test code = 379) 4.5 meq/L 3.5-5.1 CHLORIDE (BEAKER) (test code = 382) 96 meq/L 98-107 L CO2 (BEAKER) (test code = 355) 32 meq/L 22-29 H BLOOD UREA NITROGEN (BEAKER) (test code = 354) 24 mg/dL 7-21 H CREATININE (BEAKER) (test code = 358) 1.13 mg/dL 0.57-1.25 GLUCOSE RANDOM (BEAKER) (test code = 652) 220 mg/dL 70-105 H CALCIUM (BEAKER) (test code = 697) 8.7 mg/dL 8.4-10.2 EGFR (BEAKER) (test code = 1092) 74 mL/min/1.73 sq m ESTIMATED GFR IS NOT ACCURATE CREATININE CLEARANCE IN PREDICTING GLOMERULAR FILTRATION RATE. ESTIMATED GFR IS NOT APPLICABLE FOR DIALYSIS PATIENTS. Pneumatic Tube Operator ID - LAHGB/HCT (H&H)-Stat [id number] 10:14:00* Test Item Value Reference Range Interpretation Comments Hemoglobin (test code = 786-4) 8.0 g/dL 13-16.8 L Hematocrit (test code = 4544-3) 24.0 % 40-50 L Lab Interpretation (test code = 92018-6) [facility]normal [facility] [id number] 10:14:00* Test Item Value Reference Range Interpretation Comments Glucose (test code = 2345-7) 223 mg/dL 70-110 H Lab Interpretation (test code = 60403-3) [facility] [id number] 10:14:00* Test Item Value Reference Range Interpretation Comments Sodium (test code = 2951-2) 133 meq/L 136-145 L Lab Interpretation (test code = 67552-4) Abnormal [facility] [id number] 10:14:00* Test Item Value Reference Range Interpretation Comments Potassium (test code = 2823-3) 4.1 meq/L 3.6-5.5 Lab Interpretation (test code = 06136-3) Normal [facility] [id number] 10:14:00* Test Item Value Reference Range Interpretation Comments POTASSIUM (BEAKER) (test code = 379) 4.1 meq/L 3.6-5.5 SODIUM NA-STAT [id number] 10:14:00* Test Item Value Reference Range Interpretation Comments SODIUM (BEAKER) (test code = 381) 133 meq/L 136-145 L GLUCOSE-STAT [id number] 10:14:00* Test Item Value Reference Range Interpretation Comments GLUCOSE RANDOM (BEAKER) (test code = 652) 223 mg/dL 70-110 H HGB/HCT (H&H) - STAT [id number] 10:14:00* Test Item Value Reference Range Interpretation Comments HEMOGLOBIN (BEAKER) (test code = 410) 8.0 g/dL 13.0-16.8 L HEMATOCRIT (BEAKER) (test code = 411) 24.0 % 40.0-50.0 L [id number] 10:00:00* Test Item Value Reference Range Interpretation Comments PROTIME (BEAKER) (test code = 759) 14.3 seconds 11.9-14.2 H INR (BEAKER) (test code = 370) 1.1 <=5.9 PARTIAL THROMBOPLASTIN TIME (BEAKER) (test code = 760) 30.8 seconds 22.5-36.0 Effective 04/21/2019: PT Reference Range ChangeNew: 11.9-14.2 Previous: 11.7-14. 7RECOMMENDED COUMADIN/WARFARIN INR THERAPY RANGESSTANDARD DOSE: 2.0-3.0 Include s: PROPHYLAXIS for venous thrombosis, systemic embolization; TREATMENT for venou s thrombosis and/or pulmonary embolus.HIGH RISK: Target INR is 2.5-3.5 for patie nts wiht mechanical heart valves.POCT-GLUCOSE [id number] 09:44:00* Test Item Value Reference Range Interpretation Comments POC-GLUCOSE METER (BEAKER) (test code = 1538) 183 mg/dL 70-110 H : TESTED AT [address], [address]: Pneumatic Tube Operator/Movie Actor ID = [id number] for PETER BALDERRAMA RAD, CHEST, 1 VIEW, NON [id number] 09:31:00Reason for exam:->SOBShould this be performed at the bedside?->YesFINAL REPORT RAD, CHEST, 1 VIEW, NON DEPT INDICATION: SOB COMPARISON: Prior day's exam FINDINGS: Portable frontal view of the chest. IMPRESSION: Support Lines: Stable. Lungs and pleura: Decreased airspace and pleural opacities. No pneumothorax.Heart and mediastinum: Stable contours. Stable surgical changes.Additional findings: None. Signed: Stanford Miller Verified Date/Time: 05/17/2020 09:31:07 Reading Location: [facility] Radiology Reading Room -GLUCOSE METER 2020-05-17 06:00:00* Test Item Value Reference Range Interpretation Comments POC-GLUCOSE METER (BEAKER) (test code = 1538) 109 mg/dL 70-110 : TESTED AT [facility] [address], [address]: Pneumatic Tube Operator/Movie Actor ID = [id number] for ELIU DO RAD, CHEST, 1 VIEW, NON [id number] 05:15:00Reason for exam:->s/p RIGHT decorticationShould this be performed at the bedside?->YesFINAL REPORT Chest one view. Clinical history: s/p RIGHT decortication Comparison: Chest radiograph 05/16/2020. Technique: A single frontal view of the chest was obtained. Findings:Support lines and tubes are in satisfactory positions.The cardiomediastinal contours are stable. There are diffuse bilateral airspace opacities, right greater than left. There are small bilateral pleural effusions. There is no pneumothorax. Signed: Guadalupe Webb MDReport Verified Date/Time: 05/17/2020 05:15:39 [id number] 03:55:00* Test Item Value Reference Range Interpretation Comments PARTIAL THROMBOPLASTIN TIME (BEAKER) (test code = 760) 41.0 seconds 22.5-36.0 H [id number] 03:54:00* Test Item Value Reference Range Interpretation Comments PHOSPHORUS (BEAKER) (test code = 604) 3.7 mg/dL 2.3-4.7 Pneumatic Tube Operator ID - [id number] 03:54:00* Test Item Value Reference Range Interpretation Comments MAGNESIUM (BEAKER) (test code = 627) 1.9 mg/dL 1.6-2.6 Pneumatic Tube Operator ID - LABASIC METABOLIC [id number] 03:54:00* Test Item Value Reference Range Interpretation Comments SODIUM (BEAKER) (test code = 381) 138 meq/L 136-145 POTASSIUM (BEAKER) (test code = 379) 4.2 meq/L 3.5-5.1 CHLORIDE (BEAKER) (test code = 382) 98 meq/L 98-107 CO2 (BEAKER) (test code = 355) 37 meq/L 22-29 H BLOOD UREA NITROGEN (BEAKER) (test code = 354) 22 mg/dL 7-21 H CREATININE (BEAKER) (test code = 358) 0.95 mg/dL 0.57-1.25 GLUCOSE RANDOM (BEAKER) (test code = 652) 100 mg/dL 70-105 CALCIUM (BEAKER) (test code = 697) 8.0 mg/dL 8.4-10.2 L EGFR (BEAKER) (test code = 1092) 90 mL/min/1.73 sq m ESTIMATED GFR IS NOT ACCURATE CREATININE CLEARANCE IN PREDICTING GLOMERULAR FILTRATION RATE. ESTIMATED GFR IS NOT APPLICABLE FOR DIALYSIS PATIENTS. Pneumatic Tube Operator ID - LACBC W/PLT COUNT & AUTO [id number] 03:30:00* Test Item Value Reference Range Interpretation Comments WHITE BLOOD CELL COUNT (BEAKER) (test code = 775) 5.0 K/ L 3.5- 10.5 RED BLOOD CELL COUNT (BEAKER) (test code = 761) 2.64 M/ L 4.63-6 .08 L HEMOGLOBIN (BEAKER) (test code = 410) 7.4 GM/DL 13.7-17.5 L HEMATOCRIT (BEAKER) (test code = 411) 23.6 % 40.1-51.0 L MEAN CORPUSCULAR VOLUME (BEAKER) (test code = 753) 89.4 fL 79. 0-92.2 MEAN CORPUSCULAR HEMOGLOBIN (BEAKER) (test code = 751) 28.0 pg 25.7-32.2 MEAN CORPUSCULAR HEMOGLOBIN CONC (BEAKER) (test code = 752) 31.4 GM/DL 32.3-36.5 L RED CELL DISTRIBUTION WIDTH (BEAKER) (test code = 412) 14.5 % 11.6-14.4 H PLATELET COUNT (BEAKER) (test code = 756) 193 K/CU MM 150-450 MEAN PLATELET VOLUME (BEAKER) (test code = 754) 10.2 fL 9.4-12 .4 NUCLEATED RED BLOOD CELLS (BEAKER) (test code = 413) 0 /100 WBC 0 -0 NEUTROPHILS RELATIVE PERCENT (BEAKER) (test code = 429) 74 % LYMPHOCYTES RELATIVE PERCENT (BEAKER) (test code = 430) 16 % MONOCYTES RELATIVE PERCENT (BEAKER) (test code = 431) 8 % EOSINOPHILS RELATIVE PERCENT (BEAKER) (test code = 432) 1 % BASOPHILS RELATIVE PERCENT (BEAKER) (test code = 437) 0 % NEUTROPHILS ABSOLUTE COUNT (BEAKER) (test code = 670) 3.72 K/ L 1.78-5.38 LYMPHOCYTES ABSOLUTE COUNT (BEAKER) (test code = 414) 0.82 K/ L 1.32-3.57 L MONOCYTES ABSOLUTE COUNT (BEAKER) (test code = 415) 0.40 K/ L 0. 30-0.82 EOSINOPHILS ABSOLUTE COUNT (BEAKER) (test code = 416) 0.06 K/ L 0.04-0.54 BASOPHILS ABSOLUTE COUNT (BEAKER) (test code = 417) 0.01 K/ L 0. 01-0.08 IMMATURE GRANULOCYTES-RELATIVE PERCENT (BEAKER) (test code = 2801) 0 % 0-1 POCT-GLUCOSE [id number] 00:25:00* Test Item Value Reference Range Interpretation Comments POC-GLUCOSE METER (BEAKER) (test code = 1538) 96 mg/dL 70-110 : TESTED AT [address], [address]: Pneumatic Tube Operator/Movie Actor ID = [id number] for ELIU DO [id number] 20:24:00* Test Item Value Reference Range Interpretation Comments PROTIME (BEAKER) (test code = 759) 14.1 seconds 11.9-14.2 INR (BEAKER) (test code = 370) 1.1 <=5.9 PARTIAL THROMBOPLASTIN TIME (BEAKER) (test code = 760) 45.3 seconds 22.5-36.0 H Effective 04/21/2019: PT Reference Range ChangeNew: 11.9-14.2 Previous: 11.7-14. 7RECOMMENDED COUMADIN/WARFARIN INR THERAPY RANGESSTANDARD DOSE: 2.0-3.0 Include s: PROPHYLAXIS for venous thrombosis, systemic embolization; TREATMENT for venou s thrombosis and/or pulmonary embolus.HIGH RISK: Target INR is 2.5-3.5 for patie nts wiht mechanical heart valves.CT, CTA, [id number] 18:27:00Addendum BeginsREPORT STATUS:A Addendum: May 16, 2020 at 1825 hours I have reviewed the CT images for this study and I concur with the n onvascular imaging findings as dictated. There is a large hematoma in the right posterior lateral chest wall and a focus of contrast extravasation which appears to lie between the sixth and seventh ribs, consistent with an acute hemorrhage, likely from an intercostal artery. Focal consolidative changes in both lower lo bes likely represents atelectasis. Signed: Lalit Johnson MDReport Verified Date/ Time: 05/16/2020 18:27:10 Reading Location: [facility] Radiology Reading RoomAddat[facility] EndsFINAL REPORT CT angiography of the thoracic aorta, 11-May-20 INDICATION: This is a 35 years old male, with haematoma presents for a ssessment. TECHNIQUE: Spiral acquisition before and during intravenous contrast administration using a Siemens CT scanner. Images were obtained before and duri ng the dynamic passage of intravenous contrast material. Multi-planar 3-D volum e-rendering reconstruction was performed using an independent workstation [employer] by the interpreting physician as well as the 3-D specialist for optimal visualisation of the thoracic aorta and its proximal branches. Please refer to t he contrast sheet scanned in the [employer] system for the amount and route of contras t given. This exam was performed according to our departmental dose-optimisation programme, which includes automated exposure control, adjustment of the mA and/ or kV according to patient size and/or use of iterative reconstruction technique . Dose modulation, iterative reconstruction, and/or weight based adjustment of t he mA/kV was utilized to reduce the radiation dose to as low as reasonably achie vable. FINDINGS: VASCULAR: No significant pericardial effusion is seen. The darcie tral pulmonary artery is normal in calibre. The cardiac chambers demonstrate nor mal atrioventricular and ventriculoarterial concordance, and systemic and pulmon zackary venous return. The left ventricle is normal in size. There also appears to b e mild left atrial prominence present. No mitral annular calcification is seen. No aortic valvular calcification is identified. In the available images, coronal artery origins are normal. However, there is scattered calcification identified in the LAD and RCA territories, with motion artefact present. A central venous catheter is identified, with tip identified in the distal SVC. The thoracic aort a is normal in course, contour, and calibre. No ectasia or aneurysmal dilation is identified. There is no evidence of acute aortic pathology, specifically, t here is no dissection, intramural hematoma, or contained rupture. The arch vesse l branching pattern is normal and the visualised portion of the arch vessels are widely patent. NON-VASCULAR: THYROID: Unchanged Multiple lymph nodes are seen , unchanged. TRACHEOSTOMY TUBE: Unchanged LUNGS: See prior report by Curriculum Advisory Teacher Radiologist for details. Bibasal pleural effusions identified. Associated atelec tatic changes/consolidation seen in the lung bases. Tiny pneumothorax is identif ied in the right lung, for example at image 148. Airspace opacity is identified especially in the right apex in the right middle lobe. Nonspecific groundglass o pacity are also seen for example in the left lung, and may represent cardiac con gestion. UPPER ABDOMEN: Unchanged BONY STRUCTURES: Unchanged Large haematoma is identified in the right lateral chest wall, external to the rib cage, for exampl e, from image 38 extending down to image 152. No acute enhancement is noted by [place] unit measurement. However, small patchy enhancement is identified in t he right, image 110, also seen in the second dynamic at image 110 as well. This could potentially represent the location of bleeding. The exact vessel is uncert ain, and could be, and one of the intercostal. By visual estimation, no gross in crease in size of the haematoma is noted when compared to prior examination a fe w hours ago. CONCLUSIONS: 1. A large haematoma is identified in the right later al chest wall, external to the rib cage. [...] bleeding. 2. Unremarkable thoracic aorta. 3. Please refe r to the above regarding pulmonary findings, with the description by the Consult ant Radiologist a few hours ago. 4. Other findings as described above. 5. An a ddendum will be dictated regarding the non-vascular findings by the Curriculum Advisory Teacher R adiologist. Signed: Nelson Rodriguez MDReport Verified Date/Time: 05/11/2020 1 1:56:23 Reading Location: [place] [address] CT Reading Room -GLUCOSE [id number] 18:13:00* Test Item Value Reference Range Interpretation Comments POC-GLUCOSE METER (BEAKER) (test code = 1538) 129 mg/dL 70-110 H : TESTED AT [place] [id number], [address]: Pneumatic Tube Operator/Movie Actor ID = [id number] for JUAN TREVINO [id number] 14:29:00* Test Item Value Reference Range Interpretation Comments PARTIAL THROMBOPLASTIN TIME (BEAKER) (test code = 760) 33.6 seconds 22.5-36.0 Prior to initiating heparinCBC (HEMOGRAM ONLY)2020-05-16 14:09:00* Test Item Value Reference Range Interpretation Comments WHITE BLOOD CELL COUNT (BEAKER) (test code = 775) 5.1 K/ L 3.5- 10.5 RED BLOOD CELL COUNT (BEAKER) (test code = 761) 2.70 M/ L 4.63-6 .08 L HEMOGLOBIN (BEAKER) (test code = 410) 7.6 GM/DL 13.7-17.5 L HEMATOCRIT (BEAKER) (test code = 411) 23.9 % 40.1-51.0 L MEAN CORPUSCULAR VOLUME (BEAKER) (test code = 753) 88.5 fL 79. 0-92.2 MEAN CORPUSCULAR HEMOGLOBIN (BEAKER) (test code = 751) 28.1 pg 25.7-32.2 MEAN CORPUSCULAR HEMOGLOBIN CONC (BEAKER) (test code = 752) 31.8 GM/DL 32.3-36.5 L RED CELL DISTRIBUTION WIDTH (BEAKER) (test code = 412) 14.7 % 11.6-14.4 H PLATELET COUNT (BEAKER) (test code = 756) 208 K/CU MM 150-450 MEAN PLATELET VOLUME (BEAKER) (test code = 754) 9.7 fL 9.4-12 .4 NUCLEATED RED BLOOD CELLS (BEAKER) (test code = 413) 0 /100 WBC 0 -0 POCT-GLUCOSE [id number] 12:40:00* Test Item Value Reference Range Interpretation Comments POC-GLUCOSE METER (BEAKER) (test code = 1538) 121 mg/dL 70-110 H : TESTED AT [place] [id number] [facility], [address]: Pneumatic Tube Operator/Movie Actor ID = [id number] for JUAN TREVINO RAD, CHEST, 1 VIEW, NON [id number] 07:45:00Reason for exam:->s/p RIGHT decorticationShould this be performed at the bedside?->YesFINAL REPORT RAD, CHEST, 1 VIEW, NON DEPT INDICATION: s/p RIGHT decortication COMPARISON: Prior day's exam FINDINGS: Portable frontal view of the chest. IMPRESSION: Support Lines: Tracheostomy cannula tip is 3 cm superior to the latasha Lungs and pleura: Bilateral airspace disease and small bilateral effusions are unchanged No pneumothorax.Heart and mediastinum: Stable con tours.Additional findings: None. Signed: Stanford Miller Verified Date/ Time: 05/16/2020 07:45:24 Reading Location: [facility] Radiology Reading [facility] C METABOLIC [id number] 06:24:00* Test Item Value Reference Range Interpretation Comments SODIUM (BEAKER) (test code = 381) 138 meq/L 136-145 POTASSIUM (BEAKER) (test code = 379) 4.0 meq/L 3.5-5.1 CHLORIDE (BEAKER) (test code = 382) 99 meq/L 98-107 CO2 (BEAKER) (test code = 355) 35 meq/L 22-29 H BLOOD UREA NITROGEN (BEAKER) (test code = 354) 20 mg/dL 7-21 CREATININE (BEAKER) (test code = 358) 0.97 mg/dL 0.57-1.25 GLUCOSE RANDOM (BEAKER) (test code = 652) 119 mg/dL 70-105 H CALCIUM (BEAKER) (test code = 697) 7.9 mg/dL 8.4-10.2 L EGFR (BEAKER) (test code = 1092) 88 mL/min/1.73 sq m ESTIMATED GFR IS NOT ACCURATE CREATININE CLEARANCE IN PREDICTING GLOMERULAR FILTRATION RATE. ESTIMATED GFR IS NOT APPLICABLE FOR DIALYSIS PATIENTS. Pneumatic Tube Operator ID - LMCBC W/PLT COUNT & AUTO [id number] 05:36:00* Test Item Value Reference Range Interpretation Comments WHITE BLOOD CELL COUNT (BEAKER) (test code = 775) 4.7 K/ L 3.5- 10.5 RED BLOOD CELL COUNT (BEAKER) (test code = 761) 2.56 M/ L 4.63-6 .08 L HEMOGLOBIN (BEAKER) (test code = 410) 7.3 GM/DL 13.7-17.5 L HEMATOCRIT (BEAKER) (test code = 411) 23.0 % 40.1-51.0 L MEAN CORPUSCULAR VOLUME (BEAKER) (test code = 753) 89.8 fL 79. 0-92.2 MEAN CORPUSCULAR HEMOGLOBIN (BEAKER) (test code = 751) 28.5 pg 25.7-32.2 MEAN CORPUSCULAR HEMOGLOBIN CONC (BEAKER) (test code = 752) 31.7 GM/DL 32.3-36.5 L RED CELL DISTRIBUTION WIDTH (BEAKER) (test code = 412) 14.8 % 11.6-14.4 H PLATELET COUNT (BEAKER) (test code = 756) 199 K/CU MM 150-450 MEAN PLATELET VOLUME (BEAKER) (test code = 754) 10.1 fL 9.4-12 .4 NUCLEATED RED BLOOD CELLS (BEAKER) (test code = 413) 0 /100 WBC 0 -0 NEUTROPHILS RELATIVE PERCENT (BEAKER) (test code = 429) 69 % LYMPHOCYTES RELATIVE PERCENT (BEAKER) (test code = 430) 20 % MONOCYTES RELATIVE PERCENT (BEAKER) (test code = 431) 9 % EOSINOPHILS RELATIVE PERCENT (BEAKER) (test code = 432) 1 % BASOPHILS RELATIVE PERCENT (BEAKER) (test code = 437) 0 % NEUTROPHILS ABSOLUTE COUNT (BEAKER) (test code = 670) 3.25 K/ L 1.78-5.38 LYMPHOCYTES ABSOLUTE COUNT (BEAKER) (test code = 414) 0.96 K/ L 1.32-3.57 L MONOCYTES ABSOLUTE COUNT (BEAKER) (test code = 415) 0.42 K/ L 0. 30-0.82 EOSINOPHILS ABSOLUTE COUNT (BEAKER) (test code = 416) 0.05 K/ L 0.04-0.54 BASOPHILS ABSOLUTE COUNT (BEAKER) (test code = 417) 0.01 K/ L 0. 01-0.08 IMMATURE GRANULOCYTES-RELATIVE PERCENT (BEAKER) (test code = 2801) 0 % 0-1 POCT-GLUCOSE [id number] 22:04:00* Test Item Value Reference Range Interpretation Comments POC-GLUCOSE METER (BEAKER) (test code = 1538) 131 mg/dL 70-110 H : TESTED AT [facility] [address], [address]: Pneumatic Tube Operator/Movie Actor ID = [id number] for LAUREN LEHMAN POCT-GLUCOSE [id number] 18:34:00* Test Item Value Reference Range Interpretation Comments POC-GLUCOSE METER (BEAKER) (test code = 1538) 115 mg/dL 70-110 H : TESTED AT [facility] [address], [address]: Pneumatic Tube Operator/Movie Actor ID = [id number] for DAWSON KAUFFMAN RAD, CHEST, 1 VIEW, NON [id number] 17:27:00Reason for exam:->SOBShould this be performed at the bedside?->YesFINAL REPORT RAD, CHEST, 1 VIEW, NON DEPT INDICATION: SOB COMPARISON: 15 hours prior FINDINGS: Portable frontal view of the chest. IMPRESSION: Support Lines: Stable. Lungs and pleura: Improving aeration in the left hemithorax compared to the prior examination. Airspace disease and pleural effusion on the right are grossly stable. No pneumothorax. Redemonstration of a small volume of embolic material overlying the right hemithorax.Heart and mediastinum: Stable contours. Additional findings: None. Signed: JR Escamilla Robert MDReport Verified Date/Time: 05/15/2020 17:27:16 Reading Location: [address] Neuro Reading Room W/PLT COUNT & AUTO [id number] 16:16:00* Test Item Value Reference Range Interpretation Comments WHITE BLOOD CELL COUNT (BEAKER) (test code = 775) 5.1 K/ L 3.5- 10.5 RED BLOOD CELL COUNT (BEAKER) (test code = 761) 2.62 M/ L 4.63-6 .08 L HEMOGLOBIN (BEAKER) (test code = 410) 7.4 GM/DL 13.7-17.5 L HEMATOCRIT (BEAKER) (test code = 411) 23.6 % 40.1-51.0 L MEAN CORPUSCULAR VOLUME (BEAKER) (test code = 753) 90.1 fL 79. 0-92.2 MEAN CORPUSCULAR HEMOGLOBIN (BEAKER) (test code = 751) 28.2 pg 25.7-32.2 MEAN CORPUSCULAR HEMOGLOBIN CONC (BEAKER) (test code = 752) 31.4 GM/DL 32.3-36.5 L RED CELL DISTRIBUTION WIDTH (BEAKER) (test code = 412) 15.0 % 11.6-14.4 H PLATELET COUNT (BEAKER) (test code = 756) 212 K/CU MM 150-450 MEAN PLATELET VOLUME (BEAKER) (test code = 754) 9.7 fL 9.4-12 .4 NUCLEATED RED BLOOD CELLS (BEAKER) (test code = 413) 0 /100 WBC 0 -0 NEUTROPHILS RELATIVE PERCENT (BEAKER) (test code = 429) 71 % LYMPHOCYTES RELATIVE PERCENT (BEAKER) (test code = 430) 19 % MONOCYTES RELATIVE PERCENT (BEAKER) (test code = 431) 9 % EOSINOPHILS RELATIVE PERCENT (BEAKER) (test code = 432) 1 % BASOPHILS RELATIVE PERCENT (BEAKER) (test code = 437) 0 % NEUTROPHILS ABSOLUTE COUNT (BEAKER) (test code = 670) 3.62 K/ L 1.78-5.38 LYMPHOCYTES ABSOLUTE COUNT (BEAKER) (test code = 414) 0.94 K/ L 1.32-3.57 L MONOCYTES ABSOLUTE COUNT (BEAKER) (test code = 415) 0.44 K/ L 0. 30-0.82 EOSINOPHILS ABSOLUTE COUNT (BEAKER) (test code = 416) 0.06 K/ L 0.04-0.54 BASOPHILS ABSOLUTE COUNT (BEAKER) (test code = 417) 0.01 K/ L 0. 01-0.08 IMMATURE GRANULOCYTES-RELATIVE PERCENT (BEAKER) (test code = 2801) 0 % 0-1 POCT-GLUCOSE [id number] 12:28:00* Test Item Value Reference Range Interpretation Comments POC-GLUCOSE METER (BEAKER) (test code = 1538) 79 mg/dL 70-110 : TESTED AT [address], [address]: Pneumatic Tube Operator/Movie Actor ID = [id number] for DAWSON KAUFFMAN Fungus culture, blood (Isolator)2020-05-15 11:16:00* Test Item Value Reference Range Interpretation Comments Result (test code = 6463-4) No fungus isolated [facility]2020-[facility]-15 11:16:00 * Test Item Value Reference Range Interpretation Comments CULTURE (BEAKER) (test code = 1095) No fungus isolated [id number] 05:27:00* Test Item Value Reference Range Interpretation Comments PHOSPHORUS (BEAKER) (test code = 604) 2.9 mg/dL 2.3-4.7 Pneumatic Tube Operator ID - ELAINE [id number] 05:27:00* Test Item Value Reference Range Interpretation Comments MAGNESIUM (BEAKER) (test code = 627) 1.9 mg/dL 1.6-2.6 Pneumatic Tube Operator ID - ELAINE LBASIC METABOLIC [id number] 05:27:00* Test Item Value Reference Range Interpretation Comments SODIUM (BEAKER) (test code = 381) 141 meq/L 136-145 POTASSIUM (BEAKER) (test code = 379) 4.1 meq/L 3.5-5.1 CHLORIDE (BEAKER) (test code = 382) 102 meq/L 98-107 CO2 (BEAKER) (test code = 355) 36 meq/L 22-29 H BLOOD UREA NITROGEN (BEAKER) (test code = 354) 21 mg/dL 7-21 CREATININE (BEAKER) (test code = 358) 0.97 mg/dL 0.57-1.25 GLUCOSE RANDOM (BEAKER) (test code = 652) 99 mg/dL 70-105 CALCIUM (BEAKER) (test code = 697) 7.9 mg/dL 8.4-10.2 L EGFR (BEAKER) (test code = 1092) 88 mL/min/1.73 sq m ESTIMATED GFR IS NOT ACCURATE CREATININE CLEARANCE IN PREDICTING GLOMERULAR FILTRATION RATE. ESTIMATED GFR IS NOT APPLICABLE FOR DIALYSIS PATIENTS. Pneumatic Tube Operator ID - CANDIEFOX LCBC W/PLT COUNT & AUTO [id number] 04:56:00* Test Item Value Reference Range Interpretation Comments WHITE BLOOD CELL COUNT (BEAKER) (test code = 775) 4.6 K/ L 3.5- 10.5 RED BLOOD CELL COUNT (BEAKER) (test code = 761) 2.56 M/ L 4.63-6 .08 L HEMOGLOBIN (BEAKER) (test code = 410) 7.1 GM/DL 13.7-17.5 L HEMATOCRIT (BEAKER) (test code = 411) 23.2 % 40.1-51.0 L MEAN CORPUSCULAR VOLUME (BEAKER) (test code = 753) 90.6 fL 79. 0-92.2 MEAN CORPUSCULAR HEMOGLOBIN (BEAKER) (test code = 751) 27.7 pg 25.7-32.2 MEAN CORPUSCULAR HEMOGLOBIN CONC (BEAKER) (test code = 752) 30.6 GM/DL 32.3-36.5 L RED CELL DISTRIBUTION WIDTH (BEAKER) (test code = 412) 14.8 % 11.6-14.4 H PLATELET COUNT (BEAKER) (test code = 756) 198 K/CU MM 150-450 MEAN PLATELET VOLUME (BEAKER) (test code = 754) 10.0 fL 9.4-12 .4 NUCLEATED RED BLOOD CELLS (BEAKER) (test code = 413) 0 /100 WBC 0 -0 NEUTROPHILS RELATIVE PERCENT (BEAKER) (test code = 429) 70 % LYMPHOCYTES RELATIVE PERCENT (BEAKER) (test code = 430) 19 % MONOCYTES RELATIVE PERCENT (BEAKER) (test code = 431) 9 % EOSINOPHILS RELATIVE PERCENT (BEAKER) (test code = 432) 2 % BASOPHILS RELATIVE PERCENT (BEAKER) (test code = 437) 0 % NEUTROPHILS ABSOLUTE COUNT (BEAKER) (test code = 670) 3.20 K/ L 1.78-5.38 LYMPHOCYTES ABSOLUTE COUNT (BEAKER) (test code = 414) 0.86 K/ L 1.32-3.57 L MONOCYTES ABSOLUTE COUNT (BEAKER) (test code = 415) 0.40 K/ L 0. 30-0.82 EOSINOPHILS ABSOLUTE COUNT (BEAKER) (test code = 416) 0.07 K/ L 0.04-0.54 BASOPHILS ABSOLUTE COUNT (BEAKER) (test code = 417) 0.00 K/ L 0. 01-0.08 L IMMATURE GRANULOCYTES-RELATIVE PERCENT (BEAKER) (test code = 2801) 0 % 0-1 RAD, CHEST, 1 VIEW, NON [id number] 04:21:00Reason for exam:->s/p RIGHT decorticationShould this be performed at the bedside?->YesFINAL REPORT Chest one view. Clinical history: s/p RIGHT decortication Comparison: Chest radiograph 05/14/2020. Technique: A single frontal view of the chest was obtained. Findings:There is a tracheostomy tube in place.The cardiomediastinal contours are stable. There are diffuse airspace opacities, increased in the interval. There is a small loculated right pleural effusion. There is no pneumothorax. Signed: Guadalupe Webbeport Verified Date/Time: 05/15/2020 04:21:10 -GLUCOSE [id number] 00:26:00* Test Item Value Reference Range Interpretation Comments POC-GLUCOSE METER (BEAKER) (test code = 1538) 110 mg/dL 70-110 : TESTED AT [address], [address]: Pneumatic Tube Operator/Movie Actor ID = [id number] for Ananya Albarran POCT-GLUCOSE [id number] 21:58:00* Test Item Value Reference Range Interpretation Comments POC-GLUCOSE METER (BEAKER) (test code = 1538) 118 mg/dL 70-110 H : TESTED AT [address], [address]: Pneumatic Tube Operator/Movie Actor ID = [id number] for Sam Dowling POCT-GLUCOSE [id number] 18:24:00* Test Item Value Reference Range Interpretation Comments POC-GLUCOSE METER (BEAKER) (test code = 1538) 130 mg/dL 70-110 H : TESTED AT [address], [address]: Pneumatic Tube Operator/Movie Actor ID = [id number] for JUAN C LORA POCT-GLUCOSE [id number] 12:47:00* Test Item Value Reference Range Interpretation Comments POC-GLUCOSE METER (BEAKER) (test code = 1538) 148 mg/dL 70-110 H : TESTED AT [address], [address]: Pneumatic Tube Operator/Movie Actor ID = [id number] for JUAN C LORA CBC W/PLT COUNT & AUTO [id number] 08:35:00* Test Item Value Reference Range Interpretation Comments WHITE BLOOD CELL COUNT (BEAKER) (test code = 775) 4.9 K/ L 3.5- 10.5 RED BLOOD CELL COUNT (BEAKER) (test code = 761) 2.67 M/ L 4.63-6 .08 L HEMOGLOBIN (BEAKER) (test code = 410) 7.5 GM/DL 13.7-17.5 L HEMATOCRIT (BEAKER) (test code = 411) 24.4 % 40.1-51.0 L MEAN CORPUSCULAR VOLUME (BEAKER) (test code = 753) 91.4 fL 79. 0-92.2 MEAN CORPUSCULAR HEMOGLOBIN (BEAKER) (test code = 751) 28.1 pg 25.7-32.2 MEAN CORPUSCULAR HEMOGLOBIN CONC (BEAKER) (test code = 752) 30.7 GM/DL 32.3-36.5 L RED CELL DISTRIBUTION WIDTH (BEAKER) (test code = 412) 15.5 % 11.6-14.4 H PLATELET COUNT (BEAKER) (test code = 756) 219 K/CU MM 150-450 MEAN PLATELET VOLUME (BEAKER) (test code = 754) 10.4 fL 9.4-12 .4 NUCLEATED RED BLOOD CELLS (BEAKER) (test code = 413) 0 /100 WBC 0 -0 NEUTROPHILS RELATIVE PERCENT (BEAKER) (test code = 429) 73 % LYMPHOCYTES RELATIVE PERCENT (BEAKER) (test code = 430) 17 % MONOCYTES RELATIVE PERCENT (BEAKER) (test code = 431) 8 % EOSINOPHILS RELATIVE PERCENT (BEAKER) (test code = 432) 1 % BASOPHILS RELATIVE PERCENT (BEAKER) (test code = 437) 0 % NEUTROPHILS ABSOLUTE COUNT (BEAKER) (test code = 670) 3.57 K/ L 1.78-5.38 LYMPHOCYTES ABSOLUTE COUNT (BEAKER) (test code = 414) 0.85 K/ L 1.32-3.57 L MONOCYTES ABSOLUTE COUNT (BEAKER) (test code = 415) 0.41 K/ L 0. 30-0.82 EOSINOPHILS ABSOLUTE COUNT (BEAKER) (test code = 416) 0.04 K/ L 0.04-0.54 BASOPHILS ABSOLUTE COUNT (BEAKER) (test code = 417) 0.00 K/ L 0. 01-0.08 L IMMATURE GRANULOCYTES-RELATIVE PERCENT (BEAKER) (test code = 2801) 0 % 0-1 BASIC METABOLIC [id number] 05:43:00* Test Item Value Reference Range Interpretation Comments SODIUM (BEAKER) (test code = 381) 143 meq/L 136-145 POTASSIUM (BEAKER) (test code = 379) 4.2 meq/L 3.5-5.1 CHLORIDE (BEAKER) (test code = 382) 104 meq/L 98-107 CO2 (BEAKER) (test code = 355) 33 meq/L 22-29 H BLOOD UREA NITROGEN (BEAKER) (test code = 354) 21 mg/dL 7-21 CREATININE (BEAKER) (test code = 358) 1.03 mg/dL 0.57-1.25 GLUCOSE RANDOM (BEAKER) (test code = 652) 126 mg/dL 70-105 H CALCIUM (BEAKER) (test code = 697) 7.9 mg/dL 8.4-10.2 L EGFR (BEAKER) (test code = 1092) 82 mL/min/1.73 sq m ESTIMATED GFR IS NOT ACCURATE CREATININE CLEARANCE IN PREDICTING GLOMERULAR FILTRATION RATE. ESTIMATED GFR IS NOT APPLICABLE FOR DIALYSIS PATIENTS. Pneumatic Tube Operator ID - PIAYA LRAD, CHEST, 1 VIEW, NON [id number] 05:27:00Reason for exam:->chest tube in placeFINAL REPORT Chest one view. Clinical history: chest tube in place Comparison: Chest radiograph 05/13/2020. Technique: A single frontal view of the chest was obtained. Findings:There is a right chest tube unchanged in position. There is a tracheostomy tube in place.The cardiomediastinal contours are stable. There are persistent diffuse bilateral airspace opacities. There is a small loculated right pleural effusion. There is no pneumothorax. Signed: Guadalupe Webb Verified Date/Time: 05/14/2020 05:27:19 -GLUCOSE [id number] 00:29:00* Test Item Value Reference Range Interpretation Comments POC-GLUCOSE METER (BEAKER) (test code = 1538) 124 mg/dL 70-110 H : TESTED AT [facility] [address], [address]: Pneumatic Tube Operator/Movie Actor ID = [id number] for PRADIP GALEAS POCT-GLUCOSE [id number] 17:29:00* Test Item Value Reference Range Interpretation Comments POC-GLUCOSE METER (BEAKER) (test code = 1538) 126 mg/dL 70-110 H : TESTED AT [facility] [address], [address]: Pneumatic Tube Operator/Movie Actor ID = [id number] for MARTY PONCE POCT-GLUCOSE [id number] 11:36:00* Test Item Value Reference Range Interpretation Comments POC-GLUCOSE METER (BEAKER) (test code = 1538) 146 mg/dL 70-110 H : TESTED AT [facility] [address], [address]: Pneumatic Tube Operator/Movie Actor ID = [id number] for REYNALDO BERLIN Hemoglobin and [id number] 11:32:00* Test Item Value Reference Range Interpretation Comments Hemoglobin (test code = 786-4) 7.5 13.7- 17.5 GM/DL L Hematocrit (test code = 4544-3) 24.3 % 40.1-51 L ROSALIO (test code = ROSALIO) Pneumatic Tube Operator ID - [id number] Lab Interpretation (test code = 71022-8) Abnormal [facility] [id number] 11:32:00* Test Item Value Reference Range Interpretation Comments HEMOGLOBIN (BEAKER) (test code = 410) 7.5 GM/DL 13.7-17.5 L HEMATOCRIT (BEAKER) (test code = 411) 24.3 % 40.1-51.0 L Pneumatic Tube Operator ID - [id number], CHEST, 1 VIEW, NON [id number] 09:41:00Reason for exam:->Evaluate for pulmonary edemaShould this be performed at the bedside?->Yes FINAL REPORT History: Pulmonary edema Comparison: 020 Findings: Bilateral pulmonary opacities, right greater than left, are sugges tive of pulmonary edema or pneumonitis. Right pleural effusion is unchanged in a ppearance. These pulmonary and right pleural opacities are without appreciable c hange since the prior study. No pneumothorax. Heart shadow normal in size. Trach eostomy tube tip is well above the latasha. Signed: Sammie Ricci MDReport Verifie d Date/Time: 05/13/2020 09:41:49 Reading Location: [address] ading Room C METABOLIC [id number] 04:24:00* Test Item Value Reference Range Interpretation Comments SODIUM (BEAKER) (test code = 381) 142 meq/L 136-145 POTASSIUM (BEAKER) (test code = 379) 4.1 meq/L 3.5-5.1 CHLORIDE (BEAKER) (test code = 382) 106 meq/L 98-107 CO2 (BEAKER) (test code = 355) 32 meq/L 22-29 H BLOOD UREA NITROGEN (BEAKER) (test code = 354) 19 mg/dL 7-21 CREATININE (BEAKER) (test code = 358) 0.97 mg/dL 0.57-1.25 GLUCOSE RANDOM (BEAKER) (test code = 652) 101 mg/dL 70-105 CALCIUM (BEAKER) (test code = 697) 7.8 mg/dL 8.4-10.2 L EGFR (BEAKER) (test code = 1092) 88 mL/min/1.73 sq m ESTIMATED GFR IS NOT ACCURATE CREATININE CLEARANCE IN PREDICTING GLOMERULAR FILTRATION RATE. ESTIMATED GFR IS NOT APPLICABLE FOR DIALYSIS PATIENTS. Pneumatic Tube Operator ID - LYNN [id number] 04:11:00* Test Item Value Reference Range Interpretation Comments PHOSPHORUS (BEAKER) (test code = 604) 3.1 mg/dL 2.3-4.7 Pneumatic Tube Operator ID - LYNN [id number] 04:11:00* Test Item Value Reference Range Interpretation Comments MAGNESIUM (BEAKER) (test code = 627) 1.9 mg/dL 1.6-2.6 Pneumatic Tube Operator ID - LYNN MCBC W/PLT COUNT & AUTO [id number] 03:55:00* Test Item Value Reference Range Interpretation Comments WHITE BLOOD CELL COUNT (BEAKER) (test code = 775) 5.5 K/ L 3.5- 10.5 RED BLOOD CELL COUNT (BEAKER) (test code = 761) 2.30 M/ L 4.63-6 .08 L HEMOGLOBIN (BEAKER) (test code = 410) 6.4 GM/DL 13.7-17.5 L HEMATOCRIT (BEAKER) (test code = 411) 21.0 % 40.1-51.0 L MEAN CORPUSCULAR VOLUME (BEAKER) (test code = 753) 91.3 fL 79. 0-92.2 MEAN CORPUSCULAR HEMOGLOBIN (BEAKER) (test code = 751) 27.8 pg 25.7-32.2 MEAN CORPUSCULAR HEMOGLOBIN CONC (BEAKER) (test code = 752) 30.5 GM/DL 32.3-36.5 L RED CELL DISTRIBUTION WIDTH (BEAKER) (test code = 412) 16.2 % 11.6-14.4 H PLATELET COUNT (BEAKER) (test code = 756) 208 K/CU MM 150-450 MEAN PLATELET VOLUME (BEAKER) (test code = 754) 10.4 fL 9.4-12 .4 NUCLEATED RED BLOOD CELLS (BEAKER) (test code = 413) 0 /100 WBC 0 -0 NEUTROPHILS RELATIVE PERCENT (BEAKER) (test code = 429) 71 % LYMPHOCYTES RELATIVE PERCENT (BEAKER) (test code = 430) 20 % MONOCYTES RELATIVE PERCENT (BEAKER) (test code = 431) 8 % EOSINOPHILS RELATIVE PERCENT (BEAKER) (test code = 432) 1 % BASOPHILS RELATIVE PERCENT (BEAKER) (test code = 437) 0 % NEUTROPHILS ABSOLUTE COUNT (BEAKER) (test code = 670) 3.91 K/ L 1.78-5.38 LYMPHOCYTES ABSOLUTE COUNT (BEAKER) (test code = 414) 1.11 K/ L 1.32-3.57 L MONOCYTES ABSOLUTE COUNT (BEAKER) (test code = 415) 0.44 K/ L 0. 30-0.82 EOSINOPHILS ABSOLUTE COUNT (BEAKER) (test code = 416) 0.06 K/ L 0.04-0.54 BASOPHILS ABSOLUTE COUNT (BEAKER) (test code = 417) 0.00 K/ L 0. 01-0.08 L IMMATURE GRANULOCYTES-RELATIVE PERCENT (BEAKER) (test code = 2801) 0 % 0-1 POCT-GLUCOSE [id number] 03:53:00* Test Item Value Reference Range Interpretation Comments POC-GLUCOSE METER (BEAKER) (test code = 1538) 92 mg/dL 70-110 : TESTED AT [facility] [address], [address]: Pneumatic Tube Operator/Movie Actor ID = [id number] for PRADIP GALEAS POCT-GLUCOSE [id number] 00:42:00* Test Item Value Reference Range Interpretation Comments POC-GLUCOSE METER (BEAKER) (test code = 1538) 70 mg/dL 70-110 : TESTED AT [facility] [address], [address]: Pneumatic Tube Operator/Movie Actor ID = [id number] for PRADIP GALEAS POCT-GLUCOSE [id number] 20:28:00* Test Item Value Reference Range Interpretation Comments POC-GLUCOSE METER (BEAKER) (test code = 1538) 91 mg/dL 70-110 : TESTED AT [address], [address]: Pneumatic Tube Operator/Movie Actor ID = [id number] for PRADIP GALEAS ANG, CAVAL FILTER [id number] 17:30:00Reason for exam:->Embolization of right chest wall bleed and IVC filter placementFINAL REPORT PROCEDURE: Inferior vena cava (IVC) filter insertion Procedural PersonnelAttending physician(s): Lalit Nascimento physician(s): Dr Jarrett physician(s): NoneAdvanced practice provider(s): None Pre- procedure diagnosis: SamePost-procedure diagnosis: SameIndication: Chest wall hemorrhage, DVT, contraindication to anti-coagulationAdditional clinical histo ry: None Complications: No immediate complications. IMPRESSION: Technically succ essful insertion of inferior vena cava filter in the infrarenal IVC. Plan: Retri eval intent (MIPS): The filter is retrievable and patient will be followed up fo r potential removal. PROCEDURE SUMMARY:- IVC filter insertion under fluoroscop ic guidance PROCEDURE DETAILS: Pre-procedureInformed consent for the procedure i ncluding risks, benefits and alternatives was obtained and time-out was performe d prior to the procedure.Preparation (MIPS): The site was prepared and draped us ing all elements of maximal sterile barrier technique including sterile gloves, sterile gown, cap, mask, large sterile sheet, sterile ultrasound probe cover, cottrell nd hygiene, and cutaneous antisepsis with 2% chlorhexidineMedical reason for sit e preparation exception (MIPS): Not applicable Anesthesia/sedationLevel of anest hesia/sedation: Moderate sedation (conscious sedation)Anesthesia/sedation admini stered by: Independent trained observer under attending supervision with continu ous monitoring of the patient\\X2019\\s level of consciousness and physiologic sta tusDuration of anesthesia/sedation:15 minutes. AccessLocal anesthesia was admini stered. The vessel was sonographically evaluated and judged appropriate for acce ss. Real time ultrasound was used to visualize needle entry into the vessel and a permanent image . Acces vein side: Right Vein accessed: Femoral veinAccess vein ultrasound findings: PatentAccess technique: Seldinger VenographyVenography of the inferior vena cava (IVC) was performed to evaluate IVC size.IVC patency: PatentIVC size: Normal (up to 30 mm)IVC anatomy: ConventionalCatheter tip posit ion for venography: Inferior vena cavaAdditional findings: Patent IVC with harriet l diameter. Filter placementThe filter delivery sheath was advanced and the filt er was deployed under fluoroscopic guidance. Filter placed: Option EliteUnique D evice Identifier (ROXANA): Not available Post-placement imagingPost-placement imagi ng technique: Contrast venographyLocation of top of filter: Below the level of t he lowest renal veinFilter Tilt: 15 degrees or less from the IVC axisAdditional findings: None ClosureThe sheath was removed and hemostasis was achieved with ma nual compression. A sterile dressing was applied. Radiation DoseFluoroscopy time 1.9minsReference air kerma 64 mGy Additional DetailsAdditional description of p rocedure: NoneAdditional findings: NoneEquipment details: NoneSpecimens removed: NoneEstimated blood loss: Less than 10 mLStandardized report: [id number] [id number] AttestationILalit attest that I was present fo r the entire procedure. I reviewed the stored images and agree with the report a s written. Signed: Lalit Johnson MDReport Verified Date/Time: 05/12/2020 17:30: 31 Reading Location: [facility] Diagnostic Imaging Reading Room [place] [address] 1.310.12 IVC Filter [id number] 17:30:00Interface, External Ris In - 05/12/2020 5:32 PM CDTFINAL REPORT PROCEDURE: Inferior vena cava (IVC) filter insertion Procedural PersonnelAttending physician(s): Lalit Nascimento physician(s): Dr Jarrett physician(s): NoneAdvanced practice provider(s): None Pre-procedure diagnosis: SamePost-procedure diagnosis: SameIndication: Chest wall hemorrhage, DVT, contraindication to anti- coagulationAdditional clinical history: None Complications: No immediate complications. IMPRESSION: Technically successful insertion of inferior vena cava filter in the infrarenal IVC. Plan: Retrieval intent (MIPS): The filter is retrievable and patient will be followed up for potential removal. PROCEDURE SUMMARY:- IVC filter insertion under fluoroscopic guidance PROCEDURE DETAILS: Pre-procedureInformed consent for the procedure including risks, benefits and alternatives was obtained and time-out was performed prior to the procedure.Pre paration (MIPS): The site was prepared and draped using all elements of maximal sterile barrier technique including sterile gloves, sterile gown, cap, mask, lar ge sterile sheet, sterile ultrasound probe cover, hand hygiene, and cutaneous an tisepsis with 2% chlorhexidineMedical reason for site preparation exception (MIP S): Not applicable Anesthesia/sedationLevel of anesthesia/sedation: Moderate sed ation (conscious sedation)Anesthesia/sedation administered by: Independent train ed observer under attending supervision with continuous monitoring of the patien t\\X2019\\s level of consciousness and physiologic statusDuration of anesthesia/se dation:15 minutes. AccessLocal anesthesia was administered. The vessel was sonog raphically evaluated and judged appropriate for access. Real time ultrasound was used to visualize needle entry into the vessel and a permanent image . Acces vein side: Right Vein accessed: Femoral veinAccess vein ultrasound findings: Pa tentAccess technique: Seldinger VenographyVenography of the inferior vena cava ( IVC) was performed to evaluate IVC size.IVC patency: PatentIVC size: Normal (up to 30 mm)IVC anatomy: ConventionalCatheter tip position for venography: Inferior vena cavaAdditional findings: Patent IVC with normal diameter. Filter placement The filter delivery sheath was advanced and the filter was deployed under fluoro scopic guidance. Filter placed: Option EliteUnique Device Identifier (ROXANA): Not available Post-placement imagingPost-placement imaging technique: Contrast venog raphyLocation of top of filter: Below the level of the lowest renal veinFilter T ilt: 15 degrees or less from the IVC axisAdditional findings: None ClosureThe sh eath was removed and hemostasis was achieved with manual compression. A sterile dressing was applied. Radiation DoseFluoroscopy time 1.9minsReference air kerma 64 mGy Additional DetailsAdditional description of procedure: NoneAdditional fin dings: NoneEquipment details: NoneSpecimens removed: NoneEstimated blood loss: L ess than 10 mLStandardized report: [id number] Att estationLalit Hansen attest that I was present for the entire procedure. I re viewed the stored images and agree with the report as written. Signed: Lalit Johnson MDReport Verified Date/Time: 05/12/2020 17:30:31 [facility] 1.310.12 [facility], ARTERIAL EMBOLIZATION FOR [id number] 17:14:00Reason for exam:->Embolization of right chest wall bleed and IVC filter placementFINAL REPORT History: Right chest wall hemorrhage. PROCEDURE: [...] right common femoral artery and a 5 Zimbabwean sheath was placed. A 5 Zimbabwean Omni Flush catheter was placed over a wire into the abdominal aorta and used to cross ureteropelvic bifurcation. The catheter was removed over a [place] wire and a 5 [place]an Sauer 2.5 reverse curve catheter was placed over the wire and formed over the aortic bifurcation within the abdominal aorta. This catheter was then used to carefully select and perform multiple selective right intercostal artery arteriograms. With the catheter par ked in the origin of what appears to be the intercostal artery lying between the right sixth and seventh rib, coaxial technique was utilized to advance an STC c atheter over a microwire into this intercostal artery. Subselective intercostal arteriography was performed to confirm the position of the catheter. Transcathet er coil embolization of the intercostal artery was then achieved using two 3 mm x 8 cm Concerto detachable microcoils. At the conclusion of the embolization, re peat subselective intercostals arteriogram was performed. The catheters and acosta th were then removed and hemostasis achieved using a 5 Zimbabwean minx closure devic e. Overall, the patient tolerated the procedure well without immediate complicat ions and was discharged from the department in critical but stable condition. FI NDINGS: Right intercostal arteriography demonstrates a small pseudoaneurysm and acute contrast extravasation from the distal intercostal artery lying between th e six and seventh ribs posterolaterally. Subselective more distal right intercos rona arteriogram demonstrates a microcatheter expected position within this vesse l. Small pseudoaneurysms and acute contrast extravasation is again identified. F ollowing coil embolization, the pseudoaneurysm is no longer seen and there is no longer active contrast extravasation from the vessel. IMPRESSION: 1. Small pseu doaneurysm and active contrast extravasation from a distal right intercostal art ginna lying between the six and seventh ribs posterior laterally as described abov e. This vessel was successfully coil embolized with successful treatment of the pseudoaneurysm and cessation of the bleeding. Total fluoroscopy time: 20.1 min utes. Estimated total patient dose reported as (Ka,r): 921 mGy Signed: Lalit Johnson MDReport Verified Date/Time: 05/12/2020 17:14:34 [facility] - [facility] 1.310.12 Embolization [id number] 17:14:00Interface, External Ris In - 05/12/2020 5:16 PM CDTFINAL REPORT History: Right chest wall hemorrhage. PROCEDURE: [...] right common femoral artery and a 5 Zimbabwean sheath was placed. A 5 Zimbabwean Omni Flush catheter was placed over a wire into the abdominal aorta and used to cross ureteropelvic bifurcation. The catheter was removed over a Weibuson wire and a 5 Zimbabwean Sauer 2.5 reverse curve catheter was placed [...] catheters and sheath were then removed and hem ostasis achieved using a 5 Zimbabwean minx closure device. Overall, the patient tole rated the procedure well without immediate complications and was discharged from the department in critical but stable condition. FINDINGS: Right intercostal ar teriography demonstrates a small pseudoaneurysm and acute contrast extravasation from the distal intercostal artery lying between the six and seventh ribs poste rolaterally. Subselective more distal right intercostal arteriogram demonstrates a microcatheter expected position within this vessel. Small pseudoaneurysms and acute contrast extravasation is again identified. Following coil embolization, the pseudoaneurysm is no longer seen and there is no longer active contrast extr avasation from the vessel. IMPRESSION: 1. Small pseudoaneurysm and active contra st extravasation from a distal right intercostal artery lying between the six an d seventh ribs posterior laterally as described above. This vessel was successfu lly coil embolized with successful treatment of the pseudoaneurysm and cessation of the bleeding. Total fluoroscopy time: 20.1 minutes. Estimated total patien t dose reported as (Ka,r): 921 mGy Signed: Lalit Johnson MDReport Verified Date/ Time: 05/12/2020 17:14:34 Reading Location: [facility] Diagnostic Imaging Reading Ro om - [facility] F1 1.310.12 Electronically signed by: LALIT JOHNSON M.D. on 04/24 05:14 PM [facility] [id number] 09:57:00* Test Item Value Reference Range Interpretation Comments POC-GLUCOSE METER (BEAKER) (test code = 1538) 110 mg/dL 70-110 : TESTED AT [facility] [address], [address]: Pneumatic Tube Operator/Movie Actor ID = [id number] for EL ODONNELL POCT-GLUCOSE [id number] 07:01:00* Test Item Value Reference Range Interpretation Comments POC-GLUCOSE METER (BEAKER) (test code = 1538) 106 mg/dL 70-110 : TESTED AT [place] [id number], [address]: Pneumatic Tube Operator/Movie Actor ID = [id number] for Priya Rodriguez CBC (HEMOGRAM ONLY)2020-05-12 06:59:00* Test Item Value Reference Range Interpretation Comments WHITE BLOOD CELL COUNT (BEAKER) (test code = 775) 7.9 K/ L 3.5- 10.5 RED BLOOD CELL COUNT (BEAKER) (test code = 761) 2.63 M/ L 4.63-6 .08 L HEMOGLOBIN (BEAKER) (test code = 410) 7.3 GM/DL 13.7-17.5 L HEMATOCRIT (BEAKER) (test code = 411) 23.6 % 40.1-51.0 L MEAN CORPUSCULAR VOLUME (BEAKER) (test code = 753) 89.7 fL 79. 0-92.2 MEAN CORPUSCULAR HEMOGLOBIN (BEAKER) (test code = 751) 27.8 pg 25.7-32.2 MEAN CORPUSCULAR HEMOGLOBIN CONC (BEAKER) (test code = 752) 30.9 GM/DL 32.3-36.5 L RED CELL DISTRIBUTION WIDTH (BEAKER) (test code = 412) 16.2 % 11.6-14.4 H PLATELET COUNT (BEAKER) (test code = 756) 224 K/CU MM 150-450 MEAN PLATELET VOLUME (BEAKER) (test code = 754) 10.3 fL 9.4-12 .4 NUCLEATED RED BLOOD CELLS (BEAKER) (test code = 413) 0 /100 WBC 0 -0 BASIC METABOLIC [id number] 04:45:00* Test Item Value Reference Range Interpretation Comments SODIUM (BEAKER) (test code = 381) 142 meq/L 136-145 POTASSIUM (BEAKER) (test code = 379) 4.4 meq/L 3.5-5.1 CHLORIDE (BEAKER) (test code = 382) 105 meq/L 98-107 CO2 (BEAKER) (test code = 355) 35 meq/L 22-29 H BLOOD UREA NITROGEN (BEAKER) (test code = 354) 20 mg/dL 7-21 CREATININE (BEAKER) (test code = 358) 0.85 mg/dL 0.57-1.25 GLUCOSE RANDOM (BEAKER) (test code = 652) 97 mg/dL 70-105 CALCIUM (BEAKER) (test code = 697) 7.7 mg/dL 8.4-10.2 L EGFR (BEAKER) (test code = 1092) 103 mL/min/1.73 sq m ESTIMATED GFR IS NOT ACCURATE CREATININE CLEARANCE IN PREDICTING GLOMERULAR FILTRATION RATE. ESTIMATED GFR IS NOT APPLICABLE FOR DIALYSIS PATIENTS. Pneumatic Tube Operator ID - LYNN SANDRO, CHEST, 1 VIEW, NON [id number] 04:45:00Reason for exam:->s/p RIGHT decorticationShould this be performed at the bedside?->YesFINAL REPORT Chest one view. Clinical history: s/p RIGHT decortication Comparison: Chest radiograph 05/11/2020, 7:47 PM. Technique: A sin gle frontal view of the chest was obtained. Findings:Support lines and tubes ar e in satisfactory positions.The cardiomediastinal contours are stable. There are persistent diffuse bilateral airspace opacities. There is a persistent loculate d right pleural effusion. There is no pneumothorax. Signed: Guadalupe Webb eport Verified Date/Time: 05/12/2020 04:45:05 D GAS, [id number] 03:48:00* Test Item Value Reference Range Interpretation Comments PH ARTERIAL (BEAKER) (test code = 383) 7.44 7.35-7.45 PCO2 ARTERIAL (BEAKER) (test code = 384) 53 mmHg 35-45 H PO2 ARTERIAL (BEAKER) (test code = 385) 120 mmHg 80-90 H O2 SATURATION ARTERIAL (BEAKER) (test code = 386) 98.4 % 96.0 -97.0 H HCO3 ARTERIAL (BEAKER) (test code = 388) 35 mmol/L 21-29 H BASE EXCESS ARTERIAL (BEAKER) (test code = 387) 9.9 mmol/L -2.0-3 .0 H PATIENT TEMPERATURE (BEAKER) (test code = 1818) 37.3 C FIO2 (BEAKER) (test code = 1819) 40.0 % POCT-GLUCOSE [id number] 01:01:00* Test Item Value Reference Range Interpretation Comments POC-GLUCOSE METER (BEAKER) (test code = 1538) 77 mg/dL 70-110 : TESTED AT [place] [id number] [facility], [address]: Pneumatic Tube Operator/Movie Actor ID = [id number] for Priya Rodriguez BLOOD GAS, [id number] 22:33:00* Test Item Value Reference Range Interpretation Comments PH ARTERIAL (BEAKER) (test code = 383) 7.46 7.35-7.45 H PCO2 ARTERIAL (BEAKER) (test code = 384) 52 mmHg 35-45 H PO2 ARTERIAL (BEAKER) (test code = 385) 112 mmHg 80-90 H O2 SATURATION ARTERIAL (BEAKER) (test code = 386) 98.3 % 96.0 -97.0 H HCO3 ARTERIAL (BEAKER) (test code = 388) 36 mmol/L 21-29 H BASE EXCESS ARTERIAL (BEAKER) (test code = 387) 10.9 mmol/L -2.0-3 .0 H PATIENT TEMPERATURE (BEAKER) (test code = 1818) 36.7 C FIO2 (BEAKER) (test code = 1819) 40.0 % RAD, CHEST, 1 VIEW, NON [id number] 20:15:00Reason for exam:->sp R chest wall hematoma evacuationShould this be performed at the bedside?->YesFINAL REPORT RAD, CHEST, 1 VIEW, NON DEPT INDICATION: sp R chest wall hematoma evacuation COMPARISON: 85 FINDINGS: Portable frontal view of the chest. IMPRESSION: Support Lines: Small drainage catheter overlies the right hemithorax. Tracheostomy tube is stable. Stable left PICC.Lungs and pleura: Interstitial changes are present bilaterally. Layering right effusion has sli ghtly improved. No pneumothorax.Heart and mediastinum: Stable contours. Addition al findings: None. Signed: JR Escamilla Robert MDReport Verified Date/Time: 05/11/2020 20:15:23 Reading Location: [facility] C013 Neuro Reading Room [facility] signed by: SHELLIE ESCAMILLA on 05/11/2020 08:15 PM BASIC METABOLIC [id number] 19:27:00* Test Item Value Reference Range Interpretation Comments SODIUM (BEAKER) (test code = 381) 141 meq/L 136-145 POTASSIUM (BEAKER) (test code = 379) 4.6 meq/L 3.5-5.1 CHLORIDE (BEAKER) (test code = 382) 106 meq/L 98-107 CO2 (BEAKER) (test code = 355) 33 meq/L 22-29 H BLOOD UREA NITROGEN (BEAKER) (test code = 354) 19 mg/dL 7-21 CREATININE (BEAKER) (test code = 358) 0.85 mg/dL 0.57-1.25 GLUCOSE RANDOM (BEAKER) (test code = 652) 61 mg/dL 70-105 L CALCIUM (BEAKER) (test code = 697) 7.9 mg/dL 8.4-10.2 L EGFR (BEAKER) (test code = 1092) 103 mL/min/1.73 sq m ESTIMATED GFR IS NOT ACCURATE CREATININE CLEARANCE IN PREDICTING GLOMERULAR FILTRATION RATE. ESTIMATED GFR IS NOT APPLICABLE FOR DIALYSIS PATIENTS. Pneumatic Tube Operator ID - [id number] 19:26:00* Test Item Value Reference Range Interpretation Comments PHOSPHORUS (BEAKER) (test code = 604) 3.8 mg/dL 2.3-4.7 Pneumatic Tube Operator ID - [id number] 19:26:00* Test Item Value Reference Range Interpretation Comments MAGNESIUM (BEAKER) (test code = 627) 1.8 mg/dL 1.6-2.6 Pneumatic Tube Operator ID - [id number] 18:45:00* Test Item Value Reference Range Interpretation Comments PARTIAL THROMBOPLASTIN TIME (BEAKER) (test code = 760) 37.6 seconds 22.5-36.0 H Prothrombin time/[id number] 18:44:00* Test Item Value Reference Range Interpretation Comments Protime (test code = 5902-2) 15.7 11.9- 14.2 seconds H INR (test code = 6301-6) 1.3 <=5.9 ROSALIO (test code = ROSALIO) Effective 04/21/2019: PT Refe rence Range ChangeNew: 11.9- 14.2 Previous: 11.7-14.7 RECOMMENDED COUMADIN/WARFARIN INR THERAPY RANGESSTANDARD DOSE: 2.0-3.0 Includes: PROPHYLAXIS for venous thrombosis, sys temic embolization; TREATMENT for venous thrombosis and/or pulmonary embolus.HIGH RISK: Target INR is 2.5-3.5 for patients wiht mechanical heart valves. Lab Interpretation (test code = 56612-6) Abnormal [facility]/[id number] 18:44:00* Test Item Value Reference Range Interpretation Comments PROTIME (BEAKER) (test code = 759) 15.7 seconds 11.9-14.2 H INR (BEAKER) (test code = 370) 1.3 <=5.9 Effective 04/21/2019: PT Reference Range ChangeNew: 11.9-14.2 Previous: 11.7-14. 7RECOMMENDED COUMADIN/WARFARIN INR THERAPY RANGESSTANDARD DOSE: 2.0-3.0 Include s: PROPHYLAXIS for venous thrombosis, systemic embolization; TREATMENT for venou s thrombosis and/or pulmonary embolus.HIGH RISK: Target INR is 2.5-3.5 for patie nts wiht mechanical heart valves.CBC (HEMOGRAM ONLY)2020-05-11 18:35:00* Test Item Value Reference Range Interpretation Comments WHITE BLOOD CELL COUNT (BEAKER) (test code = 775) 9.5 K/ L 3.5- 10.5 RED BLOOD CELL COUNT (BEAKER) (test code = 761) 2.73 M/ L 4.63-6 .08 L HEMOGLOBIN (BEAKER) (test code = 410) 7.6 GM/DL 13.7-17.5 L HEMATOCRIT (BEAKER) (test code = 411) 24.4 % 40.1-51.0 L MEAN CORPUSCULAR VOLUME (BEAKER) (test code = 753) 89.4 fL 79. 0-92.2 MEAN CORPUSCULAR HEMOGLOBIN (BEAKER) (test code = 751) 27.8 pg 25.7-32.2 MEAN CORPUSCULAR HEMOGLOBIN CONC (BEAKER) (test code = 752) 31.1 GM/DL 32.3-36.5 L RED CELL DISTRIBUTION WIDTH (BEAKER) (test code = 412) 15.9 % 11.6-14.4 H PLATELET COUNT (BEAKER) (test code = 756) 245 K/CU MM 150-450 MEAN PLATELET VOLUME (BEAKER) (test code = 754) 10.9 fL 9.4-12 .4 NUCLEATED RED BLOOD CELLS (BEAKER) (test code = 413) 0 /100 WBC 0 -0 PROTHROMBIN TIME/[id number] 15:38:00* Test Item Value Reference Range Interpretation Comments PROTIME (BEAKER) (test code = 759) 15.7 seconds 11.9-14.2 H INR (BEAKER) (test code = 370) 1.3 <=5.9 Effective 04/21/2019: PT Reference Range ChangeNew: 11.9-14.2 Previous: 11.7-14. 7RECOMMENDED COUMADIN/WARFARIN INR THERAPY RANGESSTANDARD DOSE: 2.0-3.0 Include s: PROPHYLAXIS for venous thrombosis, systemic embolization; TREATMENT for venou s thrombosis and/or pulmonary embolus.HIGH RISK: Target INR is 2.5-3.5 for patie nts wiht mechanical heart valves.[id number] 15:38:00* Test Item Value Reference Range Interpretation Comments PARTIAL THROMBOPLASTIN TIME (BEAKER) (test code = 760) 39.3 seconds 22.5-36.0 H CBC (HEMOGRAM ONLY)2020-05-11 15:29:00* Test Item Value Reference Range Interpretation Comments WHITE BLOOD CELL COUNT (BEAKER) (test code = 775) 8.2 K/ L 3.5- 10.5 RED BLOOD CELL COUNT (BEAKER) (test code = 761) 2.80 M/ L 4.63-6 .08 L HEMOGLOBIN (BEAKER) (test code = 410) 7.7 GM/DL 13.7-17.5 L HEMATOCRIT (BEAKER) (test code = 411) 25.1 % 40.1-51.0 L MEAN CORPUSCULAR VOLUME (BEAKER) (test code = 753) 89.6 fL 79. 0-92.2 MEAN CORPUSCULAR HEMOGLOBIN (BEAKER) (test code = 751) 27.5 pg 25.7-32.2 MEAN CORPUSCULAR HEMOGLOBIN CONC (BEAKER) (test code = 752) 30.7 GM/DL 32.3-36.5 L RED CELL DISTRIBUTION WIDTH (BEAKER) (test code = 412) 15.8 % 11.6-14.4 H PLATELET COUNT (BEAKER) (test code = 756) 238 K/CU MM 150-450 MEAN PLATELET VOLUME (BEAKER) (test code = 754) 10.6 fL 9.4-12 .4 NUCLEATED RED BLOOD CELLS (BEAKER) (test code = 413) 0 /100 WBC 0 -0 CTA [id number] 11:56:00Interface, External Ris In - 05/16/2020 6:29 PM CDTAddendum BeginsREPORT STATUS:A Addendum: May 16, 2020 at 1825 [...] both lower lobes likely represents atelectasis. Signed: Lalit Johnson MDReport Verified Date/Time: 05/16/2020 18:27:10 Reading Location: [facility] Radiology Reading RoomAddendum EndsFINAL REPORT CT angiography of the thoracic aorta, [...] to the contrast sheet scanned in the EPIC system for the amount and route of contrast given. This exam was performed according to our departmental dose-optimisation programme, which includes automated exposure control, adjustment of the mA and/or kV according to patient size and/or use of iterative reconstruction technique. Dose modulation, iterative reconstruction, and/or weight based adjustment of the mA/kV was utilized to red uce the radiation dose to as low as reasonably achievable. FINDINGS: VASCULAR: No significant pericardial effusion is seen. The central pulmonary artery is nor mal in calibre. The cardiac chambers demonstrate normal atrioventricular and shirley triculoarterial concordance, and systemic and pulmonary venous return. The left ventricle is normal in size. There also appears to be mild left atrial prominenc e present. No mitral annular calcification is seen. No aortic valvular calcifica tion is identified. In the available images, coronal artery origins are normal. However, there is scattered calcification identified in the LAD and RCA territor ies, with motion artefact present. A central venous catheter is identified, with tip identified in the distal SVC. The thoracic aorta is normal in course, conto ur, and calibre. No ectasia or aneurysmal dilation is identified. There is no evidence of acute aortic pathology, specifically, there is no dissection, intra mural hematoma, or contained rupture. The arch vessel branching pattern is harriet l and the visualised portion of the arch vessels are widely patent. NON-VASCUL AR: THYROID: Unchanged Multiple lymph nodes are seen, unchanged. TRACHEOSTOMY TU BE: Unchanged LUNGS: See prior report by Curriculum Advisory Teacher Radiologist for details. Bib fatou pleural effusions identified. Associated atelectatic changes/consolidation seen in the lung bases. Tiny pneumothorax is identified in the right lung, for e xample at image 148. Airspace opacity is identified especially in the right apex in the right middle lobe. Nonspecific groundglass opacity are also seen for exa mple in the left lung, and may represent cardiac congestion. UPPER ABDOMEN: Unch anged BONY STRUCTURES: Unchanged Large haematoma is identified in the right late ral chest wall, external to the rib cage, for example, from image 38 extending d own to image 152. No acute enhancement is noted by Hounsfield unit measurement. However, small patchy enhancement is identified in the right, image 110, also se en in the second dynamic at image 110 as well. This could potentially represent the location of bleeding. The exact vessel is uncertain, and could be, and one o f the intercostal. By visual estimation, no gross increase in size of the haemat milagro is noted when compared to prior examination a few hours ago. CONCLUSIONS: 1. A large haematoma is identified in the right lateral chest wall, external to t he rib cage. No dramatic interval change is seen when compared to recent examina tion a few hours ago, and no increased in Hounsfield unit is appreciated after c ontrast administration. At image 110, tiny blush of contrast is identified, in b oth arterial and delay images, in the right, and may represent a focus of bleedi ng. 2. Unremarkable thoracic aorta. 3. Please refer to the above regarding pul monary findings, with the description by the Curriculum Advisory Teacher Radiologist a few hours ago. 4. Other findings as described above. 5. An addendum will be dictated reg arding the non-vascular findings by the Curriculum Advisory Teacher Radiologist. Signed: Nelson Rodriguez MDReport Verified Date/Time: 05/11/2020 11:56:23 Reading Location: [place] [address] Reading [facility]2020-05-11 10:54:00* Test Item Value Reference Range Interpretation Comments SARS-COV2/RT-PCR (test code = 4533704) Not Detected Not Detected, N egative SARS-COV-2 PERFORMING LAB (test code = 1164914) [facility] Negative results do not preclude SARS-CoV-2 infection and should not be used as the sole basis for patient management decisions. Negative results must be combin ed with clinical observations, patient history, and epidemiological information. A false negative result may occur if a specimen is improperly collected, transp orted or handled.The limit of detection for this assay is 250 copies/mL.This ALAN S CoV-2 test is a rapid, real-time RT-PCR test intended for the qualitative dete ction of nucleic acid from SARS-CoV-2 in a nasopharyngeal swab specimen collecte d from individuals suspected of COVID-19 by their healthcare provider.This test has not been Food and Drug Administration (FDA) cleared or approved and has been authorized by FDA under an Emergency Use Authorization (EUA). This EUA will be effective until the declaration that circumstances exist justifying the authoriz ation of the emergency use of in vitro diagnostic tests for detection and/or bob gnosis of COVID-19 is terminated under Section 564(b)(2) of the Act or the EUA i s revoked under Section 564(g) of the Act.Fact Sheet for Healthcare Providers:ht tps://www.[employer]/Documents/Xpert%20Xpress%20SARS%20CoV-2/Fact%20Sheets/302 3802%70SMED-ISH-4%20HEALTHCARE%20PROVIDERS%20FACT%20SHEET.pdfFact Sheet for Heal thcare Patients:https://www.[employer]/Documents/Xpert%20Xpress%20SARS%20CoV-2/ Fact%20Sheets/3023801%36ABEZ-YYQ-8%20PATIENT%20FACT%20SHEET.pdfPerforming Labor atory:[facility] [place] [address] HEMOGLOBIN AND [id number] 08:36:00* Test Item Value Reference Range Interpretation Comments HEMOGLOBIN (BEAKER) (test code = 410) 7.6 GM/DL 13.7-17.5 L HEMATOCRIT (BEAKER) (test code = 411) 24.6 % 40.1-51.0 L Pneumatic Tube Operator ID - [id number] galactomannan [id number] 07:48:00* Test Item Value Reference Range Interpretation Comments Aspergillus Index Value (test code = 2645) <0.50 Aspergillus Antigen (test code = 05134-7) NOT DETECTED REFERENCE RANGE: <0.50, NOT DETECTED A negative result does not exclude invasiveaspergillosis. Follow-up testing may be indicatedfor high-risk patients. ROSALIO (test code = ROSALIO) Performing Lab *[facility] [address] [place] [address] Dave Hsu MD [facility] HospitalThromboelastograph (TEG)2020-05-11 06:56:00* Test Item Value Reference Range Interpretation Comments TEG Activated Clotting Time (test code = 48053-8) 7.9 4.0- 7.0 minutes H TEG Fibrinogen Activity (test code = 24321-5) 70.7 61.0- 73 .0 degrees TEG Platelet Aggregation (test code = 35340-2) 80.8 55.0- 6 5.0 MM H TEG Fibrinolysis (test code = 29553-3) 0.1 % 0-5 TEG-H Activated Clotting Time (test code = 1411) 7.6 4.0- 7.0 minutes H TEG-H Fibrinogen Activity (test code = 1412) 72.4 61.0- 73. 0 degrees TEG-H Platelet Aggregation (test code = 1413) 77.7 55.0- 65 .0 MM H TEG-H Fibrinolysis (test code = 1414) 0.9 % 0-5 Lab Interpretation (test code = 61643-8) Abnormal [facility])2020-05-11 06:56:00* Test Item Value Reference Range Interpretation Comments TEG ACTIVATED CLOTTING TIME (BEAKER) (test code = 1407) 7.9 minutes 4.0-7.0 H TEG FIBRINOGEN ACTIVITY (BEAKER) (test code = 1408) 70.7 degrees 61 .0-73.0 TEG PLT. AGGREGATION (BEAKER) (test code = 1409) 80.8 MM 55.0- 65.0 H TEG FIBRINOLYSIS (BEAKER) (test code = 1410) 0.1 % 0.0-5.0 [facility] ACTIVATED CLOTTING TIME (BEAKER) (test code = 1411) 7.6 minutes 4.0-7.0 H [facility] FIBRINOGEN ACTIVITY (BEAKER) (test code = 1412) 72.4 degrees 61 .0-73.0 T[facility] PLT. AGGREGATION (BEAKER) (test code = 1413) 77.7 MM 55.0- 65.0 H [facility] FIBRINOLYSIS (BEAKER) (test code = 1414) 0.9 % 0.0-5.0 CT, CHEST, WITH [id number] 06:56:00FINAL REPORT EXAM: CT of the chest, with [...] represent pneumonia and/or pulmonary edema. Small peripheral thick- walled right upper lobe cavity abutting the minor fissure, grossly unchanged. Tiny loculated right basilar pneumothorax.VESSELS: Within normal limits.HEART: Normal heart size. No pericardial effusion.ARIS AND MEDIASTINUM: Again noted are subcentimeter and enlarged mediastinal lymph nodes which may be infectious, inflammatory or neoplastic.VISUALIZED UPPER ABDOMEN: Small linear wedge-shaped hypodensity spleen which may represent an infarct. Splenomegaly.SOFT TISSUES: Diffuse soft tissue edema in the right chest wall. Hyperdense fluid collections in the right lateral and posterior chest abdalla compatible with hematomas. Incomp letely imaged right chest wall however the largest hematoma pocket measures 18.6 x 16.4 x 5.2 cm in greatest dimensions. Mild bilateral gynecomastia. Left PICC line with tip in the right atrium.BONES: Within normal limits. IMPRESSION: Large right chest wall hematoma.Small bilateral pleural effusions.Bilateral lower lob e consolidation which may represent atelectasis and/or pneumonia. Small patchy airspace opacities in the bilateral upper and right middle lobes, which may repr esent pneumonia and/or pulmonary edema. Tracheobronchial secretions; consider as piration.Stable small right upper lobe cavity.Tiny loculated right basilar pneum othorax.Left PICC line with tip in the right atrium. Signed: Guadalupe Webb MDRep ort Verified Date/Time: 05/11/2020 06:56:07 chest with IV [id number] 06:56:00Interface, External Ris In - 05/11/2020 6:59 AM CDTFINAL REPORT EXAM: CT of the chest, with [...] fissure, grossly unchanged. Tiny loculated right basilar pneumothorax.VESSELS: Within normal limits.HEART: Normal heart size. No pericardial effusion.ARIS AND MEDIASTINUM: Again noted are subcentimeter and enlarged mediastinal lymph nodes which may be infectious, inflammatory or neoplastic.VISUALIZED UPPER ABDOMEN: Small linear wedge-shaped hypodensity spleen which may represent an infarct. Splenomegaly.SOFT TISSUES: Diffuse soft tissue edema in the right chest wall. Hyperdense fluid collections in the right lateral and posterior chest abdalla compatible with hematomas. Incompletely imaged right chest wall however the largest hematoma pocket measures 18.6 x 16.4 x 5.2 cm in greatest dimensions. Mild bilateral gynecomastia. Left PICC line with tip in the right atrium.BONES: Within normal limits. IMPRESSION: Large right chest wall hematoma.Small bilateral pleural effusions.Bilateral lower lobe consolidation which may re present atelectasis and/or pneumonia. Small patchy airspace opacities in the bi lateral upper and right middle lobes, which may represent pneumonia and/or pulmo nary edema. Tracheobronchial secretions; consider aspiration.Stable small right upper lobe cavity.Tiny loculated right basilar pneumothorax.Left PICC line with tip in the right atrium. Signed: Guadalupe Webb [facility] Verified Date/Time: 06:56:07 Electronically signed by: GUADALUPE WEBB MD on 05/11 06:56 AM [id number] 05:28:00* Test Item Value Reference Range Interpretation Comments PROTIME (BEAKER) (test code = 759) 15.9 seconds 11.9-14.2 H INR (BEAKER) (test code = 370) 1.3 <=5.9 PARTIAL THROMBOPLASTIN TIME (BEAKER) (test code = 760) 48.3 seconds 22.5-36.0 H Effective 04/21/2019: PT Reference Range ChangeNew: 11.9-14.2 Previous: 11.7-14. 7RECOMMENDED COUMADIN/WARFARIN INR THERAPY RANGESSTANDARD DOSE: 2.0-3.0 Include s: PROPHYLAXIS for venous thrombosis, systemic embolization; TREATMENT for venou s thrombosis and/or pulmonary embolus.HIGH RISK: Target INR is 2.5-3.5 for patie nts wiht mechanical heart valves.[id number] 05:27:00* Test Item Value Reference Range Interpretation Comments FIBRINOGEN LEVEL (BEAKER) (test code = 658) 452 mg/dl 225-434 H BASIC METABOLIC [id number] 04:44:00* Test Item Value Reference Range Interpretation Comments SODIUM (BEAKER) (test code = 381) 144 meq/L 136-145 POTASSIUM (BEAKER) (test code = 379) 4.3 meq/L 3.5-5.1 CHLORIDE (BEAKER) (test code = 382) 106 meq/L 98-107 CO2 (BEAKER) (test code = 355) 36 meq/L 22-29 H BLOOD UREA NITROGEN (BEAKER) (test code = 354) 20 mg/dL 7-21 CREATININE (BEAKER) (test code = 358) 0.88 mg/dL 0.57-1.25 GLUCOSE RANDOM (BEAKER) (test code = 652) 121 mg/dL 70-105 H CALCIUM (BEAKER) (test code = 697) 7.9 mg/dL 8.4-10.2 L EGFR (BEAKER) (test code = 1092) 99 mL/min/1.73 sq m ESTIMATED GFR IS NOT ACCURATE CREATININE CLEARANCE IN PREDICTING GLOMERULAR FILTRATION RATE. ESTIMATED GFR IS NOT APPLICABLE FOR DIALYSIS PATIENTS. Pneumatic Tube Operator ID - LYNN [id number] 04:42:00* Test Item Value Reference Range Interpretation Comments PHOSPHORUS (BEAKER) (test code = 604) 2.6 mg/dL 2.3-4.7 Pneumatic Tube Operator ID - LYNN [id number] 04:42:00* Test Item Value Reference Range Interpretation Comments MAGNESIUM (BEAKER) (test code = 627) 1.8 mg/dL 1.6-2.6 Pneumatic Tube Operator ID - LYNN MCBC W/PLT COUNT & AUTO [id number] 04:19:00* Test Item Value Reference Range Interpretation Comments WHITE BLOOD CELL COUNT (BEAKER) (test code = 775) 7.1 K/ L 3.5- 10.5 RED BLOOD CELL COUNT (BEAKER) (test code = 761) 2.15 M/ L 4.63-6 .08 L HEMOGLOBIN (BEAKER) (test code = 410) 5.7 GM/DL 13.7-17.5 LL HEMATOCRIT (BEAKER) (test code = 411) 19.1 % 40.1-51.0 L MEAN CORPUSCULAR VOLUME (BEAKER) (test code = 753) 88.8 fL 79. 0-92.2 MEAN CORPUSCULAR HEMOGLOBIN (BEAKER) (test code = 751) 26.5 pg 25.7-32.2 MEAN CORPUSCULAR HEMOGLOBIN CONC (BEAKER) (test code = 752) 29.8 GM/DL 32.3-36.5 L RED CELL DISTRIBUTION WIDTH (BEAKER) (test code = 412) 16.5 % 11.6-14.4 H PLATELET COUNT (BEAKER) (test code = 756) 227 K/CU MM 150-450 MEAN PLATELET VOLUME (BEAKER) (test code = 754) 11.1 fL 9.4-12 .4 NUCLEATED RED BLOOD CELLS (BEAKER) (test code = 413) 0 /100 WBC 0 -0 NEUTROPHILS RELATIVE PERCENT (BEAKER) (test code = 429) 73 % LYMPHOCYTES RELATIVE PERCENT (BEAKER) (test code = 430) 18 % MONOCYTES RELATIVE PERCENT (BEAKER) (test code = 431) 8 % EOSINOPHILS RELATIVE PERCENT (BEAKER) (test code = 432) 0 % BASOPHILS RELATIVE PERCENT (BEAKER) (test code = 437) 0 % NEUTROPHILS ABSOLUTE COUNT (BEAKER) (test code = 670) 5.18 K/ L 1.78-5.38 LYMPHOCYTES ABSOLUTE COUNT (BEAKER) (test code = 414) 1.29 K/ L 1.32-3.57 L MONOCYTES ABSOLUTE COUNT (BEAKER) (test code = 415) 0.57 K/ L 0. 30-0.82 EOSINOPHILS ABSOLUTE COUNT (BEAKER) (test code = 416) 0.03 K/ L 0.04-0.54 L BASOPHILS ABSOLUTE COUNT (BEAKER) (test code = 417) 0.00 K/ L 0. 01-0.08 L IMMATURE GRANULOCYTES-RELATIVE PERCENT (BEAKER) (test code = 2801) 0 % 0-1 RAD, CHEST, 1 VIEW, NON [id number] 01:54:00Reason for exam:->chest tube in placeFINAL REPORT RAD, CHEST, 1 VIEW, NON DEPT INDICATION: chest tube in place COMPARISON: Prior day's exam FINDINGS: Portable frontal view of the chest. IMPRESSION: Support Lines: No significant change. Lungs and pleura: Unchanged airspace and pleural opacities. No pneumothorax.Heart and mediastinum: Stable contours. Additional findings: None. Signed: Samir Rivera Verified Date/Time: 05/11/2020 01:54:58 - GLUCOSE [id number] 00:45:00* Test Item Value Reference Range Interpretation Comments POC-GLUCOSE METER (BEAKER) (test code = 1538) 133 mg/dL 70-110 H : TESTED AT [place] [id number] [facility], [address]: Pneumatic Tube Operator/Movie Actor ID = [id number] for Denny Carr POCT-GLUCOSE [id number] 18:26:00* Test Item Value Reference Range Interpretation Comments POC-GLUCOSE METER (BEAKER) (test code = 1538) 118 mg/dL 70-110 H : TESTED AT [place] [id number] [facility], [address]: Pneumatic Tube Operator/Movie Actor ID = [id number] for STANFORD PEM[place]ERTON Peripheral Blood Smear - Path [id number] 14:51:00* Test Item Value Reference Range Interpretation Comments WBC Morphology (test code = 2847) Toxic GranulationReactive Lymphoc ytes Pathologist Review (test code = 2640) Cell counts confirmed. Pathologist: (test code = 2849) Stefanie Horton M.D. (electronic si gnature) [facility] PATHOLOG[facility] REVIEW 2020-05-10 14:51:00* Test Item Value Reference Range Interpretation Comments WBC MORPHOLOGY (BEAKER) (test code = 2847) Toxic Granulation WBC MORPHOLOGY (BEAKER) (test code = 00609) Reactive Lymphocytes PERIPHERAL SMR REVIEW (BEAKER) (test code = 2640) Cell counts confi rmed. [id number] (BEAKER) (test code = 2845) Cher Horton M.D. (electronic signature) SPUTUM CULTURE + GRAM [id number] 10:37:00* Test Item Value Reference Range Interpretation Comments CULTURE (BEAKER) (test code = 1095) STAPHYLOCOCCUS AUREUS A 4+ Staphylococcus aureus Clindamycin (test code = 10) R Erythromycin (test code = 4) R Linezolid (test code = 40) S Nitrofurantoin (test code = 23) S Oxacillin (test code = 14) S Rifampin (test code = 43) S Tetracycline (test code = 2) S Trimethoprim + Sulfamethoxazole (test code = 47) S Vancomycin (test code = 13) S CULTURE (BEAKER) (test code = 1095) A 2 out of 4 media Aspergillus fumigatus GRAM STAIN RESULT (BEAKER) (test code = 1123) 4+ WBCs GRAM STAIN RESULT (BEAKER) (test code = 759385) 0-5 epithelial cell s GRAM STAIN RESULT (BEAKER) (test code = 926182) 2+ gra m positive cocci in clusters Manual [id number] 09:55:00* Test Item Value Reference Range Interpretation Comments % Neutros (manual) (test code = 1359) 80 % % Lymphs (manual) (test code = 1360) 11 % % Monos (manual) (test code = 1361) 8 % % Eos (manual) (test code = 1362) 1 % # Neutros (manual) (test code = 1365) 5.44 1.80- 8.00 K/L # Lymphs (manual) (test code = 1366) 0.75 1.48- 4.50 K/L L # Monos (manual) (test code = 1367) 0.54 0.00- 1.30 K/L # Eos (manual) (test code = 1368) 0.07 0.00- 0.50 K/L Total Counted (test code = 1351) 100 Platelet Morphology (test code = 486) Normal Toxic Granulation (test code = 771) Present Vacuolated Neutrophils (test code = 483) Present Tear Drop Cells (test code = 481) 1+ few ROSALIO (test code = ROSALIO) Platelets: normal Lab Interpretation (test code = 53656-4) Abnormal [facility](MANUAL DIFFERENTIAL)2020-05-10 09:55:00* Test Item Value Reference Range Interpretation Comments NEUTROPHILS - REL (DIFF) (BEAKER) (test code = 1359) 80 % LYMPHOCYTES - REL (DIFF) (BEAKER) (test code = 1360) 11 % MONOCYTES - REL (DIFF) (BEAKER) (test code = 1361) 8 % EOSINOPHILS - REL (DIFF) (BEAKER) (test code = 1362) 1 % NEUTROPHILS - ABS (DIFF) (BEAKER) (test code = 1365) 5.44 K/ L 1 .80-8.00 LYMPHOCYTES - ABS (DIFF) (BEAKER) (test code = 1366) 0.75 K/ L 1 .48-4.50 L MONOCYTES - ABS (DIFF) (BEAKER) (test code = 1367) 0.54 K/ L 0.0 0-1.30 EOSINOPHILS - ABS (DIFF) (BEAKER) (test code = 1368) 0.07 K/ L 0 .00-0.50 TOTAL COUNTED (BEAKER) (test code = 1351) 100 PLT MORPHOLOGY (BEAKER) (test code = 486) Normal TOXIC GRANULATION (BEAKER) (test code = 771) Present VACUOLATED NEUTROPHILS (BEAKER) (test code = 483) Present TEAR DROP CELLS (BEAKER) (test code = 481) 1+ few Platelets: normalCBC with platelet count + manual [id number] 07:01:00* Test Item Value Reference Range Interpretation Comments WBC (test code = 6690-2) 6.8 3.5- 10.5 K/L RBC (test code = 789-8) 2.65 4.63- 6.08 M/L L MCHC (test code = 786-4) 31.0 32.3- 36.5 GM/DL L Hematocrit (test code = 4544-3) 23.2 % 40.1-51 L MCV (test code = 787-2) 87.5 fL 79-92.2 MCH (test code = 785-6) 27.2 pg 25.7-32.2 RDW (test code = 788-0) 16.2 % 11.6-14.4 H Platelets (test code = 777-3) 263 150- 450 K/CU MM MPV (test code = 53902-6) 11.2 fL 9.4-12.4 nRBC (test code = 413) 0 0- 0 /100 WBC Lab Interpretation (test code = 70449-2) Abnormal [facility] WITH PLATELET COUNT + MANUAL [id number] 07:01:00* Test Item Value Reference Range Interpretation Comments WHITE BLOOD CELL COUNT (BEAKER) (test code = 775) 6.8 K/ L 3.5- 10.5 RED BLOOD CELL COUNT (BEAKER) (test code = 761) 2.65 M/ L 4.63-6 .08 L HEMOGLOBIN (BEAKER) (test code = 410) 7.2 GM/DL 13.7-17.5 L HEMATOCRIT (BEAKER) (test code = 411) 23.2 % 40.1-51.0 L MEAN CORPUSCULAR VOLUME (BEAKER) (test code = 753) 87.5 fL 79. 0-92.2 MEAN CORPUSCULAR HEMOGLOBIN (BEAKER) (test code = 751) 27.2 pg 25.7-32.2 MEAN CORPUSCULAR HEMOGLOBIN CONC (BEAKER) (test code = 752) 31.0 GM/DL 32.3-36.5 L RED CELL DISTRIBUTION WIDTH (BEAKER) (test code = 412) 16.2 % 11.6-14.4 H PLATELET COUNT (BEAKER) (test code = 756) 263 K/CU MM 150-450 MEAN PLATELET VOLUME (BEAKER) (test code = 754) 11.2 fL 9.4-12 .4 NUCLEATED RED BLOOD CELLS (BEAKER) (test code = 413) 0 /100 WBC 0 -0 Vitamin B12 and [id number] 05:54:00* Test Item Value Reference Range Interpretation Comments Vitamin B12 (test code = 2132-9) 638 pg/mL 213-816 Folate (test code = 2284-8) 9.20 ng/mL >=7.00 ROSALIO (test code = ROSALIO) Pneumatic Tube Operator ID - ELAINE L Lab Interpretation (test code = 94844-9) Normal [facility] 05:54:00* Test Item Value Reference Range Interpretation Comments FERRITIN (BEAKER) (test code = 361) 983.95 ng/mL 5.00-275.00 H Pneumatic Tube Operator ID - ELAINE LVITAMIN B12 AND [id number] 05:54:00* Test Item Value Reference Range Interpretation Comments VITAMIN B12 (BEAKER) (test code = 774) 638 pg/mL 213-816 FOLATE (BEAKER) (test code = 362) 9.20 ng/mL >=7.00 Pneumatic Tube Operator ID - ELAINE LBASIC METABOLIC [id number] 05:35:00* Test Item Value Reference Range Interpretation Comments SODIUM (BEAKER) (test code = 381) 142 meq/L 136-145 POTASSIUM (BEAKER) (test code = 379) 4.4 meq/L 3.5-5.1 CHLORIDE (BEAKER) (test code = 382) 106 meq/L 98-107 CO2 (BEAKER) (test code = 355) 35 meq/L 22-29 H BLOOD UREA NITROGEN (BEAKER) (test code = 354) 21 mg/dL 7-21 CREATININE (BEAKER) (test code = 358) 0.84 mg/dL 0.57-1.25 GLUCOSE RANDOM (BEAKER) (test code = 652) 134 mg/dL 70-105 H CALCIUM (BEAKER) (test code = 697) 7.8 mg/dL 8.4-10.2 L EGFR (BEAKER) (test code = 1092) 104 mL/min/1.73 sq m ESTIMATED GFR IS NOT ACCURATE CREATININE CLEARANCE IN PREDICTING GLOMERULAR FILTRATION RATE. ESTIMATED GFR IS NOT APPLICABLE FOR DIALYSIS PATIENTS. Pneumatic Tube Operator ID - ELAINE Lyons, [id number] 05:19:00* Test Item Value Reference Range Interpretation Comments Iron (test code = 2498-4) 25.0 ug/dL 40-160 L ROSALIO (test code = ROSALIO) Pneumatic Tube Operator ID - PIAYA L Lab Interpretation (test code = 85854-7) [facility], [id number] 05:19:00* Test Item Value Reference Range Interpretation Comments IRON (BEAKER) (test code = 547) 25.0 ug/dL 40.0-160.0 L Pneumatic Tube Operator ID - PIAYA LReticulocyte [id number] 04:56:00* Test Item Value Reference Range Interpretation Comments % Retic (test code = 19143-7) 1.8 % 0.5-1.8 ROSALIO (test code = ROSALIO) Pneumatic Tube Operator ID - [id number] Lab Interpretation (test code = 12760-5) Normal [facility]RET[facility]TE [id number] 04:56:00* Test Item Value Reference Range Interpretation Comments RETICULOCYTE COUNT PCT (BEAKER) (test code = 575) 1.8 % 0.5- 1.8 Pneumatic Tube Operator ID - [id number], CHEST, 1 VIEW, NON [id number] 03:11:00Reason for exam:->chest tube in placeFINAL REPORT RAD, CHEST, 1 VIEW, NON DEPT INDICATION: chest tube in place COMPARISON: Prior day's exam FINDINGS: Portable frontal view of the chest. IMPRESSION: Support Lines: Stable. Lungs and pleura: Unchanged airspace and pleural opacities. No pneumothorax.Heart and mediastinum: Stable contours. Additional findings: None. Signed: [facility] Verified Date/Time: 05/10/2020 03:11:44 W/PLT COUNT & AUTO [id number] 20:39:00* Test Item Value Reference Range Interpretation Comments WHITE BLOOD CELL COUNT (BEAKER) (test code = 775) 6.8 K/ L 3.5- 10.5 RED BLOOD CELL COUNT (BEAKER) (test code = 761) 2.45 M/ L 4.63-6 .08 L HEMOGLOBIN (BEAKER) (test code = 410) 6.7 GM/DL 13.7-17.5 L HEMATOCRIT (BEAKER) (test code = 411) 21.6 % 40.1-51.0 L MEAN CORPUSCULAR VOLUME (BEAKER) (test code = 753) 88.2 fL 79. 0-92.2 MEAN CORPUSCULAR HEMOGLOBIN (BEAKER) (test code = 751) 27.3 pg 25.7-32.2 MEAN CORPUSCULAR HEMOGLOBIN CONC (BEAKER) (test code = 752) 31.0 GM/DL 32.3-36.5 L RED CELL DISTRIBUTION WIDTH (BEAKER) (test code = 412) 16.2 % 11.6-14.4 H PLATELET COUNT (BEAKER) (test code = 756) 266 K/CU MM 150-450 MEAN PLATELET VOLUME (BEAKER) (test code = 754) 10.9 fL 9.4-12 .4 NUCLEATED RED BLOOD CELLS (BEAKER) (test code = 413) 0 /100 WBC 0 -0 NEUTROPHILS RELATIVE PERCENT (BEAKER) (test code = 429) 77 % LYMPHOCYTES RELATIVE PERCENT (BEAKER) (test code = 430) 15 % MONOCYTES RELATIVE PERCENT (BEAKER) (test code = 431) 7 % EOSINOPHILS RELATIVE PERCENT (BEAKER) (test code = 432) 1 % BASOPHILS RELATIVE PERCENT (BEAKER) (test code = 437) 0 % NEUTROPHILS ABSOLUTE COUNT (BEAKER) (test code = 670) 5.18 K/ L 1.78-5.38 LYMPHOCYTES ABSOLUTE COUNT (BEAKER) (test code = 414) 1.02 K/ L 1.32-3.57 L MONOCYTES ABSOLUTE COUNT (BEAKER) (test code = 415) 0.47 K/ L 0. 30-0.82 EOSINOPHILS ABSOLUTE COUNT (BEAKER) (test code = 416) 0.04 K/ L 0.04-0.54 BASOPHILS ABSOLUTE COUNT (BEAKER) (test code = 417) 0.01 K/ L 0. 01-0.08 IMMATURE GRANULOCYTES-RELATIVE PERCENT (BEAKER) (test code = 2801) 1 % 0-1 POCT-GLUCOSE [id number] 18:41:00* Test Item Value Reference Range Interpretation Comments POC-GLUCOSE METER (BEAKER) (test code = 1538) 139 mg/dL 70-110 H : TESTED AT [address], [address]: Pneumatic Tube Operator/Movie Actor ID = [id number] for MARGARETH OWENS Iron, TIBC, % sat. (without ferritin)2020-05-09 10:48:00* Test Item Value Reference Range Interpretation Comments Iron (test code = 2498-4) 23.0 ug/dL 40-160 L TIBC (test code = 2500-7) 138 ug/dL 250-450 L Iron % Saturation (test code = 2502-3) 17 % 20-55 L ROSALIO (test code = ROSALIO) Pneumatic Tube Operator ID - ADRIA Hall Lab Interpretation (test code = 38458-7) [facility]normal [facility], % SAT. (WITHOUT FERRITIN)2020-05-09 10:48:00* Test Item Value Reference Range Interpretation Comments IRON (BEAKER) (test code = 547) 23.0 ug/dL 40.0-160.0 L TOTAL IRON BINDING CAPACITY (BEAKER) (test code = 769) 138 ug/dL 250-450 L IRON % SATURATION (2) (BEAKER) (test code = 2590) 17 % 20-5 5 L Pneumatic Tube Operator ID - ADRIA VELAZQUEZ, [id number] 10:48:00* Test Item Value Reference Range Interpretation Comments IRON (BEAKER) (test code = 547) 23.0 ug/dL 40.0-160.0 L CBC W/PLT COUNT & AUTO [id number] 05:27:00* Test Item Value Reference Range Interpretation Comments WHITE BLOOD CELL COUNT (BEAKER) (test code = 775) 5.2 K/ L 3.5- 10.5 RED BLOOD CELL COUNT (BEAKER) (test code = 761) 2.29 M/ L 4.63-6 .08 L HEMOGLOBIN (BEAKER) (test code = 410) 5.9 GM/DL 13.7-17.5 LL HEMATOCRIT (BEAKER) (test code = 411) 20.4 % 40.1-51.0 L MEAN CORPUSCULAR VOLUME (BEAKER) (test code = 753) 89.1 fL 79. 0-92.2 MEAN CORPUSCULAR HEMOGLOBIN (BEAKER) (test code = 751) 25.8 pg 25.7-32.2 MEAN CORPUSCULAR HEMOGLOBIN CONC (BEAKER) (test code = 752) 28.9 GM/DL 32.3-36.5 L RED CELL DISTRIBUTION WIDTH (BEAKER) (test code = 412) 16.9 % 11.6-14.4 H PLATELET COUNT (BEAKER) (test code = 756) 273 K/CU MM 150-450 MEAN PLATELET VOLUME (BEAKER) (test code = 754) 11.3 fL 9.4-12 .4 NUCLEATED RED BLOOD CELLS (BEAKER) (test code = 413) 0 /100 WBC 0 -0 NEUTROPHILS RELATIVE PERCENT (BEAKER) (test code = 429) 73 % LYMPHOCYTES RELATIVE PERCENT (BEAKER) (test code = 430) 19 % MONOCYTES RELATIVE PERCENT (BEAKER) (test code = 431) 7 % EOSINOPHILS RELATIVE PERCENT (BEAKER) (test code = 432) 1 % BASOPHILS RELATIVE PERCENT (BEAKER) (test code = 437) 0 % NEUTROPHILS ABSOLUTE COUNT (BEAKER) (test code = 670) 3.80 K/ L 1.78-5.38 LYMPHOCYTES ABSOLUTE COUNT (BEAKER) (test code = 414) 0.97 K/ L 1.32-3.57 L MONOCYTES ABSOLUTE COUNT (BEAKER) (test code = 415) 0.39 K/ L 0. 30-0.82 EOSINOPHILS ABSOLUTE COUNT (BEAKER) (test code = 416) 0.05 K/ L 0.04-0.54 BASOPHILS ABSOLUTE COUNT (BEAKER) (test code = 417) 0.01 K/ L 0. 01-0.08 IMMATURE GRANULOCYTES-RELATIVE PERCENT (BEAKER) (test code = 2801) 0 % 0-1 [id number] 05:03:00* Test Item Value Reference Range Interpretation Comments PHOSPHORUS (BEAKER) (test code = 604) 2.6 mg/dL 2.3-4.7 Pneumatic Tube Operator ID - RUEL [id number] 05:03:00* Test Item Value Reference Range Interpretation Comments MAGNESIUM (BEAKER) (test code = 627) 1.9 mg/dL 1.6-2.6 Pneumatic Tube Operator ID - RUEL WBASIC METABOLIC [id number] 05:03:00* Test Item Value Reference Range Interpretation Comments SODIUM (BEAKER) (test code = 381) 144 meq/L 136-145 POTASSIUM (BEAKER) (test code = 379) 4.2 meq/L 3.5-5.1 CHLORIDE (BEAKER) (test code = 382) 107 meq/L 98-107 CO2 (BEAKER) (test code = 355) 35 meq/L 22-29 H BLOOD UREA NITROGEN (BEAKER) (test code = 354) 24 mg/dL 7-21 H CREATININE (BEAKER) (test code = 358) 0.91 mg/dL 0.57-1.25 GLUCOSE RANDOM (BEAKER) (test code = 652) 136 mg/dL 70-105 H CALCIUM (BEAKER) (test code = 697) 8.0 mg/dL 8.4-10.2 L EGFR (BEAKER) (test code = 1092) 95 mL/min/1.73 sq m ESTIMATED GFR IS NOT ACCURATE CREATININE CLEARANCE IN PREDICTING GLOMERULAR FILTRATION RATE. ESTIMATED GFR IS NOT APPLICABLE FOR DIALYSIS PATIENTS. Pneumatic Tube Operator ID - RUEL WCBC W/PLT COUNT & AUTO [id number] 04:44:00* Test Item Value Reference Range Interpretation Comments WHITE BLOOD CELL COUNT (BEAKER) (test code = 775) 5.2 K/ L 3.5- 10.5 RED BLOOD CELL COUNT (BEAKER) (test code = 761) 2.31 M/ L 4.63-6 .08 L HEMOGLOBIN (BEAKER) (test code = 410) 5.9 GM/DL 13.7-17.5 LL HEMATOCRIT (BEAKER) (test code = 411) 20.5 % 40.1-51.0 L MEAN CORPUSCULAR VOLUME (BEAKER) (test code = 753) 88.7 fL 79. 0-92.2 MEAN CORPUSCULAR HEMOGLOBIN (BEAKER) (test code = 751) 25.5 pg 25.7-32.2 L MEAN CORPUSCULAR HEMOGLOBIN CONC (BEAKER) (test code = 752) 28.8 GM/DL 32.3-36.5 L RED CELL DISTRIBUTION WIDTH (BEAKER) (test code = 412) 16.5 % 11.6-14.4 H PLATELET COUNT (BEAKER) (test code = 756) 277 K/CU MM 150-450 MEAN PLATELET VOLUME (BEAKER) (test code = 754) 11.0 fL 9.4-12 .4 NUCLEATED RED BLOOD CELLS (BEAKER) (test code = 413) 0 /100 WBC 0 -0 NEUTROPHILS RELATIVE PERCENT (BEAKER) (test code = 429) 73 % LYMPHOCYTES RELATIVE PERCENT (BEAKER) (test code = 430) 18 % MONOCYTES RELATIVE PERCENT (BEAKER) (test code = 431) 7 % EOSINOPHILS RELATIVE PERCENT (BEAKER) (test code = 432) 1 % BASOPHILS RELATIVE PERCENT (BEAKER) (test code = 437) 0 % NEUTROPHILS ABSOLUTE COUNT (BEAKER) (test code = 670) 3.80 K/ L 1.78-5.38 LYMPHOCYTES ABSOLUTE COUNT (BEAKER) (test code = 414) 0.96 K/ L 1.32-3.57 L MONOCYTES ABSOLUTE COUNT (BEAKER) (test code = 415) 0.38 K/ L 0. 30-0.82 EOSINOPHILS ABSOLUTE COUNT (BEAKER) (test code = 416) 0.05 K/ L 0.04-0.54 BASOPHILS ABSOLUTE COUNT (BEAKER) (test code = 417) 0.01 K/ L 0. 01-0.08 IMMATURE GRANULOCYTES-RELATIVE PERCENT (BEAKER) (test code = 2801) 0 % 0-1 RAD, CHEST, 1 VIEW, NON [id number] 03:17:00Reason for exam:->chest tube in placeFINAL REPORT RAD, CHEST, 1 VIEW, NON DEPT INDICATION: chest tube in place COMPARISON: Prior day's exam FINDINGS: Portable frontal view of the chest. IMPRESSION: Support Lines: Stable tracheostomy cannula and left PICC.Lungs and pleura: Right greater than left parenchymal and pleural opacities are not changed. No pneumothorax.Heart and mediastinum: Stable contours. Additional findings: None. Signed: Yue Parker [facility] Verified Date/Time: 05/09/2020 03:17:49 -GLUCOSE [id number] 21:58:00* Test Item Value Reference Range Interpretation Comments POC-GLUCOSE METER (BEAKER) (test code = 1538) 105 mg/dL 70-110 : TESTED AT [address], [address]: Pneumatic Tube Operator/Movie Actor ID = [id number] for LAUREN LEHMAN POCT-GLUCOSE [id number] 18:05:00* Test Item Value Reference Range Interpretation Comments POC-GLUCOSE METER (BEAKER) (test code = 1538) 111 mg/dL 70-110 H : TESTED AT [facility] [address], [address]: Pneumatic Tube Operator/Movie Actor ID = [id number] for JUAN C LORA POCT-GLUCOSE [id number] 12:53:00* Test Item Value Reference Range Interpretation Comments POC-GLUCOSE METER (BEAKER) (test code = 1538) 129 mg/dL 70-110 H : TESTED AT [facility] [address], [address]: Pneumatic Tube Operator/Movie Actor ID = [id number] for JUAN C LORA [id number] 07:37:00Scan ResultQUEST NON-INTERFACED LABSierra [facility] HospitalPHOSPHORUS2020-06-15 03:43:00* Test Item Value Reference Range Interpretation Comments PHOSPHORUS (BEAKER) (test code = 604) 2.5 mg/dL 2.3-4.7 Pneumatic Tube Operator ANDREZ HENRY [id number] 03:43:00* Test Item Value Reference Range Interpretation Comments MAGNESIUM (BEAKER) (test code = 627) 2.1 mg/dL 1.6-2.6 Pneumatic Tube Operator ID Dong HENRY LBASIC METABOLIC [id number] 03:43:00* Test Item Value Reference Range Interpretation Comments SODIUM (BEAKER) (test code = 381) 144 meq/L 136-145 POTASSIUM (BEAKER) (test code = 379) 4.2 meq/L 3.5-5.1 CHLORIDE (BEAKER) (test code = 382) 107 meq/L 98-107 CO2 (BEAKER) (test code = 355) 35 meq/L 22-29 H BLOOD UREA NITROGEN (BEAKER) (test code = 354) 26 mg/dL 7-21 H CREATININE (BEAKER) (test code = 358) 1.00 mg/dL 0.57-1.25 GLUCOSE RANDOM (BEAKER) (test code = 652) 122 mg/dL 70-105 H CALCIUM (BEAKER) (test code = 697) 8.0 mg/dL 8.4-10.2 L EGFR (BEAKER) (test code = 1092) 85 mL/min/1.73 sq m ESTIMATED GFR IS NOT ACCURATE CREATININE CLEARANCE IN PREDICTING GLOMERULAR FILTRATION RATE. ESTIMATED GFR IS NOT APPLICABLE FOR DIALYSIS PATIENTS. Pneumatic Tube Operator ID Dong HENRY LCBC W/PLT COUNT & AUTO [id number] 03:29:00* Test Item Value Reference Range Interpretation Comments WHITE BLOOD CELL COUNT (BEAKER) (test code = 775) 4.9 K/ L 3.5- 10.5 RED BLOOD CELL COUNT (BEAKER) (test code = 761) 2.80 M/ L 4.63-6 .08 L HEMOGLOBIN (BEAKER) (test code = 410) 7.1 GM/DL 13.7-17.5 L HEMATOCRIT (BEAKER) (test code = 411) 25.2 % 40.1-51.0 L MEAN CORPUSCULAR VOLUME (BEAKER) (test code = 753) 90.0 fL 79. 0-92.2 MEAN CORPUSCULAR HEMOGLOBIN (BEAKER) (test code = 751) 25.4 pg 25.7-32.2 L MEAN CORPUSCULAR HEMOGLOBIN CONC (BEAKER) (test code = 752) 28.2 GM/DL 32.3-36.5 L RED CELL DISTRIBUTION WIDTH (BEAKER) (test code = 412) 16.8 % 11.6-14.4 H PLATELET COUNT (BEAKER) (test code = 756) 280 K/CU MM 150-450 MEAN PLATELET VOLUME (BEAKER) (test code = 754) 11.2 fL 9.4-12 .4 NUCLEATED RED BLOOD CELLS (BEAKER) (test code = 413) 0 /100 WBC 0 -0 NEUTROPHILS RELATIVE PERCENT (BEAKER) (test code = 429) 70 % LYMPHOCYTES RELATIVE PERCENT (BEAKER) (test code = 430) 20 % MONOCYTES RELATIVE PERCENT (BEAKER) (test code = 431) 8 % EOSINOPHILS RELATIVE PERCENT (BEAKER) (test code = 432) 1 % BASOPHILS RELATIVE PERCENT (BEAKER) (test code = 437) 0 % NEUTROPHILS ABSOLUTE COUNT (BEAKER) (test code = 670) 3.45 K/ L 1.78-5.38 LYMPHOCYTES ABSOLUTE COUNT (BEAKER) (test code = 414) 0.98 K/ L 1.32-3.57 L MONOCYTES ABSOLUTE COUNT (BEAKER) (test code = 415) 0.40 K/ L 0. 30-0.82 EOSINOPHILS ABSOLUTE COUNT (BEAKER) (test code = 416) 0.06 K/ L 0.04-0.54 BASOPHILS ABSOLUTE COUNT (BEAKER) (test code = 417) 0.00 K/ L 0. 01-0.08 L IMMATURE GRANULOCYTES-RELATIVE PERCENT (BEAKER) (test code = 2801) 0 % 0-1 RAD, CHEST, 1 VIEW, NON [id number] 03:16:00Reason for exam:->s/p RIGHT decorticationShould this be performed at the bedside?->YesFINAL REPORT RAD, CHEST, 1 VIEW, NON DEPT INDICATION: s/p RIGHT decortication COMPARISON: Exam from 13 hours prior FINDINGS: Portable frontal view of the chest. IMPRESSION: Support Lines: Stable. Lungs and pleura: Unchanged right greater than left parenchymal and pleural opacities. No pneumothorax.Heart and mediastinum: Stable contours. Additional findings: None. Signed: Yue Parker Verified Date/Time: 05/08/2020 03:16:21 -GLUCOSE [id number] 19:03:00* Test Item Value Reference Range Interpretation Comments POC-GLUCOSE METER (BEAKER) (test code = 1538) 106 mg/dL 70-110 : TESTED AT [facility] [address], [address]: Pneumatic Tube Operator/Movie Actor ID = [id number] for EL ODONNELL POCT-GLUCOSE [id number] 13:41:00* Test Item Value Reference Range Interpretation Comments POC-GLUCOSE METER (BEAKER) (test code = 1538) 153 mg/dL 70-110 H : TESTED AT [facility] [address], [address]: Pneumatic Tube Operator/Movie Actor ID = [id number] for VAMSHI BRENNAN RAD, CHEST, 1 VIEW, NON [id number] 11:50:00Reason for exam:->Post-opShould this be performed at the bedside?->YesFINAL REPORT Exam: RAD, CHEST, 1 VIEW, NON DEPTDate: 05/07/2020 11:43 AM Indication: Postoperative Comparison: Chest radiograph of earlier the same day FINDINGS: Lines/Tubes: Tracheostomy and left PICC line unchanged. There are multiple EKG leads and wires overlying the patient. Lungs: The lung volumes are low. Unchanged bilateral right greater than left airspace opacities. Pleura: Small right pleural effusion. No pneumothorax. Heart/Mediastinum:The cardiomediastinal silhouette is unchanged in size and contour. Bones/Soft Tissues: No acute osseous injury. Old right clavicular fracture. Abdomen: No free air below the diaphragm. IMPRESSION:No significant interval change. Signed: Humberto Cisse MDReport Verified Date/Time: 05/07/2020 11:50:16 Reading Location: [facility] C013Y CT Body Reading Room Electronically signed by: HUMBERTO CISSE MD on 2019 11:50 AM [id number] 04:58:00* Test Item Value Reference Range Interpretation Comments PHOSPHORUS (BEAKER) (test code = 604) 3.5 mg/dL 2.3-4.7 Pneumatic Tube Operator ANDREZ HENRY [id number] 04:58:00* Test Item Value Reference Range Interpretation Comments MAGNESIUM (BEAKER) (test code = 627) 2.1 mg/dL 1.6-2.6 Pneumatic Tube Operator ANDREZ HENRY LBASIC METABOLIC [id number] 04:58:00* Test Item Value Reference Range Interpretation Comments SODIUM (BEAKER) (test code = 381) 143 meq/L 136-145 POTASSIUM (BEAKER) (test code = 379) 4.6 meq/L 3.5-5.1 CHLORIDE (BEAKER) (test code = 382) 108 meq/L 98-107 H CO2 (BEAKER) (test code = 355) 30 meq/L 22-29 H BLOOD UREA NITROGEN (BEAKER) (test code = 354) 28 mg/dL 7-21 H CREATININE (BEAKER) (test code = 358) 1.00 mg/dL 0.57-1.25 GLUCOSE RANDOM (BEAKER) (test code = 652) 126 mg/dL 70-105 H CALCIUM (BEAKER) (test code = 697) 8.2 mg/dL 8.4-10.2 L EGFR (BEAKER) (test code = 1092) 85 mL/min/1.73 sq m ESTIMATED GFR IS NOT ACCURATE CREATININE CLEARANCE IN PREDICTING GLOMERULAR FILTRATION RATE. ESTIMATED GFR IS NOT APPLICABLE FOR DIALYSIS PATIENTS. Pneumatic Tube Operator ANDREZ HENRY LCBC W/PLT COUNT & AUTO [id number] 04:00:00* Test Item Value Reference Range Interpretation Comments WHITE BLOOD CELL COUNT (BEAKER) (test code = 775) 4.5 K/ L 3.5- 10.5 RED BLOOD CELL COUNT (BEAKER) (test code = 761) 2.89 M/ L 4.63-6 .08 L HEMOGLOBIN (BEAKER) (test code = 410) 7.4 GM/DL 13.7-17.5 L HEMATOCRIT (BEAKER) (test code = 411) 26.0 % 40.1-51.0 L MEAN CORPUSCULAR VOLUME (BEAKER) (test code = 753) 90.0 fL 79. 0-92.2 MEAN CORPUSCULAR HEMOGLOBIN (BEAKER) (test code = 751) 25.6 pg 25.7-32.2 L MEAN CORPUSCULAR HEMOGLOBIN CONC (BEAKER) (test code = 752) 28.5 GM/DL 32.3-36.5 L RED CELL DISTRIBUTION WIDTH (BEAKER) (test code = 412) 16.7 % 11.6-14.4 H PLATELET COUNT (BEAKER) (test code = 756) 277 K/CU MM 150-450 MEAN PLATELET VOLUME (BEAKER) (test code = 754) 11.4 fL 9.4-12 .4 NUCLEATED RED BLOOD CELLS (BEAKER) (test code = 413) 0 /100 WBC 0 -0 NEUTROPHILS RELATIVE PERCENT (BEAKER) (test code = 429) 70 % LYMPHOCYTES RELATIVE PERCENT (BEAKER) (test code = 430) 19 % MONOCYTES RELATIVE PERCENT (BEAKER) (test code = 431) 8 % EOSINOPHILS RELATIVE PERCENT (BEAKER) (test code = 432) 2 % BASOPHILS RELATIVE PERCENT (BEAKER) (test code = 437) 0 % NEUTROPHILS ABSOLUTE COUNT (BEAKER) (test code = 670) 3.15 K/ L 1.78-5.38 LYMPHOCYTES ABSOLUTE COUNT (BEAKER) (test code = 414) 0.87 K/ L 1.32-3.57 L MONOCYTES ABSOLUTE COUNT (BEAKER) (test code = 415) 0.37 K/ L 0. 30-0.82 EOSINOPHILS ABSOLUTE COUNT (BEAKER) (test code = 416) 0.07 K/ L 0.04-0.54 BASOPHILS ABSOLUTE COUNT (BEAKER) (test code = 417) 0.01 K/ L 0. 01-0.08 IMMATURE GRANULOCYTES-RELATIVE PERCENT (BEAKER) (test code = 2801) 0 % 0-1 RAD, CHEST, 1 VIEW, NON [id number] 02:50:00Reason for exam:->s/p RIGHT decorticationShould this be performed at the bedside?->YesFINAL REPORT RAD, CHEST, 1 VIEW, NON DEPT INDICATION: s/p RIGHT decortication COMPARISON: Prior day's exam FINDINGS: Portable frontal view of the chest. IMPRESSION: Support Lines: Unchanged left upper extremity PICC with tip overlying the right atrium, consider repositioning. Otherwise unchanged support apparatus.. Lungs and pleura: Unchanged airspace and pleural opacities. No pneumothorax.Heart and mediastinum: Stable contours. Additional findings: None. Signed: Chad Garcia Verified Date/Time: 05/07/2020 02:50:18 -GLUCOSE [id number] 00:11:00* Test Item Value Reference Range Interpretation Comments POC-GLUCOSE METER (BEAKER) (test code = 1538) 119 mg/dL 70-110 H : TESTED AT [place] [id number], [address]: Pneumatic Tube Operator/Movie Actor ID = [id number] for Tiffany Godinez POCT-GLUCOSE [id number] 20:20:00* Test Item Value Reference Range Interpretation Comments POC-GLUCOSE METER (BEAKER) (test code = 1538) 125 mg/dL 70-110 H : TESTED AT [place] [id number], [address]: Pneumatic Tube Operator/Movie Actor ID = [id number] for PIPPA JUAREZ POCT-GLUCOSE [id number] 18:56:00* Test Item Value Reference Range Interpretation Comments POC-GLUCOSE METER (BEAKER) (test code = 1538) 133 mg/dL 70-110 H : TESTED AT [place] [id number] [facility], [address]: Pneumatic Tube Operator/Movie Actor ID = [id number] for MIKAVAMSHI POCT-GLUCOSE [id number] 14:28:00* Test Item Value Reference Range Interpretation Comments POC-GLUCOSE METER (BEAKER) (test code = 1538) 120 mg/dL 70-110 H : TESTED AT [facility] [address] [place], [address]: Pneumatic Tube Operator/Movie Actor ID = [id number] for VAMSHI BRENNAN Blood culture, routine [id number] 08:38:00* Test Item Value Reference Range Interpretation Comments Result (test code = 6463-4) No [facility] [id number] 08:38:00 * Test Item Value Reference Range Interpretation Comments CULTURE (BEAKER) (test code = 1095) No growth BLOOD CULTURE, ROUTINE [id number] 08:38:00* Test Item Value Reference Range Interpretation Comments CULTURE (BEAKER) (test code = 1095) No growth [id number] 03:59:00* Test Item Value Reference Range Interpretation Comments PHOSPHORUS (BEAKER) (test code = 604) 3.9 mg/dL 2.3-4.7 Pneumatic Tube Operator ID - LYNN [id number] 03:59:00* Test Item Value Reference Range Interpretation Comments MAGNESIUM (BEAKER) (test code = 627) 2.1 mg/dL 1.6-2.6 Pneumatic Tube Operator ID - LYNN MBASIC METABOLIC [id number] 03:59:00* Test Item Value Reference Range Interpretation Comments SODIUM (BEAKER) (test code = 381) 142 meq/L 136-145 POTASSIUM (BEAKER) (test code = 379) 4.3 meq/L 3.5-5.1 CHLORIDE (BEAKER) (test code = 382) 107 meq/L 98-107 CO2 (BEAKER) (test code = 355) 30 meq/L 22-29 H BLOOD UREA NITROGEN (BEAKER) (test code = 354) 28 mg/dL 7-21 H CREATININE (BEAKER) (test code = 358) 0.99 mg/dL 0.57-1.25 GLUCOSE RANDOM (BEAKER) (test code = 652) 118 mg/dL 70-105 H CALCIUM (BEAKER) (test code = 697) 8.1 mg/dL 8.4-10.2 L EGFR (BEAKER) (test code = 1092) 86 mL/min/1.73 sq m ESTIMATED GFR IS NOT ACCURATE CREATININE CLEARANCE IN PREDICTING GLOMERULAR FILTRATION RATE. ESTIMATED GFR IS NOT APPLICABLE FOR DIALYSIS PATIENTS. Pneumatic Tube Operator ID - LYNN MCBC W/PLT COUNT & AUTO [id number] 03:32:00* Test Item Value Reference Range Interpretation Comments WHITE BLOOD CELL COUNT (BEAKER) (test code = 775) 4.9 K/ L 3.5- 10.5 RED BLOOD CELL COUNT (BEAKER) (test code = 761) 2.97 M/ L 4.63-6 .08 L HEMOGLOBIN (BEAKER) (test code = 410) 7.5 GM/DL 13.7-17.5 L HEMATOCRIT (BEAKER) (test code = 411) 26.1 % 40.1-51.0 L MEAN CORPUSCULAR VOLUME (BEAKER) (test code = 753) 87.9 fL 79. 0-92.2 MEAN CORPUSCULAR HEMOGLOBIN (BEAKER) (test code = 751) 25.3 pg 25.7-32.2 L MEAN CORPUSCULAR HEMOGLOBIN CONC (BEAKER) (test code = 752) 28.7 GM/DL 32.3-36.5 L RED CELL DISTRIBUTION WIDTH (BEAKER) (test code = 412) 16.9 % 11.6-14.4 H PLATELET COUNT (BEAKER) (test code = 756) 256 K/CU MM 150-450 MEAN PLATELET VOLUME (BEAKER) (test code = 754) 11.3 fL 9.4-12 .4 NUCLEATED RED BLOOD CELLS (BEAKER) (test code = 413) 0 /100 WBC 0 -0 NEUTROPHILS RELATIVE PERCENT (BEAKER) (test code = 429) 72 % LYMPHOCYTES RELATIVE PERCENT (BEAKER) (test code = 430) 18 % MONOCYTES RELATIVE PERCENT (BEAKER) (test code = 431) 8 % EOSINOPHILS RELATIVE PERCENT (BEAKER) (test code = 432) 1 % BASOPHILS RELATIVE PERCENT (BEAKER) (test code = 437) 0 % NEUTROPHILS ABSOLUTE COUNT (BEAKER) (test code = 670) 3.51 K/ L 1.78-5.38 LYMPHOCYTES ABSOLUTE COUNT (BEAKER) (test code = 414) 0.90 K/ L 1.32-3.57 L MONOCYTES ABSOLUTE COUNT (BEAKER) (test code = 415) 0.40 K/ L 0. 30-0.82 EOSINOPHILS ABSOLUTE COUNT (BEAKER) (test code = 416) 0.05 K/ L 0.04-0.54 BASOPHILS ABSOLUTE COUNT (BEAKER) (test code = 417) 0.01 K/ L 0. 01-0.08 IMMATURE GRANULOCYTES-RELATIVE PERCENT (BEAKER) (test code = 2801) 1 % 0-1 RAD, CHEST, 1 VIEW, NON [id number] 02:45:00Reason for exam:->s/p RIGHT decorticationShould this be performed at the bedside?->YesFINAL REPORT RAD, CHEST, 1 VIEW, NON DEPT INDICATION: s/p RIGHT decortication COMPARISON: Prior day's exam FINDINGS: Portable frontal view of the chest. IMPRESSION: Support Lines: Stable. Lungs and pleura: Unchanged airspace and pleural opacities. No pneumothorax.Heart and mediastinum: Stable contours. Additional findings: None. Signed: Chad Garciaeport Verified Date/Time: 05/06/2020 02:45:02 , CHEST, WITHOUT [id number] 01:09:00 FINAL REPORT TECHNIQUE: CT scan of the chest WITHOUT intr avenous contrast. Dose modulation, iterative reconstruction, and/or weight-based adjustment of the mA/kV was utilized to reduce the radiation dose to as low as reasonably achievable. INDICATION: Mold in sputum. COMPARISON: 04/20/2020. FINDI NGS: ABSENCE OF INTRAVENOUS CONTRAST DECREASES SENSITIVITY FOR DETECTION OF FOC AL LESIONS AND VASCULAR PATHOLOGY. LINES/TUBES: Tracheostomy cannula in place wi thin the thoracic trachea. Left PICC terminates at the cavoatrial junction. The pigtail catheter has been removed from the right chest base and there is small a mount of air along the previous tract LUNGS AND AIRWAYS: There is patchy consoli dative opacities with interspersed ground glass parenchymal attenuation througho ut the central peripheral right lung. Consolidation with bronchograms in the rig ht lower lobe. There are similar less severe consolidative and groundglass opaci ties centrally distributed throughout the left lung with left basilar consolidat ion with air bronchograms. There is cavitary formation in the right upper lobe a djacent to the minor fissure similar appearance compared to prior with axial kingsley surements of 1.4 x 1.9 cm. Small amount of secretions present within the trachea . Central airways otherwise patent. PLEURA: Significant decreased size of the lo culated right pneumothorax. There are small bilateral pleural effusions containi ng a few foci of air. HEART AND MEDIASTINUM: The visualized thyroid gland is unr emarkable. There are several prominent mediastinal lymph nodes including a parat melody node that is 1.8 cm diameter similar to previous and which is likely kelly ctive. Heart is within the upper limits of normal in size and there is a trace p ericardial effusion. SOFT TISSUES AND BONES: Diffuse subcutaneous stranding. No acute osseous abnormality. UPPER ABDOMEN: Splenomegaly with length of 16.2 cm. IMPRESSION: 1. Bilateral right greater than left extensive lung disease with bib asilar consolidations with air bronchograms and small cavitary formation in the right upper lobe. Imaging findings are nonspecific but suggestive of combination of multifocal pneumonitis and atelectasis.2. Small bilateral pleural effusions containing a few foci of air.3. Significant decreased size of the previous right loculated pneumothorax.4. Splenomegaly. Signed: Yue Parker MDReport Verified Date/Time: 05/06/2020 01:09:14 chest without IV [id number] 01:09:00 Interface, External Ris In - 05/06/2020 1:11 AM CDTFINAL REPORT PATIENT ID: [id number] TECHNIQUE: CT scan of the chest WITHOUT intravenous contrast. Dose modul ation, iterative reconstruction, and/or weight-based adjustment of the mA/kV was utilized to reduce the radiation dose to as low as reasonably achievable. INDIC ATION: Mold in sputum. COMPARISON: 04/20/2020. FINDINGS: ABSENCE OF INTRAVENOUS CONTRAST DECREASES SENSITIVITY FOR DETECTION OF FOCAL LESIONS AND VASCULAR PATH OLOGY. LINES/TUBES: Tracheostomy cannula in place within the thoracic trachea. L eft PICC terminates at the cavoatrial junction. The pigtail catheter has been re moved from the right chest base and there is small amount of air along the previ ous tract LUNGS AND AIRWAYS: There is patchy consolidative opacities with inters persed ground glass parenchymal attenuation throughout the central peripheral ri ght lung. Consolidation with bronchograms in the right lower lobe. There are sim ilar less severe consolidative and groundglass opacities centrally distributed t hroughout the left lung with left basilar consolidation with air bronchograms. T here is cavitary formation in the right upper lobe adjacent to the minor fissure similar appearance compared to prior with axial measurements of 1.4 x 1.[address] amount of secretions present within the trachea. [...] is likely reactive. Heart is within the u pper limits of normal in size and there is a trace pericardial effusion. SOFT TI SSUES AND BONES: Diffuse subcutaneous stranding. No acute osseous abnormality. U PPER ABDOMEN: Splenomegaly with length of 16.2 cm. IMPRESSION: 1. Bilateral rig ht greater than left extensive lung disease with bibasilar consolidations with a ir bronchograms and small cavitary formation in the right upper lobe. Imaging fi ndings are nonspecific but suggestive of combination of multifocal pneumonitis a nd atelectasis.2. Small bilateral pleural effusions containing a few foci of air .3. Significant decreased size of the previous right loculated pneumothorax.4. S plenomegaly. Signed: Yue Parker [facility] Verified Date/Time: 05/06/2020 01:09 :14 [facility] [id number] 23:17:00* Test Item Value Reference Range Interpretation Comments POC-GLUCOSE METER (BEAKER) (test code = 1538) 139 mg/dL 70-110 H : TESTED AT [facility] [address], [address]: Pneumatic Tube Operator/Movie Actor ID = [id number] for PIPPA JUAREZ POCT-GLUCOSE [id number] 18:33:00* Test Item Value Reference Range Interpretation Comments POC-GLUCOSE METER (BEAKER) (test code = 1538) 142 mg/dL 70-110 H : TESTED AT [facility] [address], [address]: Pneumatic Tube Operator/Movie Actor ID = [id number] for VAMSHI BRENNAN POCT-GLUCOSE [id number] 14:45:00* Test Item Value Reference Range Interpretation Comments POC-GLUCOSE METER (BEAKER) (test code = 1538) 130 mg/dL 70-110 H : TESTED AT [facility] [address], [address]: Pneumatic Tube Operator/Movie Actor ID = [id number] for VAMSHI BRENNAN Blood [id number] 09:00:00* Test Item Value Reference Range Interpretation Comments Result (test code = 6463-4) No growth in 5 days [facility] [id number] 09:00:00* Test Item Value Reference Range Interpretation Comments CULTURE (BEAKER) (test code = 1095) No growth in 5 days BLOOD [id number] 09:00:00* Test Item Value Reference Range Interpretation Comments CULTURE (BEAKER) (test code = 1095) No growth in 5 days POCT-GLUCOSE [id number] 05:42:00* Test Item Value Reference Range Interpretation Comments POC-GLUCOSE METER (BEAKER) (test code = 1538) 145 mg/dL 70-110 H : TESTED AT [place] [id number] [facility], [address]: Pneumatic Tube Operator/Movie Actor ID = [id number] for Sukhdeep Arreguin Hepatic function [id number] 03:50:00* Test Item Value Reference Range Interpretation Comments Protein, Total (test code = 2885-2) 7.5 6.0- 8.3 gm/dL Specimen slightly hemolyzed Albumin (test code = 34967-7) 2.2 g/dL 3.5-5 L Specimen slightly hemolyzed Total Bilirubin (test code = 1974-2) 0.4 mg/dL 0.2-1.2 Specimen slightly hemolyzed Bilirubin, Direct (test code = 1967-7) 0.2 mg/dL 0.1-0.5 Specimen slightly hemolyzed Alkaline Phosphatase (test code = 6768-6) 271 U/L 40-150 H AST (test code = 1920-8) 20 U/L 5-34 Spe cimen slightly hemolyzed ALT (test code = 1742-6) 24 U/L 6-55 Spe cimen slightly hemolyzed ROSALIO (test code = ROSALIO) Pneumatic Tube Operator ID - LYNN Adela Lab Interpretation (test code = 41528-7) [facility]normal [id number] 03:50:00* Test Item Value Reference Range Interpretation Comments MAGNESIUM (BEAKER) (test code = 627) 2.0 mg/dL 1.6-2.6 Specimen slightly hemolyzed Pneumatic Tube Operator ID - LYNN [id number] 03:50:00* Test Item Value Reference Range Interpretation Comments PHOSPHORUS (BEAKER) (test code = 604) 3.2 mg/dL 2.3-4.7 Specimen slightly hemolyzed Pneumatic Tube Operator ID - LYNN MBASIC METABOLIC [id number] 03:50:00* Test Item Value Reference Range Interpretation Comments SODIUM (BEAKER) (test code = 381) 142 meq/L 136-145 POTASSIUM (BEAKER) (test code = 379) 4.4 meq/L 3.5-5.1 Specimen slightly hemolyzed CHLORIDE (BEAKER) (test code = 382) 107 meq/L 98-107 CO2 (BEAKER) (test code = 355) 28 meq/L 22-29 BLOOD UREA NITROGEN (BEAKER) (test code = 354) 29 mg/dL 7-21 H CREATININE (BEAKER) (test code = 358) 0.98 mg/dL 0.57-1.25 Specimen slightly hemolyzed GLUCOSE RANDOM (BEAKER) (test code = 652) 144 mg/dL 70-105 H CALCIUM (BEAKER) (test code = 697) 8.1 mg/dL 8.4-10.2 L EGFR (BEAKER) (test code = 1092) 87 mL/min/1.73 sq m ESTIMATED GFR IS NOT ACCURATE CREATININE CLEARANCE IN PREDICTING GLOMERULAR FILTRATION RATE. ESTIMATED GFR IS NOT APPLICABLE FOR DIALYSIS PATIENTS. Pneumatic Tube Operator ID - LYNN MHEPATIC FUNCTION [id number] 03:50:00* Test Item Value Reference Range Interpretation Comments TOTAL PROTEIN (BEAKER) (test code = 770) 7.5 gm/dL 6.0-8.3 Specimen slightly hemolyzed ALBUMIN (BEAKER) (test code = 1145) 2.2 g/dL 3.5-5.0 L Specimen slightly hemolyzed BILIRUBIN TOTAL (BEAKER) (test code = 377) 0.4 mg/dL 0.2-1.2 Specimen slightly hemolyzed BILIRUBIN DIRECT (BEAKER) (test code = 706) 0.2 mg/dL 0.1-0.5 Specimen slightly hemolyzed ALKALINE PHOSPHATASE (BEAKER) (test code = 346) 271 U/L 40-150 H AST (SGOT) (BEAKER) (test code = 353) 20 U/L 5-34 Specimen slightly hemolyzed ALT (SGPT) (BEAKER) (test code = 347) 24 U/L 6-55 Specimen slightly hemolyzed Pneumatic Tube Operator ID - LYNN MCBC W/PLT COUNT & AUTO [id number] 03:33:00* Test Item Value Reference Range Interpretation Comments WHITE BLOOD CELL COUNT (BEAKER) (test code = 775) 5.3 K/ L 3.5- 10.5 RED BLOOD CELL COUNT (BEAKER) (test code = 761) 2.99 M/ L 4.63-6 .08 L HEMOGLOBIN (BEAKER) (test code = 410) 7.6 GM/DL 13.7-17.5 L HEMATOCRIT (BEAKER) (test code = 411) 25.7 % 40.1-51.0 L MEAN CORPUSCULAR VOLUME (BEAKER) (test code = 753) 86.0 fL 79. 0-92.2 MEAN CORPUSCULAR HEMOGLOBIN (BEAKER) (test code = 751) 25.4 pg 25.7-32.2 L MEAN CORPUSCULAR HEMOGLOBIN CONC (BEAKER) (test code = 752) 29.6 GM/DL 32.3-36.5 L RED CELL DISTRIBUTION WIDTH (BEAKER) (test code = 412) 17.1 % 11.6-14.4 H PLATELET COUNT (BEAKER) (test code = 756) 253 K/CU MM 150-450 MEAN PLATELET VOLUME (BEAKER) (test code = 754) 11.9 fL 9.4-12 .4 NUCLEATED RED BLOOD CELLS (BEAKER) (test code = 413) 0 /100 WBC 0 -0 NEUTROPHILS RELATIVE PERCENT (BEAKER) (test code = 429) 72 % LYMPHOCYTES RELATIVE PERCENT (BEAKER) (test code = 430) 18 % MONOCYTES RELATIVE PERCENT (BEAKER) (test code = 431) 8 % EOSINOPHILS RELATIVE PERCENT (BEAKER) (test code = 432) 1 % BASOPHILS RELATIVE PERCENT (BEAKER) (test code = 437) 0 % NEUTROPHILS ABSOLUTE COUNT (BEAKER) (test code = 670) 3.79 K/ L 1.78-5.38 LYMPHOCYTES ABSOLUTE COUNT (BEAKER) (test code = 414) 0.97 K/ L 1.32-3.57 L MONOCYTES ABSOLUTE COUNT (BEAKER) (test code = 415) 0.41 K/ L 0. 30-0.82 EOSINOPHILS ABSOLUTE COUNT (BEAKER) (test code = 416) 0.06 K/ L 0.04-0.54 BASOPHILS ABSOLUTE COUNT (BEAKER) (test code = 417) 0.01 K/ L 0. 01-0.08 IMMATURE GRANULOCYTES-RELATIVE PERCENT (BEAKER) (test code = 2801) 1 % 0-1 RAD, CHEST, 1 VIEW, NON [id number] 01:49:00Reason for exam:->chest tube in placeFINAL REPORT RAD, CHEST, 1 VIEW, NON DEPT INDICATION: chest tube in place COMPARISON: Prior day's exam FINDINGS: Portable frontal view of the chest. IMPRESSION: Support Lines: Stable. Lungs and pleura: No significant change in right greater than left parenchymal opacities and layering pleural effusions. No pneumothorax.Heart and mediastinum: Stable contours. Additional findings: None. Signed: [facility]bridge[facility] Verified Date/Time: 05/05/2020 01:49:44 -GLUCOSE [id number] 01:08:00* Test Item Value Reference Range Interpretation Comments POC-GLUCOSE METER (BEAKER) (test code = 1538) 136 mg/dL 70-110 H : TESTED AT [address], [address]: Pneumatic Tube Operator/Movie Actor ID = [id number] for IBENEME, EUCHERIA POCT-GLUCOSE [id number] 21:30:00* Test Item Value Reference Range Interpretation Comments POC-GLUCOSE METER (BEAKER) (test code = 1538) 160 mg/dL 70-110 H : TESTED AT [address], [address]: Pneumatic Tube Operator/Movie Actor ID = [id number] for IBENEME, EUCHERIA POCT-GLUCOSE [id number] 19:03:00* Test Item Value Reference Range Interpretation Comments POC-GLUCOSE METER (BEAKER) (test code = 1538) 168 mg/dL 70-110 H : TESTED AT [address] [place], [address]: Pneumatic Tube Operator/Movie Actor ID = [id number] for JUAN C LORA Vancomycin level, [id number] 12:55:00* Test Item Value Reference Range Interpretation Comments Vancomycin Tr (test code = 4092-3) 13.7 ug/mL 10-20 ROSALIO (test code = ROSALIO) Pneumatic Tube Operator ID - [id number] C Lab Interpretation (test code = 92620-9) [facility] [id number] 12:55:00* Test Item Value Reference Range Interpretation Comments VANCOMYCIN TROUGH (BEAKER) (test code = 522) 13.7 ug/mL 10.0-20.0 Pneumatic Tube Operator ID - ASHLEY CPOCT-GLUCOSE [id number] 12:40:00* Test Item Value Reference Range Interpretation Comments POC-GLUCOSE METER (BEAKER) (test code = 1538) 140 mg/dL 70-110 H : TESTED AT 06 [address], [address]: Pneumatic Tube Operator/Movie Actor ID = [id number] for JUAN C LORA POCT-GLUCOSE [id number] 06:28:00* Test Item Value Reference Range Interpretation Comments POC-GLUCOSE METER (BEAKER) (test code = 1538) 128 mg/dL 70-110 H : TESTED AT [address], [address]: Pneumatic Tube Operator/Movie Actor ID = [id number] for LAQUITA VILLATORO [id number] 04:25:00* Test Item Value Reference Range Interpretation Comments PHOSPHORUS (BEAKER) (test code = 604) 3.8 mg/dL 2.3-4.7 Pneumatic Tube Operator ID - ELAINE [id number] 04:25:00* Test Item Value Reference Range Interpretation Comments MAGNESIUM (BEAKER) (test code = 627) 2.3 mg/dL 1.6-2.6 Pneumatic Tube Operator ID - ELAINE LBASIC METABOLIC [id number] 04:25:00* Test Item Value Reference Range Interpretation Comments SODIUM (BEAKER) (test code = 381) 143 meq/L 136-145 POTASSIUM (BEAKER) (test code = 379) 4.4 meq/L 3.5-5.1 CHLORIDE (BEAKER) (test code = 382) 106 meq/L 98-107 CO2 (BEAKER) (test code = 355) 32 meq/L 22-29 H BLOOD UREA NITROGEN (BEAKER) (test code = 354) 31 mg/dL 7-21 H CREATININE (BEAKER) (test code = 358) 0.99 mg/dL 0.57-1.25 GLUCOSE RANDOM (BEAKER) (test code = 652) 103 mg/dL 70-105 CALCIUM (BEAKER) (test code = 697) 8.2 mg/dL 8.4-10.2 L EGFR (BEAKER) (test code = 1092) 86 mL/min/1.73 sq m ESTIMATED GFR IS NOT ACCURATE CREATININE CLEARANCE IN PREDICTING GLOMERULAR FILTRATION RATE. ESTIMATED GFR IS NOT APPLICABLE FOR DIALYSIS PATIENTS. Pneumatic Tube Operator ID - PIAYA LCBC W/PLT COUNT & AUTO [id number] 04:06:00* Test Item Value Reference Range Interpretation Comments WHITE BLOOD CELL COUNT (BEAKER) (test code = 775) 4.4 K/ L 3.5- 10.5 RED BLOOD CELL COUNT (BEAKER) (test code = 761) 3.10 M/ L 4.63-6 .08 L HEMOGLOBIN (BEAKER) (test code = 410) 7.7 GM/DL 13.7-17.5 L HEMATOCRIT (BEAKER) (test code = 411) 26.5 % 40.1-51.0 L MEAN CORPUSCULAR VOLUME (BEAKER) (test code = 753) 85.5 fL 79. 0-92.2 MEAN CORPUSCULAR HEMOGLOBIN (BEAKER) (test code = 751) 24.8 pg 25.7-32.2 L MEAN CORPUSCULAR HEMOGLOBIN CONC (BEAKER) (test code = 752) 29.1 GM/DL 32.3-36.5 L RED CELL DISTRIBUTION WIDTH (BEAKER) (test code = 412) 16.9 % 11.6-14.4 H PLATELET COUNT (BEAKER) (test code = 756) 242 K/CU MM 150-450 MEAN PLATELET VOLUME (BEAKER) (test code = 754) 11.6 fL 9.4-12 .4 NUCLEATED RED BLOOD CELLS (BEAKER) (test code = 413) 0 /100 WBC 0 -0 NEUTROPHILS RELATIVE PERCENT (BEAKER) (test code = 429) 68 % LYMPHOCYTES RELATIVE PERCENT (BEAKER) (test code = 430) 22 % MONOCYTES RELATIVE PERCENT (BEAKER) (test code = 431) 9 % EOSINOPHILS RELATIVE PERCENT (BEAKER) (test code = 432) 1 % BASOPHILS RELATIVE PERCENT (BEAKER) (test code = 437) 0 % NEUTROPHILS ABSOLUTE COUNT (BEAKER) (test code = 670) 2.99 K/ L 1.78-5.38 LYMPHOCYTES ABSOLUTE COUNT (BEAKER) (test code = 414) 0.95 K/ L 1.32-3.57 L MONOCYTES ABSOLUTE COUNT (BEAKER) (test code = 415) 0.41 K/ L 0. 30-0.82 EOSINOPHILS ABSOLUTE COUNT (BEAKER) (test code = 416) 0.05 K/ L 0.04-0.54 BASOPHILS ABSOLUTE COUNT (BEAKER) (test code = 417) 0.01 K/ L 0. 01-0.08 IMMATURE GRANULOCYTES-RELATIVE PERCENT (BEAKER) (test code = 2801) 0 % 0-1 RAD, CHEST, 1 VIEW, NON [id number] 02:10:00Reason for exam:->chest tube in placeFINAL REPORT RAD, CHEST, 1 VIEW, NON DEPT INDICATION: chest tube in place COMPARISON: Prior day's exam FINDINGS: Portable frontal view of the chest. IMPRESSION: Support Lines: Stable. Lungs and pleura: Unchanged airspace and pleural opacities. No pneumothorax.Heart and mediastinum: Stable contours. Additional findings: None. Signed: Chad Garcia Verified Date/Time: 05/04/2020 02:10:36 -GLUCOSE METER 2020-05-04 00:31:00* Test Item Value Reference Range Interpretation Comments POC-GLUCOSE METER (BEAKER) (test code = 1538) 134 mg/dL 70-110 H : TESTED AT [address], [address]: Pneumatic Tube Operator/Movie Actor ID = [id number] for HOMERO HENDRICKS POCT-GLUCOSE [id number] 18:38:00* Test Item Value Reference Range Interpretation Comments POC-GLUCOSE METER (BEAKER) (test code = 1538) 153 mg/dL 70-110 H : TESTED AT [address], [address]: Pneumatic Tube Operator/Movie Actor ID = [id number] for JUAN C LORA POCT-GLUCOSE [id number] 13:05:00* Test Item Value Reference Range Interpretation Comments POC-GLUCOSE METER (BEAKER) (test code = 1538) 115 mg/dL 70-110 H : TESTED AT [facility] [address] [facility], [address]: Pneumatic Tube Operator/Movie Actor ID = [id number] for MICHAELKELSIESIMEONBERLIN ESPINOZA [id number] 04:54:00* Test Item Value Reference Range Interpretation Comments PHOSPHORUS (BEAKER) (test code = 604) 3.6 mg/dL 2.3-4.7 Pneumatic Tube Operator ID - LYNN [id number] 04:54:00* Test Item Value Reference Range Interpretation Comments MAGNESIUM (BEAKER) (test code = 627) 2.0 mg/dL 1.6-2.6 Pneumatic Tube Operator ID - LYNN MBASIC METABOLIC [id number] 04:54:00* Test Item Value Reference Range Interpretation Comments SODIUM (BEAKER) (test code = 381) 143 meq/L 136-145 POTASSIUM (BEAKER) (test code = 379) 4.2 meq/L 3.5-5.1 CHLORIDE (BEAKER) (test code = 382) 106 meq/L 98-107 CO2 (BEAKER) (test code = 355) 30 meq/L 22-29 H BLOOD UREA NITROGEN (BEAKER) (test code = 354) 33 mg/dL 7-21 H CREATININE (BEAKER) (test code = 358) 1.00 mg/dL 0.57-1.25 GLUCOSE RANDOM (BEAKER) (test code = 652) 110 mg/dL 70-105 H CALCIUM (BEAKER) (test code = 697) 8.3 mg/dL 8.4-10.2 L EGFR (BEAKER) (test code = 1092) 85 mL/min/1.73 sq m ESTIMATED GFR IS NOT ACCURATE CREATININE CLEARANCE IN PREDICTING GLOMERULAR FILTRATION RATE. ESTIMATED GFR IS NOT APPLICABLE FOR DIALYSIS PATIENTS. Pneumatic Tube Operator ID - LYNN MCBC W/PLT COUNT & AUTO [id number] 04:33:00* Test Item Value Reference Range Interpretation Comments WHITE BLOOD CELL COUNT (BEAKER) (test code = 775) 5.3 K/ L 3.5- 10.5 RED BLOOD CELL COUNT (BEAKER) (test code = 761) 3.02 M/ L 4.63-6 .08 L HEMOGLOBIN (BEAKER) (test code = 410) 7.8 GM/DL 13.7-17.5 L HEMATOCRIT (BEAKER) (test code = 411) 25.7 % 40.1-51.0 L MEAN CORPUSCULAR VOLUME (BEAKER) (test code = 753) 85.1 fL 79. 0-92.2 MEAN CORPUSCULAR HEMOGLOBIN (BEAKER) (test code = 751) 25.8 pg 25.7-32.2 MEAN CORPUSCULAR HEMOGLOBIN CONC (BEAKER) (test code = 752) 30.4 GM/DL 32.3-36.5 L RED CELL DISTRIBUTION WIDTH (BEAKER) (test code = 412) 17.0 % 11.6-14.4 H PLATELET COUNT (BEAKER) (test code = 756) 221 K/CU MM 150-450 MEAN PLATELET VOLUME (BEAKER) (test code = 754) 11.7 fL 9.4-12 .4 NUCLEATED RED BLOOD CELLS (BEAKER) (test code = 413) 0 /100 WBC 0 -0 NEUTROPHILS RELATIVE PERCENT (BEAKER) (test code = 429) 65 % LYMPHOCYTES RELATIVE PERCENT (BEAKER) (test code = 430) 25 % MONOCYTES RELATIVE PERCENT (BEAKER) (test code = 431) 9 % EOSINOPHILS RELATIVE PERCENT (BEAKER) (test code = 432) 1 % BASOPHILS RELATIVE PERCENT (BEAKER) (test code = 437) 0 % NEUTROPHILS ABSOLUTE COUNT (BEAKER) (test code = 670) 3.48 K/ L 1.78-5.38 LYMPHOCYTES ABSOLUTE COUNT (BEAKER) (test code = 414) 1.33 K/ L 1.32-3.57 MONOCYTES ABSOLUTE COUNT (BEAKER) (test code = 415) 0.46 K/ L 0. 30-0.82 EOSINOPHILS ABSOLUTE COUNT (BEAKER) (test code = 416) 0.04 K/ L 0.04-0.54 BASOPHILS ABSOLUTE COUNT (BEAKER) (test code = 417) 0.01 K/ L 0. 01-0.08 IMMATURE GRANULOCYTES-RELATIVE PERCENT (BEAKER) (test code = 2801) 0 % 0-1 RAD, CHEST, 1 VIEW, NON [id number] 02:52:00Reason for exam:->chest tube in placeFINAL REPORT CLINICAL INDICATION: Support lines. Comparison: 05/02/2020 The cardiomediastinal contours are stable. Central pulmonary vascular congestion and right greater than left parenchymal and right pleural opacities are similar to previous. There is no pneumothorax. Support lines are stable. Signed: Sayda Fan MDReport Verified Date/Time: 05/03/2020 02:52:49 -GLUCOSE [id number] 22:55:00* Test Item Value Reference Range Interpretation Comments POC-GLUCOSE METER (BEAKER) (test code = 1538) 158 mg/dL 70-110 H : TESTED AT [address], [address]: Pneumatic Tube Operator/Movie Actor ID = [id number] for PIPPA JUAREZ VANCOMYCIN LEVEL, [id number] 21:24:00* Test Item Value Reference Range Interpretation Comments VANCOMYCIN TROUGH (BEAKER) (test code = 522) 23.4 ug/mL 10.0-20.0 H Pneumatic Tube Operator ID - BSPOCT-GLUCOSE [id number] 18:13:00* Test Item Value Reference Range Interpretation Comments POC-GLUCOSE METER (BEAKER) (test code = 1538) 144 mg/dL 70-110 H : TESTED AT [place] [id number] [facility], [address]: Pneumatic Tube Operator/Movie Actor ID = [id number] for NISTOR, RADHA POCT-GLUCOSE [id number] 13:50:00* Test Item Value Reference Range Interpretation Comments POC-GLUCOSE METER (BEAKER) (test code = 1538) 169 mg/dL 70-110 H : TESTED AT [place] [id number] [facility], [address]: Pneumatic Tube Operator/Movie Actor ID = [id number] for NISTOR, RADHA [id number] 08:35:00* Test Item Value Reference Range Interpretation Comments PARTIAL THROMBOPLASTIN TIME (BEAKER) (test code = 760) 66.0 seconds 22.5-36.0 H BLOOD GAS, [id number] 08:04:00* Test Item Value Reference Range Interpretation Comments PH ARTERIAL (BEAKER) (test code = 383) 7.44 7.35-7.45 PCO2 ARTERIAL (BEAKER) (test code = 384) 46 mmHg 35-45 H PO2 ARTERIAL (BEAKER) (test code = 385) 162 mmHg 80-90 H O2 SATURATION ARTERIAL (BEAKER) (test code = 386) 99.1 % 96.0 -97.0 H HCO3 ARTERIAL (BEAKER) (test code = 388) 31 mmol/L 21-29 H BASE EXCESS ARTERIAL (BEAKER) (test code = 387) 6.3 mmol/L -2.0-3 .0 H PATIENT TEMPERATURE (BEAKER) (test code = 1818) 37.1 C FIO2 (BEAKER) (test code = 1819) 40.0 % ABORH, [id number] 07:32:00* Test Item Value Reference Range Interpretation Comments ABO Grouping (test code = 2588) A Rh Factor (test code = 2589) [facility] [id number] 05:43:00* Test Item Value Reference Range Interpretation Comments PH ARTERIAL (BEAKER) (test code = 383) 7.45 7.35-7.45 PCO2 ARTERIAL (BEAKER) (test code = 384) 47 mmHg 35-45 H PO2 ARTERIAL (BEAKER) (test code = 385) 165 mmHg 80-90 H O2 SATURATION ARTERIAL (BEAKER) (test code = 386) 99.1 % 96.0 -97.0 H HCO3 ARTERIAL (BEAKER) (test code = 388) 32 mmol/L 21-29 H BASE EXCESS ARTERIAL (BEAKER) (test code = 387) 7.3 mmol/L -2.0-3 .0 H PATIENT TEMPERATURE (BEAKER) (test code = 1818) 38.0 C FIO2 (BEAKER) (test code = 1819) 40.0 % [id number] 05:24:00* Test Item Value Reference Range Interpretation Comments PHOSPHORUS (BEAKER) (test code = 604) 3.7 mg/dL 2.3-4.7 Pneumatic Tube Operator ID - LYNN [id number] 05:24:00* Test Item Value Reference Range Interpretation Comments MAGNESIUM (BEAKER) (test code = 627) 2.1 mg/dL 1.6-2.6 Pneumatic Tube Operator ID - LYNN MBASIC METABOLIC [id number] 05:24:00* Test Item Value Reference Range Interpretation Comments SODIUM (BEAKER) (test code = 381) 139 meq/L 136-145 POTASSIUM (BEAKER) (test code = 379) 4.6 meq/L 3.5-5.1 CHLORIDE (BEAKER) (test code = 382) 104 meq/L 98-107 CO2 (BEAKER) (test code = 355) 28 meq/L 22-29 BLOOD UREA NITROGEN (BEAKER) (test code = 354) 33 mg/dL 7-21 H CREATININE (BEAKER) (test code = 358) 1.03 mg/dL 0.57-1.25 GLUCOSE RANDOM (BEAKER) (test code = 652) 196 mg/dL 70-105 H CALCIUM (BEAKER) (test code = 697) 8.0 mg/dL 8.4-10.2 L EGFR (BEAKER) (test code = 1092) 82 mL/min/1.73 sq m ESTIMATED GFR IS NOT ACCURATE CREATININE CLEARANCE IN PREDICTING GLOMERULAR FILTRATION RATE. ESTIMATED GFR IS NOT APPLICABLE FOR DIALYSIS PATIENTS. Pneumatic Tube Operator ID - LYNN MCBC W/PLT COUNT & AUTO [id number] 05:06:00* Test Item Value Reference Range Interpretation Comments WHITE BLOOD CELL COUNT (BEAKER) (test code = 775) 6.2 K/ L 3.5- 10.5 RED BLOOD CELL COUNT (BEAKER) (test code = 761) 2.74 M/ L 4.63-6 .08 L HEMOGLOBIN (BEAKER) (test code = 410) 6.9 GM/DL 13.7-17.5 L HEMATOCRIT (BEAKER) (test code = 411) 23.4 % 40.1-51.0 L MEAN CORPUSCULAR VOLUME (BEAKER) (test code = 753) 85.4 fL 79. 0-92.2 MEAN CORPUSCULAR HEMOGLOBIN (BEAKER) (test code = 751) 25.2 pg 25.7-32.2 L MEAN CORPUSCULAR HEMOGLOBIN CONC (BEAKER) (test code = 752) 29.5 GM/DL 32.3-36.5 L RED CELL DISTRIBUTION WIDTH (BEAKER) (test code = 412) 17.5 % 11.6-14.4 H PLATELET COUNT (BEAKER) (test code = 756) 207 K/CU MM 150-450 MEAN PLATELET VOLUME (BEAKER) (test code = 754) 12.2 fL 9.4-12 .4 NUCLEATED RED BLOOD CELLS (BEAKER) (test code = 413) 0 /100 WBC 0 -0 NEUTROPHILS RELATIVE PERCENT (BEAKER) (test code = 429) 74 % LYMPHOCYTES RELATIVE PERCENT (BEAKER) (test code = 430) 18 % MONOCYTES RELATIVE PERCENT (BEAKER) (test code = 431) 8 % EOSINOPHILS RELATIVE PERCENT (BEAKER) (test code = 432) 1 % BASOPHILS RELATIVE PERCENT (BEAKER) (test code = 437) 0 % NEUTROPHILS ABSOLUTE COUNT (BEAKER) (test code = 670) 4.60 K/ L 1.78-5.38 LYMPHOCYTES ABSOLUTE COUNT (BEAKER) (test code = 414) 1.10 K/ L 1.32-3.57 L MONOCYTES ABSOLUTE COUNT (BEAKER) (test code = 415) 0.47 K/ L 0. 30-0.82 EOSINOPHILS ABSOLUTE COUNT (BEAKER) (test code = 416) 0.03 K/ L 0.04-0.54 L BASOPHILS ABSOLUTE COUNT (BEAKER) (test code = 417) 0.01 K/ L 0. 01-0.08 IMMATURE GRANULOCYTES-RELATIVE PERCENT (BEAKER) (test code = 2801) 1 % 0-1 RAD, CHEST, 1 VIEW, NON [id number] 02:14:00Reason for exam:->chest tube in placeFINAL REPORT CLINICAL INDICATION: Support lines. Comparison: 05/01/2020 The cardiomediastinal contours are stable. Central pulmonary vascular congestion and bilateral parenchymal and right pleural opacities are unchanged. There is no pneumothorax. Support lines are stable. Signed: Sayda Fan MDReport Verified Date/Time: 05/02/2020 02:14:00 2020-05-02 00:45:00* Test Item Value Reference Range Interpretation Comments PARTIAL THROMBOPLASTIN TIME (BEAKER) (test code = 760) 43.0 seconds 22.5-36.0 H POCT-GLUCOSE [id number] 00:35:00* Test Item Value Reference Range Interpretation Comments POC-GLUCOSE METER (BEAKER) (test code = 1538) 142 mg/dL 70-110 H : TESTED AT [place] [id number] [facility], [address]: Pneumatic Tube Operator/Movie Actor ID = [id number] for PIPPA JUAREZ [id number] 18:18:00* Test Item Value Reference Range Interpretation Comments PARTIAL THROMBOPLASTIN TIME (BEAKER) (test code = 760) 89.0 seconds 22.5-36.0 H POCT-GLUCOSE [id number] 17:33:00* Test Item Value Reference Range Interpretation Comments POC-GLUCOSE METER (BEAKER) (test code = 1538) 125 mg/dL 70-110 H : TESTED AT [address], [address]: Pneumatic Tube Operator/Movie Actor ID = [id number] for REVA SMITHA POCT-GLUCOSE [id number] 15:32:00* Test Item Value Reference Range Interpretation Comments POC-GLUCOSE METER (BEAKER) (test code = 1538) 135 mg/dL 70-110 H : TESTED AT [address], [address]: Pneumatic Tube Operator/Movie Actor ID = [id number] for RADHA SMITH [id number] 12:53:00* Test Item Value Reference Range Interpretation Comments PARTIAL THROMBOPLASTIN TIME (BEAKER) (test code = 760) 68.8 seconds 22.5-36.0 H Virus culture Expected virus: [id number] 08:21:00* Test Item Value Reference Range Interpretation Comments Result (test code = 6463-4) No virus isolated Lab Interpretation (test code = 94856-6) [facility] [id number] 08:21:00* Test Item Value Reference Range Interpretation Comments CULTURE (BEAKER) (test code = 1095) No virus isolated [id number] 06:28:00* Test Item Value Reference Range Interpretation Comments PARTIAL THROMBOPLASTIN TIME (BEAKER) (test code = 760) 84.5 seconds 22.5-36.0 H POCT-GLUCOSE [id number] 06:21:00* Test Item Value Reference Range Interpretation Comments POC-GLUCOSE METER (BEAKER) (test code = 1538) 174 mg/dL 70-110 H : TESTED AT [address], [address]: Pneumatic Tube Operator/Movie Actor ID = [id number] for ANN MARIE RIVERO [id number] 04:29:00* Test Item Value Reference Range Interpretation Comments PHOSPHORUS (BEAKER) (test code = 604) 3.4 mg/dL 2.3-4.7 Pneumatic Tube Operator ID - LYNN [id number] 04:29:00* Test Item Value Reference Range Interpretation Comments MAGNESIUM (BEAKER) (test code = 627) 1.8 mg/dL 1.6-2.6 Pneumatic Tube Operator ID - LYNN MBASIC METABOLIC [id number] 04:29:00* Test Item Value Reference Range Interpretation Comments SODIUM (BEAKER) (test code = 381) 138 meq/L 136-145 POTASSIUM (BEAKER) (test code = 379) 4.6 meq/L 3.5-5.1 CHLORIDE (BEAKER) (test code = 382) 103 meq/L 98-107 CO2 (BEAKER) (test code = 355) 30 meq/L 22-29 H BLOOD UREA NITROGEN (BEAKER) (test code = 354) 27 mg/dL 7-21 H CREATININE (BEAKER) (test code = 358) 0.91 mg/dL 0.57-1.25 GLUCOSE RANDOM (BEAKER) (test code = 652) 211 mg/dL 70-105 H CALCIUM (BEAKER) (test code = 697) 8.3 mg/dL 8.4-10.2 L EGFR (BEAKER) (test code = 1092) 95 mL/min/1.73 sq m ESTIMATED GFR IS NOT ACCURATE CREATININE CLEARANCE IN PREDICTING GLOMERULAR FILTRATION RATE. ESTIMATED GFR IS NOT APPLICABLE FOR DIALYSIS PATIENTS. Pneumatic Tube Operator ID - LYNN MBLOOD GAS, [id number] 04:10:00* Test Item Value Reference Range Interpretation Comments PH ARTERIAL (BEAKER) (test code = 383) 7.40 7.35-7.45 PCO2 ARTERIAL (BEAKER) (test code = 384) 55 mmHg 35-45 H PO2 ARTERIAL (BEAKER) (test code = 385) 163 mmHg 80-90 H O2 SATURATION ARTERIAL (BEAKER) (test code = 386) 99.0 % 96.0 -97.0 H HCO3 ARTERIAL (BEAKER) (test code = 388) 32 mmol/L 21-29 H BASE EXCESS ARTERIAL (BEAKER) (test code = 387) 6.9 mmol/L -2.0-3 .0 H PATIENT TEMPERATURE (BEAKER) (test code = 1818) 38.5 C FIO2 (BEAKER) (test code = 1819) 40.0 % CBC W/PLT COUNT & AUTO [id number] 04:09:00* Test Item Value Reference Range Interpretation Comments WHITE BLOOD CELL COUNT (BEAKER) (test code = 775) 8.6 K/ L 3.5- 10.5 RED BLOOD CELL COUNT (BEAKER) (test code = 761) 2.93 M/ L 4.63-6 .08 L HEMOGLOBIN (BEAKER) (test code = 410) 7.5 GM/DL 13.7-17.5 L HEMATOCRIT (BEAKER) (test code = 411) 25.1 % 40.1-51.0 L MEAN CORPUSCULAR VOLUME (BEAKER) (test code = 753) 85.7 fL 79. 0-92.2 MEAN CORPUSCULAR HEMOGLOBIN (BEAKER) (test code = 751) 25.6 pg 25.7-32.2 L MEAN CORPUSCULAR HEMOGLOBIN CONC (BEAKER) (test code = 752) 29.9 GM/DL 32.3-36.5 L RED CELL DISTRIBUTION WIDTH (BEAKER) (test code = 412) 17.2 % 11.6-14.4 H PLATELET COUNT (BEAKER) (test code = 756) 196 K/CU MM 150-450 MEAN PLATELET VOLUME (BEAKER) (test code = 754) 12.4 fL 9.4-12 .4 NUCLEATED RED BLOOD CELLS (BEAKER) (test code = 413) 0 /100 WBC 0 -0 NEUTROPHILS RELATIVE PERCENT (BEAKER) (test code = 429) 75 % LYMPHOCYTES RELATIVE PERCENT (BEAKER) (test code = 430) 14 % MONOCYTES RELATIVE PERCENT (BEAKER) (test code = 431) 9 % EOSINOPHILS RELATIVE PERCENT (BEAKER) (test code = 432) 1 % BASOPHILS RELATIVE PERCENT (BEAKER) (test code = 437) 0 % NEUTROPHILS ABSOLUTE COUNT (BEAKER) (test code = 670) 6.40 K/ L 1.78-5.38 H LYMPHOCYTES ABSOLUTE COUNT (BEAKER) (test code = 414) 1.16 K/ L 1.32-3.57 L MONOCYTES ABSOLUTE COUNT (BEAKER) (test code = 415) 0.81 K/ L 0. 30-0.82 EOSINOPHILS ABSOLUTE COUNT (BEAKER) (test code = 416) 0.04 K/ L 0.04-0.54 BASOPHILS ABSOLUTE COUNT (BEAKER) (test code = 417) 0.01 K/ L 0. 01-0.08 IMMATURE GRANULOCYTES-RELATIVE PERCENT (BEAKER) (test code = 2801) 2 % 0-1 H RAD, CHEST, 1 VIEW, NON [id number] 03:10:00Reason for exam:->s/p RIGHT decorticationShould this be performed at the bedside?->YesFINAL REPORT RAD, CHEST, 1 VIEW, NON DEPT INDICATION: s/p RIGHT decortication COMPARISON: Prior day's exam FINDINGS: Portable frontal view of the chest. IMPRESSION: Support Lines: Stable tracheostomy cannula and left PICC Lungs and pleura: Right greater than left patchy parenchymal opacities and pleural effusions are unchanged. No pneumothorax.Heart and mediastinum: Stable contours. Additional findings: None. Signed: [facility] Verified Date/Time: 05/01/2020 03:10:01 -GLUCOSE [id number] 00:11:00* Test Item Value Reference Range Interpretation Comments POC-GLUCOSE METER (BEAKER) (test code = 1538) 258 mg/dL 70-110 H : TESTED AT [place] [id number] [facility], [address]: Pneumatic Tube Operator/Movie Actor ID = [id number] for ALBERTA BOAZ [id number] 23:12:00* Test Item Value Reference Range Interpretation Comments PARTIAL THROMBOPLASTIN TIME (BEAKER) (test code = 760) 68.6 seconds 22.5-36.0 H POCT-GLUCOSE [id number] 18:00:00* Test Item Value Reference Range Interpretation Comments POC-GLUCOSE METER (BEAKER) (test code = 1538) 288 mg/dL 70-110 H : TESTED AT [facility] [address] [facility], [address]: Pneumatic Tube Operator/Movie Actor ID = [id number] for REVA SMITHA [id number] 17:31:00* Test Item Value Reference Range Interpretation Comments POTASSIUM (BEAKER) (test code = 379) 4.9 meq/L 3.5-5.1 Specimen moderately hemolyzed Pneumatic Tube Operator ID - LYNN [id number] 17:24:00* Test Item Value Reference Range Interpretation Comments PARTIAL THROMBOPLASTIN TIME (BEAKER) (test code = 760) 73.6 seconds 22.5-36.0 H Anaerobic [id number] 16:08:00* Test Item Value Reference Range Interpretation Comments Result (test code = 6463-4) No anaerobes isolated [facility] [id number] 16:08:00* Test Item Value Reference Range Interpretation Comments CULTURE (BEAKER) (test code = 1095) No anaerobes isolated POCT-GLUCOSE [id number] 12:03:00* Test Item Value Reference Range Interpretation Comments POC-GLUCOSE METER (BEAKER) (test code = 1538) 315 mg/dL 70-110 H : TESTED AT [address], [address]: Pneumatic Tube Operator/Movie Actor ID = [id number] for JUAN C LORA [id number] 10:43:00* Test Item Value Reference Range Interpretation Comments PARTIAL THROMBOPLASTIN TIME (BEAKER) (test code = 760) 98.0 seconds 22.5-36.0 H URINALYSIS W/ REFLEX URINE [id number] 09:34:00* Test Item Value Reference Range Interpretation Comments COLOR (BEAKER) (test code = 470) Yellow CLARITY (BEAKER) (test code = 469) Hazy SPECIFIC GRAVITY UA (BEAKER) (test code = 468) 1.017 1.001-1 .035 PH UA (BEAKER) (test code = 467) 5.5 5.0-8.0 PROTEIN UA (BEAKER) (test code = 464) 70 mg/dL Negative A GLUCOSE UA (BEAKER) (test code = 365) 500 mg/dL Negative A KETONES UA (BEAKER) (test code = 371) Negative Negative BILIRUBIN UA (BEAKER) (test code = 462) Negative Negative BLOOD UA (BEAKER) (test code = 461) Trace Negative A NITRITE UA (BEAKER) (test code = 465) Negative Negative LEUKOCYTE ESTERASE UA (BEAKER) (test code = 466) Negative Negat chris UROBILINOGEN UA (BEAKER) (test code = 463) 3.0 mg/dL 0.2-1.0 H RBC UA (BEAKER) (test code = 519) 3 /HPF WBC UA (BEAKER) (test code = 520) 0 /HPF MUCUS (BEAKER) (test code = 1574) Rare SQUAMOUS EPITHELIAL (BEAKER) (test code = 516) < /HPF GRANULAR CASTS (BEAKER) (test code = 515) 46 /LPF CASTS (BEAKER) (test code = 1579) 1 /LPF AMORPHOUS CRYSTALS (BEAKER) (test code = 1584) Rare SOURCE(BEAKER) (test code = 2795) Pneumatic Tube Operator ID - [auto]Pneumatic Tube Operator ID - techPOCT-GLUCOSE [id number] 06:11:00* Test Item Value Reference Range Interpretation Comments POC-GLUCOSE METER (BEAKER) (test code = 1538) 282 mg/dL 70-110 H : TESTED AT [address], [address]: Pneumatic Tube Operator/Movie Actor ID = [id number] for Priya Rodriguez [id number] 04:08:00* Test Item Value Reference Range Interpretation Comments PHOSPHORUS (BEAKER) (test code = 604) 3.6 mg/dL 2.3-4.7 Pneumatic Tube Operator ID - LYNN [id number] 04:08:00* Test Item Value Reference Range Interpretation Comments MAGNESIUM (BEAKER) (test code = 627) 1.7 mg/dL 1.6-2.6 Pneumatic Tube Operator ID - LYNN MBASIC METABOLIC [id number] 04:08:00* Test Item Value Reference Range Interpretation Comments SODIUM (BEAKER) (test code = 381) 139 meq/L 136-145 POTASSIUM (BEAKER) (test code = 379) 5.0 meq/L 3.5-5.1 CHLORIDE (BEAKER) (test code = 382) 105 meq/L 98-107 CO2 (BEAKER) (test code = 355) 30 meq/L 22-29 H BLOOD UREA NITROGEN (BEAKER) (test code = 354) 26 mg/dL 7-21 H CREATININE (BEAKER) (test code = 358) 0.95 mg/dL 0.57-1.25 GLUCOSE RANDOM (BEAKER) (test code = 652) 302 mg/dL 70-105 H CALCIUM (BEAKER) (test code = 697) 8.1 mg/dL 8.4-10.2 L EGFR (BEAKER) (test code = 1092) 90 mL/min/1.73 sq m ESTIMATED GFR IS NOT ACCURATE CREATININE CLEARANCE IN PREDICTING GLOMERULAR FILTRATION RATE. ESTIMATED GFR IS NOT APPLICABLE FOR DIALYSIS PATIENTS. Pneumatic Tube Operator ID - LYNN [id number] 04:05:00* Test Item Value Reference Range Interpretation Comments PARTIAL THROMBOPLASTIN TIME (BEAKER) (test code = 760) 77.3 seconds 22.5-36.0 H CBC W/PLT COUNT & AUTO [id number] 03:58:00* Test Item Value Reference Range Interpretation Comments WHITE BLOOD CELL COUNT (BEAKER) (test code = 775) 12.8 K/ L 3.5- 10.5 H RED BLOOD CELL COUNT (BEAKER) (test code = 761) 3.16 M/ L 4.63-6 .08 L HEMOGLOBIN (BEAKER) (test code = 410) 8.1 GM/DL 13.7-17.5 L HEMATOCRIT (BEAKER) (test code = 411) 26.4 % 40.1-51.0 L MEAN CORPUSCULAR VOLUME (BEAKER) (test code = 753) 83.5 fL 79. 0-92.2 MEAN CORPUSCULAR HEMOGLOBIN (BEAKER) (test code = 751) 25.6 pg 25.7-32.2 L MEAN CORPUSCULAR HEMOGLOBIN CONC (BEAKER) (test code = 752) 30.7 GM/DL 32.3-36.5 L RED CELL DISTRIBUTION WIDTH (BEAKER) (test code = 412) 17.1 % 11.6-14.4 H PLATELET COUNT (BEAKER) (test code = 756) 202 K/CU MM 150-450 MEAN PLATELET VOLUME (BEAKER) (test code = 754) 12.0 fL 9.4-12 .4 NUCLEATED RED BLOOD CELLS (BEAKER) (test code = 413) 0 /100 WBC 0 -0 NEUTROPHILS RELATIVE PERCENT (BEAKER) (test code = 429) 75 % LYMPHOCYTES RELATIVE PERCENT (BEAKER) (test code = 430) 13 % MONOCYTES RELATIVE PERCENT (BEAKER) (test code = 431) 11 % EOSINOPHILS RELATIVE PERCENT (BEAKER) (test code = 432) 0 % BASOPHILS RELATIVE PERCENT (BEAKER) (test code = 437) 0 % NEUTROPHILS ABSOLUTE COUNT (BEAKER) (test code = 670) 9.58 K/ L 1.78-5.38 H LYMPHOCYTES ABSOLUTE COUNT (BEAKER) (test code = 414) 1.67 K/ L 1.32-3.57 MONOCYTES ABSOLUTE COUNT (BEAKER) (test code = 415) 1.38 K/ L 0. 30-0.82 H EOSINOPHILS ABSOLUTE COUNT (BEAKER) (test code = 416) 0.01 K/ L 0.04-0.54 L BASOPHILS ABSOLUTE COUNT (BEAKER) (test code = 417) 0.02 K/ L 0. 01-0.08 IMMATURE GRANULOCYTES-RELATIVE PERCENT (BEAKER) (test code = 2801) 1 % 0-1 RAD, CHEST, 1 VIEW, NON [id number] 03:25:00Reason for exam:->chest tube in placeFINAL REPORT CLINICAL INDICATION: Support lines. Comparison: 04/29/2020 1810 hours The cardiomediastinal contours are stable. The lung volumes remain low. Central pulmonary vascular congestion and right greater than left parenchymal and pleural opacities are unchanged. There is no pneumothorax. Support lines are stable. Signed: Sayda Fan MDReport Verified Date/Time: 04/30/2020 03:25:54 D GAS, [id number] 03:23:00* Test Item Value Reference Range Interpretation Comments PH ARTERIAL (BEAKER) (test code = 383) 7.44 7.35-7.45 PCO2 ARTERIAL (BEAKER) (test code = 384) 48 mmHg 35-45 H PO2 ARTERIAL (BEAKER) (test code = 385) 200 mmHg 80-90 H O2 SATURATION ARTERIAL (BEAKER) (test code = 386) 99.4 % 96.0 -97.0 H HCO3 ARTERIAL (BEAKER) (test code = 388) 32 mmol/L 21-29 H BASE EXCESS ARTERIAL (BEAKER) (test code = 387) 6.7 mmol/L -2.0-3 .0 H PATIENT TEMPERATURE (BEAKER) (test code = 1818) 37.6 C FIO2 (BEAKER) (test code = 1819) 80.0 % POCT-GLUCOSE [id number] 00:25:00* Test Item Value Reference Range Interpretation Comments POC-GLUCOSE METER (BEAKER) (test code = 1538) 254 mg/dL 70-110 H : TESTED AT [facility] [address], [address]: Pneumatic Tube Operator/Movie Actor ID = [id number] for MADISYN MARTINEZ [id number] 19:47:00* Test Item Value Reference Range Interpretation Comments POTASSIUM (BEAKER) (test code = 379) 5.5 meq/L 3.5-5.1 H Pneumatic Tube Operator ID - [id number] 19:46:00* Test Item Value Reference Range Interpretation Comments PARTIAL THROMBOPLASTIN TIME (BEAKER) (test code = 760) 51.9 seconds 22.5-36.0 H RAD, CHEST, 1 VIEW, NON [id number] 18:45:00Reason for exam:->Shortness of breathShould this be performed at the bedside?->YesFINAL REPORT RAD, CHEST, 1 VIEW, NON DEPT INDICATION: Shortness of breath COMPARISON: Exam from six hours prior FINDINGS: Portable frontal view of the chest. IMPRESSION: Support Lines: Stable left PICC and tracheostomy cannula. Lungs and pleura: Bilateral airspace and pleural opacities are not significantly changed. No pneumothorax.Heart and mediastinum: Stable contours. Additional findings: None. Signed: Yue Parker [facility] Verified Date/Time: 04/29/2020 18:45:00 -GLUCOSE [id number] 17:41:00* Test Item Value Reference Range Interpretation Comments POC-GLUCOSE METER (BEAKER) (test code = 1538) 178 mg/dL 70-110 H : TESTED AT [facility] [address], [address]: Pneumatic Tube Operator/Movie Actor ID = [id number] for RADHA SMITH POCT-GLUCOSE [id number] 17:37:00* Test Item Value Reference Range Interpretation Comments POC-GLUCOSE METER (BEAKER) (test code = 1538) 244 mg/dL 70-110 H : TESTED AT [facility] [address], [address]: Pneumatic Tube Operator/Movie Actor ID = [id number] for RADHA SMITH [id number] 15:37:00* Test Item Value Reference Range Interpretation Comments POTASSIUM (BEAKER) (test code = 379) 5.4 meq/L 3.5-5.1 H Pneumatic Tube Operator ID - ASHLEY [id number] 13:49:00* Test Item Value Reference Range Interpretation Comments POTASSIUM (BEAKER) (test code = 379) 5.9 meq/L 3.5-5.1 H Specimen slightly hemolyzed Pneumatic Tube Operator ID - REGINAPOCT-GLUCOSE [id number] 12:42:00* Test Item Value Reference Range Interpretation Comments POC-GLUCOSE METER (TITA) (test code = 1538) 207 mg/dL 70-110 H : TESTED AT [facility] [address], [address]: Pneumatic Tube Operator/Movie Actor ID = [id number] for RADHA SMITH RAD, CHEST, 1 VIEW, NON [id number] 11:56:00Reason for exam:->chest tube removalShould this be performed at the bedside?->YesFINAL REPORT Chest, one view HISTORY: Chest tube removal Comparison: Earlier study of same date Findings: Interval removal of previous right chest tube. No pneumothorax is apparent. Otherwise, no significant interval change. IMPRESSION: Interval removal of previous right chest tube. Otherwise, no significant interval change. Signed: Chance Gauthier [facility] Verified Date/Time: 04/29/2020 11:56:41 Reading Location: [facility] [id number] Ortho Consult Reading Room 2020-04-29 10:09:00* Test Item Value Reference Range Interpretation Comments PARTIAL THROMBOPLASTIN TIME (BEAKER) (test code = 760) 76.6 seconds 22.5-36.0 H [id number] 08:39:00* Test Item Value Reference Range Interpretation Comments Glucose (test code = 2345-7) 216 mg/dL 70-105 H ROSALIO (test code = ROSALIO) Pneumatic Tube Operator ID - AAHAMID Lab Interpretation (test code = 69863-8) [facility]:39[facility]* Test Item Value Reference Range Interpretation Comments POTASSIUM (BEAKER) (test code = 379) 5.7 meq/L 3.5-5.1 H Pneumatic Tube Operator ID - [id number] 08:39:00* Test Item Value Reference Range Interpretation Comments GLUCOSE RANDOM (BEAKER) (test code = 652) 216 mg/dL 70-105 H Pneumatic Tube Operator ID - AAHAMIDPOCT-GLUCOSE [id number] 06:57:00* Test Item Value Reference Range Interpretation Comments POC-GLUCOSE METER (BEAKER) (test code = 1538) 174 mg/dL 70-110 H : TESTED AT [address], [address]: Pneumatic Tube Operator/Movie Actor ID = [id number] for Priya Rodriguez [id number] 06:18:00* Test Item Value Reference Range Interpretation Comments PARTIAL THROMBOPLASTIN TIME (BEAKER) (test code = 760) 77.3 seconds 22.5-36.0 H BLOOD GAS, [id number] 05:06:00* Test Item Value Reference Range Interpretation Comments PH ARTERIAL (BEAKER) (test code = 383) 7.41 7.35-7.45 PCO2 ARTERIAL (BEAKER) (test code = 384) 45 mmHg 35-45 PO2 ARTERIAL (BEAKER) (test code = 385) 124 mmHg 80-90 H O2 SATURATION ARTERIAL (BEAKER) (test code = 386) 98.3 % 96.0 -97.0 H HCO3 ARTERIAL (BEAKER) (test code = 388) 28 mmol/L 21-29 BASE EXCESS ARTERIAL (BEAKER) (test code = 387) 2.8 mmol/L -2.0-3 .0 PATIENT TEMPERATURE (BEAKER) (test code = 1818) 38.0 C FIO2 (BEAKER) (test code = 1819) 90.0 % [id number] 04:44:00* Test Item Value Reference Range Interpretation Comments PHOSPHORUS (BEAKER) (test code = 604) 3.0 mg/dL 2.3-4.7 Pneumatic Tube Operator ID - RUEL [id number] 04:44:00* Test Item Value Reference Range Interpretation Comments MAGNESIUM (BEAKER) (test code = 627) 1.8 mg/dL 1.6-2.6 Pneumatic Tube Operator ID - RUEL WBASIC METABOLIC [id number] 04:44:00* Test Item Value Reference Range Interpretation Comments SODIUM (BEAKER) (test code = 381) 138 meq/L 136-145 POTASSIUM (BEAKER) (test code = 379) 5.8 meq/L 3.5-5.1 H CHLORIDE (BEAKER) (test code = 382) 108 meq/L 98-107 H CO2 (BEAKER) (test code = 355) 26 meq/L 22-29 BLOOD UREA NITROGEN (BEAKER) (test code = 354) 29 mg/dL 7-21 H CREATININE (BEAKER) (test code = 358) 0.85 mg/dL 0.57-1.25 GLUCOSE RANDOM (BEAKER) (test code = 652) 208 mg/dL 70-105 H CALCIUM (BEAKER) (test code = 697) 8.1 mg/dL 8.4-10.2 L EGFR (BEAKER) (test code = 1092) 103 mL/min/1.73 sq m ESTIMATED GFR IS NOT ACCURATE CREATININE CLEARANCE IN PREDICTING GLOMERULAR FILTRATION RATE. ESTIMATED GFR IS NOT APPLICABLE FOR DIALYSIS PATIENTS. Pneumatic Tube Operator ID - RUEL WRAD, CHEST, 1 VIEW, NON [id number] 04:27:00Reason for exam:->s/p RIGHT decorticationShould this be performed at the bedside?->YesFINAL REPORT RAD, CHEST, 1 VIEW, NON DEPT INDICATION: s/p RIGHT decortication COMPARISON: Exam from 18 hours prior FINDINGS: Portable fro ntal view of the chest. IMPRESSION: Support Lines: Stable support apparatus.L ungs and pleura: Right greater than left parenchymal opacities and pleural effus ions are not significantly changed. No discernible pneumothorax.Heart and medias tinum: Stable contours. Additional findings: None. Signed: Yue Parkereped Verified Date/Time: 04/29/2020 04:27:44 W/PLT COUNT & AUTO DIFFERENTIAL 2020-04-29 04:06:00* Test Item Value Reference Range Interpretation Comments WHITE BLOOD CELL COUNT (BEAKER) (test code = 775) 7.7 K/ L 3.5- 10.5 RED BLOOD CELL COUNT (BEAKER) (test code = 761) 3.16 M/ L 4.63-6 .08 L HEMOGLOBIN (BEAKER) (test code = 410) 8.0 GM/DL 13.7-17.5 L HEMATOCRIT (BEAKER) (test code = 411) 26.3 % 40.1-51.0 L MEAN CORPUSCULAR VOLUME (BEAKER) (test code = 753) 83.2 fL 79. 0-92.2 MEAN CORPUSCULAR HEMOGLOBIN (BEAKER) (test code = 751) 25.3 pg 25.7-32.2 L MEAN CORPUSCULAR HEMOGLOBIN CONC (BEAKER) (test code = 752) 30.4 GM/DL 32.3-36.5 L RED CELL DISTRIBUTION WIDTH (BEAKER) (test code = 412) 17.2 % 11.6-14.4 H PLATELET COUNT (BEAKER) (test code = 756) 213 K/CU MM 150-450 MEAN PLATELET VOLUME (BEAKER) (test code = 754) 11.4 fL 9.4-12 .4 NUCLEATED RED BLOOD CELLS (BEAKER) (test code = 413) 0 /100 WBC 0 -0 NEUTROPHILS RELATIVE PERCENT (BEAKER) (test code = 429) 68 % LYMPHOCYTES RELATIVE PERCENT (BEAKER) (test code = 430) 20 % MONOCYTES RELATIVE PERCENT (BEAKER) (test code = 431) 11 % EOSINOPHILS RELATIVE PERCENT (BEAKER) (test code = 432) 1 % BASOPHILS RELATIVE PERCENT (BEAKER) (test code = 437) 0 % NEUTROPHILS ABSOLUTE COUNT (BEAKER) (test code = 670) 5.19 K/ L 1.78-5.38 LYMPHOCYTES ABSOLUTE COUNT (BEAKER) (test code = 414) 1.54 K/ L 1.32-3.57 MONOCYTES ABSOLUTE COUNT (BEAKER) (test code = 415) 0.82 K/ L 0. 30-0.82 EOSINOPHILS ABSOLUTE COUNT (BEAKER) (test code = 416) 0.10 K/ L 0.04-0.54 BASOPHILS ABSOLUTE COUNT (BEAKER) (test code = 417) 0.01 K/ L 0. 01-0.08 IMMATURE GRANULOCYTES-RELATIVE PERCENT (BEAKER) (test code = 2801) 0 % 0-1 POCT-GLUCOSE [id number] 01:42:00* Test Item Value Reference Range Interpretation Comments POC-GLUCOSE METER (BEAKER) (test code = 1538) 182 mg/dL 70-110 H : TESTED AT [place] [id number], [address]: Pneumatic Tube Operator/Movie Actor ID = [id number] for Priya Rodriguez [id number] 22:25:00* Test Item Value Reference Range Interpretation Comments PARTIAL THROMBOPLASTIN TIME (BEAKER) (test code = 760) 62.0 seconds 22.5-36.0 H POCT-GLUCOSE [id number] 20:39:00* Test Item Value Reference Range Interpretation Comments POC-GLUCOSE METER (BEAKER) (test code = 1538) 164 mg/dL 70-110 H : TESTED AT [address], [address]: Pneumatic Tube Operator/Movie Actor ID = [id number] for Priya Rodriguez POCT-GLUCOSE [id number] 19:05:00* Test Item Value Reference Range Interpretation Comments POC-GLUCOSE METER (BEAKER) (test code = 1538) 156 mg/dL 70-110 H : TESTED AT [address], [address]: Pneumatic Tube Operator/Movie Actor ID = [id number] for PETER BALDERRAMA [id number] 13:20:00* Test Item Value Reference Range Interpretation Comments PARTIAL THROMBOPLASTIN TIME (BEAKER) (test code = 760) 66.8 seconds 22.5-36.0 H HEMOGLOBIN AND [id number] 13:08:00* Test Item Value Reference Range Interpretation Comments HEMOGLOBIN (BEAKER) (test code = 410) 7.9 GM/DL 13.7-17.5 L HEMATOCRIT (BEAKER) (test code = 411) 25.9 % 40.1-51.0 L Pneumatic Tube Operator ID - [id number], CHEST, 1 VIEW, NON [id number] 10:46:00Reason for exam:->water sealShould this be performed at the bedside?->YesFINAL REPORT RAD, CHEST, 1 VIEW, NON DEPT INDICATION: water seal COMPARISON: Earlier same date FINDINGS: Portable frontal view of the chest. IMPRESSION: Support Lines: Stable. Lungs and pleura: Unchanged airspace and pleural opacities, right greater than left. Small right lateral pneumothorax is unchanged and slightly more apparent on current exam.Heart and mediastinum: S table contours. Stable surgical changes.Additional findings: None. Signed: Stanford Duque Verified Date/Time: 04/28/2020 10:46:20 Reading Location: [facility] Radiology Reading Room -GLUCOSE [id number] 09:18:00* Test Item Value Reference Range Interpretation Comments POC-GLUCOSE METER (BEAKER) (test code = 1538) 182 mg/dL 70-110 H : TESTED AT [address], [address]: Pneumatic Tube Operator/Movie Actor ID = [id number] for PETER BALDERRAMA BLOOD GAS, [id number] 09:12:00* Test Item Value Reference Range Interpretation Comments PH ARTERIAL (BEAKER) (test code = 383) 7.32 7.35-7.45 L PCO2 ARTERIAL (BEAKER) (test code = 384) 54 mmHg 35-45 H PO2 ARTERIAL (BEAKER) (test code = 385) 118 mmHg 80-90 H O2 SATURATION ARTERIAL (BEAKER) (test code = 386) 97.8 % 96.0 -97.0 H HCO3 ARTERIAL (BEAKER) (test code = 388) 27 mmol/L 21-29 BASE EXCESS ARTERIAL (BEAKER) (test code = 387) 0.2 mmol/L -2.0-3 .0 PATIENT TEMPERATURE (BEAKER) (test code = 1818) 37.5 C FIO2 (BEAKER) (test code = 1819) 40.0 % [id number] 06:48:00* Test Item Value Reference Range Interpretation Comments POTASSIUM (BEAKER) (test code = 379) 5.5 meq/L 3.5-5.1 H Pneumatic Tube Operator ID - ELAINE LHEMOGLOBIN AND [id number] 06:35:00* Test Item Value Reference Range Interpretation Comments HEMOGLOBIN (BEAKER) (test code = 410) 6.7 GM/DL 13.7-17.5 L HEMATOCRIT (BEAKER) (test code = 411) 22.4 % 40.1-51.0 L Pneumatic Tube Operator ID - [id number]-GLUCOSE [id number] 06:24:00* Test Item Value Reference Range Interpretation Comments POC-GLUCOSE METER (BEAKER) (test code = 1538) 196 mg/dL 70-110 H : TESTED AT [facility] [address], [address]: Pneumatic Tube Operator/Movie Actor ID = [id number] for LARRY, SENORA RAD, CHEST, 1 VIEW, NON [id number] 04:34:00Reason for exam:->chest tube in placeFINAL REPORT CLINICAL INDICATION: Support lines. Comparison: 04/27/2020 The cardiomediastinal contours are stable. Right greater than left parenchymal and pleural opacities are unchanged. No pneumothorax is identified. There is persistent subcutaneous gas in the right chest wall. Support lines are stable. Signed: Sayda Faneport Verified Date/Time: 04/28/2020 04:34:27 D GAS, [id number] 04:33:00* Test Item Value Reference Range Interpretation Comments PH ARTERIAL (BEAKER) (test code = 383) 7.35 7.35-7.45 PCO2 ARTERIAL (BEAKER) (test code = 384) 48 mmHg 35-45 H PO2 ARTERIAL (BEAKER) (test code = 385) 163 mmHg 80-90 H O2 SATURATION ARTERIAL (BEAKER) (test code = 386) 99.0 % 96.0 -97.0 H HCO3 ARTERIAL (BEAKER) (test code = 388) 26 mmol/L 21-29 BASE EXCESS ARTERIAL (BEAKER) (test code = 387) -0.3 mmol/L -2.0-3 .0 PATIENT TEMPERATURE (BEAKER) (test code = 1818) 37.0 C FIO2 (BEAKER) (test code = 1819) 40.0 % [id number] 04:33:00* Test Item Value Reference Range Interpretation Comments PHOSPHORUS (BEAKER) (test code = 604) 3.6 mg/dL 2.3-4.7 Pneumatic Tube Operator ID - ELAINE [id number] 04:33:00* Test Item Value Reference Range Interpretation Comments MAGNESIUM (BEAKER) (test code = 627) 2.0 mg/dL 1.6-2.6 Pneumatic Tube Operator ID - PIFOX LBASIC METABOLIC [id number] 04:33:00* Test Item Value Reference Range Interpretation Comments SODIUM (BEAKER) (test code = 381) 137 meq/L 136-145 POTASSIUM (BEAKER) (test code = 379) 5.7 meq/L 3.5-5.1 H CHLORIDE (BEAKER) (test code = 382) 109 meq/L 98-107 H CO2 (BEAKER) (test code = 355) 23 meq/L 22-29 BLOOD UREA NITROGEN (BEAKER) (test code = 354) 35 mg/dL 7-21 H CREATININE (BEAKER) (test code = 358) 0.90 mg/dL 0.57-1.25 GLUCOSE RANDOM (BEAKER) (test code = 652) 239 mg/dL 70-105 H CALCIUM (BEAKER) (test code = 697) 8.3 mg/dL 8.4-10.2 L EGFR (BEAKER) (test code = 1092) 96 mL/min/1.73 sq m ESTIMATED GFR IS NOT ACCURATE CREATININE CLEARANCE IN PREDICTING GLOMERULAR FILTRATION RATE. ESTIMATED GFR IS NOT APPLICABLE FOR DIALYSIS PATIENTS. Pneumatic Tube Operator ID - PIFOX [id number] 04:12:00* Test Item Value Reference Range Interpretation Comments PARTIAL THROMBOPLASTIN TIME (BEAKER) (test code = 760) 56.4 seconds 22.5-36.0 H CBC W/PLT COUNT & AUTO [id number] 04:02:00* Test Item Value Reference Range Interpretation Comments WHITE BLOOD CELL COUNT (BEAKER) (test code = 775) 7.0 K/ L 3.5- 10.5 RED BLOOD CELL COUNT (BEAKER) (test code = 761) 2.71 M/ L 4.63-6 .08 L HEMOGLOBIN (BEAKER) (test code = 410) 6.8 GM/DL 13.7-17.5 L HEMATOCRIT (BEAKER) (test code = 411) 23.2 % 40.1-51.0 L MEAN CORPUSCULAR VOLUME (BEAKER) (test code = 753) 85.6 fL 79. 0-92.2 MEAN CORPUSCULAR HEMOGLOBIN (BEAKER) (test code = 751) 25.1 pg 25.7-32.2 L MEAN CORPUSCULAR HEMOGLOBIN CONC (BEAKER) (test code = 752) 29.3 GM/DL 32.3-36.5 L RED CELL DISTRIBUTION WIDTH (BEAKER) (test code = 412) 17.8 % 11.6-14.4 H PLATELET COUNT (BEAKER) (test code = 756) 210 K/CU MM 150-450 MEAN PLATELET VOLUME (BEAKER) (test code = 754) 10.9 fL 9.4-12 .4 NUCLEATED RED BLOOD CELLS (BEAKER) (test code = 413) 0 /100 WBC 0 -0 NEUTROPHILS RELATIVE PERCENT (BEAKER) (test code = 429) 69 % LYMPHOCYTES RELATIVE PERCENT (BEAKER) (test code = 430) 21 % MONOCYTES RELATIVE PERCENT (BEAKER) (test code = 431) 9 % EOSINOPHILS RELATIVE PERCENT (BEAKER) (test code = 432) 1 % BASOPHILS RELATIVE PERCENT (BEAKER) (test code = 437) 0 % NEUTROPHILS ABSOLUTE COUNT (BEAKER) (test code = 670) 4.79 K/ L 1.78-5.38 LYMPHOCYTES ABSOLUTE COUNT (BEAKER) (test code = 414) 1.43 K/ L 1.32-3.57 MONOCYTES ABSOLUTE COUNT (BEAKER) (test code = 415) 0.64 K/ L 0. 30-0.82 EOSINOPHILS ABSOLUTE COUNT (BEAKER) (test code = 416) 0.09 K/ L 0.04-0.54 BASOPHILS ABSOLUTE COUNT (BEAKER) (test code = 417) 0.01 K/ L 0. 01-0.08 IMMATURE GRANULOCYTES-RELATIVE PERCENT (BEAKER) (test code = 2801) 0 % 0-1 POCT-GLUCOSE [id number] 00:24:00* Test Item Value Reference Range Interpretation Comments POC-GLUCOSE METER (BEAKER) (test code = 1538) 263 mg/dL 70-110 H : Notified RN/MD: TESTED AT [facility] [address], [address]: Pneumatic Tube Operator/Movie Actor ID = [id number] for PIPPA JUAREZ [id number] 21:35:00* Test Item Value Reference Range Interpretation Comments PARTIAL THROMBOPLASTIN TIME (BEAKER) (test code = 760) 54.2 seconds 22.5-36.0 H POCT-GLUCOSE [id number] 17:31:00* Test Item Value Reference Range Interpretation Comments POC-GLUCOSE METER (BEAKER) (test code = 1538) 94 mg/dL 70-110 : TESTED AT [facility] [address] [place], [address]: Pneumatic Tube Operator/Movie Actor ID = [id number] for CAROLA TREJO CBC W/PLT COUNT & AUTO [id number] 16:54:00* Test Item Value Reference Range Interpretation Comments WHITE BLOOD CELL COUNT (BEAKER) (test code = 775) 9.2 K/ L 3.5- 10.5 RED BLOOD CELL COUNT (BEAKER) (test code = 761) 2.89 M/ L 4.63-6 .08 L HEMOGLOBIN (BEAKER) (test code = 410) 7.3 GM/DL 13.7-17.5 L HEMATOCRIT (BEAKER) (test code = 411) 24.9 % 40.1-51.0 L MEAN CORPUSCULAR VOLUME (BEAKER) (test code = 753) 86.2 fL 79. 0-92.2 MEAN CORPUSCULAR HEMOGLOBIN (BEAKER) (test code = 751) 25.3 pg 25.7-32.2 L MEAN CORPUSCULAR HEMOGLOBIN CONC (BEAKER) (test code = 752) 29.3 GM/DL 32.3-36.5 L RED CELL DISTRIBUTION WIDTH (BEAKER) (test code = 412) 17.4 % 11.6-14.4 H PLATELET COUNT (BEAKER) (test code = 756) 222 K/CU MM 150-450 MEAN PLATELET VOLUME (BEAKER) (test code = 754) 10.7 fL 9.4-12 .4 NUCLEATED RED BLOOD CELLS (BEAKER) (test code = 413) 0 /100 WBC 0 -0 NEUTROPHILS RELATIVE PERCENT (BEAKER) (test code = 429) 77 % LYMPHOCYTES RELATIVE PERCENT (BEAKER) (test code = 430) 14 % MONOCYTES RELATIVE PERCENT (BEAKER) (test code = 431) 7 % EOSINOPHILS RELATIVE PERCENT (BEAKER) (test code = 432) 1 % BASOPHILS RELATIVE PERCENT (BEAKER) (test code = 437) 0 % NEUTROPHILS ABSOLUTE COUNT (BEAKER) (test code = 670) 7.09 K/ L 1.78-5.38 H LYMPHOCYTES ABSOLUTE COUNT (BEAKER) (test code = 414) 1.30 K/ L 1.32-3.57 L MONOCYTES ABSOLUTE COUNT (BEAKER) (test code = 415) 0.62 K/ L 0. 30-0.82 EOSINOPHILS ABSOLUTE COUNT (BEAKER) (test code = 416) 0.13 K/ L 0.04-0.54 BASOPHILS ABSOLUTE COUNT (BEAKER) (test code = 417) 0.01 K/ L 0. 01-0.08 IMMATURE GRANULOCYTES-RELATIVE PERCENT (BEAKER) (test code = 2801) 1 % 0-1 Tissue [id number] 16:27:00* Test Item Value Reference Range Interpretation Comments Case Report (test code = 104) Surgical Pathology Repor t Case: [id number] Authorizing Provider: Dhiraj Mclaughlin, Collected: 04/24/2020 05:44 PM Ordering Location: [address] Received: 04/25/2020 09:30 AM Pathologist: Radha Lepe MD Specimen: Pleural, Right, Visceral Right Pleura DIAGNOSIS (test code = 3220) [file] L2txfWYkqaarhPWkurvbEIbmjeD7RWi0kwPolskflBbprHPgdlfdTNdihhIsJTbkvvebNGKdVEnpH6kx ItTqUMFpuKecUVcwe0TwCCFcRPVdJiUtnUIxAEDtQJEELKSWPVonBsuYEDCnSohWQ8CHOSfvRVAYS26P HWfTZYBJL499KGPgyas+AH5gluf+DOCUJRFGXW5KHY LMVZxMPkUkCVaMXJWERNCBJfWoV7WXYvRZNHVJI44hFUtIP3BOVOCRY63NMXFEXP0EGWaVKMxmWgjJBh vLE9KBHITDIWGOZVDJZf3euBJzIRCysgEtz9CpSPIkRCO7AOmySLetlVmgrCVbujbbHFvrruM5WDArPD luXGYxXGZzMjBcbGFuZzEwMzNcaGljaFxmMVxkYmNo GRYvTCxwX4dyXxJpQiXnYDTlxyx+FY6xii4jRmWUAGUKAmRyAr1BDB3NSDnUSkNIO4fvX2ALVcLCI25Q FbnfIUX6j9dqvDTqZEXgmQCyFVSkETkrxzAmIAGyMoxwlyzrXCSwYWN3ufUeDPUvJYtfCEMsRApxPs6n oEJzgYmnUdIlMLCzk7wxiuQPlbdpxUn8m4usWEJhWd G8rIQqXRirZ0zyjzUrpTOvVMGuTSb9fN31WMElkF4dxUUiMXwpcdKtWvU2FJleUDFsBsZ4CALejJJbQC IsD6lxGYTbMRigRFMzIQavnZXnTBG2hZnkk5N3hPXqkRNieWtaWtTaDdNpSmCVq3JcXSn1wCsiH7YaRZ XmSxK0pPWqWHPtHQulMUNxJOYppfK9qZ52MLfpmeY2 mJFpq5Osa46pn498qR0nkOPcEON8DAGpNQLenCJtLDSiWQZ8UWJyqSYsK0nqKQVlDM1zpupgEHfpFSpj VWZmjSN4BJAcvNVrB7KtRAVrCCckZGUuucq1EcMbYl1sgUWwjIatTYndw0bmt9kdyQVuZht1BRGbAlIf IkvwIYpdi6Efh1zsBACmye6cPEX9nOVooXnae5U8vI HmZMJrhVVrZZWaEG5jlMWmXQTljU6okfljDLOwCwMbtiyuSGGguQimdbJfTq1yoAnsBYC7IIhmT8djyK 2fUjD0SBoeE3drsQ0tUIx5KMzjMHXttAN8iiG4TLByfPXfQ7MceP8fDLUuND1ssmh3v5yjWCS7TXojYO XlGvO4hfT1LZUwcUJpWDOpgQikKVzrk950ANP9AbQa XNJvp9YlT1LtvJbzN82pxNsqS34oSSXprMefxZ0esNuobK6tDqJeLmEpUEtxnGzyCR1eRFWuP3zuwITw JBHyLXLyX7sdGvLdgD2csEmkHDrdiwFtCROkNhs1IFQiuVWaJZDyIdh3WOPpLUDnE85cwlolCTQ9gI3f l8keh3GrBZaaGJY2THNaw91kEUvlthV8TNamNk90DUwcJIR6TGjoRCJ4kT== CPT Code(s) (test code = 3357) g2hojZXmLLHvqEZmXgWqBMQpWNLkk8opNFPkhKWbQrSaUjRvZeBkTcyhyJVaFKIjBeZnb3nmk865eJOl g4xgDCBlHrH4pCKpFSDiqOIfD687o3non7oazyFnkRO9MMCvGVH8ZSnpvqGwpiJ4GMuiwNCwMuA3DDsi gfWjIQfnqcTrecNoIha3SEDfY646LWK1cDjbi9ovDA N5VMFjEEQpXxRcAm6ypFSoV164JOUjHPHZLNYwwJa4PRGsiuLmjqFtaLEVm156Q857t3nyMKJjwnMsuF mVeibnm6lhQ326ETTaeIOqnkQlYcLaXNNpsEAjnUD2AEVrZR2zxaooFoStJR4ujmgaYuHuIU6malc3Ew QqLM9ouskxQhBpXPraETMloueaCGEpc6NkjiwxGW1z N6Xmj2F1uU6umWOpLVTehBXsDvMrLPXruv6zzSGlMRvny7GyMIJ8grR8gELhqZGdEDKgHN76Gxkod5Jx NetlKUX1GCYpowAzp7Fku7tgHfUlciIfQ8raE8KlQRXbPIMoUTPgDnSajzKoz9Hdd3SakGSsaNz4a9fq TFSwVTMiyBzwb3emSLU7XFScU1Q9wAZwb5gcYIeiAK TvcCM7szjlHWcwYZPbejO0bbblHGqnHLWkaLS6fnujAHpbNIJrQgH9aacdVGhxVUAaUVL1IFxem857AB Z0KVhlErayBNwrNYXucqMktjQbsYfkITUnRJUqEOtxBMNhOPopZSHkRYAxWvXquAresAkigB0jGkSlVk CzPVclAR0nGHHeS6znxMGtQGJlQGXxP2neMrUmsH5arGrpRPsgboQuPIi5UmK8RXSzmt4= CLINICAL HISTORY (test code = 3356) f0vzfRBxBFWujJCrRxBwUSQoMTOjl5erRGGshBMmKuUyQrDxYxTqEurgwETwUKAaTbLas8hhg916qVMy o2tcHOSpNoI1qIAyPMMlbCOnS272OAToELbei8fsu7SmBXIksOYej4A2OQTNywoleWd9rYipP17kf1S2 EodnG5yqHDSqWFIeR7UpUS0tVQOzZdv7ZIB5OSL5RC AbCHVkC8PzLI8zDBPpqOWpRVo2x2nynKyhMSBjSUB5i3ohLGighxWnWY8nnu3nyIo4i1ctadTwHDIrVL VphALFZKTbL7JudFyvSb5uiNj3gLrdInbpMEW0Sdg8YX1qkp73wxg7rInfDFSapvueFtS5INeqYXKwky cdZSi0KAsaVOLbaFquYFfvHVRrpvplVGqpQBPwnLoa SGhqRYNaJvvhSUqaTUQrAXQ3EGpvi122LAX1WZnxm9fby0czmOLqCuz9YZKbJhHyEhkuPZfpz2Vkf4aj RCRfzj0oXRF7cSNhnBmdc5E6xNWfJBTycRNuacLbSJMhZoU8AAnbSJ7thx96PDPtISP1wa5aoFMzzIln hwTnsCUeJVwaY4RrEGTux602NWViC4RhQARov0Q0jh LyTxVmIIBgqQF3mbF9JEDeYRn1vGQwejE4geWmnBEuO2dwqK49RlHbnXOkD7VqyY42WgUvfMQrI5ZsjV 28XrOubVKhM4HkcI17MwMzlJHgSJPjpNOpXv2rlLKywKIwl7YraYNxSNpwE87al677VGAqoyMaZ0hmeF AncljiwFUwivwqUMmsvkN8GQn5azJkvukmoAwveMAb vjshYWnrnjNmCWdktfbpAPXbOSnmW0xcTsUbBKCokPrrXDuej9WiEERkPLZsOfDjZO6fyAqvsOKfXDYf XUQsp7Itc3UavPnadD2bcK0ztvbcVbggKTV3 SPECIMEN SOURCE (test code = 3377) m7ioxHRoRNMaaMOvUlBvKWEmNNAtm9hiFMLilNKjJbQgWwKeMpKpRwrvyEYoFPEzFfQxt9jwx669gTIs w3ukCZAtBbG0tIXwCQNjrZNqF705p2huh2comqNmfZR2AMTfMGB0KOkgcjXyvcU7VOlzqGVnEcS9OFhd uuKeXHjkjhBdnzZdEbz9XBYsU154DUR3tIjfb8beEQ W2WHDvBAClZeKgLl8brFCuQ941JYJzGQLYGEVtxPf5VEHdpjWiwbGjcTUUh411N805q3oeSKDmrhBznX lHowuiv7rtT023HBBnqFDipdEjZmGnUMHygCNasYY5IWOxLT0lmhduOlUwSQ6qrgsiYpPsEF3vike9Pi WvZO7zltvaLnSiZSfhMCVtbfmsIDDhe2SjfrnnUQ3o A8Bci5B3mB4mcYRpDNVhjPTuRmClRDJzci1isPPqZXurd0DmPYQ6rnU2mUQlzZEyATQhFE60Pvtgf5He CvjtBHC5KIAigsQpl1Bbz4ujIkUjsfBkZ4ruS0MzWWYcFZSvRBFyFfTpizLdt6Qay8NsrGLunTi7y8co NLEnHXIhkThlr9xrRXD1RHJfI3A8uVUqv2kzLBdePP YarKP8voeaKUpxGZXdlzK0nhxpWSzkSPOtpZO5czneIKewFLTdRvM0rsxcRJofAWUiUPQ7BEmhy687ZW S0QOsvQivlURciOVSydrXhgzIvvTagOAQuBPFmILglGRDiWLqcYMEsHZPuOtCcjGllqFlznF2eJrXiTz KwEPakEH9vSLQiG7subELzQTWlOTRwF8izLqQogH 4naXisZYggimXaQCHgKMGlUCxdKPXxW9o3LBHxio9= GROSS DESCRIPTION (test code = 3366) m2coxGYoQQEqkMUpKgOiNHBcDJXxr8fcFKKzvLEjEwCtOhKoYaIqQrejbNZzDSLjKmQmp5mik422zWVp b6hlEFIlSqM5aYVmXQScjYIzE136r7dtd1jopgGytSX1NXSzZIH5MLxplbRaukF8XPkbsNVrPkB4YSso ghTaRKjxmoYhllFfUck9TWFuO205WXY0xNyyy7qcUS E8MGZuYLEvOsFeGa7baQMaS175HHOeDQMXKRMjyMa0DQGpsqMdmgKnqWYZs095Y790u2fuWVLoeyYvlT aEqfjfa8siD214WCWvzZMqdfTpKyEuLJRdsRCjpZB0AMGcNW6oihkfNgYqJE9xdcpiIvRnBF1xrpr0Pb YeFT9coostWjTtOXpmJLXglheuYYVsy3VzrcxuHY4n I0Kyf5V5jN1pmNIhZCUpeVJuPsKlXNUedw2jeIUxTLgtb2HsNOW4cdC8gZUatXNxDHPlDB02Avdli4Nf SighKBH8KLOwuaLdi7Gdc3faYhCkgpOiS5ldN1WqZKRwEELsELByVmIvnnDaf6Mcz6BsqITjgPb6g6ws CSYhBFDozBoxu3pkJXI9QRWyH8A3kOLdo6xgUMstKN CnxHX3jzibYJxdPQBsonB1avutKQvlKRNrpGB3jvqmIHyiOISaVjJ8wmagOMilZMHmSOU9OXoqc842XR E4OHigOzpbCViuZHBbqkNmuvTyyPxvZIHqWRGrEOrsDQJsGKfcHAGqORFuSiEqjFeakOxxrE7zWdFlIz FzWYnxCD5qMMYcI3ybpCKtEJMlUXGzB9lhIqBetL7d vZovAYdzipDlOIDbL2KfdkFnPDdsFTVhcl8mpEnjETcnWzKqEKMor2k1aGS3gMPavCG4jVKnxFdnOP6g sIQmDUAkL3Nrm9wnulNbhQ6dYQUoYG6hFVN8xRNeJLXsuBZkjRdyhLPswQG5yvQdTIphATJgAU61SKui NB0aUWlyTL64ZOPqFTIaB4BdG3Q8RKVoOlZ7MQ9meA hbhhRwlHUjm73drUQxGH4zmLMiiRmyw0SoXLUjVQQuaqQ4XRrnhUOzIJFxDiUcuf07hvS2kZIftIXyHP JPTFD4sY5ljM8aVXCkpwWoqJApEEX9UL9ssOmtxmWkoTLql1PbRMK4aUHilQGjWLBlIjSuWxWogeNzTK 13FHEaxtBih0TwhGzdksCyXUGsSXW3Ws4spBIoHJHa amHERO1HEc1avTFdUXMaeuHZgMfhqxLNyyt7FSdrYUFsTTOAGDdRN7TVEPQrZRVmbl2= MICROSCOPIC DESCRIPTION (test code = 3371) q5nxrNPyBIGnzCCuOrXoVHAxZTGyf3acMDFduUNePeUeOzZlUbVbWnpbsAWxHSJwYcRqy9iip620dMQy a6wzDUFyByM2eGFxKJLhxDZyL800y1iud6bnqaAjzBZ5ADAbIXE3ZOuxabLkslN8KXipqWTvNmX7WJqv bvSeETwhiwIhnmPoVmc3GTVgH923XCI4lAslh3yiTK P1EKLwWVVpHhFcWt2qaJYnZ222PMFqIFHJLFBniRd4SDZulsBgxlVknIYMm525U573u0foJGNhukXdcI bHxtgds0hdR345PEMamIZwvfXqVbVaLJSoxZUecJY9TVKzMT6incnzNzKfNO3zcygaDpNjEV5aqmf0Qx DbBP4vqaerZlTgUTzfYHMkwsmpUQVax8GcwqvmFY0u U2Jsn1Y9zP6reGIvRWDtoEBdZiQjXGCvia1imQRxEBemw3XoPFP0siM4xMNiiAXrLJOmMP63Tnock8Tg AtmpHWS1ENFfxsKbm5Thh1zpAdHdtxLaJ9wwI2YbBFBxVYSfZLGrXbHzfzWen1Nch9ZneHZkcMq2p5yn VDMrIKGxcAwty6gbKLI2ZMHzH6I6eQQne5wtDCfwVH NdjFY8gzkuPBuhJHPdgsA5jowxBRdiAVNdcZK7nbajPOznAKDnSiE3biiwLHelFEQnOVD9XGrjz339WF U7ONodThajOGgdKCMdhnYcngGunEezYLIaQATuUYqtYIHyFLipQLTcVCQwGfFwjPoxyOpniK4xOnDdCc QsXOolYC6bBFPhI5trjYBkJSUxRNSqH3yzQfCfxF6dwEscYAnfleBrFVAqeaDtns7cKJ4onUQmzJ== Gross assessment was performed at (test code = 2777) [facility], Department of Pathology, [address] [place] [address], Technical component was performed at (test code = 2778 ) [facility], Department of Pathology, [address] [place] [address], Professional component was performed at (test code = 2 779) [facility], Department of Pathology, [address] [place] [address], [facility] [id number] 16:27:00Surgical Pathology Report Case: [id number] Authorizing Provider: Dhiraj Mclaughlin, Collected: 04/24/2020 05:44 PM Ordering Location: [address] Received: 04/25/2020 09:30 AM Pathologist: Radha Lepe MD Specimen: Pleural, Right, Visceral Right Pleura A. PLEURA, RIGHT VISCERAL, DECORTICATION: - FIBRI NOPURULENT EXUDATE AND GRANULATION TISSUE, CONSISTENT WITH FIBRINOUS PLEURITIS. - NEGATIVE FOR MALIGNANCY/GRANULOMA. Signing Pathologist Direct Phone Li ne: [phone] signed by Radha Lepe MD on 04/27/2020 at 4:27 PM8 [id number] pneumothorax, pneumonia.Pleural, rightReceived in formalin labeled with the patient's name, accession number and "visceral right pleura" is a 8.4 x 8.0 x 0.7 cm aggregate of mcnamara-pink fibromembranous tissue and pickens-white fibri nous tissue. Sectioning reveals a mcnamara-pink fibrous cut surface. Sales Service Executive sections are submitted in A1-A3.CAROLE Gamble (ASCP)cmPerformed.[facility], Department of Pathology, [address] [place] [address], [facility], [address] [place] [address], [facility], [address] [place] [address], Hhgqmxijjj obtained culture + gram [id number] 16:26:00* Test Item Value Reference Range Interpretation Comments Result (test code = 6463-4) No growth Gram Stain Result (test code = 1123) No organisms seen [facility] + GRAM [id number] 16:26:00* Test Item Value Reference Range Interpretation Comments CULTURE (BEAKER) (test code = 1095) No growth GRAM STAIN RESULT (BEAKER) (test code = 1123) 1+ WBCs GRAM STAIN RESULT (BEAKER) (test code = 76489) No organisms seen [id number] 14:41:00* Test Item Value Reference Range Interpretation Comments PARTIAL THROMBOPLASTIN TIME (BEAKER) (test code = 760) 45.5 seconds 22.5-36.0 H POCT-GLUCOSE [id number] 11:44:00* Test Item Value Reference Range Interpretation Comments POC-GLUCOSE METER (BEAKER) (test code = 1538) 225 mg/dL 70-110 H : Notified RN/MD: TESTED AT [address], [address]: Pneumatic Tube Operator/Movie Actor ID = [id number] for Trice Dumont BLOOD GAS, [id number] 08:42:00* Test Item Value Reference Range Interpretation Comments PH ARTERIAL (BEAKER) (test code = 383) 7.30 7.35-7.45 L PCO2 ARTERIAL (BEAKER) (test code = 384) 54 mmHg 35-45 H PO2 ARTERIAL (BEAKER) (test code = 385) 100 mmHg 80-90 H O2 SATURATION ARTERIAL (BEAKER) (test code = 386) 96.5 % 96.0 -97.0 HCO3 ARTERIAL (BEAKER) (test code = 388) 26 mmol/L 21-29 BASE EXCESS ARTERIAL (BEAKER) (test code = 387) -0.5 mmol/L -2.0-3 .0 PATIENT TEMPERATURE (BEAKER) (test code = 1818) 38.0 C FIO2 (BEAKER) (test code = 1819) 40.0 % [id number] 08:41:00* Test Item Value Reference Range Interpretation Comments PARTIAL THROMBOPLASTIN TIME (BEAKER) (test code = 760) 44.2 seconds 22.5-36.0 H POCT-GLUCOSE [id number] 08:33:00* Test Item Value Reference Range Interpretation Comments POC-GLUCOSE METER (BEAKER) (test code = 1538) 233 mg/dL 70-110 H : TESTED AT [facility] [address] [facility], [address]: Pneumatic Tube Operator/Movie Actor ID = [id number] for FERNANDA BRITO BASIC METABOLIC [id number] 05:41:00* Test Item Value Reference Range Interpretation Comments SODIUM (BEAKER) (test code = 381) 138 meq/L 136-145 POTASSIUM (BEAKER) (test code = 379) 5.1 meq/L 3.5-5.1 CHLORIDE (BEAKER) (test code = 382) 111 meq/L 98-107 H CO2 (BEAKER) (test code = 355) 24 meq/L 22-29 BLOOD UREA NITROGEN (BEAKER) (test code = 354) 33 mg/dL 7-21 H CREATININE (BEAKER) (test code = 358) 0.82 mg/dL 0.57-1.25 GLUCOSE RANDOM (BEAKER) (test code = 652) 215 mg/dL 70-105 H CALCIUM (BEAKER) (test code = 697) 7.9 mg/dL 8.4-10.2 L EGFR (BEAKER) (test code = 1092) 107 mL/min/1.73 sq m ESTIMATED GFR IS NOT ACCURATE CREATININE CLEARANCE IN PREDICTING GLOMERULAR FILTRATION RATE. ESTIMATED GFR IS NOT APPLICABLE FOR DIALYSIS PATIENTS. Pneumatic Tube Operator ID - [id number] 05:36:00* Test Item Value Reference Range Interpretation Comments PHOSPHORUS (BEAKER) (test code = 604) 3.3 mg/dL 2.3-4.7 Pneumatic Tube Operator ID - [id number] 05:36:00* Test Item Value Reference Range Interpretation Comments MAGNESIUM (BEAKER) (test code = 627) 2.1 mg/dL 1.6-2.6 Pneumatic Tube Operator ID - BSBLOOD GAS, [id number] 05:12:00* Test Item Value Reference Range Interpretation Comments PH ARTERIAL (BEAKER) (test code = 383) 7.31 7.35-7.45 L PCO2 ARTERIAL (BEAKER) (test code = 384) 54 mmHg 35-45 H PO2 ARTERIAL (BEAKER) (test code = 385) 171 mmHg 80-90 H O2 SATURATION ARTERIAL (BEAKER) (test code = 386) 99.0 % 96.0 -97.0 H HCO3 ARTERIAL (BEAKER) (test code = 388) 26 mmol/L 21-29 BASE EXCESS ARTERIAL (BEAKER) (test code = 387) -0.2 mmol/L -2.0-3 .0 PATIENT TEMPERATURE (BEAKER) (test code = 1818) 37.1 C FIO2 (BEAKER) (test code = 1819) 40.0 % CBC W/PLT COUNT & AUTO [id number] 04:43:00* Test Item Value Reference Range Interpretation Comments WHITE BLOOD CELL COUNT (BEAKER) (test code = 775) 8.0 K/ L 3.5- 10.5 RED BLOOD CELL COUNT (BEAKER) (test code = 761) 2.87 M/ L 4.63-6 .08 L HEMOGLOBIN (BEAKER) (test code = 410) 7.5 GM/DL 13.7-17.5 L HEMATOCRIT (BEAKER) (test code = 411) 24.3 % 40.1-51.0 L MEAN CORPUSCULAR VOLUME (BEAKER) (test code = 753) 84.7 fL 79. 0-92.2 MEAN CORPUSCULAR HEMOGLOBIN (BEAKER) (test code = 751) 26.1 pg 25.7-32.2 MEAN CORPUSCULAR HEMOGLOBIN CONC (BEAKER) (test code = 752) 30.9 GM/DL 32.3-36.5 L RED CELL DISTRIBUTION WIDTH (BEAKER) (test code = 412) 17.7 % 11.6-14.4 H PLATELET COUNT (BEAKER) (test code = 756) 219 K/CU MM 150-450 MEAN PLATELET VOLUME (BEAKER) (test code = 754) 10.3 fL 9.4-12 .4 NUCLEATED RED BLOOD CELLS (BEAKER) (test code = 413) 0 /100 WBC 0 -0 NEUTROPHILS RELATIVE PERCENT (BEAKER) (test code = 429) 73 % LYMPHOCYTES RELATIVE PERCENT (BEAKER) (test code = 430) 17 % MONOCYTES RELATIVE PERCENT (BEAKER) (test code = 431) 7 % EOSINOPHILS RELATIVE PERCENT (BEAKER) (test code = 432) 2 % BASOPHILS RELATIVE PERCENT (BEAKER) (test code = 437) 0 % NEUTROPHILS ABSOLUTE COUNT (BEAKER) (test code = 670) 5.86 K/ L 1.78-5.38 H LYMPHOCYTES ABSOLUTE COUNT (BEAKER) (test code = 414) 1.36 K/ L 1.32-3.57 MONOCYTES ABSOLUTE COUNT (BEAKER) (test code = 415) 0.59 K/ L 0. 30-0.82 EOSINOPHILS ABSOLUTE COUNT (BEAKER) (test code = 416) 0.18 K/ L 0.04-0.54 BASOPHILS ABSOLUTE COUNT (BEAKER) (test code = 417) 0.01 K/ L 0. 01-0.08 IMMATURE GRANULOCYTES-RELATIVE PERCENT (BEAKER) (test code = 2801) 0 % 0-1 RAD, CHEST, 1 VIEW, NON [id number] 03:25:00Reason for exam:->chest tube in placeFINAL REPORT RAD, CHEST, 1 VIEW, NON DEPT INDICATION: chest tube in place COMPARISON: Prior day's exam FINDINGS: Portable frontal view of the chest. IMPRESSION: Support Lines: Stable. Lungs and pleura: Bilateral airspace and pleural opacities are unchanged. No discernible pneumothorax.Heart and mediastinum: Stable contours. Additional findings: None. Signed: Yue Parker MDReport Verified Date/Time: 04/27/2020 03:25:08 2020-04-27 02:19:00* Test Item Value Reference Range Interpretation Comments PARTIAL THROMBOPLASTIN TIME (BEAKER) (test code = 760) 39.8 seconds 22.5-36.0 H POCT-GLUCOSE [id number] 00:45:00* Test Item Value Reference Range Interpretation Comments POC-GLUCOSE METER (BEAKER) (test code = 1538) 212 mg/dL 70-110 H : TESTED AT [place] [id number] [facility], [address]: Pneumatic Tube Operator/Movie Actor ID = [id number] for LARRY, SENORA POCT-GLUCOSE [id number] 21:25:00* Test Item Value Reference Range Interpretation Comments POC-GLUCOSE METER (BEAKER) (test code = 1538) 205 mg/dL 70-110 H : Notified RN/MD: TESTED AT [place] [id number] [facility], [address]: Pneumatic Tube Operator/Movie Actor ID = [id number] for LARRY, SENORA CBC (HEMOGRAM ONLY)2020-04-26 19:16:00* Test Item Value Reference Range Interpretation Comments WHITE BLOOD CELL COUNT (BEAKER) (test code = 775) 7.4 K/ L 3.5- 10.5 RED BLOOD CELL COUNT (BEAKER) (test code = 761) 2.93 M/ L 4.63-6 .08 L HEMOGLOBIN (BEAKER) (test code = 410) 7.7 GM/DL 13.7-17.5 L HEMATOCRIT (BEAKER) (test code = 411) 24.6 % 40.1-51.0 L MEAN CORPUSCULAR VOLUME (BEAKER) (test code = 753) 84.0 fL 79. 0-92.2 MEAN CORPUSCULAR HEMOGLOBIN (BEAKER) (test code = 751) 26.3 pg 25.7-32.2 MEAN CORPUSCULAR HEMOGLOBIN CONC (BEAKER) (test code = 752) 31.3 GM/DL 32.3-36.5 L RED CELL DISTRIBUTION WIDTH (BEAKER) (test code = 412) 17.8 % 11.6-14.4 H PLATELET COUNT (BEAKER) (test code = 756) 242 K/CU MM 150-450 MEAN PLATELET VOLUME (BEAKER) (test code = 754) 10.6 fL 9.4-12 .4 NUCLEATED RED BLOOD CELLS (BEAKER) (test code = 413) 0 /100 WBC 0 -0 [id number] 19:10:00* Test Item Value Reference Range Interpretation Comments PARTIAL THROMBOPLASTIN TIME (BEAKER) (test code = 760) 40.5 seconds 22.5-36.0 H 6 hours after starting heparin infusion and as indicated per sliding scale HEMOGLOBIN AND [id number] 17:45:00* Test Item Value Reference Range Interpretation Comments HEMOGLOBIN (BEAKER) (test code = 410) 7.7 GM/DL 13.7-17.5 L HEMATOCRIT (BEAKER) (test code = 411) 24.7 % 40.1-51.0 L Pneumatic Tube Operator ID - 6000POCT-GLUCOSE [id number] 17:44:00* Test Item Value Reference Range Interpretation Comments POC-GLUCOSE METER (BEAKER) (test code = 1538) 208 mg/dL 70-110 H : TESTED AT [address], [address]: Pneumatic Tube Operator/Movie Actor ID = [id number] for RADHA SMITH CBC (HEMOGRAM ONLY)2020-04-26 14:56:00* Test Item Value Reference Range Interpretation Comments WHITE BLOOD CELL COUNT (BEAKER) (test code = 775) 7.7 K/ L 3.5- 10.5 RED BLOOD CELL COUNT (BEAKER) (test code = 761) 3.02 M/ L 4.63-6 .08 L HEMOGLOBIN (BEAKER) (test code = 410) 7.8 GM/DL 13.7-17.5 L HEMATOCRIT (BEAKER) (test code = 411) 25.4 % 40.1-51.0 L MEAN CORPUSCULAR VOLUME (BEAKER) (test code = 753) 84.1 fL 79. 0-92.2 MEAN CORPUSCULAR HEMOGLOBIN (BEAKER) (test code = 751) 25.8 pg 25.7-32.2 MEAN CORPUSCULAR HEMOGLOBIN CONC (BEAKER) (test code = 752) 30.7 GM/DL 32.3-36.5 L RED CELL DISTRIBUTION WIDTH (BEAKER) (test code = 412) 17.8 % 11.6-14.4 H PLATELET COUNT (BEAKER) (test code = 756) 233 K/CU MM 150-450 MEAN PLATELET VOLUME (BEAKER) (test code = 754) 10.1 fL 9.4-12 .4 NUCLEATED RED BLOOD CELLS (BEAKER) (test code = 413) 0 /100 WBC 0 -0 POCT-GLUCOSE [id number] 13:10:00* Test Item Value Reference Range Interpretation Comments POC-GLUCOSE METER (BEAKER) (test code = 1538) 217 mg/dL 70-110 H : TESTED AT [address], [address]: Pneumatic Tube Operator/Movie Actor ID = [id number] for RADHA SMITH BLOOD GAS, [id number] 13:01:00* Test Item Value Reference Range Interpretation Comments PH ARTERIAL (BEAKER) (test code = 383) 7.38 7.35-7.45 PCO2 ARTERIAL (BEAKER) (test code = 384) 44 mmHg 35-45 PO2 ARTERIAL (BEAKER) (test code = 385) 164 mmHg 80-90 H O2 SATURATION ARTERIAL (BEAKER) (test code = 386) 99.1 % 96.0 -97.0 H HCO3 ARTERIAL (BEAKER) (test code = 388) 25 mmol/L 21-29 BASE EXCESS ARTERIAL (BEAKER) (test code = 387) 0.3 mmol/L -2.0-3 .0 PATIENT TEMPERATURE (BEAKER) (test code = 1818) 36.9 C FIO2 (BEAKER) (test code = 1819) 40.0 % BLOOD GAS, [id number] 09:14:00* Test Item Value Reference Range Interpretation Comments PH ARTERIAL (BEAKER) (test code = 383) 7.38 7.35-7.45 PCO2 ARTERIAL (BEAKER) (test code = 384) 46 mmHg 35-45 H PO2 ARTERIAL (BEAKER) (test code = 385) 168 mmHg 80-90 H O2 SATURATION ARTERIAL (BEAKER) (test code = 386) 99.1 % 96.0 -97.0 H HCO3 ARTERIAL (BEAKER) (test code = 388) 26 mmol/L 21-29 BASE EXCESS ARTERIAL (BEAKER) (test code = 387) 1.0 mmol/L -2.0-3 .0 PATIENT TEMPERATURE (BEAKER) (test code = 1818) 36.9 C FIO2 (BEAKER) (test code = 1819) 40.0 % BASIC METABOLIC [id number] 05:53:00* Test Item Value Reference Range Interpretation Comments SODIUM (BEAKER) (test code = 381) 141 meq/L 136-145 POTASSIUM (BEAKER) (test code = 379) 4.9 meq/L 3.5-5.1 CHLORIDE (BEAKER) (test code = 382) 112 meq/L 98-107 H CO2 (BEAKER) (test code = 355) 25 meq/L 22-29 BLOOD UREA NITROGEN (BEAKER) (test code = 354) 32 mg/dL 7-21 H CREATININE (BEAKER) (test code = 358) 0.82 mg/dL 0.57-1.25 GLUCOSE RANDOM (BEAKER) (test code = 652) 193 mg/dL 70-105 H CALCIUM (BEAKER) (test code = 697) 7.9 mg/dL 8.4-10.2 L EGFR (BEAKER) (test code = 1092) 107 mL/min/1.73 sq m ESTIMATED GFR IS NOT ACCURATE CREATININE CLEARANCE IN PREDICTING GLOMERULAR FILTRATION RATE. ESTIMATED GFR IS NOT APPLICABLE FOR DIALYSIS PATIENTS. Pneumatic Tube Operator ID - LYNN MPOCT-GLUCOSE [id number] 05:17:00* Test Item Value Reference Range Interpretation Comments POC-GLUCOSE METER (BEAKER) (test code = 1538) 165 mg/dL 70-110 H : TESTED AT [address], [address]: Pneumatic Tube Operator/Movie Actor ID = [id number] for HOMERO HENDRICKS CBC W/PLT COUNT & AUTO [id number] 05:11:00* Test Item Value Reference Range Interpretation Comments WHITE BLOOD CELL COUNT (BEAKER) (test code = 775) 9.0 K/ L 3.5- 10.5 RED BLOOD CELL COUNT (BEAKER) (test code = 761) 2.51 M/ L 4.63-6 .08 L HEMOGLOBIN (BEAKER) (test code = 410) 6.3 GM/DL 13.7-17.5 L HEMATOCRIT (BEAKER) (test code = 411) 20.7 % 40.1-51.0 L MEAN CORPUSCULAR VOLUME (BEAKER) (test code = 753) 82.5 fL 79. 0-92.2 MEAN CORPUSCULAR HEMOGLOBIN (BEAKER) (test code = 751) 25.1 pg 25.7-32.2 L MEAN CORPUSCULAR HEMOGLOBIN CONC (BEAKER) (test code = 752) 30.4 GM/DL 32.3-36.5 L RED CELL DISTRIBUTION WIDTH (BEAKER) (test code = 412) 17.2 % 11.6-14.4 H PLATELET COUNT (BEAKER) (test code = 756) 249 K/CU MM 150-450 MEAN PLATELET VOLUME (BEAKER) (test code = 754) 9.8 fL 9.4-12 .4 NUCLEATED RED BLOOD CELLS (BEAKER) (test code = 413) 0 /100 WBC 0 -0 NEUTROPHILS RELATIVE PERCENT (BEAKER) (test code = 429) 70 % LYMPHOCYTES RELATIVE PERCENT (BEAKER) (test code = 430) 18 % MONOCYTES RELATIVE PERCENT (BEAKER) (test code = 431) 10 % EOSINOPHILS RELATIVE PERCENT (BEAKER) (test code = 432) 1 % BASOPHILS RELATIVE PERCENT (BEAKER) (test code = 437) 0 % NEUTROPHILS ABSOLUTE COUNT (BEAKER) (test code = 670) 6.31 K/ L 1.78-5.38 H LYMPHOCYTES ABSOLUTE COUNT (BEAKER) (test code = 414) 1.64 K/ L 1.32-3.57 MONOCYTES ABSOLUTE COUNT (BEAKER) (test code = 415) 0.86 K/ L 0. 30-0.82 H EOSINOPHILS ABSOLUTE COUNT (BEAKER) (test code = 416) 0.08 K/ L 0.04-0.54 BASOPHILS ABSOLUTE COUNT (BEAKER) (test code = 417) 0.01 K/ L 0. 01-0.08 IMMATURE GRANULOCYTES-RELATIVE PERCENT (BEAKER) (test code = 2801) 1 % 0-1 BLOOD GAS, [id number] 05:03:00* Test Item Value Reference Range Interpretation Comments PH ARTERIAL (BEAKER) (test code = 383) 7.40 7.35-7.45 PCO2 ARTERIAL (BEAKER) (test code = 384) 43 mmHg 35-45 PO2 ARTERIAL (BEAKER) (test code = 385) 139 mmHg 80-90 H O2 SATURATION ARTERIAL (BEAKER) (test code = 386) 98.8 % 96.0 -97.0 H HCO3 ARTERIAL (BEAKER) (test code = 388) 26 mmol/L 21-29 BASE EXCESS ARTERIAL (BEAKER) (test code = 387) 1.1 mmol/L -2.0-3 .0 PATIENT TEMPERATURE (BEAKER) (test code = 1818) 36.8 C FIO2 (BEAKER) (test code = 1819) 40.0 % SARS-COV2/RT-PCR ([facility])2020-04-26 04:49:00* Test Item Value Reference Range Interpretation Comments SARS-COV2/RT-PCR (test code = 7729329) Negative Not Detected, N egative SARS-COV-2 PERFORMING LAB (test code = 9131897) CPL BASIC METABOLIC [id number] 04:37:00* Test Item Value Reference Range Interpretation Comments SODIUM (BEAKER) (test code = 381) 137 meq/L 136-145 POTASSIUM (BEAKER) (test code = 379) 5.6 meq/L 3.5-5.1 H CHLORIDE (BEAKER) (test code = 382) 109 meq/L 98-107 H CO2 (BEAKER) (test code = 355) 24 meq/L 22-29 BLOOD UREA NITROGEN (BEAKER) (test code = 354) 31 mg/dL 7-21 H CREATININE (BEAKER) (test code = 358) 0.98 mg/dL 0.57-1.25 GLUCOSE RANDOM (BEAKER) (test code = 652) 468 mg/dL 70-105 HH CALCIUM (BEAKER) (test code = 697) 8.1 mg/dL 8.4-10.2 L EGFR (BEAKER) (test code = 1092) 87 mL/min/1.73 sq m ESTIMATED GFR IS NOT ACCURATE CREATININE CLEARANCE IN PREDICTING GLOMERULAR FILTRATION RATE. ESTIMATED GFR IS NOT APPLICABLE FOR DIALYSIS PATIENTS. Pneumatic Tube Operator ID - LYNN [id number] 04:27:00* Test Item Value Reference Range Interpretation Comments PHOSPHORUS (BEAKER) (test code = 604) 3.6 mg/dL 2.3-4.7 Pneumatic Tube Operator ID - LYNN [id number] 04:27:00* Test Item Value Reference Range Interpretation Comments MAGNESIUM (BEAKER) (test code = 627) 2.4 mg/dL 1.6-2.6 Pneumatic Tube Operator ID - LYNN [facility] W/PLT COUNT & AUTO [id number] 04:07:00* Test Item Value Reference Range Interpretation Comments WHITE BLOOD CELL COUNT (BEAKER) (test code = 775) 8.5 K/ L 3.5- 10.5 RED BLOOD CELL COUNT (BEAKER) (test code = 761) 2.48 M/ L 4.63-6 .08 L HEMOGLOBIN (BEAKER) (test code = 410) 6.5 GM/DL 13.7-17.5 L HEMATOCRIT (BEAKER) (test code = 411) 21.1 % 40.1-51.0 L MEAN CORPUSCULAR VOLUME (BEAKER) (test code = 753) 85.1 fL 79. 0-92.2 MEAN CORPUSCULAR HEMOGLOBIN (BEAKER) (test code = 751) 26.2 pg 25.7-32.2 MEAN CORPUSCULAR HEMOGLOBIN CONC (BEAKER) (test code = 752) 30.8 GM/DL 32.3-36.5 L RED CELL DISTRIBUTION WIDTH (BEAKER) (test code = 412) 17.4 % 11.6-14.4 H PLATELET COUNT (BEAKER) (test code = 756) 245 K/CU MM 150-450 MEAN PLATELET VOLUME (BEAKER) (test code = 754) 9.9 fL 9.4-12 .4 NUCLEATED RED BLOOD CELLS (BEAKER) (test code = 413) 0 /100 WBC 0 -0 NEUTROPHILS RELATIVE PERCENT (BEAKER) (test code = 429) 70 % LYMPHOCYTES RELATIVE PERCENT (BEAKER) (test code = 430) 19 % MONOCYTES RELATIVE PERCENT (BEAKER) (test code = 431) 10 % EOSINOPHILS RELATIVE PERCENT (BEAKER) (test code = 432) 1 % BASOPHILS RELATIVE PERCENT (BEAKER) (test code = 437) 0 % NEUTROPHILS ABSOLUTE COUNT (BEAKER) (test code = 670) 5.97 K/ L 1.78-5.38 H LYMPHOCYTES ABSOLUTE COUNT (BEAKER) (test code = 414) 1.61 K/ L 1.32-3.57 MONOCYTES ABSOLUTE COUNT (BEAKER) (test code = 415) 0.83 K/ L 0. 30-0.82 H EOSINOPHILS ABSOLUTE COUNT (BEAKER) (test code = 416) 0.05 K/ L 0.04-0.54 BASOPHILS ABSOLUTE COUNT (BEAKER) (test code = 417) 0.01 K/ L 0. 01-0.08 IMMATURE GRANULOCYTES-RELATIVE PERCENT (BEAKER) (test code = 2801) 1 % 0-1 RAD, CHEST, 1 VIEW, NON [id number] 03:57:00Reason for exam:->s/p RIGHT decorticationShould this be performed at the bedside?->YesFINAL REPORT RAD, CHEST, 1 VIEW, NON DEPT INDICATION: s/p RIGHT decortication COMPARISON: Same day's examination. FINDINGS: Portable frontal view of the chest. IMPRESSION: Support Lines: Interval removal of the previously seen left-sided pigtail catheter. Interval removal of the enteric tube. Otherwise unchanged support apparatus. Lungs and pleura: Post surgical changes of a interval decortication/right pleurectomy. No definite pneumothorax. Unchanged heterogeneous bilateral right greater than left airspace opacities.. No left-s ided pneumothorax, small left pleural effusion. Left retrocardiac airspace opaci ty, is decreased in the interval. Heart and mediastinum: Stable contours. Addit ional findings: Subcutaneous emphysema along the right chest wall. Signed: Chad Marrero Verified Date/Time: 04/26/2020 03:57:32 Electronicall y signed by: CHAD GARCIA MD on 04/26/2020 03:57 AM POCT-GLUCOSE [id number] 00:24:00* Test Item Value Reference Range Interpretation Comments POC-GLUCOSE METER (BEAKER) (test code = 1538) 157 mg/dL 70-110 H : TESTED AT [address], [id number]: Pneumatic Tube Operator/Movie Actor ID = [id number] for IBENEME, EUCHERIA POCT-GLUCOSE [id number] 21:43:00* Test Item Value Reference Range Interpretation Comments POC-GLUCOSE METER (BEAKER) (test code = 1538) 226 mg/dL 70-110 H : TESTED AT [address], [address]: Pneumatic Tube Operator/Movie Actor ID = [id number] for IBENEME, EUCHERIA POCT-GLUCOSE [id number] 18:50:00* Test Item Value Reference Range Interpretation Comments POC-GLUCOSE METER (BEAKER) (test code = 1538) 237 mg/dL 70-110 H : TESTED AT [address], [address]: Pneumatic Tube Operator/Movie Actor ID = [id number] for WOODY VILLEDA, CHANGE G-TUBE TO G-J, W/ [id number] 15:12:00FINAL REPORT Procedure: Gastrostomy to gastrojejunostomy conversion. History: Gastroparesis. Difficulty alimentation. Research Biologist: Shweta Godfrey M.D. Warehouse And Receiving Supervisor: [place] Rob Modality: Sonography and fluoroscopy. DOSE REDUCTION: The examination was performed according to departmental dose-optimization program. Fluoro time: 8.3 minutes. Radiation dose: 339 mGy air Kerma. Number of images: 6 Sedation: No sedation. Vital signs were monitored throughout the procedure by a dedicated RN under direct superv ision of Dr. Godfrey, and remained stable. Anesthesia: [...] the procedure. The procedure room personnel used pe rsonal protective equipment. The operators used sterile gowns and gloves. The pa tient was laid supine on the procedure table. The surgical site was prepped with chlorhexidine gluconate and draped in the standard sterile fashion. Case Hardener radio graph was obtained. It showed the gastrostomy tube in the expected location. The re is Dobbhoff tube looped up in the gastric lumen. There is a left upper quadra nt/left pleural drain in place. Contrast injection was carried out through the G -tube. energy projects lead to opacification of the gastric fundus. Through the existing paras rostomy catheter, combination of a Kumpe catheter and Glidewire was used to nego tiate the gastric antrum and pylorus and advanced catheter and wire down the duo denum into jejunum. This was assisted by intermittent injection of contrast medi um and air. Over the catheter and wire, the existing surgical gastrostomy mushro om type catheter was removed by applying constant traction. The Kumpe catheter w as removed. Over the guidewire, a 22 [place] 45 cm long transgastric gastrojejuno stomy catheter was deployed. The balloon was inflated with 8 cc of water mixed w ith 1 cc of saline. Contrast injection confirmed satisfactory intraluminal posit ion of the gastric and jejunal parts. The retention disc was secured in position with Prolene suture. The patient was transferred from the radiology department in stable condition back to the ICU. Complications: None imme diate. Findings: As above. Impression: Successful replacement of an existing surgical gastrostomy with a 22 [place]an tra nsgastric gastrojejunostomy catheter as described above. The jejunal port can be used immediately. The gastric port may be used after 24 hours. The Dobbhoff tub e should be removed. Thank you for the opportunity to assist in the care of your patient. Signed: Shweta Godfrey MDReport Verified Date/Time: 04/25/2020 15:12: 36 Reading Location: [facility] P048 Angio Body Reading Room Electronically viktoria d by: SHWETA GODFREY MD on 04/25/2020 03:12 PM IR G-Tube to G-J Tube [id number] 15:12:00Interface, External Ris In - 04/25/2020 3:14 PM CDTFINAL REPORT Procedure: Gastrostomy to gastrojejunostomy conversion. History: Gastroparesis. Difficulty alimentation. Research Biologist: Shweta Godfrey M.D. Warehouse And Receiving Supervisor: [place] Rob Modality: Sonography and fluoroscopy. DOSE [...] and draped in the standard sterile fashion. Case Hardener radiograph was obtained. It showed the gastrostomy tube in the expected location. There is Dobbhoff tube looped up in the gastric lumen. There is a left upper quadrant/left pleural drain in place. Contrast injection was carried out through the G-tube. energy projects lead to opacification of the gastric fundus. [...] was removed. Over the guidewire, a 22 [place]an 45 cm long transgastric gastrojejunostomy catheter was [...] an existing surgical gastrostomy with a 22 [place]an tra nsgastric gastrojejunostomy catheter as described above. The jejunal port can be used immediately. The gastric port may be used after 24 hours. The Dobbhoff tub e should be removed. Thank you for the opportunity to assist in the care of your patient. Signed: Shweta Godfrey MDReport Verified Date/Time: 04/25/2020 15:12: 36 Reading Location: [place] [address] Angio Body Reading Room Electronically viktoria d by: SHWETA GODFREY MD on 04/25/2020 03:12 PM [facility] [id number] 11:50:00* Test Item Value Reference Range Interpretation Comments POC-GLUCOSE METER (BEAKER) (test code = 1538) 263 mg/dL 70-110 H : TESTED AT [facility] [address] [place], [address]: Pneumatic Tube Operator/Movie Actor ID = [id number] for MARGARETH OWENS BLOOD GAS, [id number] 08:19:00* Test Item Value Reference Range Interpretation Comments PH ARTERIAL (BEAKER) (test code = 383) 7.44 7.35-7.45 PCO2 ARTERIAL (BEAKER) (test code = 384) 39 mmHg 35-45 PO2 ARTERIAL (BEAKER) (test code = 385) 115 mmHg 80-90 H O2 SATURATION ARTERIAL (BEAKER) (test code = 386) 98.2 % 96.0 -97.0 H HCO3 ARTERIAL (BEAKER) (test code = 388) 26 mmol/L 21-29 BASE EXCESS ARTERIAL (BEAKER) (test code = 387) 1.7 mmol/L -2.0-3 .0 PATIENT TEMPERATURE (BEAKER) (test code = 1818) 38.0 C FIO2 (BEAKER) (test code = 1819) 40.0 % BASIC METABOLIC [id number] 07:15:00* Test Item Value Reference Range Interpretation Comments SODIUM (BEAKER) (test code = 381) 139 meq/L 136-145 POTASSIUM (BEAKER) (test code = 379) 5.0 meq/L 3.5-5.1 CHLORIDE (BEAKER) (test code = 382) 108 meq/L 98-107 H CO2 (BEAKER) (test code = 355) 27 meq/L 22-29 BLOOD UREA NITROGEN (BEAKER) (test code = 354) 29 mg/dL 7-21 H CREATININE (BEAKER) (test code = 358) 0.98 mg/dL 0.57-1.25 GLUCOSE RANDOM (BEAKER) (test code = 652) 243 mg/dL 70-105 H CALCIUM (BEAKER) (test code = 697) 7.4 mg/dL 8.4-10.2 L EGFR (BEAKER) (test code = 1092) 87 mL/min/1.73 sq m ESTIMATED GFR IS NOT ACCURATE CREATININE CLEARANCE IN PREDICTING GLOMERULAR FILTRATION RATE. ESTIMATED GFR IS NOT APPLICABLE FOR DIALYSIS PATIENTS. Pneumatic Tube Operator ID - ELAINE [id number] 07:00:00* Test Item Value Reference Range Interpretation Comments PHOSPHORUS (BEAKER) (test code = 604) 3.5 mg/dL 2.3-4.7 Pneumatic Tube Operator ID - ELAINE [id number] 07:00:00* Test Item Value Reference Range Interpretation Comments MAGNESIUM (BEAKER) (test code = 627) 2.0 mg/dL 1.6-2.6 Pneumatic Tube Operator ID - ELAINE LCBC W/PLT COUNT & AUTO [id number] 05:57:00* Test Item Value Reference Range Interpretation Comments WHITE BLOOD CELL COUNT (BEAKER) (test code = 775) 12.8 K/ L 3.5- 10.5 H RED BLOOD CELL COUNT (BEAKER) (test code = 761) 3.01 M/ L 4.63-6 .08 L HEMOGLOBIN (BEAKER) (test code = 410) 7.2 GM/DL 13.7-17.5 L HEMATOCRIT (BEAKER) (test code = 411) 24.7 % 40.1-51.0 L MEAN CORPUSCULAR VOLUME (BEAKER) (test code = 753) 82.1 fL 79. 0-92.2 MEAN CORPUSCULAR HEMOGLOBIN (BEAKER) (test code = 751) 23.9 pg 25.7-32.2 L MEAN CORPUSCULAR HEMOGLOBIN CONC (BEAKER) (test code = 752) 29.1 GM/DL 32.3-36.5 L RED CELL DISTRIBUTION WIDTH (BEAKER) (test code = 412) 17.0 % 11.6-14.4 H PLATELET COUNT (BEAKER) (test code = 756) 320 K/CU MM 150-450 MEAN PLATELET VOLUME (BEAKER) (test code = 754) 9.4 fL 9.4-12 .4 NUCLEATED RED BLOOD CELLS (BEAKER) (test code = 413) 0 /100 WBC 0 -0 NEUTROPHILS RELATIVE PERCENT (BEAKER) (test code = 429) 77 % LYMPHOCYTES RELATIVE PERCENT (BEAKER) (test code = 430) 14 % MONOCYTES RELATIVE PERCENT (BEAKER) (test code = 431) 8 % EOSINOPHILS RELATIVE PERCENT (BEAKER) (test code = 432) 0 % BASOPHILS RELATIVE PERCENT (BEAKER) (test code = 437) 0 % NEUTROPHILS ABSOLUTE COUNT (BEAKER) (test code = 670) 9.88 K/ L 1.78-5.38 H LYMPHOCYTES ABSOLUTE COUNT (BEAKER) (test code = 414) 1.74 K/ L 1.32-3.57 MONOCYTES ABSOLUTE COUNT (BEAKER) (test code = 415) 1.06 K/ L 0. 30-0.82 H EOSINOPHILS ABSOLUTE COUNT (BEAKER) (test code = 416) 0.05 K/ L 0.04-0.54 BASOPHILS ABSOLUTE COUNT (BEAKER) (test code = 417) 0.01 K/ L 0. 01-0.08 IMMATURE GRANULOCYTES-RELATIVE PERCENT (BEAKER) (test code = 2801) 1 % 0-1 BLOOD GAS, [id number] 04:51:00* Test Item Value Reference Range Interpretation Comments PH ARTERIAL (BEAKER) (test code = 383) 7.37 7.35-7.45 PCO2 ARTERIAL (BEAKER) (test code = 384) 53 mmHg 35-45 H PO2 ARTERIAL (BEAKER) (test code = 385) 189 mmHg 80-90 H O2 SATURATION ARTERIAL (BEAKER) (test code = 386) 99.2 % 96.0 -97.0 H HCO3 ARTERIAL (BEAKER) (test code = 388) 30 mmol/L 21-29 H BASE EXCESS ARTERIAL (BEAKER) (test code = 387) 4.1 mmol/L -2.0-3 .0 H PATIENT TEMPERATURE (BEAKER) (test code = 1818) 38.0 C FIO2 (BEAKER) (test code = 1819) 90.0 % RAD, CHEST, 1 VIEW, NON [id number] 02:33:00Reason for exam:->chest tube in placeFINAL REPORT Chest one view. Clinical history: chest tube in place Comparison: Chest radiograph 04/24/2020, 8:28 PM. Technique: A single frontal view of the chest was obtained. Findings: Support lines and tubes are in satisfactory positions. The cardiomediastinal contours are stable. There are persistent diffuse bilateral airspace opacities. A small left pleural effusion may be present. There is no definite pneumothorax. There is subcutaneous emphysema in the right chest wall. Signed: Guadalupe Webbeped Verified Date/Time: 04/25/2020 02:33:17 /[id number] 22:44:00* Test Item Value Reference Range Interpretation Comments PROTIME (BEAKER) (test code = 759) 15.0 seconds 11.9-14.2 H INR (BEAKER) (test code = 370) 1.2 <=5.9 PARTIAL THROMBOPLASTIN TIME (BEAKER) (test code = 760) 32.4 seconds 22.5-36.0 Effective 04/21/2019: PT Reference Range ChangeNew: 11.9-14.2 Previous: 11.7-14. 7RECOMMENDED COUMADIN/WARFARIN INR THERAPY RANGESSTANDARD DOSE: 2.0-3.0 Include s: PROPHYLAXIS for venous thrombosis, systemic embolization; TREATMENT for venou s thrombosis and/or pulmonary embolus.HIGH RISK: Target INR is 2.5-3.5 for patie nts wiht mechanical heart valves.BASIC METABOLIC [id number] 22:28:00* Test Item Value Reference Range Interpretation Comments SODIUM (BEAKER) (test code = 381) 138 meq/L 136-145 POTASSIUM (BEAKER) (test code = 379) 5.3 meq/L 3.5-5.1 H CHLORIDE (BEAKER) (test code = 382) 106 meq/L 98-107 CO2 (BEAKER) (test code = 355) 25 meq/L 22-29 BLOOD UREA NITROGEN (BEAKER) (test code = 354) 25 mg/dL 7-21 H CREATININE (BEAKER) (test code = 358) 1.05 mg/dL 0.57-1.25 GLUCOSE RANDOM (BEAKER) (test code = 652) 283 mg/dL 70-105 H CALCIUM (BEAKER) (test code = 697) 7.9 mg/dL 8.4-10.2 L EGFR (BEAKER) (test code = 1092) 80 mL/min/1.73 sq m ESTIMATED GFR IS NOT ACCURATE CREATININE CLEARANCE IN PREDICTING GLOMERULAR FILTRATION RATE. ESTIMATED GFR IS NOT APPLICABLE FOR DIALYSIS PATIENTS. Pneumatic Tube Operator ID - [id number] 22:27:00* Test Item Value Reference Range Interpretation Comments PHOSPHORUS (BEAKER) (test code = 604) 5.1 mg/dL 2.3-4.7 H Pneumatic Tube Operator ID - [id number] 22:27:00* Test Item Value Reference Range Interpretation Comments MAGNESIUM (BEAKER) (test code = 627) 2.1 mg/dL 1.6-2.6 Pneumatic Tube Operator ID - DBCBC (HEMOGRAM ONLY)2020-04-24 22:03:00* Test Item Value Reference Range Interpretation Comments WHITE BLOOD CELL COUNT (BEAKER) (test code = 775) 18.9 K/ L 3.5- 10.5 H RED BLOOD CELL COUNT (BEAKER) (test code = 761) 3.34 M/ L 4.63-6 .08 L HEMOGLOBIN (BEAKER) (test code = 410) 8.2 GM/DL 13.7-17.5 L HEMATOCRIT (BEAKER) (test code = 411) 27.5 % 40.1-51.0 L MEAN CORPUSCULAR VOLUME (BEAKER) (test code = 753) 82.3 fL 79. 0-92.2 MEAN CORPUSCULAR HEMOGLOBIN (BEAKER) (test code = 751) 24.6 pg 25.7-32.2 L MEAN CORPUSCULAR HEMOGLOBIN CONC (BEAKER) (test code = 752) 29.8 GM/DL 32.3-36.5 L RED CELL DISTRIBUTION WIDTH (BEAKER) (test code = 412) 16.9 % 11.6-14.4 H PLATELET COUNT (BEAKER) (test code = 756) 378 K/CU MM 150-450 MEAN PLATELET VOLUME (BEAKER) (test code = 754) 9.5 fL 9.4-12 .4 NUCLEATED RED BLOOD CELLS (BEAKER) (test code = 413) 0 /100 WBC 0 -0 BLOOD GAS, [id number] 21:56:00* Test Item Value Reference Range Interpretation Comments PH ARTERIAL (BEAKER) (test code = 383) 7.35 7.35-7.45 PCO2 ARTERIAL (BEAKER) (test code = 384) 56 mmHg 35-45 H PO2 ARTERIAL (BEAKER) (test code = 385) 119 mmHg 80-90 H O2 SATURATION ARTERIAL (BEAKER) (test code = 386) 98.1 % 96.0 -97.0 H HCO3 ARTERIAL (BEAKER) (test code = 388) 30 mmol/L 21-29 H BASE EXCESS ARTERIAL (BEAKER) (test code = 387) 3.9 mmol/L -2.0-3 .0 H PATIENT TEMPERATURE (BEAKER) (test code = 1818) 37.0 C FIO2 (BEAKER) (test code = 1819) 90.0 % CALCIUM, [id number] 21:56:00* Test Item Value Reference Range Interpretation Comments CALCIUM IONIZED (BEAKER) (test code = 698) 1.08 mmol/L 1.12-1.27 L PH, BLOOD (BEAKER) (test code = 1810) 7.35 RAD, CHEST, 1 VIEW, NON [id number] 21:06:00Reason for exam:->s/p right decortication/pleurectomy for post-COVID trapped lungShould this be performed at the bedside?->YesFINAL REPORT RAD, CHEST, 1 VIEW, NON DEPT INDICATION: s/p right decortication/pleurectomy for post-COVID trapped lung COMPARISON: Same day's examination. FINDINGS: Portable frontal view of the chest. IMPRESSION: Support Lines: Interval placement of a new right basilar chest tube otherwise unchanged support apparatus. Lungs and pleura: Post surgical changes of a interval decortication/right pleurectomy with small right pneumothorax and unchanged heterogeneous bilateral right greater than left airspace opacities.. No left-sided pneumothorax, small left pleural effusion. Left retrocardiac airspace opacity, increased in the interval likely represents worsening left lower lobe collapse.Heart and mediastinum: Stable contours. Additional findings: New subcutaneous emphysema along the right chest wall. Signed: Chad Garcia [facility] Verified Date/Time: 04/24/2020 21:06:25 UM NA-STAT [id number] 17:33:00* Test Item Value Reference Range Interpretation Comments SODIUM (BEAKER) (test code = 381) 139 meq/L 136-145 POTASSIUM-STAT [id number] 17:33:00* Test Item Value Reference Range Interpretation Comments POTASSIUM (BEAKER) (test code = 379) 4.9 meq/L 3.6-5.5 CALCIUM, [id number] 17:33:00* Test Item Value Reference Range Interpretation Comments CALCIUM IONIZED (BEAKER) (test code = 698) 1.11 mmol/L 1.12-1.27 L PH, BLOOD (BEAKER) (test code = 1810) 7.27 GLUCOSE-STAT [id number] 17:33:00* Test Item Value Reference Range Interpretation Comments GLUCOSE RANDOM (BEAKER) (test code = 652) 196 mg/dL 70-110 H HGB/HCT (H&H) - STAT [id number] 17:33:00* Test Item Value Reference Range Interpretation Comments HEMOGLOBIN (BEAKER) (test code = 410) 8.5 g/dL 13.0-16.8 L HEMATOCRIT (BEAKER) (test code = 411) 25.0 % 40.0-50.0 L BLOOD GAS, [id number] 17:33:00* Test Item Value Reference Range Interpretation Comments PH ARTERIAL (BEAKER) (test code = 383) 7.27 7.35-7.45 L PCO2 ARTERIAL (BEAKER) (test code = 384) 70 mmHg 35-45 HH PO2 ARTERIAL (BEAKER) (test code = 385) 106 mmHg 80-90 H O2 SATURATION ARTERIAL (BEAKER) (test code = 386) 97.0 % 96.0 -97.0 HCO3 ARTERIAL (BEAKER) (test code = 388) 31 mmol/L 21-29 H BASE EXCESS ARTERIAL (BEAKER) (test code = 387) 3.1 mmol/L -2.0-3 .0 H PATIENT TEMPERATURE (BEAKER) (test code = 1818) 36.5 C FIO2 (BEAKER) (test code = 1819) 100.0 % GLUCOSE-STAT [id number] 16:57:00* Test Item Value Reference Range Interpretation Comments GLUCOSE RANDOM (BEAKER) (test code = 652) 192 mg/dL 70-110 H HGB/HCT (H&H) - STAT [id number] 16:57:00* Test Item Value Reference Range Interpretation Comments HEMOGLOBIN (BEAKER) (test code = 410) 8.9 g/dL 13.0-16.8 L HEMATOCRIT (BEAKER) (test code = 411) 26.0 % 40.0-50.0 L CALCIUM, [id number] 16:57:00* Test Item Value Reference Range Interpretation Comments CALCIUM IONIZED (BEAKER) (test code = 698) 1.13 mmol/L 1.12-1.27 PH, BLOOD (BEAKER) (test code = 1810) 7.26 BLOOD GAS, [id number] 16:57:00* Test Item Value Reference Range Interpretation Comments PH ARTERIAL (BEAKER) (test code = 383) 7.26 7.35-7.45 L PCO2 ARTERIAL (BEAKER) (test code = 384) 73 mmHg 35-45 HH PO2 ARTERIAL (BEAKER) (test code = 385) 229 mmHg 80-90 H O2 SATURATION ARTERIAL (BEAKER) (test code = 386) 99.3 % 96.0 -97.0 H HCO3 ARTERIAL (BEAKER) (test code = 388) 32 mmol/L 21-29 H BASE EXCESS ARTERIAL (BEAKER) (test code = 387) 3.6 mmol/L -2.0-3 .0 H PATIENT TEMPERATURE (BEAKER) (test code = 1818) 36.5 C FIO2 (BEAKER) (test code = 1819) 100.0 % SODIUM NA-STAT [id number] 16:56:00* Test Item Value Reference Range Interpretation Comments SODIUM (BEAKER) (test code = 381) 139 meq/L 136-145 POTASSIUM-STAT [id number] 16:56:00* Test Item Value Reference Range Interpretation Comments POTASSIUM (BEAKER) (test code = 379) 4.6 meq/L 3.6-5.5 POCT-GLUCOSE [id number] 06:27:00* Test Item Value Reference Range Interpretation Comments POC-GLUCOSE METER (BEAKER) (test code = 1538) 158 mg/dL 70-110 H : TESTED AT [address], [address]: Pneumatic Tube Operator/Movie Actor ID = [id number] CURT Agarwal BASIC METABOLIC [id number] 05:00:00* Test Item Value Reference Range Interpretation Comments SODIUM (BEAKER) (test code = 381) 141 meq/L 136-145 POTASSIUM (BEAKER) (test code = 379) 4.3 meq/L 3.5-5.1 CHLORIDE (BEAKER) (test code = 382) 104 meq/L 98-107 CO2 (BEAKER) (test code = 355) 32 meq/L 22-29 H BLOOD UREA NITROGEN (BEAKER) (test code = 354) 16 mg/dL 7-21 CREATININE (BEAKER) (test code = 358) 0.78 mg/dL 0.57-1.25 GLUCOSE RANDOM (BEAKER) (test code = 652) 159 mg/dL 70-105 H CALCIUM (BEAKER) (test code = 697) 7.9 mg/dL 8.4-10.2 L EGFR (BEAKER) (test code = 1092) 113 mL/min/1.73 sq m ESTIMATED GFR IS NOT ACCURATE CREATININE CLEARANCE IN PREDICTING GLOMERULAR FILTRATION RATE. ESTIMATED GFR IS NOT APPLICABLE FOR DIALYSIS PATIENTS. Pneumatic Tube Operator ID - PIAYA [id number] 04:54:00* Test Item Value Reference Range Interpretation Comments Triglycerides (test code = 2571-8) 144 mg/dL ROSALIO (test code = ROSALIO) TRIGLYCERIDE REFERENCE RANGE Low Risk <150Borderline Risk 150-199High Risk 200-499Very High Risk >=500Operator ID - ELAINE L [facility] 04:54:00* Test Item Value Reference Range Interpretation Comments TRIGLYCERIDES (BEAKER) (test code = 540) 144 mg/dL TRIGLYCERIDE REFERENCE RANGELow Risk <150Borderline Risk 150-199High Risk 200- 499Very High Risk >=500Operator ID - PIAYA [id number] 04:54:00* Test Item Value Reference Range Interpretation Comments MAGNESIUM (BEAKER) (test code = 627) 1.9 mg/dL 1.6-2.6 Pneumatic Tube Operator ID - PIFOX [id number] 04:54:00* Test Item Value Reference Range Interpretation Comments PHOSPHORUS (BEAKER) (test code = 604) 2.9 mg/dL 2.3-4.7 Pneumatic Tube Operator ID - ELAINE LCBC W/PLT COUNT & AUTO [id number] 04:21:00* Test Item Value Reference Range Interpretation Comments WHITE BLOOD CELL COUNT (BEAKER) (test code = 775) 6.6 K/ L 3.5- 10.5 RED BLOOD CELL COUNT (BEAKER) (test code = 761) 3.12 M/ L 4.63-6 .08 L HEMOGLOBIN (BEAKER) (test code = 410) 7.5 GM/DL 13.7-17.5 L HEMATOCRIT (BEAKER) (test code = 411) 25.2 % 40.1-51.0 L MEAN CORPUSCULAR VOLUME (BEAKER) (test code = 753) 80.8 fL 79. 0-92.2 MEAN CORPUSCULAR HEMOGLOBIN (BEAKER) (test code = 751) 24.0 pg 25.7-32.2 L MEAN CORPUSCULAR HEMOGLOBIN CONC (BEAKER) (test code = 752) 29.8 GM/DL 32.3-36.5 L RED CELL DISTRIBUTION WIDTH (BEAKER) (test code = 412) 16.7 % 11.6-14.4 H PLATELET COUNT (BEAKER) (test code = 756) 307 K/CU MM 150-450 MEAN PLATELET VOLUME (BEAKER) (test code = 754) 9.1 fL 9.4-12 .4 L NUCLEATED RED BLOOD CELLS (BEAKER) (test code = 413) 0 /100 WBC 0 -0 NEUTROPHILS RELATIVE PERCENT (BEAKER) (test code = 429) 70 % LYMPHOCYTES RELATIVE PERCENT (BEAKER) (test code = 430) 18 % MONOCYTES RELATIVE PERCENT (BEAKER) (test code = 431) 10 % EOSINOPHILS RELATIVE PERCENT (BEAKER) (test code = 432) 2 % BASOPHILS RELATIVE PERCENT (BEAKER) (test code = 437) 0 % NEUTROPHILS ABSOLUTE COUNT (BEAKER) (test code = 670) 4.60 K/ L 1.78-5.38 LYMPHOCYTES ABSOLUTE COUNT (BEAKER) (test code = 414) 1.21 K/ L 1.32-3.57 L MONOCYTES ABSOLUTE COUNT (BEAKER) (test code = 415) 0.63 K/ L 0. 30-0.82 EOSINOPHILS ABSOLUTE COUNT (BEAKER) (test code = 416) 0.12 K/ L 0.04-0.54 BASOPHILS ABSOLUTE COUNT (BEAKER) (test code = 417) 0.00 K/ L 0. 01-0.08 L IMMATURE GRANULOCYTES-RELATIVE PERCENT (BEAKER) (test code = 2801) 0 % 0-1 RAD, CHEST, 1 VIEW, NON [id number] 04:19:00Reason for exam:->chest tube in placeFINAL REPORT RAD, CHEST, 1 VIEW, NON DEPT INDICATION: chest tube in place COMPARISON: Prior day's exam FINDINGS: Portable frontal view of the chest. IMPRESSION: Support Lines: Stable. Lungs and pleura: Unchanged airspace and pleural opacities. Possible right apical pneumothorax.Heart and mediastinum: Stable contours. Additional findings: None. Signed: Chad Garcia Verified Date/Time: 04/24/2020 04:19:43 -GLUCOSE [id number] 00:30:00* Test Item Value Reference Range Interpretation Comments POC-GLUCOSE METER (BEAKER) (test code = 1538) 120 mg/dL 70-110 H : TESTED AT [address], [address]: Pneumatic Tube Operator/Movie Actor ID = [id number] for KITTY CURT POCT-GLUCOSE [id number] 18:51:00* Test Item Value Reference Range Interpretation Comments POC-GLUCOSE METER (BEAKER) (test code = 1538) 95 mg/dL 70-110 : TESTED AT [address], [address]: Pneumatic Tube Operator/Movie Actor ID = [id number] for JUAN TREVINO POCT-GLUCOSE [id number] 12:24:00* Test Item Value Reference Range Interpretation Comments POC-GLUCOSE METER (BEAKER) (test code = 1538) 107 mg/dL 70-110 : TESTED AT [address], [address]: Pneumatic Tube Operator/Movie Actor ID = [id number] for DEREK HAILY POCT-GLUCOSE [id number] 07:02:00* Test Item Value Reference Range Interpretation Comments POC-GLUCOSE METER (BEAKER) (test code = 1538) 115 mg/dL 70-110 H : TESTED AT [facility] [address], [address]: Pneumatic Tube Operator/Movie Actor ID = [id number] for KAYLEEN RAE RAD, ABDOMEN/KUB, 1 VIEW [id number] 04:48:00Reason for exam:->dobhoffShould this be performed at the bedside?->YesFINAL REPORT Abdomen one view Comparison: Abdominal radiograph 04/22/2020, 1:26 PM. Reason for exam: dobhoff Findings: Supine view of the abdomen demonstrates a weighted feeding tube coiled in the stomach with tip in the distal gastric body. There is a gastrostomy tube in place. There is no bowel obstruction. Signed: Guadalupe Webb Verified Date/Time: 04/23/2020 04:48:14 , CHEST, 1 VIEW, NON [id number] 04:44:00Reason for exam:->chest tube in placeFINAL REPORT Chest one view. Clinical history: chest tube in place Comparison: Chest radiograph 04/22/2020. Technique: A single frontal view of the chest was obtained. Findings:Support lines and tubes are in satisfactory positions.The cardiomediastinal contours are stable. There are diffuse bilateral airspace opacities, increased in the interval. There is a small right pleural effusion. There is no pneumothorax. Signed: Guadalupe Webb Verified Date/Time: 04/23/2020 04:44:11 D GAS, [id number] 04:39:00* Test Item Value Reference Range Interpretation Comments PH ARTERIAL (BEAKER) (test code = 383) 7.46 7.35-7.45 H PCO2 ARTERIAL (BEAKER) (test code = 384) 49 mmHg 35-45 H PO2 ARTERIAL (BEAKER) (test code = 385) 141 mmHg 80-90 H O2 SATURATION ARTERIAL (BEAKER) (test code = 386) 98.9 % 96.0 -97.0 H HCO3 ARTERIAL (BEAKER) (test code = 388) 34 mmol/L 21-29 H BASE EXCESS ARTERIAL (BEAKER) (test code = 387) 9.0 mmol/L -2.0-3 .0 H PATIENT TEMPERATURE (BEAKER) (test code = 1818) 37.5 C FIO2 (BEAKER) (test code = 1819) 40.0 % [id number] 04:38:00* Test Item Value Reference Range Interpretation Comments MAGNESIUM (BEAKER) (test code = 627) 1.8 mg/dL 1.6-2.6 Specimen slightly hemolyzed Pneumatic Tube Operator ID - ELAINE [id number] 04:38:00* Test Item Value Reference Range Interpretation Comments PHOSPHORUS (BEAKER) (test code = 604) 3.2 mg/dL 2.3-4.7 Specimen slightly hemolyzed Pneumatic Tube Operator ID - ELAINE LBASIC METABOLIC [id number] 04:38:00* Test Item Value Reference Range Interpretation Comments SODIUM (BEAKER) (test code = 381) 143 meq/L 136-145 POTASSIUM (BEAKER) (test code = 379) 4.2 meq/L 3.5-5.1 Specimen slightly hemolyzed CHLORIDE (BEAKER) (test code = 382) 103 meq/L 98-107 CO2 (BEAKER) (test code = 355) 31 meq/L 22-29 H BLOOD UREA NITROGEN (BEAKER) (test code = 354) 15 mg/dL 7-21 CREATININE (BEAKER) (test code = 358) 0.81 mg/dL 0.57-1.25 Specimen slightly hemolyzed GLUCOSE RANDOM (BEAKER) (test code = 652) 126 mg/dL 70-105 H CALCIUM (BEAKER) (test code = 697) 8.1 mg/dL 8.4-10.2 L EGFR (BEAKER) (test code = 1092) 108 mL/min/1.73 sq m ESTIMATED GFR IS NOT ACCURATE CREATININE CLEARANCE IN PREDICTING GLOMERULAR FILTRATION RATE. ESTIMATED GFR IS NOT APPLICABLE FOR DIALYSIS PATIENTS. Pneumatic Tube Operator ID - ELAINE LCBC W/PLT COUNT & AUTO [id number] 04:13:00* Test Item Value Reference Range Interpretation Comments WHITE BLOOD CELL COUNT (BEAKER) (test code = 775) 6.7 K/ L 3.5- 10.5 RED BLOOD CELL COUNT (BEAKER) (test code = 761) 3.04 M/ L 4.63-6 .08 L HEMOGLOBIN (BEAKER) (test code = 410) 7.5 GM/DL 13.7-17.5 L HEMATOCRIT (BEAKER) (test code = 411) 24.6 % 40.1-51.0 L MEAN CORPUSCULAR VOLUME (BEAKER) (test code = 753) 80.9 fL 79. 0-92.2 MEAN CORPUSCULAR HEMOGLOBIN (BEAKER) (test code = 751) 24.7 pg 25.7-32.2 L MEAN CORPUSCULAR HEMOGLOBIN CONC (BEAKER) (test code = 752) 30.5 GM/DL 32.3-36.5 L RED CELL DISTRIBUTION WIDTH (BEAKER) (test code = 412) 16.7 % 11.6-14.4 H PLATELET COUNT (BEAKER) (test code = 756) 323 K/CU MM 150-450 MEAN PLATELET VOLUME (BEAKER) (test code = 754) 9.7 fL 9.4-12 .4 NUCLEATED RED BLOOD CELLS (BEAKER) (test code = 413) 0 /100 WBC 0 -0 NEUTROPHILS RELATIVE PERCENT (BEAKER) (test code = 429) 68 % LYMPHOCYTES RELATIVE PERCENT (BEAKER) (test code = 430) 19 % MONOCYTES RELATIVE PERCENT (BEAKER) (test code = 431) 10 % EOSINOPHILS RELATIVE PERCENT (BEAKER) (test code = 432) 2 % BASOPHILS RELATIVE PERCENT (BEAKER) (test code = 437) 0 % NEUTROPHILS ABSOLUTE COUNT (BEAKER) (test code = 670) 4.54 K/ L 1.78-5.38 LYMPHOCYTES ABSOLUTE COUNT (BEAKER) (test code = 414) 1.28 K/ L 1.32-3.57 L MONOCYTES ABSOLUTE COUNT (BEAKER) (test code = 415) 0.69 K/ L 0. 30-0.82 EOSINOPHILS ABSOLUTE COUNT (BEAKER) (test code = 416) 0.10 K/ L 0.04-0.54 BASOPHILS ABSOLUTE COUNT (BEAKER) (test code = 417) 0.02 K/ L 0. 01-0.08 IMMATURE GRANULOCYTES-RELATIVE PERCENT (BEAKER) (test code = 2801) 1 % 0-1 POCT-GLUCOSE [id number] 01:10:00* Test Item Value Reference Range Interpretation Comments POC-GLUCOSE METER (BEAKER) (test code = 1538) 133 mg/dL 70-110 H : TESTED AT [facility] [address], [address]: Pneumatic Tube Operator/Movie Actor ID = [id number] for KAYLEEN RAE RAD, ABDOMEN/KUB, 1 VIEW [id number] 13:52:00Reason for exam:->corpak placement verificationShould this be performed at the bedside?->YesFINAL REPORT RAD, ABDOMEN/KUB, 1 VIEW AP COMPARISON: To prior examinations with time stamps less than one hour prior INDICATION: corpak placement verification IMPRESSION:Positioning and curling of the feeding tube previously described is unchanged. The bowel gas pattern remains unremarkable. Signed: JR Escamilla Robert MDReport Verified Date/Time: 04/22/2020 13:52:28 R eading Location: [address] Neuro Reading Room , ABDOMEN/KUB, 1 VIEW AP 2020-04-22 13:51:00Reason for exam:->corpak placement verificationFINAL REPORT RAD, ABDOMEN/KUB, 1 VIEW AP COMPARISON: Less than one hour prior INDICATION: corpak placement verification IMPRESSION:A feeding tube has been placed. Positioning is unchanged from the prior examination. There is at least one complete loop within the gastric body. The guidewire remains in situ. Signed: JR Escamilla Robert MDReport Verified Date/Time: 04/22/2020 13:51:41 Reading Location: [address] Neuro Reading Room , ABDOMEN/KUB, 1 VIEW [id number] 13:51:00Reason for exam:->SP corpak placement verificationShould this be performed at the bedside?->YesAddendum BeginsREPORT STATUS:A Addendum: The below provided report was created on imaging alone into a different patient, currently unknown. A correction was made with the current imaging, incompletely demonstrating a Corpak curled in the gastric lumen. The feeding tube projects over the left upper quadrant. There is no dilated bowel loops. Signed: JR Escamilla Robert MDReport Verified Date/Time: 04/22/2020 13:51:11 Reading Location: [address] Neuro Reading RoomAddendum EndsFINAL REPORT RAD, ABDOMEN/KUB, 1 VIEW AP CLINICAL INDICATION: SP corpak placement verification COMPARISON: 7 hours prior TECHNIQUE: Single, frontal radiograph of the abdomen. IMPRESSION: The bowel gas pattern is nonspecific, but nonobstructive. A nasogastric tube side- port is beyond the expected location of the GE junction over the left upper quadrant. The feeding tube is not present in the provided images. The regional skeleton is intact. Signed: JR Escamilla Robert MDReport Verified Date/Ti me: 04/22/2020 12:53:57 Reading Location: [address] Neuro Reading Room El ectronically signed by: SHELLIE ESCAMILLA on 04/22/2020 01:51 PM POCT- GLUCOSE [id number] 13:14:00* Test Item Value Reference Range Interpretation Comments POC-GLUCOSE METER (BEAKER) (test code = 1538) 116 mg/dL 70-110 H : TESTED AT [facility] [address], [address]: Pneumatic Tube Operator/Movie Actor ID = [id number] for VAMSHI BRENNAN [id number] 05:57:00* Test Item Value Reference Range Interpretation Comments PHOSPHORUS (BEAKER) (test code = 604) 3.0 mg/dL 2.3-4.7 Pneumatic Tube Operator ID - ELAINE [id number] 05:57:00* Test Item Value Reference Range Interpretation Comments MAGNESIUM (BEAKER) (test code = 627) 2.1 mg/dL 1.6-2.6 Pneumatic Tube Operator ID - ELAINE LBASIC METABOLIC [id number] 05:57:00* Test Item Value Reference Range Interpretation Comments SODIUM (BEAKER) (test code = 381) 143 meq/L 136-145 POTASSIUM (BEAKER) (test code = 379) 4.2 meq/L 3.5-5.1 CHLORIDE (BEAKER) (test code = 382) 106 meq/L 98-107 CO2 (BEAKER) (test code = 355) 31 meq/L 22-29 H BLOOD UREA NITROGEN (BEAKER) (test code = 354) 22 mg/dL 7-21 H CREATININE (BEAKER) (test code = 358) 0.96 mg/dL 0.57-1.25 GLUCOSE RANDOM (BEAKER) (test code = 652) 131 mg/dL 70-105 H CALCIUM (BEAKER) (test code = 697) 8.7 mg/dL 8.4-10.2 EGFR (BEAKER) (test code = 1092) 89 mL/min/1.73 sq m ESTIMATED GFR IS NOT ACCURATE CREATININE CLEARANCE IN PREDICTING GLOMERULAR FILTRATION RATE. ESTIMATED GFR IS NOT APPLICABLE FOR DIALYSIS PATIENTS. Pneumatic Tube Operator ID - PIAYA LRAD, ABDOMEN/KUB, 1 VIEW [id number] 05:26:00Reason for exam:->IleusFINAL REPORT CLINICAL HISTORY: Ileus TECHNIQUE: RAD, ABDOMEN/KUB, 1 VIEW AP COMPARISON: Plain radiograph the abdomen dated 04/19/2020. IMPRESSION: Percutaneous gastrostomy tube overlying the gastric antrum. Interval removal of the previously seen weighted tip feeding tube. Bilateral pleural pigtail catheters in the lung bases.Nonobstructive bowel gas pattern without distended loops of bowel. Heterogeneous airspace opacity in the right lung base. Signed: Chad Garcia Verified Date/Time: 04/22/2020 05:26:09 W/PLT COUNT & AUTO [id number] 05:18:00* Test Item Value Reference Range Interpretation Comments WHITE BLOOD CELL COUNT (BEAKER) (test code = 775) 9.4 K/ L 3.5- 10.5 RED BLOOD CELL COUNT (BEAKER) (test code = 761) 3.14 M/ L 4.63-6 .08 L HEMOGLOBIN (BEAKER) (test code = 410) 7.9 GM/DL 13.7-17.5 L HEMATOCRIT (BEAKER) (test code = 411) 25.8 % 40.1-51.0 L MEAN CORPUSCULAR VOLUME (BEAKER) (test code = 753) 82.2 fL 79. 0-92.2 MEAN CORPUSCULAR HEMOGLOBIN (BEAKER) (test code = 751) 25.2 pg 25.7-32.2 L MEAN CORPUSCULAR HEMOGLOBIN CONC (BEAKER) (test code = 752) 30.6 GM/DL 32.3-36.5 L RED CELL DISTRIBUTION WIDTH (BEAKER) (test code = 412) 16.7 % 11.6-14.4 H PLATELET COUNT (BEAKER) (test code = 756) 357 K/CU MM 150-450 MEAN PLATELET VOLUME (BEAKER) (test code = 754) 10.1 fL 9.4-12 .4 NUCLEATED RED BLOOD CELLS (BEAKER) (test code = 413) 0 /100 WBC 0 -0 NEUTROPHILS RELATIVE PERCENT (BEAKER) (test code = 429) 74 % LYMPHOCYTES RELATIVE PERCENT (BEAKER) (test code = 430) 16 % MONOCYTES RELATIVE PERCENT (BEAKER) (test code = 431) 8 % EOSINOPHILS RELATIVE PERCENT (BEAKER) (test code = 432) 1 % BASOPHILS RELATIVE PERCENT (BEAKER) (test code = 437) 0 % NEUTROPHILS ABSOLUTE COUNT (BEAKER) (test code = 670) 6.94 K/ L 1.78-5.38 H LYMPHOCYTES ABSOLUTE COUNT (BEAKER) (test code = 414) 1.53 K/ L 1.32-3.57 MONOCYTES ABSOLUTE COUNT (BEAKER) (test code = 415) 0.76 K/ L 0. 30-0.82 EOSINOPHILS ABSOLUTE COUNT (BEAKER) (test code = 416) 0.08 K/ L 0.04-0.54 BASOPHILS ABSOLUTE COUNT (BEAKER) (test code = 417) 0.02 K/ L 0. 01-0.08 IMMATURE GRANULOCYTES-RELATIVE PERCENT (BEAKER) (test code = 2801) 1 % 0-1 BLOOD GAS, [id number] 04:54:00* Test Item Value Reference Range Interpretation Comments PH ARTERIAL (BEAKER) (test code = 383) 7.44 7.35-7.45 PCO2 ARTERIAL (BEAKER) (test code = 384) 49 mmHg 35-45 H PO2 ARTERIAL (BEAKER) (test code = 385) 127 mmHg 80-90 H O2 SATURATION ARTERIAL (BEAKER) (test code = 386) 98.6 % 96.0 -97.0 H HCO3 ARTERIAL (BEAKER) (test code = 388) 33 mmol/L 21-29 H BASE EXCESS ARTERIAL (BEAKER) (test code = 387) 7.8 mmol/L -2.0-3 .0 H PATIENT TEMPERATURE (BEAKER) (test code = 1818) 37.5 C FIO2 (BEAKER) (test code = 1819) 50.0 % RAD, CHEST, 1 VIEW, NON [id number] 04:25:00Reason for exam:->chest tube in placeFINAL REPORT RAD, CHEST, 1 VIEW, NON DEPT INDICATION: chest tube in place COMPARISON: Prior day's exam FINDINGS: Portable frontal view of the chest. IMPRESSION: Support Lines: Interval removal of the previously seen enteric tube. Otherwise unchanged support apparatus. Lungs and pleura: Increased left retrocardiac airspace opacity likely represents worsening left lower lobe collapse. Unchanged bilateral heterogeneous airspace opacities, right greater than left. Small bilateral pleural effusions with trace right pneumothorax component.Heart and mediastinum: Stable contours. Additional findings: None. Signed: Chad Garcia Verified Date/Time: 04/22/2020 04:25:32 -GLUCOSE [id number] 00:09:00* Test Item Value Reference Range Interpretation Comments POC-GLUCOSE METER (BEAKER) (test code = 1538) 142 mg/dL 70-110 H : TESTED AT [address], [address]: Pneumatic Tube Operator/Movie Actor ID = [id number] for PIPPA JUAREZ BLOOD [id number] 14:00:00* Test Item Value Reference Range Interpretation Comments CULTURE (BEAKER) (test code = 1095) No growth in 5 days BLOOD [id number] 14:00:00* Test Item Value Reference Range Interpretation Comments CULTURE (BEAKER) (test code = 1095) No growth in 5 days BLOOD GAS, [id number] 13:34:00* Test Item Value Reference Range Interpretation Comments PH ARTERIAL (BEAKER) (test code = 383) 7.39 7.35-7.45 PCO2 ARTERIAL (BEAKER) (test code = 384) 55 mmHg 35-45 H PO2 ARTERIAL (BEAKER) (test code = 385) 151 mmHg 80-90 H O2 SATURATION ARTERIAL (BEAKER) (test code = 386) 98.9 % 96.0 -97.0 H HCO3 ARTERIAL (BEAKER) (test code = 388) 33 mmol/L 21-29 H BASE EXCESS ARTERIAL (BEAKER) (test code = 387) 6.8 mmol/L -2.0-3 .0 H PATIENT TEMPERATURE (BEAKER) (test code = 1818) 37.0 C FIO2 (BEAKER) (test code = 1819) 60.0 % POCT-GLUCOSE [id number] 13:22:00* Test Item Value Reference Range Interpretation Comments POC-GLUCOSE METER (BEAKER) (test code = 1538) 164 mg/dL 70-110 H : TESTED AT [facility] [address], [address]: Pneumatic Tube Operator/Movie Actor ID = [id number] for VAMSHI BRENNAN TROPONIN [id number] 12:49:00* Test Item Value Reference Range Interpretation Comments TROPONIN I (BEAKER) (test code = 397) < ng/mL 0.00-0.03 Troponin I (TnI) levels must be interpreted in the context of the presenting sym ptoms and the clinical findings. Elevated TnI levels indicate myocardial damage, but are not specific for ischemic heart disease. Elevated TnI levels are seen i n patients with other cardiac conditions (including myocarditis and congestive h eart failure), and slight TnI elevations occur in patients with other conditions , including sepsis, renal failure, acidosis, acute neurological disease, and per sistent tachyarrhythmia.Pneumatic Tube Operator ID - [id number] 12:47:00* Test Item Value Reference Range Interpretation Comments PHOSPHORUS (BEAKER) (test code = 604) 5.1 mg/dL 2.3-4.7 H Pneumatic Tube Operator ID - [id number] 12:47:00* Test Item Value Reference Range Interpretation Comments MAGNESIUM (BEAKER) (test code = 627) 2.5 mg/dL 1.6-2.6 Pneumatic Tube Operator ID - NTPBASIC METABOLIC [id number] 12:47:00* Test Item Value Reference Range Interpretation Comments SODIUM (BEAKER) (test code = 381) 142 meq/L 136-145 POTASSIUM (BEAKER) (test code = 379) 4.8 meq/L 3.5-5.1 CHLORIDE (BEAKER) (test code = 382) 106 meq/L 98-107 CO2 (BEAKER) (test code = 355) 31 meq/L 22-29 H BLOOD UREA NITROGEN (BEAKER) (test code = 354) 27 mg/dL 7-21 H CREATININE (BEAKER) (test code = 358) 1.09 mg/dL 0.57-1.25 GLUCOSE RANDOM (BEAKER) (test code = 652) 213 mg/dL 70-105 H CALCIUM (BEAKER) (test code = 697) 9.5 mg/dL 8.4-10.2 EGFR (BEAKER) (test code = 1092) 77 mL/min/1.73 sq m ESTIMATED GFR IS NOT ACCURATE CREATININE CLEARANCE IN PREDICTING GLOMERULAR FILTRATION RATE. ESTIMATED GFR IS NOT APPLICABLE FOR DIALYSIS PATIENTS. Pneumatic Tube Operator ID - NTPLactic Acid, [id number] 12:38:00* Test Item Value Reference Range Interpretation Comments Lactate, Art (test code = 2874) 0.8 mmol/L 0.5-2.2 ROSALIO (test code = ROSALIO) Pneumatic Tube Operator ID - NTP Lab Interpretation (test code = 44051-2) [facility] Center[facility]CT[facility] ACID, [id number] 12:38:00* Test Item Value Reference Range Interpretation Comments LACTATE BLOOD ARTERIAL (2) (BEAKER) (test code = 2874) 0.8 mmol/L 0.5-2.2 Pneumatic Tube Operator ID - [id number] 12:33:00* Test Item Value Reference Range Interpretation Comments PROTIME (BEAKER) (test code = 759) 15.8 seconds 11.9-14.2 H INR (BEAKER) (test code = 370) 1.3 <=5.9 PARTIAL THROMBOPLASTIN TIME (BEAKER) (test code = 760) 28.4 seconds 22.5-36.0 Effective 04/21/2019: PT Reference Range ChangeNew: 11.9-14.2 Previous: 11.7-14. 7RECOMMENDED COUMADIN/WARFARIN INR THERAPY RANGESSTANDARD DOSE: 2.0-3.0 Include s: PROPHYLAXIS for venous thrombosis, systemic embolization; TREATMENT for venou s thrombosis and/or pulmonary embolus.HIGH RISK: Target INR is 2.5-3.5 for patie nts wiht mechanical heart valves.CBC W/PLT COUNT & AUTO [id number] 12:21:00* Test Item Value Reference Range Interpretation Comments WHITE BLOOD CELL COUNT (BEAKER) (test code = 775) 6.4 K/ L 3.5- 10.5 RED BLOOD CELL COUNT (BEAKER) (test code = 761) 3.13 M/ L 4.63-6 .08 L HEMOGLOBIN (BEAKER) (test code = 410) 7.8 GM/DL 13.7-17.5 L HEMATOCRIT (BEAKER) (test code = 411) 26.7 % 40.1-51.0 L MEAN CORPUSCULAR VOLUME (BEAKER) (test code = 753) 85.3 fL 79. 0-92.2 MEAN CORPUSCULAR HEMOGLOBIN (BEAKER) (test code = 751) 24.9 pg 25.7-32.2 L MEAN CORPUSCULAR HEMOGLOBIN CONC (BEAKER) (test code = 752) 29.2 GM/DL 32.3-36.5 L RED CELL DISTRIBUTION WIDTH (BEAKER) (test code = 412) 16.6 % 11.6-14.4 H PLATELET COUNT (BEAKER) (test code = 756) 297 K/CU MM 150-450 MEAN PLATELET VOLUME (BEAKER) (test code = 754) 10.1 fL 9.4-12 .4 NUCLEATED RED BLOOD CELLS (BEAKER) (test code = 413) 0 /100 WBC 0 -0 NEUTROPHILS RELATIVE PERCENT (BEAKER) (test code = 429) 63 % LYMPHOCYTES RELATIVE PERCENT (BEAKER) (test code = 430) 28 % MONOCYTES RELATIVE PERCENT (BEAKER) (test code = 431) 7 % EOSINOPHILS RELATIVE PERCENT (BEAKER) (test code = 432) 1 % BASOPHILS RELATIVE PERCENT (BEAKER) (test code = 437) 0 % NEUTROPHILS ABSOLUTE COUNT (BEAKER) (test code = 670) 4.06 K/ L 1.78-5.38 LYMPHOCYTES ABSOLUTE COUNT (BEAKER) (test code = 414) 1.83 K/ L 1.32-3.57 MONOCYTES ABSOLUTE COUNT (BEAKER) (test code = 415) 0.43 K/ L 0. 30-0.82 EOSINOPHILS ABSOLUTE COUNT (BEAKER) (test code = 416) 0.06 K/ L 0.04-0.54 BASOPHILS ABSOLUTE COUNT (BEAKER) (test code = 417) 0.01 K/ L 0. 01-0.08 IMMATURE GRANULOCYTES-RELATIVE PERCENT (BEAKER) (test code = 2801) 1 % 0-1 RAD, CHEST, 1 VIEW, NON [id number] 12:16:00Reason for exam:->codedFINAL REPORT CLINICAL HISTORY: coded TECHNIQUE: 1 view of the chest. COMPARISON: 04/21/2020 IMPRESSION: There has been interval placement of a large-bore right chest tube alongside a right pigtail catheter, with substantial reexpansion of the previous large right-sided hydropneumothorax. There are new diffuse right lung airspace opacities. A left lower chest pigtail catheter is again seen with mild left lung airspace opacities. There is no definitive ev idence for a left-sided pneumothorax. A tracheostomy tube, left PICC line, and f eeding tube remain in place. The cardiomediastinal silhouette is magnified by conor elwis. Signed: Edelmira Mendieta MDReport Verified Date/Time: 04/21/2020 12:16:44 Reading Location: [facility] Radiology Reading Room Electronically sign ed by: EDELMIRA MENDIETA M.D. on 04/21/2020 12:16 PM BLOOD GAS, [id number] 12:09:00* Test Item Value Reference Range Interpretation Comments PH ARTERIAL (BEAKER) (test code = 383) 7.32 7.35-7.45 L PCO2 ARTERIAL (BEAKER) (test code = 384) 62 mmHg 35-45 H PO2 ARTERIAL (BEAKER) (test code = 385) 278 mmHg 80-90 H O2 SATURATION ARTERIAL (BEAKER) (test code = 386) 99.6 % 96.0 -97.0 H HCO3 ARTERIAL (BEAKER) (test code = 388) 31 mmol/L 21-29 H BASE EXCESS ARTERIAL (BEAKER) (test code = 387) 4.1 mmol/L -2.0-3 .0 H PATIENT TEMPERATURE (BEAKER) (test code = 1818) 36.5 C FIO2 (BEAKER) (test code = 1819) 100.0 % POC-Blood gases, [id number] 11:48:00* Test Item Value Reference Range Interpretation Comments Temp. Celsius-POC (test code = 1834) FIO2-POC (test code = 1835) pH, Arterial-POC (test code = 1836) 7.240 7.350-7.450 L PCO2, Arterial-POC (test code = 1837) 76.1 35.0- 45.0 mm Hg HH PO2, Arterial-POC (test code = 1838) 191.0 80.0- 90.0 mm Hg H SO2, Arterial-POC (test code = 1839) 99.0 % 96-97 H HCO3, Arterilal-POC (test code = 1840) 32.6 meq/L 21-29 H BE, Arterial-POC (test code = 1841) 5.0 meq/L -2-3 H : TESTED AT [address], [address]: Pneumatic Tube Operator/Movie Actor ID = [id number] for MORENO MANUEL Lab Interpretation (test code = 98687-6) Abnormal [facility]-Calcium [id number] 11:48:00* Test Item Value Reference Range Interpretation Comments POC-Calcium Ionized (test code = 1536) 2.08 mmol/L 1.12-1.27 HH : TESTED AT [address], [address]: Pneumatic Tube Operator/Movie Actor ID = [id number] for MORENO MANUEL Lab Interpretation (test code = 23919-1) Abnormal [facility]-[id number] 11:48:00* Test Item Value Reference Range Interpretation Comments POC-Potassium (test code = 1540) 4.8 meq/L 3.6-5.5 : TESTED AT [address], [address]: Pneumatic Tube Operator/Movie Actor ID = [id number] for MORENO MANUEL Lab Interpretation (test code = 34097-0) Normal [facility]-[id number] 11:48:00* Test Item Value Reference Range Interpretation Comments POC-Sodium (test code = 1542) 141 meq/L 135-148 : TESTED AT [address], [address]: Pneumatic Tube Operator/Movie Actor ID = [id number] for MORENO MANUEL Lab Interpretation (test code = 06687-9) Normal [facility]-[id number] 11:48:00* Test Item Value Reference Range Interpretation Comments POC-Glucose (test code = 1855) 230 mg/dL 70-110 H : TESTED AT [place] [address], [address]: Pneumatic Tube Operator/Movie Actor ID = [id number] for MORENO MANUEL Lab Interpretation (test code = 60936-2) Abnormal [facility]-[id number] 11:48:00* Test Item Value Reference Range Interpretation Comments POC-Hemoglobin (test code = 1856) 8.8 g/dL 13-16.8 L : TESTED AT [place] [address], [address]: Pneumatic Tube Operator/Movie Actor ID = [id number] for MORENO MANUEL Lab Interpretation (test code = 38829-0) Abnormal [facility]-[id number] 11:48:00* Test Item Value Reference Range Interpretation Comments POC-Hematocrit (test code = 1857) 26 % 40-50 L : Pneumatic Tube Operator/Movie Actor ID = [id number] for MARMORENO Lab Interpretation (test code = 22718-8) Abnormal [facility]-BLOOD GASES, [id number] 11:48:00* Test Item Value Reference Range Interpretation Comments TEMP, CELSIUS-POC (BEAKER) (test code = 1834) FIO2-POC (BEAKER) (test code = 1835) PH, ARTERIAL-POC (BEAKER) (test code = 1836) 7.240 7.350-7.4 50 L PCO2, ARTERIAL-POC (BEAKER) (test code = 1837) 76.1 mm Hg 35.0-45 .0 HH PO2, ARTERIAL-POC (BEAKER) (test code = 1838) 191.0 mm Hg 80.0-90. 0 H SO2, ARTERIAL-POC (BEAKER) (test code = 1839) 99.0 % 96.0-97. 0 H HCO3, ARTERIAL-POC (BEAKER) (test code = 1840) 32.6 meq/L 21.0-29 .0 H BASE EXCESS, ARTERIAL-POC (BEAKER) (test code = 1841) 5.0 meq/L -2.0-3.0 H : TESTED AT [address], [address]: Pneumatic Tube Operator/Movie Actor ID = [id number] for MORENO MANUEL [id number] 11:48:00* Test Item Value Reference Range Interpretation Comments POC-SODIUM (BEAKER) (test code = 1542) 141 meq/L 135-148 : TESTED AT [address], [address]: Pneumatic Tube Operator/Movie Actor ID = [id number] for MORENO MANUEL [id number] 11:48:00* Test Item Value Reference Range Interpretation Comments POC-POTASSIUM (BEAKER) (test code = 1540) 4.8 meq/L 3.6-5.5 : TESTED AT [address], [address]: Pneumatic Tube Operator/Movie Actor ID = [id number] for MORENO MANUEL [id number] 11:48:00* Test Item Value Reference Range Interpretation Comments POC-HEMOGLOBIN (BEAKER) (test code = 1856) 8.8 g/dL 13.0-16.8 L : TESTED AT [address], [address]: Pneumatic Tube Operator/Movie Actor ID = [id number] for MORENO MANUEL [id number] 11:48:00* Test Item Value Reference Range Interpretation Comments POC-HEMATOCRIT (BEAKER) (test code = 1857) 26 % 40-50 L : Pneumatic Tube Operator/Movie Actor ID = [id number] for MORENO MANUEL POCT-CALCIUM [id number] 11:48:00* Test Item Value Reference Range Interpretation Comments POC-CALCIUM IONIZED (BEAKER) (test code = 1536) 2.08 mmol/L 1.12-1 .27 HH : TESTED AT [address], [address]: Pneumatic Tube Operator/Movie Actor ID = [id number] for MORENO MANUEL [id number] 11:48:00* Test Item Value Reference Range Interpretation Comments POC-GLUCOSE (BEAKER) (test code = 1855) 230 mg/dL 70-110 H : TESTED AT [address], [address]: Pneumatic Tube Operator/Movie Actor ID = [id number] for MORENO MANUEL POCT-GLUCOSE [id number] 06:25:00* Test Item Value Reference Range Interpretation Comments POC-GLUCOSE METER (BEAKER) (test code = 1538) 118 mg/dL 70-110 H : TESTED AT [facility] [address] [place], [address]: Pneumatic Tube Operator/Movie Actor ID = [id number] for LEONEL BARONE SARS-COV2/RT-PCR ([facility])2020-04-21 06:24:00* Test Item Value Reference Range Interpretation Comments SARS-COV2/RT-PCR (test code = 1571465) Not Detected Not Detected, N egative SARS-COV-2 PERFORMING LAB (test code = 3302380) [facility] Negative results do not preclude SARS-CoV-2 infection and should not be used as the sole basis for patient management decisions. Negative results must be combin ed with clinical observations, patient history, and epidemiological information. A false negative result may occur if a specimen is improperly collected, transp orted or handled.The limit of detection for this assay is 250 copies/mL.This [facility] S CoV-2 test is a rapid, real-time RT-PCR test intended for the qualitative dete ction of nucleic acid from SARS-CoV-2 in a nasopharyngeal swab specimen collecte d from individuals suspected of COVID-19 by their healthcare provider.This test has not been Food and Drug Administration (FDA) cleared or approved and has been authorized by FDA under an Emergency Use Authorization (EUA). This EUA will be effective until the declaration that circumstances exist justifying the authoriz ation of the emergency use of in vitro diagnostic tests for detection and/or bob gnosis of COVID-19 is terminated under Section 564(b)(2) of the Act or the EUA i s revoked under Section 564(g) of the Act.Fact Sheet for Healthcare Providers:ht tps://www.[employer]/Documents/Xpert%20Xpress%20SARS%20CoV-2/Fact%20Sheets/488- 4662%20UTJT-YOX-0%20HEALTHCARE%20PROVIDERS%20FACT%20SHEET.pdfFact Sheet for Heal thcare Patients:https://www.[employer]/Documents/Xpert%20Xpress%20SARS%20CoV-2/ Fact%20Sheets/157-3801%18DEET-YQE-4%20PATIENT%20FACT%20SHEET.pdfPerforming Labor atory:[facility] [place] [address] [id number] 05:17:00* Test Item Value Reference Range Interpretation Comments PHOSPHORUS (BEAKER) (test code = 604) 3.5 mg/dL 2.3-4.7 Pneumatic Tube Operator ID Dong LIPSCOMB [id number] 05:17:00* Test Item Value Reference Range Interpretation Comments MAGNESIUM (BEAKER) (test code = 627) 2.5 mg/dL 1.6-2.6 Pneumatic Tube Operator ID Dong LIPSCOMB WBASIC METABOLIC [id number] 05:17:00* Test Item Value Reference Range Interpretation Comments SODIUM (BEAKER) (test code = 381) 142 meq/L 136-145 POTASSIUM (BEAKER) (test code = 379) 4.5 meq/L 3.5-5.1 CHLORIDE (BEAKER) (test code = 382) 107 meq/L 98-107 CO2 (BEAKER) (test code = 355) 28 meq/L 22-29 BLOOD UREA NITROGEN (BEAKER) (test code = 354) 25 mg/dL 7-21 H CREATININE (BEAKER) (test code = 358) 0.94 mg/dL 0.57-1.25 GLUCOSE RANDOM (BEAKER) (test code = 652) 127 mg/dL 70-105 H CALCIUM (BEAKER) (test code = 697) 8.6 mg/dL 8.4-10.2 EGFR (BEAKER) (test code = 1092) 91 mL/min/1.73 sq m ESTIMATED GFR IS NOT ACCURATE CREATININE CLEARANCE IN PREDICTING GLOMERULAR FILTRATION RATE. ESTIMATED GFR IS NOT APPLICABLE FOR DIALYSIS PATIENTS. Pneumatic Tube Operator ANDREZ LIPSCOMB WCBC W/PLT COUNT & AUTO [id number] 04:45:00* Test Item Value Reference Range Interpretation Comments WHITE BLOOD CELL COUNT (BEAKER) (test code = 775) 6.7 K/ L 3.5- 10.5 RED BLOOD CELL COUNT (BEAKER) (test code = 761) 3.19 M/ L 4.63-6 .08 L HEMOGLOBIN (BEAKER) (test code = 410) 7.6 GM/DL 13.7-17.5 L HEMATOCRIT (BEAKER) (test code = 411) 26.6 % 40.1-51.0 L MEAN CORPUSCULAR VOLUME (BEAKER) (test code = 753) 83.4 fL 79. 0-92.2 MEAN CORPUSCULAR HEMOGLOBIN (BEAKER) (test code = 751) 23.8 pg 25.7-32.2 L MEAN CORPUSCULAR HEMOGLOBIN CONC (BEAKER) (test code = 752) 28.6 GM/DL 32.3-36.5 L RED CELL DISTRIBUTION WIDTH (BEAKER) (test code = 412) 16.3 % 11.6-14.4 H PLATELET COUNT (BEAKER) (test code = 756) 309 K/CU MM 150-450 MEAN PLATELET VOLUME (BEAKER) (test code = 754) 9.7 fL 9.4-12 .4 NUCLEATED RED BLOOD CELLS (BEAKER) (test code = 413) 0 /100 WBC 0 -0 NEUTROPHILS RELATIVE PERCENT (BEAKER) (test code = 429) 74 % LYMPHOCYTES RELATIVE PERCENT (BEAKER) (test code = 430) 16 % MONOCYTES RELATIVE PERCENT (BEAKER) (test code = 431) 9 % EOSINOPHILS RELATIVE PERCENT (BEAKER) (test code = 432) 1 % BASOPHILS RELATIVE PERCENT (BEAKER) (test code = 437) 0 % NEUTROPHILS ABSOLUTE COUNT (BEAKER) (test code = 670) 4.94 K/ L 1.78-5.38 LYMPHOCYTES ABSOLUTE COUNT (BEAKER) (test code = 414) 1.10 K/ L 1.32-3.57 L MONOCYTES ABSOLUTE COUNT (BEAKER) (test code = 415) 0.57 K/ L 0. 30-0.82 EOSINOPHILS ABSOLUTE COUNT (BEAKER) (test code = 416) 0.07 K/ L 0.04-0.54 BASOPHILS ABSOLUTE COUNT (BEAKER) (test code = 417) 0.01 K/ L 0. 01-0.08 IMMATURE GRANULOCYTES-RELATIVE PERCENT (BEAKER) (test code = 2801) 0 % 0-1 BLOOD GAS, [id number] 04:39:00* Test Item Value Reference Range Interpretation Comments PH ARTERIAL (BEAKER) (test code = 383) 7.36 7.35-7.45 PCO2 ARTERIAL (BEAKER) (test code = 384) 59 mmHg 35-45 H PO2 ARTERIAL (BEAKER) (test code = 385) 84 mmHg 80-90 O2 SATURATION ARTERIAL (BEAKER) (test code = 386) 95.4 % 96.0 -97.0 L HCO3 ARTERIAL (BEAKER) (test code = 388) 32 mmol/L 21-29 H BASE EXCESS ARTERIAL (BEAKER) (test code = 387) 5.9 mmol/L -2.0-3 .0 H PATIENT TEMPERATURE (BEAKER) (test code = 1818) 37.5 C FIO2 (BEAKER) (test code = 1819) 60.0 % RAD, CHEST, 1 VIEW, NON [id number] 02:36:00Reason for exam:->chest tube in placeFINAL REPORT Chest one view. Clinical history: chest tube in place Comparison: Chest radiograph 04/20/2020. Technique: A single frontal view of the chest was obtained. Findings:There are bilateral pigtail chest catheters unchanged in position. There is a tracheostomy tube in place. There is a feeding tube which projects below the diaphragm however the distal end is off the field of view. There is a left PICC line with tip in the distal SVC.The cardiomediastinal contours are stable. The trachea is midline. There is a large loculated right pneumothorax, increased in the interval. There are diffuse airspace opacities in the left hemithorax, mildly increased. There is airspace opacity in the right midlung compatible with discoid atelectasis. There is no pleural effusion. Discussed with covering nurse practitioner at approximately 2:34 AM 04/21/2020. Signed: Guadalupe Webb Verified Date/Time: 04/21/2020 02:36:30 -GLUCOSE [id number] 00:41:00* Test Item Value Reference Range Interpretation Comments POC-GLUCOSE METER (BEAKER) (test code = 1538) 139 mg/dL 70-110 H : TESTED AT [address], [address]: Pneumatic Tube Operator/Movie Actor ID = [id number] for HOMERO HENDRICKS POCT-GLUCOSE [id number] 18:11:00* Test Item Value Reference Range Interpretation Comments POC-GLUCOSE METER (BEAKER) (test code = 1538) 162 mg/dL 70-110 H : TESTED AT [address], [address]: Pneumatic Tube Operator/Movie Actor ID = [id number] for JUAN C LORA POCT-GLUCOSE [id number] 13:07:00* Test Item Value Reference Range Interpretation Comments POC-GLUCOSE METER (TITA) (test code = 1538) 178 mg/dL 70-110 H : TESTED AT [facility] [address], [address]: Pneumatic Tube Operator/Movie Actor ID = [id number] for JUAN C LORA CT, CHEST, WITHOUT [id number] 12:40:00FINAL REPORT TECHNIQUE: HRCT of the chest WITHOUT intravenous contrast. Images were obtained during inspiration and respiration in the supine position. Prone positioning was not obtained. Dose modulation, iterative reconstruction, and/or weight-based adjustment of the mA/kV was utilized to reduce the radiation dose to as low as reasonably achievable. INDICATION: Interstitial lung disease. COMPARISON: 04/14/2020. FINDINGS: ABSENCE OF INTRAVENOUS CONTRAST DECREASES SENSITIVITY FOR DETECTION OF FOCAL LESIONS AND VASCULAR PATHOLOGY. LINES/TUBES: Tracheostomy tube is present. There is a left arm PICC with the tip terminating at the cavoatrial junction. There are bilateral pleural pigtail catheters. There is a feeding tube with the catheter tip terminating in the distal stomach. LUNGS AND AIRWAYS: Moderately dense secretions within the proximal trachea at the level of the tracheostomy. The central airways are patent. There is interval increased consolidation of volume loss throughout the right upper lobe and right middle lobe with associated air bronchograms. There is also increased co nsolidation in the basilar segments of the right lower lobe. There is increased left lower lobe consolidation with air bronchograms. There are persistent patchy ground glass opacities in the left upper lobe and lingula.. PLEURA: Redemonstra tion of large loculated right anterior pneumothorax, mildly increased in size. T he right-sided pleural catheter terminates in the region of the major fissure. T here is a small right-sided pleural effusion. There is a small left-sided pleura l effusion which contains hyperdense material measuring up to 8.6 cm in thicknes s posteriorly. No left-sided pneumothorax. The left-sided pleural pigtail cathet er is in the anterior left lung base. There is no adjacent pleural fluid or pneu mothorax HEART AND MEDIASTINUM: There is mild interval decrease in size of multi ple mediastinal lymph nodes. For instance a right peritracheal lymph node now me asures 2 x 1.1 cm. Image 13). This previously measured 2.2 x 1.5 cm. A precarina l lymph node now measures 1.9 x 1.2 cm. This previously measured 2 x 1.5 cm. The heart and pericardium are within normal limits. SOFT TISSUES AND BONES: There i s a Schmorl node deformity in the superior endplate of T12. There is a remote fr acture deformity of the right clavicle. UPPER ABDOMEN: Unremarkable. IMPRESSION :Interval increase in size of large loculated anterior right-sided pneumothorax with interval increased consolidation and volume loss in the right upper and rig ht middle lobes. There is also increased right lower lobe consolidation.. There is a small right-sided pleural effusion. The right-sided pigtail catheter termin ates in the region of the major fissure. Increased left lower lobe consolidation with persistent patchy ground glass opacities in the left upper lobe and lingul a. There is a small complex left posterior pleural effusion containing hemorrhag ic or proteinaceous fluid. The left-sided pigtail terminates in the anterior ple ural space. There is no pneumothorax Signed: Paco Joseph MDReport Miguel ified Date/Time: 04/20/2020 12:40:25 Reading Location: [facility] C013Y CT Body [facility] 12 :40 PM BLOOD GAS, [id number] 07:56:00* Test Item Value Reference Range Interpretation Comments PH ARTERIAL (BEAKER) (test code = 383) 7.30 7.35-7.45 L PCO2 ARTERIAL (BEAKER) (test code = 384) 65 mmHg 35-45 H PO2 ARTERIAL (BEAKER) (test code = 385) 121 mmHg 80-90 H O2 SATURATION ARTERIAL (BEAKER) (test code = 386) 98.0 % 96.0 -97.0 H HCO3 ARTERIAL (BEAKER) (test code = 388) 32 mmol/L 21-29 H BASE EXCESS ARTERIAL (BEAKER) (test code = 387) 4.4 mmol/L -2.0-3 .0 H PATIENT TEMPERATURE (BEAKER) (test code = 1818) 36.7 C FIO2 (BEAKER) (test code = 1819) 50.0 % POCT-GLUCOSE [id number] 06:39:00* Test Item Value Reference Range Interpretation Comments POC-GLUCOSE METER (BEAKER) (test code = 1538) 150 mg/dL 70-110 H : TESTED AT [facility] [address], [address]: Pneumatic Tube Operator/Movie Actor ID = [id number] for Ananya Albarran POCT-GLUCOSE [id number] 05:54:00* Test Item Value Reference Range Interpretation Comments POC-GLUCOSE METER (BEAKER) (test code = 1538) 150 mg/dL 70-110 H : TESTED AT [facility] [address], [address]: Pneumatic Tube Operator/Movie Actor ID = [id number] for Kathi Miles RAD, CHEST, 1 VIEW, NON [id number] 04:31:00Reason for exam:->chest tube in placeFINAL REPORT RAD, CHEST, 1 VIEW, NON DEPT INDICATION: chest tube in place COMPARISON: Prior day's exam FINDINGS: Portable frontal view of the chest. IMPRESSION: Support Lines: Stable. Lungs and pleura: Unchanged airspace and pleural opacities. Unchanged right hydropneumothorax.Heart and mediastinum: Stable contours. Additional findings: None. Signed: Chad Garcia Verified Date/Time: 04/20/2020 04:31:19 [id number] 04:10:00* Test Item Value Reference Range Interpretation Comments PHOSPHORUS (BEAKER) (test code = 604) 3.6 mg/dL 2.3-4.7 Pneumatic Tube Operator ID - LYNN [id number] 04:10:00* Test Item Value Reference Range Interpretation Comments MAGNESIUM (BEAKER) (test code = 627) 2.1 mg/dL 1.6-2.6 Pneumatic Tube Operator ID - LYNN MBASIC METABOLIC [id number] 04:10:00* Test Item Value Reference Range Interpretation Comments SODIUM (BEAKER) (test code = 381) 142 meq/L 136-145 POTASSIUM (BEAKER) (test code = 379) 3.8 meq/L 3.5-5.1 CHLORIDE (BEAKER) (test code = 382) 106 meq/L 98-107 CO2 (BEAKER) (test code = 355) 33 meq/L 22-29 H BLOOD UREA NITROGEN (BEAKER) (test code = 354) 20 mg/dL 7-21 CREATININE (BEAKER) (test code = 358) 0.89 mg/dL 0.57-1.25 GLUCOSE RANDOM (BEAKER) (test code = 652) 151 mg/dL 70-105 H CALCIUM (BEAKER) (test code = 697) 8.6 mg/dL 8.4-10.2 EGFR (BEAKER) (test code = 1092) 97 mL/min/1.73 sq m ESTIMATED GFR IS NOT ACCURATE CREATININE CLEARANCE IN PREDICTING GLOMERULAR FILTRATION RATE. ESTIMATED GFR IS NOT APPLICABLE FOR DIALYSIS PATIENTS. Pneumatic Tube Operator ID - LYNN MCBC W/PLT COUNT & AUTO [id number] 03:46:00* Test Item Value Reference Range Interpretation Comments WHITE BLOOD CELL COUNT (BEAKER) (test code = 775) 8.0 K/ L 3.5- 10.5 RED BLOOD CELL COUNT (BEAKER) (test code = 761) 3.18 M/ L 4.63-6 .08 L HEMOGLOBIN (BEAKER) (test code = 410) 7.9 GM/DL 13.7-17.5 L HEMATOCRIT (BEAKER) (test code = 411) 26.4 % 40.1-51.0 L MEAN CORPUSCULAR VOLUME (BEAKER) (test code = 753) 83.0 fL 79. 0-92.2 MEAN CORPUSCULAR HEMOGLOBIN (BEAKER) (test code = 751) 24.8 pg 25.7-32.2 L MEAN CORPUSCULAR HEMOGLOBIN CONC (BEAKER) (test code = 752) 29.9 GM/DL 32.3-36.5 L RED CELL DISTRIBUTION WIDTH (BEAKER) (test code = 412) 16.2 % 11.6-14.4 H PLATELET COUNT (BEAKER) (test code = 756) 319 K/CU MM 150-450 MEAN PLATELET VOLUME (BEAKER) (test code = 754) 9.5 fL 9.4-12 .4 NUCLEATED RED BLOOD CELLS (BEAKER) (test code = 413) 0 /100 WBC 0 -0 NEUTROPHILS RELATIVE PERCENT (BEAKER) (test code = 429) 74 % LYMPHOCYTES RELATIVE PERCENT (BEAKER) (test code = 430) 16 % MONOCYTES RELATIVE PERCENT (BEAKER) (test code = 431) 9 % EOSINOPHILS RELATIVE PERCENT (BEAKER) (test code = 432) 0 % BASOPHILS RELATIVE PERCENT (BEAKER) (test code = 437) 0 % NEUTROPHILS ABSOLUTE COUNT (BEAKER) (test code = 670) 5.90 K/ L 1.78-5.38 H LYMPHOCYTES ABSOLUTE COUNT (BEAKER) (test code = 414) 1.31 K/ L 1.32-3.57 L MONOCYTES ABSOLUTE COUNT (BEAKER) (test code = 415) 0.75 K/ L 0. 30-0.82 EOSINOPHILS ABSOLUTE COUNT (BEAKER) (test code = 416) 0.03 K/ L 0.04-0.54 L BASOPHILS ABSOLUTE COUNT (BEAKER) (test code = 417) 0.01 K/ L 0. 01-0.08 IMMATURE GRANULOCYTES-RELATIVE PERCENT (BEAKER) (test code = 2801) 0 % 0-1 BLOOD GAS, [id number] 03:30:00* Test Item Value Reference Range Interpretation Comments PH ARTERIAL (BEAKER) (test code = 383) 7.36 7.35-7.45 PCO2 ARTERIAL (BEAKER) (test code = 384) 60 mmHg 35-45 H PO2 ARTERIAL (BEAKER) (test code = 385) 103 mmHg 80-90 H O2 SATURATION ARTERIAL (BEAKER) (test code = 386) 97.3 % 96.0 -97.0 H HCO3 ARTERIAL (BEAKER) (test code = 388) 33 mmol/L 21-29 H BASE EXCESS ARTERIAL (BEAKER) (test code = 387) 6.2 mmol/L -2.0-3 .0 H PATIENT TEMPERATURE (BEAKER) (test code = 1818) 37.0 C FIO2 (BEAKER) (test code = 1819) 50.0 % POCT-GLUCOSE [id number] 23:58:00* Test Item Value Reference Range Interpretation Comments POC-GLUCOSE METER (BEAKER) (test code = 1538) 133 mg/dL 70-110 H : TESTED AT [facility] [address], [address]: Pneumatic Tube Operator/Movie Actor ID = [id number] for BOAZ PINZON POCT-GLUCOSE [id number] 17:55:00* Test Item Value Reference Range Interpretation Comments POC-GLUCOSE METER (BEAKER) (test code = 1538) 137 mg/dL 70-110 H : TESTED AT [facility] [address], [address]: Pneumatic Tube Operator/Movie Actor ID = [id number] for JUAN C LORA RAD, ABDOMEN/KUB, 1 VIEW [id number] 13:11:00Reason for exam:->dobhoff placementFINAL REPORT CLINICAL HISTORY: dobhoff placement TECHNIQUE: Supine abdomen COMPARISON: 04/17/2020 IMPRESSION: The feeding tube is in the distal stomach. A gastrostomy tube is again seen. There is a paucity of bowel gas, and dilated fluid-filled loops of bowel cannot be excluded. Free air and air-fluid levels are not definitively seen, but also cannot be excluded on the supine view. Signed: Edelmira Mendietaeport Verified Date/Time: 04/19/2020 13:11:23 Reading Location: [facility] Radiology Reading Room - GLUCOSE [id number] 13:05:00* Test Item Value Reference Range Interpretation Comments POC-GLUCOSE METER (BEAKER) (test code = 1538) 182 mg/dL 70-110 H : TESTED AT [facility] [address], [address]: Pneumatic Tube Operator/Movie Actor ID = [id number] for JUAN C LORA [id number] 12:01:00* Test Item Value Reference Range Interpretation Comments PHOSPHORUS (BEAKER) (test code = 604) 3.2 mg/dL 2.3-4.7 Pneumatic Tube Operator ID - ASHLEY [id number] 12:01:00* Test Item Value Reference Range Interpretation Comments MAGNESIUM (BEAKER) (test code = 627) 2.2 mg/dL 1.6-2.6 Pneumatic Tube Operator ID - ASHLEY CBASIC METABOLIC [id number] 12:01:00* Test Item Value Reference Range Interpretation Comments SODIUM (BEAKER) (test code = 381) 141 meq/L 136-145 POTASSIUM (BEAKER) (test code = 379) 3.7 meq/L 3.5-5.1 CHLORIDE (BEAKER) (test code = 382) 105 meq/L 98-107 CO2 (BEAKER) (test code = 355) 32 meq/L 22-29 H BLOOD UREA NITROGEN (BEAKER) (test code = 354) 22 mg/dL 7-21 H CREATININE (BEAKER) (test code = 358) 0.94 mg/dL 0.57-1.25 GLUCOSE RANDOM (BEAKER) (test code = 652) 222 mg/dL 70-105 H CALCIUM (BEAKER) (test code = 697) 8.4 mg/dL 8.4-10.2 EGFR (BEAKER) (test code = 1092) 91 mL/min/1.73 sq m ESTIMATED GFR IS NOT ACCURATE CREATININE CLEARANCE IN PREDICTING GLOMERULAR FILTRATION RATE. ESTIMATED GFR IS NOT APPLICABLE FOR DIALYSIS PATIENTS. Pneumatic Tube Operator ID - ASHLEY CCBC W/PLT COUNT & AUTO [id number] 11:36:00* Test Item Value Reference Range Interpretation Comments WHITE BLOOD CELL COUNT (BEAKER) (test code = 775) 6.9 K/ L 3.5- 10.5 RED BLOOD CELL COUNT (BEAKER) (test code = 761) 3.23 M/ L 4.63-6 .08 L HEMOGLOBIN (BEAKER) (test code = 410) 8.0 GM/DL 13.7-17.5 L HEMATOCRIT (BEAKER) (test code = 411) 26.3 % 40.1-51.0 L MEAN CORPUSCULAR VOLUME (BEAKER) (test code = 753) 81.4 fL 79. 0-92.2 MEAN CORPUSCULAR HEMOGLOBIN (BEAKER) (test code = 751) 24.8 pg 25.7-32.2 L MEAN CORPUSCULAR HEMOGLOBIN CONC (BEAKER) (test code = 752) 30.4 GM/DL 32.3-36.5 L RED CELL DISTRIBUTION WIDTH (BEAKER) (test code = 412) 16.1 % 11.6-14.4 H PLATELET COUNT (BEAKER) (test code = 756) 325 K/CU MM 150-450 MEAN PLATELET VOLUME (BEAKER) (test code = 754) 9.7 fL 9.4-12 .4 NUCLEATED RED BLOOD CELLS (BEAKER) (test code = 413) 0 /100 WBC 0 -0 NEUTROPHILS RELATIVE PERCENT (BEAKER) (test code = 429) 71 % LYMPHOCYTES RELATIVE PERCENT (BEAKER) (test code = 430) 19 % MONOCYTES RELATIVE PERCENT (BEAKER) (test code = 431) 8 % EOSINOPHILS RELATIVE PERCENT (BEAKER) (test code = 432) 1 % BASOPHILS RELATIVE PERCENT (BEAKER) (test code = 437) 0 % NEUTROPHILS ABSOLUTE COUNT (BEAKER) (test code = 670) 4.94 K/ L 1.78-5.38 LYMPHOCYTES ABSOLUTE COUNT (BEAKER) (test code = 414) 1.29 K/ L 1.32-3.57 L MONOCYTES ABSOLUTE COUNT (BEAKER) (test code = 415) 0.56 K/ L 0. 30-0.82 EOSINOPHILS ABSOLUTE COUNT (BEAKER) (test code = 416) 0.06 K/ L 0.04-0.54 BASOPHILS ABSOLUTE COUNT (BEAKER) (test code = 417) 0.02 K/ L 0. 01-0.08 IMMATURE GRANULOCYTES-RELATIVE PERCENT (BEAKER) (test code = 2801) 1 % 0-1 BLOOD GAS, [id number] 11:28:00* Test Item Value Reference Range Interpretation Comments PH ARTERIAL (BEAKER) (test code = 383) 7.43 7.35-7.45 PCO2 ARTERIAL (BEAKER) (test code = 384) 49 mmHg 35-45 H PO2 ARTERIAL (BEAKER) (test code = 385) 81 mmHg 80-90 O2 SATURATION ARTERIAL (BEAKER) (test code = 386) 95.9 % 96.0 -97.0 L HCO3 ARTERIAL (BEAKER) (test code = 388) 31 mmol/L 21-29 H BASE EXCESS ARTERIAL (BEAKER) (test code = 387) 6.2 mmol/L -2.0-3 .0 H PATIENT TEMPERATURE (BEAKER) (test code = 1818) 37.4 C FIO2 (BEAKER) (test code = 1819) 50.0 % RAD, CHEST, 1 VIEW, NON [id number] 10:56:00Reason for exam:->chest tubes on water sealFINAL REPORT CLINICAL HISTORY: chest tubes on water seal TECHNIQUE: 1 view of the chest. COMPARISON: 04/18/2020 IMPRESSION: The supporting lines and tubes are similar appearing. A moderate to large right- sided pneumothorax has increased in size. Right lung consolidative changes are again seen. A small right effusion is again seen. There is no evidence for left pneumothorax. Left lung airspace opacities are unchanged. The heart is not enlarged. Signed: Edelmira Mendieta MDReport Verified Date/Time: 04/19/2020 10:56:15 Reading Location: [facility] Radiology Reading Room - GLUCOSE [id number] 05:14:00* Test Item Value Reference Range Interpretation Comments POC-GLUCOSE METER (BEAKER) (test code = 1538) 132 mg/dL 70-110 H : TESTED AT [address], [address]: Pneumatic Tube Operator/Movie Actor ID = [id number] for Mireille De Los Santos (contract) [id number] 04:44:00* Test Item Value Reference Range Interpretation Comments Prealbumin (test code = 41661-5) 9 mg/dL 14-45 L ROSALIO (test code = ROSALIO) Pneumatic Tube Operator ID - PIAYA L Lab Interpretation (test code = 85937-1) [id number] 04:44:00* Test Item Value Reference Range Interpretation Comments PREALBUMIN (BEAKER) (test code = 586) 9 mg/dL 14-45 L Pneumatic Tube Operator ID - CANDIEAYA LPOCT-GLUCOSE [id number] 23:39:00* Test Item Value Reference Range Interpretation Comments POC-GLUCOSE METER (BEAKER) (test code = 1538) 153 mg/dL 70-110 H : TESTED AT [address], [address]: Pneumatic Tube Operator/Movie Actor ID = [id number] for Mireille De Los Santos (contract) POCT-GLUCOSE [id number] 18:06:00* Test Item Value Reference Range Interpretation Comments POC-GLUCOSE METER (BEAKER) (test code = 1538) 135 mg/dL 70-110 H : TESTED AT [address], [address]: Pneumatic Tube Operator/Movie Actor ID = [id number] for RASHARD BAKER POCT-GLUCOSE [id number] 12:23:00* Test Item Value Reference Range Interpretation Comments POC-GLUCOSE METER (BEAKER) (test code = 1538) 158 mg/dL 70-110 H : TESTED AT 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 ID = [id number] for RASHARD BAKER SPUTUM CULTURE + GRAM [id number] 12:06:00* Test Item Value Reference Range Interpretation Comments CULTURE (BEAKER) (test code = 1095) STAPHYLOCOCCUS AUREUS A 2+ Staphylococcus aureus Clindamycin (test code = 10) R Erythromycin (test code = 4) R Linezolid (test code = 40) S Nitrofurantoin (test code = 23) S Oxacillin (test code = 14) S Rifampin (test code = 43) S Tetracycline (test code = 2) S Trimethoprim + Sulfamethoxazole (test code = 47) S Vancomycin (test code = 13) S GRAM STAIN RESULT (BEAKER) (test code = 1123) 4+ WBCs GRAM STAIN RESULT (BEAKER) (test code = 319915) 0-5 epithelial cell s GRAM STAIN RESULT (BEAKER) (test code = 788928) <1+ gr am positive cocci in clusters 1+ Normal respiratory milli presentPOCT-GLUCOSE [id number] 06:04:00* Test Item Value Reference Range Interpretation Comments POC-GLUCOSE METER (BEAKER) (test code = 1538) 126 mg/dL 70-110 H : TESTED AT [place] [id number], [address]: Pneumatic Tube Operator/Movie Actor ID = [id number] for KRISTEN HERNANDEZ [id number] 05:43:00* Test Item Value Reference Range Interpretation Comments MAGNESIUM (BEAKER) (test code = 627) 2.3 mg/dL 1.6-2.6 Specimen slightly hemolyzed Pneumatic Tube Operator ID - [id number] 05:43:00* Test Item Value Reference Range Interpretation Comments PHOSPHORUS (BEAKER) (test code = 604) 3.2 mg/dL 2.3-4.7 Specimen slightly hemolyzed Pneumatic Tube Operator ID - LABASIC METABOLIC [id number] 05:43:00* Test Item Value Reference Range Interpretation Comments SODIUM (BEAKER) (test code = 381) 143 meq/L 136-145 POTASSIUM (BEAKER) (test code = 379) 3.7 meq/L 3.5-5.1 Specimen slightly hemolyzed CHLORIDE (BEAKER) (test code = 382) 107 meq/L 98-107 CO2 (BEAKER) (test code = 355) 32 meq/L 22-29 H BLOOD UREA NITROGEN (BEAKER) (test code = 354) 26 mg/dL 7-21 H CREATININE (BEAKER) (test code = 358) 0.90 mg/dL 0.57-1.25 Specimen slightly hemolyzed GLUCOSE RANDOM (BEAKER) (test code = 652) 133 mg/dL 70-105 H CALCIUM (BEAKER) (test code = 697) 8.6 mg/dL 8.4-10.2 EGFR (BEAKER) (test code = 1092) 96 mL/min/1.73 sq m ESTIMATED GFR IS NOT ACCURATE CREATININE CLEARANCE IN PREDICTING GLOMERULAR FILTRATION RATE. ESTIMATED GFR IS NOT APPLICABLE FOR DIALYSIS PATIENTS. Pneumatic Tube Operator ID - LABLOOD GAS, [id number] 05:01:00* Test Item Value Reference Range Interpretation Comments PH ARTERIAL (BEAKER) (test code = 383) 7.42 7.35-7.45 PCO2 ARTERIAL (BEAKER) (test code = 384) 52 mmHg 35-45 H PO2 ARTERIAL (BEAKER) (test code = 385) 154 mmHg 80-90 H O2 SATURATION ARTERIAL (BEAKER) (test code = 386) 99.0 % 96.0 -97.0 H HCO3 ARTERIAL (BEAKER) (test code = 388) 34 mmol/L 21-29 H BASE EXCESS ARTERIAL (BEAKER) (test code = 387) 8.0 mmol/L -2.0-3 .0 H PATIENT TEMPERATURE (BEAKER) (test code = 1818) 37.0 C FIO2 (BEAKER) (test code = 1819) 60.0 % CBC W/PLT COUNT & AUTO [id number] 04:52:00* Test Item Value Reference Range Interpretation Comments WHITE BLOOD CELL COUNT (BEAKER) (test code = 775) 7.9 K/ L 3.5- 10.5 RED BLOOD CELL COUNT (BEAKER) (test code = 761) 3.20 M/ L 4.63-6 .08 L HEMOGLOBIN (BEAKER) (test code = 410) 7.9 GM/DL 13.7-17.5 L HEMATOCRIT (BEAKER) (test code = 411) 26.0 % 40.1-51.0 L MEAN CORPUSCULAR VOLUME (BEAKER) (test code = 753) 81.3 fL 79. 0-92.2 MEAN CORPUSCULAR HEMOGLOBIN (BEAKER) (test code = 751) 24.7 pg 25.7-32.2 L MEAN CORPUSCULAR HEMOGLOBIN CONC (BEAKER) (test code = 752) 30.4 GM/DL 32.3-36.5 L RED CELL DISTRIBUTION WIDTH (BEAKER) (test code = 412) 16.2 % 11.6-14.4 H PLATELET COUNT (BEAKER) (test code = 756) 370 K/CU MM 150-450 MEAN PLATELET VOLUME (BEAKER) (test code = 754) 9.4 fL 9.4-12 .4 NUCLEATED RED BLOOD CELLS (BEAKER) (test code = 413) 0 /100 WBC 0 -0 NEUTROPHILS RELATIVE PERCENT (BEAKER) (test code = 429) 72 % LYMPHOCYTES RELATIVE PERCENT (BEAKER) (test code = 430) 16 % MONOCYTES RELATIVE PERCENT (BEAKER) (test code = 431) 10 % EOSINOPHILS RELATIVE PERCENT (BEAKER) (test code = 432) 1 % BASOPHILS RELATIVE PERCENT (BEAKER) (test code = 437) 0 % NEUTROPHILS ABSOLUTE COUNT (BEAKER) (test code = 670) 5.65 K/ L 1.78-5.38 H LYMPHOCYTES ABSOLUTE COUNT (BEAKER) (test code = 414) 1.29 K/ L 1.32-3.57 L MONOCYTES ABSOLUTE COUNT (BEAKER) (test code = 415) 0.79 K/ L 0. 30-0.82 EOSINOPHILS ABSOLUTE COUNT (BEAKER) (test code = 416) 0.09 K/ L 0.04-0.54 BASOPHILS ABSOLUTE COUNT (BEAKER) (test code = 417) 0.02 K/ L 0. 01-0.08 IMMATURE GRANULOCYTES-RELATIVE PERCENT (BEAKER) (test code = 2801) 0 % 0-1 RAD, CHEST, 1 VIEW, NON [id number] 04:35:00Reason for exam:->Post-opShould this be performed at the bedside?->YesFINAL REPORT CLINICAL INDICATION: Postop Comparison: 04/15/2020 The cardiomediastinal contours are stable. The lung volumes remain low. Central pulmonary vascular congestion and bilateral parenchymal and pleural opacities are unchanged. No definite pneumothorax is identified. Support lines are stable. Signed: Sayda Fan MDReport Verified Date/Time: 04/18/2020 04:35:13 -GLUCOSE [id number] 23:46:00* Test Item Value Reference Range Interpretation Comments POC-GLUCOSE METER (BEAKER) (test code = 1538) 148 mg/dL 70-110 H : TESTED AT [place] [id number] [facility], [address]: Pneumatic Tube Operator/Movie Actor ID = [id number] for PIPPA JUAREZ POCT-GLUCOSE [id number] 18:55:00* Test Item Value Reference Range Interpretation Comments POC-GLUCOSE METER (BEAKER) (test code = 1538) 129 mg/dL 70-110 H : TESTED AT [place] [id number] [facility], [address]: Pneumatic Tube Operator/Movie Actor ID = [id number] for RASHARD BAKER 2D Echo W/Doppler(CW/PW/Color)2020-04-17 18:19:58Ejection FractionSST. [facility] MKCKESSON CPACSInterface, External Ris In - 04/17/2020 6:20 PM CDTTransthoracic Echocardiography Report (TTE) Demographics Patient Name SUKHDEEP TINOCO Date of Study 04/17/2020 Gender Male Visit Number [id number] Race Unknown Room Number 7A08 Number Date of 1985 Referring Physician Dhiraj Mclaughlin MD Age 35 year(s) Medical Office Receptionist Assistant Beverley Shah, [facility] Apparatus Lineman Dorcas Hampton, Interpreting Elvis Tsang, [facility] Physician Procedure Type of Study TTE pr ocedure:2DECHO W DOPPLER(CW/PW/COLOR) (STAT) Indications:Respiratory failure or hypoxemia .Clinical HistoryDM II, DVT, Cardiopulmonary arrest, Sepsis, h/o COVID 19, HTN, Renalinsufficiency, ObesityContrast Medium: Definity. Amount - 2 mlHeig ht: 71 inches Weight: 86.18 kg (190 lbs) BSA: 2.06 m^2 BMI: 26.5 kg/m^2HR: 100 b pm BP: 159/90 mmHg Summary LV endocardium is adequately visualized with IV ultra sound enhancing agent. The left ventricle is chamber size (by vol index) is norm al (male - LVED vol - 34-74ml/m2). No evidence of LV hypertrophy. All of the LV segments contract normally . Global LV systolic function normal . LVEF by Simpso n's method of disk assessment is normal (>60%) [...] . Pericardium No pericardial effusion is visualized. IVC/SVC/PA/PV/ Pleural The estimated RA pressure by IVC dynamics 5-10mmHg . Chambers/Structures Left Atrium LA Volume: 79.04 ml LA Area: 23.75 cm^2 LA Vol. Index: 38 ml/m^2 Left Ventricle LVIDd: 4.52 cm LV Se ptum Diastolic: 1.1 cm LV PW Diastolic: 1.1 cm LVEDV Draper's:135.32 ml LVESV S impson's:52.31 ml LVEF Draper's: 61.3 % LVEDVI: 66 ml/m^2 LVESVI: 25 ml/m^2 LVOT Diameter: 2.1 c m Right Ventricle RVOT VTI: 13.05 cm Aorta Ao Root S of Sariah.: 3.24 cm Doppler /Quantitative Measurements Aortic Valve Peak Velocity: 1.24 m/s Mean Velocity: 0.91 m/s Peak Gradient: 6.2 mmHg Mean Gradient : 3.72 mmHg AV Area (continuity): 3.19 cm^2 AV VTI: 22.48 cm AV DVI: 0.92 LVOT Peak Velocity: 1.1 m/s Peak Gradient: 4.84 mmHg Mean Velocity: 0. 75 m/s Mean Gradient: 2.59 mmHg LVOT Diameter: 2.1 cm LVOT VTI: 20.73 cm LVOT Area: 3.46 cm^2 LVOT SV:71.76 ml LVOT CO: 7.18 l/min LVOT CI: 3.49 l/min/m^2 [facility] V[facility] [id number] 16:10:00Reason for exam:-> constipated. nauseatedFINAL REPORT Abdomen one view Comparison: None. Reason for exam: constipated. nauseated Findings: There is a paucity of bowel gas. This is a nonspecific finding. No free air is identified. A pigtail catheter projects over the left lower thorax. No acute bony abnormality. Signed: Manda Sandovaleport Verified Date/Time: 04/17/2020 16:10:47 Reading Location: [address] Ortho Consult Reading Room OMYCIN LEVEL, TROUGH 2020-04-17 15:06:00* Test Item Value Reference Range Interpretation Comments VANCOMYCIN TROUGH (BEAKER) (test code = 522) Vancomycin, Trough: 24.7 ug/mLReference Range: Trough: 10 - 20 ug/mL Peak: 20 - 40 ug/mL Potential Toxicity: >80 ug/mLTesting performed at [facility]. VANCOMYCIN LEVEL, [id number] 14:08:00* Test Item Value Reference Range Interpretation Comments VANCOMYCIN TROUGH (BEAKER) (test code = 522) Vancomycin, Trough: 28.6 ug/mLReference Range: Trough: 10 - 20 ug/mL Peak: 20 - 40 ug/ Potential Toxicity: >80 ug/mLTesting performed at [facility]. POCT-GLUCOSE [id number] 12:01:00* Test Item Value Reference Range Interpretation Comments POC-GLUCOSE METER (BEAKER) (test code = 1538) 155 mg/dL 70-110 H : TESTED AT [address], [address]: Pneumatic Tube Operator/Movie Actor ID = [id number] for RASHARD BAKER [id number] 04:09:00* Test Item Value Reference Range Interpretation Comments PHOSPHORUS (BEAKER) (test code = 604) 4.6 mg/dL 2.3-4.7 Pneumatic Tube Operator ID - LYNN [id number] 04:09:00* Test Item Value Reference Range Interpretation Comments MAGNESIUM (BEAKER) (test code = 627) 1.9 mg/dL 1.6-2.6 Pneumatic Tube Operator ID - LYNN MBASIC METABOLIC [id number] 04:09:00* Test Item Value Reference Range Interpretation Comments SODIUM (BEAKER) (test code = 381) 144 meq/L 136-145 POTASSIUM (BEAKER) (test code = 379) 3.4 meq/L 3.5-5.1 L CHLORIDE (BEAKER) (test code = 382) 99 meq/L 98-107 CO2 (BEAKER) (test code = 355) 35 meq/L 22-29 H BLOOD UREA NITROGEN (BEAKER) (test code = 354) 41 mg/dL 7-21 H CREATININE (BEAKER) (test code = 358) 1.07 mg/dL 0.57-1.25 GLUCOSE RANDOM (BEAKER) (test code = 652) 163 mg/dL 70-105 H CALCIUM (BEAKER) (test code = 697) 8.8 mg/dL 8.4-10.2 EGFR (BEAKER) (test code = 1092) 79 mL/min/1.73 sq m ESTIMATED GFR IS NOT ACCURATE CREATININE CLEARANCE IN PREDICTING GLOMERULAR FILTRATION RATE. ESTIMATED GFR IS NOT APPLICABLE FOR DIALYSIS PATIENTS. Pneumatic Tube Operator ID - LYNN MCBC W/PLT COUNT & AUTO [id number] 03:46:00* Test Item Value Reference Range Interpretation Comments WHITE BLOOD CELL COUNT (BEAKER) (test code = 775) 9.9 K/ L 3.5- 10.5 RED BLOOD CELL COUNT (BEAKER) (test code = 761) 3.16 M/ L 4.63-6 .08 L HEMOGLOBIN (BEAKER) (test code = 410) 8.0 GM/DL 13.7-17.5 L HEMATOCRIT (BEAKER) (test code = 411) 25.5 % 40.1-51.0 L MEAN CORPUSCULAR VOLUME (BEAKER) (test code = 753) 80.7 fL 79. 0-92.2 MEAN CORPUSCULAR HEMOGLOBIN (BEAKER) (test code = 751) 25.3 pg 25.7-32.2 L MEAN CORPUSCULAR HEMOGLOBIN CONC (BEAKER) (test code = 752) 31.4 GM/DL 32.3-36.5 L RED CELL DISTRIBUTION WIDTH (BEAKER) (test code = 412) 16.8 % 11.6-14.4 H PLATELET COUNT (BEAKER) (test code = 756) 367 K/CU MM 150-450 MEAN PLATELET VOLUME (BEAKER) (test code = 754) 9.7 fL 9.4-12 .4 NUCLEATED RED BLOOD CELLS (BEAKER) (test code = 413) 0 /100 WBC 0 -0 NEUTROPHILS RELATIVE PERCENT (BEAKER) (test code = 429) 76 % LYMPHOCYTES RELATIVE PERCENT (BEAKER) (test code = 430) 14 % MONOCYTES RELATIVE PERCENT (BEAKER) (test code = 431) 10 % EOSINOPHILS RELATIVE PERCENT (BEAKER) (test code = 432) 0 % BASOPHILS RELATIVE PERCENT (BEAKER) (test code = 437) 0 % NEUTROPHILS ABSOLUTE COUNT (BEAKER) (test code = 670) 7.49 K/ L 1.78-5.38 H LYMPHOCYTES ABSOLUTE COUNT (BEAKER) (test code = 414) 1.36 K/ L 1.32-3.57 MONOCYTES ABSOLUTE COUNT (BEAKER) (test code = 415) 0.96 K/ L 0. 30-0.82 H EOSINOPHILS ABSOLUTE COUNT (BEAKER) (test code = 416) 0.04 K/ L 0.04-0.54 BASOPHILS ABSOLUTE COUNT (BEAKER) (test code = 417) 0.03 K/ L 0. 01-0.08 IMMATURE GRANULOCYTES-RELATIVE PERCENT (BEAKER) (test code = 2801) 0 % 0-1 POCT-GLUCOSE [id number] 23:58:00* Test Item Value Reference Range Interpretation Comments POC-GLUCOSE METER (BEAKER) (test code = 1538) 153 mg/dL 70-110 H : TESTED AT [facility] [address] [facility], [address]: Pneumatic Tube Operator/Movie Actor ID = [id number] for PIPPA JUAREZ POCT-GLUCOSE [id number] 17:59:00* Test Item Value Reference Range Interpretation Comments POC-GLUCOSE METER (BEAKER) (test code = 1538) 127 mg/dL 70-110 H : TESTED AT [facility] [address] [facility], [address]: Pneumatic Tube Operator/Movie Actor ID = [id number] for SIDNEY LORAON Venous doppler legs [id number] 15:06:21Ejection FractionSLEH ECHO HEARTLAB MKCKESSON CPACSRight Impression1. There is no deep venous obstruction in the common femoral, profundafemora or popliteal veins.2. There is partial echolucent deep venous obstruction in the mid-distalfemoral and posterior tibial veins.3. The peroneal veins were not visualized.4. There is no superficial venous obstruction in the great saphenous vein.Left Impression1. There is no deep venous obstruction in the common femoral, profundafemoral, femoral, popliteal and posterior tibial veins2. The peroneal veins were not visualized.3. There is no superficial venous obstruction in the great saphenous vein. Conclusions Summary Venous duplex imaging and compression of the bilateral lower extremities were performed. The veins were adequately visualized except as stated above. The right deep venous system was positive with acute thrombus. Th e left deep venous system was patent and compressible with no evidence of thromb us where visualized. Signature Velocities are measured in cm/s ; Diameters are measured in cm In terface, External Ris In - 04/16/2020 3:06 PM CDTPV LAB - Lower Extremities DVT Study Demographics Patient Name SUKHDEEP TINOCO Date of Study Age 35 Visit Sinan aranda [id number] Gender Male Accession Number [id number] Date of 1985 Referring Dhiraj Mclaughlin, Room Number 7A08 Physician Medical Office Receptionist Assistant Thor Gomez In terpreting Ann Marie Allen T Physician ProcedureType of Study: Veins: Lower Extremities DVT Study, VENOU S DOPPLER LEG, BILATERAL. Indications for Study:R/O DVT.Patient Status:STAT.Stud y Location:Portable.Technical Quality:Adequate visualization. - Results were re ported to:Samreen ROB@12:02.Risk FactorsHistory of Disease+---------+----+ +!Diagnosis!Date!Comments !+---------+----+ +!Other ! !DVT, HTN, Stroke, Anem ia, Blood Transfusion, Previous !! ! !COVID-19, DM !+---------+----+ +ImpressionsRight Impression1. There is no deep shirley ous obstruction in the common femoral, profundafemora or popliteal veins.2. Ther e is partial echolucent deep venous obstruction in the mid-distalfemoral and pos terior tibial veins.3. The peroneal veins were not visualized.4. There is no sup erficial venous obstruction in the great saphenous vein.Left Impression1. There is no deep venous obstruction in the common femoral, profundafemoral, femoral, p opliteal and posterior tibial veins2. The peroneal veins were not visualized.3. There is no superficial venous obstruction in the great saphenous vein. Conclusi ons Summary Venous duplex imaging and compression of the bilateral lower extre mities were performed. The veins were adequately visualized except as stated abo ve. The right deep venous system was positive with acute thrombus. The left deep venous system was patent and compressible with no evidence of thrombus where vi sualized. Signature ------ Electronically signed by Ann Marie Allen MD(Interpreting physician) on 0 04/16/2020 03:06 PM --- Velocities are measured in cm/s ; Diameters are measured in [facility], [id number] 14:47:00* Test Item Value Reference Range Interpretation Comments PH ARTERIAL (BEAKER) (test code = 383) 7.45 7.35-7.45 PCO2 ARTERIAL (BEAKER) (test code = 384) 62 mmHg 35-45 H PO2 ARTERIAL (BEAKER) (test code = 385) 90 mmHg 80-90 O2 SATURATION ARTERIAL (BEAKER) (test code = 386) 96.8 % 96.0 -97.0 HCO3 ARTERIAL (BEAKER) (test code = 388) 42 mmol/L 21-29 HH BASE EXCESS ARTERIAL (BEAKER) (test code = 387) 16.0 mmol/L -2.0-3 .0 H PATIENT TEMPERATURE (BEAKER) (test code = 1818) 37.5 C FIO2 (BEAKER) (test code = 1819) 60.0 % POCT-GLUCOSE [id number] 13:48:00* Test Item Value Reference Range Interpretation Comments POC-GLUCOSE METER (BEAKER) (test code = 1538) 104 mg/dL 70-110 : TESTED AT [address], [address]: Pneumatic Tube Operator/Movie Actor ID = [id number] for JUAN C LORA BLOOD GAS, [id number] 08:13:00* Test Item Value Reference Range Interpretation Comments PH ARTERIAL (BEAKER) (test code = 383) 7.49 7.35-7.45 H PCO2 ARTERIAL (BEAKER) (test code = 384) 61 mmHg 35-45 H PO2 ARTERIAL (BEAKER) (test code = 385) 139 mmHg 80-90 H O2 SATURATION ARTERIAL (BEAKER) (test code = 386) 98.8 % 96.0 -97.0 H HCO3 ARTERIAL (BEAKER) (test code = 388) 45 mmol/L 21-29 HH BASE EXCESS ARTERIAL (BEAKER) (test code = 387) 19.3 mmol/L -2.0-3 .0 H PATIENT TEMPERATURE (BEAKER) (test code = 1818) 38.0 C FIO2 (BEAKER) (test code = 1819) 80.0 % Hemoglobin [id number] 08:05:00* Test Item Value Reference Range Interpretation Comments Hemoglobin A1C (test code = 4548-4) 6.7 % 4.3-6.1 H Lab Interpretation (test code = 51910-8) [facility]normal [facility] [id number] 08:05:00* Test Item Value Reference Range Interpretation Comments HEMOGLOBIN A1C (BEAKER) (test code = 368) 6.7 % 4.3-6.1 H BASIC METABOLIC [id number] 05:11:00* Test Item Value Reference Range Interpretation Comments SODIUM (BEAKER) (test code = 381) 142 meq/L 136-145 POTASSIUM (BEAKER) (test code = 379) 4.2 meq/L 3.5-5.1 CHLORIDE (BEAKER) (test code = 382) 90 meq/L 98-107 L CO2 (BEAKER) (test code = 355) 43 meq/L 22-29 HH BLOOD UREA NITROGEN (BEAKER) (test code = 354) 53 mg/dL 7-21 H CREATININE (BEAKER) (test code = 358) 1.01 mg/dL 0.57-1.25 GLUCOSE RANDOM (BEAKER) (test code = 652) 81 mg/dL 70-105 CALCIUM (BEAKER) (test code = 697) 9.2 mg/dL 8.4-10.2 EGFR (BEAKER) (test code = 1092) INSUFFICIENT CLINICAL DATA TO CALCULATE ESTIMATED GFR. Pneumatic Tube Operator ID - LYNN [id number] 05:03:00* Test Item Value Reference Range Interpretation Comments PHOSPHORUS (BEAKER) (test code = 604) 5.2 mg/dL 2.3-4.7 H Pneumatic Tube Operator ID - LYNN [id number] 05:03:00* Test Item Value Reference Range Interpretation Comments MAGNESIUM (BEAKER) (test code = 627) 1.8 mg/dL 1.6-2.6 Pneumatic Tube Operator ID - LYNN MCBC W/PLT COUNT & AUTO [id number] 04:59:00* Test Item Value Reference Range Interpretation Comments WHITE BLOOD CELL COUNT (BEAKER) (test code = 775) 11.6 K/ L 3.5- 10.5 H RED BLOOD CELL COUNT (BEAKER) (test code = 761) 3.65 M/ L 4.63-6 .08 L HEMOGLOBIN (BEAKER) (test code = 410) 8.8 GM/DL 13.7-17.5 L HEMATOCRIT (BEAKER) (test code = 411) 29.2 % 40.1-51.0 L MEAN CORPUSCULAR VOLUME (BEAKER) (test code = 753) 80.0 fL 79. 0-92.2 MEAN CORPUSCULAR HEMOGLOBIN (BEAKER) (test code = 751) 24.1 pg 25.7-32.2 L MEAN CORPUSCULAR HEMOGLOBIN CONC (BEAKER) (test code = 752) 30.1 GM/DL 32.3-36.5 L RED CELL DISTRIBUTION WIDTH (BEAKER) (test code = 412) 16.6 % 11.6-14.4 H PLATELET COUNT (BEAKER) (test code = 756) 366 K/CU MM 150-450 MEAN PLATELET VOLUME (BEAKER) (test code = 754) 9.5 fL 9.4-12 .4 NUCLEATED RED BLOOD CELLS (BEAKER) (test code = 413) 0 /100 WBC 0 -0 NEUTROPHILS RELATIVE PERCENT (BEAKER) (test code = 429) 77 % LYMPHOCYTES RELATIVE PERCENT (BEAKER) (test code = 430) 13 % MONOCYTES RELATIVE PERCENT (BEAKER) (test code = 431) 8 % EOSINOPHILS RELATIVE PERCENT (BEAKER) (test code = 432) 1 % BASOPHILS RELATIVE PERCENT (BEAKER) (test code = 437) 0 % NEUTROPHILS ABSOLUTE COUNT (BEAKER) (test code = 670) 8.95 K/ L 1.78-5.38 H LYMPHOCYTES ABSOLUTE COUNT (BEAKER) (test code = 414) 1.55 K/ L 1.32-3.57 MONOCYTES ABSOLUTE COUNT (BEAKER) (test code = 415) 0.97 K/ L 0. 30-0.82 H EOSINOPHILS ABSOLUTE COUNT (BEAKER) (test code = 416) 0.11 K/ L 0.04-0.54 BASOPHILS ABSOLUTE COUNT (BEAKER) (test code = 417) 0.02 K/ L 0. 01-0.08 IMMATURE GRANULOCYTES-RELATIVE PERCENT (BEAKER) (test code = 2801) 0 % 0-1 CBC W/PLT COUNT & AUTO [id number] 02:30:00* Test Item Value Reference Range Interpretation Comments WHITE BLOOD CELL COUNT (BEAKER) (test code = 775) 11.5 K/ L 3.5- 10.5 H RED BLOOD CELL COUNT (BEAKER) (test code = 761) 3.55 M/ L 4.63-6 .08 L HEMOGLOBIN (BEAKER) (test code = 410) 8.9 GM/DL 13.7-17.5 L HEMATOCRIT (BEAKER) (test code = 411) 28.3 % 40.1-51.0 L MEAN CORPUSCULAR VOLUME (BEAKER) (test code = 753) 79.7 fL 79. 0-92.2 MEAN CORPUSCULAR HEMOGLOBIN (BEAKER) (test code = 751) 25.1 pg 25.7-32.2 L MEAN CORPUSCULAR HEMOGLOBIN CONC (BEAKER) (test code = 752) 31.4 GM/DL 32.3-36.5 L RED CELL DISTRIBUTION WIDTH (BEAKER) (test code = 412) 16.7 % 11.6-14.4 H PLATELET COUNT (BEAKER) (test code = 756) 362 K/CU MM 150-450 MEAN PLATELET VOLUME (BEAKER) (test code = 754) 9.7 fL 9.4-12 .4 NUCLEATED RED BLOOD CELLS (BEAKER) (test code = 413) 0 /100 WBC 0 -0 NEUTROPHILS RELATIVE PERCENT (BEAKER) (test code = 429) 76 % LYMPHOCYTES RELATIVE PERCENT (BEAKER) (test code = 430) 13 % MONOCYTES RELATIVE PERCENT (BEAKER) (test code = 431) 9 % EOSINOPHILS RELATIVE PERCENT (BEAKER) (test code = 432) 1 % BASOPHILS RELATIVE PERCENT (BEAKER) (test code = 437) 0 % NEUTROPHILS ABSOLUTE COUNT (BEAKER) (test code = 670) 8.70 K/ L 1.78-5.38 H LYMPHOCYTES ABSOLUTE COUNT (BEAKER) (test code = 414) 1.51 K/ L 1.32-3.57 MONOCYTES ABSOLUTE COUNT (BEAKER) (test code = 415) 1.03 K/ L 0. 30-0.82 H EOSINOPHILS ABSOLUTE COUNT (BEAKER) (test code = 416) 0.15 K/ L 0.04-0.54 BASOPHILS ABSOLUTE COUNT (BEAKER) (test code = 417) 0.02 K/ L 0. 01-0.08 IMMATURE GRANULOCYTES-RELATIVE PERCENT (BEAKER) (test code = 2801) 0 % 0-1 COMPREHENSIVE METABOLIC [id number] 01:15:00* Test Item Value Reference Range Interpretation Comments TOTAL PROTEIN (BEAKER) (test code = 770) 8.3 gm/dL 6.0-8.3 ALBUMIN (BEAKER) (test code = 1145) 3.0 g/dL 3.5-5.0 L ALKALINE PHOSPHATASE (BEAKER) (test code = 346) 168 U/L 40-150 H BILIRUBIN TOTAL (BEAKER) (test code = 377) 0.6 mg/dL 0.2-1.2 SODIUM (BEAKER) (test code = 381) 140 meq/L 136-145 POTASSIUM (BEAKER) (test code = 379) 4.3 meq/L 3.5-5.1 CHLORIDE (BEAKER) (test code = 382) 89 meq/L 98-107 L CO2 (BEAKER) (test code = 355) 44 meq/L 22-29 HH BLOOD UREA NITROGEN (BEAKER) (test code = 354) 53 mg/dL 7-21 H CREATININE (BEAKER) (test code = 358) 1.00 mg/dL 0.57-1.25 GLUCOSE RANDOM (BEAKER) (test code = 652) 86 mg/dL 70-105 CALCIUM (BEAKER) (test code = 697) 9.3 mg/dL 8.4-10.2 AST (SGOT) (BEAKER) (test code = 353) 27 U/L 5-34 ALT (SGPT) (BEAKER) (test code = 347) 22 U/L 6-55 EGFR (BEAKER) (test code = 1092) INSUFFICIENT CLINICAL DATA TO CALCULATE ESTIMATED GFR. Pneumatic Tube Operator ID - LYNN MCreatine Kinase (CK)2020-04-16 01:10:00* Test Item Value Reference Range Interpretation Comments Total CK (test code = 2157-6) 12 U/L 29-200 L ROSALIO (test code = ROSALIO) Pneumatic Tube Operator ID - LYNN M Lab Interpretation (test code = 10409-0) [facility]2020-04-16 01:10:00* Test Item Value Reference Range Interpretation Comments CREATINE KINASE TOTAL (BEAKER) (test code = 380) 12 U/L 29-20 0 L Pneumatic Tube Operator ANDREZ - LYNN MPOCT-GLUCOSE [id number] 00:54:00* Test Item Value Reference Range Interpretation Comments POC-GLUCOSE METER (BEAKER) (test code = 1538) 83 mg/dL 70-110 : TESTED AT [facility] [address] [place], [address]: Pneumatic Tube Operator/Movie Actor ID = [id number] for Denny Carr URINALYSIS W/ REFLEX URINE [id number] 00:19:00* Test Item Value Reference Range Interpretation Comments COLOR (BEAKER) (test code = 470) Light Yellow CLARITY (BEAKER) (test code = 469) Clear SPECIFIC GRAVITY UA (BEAKER) (test code = 468) 1.008 1.001-1 .035 PH UA (BEAKER) (test code = 467) 7.0 5.0-8.0 PROTEIN UA (BEAKER) (test code = 464) Negative Negative GLUCOSE UA (BEAKER) (test code = 365) Negative Negative KETONES UA (BEAKER) (test code = 371) Negative Negative BILIRUBIN UA (BEAKER) (test code = 462) Negative Negative BLOOD UA (BEAKER) (test code = 461) Negative Negative NITRITE UA (BEAKER) (test code = 465) Negative Negative LEUKOCYTE ESTERASE UA (BEAKER) (test code = 466) Negative Negat chris UROBILINOGEN UA (BEAKER) (test code = 463) 2.0 mg/dL 0.2-1.0 H RBC UA (BEAKER) (test code = 519) 1 /HPF WBC UA (BEAKER) (test code = 520) < /HPF BACTERIA (BEAKER) (test code = 517) Occasional MUCUS (BEAKER) (test code = 1574) Rare SQUAMOUS EPITHELIAL (BEAKER) (test code = 516) < /HPF SOURCE(BEAKER) (test code = 2795) Pneumatic Tube Operator ID - [auto]Pneumatic Tube Operator ID - techPROTHROMBIN TIME/[id number] 00:00:00* Test Item Value Reference Range Interpretation Comments PROTIME (BEAKER) (test code = 759) 15.6 seconds 11.9-14.2 H INR (BEAKER) (test code = 370) 1.3 <=5.9 Effective 04/21/2019: PT Reference Range ChangeNew: 11.9-14.2 Previous: 11.7-14. 7RECOMMENDED COUMADIN/WARFARIN INR THERAPY RANGESSTANDARD DOSE: 2.0-3.0 Include s: PROPHYLAXIS for venous thrombosis, systemic embolization; TREATMENT for venou s thrombosis and/or pulmonary embolus.HIGH RISK: Target INR is 2.5-3.5 for patie nts wiht mechanical heart valves.BLOOD GAS, [id number] 23:47:00* Test Item Value Reference Range Interpretation Comments PH ARTERIAL (BEAKER) (test code = 383) 7.43 7.35-7.45 PCO2 ARTERIAL (BEAKER) (test code = 384) 71 mmHg 35-45 HH PO2 ARTERIAL (BEAKER) (test code = 385) 61 mmHg 80-90 L O2 SATURATION ARTERIAL (BEAKER) (test code = 386) 90.6 % 96.0 -97.0 L HCO3 ARTERIAL (BEAKER) (test code = 388) 46 mmol/L 21-29 HH BASE EXCESS ARTERIAL (BEAKER) (test code = 387) 18.4 mmol/L -2.0-3 .0 H PATIENT TEMPERATURE (BEAKER) (test code = 1818) 37.0 C FIO2 (BEAKER) (test code = 1819) 45.0 % RAD, CHEST, 1 VIEW, NON [id number] 23:21:00Post-intubationReason for exam:-> PneumothoraxShould this be performed at the bedside?->YesFINAL REPORT RAD, CHEST, 1 VIEW, NON DEPT INDICATION: Pneumothorax COMPARISON: Prior day's exam FINDINGS: Portable frontal view of the chest. IMPRESSION: Support Lines: There are pigtail chest tubes overlying the peripheral bilateral chest bases. A tracheostomy cannula is in place with the tip overlying the mid trachea. A left PICC overlies the cavoatrial junction.Lungs and pleura: Left basilar and right mid lung airspace opacities suggestive of edema and/or multifocal pneumonitis. There are small bilateral pleural effusions. There is a questionable trace right basilar loculated pneumothorax.Heart and mediastinum: Unremarkable cardiomediastinal silhouette. Additional findings: None. Signed: Yue Parkerort Verified Date/Time: 04/15/2020 23:21:39 Capillary blood glucose measurement by glucometer (mass/volume)2020-04-15 20:10:00* Test Item Value Reference Range Interpretation Comments Bedside Glucose (test code = 46807-5) 110 70-120 Meter ID: [id number] [facility]Blood leukocytes automated count (number/volume)2020-04-15 04:50:00* Test Item Value Reference Range Interpretation Comments White Blood Count (test code = 6690-2) 6.70 4.8-10.8 [facility] erythrocytes automated count (number/volume)2020-04-15 04:50:00* Test Item Value Reference Range Interpretation Comments Red Blood Count (test code = 789-8) 3.10 4.3-5.7 [facility] hemoglobin measurement (moles/volume)2020-04-15 04:50:00* Test Item Value Reference Range Interpretation Comments Hemoglobin (test code = 51507-5) 7.8 14.0-18.0 [facility]villeAutom[facility] blood hematocrit (volume fraction)2020-04-15 04:50:00* Test Item Value Reference Range Interpretation Comments Hematocrit (test code = 4544-3) 25.7 38.2-49.6 [facility]villeAutomated erythrocyte mean corpuscular [id number] 04:50:00* Test Item Value Reference Range Interpretation Comments Mean Corpuscular Volume (test code = 787-2) 82.9 81-99 [facility] StephenvilleAutomated erythrocyte mean corpuscular hemoglobin (mass per erythrocyte)2020-04-15 04:50:00* Test Item Value Reference Range Interpretation Comments Mean Corpuscular Hemoglobin (test code = 785-6) 25.2 28-32 [facility] StephenvilleAutomated erythrocyte mean corpuscular hemoglobin concentration measurement (mass/volume)2020-04-15 04:50:00* Test Item Value Reference Range Interpretation Comments Mean Corpuscular Hemoglobin Concent (test code = 786-4) 30.4 31-35 [facility] StephenvilleRDW HgyWb-Vzw6805-70-23 04:50:00* Test Item Value Reference Range Interpretation Comments Red Cell Distribution Width (test code = 28669-6) 17.0 11.7 -14.4 [facility] StephenvilleAutomated blood platelet count (count/volume)2020-04-15 04:50:00* Test Item Value Reference Range Interpretation Comments Platelet Count (test code = 777-3) 309 140-360 [facility] StephenvilleAutomated blood segmented neutrophil count as percentage of total jxvtqrgktu3210-73-75 04:50:00* Test Item Value Reference Range Interpretation Comments Neutrophils (%) (Auto) (test code = 74542-5) 63.6 38.7-80.0 [facility] StephenvilleAutomated blood lymphocyte count as percentage ot total sqozapsgaf9922-64-08 04:50:00* Test Item Value Reference Range Interpretation Comments Lymphocytes (%) (Auto) (test code = 736-9) 21.8 18.0-39.1 [facility] StephenvilleAutomated blood monocyte count as percentage of total fiueasfnov6472-19-30 04:50:00* Test Item Value Reference Range Interpretation Comments Monocytes (%) (Auto) (test code = 5905-5) 11.9 4.4-11.3 [facility] StephenvilleAutomated blood eosinophil count as percentage of total atjqlgsdfi8632-20-16 04:50:00* Test Item Value Reference Range Interpretation Comments Eosinophils (%) (Auto) (test code = 713-8) 2.2 0.0-6.0 [facility] StephenvilleAutomated blood basophil count as percentage of total xyjjhszhux5006-92-96 04:50:00* Test Item Value Reference Range Interpretation Comments Basophils (%) (Auto) (test code = 706-2) 0.1 0.0-1.0 [facility] StephenvilleFluoroscopic procedure less than one hour ugvnuvni5310-28-59 04:50:00* Test Item Value Reference Range Interpretation Comments IM GRANULOCYTES % (test code = IM GRANULOCYTES %) 0.4 0.0- 1.0 [facility] StephenvilleAutomated blood neutrophil count 2020-04-15 04:50:00* Test Item Value Reference Range Interpretation Comments Neutrophils # (Auto) (test code = 751-8) 4.3 2.1-6.9 [facility] StephenvilleBlood lymphocytes count (number/volume) 2020-04-15 04:50:00* Test Item Value Reference Range Interpretation Comments Lymphocytes # (Auto) (test code = 00022-9) 1.5 1.0-3.2 [facility] StephenvilleBlood monocytes automated count (number/volume)2020-04-15 04:50:00* Test Item Value Reference Range Interpretation Comments Monocytes # (Auto) (test code = 742-7) 0.8 0.2-0.8 [facility] StephenvilleAutomated blood eosinophil count 2020-04-15 04:50:00* Test Item Value Reference Range Interpretation Comments Eosinophils # (Auto) (test code = 711-2) 0.2 0.0-0.4 [facility] StephenvilleAutomated blood basophil count (count/volume)2020-04-15 04:50:00* Test Item Value Reference Range Interpretation Comments Basophils # (Auto) (test code = 704-7) 0.0 0.0-0.1 [facility] StephenvilleFluoroscopic procedure less than one hour pzpgmjyn3395-74-47 04:50:00* Test Item Value Reference Range Interpretation Comments Absolute Immature Granulocyte (auto (myesha t code = Absolute Immature Granulocyte (auto) 0.03 0-0.1 [facility] sodium [facility] (moles/volume)2020-04-15 04:50:00* Test Item Value Reference Range Interpretation Comments Sodium Level (test code = 2951-2) 139 136-145 [facility] plasma potassium measurement (moles/volume)2020-04-15 04:50:00* Test Item Value Reference Range Interpretation Comments Potassium Level (test code = 2823-3) 4.0 3.5-5.1 [facility] plasma chloride measurement (moles/volume)2020-04-15 04:50:00* Test Item Value Reference Range Interpretation Comments Chloride Level (test code = 2075-0) 92 98-107 [facility] plasma carbon dioxide, total measurement (moles/volume)2020-04-15 04:50:00* Test Item Value Reference Range Interpretation Comments Carbon Dioxide Level (test code = 2028-9) 40 22-29 [facility] plasma anion ngf4557-83-23 04:50:00* Test Item Value Reference Range Interpretation Comments Anion Gap (test code = 74013-7) 11.0 8-16 [facility] plasma urea nitrogen measurement (mass/volume)2020-04-15 04:50:00* Test Item Value Reference Range Interpretation Comments Blood Urea Nitrogen (test code = 3094-0) 52 7-26 [facility] plasma creatinine measurement (mass/volume)2020-04-15 04:50:00* Test Item Value Reference Range Interpretation Comments Creatinine (test code = 2160-0) 1.03 0.72-1.25 [facility] plasma urea nitrogen/creatinine mass epmgn9673-35-60 04:50:00* Test Item Value Reference Range Interpretation Comments BUN/Creatinine Ratio (test code = 3097-3) 50 6-25 [facility] StephenvilleEstimated glomerular filtration rate (GFR) ekjmdijjptdoj6549-88-75 04:50:00* Test Item Value Reference Range Interpretation Comments Estimat Glomerular Filtration Rate (test code = 740612871) > 60 >60 Ranges were taken from the National Kidney Disease Education Program and the [facility] literature.Reference ranges:60 or greater: Yrviwk25-31 ( for 3 consecutive months): Chronic kidney disease 15 or less: Kidney failureTexas [facility] Hospital StephenvilleGlucose maykfixjgkk2979-47-85 04:50:00* Test Item Value Reference Range Interpretation Comments Glucose Level (test code = DBS7894) 117 74-118 [facility] calcium measurement (mass/volume)2020-04-15 04:50:00* Test Item Value Reference Range Interpretation Comments Calcium Level (test code = 34305-3) 8.6 8.4-10.2 [facility] plasma total bilirubin measurement (mass/volume)2020-04-15 04:50:00* Test Item Value Reference Range Interpretation Comments Total Bilirubin (test code = 1975-2) 0.5 0.2-1.2 [facility] StephenvilleFluoroscopic procedure less than one hour lmxhgbdv2493-78-96 04:50:00* Test Item Value Reference Range Interpretation Comments Aspartate Amino Transf (AST/SGOT) (test code = Aspartate Amino Transf (AST/SGOT)) 17 5-34 [facility] plasma alanine aminotransferase measurement (enzymatic activity/volume)2020-04-15 04:50:00* Test Item Value Reference Range Interpretation Comments Alanine Aminotransferase (ALT/SGPT) (test code = 1742-6) 22 0-55 [facility] plasma protein measurement (mass/volume)2020-04-15 04:50:00* Test Item Value Reference Range Interpretation Comments Total Protein (test code = 2885-2) 7.0 6.5-8.1 [facility] or plasma albumin measurement (mass/volume)2020-04-15 04:50:00* Test Item Value Reference Range Interpretation Comments Albumin (test code = 1751-7) 2.1 3.5-5.0 [facility] StephenvillePlasma globulin measurement (mass/volume) 2020-04-15 04:50:00* Test Item Value Reference Range Interpretation Comments Globulin (test code = 62141-2) 4.9 2.3-3.5 [facility] plasma albumin/globulin mass krhcr9332-97-14 04:50:00* Test Item Value Reference Range Interpretation Comments Albumin/Globulin Ratio (test code = 1759-0) 0.4 0.8-2.0 [facility] plasma alkaline phosphatase measurement (enzymatic activity/volume)2020-04-15 04:50:00* Test Item Value Reference Range Interpretation Comments Alkaline Phosphatase (test code = 6768-6) 153 40-150 [facility] StephenvilleBNP Sfj-oRyn7869-45-23 04:50:00* Test Item Value Reference Range Interpretation Comments B-Type Natriuretic Peptide (test code = 26317-3) 409.7 0-100 [facility] Hendersontool gastrointestinal hemoglobin fvluvkpwi8989-91-03 22:00:00* Test Item Value Reference Range Interpretation Comments Stool Occult Blood (test code = 2335-8) NEGATIVE NEGATIVE [facility] StephenvilleCT CHEST [id number] 22:00:00 [facility] [address] [address] Patient Name: SUKHDEEP TINOCO MR #: [id number] : 1985 Age/Sex: 35/M Req #: [id number] Adm Physician: ANANYA KUMAR MD Ordered by: HUGH CROW MD Report #: [id number] Location: ICU R oom/Bed: ICU [facility] Procedure: [id number] CT/[facility] Exam Date: 04/14/20 Exam Time: 2042 REPORT STATUS: Signed EXAM: CT Chest witho ut contrast INDICATION: Follow-up right-sided loculated pneumothoraces. COMPARISON: Chest radiograph 04-13-[address] chest 04-10-2020. TECHNIQUE : Chest was scanned utilizing a multidetector helical scanner from the lung ap ex through the level of the adrenal glands without administration of IV contra st. Coronal and sagittal reformations were obtained. Routine protocol was pe rformed. IV CONTRAST: None. RADIATION DOSE: Total DLP : 553.9 mGy*cm Estimated effective dose: (DLP x 0.014 x size facto r) mSv COMPLICATIONS: None FINDINGS: LINES/ TUBES: Trache ostomy tube terminates in the midtrachea. Left arm PICC terminates in the SVC. Right and left basilar pleural pigtail drainage catheter. LUNGS AND AIRW AYS/PLEURA: There is increased size of large loculated right-sided pneumothora maged, most pronounced in the apex, measuring up to 5.3 cm and in the base, mallika uring up to 11.3 cm, previously 5.6 cm. Component at the right base previously was mixed with fluid and air, and now has less fluid and more air. There is a small to moderate right-sided posterior predominantly layering hydropneumotho rax (predominately fluid) with some fluid loculation along the right upper mathieu g. Small to moderate left partially loculated posterior basilar predominate hy dropneumothorax, predominately fluid-filled with a small amount of air. Again noted are bilateral diffuse multifocal groundglass and patchy consolidat chris opacities, most confluent in the bilateral lower lobes and right upper lob e. Scattered smooth intralobular septal thickening. HEART AND MEDIASTINUM: The thyroid gland is normal. Again noted is mediastinal lymphadenopathy, for e xample a right paratracheal lymph node, measuring up to 2.0 cm on series 2, im age 43, previously 2.[address] from 04/10/2020, likely reactive. Limited evalu ation in the absence of intravenous contrast. There is mucous and debris withi n the upper trachea. No cardiomegaly or pericardial effusion. Coronary atheros clerosis. UPPER ABDOMEN: Limited non-contrast views of the upper abdomen se condary to lack of contrast and streak artifact from arms. Splenomegaly, measu ring up to 16.9 cm. BONES: The visualized bony thorax is within normal li mits. SOFT TISSUES: Diffuse mild anasarca. IMPRESSION: Increased la rge loculated right-sided pneumothoraces, most pronounced in the right apex an d right lung base. No mediastinal shift. Additional small to moderate bila teral predominately layering but partially loculated pleural effusions with sm all amount of pleural air. Persistent multifocal groundglass and patchy con solidative opacities, which may represent a combination of pneumonia (includin g atypical pneumonia) or aspiration with superimposed pulmonary edema. Li sydnee and tubes as above. Debris within the trachea, increasing risk for aspirat ion. The above findings were discussed with DARRON Gabriel on 04/14/2020 at 1017 PM. Signed by: Dr. Maribell Morejon MD on 04/14/2020 10:23 PM Dictate d By: MARIBELL MOREJON MD 22 T ranscribed By: JOANN on 04/14/202222 COPY TO: HUGH CROW MD CHEST SINGLE (PORTABLE)2020-04-13 15:01:00 [facility] [address] [address] Patient Name: SUKHDEEP TINOCO MR #: [id number] : 1985 Age/Sex: 35/M Req #: [id number] Adm Physician: ANANYA KUMAR MD Ordered by: ANANYA KUMAR MD Report #: [id number] Location: ICU Room/Bed: ICU [facility] Procedure: [id number] DX/CHES T SINGLE (PORTABLE) Exam Date: 04/13/20 Exam Time: 1 438 REPORT STATUS: Signed X-ray chest portable frontal Comparison: 04/12/2020 at 1531 History: ETT Findings: There is a tracheostomy and a left arm PICC line with the tip overl timothy SVC, a left pleural drain and a right pleural drain with a poorly formed pigtail which are unchanged. In the interim the second upper right pleural napoleon in has been removed. There is persistent lucency along the right atrial border in the lower right hemithorax. Possibility of a small right pneumothorax is n ot ruled out. Crosstable lateral decubitus view would be ideal to rule it out. The findings of right and left lung opacities and infiltrates remain largely unchanged. Right pleural-based opacities also remain unchanged. Impression: Interval removal of the right upper pleural drain. A right pneumothorax canno t be entirely ruled out. Crosstable lateral decubitus view should be considere d. No major change in the pulmonary findings. Signed by: Shweta Godfrey MD on 04/13/2020 3:08 PM Dictated By: SHWETA GODFREY MD Electronically Sign ed By: SHWETA GODFREY MD on 04/13/20 2572 Transcribed By: JOANN on 04/13/20 6218 COPY TO: ANANYA KUMAR MD CHEST SINGLE (PORTABLE)2020-04-12 15:51:[address] [address] Patient Name: SUKHDEEP TINOCO MR #: [id number] : 1985 Age/Sex: 35/M Req #: [id number] Adm Physician: ANANYA KUMAR MD Ordered by: HUGH CROW MD Report #: [id number] Location: ICU Room/Bed: ICU [facility] Procedure: [id number] DX/CHEST SINGLE (PORTABLE) Exam Date: 04/12/20 Exam Time: 153 0 REPORT STATUS: Signed TECHNIQU E: Frontal view of the chest. INDICATION: 35-year-old man after left chest tube removal. COMPARISON: Chest radiograph 04/11/2020. FINDINGS: LINES/TUBES: Interval removal of the large bore left chest tube. Other lines /tubes are unchanged. LUNGS: Persistent bilateral airspace opacities, incre ased on the right. PLEURA: No significant change in bilateral loculated hyd ropneumothoraces. HEART AND MEDIASTINUM: The cardiomediastinal silhouette i s unchanged. SOFT TISSUES AND BONES: Unremarkable. IMPRESSION: Li sydnee/tubes as above. Bilateral airspace opacities, increased on the right. Otherwise, no significant change since 04/11/2020. Signed by: Anay patel MD on 04/12/2020 3:55 PM Dictated By: ANAY NEIL MD Electronica ll Signed By: ANAY NEIL MD on 04/12/20 8458 Transcribed By: JOANN on 1500 COPY TO: HUGH CROW MD Blood platelets count by estimate (number/volume)2020-04-12 04:30:00* Test Item Value Reference Range Interpretation Comments Platelet Estimate (test code = 89434-3) ADEQUATE [facility] StephenvillePlatelet yckhfpqvpa9066-14-61 04:30:00* Test Item Value Reference Range Interpretation Comments Platelet Morphology Comment (test code = 77320-6) NORMAL [facility] StephenvilleBlst. [facility] polychromasia detection by light sfohdngcng5228-03-64 04:30:00* Test Item Value Reference Range Interpretation Comments Polychromasia (test code = 83556-2) FEW [facility] hypochromia detection by light wbukjrczzt9599-03-83 04:30:00* Test Item Value Reference Range Interpretation Comments Hypochromasia (test code = 728-6) SLIGHT [facility] anisocytosis detection by light esikuxauvo1468-47-72 04:30:00* Test Item Value Reference Range Interpretation Comments Anisocytosis (test code = 702-1) MODERATE [facility] macrocytes detection by light iytfeakepo8761-87-00 04:30:00* Test Item Value Reference Range Interpretation Comments Macrocytosis (test code = 738-5) SLIGHT [facility] StephenvilleRB uyztlisemc0486-87-10 04:30:00* Test Item Value Reference Range Interpretation Comments Red Cell Morphology Comment (test code = 6742-1) ABNORMAL [facility] StephenvilleCHES SINGLE (PORTABLE)2020-04-11 10:09:00 [address] [address] Patient Name: SUKHDEEP TINOCO MR #: [id number] : 1985 Age/Sex: 35/M Req #: [id number] Adm Physician: ANANYA KUMAR MD Ordered by: HUGH CROW MD Report #: [id number] Location: ICU Room/Bed: [address] [place] [address] Procedure: [id number] DX/CHEST SINGLE (PORTABLE) Exam Date: 04/11/20 Exam Time: 085 0 REPORT STATUS: Signed TECHNIQU E: Frontal view of the chest. INDICATION: resp failure 20200411 0 850 COMPARISON: Chest CT prior day. IMPRESSION: Extremely poor tech nique. Lines and hardware: Stable. Heart and mediastinum: Stable. Lungs an d pleura: Multifocal loculated pleural effusions with multifocal patchy airspa ce opacities. Small left pleural effusion. Left apical and known right loculat ed pneumothoraces. Soft tissues and bones: No acute abnormality. Signed by: Rufina Mart MD on 04/11/2020 10:12 AM Dictated By: RUFINA GERARDO DO 1012 Transcri bed By: JOANN on 04/11/20 1012 COPY TO: HUGH CROW MD Arterial blood pH cmaifhsjkbh1100-69-60 09:00:00* Test Item Value Reference Range Interpretation Comments Arterial Blood pH (test code = 2744-1) 7.32 7.35-7.45 [facility] StephenvillepCO2 FmuQ2144-00-08 09:00:00* Test Item Value Reference Range Interpretation Comments Arterial Blood Partial Pressure CO2 (test code = 2019-8) 72 35-45 [facility] StephenvillepCO2 NcqL2708-68-53 09:00:00* Test Item Value Reference Range Interpretation Comments Arterial Blood Partial Pressure O2 (test code = 2019-8) 75 80-105 [facility] StephenvilleArterial blood bicarbonate measurement (moles/volume)2020-04-11 09:00:00* Test Item Value Reference Range Interpretation Comments Arterial Blood HCO3 (test code = 1960-4) 39 22-26 [facility] StephenvilleArterial blood base excess by calculation 2020-04-11 09:00:00* Test Item Value Reference Range Interpretation Comments Arterial Blood Base Excess (test code = 1925-7) 11.0 -2-3 [facility] StephenvilleArterial blood oxygen saturation wstewlfrbsv2336-25-62 09:00:00* Test Item Value Reference Range Interpretation Comments Arterial Blood Oxygen Saturation (test code = 2708-6) 93.0 95-98 [facility] StephenvilleFluoroscopic procedure less than one hour daadzylg6224-58-30 09:00:00* Test Item Value Reference Range Interpretation Comments FiO2 (test code = FiO2) 45 [facility] StephenvilleCT CHEST BR1887-14-84 14:24:00 [facility] [address] [address] Patient Name: SUKHDEEP TINOCO MR #: [id number] : 1985 Age/Sex: 35/M Req #: [id number] Adm Physician: ANANYA KUMAR MD Ordered by: ANANYA KUMAR MD Report #: [id number] Location: ICU Room/Bed: [address] [place] [address] Procedure: [id number] CT/CT C HEST WO Exam Date: 04/10/20 Exam Time: 1312 REPORT STATUS: Signed CT of the chest , without contrast, 04/10/2020. History: Bilateral loculated pneu mothoraces. Comparison: 04/07/2020. Technique: Multidetector CT scannin g of the chest was performed from the level of the apices to the upper abdomen without contrast. Coronal and sagittal multiplanar reformations were obtaine d. RADIATION DOSE: Total DLP: 501 mGy*cm Dose modulation, ite rative reconstruction, and/or weight based adjustment of the mA/kV was utilize d to reduce the radiation dose to as low as reasonably achievable. Di scussion: Evaluation is limited without IV contrast. Chest: The heart, aorta , and pulmonary vessels are stable. Mediastinal adenopathy is unchanged. Left medial surgical chest tube, left anterior pigtail catheter, right anterior pi gtail catheter, and right lateral pigtail catheter are unchanged in position. Small medial left pneumothorax is unchanged. Multiple right-sided loculate d pneumothoraces are present, all slightly increased in size, especially at th e right lung base anteriorly with a pocket measuring up to 5.6 cm in depth. Diffuse bilateral patchy consolidation and ground glass opacities are without significant change. Small bilateral pleural effusions are again noted. Limited evaluation of the upper abdomen shows normal adrenal glands. Bones and sof t tissues: No acute abnormality. IMPRESSION: Slight increase in size o f multiple loculated right sided pneumothoraces. Bilateral chest tubes are unc hanged in position. Bilateral pulmonary opacities are unchanged. Signed b y: Erich Daniel on 04/10/2020 2:32 PM Dictated By: ERICH DANIEL MD Elec tronically Signed By: ERICH DANIEL MD on 04/10/20 1432 Transcribed By: JOANN on 04/10/20 1432 COPY TO: ANANYA KUMAR MD Prothrombin time (PT) in platelet poor plasma by coagulation zaeyu7336-68-77 14:20:00* Test Item Value Reference Range Interpretation Comments Prothrombin Time (test code = 5902-2) 13.5 11.9-14.5 [facility] StephenvilleINR in Platelet poor plasma by Coagulation jwlaz1748-91-14 14:20:00* Test Item Value Reference Range Interpretation Comments Prothromb Time International Ratio (test code = 6301-6) 0.97 Oral Anticoagulant Therapy INR Values:1. Low Intensity Therapy 1.5 - 2.02 . Moderate Intensity Therapy 2.0 - 3.03. High Intensity Therapy(1) 2.5 - 3. 54. High Intensity Therapy(2) 3.0 - 4.05. Panic Value INR > 5.0 [facility] StephenvilleActivated partial thromboplastin time (aPTT) in platelet poor plasma by coagulation gaikw2726-11-81 14:20:00* Test Item Value Reference Range Interpretation Comments Activated Partial Thromboplast Time (test code = 42930-8) 32.9 23.8-35.5 [facility] StephenvilleCT BRAIN [id number] 13:46:00 [facility] [address] [address] Patient Name: SUKHDEEP TINOCO MR #: [id number] : 1985 Age/Sex: 35/M Req #: [id number] Adm Physician: ANANYA KUMAR MD Ordered by: ANANYA KUMAR MD Report #: [id number] Location: ICU Room/Bed: ICU [facility] Procedure: [id number] CT/CT B Exam Date: 04/10/20 Exam Time: 1312 REPORT STATUS: Signed CT BRAIN WO H ISTORY: Hypoxemia, hyperglycemia COMPARISON: Head CT 04/07/2020 TECHNI QUE: Noncontrast axial scans were obtained from skull base to the vertex. Co nereyda and sagittal reconstructions obtained from the axial data. One or more of the following dose reduction techniques were used: Automated exposure contr ol, adjustment of the mA and/or kV according to patient size, and/or utilizati on of iterative reconstruction technique. Beam hardening artifacts obscure michelle e details. DISCUSSION: Scalp/Skull: Unremarkable. Brain sulci: Samra ropriate for patient's age. Ventricles: Normal in size and configuration. No hydrocephalus. Extra-axial spaces: No masses or fluid collections. P arenchyma: No abnormal densities. No mass, hemorrhage, or large vascular te rritory acute infarct. Dural sinuses: No abnormal densities. Sellar/Supr asellar region: Intact. Skull base: Intact. Incidental findings: Small bilat eral mastoid effusions are present. IMPRESSION: No acute intracranial abnormalities. Signed by: Dr. Jillian Ashley M.D. on 04/10/2020 1:54 PM Dictated By: JILLIAN ASHLEY MD 0799 Transcribed By: JOANN on 04/10/20 135 COPY TO: ANANYA KUMAR MD Serum or plasma triglyceride measurement (mass/volume)2020-04-10 04:50:00* Test Item Value Reference Range Interpretation Comments Triglycerides Level (test code = 2571-8) 175 0-149 [facility] cholesterol [facility] (mass/volume)2020-04-10 04:50:00* Test Item Value Reference Range Interpretation Comments Cholesterol Level (test code = 2093-3) 140 0-199 Less than 200 mg/dL Low Pubm960 - 239 mg/dL Borderline Ngcb431 m g/dl and greater High Risk [facility] cholesterol in LDL measurement (mass/volume) 2020-04-10 04:50:00* Test Item Value Reference Range Interpretation Comments LDL Cholesterol (test code = 2089-1) 90 60-130 [facility] HDL measurement (mass/volume)2020-04-10 04:50:00* Test Item Value Reference Range Interpretation Comments HDL Cholesterol (test code = 2085-9) 15 40-60 [facility] total cholesterol/cholesterol in HDL mass [id number] 04:50:00* Test Item Value Reference Range Interpretation Comments Cholesterol/HDL Ratio (test code = 9830-1) 9.3 3.9-4.7 [facility] myoglobin [facility] (mass/volume)2020-04-10 04:30:00* Test Item Value Reference Range Interpretation Comments Myoglobin (test code = 2639-3) 50 28-72 Performed at: - [facility] [address] [id number] Director: Thai Lao MD, Phone: [phone] Health [facility]IR [id number] 16:48:00 [facility] [address] [place], [place] [address] Patient Name: SUKHDEEP TINOCO MR #: [id number] : 1985 Age/Sex: 35/M Req #: [id number] Adm Physician: ANANYA KUMAR MD Ordered by: HUGH CROW MD Report #: [id number] Location: ICU Room/Bed: ICU [facility] Procedure: [id number] DX/IR TAO SULT Exam Date: Exam Time: REPORT STATUS: Signed Date and Time: 04/05/2020 Pro cedure: Bilateral pleural drainage catheter placement miter operator: Dr. Arnett Pre-operative diagnosis: Bilateral pneumothoraces Post-operativ e diagnosis: Bilateral pneumothoraces Conscious Sedation: Propofol and fent anyl infusions per ICU team. The patient's heart rate and pulse oximetry were continuously monitored by the accompanying ICU nurse. Blood pressure was sia tored at 5 minute intervals. Additional Medications: Lidocaine 1% for local anesthesia Contrast used: None Estimated blood loss: Minimal Specimens : None Implants: 10 Zimbabwean locking loop drainage catheters x2 Condition at c ompletion: Critical Disposition: Returned to ICU Complications: No immediate DISCUSSION: Informed consent was obtained and documented in the medic al record after discussion of risks and benefits. The patient was placed in th e supine position on the CT couch and marker grids were placed on the right an d left anterior chest wall. Limited CT was performed, confirming moderate bila teral pneumothoraces. Suitable percutaneous approaches to the left and right pneumothoraces were identified and the overlying skin marked. The right and l eft anterior chest wall was then prepped and draped in the standard sterile fa shion. Attention was first turned to the left pneumothorax. 1% lidocaine wa s infiltrated into the skin and subcutaneous tissues of the left anterior ches t wall for local anesthesia. Then under intermittent CT guidance, an 18-gauge singlewall needle was advanced into the anterior left pneumothorax, with free aspiration of air confirming appropriate positioning. A 0.0 3 5-in. wire was then advanced through the needle and coiled within the pleural space. The nee dle was removed over the wire and the tract was dilated. Then, a 10 [place]an loc mone loop drainage catheter was advanced over the wire, which was then removed . The catheter was secured to the skin with monofilament nylon suture and a st erile dressing was applied. The catheter was connected to pleural evacuation d evice and placed on on waterseal. Attention was then turned to the right pn eumothorax. 1% lidocaine was infiltrated into the skin and subcutaneous tissue s for local anesthesia. Then, again under intermittent CT guidance, an 18-gaug e singlewall needle was advanced into the pneumothorax with free aspiration of air confirming appropriate positioning. A 0.0 3 5-in. wire was then advanced through the needle and coiled within the pleural space. The needle was removed over the wire, the tract was dilated, and a 10 [place]an locking loop drainage c atheter was advanced over the wire, which was then removed. The catheter was s ecured to the skin with monofilament nylon suture and a sterile dressing was a pplied. The catheter was connected to a pleural evacuation device and placed o n waterseal. Final CT image shows marked improvement in the right and left pneumothoraces, with appropriately positioned pleural drainage catheters. FINDINGS: Moderate bilateral pneumothoraces. IMPRESSION: Succes sful placement of bilateral anterior approach pleural drainage catheters under CT guidance. The catheters should remain to -20 cm water wall suction over night. Further management at the discretion of the referring physician Dr. Collin sheehan. Signed by: Dr. Sammie Arnett M.D. on 04/08/2020 4:56 PM Dict ated By: SAMMIE ARNETT MD 1656 COPY TO: HUGH CROW MD PLEURAL DRAINAGE W/ [id number] 16:48:00 [place] [address] Patient Name: SUKHDEEP TINOCO MR #: [id number] : 1985 Age/Sex: 35/M Req #: [id number] Adm Physician: ANANYA KUMAR MD Ordered by: RICARDO LEMA MD Report #: [id number] Location: ICU Room/Bed: ICU [facility] Procedure: [id number] IR/PLEURAL DRAINAGE W/ IMAGING Exam Date: Exam Time: REPORT STATUS: Signed Date and Time: Procedure: Bilateral pleural drainage catheter placement Prima ry forder operator: Dr. Arnett Pre-operative diagnosis: Bilateral pneumothoraces Post-operative diagnosis: Bilateral pneumothoraces Conscious Sedation: P ropofol and fentanyl infusions per ICU team. The patient's heart rate and puls e oximetry were continuously monitored by the accompanying ICU nurse. Blood p ressure was monitored at 5 minute intervals. Additional Medications: Lidoca ine 1% for local anesthesia Contrast used: None Estimated blood loss: Min imal Specimens: None Implants: 10 Zimbabwean locking loop drainage catheters x2 Condition at completion: Critical Disposition: Returned to ICU Complicatio ns: No immediate DISCUSSION: Informed consent was obtained and documen yeyo in the medical record after discussion of risks and benefits. The patient was placed in the supine position on the CT couch and marker grids were placed on the right and left anterior chest wall. Limited CT was performed, confirmi ng moderate bilateral pneumothoraces. Suitable percutaneous approaches to the left and right pneumothoraces were identified and the overlying skin marked. T he right and left anterior chest wall was then prepped and draped in the stand naye sterile fashion. Attention was first turned to the left pneumothorax. 1% lidocaine was infiltrated into the skin and subcutaneous tissues of the le ft anterior chest wall for local anesthesia. Then under intermittent CT guidan ce, an 18-gauge singlewall needle was advanced into the anterior left pneumoth orax, with free aspiration of air confirming appropriate positioning. A 0.0 3 5-in. wire was then advanced through the needle and coiled within the pleural space. The needle was removed over the wire and the tract was dilated. Then, a 10 [place]an locking loop drainage catheter was advanced over the wire, which wa s then removed. The catheter was secured to the skin with monofilament nylon s uture and a sterile dressing was applied. The catheter was connected to pleura l evacuation device and placed on on waterseal. Attention was then turned to the right pneumothorax. 1% lidocaine was infiltrated into the skin and sub cutaneous tissues for local anesthesia. Then, again under intermittent CT guid ance, an 18-gauge singlewall needle was advanced into the pneumothorax with fr ee aspiration of air confirming appropriate positioning. A 0.0 3 5-in. wire wa s then advanced through the needle and coiled within the pleural space. The ne edle was removed over the wire, the tract was dilated, and a 10 Zimbabwean locking loop drainage catheter was advanced over the wire, which was then removed. Th e catheter was secured to the skin with monofilament nylon suture and a steril e dressing was applied. The catheter was connected to a pleural evacuation dev ice and placed on waterseal. Final CT image shows marked improvement in the right and left pneumothoraces, with appropriately positioned pleural drainage catheters. FINDINGS: Moderate bilateral pneumothoraces. IMPR ESSION: Successful placement of bilateral anterior approach pleural drainage c atheters under CT guidance. The catheters should remain to -20 cm water w all suction overnight. Further management at the discretion of the referring p ramonacinettie Crow. Signed by: Dr. Sammie Arnett M.D. on 04/08/2020 4:5 6 PM Dictated By: SAMMIE ARNETT MD 55 Transcribed By: JOANN on 04/08/201655 COPY TO: RICARDO LEMA MD PLEURAL DRAINAGE W/ [id number] 16:48:00 [place] [address] Patient Name: SUKHDEEP TINOCO MR #: [id number] : 1985 Age/Sex: 35/M Req #: [id number] Adm Physician: ANANYA KUMAR MD Ordered by: HUGH CROW MD Report #: [id number] Location: ICU R oom/Bed: ICU 191-1 Procedure: [id number] IR/PLEURA L DRAINAGE W/ IMAGING Exam Date: Exam Time: REPORT STATUS: Signed Date and Time: Procedure: Bilateral pleural drainage catheter placement Prim zackary forder operator: Dr. Arnett Pre-operative diagnosis: Bilateral pneumothorace s Post-operative diagnosis: Bilateral pneumothoraces Conscious Sedation: Propofol and fentanyl infusions per ICU team. The patient's heart rate and pul se oximetry were continuously monitored by the accompanying ICU nurse. Blood pressure was monitored at 5 minute intervals. Additional Medications: Lidoc jennifer 1% for local anesthesia Contrast used: None Estimated blood loss: Mi nimal Specimens: None Implants: 10 Zimbabwean locking loop drainage catheters x2 Condition at completion: Critical Disposition: Returned to ICU Complicati ons: No immediate DISCUSSION: Informed consent was obtained and docume nted in the medical record after discussion of risks and benefits. The patient was placed in the supine position on the CT couch and marker grids were place d on the right and left anterior chest wall. Limited CT was performed, confirm ing moderate bilateral pneumothoraces. Suitable percutaneous approaches to the left and right pneumothoraces were identified and the overlying skin marked. The right and left anterior chest wall was then prepped and draped in the keerthi witt sterile fashion. Attention was first turned to the left pneumothorax . 1% lidocaine was infiltrated into the skin and subcutaneous tissues of the l eft anterior chest wall for local anesthesia. Then under intermittent CT sheri nce, an 18-gauge singlewall needle was advanced into the anterior left pneumot horax, with free aspiration of air confirming appropriate positioning. A 0.0 3 5-in. wire was then advanced through the needle and coiled within the pleural space. The needle was removed over the wire and the tract was dilated. Then, a 10 Zimbabwean locking loop drainage catheter was advanced over the wire, which w as then removed. The catheter was secured to the skin with monofilament nylon suture and a sterile dressing was applied. The catheter was connected to pleur al evacuation device and placed on on waterseal. Attention was then turne d to the right pneumothorax. 1% lidocaine was infiltrated into the skin and pierre bcutaneous tissues for local anesthesia. Then, again under intermittent CT zuleyma dance, an 18-gauge singlewall needle was advanced into the pneumothorax with f ree aspiration of air confirming appropriate positioning. A 0.0 3 5-in. wire w as then advanced through the needle and coiled within the pleural space. The n eedle was removed over the wire, the tract was dilated, and a 10 [place]an lockin g loop drainage catheter was advanced over the wire, which was then removed. T he catheter was secured to the skin with monofilament nylon suture and a steri le dressing was applied. The catheter was connected to a pleural evacuation de vice and placed on waterseal. Final CT image shows marked improvement in th e right and left pneumothoraces, with appropriately positioned pleural drainag e catheters. FINDINGS: Moderate bilateral pneumothoraces. IMP RESSION: Successful placement of bilateral anterior approach pleural drainage catheters under CT guidance. The catheters should remain to -20 cm water wall suction overnight. Further management at the discretion of the referring physician Dr. Crow. Signed by: Dr. Sammie Arnett M.D. on 04/08/2020 4: 56 PM Dictated By: SAMMIE ARNETT MD 55 Transcribed By: JOANN on 04/08/201655 COPY TO: HUGH CROW MD CT CHEST [id number] 16:30:00 [place] [address] Patient Name: SUKHDEEP TINOCO MR #: [id number] : 1985 Age/Sex: 35/M Req #: [id number] Adm Physician: ANANYA KUMAR MD Ordered by: HUGH CROW MD Report #: [id number] Location: ICU Room/Bed: ICU [facility] Procedure: [id number] CT/CT PEYMAN MARLEY Exam Date: 04/07/20 Exam Time: 1456 REPORT STATUS: Signed EXAM: CT Chest WITHO UT intravenous contrast 04/07/2020 2:56 PM INDICATION: Loculated pneumothorax. COMPARISON: Chest CT 04/05/2020 TECHNIQUE: Chest was scanned utilizing a m [employer] helical scanner from the lung apex through the level of the adren al glands without administration of IV contrast. Coronal and sagittal reformat ions were obtained. Routine protocol was performed. IV CONTRAST: None R ADIATION DOSE: Total DLP: 672 mGy*cm. Dose modulation, iterative reconstructio n, and/or weight based adjustment of the mA/kV was utilized to reduce the radi ation dose to as low as reasonably achievable. COMPLICATIONS: None FINDI NGS: LINES/ TUBES: Tracheostomy tube terminates in the midthoracic trachea. Left PICC line terminates at the superior cavoatrial junction. 2 pigtail pleu ral drainage catheters on the right. Single anterior pigtail pleural drainage catheter on the left and lateral larger surgical chest tube. LUNGS AND AI RWAYS: Unchanged appearance of extensive bilateral multifocal airspace consol idations and groundglass opacities. PLEURA: Small right hydropneumotho rax. Tiny posterior left hydropneumothorax. Both are decreased compared to the chest CT of 04/05/2020. HEART AND MEDIASTINUM: Partially visualized thyroid gland appears unremarkable. Scattered prominent cervical and supraclavicular lymph nodes. No axillary lymphadenopathy. Extensive mediastinal lymphadenopath y, for example a right pretracheal lymph node which measures 3.4 x 1.8 cm. Ass essment for hilar lymphadenopathy is suboptimal in the absence of intravenous contrast. The heart is not enlarged. No pericardial effusion. UPPER ABDO MEN: No acute findings. BONES: No acute osseous injury. SOFT TISSUES: Small amount of right pectoral subcutaneous emphysema. IMPRESSION: Inter sariah decrease in size of right and left hydropneumothoraces. 2 right and 2 left chest tubes in place as above. Unchanged extensive bilateral multifocal co nsolidative and groundglass airspace opacities. Signed by: Humberto Cisse MD on 04/07/2020 4:38 PM Dictated By: HUMBERTO CISSE MD 37 Transcribed By: JOANN on 04/07/201637 COPY TO: HUGH CROW MD CT BRAIN [id number] 15:47:00 [place] [address] Patient Name: SUKHDEEP TINOCO MR #: [id number] : 1985 Age/Sex: 35/M Req #: [id number] Adm Physician: ANANYA KUMAR MD Ordered by: BHARTI BAXTER MD Report #: [id number] Location: ICU Room/Bed: ICU [facility] Procedure: [id number] CT/CT [facility] Exam Date: 04/07/20 Exam Time: 1456 REPORT STATUS: Signed History: Hypoxemia , possible stroke Comparison studies: None Technique: Axial images wer e obtained from the skull base to the vertex. Coronal and sagittal reconstru ctions obtained from the axial data. Dose modulation, iterative reconstruction , and/or weight based adjustment of the mA/kV was utilized to reduce the radia tion dose to as low as reasonably achievable. Findings: The motion a rtifact with the majority limits the evaluation. Scalp/skull: No abnorma lities. No fractures, blastic or lytic lesions. Extra-axial spaces: No m asses. No fluid collections. Brain sulci: Appropriate for age. Ventricle s: Normal in size and configuration. No hydrocephalus. Parenchyma: No ab normal densities. No masses, hemorrhage, acute or chronic cortical vascular i nsults. Sellar/suprasellar region: No abnormalities Craniocervical juncti on: Patent foramen magnum. No Chiari one malformation. Partial opacificati on of the bilateral posterior mastoid air cells, related to nonspecific inflam mation IMPRESSION: Limited study by motion artifact. No significant in tracranial abnormalities . Nonspecific inflammatory changes of the bilater al mastoid air cells. Signed by: DR Hailey Barrientos M.D. on 04/07/2020 3:50 PM Dictated By: HAILEY SCOTT MD 49 Transcribed By: JOANN on 04/07/201549 COPY TO: BHARTI BAXTER MD Serum or plasma prolactin measurement (mass/volume)2020-04-07 10:30:00* Test Item Value Reference Range Interpretation Comments Prolactin (test code = 2842-3) 28.5 4.0-15.2 Performed at: - [facility] [id number] Director: Thai Lao MD, Phone: [phone] [facility]ING[facility] (PORT[facility])2020-04-07 06:00:00 [place] [address] Patient Name: SUKHDEEP TINOCO MR #: [id number] : 1985 Age/Sex: 35/M Req #: [id number] Adm Physician: ANANYA KUMAR MD Ordered by: HUGH CROW MD Report #: [id number] Location: ICU Room/Bed: ICU [facility] Procedure: [id number] DX/CHEST SINGLE (PORTABLE) Exam Date: 04/07/20 Exam Time: 050 0 REPORT STATUS: Signed EXAMINAT ION: CHEST SINGLE (PORTABLE) INDICATION: resp failure CO MPARISON: FINDINGS: AP view TUBES and LINES: Unchanged tracheostom y tube, bilateral pigtail chest tubes, and right large bore chest tube. LUNGS: Unchanged pulmonary airspace disease, right greater than left. P LEURA: Unchanged tiny right basilar pneumothorax. The previously seen left ap ical pneumothorax is not discretely identified. HEART AND MEDIASTINUM: The cardiomediastinal silhouette is unchanged. BONES AND SOFT TISSUES: No acute osseous lesion. Soft tissues are unremarkable. UPPER ABDOMEN: No free air under the diaphragm. IMPRESSION: Unchanged pulmonary air space disease, right lung greater than left. Unchanged tiny right basilar p neumothorax. The previously seen left apical pneumothorax is not discretely id entified. Signed by: Thor Morrow MD on 04/07/2020 6:02 AM Dict ated By: THOR MORROW MD 1 COPY TO: HUGH CROW MD Blood poikilocytosis detection by light [id number] 04:15:00 * Test Item Value Reference Range Interpretation Comments Poikilocytosis (test code = 779-9) [facility]IGHT [facility] [id number] 04:15:00* Test Item Value Reference Range Interpretation Comments Microcytosis (test code = 741-9) MODERATE [facility]2020-04-06 06:45:00 [facility] [address] [place] [id number] Patient Name: SUKHDEEP TINOCO MR #: [id number] : 1985 Age/Sex: 35/M Req #: [id number] Adm Physician: ANANYA KUMAR MD Ordered by: HUGH CROW MD Report #: [id number] Location: ICU Room/Bed: [place] [address] Procedure: [id number] DX/CHEST SINGLE (PORTABLE) Exam Date: 04/06/20 Exam Time: 055 5 REPORT STATUS: Signed EXAMINAT ION: CHEST SINGLE (PORTABLE) INDICATION: Respiratory failure COMPARISON: 04/05/2020 FINDINGS: AP view TUBES and LINES: Interval placement of bilateral pigtail chest tubes, two on the right and on e on the left. Unchanged large bore left chest tube. Unchanged tracheostomy tu be. LUNGS: Interval increase in right lung pulmonary airspace disease. Unch anged appearance of the left lung. PLEURA: Tiny right pneumothorax at th e right lung base. Tiny left apical pneumothorax. No discrete pleural effusion . HEART AND MEDIASTINUM: The cardiomediastinal silhouette is unchanged. BONES AND SOFT TISSUES: No acute osseous lesion. Soft tissues are unr emarkable. UPPER ABDOMEN: No free air under the diaphragm. IMPRESS ION: 1. Interval placement of bilateral pigtail chest tubes with near comp lete resolution of the previously seen bilateral pneumothoraces. 2. Inter sariah increase in right lung airspace disease, possibly a combination of pneumon ia or reexpansion pulmonary edema. Signed by: Thor Morrow MD on 04/06 6:48 AM Dictated By: THOR MORROW MD Transcribed By: JOANN on 04/06/2048 COPY TO: HUGH CROW MD CT CHEST [id number] 17:48:00 [place] [address] Patient Name: SUKHDEEP TINOCO MR #: [id number] : 1985 Age/Sex: 35/M Req #: [id number] Adm Physician: ANANYA KUMAR MD Ordered by: HUGH CROW MD Report #: [id number] Location: ICU R oom/Bed: ICU 191-1 Procedure: [id number] CT/CT [facility] Exam Date: 04/05/20 Exam Time: 1720 REPORT STATUS: Signed EXAM: CT Chest WITHO UT contrast INDICATION: f/u PNEUMO [id number] COMPARISON : Chest CT dated 03/28/2020. Same day chest x-ray TECHNIQUE: Chest was scan aim utilizing a multidetector helical scanner from the lung apex through the l evel of the adrenal glands without administration of IV contrast. Absence of i ntravenous contrast decreases sensitivity for detection of lymphadenopathy and vascular pathology. Coronal and sagittal reformations were obtained. Routine protocol was performed. IV CONTRAST: None COMPLICATIONS: None RADIATION DOSE: Total DLP: 1442.24 mGy*cm Estimated effective d ose: (DLP x 0.014 x size factor) mSv CTDIvol has been reviewed. It is bel ow the limits set by the Radiation Protocol Committee (RPC). F INDINGS: Streak artifacts limit evaluation. LINES/ TUBES: Right upper lobe pleural pigtail catheter. Endotracheal tube with tip above latasha. Left P ICC with tip at right atrium. Left chest tube with tip in left upper lobe and mediastinal area. Percutaneous gastrostomy tube in place. LUNGS AND AIRWA YS: Again seen bilateral airspace opacities, right greater than left. Left lo wer lobe consolidation is not significantly changed. Airways are normal. PLEURA: Small bilateral pleural effusions. Bilateral multiloculated pneumotho rax, increased from prior CT dated 03/28/2020. Maximal air gap on the right now measures 8 cm and on the left 2.8 cm. HEART AND MEDIASTINUM: The thyroid gl and is normal. Mediastinal lymphadenopathy such as 2.2 cm right paratracheal lymph node. No axillary lymphadenopathy. The heart is normal in size.. There is no pericardial effusion. There are mild atherosclerotic calcifications in the aorta and coronary arteries. Resolved previously seen pneumomediastinum. Markedly decreased chest wall emphysema. UPPER ABDOMEN: Partially visual ized right renal midpole partially exophytic and calcified lesion. BONES: The visualized bony thorax is within normal limits. SOFT TISSUES: Unremark able. IMPRESSION: Again seen bilateral airspace opacities, right greater than left, representing multifocal pneumonia. Left lower lobe consolidation i s not significantly changed, representing combination of atelectasis, aspirati on, and/or pneumonia. Small bilateral pleural effusions. Bilateral m ultiloculated pneumothoraces, markedly increased from prior CT dated 03/28/2020. Resolved previously seen pneumomediastinum. Markedly decreased chest wall e mphysema. Findings discussed with ICU Nurse cecelia at 6:10pm, on 04/05/2020. Signed by: Dr. Nick Davis MD on 04/05/2020 6:07 PM Dictated B y: NICK DAVIS MD 06 Transcribed By: JOANN on 04/05/201806 COPY TO: HUGH CROW MD CT BRAIN [id number] 17:48:00 [place] [address] Patient Name: SUKHDEEP TINOCO MR #: [id number] : 1985 Age/Sex: 35/M Req #: [id number] Adm Physician: ANANYA KUMAR MD Ordered by: HUGH CROW MD Report #: [id number] Location: ICU Room/Bed: ICU [facility] Procedure: [id number] CT/CT BRA IN WO Exam Date: 04/05/20 Exam Time: 1720 REPORT STATUS: Signed History:Hypoxemia. Comparison studies: None Technique: Axial images were obtained from the skull base to the vertex. Coronal and sagittal images reconstructed from the axial data. Dose modulation, iterative reconstruction, and/or weight based adjustment of the mA/kV was utilized to reduce the radiation dose to as low as reasonably achievable. Intravenous contrast: None Findings: The study is limited by motion artifact. Scalp/skull: No abnormalities . Extra-axial spaces: No masses. No fluid collections. Brain sulci : Normal. Ventricles: Normal in caliber.. No hydrocephalus. Parenchyma: No masses, hemorrhage, acute or chronic cortical vascular insults. Sellar /suprasellar region: No abnormalities. Craniocervical junction: Patent foramen magnum. No Chiari one malformation. Incidental findings: There is scatt ered fluid within bilateral mastoid air cells, a nonspecific finding. The visi ble paranasal sinuses are clear. Impression: Motion degraded examinati on. Within these constraints, no gross acute intracranial abnormality. Pr eliminary report was given by Neuroradiology fellow Dr. Hilario at 5:53 PM on . I have reviewed the images and agree with findings in the preliminary report. Signed by: Dr. Charlene Gan M.D. on 04/05/2020 7:56 PM D ictated By: CHARLENE GAN MD 55 Transcribed By: JOANN on 04/05/201955 COPY TO: Terra CROW MD CHEST SINGLE (PORTABLE)2020-04-05 15:05:00 [place] [address] Patient Name: SUKHDEEP TINOCO MR #: [id number] : 1985 Age/Sex: 35/M Req #: [id number] Adm Physician: ANANYA KUMAR MD Ordered by: HUGH CROW MD Report #: [id number] Location: ICU R oom/Bed: ICU [facility] Procedure: [id number] DX/CHEST SINGLE (PORTABLE) Exam Date: 04/05/20 Exam Time: 141 0 REPORT STATUS: Signed EXAMINAT ION: CHEST SINGLE (PORTABLE) INDICATION: Respiratory failure COMP ARISON: Multiple prior chest radiographs, most recently 04/05/2020 FIND INGS: LINES/TUBES:Support lines and tubes unchanged. LUNGS:Bilateral a irspace opacities. Consolidation in the right upper lobe has worsened compared to the prior radiograph of earlier the same day. PLEURA:Trace right pleura l effusion. No pneumothorax. MEDIASTINUM:The cardiomediastinal silhouette a ppears unchanged in size and shape. BONES/SOFT TISSUES:No acute osseous i njury. ABDOMEN:No free air under the diaphragm. IMPRESSION: Inte rval worsening of right upper lobe consolidation. Unchanged opacities in the r emainder of the lungs. Support lines and tubes unchanged. Signed by: Yenny Cisse MD on 04/05/2020 3:07 PM Dictated By: HUMBERTO CISSE MD Electronic ally Signed By: HUMBERTO CISSE MD on 04/05/20 1501 Transcribed By: JOANN on 04/05 1507 COPY TO: HUGH CROW MD Fluoroscopic procedure less than one hour [id number] 12:10:00* Test Item Value Reference Range Interpretation Comments Coronavirus (PCR) (test code = Coronavirus (PCR)) NOT DETECTED NOTD ETECTED SARS-COV-2 (COVID19), HIGHRISK, RT-PCRNegative results do not preclude SARS-CoV- 2 infection and should not be used as the sole basis for patient management deci sions. Negative results must be combined with clinical observations, patient his tory, and epidemiological information. Optimum specimen types and timing for pea k viral levels during infections caused by SARS-CoV-2 have not been determined. Collection of multiple specimens ot types of specimens may be necessary to detec t virus. Improper specimen collection and handling, sequence variability under p rimers/probes, or organism present below the limit of detection may lead to fals e negative results. Positive and negative predictive values of testing are highl y dependent on prevalance. False negative test results are more likely when prev alence is high.The expected result is negative (not detected).The SARS-CoV-2 myesha t is intended for the qualitative detection of nucleic acid from SARS-CoV-2 in n asopharyngeal and oropharyngeal swab samples from patients who meet COVID-19 cli nical and or epidemiological criteria. For lower respiratory tract specimens, th e assay is submitted for authoriztion by FDA under an Emergency Use Authorizatio n (EUA). Testing methodology is real time RT-PCR. If received as separate collec tion devices, nasopharygeal and oropharyngeal specimens are combined for analysi s. Additional specimens may be split to a separate accession for analysi and rep orting as this test includes a single unit of service.Test results must be corre lated with clinical presentation and evaluated in the context of other laborator y and epidemiologic data. Test performance can be affected because the epidemiol ogy and clinical spectrum of infection caused by SARS-CoV-2 is not fully known. For example, the optimum types of specimens to collect and when during the cours e of infection these specimens are most likely to contain detectable viral RNA m ay not be known.This test has not been Food and Drug Administration (FDA) cleare d or approved and has been authorized by FDA under an Emergency Use Authorizatio n (EUA). The test is only authorized for the duration of the declaration that ci rcumstances exist justifying the authorization of emergency use of in vitro diag nostic tests for detection and/or diagnosis of SARS-CoV-2 under section 564(b) o f the Act, 21 U.S.C. section 360bbb-3(b)(1), unless the authorization is termina yeyo or revoked sooner. [facility] are certified under the C linical Laboratory Improvement Amendments of 1988 (CLIA), 42 U.S.C. section 263a , to perform high complexity tests.Testing performed by [facility] [id number] [place], [place] [phone] Director: Nick Dominguez M.D.CLIA # [id number] [facility] SINGLE (PORTABLE)2020-04-05 10:30:00 [facility] [address] [place] [address] Patient Name: SUKHDEEP TINOCO MR #: [id number] : 1985 Age/Sex: 35/M Req #: [id number] Adm Physician: ANANYA KUMAR MD Ordered by: HUGH CROW MD Report #: [id number] Location: ICU Room/Bed: ICU [facility] Procedure: [id number] DX/CHEST SINGLE (PORTABLE) Exam Date: 04/05/20 Exam Time: 101 5 REPORT STATUS: Signed EXAMINAT ION: CHEST SINGLE (PORTABLE) INDICATION: Pneumonia COMPARISON: Mu ltiple prior chest radiograph, most recently 04/04/2020 FINDINGS: LINES/TUBES:Tracheostomy tube terminates 3 cm above the latasha. Left chest tube unchanged. Right chest tube has been removed. Left PICC line unchanged. EKG leads overlie the chest. LUNGS:The lungs are moderately inflated. Unchanged bilateral airspace opacities. PLEURA:No pleural effusion or pneumothorax . MEDIASTINUM:The cardiomediastinal silhouette appears normal in size and s hape. BONES/SOFT TISSUES:No acute osseous injury. ABDOMEN:No free air under the diaphragm. IMPRESSION: Unchanged bilateral airspace opaciti es. Interval removal of right chest tube. No pneumothorax. Signed by: Humberto Cisse MD on 04/05/2020 10:33 AM Dictated By: HUMBERTO CISSE MD Electron ically Signed By: HUMBERTO CISSE MD on 04/05/20 1033 Transcribed By: JOANN on 1033 COPY TO: HUGH CROW MD CHEST SINGLE (PORTABLE) 2020-04-05 09:04:00 [facility] [place] [address] Patient Name: SUKHDEEP TINOCO MR #: [id number] : 1985 Age/Sex: 35/M Req #: [id number] Adm Physician: ANANYA KUMAR MD Ordered by: HUGH CROW MD Report #: [id number] Location: ICU Room/Bed: ICU [facility] Procedure: [id number] DX/CHEST SINGLE (PORTABLE) Exam Date: 04/04/20 Exam Time: 133 0 REPORT STATUS: Signed EXAMINAT ION: CHEST SINGLE (PORTABLE) INDICATION: Respiratory failure COMP ARISON: Numerous prior chest radiographs, most recently of 04/03/2020 F INDINGS: LINES/TUBES:Bilateral chest tubes unchanged. Endotracheal tube ter minates approximately 1.5 cm above the latasha. Left PICC line unchanged. EKG l shaun overlie the chest. LUNGS:The lungs are moderately inflated. No signi ficant interval change in bilateral airspace opacities. PLEURA:Small righ t lateral pneumothorax. No pleural effusion. MEDIASTINUM:The cardiomediasti nal silhouette appears unchanged in size and shape. BONES/SOFT TISSUES:No acute osseous injury. ABDOMEN:No free air under the diaphragm. IMP RESSION: Unchanged bilateral lung opacities. Small right lateral pneumot horax. Right and left chest tubes in unchanged position. Signed by: Margret Cisse MD on 04/05/2020 9:06 AM Dictated By: HUMBERTO CISSE MD 5 Transcribed By: JOANN on 04/05/20905 COPY TO: HUGH CROW MD Blood [id number] 02:45:00* Test Item Value Reference Range Interpretation Comments Blood Culture (test code = 55672408) NO GROWTH AFTER 5 DAYS, [facility] 21:21:00 [facility] [address] [place] [address] Patient Name: SUKHDEEP TINOCO MR #: [id number] : 1985 Age/Sex: 35/M Req #: [id number] Adm Physician: ANANYA KUMAR MD Ordered by: HUGH CROW MD Report #: [id number] Location: ICU Room/Bed: ICU [facility] Procedure: [id number] DX/CHEST SINGLE (PORTABLE) Exam Date: 04/03/20 Exam Time: 210 5 REPORT STATUS: Signed EXAMINAT ION: CHEST SINGLE (PORTABLE) INDICATION: TACHYPNEA 20200324 Y COMPARISON: 04/03/2020 FINDINGS: AP view TUBES and LINES: Unchanged bilateral chest tubes. Unchanged tracheostomy tube. Unchanged right apical pigtail catheter. LUNGS: No significant change in right lung airspace opacities. Unchanged mild left basilar airspace disease. PLEURA: Probable small bilateral pleural effusions are unchanged. No distin ct pneumothorax. HEART AND MEDIASTINUM: The cardiomediastinal silhouette is unremarkable. BONES AND SOFT TISSUES: No acute osseous lesion. So ft tissues are unremarkable. UPPER ABDOMEN: No free air under the diaphra gm. IMPRESSION: Stable exam. Unchanged pulmonary airspace disease , right lung greater than left. Unchanged bilateral chest tubes. No visib le pneumothorax. Signed by: Thor Morrow MD on 04/03/2020 9:22 PM Dictated By: THOR MORROW MD 21 COPY TO: HUGH CROW MD CHEST SINGLE (PORTABLE)2020-04-03 17:17:00 [place] [address] Patient Name: SUKHDEEP TINOCO MR #: [id number] : 1985 Age/Sex: 35/M Req #: [id number] Adm Physician: ANANYA KUMAR MD Ordered by: HUGH CROW MD Report #: [id number] Location: ICU R oom/Bed: ICU [facility] Procedure: [id number] DX/CHEST SINGLE (PORTABLE) Exam Date: 04/03/20 Exam Time: 165 0 REPORT STATUS: Signed EXAMINAT ION: CHEST SINGLE (PORTABLE) INDICATION: clamped right chest tube [id number] COMPARISON: Same day at 6:15 AM FINDING S: AP view TUBES and LINES: Stable tracheostomy tube. Stable bilateral chest tubes and right pleural pigtail catheter. LUNGS: Limited by low l avila volumes and slight rotation. Diffuse right lung airspace opacities, sligh tly increased from prior exam, especially upper lobe. Not significantly change d left lower lung field opacities. PLEURA: No pneumothorax. Suspected sma ll bilateral pleural effusions. HEART AND MEDIASTINUM: The cardiomediastin al silhouette is unremarkable. BONES AND SOFT TISSUES: No acute osseou s lesion. Soft tissues are unremarkable. UPPER ABDOMEN: No free air unde r the diaphragm. IMPRESSION: Right lung airspace opacities, slightly increased from prior exam. Not significantly changed left lower lung field ai rspace opacities. Suspected small bilateral pleural effusions. No visible pneu mothorax. Signed by: Dr. Nick Davis MD on 04/03/2020 5:20 PM D ictated By: NICK DAVIS MD 19 COPY TO: HUGH CROW MD CHEST SINGLE (PORTABLE)2020-04-03 09:13:00 [place] [address] Patient Name: SUKHDEEP TINOCO MR #: [id number] : 1985 Age/Sex: 35/M Req #: [id number] Adm Physician: ANANYA KUMAR MD Ordered by: ANANYA KUMAR MD Report #: [id number] Location: ICU Room/Bed: ICU [facility] Procedure: [id number] DX/CHES T SINGLE (PORTABLE) Exam Date: 04/03/20 Exam Time: 0 620 REPORT STATUS: Signed EXAM: CHEST SINGLE (PORTABLE) DATE: 04/03/2020 6:20 AM INDICATION: Pneumon ia hypoxemia COMPARISON: 04/02/2020 FINDINGS: Tracheostomy cannula and bilateral chest tubes identified in stable position. There are grossly stable appearing multifocal airspace opacities present bilaterally. There is n o evidence for new large focal consolidation, pneumothorax, or significant ple ural effusion. The cardiomediastinal silhouette is stable in appearance. No ac [place] osseous abnormality is identified. IMPRESSION: No significant i nterval change from 04/02/2020. Stable appearing multifocal airspace opaciti es again noted bilaterally. Signed by: Dr. Colton Sandra MD on 04/03/2020 9: 15 AM Dictated By: COLTON SANDRA MD 4 Transcribed By: JOANN on 04/03/20914 COPY TO: ANANYA KUMAR MD CHEST SINGLE (PORTABLE)2020-04-02 08:33:00 [place] [address] Patient Name: SUKHDEEP TINOCO MR #: [id number] : 1985 Age/Sex: 35/M Req #: [id number] Adm Physician: ANANYA KUMAR MD Ordered by: HUGH CROW MD Report #: [id number] Location: ICU [facility]/Bed: ICU [facility] Procedure: [id number] DX/CHEST SINGLE (PORTABLE) Exam Date: 04/02/20 Exam Time: 064 5 REPORT STATUS: Signed Examinat ion: Single AP view of the chest. COMPARISON: April 01, 2020 INDICATION: Hypoxia DISCUSSION: Lines/tubes: Tracheostomy tube. Bilateral ch est tubes and right pigtail catheter. Lungs: Stable multifocal airspace opacities. Pleura: There is no pleural effusion or pneumothorax. Hear t and mediastinum: The heart and the mediastinum are unremarkable. Bones a nd soft tissues: No acute bony abnormalities. IMPRESSION: Stabl e bilateral airspace opacities. No pneumothorax. Signed by: Dr. Edelmira carrero M.D. on 04/02/2020 8:35 AM Dictated By: EDELMIRA ORELLANA MD Electron ically Signed By: EDELMIRA ORELLANA MD on 04/02/20834 Transcribed By: JOANN on 04/02/20834 COPY TO: HUGH CROW MD CHEST SINGLE (PORTABLE) 2020-04-01 07:19:00 [place] [address] Patient Name: SUKHDEEP TINOCO MR #: [id number] : 1985 Age/Sex: 35/M Req #: [id number] Adm Physician: ANANYA KUMAR MD Ordered by: HUGH CROW MD Report #: [id number] Location: ICU Room/Bed: ICU [facility] Procedure: [id number] DX/CHEST SINGLE (PORTABLE) Exam Date: 04/01/20 Exam Time: 053 5 REPORT STATUS: Signed EXAMINAT ION: CHEST SINGLE (PORTABLE) INDICATION: resp failure 2019 0509 0535 COMPARISON: 03/31/2020 FINDINGS: AP view TUB ES and LINES: Stable tracheostomy tube, bilateral chest tubes, and right pleu ral pigtail catheter LUNGS: Lungs are well inflated. Bilateral airspace o pacities, right greater than left. PLEURA: No visible pneumothorax. HEART AND MEDIASTINUM: The cardiomediastinal silhouette is unremarkable. BONES AND SOFT TISSUES: No acute osseous lesion. Soft tissues are unrema rkable. UPPER ABDOMEN: No free air under the diaphragm. IMPRESSION : No visible pneumothorax. Redemonstration of bilateral airspace opacities, right greater than left, representing asymmetric edema and/or pneumonia. Pierre spected small bilateral pleural effusions. Signed by: Dr. Nick Davis MD on 04/01/2020 7:21 AM Dictated By: NICK DAVIS MD Electronically Sig ami By: NICK DAVIS MD on 04/01/20 0721 Transcribed By: JOANN on 04/01/20 0 721 COPY TO: HUGH CROW MD Serum or plasma ferritin measurement (mass/volume)2020-04-01 05:30:00* Test Item Value Reference Range Interpretation Comments Ferritin (test code = 2276-4) 1356.48 21.81-274.66 [id number] 14:51:00 [place] [id number] [place] [address] Patient Name: SUKHDEEP TINOCO MR #: [id number] : 1985 Age/Sex: 35/M Req #: [id number] Adm Physician: ANANYA KUMAR MD Ordered by: HUGH CROW MD Report #: [id number] Location: ICU [facility]/Bed: [place] [address] Procedure: [id number] DX/IR CON SULT Exam Date: Exam Time: REPORT STATUS: Signed Request for anterior right chest tube placement by the ICU Dr. Godfrey discussed with Dr. Stewart regarding t he difficulty in moving this Covid positive ICU patient on multiple life suppo rt tubes and lines 2 radiology and also the technique of doing a bedside chest tube for pneumothorax using landmarks. Dr. Stewart was able to perform a chest tube placement successfully. This request was then canceled. Signed b y: Shweta Godfrey MD on 03/31/2020 2:53 PM Dictated By: SHWETA GODFREY MD 52 Transcribed By: JOANN on 03/31/201452 COPY TO: HUGH CROW MD CHEST SINGLE (PORTABLE)2020-03-31 14:19:00 [place] [address] Patient Name: SUKHDEEP TINOCO MR #: [id number] : 1985 Age/Sex: 35/M Req #: [id number] Adm Physician: ANANYA KUMAR MD Ordered by: HUGH CROW MD Report #: [id number] Location: ICU Room/Bed: ICU 191-1 Procedure: [id number] DX/CHEST SINGLE (PORTABLE) Exam Date: 03/31/20 Exam Time: 140 9 REPORT STATUS: Signed AP celia ble chest x-ray Comparison: 03/31/2020 at 9:23 AM History: Status post r ight apical chest tube placement Findings: There is a right small bore ches t tube placement in addition to the existing right and left large bore chest t ubes. The tube has been inserted via second intercostal space anteriorly and t ravels up to the apical pleura. The previously seen pneumothorax on the right side has resolved. There is persistent small pneumothorax on the left side. Th e right lung has reexpanded but overall shows no change in the diffuse interst itial and airspace disease pattern. Impression: New right anterior apical chest tube with resolution of right pneumothorax. The findings were discussed with Dr. Stewart. Signed by: Shweta Godfrey MD on 03/31/2020 2:25 PM D ictated By: SHWETA GODFREY MD 1425 Transcribed By: JOANN on 03/31/20 1425 COPY TO: Terra CROW MD CHEST SINGLE (PORTABLE)2020-03-31 10:06:00 [place] [address] Patient Name: SUKHDEEP TINOCO MR #: [id number] : 1985 Age/Sex: 35/M Req #: [id number] Adm Physician: ANANYA KUMAR MD Ordered by: HUGH CROW MD Report #: [id number] Location: ICU R oom/Bed: ICU 191-1 Procedure: [id number] DX/CHEST SINGLE (PORTABLE) Exam Date: 03/31/20 Exam Time: 093 8 REPORT STATUS: Signed X-ray ch est AP portable Comparison: 03/30/2020 History: Acute respiratory failur e Findings: The tracheostomy tube is seen with the tip at thoracic inlet. N o change in bilateral chest tubes. No change in the left arm PICC line with th e tip overlying SVC. Heart size normal. Possible layering pleural ef fusion. Large right pneumothorax. Smaller left pneumothorax. No signif icant change in the overall appearance of the pulmonary findings which consist ed of heterogeneous interstitial and airspace type opacities in the bilateral multisegmental fashion. Presence of air along the course of the left chest tube in the lateral chest wall. Impression: The pleural effusion on the r ight side has decreased. Worsening right pneumothorax. I called the repor t to the ICU nurse. Signed by: Shweta Godfrey MD on 03/31/2020 10:12 AM Dictated By: SHWETA GODFREY MD 1012 Transcribed By: JOANN on 03/31/20 1012 COPY TO: HUGH LANGFORD MD CHEST SINGLE (PORTABLE)2020-03-30 19:07:00 [place] [address] Patient Name: SUKHDEEP TINOCO MR #: [id number] : 1985 Age/Sex: 35/M Req #: [id number] Adm Physician: ANANYA KUMAR MD Ordered by: HUGH CROW MD Report #: [id number] Location: ICU R oom/Bed: ICU 191-1 Procedure: [id number] DX/CHEST SINGLE (PORTABLE) Exam Date: 03/30/20 Exam Time: 185 3 REPORT STATUS: Signed EXAMINAT ION: CHEST SINGLE (PORTABLE) COMPARISON: Chest x-ray 03/29/2020 IND ICATION: TRACH REVISION/ RESP FAILURE 20200330 DISCUSSIO N: Frontal view of the chest obtained at 1859 hours. HEART AND MEDIASTINU M: The cardiomediastinal silhouette is unremarkable. LINES: Tracheostom y is midline in position. Left chest tube terminates over the left hilum and i s stable in position. Right chest tube is horizontal in orientation and termin ates at the right hilum and is stable in position. Left PICC line terminates i n the SVC. LUNGS/PLEURA: Multifocal infiltrates are redemonstrated, right lung more severe than the left, without significant change. No large effusions . There is a skinfold or pneumothorax in the inferolateral aspect of the left chest. No evidence of right pneumothorax. BONES AND SOFT TISSUES: No foc al osseous lesion. The soft tissues are normal. IMPRESSION: 1. No mendieta e in multifocal infiltrates. 2. Stable medical devices. 3. Skinfold v ersus pneumothorax in the inferior left chest. Attention should be paid on sub sequent studies. No evidence of right pneumothorax. Signed by: Dr. Abdias Munoz MD on 03/30/2020 7:13 PM Dictated By: KHADAR MUNOZ MD Jeni ctronically Signed By: KHADAR MUNOZ MD on 03/30/201912 Transcribed By: JESSICA JEROME on 03/30/201912 COPY TO: HUGH CROW MD CHEST SINGLE (PORTABLE)2020-03-29 09:01:00 [place] [address] Patient Name: SUKHDEEP TINOCO MR #: [id number] : 1985 Age/Sex: 35/M Req #: [id number] Adm Physician: ANANYA KUMAR MD Ordered by: HUGH CROW MD Report #: [id number] Location: ICU Room/Bed: ICU [facility] Procedure: [id number] DX/CHEST SINGLE (PORTABLE) Exam Date: 03/29/20 Exam Time: 044 5 REPORT STATUS: Signed Examinat ion: Single AP view of the chest. COMPARISON: 03/28/2020 INDICATION: Int ubation DISCUSSION: See impression IMPRESSION: 1 . Endotracheal tube, left upper extremity PICC, and bilateral chest tubes ar e unchanged in position. No pneumothorax 2. Unchanged patchy consolidati ons, right worse than left. 3. Stable cardiomediastinal contour. No acute o sseous abnormality. Healed fracture deformity right clavicular mid shaft. 4. Resolving subcutaneous emphysema. Signed by: Dr. Sammie Arnett M.D. on 03/29/2020 9:04 AM Dictated By: SAMMIE ARNETT MD 3 Transcribed By: JOANN on 03/29/20903 COPY TO: HUGH CROW MD Serum or plasma magnesium measurement (mass/volume)2020-03-29 04:40:00* Test Item Value Reference Range Interpretation Comments Magnesium Level (test code = 39349-9) 1.9 1.3-2.1 [facility] SINGLE (PORTABLE)2020-03-28 09:20:00 [place] [address] Patient Name: SUKHDEEP TINOCO MR #: [id number] : 1985 Age/Sex: 35/M Req #: [id number] Adm Physician: ANANYA KUMAR MD Ordered by: ANANYA KUAMR MD Report #: [id number] Location: ICU Room/Bed: ICU [facility] Procedure: [id number] DX/CHES T SINGLE (PORTABLE) Exam Date: 03/28/20 Exam Time: 0 500 REPORT STATUS: Signed EXAM: CHEST SINGLE (PORTABLE) DATE: 03/28/2020 5:00 AM 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 Left IJ PICC line identified in stable position. Left-sided chest tube noted in place. There is no significant residual pneumothorax present. There are unchanged ri ght greater than left-sided airspace opacities. There is no evidence for new l arge focal consolidation or significant pleural effusion. The cardiomediast inal silhouette is stable in appearance. No acute osseous abnormality is ident ified. Signed by: Dr. Colton Sandra MD on 03/28/2020 9:22 AM Dictat ed By: COLTON SANDRA MD 15 Transcribed By: JOANN on 03/28/20921 COPY TO: ANANYA KUMAR MD CT SACRUM COCCYX [id number] 07:29:00 [place] [address] Patient Name: SUKHDEEP TINOCO MR #: [id number] : 1985 Age/Sex: 35/M Req #: [id number] Adm Physician: ANANYA KUMAR MD Ordered by: HUGH CROW MD Report #: [id number] Location: ICU Room/Bed: ICU [facility] Procedure: [id number] CT/CT SAC RUM COCCYX WO Exam Date: 03/28/20 Exam Time: 0040 REPORT STATUS: Signed EXAM: CT P génesis without contrast INDICATION: Sacral decubitus wound, rule out OSTEOMY ELITIS COMPARISON: None. TECHNIQUE: Pelvis were scanned utilizing a multi detector helical scanner from the iliac crest to the pubic symphysis without a dministration of IV contrast. Coronal and sagittal reformations were obtained. Routine protocol was performed. IV CONTRAST: None ORAL CONTRAS T: None COMPLICATIONS: None FINDINGS: LINES and TUBES : Urinary bladder Servin catheter tip within the bladder lumen. GI TRACT: No abnormal distention, wall thickening, or evidence of bowel obstruction. Appendix is normal. PELVIC ORGANS/BLADDER: Urinary bladder under distended with Servin catheter in place. Trace air in the bladder lumen. LYMPH NODE S: No lymphadenopathy. VESSELS: Vascular calcifications. PERITONEUM / RETROPERITONEUM: Mild volume pneumoperitoneum. No free fluid.. BONES/SOFT T ISSUES: Superficial ulceration and inflammation in the dermis and subcutaneous tissues dorsal superficial to the lower sacrum without underlying osseous abn ormality. Extensive subcutaneous emphysema in the lower anterior abdomen and p génesis, with marked scrotal subcutaneous emphysema. Bilateral L5 inferior pars defects. IMPRESSION: 1. Superficial ulceration and infla mmation in the dermis and subcutaneous tissues dorsal superficial to the lower sacrum without underlying osseous abnormality. 2. Extensive subcutaneo us emphysema in the lower anterior abdomen and pelvis, with marked scrotal sub cutaneous emphysema. Mild anasarca. The penis is buried within the lower anter ior pelvic subcutaneous tissues. 3. Mild volume pneumoperitoneum. Sig ami by: Mahesh Ocampo DO on 03/28/2020 7:34 AM Dictated By: MAHESH TATUM DO 3 Transcri bed By: JOANN on 03/28/20733 COPY TO: HUGH CROW MD Serum or plasma creatine kinase measurement (enzymatic activity/volume)2020-03-28 04:40:00* Test Item Value Reference Range Interpretation Comments Creatine Kinase (test code = 2157-6) 36 30-200 [facility] creatine kinase MB measurement (mass/volume)2020-03-28 04:40:00* Test Item Value Reference Range Interpretation Comments Creatine Kinase MB (test code = 40203-0) 3.30 0-5.0 [facility] by highly sensitive enzyme [id number] 04:40:00* Test Item Value Reference Range Interpretation Comments Troponin I (test code = 51162-9) 0.042 0-0.300 [facility] platelet ab.heparin induced fsertdrzh7503-37-56 04:40:00* Test Item Value Reference Range Interpretation Comments Heparin-Induced Platelet Antibody (test code = 09063-2) 0.107 0.000-0.400 Performed at: [facility] [id number] [employer] Claims Adjuster: Lynn Mccullough MD, Phone: [phone] [facility]villeCT CHEST [id number] 01:51:00 [place] [address] Patient Name: SUKHDEEP TINOCO MR #: [id number] : 1985 Age/Sex: 35/M Req #: [id number] Adm Physician: ANANYA KUMAR MD Ordered by: ANANYA KUMAR MD Report #: [id number] Location: ICU Room/Bed: ICU [facility] Procedure: [id number] CT/CT C HEST WO Exam Date: 03/28/20 Exam Time: 0040 REPORT STATUS: Signed EXAM: CT Chest WIT HOUT contrast INDICATION: POSSIBLE LEFT PNEUMOTHORAX COMPARISON: Chest x-ray 03/27/2020 TECHNIQUE: Chest was scanned utilizing a multidetector helical scanner from the lung apex through the level of the adrenal glands without adm inistration of IV contrast. Absence of intravenous contrast decreases sensitiv ity for detection of lymphadenopathy and vascular pathology. Coronal and sagit rona reformations were obtained. Routine protocol was performed. IV CONT RAST: None COMPLICATIONS: None RADIATION DOSE: Total DLP: 1 747 mGy*cm Estimated effective dose: (DLP x 0.014 x size factor) mSv CTDIvol has been reviewed. It is below the limits set by the Radiation Prot ocol Committee (RPC). Dose modulation, iterative reconstruction, and/or w eight based adjustment of the mA/kV was utilized to reduce the radiation dose to as low as reasonably achievable. FINDINGS: LINES/ TUB ES: ET tube tip 4 cm above latasha. Left upper extremity central venous cathete r, tip in the superior cavoatrial junction. A percutaneous right chest tube wi th tip and sidehole port the right pleural space .. LUNGS AND AIRWAYS: A 2 cm subpleural cavitation in the lateral aspect of the right upper lobe with pierre rrounding consolidation. Coarse reticular opacities, scattered consolidations and diffuse groundglass opacification of the right lung. Trace debris in the trachea and mainstem bronchi is likely secretions. Linear branching hyperdensi ties in the basilar left lower lobe into a lesser extent in the basilar right lower lobe. Bilateral lower lobe consolidations. Low left lower lobe volume. S cattered ground glass opacities in the left lung. PLEURA: Moderate left hyd ropneumothorax. Small residual right hydropneumothorax. HEART AND MEDIAST INUM: The thyroid gland is normal. No mediastinal, hilar or axillary lymphade nopathy. The heart is normal in size. There is no pericardial effusion. Smal l amount of pneumomediastinum. UPPER ABDOMEN: Small volume pneumoperitoneum within the upper abdomen. BONES: Motion artifact limits evaluation for rib fracture. No obvious displaced rib fractures. Healed right midclavicular frac ture. SOFT TISSUES: Extensive subcutaneous emphysema in the bilateral chest and neck. IMPRESSION: Moderate left hydropneumothorax. Findings of le ft pneumothorax was communicated with ICU nurse Ben at 10:33 PM on [address] Ocampo via telephone. Small residual right pneumothorax. Small ri ght pleural effusion. Small volume pneumoperitoneum in the upper abdomen. A 2 cm subpleural cavitating consolidation in the lateral aspect of the righ t upper lobe. Given extensive subcutaneous emphysema which tracks down to the upper thighs, a bronchopleural fistula is possible. Extensive airspace di sease in the right lung and to a lesser extent in the left lung. Bilatera l lower lobe consolidations concerning for aspiration pneumonia. Branching hyp erdensities in the lower lobes can be due to aspiration of hyperdense material or blood products. Pneumomediastinum. Findings of pneumothorax and pn eumoperitoneum discussed with ICU nurse Ben at 2:15 AM on 03/28/[address] Ocampo via telephone. Signed by: Mahesh Ocampo DO on 03/28/2020 2 :24 AM Dictated By: MAHESH OCAMPO DO 3 Transcribed By: JOANN on 03/28/20223 C OPY TO: ANANYA KUMAR MD CT BRAIN [id number] 01:14:00 [place] [address] Patient Name: SUKHDEEP TINOCO MR #: [id number] : 1985 Age/Sex: 35/M Req #: [id number] Adm Physician: ANANYA KUMAR MD Ordered by: ANANYA KUMAR MD Report #: [id number] Location: ICU Room/Bed: [place] [address] Procedure: [id number] CT/CT B JASMIN GRUBER Exam Date: 03/28/20 Exam Time: 39 REPORT STATUS: Signed History: AMS Comparison studies: None Technique: Axial images were obtained from t he skull base to the vertex. Coronal and sagittal reconstructions obtained f rom the axial data. Dose modulation, iterative reconstruction, and/or weight b ased adjustment of the mA/kV was utilized to reduce the radiation dose to as low as reasonably achievable. Intravenous contrast: None Findings: Scalp/skull: No abnormalities. No fractures, blastic or lytic lesions. Extra-axial spaces: No masses. No fluid collections. Brain sulci: A ppropriate for age. Ventricles: Normal in size and configuration. No hydroceph alus. Parenchyma: No abnormal densities. No masses, hemorrhage, acute or chronic cortical vascular insults. Sellar/suprasellar region: No abnorm alities Craniocervical junction: Patent foramen magnum. No Chiari one malform ation. Incidental findings: Subcutaneous emphysema in the partially visua lized right periorbital, temporal and upper cervical soft tissues. IMPRE SSION: 1. No intracranial abnormalities in spite of motion artifacts. 2. Incidental partially visualized venous emphysema Signed by: Dr. Papito Christensen M.D. on 03/28/2020 1:16 AM Dictated By: PAPITO CHRISTENSEN MD, MD 5 T ranscribed By: JOANN on 03/28/20115 COPY TO: NAANYA KUMAR MD Fibrin D-dimer DDU measurement in platelet poor plasma (mass/volume)2020-03-27 23:45:00* Test Item Value Reference Range Interpretation Comments D-Dimer Quantitative (PE/DVT) (test code = 21479-2) > 5000 0- 400 The Triage D-Dimer Test has not been evaluated for use as sole evidence for the presence or absence of PE or DVT. As with all in vitro diagnostic tests, the te st results should be interpreted by the physician in conjunction with clinical f indings and other test results.Test results are reported in D-dimer units.[facility] measurement in platelet poor plasma by coagulation assay (mass/volume)2020-03-27 23:45:00* Test Item Value Reference Range Interpretation Comments Fibrinogen (test code = 3255-7) 507 232-962 [facility]2020-03-27 22:21:00 [facility] [address] [place] [address] Patient Name: SUKHDEEP TINOCO MR #: [id number] : 1985 Age/Sex: 35/M Req #: [id number] Adm Physician: ANANYA KUMAR MD Ordered by: HUGH CROW MD Report #: [id number] Location: ICU Room/Bed: ICU [facility] Procedure: [id number] DX/CHEST SINGLE (PORTABLE) Exam Date: 03/27/20 Exam Time: 221 0 REPORT STATUS: Signed EXAMINAT ION: CHEST SINGLE (PORTABLE) INDICATION: Respiratory distress COMPARISON: Chest x-ray 03/27/2020 9:22 PM FINDINGS: TUBES a nd LINES: New right chest tube, tip in the central aspect of the right lung. ET tube tip 3.5 cm above latasha. Left upper extremity PICC tip terminates in t he superior cavoatrial junction. LUNGS: Persistent diffuse airspace d isease, right worse than left. No consolidations. PLEURA: Resolution of right pneumothorax. Small left pneumothorax. HEART AND MEDIASTINUM: The ca rdiomediastinal silhouette is within normal size limits. BONES AND SO FT TISSUES: Bones unchanged. Extensive subcutaneous emphysema in the chest and neck base. UPPER ABDOMEN: No free air under the diaphragm. IMPRE SSION: Small left pneumothorax. Persistent diffuse airspace disease. Stable lines and tubes as above. Findings discussed with ICU nurse And rews at 10:33 PM on 03/27/[address] Ocampo via telephone. Signed by: Nabor Ocampo DO on 03/27/2020 10:35 PM Dictated By: MAHESH OCAMPO DO El ectronically Signed By: MAHESH OCAMPO DO on 03/27/202234 Transcribed By: JESSICA JEROME on 03/27/202234 COPY TO: HUGH CROW MD Serum or plasma conjugated bilirubin measurement (mass/volume)2020-03-27 22:20:00* Test Item Value Reference Range Interpretation Comments Direct Bilirubin (test code = 88211-7) 0.2 0.0-0.5 [facility] SINGLE (PORTABLE)2020-03-27 21:46:00 [place] [address] Patient Name: SUKHDEEP TINOCO MR #: [id number] : 1985 Age/Sex: 35/M Req #: [id number] Adm Physician: ANANYA KUMAR MD Ordered by: HUGH CROW MD Report #: [id number] Location: ICU Room/Bed: ICU [facility] Procedure: [id number] DX/CHEST SINGLE (PORTABLE) Exam Date: 03/27/20 Exam Time: 212 2 REPORT STATUS: Signed EXAMINAT ION: CHEST SINGLE (PORTABLE) INDICATION: Right chest tube placement, v erify position. COMPARISON: Chest x-ray 03/27/2020 6:54 PM FINDI NGS: TUBES and LINES: New right chest tube, tip in the central aspect of the right lung. ET tube tip 3.5 cm above latasha. Left upper extremity PICC tip terminates in the superior cavoatrial junction. LUNGS: Normal lung v olumes. Persistent diffuse airspace disease, right worse than left. PLEURA: Resolution of right pneumothorax. Limited evaluation of the left pleura due to overlying left chest pacing pad. HEART AND MEDIASTINUM: The car diomediastinal silhouette is within normal size limits.. BONES AND SO FT TISSUES: Bones unchanged. Extensive subcutaneous emphysema in the chest and neck base. UPPER ABDOMEN: No free air under the diaphragm. IMPRE SSION: New right chest tube, tip in the central aspect of the right lung. Resolution of right pneumothorax. Limited evaluation of the left chest du e to overlying cardiac device pacing patent. Recommend repeat chest radiograph after removal of pad. Extensive airspace disease. Extensive subcutane ous emphysema in the included soft tissues. Lines and tubes as above. Signed by: Mahesh Ocampo DO on 03/27/2020 10:00 PM Dictated By: MAHESH OCAMPO DO 99 T ranscribed By: JOANN on 03/27/202199 COPY TO: HUGH CROW MD CHEST SINGLE (PORTABLE)2020-03-27 19:11:00 [place] [address] Patient Name: SUKHDEEP TINOCO MR #: [id number] : 1985 Age/Sex: 35/M Req #: [id number] Adm Physician: ANANYA KUMAR MD Ordered by: ERICH SOUZA DO Report #: [id number] Location: ICU Room/Bed: ICU [facility] Procedure: [id number] DX/CHEST SINGLE (PORTABLE) Exam Date: 03/27/20 Exam Time: 12 01 REPORT STATUS: Signed EXAMINA TION: CHEST SINGLE (PORTABLE) COMPARISON: Chest x-ray 0536 hours INDICATION: code blue [id number] DISCUSSION: Frontal view of the chest obtained at 1854 hours. The inferior chest was not imaged. HEART AND MEDIASTINUM: Visualized portion of the mediastinum is grossly harriet l. LINES: Endotracheal tube terminates at the clavicular heads approxima tely 5 cm above the latasha. Left PICC line terminates in the SVC and is stable . LUNGS/PLEURA: Right lateral pneumothorax measures 3.4 cm in transverse dimension. There are airspace opacities in the mid left chest extending to the base some of which appear linear. Atelectasis cannot be excluded. BONES A ND SOFT TISSUES: Diffuse subcutaneous emphysema throughout the chest and exte nding into the lower neck and face. No focal osseous lesions. IMPRESSION: 1. Endotracheal tube terminates at the clavicular heads approximately 5 cm above the latasha. 2. New right lateral pneumothorax. 3. Diffuse subcutaneo us emphysema. 4. Airspace opacities in the left lung similar which are linear, that may represent a combination of atelectasis and pneumonia. Findings of right pneumothorax given to DARRON Melo at the time of dictation. Confirmed. Signed by: Dr. Khadar Munoz MD on 03/27/2020 7:28 PM Dictated B y: KHADAR MUNOZ MD 27 COPY TO: ERICH SOUZA DO CHEST SINGLE (PORTABLE)2020-03-27 06:17:00 [place] [address] Patient Name: SUKHDEEP TINOCO MR #: [id number] : 1985 Age/Sex: 35/M Req #: [id number] Adm Physician: ANANYA KUMAR MD Ordered by: HUGH CROW MD Report #: [id number] Location: ICU Room/Bed: ICU [facility] Procedure: [id number] DX/CHEST SINGLE (PORTABLE) Exam Date: 03/27/20 Exam Time: 051 0 REPORT STATUS: Signed EXAMINAT ION: CHEST SINGLE (PORTABLE) INDICATION: resp failure 2019 503 509 COMPARISON: 03/26/2020 FINDINGS: AP view TUB ES and LINES: Unchanged tracheostomy tube. LUNGS: No significant interval change in bilateral patchy airspace disease, notably in the right upper lobe. PLEURA: Probable small pleural effusions are unchanged. HEART AND ME DIASTINUM: The cardiomediastinal silhouette is unremarkable. BONES AND SOFT TISSUES: No acute osseous lesion. Soft tissues are unremarkable. UPPER ABDOMEN: No free air under the diaphragm. IMPRESSION: Uncha nged diffuse bilateral pulmonary airspace disease suggestive of multifocal pne umonia and/or pulmonary edema. Signed by: Thor Morrow MD on 03/27/2020 6:22 AM Dictated By: THOR MORROW MD 1 Transcribed By: JOANN on 03/27/20621 [employer] Y TO: HUGH CROW MD CHEST SINGLE (PORTABLE)2020-03-26 06:06:00 [place] [address] Patient Name: SUKHDEEP TINOCO MR #: [id number] : 1985 Age/Sex: 35/M Req #: [id number] Adm Physician: ANANYA KUMAR MD Ordered by: ANANYA KUMAR MD Report #: [id number] Location: ICU Room/Bed: ICU [facility] Procedure: [id number] DX/CHES T SINGLE (PORTABLE) Exam Date: 03/26/20 Exam Time: 0 500 REPORT STATUS: Signed EXAMIN ATION: CHEST SINGLE (PORTABLE) INDICATION: Mechanical Vent [id number] Y COMPARISON: 03/25/2020 FINDINGS: AP view TUBES and LINES: Unchanged tracheostomy tube. Unchanged left upper extre mity PICC. LUNGS: Low lung volumes. Mild interval increase in bilateral p ulmonary airspace disease. PLEURA: Unchanged small pleural effusions, r ight greater than left. HEART AND MEDIASTINUM: Stable cardiac silhouette. U nchanged pulmonary vascular fullness. BONES AND SOFT TISSUES: No acute o sseous lesion. Soft tissues are unremarkable. UPPER ABDOMEN: No free air under the diaphragm. IMPRESSION: Mild increase in diffuse pulmon zackary airspace disease most suggestive of edema. Multifocal pneumonia may appear similar. Signed by: Thor Morrow MD on 03/26/2020 6:08 AM Dicta yeyo By: THOR MORROW MD 0608 COPY TO: ANANYA KUMAR MD Serum or plasma trough vancomycin level at trough (mass/volume) 2020-03-25 15:25:00* Test Item Value Reference Range Interpretation Comments Vancomycin Level Trough (test code = 4092-3) 19.5 5.0-10.0 Results repeated and called to RADHA Deluca at 1552 on 03/25/20 by Kayley Adams . Read back and verified.[facility] SINGLE (PORTABLE)2020-03-25 09:43:00 [facility] [address] [place] [address] Patient Name: SUKHDEEP TINOCO MR #: [id number] : 1985 Age/Sex: 35/M Req #: [id number] Adm Physician: ANANYA KUMAR MD Ordered by: HUGH CROW MD Report #: [id number] Location: ICU Room/Bed: ICU 191-1 Procedure: [id number] DX/CHEST SINGLE (PORTABLE) Exam Date: 03/25/20 Exam Time: 085 5 REPORT STATUS: Signed Examinat ion: Single AP view of the chest. COMPARISON: AP chest 03/23/2020 INDIC ATION: Follow-up respiratory failure IMPRESSION: 1. Lines and Tu bes: Interval removal of previously visualized endotracheal and enteric tubes. Tracheostomy tube in place. Unchanged left-sided PICC line. 2. Lungs are hyp oinflated. Interval improvement in right upper and lateral lower lobe airspace opacities. No interval change in left lower lobe patchy airspace and dense re trocardiac opacities, which may reflect multifocal pneumonia and/or edema. Unc hanged bilateral pleural effusions. 3. Cardiomediastinal silhouette is normal . Central pulmonary venous congestion and perihilar interstitial edema, which is slightly improved.. 4. No acute bony abnormalities. Signed by: Dr. Suzie Loera M.D. on 03/25/2020 9:46 AM Dictated By: DIMITRY LOERA MD 5 Transcribed By: JOANN on 03/25/20945 COPY TO: HUGH CROW MD CHEST (INCL MEDIASTINUM)2020-03-23 15:00:00 [place] [address] Patient Name: SUKHDEEP TINOCO MR #: [id number] : 1985 Age/Sex: 35/M Req #: [id number] Adm Physician: ANANYA KUMAR MD Ordered by: HUGH CROW MD Report #: [id number] Location: ICU Room/Bed: ICU 191-1 Procedure: [id number] US/ [address] ST (INCL MEDIASTINUM) Exam Date: 03/23/20 Exam Time: 1415 REPORT STATUS: Signed Ultr asound chest History: Effusion Technique: Multiple views of the right and left chest with a curvilinear low frequency transducer using grayscale eda hnique. Findings: A pmyvc-wm-[id number] right pleural effusion with an dense. Pleural thickening on the left with no effusion. Impression: Septated ri ght pleural effusion, moderate in size. Signed by: Shweta Godfrey MD on 02/24 3:02 PM Dictated By: SHWETA GODFREY MD 1502 Transcribed By: JOANN on 03/23/20 1502 COPY TO: HUGH CROW MD CHEST SINGLE (PORTABLE)2020-03-23 10:44:00 [place] [address] Patient Name: SUKHDEEP TINOCO MR #: [id number] : 1985 Age/Sex: 35/M Req #: [id number] Adm Physician: ANANYA KUMAR MD Ordered by: HUGH CROW MD Report #: [id number] Location: ICU Room/Bed: ICU 191 Procedure: [id number] DX/CHEST SINGLE (PORTABLE) Exam Date: 03/23/20 Exam Time: 095 2 REPORT STATUS: Signed EXAMINAT ION: CHEST SINGLE (PORTABLE) INDICATION: Endotracheal tube placement. COMPARISON: Chest radiograph 03/23/2020. FINDINGS: LINES/TUBE S:Interval advancement of endotracheal tube, which terminates 4.3 cm above the latasha. Left PICC terminates in the SVC. Enteric tube courses into the stomac h, the tip is not seen. Overlying EKG leads. LUNGS:The lung volumes are low . Unchanged upper lung consolidation. Persistent patchy opacities in the bilat eral lower lungs, likely with some component of atelectasis. PLEURA:Uncha nged moderate right and small left pleural effusions. MEDIASTINUM:The cardi omediastinal silhouette appears unchanged in size and shape. BONES/SOFT T ISSUES:No acute osseous abnormality. Remote healed right clavicular fracture. ABDOMEN:No free air under the diaphragm. IMPRESSION: Interval adva ncement of endotracheal tube. No evidence of pneumothorax. Low lung volumes with bilateral pulmonary opacities consistent with known atypical pneumonia, possibly with superimposed pulmonary edema. Unchanged moderate right and s mall left pleural effusions. Signed by: Dr. Maribell Morejon MD on 03/23/2020 10: 48 AM Dictated By: MARIBELL MOREJON MD 1048 Transcribed By: JOANN on 03/23/20 1048 COPY TO: HUGH PAREDES MD CHEST SINGLE (PORTABLE)2020-03-23 10:04:00 [place] [address] Patient Name: SUKHDEEP TINOCO MR #: [id number] : 1985 Age/Sex: 35/M Req #: [id number] Adm Physician: ANANYA KUMAR MD Ordered by: HUGH CROW MD Report #: [id number] Location: ICU R oom/Bed: ICU [facility] Procedure: [id number] DX/CHEST SINGLE (PORTABLE) Exam Date: 03/23/20 Exam Time: 060 6 REPORT STATUS: Signed X-ray ch est AP portable Comparison: 03/20/2020 History: Intubated. ARDS. F indings: The endotracheal tube tip is seen above the thoracic inlet. It should be advanced approximately 4 cm. A nasogastric tube is seen coursing over the expected past. A left arm PICC line is unchanged. There is worsening of rig ht pleural effusion. There is no significant change in the left pleural effusi on. There is no pneumothorax. There is a marked in the opacity of the right upper lobe and right lower lobe. This is most suggestive of volume loss/atele ctasis. There is improved aeration of the right mid and lower lung zones, prob ably the right middle lobe. There is slightly improved aeration of the left lo wer lung zone. The left upper and midlung zones remain unchanged. Other c hronic findings include right clavicular healed fracture, degenerative changes . Impression: The endotracheal tube needs to be advanced as described above . There is redistribution of lung disease with possible increasing right pleur al effusion. Signed by: Shweta Godfrey MD on 03/23/2020 10:11 AM Di ctated By: SHWETA GODFREY MD 1011 COPY TO: LISBET CROW MD CHEST SINGLE (PORTABLE)2020-03-21 06:30:00 [place] [address] Patient Name: SUKHDEEP TINOCO MR #: [id number] : 1985 Age/Sex: 35/M Req #: [id number] Adm Physician: ANANYA KUMAR MD Ordered by: HUGH CROW MD Report #: [id number] Location: ICU R oom/Bed: ICU 191-1 Procedure: [id number] DX/CHEST SINGLE (PORTABLE) Exam Date: 03/21/20 Exam Time: 054 5 REPORT STATUS: Signed EXAMINAT ION: CHEST SINGLE (PORTABLE) INDICATION: resp failure 201948 COMPARISON: None IMPRESSION: Unchanged advanced di ffuse right lung airspace disease which may reflect severe pulmonary edema and /or pneumonia. Left lung airspace disease suggestive of edema is also unchange d. The visualized cardiac silhouette is stable. Probable small effusions ar e unchanged. Unchanged endotracheal tube. Unchanged left upper extremity PICC. Unchanged partially visualized nasogastric tube. Signed by: Lore Morrow MD on 03/21/2020 6:32 AM Dictated By: THOR MORROW MD Elect ronically Signed By: THOR MORROW MD on 03/21/20631 Transcribed By: JOANN on 03/21/20631 COPY TO: HUGH CROW MD CHEST XRAY LINE [id number] 17:57:00 [place] [address] Patient Name: SUKHDEEP TINOCO MR #: [id number] : 1985 Age/Sex: 35/M Req #: [id number] Adm Physician: ANANYA KUMAR MD Ordered by: HUGH CROW MD Report #: [id number] Location: ICU Room/Bed: ICU 191-1 Procedure: [id number] DX/CHEST XRAY LINE PLACEMENT Exam Date: 03/20/20 Exam Time: 1600 REPORT STATUS: Sign ed EXAMINATION: CHEST XRAY LINE PLACEMENT INDICATION: Check placeme nt of PICC COMPARISON: Multiple prior chest radiographs most recently of FINDINGS: LINES/TUBES:Endotracheal tube terminates 4.2 cm above the latasha. Left PICC line unchanged. Enteric tube unchanged. EKG leads overlie the chest. LUNGS:The lung volumes are low. Persistent bilateral ri ght greater than left airspace opacities. PLEURA:Unchanged right pleural effusion. No pneumothorax. MEDIASTINUM:The cardiomediastinal silhouette samra ears unchanged in size and shape. BONES/SOFT TISSUES:No acute osseous abn ormality. ABDOMEN:No free air under the diaphragm. IMPRESSION: No significant interval change. Signed by: Sotero Kenyon MD on 03/20/2020 6:0 4 PM Dictated By: SOTERO KENYON MD 03 Transcribed By: JOANN on 03/20/201803 C OPY TO: HUGH CROW MD CHEST SINGLE (PORTABLE)2020-03-19 06:21:00 [place] [address] Patient Name: SUKHDEEP TINOCO MR #: [id number] : 0 1985 Age/Sex: 35/M Req #: [id number] Adm Physician: ANANYA KUMAR MD Ordered by: HUGH CROW MD Report #: [id number] Location: ICU Room/Bed: ICU [facility] Procedure: [id number] DX/CHEST SINGLE (PORTABLE) Exam Date: 03/19/20 Ex am Time: 0550 REPORT STATUS: Signed EXAMINATION: CHEST SINGLE (PORTABLE) INDICATION: Respiratory failu re. COMPARISON: Multiple prior chest radiographs most recently of 03/17/2020 FINDINGS: LINES/TUBES:Endotracheal tube terminates 4.2 cm above the latasha. Left PICC line unchanged. Enteric tube unchanged. EKG leads overli e the chest. LUNGS:The lung volumes are low. Persistent bilateral right gre ater than left airspace opacities. PLEURA:Unchanged right pleural effusio n. No pneumothorax. MEDIASTINUM:The cardiomediastinal silhouette appears un changed in size and shape. BONES/SOFT TISSUES:No acute osseous abnormalit y. ABDOMEN:No free air under the diaphragm. IMPRESSION: Unchanged bilateral pulmonary opacities consistent with known atypical pneumonia. Persis tent right-sided pleural effusion. Lines and tubes as above. No evidence of pneumothorax. Signed by: Dr. Maribell Morejon MD on 03/19/2020 6:26 AM Di ctated By: MARIBELL MOREJON MD 19 Transcribed By: JOANN on 03/19/20625 COPY TO: HUGH CROW MD CHEST SINGLE (PORTABLE)2020-03-17 15:10:00 [place] [address] Patient Name: SUKHDEEP TINOCO MR #: [id number] : 1985 Age/Sex: 35/M Req #: [id number] Adm Physician: ANANYA KUMAR MD Ordered by: HUGH CROW MD Report #: [id number] Location: ICU Room/Bed: ICU [facility] Procedure: 37 DX/CHEST SINGLE (PORTABLE) Exam Date: 03/17/20 Ex am Time: 1440 REPORT STATUS: Signed EXAMINATION: CHEST SINGLE (PORTABLE) INDICATION: Hypoxia COMP ARISON: Multiple prior chest radiographs most recently of 03/17/2020 FI NDINGS: LINES/TUBES:Endotracheal tube terminates 4 cm above the latasha. Lef t PICC line unchanged. Enteric tube unchanged. EKG leads overlie the chest. LUNGS:The lung volumes are low. Slight interval worsening in bilateral right greater than left airspace opacities. PLEURA:Unchanged right pleural effu jairo. No pneumothorax. MEDIASTINUM:The cardiomediastinal silhouette appears unchanged in size and shape. BONES/SOFT TISSUES:No acute osseous injury. ABDOMEN:No free air under the diaphragm. IMPRESSION: Slight int erval worsening in bilateral right greater than left airspace opacities. Signed by: Humberto Cisse MD on 03/17/2020 3:11 PM Dictated By: HUMBERTO CISSE MD 151 Transcribed By: MARIA ANTONIA COLLINS on 03/17/20 1511 COPY TO: HUGH CROW MD CHEST SINGLE (PORTABLE)2020-03-17 06:43:00 [place] [address] Patient Name: SUKHDEEP TINOCO MR #: [id number] : 1985 Age/Sex: 35/M Req #: [id number] Adm Physician: ANANYA KUMAR MD Ordered by: HUGH CROW MD Report #: [id number] Location: ICU Room/Bed: ICU [facility] Procedure: 02 DX/CHEST SINGLE (PORTABLE) Exam Date: 03/17/20 Ex am Time: 0530 REPORT STATUS: Signed EXAMINATION: CHEST SINGLE (PORTABLE) INDICATION: Respiratory failu re. COMPARISON: Chest radiograph 03/16/2020. FINDINGS: LINES/TUBES : A left PICC line terminates in the superior vena cava. Interval removal of r ight PICC. Endotracheal tube terminates 4.3 cm above the latasha. Enteric tube projects below the diaphragm with tip not visualized. EKG leads overlie the ch est. LUNGS: Unchanged bilateral right greater than left interstitial and ai rspace opacities. PLEURA:Unchanged right pleural effusion. No pneumothora x. MEDIASTINUM:The cardiomediastinal silhouette appears unchanged. BÁRBARA SYDNEE/SOFT TISSUES:No acute osseous injury. ABDOMEN:No free air under the bob phragm. IMPRESSION: Lines and tubes as above. Interval removal of right PICC. Unchanged bilateral pulmonary opacities consistent with known atypic al pneumonia. Signed by: Dr. Maribell Morejon MD on 03/17/2020 6:48 AM D ictated By: MARIBELL MOREJON MD 0 648 Transcribed By: JOANN on 03/17/20 0648 COPY TO: HUGH CROW MD CHEST XRAY LINE [id number] 11:26:00 [place] [address] Patient Name: SUKHDEEP TINOCO MR #: [id number] : 1985 Age/Sex: 35/M Req #: [id number] Adm Physician: ANANYA KUMAR MD Ordered by: HUGH CROW MD Report #: [id number] Location: ICU Room/Bed: ICU [facility] Procedure: 17 DX/CHEST XRAY LINE PLACEMENT Exam Date: 03/16/20 Exam Time: 1030 REPORT STATUS: Sign ed EXAMINATION: CHEST XRAY LINE PLACEMENT INDICATION: Line placemen t COMPARISON: Multiple prior chest radiographs most recently of 03/16/2020 FINDINGS: LINES/TUBES:Interval placement of left PICC line which t erminates in the superior vena cava. Right PICC line terminates in the right i nnominate vein. Endotracheal tube terminates 4 cm above the latasha. Enteric tu be projects below the diaphragm with tip not visualized. EKG leads overlie the chest. LUNGS:Unchanged bilateral right greater than left interstitial and airspace opacities. PLEURA:Unchanged right pleural effusion. MEDIAST INUM:The cardiomediastinal silhouette appears unchanged in size and shape. BONES/SOFT TISSUES:No acute osseous injury. ABDOMEN:No free air under the diaphragm. IMPRESSION: New left PICC line terminates in the superior vena cava. Other lines and tubes unchanged. Unchanged bilateral pulmonar y opacities consistent with known atypical pneumonia. Signed by: Humberto Cisse MD on 03/16/2020 11:28 AM Dictated By: HUMBERTO CISSE MD Electronically S igned By: HUMBERTO CISSE MD on 03/16/20 1128 Transcribed By: JOANN on 03/16/2010 21 COPY TO: HUGH CROW MD CHEST SINGLE (PORTABLE)2020-03-16 06:57:00 [place] [address] Patient Name: SUKHDEEP TINOCO MR #: [id number] : 1985 Age/Sex: 35/M Req #: [id number] Adm Physician: ANANYA KUMAR MD Ordered by: HUGH CROW MD Report #: [id number] Location: ICU Room/Bed: ICU [facility] Procedure: 0423-00 08 DX/CHEST SINGLE (PORTABLE) Exam Date: 03/16/20 Ex am Time: 0600 REPORT STATUS: Signed EXAMINATION: CHEST SINGLE (PORTABLE) INDICATION: Respiratory failu re COMPARISON: Chest radiograph 03/15/2020. FINDINGS: LINES/TUBE S: Endotracheal tube terminates in the midtrachea. Enteric tube courses into t he stomach, the tip is not seen. The right PICC appears to have been partially retracted, likely terminating in the right brachiocephalic vein, although the tip is obscured. LUNGS: Low lung volumes on the right. Persistent bilater al airspace opacities, right greater than left. Slightly increased aeration in the right lung. PLEURA:Persistent right-sided pleural effusion. No pneumot horax. MEDIASTINUM:The cardiomediastinal silhouette appears unchanged in si ze and shape. BONES/SOFT TISSUES:No acute osseous injury. Remote right cl avicular fracture deformity. ABDOMEN:No free air under the diaphragm. IMPRESSION: Right PICC appears to have been partially retracted, likely ter minating in the right brachiocephalic vein, although the tip is obscured. Bilateral airspace opacities, right greater than left, compatible with a com bination of pneumonia and ARDS. Slightly increased aeration in the right lung. Persistent right-sided pleural effusion. Signed by: Adela Haynes on 03/16/2020 7:02 AM Dictated By: MARIBELL MOREJON MD 0702 Transcribed By: JOANN on 03/16/20 0702 COPY TO: HUGH CROW MD CHEST SINGLE (PORTABLE)2020-03-15 06:10:00 [place] [address] Patient Name: SUKHDEEP TINOCO MR #: [id number] : 0 1985 Age/Sex: 35/M Req #: [id number] Adm Physician: ANANYA KUMAR MD Ordered by: HUGH CROW MD Report #: [id number] Location: ICU Room/Bed: ICU 191-1 Procedure: 0422-00 03 DX/CHEST SINGLE (PORTABLE) Exam Date: 03/15/20 Ex am Time: 529 REPORT STATUS: Signed EXAMINATION: CHEST SINGLE (PORTABLE) INDICATION: Respiratory failu re COMPARISON: Chest radiograph 03/14/2020. FINDINGS: LINES/T UBES: Endotracheal tube terminates 5.2 cm above the latasha. Enteric tube proje cts below the diaphragm into the stomach with tip not visualized. Right PICC l ine terminates at the superior cavoatrial junction. EKG leads overlie the ches t. LUNGS: Low lung volumes on the right. Persistent bilateral airspace opac ities, right greater than left with minimal residual aeration in the right mathieu g. PLEURA:Persistent right-sided pleural effusion. No pneumothorax. ME DIASTINUM:The cardiomediastinal silhouette appears unchanged in size and shape . BONES/SOFT TISSUES:No acute osseous injury. Remote right clavicular fract ure deformity. ABDOMEN:No free air under the diaphragm. IMPRESSION: Bilateral airspace opacities, right greater than left, compatible with a co mbination of pneumonia and ARDS. Persistent right-sided pleural effusion. Signed by: Dr. Maribell Morejon MD on 03/15/2020 6:12 AM Dictated By: MAGI MOREJON MD 1 Transcribed By: JOANN on 03/15/20611 COPY TO: HUGH CROW MD CHEST SINGLE (PORTABLE)2020-03-14 06:02:00 [place] [address] Patient Name: SUKHDEEP TINOCO MR #: [id number] : 1985 Age/Sex: 35/M Req #: [id number] Adm Physician: ANANYA KUMAR MD Ordered by: HUGH CROW MD Report #: [id number] Location: ICU Room/Bed: ICU 1911 Procedure: 04200 03 DX/CHEST SINGLE (PORTABLE) Exam Date: Exam Time: REPORT STATUS: Signed EXAMINAT ION: CHEST SINGLE (PORTABLE) INDICATION: Respiratory failure COMP ARISON: Chest radiograph 03/12/2020. FINDINGS: LINES/TUBES:Endotra cheal tube terminates 5.1 cm above the latahsa. Enteric tube projects below the diaphragm into the stomach with tip not visualized. Right PICC line terminate s at the superior cavoatrial junction. EKG leads overlie the chest. LUNGS :Low lung volumes on the right. Bilateral airspace opacities, increased on the right. PLEURA:Increased small right pleural effusion. No pneumothorax. MEDIASTINUM:The cardiomediastinal silhouette appears unchanged in size and s hape. BONES/SOFT TISSUES:No acute osseous injury. Remote right clavicular f racture deformity. ABDOMEN:No free air under the diaphragm. IMPRESSI ON: Bilateral airspace opacities, increased on the right, compatible with a combination of pneumonia and ARDS. Increased small right pleural effusion. Signed by: Dr. Maribell Morejon MD on 03/14/2020 6:06 AM Dictated By: CARMELINA MOREJON MD 5 Transcrib ed By: JOANN on 03/14/20605 COPY TO: HUGH CROW MD CHEST (INCL MEDIASTINUM)2020-03-13 14:22:00 [place] [address] Patient Name: SUKHDEEP TINOCO MR #: [id number] : 1985 Age/Sex: 35/M Req #: [id number] Adm Physician: ANANYA KUMAR MD Ordered by: HUGH CROW MD Report #: [id number] Location: ICU Room/Bed: ICU 191 Procedure: US/US CHEST (INCL MEDIASTINUM) Exam Date: 03/13/20 Exam Time: 1121 REPORT STATUS: Si gned Bilateral chest ultrasound History: Pleural effusion Techniqu e/findings: Limited bilateral chest ultrasound was performed to evaluate for p leural effusion. This demonstrated a tiny trace effusions on the right and lef t. IMPRESSION: Tiny trace effusion on the right and left, insufficient i n volume for safe performance of thoracentesis. Signed by: Humberto Cisse MD on 03/13/2020 2:22 PM Dictated By: HUMBERTO CISSE MD 21 Transcribed By: JOANN on 03/13/201421 COPY TO: HUGH CROW MD CHEST SINGLE (PORTABLE)2020-03-12 10:23:00 [place] [address] Patient Name: SUKHDEEP TINOCO MR #: [id number] : 0 1985 Age/Sex: 35/M Req #: [id number] Adm Physician: ANANYA KUMAR MD Ordered by: ANANYA KUMAR MD Report #: [id number] Location: ICU Room/Bed: ICU [facility] Procedure: 0419- 0007 DX/CHEST SINGLE (PORTABLE) Exam Date: 03/12/20 Exam Time: 0900 REPORT STATUS: Sign ed EXAMINATION: CHEST SINGLE (PORTABLE) INDICATION: Hypoxemia. Bila teral pneumonia. COMPARISON: . FINDINGS: LINES/TUBES:E ndotracheal tube terminates 3 cm above the latasha. Enteric tube with the dista l tip projected on the second portion of the duodenum. Right PICC line termina myesha at the superior cavoatrial junction. EKG leads overlie the chest. MATHIEU GS:Extensive patchy airspace disease in the right lung with volume loss in the lower lobe again observed. Slight decrease in left perihilar patchy airspace disease. PLEURA: Bilateral small pleural effusions. No pneumothorax. MEDIASTINUM:The cardiomediastinal silhouette appears unchanged in size and sha pe. BONES/SOFT TISSUES:No acute osseous injury. ABDOMEN:No free air un isabella the diaphragm. IMPRESSION: Slight interval decrease in left perih ilar patchy density, otherwise is unchanged. Signed by: Dr. Emili Kurtz M.D. on 03/12/2020 10:25 AM Dictated By: CHAPARRITA KURTZ MD, MD El ectronically Signed By: CHAPARRITA KURTZ MD, MD on 03/12/20 1025 Transcribed By: Suzie WICK on 03/12/20 1025 COPY TO: ANANYA KUMAR MD CHEST SINGLE (PORTABLE)2020-03-10 10:23:00 [place] [address] Patient Name: SUKHDEEP TINOCO MR #: [id number] : 1985 Age/Sex: 35/M Req #: [id number] Adm Physician: ANANYA KUMAR MD Ordered by: HUGH CROW MD Report #: [id number] Location: ICU Room/Bed: ICU [facility] Procedure: 0417-00 05 DX/CHEST SINGLE (PORTABLE) Exam Date: 03/10/20 Ex am Time: 0930 REPORT STATUS: Signed EXAMINATION: CHEST SINGLE (PORTABLE) INDICATION: Respiratory failu re COMPARISON: Multiple prior chest radiograph most recently 03/07/2020 FINDINGS: LINES/TUBES:Endotracheal tube terminates 4 cm above the car margarito. Enteric tube projects below the diaphragm into the stomach with tip not v isualized. Right PICC line terminates at the superior cavoatrial junction. EKG leads overlie the chest. LUNGS:The lungs are moderately inflated. Unchan ged bilateral right greater than left airspace opacities. PLEURA:No pleur al effusion or pneumothorax. MEDIASTINUM:The cardiomediastinal silhouette a ppears unchanged in size and shape. BONES/SOFT TISSUES:No acute osseous i njury. ABDOMEN:No free air under the diaphragm. IMPRESSION: No s ignificant interval change. Signed by: Humberto Cisse MD on 03/10/2020 10:25 AM Dictated By: HUMBERTO CISSE MD 1025 COPY TO: LISBET CROW MD Fluoroscopic procedure less than one hour [id number] 04:25:00* Test Item Value Reference Range Interpretation Comments Differential Total Cells Counted (test code = Differen tial Total Cells Counted) 100 [facility] blood neutrophils/100 leukocytes 2020-03-10 04:25:00* Test Item Value Reference Range Interpretation Comments Neutrophils % (Manual) (test code = 29368-6) 81 40-74 [facility] blood lymphocytes/100 leukocytes 2020-03-10 04:25:00* Test Item Value Reference Range Interpretation Comments Lymphocytes % (Manual) (test code = 737-7) 6 19-48 [facility] blood monocytes/100 leukocytes 2020-03-10 04:25:00* Test Item Value Reference Range Interpretation Comments Monocytes % (Manual) (test code = 744-3) 11 3.4-9.0 [facility] blood metamyelocytes/100 [id number] 04:25:00* Test Item Value Reference Range Interpretation Comments Metamyelocytes % (test code = 740-1) 1 0-0 [facility] blood myelocytes/100 leukocytes 2020-03-10 04:25:00* Test Item Value Reference Range Interpretation Comments Myelocytes % (test code = 749-2) 1 0-0 [facility]2020-03-07 09:16:00 [place] [address] Patient Name: SUKHDEEP TINOCO MR #: [id number] : 1985 Age/Sex: 35/M Req #: [id number] Adm Physician: ANANYA KUMAR MD Ordered by: HUGH CROW MD Report #: [id number] Location: ICU Room/Bed: [place] [address] Procedure: 0414-00 04 DX/CHEST SINGLE (PORTABLE) Exam Date: 03/07/20 Ex am Time: 0830 REPORT STATUS: Signed TECHNIQUE: Frontal view of the chest. INDICATION: ARDS COMPARISON: Prior day. IMPRESSION: Lines and hardware: Stable. Heart and mediasti num: Stable. Lungs and pleura: Stable patchy airspace opacities throughout the right lung and at the left lung base. Probable small bilateral pleural effu sions/thickening. No pneumothorax. Soft tissues and bones: No acute abnormalit y. Signed by: Rufina Mart MD on 03/07/2020 9:17 AM Dictate d By: RUFINA MART DO 6 Transcribed By: JOANN on 03/07/20916 COPY TO: HUGH CROW MD CHEST SINGLE (PORTABLE)2020-03-06 10:12:00 [place] [address] Patient Name: SUKHDEEP TINOCO MR #: [id number] : 1985 Age/Sex: 35/M Req #: [id number] Adm Physician: ANANYA KUMAR MD Ordered by: HUGH CROW MD Report #: [id number] Location: ICU Room/Bed: ICU [facility] Procedure: 0413-00 14 DX/CHEST SINGLE (PORTABLE) Exam Date: 03/06/20 Ex am Time: 0830 REPORT STATUS: Signed EXAMINATION: CHEST SINGLE (PORTABLE) INDICATION: Respiratory distr ess, pneumonia COMPARISON: Multiple prior chest radiographs most recently FINDINGS: LINES/TUBES:Endotracheal tube terminates 4 cm above the latasha. Enteric tube is postpyloric. EKG leads overlie the chest. LUNGS:The lung volumes remain low. Unchanged right greater than left airspace opacities. PLEURA:No pleural effusion or pneumothorax. MEDIASTINUM: The cardiomediastinal silhouette appears unchanged in size and shape. BON ES/SOFT TISSUES:No acute osseous injury. Old right clavicular fracture. ABD OMEN:No free air under the diaphragm. IMPRESSION: No significant inte rval change. Signed by: Humberto Cisse MD on 03/06/2020 10:13 AM Dictate d By: HUMBERTO CISSE MD 1013 T ranscribed By: JOANN on 03/06/20 1013 COPY TO: HUGH CROW MD Phosphorus [id number] 21:00:00* Test Item Value Reference Range Interpretation Comments Phosphorus Level (test code = OEM3486) 5.9 2.3-4.7 [facility] color [id number] 13:30:00* Test Item Value Reference Range Interpretation Comments Urine Color (test code = 5778-6) YELLOW YELLOW [facility]ville[facility] [id number] 13:30:00* Test Item Value Reference Range Interpretation Comments Urine Clarity (test code = 10780-1) CLOUDY [facility]AR [facility] by Test strip 2020-03-05 13:30:00* Test Item Value Reference Range Interpretation Comments Urine Specific Rozet (test code = 5811-5) 1.020 1.010-1.02 5 [facility] pH measurement by automated test [id number] 13:30:00* Test Item Value Reference Range Interpretation Comments Urine pH (test code = 08526-6) 5 5-7 [facility] leukocyte esterase detection by amzircdo5254-74-32 13:30:00* Test Item Value Reference Range Interpretation Comments Urine Leukocyte Esterase (test code = 5799-2) NEGATIVE NEGATIVE [facility]ville[facility] nitrite okbcgmmqz7971-84-89 13:30:00* Test Item Value Reference Range Interpretation Comments Urine Nitrite (test code = 65121-2) NEGATIVE NEGATIVE [facility] protein measurement by test strip (mass/volume)2020-03-05 13:30:00* Test Item Value Reference Range Interpretation Comments Urine Protein (test code = 5804-0) 1+ NEGATIVE [facility] glucose frerbhphy8222-80-57 13:30:00* Test Item Value Reference Range Interpretation Comments Urine Glucose (UA) (test code = 2349-9) NEGATIVE NEGATIVE [facility]ville[facility] ketones detection by automated test weoze9116-70-02 13:30:00* Test Item Value Reference Range Interpretation Comments Urine Ketones (test code = 76177-1) NEGATIVE NEGATIVE [facility]ville[facility] urobilinogen measurement by test strip (mass/volume)2020-03-05 13:30:00* Test Item Value Reference Range Interpretation Comments Urine Urobilinogen (test code = 08134-1) 0.2 0.2-1 [facility] total bilirubin measurement (mass/volume)2020-03-05 13:30:00* Test Item Value Reference Range Interpretation Comments Urine Bilirubin (test code = 1978-6) SMALL NEGATIVE [facility]villeU[facility] erythrocytes utvnmapia3012-50-72 13:30:00* Test Item Value Reference Range Interpretation Comments Urine Blood (test code = 05563-7) 2+ NEGATIVE [facility]villeAutomated urine sediment leukocyte count by microscopy (number/high power field)2020-03-05 13:30:00* Test Item Value Reference Range Interpretation Comments Urine WBC (test code = 5821-4) 11-20 0-5 [facility]villeErythrocytes detection in urine sediment by light rqutlxiczp1964-78-07 13:30:00* Test Item Value Reference Range Interpretation Comments Urine RBC (test code = 00339-4) >50 0-5 [facility]villeBacteria detection in urine sediment by light sxqbrtasgb3400-87-15 13:30:00* Test Item Value Reference Range Interpretation Comments Urine Bacteria (test code = 95187-6) MODERATE NONE [facility] StephenvilleEpithelial cells detection in urine sediment by light iplxbhsvdh6416-50-32 13:30:00* Test Item Value Reference Range Interpretation Comments Urine Epithelial Cells (test code = 83219-5) NONE NONE [facility] StephenvilleAmorphous sediment detection in urine sediment by light gtrhylwjhz2936-58-22 13:30:00* Test Item Value Reference Range Interpretation Comments Urine Amorphous Sediment (test code = 8246-1) FEW FEW [facility] StephenvilleMucus detection in urine sediment by light vnqhejuzmm2055-12-86 13:30:00* Test Item Value Reference Range Interpretation Comments Urine Mucus (test code = 8247-9) FEW RARE [facility] StephenvilleEosinophils detection in urine sediment by [place]arez [id number] 13:30:00* Test Item Value Reference Range Interpretation Comments Urine Eosinophils (test code = 14683-9) NONE SEEN NONE SEEN [facility]villeU[facility] protein measurement (mass/volume) 2020-03-05 13:30:00* Test Item Value Reference Range Interpretation Comments Urine Random Total Protein (test code = 2888-6) 28.9 1-14 [facility]ville[facility] sodium measurement (moles/volume) 2020-03-05 13:30:00* Test Item Value Reference Range Interpretation Comments Urine Random Sodium (test code = 2955-3) 53 [facility]ville[facility] creatinine measurement (mass/volume)2020-03-05 13:30:00* Test Item Value Reference Range Interpretation Comments Urine Creatinine (test code = 2161-8) 69.28 63-166 [facility]villeRandom urine protein/creatinine ratio 2020-03-05 13:30:00* Test Item Value Reference Range Interpretation Comments Urine Protein/Creatinine Ratio (test code = 93682-0) 0.00 [facility]2020-03-04 10:04:00 [facility] [address] [place] [address] Patient Name: SUKHDEEP TINOCO MR #: [id number] : 1985 Age/Sex: 35/M Req #: [id number] Adm Physician: ANANYA KUMAR MD Ordered by: HUGH CROW MD Report #: [id number] Location: ICU Room/Bed: ICU [facility] Procedure: 041-00 02 DX/CHEST SINGLE (PORTABLE) Exam Date: 03/04/20 Ex am Time: 0830 REPORT STATUS: Signed EXAMINATION: CHEST SINGLE (PORTABLE) INDICATION: resp fa ilure [id number] COMPARISON: 03/02/2020 and 03/01/2020 FINDINGS: AP view TUBES and LINES: Stable endotracheal and NG/OG tubes and right PICC. LUNGS: Lungs are well inflated. Unchanged diffuse bilate ral lung consolidations. PLEURA: No pleural effusion or pneumothor ax. HEART AND MEDIASTINUM: The cardiomediastinal silhouette is unremarkabl e.. BONES AND SOFT TISSUES: No acute osseous lesion. Soft tissues are unremarkable. UPPER ABDOMEN: No free air under the diaphragm. IMP RESSION: Persistent diffuse bilateral alveolar consolidations, a combination of viral pneumonia and ARDS. Signed by: Adela Hansen on 03/04/2020 10:08 AM Dictated By: PEDRO WILDER MD Electr onically Signed By: PEDRO WILDER MD on 03/04/20 1008 Transcribed By: JOANN on 03/04/20 1008 COPY TO: HUGH CROW MD CHEST XRAY LINE [id number] 20:40:00 [place] [address] Patient Name: SUKHDEEP TINOCO MR #: [id number] : 1985 Age/Sex: 35/M Req #: [id number] Adm Physician: ANANYA KUMAR MD Ordered by: HUGH CROW MD Report #: [id number] Location: ICU Room/Bed: ICU [facility] Procedure: 49 DX/CHEST XRAY LINE PLACEMENT Exam Date: Exam Luis Antonio e: REPORT STATUS: Signed EXAMIN ATION: CHEST XRAY LINE PLACEMENT INDICATION: picc line place ment Y COMPARISON: Chest radiograph on 08/13/2020 FINDINGS : AP view TUBES and LINES: Stable endotracheal tube overlying the trac hea. Infradiaphragmatic NG/OG tube, unchanged. Interval placement of a right P ICC with tip overlying the cavoatrial junction. Left PICC remains unchanged. LUNGS: Lungs are well inflated. Mildly worsening bilateral alveolar and interstitial airspace opacities. PLEURA: No pleural effusion or pneu mothorax. HEART AND MEDIASTINUM: The cardiomediastinal silhouette is unrem arkable.. BONES AND SOFT TISSUES: No acute osseous lesion. Soft tissues are unremarkable. UPPER ABDOMEN: No free air under the diaphragm. IMPRESSION: Interval placement of a right PICC with tip overlying the cavo atrial junction. No pneumothorax. Mildly worsening bilateral consolidatio ns consistent with multifocal pneumonia. Signed by: Dr. Pedro Veliz M.D. on 03/02/2020 8:42 PM Dictated By: PEDRO WILDER MD 41 Transcr ibed By: JOANN on 03/02/202041 COPY TO: HUGH CROW MD CHEST SINGLE (PORTABLE)2020-03-02 09:57:00 [place] [address] Patient Name: SUKHDEEP TINOCO MR #: [id number] : 1985 Age/Sex: 35/M Req #: [id number] Adm Physician: ANANYA KUMAR MD Ordered by: ANANYA KUMAR MD Report #: [id number] Location: ICU Room/Bed: ICU [facility] Procedure: 0409- 0001 DX/CHEST SINGLE (PORTABLE) Exam Date: 03/02/20 Exam Time: 0830 REPORT STATUS: Sign ed EXAM: CHEST SINGLE (PORTABLE) DATE: 03/02/2020 5:00 AM INDICATI ON: Pneumonia COMPARISON: Multiple prior chest radiograph, last FINDINGS: Endotracheal tube terminates 4.5 cm above the latasha. Left-s ided PICC line identified in stable position identified in stable position. En teric tube noted coursing below the diaphragm. Again identified are bila teral right greater than left-sided airspace opacities, unchanged from the reggie or examination. There is no evidence for pneumothorax or significant pleural e ffusion. The cardiomediastinal silhouette is stable in appearance. No acute os seous abnormality is identified. IMPRESSION: No significant interva l change from 03/01/2020. Grossly stable appearing right greater than left si ded airspace opacities. Signed by: Dr. Colton Sandra MD on 03/02/2020 9:59 AM Dictated By: COLTON SANDRA MD 8 Transcribed By: JOANN on 03/02/20958 COPY TO: ANANYA DAMICO MD CHEST SINGLE (PORTABLE)2020-03-01 13:12:00 [place] [address] Patient Name: SUKHDEEP TINOCO MR #: [id number] : 0 1985 Age/Sex: 35/M Req #: [id number] Adm Physician: ANANYA KUMAR MD Ordered by: ANANYA KUMAR MD Report #: [id number] Location: ICU Room/Bed: ICU [facility] Procedure: 0408- 0002 DX/CHEST SINGLE (PORTABLE) Exam Date: Exam Luis Antonio e: REPORT STATUS: Signed EXAMIN ATION: CHEST SINGLE (PORTABLE) INDICATION: Pneumonia COMPARISON: Multiple prior chest regressed most recently 02/29/2020 FINDINGS: L MARGARET/TUBES:Endotracheal tube terminates 3 cm above the latasha. Left PICC line unchanged. EKG leads overlie the chest. Enteric tube unchanged LUNGS:Unchan ged bilateral right greater than left airspace opacities. PLEURA:No pleural effusion or pneumothorax. MEDIASTINUM:The cardiomediastinal silhouette samra ears unchanged in size and shape. BONES/SOFT TISSUES:No acute osseous inj ury. ABDOMEN:No free air under the diaphragm. IMPRESSION: Unchan ged bilateral right greater than left airspace opacities. Signed by: Julian Cisse MD on 03/01/2020 1:13 PM Dictated By: HUMBERTO CISSE MD Electronically S igned By: HUMBERTO CISSE MD on 03/01/20 1313 Transcribed By: JOANN on 03/01/20 13 13 COPY TO: ANANYA KUMAR MD CHEST SINGLE (PORTABLE)2020-02-29 19:25:00 [place] [address] Patient Name: SUKHDEEP TINOCO MR #: [id number] : 1985 Age/Sex: 35/M Req #: [id number] Adm Physician: ANANYA KUMAR MD Ordered by: HUGH CROW MD Report #: [id number] Location: ICU Room/Bed: [place] [address] Procedure: 35 DX/CHEST SINGLE (PORTABLE) Exam Date: 02/29/20 Ex am Time: 1805 REPORT STATUS: Signed EXAMINATION: CHEST SINGLE (PORTABLE) INDICATION: Resp Fa ilure 20200229 COMPARISON: Chest radiograph 02/28/2020 FINDINGS: AP view TUBES and LINES: Stable endotracheal tube, NG or ET tube, and left PICC. LUNGS: Lungs are well inflated. Bilateral multif ocal consolidation, right greater than left, appear mildly improved. No new consolidations. PLEURA: No pleural effusion or pneumothorax. HEART AN D MEDIASTINUM: The cardiomediastinal silhouette is unremarkable.. BONES AND SOFT TISSUES: No acute osseous lesion. Soft tissues are unremarkable. UPPER ABDOMEN: No free air under the diaphragm. IMPRESSION: Impro rabia bilateral consolidations a combination of improved multifocal pneumonia an d ARDS. Signed by: Dr. Pedro Wilder M.D. on 02/29/2020 7:34 PM Dictated By: PEDRO WILDER MD 33 Transcribed By: JOANN on 02/29/201933 COPY TO: HUGH CROW MD CHEST SINGLE (PORTABLE)2020-02-28 12:02:00 [place] [address] Patient Name: SUKHDEEP TINOCO MR #: [id number] : 1985 Age/Sex: 35/M Req #: [id number] Adm Physician: ANANYA KUMAR MD Ordered by: ANANYA KUMAR MD Report #: [id number] Location: ICU Room/Bed: [place] [address] Procedure: 0406- 0002 DX/CHEST SINGLE (PORTABLE) Exam Date: 02/28/20 Exam Time: 1130 REPORT STATUS: Sign ed EXAMINATION: CHEST SINGLE (PORTABLE) INDICATION: Pneumonia COMPARISON: Multiple prior chest radiograph most recently of 02/27/2020 FINDINGS: LINES/TUBES:Endotracheal tube terminates 4.5 cm above the latasha. Left PICC line terminates in the superior vena cava. Enteric tube projects be low the diaphragm with tip not visualized. EKG leads overlie the chest. L UNGS:Unchanged bilateral right greater than left patchy airspace opacities. PLEURA:No pleural effusion or pneumothorax. MEDIASTINUM:The cardiomediasti nal silhouette appears unchanged in size and shape. BONES/SOFT TISSUES:No acute osseous injury. Old right clavicular fracture. ABDOMEN:No free air u nder the diaphragm. IMPRESSION: No significant interval change. Signed by: Humberto Cisse MD on 02/28/2020 12:03 PM Dictated By: HUMBERTO CISSE MD 1203 Transcribed By: MARIA ANTONIA COLLINS on 02/28/20 120 COPY TO: ANANYA KUMAR MD Manual blood eosinophil count as percentage of total bcfiddutex5292-47-95 04:50:00* Test Item Value Reference Range Interpretation Comments Eosinophils % (Manual) (test code = 714-6) 1 0-7 [facility] stomatocytes detection by light nynuboyukd7386-80-73 04:50:00* Test Item Value Reference Range Interpretation Comments Stomatocytes (test code = 15378-1) [facility]2020-02-27 19:35:00 [facility] [address] [place] [address] Patient Name: SUKHDEEP TINOCO MR #: [id number] : 1985 Age/Sex: 35/M Req #: [id number] Adm Physician: ANANYA KUMAR MD Ordered by: HUGH CROW MD Report #: [id number] Location: ICU Room/Bed: ICU [facility] Procedure: 0405-00 34 DX/CHEST SINGLE (PORTABLE) Exam Date: 02/27/20 Ex am Time: 1829 REPORT STATUS: Signed EXAMINATION: CHEST SINGLE (PORTABLE) COMPARISON: Chest x-ray 1804 hours INDICATION: Status post bedside bronchoscopy 20200227 DISCUSSION: Frontal view of the chest obtained at 1842 hours. HEART AND MEDIASTINUM: The cardiomediastinal silhouette is unremarkable. LINES : Endotracheal tube is low-lying but poorly visualized due to underpenetrati on of the image. Enteric tube extends past the diaphragm. Left PICC line terminates in the SVC. LUNGS/PLEURA: Multifocal infiltrates are redem onstrated, right lung more severe than the left. Stable small bilateral pleura l effusions. No pneumothorax. BONES AND SOFT TISSUES: Stable. IMPRE SSION: 1. Low lying endotracheal tube. Recommend retraction by approximate ly 2 cm. 2. Stable pleural effusions. No pneumothorax. 3. No change in multifocal pulmonary infiltrates. Signed by: Dr. Khadar Munoz MD on 02/27/2020 7:41 PM Dictated By: KHADAR MUNOZ MD 40 Transcribed By: JOANN on 02/27/201940 COPY TO: HUGH CROW MD CHEST SINGLE (PORTABLE)2020-02-27 19:33:00 [place] [address] Patient Name: SUKHDEEP TINOCO MR #: [id number] : 1985 Age/Sex: 35/M Req #: [id number] Adm Physician: ANANYA KUMAR MD Ordered by: HUGH CROW MD Report #: [id number] Location: ICU Room/Bed: ICU [facility] Procedure: 33 DX/CHEST SINGLE (PORTABLE) Exam Date: 02/27/20 Ex am Time: 1750 REPORT STATUS: Signed EXAMINATION: CHEST SINGLE (PORTABLE) COMPARISON: Chest x-ray 1609 hours INDICATION: Endotracheal tube advancement 20200227 DISCUSSION: Frontal view of the chest obtained at 1804 hours. HEART AND MEDIASTINUM: The cardiomediastinal silhouette is unremarkable. LINES: E ndotracheal tube terminates 5 to 6 cm above the latasha. Left PICC line termina myesha in the SVC without pneumothorax. Enteric tube extends past the diaphragm LUNGS/PLEURA: Multifocal infiltrates are redemonstrated, right lung more severe than the left. Stable small bilateral pleural effusions. No pneumothora x. BONES AND SOFT TISSUES: Stable. IMPRESSION: Support devices as described above. No change in multifocal infiltrates and pleural effusio ns. Signed by: Dr. Khadar Munoz MD on 02/27/2020 7:34 PM Dictate d By: KHADAR MUNOZ MD 33 COPY TO: SANDRA CROW MD CHEST SINGLE (PORTABLE)2020-02-27 17:08:00 [place] [address] Patient Name: SUKHDEEP TINOCO MR #: [id number] : 1985 Age/Sex: 35/M Req #: [id number] Adm Physician: ANANYA KUMAR MD Ordered by: HUGH CROW MD Report #: [id number] Location: ICU Room/Bed: ICU [facility] Procedure: 29 DX/CHEST SINGLE (PORTABLE) Exam Date: 02/27/20 Ex am Time: 1600 REPORT STATUS: Signed EXAMINATION: CHEST SINGLE (PORTABLE) INDICATION: ETT ADVA NCED. NEED RECHECK POSITION ETT [id number] COMPARISON: Same day a t 9:54 AM FINDINGS: AP view TUBES and LINES: Again seen endo tracheal tube with tip approximately 4.5 cm above latasha. Stable left PICC and nasogastric tube. LUNGS: Lungs are well inflated. Again seen diffuse ming ateral airspace opacities, slightly improved on the right side PLEURA: N o significant pleural effusion or pneumothorax. HEART AND MEDIASTINUM: The cardiomediastinal silhouette is unremarkable. BONES AND SOFT TISSUES: No acute osseous lesion. Soft tissues are unremarkable. UPPER ABDOMEN: No free air under the diaphragm. IMPRESSION: Endotracheal tube with tip approximately 4.5 cm above latasha. Redemonstration of right greater than l eft bilateral airspace opacities which is slightly improved on the right side when compared to prior exam. Signed by: Dr. Nick Davis MD on 0 5:12 PM Dictated By: NICK DAVIS MD 11 Transcribed By: JOANN on 02/27/201711 COPY TO: HUGH CROW MD CHEST SINGLE (PORTABLE)2020-02-27 10:36:00 [place] [address] Patient Name: SUKHDEEP TINOCO MR #: [id number] : 0 1985 Age/Sex: 35/M Req #: [id number] Adm Physician: ANANYA KUMAR MD Ordered by: HUGH CROW MD Report #: [id number] Location: ICU Room/Bed: ICU [facility] Procedure: 0405-00 21 DX/CHEST SINGLE (PORTABLE) Exam Date: 02/27/20 Ex am Time: 0950 REPORT STATUS: Signed EXAMINATION: CHEST SINGLE (PORTABLE) INDICATION: ett 2 [id number] 0950 COMPARISON: 02/26/2020 FINDINGS: AP view TUBES and LINES: Endotracheal tube is stable with tip just above the level of the clavicles, approximately 5.8 cm above latasha. Again seen subdiaphragmatic enteric tube with tip extending outside of the left knee. LUNGS: Lungs ar e well inflated. Bilateral airspace opacities, right greater than left. PLEURA: No significant pleural effusion or pneumothorax. HEART AND MEDIAST INUM: The cardiomediastinal silhouette is unremarkable. BONES AND SOFT TISSUES: No acute osseous lesion. Soft tissues are unremarkable. UPPER ABDOMEN: No free air under the diaphragm. IMPRESSION: Unchanged hig h position of endotracheal tube. Redemonstration of bilateral airspace opaciti es, right greater than left, not significantly changed from prior exam. Signed by: Dr. Nick Davis MD on 02/27/2020 10:38 AM Dictated By: BABA Yenny DAVIS MD 1038 Trans cribed By: JOANN on 02/27/20 1038 COPY TO: HUGH CROW MD Serum or plasma folate measurement (mass/volume)2020-02-27 06:37:00* Test Item Value Reference Range Interpretation Comments Folate (test code = 2284-8) 3.4 >3.0 A serum folate concentration of less than 3.1 ng/mL isconsidered to represent cl inical deficiency.Performed at: - [facility] [address] [id number] Director: Thai Lao MD, Phone: [phone] Health [facility] StephenvilleAutomated reticulocyte count as percentage of total rtmdncujczsl3914-09-93 05:15:00* Test Item Value Reference Range Interpretation Comments Percent Reticulocyte Count (test code = 73478-6) 1.7 0.8-2 .2 [facility] iron measurement (mass/volume)2020-02-27 05:15:00* Test Item Value Reference Range Interpretation Comments Iron Level (test code = 2498-4) 15 65-175 [facility] iron binding capacity measurement (mass/volume)2020-02-27 05:15:00* Test Item Value Reference Range Interpretation Comments Total Iron Binding Capacity (test code = 2500-7) 172 261-4 78 [facility] iron saturation measurement (mass fraction)2020-02-27 05:15:00* Test Item Value Reference Range Interpretation Comments Percent Iron Saturation (test code = 2502-3) 9 15-50 [facility] plasma transferrin measurement (mass/volume)2020-02-27 05:15:00* Test Item Value Reference Range Interpretation Comments Transferrin (test code = 3034-6) 123 174-364 [facility]villeBlood cobalamin (vitamin B12) measurement (mass/volume)2020-02-27 05:15:00* Test Item Value Reference Range Interpretation Comments Vitamin B12 Level (test code = 09347-0) 644 213-408 [facility]2020-02-26 10:09:00 [place] [address] Patient Name: SUKHDEEP TINOCO MR #: [id number] : 1985 Age/Sex: 35/M Req #: [id number] Adm Physician: ANANYA KUMAR MD Ordered by: ANANYA KUMAR MD Report #: [id number] Location: ICU Room/Bed: ICU [facility] Procedure: 0404- 0002 DX/CHEST SINGLE (PORTABLE) Exam Date: 02/26/20 Exam Time: 0845 REPORT STATUS: Sign ed EXAMINATION: CHEST SINGLE (PORTABLE) INDICATION: Respiratory felisa lure COMPARISON: Multiple prior chest radiograph, most recently 02/25/2020. C T chest dated 02/18/2020. FINDINGS: LINES/TUBES:Endotracheal tub e terminates above the sternum. Enteric tube courses below the diaphragm and i s postpyloric in position. Left PICC line terminates in the superior vena cava . EKG leads overlie the chest. LUNGS:Unchanged bilateral right greater than left airspace opacities. PLEURA:No pleural effusion or pneumothorax. MEDIASTINUM:The cardiomediastinal silhouette appears unchanged in size and sha pe. BONES/SOFT TISSUES:No acute osseous injury. Unchanged old healed right clavicular fracture. ABDOMEN:No free air under the diaphragm. IMP RESSION: Unchanged bilateral right greater than left airspace opacities consi stent with known atypical pneumonia. High position of the endotracheal tu be and recommend advancement. Signed by: Sotero Kenyon MD on 02/26/20 11:04 AM Dictated By: SOTERO KENYON MD 1104 Transcribed By: JOANN on 02/26/20 1104 COPY TO: ANANYA KUMAR MD CHEST SINGLE (PORTABLE)2020-02-25 10:02:00 [place] [address] Patient Name: SUKHDEEP TINOCO MR #: [id number] : 1985 Age/Sex: 35/M Req #: [id number] Adm Physician: ANANYA KUMAR MD Ordered by: HUGH CROW MD Report #: [id number] Location: ICU Room/Bed: ICU [facility] Procedure: DX/CHEST SINGLE (PORTABLE) Exam Date: 02/25/20 Ex am Time: 0900 REPORT STATUS: Signed EXAMINATION: CHEST SINGLE (PORTABLE) INDICATION: Respiratory failu re COMPARISON: Multiple prior chest radiograph, most recently 02/24/2020 FINDINGS: LINES/TUBES:Endotracheal tube terminates 5 cm above the car margarito. Enteric tube courses below the diaphragm and is postpyloric in position. Left PICC line terminates in the superior vena cava. EKG leads overlie the [address]. LUNGS:Unchanged bilateral right greater than left airspace opacities. PLEURA:No pleural effusion or pneumothorax. MEDIASTINUM:The cardiomedia stinal silhouette appears unchanged in size and shape. BONES/SOFT TISSUES :No acute osseous injury. Unchanged old healed right clavicular fracture. ABDOMEN:No free air under the diaphragm. IMPRESSION: Unchanged bilat eral right greater than left airspace opacities consistent with known atypical pneumonia. Signed by: Humberto Cisse MD on 02/25/2020 10:04 AM Dictated By: HUMBERTO CISSE MD 1004 Tra nscribed By: JOANN on 02/25/20 1004 COPY TO: HUGH CROW MD CHEST SINGLE (PORTABLE)2020-02-24 11:20:00 [place] [address] Patient Name: SUKHDEEP TINOCO MR #: [id number] : 1985 Age/Sex: 35/M Req #: [id number] Adm Physician: ANANYA KUMAR MD Ordered by: HUGH CROW MD Report #: [id number] Location: ICU Room/Bed: ICU [facility] Procedure: 03 DX/CHEST SINGLE (PORTABLE) Exam Date: 02/24/20 Ex am Time: 1000 REPORT STATUS: Signed EXAM: CHEST SINGLE (PORTABLE) DATE: 02/24/2020 6:30 AM INDICATION : Respiratory failure COMPARISON: 02/23/2020 IMPRESSION: Endotrac heal tube identified in stable position. Enteric tube noted coursing below the diaphragm and terminating within the left upper quadrant. Left-sided PICC felecia e identified in stable position. There are increased airspace opacities, mo re prominent within the right lung. Findings are unchanged from the prior exam ination. There is no evidence for pneumothorax or significant pleural effusion . The cardiomediastinal silhouette is stable in appearance. There is a chronic deformity of the right clavicle. No acute osseous abnormality identified. Signed by: Dr. Colton Sandra MD on 02/24/2020 11:24 AM Dictated By: COLTON SANDRA MD 1124 Transcri bed By: JOANN on 02/24/20 1124 COPY TO: HUGH CROW MD CHEST SINGLE (PORTABLE)2020-02-23 10:01:00 [place] [address] Patient Name: SUKHDEEP TINOCO MR #: [id number] : 1985 Age/Sex: 35/M Req #: [id number] Adm Physician: ANANYA KUMAR MD Ordered by: HUGH CROW MD Report #: [id number] Location: ICU Room/Bed: ICU [facility] Procedure: DX/CHEST SINGLE (PORTABLE) Exam Date: 02/23/20 Ex am Time: 0900 REPORT STATUS: Signed EXAM: CHEST SINGLE (PORTABLE) DATE: 02/23/2020 7:42 AM INDICATION : Endotracheal tube advancement COMPARISON: 02/22/2020 IMPRESSION: Endotracheal tube tip terminates approximately 5.3 cm above the latasha. PICC l ine identified in stable position. Enteric tube noted coursing below the diaph ragm and terminating within the left upper quadrant in the expected region of the stomach. Again identified are bilateral airspace opacities greater on t he right. There is no evidence for pneumothorax or significant effusion. The c ardiomediastinal silhouette is stable in appearance. No acute osseous abnormal ity is identified. Signed by: Dr. Colton Sandra MD on 02/23/2020 10:06 AM Dictated By: COLTON SANDRA MD 1006 COPY TO: LISBET CROW MD Herpes simplex virus 1 DNA detection by probe and target amplification [id number] 09:00:00* Test Item Value Reference Range Interpretation Comments Herpes Simplex Virus I DNA (PCR) (test code = 67342-3) Negative Negative [facility]villeHerpes simplex virus 2 DNA detection by probe and target amplification kmtdsg7437-23-09 09:00:00* Test Item Value Reference Range Interpretation Comments Herpes Simplex Virus II DNA (PCR) (test code = 83440-5) Negative Negative This test was developed and its performance characteristicsdetermined by [employer]. It has not been clearedor approved by the U.S. Food and Drug Admi nistration. TheFDA has determined that such clearance or approval is notnecessar y. This test is used for clinical purposes. Itshould not be regarded as investig ational or research.Performed at: [place] [address] [place], [place] [id number] Director: Lynn Mccullough MD, Phone: [phone] Health [facility] Hospital StephenvilleBlood lymphocytes variant count (number/volume) 2020-02-23 04:30:00* Test Item Value Reference Range Interpretation Comments Reactive Lymphocytes (test code = 15104-9) 6 [facility]ville[facility] nucleated erythrocytes count (number/volume)2020-02-23 04:30:00* Test Item Value Reference Range Interpretation Comments Nucleated Red Blood Cells (test code = 74570-5) 1 [facility] SINGLE (PORTABLE)2020-02-22 18:43:00 [facility] [address] [place] [address] Patient Name: SUKHDEEP TINOCO MR #: [id number] : 1985 Age/Sex: 35/M Req #: [id number] Adm Physician: ANANYA KUMAR MD Ordered by: HUGH CROW MD Report #: [id number] Location: ICU Room/Bed: ICU [facility] Procedure: 03300 24 DX/CHEST SINGLE (PORTABLE) Exam Date: 02/22/20 Ex am Time: 1730 REPORT STATUS: Signed EXAMINATION: CHEST SINGLE (PORTABLE) INDICATION: Pneumonia CO MPARISON: Chest x-ray performed earlier same day. FINDINGS: LINES /TUBES:Endotracheal tube terminates 8.4 cm above the latasha, unchanged. Left P ICC line unchanged. Enteric tube projects below the diaphragm with side port i n the stomach and tip not visualized. LUNGS:Lung volumes are low. Unchanged bilateral right greater than left airspace opacities. PLEURA:No pleural effusion or pneumothorax. MEDIASTINUM:The cardiomediastinal silhouette appe ars unchanged in size and shape. BONES/SOFT TISSUES:No acute osseous inju ry. ABDOMEN:No free air under the diaphragm. IMPRESSION: Endotra cheal tube not significantly changed. Recommend 4 cm advancement.. Signed b y: Sotero Kenyon MD on 02/22/2020 6:45 PM Dictated By: SOTERO LOPEZ MD 44 Transcr ibed By: JOANN on 02/22/201844 COPY TO: HUGH CROW MD CHEST SINGLE (PORTABLE)2020-02-22 14:18:00 [place] [address] Patient Name: SUKHDEEP TINOCO MR #: [id number] : 1985 Age/Sex: 35/M Req #: [id number] Adm Physician: ANANYA KUMAR MD Ordered by: ANANYA KUMAR MD Report #: [id number] Location: ICU Room/Bed: ICU [facility] Procedure: 0331- 0002 DX/CHEST SINGLE (PORTABLE) Exam Date: 02/22/20 Exam Time: 1330 REPORT STATUS: Sign ed EXAMINATION: CHEST SINGLE (PORTABLE) INDICATION: Pneumonia COMPARISON: Chest are graft 02/21/2020 FINDINGS: LINES/TUBES:Endot melody tube terminates 8.4 cm above the latasha. Left PICC line unchanged. Ent nathan tube projects below the diaphragm with side port in the stomach and tip n ot visualized. LUNGS:Lung volumes are low. Continued worsening of bilateral right greater than left airspace opacities. PLEURA:No pleural effusion o r pneumothorax. MEDIASTINUM:The cardiomediastinal silhouette appears unchan ged in size and shape. BONES/SOFT TISSUES:No acute osseous injury. A BDOMEN:No free air under the diaphragm. IMPRESSION: Endotracheal tube terminates 8.4 cm above the latasha. Recommend advancement by approximately 4 cm. Continued worsening of bilateral right greater than left airspace opaci ties. Signed by: Humberto Cisse MD on 02/22/2020 2:27 PM Dictated By: CAITLIN CISSE MD 1427 Transcrib ed By: JOANN on 02/22/20 1427 COPY TO: ANANYA KUMAR MD CHEST SINGLE (PORTABLE)2020-02-21 11:47:00 [facility] [address] [place] [address] Patient Name: SUKHDEEP TINOCO MR #: [id number] : 1985 Age/Sex: 35/M Req #: [id number] Adm Physician: ANANYA KUMAR MD Ordered by: ANANYA KUMAR MD Report #: [id number] Location: ICU Room/Bed: ICU [facility] Procedure: 0330- 0005 DX/CHEST SINGLE (PORTABLE) Exam Date: 02/21/20 Exam Time: 1103 REPORT STATUS: Sign ed EXAMINATION: CHEST SINGLE (PORTABLE) INDICATION: Respiratory felisa lure, pneumonia COMPARISON: Chest radiograph 02/19/2020 FINDINGS: LINES/TUBES:Endotracheal tube terminates 5.9 cm above the latasha. Left PICC line terminates near the superior cavoatrial junction. Enteric tube terminate s in the distal stomach. LUNGS:The lungs are moderately inflated. Unchang ed bilateral right greater than left airspace opacities. PLEURA:No pleura l effusion or pneumothorax. MEDIASTINUM:The cardiomediastinal silhouette ap pears unchanged in size and shape. BONES/SOFT TISSUES:No acute osseous in jury. ABDOMEN:No free air under the diaphragm. IMPRESSION: Lines and tubes as above. Unchanged bilateral right greater than left airspace o pacities consistent with pneumonia. Signed by: Humberto Cisse MD on 0 11:50 AM Dictated By: HUMBERTO CISSE MD 1150 Transcribed By: JOANN on 02/21/20 1150 COPY TO: ANANYA KUMAR MD CHEST SINGLE (PORTABLE)2020-02-19 23:29:00 [place] [address] Patient Name: SUKHDEEP TINOCO MR #: [id number] : 0 1985 Age/Sex: 35/M Req #: [id number] Adm Physician: ANANYA KUMAR MD Ordered by: HUGH CROW MD Report #: [id number] Location: ICU Room/Bed: ICU [facility] Procedure: 0328-00 38 DX/CHEST SINGLE (PORTABLE) Exam Date: 02/19/20 Ex am Time: 2300 REPORT STATUS: Signed EXAMINATION: CHEST SINGLE (PORTABLE) INDICATION: PICC line placeme nt, verify position COMPARISON: Chest CT 02/18/2020 FINDINGS : TUBES and LINES: New left IJ CVC, tip in the right superior cavoatri al junction. ET tube tip terminates 4.8 cm above latasha. Enteric tube courses into abdomen, tip out of field of view. LUNGS: Normal lung volumes. Pers istent right lung and left mid/lower lung haziness. PLEURA: No pleural e ffusion or pneumothorax. HEART AND MEDIASTINUM: The cardiomediastinal silh ouette is unremarkable. BONES AND SOFT TISSUES: No acute osseous lesio n. Soft tissues are unremarkable. UPPER ABDOMEN: No free air under the d iaphragm. IMPRESSION: New left IJ CVC, tip in the right superior cavoatrial junction. Persistent findings of multifocal pneumonia concerning for viral pneumonia. Findings were discussed with ICU nurse at 11:40 PM on 02/20/[address] Ocampo via telephone. Signed by: Mahesh Ocampo DO on 02/20/2020 12:04 AM Dictated By: MAHESH OCAMPO DO Electronically Sign ed By: MAHESH OCAMPO DO on 02/20/20 0004 Transcribed By: JOANN on 02/20/20 0004 COPY TO: HUGH CROW MD ABDOMEN-1VIEW (KUB)2020-02-19 12:17:00 [place] [address] Patient Name: SUKHDEEP TINOCO MR #: [id number] : 1985 Age/Sex: 35/M Req #: [id number] Adm Physician: ANANYA KUMAR MD Ordered by: HUGH CROW MD Report #: [id number] Location: ICU Room/Bed: ICU [facility] Procedure: [id number] 21 DX/ABDOMEN-1VIEW (KUB) Exam Date: 02/19/20 Exam T sunita: 1130 REPORT STATUS: Signed EXAM: Abdomen 1 Views INDICATION: Gastric tube placement [id number] 0 COMPARISON: Chest radiograph 02/19/2020 FINDINGS: Lines/tubes : Interval placement of NG/OG tube with tip overlying the distal gastric body . Mild amount of stool in the colon. No dilated loops of small bowel. No renal calculi. No abnormal soft tissue masses. Mild degenerative changes in the lumbar spine and pelvis. IMPRESSION: Interval placement of NG/OG tube with tip overlying the distal gastric body. Signed by: Dr. Roro Wilder M.D. on 02/19/2020 12:23 PM Dictated By: PEDRO WILDER MD 1223 Transcribed By: JOANN on 02/19/20 1223 COPY TO: HUGH CROW MD CHEST SINGLE (PORTABLE)2020-02-19 12:12:00 [place] [address] Patient Name: SUKHDEEP TINOCO MR #: [id number] : 1985 Age/Sex: 35/M Req #: [id number] Adm Physician: ANANYA KUMAR MD Ordered by: HUGH CROW MD Report #: [id number] Location: ICU Room/Bed: ICU [facility] Procedure: [id number] DX/CHEST SINGLE (PORTABLE) Exam Date: 02/19/20 Ex am Time: 1130 REPORT STATUS: Signed EXAMINATION: CHEST SINGLE (PORTABLE) INDICATION: intubat ion 20200219 COMPARISON: Chest radiograph 02/19/[address] chest 02/18/2020 FINDINGS: AP view TUBES and LINES: Interval intubation with endotracheal tip overlying the mid trachea, 4.5 cm above the c alexis. Interval placement of NG/OG tube with tip overlying the distal gastric body. LUNGS: Lungs are well inflated. Persistent severe right greater neeraj n left groundglass consolidations. PLEURA: No pleural effusion or pneumothorax. HEART AND MEDIASTINUM: The cardiomediastinal silhouette is u nremarkable.. BONES AND SOFT TISSUES: No acute osseous lesion. Soft tis sues are unremarkable. UPPER ABDOMEN: No free air under the diaphragm. IMPRESSION: Interval placement of NG/O NG tube and endotracheal tube w hich appear in adequate position. Persistent bilateral, right greater neeraj n left, consolidations highly concerning for viral pneumonia. Correlate with v iral panel results. Signed by: Dr. Pedro Wilder M.D. on 02/18 12:17 PM Dictated By: PEDRO WILDER MD Electronically Si gned By: PEDRO WILDER MD on 02/19/201216 Transcribed By: JOANN on 02/19/207 COPY TO: HUGH CROW MD CHEST SINGLE (PORTABLE) 2020-02-19 08:43:00 [place] [address] Patient Name: SUKHDEEP TINOCO MR #: [id number] : 1985 Age/Sex: 35/M Req #: [id number] Adm Physician: ANANYA KUMAR MD Ordered by: ANANYA KUMAR MD Report #: [id number] Location: ICU Room/Bed: ICU [facility] Procedure: [id number] DX/CHEST SINGLE (PORTABLE) Exam Date: 02/19/20 Exam Time: 0815 REPORT STATUS: Sign ed EXAMINATION: CHEST SINGLE (PORTABLE) INDICATION: bilat eral multifocal pneumonia [id number] 0815 Y COMPARISON: CT ches t 02/18/2020 FINDINGS: AP view TUBES and LINES: None. ANGEL NGS: Lungs are well inflated. Persistent bilateral, right greater than left, alveolar opacities. PLEURA: No pleural effusion or pneumothorax. HEART AND MEDIASTINUM: The cardiomediastinal silhouette is unremarkable.. BONES AND SOFT TISSUES: Chronic posttraumatic deformity of the right clavi jonathan. Soft tissues are unremarkable. UPPER ABDOMEN: No free air under the diaphragm. IMPRESSION: Persistent multifocal alveolar opacities wit h a CT pattern highly suggestive of viral pneumonia. Signed by: Dr. Rosalinda Wilder M.D. on 02/19/2020 8:46 AM Dictated By: PEDRO WILDER MD 0846 COPY TO: ANANYA KUMAR MD Fluoroscopic procedure less than one hour [id number] 04:45:00 * Test Item Value Reference Range Interpretation Comments Hemoglobin A1c Percent (test code = Hemoglobin A1c Percent) 10.7 4.0-7.0 [facility] plasma lipase [facility] (enzymatic activity/volume)2020-02-19 04:45:00* Test Item Value Reference Range Interpretation Comments Lipase (test code = 3040-3) 67 8-78 [facility] [id number] 04:45:00* Test Item Value Reference Range Interpretation Comments Procalcitonin (test code = 044320577) 0.12 0.00-0.08 A procalcitonin (PCT) level above 2.0 ng/mL on the firstday of ICU admission is associated with a high risk forprogression to severe sepsis and/or septic shock. A PCT level below 0.5 ng/mL on the first day of ICUadmission is associated with a low risk for progressionto severe sepsis and/or septic shock.Note: Concentrati ons <0.5 ng/mL do not exclude aninfection, on account of localized infections (withoutsystemic signs) which can be associated with such lowconcentrations, or a systemic infection in its initialstages (<6 hours).Furthermore, increased procalcitonin can occur withoutinfection. PCT concentrations between 0.5 and 2.0 ng/mLshould be interpreted taking into account the patient'shistory. It is recommended to retest PCT within 6-24 hoursif any concentrations <2 ng/mL are obtained.Performed at: [facility] [address] [id number] Director: Tahi Lao MD, Phone: [phone]er[facility] or plasma C reactive protein measurement (mass/volume) 2020-02-19 04:45:00* Test Item Value Reference Range Interpretation Comments C-Reactive Protein (test code = 1988-5) 81 0-10 Performed at: [facility] [address] [id number] Director: Thai Lao MD, Phone: [phone] [facility] [id number] 18:30:00 [facility] [address] [place] [address] Patient Name: SUKHDEEP TINOCO MR #: [id number] : 1985 Age/Sex: 35/M Req #: [id number] Adm Physician: Ordered by: ERICH GREGG CLERK OF WORKS Report #: [id number] Location: ER Room/Bed: Procedure: [id number] CT/CT CHEST W Exam Date: 02/18/20 Exam Time: 1 800 REPORT STATUS: Signed EXAMIN ATION: CT scan of the chest with contrast. TECHNIQUE: Helical CT images of the chest were performed from the lung apices to the level of the adrenal gla nds after the intravenous administration of 100 cc of Isovue 300. Coronal and sagittal reformatted images were obtained. Dose modulation, iterative reconst ruction, and/or weight based adjustment of the mA/kV was utilized to reduce th e radiation dose to as low as reasonably achievable. COMPARISON: None. CLINICAL HISTORY:Chest pain shortness breath DISCUSSION: LINES/TUB ES: None. LUNGS AND AIRWAYS: Multifocal groundglass opacities throughout t he lungs extending to the periphery with some areas of central sparing. P LEURA: No pneumothorax or pleural effusions. HEART AND MEDIASTINUM: The t hyroid gland is normal. The heart and pericardium are within normal limits. LYMPH NODES: There is no mediastinal, hilar or axillary lymphadenopathy. ABDOMEN: Hepatic steatosis. BONES AND SOFT TISSUES: No acute bony abnorm alities. IMPRESSION: Multifocal groundglass opacities throughout the lungs reflective of multifocal pneumonia. Pattern reported in viral pneum onitis. Isolation recommended. No pulmonary embolism. Signed by: Dr. Aixa Orellana M.D. on 02/18/2020 6:37 PM Dictated By: EDELMIRA ORELLANA MD 36 Transcribed By : JOANN on 02/18/201836 COPY TO: ERICH GREGG NP Influenza virus A and B antigen identification by wjjgflqyfweolcwmgq7698-59-37 14:42:00* Test Item Value Reference Range Interpretation Comments Influenza Virus Types A,B Antigen (test code = 95843-3) NEGATIVE NEGATIVE [facility]villeFluoroscopic procedure less than one hour uykyktsx3577-91-46 14:42:00* Test Item Value Reference Range Interpretation Comments Lactic Acid Level (test code = Lactic Acid Level) 1.9 0.5- 2.0 [facility] pyogenes antigen detection in iamhzo1614-63-00 14:42:00* Test Item Value Reference Range Interpretation Comments Group A Streptococcus Screen (test code = 57122-2) NEGATIVE NEG ATIVE [facility]villeFluoroscopic procedure less than one hour rbedsnit4547-18-83 14:37:00* Test Item Value Reference Range Interpretation Comments Chlamydia pneumoniae DNA (PCR) (test code = Chlamydia pneumoniae DNA (PCR)) NOT DETECTED NOT DETECT [facility]villeRespiratory virus uhhbs0593-29-69 14:37:00* Test Item Value Reference Range Interpretation Comments Influenza Type A (RT-PCR) (test code = 986670600) NOT DETECTED NOT DETECT [facility]villeFluoroscopic procedure less than one hour njqkbknp3996-55-26 14:37:00* Test Item Value Reference Range Interpretation Comments Mycoplasma pneumoniae (PCR) (test code = Mycoplasma pn eumoniae (PCR)) NOT DETECTED NOT DETECT [facility]villeRespiratory virus ocbrj1743-55-66 14:37:00* Test Item Value Reference Range Interpretation Comments Influenza Type B (RT-PCR) (test code = 168565287) NOT DETECTED NOT DETECT [facility] virus swpbn9391-11-49 14:37:00* Test Item Value Reference Range Interpretation Comments Respiratory Syncytial Virus (PCR) (test code = 632509327) NO T DETECTED NOT DETECT [facility]villeRespiratory virus xovza8366-17-77 14:37:00* Test Item Value Reference Range Interpretation Comments Bordetella pertussis DNA (PCR) (test code = 130556954) NOT DETEC YEYO NOT DETECT [facility] rhmrp4297-90-85 14:37:00* Test Item Value Reference Range Interpretation Comments Parainfluenza Type 1 (PCR) (test code = 747048932) NOT DETECTED NOT DETECT [facility]villeRespiratory virus aurig6515-45-67 14:37:00* Test Item Value Reference Range Interpretation Comments Parainfluenza Type 2 (PCR) (test code = 907890517) NOT DETECTED NOT DETECT [facility] gekux0477-75-24 14:37:00* Test Item Value Reference Range Interpretation Comments Parainfluenza Type 3 (PCR) (test code = 408590768) NOT DETECTED NOT DETECT [facility]villeFluoroscopic procedure less than one hour qsamchlg9206-82-70 14:37:00* Test Item Value Reference Range Interpretation Comments Parainfluenza Type 4 (PCR) (test code = Parainfluenza Type 4 (PCR)) NOT DETECTED NOT DETECT [facility] shrbj4834-70-02 14:37:00* Test Item Value Reference Range Interpretation Comments Rhinovirus (PCR) (test code = 017086722) NOT DETECTED NOT DETECT [facility]villeRes[facility] virus jsavg3706-99-42 14:37:00* Test Item Value Reference Range Interpretation Comments Human Metapneumovirus (PCR) (test code = 095202101) NOT DETECTED NO T DETECT [facility] nxeam5462-63-00 14:37:00* Test Item Value Reference Range Interpretation Comments Adenovirus (PCR) (test code = 245092637) NOT DETECTED NOT DETECT [facility]villeFluoroscopic procedure less than one hour fcbhgzyu6074-76-25 14:37:00* Test Item Value Reference Range Interpretation Comments Coronavirus Type 229E (PCR) (test code = Coronavirus T ype 229E (PCR)) NOT DETECTED NOT DETECT Test performed at [facility], [place] [address]RESULTS HAVE BEEN CALLED TO [facility]villeFluoroscopic procedure less than one hour qrvhjslb7976-43-01 14:37:00* Test Item Value Reference Range Interpretation Comments Coronavirus Type HKU1 (PCR) (test code = Coronavirus T ype HKU1 (PCR)) NOT DETECTED NOT DETECT [facility]villeFlu[facility]oscopic procedure less than one hour lblrkwym4710-62-47 14:37:00* Test Item Value Reference Range Interpretation Comments Coronavirus Type NL63 (PCR) (test code = Coronavirus T ype NL63 (PCR)) NOT DETECTED NOT DETECT [facility]villeFluoroscopic procedure less than one hour xhhuuqho6263-17-94 14:37:00* Test Item Value Reference Range Interpretation Comments Coronavirus Type OC43 (PCR) (test code = Coronavirus T ype OC43 (PCR)) NOT DETECTED NOT DETECT [facility]
--- NOTE | 2020-06-23 16:41 | NUR ---
WOUND CARE CONSULT TO APPLY NEGATIVE PRESSURE THERAPY ([facility]) @ [facility] CONTINUOS PRESSURE TO STAGE 4 SACRAL ULCER FOR 35 YO MALE. PT PRESENTS WITH A NEGATIVE PRESSURE THERAPY WOUND VAC ( HUFFMAN AND NEPHEW) TO SACRUM , NEGATIVE PRESSURE REMOVED; 95% GRANULATION PRESENT AND 5% FIBRIN TO WOUND BED; MEASURES 6.7 CM X 6.5CM X 2.0CM WITH UNDERMINING FROM 9 OCLOCK TO 1 OCLOCK MEASURING 3.7 CM. SEROSANGUINEOUS DRAINAGE PRESENT IN CANISTER. [facility] NEGATIVE PRESSURE WOUND VAC AND SUPPLIES DONATED BY Tangler PRESENT IN ROOM. SACRAL ULCER PACKED WITH BLACK FOAM, PERIWOUND SKIN PROTECTED AND COVERED WITH DRAPE AND BRIDGED TO RIGHT HIP AREA TO OFF LOAD SACRUM; SET AT [facility] CONTINUOS PRESSURE; SEALED. CANISTER CHANGED. PT REPORTS NO PAIN OR DISCOMFORT. PT IS READY TO BE DISCHARGE FROM HOSPITAL; INSTRUCTED TO LEAVE [facility] WOUND VAC IN PLACE AND TO FOLLOW UP AT [facility] FRIDAY FOR INITIAL VISIT (TO BRING SUPPLIES) AND TO FOLLOW UP WITH PCP IN 1 WEEK. PT AND FAMILY MEMBER INSTRUCTED TO CHARGE WOUND VAC, TO MONITOR WOUND VAC SEAL, TO MAINTAIN SEAL, TO AVOID GETTING WET, TO MAINTAIN CONNECTION AND TO DO NOT DISCONNECT FOR MORE THAN 2 HOURS. IF UNABLE TO MAINTAIN SEAL FOR MORE THAN 2 HOURS, NOTIFY MD AND WOUND CARE NURSE AND APPLY A WET TO DRY DRESSING. PT AND FAMILY MEMBER VERBALIZED UNDERSTANDING. THANK YOU FOR THIS CONSULTATION. Addendum: 06/23/20 at 1644 by Nikki Yoo RN Amended: Links added.
== END 2020-06-23 11:16 | disposition home or self-care (01) | DRG 189 ==
LOC: MED/SURG 16:32
PROVIDERS: ADMIT Internal Medicine; ATTEND Internal Medicine
PROC: 8E0ZXY6 Isolation (ICD-10-PCS; 2020-06-12)
PROC: 0DP68UZ Removal of Feeding Device from Stomach, Via Natural or Artificial Opening Endoscopic (ICD-10-PCS; principal; 2020-06-20 13:07)
DX: J96.10 Chronic respiratory failure, unspecified whether with hypoxia or hypercapnia (principal); L89.154 Pressure ulcer of sacral region, stage 4; E43 Unspecified severe protein-calorie malnutrition; I69.254 Hemiplegia and hemiparesis following other nontraumatic intracranial hemorrhage affecting left non-dominant side; N39.0 Urinary tract infection, site not specified; I82.501 Chronic embolism and thrombosis of unspecified deep veins of right lower extremity; Z68.1 Body mass index [BMI] 19.9 or less, adult; B44.1 Other pulmonary aspergillosis; B94.8 Sequelae of other specified infectious and parasitic diseases; Z93.0 Tracheostomy status; R53.81 Other malaise; B96.89 Other specified bacterial agents as the cause of diseases classified elsewhere; D63.8 Anemia in other chronic diseases classified elsewhere; Z95.828 Presence of other vascular implants and grafts; Z93.1 Gastrostomy status; K29.70 Gastritis, unspecified, without bleeding; K44.9 Diaphragmatic hernia without obstruction or gangrene; I95.1 Orthostatic hypotension; Z79.01 Long term (current) use of anticoagulants; K75.89 Other specified inflammatory liver diseases; T36.7X5A Adverse effect of antifungal antibiotics, systemically used, initial encounter; E11.40 Type 2 diabetes mellitus with diabetic neuropathy, unspecified; Z86.74 Personal history of sudden cardiac arrest
CPT/HCPCS: 36415; 43239; 71045; 71260; 74230; 76705; 80053; 80076; 81001; 82248; 82948; 83605; 85025; 85610; 87086; 94640; 97139; 97605; 97606; J0692; J2001; J2405; J2765; J7030; J7050; Q9967

== ENCOUNTER → 2020-06-26 | Outpatient (CLI) | payer SELFPAY ==
--- NOTE | 2020-06-22 09:12 | Progress Note ---
DATE: 06/22/2020 CHIEF COMPLAINT/HISTORY OF PRESENT ILLNESS: This is a 35-year-old man, whose primary treating diagnosis is resolved respiratory failure as a sequelae of his previous COVID-19 infection with concomitant bilateral bacterial pneumonia. The patient denies any cough or chest congestion. The patient states he is very eager to be discharged home. Yesterday, the patient had his G-tube decannulated. The patient's hemoglobin today is 9.9 g/dL. The patient's white blood cell count is 6700 with 65% segmented neutrophils. The patient's BUN and creatinine are 23 and 0.97 respectively. The patient's AST and ALT have normalized complete to 14 and 42 respectively. The patient is scheduled for a modified barium swallow today. The patient could not undergo physical therapy yesterday because when he stood, his blood pressure drops significantly. The patient also felt lightheaded and weak. REVIEW OF SYSTEMS: As per HPI. PHYSICAL EXAMINATION: GENERAL: He is awake. He is alert. He is fully oriented. He is in no distress. VITAL SIGNS: Pulse 110, respiratory rate 18, oxygen saturation 96% on room air, blood pressure 108/74, temperature 98.7, height 5 feet 11 inches, weight is 129 pounds. BMI is 18. INTEGUMENT: Skin is warm and dry. No pallor, jaundice, or diaphoresis. HEENT: Anicteric sclerae. Moist mucous membranes. NECK: Supple. His tracheostomy stoma is currently dressed. CARDIOVASCULAR: Tachycardic rate with regular rhythm. The patient has an S4 gallop. LUNGS: No rales. No rhonchi. No wheezes. ABDOMEN: Soft. G-tube is decannulated. No edema in the legs. The patient has some muscle wasting. NEUROLOGIC: Intact, except he has residual left upper and left lower extremity weakness. DIAGNOSES: 1. Respiratory failure (sequelae from COVID-19 infection), resolved. 2. Status post tracheostomy tube decannulation. 3. Status post G-tube decannulation. 4. Physical debility/ICU myopathy. 5. Autonomic dysfunction, likely. 6. Cerebrovascular accident in March 2020 with residual left hemiparesis. 7. Enterobacter cloacae urinary tract infection, resolved. 8. Pulmonary aspergillosis, resolved. 9. Elevated hepatic transaminases secondary to voriconazole, resolved. 10. Stage IV sacral decubitus ulcer. 11. Type 2 diabetes mellitus. 12. Underweight. BMI 18. 13. Anemia secondary to chronic disease. 14. Right lower extremity deep venous thrombosis. 15. [id number] protein-calorie malnutrition. PLAN: 1. Continue daily physical therapy. 2. Continue wound care, specifically wound VAC to the patient's stage IV sacral decubitus ulcer. 3. We will continue to hold blood pressure medications because of patient's symptomatic orthostatic hypotension. 4. Continue intravenous fluids. 5. Follow electrolytes and renal function. 6. Continue Eliquis 5 mg twice a day for his right lower extremity deep venous thrombosis. 7. Optimize the patient's nutritional status. 8. The patient will undergo modified barium swallow today. 9. We will check lactic acid level today. 10. 11. Discharge planning tentatively for tomorrow Tuesday June 23, 2020. I spent 35 minutes in the care of this patient. MD OLVIN Blackburn/FREDY /[id number] MTDD
[~2020-06-26] MED LIST: ALENDRONATE SOD70 MG PO; FERROUS SULFAT325 M1 PO; METFORMIN HCL500 MG PO
== END ==
LOC: WCC 14:34
PROVIDERS: ATTEND Internal Medicine
DX: E11.69 Type 2 diabetes mellitus with other specified complication (principal); E11.65 Type 2 diabetes mellitus with hyperglycemia; L89.154 Pressure ulcer of sacral region, stage 4; I82.501 Chronic embolism and thrombosis of unspecified deep veins of right lower extremity; J96.10 Chronic respiratory failure, unspecified whether with hypoxia or hypercapnia; I69.954 Hemiplegia and hemiparesis following unspecified cerebrovascular disease affecting left non-dominant side; I10 Essential (primary) hypertension; R53.81 Other malaise; D64.9 Anemia, unspecified; E43 Unspecified severe protein-calorie malnutrition; Z74.01 Bed confinement status

== ENCOUNTER → 2020-06-28 | Outpatient (CLI) | payer SELFPAY | LOC: WCC 14:10 | PROVIDERS: ATTEND Internal Medicine | DX: L89.154 Pressure ulcer of sacral region, stage 4 (principal); E11.69 Type 2 diabetes mellitus with other specified complication; E11.65 Type 2 diabetes mellitus with hyperglycemia; J96.10 Chronic respiratory failure, unspecified whether with hypoxia or hypercapnia; I82.501 Chronic embolism and thrombosis of unspecified deep veins of right lower extremity; I69.954 Hemiplegia and hemiparesis following unspecified cerebrovascular disease affecting left non-dominant side; I10 Essential (primary) hypertension; D64.9 Anemia, unspecified; R53.81 Other malaise; E43 Unspecified severe protein-calorie malnutrition; Z74.01 Bed confinement status ==

== ENCOUNTER → 2020-06-30 | Outpatient (CLI) | payer SELFPAY | LOC: WCC 11:41 | PROVIDERS: ATTEND Internal Medicine | DX: L89.154 Pressure ulcer of sacral region, stage 4 (principal); E11.69 Type 2 diabetes mellitus with other specified complication; E11.65 Type 2 diabetes mellitus with hyperglycemia; I69.954 Hemiplegia and hemiparesis following unspecified cerebrovascular disease affecting left non-dominant side; I82.501 Chronic embolism and thrombosis of unspecified deep veins of right lower extremity; J96.10 Chronic respiratory failure, unspecified whether with hypoxia or hypercapnia; I10 Essential (primary) hypertension; D64.9 Anemia, unspecified; R53.81 Other malaise; E43 Unspecified severe protein-calorie malnutrition; Z74.01 Bed confinement status ==

== ENCOUNTER → 2020-07-03 | Outpatient (CLI) | payer SELFPAY | LOC: WCC 13:44 | PROVIDERS: ATTEND Internal Medicine | DX: L89.154 Pressure ulcer of sacral region, stage 4 (principal); E11.69 Type 2 diabetes mellitus with other specified complication; E11.65 Type 2 diabetes mellitus with hyperglycemia; I69.954 Hemiplegia and hemiparesis following unspecified cerebrovascular disease affecting left non-dominant side; I82.501 Chronic embolism and thrombosis of unspecified deep veins of right lower extremity; J96.10 Chronic respiratory failure, unspecified whether with hypoxia or hypercapnia; I10 Essential (primary) hypertension; R53.81 Other malaise; D64.9 Anemia, unspecified; E43 Unspecified severe protein-calorie malnutrition; Z74.01 Bed confinement status ==

== ENCOUNTER → 2020-07-05 | Outpatient (CLI) | payer SELFPAY | LOC: WCC 12:54 | PROVIDERS: ATTEND Internal Medicine | DX: L89.154 Pressure ulcer of sacral region, stage 4 (principal); E11.69 Type 2 diabetes mellitus with other specified complication; E11.65 Type 2 diabetes mellitus with hyperglycemia; J96.10 Chronic respiratory failure, unspecified whether with hypoxia or hypercapnia; I82.501 Chronic embolism and thrombosis of unspecified deep veins of right lower extremity; I69.954 Hemiplegia and hemiparesis following unspecified cerebrovascular disease affecting left non-dominant side; R53.81 Other malaise; I10 Essential (primary) hypertension; D64.9 Anemia, unspecified; E43 Unspecified severe protein-calorie malnutrition; Z74.01 Bed confinement status ==

== ENCOUNTER → 2020-07-07 | Outpatient (CLI) | payer SELFPAY | LOC: WCC 13:57 | PROVIDERS: ATTEND Internal Medicine | DX: L89.154 Pressure ulcer of sacral region, stage 4 (principal); E11.69 Type 2 diabetes mellitus with other specified complication; E11.65 Type 2 diabetes mellitus with hyperglycemia; J96.10 Chronic respiratory failure, unspecified whether with hypoxia or hypercapnia; I82.501 Chronic embolism and thrombosis of unspecified deep veins of right lower extremity; I69.954 Hemiplegia and hemiparesis following unspecified cerebrovascular disease affecting left non-dominant side; R53.81 Other malaise; I10 Essential (primary) hypertension; D64.9 Anemia, unspecified; E43 Unspecified severe protein-calorie malnutrition; Z74.01 Bed confinement status ==

== ENCOUNTER → 2020-07-10 | Outpatient (CLI) | payer SELFPAY | LOC: WCC 15:48 | PROVIDERS: ATTEND Internal Medicine | DX: L89.154 Pressure ulcer of sacral region, stage 4 (principal); E11.69 Type 2 diabetes mellitus with other specified complication; E11.65 Type 2 diabetes mellitus with hyperglycemia; I82.501 Chronic embolism and thrombosis of unspecified deep veins of right lower extremity; I69.954 Hemiplegia and hemiparesis following unspecified cerebrovascular disease affecting left non-dominant side; J96.10 Chronic respiratory failure, unspecified whether with hypoxia or hypercapnia; R53.81 Other malaise; I10 Essential (primary) hypertension; D64.9 Anemia, unspecified; E43 Unspecified severe protein-calorie malnutrition; Z74.01 Bed confinement status ==

== ENCOUNTER → 2020-07-12 | Outpatient (CLI) | payer SELFPAY | LOC: WCC 12:00 | PROVIDERS: ATTEND Internal Medicine | DX: L89.154 Pressure ulcer of sacral region, stage 4 (principal); E11.69 Type 2 diabetes mellitus with other specified complication; E11.65 Type 2 diabetes mellitus with hyperglycemia; J96.10 Chronic respiratory failure, unspecified whether with hypoxia or hypercapnia; I82.501 Chronic embolism and thrombosis of unspecified deep veins of right lower extremity; I69.954 Hemiplegia and hemiparesis following unspecified cerebrovascular disease affecting left non-dominant side; R53.81 Other malaise; I10 Essential (primary) hypertension; D64.9 Anemia, unspecified; E43 Unspecified severe protein-calorie malnutrition; Z74.01 Bed confinement status ==

== ENCOUNTER → 2020-07-14 | Outpatient (CLI) | payer SELFPAY | LOC: WCC 14:38 | PROVIDERS: ATTEND Internal Medicine | DX: L89.154 Pressure ulcer of sacral region, stage 4 (principal); E11.69 Type 2 diabetes mellitus with other specified complication; E11.65 Type 2 diabetes mellitus with hyperglycemia; J96.10 Chronic respiratory failure, unspecified whether with hypoxia or hypercapnia; I82.501 Chronic embolism and thrombosis of unspecified deep veins of right lower extremity; I69.954 Hemiplegia and hemiparesis following unspecified cerebrovascular disease affecting left non-dominant side; R53.81 Other malaise; I10 Essential (primary) hypertension; D64.9 Anemia, unspecified; E43 Unspecified severe protein-calorie malnutrition; Z74.01 Bed confinement status ==

== ENCOUNTER → 2020-07-17 | Outpatient (CLI) | payer SELFPAY | LOC: WCC 14:24 | PROVIDERS: ATTEND Internal Medicine | DX: L89.154 Pressure ulcer of sacral region, stage 4 (principal); E11.69 Type 2 diabetes mellitus with other specified complication; E11.65 Type 2 diabetes mellitus with hyperglycemia; J96.10 Chronic respiratory failure, unspecified whether with hypoxia or hypercapnia; I82.501 Chronic embolism and thrombosis of unspecified deep veins of right lower extremity; I69.954 Hemiplegia and hemiparesis following unspecified cerebrovascular disease affecting left non-dominant side; R53.81 Other malaise; I10 Essential (primary) hypertension; D64.9 Anemia, unspecified; E43 Unspecified severe protein-calorie malnutrition; Z74.01 Bed confinement status ==

== ENCOUNTER → 2020-07-19 | Outpatient (CLI) | payer SELFPAY | LOC: WCC 10:42 | PROVIDERS: ATTEND Internal Medicine | DX: L89.154 Pressure ulcer of sacral region, stage 4 (principal); E11.69 Type 2 diabetes mellitus with other specified complication; E11.65 Type 2 diabetes mellitus with hyperglycemia; J96.10 Chronic respiratory failure, unspecified whether with hypoxia or hypercapnia; I82.501 Chronic embolism and thrombosis of unspecified deep veins of right lower extremity; I69.954 Hemiplegia and hemiparesis following unspecified cerebrovascular disease affecting left non-dominant side; R53.81 Other malaise; I10 Essential (primary) hypertension; D64.9 Anemia, unspecified; E43 Unspecified severe protein-calorie malnutrition; Z74.01 Bed confinement status ==

== ENCOUNTER → 2020-07-21 | Outpatient (CLI) | payer SELFPAY | LOC: WCC 15:47 | PROVIDERS: ATTEND Internal Medicine | DX: L89.154 Pressure ulcer of sacral region, stage 4 (principal); E11.69 Type 2 diabetes mellitus with other specified complication; E11.65 Type 2 diabetes mellitus with hyperglycemia; I69.954 Hemiplegia and hemiparesis following unspecified cerebrovascular disease affecting left non-dominant side; J96.10 Chronic respiratory failure, unspecified whether with hypoxia or hypercapnia; I82.501 Chronic embolism and thrombosis of unspecified deep veins of right lower extremity; I10 Essential (primary) hypertension; D64.9 Anemia, unspecified; R53.81 Other malaise; E43 Unspecified severe protein-calorie malnutrition; Z74.01 Bed confinement status ==

== ENCOUNTER → 2020-07-24 | Outpatient (CLI) | payer SELFPAY | LOC: WCC 13:59 | PROVIDERS: ATTEND Internal Medicine | DX: L89.154 Pressure ulcer of sacral region, stage 4 (principal); E11.69 Type 2 diabetes mellitus with other specified complication; E11.65 Type 2 diabetes mellitus with hyperglycemia; J96.10 Chronic respiratory failure, unspecified whether with hypoxia or hypercapnia; I82.501 Chronic embolism and thrombosis of unspecified deep veins of right lower extremity; I69.954 Hemiplegia and hemiparesis following unspecified cerebrovascular disease affecting left non-dominant side; I10 Essential (primary) hypertension; R53.81 Other malaise; D64.9 Anemia, unspecified; E43 Unspecified severe protein-calorie malnutrition; Z74.01 Bed confinement status ==

== ENCOUNTER → 2020-07-26 | Outpatient (CLI) | payer SELFPAY | LOC: WCC 13:41 | PROVIDERS: ATTEND Internal Medicine | DX: L89.154 Pressure ulcer of sacral region, stage 4 (principal); E11.69 Type 2 diabetes mellitus with other specified complication; E11.65 Type 2 diabetes mellitus with hyperglycemia; J96.10 Chronic respiratory failure, unspecified whether with hypoxia or hypercapnia; I82.501 Chronic embolism and thrombosis of unspecified deep veins of right lower extremity; I69.954 Hemiplegia and hemiparesis following unspecified cerebrovascular disease affecting left non-dominant side; R53.81 Other malaise; I10 Essential (primary) hypertension; D64.9 Anemia, unspecified; E43 Unspecified severe protein-calorie malnutrition; Z74.01 Bed confinement status ==

== ENCOUNTER → 2020-07-28 | Outpatient (CLI) | payer SELFPAY | LOC: WCC 13:03 | PROVIDERS: ATTEND Internal Medicine | DX: L89.154 Pressure ulcer of sacral region, stage 4 (principal); E11.69 Type 2 diabetes mellitus with other specified complication; E11.65 Type 2 diabetes mellitus with hyperglycemia; J96.10 Chronic respiratory failure, unspecified whether with hypoxia or hypercapnia; I82.501 Chronic embolism and thrombosis of unspecified deep veins of right lower extremity; I69.954 Hemiplegia and hemiparesis following unspecified cerebrovascular disease affecting left non-dominant side; I10 Essential (primary) hypertension; R53.81 Other malaise; D64.9 Anemia, unspecified; E43 Unspecified severe protein-calorie malnutrition; Z74.01 Bed confinement status ==

== ENCOUNTER → 2020-08-01 | Outpatient (CLI) | payer SELFPAY | LOC: WCC 14:45 | PROVIDERS: ATTEND Internal Medicine | DX: L89.154 Pressure ulcer of sacral region, stage 4 (principal); E11.69 Type 2 diabetes mellitus with other specified complication; E11.65 Type 2 diabetes mellitus with hyperglycemia; J96.10 Chronic respiratory failure, unspecified whether with hypoxia or hypercapnia; I82.501 Chronic embolism and thrombosis of unspecified deep veins of right lower extremity; I69.954 Hemiplegia and hemiparesis following unspecified cerebrovascular disease affecting left non-dominant side; R53.81 Other malaise; I10 Essential (primary) hypertension; D64.9 Anemia, unspecified; E43 Unspecified severe protein-calorie malnutrition; Z74.01 Bed confinement status ==

== ENCOUNTER → 2020-08-02 | Outpatient (CLI) | payer SELFPAY | LOC: WCC 09:00 | PROVIDERS: ATTEND Internal Medicine | DX: L89.154 Pressure ulcer of sacral region, stage 4 (principal); E11.69 Type 2 diabetes mellitus with other specified complication; E11.65 Type 2 diabetes mellitus with hyperglycemia; J96.10 Chronic respiratory failure, unspecified whether with hypoxia or hypercapnia; I82.501 Chronic embolism and thrombosis of unspecified deep veins of right lower extremity; I69.954 Hemiplegia and hemiparesis following unspecified cerebrovascular disease affecting left non-dominant side; E43 Unspecified severe protein-calorie malnutrition; R53.81 Other malaise; I10 Essential (primary) hypertension; D64.9 Anemia, unspecified; Z74.01 Bed confinement status ==

== ENCOUNTER → 2020-08-04 | Outpatient (CLI) | payer SELFPAY | LOC: WCC 13:47 | PROVIDERS: ATTEND Internal Medicine | DX: L89.154 Pressure ulcer of sacral region, stage 4 (principal); E11.65 Type 2 diabetes mellitus with hyperglycemia; E11.69 Type 2 diabetes mellitus with other specified complication; J96.10 Chronic respiratory failure, unspecified whether with hypoxia or hypercapnia; I82.501 Chronic embolism and thrombosis of unspecified deep veins of right lower extremity; I69.954 Hemiplegia and hemiparesis following unspecified cerebrovascular disease affecting left non-dominant side; I10 Essential (primary) hypertension; R53.81 Other malaise; D64.9 Anemia, unspecified; E43 Unspecified severe protein-calorie malnutrition; Z74.01 Bed confinement status ==

== ENCOUNTER → 2020-08-07 | Outpatient (CLI) | payer SELFPAY | LOC: EDSTATUS 14:28 → WCC 14:30 | PROVIDERS: ATTEND Internal Medicine | DX: L89.154 Pressure ulcer of sacral region, stage 4 (principal); E11.69 Type 2 diabetes mellitus with other specified complication; E11.65 Type 2 diabetes mellitus with hyperglycemia; J96.10 Chronic respiratory failure, unspecified whether with hypoxia or hypercapnia; I82.501 Chronic embolism and thrombosis of unspecified deep veins of right lower extremity; I69.954 Hemiplegia and hemiparesis following unspecified cerebrovascular disease affecting left non-dominant side; I10 Essential (primary) hypertension; R53.81 Other malaise; D64.9 Anemia, unspecified; E43 Unspecified severe protein-calorie malnutrition; Z74.01 Bed confinement status ==

== ENCOUNTER → 2020-08-09 | Outpatient (CLI) | payer SELFPAY | LOC: WCC 12:03 | PROVIDERS: ATTEND Internal Medicine | DX: L89.154 Pressure ulcer of sacral region, stage 4 (principal); E11.69 Type 2 diabetes mellitus with other specified complication; E11.65 Type 2 diabetes mellitus with hyperglycemia; J96.10 Chronic respiratory failure, unspecified whether with hypoxia or hypercapnia; I82.501 Chronic embolism and thrombosis of unspecified deep veins of right lower extremity; I69.954 Hemiplegia and hemiparesis following unspecified cerebrovascular disease affecting left non-dominant side; I10 Essential (primary) hypertension; R53.81 Other malaise; D64.9 Anemia, unspecified; E43 Unspecified severe protein-calorie malnutrition; Z74.01 Bed confinement status ==

== ENCOUNTER → 2020-08-11 | Outpatient (CLI) | payer SELFPAY | LOC: WCC 14:56 | PROVIDERS: ATTEND Internal Medicine | DX: L89.154 Pressure ulcer of sacral region, stage 4 (principal); E11.69 Type 2 diabetes mellitus with other specified complication; E11.65 Type 2 diabetes mellitus with hyperglycemia; J96.10 Chronic respiratory failure, unspecified whether with hypoxia or hypercapnia; I82.501 Chronic embolism and thrombosis of unspecified deep veins of right lower extremity; I69.954 Hemiplegia and hemiparesis following unspecified cerebrovascular disease affecting left non-dominant side; R53.81 Other malaise; I10 Essential (primary) hypertension; D64.9 Anemia, unspecified; E43 Unspecified severe protein-calorie malnutrition; Z74.01 Bed confinement status ==

== ENCOUNTER → 2020-08-14 | Outpatient (CLI) | payer SELFPAY | LOC: WCC 08-11 15:25 | PROVIDERS: ATTEND Internal Medicine | DX: L89.154 Pressure ulcer of sacral region, stage 4 (principal); E11.69 Type 2 diabetes mellitus with other specified complication; E11.65 Type 2 diabetes mellitus with hyperglycemia; J96.10 Chronic respiratory failure, unspecified whether with hypoxia or hypercapnia; I82.501 Chronic embolism and thrombosis of unspecified deep veins of right lower extremity; I69.954 Hemiplegia and hemiparesis following unspecified cerebrovascular disease affecting left non-dominant side; R53.81 Other malaise; I10 Essential (primary) hypertension; D64.9 Anemia, unspecified; E43 Unspecified severe protein-calorie malnutrition; Z74.01 Bed confinement status ==

== ENCOUNTER → 2020-08-18 | Outpatient (CLI) | payer SELFPAY | LOC: WCC 13:57 | PROVIDERS: ATTEND Internal Medicine | DX: L89.154 Pressure ulcer of sacral region, stage 4 (principal); E11.69 Type 2 diabetes mellitus with other specified complication; E11.65 Type 2 diabetes mellitus with hyperglycemia; J96.10 Chronic respiratory failure, unspecified whether with hypoxia or hypercapnia; I82.501 Chronic embolism and thrombosis of unspecified deep veins of right lower extremity; I69.954 Hemiplegia and hemiparesis following unspecified cerebrovascular disease affecting left non-dominant side; R53.81 Other malaise; I10 Essential (primary) hypertension; D64.9 Anemia, unspecified; E43 Unspecified severe protein-calorie malnutrition; Z74.01 Bed confinement status ==

== ENCOUNTER → 2020-08-21 | Outpatient (CLI) | payer SELFPAY | LOC: WCC 14:41 | PROVIDERS: ATTEND Internal Medicine | DX: L89.154 Pressure ulcer of sacral region, stage 4 (principal); E11.69 Type 2 diabetes mellitus with other specified complication; E11.65 Type 2 diabetes mellitus with hyperglycemia; J96.10 Chronic respiratory failure, unspecified whether with hypoxia or hypercapnia; I82.501 Chronic embolism and thrombosis of unspecified deep veins of right lower extremity; I69.954 Hemiplegia and hemiparesis following unspecified cerebrovascular disease affecting left non-dominant side; R53.81 Other malaise; I10 Essential (primary) hypertension; D64.9 Anemia, unspecified; E43 Unspecified severe protein-calorie malnutrition; Z74.01 Bed confinement status ==

== ENCOUNTER → 2020-08-23 | Outpatient (CLI) | payer SELFPAY | LOC: WCC 14:00 | PROVIDERS: ATTEND Internal Medicine | DX: L89.154 Pressure ulcer of sacral region, stage 4 (principal); E11.69 Type 2 diabetes mellitus with other specified complication; E11.65 Type 2 diabetes mellitus with hyperglycemia; J96.10 Chronic respiratory failure, unspecified whether with hypoxia or hypercapnia; I82.501 Chronic embolism and thrombosis of unspecified deep veins of right lower extremity; I69.954 Hemiplegia and hemiparesis following unspecified cerebrovascular disease affecting left non-dominant side; R53.81 Other malaise; I10 Essential (primary) hypertension; D64.9 Anemia, unspecified; E43 Unspecified severe protein-calorie malnutrition; Z74.01 Bed confinement status ==

== ENCOUNTER → 2020-08-25 | Outpatient (CLI) | payer MEDICAID | LOC: WCC 15:15 | PROVIDERS: ATTEND Internal Medicine | DX: L89.154 Pressure ulcer of sacral region, stage 4 (principal); E11.69 Type 2 diabetes mellitus with other specified complication; E11.65 Type 2 diabetes mellitus with hyperglycemia; J96.10 Chronic respiratory failure, unspecified whether with hypoxia or hypercapnia; I82.501 Chronic embolism and thrombosis of unspecified deep veins of right lower extremity; I69.954 Hemiplegia and hemiparesis following unspecified cerebrovascular disease affecting left non-dominant side; R53.81 Other malaise; I10 Essential (primary) hypertension; D64.9 Anemia, unspecified; E43 Unspecified severe protein-calorie malnutrition; Z74.01 Bed confinement status | CPT/HCPCS: 36415; 82948 ==

== ENCOUNTER → 2020-08-28 | Outpatient (CLI) | payer MEDICAID | LOC: WCC 14:58 | PROVIDERS: ATTEND Internal Medicine | DX: L89.154 Pressure ulcer of sacral region, stage 4 (principal); I69.954 Hemiplegia and hemiparesis following unspecified cerebrovascular disease affecting left non-dominant side; Z74.01 Bed confinement status; R53.81 Other malaise; J96.10 Chronic respiratory failure, unspecified whether with hypoxia or hypercapnia; I82.501 Chronic embolism and thrombosis of unspecified deep veins of right lower extremity; I10 Essential (primary) hypertension; D64.9 Anemia, unspecified; E43 Unspecified severe protein-calorie malnutrition; E11.69 Type 2 diabetes mellitus with other specified complication; E11.65 Type 2 diabetes mellitus with hyperglycemia ==

== ENCOUNTER → 2020-08-30 | Outpatient (CLI) | payer SELFPAY | LOC: WCC 14:58 | PROVIDERS: ATTEND Internal Medicine | DX: L89.154 Pressure ulcer of sacral region, stage 4 (principal); E11.69 Type 2 diabetes mellitus with other specified complication; E11.65 Type 2 diabetes mellitus with hyperglycemia; J96.10 Chronic respiratory failure, unspecified whether with hypoxia or hypercapnia; I82.501 Chronic embolism and thrombosis of unspecified deep veins of right lower extremity; I69.954 Hemiplegia and hemiparesis following unspecified cerebrovascular disease affecting left non-dominant side; R53.81 Other malaise; I10 Essential (primary) hypertension; D64.9 Anemia, unspecified; E43 Unspecified severe protein-calorie malnutrition; Z74.01 Bed confinement status ==

== ENCOUNTER → 2020-09-04 | Outpatient (CLI) | payer MEDICAID | LOC: WCC 14:16 | PROVIDERS: ATTEND Internal Medicine | DX: L89.154 Pressure ulcer of sacral region, stage 4 (principal); E11.69 Type 2 diabetes mellitus with other specified complication; E11.65 Type 2 diabetes mellitus with hyperglycemia; J96.10 Chronic respiratory failure, unspecified whether with hypoxia or hypercapnia; I82.501 Chronic embolism and thrombosis of unspecified deep veins of right lower extremity; I69.954 Hemiplegia and hemiparesis following unspecified cerebrovascular disease affecting left non-dominant side; E43 Unspecified severe protein-calorie malnutrition; I10 Essential (primary) hypertension; D64.9 Anemia, unspecified; R53.81 Other malaise; Z74.01 Bed confinement status ==

== ENCOUNTER → 2020-09-06 | Outpatient (CLI) | payer SELFPAY | LOC: WCC 15:02 | PROVIDERS: ATTEND Internal Medicine | DX: L89.154 Pressure ulcer of sacral region, stage 4 (principal); E11.69 Type 2 diabetes mellitus with other specified complication; E11.65 Type 2 diabetes mellitus with hyperglycemia; J96.10 Chronic respiratory failure, unspecified whether with hypoxia or hypercapnia; I82.501 Chronic embolism and thrombosis of unspecified deep veins of right lower extremity; I69.954 Hemiplegia and hemiparesis following unspecified cerebrovascular disease affecting left non-dominant side; E43 Unspecified severe protein-calorie malnutrition; R53.81 Other malaise; I10 Essential (primary) hypertension; D64.9 Anemia, unspecified; Z74.01 Bed confinement status ==

== ENCOUNTER → 2020-09-08 | Outpatient (CLI) | payer MEDICAID, SELFPAY | LOC: WCC 13:36 | PROVIDERS: ATTEND Internal Medicine | DX: L89.154 Pressure ulcer of sacral region, stage 4 (principal); E11.69 Type 2 diabetes mellitus with other specified complication; E11.65 Type 2 diabetes mellitus with hyperglycemia; J96.10 Chronic respiratory failure, unspecified whether with hypoxia or hypercapnia; I82.501 Chronic embolism and thrombosis of unspecified deep veins of right lower extremity; I69.954 Hemiplegia and hemiparesis following unspecified cerebrovascular disease affecting left non-dominant side; I10 Essential (primary) hypertension; R53.81 Other malaise; D64.9 Anemia, unspecified; E43 Unspecified severe protein-calorie malnutrition; Z74.01 Bed confinement status ==

== ENCOUNTER → 2020-09-11 | Outpatient (CLI) | payer SELFPAY | LOC: WCC 09:00 | PROVIDERS: ATTEND Internal Medicine | DX: L89.154 Pressure ulcer of sacral region, stage 4 (principal); E11.65 Type 2 diabetes mellitus with hyperglycemia; E11.69 Type 2 diabetes mellitus with other specified complication; J96.10 Chronic respiratory failure, unspecified whether with hypoxia or hypercapnia; I82.501 Chronic embolism and thrombosis of unspecified deep veins of right lower extremity; I69.954 Hemiplegia and hemiparesis following unspecified cerebrovascular disease affecting left non-dominant side; I10 Essential (primary) hypertension; D64.9 Anemia, unspecified; E43 Unspecified severe protein-calorie malnutrition; R53.81 Other malaise; Z74.01 Bed confinement status ==

== ENCOUNTER → 2020-09-13 | Outpatient (CLI) | payer MEDICAID | LOC: WCC 16:18 | PROVIDERS: ATTEND Internal Medicine | DX: L89.154 Pressure ulcer of sacral region, stage 4 (principal); E11.69 Type 2 diabetes mellitus with other specified complication; E11.65 Type 2 diabetes mellitus with hyperglycemia; J96.10 Chronic respiratory failure, unspecified whether with hypoxia or hypercapnia; I69.954 Hemiplegia and hemiparesis following unspecified cerebrovascular disease affecting left non-dominant side; I10 Essential (primary) hypertension; R53.81 Other malaise; I82.501 Chronic embolism and thrombosis of unspecified deep veins of right lower extremity; D64.9 Anemia, unspecified; E43 Unspecified severe protein-calorie malnutrition; Z74.01 Bed confinement status ==

== ENCOUNTER → 2020-09-15 | Outpatient (CLI) | payer MEDICAID, SELFPAY | LOC: WCC 14:43 | PROVIDERS: ATTEND Internal Medicine | DX: L89.154 Pressure ulcer of sacral region, stage 4 (principal); E11.69 Type 2 diabetes mellitus with other specified complication; E11.65 Type 2 diabetes mellitus with hyperglycemia; J96.10 Chronic respiratory failure, unspecified whether with hypoxia or hypercapnia; I82.501 Chronic embolism and thrombosis of unspecified deep veins of right lower extremity; I69.954 Hemiplegia and hemiparesis following unspecified cerebrovascular disease affecting left non-dominant side; I10 Essential (primary) hypertension; R53.81 Other malaise; D64.9 Anemia, unspecified; E43 Unspecified severe protein-calorie malnutrition; Z74.01 Bed confinement status ==

== ENCOUNTER → 2020-09-18 | Outpatient (CLI) | payer MEDICAID, SELFPAY | LOC: WCC 14:23 | PROVIDERS: ATTEND Internal Medicine | DX: L89.154 Pressure ulcer of sacral region, stage 4 (principal); E11.69 Type 2 diabetes mellitus with other specified complication; E11.65 Type 2 diabetes mellitus with hyperglycemia; J96.10 Chronic respiratory failure, unspecified whether with hypoxia or hypercapnia; I82.501 Chronic embolism and thrombosis of unspecified deep veins of right lower extremity; I69.954 Hemiplegia and hemiparesis following unspecified cerebrovascular disease affecting left non-dominant side; E43 Unspecified severe protein-calorie malnutrition; I10 Essential (primary) hypertension; R53.81 Other malaise; D64.9 Anemia, unspecified; Z74.01 Bed confinement status ==

== ENCOUNTER → 2020-09-20 | Outpatient (CLI) | payer SELFPAY | LOC: WCC 15:07 | PROVIDERS: ATTEND Internal Medicine | DX: L89.154 Pressure ulcer of sacral region, stage 4 (principal); E11.69 Type 2 diabetes mellitus with other specified complication; E11.65 Type 2 diabetes mellitus with hyperglycemia; J96.10 Chronic respiratory failure, unspecified whether with hypoxia or hypercapnia; I82.501 Chronic embolism and thrombosis of unspecified deep veins of right lower extremity; I69.954 Hemiplegia and hemiparesis following unspecified cerebrovascular disease affecting left non-dominant side; R53.81 Other malaise; I10 Essential (primary) hypertension; D64.9 Anemia, unspecified; E43 Unspecified severe protein-calorie malnutrition; Z74.01 Bed confinement status ==

== ENCOUNTER → 2020-09-22 | Outpatient (CLI) | payer SELFPAY | LOC: WCC 13:19 | PROVIDERS: ATTEND Internal Medicine | DX: L89.154 Pressure ulcer of sacral region, stage 4 (principal); E11.69 Type 2 diabetes mellitus with other specified complication; E11.65 Type 2 diabetes mellitus with hyperglycemia; J96.10 Chronic respiratory failure, unspecified whether with hypoxia or hypercapnia; I82.501 Chronic embolism and thrombosis of unspecified deep veins of right lower extremity; I69.954 Hemiplegia and hemiparesis following unspecified cerebrovascular disease affecting left non-dominant side; R53.81 Other malaise; I10 Essential (primary) hypertension; D64.9 Anemia, unspecified; E43 Unspecified severe protein-calorie malnutrition; Z74.01 Bed confinement status ==

== ENCOUNTER → 2020-09-25 | Outpatient (CLI) | payer SELFPAY | LOC: WCC 12:58 | PROVIDERS: ATTEND Internal Medicine | DX: L89.154 Pressure ulcer of sacral region, stage 4 (principal); E11.69 Type 2 diabetes mellitus with other specified complication; E11.65 Type 2 diabetes mellitus with hyperglycemia; J96.10 Chronic respiratory failure, unspecified whether with hypoxia or hypercapnia; I82.501 Chronic embolism and thrombosis of unspecified deep veins of right lower extremity; I69.954 Hemiplegia and hemiparesis following unspecified cerebrovascular disease affecting left non-dominant side; R53.81 Other malaise; I10 Essential (primary) hypertension; D64.9 Anemia, unspecified; E43 Unspecified severe protein-calorie malnutrition; Z74.01 Bed confinement status ==

== ENCOUNTER → 2020-09-27 | Outpatient (CLI) | payer SELFPAY | LOC: WCC 12:58 | PROVIDERS: ATTEND Internal Medicine | DX: L89.154 Pressure ulcer of sacral region, stage 4 (principal); E11.69 Type 2 diabetes mellitus with other specified complication; E11.65 Type 2 diabetes mellitus with hyperglycemia; J96.10 Chronic respiratory failure, unspecified whether with hypoxia or hypercapnia; I82.501 Chronic embolism and thrombosis of unspecified deep veins of right lower extremity; I69.954 Hemiplegia and hemiparesis following unspecified cerebrovascular disease affecting left non-dominant side; R53.81 Other malaise; I10 Essential (primary) hypertension; D64.9 Anemia, unspecified; E43 Unspecified severe protein-calorie malnutrition; Z74.01 Bed confinement status ==

== ENCOUNTER → 2020-09-29 | Outpatient (CLI) | payer SELFPAY | LOC: WCC 16:08 | PROVIDERS: ATTEND Internal Medicine | DX: L89.154 Pressure ulcer of sacral region, stage 4 (principal); E11.69 Type 2 diabetes mellitus with other specified complication; E11.65 Type 2 diabetes mellitus with hyperglycemia; J96.10 Chronic respiratory failure, unspecified whether with hypoxia or hypercapnia; I82.501 Chronic embolism and thrombosis of unspecified deep veins of right lower extremity; I69.954 Hemiplegia and hemiparesis following unspecified cerebrovascular disease affecting left non-dominant side; R53.81 Other malaise; I10 Essential (primary) hypertension; E43 Unspecified severe protein-calorie malnutrition; D64.9 Anemia, unspecified; Z74.01 Bed confinement status ==

== ENCOUNTER → 2020-10-02 | Outpatient (CLI) | payer MEDICAID, SELFPAY | LOC: WCC 14:46 | PROVIDERS: ATTEND Internal Medicine | DX: L89.154 Pressure ulcer of sacral region, stage 4 (principal); E11.69 Type 2 diabetes mellitus with other specified complication; E11.65 Type 2 diabetes mellitus with hyperglycemia; J96.10 Chronic respiratory failure, unspecified whether with hypoxia or hypercapnia; I82.501 Chronic embolism and thrombosis of unspecified deep veins of right lower extremity; I69.954 Hemiplegia and hemiparesis following unspecified cerebrovascular disease affecting left non-dominant side; R53.81 Other malaise; I10 Essential (primary) hypertension; D64.9 Anemia, unspecified; E43 Unspecified severe protein-calorie malnutrition; Z74.01 Bed confinement status ==

== ENCOUNTER → 2020-10-06 | Outpatient (CLI) | payer MEDICAID, SELFPAY | LOC: WCC 14:57 | PROVIDERS: ATTEND Internal Medicine | DX: L89.154 Pressure ulcer of sacral region, stage 4 (principal); E11.69 Type 2 diabetes mellitus with other specified complication; E11.65 Type 2 diabetes mellitus with hyperglycemia; J96.10 Chronic respiratory failure, unspecified whether with hypoxia or hypercapnia; I82.501 Chronic embolism and thrombosis of unspecified deep veins of right lower extremity; I69.954 Hemiplegia and hemiparesis following unspecified cerebrovascular disease affecting left non-dominant side; I10 Essential (primary) hypertension; R53.81 Other malaise; D64.9 Anemia, unspecified; E43 Unspecified severe protein-calorie malnutrition; Z74.01 Bed confinement status ==

== ENCOUNTER → 2020-10-09 | Outpatient (CLI) | payer SELFPAY | LOC: WCC 14:13 | PROVIDERS: ATTEND Internal Medicine | DX: L89.154 Pressure ulcer of sacral region, stage 4 (principal); E11.69 Type 2 diabetes mellitus with other specified complication; E11.65 Type 2 diabetes mellitus with hyperglycemia; U07.1 COVID-19; J96.10 Chronic respiratory failure, unspecified whether with hypoxia or hypercapnia; I82.501 Chronic embolism and thrombosis of unspecified deep veins of right lower extremity; I69.954 Hemiplegia and hemiparesis following unspecified cerebrovascular disease affecting left non-dominant side; I10 Essential (primary) hypertension; R53.81 Other malaise; D64.9 Anemia, unspecified; E43 Unspecified severe protein-calorie malnutrition; Z74.01 Bed confinement status ==

== ENCOUNTER → 2020-10-11 | Outpatient (CLI) | payer SELFPAY | LOC: WCC 13:42 | PROVIDERS: ATTEND Internal Medicine | DX: L89.154 Pressure ulcer of sacral region, stage 4 (principal); J96.10 Chronic respiratory failure, unspecified whether with hypoxia or hypercapnia; I82.501 Chronic embolism and thrombosis of unspecified deep veins of right lower extremity; R53.81 Other malaise; I10 Essential (primary) hypertension; D64.9 Anemia, unspecified; I69.954 Hemiplegia and hemiparesis following unspecified cerebrovascular disease affecting left non-dominant side; Z74.01 Bed confinement status ==

== ENCOUNTER → 2020-10-13 | Outpatient (CLI) | payer MEDICAID, SELFPAY | LOC: WCC 13:53 | PROVIDERS: ATTEND Internal Medicine | DX: L89.154 Pressure ulcer of sacral region, stage 4 (principal); E11.69 Type 2 diabetes mellitus with other specified complication; E11.65 Type 2 diabetes mellitus with hyperglycemia; J96.10 Chronic respiratory failure, unspecified whether with hypoxia or hypercapnia; I82.501 Chronic embolism and thrombosis of unspecified deep veins of right lower extremity; I69.954 Hemiplegia and hemiparesis following unspecified cerebrovascular disease affecting left non-dominant side; I10 Essential (primary) hypertension; R53.81 Other malaise; E43 Unspecified severe protein-calorie malnutrition; D64.9 Anemia, unspecified; Z74.01 Bed confinement status ==

== ENCOUNTER → 2020-10-16 | Outpatient (CLI) | payer SELFPAY | LOC: WCC 15:54 | PROVIDERS: ATTEND Internal Medicine | DX: L89.154 Pressure ulcer of sacral region, stage 4 (principal); E11.69 Type 2 diabetes mellitus with other specified complication; E11.65 Type 2 diabetes mellitus with hyperglycemia; J96.10 Chronic respiratory failure, unspecified whether with hypoxia or hypercapnia; I82.501 Chronic embolism and thrombosis of unspecified deep veins of right lower extremity; I69.954 Hemiplegia and hemiparesis following unspecified cerebrovascular disease affecting left non-dominant side; R53.81 Other malaise; I10 Essential (primary) hypertension; D64.9 Anemia, unspecified; E43 Unspecified severe protein-calorie malnutrition; Z74.01 Bed confinement status ==

== ENCOUNTER → 2020-10-18 | Outpatient (CLI) | payer MEDICAID, SELFPAY | LOC: WCC 13:32 | PROVIDERS: ATTEND Internal Medicine | DX: L89.154 Pressure ulcer of sacral region, stage 4 (principal); E11.69 Type 2 diabetes mellitus with other specified complication; E11.65 Type 2 diabetes mellitus with hyperglycemia; J96.10 Chronic respiratory failure, unspecified whether with hypoxia or hypercapnia; I82.501 Chronic embolism and thrombosis of unspecified deep veins of right lower extremity; I69.954 Hemiplegia and hemiparesis following unspecified cerebrovascular disease affecting left non-dominant side; I10 Essential (primary) hypertension; D64.9 Anemia, unspecified; R53.81 Other malaise; E43 Unspecified severe protein-calorie malnutrition; Z74.01 Bed confinement status ==

== ENCOUNTER → 2020-10-20 | Outpatient (CLI) | payer MEDICAID, SELFPAY | LOC: WCC 13:33 | PROVIDERS: ATTEND Internal Medicine | DX: L89.154 Pressure ulcer of sacral region, stage 4 (principal); E11.69 Type 2 diabetes mellitus with other specified complication; E11.65 Type 2 diabetes mellitus with hyperglycemia; J96.10 Chronic respiratory failure, unspecified whether with hypoxia or hypercapnia; I82.501 Chronic embolism and thrombosis of unspecified deep veins of right lower extremity; I69.954 Hemiplegia and hemiparesis following unspecified cerebrovascular disease affecting left non-dominant side; R53.81 Other malaise; D64.9 Anemia, unspecified; I10 Essential (primary) hypertension; E43 Unspecified severe protein-calorie malnutrition; Z74.01 Bed confinement status ==

== ENCOUNTER → 2020-10-23 | Outpatient (CLI) | payer MEDICAID, SELFPAY | LOC: WCC 11:17 | PROVIDERS: ATTEND Internal Medicine | DX: L89.154 Pressure ulcer of sacral region, stage 4 (principal); E11.69 Type 2 diabetes mellitus with other specified complication; E11.65 Type 2 diabetes mellitus with hyperglycemia; J96.10 Chronic respiratory failure, unspecified whether with hypoxia or hypercapnia; I82.501 Chronic embolism and thrombosis of unspecified deep veins of right lower extremity; I69.954 Hemiplegia and hemiparesis following unspecified cerebrovascular disease affecting left non-dominant side; R53.81 Other malaise; I10 Essential (primary) hypertension; D64.9 Anemia, unspecified; E43 Unspecified severe protein-calorie malnutrition; Z74.01 Bed confinement status ==

== ENCOUNTER 2020-10-25 11:33 | Outpatient (CLI) | payer MEDICAID, MEDICARE, SELFPAY | END 2020-11-23 12:00 | LOC: WCC 11:33 | PROVIDERS: ATTEND Internal Medicine | DX: L89.154 Pressure ulcer of sacral region, stage 4 (principal); E11.69 Type 2 diabetes mellitus with other specified complication; E11.65 Type 2 diabetes mellitus with hyperglycemia; J96.10 Chronic respiratory failure, unspecified whether with hypoxia or hypercapnia; I82.501 Chronic embolism and thrombosis of unspecified deep veins of right lower extremity; I10 Essential (primary) hypertension; R53.81 Other malaise; E43 Unspecified severe protein-calorie malnutrition; D64.9 Anemia, unspecified; I69.954 Hemiplegia and hemiparesis following unspecified cerebrovascular disease affecting left non-dominant side; Z74.01 Bed confinement status ==

== ENCOUNTER → 2020-10-30 | Outpatient (CLI) | payer SELFPAY | LOC: WCC 14:55 | PROVIDERS: ATTEND Internal Medicine | DX: L89.154 Pressure ulcer of sacral region, stage 4 (principal); E11.69 Type 2 diabetes mellitus with other specified complication; E11.65 Type 2 diabetes mellitus with hyperglycemia; J96.10 Chronic respiratory failure, unspecified whether with hypoxia or hypercapnia; I82.501 Chronic embolism and thrombosis of unspecified deep veins of right lower extremity; I69.954 Hemiplegia and hemiparesis following unspecified cerebrovascular disease affecting left non-dominant side; I10 Essential (primary) hypertension; E43 Unspecified severe protein-calorie malnutrition; R53.81 Other malaise; D64.9 Anemia, unspecified; Z74.01 Bed confinement status ==

== ENCOUNTER → 2020-11-01 | Outpatient (CLI) | payer MEDICAID | LOC: WCC 10:51 | PROVIDERS: ATTEND Internal Medicine | DX: L89.154 Pressure ulcer of sacral region, stage 4 (principal); E11.69 Type 2 diabetes mellitus with other specified complication; E11.65 Type 2 diabetes mellitus with hyperglycemia; J96.10 Chronic respiratory failure, unspecified whether with hypoxia or hypercapnia; I82.501 Chronic embolism and thrombosis of unspecified deep veins of right lower extremity; I69.954 Hemiplegia and hemiparesis following unspecified cerebrovascular disease affecting left non-dominant side; D64.9 Anemia, unspecified; R53.81 Other malaise; I10 Essential (primary) hypertension; E43 Unspecified severe protein-calorie malnutrition; Z74.01 Bed confinement status ==

== ENCOUNTER → 2020-11-03 | Outpatient (CLI) | payer MEDICAID | LOC: WCC 15:02 | PROVIDERS: ATTEND Internal Medicine | DX: L89.154 Pressure ulcer of sacral region, stage 4 (principal); E11.69 Type 2 diabetes mellitus with other specified complication; E11.65 Type 2 diabetes mellitus with hyperglycemia; J96.10 Chronic respiratory failure, unspecified whether with hypoxia or hypercapnia; I82.501 Chronic embolism and thrombosis of unspecified deep veins of right lower extremity; I69.954 Hemiplegia and hemiparesis following unspecified cerebrovascular disease affecting left non-dominant side; R53.81 Other malaise; I10 Essential (primary) hypertension; D64.9 Anemia, unspecified; E43 Unspecified severe protein-calorie malnutrition; Z74.01 Bed confinement status ==

== ENCOUNTER → 2020-11-06 | Outpatient (CLI) | payer MEDICAID | LOC: WCC 11:02 | PROVIDERS: ATTEND Internal Medicine | DX: L89.154 Pressure ulcer of sacral region, stage 4 (principal); E11.69 Type 2 diabetes mellitus with other specified complication; E11.65 Type 2 diabetes mellitus with hyperglycemia; J96.10 Chronic respiratory failure, unspecified whether with hypoxia or hypercapnia; I82.501 Chronic embolism and thrombosis of unspecified deep veins of right lower extremity; I69.954 Hemiplegia and hemiparesis following unspecified cerebrovascular disease affecting left non-dominant side; E43 Unspecified severe protein-calorie malnutrition; D64.9 Anemia, unspecified; R53.81 Other malaise; I10 Essential (primary) hypertension; Z74.01 Bed confinement status ==

== ENCOUNTER → 2020-11-08 | Outpatient (CLI) | payer MEDICAID | LOC: WCC 13:32 | PROVIDERS: ATTEND Internal Medicine | DX: L89.154 Pressure ulcer of sacral region, stage 4 (principal); E11.69 Type 2 diabetes mellitus with other specified complication; E11.65 Type 2 diabetes mellitus with hyperglycemia; J96.10 Chronic respiratory failure, unspecified whether with hypoxia or hypercapnia; I82.501 Chronic embolism and thrombosis of unspecified deep veins of right lower extremity; I69.954 Hemiplegia and hemiparesis following unspecified cerebrovascular disease affecting left non-dominant side; E43 Unspecified severe protein-calorie malnutrition; I10 Essential (primary) hypertension; R53.81 Other malaise; D64.9 Anemia, unspecified; Z74.01 Bed confinement status ==

== ENCOUNTER → 2020-11-10 | Outpatient (CLI) | payer MEDICAID | LOC: WCC 13:57 | PROVIDERS: ATTEND Internal Medicine | DX: L89.154 Pressure ulcer of sacral region, stage 4 (principal); E11.69 Type 2 diabetes mellitus with other specified complication; E11.65 Type 2 diabetes mellitus with hyperglycemia; J96.10 Chronic respiratory failure, unspecified whether with hypoxia or hypercapnia; I82.501 Chronic embolism and thrombosis of unspecified deep veins of right lower extremity; I69.954 Hemiplegia and hemiparesis following unspecified cerebrovascular disease affecting left non-dominant side; D64.9 Anemia, unspecified; E43 Unspecified severe protein-calorie malnutrition; I10 Essential (primary) hypertension; R53.81 Other malaise; Z74.01 Bed confinement status ==

== ENCOUNTER → 2020-11-16 | Outpatient (CLI) | payer MEDICAID | LOC: WCC 16:00 | PROVIDERS: ATTEND Internal Medicine | DX: L89.154 Pressure ulcer of sacral region, stage 4 (principal); E11.69 Type 2 diabetes mellitus with other specified complication; E11.65 Type 2 diabetes mellitus with hyperglycemia; J96.10 Chronic respiratory failure, unspecified whether with hypoxia or hypercapnia; I82.501 Chronic embolism and thrombosis of unspecified deep veins of right lower extremity; I69.954 Hemiplegia and hemiparesis following unspecified cerebrovascular disease affecting left non-dominant side; I10 Essential (primary) hypertension; R53.81 Other malaise; D64.9 Anemia, unspecified; E43 Unspecified severe protein-calorie malnutrition; Z74.01 Bed confinement status ==

== ENCOUNTER → 2020-11-20 | Outpatient (CLI) | payer MEDICAID | LOC: WCC 11:19 | PROVIDERS: ATTEND Internal Medicine Infectious Disease | DX: L89.154 Pressure ulcer of sacral region, stage 4 (principal); E11.69 Type 2 diabetes mellitus with other specified complication; E11.65 Type 2 diabetes mellitus with hyperglycemia; J96.10 Chronic respiratory failure, unspecified whether with hypoxia or hypercapnia; I82.501 Chronic embolism and thrombosis of unspecified deep veins of right lower extremity; D64.9 Anemia, unspecified; E43 Unspecified severe protein-calorie malnutrition; R53.81 Other malaise; I10 Essential (primary) hypertension; I69.954 Hemiplegia and hemiparesis following unspecified cerebrovascular disease affecting left non-dominant side; Z74.01 Bed confinement status ==

== ENCOUNTER → 2020-11-23 | Outpatient (CLI) | payer MEDICAID | LOC: WCC 15:51 | PROVIDERS: ATTEND Internal Medicine | DX: L89.154 Pressure ulcer of sacral region, stage 4 (principal); E11.69 Type 2 diabetes mellitus with other specified complication; E11.65 Type 2 diabetes mellitus with hyperglycemia; J96.10 Chronic respiratory failure, unspecified whether with hypoxia or hypercapnia; I82.501 Chronic embolism and thrombosis of unspecified deep veins of right lower extremity; I69.954 Hemiplegia and hemiparesis following unspecified cerebrovascular disease affecting left non-dominant side; I10 Essential (primary) hypertension; R53.81 Other malaise; D64.9 Anemia, unspecified; E43 Unspecified severe protein-calorie malnutrition; Z74.01 Bed confinement status ==

== ENCOUNTER 2020-11-27 13:54 | Outpatient (CLI) | payer MEDICAID, MEDICARE | END 2020-12-22 15:00 | LOC: WCC 13:54 | PROVIDERS: ATTEND Internal Medicine | DX: L89.154 Pressure ulcer of sacral region, stage 4 (principal); E11.69 Type 2 diabetes mellitus with other specified complication; E11.65 Type 2 diabetes mellitus with hyperglycemia; J96.10 Chronic respiratory failure, unspecified whether with hypoxia or hypercapnia; I82.501 Chronic embolism and thrombosis of unspecified deep veins of right lower extremity; I10 Essential (primary) hypertension; D64.9 Anemia, unspecified; R53.81 Other malaise; E43 Unspecified severe protein-calorie malnutrition; I69.954 Hemiplegia and hemiparesis following unspecified cerebrovascular disease affecting left non-dominant side; Z74.01 Bed confinement status ==

== ENCOUNTER → 2020-12-01 | Outpatient (CLI) | payer MEDICAID | LOC: WCC 15:02 | PROVIDERS: ATTEND Internal Medicine | DX: L89.154 Pressure ulcer of sacral region, stage 4 (principal); E11.69 Type 2 diabetes mellitus with other specified complication; E11.65 Type 2 diabetes mellitus with hyperglycemia; J96.10 Chronic respiratory failure, unspecified whether with hypoxia or hypercapnia; I82.501 Chronic embolism and thrombosis of unspecified deep veins of right lower extremity; I10 Essential (primary) hypertension; R53.81 Other malaise; E43 Unspecified severe protein-calorie malnutrition; D64.9 Anemia, unspecified; I69.954 Hemiplegia and hemiparesis following unspecified cerebrovascular disease affecting left non-dominant side; Z74.01 Bed confinement status ==

== ENCOUNTER → 2020-12-04 | Outpatient (CLI) | payer MEDICAID | LOC: WCC 15:56 | PROVIDERS: ATTEND Internal Medicine | DX: L89.154 Pressure ulcer of sacral region, stage 4 (principal); E11.69 Type 2 diabetes mellitus with other specified complication; E11.65 Type 2 diabetes mellitus with hyperglycemia; J96.10 Chronic respiratory failure, unspecified whether with hypoxia or hypercapnia; I82.501 Chronic embolism and thrombosis of unspecified deep veins of right lower extremity; E43 Unspecified severe protein-calorie malnutrition; R53.81 Other malaise; D64.9 Anemia, unspecified; I10 Essential (primary) hypertension; I69.954 Hemiplegia and hemiparesis following unspecified cerebrovascular disease affecting left non-dominant side; Z74.01 Bed confinement status ==

== ENCOUNTER → 2020-12-06 | Outpatient (CLI) | payer MEDICAID | LOC: WCC 13:33 | PROVIDERS: ATTEND Internal Medicine | DX: L89.154 Pressure ulcer of sacral region, stage 4 (principal); E11.69 Type 2 diabetes mellitus with other specified complication; E11.65 Type 2 diabetes mellitus with hyperglycemia; J96.10 Chronic respiratory failure, unspecified whether with hypoxia or hypercapnia; I82.501 Chronic embolism and thrombosis of unspecified deep veins of right lower extremity; E43 Unspecified severe protein-calorie malnutrition; R53.81 Other malaise; I10 Essential (primary) hypertension; D64.9 Anemia, unspecified; Z74.01 Bed confinement status; I69.954 Hemiplegia and hemiparesis following unspecified cerebrovascular disease affecting left non-dominant side ==

== ENCOUNTER → 2020-12-08 | Outpatient (CLI) | payer MEDICAID | LOC: WCC 14:07 | PROVIDERS: ATTEND Internal Medicine | DX: L89.154 Pressure ulcer of sacral region, stage 4 (principal); E11.69 Type 2 diabetes mellitus with other specified complication; E11.65 Type 2 diabetes mellitus with hyperglycemia; J96.10 Chronic respiratory failure, unspecified whether with hypoxia or hypercapnia; I82.501 Chronic embolism and thrombosis of unspecified deep veins of right lower extremity; R53.81 Other malaise; E43 Unspecified severe protein-calorie malnutrition; I10 Essential (primary) hypertension; D64.9 Anemia, unspecified; I69.954 Hemiplegia and hemiparesis following unspecified cerebrovascular disease affecting left non-dominant side; Z74.01 Bed confinement status ==

== ENCOUNTER → 2020-12-11 | Outpatient (CLI) | payer MEDICAID | LOC: WCC 15:10 | PROVIDERS: ATTEND Internal Medicine | DX: L89.154 Pressure ulcer of sacral region, stage 4 (principal); E11.69 Type 2 diabetes mellitus with other specified complication; E11.65 Type 2 diabetes mellitus with hyperglycemia; J96.10 Chronic respiratory failure, unspecified whether with hypoxia or hypercapnia; I82.501 Chronic embolism and thrombosis of unspecified deep veins of right lower extremity; E43 Unspecified severe protein-calorie malnutrition; D64.9 Anemia, unspecified; R53.81 Other malaise; I10 Essential (primary) hypertension; Z74.01 Bed confinement status; I69.954 Hemiplegia and hemiparesis following unspecified cerebrovascular disease affecting left non-dominant side ==

== ENCOUNTER → 2020-12-13 | Outpatient (CLI) | payer MEDICAID | LOC: WCC 13:28 | PROVIDERS: ATTEND Internal Medicine | DX: L89.154 Pressure ulcer of sacral region, stage 4 (principal); E11.69 Type 2 diabetes mellitus with other specified complication; E11.65 Type 2 diabetes mellitus with hyperglycemia; J96.10 Chronic respiratory failure, unspecified whether with hypoxia or hypercapnia; I82.501 Chronic embolism and thrombosis of unspecified deep veins of right lower extremity; R53.81 Other malaise; D64.9 Anemia, unspecified; I10 Essential (primary) hypertension; E43 Unspecified severe protein-calorie malnutrition; I69.954 Hemiplegia and hemiparesis following unspecified cerebrovascular disease affecting left non-dominant side; Z74.01 Bed confinement status ==

== ENCOUNTER → 2020-12-15 | Outpatient (CLI) | payer MEDICAID | LOC: WCC 13:54 | PROVIDERS: ATTEND Internal Medicine | DX: L89.154 Pressure ulcer of sacral region, stage 4 (principal); E11.69 Type 2 diabetes mellitus with other specified complication; E11.65 Type 2 diabetes mellitus with hyperglycemia; J96.10 Chronic respiratory failure, unspecified whether with hypoxia or hypercapnia; I82.501 Chronic embolism and thrombosis of unspecified deep veins of right lower extremity; E43 Unspecified severe protein-calorie malnutrition; D64.9 Anemia, unspecified; R53.81 Other malaise; I10 Essential (primary) hypertension; I69.954 Hemiplegia and hemiparesis following unspecified cerebrovascular disease affecting left non-dominant side; Z74.01 Bed confinement status ==

== ENCOUNTER → 2020-12-18 | Outpatient (CLI) | payer MEDICAID | LOC: WCC 14:05 | PROVIDERS: ATTEND Internal Medicine | DX: L89.154 Pressure ulcer of sacral region, stage 4 (principal); E11.69 Type 2 diabetes mellitus with other specified complication; E11.65 Type 2 diabetes mellitus with hyperglycemia; J96.10 Chronic respiratory failure, unspecified whether with hypoxia or hypercapnia; I82.501 Chronic embolism and thrombosis of unspecified deep veins of right lower extremity; I69.954 Hemiplegia and hemiparesis following unspecified cerebrovascular disease affecting left non-dominant side; E43 Unspecified severe protein-calorie malnutrition; R53.81 Other malaise; I10 Essential (primary) hypertension; D64.9 Anemia, unspecified; Z74.01 Bed confinement status ==

== ENCOUNTER → 2020-12-20 | Outpatient (CLI) | payer MEDICAID | LOC: WCC 12:47 | PROVIDERS: ATTEND Internal Medicine | DX: L89.154 Pressure ulcer of sacral region, stage 4 (principal); E11.69 Type 2 diabetes mellitus with other specified complication; E11.65 Type 2 diabetes mellitus with hyperglycemia; J96.10 Chronic respiratory failure, unspecified whether with hypoxia or hypercapnia; I82.501 Chronic embolism and thrombosis of unspecified deep veins of right lower extremity; R53.81 Other malaise; D64.9 Anemia, unspecified; E43 Unspecified severe protein-calorie malnutrition; I10 Essential (primary) hypertension; I69.954 Hemiplegia and hemiparesis following unspecified cerebrovascular disease affecting left non-dominant side; Z74.01 Bed confinement status ==

== ENCOUNTER → 2020-12-22 | Outpatient (CLI) | payer MEDICAID | LOC: WCC 15:20 | PROVIDERS: ATTEND Internal Medicine | DX: L89.154 Pressure ulcer of sacral region, stage 4 (principal); E11.69 Type 2 diabetes mellitus with other specified complication; E11.65 Type 2 diabetes mellitus with hyperglycemia; J96.10 Chronic respiratory failure, unspecified whether with hypoxia or hypercapnia; I82.501 Chronic embolism and thrombosis of unspecified deep veins of right lower extremity; E43 Unspecified severe protein-calorie malnutrition; R53.81 Other malaise; I10 Essential (primary) hypertension; D64.9 Anemia, unspecified; I69.954 Hemiplegia and hemiparesis following unspecified cerebrovascular disease affecting left non-dominant side; Z74.01 Bed confinement status ==

== ENCOUNTER 2020-12-25 14:56 | Outpatient (CLI) | payer MEDICAID, MEDICARE | END 2021-01-19 15:01 | LOC: WCC 14:56 | PROVIDERS: ATTEND Internal Medicine | DX: L89.154 Pressure ulcer of sacral region, stage 4 (principal); E11.69 Type 2 diabetes mellitus with other specified complication; E11.65 Type 2 diabetes mellitus with hyperglycemia; J96.10 Chronic respiratory failure, unspecified whether with hypoxia or hypercapnia; I82.501 Chronic embolism and thrombosis of unspecified deep veins of right lower extremity; R53.81 Other malaise; E43 Unspecified severe protein-calorie malnutrition; I10 Essential (primary) hypertension; D64.9 Anemia, unspecified; I69.954 Hemiplegia and hemiparesis following unspecified cerebrovascular disease affecting left non-dominant side; Z74.01 Bed confinement status ==

== ENCOUNTER → 2020-12-29 | Outpatient (CLI) | payer MEDICAID | LOC: WCC 15:35 | PROVIDERS: ATTEND Internal Medicine | DX: L89.154 Pressure ulcer of sacral region, stage 4 (principal); E11.69 Type 2 diabetes mellitus with other specified complication; E11.65 Type 2 diabetes mellitus with hyperglycemia; J96.10 Chronic respiratory failure, unspecified whether with hypoxia or hypercapnia; I82.501 Chronic embolism and thrombosis of unspecified deep veins of right lower extremity; R53.81 Other malaise; E43 Unspecified severe protein-calorie malnutrition; I10 Essential (primary) hypertension; D64.9 Anemia, unspecified; I69.954 Hemiplegia and hemiparesis following unspecified cerebrovascular disease affecting left non-dominant side; Z74.01 Bed confinement status ==

== ENCOUNTER → 2021-01-01 | Outpatient (CLI) | payer MEDICAID, MEDICARE | LOC: WCC 14:46 | PROVIDERS: ATTEND Internal Medicine | DX: L89.154 Pressure ulcer of sacral region, stage 4 (principal); E11.65 Type 2 diabetes mellitus with hyperglycemia; J96.10 Chronic respiratory failure, unspecified whether with hypoxia or hypercapnia; I82.501 Chronic embolism and thrombosis of unspecified deep veins of right lower extremity; E43 Unspecified severe protein-calorie malnutrition; D64.9 Anemia, unspecified; R53.81 Other malaise; I10 Essential (primary) hypertension; I69.954 Hemiplegia and hemiparesis following unspecified cerebrovascular disease affecting left non-dominant side; Z74.01 Bed confinement status ==

== ENCOUNTER → 2021-01-03 | Outpatient (CLI) | payer MEDICAID | LOC: WCC 16:13 | PROVIDERS: ATTEND Internal Medicine | DX: L89.154 Pressure ulcer of sacral region, stage 4 (principal); E11.69 Type 2 diabetes mellitus with other specified complication; E11.65 Type 2 diabetes mellitus with hyperglycemia; J96.10 Chronic respiratory failure, unspecified whether with hypoxia or hypercapnia; I82.501 Chronic embolism and thrombosis of unspecified deep veins of right lower extremity; R53.81 Other malaise; D64.9 Anemia, unspecified; I10 Essential (primary) hypertension; E43 Unspecified severe protein-calorie malnutrition; I69.954 Hemiplegia and hemiparesis following unspecified cerebrovascular disease affecting left non-dominant side; Z74.01 Bed confinement status ==

== ENCOUNTER → 2021-01-12 | Outpatient (CLI) | payer MEDICAID | LOC: WCC 14:37 | PROVIDERS: ATTEND Internal Medicine | DX: L89.154 Pressure ulcer of sacral region, stage 4 (principal); E11.69 Type 2 diabetes mellitus with other specified complication; E11.65 Type 2 diabetes mellitus with hyperglycemia; J96.10 Chronic respiratory failure, unspecified whether with hypoxia or hypercapnia; I82.501 Chronic embolism and thrombosis of unspecified deep veins of right lower extremity; E43 Unspecified severe protein-calorie malnutrition; I10 Essential (primary) hypertension; D64.9 Anemia, unspecified; R53.81 Other malaise; I69.954 Hemiplegia and hemiparesis following unspecified cerebrovascular disease affecting left non-dominant side; Z74.01 Bed confinement status ==

== ENCOUNTER → 2021-01-15 | Outpatient (CLI) | payer MEDICAID | LOC: WCC 15:56 | PROVIDERS: ATTEND Internal Medicine | DX: L89.154 Pressure ulcer of sacral region, stage 4 (principal); E11.69 Type 2 diabetes mellitus with other specified complication; E11.65 Type 2 diabetes mellitus with hyperglycemia; J96.10 Chronic respiratory failure, unspecified whether with hypoxia or hypercapnia; I82.501 Chronic embolism and thrombosis of unspecified deep veins of right lower extremity; R53.81 Other malaise; I10 Essential (primary) hypertension; D64.9 Anemia, unspecified; E43 Unspecified severe protein-calorie malnutrition; I69.954 Hemiplegia and hemiparesis following unspecified cerebrovascular disease affecting left non-dominant side; Z74.01 Bed confinement status ==

== ENCOUNTER → 2021-01-17 | Outpatient (CLI) | payer MEDICAID, MEDICARE | LOC: WCC 15:58 | PROVIDERS: ATTEND Internal Medicine | DX: L89.154 Pressure ulcer of sacral region, stage 4 (principal); E11.69 Type 2 diabetes mellitus with other specified complication; E11.65 Type 2 diabetes mellitus with hyperglycemia; J96.10 Chronic respiratory failure, unspecified whether with hypoxia or hypercapnia; I82.501 Chronic embolism and thrombosis of unspecified deep veins of right lower extremity; E43 Unspecified severe protein-calorie malnutrition; D64.9 Anemia, unspecified; R53.81 Other malaise; I10 Essential (primary) hypertension; I69.954 Hemiplegia and hemiparesis following unspecified cerebrovascular disease affecting left non-dominant side; Z74.01 Bed confinement status ==

== ENCOUNTER → 2021-01-24 | Outpatient (CLI) | payer MEDICAID | LOC: WCC 14:51 | PROVIDERS: ATTEND Internal Medicine | DX: L89.154 Pressure ulcer of sacral region, stage 4 (principal); E11.69 Type 2 diabetes mellitus with other specified complication; E11.65 Type 2 diabetes mellitus with hyperglycemia; J96.10 Chronic respiratory failure, unspecified whether with hypoxia or hypercapnia; I82.501 Chronic embolism and thrombosis of unspecified deep veins of right lower extremity; E43 Unspecified severe protein-calorie malnutrition; R53.81 Other malaise; I10 Essential (primary) hypertension; D64.9 Anemia, unspecified; I69.954 Hemiplegia and hemiparesis following unspecified cerebrovascular disease affecting left non-dominant side; Z74.01 Bed confinement status ==

== ENCOUNTER → 2021-01-26 | Outpatient (CLI) | payer SELFPAY | LOC: WCC 14:53 | PROVIDERS: ATTEND Internal Medicine | DX: L89.154 Pressure ulcer of sacral region, stage 4 (principal); E11.69 Type 2 diabetes mellitus with other specified complication; E11.65 Type 2 diabetes mellitus with hyperglycemia; J96.10 Chronic respiratory failure, unspecified whether with hypoxia or hypercapnia; I82.501 Chronic embolism and thrombosis of unspecified deep veins of right lower extremity; R53.81 Other malaise; I10 Essential (primary) hypertension; D64.9 Anemia, unspecified; E43 Unspecified severe protein-calorie malnutrition; I69.954 Hemiplegia and hemiparesis following unspecified cerebrovascular disease affecting left non-dominant side; Z74.01 Bed confinement status ==

== ENCOUNTER → 2021-01-29 | Outpatient (CLI) | payer SELFPAY | LOC: WCC 15:50 | PROVIDERS: ATTEND Internal Medicine | DX: L89.154 Pressure ulcer of sacral region, stage 4 (principal); E11.69 Type 2 diabetes mellitus with other specified complication; E11.65 Type 2 diabetes mellitus with hyperglycemia; J96.10 Chronic respiratory failure, unspecified whether with hypoxia or hypercapnia; I82.501 Chronic embolism and thrombosis of unspecified deep veins of right lower extremity; R53.81 Other malaise; I10 Essential (primary) hypertension; D64.9 Anemia, unspecified; E43 Unspecified severe protein-calorie malnutrition; I69.954 Hemiplegia and hemiparesis following unspecified cerebrovascular disease affecting left non-dominant side; Z74.01 Bed confinement status ==

== ENCOUNTER → 2021-01-31 | Outpatient (CLI) | payer MEDICAID, MEDICARE | LOC: WCC 14:37 | PROVIDERS: ATTEND Internal Medicine | DX: L89.154 Pressure ulcer of sacral region, stage 4 (principal); E11.69 Type 2 diabetes mellitus with other specified complication; E11.65 Type 2 diabetes mellitus with hyperglycemia; J96.10 Chronic respiratory failure, unspecified whether with hypoxia or hypercapnia; I82.501 Chronic embolism and thrombosis of unspecified deep veins of right lower extremity; E43 Unspecified severe protein-calorie malnutrition; R53.81 Other malaise; I10 Essential (primary) hypertension; D64.9 Anemia, unspecified; I69.954 Hemiplegia and hemiparesis following unspecified cerebrovascular disease affecting left non-dominant side; Z74.01 Bed confinement status ==

== ENCOUNTER → 2021-02-02 | Outpatient (CLI) | payer MEDICAID | LOC: WCC 13:59 | PROVIDERS: ATTEND Internal Medicine | DX: L89.154 Pressure ulcer of sacral region, stage 4 (principal); E11.69 Type 2 diabetes mellitus with other specified complication; E11.65 Type 2 diabetes mellitus with hyperglycemia; J96.10 Chronic respiratory failure, unspecified whether with hypoxia or hypercapnia; I82.501 Chronic embolism and thrombosis of unspecified deep veins of right lower extremity; E43 Unspecified severe protein-calorie malnutrition; R53.81 Other malaise; I10 Essential (primary) hypertension; D64.9 Anemia, unspecified; I69.954 Hemiplegia and hemiparesis following unspecified cerebrovascular disease affecting left non-dominant side; Z74.01 Bed confinement status ==

== ENCOUNTER → 2021-02-05 | Outpatient (CLI) | payer MEDICAID ==
[~2021-02-05] MED LIST changes: +LIDOCAINE/PRILOCAINE 2.5-2.5% KIT ONE
== END ==
LOC: WCC 13:28
PROVIDERS: ATTEND Plastic Surgery
DX: L89.154 Pressure ulcer of sacral region, stage 4 (principal); U07.1 COVID-19; E11.69 Type 2 diabetes mellitus with other specified complication; E11.65 Type 2 diabetes mellitus with hyperglycemia; J96.10 Chronic respiratory failure, unspecified whether with hypoxia or hypercapnia; I82.501 Chronic embolism and thrombosis of unspecified deep veins of right lower extremity; I10 Essential (primary) hypertension; D64.9 Anemia, unspecified; E43 Unspecified severe protein-calorie malnutrition; R53.81 Other malaise; I69.954 Hemiplegia and hemiparesis following unspecified cerebrovascular disease affecting left non-dominant side; Z74.01 Bed confinement status

== ENCOUNTER → 2021-02-07 | Outpatient (CLI) | payer SELFPAY ==
[~2021-02-07] MED LIST changes: -LIDOCAINE/PRILOCAINE 2.5-2.5% KIT ONE
== END ==
LOC: WCC 15:41
PROVIDERS: ATTEND Internal Medicine
DX: L89.154 Pressure ulcer of sacral region, stage 4 (principal); E11.69 Type 2 diabetes mellitus with other specified complication; E11.65 Type 2 diabetes mellitus with hyperglycemia; J96.10 Chronic respiratory failure, unspecified whether with hypoxia or hypercapnia; I82.501 Chronic embolism and thrombosis of unspecified deep veins of right lower extremity; E43 Unspecified severe protein-calorie malnutrition; D64.9 Anemia, unspecified; R53.81 Other malaise; I10 Essential (primary) hypertension; I69.954 Hemiplegia and hemiparesis following unspecified cerebrovascular disease affecting left non-dominant side; Z74.01 Bed confinement status

== ENCOUNTER → 2021-02-12 | Outpatient (CLI) | payer SELFPAY | LOC: WCC 14:08 | PROVIDERS: ATTEND Internal Medicine | DX: L89.154 Pressure ulcer of sacral region, stage 4 (principal); J96.10 Chronic respiratory failure, unspecified whether with hypoxia or hypercapnia; I82.501 Chronic embolism and thrombosis of unspecified deep veins of right lower extremity; E11.69 Type 2 diabetes mellitus with other specified complication; E11.65 Type 2 diabetes mellitus with hyperglycemia; I10 Essential (primary) hypertension; D64.9 Anemia, unspecified; R53.81 Other malaise; E43 Unspecified severe protein-calorie malnutrition; I69.954 Hemiplegia and hemiparesis following unspecified cerebrovascular disease affecting left non-dominant side; Z74.01 Bed confinement status ==

== ENCOUNTER → 2021-02-14 | Outpatient (CLI) | payer SELFPAY | LOC: WCC 13:32 | PROVIDERS: ATTEND Internal Medicine | DX: L89.154 Pressure ulcer of sacral region, stage 4 (principal); E11.69 Type 2 diabetes mellitus with other specified complication; E11.65 Type 2 diabetes mellitus with hyperglycemia; I82.501 Chronic embolism and thrombosis of unspecified deep veins of right lower extremity; J96.10 Chronic respiratory failure, unspecified whether with hypoxia or hypercapnia; I10 Essential (primary) hypertension; E43 Unspecified severe protein-calorie malnutrition; R53.81 Other malaise; D64.9 Anemia, unspecified; I69.954 Hemiplegia and hemiparesis following unspecified cerebrovascular disease affecting left non-dominant side; Z74.01 Bed confinement status ==

== ENCOUNTER → 2021-02-21 | Outpatient (RCR) | payer MEDICARE ==
[~2021-02-21] MED LIST changes: +LIDOCAINE/PRILOCAINE 2.5-2.5% KIT ONE
== END ==
LOC: WCC 02-16 14:59
PROVIDERS: ATTEND Internal Medicine
DX: L89.154 Pressure ulcer of sacral region, stage 4 (principal); E11.69 Type 2 diabetes mellitus with other specified complication; E11.65 Type 2 diabetes mellitus with hyperglycemia; J96.10 Chronic respiratory failure, unspecified whether with hypoxia or hypercapnia; I82.501 Chronic embolism and thrombosis of unspecified deep veins of right lower extremity; E43 Unspecified severe protein-calorie malnutrition; I10 Essential (primary) hypertension; D64.9 Anemia, unspecified; R53.81 Other malaise; I69.954 Hemiplegia and hemiparesis following unspecified cerebrovascular disease affecting left non-dominant side; Z74.01 Bed confinement status

== ENCOUNTER → 2021-03-23 | Outpatient (RCR) | payer MEDICARE ==
[~2021-03-23] MED LIST changes: -LIDOCAINE/PRILOCAINE 2.5-2.5% KIT ONE
== END ==
LOC: WCC 02-23 16:21
PROVIDERS: ATTEND Internal Medicine
DX: L89.154 Pressure ulcer of sacral region, stage 4 (principal); E11.69 Type 2 diabetes mellitus with other specified complication; E11.65 Type 2 diabetes mellitus with hyperglycemia; J96.10 Chronic respiratory failure, unspecified whether with hypoxia or hypercapnia; I82.501 Chronic embolism and thrombosis of unspecified deep veins of right lower extremity; I10 Essential (primary) hypertension; E43 Unspecified severe protein-calorie malnutrition; D64.9 Anemia, unspecified; R53.81 Other malaise; I69.954 Hemiplegia and hemiparesis following unspecified cerebrovascular disease affecting left non-dominant side; Z74.01 Bed confinement status

== ENCOUNTER 2021-04-20 13:01 | Outpatient (RCR) | payer MEDICARE | END 2021-04-23 | LOC: WCC 13:01 | PROVIDERS: ATTEND Internal Medicine | DX: L89.154 Pressure ulcer of sacral region, stage 4 (principal); E11.69 Type 2 diabetes mellitus with other specified complication; E11.65 Type 2 diabetes mellitus with hyperglycemia; J96.10 Chronic respiratory failure, unspecified whether with hypoxia or hypercapnia; I82.501 Chronic embolism and thrombosis of unspecified deep veins of right lower extremity; I10 Essential (primary) hypertension; E43 Unspecified severe protein-calorie malnutrition; I69.954 Hemiplegia and hemiparesis following unspecified cerebrovascular disease affecting left non-dominant side; R53.81 Other malaise; D64.9 Anemia, unspecified; Z74.01 Bed confinement status ==

== ENCOUNTER → 2021-05-23 | Outpatient (RCR) | payer MEDICARE | LOC: WCC 04-27 12:41 | PROVIDERS: ATTEND Internal Medicine | DX: N30.41 Irradiation cystitis with hematuria (principal); T66.XXXA Radiation sickness, unspecified, initial encounter; R31.0 Gross hematuria; Y84.8 Other medical procedures as the cause of abnormal reaction of the patient, or of later complication, without mention of misadventure at the time of the procedure; N40.0 Benign prostatic hyperplasia without lower urinary tract symptoms; I69.951 Hemiplegia and hemiparesis following unspecified cerebrovascular disease affecting right dominant side; J44.9 Chronic obstructive pulmonary disease, unspecified; I10 Essential (primary) hypertension; H91.23 Sudden idiopathic hearing loss, bilateral; E78.5 Hyperlipidemia, unspecified; E03.9 Hypothyroidism, unspecified; Z01.810 Encounter for preprocedural cardiovascular examination; Z01.811 Encounter for preprocedural respiratory examination; Z85.46 Personal history of malignant neoplasm of prostate ==

== ENCOUNTER 2021-06-22 15:25 | Outpatient (RCR) | payer MEDICARE | END 2021-06-23 | LOC: WCC 15:25 | PROVIDERS: ATTEND Internal Medicine | DX: L89.154 Pressure ulcer of sacral region, stage 4 (principal); U07.1 COVID-19; E11.69 Type 2 diabetes mellitus with other specified complication; E11.65 Type 2 diabetes mellitus with hyperglycemia; J96.10 Chronic respiratory failure, unspecified whether with hypoxia or hypercapnia; I82.501 Chronic embolism and thrombosis of unspecified deep veins of right lower extremity; I10 Essential (primary) hypertension; D64.9 Anemia, unspecified; I69.954 Hemiplegia and hemiparesis following unspecified cerebrovascular disease affecting left non-dominant side; E43 Unspecified severe protein-calorie malnutrition; R53.81 Other malaise; Z74.01 Bed confinement status ==

== ENCOUNTER 2021-07-23 11:10 | Outpatient (RCR) | payer MEDICARE, OTHER ==
[~2021-07-23 11:10] MED LIST changes: +LIDOCAINE/PRILOCAINE 2.5-2.5% KIT ONE
== END 2021-07-24 ==
LOC: WCC 11:10
PROVIDERS: ATTEND Internal Medicine
DX: L89.154 Pressure ulcer of sacral region, stage 4 (principal); E11.69 Type 2 diabetes mellitus with other specified complication; E11.65 Type 2 diabetes mellitus with hyperglycemia; U07.1 COVID-19; J96.10 Chronic respiratory failure, unspecified whether with hypoxia or hypercapnia; I82.501 Chronic embolism and thrombosis of unspecified deep veins of right lower extremity; D64.9 Anemia, unspecified; E43 Unspecified severe protein-calorie malnutrition; I10 Essential (primary) hypertension; I69.954 Hemiplegia and hemiparesis following unspecified cerebrovascular disease affecting left non-dominant side; R53.81 Other malaise; Z74.01 Bed confinement status

== ENCOUNTER 2021-08-22 10:44 | Outpatient (RCR) | payer MEDICARE, MEDICAID ==
[~2021-08-22 10:44] MED LIST changes: -LIDOCAINE/PRILOCAINE 2.5-2.5% KIT ONE
== END 2021-08-23 ==
LOC: WCC 10:44
PROVIDERS: ATTEND Internal Medicine
DX: L89.154 Pressure ulcer of sacral region, stage 4 (principal); U07.1 COVID-19; J96.10 Chronic respiratory failure, unspecified whether with hypoxia or hypercapnia; E11.69 Type 2 diabetes mellitus with other specified complication; E11.65 Type 2 diabetes mellitus with hyperglycemia; I82.501 Chronic embolism and thrombosis of unspecified deep veins of right lower extremity; I10 Essential (primary) hypertension; D64.9 Anemia, unspecified; R53.81 Other malaise; E43 Unspecified severe protein-calorie malnutrition; I69.954 Hemiplegia and hemiparesis following unspecified cerebrovascular disease affecting left non-dominant side; Z74.01 Bed confinement status

== ENCOUNTER 2021-09-21 11:37 | Outpatient (RCR) | payer MEDICARE | END 2021-09-23 | LOC: WCC 11:37 | PROVIDERS: ATTEND Internal Medicine | DX: L89.154 Pressure ulcer of sacral region, stage 4 (principal); E11.69 Type 2 diabetes mellitus with other specified complication; E11.65 Type 2 diabetes mellitus with hyperglycemia; U07.1 COVID-19; J96.10 Chronic respiratory failure, unspecified whether with hypoxia or hypercapnia; I82.501 Chronic embolism and thrombosis of unspecified deep veins of right lower extremity; I10 Essential (primary) hypertension; D64.9 Anemia, unspecified; R53.81 Other malaise; E43 Unspecified severe protein-calorie malnutrition; I69.954 Hemiplegia and hemiparesis following unspecified cerebrovascular disease affecting left non-dominant side; Z74.01 Bed confinement status ==

== ENCOUNTER 2021-10-12 14:06 | Outpatient (RCR) | payer MEDICARE, OTHER ==
[~2021-10-12 14:06] MED LIST changes: +LIDOCAINE/PRILOCAINE 2.5-2.5% KIT ONE
== END 2021-10-23 ==
LOC: WCC 14:06
PROVIDERS: ATTEND Internal Medicine
DX: L89.154 Pressure ulcer of sacral region, stage 4 (principal); E11.65 Type 2 diabetes mellitus with hyperglycemia; E11.69 Type 2 diabetes mellitus with other specified complication; J96.10 Chronic respiratory failure, unspecified whether with hypoxia or hypercapnia; U07.1 COVID-19; I82.501 Chronic embolism and thrombosis of unspecified deep veins of right lower extremity; I10 Essential (primary) hypertension; E43 Unspecified severe protein-calorie malnutrition; D64.9 Anemia, unspecified; R53.81 Other malaise; I69.954 Hemiplegia and hemiparesis following unspecified cerebrovascular disease affecting left non-dominant side; Z74.01 Bed confinement status